=== PATIENT | female | born 1945 | race Caucasian/White ===

== ENCOUNTER 2024-01-31 09:19 | Emergency (ER) | payer MEDICARE, OTHER, SELFPAY ==
[2024-01-31 09:26] VITALS: BP 161/81; PULSE 62; RESP 18; TEMP 36.7; O2SAT 97; BMI 40.0
--- NOTE | 2024-01-31 09:43 | CRLHL7_ITS ---
For Patients: As a result of the Century Cures Act, medical imaging exams and procedure reports are released immediately into your electronic medical record. You may view this report before your referring provider. If you have questions, please contact your health care provider. Indication: Lateral hip pain. Technique: AP pelvis and 2 view(s) of the left hip. Comparison: None available. 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 Visualized hardware is intact. Left hip alignment is anatomic. No evidence of hardware complication. There is mild osseous irregularity at the greater trochanters without definite displaced fracture identified. Moderate degenerative changes of the pubic symphysis and sacroiliac joints. Severe lower lumbar degenerative disc disease. Partial sacralization of the right L5 transverse process. Impression: 1. No definite fracture identified. 2. Osseous irregularity of the greater trochanters is favored to be postoperative; however, comparison with prior postoperative imaging would be beneficial to determine stability of this finding. 3. Severe lower lumbar degenerative disc disease. Dictated by Florinda Chau MD @ 01/31/2024 10:35:03 AM (Electronically Signed)
--- NOTE | 2024-01-31 11:11 | ED_ITS ---
HPI - General Adult General Date Seen: 01/31/24 Chief complaint: Extremity Pain/Injury, Lower Stated complaint: LT leg pain Time Seen by Provider: 01/31/24 09:34 Source: patient Mode of arrival: ambulatory Limitations: no limitations History of Present Illness HPI narrative: Patient is a 78-year-old female presenting for left hip pain. She states the pain started this morning in starts in her left lateral hip and goes down to her knee. Denies having this kind of pain before but does states she has a history of pain around this area. She had a hip replacement done 2 years ago through [facility] and had to do physical therapy after that due to muscle weakness. She denies any injuries. She was also concerned because she has a recent tooth infection and was concerning could be in her hip to. States all pain is on the lateral aspect in is no groin pain. Denies fevers, chills, weakness. Has been able to ambulate. Pain is slightly improved so for this morning. Related Data Home Medications ?Medication ?Instructions ?Recorded ?Confirmed amitriptyline 25 mg tablet 25 mg PO QPM 01/31/24 01/31/24 ergocalciferol (vitamin D2) 1,250 1,250 mcg PO 01/31/24 mcg (50,000 unit) capsule levothyroxine 137 mcg tablet 137 mcg PO DAILY 01/31/24 01/31/24 lisinopril 10 1 tab PO DAILY 01/31/24 01/31/24 mg-hydrochlorothiazide 12.5 mg tablet metformin 1,000 mg tablet 1,000 mg PO BID 01/31/24 01/31/24 naproxen 500 mg tablet 500 mg PO BID PRN moderate pain 01/31/24 01/31/24 omeprazole 20 mg capsule,delayed 20 mg PO QPM 01/31/24 01/31/24 release Allergies Allergy/AdvReac Type Severity Reaction Status Date / Time doxycycline Allergy Verified 01/31/24 09:29 erythromycin base Allergy Verified 01/31/24 09:29 morphine Allergy Verified 01/31/24 09:29 Review of Systems Narrative: Pertinent systems reviewed and were negative unless stated in HPI PFSH PFSH Social History Smoking Status: Never smoker Do you use any of these nicotine containing products: None How often do you have a drink containing alcohol: never How often do you have six or more drinks on one occasion: Never AUDIT-C Alcohol total score: 0 Non-prescribed substance use: denies use service: No Exam Narrative: Exam Narrative: Const: Well-nourished, Well-developed, in mild distress Eyes: PERRL, no conjunctival injection, and symmetrical lids HENT: Atraumatic external nose and ears. Moist mucous membranes. MSK:Extremities w/o deformity, Normal Active ROM, tenderness all down the lateral aspect of the left leg. No groin tenderness, no posterior hip tenderness. Skin: Warm, Dry. No rashes or lesions. Neuro: Normal Muscle tone, No focal neurological deficits. Psych: Awake, Alert, & Oriented x3. Appropriate mood and affect. Const: Vital Signs, click to edit/add: Vital Signs - 24 hr 01/31/24 09:26 Temperature 98.1 F Pulse Rate [Right Pulse Oximeter] 62 Respiratory Rate 18 Blood Pressure [Ri ght Upper Arm] 161/81 H Pulse Oximetry 97 Oxygen Delivery Me thod Room Air Course Vital Signs Vital signs: Initial Vital Signs Temperature 98.1 F 01/31/24 09:26 Temperature Source Temporal Artery Scan 01/31/24 09:26 Pulse Rate 62 01/31/24 09:26 Respiratory Rate 18 01/31/24 09:26 Blood Pressure 161/81 H 01/31/24 09:26 Blood Pressure Mean 107 H 01/31/24 09:26 Blood Pressure Position Sitting 01/31/24 09:26 Pulse Oximetry 97 01/31/24 09:26 Oxygen Delivery Method Room Air 01/31/24 09:26 Vital Signs Temperature 98.1 F 01/31/24 09:26 Pulse Rate 62 01/31/24 09:26 Respiratory Rate 18 01/31/24 09:26 Blood Pressure 161/81 H 01/31/24 09:26 Pulse Oximetry 97 01/31/24 09:26 Oxygen Delivery Method Room Air 01/31/24 09:26 Temperature 98.1 F 01/31/24 09:26 Pulse Rate 62 01/31/24 09:26 Respiratory Rate 18 01/31/24 09:26 Blood Pressure 161/81 H 01/31/24 09:26 Pulse Oximetry 97 01/31/24 09:26 Oxygen Delivery Method Room Air 01/31/24 09:26 Medical Decision Making MDM Narrative Medical decision making narrative: Patient is a 78-year-old female presenting for lateral left thigh and hip pain. Since there is no specific pinpoint area of tenderness over the bursa, bursitis seems less likely. Considering his entire anterior lateral aspect of the leg this is likely ordered tensor fascial reyna syndrome. I will do an x-ray to better evaluate. Seems very unlikely to be in kind any hip joint issue as the pains all lateral and superficial. X-ray reviewed by myself and the radiologist just social os is irregular the greater trochanter is likely postoperative. Unable to compare to previous images. Patient is doing well at this time though and does states she is allowed to take ibuprofen home so I will inform her to take Tylenol and ibuprofen for pain and have close follow-up with her surgeon. She states she is agreeable to this plan. Imaging Data Left hip x-ray: Radiologist's impression: 1. No definite fracture identified. 2. Osseous irregularity of the greater trochanters is favored to be postoperative; however, comparison with prior postoperative imaging would be beneficial to determine stability of this finding. 3. Severe lower lumbar degenerative disc disease. 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 There likely refer you for physical therapy and stretching exercises. Take Tylenol and ibuprofen for pain. Ibuprofen specifically, along with other NSAIDs, well I believe help the most due to her anti-inflammatory effect. Return to emergency department for any new or worsening symptoms. Prescriptions: No Action levothyroxine 137 mcg tablet 137 mcg PO DAILY amitriptyline 25 mg tablet 25 mg PO QPM metformin 1,000 mg tablet 1,000 mg PO BID omeprazole 20 mg capsule,delayed release(DR/EC) 20 mg PO QPM ergocalciferol (vitamin D2) 1,250 mcg (50,000 unit) capsule 1,250 mcg PO lisinopril-hydrochlorothiazide 10-12.5 mg tablet 1 tab PO DAILY naproxen 500 mg tablet 500 mg PO BID PRN (Reason: moderate pain) Follow Up/Referrals: Herb Herman MD [Primary Care Provider] - Stand Alone Forms: [employer] Info Instructions
== END 2024-01-31 11:24 | disposition home or self-care (01) ==
PROVIDERS: Emergency Provider Student in an Organized Health Care Education/Training Program; PCP Family Medicine
DX: M76.32 Iliotibial band syndrome, left leg (principal)
CPT/HCPCS: 73502; 99282; 99283

== ENCOUNTER 2024-02-02 10:13 | Outpatient (REF) | payer MEDICARE, OTHER, SELFPAY ==
[2024-02-02 10:52] LABS: Basophils Absolute Auto 0.04 K/uL (0.00-0.30); Basophils Percent Auto 0.5 % (0.0-3.0); Eosinophils Absolute Auto 0.28 K/uL (0.00-0.50); Eosinophils Percent Auto 3.4 % (0.0-7.0); Hematocrit 41.1 % (33.0-51.0); Hemoglobin* 13.2 gm/dL (12.0-16.0); Immature Granulocytes Abs Auto 0.01 K/uL (0.00-0.30); Immature Granulocytes Pct Auto 0.1 %; Lymphocytes Absolute Auto 1.93 K/uL (0.90-2.90); Lymphocytes Percent Auto 23.3 % (20-44); Mean Corpuscular HGB Conc 32 gm/dL (32-36); Mean Corpuscular Hemoglobin 31 pg (26-34); Mean Corpuscular Volume 95 fL (80-100); Monocytes Percent Auto 6.1 % (0.0-11.0); Neutrophils Absolute Auto 5.53 K/uL (1.7-7.0); Neutrophils Percent Auto 66.6 % (42.0-72.0); Platelet Count* 160 K/uL (140-440); RDW Coefficient of Variation % 12.5 % (11.5-15.5); Red Blood Count 4.32 m/uL (4.00-5.20)
[2024-02-02 11:00] LABS: Slide Review Reflex No
[2024-02-02 11:19] LABS: C Reactive Protein* 0.6 mg/dL (0.5-1.0)
[2024-02-02 11:44] LABS: Erythrocyte SedimentationRate* 26 mm/hr (2-20)
== END 2024-02-02 10:14 | disposition home or self-care (01) ==
LOC: NPINS 10:13
PROVIDERS: PCP Family Medicine; Visit Provider Physician Assistant
DX: M25.559 Pain in unspecified hip (principal)
CPT/HCPCS: 85025; 85651; 86140

== ENCOUNTER 2024-10-02 10:00 | Observation (INO) | payer MEDICARE, OTHER, SELFPAY ==
--- OUTSIDE RECORDS SUMMARY | 2024-09-10 | XMS_ITS | Encounter Summary ---
Author Organization [facility] Address [address] [place] [address]. [place] [address] Care Team Providers Care Archives Technician Name Role Phone Herb Herman MD Primary Care Provider [phone] Herb Herman MD Unavailable Trent Qureshi MD Unavailable [phone] Encounter Details Date Type Department Care Team (Late st Contact Info) Description 09/10/2024 Ancillary Procedure [facility] External Imaging [address] [place] [phone] Non-Fv Credentialed Provider, Radiology Social History Tobacco [...] any clubs o r organizations such as pentecostalism groups, unions, fraternal or athletic groups, or [...] Answer Date Recorded PHQ-2 Score 0 05/02/2024 [facility] [...] in an abandoned building, in an overnight usp, or couch-surfing.) Yes 04/25/2023 Are you worried [...] AM CDT Legal Sex Female 3:11 AM COLLECTION ADVISOR Gender Identity Female 01/16/2019 8:38 AM CDT Sexual Orientation Choose not to disclose 2021 11:32 AM COLLECTION ADVISOR 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 file documented as of this encounter Plan of Treatment Upcoming Encounters Date Type Department Care Team (Late st Contact Info) Description 10/08/2024 1:30 PM CDT Therapy Visit [address] [phone] Sammy Villa MD [address] [place] [phone] Christopher Ge, PT 10/16/2024 9:20 AM CDT Therapy Visit [address] [phone] Sammy Villa MD [address] [place] [phone] Christopher Ge, PT 10/22/2024 11:40 AM CDT Therapy Visit [address] [phone] Sammy Villa MD [address] [place] [phone] Christopher Ge, PT documented as of this encounter Procedures Procedure [...] Total Score: 0 05/02/19 25 10:13 AM COLLECTION ADVISOR documented as of this encounter Care Teams Archives Technician Relationship Specialty [place] [address] [place] [address] PCP - General Family Medicine 12/24/20 [place] [address] [place] [address] Assigned PCP 01/04/21 Trent Qureshi MD [facility] [address] [place] [address] Orthopaedic Surgery 09/16/21 documented as of this encounter
--- OUTSIDE RECORDS SUMMARY | 2024-09-10 00:05 | XMS_ITS | Encounter Summary ---
Author Organization [place] Address [address] [place] [address]. [place] [address] Care Team Providers Care Residential Caregiver Name Role Phone Herb Herman MD Primary Care Provider [phone] Herb Herman MD Unavailable Trent Qureshi MD Unavailable [phone] Encounter Details Date Type Department Care Team (Late st Contact Info) Description 09/10/2024 12:05 AM CDT Ancillary Procedure [facility] External Imaging [address] [place] [phone] Non-Fv Credentialed Provider, Radiology Social History Tobacco [...] often do you attend chur ch or congregational services? 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 file documented as of this encounter Plan of Treatment Upcoming Encounters Date Type Department Care Team (Late st Contact Info) Description 10/08/2024 1:30 PM CDT Therapy Visit [address] [phone] Sammy Villa MD [address] [place] [id number] Christopher Ge, PT 10/16/2024 9:20 AM CDT Therapy Visit [address] [phone] Sammy Villa MD [address] [place] [address] Christopher Ge, PT 10/22/2024 11:40 AM CDT Therapy Visit [address] [phone] Sammy Villa MD [address] [place] [address] Christopher Ge PT documented as of this encounter Procedures Procedure Name Priority Date/Time Associated Diagnosis Comments XR EXTERNAL IMAGING SPINE Routine 09/10/2024 12:05 AM CDT documented in this encounter Results * XR External Imaging Spine (09/10/2024 12:05 AM CDT) Narrative Service Account, Ob Benny - 09/13/2024 12:24 PM CDT Images were [...] Total Score: 0 05/02/19 25 10:13 AM PAPER BAG MAKER documented as of this encounter Care Teams Residential Caregiver Relationship Specialty [place] [address] [place] [address] PCP - General Family Medicine 12/24/20 [place] [address] [place] [address] Assigned PCP 01/04/21 Trent Qureshi MD [facility] [address] [place] [address] Orthopaedic Surgery 09/16/21 documented as of this encounter
--- OUTSIDE RECORDS SUMMARY | 2024-09-19 14:20 | XMS_ITS | Encounter Summary ---
Author Organization [place] Address [address] [facility] [place] [address] Care Team Providers Care Barrel Handler Name Role Phone Herb Herman MD Primary Care Provider [phone] Herb Herman MD Unavailable Trent Qureshi MD Unavailable [phone] Reason for Referral * Consultation (Routine: Next available opening) - Pending Review Specialty Diagnoses / Procedures Referred By Contac t Referred To Contact Diagnoses Lumbar stenosis with neurogenic claudication Sammy Villa MD [address] [address] Phone: tel: fax: Referral ID Status Reason Start Date Expiration Date V isits Requested Visits Authorized [id number] Pending Review 09/19/2024 09/19/2025 1 1 Question Answer Referral Type: Procedure Procedure: Epidural (Advanced imaging required in the last 3 years) Location: Lumbar Injection Type: Interlaminar ARTHUR Level: L3-4 Has the patient had a CT or MRI of the area of concern within the last 12 months? Yes Patient Scheduling Instructions: Our [facility] Orthopedic Trolley Wire Installer team will contact you via phone, text, email or MyChart within 2 business days to help you schedule your appointment, or you may contact the Trolley Wire Installer Team at . Additional Information: L3-4 or L4-5 ARTHUR Comments Please be aware that coverage of these services is subject to the terms and limitations of your health insurance plan. Call member services at your health plan with any benefit or coverage questions. Our [facility] Orthopedic Trolley Wire Installer team will contact you via phone, text, email or MyChart within 2 business days to help you schedule your appointment, or you may contact the Trolley Wire Installer Team at . * Rehab Therapy Physical Therapy (Routine: Next available opening) - Pending Review Specialty Diagnoses / Procedures Referred By Ambreen allen Referred To Contact Diagnoses Lumbar stenosis with neurogenic claudication Sammy Villa MD [address] [facility] [address] [place] [address] Phone: tel: fax: Referral ID Status Reason Start Date Expiration Date V isits Requested Visits Authorized [id number] Pending Review 09/19/2024 09/19/2025 1 1 Question Answer Course of Action: Evaluation and Treatment Specialty Services: Per Associated Diagnosis Patient Scheduling Instructions: [facility] will call you to coordinate your care as prescribed by your provider. If you don't hear from a correspondence representative within 2 business days, please call . Comments Please be aware that coverage of these services is subject to the terms and limitations of your health insurance plan. Call member services at your health plan with any benefit or coverage questions. [facility] will call you to coordinate your care as prescribed by your provider. If you don't hear from a correspondence representative within 2 business days, please call . Reason for Visit * Reason Comments Consult Low back pain * Consultation (Routine: Next available opening) - Closed Specialty Diagnoses / Procedures Referred By Contac t Referred To Contact Orthopedics Diagnoses Low back pain Douglas Hernandez MD [facility] [address] [facility] [address] [place] [address] Phone: tel: fax: Referral ID Status Reason Start Date Expiration Date Visits Re quested Visits Authorized [id number] Closed 09/11/2024 09/11/2025 1 1 Encounter Details Date Type Department Care Team (Late st Contact Info) Description 09/19/2024 2:20 PM CDT Office Visit [facility] [place] [address] [facility] [address] [place] [phone] Douglas Hernandez MD [facility] [address] [place], [place] [address] Sammy Villa MD [address] [facility] [address] [facility] [address] [place], [place] [address] Lumbar stenosis with neurogenic claudication (Primary Dx); [...] How often do you attend chur or taoism services? More than 4 times per year 06/08/2021 Do you belong to any clubs o r organizations such as baptist groups, unions, fraternal or athletic groups, or [...] Answer Date Recorded PHQ-2 Score 0 05/02/2024 [place] [employer] Occupat ional Health - Occupational Stress [...] in an abandoned building, in an overnight residential, or couch-surfing.) Yes 04/25/2023 Are you worried [...] AM CDT Legal Sex Female 3:11 AM GOLF BALL MARKER Gender Identity Female 01/16/2019 8:38 AM CDT Sexual Orientation Choose not to disclose 2021 11:32 AM GOLF BALL MARKER Occupation Industry Job Start Date Job End [...] if symptoms persist after this timeframe. Our [facility] Trolley Wire Installer team will contact you via phone, text, email or MyChart within 2 business days to help you schedule your appointment, or you may contact the Trolley Wire Installer Team at . Order placed for physical therapy. You can call the phone number highlighted in the order to schedule your appointment. Please call our clinic if symptoms persist after your course of physical therapy. If you have not heard from the scheduling office within 2 business days, please call [phone] for [facility], for [place] and [phone] [facility]. Please call us if you have any further questions or concerns. [facility] documented in this encounter [...] Due to statin intolerance vitamin D2 (ERGOCALCIFEROL) 41730 units (1250 mcg) capsule TAKE ONE CAPSULE [...] Description 10/08/2024 1:30 PM CDT Therapy Visit [address] [phone] Sammy Villa MD [address] [address] Christopher Ge, PT 10/16/2024 9:20 AM CDT Therapy Visit [address] [address] Sammy Villa MD [address] [place] [address] Christopher Ge, PT 10/22/2024 11:40 AM CDT Therapy Visit [address] [phone] Sammy Villa MD [address] [place] [address] Christopher Ge, PT Scheduled Referrals Name Type Priority Associated Diagnoses Orde r Schedule Physical Therapy Trolley Wire Installer Referral Referral Routine: Next available opening Lumbar stenosis with neurogenic claudication Expected: 09/19/2024 (Approximate), Expires: 09/19/2025 Spine Trolley Wire Installer Referral Referral Routine: Next available opening Lumbar [...] Total Score: 0 05/02/19 25 10:13 AM GOLF BALL MARKER documented as of this encounter Care Teams Barrel Handler Relationship Specialty [place] [address] [place] [address] PCP - General Family Medicine 12/24/20 [place] [address] [facility] [place] [address] Assigned PCP 01/04/21 Trent Qureshi MD [facility] [address] [place] [address] Orthopaedic Surgery 09/16/21 documented as of this encounter
--- OUTSIDE RECORDS SUMMARY | 2024-09-26 10:15 | XMS_ITS | Encounter Summary ---
Author Organization [place] Address [facility] [place] [address] Care Team Providers Care Aircraft Engine Mechanic Name Role Phone Herb Herman MD Primary Care Provider [phone] Herb Herman MD Unavailable Trent Qureshi MD Unavailable [phone] Reason for Referral * Clinically Administered Medications (Routine) - Closed Specialty Diagnoses / Procedures Referred By Contac t Referred To Contact Diagnoses unknown [place] [address] [place] [address] Phone: tel: fax: Referral ID Status Reason Start Date Expiration Date Visits Re quested Visits Authorized [id number] Closed 09/26/2024 09/26/2025 1 1 Reason for Visit * Reason Comments Pain * Consultation (Routine: Next available opening) - Pending Review Specialty Diagnoses / Procedures Referred By Contac t Referred To Contact Diagnoses Lumbar stenosis with neurogenic claudication Sammy Villa MD [address] [facility] [address] [place] [address] Phone: tel: fax: Referral ID Status Reason Start Date Expiration Date V isits Requested Visits Authorized [id number] Pending Review 09/19/2024 09/19/2025 1 1 Encounter Details Date Type Department Care Team (Latest Contact Info) Description 09/26/2024 10:15 AM CDT Radiology Injection Office Visit [facility] [place] [address] [place] [address] [address] [place], [place] [address] Sammy Villa MD [address] [facility] [address] [place] [address] [place] [address] [place] [address] Lumbar radiculopathy (Primary Dx); Lumbar stenosis with [...] week 06/08/2021 How often do you attend [facility] or latter-day services? More than 4 times per year 06/08/2021 Do you belong to any clubs o r organizations such as faith groups, unions, fraternal or athletic groups, or [...] Answer Date Recorded PHQ-2 Score 0 05/02/2024 [facility] [place] of Occupat ional Health - Occupational Stress [...] in an abandoned building, in an overnight half-way, or couch-surfing.) Yes 04/25/2023 Are you worried [...] AM CDT Legal Sex Female 3:11 AM MEDICAL RECEPTION SPECIALIST Gender Identity Female 01/16/2019 8:38 AM CDT Sexual Orientation Choose not to disclose 2021 11:32 AM MEDICAL RECEPTION SPECIALIST Occupation Industry Job Start Date Job End [...] Velazquez RN - 09/26/2024 10:15 AM CDT [facility] Procedure Discharge Instructions Today [...] pain center line during work hours at [phone] on-call physician after hours at [phone]: -Fever over 100 degree F -Swelling, bleeding, [...] from the original note were not included. [facility] Pain Management Center - [...] the procedure. Diagnosis: Lumbar spondylosis; Lumbar radiculitis/radiculopathy Primary Therapist: Daniel Dunlap MD Anesthesia: none Indications: Angela [...] 7.1 MRI LUMBAR SPINE was done @ [facility] on 02/15/2024 and was reviewed - [...] any questions or NO to having a transit mixer driver Please complete laminated checklist and leave [...] oral steroids? NO Do you have a transit mixer driver? Yes Are you or ? Not Applicable Have you received any vaccinations in the last week? NO Vitals: B/P 172/78 Manual Recheck: B/P 148/68 Notify provider and RNs if systolic BP >170, diastolic BP >100, P >100 or O2 sats < 90% Mikala Staley MA [facility] * Ruma Velazquez [...] Yes Signature/Title: Ruma R Yelle, RN RN Sewer And Inspector [facility] [place] documented in this encounter Plan of Treatment Upcoming Encounters Date Type Department Care Team (Late st Contact Info) Description 10/08/2024 1:30 PM CDT Therapy Visit [address] [phone] Sammy Villa MD [address] [place] [address] Christopher Ge, PT 10/16/2024 9:20 AM CDT Therapy Visit [address] [address] Sammy Villa MD [address] [place] [address] Christopher Ge, PT 10/22/2024 11:40 AM CDT Therapy Visit [address] [address] Sammy Villa MD [address] [place] [address] Christopher Ge, PT documented as of this [...] from the original result were not included. [facility] Pain Management Center - [...] the procedure. Diagnosis: Lumbar spondylosis; Lumbar radiculitis/radiculopathy Primary Therapist: Daniel Dunlap MD Anesthesia: none Indications: Angela [...] evaluation. DANIEL DUNLAP MD Pain Management Daniel uDnlap MD IM PAIN MANAGEMENT ORDERABLES Final Result documented in [...] Depression Total Score: 0 05/02/19 10:13 AM MEDICAL RECEPTION SPECIALIST documented as of this encounter Care Teams Aircraft Engine Mechanic Relationship Specialty [place] [address] [place] [address] PCP - General Family Medicine 12/24/20 [place] [address] [place] [address] Assigned PCP 01/04/21 Trent Qureshi MD [facility] [address] [place] [address] Orthopaedic Surgery 09/16/21 documented as of this encounter
[2024-10-02] VITALS (24 sets, daily range): BP systolic 147–188; BP diastolic 60–76; PULSE 53–74; RESP 16–20; TEMP 36.3–37.1; O2SAT 96–99; BMI 39.1
--- NOTE | 2024-10-02 10:15 | CRLHL7_ITS ---
For Patients: As a result of the Century Cures Act, medical imaging exams and procedure reports are released immediately into your electronic medical record. You may view this report before your referring provider. If you have questions, please contact your health care provider. INDICATION: Lightheadedness. TECHNIQUE: Noncontrast CT of the head with multiplanar reconstruction utilizing bone and soft tissue algorithms. COMPARISON: None available. FINDINGS: No acute intracranial hemorrhage. The melgar-white matter interface is preserved. The ventricles are normal in size. No abnormal extra-axial fluid collection is identified. Normal calvarium and skull base. Unremarkable orbits. The paranasal sinuses and mastoid air cells are clear. IMPRESSION: No acute intracranial abnormality. Please note that all CT scans at this facility use dose modulation, iterative reconstruction, and/or weight-based dosing when appropriate to reduce radiation dose to as low as reasonably achievable. Dictated by Hao Petersen MD @ 10/02/2024 10:46:40 AM (Electronically Signed)
--- OUTSIDE RECORDS SUMMARY | 2024-10-02 10:33 | XMS_ITS | Encounter Summary ---
Author Organization [place] Address [address] [place] [address] Care Team Providers Care Interventional Tech Name Role Phone Daniel Plaza MD Primary Care Provider Daniel Plaza MD Unavailable Daniel Plaza MD Unavailable Stan Barnes MD Unavailable [phone] Herb Herman MD Primary Care Provider [phone] Herb Herman MD Unavailable Stan Barnes MD Unavailable [phone] Trent Qureshi MD Unavailable [phone] Encounter Details Date Type Department Care Team (Late st Contact Info) Description 06/23/2011 [facility] [place] Medical Advice [address] [address] Daniel Plaza MD [address] [place] [address] Social History Tobacco Use Types Packs/Day Years Used Date Smoking Tobacco: Never Smokeless Tobacco: Never Alcohol Use Standard Drinks/Week Comments No 0 (1 standard drink = 0.6 oz pur e alcohol) Comments No Sex and Gender Information Value Date Recorded Sex Assigned at Female 01/16/2019 8:38 AM CDT Legal Sex Female 3:11 AM EXPLOSIVE ORDNANCE DISPOSAL TECHNICIAN Gender Identity Female 01/16/2019 8:38 AM CDT Sexual Orientation Choose not to disclose 2021 11:32 AM EXPLOSIVE ORDNANCE DISPOSAL TECHNICIAN documented as of this encounter Plan of Treatment Upcoming Encounters Date Type Department Care Team (Late st Contact Info) Description 10/08/2024 1:30 PM CDT Therapy Visit [address] [address] Sammy Villa MD [address] [place] [address] Christopher Ge, PT 10/16/2024 9:20 AM CDT Therapy Visit [address] [address] Sammy Villa MD [address] [place] [address] Christopher Ge, PT 10/22/2024 11:40 AM CDT Therapy Visit [address] [address] Sammy Villa MD [address] [place] [address] Christopher Ge, PT documented as of this encounter Visit Diagnoses Not on filedocumented in this encounter Care Teams Interventional Tech Relationship Specialty Start Date End Date Daniel Plaza MD [address] [place] [phone] PCP - General 06/29/10 12/23/20 Daniel Plaza MD [address] [place] [phone] PCP - Assigned PCP 02/05/08 06/13/18 [place] [address] [place] [address] PCP - General Family Medicine 12/24/20 Daniel Plaza MD [address] [place] [phone] Assigned PCP 01/13/12 01/03/21 Stan Barnes MD [address] [place] [address] Assigned Surgical Provider 02/01/20 07/19/20 [place] [address] [place] [address] Assigned PCP 01/04/21 Stan Barnes MD [address] [place] [address] Assigned Surgical Provider 08/30/21 08/31/23 Trent Qureshi MD [facility] [address] [place] [address]405 Orthopaedic Surgery 09/16/21 documented as of this encounter
--- OUTSIDE RECORDS SUMMARY | 2024-10-02 10:33 | XMS_ITS | Encounter Summary ---
Author Organization [place] Address [address] [place] [address] Care Team Providers Care Spring Coiler Name Role Phone Daniel Torres MD Primary Care Provider Daniel Torres MD Unavailable Daniel Torres MD Unavailable Stan Barnes MD Unavailable [phone] Herb Herman MD Primary Care Provider Herb Herman MD Unavailable Stan Barnes MD Unavailable [phone] Trent Qureshi MD Unavailable [phone] Encounter Details Date Type Department Care Team (Late st Contact Info) Description 09/08/[address] [address] Daniel Torres MD [address] [place] [address] DJD ; HYPERLIPIDEMIA Social History Tobacco Use Types Packs/Day Years Used Date Smoking Tobacco: Never Alcohol Use Standard Drinks/Week Comments Yes 0 (1 standard drink = 0.6 oz pur e alcohol) social Comments No Sex and Gender Information Value Date Recorded Sex Assigned at Female 01/16/2019 8:38 AM CDT Legal Sex Female 3:11 AM PRINCIPAL CONSULTING ENGINEER Gender Identity Female 01/16/2019 8:38 AM CDT Sexual Orientation Choose not to disclose 2021 11:32 AM PRINCIPAL CONSULTING ENGINEER documented as of this encounter Miscellaneous Notes * Telephone Encounter - Vero Carr - 09/08/2007 2:01 PM [facility] Original authorizing provider: Savanna VILLALOBOS would like a refill of the following medications: SIMVASTATIN 80 MG OR TABS [DANIEL TORRES M.D.] CELEBREX 200 MG OR CAPS [DANIEL TORRES M.D.] Preferred pharmacy: [facility] Comment: I have requested my medications for the past two days. I have not received a response. With the weekend coming it sometimes takes longer for the pharmacy to fill the prescription. Please advise documented in this encounter Plan of Treatment Upcoming Encounters Date Type Department Care Team (Late st Contact Info) Description 10/08/2024 1:30 PM CDT Therapy Visit [address] [phone] Sammy Villa MD [address] [place] [address] Christopher Ge, PT 10/16/2024 9:20 AM CDT Therapy Visit [address] [address] Sammy Villa MD [address] [place] [address] Christopher Ge, PT 10/22/2024 11:40 AM CDT Therapy Visit [address] [phone] Sammy Villa MD 420 [facility] [address] [place], [place] [address] Christopher Ge, PT documented as of this encounter Visit Diagnoses Diagnosis DJD Generalized osteoarthrosis, unspecified site HYPERLIPIDEMIA Other and unspecified hyperlipidemia documented in this encounter Care Teams Spring Coiler Relationship Specialty Start Date End Date Daniel Torres MD [address] [place] [phone] PCP - General 06/29/10 12/23/20 Daniel Torres MD [address] [place] [phone] PCP - Assigned PCP 02/05/08 06/13/18 [place] [address] [place] [address] PCP - General Family Medicine 12/24/20 Daniel Torres MD [address] [place] [phone] Assigned PCP 01/13/12 01/03/21 Stan Barnes MD [address] [place] [address] Assigned Surgical Provider 02/01/20 07/19/20 [place] [address] [place] [address] Assigned PCP 01/04/21 Stan Barnes MD [address] [place] [address] Assigned Surgical Provider 08/30/21 08/31/23 Trent Qureshi MD [facility] [address] [place] [address] [phone] Orthopaedic Surgery 09/16/21 documented as of this encounter
--- OUTSIDE RECORDS SUMMARY | 2024-10-02 10:33 | XMS_ITS | Encounter Summary ---
Author Organization [place] Address [address] [place] [address] Care Team Providers Care Casting Associate Name Role Phone Daniel Plaza MD Primary Care Provider Daniel Plaza MD Unavailable [phone] Daniel Plaza MD Unavailable Stan Barnes MD Unavailable [phone] Herb Herman MD Primary Care Provider [phone] Herb Herman MD Unavailable Stan Barnes MD Unavailable [phone] Trent Stratton MD Unavailable [phone] Encounter Details Date Type Department Care Team (Late st Contact Info) Description 03/01/[address] [phone] Daniel Plaza MD [address] [place] [address] OP REPT (Primary Dx) Social History Tobacco Use Types Packs/Day Years Used Date Smoking Tobacco: Never Passive Smoke Exposure: Never Smokeless Tobacco: Never Alcohol Use Standard Drinks/Week Comments Never 0 (1 standard drink = 0.6 oz pur e alcohol) Comments No Sex and Gender Information Value Date Recorded Sex Assigned at Female 01/16/2019 8:38 AM CDT Legal Sex Female 3:11 AM POT OPERATOR Gender Identity Female 01/16/2019 8:38 AM CDT Sexual Orientation Choose not to disclose 2021 11:32 AM POT OPERATOR 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 POSTOPERATIVE DIAGNOSIS:Right knee degenerative joint disease. OPERATION :Right total knee arthroplasty. ANESTHESIA:Regional. COMPLICATIONS:None. HISTORY: Ms. Michael Lamar is a 57-year-old woman with right knee pain. Risks and alternatives were discussed with her, and she wished to proceed with the above-named procedure. All questions were answered, and consent was obtained. OPERATIVE COURSE: The patient was brought to the operating room where an anes thetic was placed. The right lower extremity was prepped and draped in the usual sterile fashion. I made a sharp incision straight anterior, and took a parapatellar median approach. I was not able to demario the patella. I therefore did a lateral release, and everted the patella. There was eburnated bone in the medial compartment. I went ahead and prepared the femoral side for a 65, and a 65 fit ni nicole. I prepared the tibia. I took 4 mm of bone from the medial side, which approximated 10 mm of b one from the lateral side. I made the cut. I preserved the PCL. I went ahead and performed trial re ductions. I liked a 67 baseplate the best. It came out into full extension with a 12, but was a lit tle bit tight as we flexed it. I therefore cemented my final components with a [address] I prepa red the patella. I initially measured a 20, and I cut it down to a 14, and placed a 31 button. I ce mented my final components with the [address]. I trialed a 12 and a 10, and I liked the 10 the bes t. It was stable in full extension, and easily flexed. I copiously irrigated. I placed a large franck in deeply. Ethibond was used in the medial parapatellar incision, 2-0 in the subcutaneous tissue, an d john in the skin. A bulky sterile dressing was applied. The patient tolerated the procedure we ll, and was returned to the recovery room in stable condition. All sponge and needle counts were correct at the end of the procedure. There were no known complications. TRENT STRATTON MD D: 06:24 MT: sb Document: [id number] [place], [place] Name: MICHAEL LAMAR OPERATIVE REPORT Page 2 of 2 LCN: [id number] DSC: [place], [place] Name: MICHAEL LAMAR MR#: : Procedure Date: [id number] 03/01/2003 Surgeon: TRENT STRATTON MD OPERATIVE REPORT Page 1 of 2 Electronically filed by Hu Porter 03/06/2003 10:43 AM documented in this encounter Plan of Treatment Upcoming Encounters Date Type Department Care Team (Late st Contact Info) Description 10/08/2024 1:30 PM CDT Therapy Visit [address] [address] Sammy Villa MD [address] [place] [address] Christopher Ge, PT 10/16/2024 9:20 AM CDT Therapy Visit [address] [address] Sammy Villa MD [address] [address] Christopher Ge, PT 10/22/2024 11:40 AM CDT Therapy Visit [facility] [address] [facility] [address] [place] [phone] Sammy Villa MD 420 [facility] 96 [place] [address] Christopher Ge, PT documented as of this encounter Visit Diagnoses Diagnosis OP REPT- Primary documented in this encounter Care Teams Casting Associate Relationship Specialty Start Date End Date Daniel Plaza MD [address] [place] [phone] PCP - General 06/29/10 12/23/20 Daniel Plaza MD [address] [place] [phone] PCP - Assigned PCP 02/05/08 06/13/18 [place] [address] [place] [address] PCP - General Family Medicine 12/24/20 aDniel Plaza MD [address] [place] [phone] Assigned PCP 01/13/12 01/03/21 Stan Barnes MD [address] [place] [address] Assigned Surgical Provider 02/01/20 07/19/20 [place] [address] [place] [address] Assigned PCP 01/04/21 Stan Barnes MD [address] [place] [address] 184375 Assigned Surgical Provider 08/30/21 08/31/23 Trent Stratton MD [facility] [address] [place] [address] 727355 Orthopaedic Surgery 09/16/21 documented as of this encounter
--- OUTSIDE RECORDS SUMMARY | 2024-10-02 10:33 | XMS_ITS | Encounter Summary ---
Author Organization [place] Address [address] [place] [address] Care Team Providers Care Senior Storage Engineer Name Role Phone Daniel Plaza MD Primary Care Provider Daniel Plaza MD Unavailable Daniel Plaza MD Unavailable Stan Barnes MD Unavailable [phone] Herb Herman MD Primary Care Provider Herb Herman MD Unavailable Stan Barnes MD Unavailable [phone] Trent Qureshi MD Unavailable [phone] Encounter Details Date Type Department Care Team (Late st Contact Info) Description 01/31/2006 [facility] [place] [address] [address] Daniel Plaza MD [address] [place] [phone] Social History Tobacco Use Types Packs/Day Years Used Date Smoking Tobacco: Never Alcohol Use Standard Drinks/Week Comments Yes 0 (1 standard drink = 0.6 oz pur e alcohol) social Comments No Sex and Gender Information Value Date Recorded Sex Assigned at Female 01/16/2019 8:38 AM CDT Legal Sex Female 3:11 AM DESIGN CENTER CONSULTANT Gender Identity Female 01/16/2019 8:38 AM CDT Sexual Orientation Choose not to disclose 2021 11:32 AM DESIGN CENTER CONSULTANT documented as of this encounter Plan of Treatment Upcoming Encounters Date Type Department Care Team (Late st Contact Info) Description 10/08/2024 1:30 PM CDT Therapy Visit [address] [address] Sammy Villa MD [address] [place] [address] Christopher Ge, PT 10/16/2024 9:20 AM CDT Therapy Visit [address] [address] Sammy Villa MD [address] [place] [address] Christopher Ge, PT 10/22/2024 11:40 AM CDT Therapy Visit [address] [address] Sammy Villa MD [address] [place] [address] Christopher Ge, PT documented as of this encounter Visit Diagnoses Not on filedocumented in this encounter Care Teams Senior Storage Engineer Relationship Specialty Start Date End Date Daniel Plaza MD [address] [place] [address] PCP - General 06/29/10 12/23/20 Daniel Plaza MD [address] [place] [phone] PCP - Assigned PCP 02/05/08 06/13/18 [place] [address] [place] [address] PCP - General Family Medicine 12/24/20 Daniel Plaza MD [address] [place] [phone] Assigned PCP 01/13/12 01/03/21 Stan Barnes MD [address] [place] [address] Assigned Surgical Provider 02/01/20 07/19/20 [place] [address] [place] [address] Assigned PCP 01/04/21 Stan Barnes MD [address] [place] [address] Assigned Surgical Provider 08/30/21 08/31/23 Trent Qureshi MD [facility] [address] [place] [address] 681105 Orthopaedic Surgery 09/16/21 documented as of this encounter
--- OUTSIDE RECORDS SUMMARY | 2024-10-02 10:33 | XMS_ITS | Encounter Summary ---
Author Organization [place] Address [address] [place] [address] Care Team Providers Care Used Equipment Sales Representative Name Role Phone Daniel Plaza MD Primary Care Provider Daniel Plaza MD Unavailable Daniel Plaza MD Unavailable [phone] Stan Barnes MD Unavailable [phone] Herb Herman MD Primary Care Provider [phone] Herb Herman MD Unavailable Stan Barnes MD Unavailable [phone] Trent Qureshi MD Unavailable [phone] Encounter Details Date Type Department Care Team (Latest Contact Info) Description 01/24/2016 [facility] [place] Medical Advice [address] [phone] Daniel Plaza MD [address] [place] [phone] Spinal stenosis of lumbar region with neurogenic claudication (Primary Dx) Social History Tobacco Use Types Packs/Day Years Used Date Smoking Tobacco: Never Smokeless Tobacco: Never Alcohol Use Standard Drinks/Week Comments No 0 (1 standard drink = 0.6 oz pur e alcohol) Comments No Sex and Gender Information Value Date Recorded Sex Assigned at Female 01/16/2019 8:38 AM CDT Legal Sex Female 3:11 AM BEZEL CUTTER Gender Identity Female 01/16/2019 8:38 AM CDT Sexual Orientation Choose not to disclose 2021 11:32 AM BEZEL CUTTER documented as of this encounter Plan of Treatment Upcoming Encounters Date Type Department Care Team (Late st Contact Info) Description 10/08/2024 1:30 PM CDT Therapy Visit [address] [phone] Sammy Villa MD [address] [address] Christopher Ge, PT 10/16/2024 9:20 AM CDT Therapy Visit [address] [address] Sammy Villa MD [address] [place] [address] Christopher Ge, PT 10/22/2024 11:40 AM CDT Therapy Visit [address] [address] Sammy Villa MD [address] [place] [address] Christopher Ge, PT documented as of this encounter Visit Diagnoses Diagnosis Spinal stenosis of lumbar region with neurogenic claudication- Primary Spinal stenosis, lumbar region, with neurogenic claudication documented in this encounter Additional Health Concerns Assessment Noted Time PHQ-9 Depression Total Score: 0 12/23/19 16 7:14 AM CDT documented as of this encounter Care Teams Used Equipment Sales Representative Relationship Specialty Start Date End Date Daniel Plaza MD [address] [place] [phone] PCP - General 06/29/10 12/23/20 Daniel Plaza MD [address] [place] [phone] PCP - Assigned PCP 02/05/08 06/13/18 [place] [address] [place] [address] PCP - General Family Medicine 12/24/20 Daniel Plaza MD [address] [place] [phone] Assigned PCP 01/13/12 01/03/21 Stan Barnes MD [address] [place] [address] Assigned Surgical Provider 02/01/20 07/19/20 [place] [address] [place] [address] Assigned PCP 01/04/21 Stan Barnes MD [address] [place] [address] Assigned Surgical Provider 08/30/21 08/31/23 Trent Qureshi MD [facility] [address] [place] [address] Orthopaedic Surgery 09/16/21 documented as of this encounter
--- OUTSIDE RECORDS SUMMARY | 2024-10-02 10:33 | XMS_ITS | Encounter Summary ---
Author Organization [place] Address [address] [place] [address] Care Team Providers Care Community Health Advisor Name Role Phone Daniel Plaza MD Primary Care Provider Daniel Plaza MD Unavailable [phone] Daniel Plaza MD Unavailable [phone] Stan Barnes MD Unavailable [phone] Herb Herman MD Primary Care Provider Herb Herman MD Unavailable Stan Barnes MD Unavailable [phone] Trent Qursehi MD Unavailable [phone] Encounter Details Date Type Department Care Team (Late st Contact Info) Description 03/01/2011 [facility] [address] [address] Rodolfo Cline Social History Tobacco Use Types Packs/Day Years Used Date Smoking Tobacco: Never Alcohol Use Standard Drinks/Week Comments No 0 (1 standard drink = 0.6 oz pur e alcohol) Comments No Sex and Gender Information Value Date Recorded Sex Assigned at Female 01/16/2019 8:38 AM CDT Legal Sex Female 3:11 AM COTTON HEADER Gender Identity Female 01/16/2019 8:38 AM CDT Sexual Orientation Choose not to disclose 2021 11:32 AM COTTON HEADER documented as of this encounter Plan of Treatment Upcoming Encounters Date Type Department Care Team (Late st Contact Info) Description 10/08/2024 1:30 PM CDT Therapy Visit [place] [phone] [address] [address] Sammy Villa MD [address] [address] Christopher Ge, PT 10/16/2024 9:20 AM CDT Therapy Visit [address] [address] Sammy Villa MD [address] [address] Christopher Ge, PT 10/22/2024 11:40 AM CDT Therapy Visit [address] [phone] Sammy Villa MD [address] [place] [address] Christopher Ge, PT documented as of this encounter Visit Diagnoses Not on filedocumented in this encounter Care Teams Community Health Advisor Relationship Specialty Start Date End Date Daniel Plaza MD [address] [place] [phone] PCP - General 06/29/10 12/23/20 Daniel Plaza MD [address] [place] [phone] PCP - Assigned PCP 02/05/08 06/13/18 [place] [address] [place] [address] PCP - General Family Medicine 12/24/20 Daniel Plaza MD [address] [place] [phone] Assigned PCP 01/13/12 01/03/21 Stan Barnes MD [address] [place] [address] Assigned Surgical Provider 02/01/20 07/19/20 [place] [address] [place] [address] Assigned PCP 01/04/21 Stan Barnes MD [address] [place] [address] Assigned Surgical Provider 08/30/21 08/31/23 Trent Qureshi MD [facility] [address] [place] [address] Orthopaedic Surgery 09/16/21 documented as of this encounter
--- OUTSIDE RECORDS SUMMARY | 2024-10-02 10:33 | XMS_ITS | Encounter Summary ---
Author Organization [place] Address [address] [place] [address] Care Team Providers Care Surgery Teacher Name Role Phone Daniel Plaza MD Primary Care Provider Daniel Plaza MD Unavailable Daniel Plaza MD Unavailable [phone] Stan Barnes MD Unavailable [phone] Herb Herman MD Primary Care Provider Herb Herman MD Unavailable Stan Barnes MD Unavailable [phone] Trent Qureshi MD Unavailable [phone] Encounter Details Date Type Department Care Team (Late st Contact Info) Description 05/18/2007 MyC Medical Advice [address] [phone] Daniel Plaza MD [address] [place] [phone] Social History Tobacco Use Types Packs/Day Years Used Date Smoking Tobacco: Never Alcohol Use Standard Drinks/Week Comments Yes 0 (1 standard drink = 0.6 oz pur e alcohol) social Comments No Sex and Gender Information Value Date Recorded Sex Assigned at Female 01/16/2019 8:38 AM CDT Legal Sex Female 3:11 AM SPORTS APPAREL INTERNSHIP Gender Identity Female 01/16/2019 8:38 AM CDT Sexual Orientation Choose not to disclose 2021 11:32 AM SPORTS APPAREL INTERNS[employer]IP documented as of this encounter Plan of Treatment Upcoming Encounters Date Type Department Care Team (Late st Contact Info) Description 10/08/2024 1:30 PM CDT Therapy Visit [address] [address] Sammy Villa MD [address] [place] [address] Christopher Ge, PT 10/16/2024 9:20 AM CDT Therapy Visit [address] [phone] Sammy Villa MD [address] [place] [address] Christopher Ge, PT 10/22/2024 11:40 AM CDT Therapy Visit [address] [address] Sammy Villa MD [address] [place] [address] Christopher Ge, PT documented as of this encounter Visit Diagnoses Not on filedocumented in this encounter Care Teams Surgery Teacher Relationship Specialty Start Date End Date Daniel Plaza MD [address] [place] [address] PCP - General 06/29/10 12/23/20 Daniel Plaza MD [address] [place] [phone] PCP - Assigned PCP 02/05/08 06/13/18 [place] [address] [place] [address] PCP - General Family Medicine 12/24/20 Daniel Plaza MD [address] [place] [phone] Assigned PCP 01/13/12 01/03/21 Stan Barnes MD [address] [place] [address] Assigned Surgical Provider 02/01/20 07/19/20 [place] [address] [place] [address] Assigned PCP 01/04/21 Stan Barnse MD [address] [place] [address] Assigned Surgical Provider 08/30/21 08/31/23 Trent Qureshi MD [facility] [address] [place] [address] 035555 Orthopaedic Surgery 09/16/21 documented as of this encounter
--- OUTSIDE RECORDS SUMMARY | 2024-10-02 10:33 | XMS_ITS | Encounter Summary ---
Author Organization [place] Address [address] [place] [address] Care Team Providers Care Stagecraft Teacher Name Role Phone Daniel Plaza MD Primary Care Provider Daniel Plaza MD Unavailable [phone] Daniel Plaza MD Unavailable [phone] Stan Barnes MD Unavailable [phone] Herb Herman MD Primary Care Provider Herb Herman MD Unavailable Stan Barnes MD Unavailable [phone] Trent Qureshi MD Unavailable [phone] Encounter Details Date Type Department Care Team (Late st Contact Info) Description 11/21/2001 Abstract M [address] [phone] Daniel Plaza MD [address] [place] [phone] Social History Tobacco Use Types Packs/Day Years Used Date Smoking Tobacco: Never Assessed Comments No Sex and Gender Information Value Date Recorded Sex Assigned at Female 01/16/2019 8:38 AM CDT Legal Sex Female 3:11 AM SHIELD CLEANER Gender Identity Female 01/16/2019 8:38 AM CDT Sexual Orientation Choose not to disclose 2021 11:32 AM SHIELD CLEANER documented as of this encounter Plan of Treatment Upcoming Encounters Date Type Department Care Team (Late st Contact Info) Description 10/08/2024 1:30 PM CDT Therapy Visit [address] [address] Sammy Villa MD [address] [place] [address] Christopher Ge, PT 10/16/2024 9:20 AM CDT Therapy Visit [address] [address] Sammy Villa MD [address] [place] [address] Christopher Ge, PT 10/22/2024 11:40 AM CDT Therapy Visit [address] [address] Sammy Villa MD [address] [place] [address] Christopher Ge, PT documented as of this encounter Visit Diagnoses Not on filedocumented in this encounter Care Teams Stagecraft Teacher Relationship Specialty Start Date End Date Daniel Plaza MD [address] [place] [phone] PCP - General 06/29/10 12/23/20 Daniel Plaza MD [address] [place] [phone] PCP - Assigned PCP 02/05/08 06/13/18 [place] [address] [place] [address] PCP - General Family Medicine 12/24/20 Daniel Plaza MD [address] [place] [phone] Assigned PCP 01/13/12 01/03/21 Stan Barnes MD [address] [place] [address] Assigned Surgical Provider 02/01/20 07/19/20 [place] [address] [place] [address] Assigned PCP 01/04/21 Stan Barnes MD [address] [place] [address] Assigned Surgical Provider 08/30/21 08/31/23 Trent Qureshi MD [facility] [address] [place] [address] Orthopaedic Surgery 09/16/21 documented as of this encounter
--- OUTSIDE RECORDS SUMMARY | 2024-10-02 10:33 | XMS_ITS | Encounter Summary ---
Author Organization [place] Address [address] [place] [address] Care Team Providers Care Cause Analyst Name Role Phone Daniel Plaza MD Primary Care Provider Daniel Plaza MD Unavailable Daniel Plaza MD Unavailable [phone] Stan Barnes MD Unavailable [phone] Herb Herman MD Primary Care Provider [phone] Herb Herman MD Unavailable Stan Barnes MD Unavailable [phone] Trent Qureshi MD Unavailable [phone] Encounter Details Date Type Department Care Team (Late st Contact Info) Description 11/28/2001 Abstract M [address] [phone] Daniel Plaza MD [address] [place] [phone] Social History Tobacco Use Types Packs/Day Years Used Date Smoking Tobacco: Never Assessed Comments No Sex and Gender Information Value Date Recorded Sex Assigned at Female 01/16/2019 8:38 AM CDT Legal Sex Female 3:11 AM ENGLISH LECTURER Gender Identity Female 01/16/2019 8:38 AM CDT Sexual Orientation Choose not to disclose 2021 11:32 AM ENGLISH LECTURER documented as of this encounter Plan of Treatment Upcoming Encounters Date Type Department Care Team (Late st Contact Info) Description 10/08/2024 1:30 PM CDT Therapy Visit [address] [address] Sammy Villa MD [address] [place] [address] Christopher Ge, PT 10/16/2024 9:20 AM CDT Therapy Visit [address] [address] Sammy Villa MD [address] [place] [address] Christopher Ge, PT 10/22/2024 11:40 AM CDT Therapy Visit [address] [address] Sammy Villa MD [address] [place] [address] Christopher Ge, PT documented as of this encounter Visit Diagnoses Not on filedocumented in this encounter Care Teams Cause Analyst Relationship Specialty Start Date End Date Daniel Plaza MD [address] [place] [phone] PCP - General 06/29/10 12/23/20 Dnaiel Plaza MD [address] [place] [phone] PCP - Assigned PCP 02/05/08 06/13/18 [place] [address] [place] [address] PCP - General Family Medicine 12/24/20 Daniel Plaza MD [address] [place] [phone] Assigned PCP 01/13/12 01/03/21 Stan Barnes MD [address] [place] [address] Assigned Surgical Provider 02/01/20 07/19/20 [place] [address] [place] [address] Assigned PCP 01/04/21 Stan Barnes MD [address] [place] [address] Assigned Surgical Provider 08/30/21 08/31/23 Trent Qureshi MD [facility] [address] [place] [address] Orthopaedic Surgery 09/16/21 documented as of this encounter
--- OUTSIDE RECORDS SUMMARY | 2024-10-02 10:34 | XMS_ITS | Encounter Summary ---
Author Organization [place] Address [address] [place] [address]. [place] [address] Care Team Providers Care Pusher Operator Name Role Phone Herb Herman MD Primary Care Provider [phone] Herb Herman MD Unavailable Stan Barnes MD Unavailable [phone] Trent Qureshi MD Unavailable [phone] Encounter Details Date Type Department Care Team (Late st Contact Info) Description 08/04/2021 MyC Medical Advice [facility] [phone] [place] [phone] [place] [address] [place] [address] Social History Tobacco Use Types Packs/Day Years [...] week 06/08/2021 How often do you attend [facility] or yarsani services? More than 4 times [...] more drinks on one occasion? Never 06/08/2021 Overall Financial Resource Strain (CARDIA) Answe r Date Recorded How hard is it for you to pa y for the very basics like food, housing, medical care, and heating? Not hard at all 06/08/2021 PHQ-2 Answer Date Recorded PHQ-2 Score 0 06/24/2021 [facility] - Occupational Stress Questionnaire Answer Date Recorded [...] exercise at this level? 0 min 06/08/2021 Hunger Vital Sign Answer Date Recorded Within the past 12 months, y ou worried that your food would run out before you got the money to buy more. Never true 06/08/19 22 Within the past 12 months, t he food you bought just didn't last and you didn't have money to get more. Never true 06/08/2021 [facility] - Transportation Answer Date Re corded In the past 12 months, has l ack of transportation kept you from medical appointments or from getting medications? No 05/13 In the past 12 months, has l ack of transportation kept you from meetings, work, or from getting things needed for daily living? No 06/08/2021 Housing Stability Vital Sign Answer Mehrdad e Recorded In the last 12 months, was t here a time when you were not able to pay the mortgage or rent on time? No 06/08/2021 In the last 12 months, how many places have you lived? 1 06/08/2021 In the last 12 months, was t here a time when you did not have a steady place to sleep or slept in a custodial (including now)? 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 No / Unsure 08/03/2021 10:29 AM CDT documented as of this encounter Miscellaneous Notes * Telephone Encounter - Julienne Riddle RN - 08/05/2021 7:16 AM CDT documented in this encounter Plan of Treatment Upcoming Encounters Date Type Department Care Team (Late st Contact Info) Description 10/08/2024 1:30 PM CDT Therapy Visit [facility] [address] [facility] [address] [place] [phone] Sammy Villa MD [address] [address] Christopher Ge, PT 10/16/2024 9:20 AM CDT Therapy Visit [facility] [address] [facility] [address] [place] [phone] Sammy Villa MD [address] [address] Christopher Ge, PT 10/22/2024 11:40 AM CDT Therapy Visit [facility] [address] [facility] [address] [place] [phone] Sammy Villa MD [address] [address] Christopher Ge, PT documented as of this encounter Visit Diagnoses Not on filedocumented in this encounter Additional Health Concerns Assessment Noted Time PHQ-9 Depression Total Score: 0 06/10/19 22 7:01 AM LACEWORKER documented as of this encounter Care Teams Pusher Operator Relationship Specialty [place] [address] [place] [address] PCP - General Family Medicine 12/24/20 [place] [address] [place] [address] Assigned PCP 01/04/21 Stan Barnes MD [address] [place] [address] Assigned Surgical Provider 08/30/21 08/31/23 Trent Qureshi MD [facility] [address] [place] [address] 918995 Orthopaedic Surgery 09/16/21 documented as of this encounter
--- OUTSIDE RECORDS SUMMARY | 2024-10-02 10:34 | XMS_ITS | Encounter Summary ---
Author Organization [place] Address [address] [place] [address]. [place] [address] Care Team Providers Care Monogram Operator Name Role Phone Herb Herman MD Primary Care Provider [phone] Herb Herman MD Unavailable Stan Barnes MD Unavailable [phone] Trent Qureshi MD Unavailable [phone] Reason for Visit * Reason Onset Date Comments MyChart Communication 07/14/2022 Encounter Details Date Type Department Care Team (Latest Contact Info) Description 07/14/2022 MyC Medical Advice [facility] [phone] [place] [phone] [place] [address] [place] [address] MyChart Communication Social History Tobacco Use Types Packs/Day Years [...] How often do you attend chur or evangelical services? More than 4 times per year 06/08/2021 Do you belong to any clubs o r organizations such as voodoo groups, unions, fraternal or athletic groups, or [...] PHQ-2 Answer Date Recorded PHQ-2 Score 0 03/08/2022 [facility] Occupat ional Health - Occupational [...] place to sleep or slept in a half-way (including now)? 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 Unable to assess 07/14/2022 6:25 PM CDT documented as of this encounter Miscellaneous Notes * Telephone Encounter - Maite Zelaya PA-C - 07/14/2022 11:30 AM CDT Will need an appointment to discuss. * Telephone Encounter - Diane Moreno RN - 07/14/2022 11:07 AM CDT See my chart do you want visit? Diane Moreno RN * Telephone Encounter - Virginia Bueno RN - 07/14/2022 10:04 AM CDT [employer] message sent to patient, reply requested. Virginia Bueno R.N. documented in this encounter Plan of Treatment Upcoming Encounters Date Type Department Care Team (Late st Contact Info) Description 10/08/2024 1:30 PM CDT Therapy Visit [address] [phone] Sammy Villa MD [address] [address] Christopher Ge, PT 10/16/2024 9:20 AM CDT Therapy Visit [address] [address] Sammy Villa MD [address] [place] [address] Christopher Ge, PT 10/22/2024 11:40 AM CDT Therapy Visit [address] [phone] Sammy Villa MD [address] [place] [address] Christopher Ge, PT documented as of this encounter Visit Diagnoses Not on filedocumented in this encounter Additional Health Concerns Assessment Noted Time PHQ-9 Depression Total Score: 0 03/08/20 22 10:26 AM LOG CHIPPER OPERATOR documented as of this encounter Care Teams Monogram Operator Relationship Specialty [place] [address] [place] [address] PCP - General Family Medicine 12/24/20 [place] [address] [place] [address] Assigned PCP 01/04/21 Stan Barnes MD [address] [place] [address] [phone] Assigned Surgical Provider 08/30/21 08/31/23 Trent Qureshi MD [facility] [address] [place] [address] Orthopaedic Surgery 09/16/21 documented as of this encounter
--- OUTSIDE RECORDS SUMMARY | 2024-10-02 10:34 | XMS_ITS | Encounter Summary ---
Author Organization [place] Address [address] [place] [address] Care Team Providers Care Rough And Truing Machine Operator Name Role Phone Herb Herman MD Primary Care Provider Herb Herman MD Unavailable Stan Barnes MD Unavailable [phone] Trent Qureshi MD Unavailable [phone] Encounter Details Date Type Department Care Team (Late st Contact Info) Description 07/16/2022 [facility] [address] [phone] Diane Moreno RN Social History Tobacco Use Types Packs/Day Years [...] often do you attend chur ch or restorationist services? More than 4 times per year [...] Answer Date Recorded PHQ-2 Score 0 03/08/2022 [facility] Occupat ional Health - Occupational Stress [...] place to sleep or slept in a alf (including now)? 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 Unable to assess 07/14/2022 6:25 PM CDT documented as of this encounter Miscellaneous Notes * Telephone Encounter - Diane Moreno RN - 07/16/2022 2:40 PM CDT Please review for RF looks like you have prescribed for her in the past DULoxetine (CYMBALTA) 60 MG capsule (Discontinued) 90 capsule 3 12/02/2021 03/08/2022 No Sig - Route: Take 1 capsule (60 mg) by mouth daily - Oral Patient not taking: Reported on 03/08/2022 Diane Moreno RN documented in this encounter Plan of Treatment Upcoming Encounters Date Type Department Care Team (Late st Contact Info) Description 10/08/2024 1:30 PM CDT Therapy Visit [facility] [address] [address] Sammy Villa MD [address] [place] [address] Christopher Ge, PT 10/16/2024 9:20 AM CDT Therapy Visit [facility] [address] [facility] [address] [place] [address] Sammy Villa MD [address] [address] Christopher Ge, PT 10/22/2024 11:40 AM CDT Therapy Visit [facility] [address] [facility] [address] [place] [phone] Sammy Villa MD [address] [address] Christopher Ge, PT documented as of this encounter Visit Diagnoses Not on filedocumented in this encounter Additional Health Concerns Assessment Noted Time PHQ-9 Depression Total Score: 0 03/08/20 22 10:26 AM CARPENTER ASSISTANT INSTALLER documented as of this encounter Care Teams Rough And Truing Machine Operator Relationship Specialty [place] [address] [place] [address] PCP - General Family Medicine 12/24/20 [place] [address] [place] [address] Assigned PCP 01/04/21 Stan Barnes MD [address] [place] [address] Assigned Surgical Provider 08/30/21 08/31/23 Trent Qureshi MD [facility] [address] [place] [address] Orthopaedic Surgery 09/16/21 documented as of this encounter
--- OUTSIDE RECORDS SUMMARY | 2024-10-02 10:34 | XMS_ITS | Encounter Summary ---
Author Organization [place] Address [address] [place] [address]. [place] [address] Care Team Providers Care Belling Machine Operator Name Role Phone Herb Herman MD Primary Care Provider [phone] Herb Herman MD Unavailable Stan Barnes MD Unavailable [phone] Trent Qureshi MD Unavailable [phone] Reason for Visit * Reason Onset Date Comments MyChart Communication 01/06/2023 Encounter Details Date Type Department Care Team (Latest Contact Info) Description 01/06/2023 MyC Medical Advice [facility] [address] [place] [phone] [place] [address] [place] [address] MyChart Communication Social History Tobacco [...] often do you attend chur ch or judaism services? More than 4 times per year 06/08/2021 Do you belong to any clubs o r organizations such as mormonism groups, unions, fraternal or athletic groups, or [...] PHQ-2 Answer Date Recorded PHQ-2 Score 0 08/02/2022 [facility] of Occupat ional Health - Occupational Stress [...] place to sleep or slept in a care home (including now)? 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 Amanda Dewey RN documented in this encounter Plan of Treatment Upcoming Encounters Date Type Department Care Team (Late st Contact Info) Description 10/08/2024 1:30 PM CDT Therapy Visit [facility] [address] [facility] [address] [place] [phone] Sammy Villa MD [address] [place] [address] Christopher Ge, PT 10/16/2024 9:20 AM CDT Therapy Visit [facility] [address] [facility] [address] [place] [phone] Sammy Villa MD [address] [address] Christopher Ge, PT 10/22/2024 11:40 AM CDT Therapy Visit [facility] [address] [facility] [address] [place] [phone] Sammy Villa MD [address] [address] Christopher Ge, PT documented as of this encounter Visit Diagnoses Not on filedocumented in this encounter Additional Health Concerns Assessment Noted Time PHQ-9 Depression Total Score: 1 08/03/19 23 1:10 PM CDT documented as of this encounter Care Teams Belling Machine Operator Relationship Specialty [place] [address] [place] [address] PCP - General Family Medicine 12/24/20 [place] [address] [place] [address] Assigned PCP 01/04/21 Stan Barnes MD [address] [place] [address] Assigned Surgical Provider 08/30/21 08/31/23 Trent Qureshi MD [facility] [address] [place] [address] 415005 Orthopaedic Surgery 09/16/21 documented as of this encounter
--- OUTSIDE RECORDS SUMMARY | 2024-10-02 10:34 | XMS_ITS | Encounter Summary ---
Author Organization [facility] Address [address] [place] [address]. [place] [address] Care Team Providers Care Kiss Setter Hand Name Role Phone Herb Herman MD Primary Care Provider [phone] Herb Herman MD Unavailable tSan Barnes MD Unavailable + [phone] Trent Qureshi MD Unavailable [phone] Encounter Details Date Type Department Care Team (Late st Contact Info) Description 08/10/2021 [facility] [address] [place] [address] [facility] Social History Tobacco Use Types Packs/Day Years [...] How often do you attend chur or sikhism services? More than 4 times per year 06/08/2021 Do you belong to any clubs o r organizations such as christian groups, unions, fraternal or athletic groups, or [...] Answer Date Recorded PHQ-2 Score 0 06/24/2021 [facility] [...] place to sleep or slept in a long-term (including now)? 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 No / Unsure 08/10/2021 10:50 AM CDT documented as of this encounter Plan of Treatment Upcoming Encounters Date Type Department Care Team (Late st Contact Info) Description 10/08/2024 1:30 PM CDT Therapy Visit [address] [phone] Sammy Villa MD [address] [place] [id number] Christopher Ge, PT 10/16/2024 9:20 AM CDT Therapy Visit [address] [phone] Sammy Villa MD [address] [place] [id number] Christopher Ge, PT 10/22/2024 11:40 AM CDT Therapy Visit [address] [address] Sammy Villa MD [address] [place] [id number] Christopher Ge PT documented as of this encounter Visit Diagnoses Not on filedocumented in this encounter Additional Health Concerns Assessment Noted Time PHQ-9 Depression Total Score: 0 06/10/19 22 7:01 AM DRYWALL WORKER documented as of this encounter Care Teams Kiss Setter Hand Relationship Specialty [place] [address] [place] [address] PCP - General Family Medicine 12/24/20 [place] [address] [place] [address] Assigned PCP 01/04/21 Stan Barnes MD [address] [place] [id number] Assigned Surgical Provider 08/30/21 08/31/23 Trent Qureshi MD [facility] [address] [place] [id number] Orthopaedic Surgery 09/16/21 documented as of this encounter
--- OUTSIDE RECORDS SUMMARY | 2024-10-02 10:34 | XMS_ITS | Clinical Summary ---
Author Organization [facility] Address [address] [place] [address] Care Team Providers Care Inspection Engineer Name Role Phone Herb Herman MD Primary Care Provider [phone] Herb Herman MD Unavailable Trent Qureshi MD Unavailable [phone] Allergies Active Allergy Reactions Criticality Noted Date Comments Atorvastatin 12/22/2015 myalgias Rosuvastatin 04/27/2013 myalgias Doxycycline GI Disturbance Medium 03/08/2022 vomiting Erythromycin 02/10/1996 stomach cramps Morphine Anaphylaxis High 03/11/2001 respiratory arrest PT TOLERATES OXYCODONE Niacin 09/23/2010 Hot flashes Piroxicam 11/29/2012 GI upset Pravastatin 06/05/2018 Myalgias Simvastatin 07/19/2016 muscle cramps, weakness in legs Medications STATIN NOT PRESCRIBED (INTENTIONAL)Neelam cations:Hyperlipi demia LDL goal <100 Due to statin intolerance 019 Active blood glucose monitoring (SOFTCLIX) lancetsIndication s:Type 2 diabetes mellitus without complication, without long-term current use of insulin (H) Use to test blood sugar 1 times daily. 100 each 3 020 Active acetaminophen (TYLENOL) 325 MG tabletIndications :Status post total replacement of left hip Take 2 tablets (650 mg) by mouth every 4 hours as needed for other (mild pain) 100 tablet 022 Active ketoconazole (NIZORAL) 2 % external shampooIndication s:Seborrheic dermatitis Apply topically daily as needed for itching or irritation 120 mL 024 Active blood glucose (ACCU-CHEK MILDRED PLUS) test stripIndications: Type 2 diabetes mellitus without complication, without long-term current use of insulin (H) USE TO TEST BLOOD GLUCOSE LEVELS ONCE DAILY. 100 strip 024 Active lisinopril-hydroc hlorothiazide (ZESTORETIC) 20-25 MG tabletIndications :Essential hypertension Take 1 tablet by mouth daily. 90 tablet 3 025 Active omeprazole (PRILOSEC) [address] capsuleIndication s:Subglottic stenosis Take 1 capsule (20 mg) by mouth daily. Take 20 mg by mouth prn 90 capsule 3 025 Active metFORMIN (GLUCOPHAGE) 1000 MG tabletIndications :Type 2 diabetes mellitus with diabetic neuropathy, without long-term current use of insulin (H) Take 1 tablet (1,000 mg) by mouth 2 times daily (with meals). 180 tablet 3 025 Active levothyroxine (SYNTHROID/LEVOTH ROID) 137 MCG tabletIndications :Acquired hypothyroidism Take 1 tablet (137 mcg) by mouth daily. 90 tablet 3 025 Active amitriptyline (ELAVIL) 25 MG tabletIndications :Insomnia, unspecified type Take 1 tablet (25 mg) by mouth at bedtime. 90 tablet 3 025 Active vitamin D2 (ERGOCALCIFEROL) 42942 units (1250 mcg) capsuleIndication s:Type 2 diabetes mellitus without complication, without long-term current use of insulin (H) TAKE ONE CAPSULE BY MOUTH WEEKLY ON WEDNESDAYS 12 capsule 3 025 Active naproxen (NAPROSYN) 500 MG tabletIndications :Arthritis Take 1 tablet (500 mg) by mouth 2 times daily (with meals). As needed for moderate pain 120 tablet 5 025 Active naproxen (NAPROSYN) 500 MG tabletIndications :Arthritis Take 1 tablet (500 mg) by mouth 2 times daily as needed for moderate pain 120 tablet 3 024 2024 Discontinued naproxen (NAPROSYN) 500 MG tabletIndications :Arthritis TAKE ONE TABLET BY MOUTH TWICE DAILY NEEDED FOR MODERATE PAIN 120 tablet 5 025 2024 Discontinued(R eorder (No AVS)) Hospital, Clinic, or Other Facility Administered Medication Ordered Dose Route Frequency Start Date End Date Status triamcinolone (KENALOG-40) injection 40 mgIndications:Lumbar radiculopathy 40 mg EP ONCE 09/26/2024 09/26/2024 Ended iohexol (OMNIPAQUE) 300 mg/mL injection 10 mL 10 mL EP ONCE 09/26/2024 09/26/2024 End ed Active Problems Patient Care Coordination No te Formatting of this note migh t be different from the original. 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 Vitamin D deficiency 04/30/2013 Herpes simplex virus (HSV) infection 11/30/2004 Overview (12/22/2015): R lower lip, recurrent Obesity, BMI > 40 02/21/2003 Hyperlipidemia LDL goal <100 02/21/2003 Essential hypertension 02/21/2003 Osteoarthritis involving multiple joints 003 Hypothyroidism Type 2 diabetes mellitus with diabetic neuropath y Lung disease Overview (11/07/2009): Restrictive component, likely due to patient's obesity Obstructive component noted October 2009 Neck mass Overview (11/24/2009): lexie-tracheal Subglottic stenosis Overview (11/29/2019): Dilated 11/2009, 09/19, 07/2016, 12/2018 Resolved Problems Problem Noted Date Diagnosed Date Resolved Date Bilateral low back pain with right-sided sciatica 01/08/2016 02/03/2016 Advanced directives, counseling/discussion 03/01/2011 09/26/2023 Overview (03/08/2011): Advance Directive Problem List Overview: Name Relationship Phone Primary Health Care Agent Alternative Health Care Agent Discussed advance care planning with patient; information given to patient to review. 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 11/05/2004 05/03/2023 Encounters Date Type Department Care Team Description 09/26/2024 10:15 AM CDT Radiology Injection Office Visit [facility] [address] [place] [address] Sammy Villa MD Burton, Annie L, MD Lumbar radiculopathy (Primary Dx); Lumbar stenosis with neurogenic claudication 09/26/2024 Travel 09/23/2024 Refill [facility] [address] [place] [address] [phone] Herb Herman MD Medication Refill 09/20/2024 Telephone [facility] [place] [address] [place] [address] [place] [phone] Pain Management Program, [facility] Procedure (L3-4 or L4-5 Interlaminar ARTHUR) 09/19/2024 2:20 PM CDT Office Visit [facility] [place] [address] [place] [address] [place] [address] [phone] Douglas Hernandez MD Helland, Logan C, MD Lumbar stenosis with neurogenic claudication (Primary Dx); Chronic bilateral low back pain with bilateral sciatica 09/19/2024 MyC Medical Advice [facility] [address], [address] [place] [phone] Ana Larsen RN 09/19/2024 Travel 09/19/2024 PRE VISIT [facility] [place] [address] [facility] [address] [place] [phone] Sammy Villa MD Previsit 09/11/2024 Transcribe Orders GENERIC EXTERNAL DATA DEPARTMENT Douglas Hernandez MD Low back pain (Primary Dx) 09/10/2024 12:05 AM CDT Ancillary Procedure [facility] External Imaging [facility] [place] [address] Non-Fv Credentialed Provider, Radiology 09/10/2024 Ancillary Procedure [facility] [address] [place] [phone] Non-Fv Credentialed Provider, Radiology 09/10/2024 Medical Correspondence [facility] Information Management [address] [facility] [address] [place] [address] Scan, Non-Provider from Last 3 Months Immunizations Immunization Administration Dates Next Due COVID-19 Bivalent 12+ (Pfizer) 03/08/2022 COVID-19 MONOVALENT 12+ (Pfizer) 02/11/2021,06/11,06/17/2020 COVID-19 Monovalent 12+ (Pfizer 2021) 07/13/2021 Flu, Unspecified 02/07/1995 Influenza (H1N1) 03/24/2009 Influenza (High Dose) Trival ent,PF (Fluzone) 01/24/2018,02/04/2017,12/22/2015,2014,01/21/2014,04/27/2013 Influenza (IIV3) PF 03/08/2011, 0,03/24/2009,2007,03/01/2007,01/19/2006,02/10/2005,1 04/23/2002,03/21/2002,02/22/2001, 999 Influenza (intradermal) 04/27/2012 Influenza Vaccine 65+ (Fluzone HD) 03/08/2022,,02/06/2020 Pneumo Conj 13-V (2010&after) 12/22/2015 Pneumococcal 23 valent 04/27/2013,2007,12/29/2005,1991 TDAP Vaccine (Adacel) 02/18/2010 Family History Medical History Relation Comments Alzheimer Disease Father C.A.D. Father CABG at 56 Coronary Artery Disease Father Heart Disease Father Cancer Mother liver CA 79 Osteoporosis Mother Other Cancer Mother Liver C.A.D. Paternal Grandfather Musculoskeletal Disorder Sister yang murguia Relation Status Comments Brother 1 Alive Brother 2 Alive Father Mother Paternal Grandfather [place] Sister Alive lashanda knee replace ments Son 1 Alive Son 2 Alive Social History Tobacco Use Types Packs/Day Years Used Date Smoking Tobacco: Never Passive Smoke Exposure: Never Smokeless Tobacco: Never Tobacco Cessation:Counseling Given: Not Answered Alcohol Use Standard Drinks/Week Comments Never 0 [...] How often do you attend chur or mormon services? 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 file Last Filed Vital Signs Vital Sign Reading Time Taken Comments Blood Pressure 142/76 09/26/2024 11:00 AM CDT Pulse 63 09/26/2024 11:00 AM CDT Temperature 36.4 C (97.6 F) 05/02/2024 11:00 AM NET MENDER Respiratory Rate 20 05/02/2024 11:00 AM NET MENDER Oxygen Saturation 97% 09/26/2024 11:00 AM CDT Inhaled Oxygen Concentration - - Weight 105.2 kg (232 lb) 09/19/2024 1:43 PM CDT Height 162.6 cm (5' 4) 09/19/2024 1:43 PM CDT Body Mass Index 39.82 09/19/2024 1:43 PM CDT Plan of Treatment Upcoming Encounters Date Type Department Care Team (Late st Contact Info) Description 10/08/2024 1:30 PM CDT Therapy Visit [address] [phone] Sammy Villa MD [address] [place] [address] Christopher Ge, PT 10/16/2024 9:20 AM CDT Therapy Visit [address] [phone] Sammy Villa MD [address] [place] [phone] Christopher Ge, PT 10/22/2024 11:40 AM CDT Therapy Visit [address] [phone] Sammy Villa MD [address] [facility] [address] [place], [place] [phone] Christopher Ge M, PT Health Maintenance Due Date Last Done Comments DEPRESSION ACTION PLAN 1945 URINALYSIS 10[birth year]18/1946 ZOSTER VACCINE (1 of 2) 10/18/1997 DTAP/TDAP/TD VACCINE (2 - Td or Tdap) 02/19/2020 02/18/2010 DEXA 07/21/2022 07/21/2017, 03/11, 07/27/2006, Additional history exists RSV VACCINE (1 - 1-dose 75+ series) 10/18/2022 HEMOGLOBIN 01/18/2023 01/18/2022, 10/0 12/2021, 01/16/2022, Additional history exists DIABETIC FOOT EXAM 08/03/2023 08/02/2022, 0 07/13/2021, 06/25/2020, Additional history exists COVID-19 VACCINE (2023- season) 2023 03/08/2022, 07/13/2021, 02/11/2021, Additional history exists EYE EXAM 03/11/2024 03/11/2023, 02/10, 02/04/2021, Additional history exists MEDICARE ANNUAL WELLNESS VISIT 05/02/2024 05/02/2023, 03/08/2022, 06/25/2020, Additional history exists ALT 07/31/2024 08/01/2023, 07/11, 06/08/2021, Additional history exists BMP 07/31/2024 08/01/2023, 04/12, 01/16/2022, Additional history exists CREATININE 07/31/2024 08/01/2023, 04/12, 01/17/2022, Additional history exists MICROALBUMIN 07/31/2024 08/01/2023, 02/10, 12/24/2020, Additional history exists A1C 10/30/2024 05/02/2024, 07/11, 05/02/2023, Additional history exists PHQ-9 10/30/2024 05/02/2024, 04/12, 08/02/2022, Additional history exists INFLUENZA VACCINE (Season Ended) 2024 03/08/2022, 12/24/2020, 02/06/2020, Additional history exists ANNUAL REVIEW OF HM ORDERS 05/02/202505/02, 05/02/2023, 11/24/2021, Additional history exists FALL RISK ASSESSMENT 05/02/2025 05/02/2024, 05/02/2023, 03/08/2022, Additional history exists TSH W/FREE T4 REFLEX 05/02/2025 05/02/2024, 08/01/2023, 08/02/2022, Additional history exists LIPID 08/02/2025 08/02/2022, 05/12, 11/20/2018, Additional history exists ADVANCE CARE PLANNING 05/03/2028 05/03/2023 , 03/08/2022, 11/24/2021, Additional history exists PNEUMOCOCCAL VACCINE 50+ YEARS Completed 12/22/2015, 04/27/2013, 02/05/2008, Additional history exists HEPATITIS C SCREENING Completed 09/23/2016 COLORECTAL CANCER SCREENING Discontinued FIT Discontinued 06/29/2023, 11/10, 12/05/2019, Additional history exists MAMMO SCREENING Discontinued 07/26/2023, 12/11, 01/25/2017, Additional history exists COLONOSCOPY Discontinued CT COLONOGRAPHY Discontinued FLEX SIG Discontinued HPV VACCINE Aged Out No longer eligi ble based on patient's age to complete this topic MENINGITIS VACCINE Aged Out No longer eligible based on patient's age to complete this topic sDNA (Cologuard) Discontinued Medical Devices Implanted Type Area Fraud Examiner Device Identifier Shelf Expiration Date Model / Serial / Lot Imp Scr Zim 6.5x30mm Acet Cup Self Tap [id number] - [id number] Implanted:Qty : 1 on 09/21/2021 by Anderson George MD at [facility] Metallic Hardware/Anc hor Right: Hip [employer] 06/19/[id number]- 30 / / [id number] Imp Scr Zim 6.5x30mm Acet Cup Self Tap [id number] - [id number] Implanted:Qty : 1 on 12/21/2021 by Anderson George MD at [facility] Metallic Hardware/Anc hor Left: Hip [employer] 06/19/[id number]- 30 / / [id number] Imp Shell Biom G7 Acetab Pps Billy Hole 52mm Sz E [id number] - [id number] Implanted:Qty : 1 on 09/21/2021 by Anderson George MD at [facility] Total Joint Component/In sert Right: Hip [employer] 07/10/2031 [id number] / / [id number] Liner Actb G7 E 36mm Lngvt Hip Strl Lum Lf [id number] - [id number] Implanted:Qty : 1 on 09/21/2021 by Anderson George MD at [facility] Total Joint Component/In sert Right: Hip [employer] 12/16/[id number] / / [id number] Imp Stem Femoral Biom Echo Std Offset [id number] - [id number] Implanted:Qty : 1 on 09/21/2021 by Anderson George MD at [facility] Total Joint Component/In sert Right: Hip [employer] 01/16/2031 [id number] / / [id number] Head Fem -3mm Ofst 36mm Hip Actb Mdlr Ty 1 Blx D -[id number] - [id number] Implanted:Qty : 1 on 09/21/2021 by Anderson George MD at [facility] Total Joint Component/In sert Right: Hip [employer] 06/23/2031 [id number] / / [id number] Imp Shell Biom G7 Acetab Pps Billy Hole 52mm Sz E [id number] - [id number] Implanted:Qty : 1 on 12/21/2021 by Anderson George MD at [facility] Total Joint Component/In sert Left: Hip [employer] 10/30/2031 [id number] / / [id number] Imp Stem Femoral Biom Echo Std Offset [id number] - [id number] Implanted:Qty : 1 on 12/21/2021 by Anderson George MD at [facility] Total Joint Component/In sert Left: Hip [employer] 08/25/2031 [id number] / / [id number] Liner Actb G7 E 36mm Lngvt Hip Strl Lum Lf [id number] - [id number] Implanted:Qty : 1 on 12/21/2021 by Anderson George MD at [facility] Total Joint Component/In sert Left: Hip [employer] 08/30/2026 / / [id number] Head Fem -3mm Ofst 36mm Hip Actb Mdlr Ty 1 Blx D [id number] - [id number] Implanted:Qty : 1 on 12/21/2021 by Anderson George MD at [facility] Total Joint Component/In sert Left: Hip [employer] 06/30/2031 [id number] / / [id number] Procedures Procedure Name Priority Date/Time Associated Diagnosis Comments PAIN CAUDAL EPIDURAL INJECTION Routine 09/26/2024 10:40 AM CDT Lumbar radiculopathy XR EXTERNAL IMAGING SPINE Routine 09/10/2024 12:05 AM CDT XR EXTERNAL IMAGING SPINE Routine 09/10/2024 12:00 AM CDT TSH WITH FREE T4 REFLEX Add-On 05/02/2024 11:07 AM NET MENDER Acquired hypothyroidism HEMOGLOBIN A1C Routine 05/02/2024 11:07 AM NET MENDER Type 2 diabetes mellitus with diabetic neuropathy, without long-term current use of insulin (H) ALBUMIN RANDOM URINE QUANTITATIVE Routine 08/01/2023 9:56 AM CDT Screening for condition BASIC METABOLIC PANEL Routine 08/01/2023 9:51 AM CDT Screening for condition ALT Routine 08/01/2023 9:51 AM CDT Hyperlipidemia LDL goal <100 MA SCREENING DIGITAL BILATERAL Routine 07/26/2023 11:38 AM CDT Visit for screening mammogram FECAL COLORECTAL CANCER SCREEN FIT Routine 06/29/2023 9:00 AM CDT Colon cancer screening EYE EXAM - HIM SCAN Routine 03/11/2023 LIPID REFLEX TO DIRECT LDL PANEL Routine 08/02/2022 1:42 PM CDT Type 2 diabetes mellitus with diabetic neuropathy, without long-term current use of insulin (H) HEMOGLOBIN Routine 01/18/2022 7:30 AM CDT DX HIP/PELVIS/SPINE W LAT FRACTION ANALYSIS Routine 07/21/2017 9:14 AM CDT Asymptomatic postmenopausal status HEPATITIS C SCREEN REFLEX TO HCV RNA QUANT AND GENOTYPE Routine 09/23/2016 6:20 PM CDT Need for hepatitis C screening test C FOOT EXAM Routine 04/27/2013 10:15 AM NET MENDER Type 2 diabetes, HbA1C goal < 7% (H) PHQ-9 DEPRESSION SCREENING ORDER Routine 03/08/2011 from Last 3 Months or Most Recently Relevant to Health Maintenance Results * PAIN Caudal Epidural Injection (09/26/2024 10:40 AM CDT) Anatomical Region Laterality Modality Radio Fluoroscop y Narrative 09/26/2024 10:53 AM CDT Table formatting from the original result was not included. Images from the original result were not included. [facility] - Procedure Note [...] the procedure. Diagnosis: Lumbar spondylosis; Lumbar radiculitis/radiculopathy Manager Of Organizational Development: Daniel Dunlap MD Anesthesia: none Indications: Angela [...] post-procedure evaluation. DANIEL DUNLAP MD Pain Management us Daniel Dunlap MD IMG PAIN MANAGEMENT ORDERABLES Final Result * XR External Imaging Spine (09/10/2024 12:05 AM CDT) Only the most recent of2 resultswithin the time period is included. Narrative Service Account, Baljit Zapata - 09/13/2024 12:24 PM CDT Images were obtained from an external facility. Click PACS Images hyperlink to view images. Textual results have been scanned into the media tab. Radiology Non-Fv Credentialed Provider IMG EXTER NAL IMAGING ORDERABLES Final Result * TSH with free T4 reflex (05/02/2024 11:07 AM NET MENDER) Pathologist [facility] TSH 1.54 0.30 - 4.20 uIU/mL 05/03/2024 11:22 AM NET MENDER [facility] Blood BLOOD SPECIMEN / Unknown Venipuncture / Unknown 05/02/2024 11:07 AM NET MENDER 05/02/2024 11:07 AM NET MENDER Herb Herman MD LAB - BLOOD ORDERABLES Final Res ult [facility] [address] [place], [place] [address] * (ABNORMAL) HEMOGLOBIN A1C (05/02/2024 11:07 AM NET MENDER) Estimated Average Glucose 157(H) <117 mg/dL 05/02/2024 11:12 AM NET MENDER LABORATORY Hemoglobin A1C 7.1(H) 0.0 - 5.6 % 05/02/2024 11:12 AM NET MENDER LABORATORY Comment: Normal <5.7% Prediabetes 5.7-6.4% Diabetes 6.5% or higher Note: Adopted from ADA consensus guidelines. Blood BLOOD SPECIMEN / Unknown Venipuncture / Unknown 05/02/2024 11:07 AM NET MENDER 05/02/2024 11:07 AM NET MENDER Herb Herman MD LAB - BLOOD ORDERABLES Final Res ult [facility] [address] [facility] (no room number, 1st floor of clinic) [place] [address], [facility] * Albumin Random Urine Quantitative with Creat Ratio (08/01/2023 9:56 AM CDT) Creatinine Urine mg/dL 167.0 mg/dL 08/01/2023 8:05 PM CDT [facility] Comment:The reference ranges have not been established in urine creatinine. The results should be integrated into the clinical context for interpretation. Albumin Urine mg/L 14.4 mg/L 2023 8:05 PM CDT [facility] Comment:The reference ranges have not been established in urine albumin. The results should be integrated into the clinical context for interpretation. Albumin Urine mg/g Cr 8.62 0.00 - 25.00 mg/g Cr 08/01/2023 8:05 PM CDT [facility] Comment: Microalbuminuria is defined as an albumin:creatinine ratio of 17 to 299 for males and 25 to 299 for females. A ratio of albumin:creatinine of 300 or higher is indicative of overt proteinuria. Due to biologic variability, positive results should be confirmed by a second, first-morning random or 24-hour timed urine specimen. If there is discrepancy, a third specimen is recommended. When 2 out of 3 results are in the microalbuminuria range, this is evidence for incipient nephropathy and warrants increased efforts at glucose control, blood pressure control, and institution of therapy with an qrujeiguasa-gvfblifsdg-qqviks (TIFFANY) inhibitor (if the patient can tolerate it). Urine MID-STREAM URINE SPECIMEN / Unknown Non-blood Collection / Unknown 08/01/2023 9:56 AM CDT 08/01/2023 9:56 AM CDT us Herb Herman MD LAB - URINE ORDERABLES Final Res ult [facility] [address] [place] [address], [place] * ALT (08/01/2023 9:51 AM CDT) ALT 12 0 - 50 U/L 08/01/2023 5:5 4 PM CDT [facility] Blood BLOOD SPECIMEN / Unknown Venipuncture / Unknown 08/01/2023 9:51 AM CDT 08/01/2023 9:51 AM CDT us Herb Herman MD LAB - BLOOD ORDERABLES Final Res ult [facility] [address] [place] [address] * (ABNORMAL) Basic metabolic panel (Ca, Cl, CO2, Creat, Gluc, K, Na, BUN) (08/01/2023 9:51 AM CDT) Pathologist [facility] Sodium 139 135 - 145 mmol/L 08/01/2023 5:54 PM CDT [facility] Comment:Reference intervals for this test were updated on 01/04/2023 to more accurately reflect our healthy population. There may be differences in the flagging of prior results with similar values performed with this method. Interpretation of those prior results can be made in the context of the updated reference intervals. Potassium 5.1 3.4 - 5.3 mmol/L 08/01/2023 5:54 PM CDT [facility] Chloride 104 98 - 107 mmol/L 08/01/2023 5:54 PM CDT [facility] Carbon Dioxide (CO2) 23 22 - 29 mmol/L 08/01/2023 5:54 PM CDT [facility] Anion Gap 12 7 - 15 mmol/L 08/01/2023 5:54 PM CDT [facility] Urea Nitrogen 24.7(H) 8.0 - 23.0 mg/dL 08/01/2023 5:54 PM CDT [facility] Creatinine 1.12(H) 0.51 - 0.95 mg/dL 08/01/2023 5:54 PM CDT [facility] GFR Estimate 51(L) >60 mL/min/1. 73m2 08/01/2023 5:54 PM CDT [facility] Calcium 9.3 8.8 - 10.2 mg/dL 08/01/2023 5:54 PM CDT [facility] Glucose 127(H) 70 - 99 mg/dL 08/01/2023 5:54 PM CDT [facility] Blood BLOOD SPECIMEN / Unknown Venipuncture / Unknown 08/01/2023 9:51 AM CDT 08/01/2023 9:51 AM CDT us Herb Herman MD LAB - BLOOD ORDERABLES Final Res ult [facility] [address] [phone] * MA Screening Digital Bilateral (07/26/2023 11:38 AM CDT) Anatomical Region Laterality Modality Breast Bilateral Mammography Impressions 07/26/2023 1:24 PM CDT IMPRESSION: ACR BI-RADS Category 1: Negative BREAST CANCER SCREENING RECOMMENDATION: Routine yearly mammography beginning at age 40 or as discussed with your provider. The results and recommendations of this examination will be communicated to the patient. Servando Mclean Narrative 07/26/2023 1:24 PM CDT BILATERAL FULL FIELD DIGITAL SCREENING MAMMOGRAM Performed on: 07/26/23 Compared to: 01/04/2020, 01/25/2017, 04/27/2013, and 03/08/2011 Technique: This study was evaluated with the assistance of Computer-Aided Detection. Findings: The breasts are almost entirely fatty. There is no radiographic evidence of malignancy. us Herb Herman MD IMG MAMMOGRAPHY ORDERABLES Final Result * Fecal colorectal cancer screen (FIT) (06/29/2023 9:00 AM CDT) Occult Blood Screen FIT Negative Negative 07/06/2023 10:59 AM CDT SPECIALTY CORE/PROT/END O Stool RECTAL CONTENTS / Unknown Non-blood Collection / Unknown 06/29/2023 9:00 AM CDT 07/05/2023 1:19 PM CDT us Herb Herman MD LAB - STOOLS ORDERABLES Final Re sult [facility] SPECIALTY CORE/PROT/ENDO UM Specialty Core/Prot/Endo [address] [facility] [address] Building, Room [address] [place] [address] * Eye Exam - HIM Scan (03/11/2023) RETINOPATHY UNKNOWN Narrative Christina JohnsonPop - 03/11/2023 See encounter dated 05/03/2023 Patient Reported OTHER Final Result * (ABNORMAL) Lipid panel reflex to direct LDL Non-fasting (08/02/2022 1:42 PM CDT) Cholesterol 266(H) <200 mg/dL 08/02/2022 5:36 PM CDT [facility] Triglycerides 247(H) <150 mg/dL 08/02/2022 5:36 PM CDT [facility] Direct Measure HDL 38(L) >=50 mg/dL 08/02/2022 5:36 PM CDT [facility] LDL Cholesterol Calculated 179(H) <=100 mg/dL 08/02/2022 5:36 PM CDT [facility] Non HDL Cholesterol 228(H) <130 mg/dL 08/02/2022 5:36 PM CDT [facility] Blood BLOOD SPECIMEN / Unknown Venipuncture / Unknown 08/02/2022 1:42 PM CDT 08/02/2022 1:46 PM CDT Narrative [facility] - 08/02/2022 5:36 PM CDT Cholesterol Desirable: <200 mg/dL Triglycerides Normal: Less than 150 mg/dL Borderline High: 150-199 mg/dL High: 200-499 mg/dL Very High: Greater than or equal to 500 mg/dL Direct Measure HDL Female: Greater than or equal to 50 mg/dL Male: Greater than or equal to 40 mg/dL LDL Cholesterol Desirable: <100mg/dL Above Desirable: 100-129 mg/dL Borderline High: 130-159 mg/dL High: 160-189 mg/dL Very High: >= 190 mg/dL Non HDL Cholesterol Desirable: 130 mg/dL Above Desirable: 130-159 mg/dL Borderline High: 160-189 mg/dL High: 190-219 mg/dL Very High: Greater than or equal to 220 mg/dL us Herb Herman MD LAB - BLOOD ORDERABLES Final Res ult [facility] [place] [facility] [address] [facility], [address] [place] [address], [facility] [phone] * (ABNORMAL) Hemoglobin (01/18/2022 7:30 AM CDT) Hemoglobin 10.0(L) 11.7 - 15.7 g/dL 01/18/2022 7:52 AM CDT LABORATORY Blood STRUCTURE OF LEFT UPPER LIMB / Unknown Venipuncture / Unknown 01/18/2022 7:30 AM CDT 01/18/2022 7:43 AM CDT Anderson George MD LAB - BLOOD ORDERABL ES Final Result LABORATORY [facility] [address] 1[address] floor, [address] [place] [address], [place] [phone] * DX Hip/Pelvis/Spine w Lat Fraction Kath (07/21/2017 9:14 AM CDT) Anatomical Region Laterality Modality Dexa Bone Mineral Den sity Narrative 07/25/2017 10:30 AM CDT BONE DENSITOMETRY [facility] [address] [place] [address] 07/21/2017 PATIENT: Angela Lamar CHART: [id number] : 1945 AGE: [age] year old SEX: female REFERRING PROVIDER: Daniel Plaza MD PROCEDURE: Bone density scanning was performed using DXA technology of the lumbar spine and hip. Scanning was performed on a Oxigene scanner. Reporting is completed in the form of a T-score. The T-score represents the standard deviation from peak bone mass based on a young healthy adult. REFERENCE T-SCORES: Normal -1.0 and greater Osteopenia Between -1.0 and -2.5 Osteoporosis -2.5 and less RISK FACTORS: Post-menopausal CURRENT TREATMENT: Vitamin D FINDINGS: Lumbar Spine (L1-L4) T-score: 4.6 Severe degenerative and/or osteosclerotic changes are present, falsely improving result. Left Femoral Neck T-score: 0.2 Right Femoral Neck T-score: 0.3 Lumbar (L1-L4) BMD: 1.768 Previous: 1.682 Total Hip Mean BMD: 1.154 Previous: 1.161 Comparison is made to another DXA performed on the same Oxigene machine on 03/24 and 07/16. LATERAL VERTEBRAL ASSESSMENT Procedure: Vertebral fracture assessment was performed in the lateral decubitus position using a Oxigene densitometer. Indications for VFA: none listed Confounding factors for VFA: Arthritis/degenerative disc disease. The LVA scan is interpretable from T7 to L4. VFA Findings: Using the semi-quantitative analysis of Nanda there was evidence of no spinal deformity VFA Impression: Angela Lamar has no vertebral fractures identified on the VFA. IMPRESSION Normal bone mineral density study Recommendations include ensuring adequate daily Calcium and Vitamin D intake Compared to previous bone densitometry performed on this patient, there is the suggestion of no significant change of the lumbar spine, and no significant change of the (total) hip. Daniel Plaza MD us Daniel Plaza MD IMG DEXA ORDERABLES Final Re sult * Hepatitis C Screen Reflex to HCV RNA Quant and Genotype (09/23/2016 6:20 PM CDT) Hepatitis C Antibody Nonreactive Assay performance characteristics have not been established for newborns, infants, and children NR [facility] Blood specimen (specimen) 09/23/2016 6:20 PM CDT 09/23/2016 6:21 PM CDT us Daniel Plaza MD LAB - BLOOD ORDERABLES Final Result [facility] [address] [place] [address] * PHQ-9 DEPRESSION SCREENING ORDER (03/08/2011) us Provider Abstract OTHER Final Result from Last 3 Months or Most Recently Relevant to Health Maintenance Insurance MEDICARE [employer] MEDICARE [employer] Advance Directives For more information, please contact: [phone] * Full Code (Latest Code Status on File) Date Activated Date Inactivated Comments 01/16/2022 4:39 PM 01/18/2022 3:15 PM All basic a nd advanced life-sustaining interventions are performed as appropriate Question Answer Comments Code status determined by: Discussion with patie nt/ legal decision maker * Full Code Date Activated Date Inactivated Comments 01/15/2022 8:08 PM 01/16/2022 4:39 PM All basic an d advanced life-sustaining interventions are performed as appropriate Question Answer Comments Code status determined by: Discussion with patie nt/ legal decision maker * Full Code Date Activated Date Inactivated Comments 12/21/2021 1:27 PM 12/22/2021 1:14 PM All basic an d advanced life-sustaining interventions are performed as appropriate Question Answer Comments Code status determined by: Unable to dis cuss and no AD/POLST on file; continue PREVIOUSLY ORDERED code status * Full Code Date Activated Date Inactivated Comments 09/21/2021 12:06 PM 09/22/2021 12:45 PM All basic and advanced life-sustaining interventions are performed as appropriate Question Answer Comments Code status determined by: Discussion with patie nt/ legal decision maker * Full Code Date Activated Date Inactivated Comments 06/25/2020 11:09 AM 08/03/2021 10:30 AM Question Answer Comments Code status determined by: Discussion with patie nt/legal decision maker Code status determined by: Discussion with patie nt/ legal decision maker Care Teams Inspection Engineer Relationship Specialty [place] [address] [facility] [place] [address] PCP - General Family Medicine 12/24/20 [place] [address] [place] [address] Assigned PCP 01/04/21 Trent Qureshi MD [facility] [address] [place] [address] Orthopaedic Surgery 09/16/21
--- OUTSIDE RECORDS SUMMARY | 2024-10-02 10:35 | XMS_ITS | Encounter Summary ---
Author Organization [place] Address [address] [place] [address]. [place] [address] Care Team Providers Care Sourcing Specialist Name Role Phone Herb Herman MD Primary Care Provider Herb Herman MD Unavailable Stan Barnes MD Unavailable [phone] Trent Qureshi MD Unavailable [phone] Encounter Details Date Type Department Care Team (Late st Contact Info) Description 05/09/2023 MyC Medical Advice [facility] [address] [address] Stan Barnes MD [address] [place] [address] Social History Tobacco Use Types Packs/Day Years [...] often do you attend chur ch or caodaism services? 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 file documented as of this encounter Plan of Treatment Upcoming Encounters Date Type Department Care Team (Late st Contact Info) Description 10/08/2024 1:30 PM CDT Therapy Visit [address] [address] Sammy Villa MD [address] [place] [address] Christopher Ge, PT 10/16/2024 9:20 AM CDT Therapy Visit [address] [address] Sammy Villa MD [address] [place] [address] Christopher Ge, PT 10/22/2024 11:40 AM CDT Therapy Visit [facility] [address] [facility] [address] [place] [phone] Sammy Villa MD 420 [facility] [address] [place] [address] Christopher Ge, PT documented as of this encounter Visit Diagnoses Not on filedocumented in this encounter Additional Health Concerns Assessment Noted Time PHQ-9 Depression Total Score: 0 05/02/19 10:52 AM RETURNS CLERK documented as of this encounter Care Teams Sourcing Specialist Relationship Specialty [place] [address] [place] [address] PCP - General Family Medicine 12/24/20 [place] [address] [place] [address] Assigned PCP 01/04/21 Stan Barnes MD [address] [place] [address] Assigned Surgical Provider 08/30/21 08/31/23 Trent Qureshi MD [facility] [address] [place] [address] Orthopaedic Surgery 09/16/21 documented as of this encounter
--- OUTSIDE RECORDS SUMMARY | 2024-10-02 10:35 | XMS_ITS | Encounter Summary ---
Author Organization [place] Address [address] [place] [address]. [place] [address] Care Team Providers Care Rn L And D Name Role Phone Herb Herman MD Primary Care Provider Herb Herman MD Unavailable Stan Barnes MD Unavailable [phone] Trent Qureshi MD Unavailable [phone] Encounter Details Date Type Department Care Team (Late st Contact Info) Description 07/16/2021 MyC Medical Advice [facility] [id number] [place] [address] [place] [address] [place] [address] Social History Tobacco Use Types [...] week 06/08/2021 How often do you attend [facility] or druze services? More than 4 times per year 06/08/2021 Do you belong to any clubs o r organizations such as roman catholic groups, unions, fraternal or athletic groups, or [...] Answer Date Recorded PHQ-2 Score 0 06/24/2021 [facility] of Occupat ional 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 No / Unsure 07/13/2021 10:21 AM CDT documented as of this encounter Plan of Treatment Upcoming Encounters Date Type Department Care Team (Late st Contact Info) Description 10/08/2024 1:30 PM CDT Therapy Visit [address] [address] Sammy Villa MD [address] [place] [address] Christopher Ge, PT 10/16/2024 9:20 AM CDT Therapy Visit [address] [address] Sammy Villa MD [address] [place] [address] Christopher Ge, PT 10/22/2024 11:40 AM CDT Therapy Visit [address] [phone] Sammy Villa MD 420 [facility] 96 [place], [place] [address] Christopher Ge PT documented as of this encounter Visit Diagnoses Not on filedocumented in this encounter Additional Health Concerns Assessment Noted Time PHQ-9 Depression Total Score: 0 06/10/19 22 7:01 AM CUSTOMER EXPERIENCE SPECIALIST documented as of this encounter Care Teams Rn L And D Relationship Specialty [place] [address] [place] [address] PCP - General Family Medicine 12/24/20 [place] [address] [place] [address] Assigned PCP 01/04/21 Stan Barnes MD [address] [place] [address] [id number] Assigned Surgical Provider 08/30/21 08/31/23 Trent Qureshi MD [facility] [address] [place] [address] [id number] Orthopaedic Surgery 09/16/21 documented as of this encounter
--- OUTSIDE RECORDS SUMMARY | 2024-10-02 10:35 | XMS_ITS | Encounter Summary ---
Author Organization [place] Address [address] [place] [address] Care Team Providers Care Server Administrator Name Role Phone Herb Herman MD Primary Care Provider [phone] Herb Herman MD Unavailable Trent Qureshi MD Unavailable [phone] Encounter Details Date Type Department Care Team (Latest Contact Info) Description 09/19/2024 Travel Social History Tobacco Use Types Packs/Day Years [...] any clubs o r organizations such as pentecostal groups, unions, fraternal or athletic groups, or [...] Answer Date Recorded PHQ-2 Score 0 05/02/2024 [facility] - Occupational Stress Questionnaire Answer Date [...] AM CDT Legal Sex Female 3:11 AM DATASTAGE ARCHITECT Gender Identity Female 01/16/2019 8:38 AM CDT Sexual Orientation Choose not to disclose 2021 11:32 AM DATASTAGE ARCHITECT 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 file documented as of this encounter Plan of Treatment Upcoming Encounters Date Type Department Care Team (Late st Contact Info) Description 10/08/2024 1:30 PM CDT Therapy Visit [address] [address] Sammy Villa MD [address] [place] [address] Christopher Ge, PT 10/16/2024 9:20 AM CDT Therapy Visit [address] [address] Sammy Villa MD [address] [place] [address] Christopher Ge, PT 10/22/2024 11:40 AM CDT Therapy Visit [address] [phone] Sammy Villa MD [address] [place] [address] Christopher Ge, PT documented as of this encounter Visit Diagnoses Not on filedocumented in this encounter Additional Health Concerns Assessment Noted Time PHQ-9 Depression Total Score: 0 05/02/19 25 10:13 AM DATASTAGE ARCHITECT documented as of this encounter Care Teams Server Administrator Relationship Specialty [place] [address] [place] [address] PCP - General Family Medicine 12/24/20 [place] [address] [place] [address] Assigned PCP 01/04/21 Trent Qureshi MD [facility] [place] [facility] [address] [place] [address] Orthopaedic Surgery 09/16/21 documented as of this encounter
--- OUTSIDE RECORDS SUMMARY | 2024-10-02 10:35 | XMS_ITS | Encounter Summary ---
Author Organization [place] Address [address] [place] [address]. [place] [address] Care Team Providers Care Crew Clerk Name Role Phone Herb Herman MD Primary Care Provider [phone] Herb Herman MD Unavailable Trent Qureshi MD Unavailable [phone] Encounter Details Date Type Department Care Team (Late st Contact Info) Description 09/19/2024 [facility] Medical Advice [facility] [address], [address] [place] [address] Ana Larsen RN Social History Tobacco Use Types Packs/Day [...] often do you attend chur ch or adventist services? More than 4 times per year [...] Answer Date Recorded PHQ-2 Score 0 05/02/2024 [facility] of Occupat ional Health - Occupational [...] Answer Date Recorded Do you have housing? 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 file documented as of this encounter Plan of Treatment Upcoming Encounters Date Type Department Care Team (Late st Contact Info) Description 10/08/2024 1:30 PM CDT Therapy Visit [address] [address] Sammy Villa MD [address] [place] [address] Christopher Ge, PT 10/16/2024 9:20 AM CDT Therapy Visit [address] [address] Sammy Villa MD [address] [place] [address] Christopher Ge, PT 10/22/2024 11:40 AM CDT Therapy Visit [address] [address] Sammy Villa MD [address] [place] [address] Christopher Ge PT documented as of this encounter Visit Diagnoses Not on filedocumented in this encounter Additional Health Concerns Assessment Noted Time PHQ-9 Depression Total Score: 0 05/02/19 25 10:13 AM FINANCIAL COMPLIANCE OFFICER documented as of this encounter Care Teams Crew Clerk Relationship Specialty [place] [address] [place] [address] PCP - General Family Medicine 12/24/20 [place] [address] [place] [address] Assigned PCP 01/04/21 Trent Qureshi MD [facility] [address] [place] [address] Orthopaedic Surgery 09/16/21 documented as of this encounter
--- OUTSIDE RECORDS SUMMARY | 2024-10-02 10:35 | XMS_ITS | Encounter Summary ---
Author Organization [place] Address [address] [place] [address]. [place] [address] Care Team Providers Care Manager In Home Name Role Phone Herb Herman MD Primary Care Provider [phone] Herb Herman MD Unavailable Stan Barnes MD Unavailable [phone] Trent Qureshi MD Unavailable [phone] Encounter Details Date Type Department Care Team (Late st Contact Info) Description 06/29/2021 MyC Medical Advice [facility] [address] [place] [address] [place] [address] [place] [address] Social History Tobacco Use Types [...] How often do you attend [facility] or anabaptism services? More than 4 times per year 06/08/2021 Do you belong to any clubs o r organizations such as taoism groups, unions, fraternal or athletic groups, or [...] Answer Date Recorded PHQ-2 Score 0 06/24/2021 [facility] of Occupat ional [facility] - Occupational Stress Questionnaire Answer Date [...] place to sleep or slept in a halfway (including now)? No 06/08/2021 Comments No Sex and Gender Information Value Date Recorded Sex Assigned at Female 01/16/2019 8:38 AM CDT Legal Sex Female 3:11 AM ADMITTING REPRESENTATIVE Gender Identity Female 01/16/2019 8:38 AM CDT Sexual Orientation Choose not to disclose 2021 11:32 AM ADMITTING REPRESENTATIVE COVID-19 Exposure Response Date Recorded In the last month, have you been in contact with someone who was confirmed or suspected to have Coronavirus / COVID-19? No / Unsure 06/24/2021 10:22 AM CDT documented as of this encounter Plan of Treatment Upcoming Encounters Date Type Department Care Team (Late st Contact Info) Description 10/08/2024 1:30 PM CDT Therapy Visit [address] [address] Sammy Villa MD [address] [place] [address] Christopher Ge, PT 10/16/2024 9:20 AM CDT Therapy Visit [address] [address] Sammy Villa MD [address] [place] [address] Christopher Ge, PT 10/22/2024 11:40 AM CDT Therapy Visit [address] [address] Sammy Villa MD 420 [facility] 96 [place], [place] [address] Christopher Ge, PT documented as of this encounter Visit Diagnoses Not on filedocumented in this encounter Additional Health Concerns Assessment Noted Time PHQ-9 Depression Total Score: 0 06/10/19 22 7:01 AM ADMITTING REPRESENTATIVE documented as of this encounter Care Teams Manager In Home Relationship Specialty [place] [address] [place] [address] PCP - General Family Medicine 12/24/20 [place] [address] [place] [address] Assigned PCP 01/04/21 Stan Barnes MD [address] [place] [address] Assigned Surgical Provider 08/30/21 08/31/23 Trent Qureshi MD [facility] [address] [place] [address] Orthopaedic Surgery 09/16/21 documented as of this encounter
--- OUTSIDE RECORDS SUMMARY | 2024-10-02 10:35 | XMS_ITS | Encounter Summary ---
Author Organization [place] Address [address] [place] [address] Care Team Providers Care Scene Painter Name Role Phone Daniel Plaza MD Primary Care Provider Daniel Plaza MD Unavailable [phone] Stan Barnes MD Unavailable [phone] Herb Hreman MD Primary Care Provider Herb Herman MD Unavailable Stan Barnes MD Unavailable [phone] Trent Qureshi MD Unavailable [phone] Encounter Details Date Type Department Care Team (Late st Contact Info) Description 12/21/2018 [facility] [address] [place] [address] Stan Barnes MD [address] [place] [address] Social History Tobacco Use Types Packs/Day Years Used Date Smoking Tobacco: Never Smokeless Tobacco: Never Alcohol Use Standard Drinks/Week Comments No 0 (1 standard drink = 0.6 oz pur e alcohol) PHQ-2 Answer Date Recorded PHQ-2 Score 0 04/18/2018 Comments No Sex and Gender Information Value Date Recorded Sex Assigned at Female 01/16/2019 8:38 AM CDT Legal Sex Female 3:11 AM BIOSECURITY OFFICER Gender Identity Female 01/16/2019 8:38 AM CDT Sexual Orientation Choose not to disclose 2021 11:32 AM BIOSECURITY OFFICER documented as of this encounter Plan of Treatment Upcoming Encounters Date Type Department Care Team (Late st Contact Info) Description 10/08/2024 1:30 PM CDT Therapy Visit [address] [address] Sammy Villa MD [address] [address] Christopher Ge, PT 10/16/2024 9:20 AM CDT Therapy Visit [address] [address] Sammy Villa MD [address] [address] Christopher Ge, PT 10/22/2024 11:40 AM CDT Therapy Visit [address] [address] Sammy Villa MD [address] [place] [address] Christopher Ge, PT documented as of this encounter Visit Diagnoses Not on filedocumented in this encounter Additional Health Concerns Assessment Noted Time PHQ-9 Depression Total Score: 0 11/24/19 19 11:34 AM CDT documented as of this encounter Care Teams Scene Painter Relationship Specialty Start Date End Date Daniel Plaza MD [address] [place] [phone] PCP - General 06/29/10 12/23/20 [place] [address] [place] [address] PCP - General Family Medicine 12/24/20 Daniel Plaza MD [address] [place] [phone] Assigned PCP 01/13/12 01/03/21 Stan Barnes MD [address] [place] [address] Assigned Surgical Provider 02/01/20 07/19/20 [place] [address] [place] [address] Assigned PCP 01/04/21 Stan Barnes MD [address] [place] [address] Assigned Surgical Provider 08/30/21 08/31/23 Trent Qureshi MD [facility] [address] [place] [address] Orthopaedic Surgery 09/16/21 documented as of this encounter
--- OUTSIDE RECORDS SUMMARY | 2024-10-02 10:35 | XMS_ITS | Encounter Summary ---
Author Organization [place] Address [address] [place] [address] Care Team Providers Care Real Estate Specialist Name Role Phone Daniel Plaza MD Primary Care Provider Daniel Plaza MD Unavailable Daniel Plaza MD Unavailable Stan Barnes MD Unavailable [phone] Herb Herman MD Primary Care Provider Herb Herman MD Unavailable Stan Barnes MD Unavailable [phone] Trent Qureshi MD Unavailable [phone] Encounter Details Date Type Department Care Team (Late st Contact Info) Description 04/28/2013 [facility] [place] [facility] [address] [address] Daniel Plaza MD [address] [place] [address] Social History Tobacco Use Types Packs/Day Years Used Date Smoking Tobacco: Never Smokeless Tobacco: Never Alcohol Use Standard Drinks/Week Comments No 0 (1 standard drink = 0.6 oz pur e alcohol) Comments No Sex and Gender Information Value Date Recorded Sex Assigned at Female 01/16/2019 8:38 AM CDT Legal Sex Female 3:[address] Gender Identity Female 01/16/2019 8:38 AM CDT Sexual Orientation Choose not to disclose 2021 11:[address] documented as of this encounter Plan of Treatment Upcoming Encounters Date Type Department Care Team (Late st Contact Info) Description 10/08/2024 1:30 PM CDT Therapy Visit [address] [address] Sammy Villa MD [address] [place] [address] Christopher Ge, PT 10/16/2024 9:20 AM CDT Therapy Visit [address] [address] Sammy Villa MD [address] [place] [address] Christopher Ge, PT 10/22/2024 11:40 AM CDT Therapy Visit [address] [address] Sammy Villa MD [address] [place] [address] Christopher Ge, PT documented as of this encounter Visit Diagnoses Not on filedocumented in this encounter Care Teams Real Estate Specialist Relationship Specialty Start Date End Date Daniel Plaza MD [address] [place] [address] PCP - General 06/29/10 12/23/20 Daniel Plaza MD [address] [place] [address] PCP - Assigned PCP 02/05/08 06/13/18 [place] [address] [place] [address] PCP - General Family Medicine 12/24/20 Daniel Plaza MD [address] [place] [address] Assigned PCP 01/13/12 01/03/21 Stan Barnes MD [address] [place] [address] Assigned Surgical Provider 02/01/20 07/19/20 [place] [address] [place] [address] Assigned PCP 01/04/21 Stan Barnes MD [address] [place] [address] Assigned Surgical Provider 08/30/21 08/31/23 Trent Qureshi MD [facility] [address] [place] [address] 033715 Orthopaedic Surgery 09/16/21 documented as of this encounter
--- OUTSIDE RECORDS SUMMARY | 2024-10-02 10:35 | XMS_ITS | Encounter Summary ---
Author Organization [place] Address [address] [place] [address]. [place] [address] Care Team Providers Care Roustabout Head Name Role Phone Herb Herman MD Primary Care Provider Herb Herman MD Unavailable Stan Barnes MD Unavailable [phone] Trent Qureshi MD Unavailable [phone] Reason for Visit * Reason Onset Date Comments Medication Request 07/13/2021 Encounter Details Date Type Department Care Team (Late st Contact Info) Description 07/13/[address] [facility] [id number] [place] [address] [place] [address] [place] [address] Medication Request Social History Tobacco Use Types Packs/Day Years [...] often do you attend chur ch or yazidism services? More than 4 times per year 06/08/2021 Do you belong to any clubs o r organizations such as tenriism groups, unions, fraternal or athletic groups, or [...] Answer Date Recorded PHQ-2 Score 0 06/24/2021 [facility] Occupat ional [facility] - Occupational [...] place to sleep or slept in a mcc (including now)? 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 No / Unsure 07/13/2021 10:21 AM CDT documented as of this encounter Miscellaneous Notes * Telephone Encounter - Herb Herman MD - 07/14/2021 10:23 AM CDT As this is a medication list on her allergy list, please inform patient if she has any difficulty breathing or notices any allergic reactions, she should stop the medication immediately and seek medical attention. Otherwise it is okay to take naproxen twice a day however if this becomes a routine for her recommend follow-up in 1 month for recheck of kidney function and discuss long-term use of NSAIDs. ZG * Telephone Encounter - Julienne Riddle RN - 07/13/2021 2:44 PM CDT Pt requesting Naproxen 500 MG tablet. Routing refill request to provider for review/approval because: Drug not active on patient's medication list Julienne Solitario RN documented in this encounter Plan of Treatment Upcoming Encounters Date Type Department Care Team (Late st Contact Info) Description 10/08/2024 1:30 PM CDT Therapy Visit [address] [address] Sammy Villa MD [address] [place] [address] Christopher Ge, PT 10/16/2024 9:20 AM CDT Therapy Visit [address] [address] Sammy Villa MD [address] [place] [address] Christopher Ge, PT 10/22/2024 11:40 AM CDT Therapy Visit [address] [address] Sammy Villa MD [address] [place] [address] Christopher Ge, PT documented as of this encounter Visit Diagnoses Diagnosis Other chronic pain- Primary documented in this encounter Additional Health Concerns Assessment Noted Time PHQ-9 Depression Total Score: 0 06/10/19 22 7:01 AM FRUIT CANNER documented as of this encounter Care Teams Roustabout Head Relationship Specialty [place] [address] [place] [address] PCP - General Family Medicine 12/24/20 [place] [address] [place] [address] Assigned PCP 01/04/21 Stan Barnes MD [address] [place] [address] Assigned Surgical Provider 08/30/21 08/31/23 Trent Qureshi MD [facility] [address] [place] [address] Orthopaedic Surgery 09/16/21 documented as of this encounter
--- OUTSIDE RECORDS SUMMARY | 2024-10-02 10:35 | XMS_ITS | Encounter Summary ---
Author Organization [place] Address [address] [place] [address] Care Team Providers Care Vp & General Counsel Name Role Phone Daniel Plaza MD Primary Care Provider Daniel Plaza MD Unavailable Daniel Plaza MD Unavailable [phone] Stan Barnes MD Unavailable [phone] Herb Herman MD Primary Care Provider [phone] Herb Herman MD Unavailable Stan Barnes MD Unavailable Trent Qureshi MD Unavailable [phone] Reason for Visit * Reason Onset Date Comments Sinus Problem 04/06/2017 Encounter Details Date Type Department Care Team (Late st Contact Info) Description 04/06/2017 [facility] Medical Advice [facility] [address] [address] Daniel Plaza MD [address] [address] Sinus Problem Social History Tobacco Use Types Packs/Day Years Used Date Smoking Tobacco: Never Smokeless Tobacco: Never Alcohol Use Standard Drinks/Week Comments No 0 (1 standard drink = 0.6 oz pur e alcohol) Comments No Sex and Gender Information Value Date Recorded Sex Assigned at Female 01/16/2019 8:38 AM CDT Legal Sex Female 3:11 AM SPOOL SANDER Gender Identity Female 01/16/2019 8:38 AM CDT Sexual Orientation Choose not to disclose 2021 11:32 AM SPOOL SANDER documented as of this encounter Plan of Treatment Upcoming Encounters Date Type Department Care Team (Late st Contact Info) Description 10/08/2024 1:30 PM CDT Therapy Visit [address] [address] Sammy Villa MD [address] [place] [address] Christopher Ge, PT 10/16/2024 9:20 AM CDT Therapy Visit [address] [address] Sammy Villa MD [address] [place] [address] Christopher Ge, PT 10/22/2024 11:40 AM CDT Therapy Visit [address] [address] Sammy Villa MD [address] [place] [address] Christopher Ge, PT documented as of this encounter Visit Diagnoses Diagnosis Acute sinusitis with symptoms > 10 days- Primary Acute sinusitis, unspecified documented in this encounter Additional Health Concerns Assessment Noted Time PHQ-9 Depression Total Score: 0 12/23/19 16 7:14 AM CDT documented as of this encounter Care Teams Vp & General Counsel Relationship Specialty Start Date End Date Daniel Plaza MD [address] [place] [address] PCP - General 06/29/10 12/23/20 Daniel Plaza MD [address] [place] [address] PCP - Assigned PCP 02/05/08 06/13/18 [place] [address] [place] [address] PCP - General Family Medicine 12/24/20 Daniel Plaza MD [address] [place] [phone] Assigned PCP 01/13/12 01/03/21 Stan Barnes MD [address] [place] [address] Assigned Surgical Provider 02/01/20 07/19/20 [place] [address] [place] [address] Assigned PCP 01/04/21 Stan Barnes MD [address] [place] [address] Assigned Surgical Provider 08/30/21 08/31/23 Trent Qureshi MD [facility] [address] [place] [address] Orthopaedic Surgery 09/16/21 documented as of this encounter
--- OUTSIDE RECORDS SUMMARY | 2024-10-02 10:35 | XMS_ITS | Encounter Summary ---
Author Organization [place] Address [address] [place] [address] Care Team Providers Care Self Pay Representative Name Role Phone Herb Herman MD Primary Care Provider [phone] Herb Herman MD Unavailable Trent Qureshi MD Unavailable [phone] Reason for Referral * Consultation (Routine: Next available opening) - Closed Specialty Diagnoses / Procedures Referred By Contac t Referred To Contact Orthopedics Diagnoses Low back pain oDuglas Hernandez MD [facility] [address] [facility] [address] [place] [address] Phone: tel: fax: Referral ID Status Reason Start Date Expiration Date Visits Re quested Visits Authorized [id number] Closed 09/11/2024 09/11/2025 1 1 Scheduling Instructions Evaluate severe lumbar spinal stenosis Question Answer Consult Type: Other Type: Per Protocol My Clinical Question Is: low back pain Scheduling Instructions: Our [facility] Orthopedic Installment Agent team will contact you via phone, text, email or MyChart within 2 business days to help you schedule your appointment, or you may contact the Installment Agent Team at . Comments [facility] External Fax Details Provider: Douglas Hernandez Affiliated with: [facility] Clinic Location: [place] Phone number: [phone] Fax number: [phone] [place] Patient: No Medical records received with referral? No, Referral only [facility] Orthopedic Installment Agent team will contact you via phone, text, email or MyChart within 2 business days to help you schedule your appointment, or you may contact the Installment Agent Team at . Encounter Details Date Type Department Care Team (Latest Contact Info) Description 09/11/2024 Transcribe Orders GENERIC EXTERNAL DATA DEPARTMENT Douglas Hernandez MD [facility] [address] [place] [address] [place] [address] Low back pain (Primary Dx) Social History Tobacco Use Types [...] How often do you attend chur or anabaptism services? 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 file documented as of this encounter Plan of Treatment Upcoming Encounters Date Type Department Care Team (Late st Contact Info) Description 10/08/2024 1:30 PM CDT Therapy Visit [address] [address] Sammy Villa MD [address] [place] [address] Christopher Ge, PT 10/16/2024 9:20 AM CDT Therapy Visit [address] [address] Sammy Villa MD [address] [place] [address] Christopher Ge, PT 10/22/2024 11:40 AM CDT Therapy Visit [address] [address] Sammy Villa MD [address] [place] [address] Christopher Ge, PT Scheduled Referrals Name Type Priority Associated Diagnoses Orde r Schedule Orthopedic Installment Agent Referral Referral Routine: Next available opening Low back pain Expected: 09/11/2024 (Approximate), Expires: 09/11/2025 documented as of this encounter Visit Diagnoses Diagnosis Low back pain- Primary Lumbago documented in this encounter Additional Health Concerns Assessment Noted Time PHQ-9 Depression Total Score: 0 05/02/19 25 10:13 AM DIRECTOR OF EVENT MARKETING documented as of this encounter Care Teams Self Pay Representative Relationship Specialty [place] [address] [place] [address] PCP - General Family Medicine 12/24/20 [place] [address] [facility] [place] [address] Assigned PCP 01/04/21 Trent Qureshi MD [facility] [address] [place] [address] Orthopaedic Surgery 09/16/21 documented as of this encounter
--- OUTSIDE RECORDS SUMMARY | 2024-10-02 10:35 | XMS_ITS | Encounter Summary ---
Author Organization [place] Address [address] [place] [address]. [place] [address] Care Team Providers Care Warehouse Operations Associate Name Role Phone Herb Herman MD Primary Care Provider Herb Herman MD Unavailable Trent Qureshi MD Unavailable [phone] Reason for Visit * Reason Comments Medication Refill Encounter Details Date Type Department Care Team (Late st Contact Info) Description 09/23/[address] [address] [place] [address] [place] [address] Medication Refill Social History Tobacco Use Types Packs/Day Years [...] 06/08/2021 How often do you attend [facility] or alevism services? 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 file documented as of this encounter Miscellaneous Notes * Addendum Note - Vanessa Gage, RN - 09/23/2024 10:34 AM CDTAddended by: VANESSA GAGE on: 09/24/2024 02:57 PM Modules accepted: Orders documented in this encounter Plan of Treatment Upcoming Encounters Date Type Department Care Team (Late st Contact Info) Description 10/08/2024 1:30 PM CDT [facility] [address] [facility] [address] [place] [address] Sammy Villa MD [address] [place] [address] Christopher Ge, PT 10/16/2024 9:20 AM CDT Therapy Visit [place] [id number] [facility] [address] [place] [address] Sammy Villa MD [address] [address] Christopher Ge, PT 10/22/2024 11:40 AM CDT Therapy [facility] [address] [facility] [address] [place] [address] Sammy Villa MD [address] [address] Christopher Ge, PT documented as of this encounter Visit Diagnoses Diagnosis Arthritis Arthropathy, unspecified, site unspecified documented in this encounter Additional Health Concerns Assessment Noted Time PHQ-9 Depression Total Score: 0 05/02/19 25 10:13 AM BUILDING CARPENTER documented as of this encounter Care Teams Warehouse Operations Associate Relationship Specialty [place] [address] [place] [address] PCP - General Family Medicine 12/24/20 [place] [address] [place] [address] Assigned PCP 01/04/21 Trent Qureshi MD [facility] [address] [place] [address] Orthopaedic Surgery 09/16/21 documented as of this encounter
--- OUTSIDE RECORDS SUMMARY | 2024-10-02 10:35 | XMS_ITS | Encounter Summary ---
Author Organization [place] Address [address] [place] [address] Care Team Providers Care Straw Hat Brusher Name Role Phone Daniel Plaza MD Primary Care Provider Daniel Plaza MD Unavailable [phone] Daniel Plaza MD Unavailable [phone] Stan Barnes MD Unavailable [phone] Herb Herman MD Primary Care Provider Herb Herman MD Unavailable Stan Barnes MD Unavailable Trent Qureshi MD Unavailable [phone] Reason for Visit * Reason Onset Date Comments Respiratory Problems 02/16/2008 Encounter Details Date Type Department Care Team (Latest Contact Info) Description 02/15/2008 [facility] [address] [address] Daniel Plaza MD [address] [address] Respiratory Problems Social History Tobacco Use Types Packs/Day Years Used Date Smoking Tobacco: Never Alcohol Use Standard Drinks/Week Comments Yes 0 (1 standard drink = 0.6 oz pur e alcohol) social Comments No Sex and Gender Information Value Date Recorded Sex Assigned at Female 01/16/2019 8:38 AM CDT Legal Sex Female 3:11 AM PLASTIC PRINTER Gender Identity Female 01/16/2019 8:38 AM CDT Sexual Orientation Choose not to disclose 2021 11:32 AM PLASTIC PRINTER documented as of this encounter Plan of Treatment Upcoming Encounters Date Type Department Care Team (Late st Contact Info) Description 10/08/2024 1:30 PM CDT Therapy Visit [address] [address] Sammy Villa MD [address] [address] Christopher Ge, PT 10/16/2024 9:20 AM CDT Therapy Visit [address] [address] Sammy Villa MD [address] [place] [address] Christopher Ge, PT 10/22/2024 11:40 AM CDT Therapy Visit [address] [address] Sammy Villa MD [address] [place] [address] Christopher Ge, PT documented as of this encounter Visit Diagnoses Not on filedocumented in this encounter Care Teams Straw Hat Brusher Relationship Specialty Start Date End Date Daniel Plaza MD [address], [place] [address] PCP - General 06/29/10 12/23/20 Daniel Plaza MD [address] [place] [address] PCP - Assigned PCP 02/05/08 06/13/18 [place] [address] [place] [address] PCP - General Family Medicine 12/24/20 Daniel Plaza MD [address] [place] [address] Assigned PCP 01/13/12 01/03/21 Stan Barnes MD [address] [place] [address] Assigned Surgical Provider 02/01/20 07/19/20 [place] [address] [place] [address] Assigned PCP 01/04/21 Stan Barnes MD [address] [place] [address] Assigned Surgical Provider 08/30/21 08/31/23 Trent Qureshi MD [facility] [address] [place] [address] Orthopaedic Surgery 09/16/21 documented as of this encounter
--- OUTSIDE RECORDS SUMMARY | 2024-10-02 10:35 | XMS_ITS | Encounter Summary ---
Author Organization [place] Address [address] [place] [address] Care Team Providers Care Set Up Mechanic Crown Assembly Machine Name Role Phone Herb Herman MD Primary Care Provider [phone] Herb Herman MD Unavailable Stan Barnes MD Unavailable [phone] Trent Qureshi MD Unavailable [phone] Encounter Details Date Type Department Care Team (Late st Contact Info) Description 06/27/2023 My[facility] Medical Advice [address] [address] Soraya Hutchinson CMA Social History Tobacco Use Types Packs/Day Years [...] How often do you attend chur or christianity services? 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 file documented as of this encounter Plan of Treatment Upcoming Encounters Date Type Department Care Team (Late st Contact Info) Description 10/08/2024 1:30 PM CDT Therapy Visit [address] [address] Sammy Villa MD [address] [place] [address] Christopher Ge, PT 10/16/2024 9:20 AM CDT Therapy Visit [address] [address] Sammy Villa MD [address] [place] [address] Christopher Ge, PT 10/22/2024 11:40 AM CDT Therapy Visit [address] [address] Sammy Villa MD 420 [facility] [address] [place], [place] [address] Christopher Ge, PT documented as of this encounter Visit Diagnoses Not on filedocumented in this encounter Additional Health Concerns Assessment Noted Time PHQ-9 Depression Total Score: 0 05/02/19 10:52 AM EDITOR DEPARTMENT documented as of this encounter Care Teams Set Up Mechanic Crown Assembly Machine Relationship Specialty [place] [address] [place] [address] PCP - General Family Medicine 12/24/20 [place] [address] [place] [address] Assigned PCP 01/04/21 Stan Barnes MD [address] [place] [address] Assigned Surgical Provider 08/30/21 08/31/23 Trent Qureshi MD [facility] [address] [place] [address] Orthopaedic Surgery 09/16/21 documented as of this encounter
--- OUTSIDE RECORDS SUMMARY | 2024-10-02 10:35 | XMS_ITS | Encounter Summary ---
Author Organization [facility] Address [address] [place] [address] Care Team Providers Care Fur Dry Cleaner Hand Name Role Phone Herb Herman MD Primary Care Provider [phone] Herb Herman MD Unavailable Stan Barnes MD Unavailable + [phone] Trent Qureshi MD Unavailable [phone] Encounter Details Date Type Department Care Team (Late st Contact Info) Description 04/18/2023 [facility] Medical Advice [address] [address] Brooke Barnes Social History Tobacco Use Types Packs/Day Years [...] How often do you attend chur or restorationism services? More than 4 times per year [...] Answer Date Recorded PHQ-2 Score 0 08/02/2022 [facility] of Occupat ional Health - [...] place to sleep or slept in a assisted (including now)? 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 file documented as of this encounter Plan of Treatment Upcoming Encounters Date Type Department Care Team (Late st Contact Info) Description 10/08/2024 1:30 PM CDT Therapy Visit [address] [address] Sammy Villa MD [address] [place] [address] Christopher Ge, PT 10/16/2024 9:20 AM CDT Therapy Visit [address] [address] Sammy Villa MD [address] [place] [address] Christopher Ge, PT 10/22/2024 11:40 AM CDT Therapy Visit [address] [address] Sammy Villa MD [address] [place] [address] Christopher Ge, PT documented as of this encounter Visit Diagnoses Not on filedocumented in this encounter Additional Health Concerns Assessment Noted Time PHQ-9 Depression Total Score: 1 08/03/19 23 1:10 PM CDT documented as of this encounter Care Teams Fur Dry Cleaner Hand Relationship Specialty [place] [address] [place] [address] PCP - General Family Medicine 12/24/20 [place] [address] [place] [address] Assigned PCP 01/04/21 Stan Barnes MD [address] [place] [address] Assigned Surgical Provider 08/30/21 08/31/23 Trent Qureshi MD [facility] [address] [place] [address] 581105 Orthopaedic Surgery 09/16/21 documented as of this encounter
--- OUTSIDE RECORDS SUMMARY | 2024-10-02 10:35 | XMS_ITS | Encounter Summary ---
Author Organization [facility] Address [address] [place] [address] Care Team Providers Care Bag End Sewer Name Role Phone Daniel Plaza MD Primary Care Provider Daniel Plaza MD Unavailable [phone] Daniel Plaza MD Unavailable Stan Barnes MD Unavailable [phone] Herb Herman MD Primary Care Provider Herb Herman MD Unavailable Stan Barnes MD Unavailable [phone] Trent Qureshi MD Unavailable [phone] Encounter Details Date Type Department Care Team (Late st Contact Info) Description 02/28/2008 [facility] Medical Advice [address] [address] Daniel Plaza MD [address] [place] [address] Social History Tobacco Use Types Packs/Day Years Used Date Smoking Tobacco: Never Alcohol Use Standard Drinks/Week Comments Yes 0 (1 standard drink = 0.6 oz pur e alcohol) social Comments No Sex and Gender Information Value Date Recorded Sex Assigned at Female 01/16/2019 8:38 AM CDT Legal Sex Female 3:11 AM HOME HEALTH CARE PROVIDER Gender Identity Female 01/16/2019 8:38 AM CDT Sexual Orientation Choose not to disclose 2021 11:32 AM HOME HEALTH CARE PROVIDER documented as of this encounter Plan of Treatment Upcoming Encounters Date Type Department Care Team (Late st Contact Info) Description 10/08/2024 1:30 PM CDT Therapy Visit [address] [address] Sammy Villa MD [address] [place] [address] Christopher Ge, PT 10/16/2024 9:20 AM CDT Therapy Visit [address] [address] Sammy Villa MD [address] [place] [address] Christopher Ge, PT 10/22/2024 11:40 AM CDT Therapy Visit [address] [address] Sammy Villa MD [address] [place] [address] Christopher Ge, PT documented as of this encounter Visit Diagnoses Not on filedocumented in this encounter Care Teams Bag End Sewer Relationship Specialty Start Date End Date Daniel Plaza MD [address] [place] [address] PCP - General 06/29/10 12/23/20 Daniel Plaza MD [address] [place] [address] PCP - Assigned PCP 02/05/08 06/13/18 [place] [address] [place] [address] PCP - General Family Medicine 12/24/20 Daniel Plaza MD [address] [place] [address] Assigned PCP 01/13/12 01/03/21 Stan Barnes MD [address] [place] [address] Assigned Surgical Provider 02/01/20 07/19/20 [place] [address] [place] [address] Assigned PCP 01/04/21 Stan Barnes MD [address] [place] [address] Assigned Surgical Provider 08/30/21 08/31/23 Trent Qureshi MD [facility] [address] [place] [address] 780395 Orthopaedic Surgery 09/16/21 documented as of this encounter
--- OUTSIDE RECORDS SUMMARY | 2024-10-02 10:35 | XMS_ITS | Encounter Summary ---
Author Organization [facility] Address [address] [place] [address] Care Team Providers Care Dental Laboratory Worker Name Role Phone Herb Herman MD Primary Care Provider Herb Herman MD Unavailable Trent Qureshi MD Unavailable [phone] Encounter Details Date Type Department Care Team (Late st Contact Info) Description 09/10/2024 Medical Correspondence [facility] Health Information Management [address] [facility] [address] [place] [address] Scan, Non-Provider Social History Tobacco Use Types Packs/Day Years [...] often do you attend chur ch or taoism services? 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 file documented as of this encounter Plan of Treatment Upcoming Encounters Date Type Department Care Team (Late st Contact Info) Description 10/08/2024 1:30 PM CDT Therapy Visit [address] [address] Sammy Villa MD [address] [place] [address] Christopher Ge, PT 10/16/2024 9:20 AM CDT Therapy Visit [address] [address] Sammy Villa MD [address] [place] [address] Christopher Ge, PT 10/22/2024 11:40 AM CDT Therapy Visit [address] [address] Sammy Villa MD [address] [place] [address] Christopher Ge PT documented as of this encounter Visit Diagnoses Not on filedocumented in this encounter Additional Health Concerns Assessment Noted Time PHQ-9 Depression Total Score: 0 05/02/19 25 10:13 AM RAIL DOWELING MACHINE OPERATOR documented as of this encounter Care Teams Dental Laboratory Worker Relationship Specialty [place] [address] [place] [address] PCP - General Family Medicine 12/24/20 [place] [address] [place] [address] Assigned PCP 01/04/21 Trent Qureshi MD [facility] [address] [place] [address] Orthopaedic Surgery 09/16/21 documented as of this encounter
--- OUTSIDE RECORDS SUMMARY | 2024-10-02 10:35 | XMS_ITS | Encounter Summary ---
Author Organization [facility] Address [address] [place] [address]. [place] [address] Care Team Providers Care Cable Television Line Technician Name Role Phone Herb Herman MD Primary Care Provider [phone] Herb Herman MD Unavailable Trent Qureshi MD Unavailable [phone] Reason for Visit * Reason Onset Date Comments Procedure 09/20/2024 L3-4 or L4-5 Int erlaminar ARTHUR Encounter Details Date Type Department Care Team (Late st Contact Info) Description 09/20/2024 [facility] Management [address] [place] [address] Pain Management Program, [facility] Procedure (L3-4 or L4-5 Interlaminar ARTHUR) Social History Tobacco Use Types Packs/Day Years [...] you attend [facility] or roman catholic services? More than 4 times per year 06/08/2021 Do you belong to any clubs o r organizations such as judaism groups, unions, fraternal or athletic groups, or [...] Answer Date Recorded PHQ-2 Score 0 05/02/2024 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 [facility] If choosing [facility] for location, please inform patient: [facility] is a Hospital based clinic. Before your visit, you should check with your insurance about how it covers the charges for facility services in a hospital-based clinic.?? Procedure ordered by Dr. Villa Procedure ordered? L3-4 or L4-5 Interlaminar ARTHUR Transforaminal Cervical ARTHUR - Send to [facility]) - No Community Site providers perform this procedure What insurance would patient like us to bill for this procedure? Medicare/Medica IF SCHEDULING IN [facility] PAIN OR SPINE PLEASE SCHEDULE AT LEAST 7-10 BUSINESS DAYS OUT SO A PA CAN BE OBTAINED Worker's comp or MVA (motor vehicle accident) -Any injection DO NOT SCHEDULE and route to Margarito Venegas. [facility] insurance - For ALL INJECTIONS DO NOT SCHEDULE and route to Marcy Lees. ALL BCBS, Humana and [employer] CIGNA - DO NOT SCHEDULE and route to Marcy BRIDGESA- ALL INJECTIONS- route to Marcy Lees Is patient scheduled at [facility]? No If YES, route every encounter to [facility] CARE NAVIGATION POOL [[phone]] Is an director of pupil personnel program needed? No Patient has a mobile lounge driver or operator home? (Review Grid) YES: ok Any chance of ? NO If YES, do NOT schedule and route to pool hand - Dr. Delgado route to PM&R Nurse [[id number]] Is patient actively being treated for cancer or immunocompromised? No If YES, do NOT schedule and route to pool hand/ Dr. Delgado's Team Does the patient have a bleeding or clotting disorder? No If YES, okay to schedule AND route to RN nurse / Dr. Delgado's Team (For any patients with platelet count <100, RN must forward to provider) Is patient taking any Blood Thinners OR Antiplatelet medication? No If hold needed, do NOT schedule, route to pool hand/ Dr. Delgado's Team Examples: Blood Thinners: (Coumadin, Warfarin, Jantoven, Pradaxa, Xarelto, Eliquis, Edoxaban, Enoxaparin, Lovenox, Heparin, Arixtra, Fondaparinux or Fragmin) Antiplatelet Medications: (Plavix, Brilinta or Effient) Is patient taking any aspirin products (includes: Aspirin 81 mg, Excedrin, and Fiorinal)? No. If yes route to pool hand/ Dr. Delgado's Team - Do not schedule Is patient taking any GLP-1 Antagonist (hold needed for sedation patients only) No (semaglutide (Ozempic, Wegovy), dulaglutide (Trulicity), exenatide ER (Bydureon), tirzepatide (Mounjaro), Liraglutide (Saxenda, Victoza), semaglutide (Rybelsus), Terzepatide (Zepbound) If YES, okay to schedule AND route to RN nurse / Dr. Delgado's Team Any allergies to contrast dye, iodine, shellfish, or numbing and steroid medications? No If YES, schedule and add allergy information to appointment notes AND route to the pool hand/ Dr. Delgado's Team If ARTHUR and Contrast Dye / Iodine Allergy? DO NOT SCHEDULE, route to pool hand/ Dr. Delgado's Team Allergies: Morphine, Doxycycline, Atorvastatin, Crestor [rosuvastatin], Erythromycin, Niacin, Piroxicam, Pravastatin, and Simvastatin Does patient have an active infection or treated for one within the past week? No Is patient currently taking any antibiotics or steroid medications? No For patients on chronic, preventative, or prophylactic antibiotics, procedures may be scheduled. For patients on antibiotics for active or recent infection, schedule 4 days after completed. For patients on steroid medications, schedule 4 days after completed. Has the patient had a flu shot or any other vaccinations within the past 7 days? No If yes, explain that for the vaccine to work best they need to: wait 1 week before and 1 week after getting any Vaccine wait 1 week before and 2 weeks after getting any Covid Vaccine If patient has concerns about the timing, send to [facility]/ Dr. Delgado's Team Does patient have an MRI/CT? YES: 02/15/2024 Include Date and Check Procedure Scheduling Grid to see if required. Was the MRI/CT done within the last 3 years? Yes If no route to [facility]/ Dr. Delgado's Team If yes, where was the MRI/CT done? [facility] Refer to PACS Transmissions list for approved external locations and route to [facility] High Priority/ Dr. Delgado's Team If MRI was not done at approved external location do NOT schedule and route to [facility]/ Dr. Delgado's Team If patient has an imaging disc, the injection MAY be scheduled but patient must bring disc to appt or appt will be cancelled. Is patient able to transfer to a procedure table with minimal or no assistance? Yes If no, do NOT schedule and route to [facility]/ Dr. Delgado's Team Procedure Specific Instructions: If celiac plexus block, informed patient NPO for 6 hours and that it is okay to take medications with sips of water, especially blood pressure medications Not Applicable If this is for a cervical procedure, informed patient that aspirin needs to be held for 6 days. NotApplicable Sedation, If Sedation is ordered for any procedure, patient must be NPO for 6 hours prior to procedure Not Applicable If IV needed: Do not schedule procedures requiring IV placement in the first appointment of the day or first appointment after lunch. Do NOT schedule at 0745, 0815 or 1245. Instructed patient to arrive 30 minutes early for IV start if required. (Check Procedure SchedulingGrid) Not Applicable Reminders: If you are started on any steroids or antibiotics between now and your appointment, you must contact us because the procedure may need to be cancelled. Yes As a reminder, receiving steroids can decrease your body's ability to fight infection. Would you still like to move forward with scheduling the injection? Yes IV Sedation is not provided for procedures. If oral anti-anxiety medication is needed, the patient should request this from their referring provider. Instruct patient to arrive as directed prior to the scheduled appointment time: If IV needed 30 minutes before appointment time For patients 85 or older we recommend having an adult stay w/ them for the remainder of the day. If the patient is Diabetic, remind them to bring their glucometer. Dr. Tapia Pt's - Imaging Orders Needed Please send all injections to transcribing machine mechanic Not Applicable Red Flags? Not Applicable Does the patient have any questions? NO Renetta Castano [facility] * Addendum Note - Destiny Velazquez RN - 09/20/2024 2:37 PM CDTAddended by: DESTINY VELAZQUEZ on: 09/21/2024 12:19 PM Modules accepted: Orders documented in this encounter Plan of Treatment Upcoming Encounters Date Type Department Care Team (Late st Contact Info) Description 10/08/2024 1:30 PM CDT Therapy Visit [address] [address] Sammy Villa MD [address] [place] [address] [phone] Christopher Ge, PT 10/16/2024 9:20 AM CDT Therapy Visit [address] [place] [address] Sammy Villa MD [address] [place] [address]842 Christopher Ge, PT 10/22/2024 11:40 AM CDT Therapy Visit [facility] [address] [facility] [address] [place] [address] Sammy Villa MD [address] [facility] [address] [place] [address] Christopher Ge, PT documented as of this encounter Visit Diagnoses Diagnosis Lumbar radiculopathy- Primary Thoracic or lumbosacral neuritis or radiculitis, unspecified documented in this encounter Additional Health Concerns Assessment Noted Time PHQ-9 Depression Total Score: 0 05/02/19 10:13 AM TUFTER documented as of this encounter Care Teams Cable Television Line Technician Relationship Specialty [place] [address] [place] [address] PCP - General Family Medicine 12/24/20 [place] [address] [place] [address] Assigned PCP 01/04/21 Trent Qureshi MD [facility] [address] [place] [address] Orthopaedic Surgery 09/16/21 documented as of this encounter
--- OUTSIDE RECORDS SUMMARY | 2024-10-02 10:35 | XMS_ITS | Encounter Summary ---
Author Organization [facility] Address [address] [place] [address] Care Team Providers Care Outdoor Adventure Leader Name Role Phone Herb Herman MD Primary Care Provider [phone] Herb Herman MD Unavailable Trent Qureshi MD Unavailable [phone] Reason for Visit * Reason Onset Date Comments Previsit 09/19/2024 Encounter Details Date Type Department Care Team (Late st Contact Info) Description 09/19/2024 PRE VISIT [facility] [address] [place] [address] Sammy Villa MD [address] [facility] [address] [place] [address] Previsit Social History Tobacco Use Types Packs/Day Years [...] week 06/08/2021 How often do you attend [facility] or orthodoxy services? 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 file documented as of this encounter Miscellaneous Notes * Telephone Encounter - Moshe Pace - 09/13/2024 10:38 AM CDT Action Action Taken Request sent to [facility] PATIENTS - NEW PROTOCOL PREVISIT RECORDS RECEVEIVED FROM: Referred by Douglas Hernandez MD REASON FOR VISIT: Low back pain PROVIDER: Daisy DATE OF APPT: 09/19/2024 NOTES (FOR ALL VISITS) STATUS DETAILS OFFICE NOTE from referring provider Referral in chart Notes scanned into chart OFFICE NOTE from other specialist DISCHARGE SUMMARY from hospital DISCHARGE REPORT from ER OPERATIVE REPORT EMG REPORT Injection Physical therapy PT last completed 06/22/2023 IMAGING (FOR ALL VISITS) STATUS DETAILS MRI (HEAD, NECK, SPINE) RECEIVED MR lumbar 02/2024 XRAY (SPINE) *NEUROSURGERY* received XR lumbar 09/10/2024 and 03/01/2024 CT (HEAD, NECK, SPINE) Does patient have C2C? Year last updated Action YES [x] 2012 Please update at appointment if outdated more than 5 years NO [] N/A Please complete C2C at appointment documented in this encounter Plan of Treatment Upcoming Encounters Date Type Department Care Team (Late st Contact Info) Description 10/08/2024 1:30 PM CDT Therapy Visit [address] [address] Sammy Villa MD [address] [address] Christopher Ge, PT 10/16/2024 9:20 AM CDT Therapy Visit [address] [address] Sammy Villa MD [address] [address] Christopher Ge, PT 10/22/2024 11:40 AM CDT Therapy Visit [address] [address] Sammy Villa MD [address] [place] [address] Christopher Ge, PT documented as of this encounter Visit Diagnoses Not on filedocumented in this encounter Additional Health Concerns Assessment Noted Time PHQ-9 Depression Total Score: 0 05/02/19 25 10:13 AM MANAGER EVENT documented as of this encounter Care Teams Outdoor Adventure Leader Relationship Specialty [place] [address] [place] [address] PCP - General Family Medicine 12/24/20 [place] [address] [place] [address] Assigned PCP 01/04/21 Trent Qureshi MD [facility] [address] [place] [address] Orthopaedic Surgery 09/16/21 documented as of this encounter
--- OUTSIDE RECORDS SUMMARY | 2024-10-02 10:35 | XMS_ITS | Encounter Summary ---
Author Organization [facility] Address [address] [place] [address] Care Team Providers Care Aboriginal Education Worker Coordinator Name Role Phone Herb Herman MD Primary Care Provider Herb Herman MD Unavailable Stan Barnes MD Unavailable [phone] Trent Qureshi MD Unavailable [phone] Encounter Details Date Type Department Care Team (Late st Contact Info) Description 07/23/2021 [facility] Medical Advice [address] [address] Brooke Barnes Social History Tobacco [...] any clubs o r organizations such as congregation groups, unions, fraternal or athletic groups, or [...] Answer Date Recorded PHQ-2 Score 0 06/24/2021 [facility] of Occupat ional Health - Occupational Stress [...] place to sleep or slept in a skilled nursing (including now)? No 06/08/2021 Comments No Sex and Gender Information Value Date Recorded Sex Assigned at Female 01/16/2019 8:38 AM CDT Legal Sex Female 3:11 AM TEAM ASSEMBLER Gender Identity Female 01/16/2019 8:38 AM CDT Sexual Orientation Choose not to disclose 2021 11:32 AM TEAM ASSEMBLER Occupation Industry Job Start Date Job End [...] Description 10/08/2024 1:30 PM CDT Therapy Visit [address] [address] Sammy Villa MD [address] [place] [address] [phone] Christopher Ge, PT 10/16/2024 9:20 AM CDT Therapy Visit [address] [address] Sammy Villa MD [address] [place] [address] Christopher Ge, PT 10/22/2024 11:40 AM CDT Therapy Visit [address] [address] Sammy Villa MD [address] [place] [address] Christopher Ge PT documented as of this encounter Visit Diagnoses Not on filedocumented in this encounter Additional Health Concerns Assessment Noted Time PHQ-9 Depression Total Score: 0 06/10/19 22 7:01 AM TEAM ASSEMBLER documented as of this encounter Care Teams Aboriginal Education Worker Coordinator Relationship Specialty [place] [address] [place] [address] PCP - General Family Medicine 12/24/20 [place] [address] [place] [address] Assigned PCP 01/04/21 Stan Barnes MD [address] [place] [address] Assigned Surgical Provider 08/30/21 08/31/23 Trent Qureshi MD [facility] [address] [place] [address] Orthopaedic Surgery 09/16/21 documented as of this encounter
--- OUTSIDE RECORDS SUMMARY | 2024-10-02 10:36 | XMS_ITS | Encounter Summary ---
Author Organization [facility] Address [address] [place] [address] Care Team Providers Care Electrician Helper Name Role Phone Daniel Plaza MD Primary Care Provider Daniel Plaza MD Unavailable [phone] Daniel Plaza MD Unavailable Stan Barnes MD Unavailable [phone] Herb Herman MD Primary Care Provider Herb Herman MD Unavailable Stan Barnes MD Unavailable [phone] Trent Qureshi MD Unavailable [phone] Encounter Details Date Type Department Care Team (Late st Contact Info) Description 01/09/2014 [facility] [place] [address] [address] Daniel Plaza MD [address] [place] [address] Social History Tobacco Use Types Packs/Day Years Used Date Smoking Tobacco: Never Smokeless Tobacco: Never Alcohol Use Standard Drinks/Week Comments No 0 (1 standard drink = 0.6 oz pur e alcohol) Comments No Sex and Gender Information Value Date Recorded Sex Assigned at Female 01/16/2019 8:38 AM CDT Legal Sex Female 3:11 AM PBX SUPERVISOR Gender Identity Female 01/16/2019 8:38 AM CDT Sexual Orientation Choose not to disclose 2021 11:32 AM PBX SUPERVISOR documented as of this encounter Plan of Treatment Upcoming Encounters Date Type Department Care Team (Late st Contact Info) Description 10/08/2024 1:30 PM CDT Therapy Visit [address] [address] Sammy Villa MD [address] [place] [address] Christopher Ge, PT 10/16/2024 9:20 AM CDT Therapy Visit [address] [address] Sammy Villa MD [address] [place] [address] Christopher Ge, PT 10/22/2024 11:40 AM CDT Therapy Visit [address] [address] Sammy Villa MD [address] [place] [address] Christopher Ge, PT documented as of this encounter Visit Diagnoses Not on filedocumented in this encounter Care Teams Electrician Helper Relationship Specialty Start Date End Date Daniel Plaza MD [address] [place] [address] PCP - General 06/29/10 12/23/20 Daniel Plaza MD [address] [place] [address] PCP - Assigned PCP 02/05/08 06/13/18 [place] [address] [place] [address] PCP - General Family Medicine 12/24/20 Daniel Plaza MD [address] [place] [address] Assigned PCP 01/13/12 01/03/21 Stan Barnes MD [address] [place] [address] Assigned Surgical Provider 02/01/20 07/19/20 [place] [address] [place] [address] Assigned PCP 01/04/21 Stan Barnes MD [address] [place] [address] Assigned Surgical Provider 08/30/21 08/31/23 Trent Qureshi MD [facility] [address] [place] [address] 769045 Orthopaedic Surgery 09/16/21 documented as of this encounter
--- OUTSIDE RECORDS SUMMARY | 2024-10-02 10:36 | XMS_ITS | Encounter Summary ---
Author Organization [facility] Address [address] [place] [address] Care Team Providers Care Stock Counter Name Role Phone Herb Herman MD Primary Care Provider [phone] Herb Herman MD Unavailable Stan Barnes MD Unavailable [phone] Trent Qureshi MD Unavailable [phone] Encounter Details Date Type Department Care Team (Late st Contact Info) Description 09/15/2021 Psychiatric Only [facility] [address] [place] [address] Manny Petersen MD [address] [place], [place] [id number] Encounter for laboratory testing for COVID-19 virus Social History Tobacco Use Types Packs/Day Years [...] week 06/08/2021 How often do you attend [facility] or roman catholic services? More than [...] PHQ-2 Answer Date Recorded PHQ-2 Score 0 09/15/2021 [facility] - Occupational Stress Questionnaire Answer [...] place to sleep or slept in a fdc (including now)? 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 No / Unsure 09/17/2021 11:05 AM CDT documented as of this encounter Plan of Treatment Upcoming Encounters Date Type Department Care Team (Late st Contact Info) Description 10/08/2024 1:30 PM CDT Therapy Visit [address] [address] Sammy Villa MD [address] [place] [address] Christopher Ge, PT 10/16/2024 9:20 AM CDT Therapy Visit [address] [address] Sammy Villa MD [address] [place] [address] Christopher Ge, PT 10/22/2024 11:40 AM CDT Therapy Visit [facility] [address] [facility] [address] [place] [phone] Sammy Villa MD [address] [facility] 96 [place], [place] 8[address] Christopher Ge, PT documented as of this encounter Results * Asymptomatic COVID-19 Virus (Coronavirus) by PCR Nose (09/17/2021 11:08 AM CDT) SARS CoV2 PCR Negative Negative, Testing sent to reference lab. Results will be returned via unsolicited result 09/18/2021 11:15 AM CDT [facility] Comment:NEGATIVE: SARS-CoV-2 (COVID-19) RNA not detected, presumed negative. Swab NASAL STRUCTURE / Unknown Non-blood Collection / Unknown 09/17/2021 11:08 AM CDT 09/17/2021 11:08 AM CDT Narrative [facility] - 09/18/2021 11:15 AM CDT Testing was performed using the balbina SARS-CoV-2 assay on the balbina 6800 System. This test should be ordered for the detection of SARS-CoV-2 in individuals who meet SARS-CoV-2 clinical and/or epidemiological criteria. Test performance is unknown in asymptomatic patients. This test is for in vitro diagnostic use under the FDA EUA for laboratories certified under CLIA to perform high and/or moderate complexity testing. This test has not been FDA cleared or approved. A negative result does not rule out the presence of PCR inhibitors in the specimen or target RNA in concentration below the limit of detection for the assay. The possibility of a false negative should be considered if the patient's recent exposure or clinical presentation suggests COVID-19. This test was validated by the [facility]. This laboratory is certified under the Clinical Laboratory Improvement Amendments of 1988 (CLIA-88) as qualified to perform high and/or moderate complexity laboratory testing. Manny Petersen MD LAB - MICRO GENERAL ORDERABLES F inal Result [facility] Inf. Diseases Diag. Lab [address] [facility], Room [address] [place] [id number] [phone] documented in this encounter Visit Diagnoses Diagnosis Encounter for laboratory testing for COVID-19 virus documented in this encounter Additional Health Concerns Assessment Noted Time PHQ-9 Depression Total Score: 1 08/23/19 22 7:03 AM CDT documented as of this encounter Care Teams Stock Counter Relationship Specialty [place] [address] [place] [address] PCP - General Family Medicine 12/24/20 [place] [address] [place] [address] Assigned PCP 01/04/21 Stan Barnes MD [address] [place] [address] Assigned Surgical Provider 08/30/21 08/31/23 Trent Qureshi MD [facility] [address] [place] [address] Orthopaedic Surgery 09/16/21 documented as of this encounter
--- OUTSIDE RECORDS SUMMARY | 2024-10-02 10:36 | XMS_ITS | Encounter Summary ---
Author Organization [facility] Address [address] [place] [address] Care Team Providers Care Yard Worker Name Role Phone Daniel Plaza MD Primary Care Provider Daniel Plaza MD Unavailable [phone] Daniel Plaza MD Unavailable Stan Barnes MD Unavailable [phone] Herb Herman MD Primary Care Provider Herb Herman MD Unavailable Stan Barnes MD Unavailable [phone] Trent Qureshi MD Unavailable [phone] Encounter Details Date Type Department Care Team (Late st Contact Info) Description 10/30/2014 [facility] [place] Medical Advice [address] [address] Daniel Plaza MD [address] [place] [address] Social History Tobacco Use Types Packs/Day Years Used Date Smoking Tobacco: Never Smokeless Tobacco: Never Alcohol Use Standard Drinks/Week Comments No 0 (1 standard drink = 0.6 oz pur e alcohol) Comments No Sex and Gender Information Value Date Recorded Sex Assigned at Female 01/16/2019 8:38 AM CDT Legal Sex Female 3:11 AM SENIOR SEARCH MARKETING ANALYST Gender Identity Female 01/16/2019 8:38 AM CDT Sexual Orientation Choose not to disclose 2021 11:32 AM SENIOR SEARCH MARKETING ANALYST documented as of this encounter Plan of Treatment Upcoming Encounters Date Type Department Care Team (Late st Contact Info) Description 10/08/2024 1:30 PM CDT Therapy Visit [address] [address] Sammy Villa MD [address] [place] [address] Christopher Ge, PT 10/16/2024 9:20 AM CDT Therapy Visit [address] [address] Sammy Villa MD [address] [place] [address] Christopher Ge, PT 10/22/2024 11:40 AM CDT Therapy Visit [address] [address] Sammy Villa MD [address] [place] [address] Christopher Ge, PT documented as of this encounter Visit Diagnoses Not on filedocumented in this encounter Care Teams Yard Worker Relationship Specialty Start Date End Date Daniel Plaza MD [address] [place] [phone] PCP - General 06/29/10 12/23/20 Daniel Plaza MD [address] [place] [phone] PCP - Assigned PCP 02/05/08 06/13/18 [place] [address] [place] [address] PCP - General Family Medicine 12/24/20 Daniel Plaza MD [address] [place] [phone] Assigned PCP 01/13/12 01/03/21 Stan Barnes MD [address] [place] [address] Assigned Surgical Provider 02/01/20 07/19/20 [place] [address] [place] [address] Assigned PCP 01/04/21 Stan Barnes MD [address] [place] [address] Assigned Surgical Provider 08/30/21 08/31/23 Trent Qureshi MD [facility] [address] [place] [address] 091435 Orthopaedic Surgery 09/16/21 documented as of this encounter
--- OUTSIDE RECORDS SUMMARY | 2024-10-02 10:36 | XMS_ITS | Encounter Summary ---
Author Organization [facility] Address [address] [place] [address]41 Care Team Providers Care Fisheries Manager Name Role Phone Herb Herman MD Primary Care Provider Herb Herman MD Unavailable Stan Barnes MD Unavailable [phone] Trent Qureshi MD Unavailable [phone] Reason for Visit * Reason Comments Medication Refill Encounter Details Date Type Department Care Team (Late st Contact Info) Description 01/28/[address] [address] Daniel Plaza MD [address] [place] [address] Medication Refill Social History Tobacco Use Types Packs/Day Years Used Date Smoking Tobacco: Never Smokeless Tobacco: Never Alcohol Use Standard Drinks/Week Comments No 0 (1 standard drink = 0.6 oz pur e alcohol) PHQ-2 Answer Date Recorded PHQ-2 Score 0 12/24/2020 Comments No Sex and Gender Information Value Date Recorded Sex Assigned at Female 01/16/2019 8:38 AM CDT Legal Sex Female 3:11 AM REGIONAL ENVIRONMENTAL MANAGER Gender Identity Female 01/16/2019 8:38 AM CDT Sexual Orientation Choose not to disclose 2021 11:32 AM REGIONAL ENVIRONMENTAL MANAGER documented as of this encounter Miscellaneous Notes * Telephone Encounter - Herb Herman MD - 01/28/2021 12:37 PM CDT Patient was switched from separate tablets of lisinopril and hydrochlorothiazide to a combination pill called Zestoretic which contains both medications already. Thank you, Herb Herman MD * Telephone Encounter - Alivia Dhaliwal RN - 01/28/2021 10:24 AM CDT Routing refill request to provider for review/approval because: Drug not active on patient's medication list Alivia Dhaliwal RN documented in this encounter Plan of Treatment Upcoming Encounters Date Type Department Care Team (Late st Contact Info) Description 10/08/2024 1:30 PM CDT Therapy Visit [address] [address] Sammy Villa MD [address] [place] [address] Christopher Ge, PT 10/16/2024 9:20 AM CDT Therapy Visit [address] [address] Sammy Villa MD [address] [place] [address] Christopher Ge, PT 10/22/2024 11:40 AM CDT Therapy Visit [address] [address] Sammy Villa MD [address] [place] [address] [place] [address] Christopher Ge, PT documented as of this encounter Visit Diagnoses Diagnosis Edema, unspecified type Essential hypertension Unspecified essential hypertension Type 2 diabetes mellitus without complication, without long-term current use of insulin (H) documented in this encounter Additional Health Concerns Assessment Noted Time PHQ-9 Depression Total Score: 0 12/26/19 21 7:02 AM CDT documented as of this encounter Care Teams Fisheries Manager Relationship Specialty [place] [address] [place] [address] PCP - General Family Medicine 12/24/20 [place] [address] [place] [address] Assigned PCP 01/04/21 Stna Barnes MD [address] [place] [address] 615295 Assigned Surgical Provider 08/30/21 08/31/23 Trent Qureshi MD [facility] [address] [place] [address] 695415 Orthopaedic Surgery 09/16/21 documented as of this encounter
--- OUTSIDE RECORDS SUMMARY | 2024-10-02 10:36 | XMS_ITS | Encounter Summary ---
Author Organization [facility] Address [address] [place] [address]. [place] [address] Care Team Providers Care Clinical Pharmacy Technician Name Role Phone Herb Herman MD Primary Care Provider [phone] Herb Herman MD Unavailable Stan Barnes MD Unavailable [phone] Trent Qureshi MD Unavailable [phone] Encounter Details Date Type Department Care Team (Late st Contact Info) Description 09/23/2021 [facility] [address] 4[address] [place] [address] [facility] Social History Tobacco Use Types Packs/Day Years [...] How often do you attend chur or yazidism services? More than 4 times [...] [facility] - [...] place to sleep or slept in a fci (including now)? 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 No / Unsure 09/21/2021 6:17 AM CDT documented as of this encounter Plan of Treatment Upcoming Encounters Date Type Department Care Team (Late st Contact Info) Description 10/08/2024 1:30 PM CDT Therapy Visit [address] [address] Sammy Villa MD [address] [place] [address] Christopher Ge, PT 10/16/2024 9:20 AM CDT Therapy Visit [address] [address] Sammy Villa MD [address] [place] [address] Christopher Ge, PT 10/22/2024 11:40 AM CDT Therapy Visit [address] [address] Sammy Villa MD [address] [place] [address] Christopher Ge PT documented as of this encounter Visit Diagnoses Not on filedocumented in this encounter Additional Health Concerns Assessment Noted Time PHQ-9 Depression Total Score: 1 08/23/19 22 7:03 AM CDT documented as of this encounter Care Teams Clinical Pharmacy Technician Relationship Specialty [place] [address] [place] [address] PCP - General Family Medicine 12/24/20 [place] [address] [place] [address] Assigned PCP 01/04/21 Stan Barnes MD [address] [place] [address] Assigned Surgical Provider 08/30/21 08/31/23 Trent Qureshi MD [facility] [address] [place] [address] Orthopaedic Surgery 09/16/21 documented as of this encounter
--- OUTSIDE RECORDS SUMMARY | 2024-10-02 10:36 | XMS_ITS | Encounter Summary ---
Author Organization [facility] Address [address] [place] [address] Care Team Providers Care Senior Firewall Engineer Name Role Phone Daniel Plaza MD Primary Care Provider Daniel Plaza MD Unavailable Daniel Plaza MD Unavailable [phone] Stan Barnes MD Unavailable [phone] Herb Herman MD Primary Care Provider [phone] Herb Herman MD Unavailable Stan Barnes MD Unavailable [phone] Trent Qureshi MD Unavailable [phone] Encounter Details Date Type Department Care Team (Late st Contact Info) Description 10/30/2014 [facility] Advice [address] [address] Daniel Plaza MD [address] [place] [address] Social History Tobacco Use Types Packs/Day Years Used Date Smoking Tobacco: Never Smokeless Tobacco: Never Alcohol Use Standard Drinks/Week Comments No 0 (1 standard drink = 0.6 oz pur e alcohol) Comments No Sex and Gender Information Value Date Recorded Sex Assigned at Female 01/16/2019 8:38 AM CDT Legal Sex Female 3:11 AM CHINESE LANGUAGE PROFESSOR Gender Identity Female 01/16/2019 8:38 AM CDT Sexual Orientation Choose not to disclose 2021 11:32 AM CHINESE LANGUAGE PROFESSOR documented as of this encounter Miscellaneous Notes * Telephone Encounter - Daniel Plaza MD - 10/31/2014 4:13 PM CDT See message - 1:30 pm is when I can see her... * Telephone Encounter - Moshe Pace - 10/31/2014 1:19 PM CDT The patient stated she would wait till Tuesday morning to see if you could fit her in that afternon * Telephone Encounter - Daniel Plaza MD - 10/30/2014 1:39 PM CDT FYI, please assist in getting an appointment documented in this encounter Plan of Treatment Upcoming Encounters Date Type Department Care Team (Late st Contact Info) Description 10/08/2024 1:30 PM CDT Therapy Visit [address] [place] [address] Sammy Villa MD [address] [place] [address]115 Christopher Ge, PT 10/16/2024 9:20 AM CDT Therapy Visit [address] [place] [address] Sammy Villa MD [address] [place] [address] 854785 Christopher Ge, PT 10/22/2024 11:40 AM CDT Therapy Visit [facility] [address] [facility] [address] [place] [address] Sammy Villa MD [address] [facility] [address] [place] [address] Christopher Ge, PT documented as of this encounter Visit Diagnoses Not on filedocumented in this encounter Care Teams Senior Firewall Engineer Relationship Specialty Start Date End Date Daniel Plaza MD [address] [place] [phone] PCP - General 06/29/10 12/23/20 Daniel Plaza MD [address] [place] [phone] PCP - Assigned PCP 02/05/08 06/13/18 [place] [address] [place] [address] PCP - General Family Medicine 12/24/20 Daniel Plaza MD [address] [place] [address] Assigned PCP 01/13/12 01/03/21 Stan Barnes MD 909 [place] [address] Assigned Surgical Provider 02/01/20 07/19/20 [place] [address] [place] [address] Assigned PCP 01/04/21 Stan Barnes MD [address] [place] [address] Assigned Surgical Provider 08/30/21 08/31/23 Trent Qureshi MD [facility] [address] [place] [address] Orthopaedic Surgery 09/16/21 documented as of this encounter
--- OUTSIDE RECORDS SUMMARY | 2024-10-02 10:36 | XMS_ITS | Encounter Summary ---
Author Organization [facility] Address [address] [place] [address] Care Team Providers Care Military Logistics Specialist Name Role Phone Daniel Plaza MD Primary Care Provider Daniel Plaza MD Unavailable Daniel Plaza MD Unavailable [phone] Stan Barnes MD Unavailable [phone] Herb Herman MD Primary Care Provider [phone] Herb Herman MD Unavailable Stan Barnes MD Unavailable [phone] Trent Qureshi MD Unavailable [phone] Encounter Details Date Type Department Care Team (Late st Contact Info) Description 12/24/2013 [facility] Advice [address] [address] Daniel Plaza MD [address] [place] [address] Social History Tobacco Use Types Packs/Day Years Used Date Smoking Tobacco: Never Smokeless Tobacco: Never Alcohol Use Standard Drinks/Week Comments No 0 (1 standard drink = 0.6 oz pur e alcohol) Comments No Sex and Gender Information Value Date Recorded Sex Assigned at Female 01/16/2019 8:38 AM CDT Legal Sex Female 3:11 AM EARLY CHILDHOOD ASSOCIATE Gender Identity Female 01/16/2019 8:38 AM CDT Sexual Orientation Choose not to disclose 2021 11:32 AM EARLY CHILDHOOD ASSOCIATE documented as of this encounter Plan of Treatment Upcoming Encounters Date Type Department Care Team (Late st Contact Info) Description 10/08/2024 1:30 PM CDT Therapy Visit [address] [address] Sammy Villa MD [address] [place] [address] Christopher Ge, PT 10/16/2024 9:20 AM CDT Therapy Visit [address] [address] Sammy Villa MD [address] [place] [address] Christopher Ge, PT 10/22/2024 11:40 AM CDT Therapy Visit [address] [address] Sammy Villa MD [address] [place] [address] Christopher Ge, PT documented as of this encounter Visit Diagnoses Not on filedocumented in this encounter Care Teams Military Logistics Specialist Relationship Specialty Start Date End Date Daniel Plaza MD [address] [place] [address] PCP - General 06/29/10 12/23/20 Daniel Plaza MD [address] [place] [address] PCP - Assigned PCP 02/05/08 06/13/18 [place] [address] [place] [address] PCP - General Family Medicine 12/24/20 Daniel Plaza MD [address] [place] [address] Assigned PCP 01/13/12 01/03/21 Stan Barnes MD [address] [place] [address] Assigned Surgical Provider 02/01/20 07/19/20 [place] [address] [place] [address] Assigned PCP 01/04/21 Stan Barnes MD [address] [place] [address] Assigned Surgical Provider 08/30/21 08/31/23 Trent Qureshi MD [facility] [address] [place] [address] 725715 Orthopaedic Surgery 09/16/21 documented as of this encounter
--- OUTSIDE RECORDS SUMMARY | 2024-10-02 10:36 | XMS_ITS | Encounter Summary ---
Author Organization [facility] Address [address] [place] [address] Care Team Providers Care Leach Tank Tender Name Role Phone Daniel Plaza MD Primary Care Provider Daniel Plaza MD Unavailable Daniel Plaza MD Unavailable [phone] Stan Barnes MD Unavailable [phone] Herb Herman MD Primary Care Provider Herb Herman MD Unavailable Stan Barnes MD Unavailable [phone] Trent Qureshi MD Unavailable [phone] Encounter Details Date Type Department Care Team (Late st Contact Info) Description 07/25/2012 My[facility] Medical Advice [address] [address] Daniel Plaza MD [address] [place] [address] Social History Tobacco Use Types Packs/Day Years Used Date Smoking Tobacco: Never Smokeless Tobacco: Never Alcohol Use Standard Drinks/Week Comments No 0 (1 standard drink = 0.6 oz pur e alcohol) Comments No Sex and Gender Information Value Date Recorded Sex Assigned at Female 01/16/2019 8:38 AM CDT Legal Sex Female 3:11 AM DISTRIBUTION COORDINATOR Gender Identity Female 01/16/2019 8:38 AM CDT Sexual Orientation Choose not to disclose 2021 11:32 AM DISTRIBUTION COORDINATOR documented as of this encounter Plan of Treatment Upcoming Encounters Date Type Department Care Team (Late st Contact Info) Description 10/08/2024 1:30 PM CDT Therapy Visit [address] [address] Sammy Villa MD [address] [place] [address] Christopher Ge, PT 10/16/2024 9:20 AM CDT Therapy Visit [address] [address] Sammy Villa MD [address] [place] [address] Christopher Ge, PT 10/22/2024 11:40 AM CDT Therapy Visit [address] [address] Sammy Villa MD [address] [place] [address] Christopher Ge, PT documented as of this encounter Visit Diagnoses Not on filedocumented in this encounter Care Teams Leach Tank Tender Relationship Specialty Start Date End Date Daniel Plaza MD [address] [place] [address] PCP - General 06/29/10 12/23/20 Daniel Plaza MD [address] [place] [address] PCP - Assigned PCP 02/05/08 06/13/18 [place] [address] [place] [address] PCP - General Family Medicine 12/24/20 Daniel Plaza MD [address] [place] [address] Assigned PCP 01/13/12 01/03/21 Stan Barnes MD [address] [place] [address] Assigned Surgical Provider 02/01/20 07/19/20 [place] [address] [place] [address] Assigned PCP 01/04/21 Stan Barnes MD [address] [place] [address] Assigned Surgical Provider 08/30/21 08/31/23 Trent Qureshi MD [facility] [address] [place] [address] 825525 Orthopaedic Surgery 09/16/21 documented as of this encounter
--- OUTSIDE RECORDS SUMMARY | 2024-10-02 10:36 | XMS_ITS | Encounter Summary ---
Author Organization [facility] Address [address] [place] [address]. [place] [address] Care Team Providers Care Machine Presser Name Role Phone Herb Herman MD Primary Care Provider Herb Herman MD Unavailable Stan Barnes MD Unavailable [phone] Trent Qureshi MD Unavailable [phone] Encounter Details Date Type Department Care Team (Late st Contact Info) Description 06/22/2022 MyC Medical Advice [facility] [address] [place] [address] [place] [address] [place] [address] Social History Tobacco Use Types [...] week 06/08/2021 How often do you attend [facility] or hindu services? More than 4 times per year 06/08/2021 Do you belong to any clubs o r organizations such as alevism groups, unions, fraternal or athletic groups, or [...] Answer Date Recorded PHQ-2 Score 0 03/08/2022 [facility] - Occupational Stress Questionnaire Answer [...] in a assisted (including now)? 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 file documented as of this encounter Plan of Treatment Upcoming Encounters Date Type Department Care Team (Late st Contact Info) Description 10/08/2024 1:30 PM CDT Therapy Visit [address] [address] Sammy Villa MD [address] [place] [address] Christopher Ge, PT 10/16/2024 9:20 AM CDT Therapy Visit [address] [address] Sammy Villa MD [address] [place] [address] Christopher Ge, PT 10/22/2024 11:40 AM CDT Therapy Visit [address] [address] Sammy Villa MD [address] [place] [address] Christopher Ge, PT documented as of this encounter Visit Diagnoses Not on filedocumented in this encounter Additional Health Concerns Assessment Noted Time PHQ-9 Depression Total Score: 0 03/08/20 22 10:26 AM STEWARDESS SUPERVISOR documented as of this encounter Care Teams Machine Presser Relationship Specialty [place] [address] [place] [address] PCP - General Family Medicine 12/24/20 [place] [address] [place] [address] Assigned PCP 01/04/21 Stan Barnes MD [address] [place] [address] 369665 Assigned Surgical Provider 08/30/21 08/31/23 Trent Qureshi MD [facility] [address] [place] [address] 520425 Orthopaedic Surgery 09/16/21 documented as of this encounter
--- OUTSIDE RECORDS SUMMARY | 2024-10-02 10:36 | XMS_ITS | Encounter Summary ---
Author Organization [place] Address [address] [place] [address] Care Team Providers Care Cattle Dealer Name Role Phone Herb Herman MD Primary Care Provider [phone] Herb Herman MD Unavailable Trent Qureshi MD Unavailable [phone] Encounter Details Date Type Department Care Team (Latest Contact Info) Description 09/26/2024 Travel Social History Tobacco Use Types Packs/Day [...] often do you attend chur ch or christian services? More than 4 times per year 06/08/2021 Do you belong to any clubs o r organizations such as protestant groups, unions, fraternal or athletic groups, or [...] Answer Date Recorded PHQ-2 Score 0 05/02/2024 [facility] - Occupational Stress Questionnaire Answer [...] in an abandoned building, in an overnight mcfp, or couch-surfing.) Yes 04/25/2023 Are you worried [...] AM CDT Legal Sex Female 3:11 AM SATELLITE INSTALLATION TECHNICIAN Gender Identity Female 01/16/2019 8:38 AM CDT Sexual Orientation Choose not to disclose 2021 11:32 AM SATELLITE INSTALLATION TECHNICIAN 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 file documented as of this encounter Plan of Treatment Upcoming Encounters Date Type Department Care Team (Late st Contact Info) Description 10/08/2024 1:30 PM CDT Therapy Visit [address] [address] Sammy Villa MD [address] [place] [address] Christopher Ge, PT 10/16/2024 9:20 AM CDT Therapy Visit [address] [address] Sammy Villa MD [address] [place] [address] Christopher Ge, PT 10/22/2024 11:40 AM CDT Therapy Visit [address] [address] Sammy Villa MD [address] [place] [address] Christopher Ge, PT documented as of this encounter Visit Diagnoses Not on filedocumented in this encounter Additional Health Concerns Assessment Noted Time PHQ-9 Depression Total Score: 0 05/02/19 25 10:13 AM SATELLITE INSTALLATION TECHNICIAN documented as of this encounter Care Teams Cattle Dealer Relationship Specialty [place] [address] [place] [address] PCP - General Family Medicine 12/24/20 [place] [address] [place] [address] Assigned PCP 01/04/21 Trent Qureshi MD [facility] [address] [place] [address] Orthopaedic Surgery 09/16/21 documented as of this encounter
--- OUTSIDE RECORDS SUMMARY | 2024-10-02 10:36 | XMS_ITS | Encounter Summary ---
Author Organization [facility] Address [address] [place] [address] Care Team Providers Care Advertising Account Representative Name Role Phone Herb Herman MD Primary Care Provider [phone] Herb Herman MD Unavailable Trent Qureshi MD Unavailable [phone] Reason for Visit * Reason Onset Date Comments MyChart Communication 03/30/2024 Encounter Details Date Type Department Care Team (Latest Contact Info) Description 03/30/2024 [facility] [address] [place] [address] [place] [address] [place] [address] MyChart Communication Social History Tobacco [...] week 06/08/2021 How often do you attend [facility] or catholic services? 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 file documented as of this encounter Plan of Treatment Upcoming Encounters Date Type Department Care Team (Late st Contact Info) Description 10/08/2024 1:30 PM CDT Therapy Visit [address] [address] Sammy Villa MD [address] [place] [address] Christopher Ge, PT 10/16/2024 9:20 AM CDT Therapy Visit [address] [address] Sammy Villa MD [address] [place] [address] Christopher Ge, PT 10/22/2024 11:40 AM CDT Therapy Visit [facility] [address] [facility] [address] [place] [address] Sammy Villa MD [address] 057565 Christopher Ge, PT documented as of this encounter Visit Diagnoses Not on filedocumented in this encounter Additional Health Concerns Assessment Noted Time PHQ-9 Depression Total Score: 0 05/02/19 24 10:52 AM DRYWALL PROFESSIONAL documented as of this encounter Care Teams Advertising Account Representative Relationship Specialty [place] [address] [place] [address] PCP - General Family Medicine 12/24/20 [place] [address] [place] [address] Assigned PCP 01/04/21 Trent Qureshi MD [facility] [address] [place] [address] 060255 Orthopaedic Surgery 09/16/21 documented as of this encounter
--- OUTSIDE RECORDS SUMMARY | 2024-10-02 10:36 | XMS_ITS | Encounter Summary ---
Author Organization [facility] Address [address] [place] [address] Care Team Providers Care State Highway Police Officer Name Role Phone Herb Herman MD Primary Care Provider [phone] Herb Herman MD Unavailable Trent Qurehsi MD Unavailable [phone] Encounter Details Date Type Department Care Team (Late st Contact Info) Description 02/20/2024 [facility] [address] [address] Brooke Barnes Social History Tobacco [...] often do you attend chur ch or sikhism services? 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 file documented as of this encounter Plan of Treatment Upcoming Encounters Date Type Department Care Team (Late st Contact Info) Description 10/08/2024 1:30 PM CDT Therapy Visit [address] [address] Sammy Villa MD [address] [place] [address] 769055 Christopher Ge, PT 10/16/2024 9:20 AM CDT Therapy Visit [address] [address] Sammy Villa MD [address] [place] [address] Christopher Ge, PT 10/22/2024 11:40 AM CDT Therapy Visit [address] [address] Sammy Villa MD [address] [place] [address] Christopher Ge PT documented as of this encounter Visit Diagnoses Not on filedocumented in this encounter Additional Health Concerns Assessment Noted Time PHQ-9 Depression Total Score: 0 05/02/19 24 10:52 AM FLAT CLOTHIER documented as of this encounter Care Teams State Highway Police Officer Relationship Specialty [place] [address] [place] [address] PCP - General Family Medicine 12/24/20 [place] [address] [place] [address] Assigned PCP 01/04/21 Trent Qureshi MD [facility] [address] [place] [address] Orthopaedic Surgery 09/16/21 documented as of this encounter
--- OUTSIDE RECORDS SUMMARY | 2024-10-02 10:36 | XMS_ITS | Encounter Summary ---
Author Organization [facility] Address [address] [place] [address] Care Team Providers Care Piercer Name Role Phone Herb Herman MD Primary Care Provider Herb Herman MD Unavailable Stan Barnes MD Unavailable [phone] Trent Qureshi MD Unavailable [phone] Encounter Details Date Type Department Care Team (Late st Contact Info) Description 12/23/2021 [facility] Medical Advice [address] [address] Brooke Barnes Social History Tobacco [...] often do you attend chur ch or anabaptist services? More than 4 times per year [...] PHQ-2 Answer Date Recorded PHQ-2 Score 0 11/24/2021 [facility] of Occupat ional Health - Occupational Stress [...] place to sleep or slept in a [place] facility (including now)? 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 No / Unsure 12/21/2021 7:17 AM CDT documented as of this encounter Plan of Treatment Upcoming Encounters Date Type Department Care Team (Late st Contact Info) Description 10/08/2024 1:30 PM CDT Therapy Visit [address] [address] Sammy Villa MD [address] [place] [address] Christopher Ge, PT 10/16/2024 9:20 AM CDT Therapy Visit [address] [address] Sammy Villa MD [address] [address] Christopher Ge, PT 10/22/2024 11:40 AM CDT Therapy Visit [address] [address] Sammy Villa MD [address] [place] [address] Christopher Ge PT documented as of this encounter Visit Diagnoses Not on filedocumented in this encounter Additional Health Concerns Assessment Noted Time PHQ-9 Depression Total Score: 1 08/23/19 22 7:03 AM CDT documented as of this encounter Care Teams Piercer Relationship Specialty [place] [address] [place] [address] PCP - General Family Medicine 12/24/20 [place] [address] [place] [address] Assigned PCP 01/04/21 Stan Barnes MD [address] [place] [address] Assigned Surgical Provider 08/30/21 08/31/23 Trent Qureshi MD [facility] [address] [place] [address] Orthopaedic Surgery 09/16/21 documented as of this encounter
--- OUTSIDE RECORDS SUMMARY | 2024-10-02 10:36 | XMS_ITS | Encounter Summary ---
Author Organization [facility] Address [address] [place] [address] Care Team Providers Care Field Clinical Engineer Name Role Phone Daniel Plaza MD Primary Care Provider [phone] Daniel Plaza MD Unavailable [phone] Herb Herman MD Primary Care Provider Herb Herman MD Unavailable Stan Barnes MD Unavailable [phone] Trent Qureshi MD Unavailable [phone] Encounter Details Date Type Department Care Team (Late st Contact Info) Description 10/15/2020 My[facility] Medical Advice [address] [address] Yvonne Zavala Social History Tobacco Use Types Packs/Day Years Used Date Smoking Tobacco: Never Smokeless Tobacco: Never Alcohol Use Standard Drinks/Week Comments No 0 (1 standard drink = 0.6 oz pur e alcohol) PHQ-2 Answer Date Recorded PHQ-2 Score 0 06/25/2020 Comments No Sex and Gender Information Value Date Recorded Sex Assigned at Female 01/16/2019 8:38 AM CDT Legal Sex Female 3:11 AM SCAFFOLD BUILDER Gender Identity Female 01/16/2019 8:38 AM CDT Sexual Orientation Choose not to disclose 2021 11:32 AM SCAFFOLD BUILDER documented as of this encounter Plan of Treatment Upcoming Encounters Date Type Department Care Team (Late st Contact Info) Description 10/08/2024 1:30 PM CDT Therapy Visit [address] [address] Sammy Villa MD [address] [place] [address] Christopher Ge, PT 10/16/2024 9:20 AM CDT Therapy Visit [address] [phone] Sammy Villa MD [address] [place] [address] Christopher Ge, PT 10/22/2024 11:40 AM CDT Therapy Visit [address] [address] Sammy Villa MD [address] [place] [address] Christopher Ge, PT documented as of this encounter Visit Diagnoses Not on filedocumented in this encounter Additional Health Concerns Assessment Noted Time PHQ-9 Depression Total Score: 1 06/26/19 21 11:29 AM CDT documented as of this encounter Care Teams Field Clinical Engineer Relationship Specialty Start Date End Date Daniel Plaza MD [address], [place] [address] PCP - General 06/29/10 12/23/20 [place] [address] [place] [address] PCP - General Family Medicine 12/24/20 Daniel Plaza MD [address] [place] [address] Assigned PCP 01/13/12 01/03/21 [place] [address] [place] [place], [place] 7349244 Assigned PCP 01/04/21 Stan Barnes MD [address] [place], [place] 062305 Assigned Surgical Provider 08/30/21 08/31/23 Trent Qureshi MD [facility] [address] 444765 Orthopaedic Surgery 09/16/21 documented as of this encounter
--- OUTSIDE RECORDS SUMMARY | 2024-10-02 10:36 | XMS_ITS | Encounter Summary ---
Author Organization [facility] Address [address] [place] [address]. [place] [address] Care Team Providers Care Catering Service Manager Name Role Phone Herb Herman MD Primary Care Provider [phone] Herb Herman MD Unavailable Trent Qureshi MD Unavailable [phone] Encounter Details Date Type Department Care Team (Late st Contact Info) Description 05/16/2024 [facility] Adv[facility] [address] [place] [address] [place] [address] [place] [address] Social History Tobacco Use Types [...] How often do you attend [facility] or pentecostalism services? 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 file documented as of this encounter Plan of Treatment Upcoming Encounters Date Type Department Care Team (Late st Contact Info) Description 10/08/2024 1:30 PM CDT Therapy Visit [address] [address] Sammy Villa MD [address] [place] [address] Christopher Ge, PT 10/16/2024 9:20 AM CDT Therapy Visit [address] [address] Sammy Villa MD [address] [place] [address] Christopher Ge, PT 10/22/2024 11:40 AM CDT Therapy Visit [address] [phone] Sammy Villa MD 420 [facility] [address] [place], [place] 571095 Christopher Ge, PT documented as of this encounter Visit Diagnoses Not on filedocumented in this encounter Additional Health Concerns Assessment Noted Time PHQ-9 Depression Total Score: 0 05/02/19 25 10:13 AM INTERPERSONAL COMMUNICATIONS PROFESSOR documented as of this encounter Care Teams Catering Service Manager Relationship Specialty [place] [address] [place] [address] PCP - General Family Medicine 12/24/20 [place] [address] [place], [place] 1873244 Assigned PCP 01/04/21 Trent Qureshi MD [facility] [address] [place] [address] 350535 Orthopaedic Surgery 09/16/21 documented as of this encounter
--- OUTSIDE RECORDS SUMMARY | 2024-10-02 10:36 | XMS_ITS | Encounter Summary ---
Author Organization [facility] Address [address] [place] [address] Care Team Providers Care Hotel Night Auditor Name Role Phone Daniel Plaza MD Primary Care Provider Daniel Plaza MD Unavailable [phone] Daniel Plaza MD Unavailable [phone] Stan Barnes MD Unavailable [phone] Herb Herman MD Primary Care Provider Herb Herman MD Unavailable Stan Barnes MD Unavailable Trent Qureshi MD Unavailable [phone] Reason for Visit * Reason Onset Date Comments Medication Request 04/22/2015 Encounter Details Date Type Department Care Team (Late st Contact Info) Description 04/22/2015 [facility] [address] [address] Daniel Plaza MD [address] [address] Medication Request Social History Tobacco Use Types Packs/Day Years Used Date Smoking Tobacco: Never Smokeless Tobacco: Never Alcohol Use Standard Drinks/Week Comments No 0 (1 standard drink = 0.6 oz pur e alcohol) Comments No Sex and Gender Information Value Date Recorded Sex Assigned at Female 01/16/2019 8:38 AM CDT Legal Sex Female 3:11 AM LEATHER GOODS MAKER Gender Identity Female 01/16/2019 8:38 AM CDT Sexual Orientation Choose not to disclose 2021 11:32 AM LEATHER GOODS MAKER documented as of this encounter Plan of Treatment Upcoming Encounters Date Type Department Care Team (Late st Contact Info) Description 10/08/2024 1:30 PM CDT Therapy Visit [address] [address] Sammy Villa MD [address] [place] [address] 557585 Christopher Ge, PT 10/16/2024 9:20 AM CDT Therapy Visit [address] [address] Sammy Villa MD [address] [place] [address] 198385 Christopher Ge, PT 10/22/2024 11:40 AM CDT Therapy Visit [address] [address] Sammy Villa MD [address] [place] [address] Christopher Ge, PT documented as of this encounter Visit Diagnoses Diagnosis Edema, unspecified edema- Primary documented in this encounter Care Teams Hotel Night Auditor Relationship Specialty Start Date End Date Daniel Plaza MD [address] [place] [address] PCP - General 06/29/10 12/23/20 Daniel Plaza MD [address] [place] [address] PCP - Assigned PCP 02/05/08 06/13/18 [place] [address] [place] [address] PCP - General Family Medicine 12/24/20 Daniel Plaza MD [address] [place] [phone] Assigned PCP 01/13/12 01/03/21 Stan Barnes MD [address] [place] [address] Assigned Surgical Provider 02/01/20 07/19/20 [place] [address] [place] [address] Assigned PCP 01/04/21 Stan Barnes MD [address] [place] [address] Assigned Surgical Provider 08/30/21 08/31/23 Trent Qureshi MD [facility] [address] [place] [address] Orthopaedic Surgery 09/16/21 documented as of this encounter
--- OUTSIDE RECORDS SUMMARY | 2024-10-02 10:36 | XMS_ITS | Encounter Summary ---
Author Organization [place] Address [address] [place] [address]. [place] [address] Care Team Providers Care Dress Operator Name Role Phone Herb Herman MD Primary Care Provider Herb Herman MD Unavailable Trent Qureshi MD Unavailable [phone] Encounter Details Date Type Department Care Team (Late st Contact Info) Description 03/31/2024 [facility] Medical Advice [facility] [id number] [place] [address] [place] [address] [place] [address] Social History Tobacco Use Types [...] week 06/08/2021 How often do you attend [facility] or baptism services? 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 file documented as of this encounter Plan of Treatment Upcoming Encounters Date Type Department Care Team (Late st Contact Info) Description 10/08/2024 1:30 PM CDT Therapy Visit [address] [phone] Sammy Villa MD [address] [place] [address] Christopher Ge, PT 10/16/2024 9:20 AM CDT Therapy Visit [address] [phone] Sammy Villa MD [address] [place] [address] Christopher Ge, PT 10/22/2024 11:40 AM CDT Therapy Visit [address] [phone] Sammy Villa MD [address] [facility] [address] [place], [place] [phone] Christopher Ge, PT documented as of this encounter Visit Diagnoses Not on filedocumented in this encounter Additional Health Concerns Assessment Noted Time PHQ-9 Depression Total Score: 0 05/02/19 24 10:52 AM HAT BRIM AND CROWN LAMINATING OPERATOR documented as of this encounter Care Teams Dress Operator Relationship Specialty [place] [address] [place] [address] PCP - General Family Medicine 12/24/20 [place] [address] [place], [place] [id number] Assigned PCP 01/04/21 Trent Qureshi MD [facility] [address] [place] [address] [phone] Orthopaedic Surgery 09/16/21 documented as of this encounter
--- OUTSIDE RECORDS SUMMARY | 2024-10-02 10:36 | XMS_ITS | Encounter Summary ---
Author Organization [place] Address [address] [place] [address] Care Team Providers Care Park Aide Name Role Phone Daniel Plaza MD Primary Care Provider Daniel Plaza MD Unavailable [phone] Daniel Plaza MD Unavailable [phone] Stan Barnes MD Unavailable [phone] Herb Herman MD Primary Care Provider Herb Herman MD Unavailable Stan Barnes MD Unavailable [phone] Trent Qureshi MD Unavailable [phone] Reason for Visit * Reason Onset Date Comments Thyroid Disease 07/23/2014 Encounter Details Date Type Department Care Team (Late st Contact Info) Description 07/23/2014 [facility] [address] [phone] Daniel Plaza MD [address] [address] Thyroid Disease Social History Tobacco Use Types Packs/Day Years Used Date Smoking Tobacco: Never Smokeless Tobacco: Never Alcohol Use Standard Drinks/Week Comments No 0 (1 standard drink = 0.6 oz pur e alcohol) Comments No Sex and Gender Information Value Date Recorded Sex Assigned at Female 01/16/2019 8:38 AM CDT Legal Sex Female 3:11 AM SEISMOLOGY TECHNICAL OFFICER Gender Identity Female 01/16/2019 8:38 AM CDT Sexual Orientation Choose not to disclose 2021 11:32 AM SEISMOLOGY TECHNICAL OFFICER documented as of this encounter Plan of Treatment Upcoming Encounters Date Type Department Care Team (Late st Contact Info) Description 10/08/2024 1:30 PM CDT Therapy Visit [address] [phone] Sammy Villa MD [address] [place] [place] [phone] Christopher Ge, PT 10/16/2024 9:20 AM CDT Therapy Visit [address] [phone] Sammy Villa MD [address] [place] [place] [phone] Christopher Ge, PT 10/22/2024 11:40 AM CDT Therapy Visit [address] [phone] Sammy Villa MD [address] [place] [place] [address] Christopher Ge, PT documented as of this encounter Visit Diagnoses Diagnosis MONTSERRAT'S THYROIDITIS- Primary Unspecified hypothyroidism documented in this encounter Care Teams Park Aide Relationship Specialty Start Date End Date Daniel Plaza MD [address] [place] [phone] PCP - General 06/29/10 12/23/20 Daniel Plaza MD [address] [place] [phone] PCP - Assigned PCP 02/05/08 06/13/18 [place] [address] [place] [address] PCP - General Family Medicine 12/24/20 Daniel Plaza MD [address] [place] [phone] Assigned PCP 01/13/12 01/03/21 Stan Barnes MD [address] [place] [address] Assigned Surgical Provider 02/01/20 07/19/20 [place] [address] [place] [address] Assigned PCP 01/04/21 Stan Barnes MD [address] [place] [address] Assigned Surgical Provider 08/30/21 08/31/23 Trent Qureshi MD [facility] [address] [place] [address] Orthopaedic Surgery 09/16/21 documented as of this encounter
--- OUTSIDE RECORDS SUMMARY | 2024-10-02 10:36 | XMS_ITS | Encounter Summary ---
Author Organization [place] Address [address] [place] [address] Care Team Providers Care Senior Partner Name Role Phone Herb Herman MD Primary Care Provider [phone] Herb Herman MD Unavailable Trent Qureshi MD Unavailable [phone] Encounter Details Date Type Department Care Team (Late st Contact Info) Description 02/21/2024 [facility] Medical Advice [address] [address] Rama Roche MA Social History Tobacco Use Types Packs/Day Years [...] often do you attend chur ch or yazidi services? 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 file documented as of this encounter Plan of Treatment Upcoming Encounters Date Type Department Care Team (Late st Contact Info) Description 10/08/2024 1:30 PM CDT Therapy Visit [address] [phone] Sammy Villa MD [address] [place] [address] Christopher Ge, PT 10/16/2024 9:20 AM CDT Therapy Visit [address] [address] Sammy Villa MD [address] [place] [address] Christopher Ge, PT 10/22/2024 11:40 AM CDT Therapy Visit [address] [address] Sammy Villa MD [address] [place] [address] Christopher Ge PT documented as of this encounter Visit Diagnoses Not on filedocumented in this encounter Additional Health Concerns Assessment Noted Time PHQ-9 Depression Total Score: 0 05/02/19 24 10:52 AM TELEPHONE SERVICE ADVISER documented as of this encounter Care Teams Senior Partner Relationship Specialty [place] [address] [place] [address] PCP - General Family Medicine 12/24/20 [place] [address] [place] [address] Assigned PCP 01/04/21 Trent Qureshi MD [facility] [address] [place] [address] Orthopaedic Surgery 09/16/21 documented as of this encounter
--- OUTSIDE RECORDS SUMMARY | 2024-10-02 10:36 | XMS_ITS | Encounter Summary ---
Author Organization [place] Address [address] [place] [address]. [place] [address] Care Team Providers Care Circulation Worker Name Role Phone Herb Herman MD Primary Care Provider [phone] Herb Herman MD Unavailable Stan Barnes MD Unavailable + [phone] Trent Qureshi MD Unavailable [phone] Encounter Details Date Type Department Care Team (Late st Contact Info) Description 08/27/2021 [facility] Medical Advice [facility] OR [address] [place] [address] Rachelle Mai RN Social History Tobacco Use Types Packs/Day [...] often do you attend chur ch or islam services? More than 4 times per year 06/08/2021 Do you belong to any clubs o r organizations such as yazdanism groups, unions, fraternal or athletic groups, or [...] PHQ-2 Answer Date Recorded PHQ-2 Score 0 08/25/2021 [facility] - Occupational Stress [...] place to sleep or slept in a detention (including now)? 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 No / Unsure 08/28/2021 7:27 AM CDT documented as of this encounter Plan of Treatment Upcoming Encounters Date Type Department Care Team (Late st Contact Info) Description 10/08/2024 1:30 PM CDT Therapy Visit [address] [phone] Sammy Villa MD [address] [place] [address] Christopher Ge, PT 10/16/2024 9:20 AM CDT Therapy Visit [address] [address] Sammy Villa MD [address] [place] [address] Christopher Ge, PT 10/22/2024 11:40 AM CDT Therapy Visit [address] [address] Sammy Villa MD [address] [place], [place] [phone] Christopher Ge PT documented as of this encounter Visit Diagnoses Not on filedocumented in this encounter Additional Health Concerns Assessment Noted Time PHQ-9 Depression Total Score: 1 08/23/19 22 7:03 AM CDT documented as of this encounter Care Teams Circulation Worker Relationship Specialty [place] [address] [place] [address] PCP - General Family Medicine 12/24/20 [place] [address] [place] [address] Assigned PCP 01/04/21 Stan Barnes MD [address] [place] [address] Assigned Surgical Provider 08/30/21 08/31/23 Trent Qureshi MD [facility] [address] [place] [address] Orthopaedic Surgery 09/16/21 documented as of this encounter
--- NOTE | 2024-10-02 10:43 | ED.NEUROSD ---
HPI - Neuro Symptoms/Deficit General Date Seen: 10/02/24 <Esdras Bright MD - Last Filed: 10/02/24 15:56> Chief Complaint: Neuro Symptoms/Altered Deficit <Esdras Bright MD - Last Filed: 10/02/24 15:56> Stated Complaint: feeling very light headed <Esdras Bright MD - Last Filed: 10/02/24 15:56> Time Seen by Provider: 10/02/24 10:14 <Esdras Bright MD - Last Filed: 10/02/24 15:56> Source: patient <Esdras Bright MD - Last Filed: 10/02/24 15:56> Mode of arrival: ambulatory <Esdras Bright MD - Last Filed: 10/02/24 15:56> Limitations: no limitations <Esdras Bright MD - Last Filed: 10/02/24 15:56> History of Present Illness HPI Narrative: Patient is a 78-year-old female who presents here for evaluation of 2 specific episodes, yesterday she had an episode of slurred speech, the lasted approximately 10 minutes, she was out at a [employer] function when this occurred. This lasted approximately 1-2 minutes, and then she was fine, there is no residual symptoms after this, this morning she was on the phone with her sister, at 9:00 a.m. and approximately 10 minutes where she was slurring her speech. This was also not related to any other symptoms with this such as visual changes headache, inability to word fine, weakness in her hands or feet, gait abnormalities, she is now back to normal. She did feel slightly lightheaded this morning, and yesterday, but attributed this to the heat yesterday she is otherwise healthy with no previous history of any CVAs. Does have a history of hypertension, type 2 diabetes. Ate normally this morning. She underwent what sounds like an epidural injection a few days ago in her back, she wonders if it is related to this. <Esdras Bright MD - Last Filed: 10/02/24 15:56> Location: speech and dysarthria <Esdras Bright MD - Last Filed: 10/02/24 15:56> History of same: Yes <Esdras Bright MD - Last Filed: 10/02/24 15:56> Severity: moderate <Esdras Bright MD - Last Filed: 10/02/24 15:56> Quality: improving <Esdras Bright MD - Last Filed: 10/02/24 15:56> Relieving factors: none <Esdras Bright MD - Last Filed: 10/02/24 15:56> Exacerbating factors: none <Esdras Bright MD - Last Filed: 10/02/24 15:56> Context: sudden onset <Esdras Birght MD - Last Filed: 10/02/24 15:56> On Anticoagulants: No <Esdras Bright MD - Last Filed: 10/02/24 15:56> Associated symptoms: denies other symptoms <Esdras Bright MD - Last Filed: 10/02/24 15:56> Treatments Prior to Arrival: none <Esdras Bright MD - Last Filed: 10/02/24 15:56> Related Data Home Medications: Home Medications ?Medication ?Instructions ?Recorded ?Confirmed amitriptyline 25 mg tablet 25 mg PO QPM 01/31/24 10/02/24 ergocalciferol (vitamin D2) 1,250 1,250 mcg PO .every week 01/31/24 10/02/24 mcg (50,000 unit) capsule levothyroxine 137 mcg tablet 137 mcg PO DAILY 01/31/24 10/02/24 lisinopril 10 1 tab PO DAILY 01/31/24 10/02/24 mg-hydrochlorothiazide 12.5 mg tablet metformin 1,000 mg tablet 1,000 mg PO BID 01/31/24 10/02/24 naproxen 500 mg tablet 500 mg PO BID PRN moderate pain 01/31/24 10/02/24 omeprazole 20 mg capsule,delayed 20 mg PO QPM 01/31/24 10/02/24 release <Esdras Bright MD - Last Filed: 10/02/24 15:56> Allergies/Adverse Reactions: Allergies Allergy/AdvReac Type Severity Reaction Status Date / Time doxycycline Allergy Verified 10/02/24 10:05 erythromycin base Allergy Verified 10/02/24 10:05 morphine Allergy Verified 10/02/24 10:05 <Esdras Bright MD - Last Filed: 10/02/24 15:56> Review of Systems Status of ROS: Reports: 10 or more systems reviewed and unremarkable except as noted in History and below <Esdras Bright MD - Last Filed: 10/02/24 15:56> [facility] Social History: Social History Smoking Status: Never smoker Do you use any of these nicotine containing products: None How often do you have a drink containing alcohol: never How often do you have six or more drinks on one occasion: Never AUDIT-C Alcohol total score: 0 Non-prescribed substance use: denies use service: No <Esdras Bright MD - Last Filed: 10/02/24 15:56> Exam Narrative: Exam Narrative: On examination in room 1 she is in no apparent distress alert oriented x3 with a GCS is 15/15. Speaking to me eloquent Nicole and normal, person place and time, patient able to ryhme normally. Pupils equal round reactive to light, no significant visual field cut notable. Little bit of nystagmus 2 beats to the left, TMs normal oropharynx normal, neck is supple chest is good air entry bilateral with no wheezing crackles noted heart sounds are normal fingers nose testing normal right-hand dominant. 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 NIH screen is 0. Carotid upstrokes equal bilaterally, JVP flat no meningismus chest is good air entry bilaterally no wheezing crackles noted heart sounds are normal, abdomen is soft and obese there is no guarding no organomegaly bowel sounds normal L-spine T-spine and C-spine all palpate normal. <Esdras Bright MD - Last Filed: 10/02/24 15:56> Const: Vital Signs, click to edit/add: Vital Signs - 24 hr 10/02/24 10:08 10/02/24 10:15 10/02/24 10:52 Temperature 97.4 F L Pulse Rate 62 Pulse Rate [Pulse Oximeter] 74 Respiratory Rate 18 Blood Pressure Blood Pressure [Ri ght Upper Arm] 176/76 H Pulse Oximetry 98 98 97 Oxygen Delivery Me thod Room Air 10/02/24 11:00 10/02/24 11:02 10/02/24 11:03 Temperature Pulse Rate 56 L 58 L 55 L Pulse Rate [Pulse Oximeter] Respiratory Rate 16 Blood Pressure 147/60 H Blood Pressure [Ri ght Upper Arm] Pulse Oximetry 98 99 98 Oxygen Delivery Me thod 10/02/24 11:15 10/02/24 11:30 10/02/24 11:32 Temperature Pulse Rate 58 L 53 L 58 L Pulse Rate [Pulse Oximeter] Respiratory Rate Blood Pressure 149/75 H Blood Pressure [Ri ght Upper Arm] Pulse Oximetry 96 98 99 Oxygen Delivery Me thod 10/02/24 11:45 10/02/24 12:00 10/02/24 12:02 Temperature Pulse Rate 54 L 53 L 53 L Pulse Rate [Pulse Oximeter] Respiratory Rate Blood Pressure 153/71 H Blood Pressure [Ri ght Upper Arm] Pulse Oximetry 98 96 98 Oxygen Delivery Me thod 10/02/24 12:26 10/02/24 12:30 10/02/24 12:33 Temperature Pulse Rate 73 61 61 Pulse Rate [Pulse Oximeter] Respiratory Rate Blood Pressure 165/70 H Blood Pressure [Ri ght Upper Arm] Pulse Oximetry 97 98 99 Oxygen Delivery Me thod 10/02/24 12:45 10/02/24 13:00 10/02/24 13:02 Temperature Pulse Rate 58 L 57 L 59 L Pulse Rate [Pulse Oximeter] Respiratory Rate Blood Pressure 152/70 H Blood Pressure [Ri ght Upper Arm] Pulse Oximetry 98 98 99 Oxygen Delivery Me thod 10/02/24 13:15 10/02/24 17:17 Temperature Pulse Rate 58 L 68 Pulse Rate [Pulse Oximeter] Respiratory Rate 16 Blood Pressure 188/68 H Blood Pressure [Ri ght Upper Arm] Pulse Oximetry 98 98 Oxygen Delivery Me thod Room Air <Esdras Bright MD - Last Filed: 10/02/24 15:56> Vital Signs, click to edit/add: Vital Signs - 24 hr 10/02/24 10:08 10/02/24 10:15 10/02/24 10:52 Temperature 97.4 F L Pulse Rate 62 Pulse Rate [Pulse Oximeter] 74 Respiratory Rate 18 Blood Pressure Blood Pressure [Ri ght Upper Arm] 176/76 H Pulse Oximetry 98 98 97 Oxygen Delivery Me thod Room Air 10/02/24 11:00 10/02/24 11:02 10/02/24 11:03 Temperature Pulse Rate 56 L 58 L 55 L Pulse Rate [Pulse Oximeter] Respiratory Rate 16 Blood Pressure 147/60 H Blood Pressure [Ri ght Upper Arm] Pulse Oximetry 98 99 98 Oxygen Delivery Me thod 10/02/24 11:15 10/02/24 11:30 10/02/24 11:32 Temperature Pulse Rate 58 L 53 L 58 L Pulse Rate [Pulse Oximeter] Respiratory Rate Blood Pressure 149/75 H Blood Pressure [Ri ght Upper Arm] Pulse Oximetry 96 98 99 Oxygen Delivery Me thod 10/02/24 11:45 10/02/24 12:00 10/02/24 12:02 Temperature Pulse Rate 54 L 53 L 53 L Pulse Rate [Pulse Oximeter] Respiratory Rate Blood Pressure 153/71 H Blood Pressure [Ri ght Upper Arm] Pulse Oximetry 98 96 98 Oxygen Delivery Me thod 10/02/24 12:26 10/02/24 12:30 10/02/24 12:33 Temperature Pulse Rate 73 61 61 Pulse Rate [Pulse Oximeter] Respiratory Rate Blood Pressure 165/70 H Blood Pressure [Ri ght Upper Arm] Pulse Oximetry 97 98 99 Oxygen Delivery Me thod 10/02/24 12:45 10/02/24 13:00 10/02/24 13:02 Temperature Pulse Rate 58 L 57 L 59 L Pulse Rate [Pulse Oximeter] Respiratory Rate Blood Pressure 152/70 H Blood Pressure [Ri ght Upper Arm] Pulse Oximetry 98 98 99 Oxygen Delivery Me thod 10/02/24 13:15 10/02/24 17:17 Temperature Pulse Rate 58 L 68 Pulse Rate [Pulse Oximeter] Respiratory Rate 16 Blood Pressure 188/68 H Blood Pressure [Ri ght Upper Arm] Pulse Oximetry 98 98 Oxygen Delivery Me thod Room Air <Warren Calvin MD - Last Filed: 10/02/24 18:18> Documenting provider has reviewed patient's vital signs: yes <Esdras Bright MD - Last Filed: 10/02/24 15:56> Course Reevaluation(s) Time of Reevaluation #1: 13:50 <Esdras Bright MD - Last Filed: 10/02/24 15:56> Reevaluation #1: Patient remains symptom free, I did speak to stroke neurologist Elda, he suggested MRI, I will also get an echo, to complete the workup. Be given aspirin earlier. If workup is negative we will continue on aspirin as an outpatient with follow-up with primary care. We will get an echo, and along with an MRI, I will sign over the oncoming partner, if these fail this show a significant lesions suggestive of stroke, I do believe this is TIA, she will need to stay hydrated, take aspirin 81 mg a day, follow-up with primary care is suggested, maximize blood pressure, and diabetes care <Esdras Bright MD - Last Filed: 10/02/24 15:56> Time of Reevaluation #2: 15:56 <Esdras Bright MD - Last Filed: 10/02/24 15:56> Reevaluation #2: Patient is signed out to for final disposition, and disposition related to the MRI of her head. <Esdras Bright MD - Last Filed: 10/02/24 15:56> Vital Signs Vital signs: Initial Vital Signs Temperature 97.4 F L 10/02/24 10:08 Temperature Source Temporal Artery Scan 10/02/24 10:08 Pulse Rate 74 10/02/24 10:08 Respiratory Rate 18 10/02/24 10:08 Blood Pressure 176/76 H 10/02/24 10:08 Blood Pressure Mean 109 H 10/02/24 10:08 Pulse Oximetry 98 10/02/24 10:08 Oxygen Delivery Method Room Air 10/02/24 10:08 Vital Signs Temperature 97.4 F L 10/02/24 10:08 Pulse Rate 74 10/02/24 10:08 Respiratory Rate 18 10/02/24 10:08 Blood Pressure 176/76 H 10/02/24 10:08 Pulse Oximetry 98 10/02/24 10:08 Oxygen Delivery Method Room Air 10/02/24 10:08 Temperature 97.4 F L 10/02/24 10:08 Pulse Rate 68 10/02/24 17:17 Respiratory Rate 16 10/02/24 17:17 Blood Pressure 188/68 H 10/02/24 17:17 Pulse Oximetry 98 10/02/24 17:17 Oxygen Delivery Method Room Air 10/02/24 17:17 <Esdras Bright MD - Last Filed: 10/02/24 15:56> Initial Vital Signs Temperature 97.4 F L 10/02/24 10:08 Temperature Source Temporal Artery Scan 10/02/24 10:08 Pulse Rate 74 10/02/24 10:08 Respiratory Rate 18 10/02/24 10:08 Blood Pressure 176/76 H 10/02/24 10:08 Blood Pressure Mean 109 H 10/02/24 10:08 Pulse Oximetry 98 10/02/24 10:08 Oxygen Delivery Method Room Air 10/02/24 10:08 Vital Signs Temperature 97.4 F L 10/02/24 10:08 Pulse Rate 74 10/02/24 10:08 Respiratory Rate 18 10/02/24 10:08 Blood Pressure 176/76 H 10/02/24 10:08 Pulse Oximetry 98 10/02/24 10:08 Oxygen Delivery Method Room Air 10/02/24 10:08 Temperature 97.4 F L 10/02/24 10:08 Pulse Rate 68 10/02/24 17:17 Respiratory Rate 16 10/02/24 17:17 Blood Pressure 188/68 H 10/02/24 17:17 Pulse Oximetry 98 10/02/24 17:17 Oxygen Delivery Method Room Air 10/02/24 17:17 <Warren Calvin MD - Last Filed: 10/02/24 18:18> Medications Administered Medications: Discontinued Medications Generic Name Dose Route Start Last Admin Trade Name Freq PRN Reason Stop Dose Admin Acetaminophen 1,000 mg 10/02/24 13:46 10/02/24 13:51 Acetaminophen 500 Mg Tablet PO 10/02/24 13:47 1,000 mg ONCE ONE Administration Aspirin 324 mg 10/02/24 10:51 10/02/24 11:11 Aspirin 81 Mg Tab.Chew PO 10/02/24 10:52 324 mg ONCE ONE Administration Sodium Chloride 1,000 mls @ 1,000 mls/hr 10/02/24 10:15 10/02/24 12:15 0.9 % Sodium Chloride 1000 Ml IV 10/02/24 11:14 Infused .Q1H EDEL Infusion <Esdras Bright MD - Last Filed: 10/02/24 15:56> Discontinued Medications Generic Name Dose Route Start Last Admin Trade Name Freq PRN Reason Stop Dose Admin Acetaminophen 1,000 mg 10/02/24 13:46 10/02/24 13:51 Acetaminophen 500 Mg Tablet PO 10/02/24 13:47 1,000 mg ONCE ONE Administration Aspirin 324 mg 10/02/24 10:51 10/02/24 11:11 Aspirin 81 Mg Tab.Chew PO 10/02/24 10:52 324 mg ONCE ONE Administration Sodium Chloride 1,000 mls @ 1,000 mls/hr 10/02/24 10:15 10/02/24 12:15 0.9 % Sodium Chloride 1000 Ml IV 10/02/24 11:14 Infused .Q1H EDEL Infusion <Warren Calvin MD - Last Filed: 10/02/24 18:18> MDM - Neuro Symptoms/Deficit MDM Narrative Medical decision making narrative: Life-threatening differential diagnosis considered include stroke, coronary artery disease, pneumonia, and heart failure. Other differential diagnosis include but are not limited to electrolyte imbalances, anemia, medication reactions, and urinary tract infection Wonder more about a TIA as a cause, the fact is this could be crescendo given she has had 2. We will get a head CT, blood test, give her some fluids, then I will likely do a workup for the TIAs. Including CTA, and possibly an MRI. <Esdras Bright MD - Last Filed: 10/02/24 15:56> Life-threatening differential diagnosis considered include stroke, coronary artery disease, pneumonia, and heart failure. Other differential diagnosis include but are not limited to electrolyte imbalances, anemia, medication reactions, and urinary tract infection Wonder more about a TIA as a cause, the fact is this could be crescendo given she has had 2. We will get a head CT, blood test, give her some fluids, then I will likely do a workup for the TIAs. Including CTA, and possibly an MRI. MRI returns with evidence of several small acute and subacute infarcts. I did speak with Dr. Siddiqui from Neurology who states that a full neuro evaluation can occur tomorrow. The patient will be admitted into the hospital and Dr. Griffith is the accepting physician here. For now she will be anticoagulated with a full strength aspirin daily. <Warren Calvin MD - Last Filed: 10/02/24 18:18> Medical Records Attestation: I reviewed the patient's medical records. <Esdras Bright MD - Last Filed: 10/02/24 15:56> Lab Data Attestation: I reviewed the patient's lab results. <Esdras Bright MD - Last Filed: 10/02/24 15:56> Labs: Lab Results 10/02/24 10/02/24 10/02/24 Range/Units 10:15 10:38 12:25 WBC 11.08 H (4.50-11.00) K/uL RBC 4.14 (4.00-5.20) m/uL Hgb 13.3 (12.0-16.0) gm/dL Hct 41.3 (33.0-51.0) % MCV 100 (80-100) fL MCH 32 (26-34) pg MCHC 32 (32-36) gm/dL RDW Coeff of Arun 12.2 (11.5-15.5) % Plt Count 298 (140-440) K/uL Neut % (Auto) 73.0 H (42.0-72.0) % Lymph % (Auto) 19.0 L (20-44) % [place] % (Auto) 6.3 (0.0-11.0) % Eos % (Auto) 1.1 (0.0-7.0) % Baso % (Auto) 0.3 (0.0-3.0) % Neut # (Auto) 8.10 H (1.7-7.0) K/uL Lymph # (Auto) 2.10 (0.90-2.90) K/uL [place] # (Auto) 0.70 (0.00-0.90) K/UL Eos # (Auto) 0.10 (0.00-0.50) K/uL Baso # (Auto) 0.00 (0.00-0.30) K/uL Abs Immat Gran (auto) 0.00 (0.00-0.30) K/uL Imm/Tot Granulo (auto) 0.3 % INR 1.05 (0.91-1.10) APTT 26 (23-33) Seconds D-Dimer Quant (PE/DVT) 0.54 H (0.00-0.50) ug/ml Sodium 138 (135-149) mmol/L Potassium 5.3 H (3.6-5.1) mmol/L Chloride 109 (96-114) mmol/L Carbon Dioxide 21 (20-32) mmol/L Anion Gap 8 (7-15) mEq/L BUN 33 H (7-30) mg/dL Creatinine 1.2 (0.5-1.5) mg/dL Estimated Creat Clear 34.44 Estimated GFR 47 ml/min Glucose 150 H (60-115) mg/dL Calcium 9.9 (8.4-10.6) mg/dL C-Reactive Protein < 0.5 L (0.5-1.0) mg/dL Urine Color Yellow (Yellow) Urine Appearance Clear (Clear) Urine pH 5.5 (5.0-8.5) Ur Specific [place] <= 1.005 (1.000-1.030) Urine Protein Negative (Negative) Urine Glucose (UA) Negative (Negative) Urine Ketones Negative (Negative) Urine Blood Negative (Negative) Urine Nitrite Negative (Negative) Urine Bilirubin Negative (Negative) Urine Urobilinogen 0.2 (0.2-1.0) Ur Leukocyte Esterase Trace A (Negative) Urine RBC 0-2 (0-2) Urine WBC 2-5 (0-5) Ur Squamous Epith Cells Few (None-Few) Urine Bacteria Few A (None) POC Troponin I 0.00 L (0.01-0.04) ng/ml <Esdras Bright MD - Last Filed: 10/02/24 15:56> Lab Results 10/02/24 10/02/24 10/02/24 Range/Units 10:15 10:38 12:25 WBC 11.08 H (4.50-11.00) K/uL RBC 4.14 (4.00-5.20) m/uL Hgb 13.3 (12.0-16.0) gm/dL Hct 41.3 (33.0-51.0) % MCV 100 (80-100) fL MCH 32 (26-34) pg MCHC 32 (32-36) gm/dL RDW Coeff of Arun 12.2 (11.5-15.5) % Plt Count 298 (140-440) K/uL Neut % (Auto) 73.0 H (42.0-72.0) % Lymph % (Auto) 19.0 L (20-44) % [place] % (Auto) 6.3 (0.0-11.0) % Eos % (Auto) 1.1 (0.0-7.0) % Baso % (Auto) 0.3 (0.0-3.0) % Neut # (Auto) 8.10 H (1.7-7.0) K/uL Lymph # (Auto) 2.10 (0.90-2.90) K/uL [place] # (Auto) 0.70 (0.00-0.90) K/UL Eos # (Auto) 0.10 (0.00-0.50) K/uL Baso # (Auto) 0.00 (0.00-0.30) K/uL Abs Immat Gran (auto) 0.00 (0.00-0.30) K/uL Imm/Tot Granulo (auto) 0.3 % INR 1.05 (0.91-1.10) APTT 26 (23-33) Seconds D-Dimer Quant (PE/DVT) 0.54 H (0.00-0.50) ug/ml Sodium 138 (135-149) mmol/L Potassium 5.3 H (3.6-5.1) mmol/L Chloride 109 (96-114) mmol/L Carbon Dioxide 21 (20-32) mmol/L Anion Gap 8 (7-15) mEq/L BUN 33 H (7-30) mg/dL Creatinine 1.2 (0.5-1.5) mg/dL Estimated Creat Clear 34.44 Estimated GFR 47 ml/min Glucose 150 H (60-115) mg/dL Calcium 9.9 (8.4-10.6) mg/dL C-Reactive Protein < 0.5 L (0.5-1.0) mg/dL Urine Color Yellow (Yellow) Urine Appearance Clear (Clear) Urine pH 5.5 (5.0-8.5) Ur Specific [place] <= 1.005 (1.000-1.030) Urine Protein Negative (Negative) Urine Glucose (UA) Negative (Negative) Urine Ketones Negative (Negative) Urine Blood Negative (Negative) Urine Nitrite Negative (Negative) Urine Bilirubin Negative (Negative) Urine Urobilinogen 0.2 (0.2-1.0) Ur Leukocyte Esterase Trace A (Negative) Urine RBC 0-2 (0-2) Urine WBC 2-5 (0-5) Ur Squamous Epith Cells Few (None-Few) Urine Bacteria Few A (None) POC Troponin I 0.00 L (0.01-0.04) ng/ml <Warren Calvin MD - Last Filed: 10/02/24 18:18> Imaging Data CT scan - head: Radiologist's impression: [place] [address] Diagnostic Imaging Report Patient: Angela Lamar MR#: [id number] : 1945 Acct:[id number] Loc: ED Service Date: 10/02/[address]: Ordering Physician: Esdras Bright M.D. Date of Service: 10/02/24 Procedure(s): CT head/brain wo con Accession Number(s): [id number] cc: Herb Herman M.D.; Esdras Bright M.D.~ For Patients: As a result of the Cures Act, medical imaging exams and procedure reports are released immediately into your electronic medical record. You may view this report before your referring provider. If you have questions, please contact your health care provider. INDICATION: Lightheadedness. TECHNIQUE: Noncontrast CT of the head with multiplanar reconstruction utilizing bone and soft tissue algorithms. COMPARISON: None available. FINDINGS: No acute intracranial hemorrhage. The melgar-white matter interface is preserved. The ventricles are normal in size. No abnormal extra-axial fluid collection is identified. Normal calvarium and skull base. Unremarkable orbits. The paranasal sinuses and mastoid air cells are clear. IMPRESSION: No acute intracranial abnormality. Please note that all CT scans at this facility use dose modulation, iterative reconstruction, and/or weight-based dosing when appropriate to reduce radiation dose to as low as reasonably achievable. Dictated by Hao Petersen MD @ 10/02/2024 10:46:40 AM (Electronically Signed) <Esdras Bright MD - Last Filed: 10/02/24 15:56> MRI - head: Radiologist's impression: 1. Small acute to early subacute infarctions within the left guerin radiata, left basal ganglia, left cerebellar hemisphere. 2. Chronic lacunar infarctions right cerebellar hemisphere. 3. Mild chronic microvascular ischemic changes and diffuse cerebral volume loss. <Warren Calvin MD - Last Filed: 10/02/24 18:18> ECG Data Attestation: I personally reviewed and interpreted this ECG as follows: <Esdras Bright MD - Last Filed: 10/02/24 15:56> ECG interpretation date: 10/02/24 <Esdras Bright MD - Last Filed: 10/02/24 15:56> Prior ECG tracings: not available for review <Esdras Bright MD - Last Filed: 10/02/24 15:56> Interpretation: EKG shows sinus bradycardia, with a right bundle-branch block configuration, ventricular rate 59, QRS is 138, QT is 434 and QTC is 429. Impression: Abnormal EKG with sinus bradycardia, right bundle branch block configuration no old EKG compared to <Esdras Bright MD - Last Filed: 10/02/24 15:56> Discharge Plan Discharge Clinical Impression: Cerebrovascular accident <Esdras Bright MD - Last Filed: 10/02/24 15:56> Patient Disposition: Admitted As Observation <Esdras Bright MD - Last Filed: 10/02/24 15:56> Condition: Unchanged <Esdras Bright MD - Last Filed: 10/02/24 15:56>
[2024-10-02 10:49] LABS: Basophils Percent Auto 0.3 % (0.0-3.0); Eosinophils Percent Auto 1.1 % (0.0-7.0); Hematocrit 41.3 % (33.0-51.0); Hemoglobin* 13.3 gm/dL (12.0-16.0); Immature Granulocytes Pct Auto 0.3 %; Mean Corpuscular HGB Conc 32 gm/dL (32-36); Mean Corpuscular Hemoglobin 32 pg (26-34); Mean Corpuscular Volume 100 fL (80-100); Monocytes Percent Auto 6.3 % (0.0-11.0); Platelet Count* 298 K/uL (140-440); RDW Coefficient of Variation % 12.2 % (11.5-15.5); Red Blood Count 4.14 m/uL (4.00-5.20); White Blood Count* 11.08 K/uL (4.50-11.00)
[2024-10-02 10:56] LABS: Slide Review Reflex No
[2024-10-02] MEDS: 0.9 % SODIUM CHLORIDE 1000 ml 1,000 ML IV (11:11)
[2024-10-02] MEDS: ASPIRIN 81 MG TAB.CHEW 324 MG PO (11:11)
[2024-10-02 11:22] LABS: Chloride* 109 mmol/L (96-114); Potassium* 5.3 mmol/L (3.6-5.1); Sodium* 138 mmol/L (135-149)
[2024-10-02 11:24] LABS: INR 1.05 (0.91-1.10); Prothrombin Time 14.5 Seconds
[2024-10-02 11:25] LABS: Blood Urea Nitrogen* 33 mg/dL (7-30); Creatinine* 1.2 mg/dL (0.5-1.5); Est. Creatinine Clearance* 34.44; Estimated Glomerular Filt Rate 47 ml/min; Partial Thromboplastin Time* 26 Seconds (23-33)
[2024-10-02 11:26] LABS: Anion Gap 8 mEq/L (7-15); Calcium* 9.9 mg/dL (8.4-10.6); Carbon Dioxide* 21 mmol/L (20-32); Glucose* 150 mg/dL (60-115)
[2024-10-02 11:34] LABS: C Reactive Protein* < 0.5 mg/dL (0.5-1.0)
[2024-10-02 11:37] LABS: D Dimer Quantitative* 0.54 ug/ml (0.00-0.50)
--- NOTE | 2024-10-02 11:37 | CRLHL7_ITS ---
For Patients: As a result of the Century Cures Act, medical imaging exams and procedure reports are released immediately into your electronic medical record. You may view this report before your referring provider. If you have questions, please contact your health care provider. CLINICAL HISTORY: Acute neurological deficit. TECHNIQUE: Standard helical CT image acquisition through the head following the administration of intravenous contrast was performed. 3D and MIP reconstructions were performed at a separate workstation and permanently archived. COMPARISON: None available. FINDINGS: No intracranial proximal large vessel occlusion. 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 No evidence of cerebral aneurysm. No findings to suggest an arterial-venous shunting lesion. The major dural venous sinuses and deep venous system are patent. 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 Please note that all CT scans at this facility use dose modulation, iterative reconstruction, and/or weight-based dosing when appropriate to reduce radiation dose to as low as reasonably achievable. Dictated by Efren Alcaraz MD @ 10/03/2024 9:24:34 AM (Electronically Signed)
--- NOTE | 2024-10-02 11:37 | CRLHL7_ITS ---
For Patients: As a result of the Century Cures Act, medical imaging exams and procedure reports are released immediately into your electronic medical record. You may view this report before your referring provider. If you have questions, please contact your health care provider. INDICATION: Acute neurological deficit. COMPARISON: None available. TECHNIQUE: CTA neck with contrast bolus tracking, 3D angiographic rendering using maximum intensity projection (MIP) and images permanently archived. FINDINGS: The origins of the great vessels are patent. There is no significant carotid artery stenosis or dissection. There is no significant vertebral artery stenosis or dissection. IMPRESSION: Patent cervical arterial vasculature without hemodynamically significant stenosis. Please note that all CT scans at this facility use dose modulation, iterative reconstruction, and/or weight-based dosing when appropriate to reduce radiation dose to as low as reasonably achievable. Dictated by Efren Alcaraz MD @ 10/03/2024 9:23:18 AM (Electronically Signed)
[2024-10-02 12:33] LABS: Appearance Urine Clear (Clear); Bilirubin Urine Negative (Negative); Blood Urine Negative (Negative); Color Urine Yellow (Yellow); Glucose Urine Negative (Negative); Ketones Urine Negative (Negative); Leukocyte Esterase Urine Trace (Negative); Nitrite Urine Negative (Negative); Protein Urine Negative (Negative); Specific Gravity Urine <= 1.005 (1.000-1.030); Urobilinogen Urine 0.2 (0.2-1.0); pH Urine 5.5 (5.0-8.5)
[2024-10-02 12:43] LABS: Bacteria Urine Few; RBC Urine 0-2 (0-2); Squamous Epithelial Cell Urine Few (None-Few)
--- NOTE | 2024-10-02 13:36 | CRLHL7_ITS ---
For Patients: As a result of the Cures Act, medical imaging exams and procedure reports are released immediately into your electronic medical record. You may view this report before your referring provider. If you have questions, please contact your health care provider. Indication: Dizziness. Technique: Multiplanar multisequence noncontrast MR images of the brain. Comparison: CT brain 10/02/2024. Findings: Small foci of diffusion restriction and mild FLAIR hyperintensity within the left guerin radiata, left basal ganglia, and left cerebellar hemisphere, compatible with acute to early subacute infarctions. Mild diffuse cerebral volume loss. No mass effect or midline shift. Scattered FLAIR hyperintensities in the supratentorial white matter and thai, typical for mild chronic microvascular ischemic changes. Chronic lacunar infarctions in the right cerebellar hemisphere. No intracranial hemorrhage or pathologic extra-axial fluid collection. The major arterial flow voids of the skull base are preserved. Globes are symmetric. Mild paranasal sinus mucosal thickening. Trace right mastoid fluid. Impression: 1. Small acute to early subacute infarctions within the left guerin radiata, left basal ganglia, left cerebellar hemisphere. 2. Chronic lacunar infarctions right cerebellar hemisphere. 3. Mild chronic microvascular ischemic changes and diffuse cerebral volume loss. Dictated by Star Dominguez MD @ 10/02/2024 4:51:23 PM (Electronically Signed)
[2024-10-02] MEDS: ACETAMINOPHEN 500 MG TABLET 1000 MG PO (13:51)
--- NOTE | 2024-10-02 17:49 | ED.NURSE ---
Harish neuro paged to review MRI results.
[2024-10-02] MEDS: KETOROLAC 15 MG/ML inj IVP (18:22)
--- NOTE | 2024-10-02 19:55 | PM.IMHP1 ---
Assessment and Plan Assessment and plan (1) Cerebrovascular accident: Problem comment: -two transient 1-2 minute episodes of garbled speech, 1 on 09/30/2024 and 1 on 10/02/2024, with complete resolution of symptoms -MRI of the brain on 10/02/2024: 1. Small acute to early subacute infarctions within the left guerin radiata, left basal ganglia, left cerebellar hemisphere. 2. Chronic lacunar infarctions right cerebellar hemisphere. 3. Mild chronic microvascular ischemic changes and diffuse cerebral volume loss. -has not been on aspirin previously. Started on aspirin 325 mg once daily on 10/02/2024 per recommendation from stroke neurologist -history of intolerability to atorvastatin and rosuvastatin. As such starting patient on a low dose of rosuvastatin 5 mg once daily at this time. Check lipid panel on the morning of 10/03/2024 -allow for permissive hypertension for now -continue with glucose management efforts. Recheck hemoglobin A1c in the morning of 10/03/2024. QID ACHS glucose monitoring while in hospital with sliding scale insulin. -telemetry while in hospital. -echocardiogram while in hospital -physical therapy, occupational therapy, and speech pathology to assess -dietitian consultation -stroke Neurology to reassess on 10/03/2024 Status: Acute Plan 1. Reviewed impression, plans, recommendation with patient 2. Answered patient's questions are satisfaction 3. Patient agreeable with above stated plans and recommendations Total Time Spent Total Time Spent: 70 minutes Hospitalist- H&P: HPI History of Present Illness Date Seen: 10/02/24 Chief complaint: feeling very light headed Narrative: Angela Lamar is a 78 year old woman who presented to the [facility] Emergency Department around 10:00 a.m. today for assessment of a transient 1-2 minute episode of garbled speech that occurred around 9:00 a.m. this morning while she was speaking with her sister via telephone. She indicates she had a similar episode the day prior while attending a confucianism festival, again she had garbled speech lasting 1-2 minutes which subsequently resolved. Denied any other associated symptoms. Denied motor changes. Denied visual or sensory changes. No headaches. Acknowledges long-standing difficulties with balance which was not any better or worse during these episodes. Longstanding hypertension and diabetes mellitus type 2 which are medically manage. Last hemoglobin A1c in April of 2024 was 7.1. Indicates her blood sugars at home typically ranged from 100-120. Does not take aspirin or any lipid controlling medications. Takes her medications as prescribed. Review of Systems Status of ROS: Reports: 6 or more systems reviewed and unremarkable except as noted in History and below Narrative: Intentional weight loss of 15 lb since April 2024. Again, has unsteady gait. Over the last few years her unsteady gait has been compounded by symptomatic lumbar spinal stenosis and pain associated there with. Working with the neurosurgeon and pain specialist, and has received corticosteroid injections for this in the past. Also states has spinal stenosis for which she has also received corticosteroid injections. Has residual numbness of right digits 1 2 and 3 in association with her cervical spinal stenosis. Previously enjoyed gardening. For the last year it has been more difficult for her to carry out desired activities due to bilateral lower extremity discomfort associated with lumbar spinal stenosis. Now utilizes a cane to help decrease the leg pain and to give herself of greater sense of balance. Does not carry out any exercises for exercise sake. Did sustain an unprovoked fall on weekend this year and struck the back of her head and never had that assessed. Has not had any residual complications from that as best as she can tell. No other falls. No other trauma or injuries. Denies blood loss of any sort. Denies angina or anginal equivalent, syncope or near syncope, nausea vomiting, palpitations or fluttering, cough or dyspnea, edema, constipation or diarrhea, dysuria, urgency, frequency, hematuria. Acknowledges long-standing bilateral lower extremity numbness. No recent fevers, rigors, diaphoresis, or any other illness. Follows with her primary care transport nurse, Dr. Herman, [facility]. Designates her as her spokesperson to make healthcare decisions for her should she not be able to speak on her own behalf. Requests full resuscitation in the event of cardiopulmonary demise. Does not want to be kept alive in a persistent vegetative state. 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 Lives with her . She has been for 53 years. They have 2 sons and 2 granddaughters. Is active in her bertin. Medical Decision Making Medical Decision Making Code Status: Full resuscitation efforts During This Stay, Who Would You Like To Make Decisions For You In The Event You Are Unable To Make Them For Yourself?: , Madhu. 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 (12/22/15) ?F32.5 - Major depressive disorder, single episode, in full remission (ICD-10) Poor balance (05/20/23) ?R26.89 - Other abnormalities of gait and mobility (ICD-10) Spinal stenosis of lumbar region with neurogenic claudication (03/20/15) ?M48.062 - Spinal stenosis, lumbar region with neurogenic claudication (ICD-10) Lumbar radiculopathy ?M54.16 - Radiculopathy, lumbar region (ICD-10) Lumbosacral radiculitis ?M54.17 - Radiculopathy, lumbosacral region (ICD-10) Lumbar spondylosis ?M47.816 - Spondylosis without myelopathy or radiculopathy, lumbar region (ICD-10) Obesity (BMI 30-39.9) ?E66.9 - Obesity, unspecified (ICD-10) Chronic kidney disease, stage 3a ?N18.31 - Chronic kidney disease, stage 3a (ICD-10) Insomnia ?G47.00 - Insomnia, unspecified (ICD-10) Acquired hypothyroidism ?E03.9 - Hypothyroidism, unspecified (ICD-10) 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 - Stenosis of larynx (ICD-10) Diabetes mellitus type 2, controlled ?E11.9 - Type 2 diabetes mellitus without complications (ICD-10) Vitamin D deficiency ?E55.9 - Vitamin D deficiency, unspecified (ICD-10) Essential hypertension ?I10 - Essential (primary) hypertension (ICD-10) Surgical History S/P total hip arthroplasty (09/21/21) ?Z96.649 - Presence of unspecified artificial hip joint (ICD-10) Social History Smoking Status: Never smoker Do you use any of these nicotine containing products: None How often do you have a drink containing alcohol: never How often do you have six or more drinks on one occasion: Never AUDIT-C Alcohol total score: 0 Non-prescribed substance use: denies use service: No Meds Home Medications and Allergies Home Medications ?Medication ?Instructions ?Recorded ?Confirmed ?Type amitriptyline 25 mg tablet 25 mg PO QPM 01/31/24 10/02/24 History ergocalciferol (vitamin D2) 1,250 1,250 mcg PO .every week 01/31/24 10/02/24 History mcg (50,000 unit) capsule levothyroxine 137 mcg tablet 137 mcg PO DAILY 01/31/24 10/02/24 History lisinopril 10 1 tab PO DAILY 01/31/24 10/02/24 History mg-hydrochlorothiazide 12.5 mg tablet metformin 1,000 mg tablet 1,000 mg PO BID 01/31/24 10/02/24 History naproxen 500 mg tablet 500 mg PO BID PRN moderate pain 01/31/24 10/02/24 History omeprazole 20 mg capsule,delayed 20 mg PO QPM 01/31/24 10/02/24 History release Allergies Allergy/AdvReac Type Severity Reaction Status Date / Time doxycycline Allergy Verified 10/02/24 10:05 erythromycin base Allergy Verified 10/02/24 10:05 morphine Allergy Verified 10/02/24 10:05 Exam Narrative: Exam Narrative: Examined patient in her hospital room. Appears comfortable and in no acute distress. Vision and hearing are adequate. Alert and oriented x4. Articulate without any apparent disturbance in her speech ability. Cranial nerves 3-12 are grossly normal. Independent with transfer, station, gait. Normal rapid alternating movements of both upper extremities. Normal [id number] testing. Strength testing symmetric and normal in upper and lower extremities. Negative Babinski bilaterally. No carotid bruits. No JVD. No head neck lymphadenopathy. Lungs clear to auscultation. Heart tones with regular rhythm, normal S1-S2 without murmur, gallop, rub. PMI not laterally displaced. Abdomen with active bowel sounds, soft, nontender. No organomegaly or masses. No rebound or guarding. Extremities without edema. Const: Vital Signs, click to edit/add: Vital Signs - 24 hr 10/02/24 10:08 10/02/24 10:15 10/02/24 10:52 Temperature 97.4 F L Pulse Rate 62 Pulse Rate [Pulse Oximeter] 74 Respiratory Rate 18 Blood Pressure Blood Pressure [Ri ght Upper Arm] 176/76 H Pulse Oximetry 98 98 97 Oxygen Delivery Me thod Room Air 10/02/24 11:00 10/02/24 11:02 10/02/24 11:03 Temperature Pulse Rate 56 L 58 L 55 L Pulse Rate [Pulse Oximeter] Respiratory Rate 16 Blood Pressure 147/60 H Blood Pressure [Ri ght Upper Arm] Pulse Oximetry 98 99 98 Oxygen Delivery Me thod 10/02/24 11:15 10/02/24 11:30 10/02/24 11:32 Temperature Pulse Rate 58 L 53 L 58 L Pulse Rate [Pulse Oximeter] Respiratory Rate Blood Pressure 149/75 H Blood Pressure [Ri ght Upper Arm] Pulse Oximetry 96 98 99 Oxygen Delivery Me thod 10/02/24 11:45 10/02/24 12:00 10/02/24 12:02 Temperature Pulse Rate 54 L 53 L 53 L Pulse Rate [Pulse Oximeter] Respiratory Rate Blood Pressure 153/71 H Blood Pressure [Ri ght Upper Arm] Pulse Oximetry 98 96 98 Oxygen Delivery Me thod 10/02/24 12:26 10/02/24 12:30 10/02/24 12:33 Temperature Pulse Rate 73 61 61 Pulse Rate [Pulse Oximeter] Respiratory Rate Blood Pressure 165/70 H Blood Pressure [Ri ght Upper Arm] Pulse Oximetry 97 98 99 Oxygen Delivery Me thod 10/02/24 12:45 10/02/24 13:00 10/02/24 13:02 Temperature Pulse Rate 58 L 57 L 59 L Pulse Rate [Pulse Oximeter] Respiratory Rate Blood Pressure 152/70 H Blood Pressure [Ri ght Upper Arm] Pulse Oximetry 98 98 99 Oxygen Delivery Me thod 10/02/24 13:15 10/02/24 17:17 Temperature Pulse Rate 58 L 68 Pulse Rate [Pulse Oximeter] Respiratory Rate 16 Blood Pressure 188/68 H Blood Pressure [Ri ght Upper Arm] Pulse Oximetry 98 98 Oxygen Delivery Me thod Room Air Hospitalist - H&P: Result Labs Labs: Short CBC 10/02/24 Range/Units 10:38 WBC 11.08 H (4.50-11.00) K/uL Hgb 13.3 (12.0-16.0) gm/dL Hct 41.3 (33.0-51.0) % Plt Count 298 (140-440) K/uL BMP 10/02/24 10:38 Sodium 138 Potassium 5.3 H Chloride 109 Carbon Dioxide 21 BUN 33 H Creatinine 1.2 Glucose 150 H Calcium 9.9 Urine 10/02/24 Range/Units 12:25 Urine Color Yellow (Yellow) Urine Appearance Clear (Clear) Urine pH 5.5 (5.0-8.5) Ur Specific [place] <= 1.005 (1.000-1.030) Urine Protein Negative (Negative) Urine Glucose (UA) Negative (Negative) Imaging CT scan - head: Attestation: I have reviewed the pertinent imaging results. Radiologist's impression: No acute intracranial abnormalities MR Brain: Attestation: I have reviewed the pertinent imaging results. Radiologist's impression: Impression: 1. Small acute to early subacute infarctions within the left guerin radiata, left basal ganglia, left cerebellar hemisphere. 2. Chronic lacunar infarctions right cerebellar hemisphere. 3. Mild chronic microvascular ischemic changes and diffuse cerebral volume loss.
[2024-10-02] MEDS: ACETAMINOPHEN 325 MG TABLET 650 MG PO (21:32)
[2024-10-02] MEDS: METFORMIN 1,000 MG TABLET 1000 MG PO (21:32)
[2024-10-02] MEDS: ROSUVASTATIN CALCIUM 10 MG TABLET 5 MG PO (21:33)
[2024-10-02] MEDS: SODIUM CHLORIDE 0.9 % (FLUSH) 10 ML SYRINGE 5 ML IVF (21:34)
[2024-10-03 02:42] VITALS: BP 145/80; PULSE 54; RESP 16; TEMP 36.6; O2SAT 94
[2024-10-03] MEDS: TRAMADOL HCL 50 MG TABLET PO ×2 (04:38→10:53)
[2024-10-03 06:13] LABS: Hematocrit 37.1 % (33.0-51.0); Hemoglobin* 12.2 gm/dL (12.0-16.0); Mean Corpuscular HGB Conc 33 gm/dL (32-36); Mean Corpuscular Hemoglobin 33 pg (26-34); Mean Corpuscular Volume 99 fL (80-100); Platelet Count* 270 K/uL (140-440); Red Blood Count 3.75 m/uL (4.00-5.20); White Blood Count* 10.53 K/uL (4.50-11.00)
[2024-10-03 06:15] LABS: Slide Review Reflex No
[2024-10-03 06:26] LABS: Chloride* 109 mmol/L (96-114); Sodium* 138 mmol/L (135-149)
[2024-10-03 06:27] LABS: Potassium* 5.3 mmol/L (3.6-5.1)
[2024-10-03 06:29] LABS: Blood Urea Nitrogen* 25 mg/dL (7-30); Creatinine* 0.9 mg/dL (0.5-1.5); Est. Creatinine Clearance* 41.33; Estimated Glomerular Filt Rate 66 ml/min
[2024-10-03] MEDS: LEVOTHYROXINE 112 MCG TABLET PO (06:29)
[2024-10-03] MEDS: LEVOTHYROXINE 25 MCG TABLET PO (06:29)
[2024-10-03 06:30] LABS: Anion Gap 6 mEq/L (7-15); Calcium* 9.7 mg/dL (8.4-10.6); Carbon Dioxide* 23 mmol/L (20-32); Cholesterol* 197 mg/dL (90-199); Glucose* 98 mg/dL (60-115); Hemoglobin A1C* 6.6 % (0-5.6); Phosphorus* 3.4 mg/dL (2.5-4.5); Triglycerides* 155 mg/dL (40-149)
[2024-10-03 06:31] LABS: HDL Cholesterol* 32 mg/dL (>=50); LDL Cholesterol Calculated 134 mg/dL (<100); Magnesium* 1.5 mg/dL (1.5-2.6)
[2024-10-03 06:35] LABS: C Reactive Protein* < 0.5 mg/dL (0.5-1.0)
[2024-10-03 07:00] VITALS: BP 168/80; PULSE 69; RESP 20; TEMP 36.7; O2SAT 96
[2024-10-03 07:00] LABS: Thyroid Stimulating Hormone* 0.114 uIU/mL (0.270-4.20)
--- NOTE | 2024-10-03 07:21 | PC.NURSE ---
Patient was using the toilet with one of our floor assistants when I went in for my initial assessment. They were able to produce a moderate amount of normal urine. They walked stand by assist without a walker. However they were significantly nauseous and produced a large amount of vomit at this time. Brown and green in coloration with visible bits of whole food. One time dose of anti nausea medication given by my preceptor soon after followed by PRN pain medication. Chest on the right side described as burning and piercing in pain quality.?Pain medication given PRN overnight several times. Dressing of the chest in place and not removed. No signs of drainage. Two ZORAIDA drains are exiting from under this dressing and are being emptied and stripped every two hours. Around 10 to 5 milliliters of red, serosanguineous fluid every two hours. Vitally they have been stable since shift start although hypotensive. Feet were covered with compression devices most of the night but they requested them removed after midnight for comfort. At time of shift change the patient appeared to be in a stable state of health.?
[2024-10-03 07:34] VITALS: PULSE 64
--- NOTE | 2024-10-03 07:42 | P.DS_ITS ---
DS: Providers Provider Date Seen: 10/03/24 Date of admission: 10/02/24 18:46 Primary care physician: Herb Herman MD Admitting Clinician: Nael Griffith MD Consults: 10/02/24 20:15 Consult to Nutrition [CONS] Routine Comment: Reason for consult:: Miscellaneous Comment: stroke, DM, HTN, HLD Consult to Occupational Therapy [CONS] Routine Comment: Reason(s) for OT Consult:: Evaluate and Treat Any Restrictions?:: No Restrictions Consult to Physical Therapy [CONS] Routine Comment: Reason(s) for PT Consult:: Evaluate and Treat Any Restrictions?:: No Restrictions Consult to Speech Therapy [CONS] Routine Comment: Reason(s) for Speech Consult:: Speaking Difficulty Attending Physician on discharge: Saumya Ward [facility] Date of Discharge: 10/03/24 DS: Diagnosis Discharge Diagnosis (1) Cerebrovascular accident: Status: Acute Problem details: -two transient 1-2 minute episodes of garbled speech, 1 on 09/30/2024 and 1 on 10/02/2024, with complete resolution of symptoms -MRI of the brain on 10/02/2024: 1. Small acute to early subacute infarctions within the left guerin radiata, left basal ganglia, left cerebellar hemisphere. 2. Chronic lacunar infarctions right cerebellar hemisphere. 3. Mild chronic microvascular ischemic changes and diffuse cerebral volume loss. -has not been on aspirin previously. Started on aspirin 325 mg once daily on 10/02/2024 per recommendation from stroke neurologist -history of intolerability to atorvastatin and rosuvastatin. As such starting patient on a low dose of rosuvastatin 5 mg once daily at this time. Check lipid panel on the morning of 10/03/2024 -allow for permissive hypertension for now -continue with glucose management efforts. Recheck hemoglobin A1c in the morning of 10/03/2024. QID ACHS glucose monitoring while in hospital with sliding scale insulin. -telemetry while in hospital. -echocardiogram while in hospital -physical therapy, occupational therapy, and speech pathology to assess -dietitian consultation -stroke Neurology to reassess on 10/03/2024 10/03/2024: Day of discharge No events overnight reported, no new or worsening symptoms Hemoglobin A1c 6.6 Triglycerides 155, cholesterol 197, LDL 134, HDL 32 TSH 0.114 Speech and OT have completed their assessments, no recommendations for ongoing outpatient therapies. Patient declined PT assessment. Echocardiogram 10/02/2024 Final Impressions: 1. Normal left ventricular size, normal wall thickness, normal global systolic function, calculated EF of 72 %. 2. Right ventricular cavity size is mildly enlarged, global systolic RV function is normal. 3. 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 4. The mitral valve is normal, mild to moderate mitral regurgitation. 5. Tricuspid valve is normal, moderate-severe tricuspid regurgitation. 6. Elevated estimated pulmonary pressures by tricuspid regurgitation velocity and right atrial pressure (45 mmHg plus RAP). Comparison There are no prior studies on this patient for comparison purposes. Following reassessment, discussed with tele neurology, Dr. Soares. Recommending continuing aspirin 81 mg daily, recommending Zio patch on discharge, continue on rosuvastatin as no significant adverse reactions overnight (continue to monitor), weight management (consider decreasing amitriptyline or other medication alternative), normotensive blood pressure management, glucose management in setting of diabetes mellitus. Outpatient follow-up in stroke clinic 1 month (2) Spinal stenosis of lumbar region with neurogenic claudication: Status: Acute Problem details: Chronic, followed by PCP and Neurosurgery Scheduled for outpatient PT this coming Tuesday, 10/08, encouraged not to miss this Currently on amitriptyline, per Neurology, consider lowering this dose or using other medication as this could be interfering with her weight loss goals (3) Diabetes mellitus type 2, controlled: Status: Acute Problem details: Hemoglobin A1c 6.6, previously 7.1 in April 2024 Continue home medications, diabetic diet, weight loss goals (4) Acquired hypothyroidism: Status: Acute Problem details: TSH 0.114, previously 1.April. T3/T4 pending on day of discharge. Recommend repeat TSH with PCP and defer medication changes pending these results. (5) Essential hypertension: Status: Acute Problem details: Continue home medications (6) Hyperlipidemia: Status: Acute Problem details: While patient reports sensitivities to all statins, seemingly tolerated low- dose rosuvastatin overnight. Encouraged to continue with this with close outpatient follow-up with PCP. If unable to tolerate, neurology recommending ezetimibe DS: Summary Hospital Course Hospital Course: Course of care and details as noted above. Patient with episodes of dysarthria, completely resolved, MRI showing embolic strokes (3-for in the left cerebral hemisphere, 1 in the left cerebellum), admitted overnight for observation and further workup. Tele neurology has re- evaluated providing recommendations as above. Patient is discharged with a Zio patch in place. Has been started on aspirin 81 mg and rosuvastatin 5 mg. Will need outpatient follow-up with PCP, recheck TSH, T3/T4. Will need outpatient follow-up in stroke clinic in 1 month. In hopes of continuing weight loss, in anticipation of upcoming spinal surgeries, neurology recommending decreasing dose of amitriptyline or considering other medication alternatives. Remainder of chronic medical comorbidities were monitored and managed with home medications. Status at Discharge Cognitive/behavioral status at discharge: Back to baseline. Functional status at discharge: independent ambulation Overall status at discharge: patient is back to baseline Time Spent with Patient Time attestation: Total time spent providing and/or coordinating discharge services: Time spent: Greater than 30 minutes Exam Narrative: Exam Narrative: PHYSICAL EXAM General: Pleasant, conversant, NAD Cardiovascular: RRR Pulmonary: No dyspnea Neurological: Alert, answering questions appropriately, no focal findings Skin: Warm, dry. Const: Vital Signs, click to edit/add: Vital Signs - 24 hr 10/02/24 10:08 10/02/24 10:15 10/02/24 10:52 Temperature 97.4 F L Pulse Rate 62 Pulse Rate [Left P ulse Oximeter] Pulse Rate [Pulse Oximeter] 74 Respiratory Rate 18 Blood Pressure Blood Pressure [Le ft Arm] Blood Pressure [Ri ght Upper Arm] 176/76 H Pulse Oximetry 98 98 97 Oxygen Delivery Me thod Room Air 10/02/24 11:00 10/02/24 11:02 10/02/24 11:03 Temperature Pulse Rate 56 L 58 L 55 L Pulse Rate [Left P ulse Oximeter] Pulse Rate [Pulse Oximeter] Respiratory Rate 16 Blood Pressure 147/60 H Blood Pressure [Le ft Arm] Blood Pressure [Ri ght Upper Arm] Pulse Oximetry 98 99 98 Oxygen Delivery Me thod 10/02/24 11:15 10/02/24 11:30 10/02/24 11:32 Temperature Pulse Rate 58 L 53 L 58 L Pulse Rate [Left P ulse Oximeter] Pulse Rate [Pulse Oximeter] Respiratory Rate Blood Pressure 149/75 H Blood Pressure [Le ft Arm] Blood Pressure [Ri ght Upper Arm] Pulse Oximetry 96 98 99 Oxygen Delivery Me thod 10/02/24 11:45 10/02/24 12:00 10/02/24 12:02 Temperature Pulse Rate 54 L 53 L 53 L Pulse Rate [Left P ulse Oximeter] Pulse Rate [Pulse Oximeter] Respiratory Rate Blood Pressure 153/71 H Blood Pressure [Le ft Arm] Blood Pressure [Ri ght Upper Arm] Pulse Oximetry 98 96 98 Oxygen Delivery Me thod 10/02/24 12:26 10/02/24 12:30 10/02/24 12:33 Temperature Pulse Rate 73 61 61 Pulse Rate [Left P ulse Oximeter] Pulse Rate [Pulse Oximeter] Respiratory Rate Blood Pressure 165/70 H Blood Pressure [Le ft Arm] Blood Pressure [Ri ght Upper Arm] Pulse Oximetry 97 98 99 Oxygen Delivery Me od 10/02/24 12:45 10/02/24 13:00 10/02/24 13:02 Temperature Pulse Rate 58 L 57 L 59 L Pulse Rate [Left P ulse Oximeter] Pulse Rate [Pulse Oximeter] Respiratory Rate Blood Pressure 152/70 H Blood Pressure [Le ft Arm] Blood Pressure [Ri ght Upper Arm] Pulse Oximetry 98 98 99 Oxygen Delivery Me od 10/02/24 13:15 10/02/24 17:17 10/02/24 19:00 Temperature 98 F Pulse Rate 58 L 68 Pulse Rate [Left P ulse Oximeter] 70 Pulse Rate [Pulse Oximeter] Respiratory Rate 16 20 Blood Pressure 188/68 H Blood Pressure [Le ft Arm] 168/72 H Blood Pressure [Ri ght Upper Arm] Pulse Oximetry 98 98 99 Oxygen Delivery Me od Room Air Room Air 10/02/24 21:00 10/02/24 22:46 10/02/24 23:00 Temperature 98.8 F Pulse Rate 64 Pulse Rate [Left P ulse Oximeter] 63 Pulse Rate [Pulse Oximeter] Respiratory Rate 20 17 Blood Pressure Blood Pressure [Le ft Arm] 154/68 H Blood Pressure [Ri ght Upper Arm] Pulse Oximetry 99 96 Oxygen Delivery Me od Room Air Room Air 10/02/24 23:00 10/03/24 02:42 10/03/24 07:34 Temperature 98 F Pulse Rate 64 Pulse Rate [Left P ulse Oximeter] 54 L Pulse Rate [Pulse Oximeter] Respiratory Rate 16 Blood Pressure Blood Pressure [Le ft Arm] 145/80 H Blood Pressure [Ri ght Upper Arm] Pulse Oximetry 96 94 Oxygen Delivery Me thod Room Air Room Air DS: Data Data Completed and Pending Pending studies at discharge: T3/T4 Labs on day of discharge: Labs from last 24 hours 10/03/24 10/02/24 10/02/24 05:48 12:25 10:38 WBC 10.53 11.08 H RBC 3.75 L 4.14 Hgb 12.2 13.3 Hct 37.1 41.3 MCV 99 100 MCH 33 32 MCHC 33 32 RDW Coeff of Arun 12.2 Plt Count 270 298 Neut % (Auto) 73.0 H Lymph % (Auto) 19.0 L Antelope % (Auto) 6.3 Eos % (Auto) 1.1 Baso % (Auto) 0.3 Neut # (Auto) 8.10 H Lymph # (Auto) 2.10 Antelope # (Auto) 0.70 Eos # (Auto) 0.10 Baso # (Auto) 0.00 Abs Immat Gran (auto) 0.00 Imm/Tot Granulo (auto) 0.3 INR 1.05 APTT 26 D-Dimer Quant (PE/DVT) 0.54 H Sodium 138 138 Potassium 5.3 H 5.3 H Chloride 109 109 Carbon Dioxide 23 21 Anion Gap 6 L 8 BUN 25 33 H Creatinine 0.9 1.2 Estimated Creat Clear 41.33 34.44 Estimated GFR 66 47 Glucose 98 150 H Hemoglobin A1c 6.6 H Calcium 9.7 9.9 Phosphorus 3.4 Magnesium 1.5 C-Reactive Protein < 0.5 L < 0.5 L Triglycerides 155 H Cholesterol 197 LDL Cholesterol, Calc 134 H HDL Cholesterol 32 L TSH 0.114 L Urine Color Yellow Urine Appearance Clear Urine pH 5.5 Ur Specific [place] <= 1.005 Urine Protein Negative Urine Glucose (UA) Negative Urine Ketones Negative Urine Blood Negative Urine Nitrite Negative Urine Bilirubin Negative Urine Urobilinogen 0.2 Ur Leukocyte Esterase Trace A Urine RBC 0-2 Urine WBC 2-5 Ur Squamous Epith Cells Few Urine Bacteria Few A POC Troponin I 10/02/24 10:15 WBC RBC Hgb Hct MCV MCH MCHC RDW Coeff of Arun Plt Count Neut % (Auto) Lymph % (Auto) Antelope % (Auto) Eos % (Auto) Baso % (Auto) Neut # (Auto) Lymph # (Auto) Antelope # (Auto) Eos # (Auto) Baso # (Auto) Abs Immat Gran (auto) Imm/Tot Granulo (auto) INR APTT D-Dimer Quant (PE/DVT) Sodium Potassium Chloride Carbon Dioxide Anion Gap BUN Creatinine Estimated Creat Clear Estimated GFR Glucose Hemoglobin A1c Calcium Phosphorus Magnesium C-Reactive Protein Triglycerides Cholesterol LDL Cholesterol, Calc HDL Cholesterol TSH Urine Color Urine Appearance Urine pH Ur Specific [place] Urine Protein Urine Glucose (UA) Urine Ketones Urine Blood Urine Nitrite Urine Bilirubin Urine Urobilinogen Ur Leukocyte Esterase Urine RBC Urine WBC Ur Squamous Epith Cells Urine Bacteria POC Troponin I 0.00 L Preliminary micro results at discharge 10/02/24 12:25 Urine Culture - Preliminary Urine,Clean Catch Culture in Progress Imaging Echo: Attestation: I have reviewed the pertinent imaging results. Radiologist's impression: Final Impressions: 1. Normal left ventricular size, normal wall thickness, normal global systolic function, calculated EF of 72 %. 2. Right ventricular cavity size is mildly enlarged, global systolic RV function is normal. 3. 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 4. The mitral valve is normal, mild to moderate mitral regurgitation. 5. Tricuspid valve is normal, moderate-severe tricuspid regurgitation. 6. Elevated estimated pulmonary pressures by tricuspid regurgitation velocity and right atrial pressure (45 mmHg plus RAP). ? Comparison There are no prior studies on this patient for comparison purposes. CT scan - head: Attestation: I have reviewed the pertinent imaging results. Radiologist's impression: No acute intracranial hemorrhage. The melgar-white matter interface is preserved. The ventricles are normal in size. No abnormal extra-axial fluid collection is identified. Normal calvarium and skull base. Unremarkable orbits. The paranasal sinuses and mastoid air cells are clear. IMPRESSION: No acute intracranial abnormality. MRI - head: Attestation: I have reviewed the pertinent imaging results. Radiologist's impression: Small foci of diffusion restriction and mild FLAIR hyperintensity within the left guerin radiata, left basal ganglia, and left cerebellar hemisphere, compatible with acute to early subacute infarctions. Mild diffuse cerebral volume loss. No mass effect or midline shift. Scattered FLAIR hyperintensities in the supratentorial white matter and thai, typical for mild chronic microvascular ischemic changes. Chronic lacunar infarctions in the right cerebellar hemisphere. No intracranial hemorrhage or pathologic extra-axial fluid collection. The major arterial flow voids of the skull base are preserved. Globes are symmetric. Mild paranasal sinus mucosal thickening. Trace right mastoid fluid. Impression: 1. Small acute to early subacute infarctions within the left guerin radiata, left basal ganglia, left cerebellar hemisphere. 2. Chronic lacunar infarctions right cerebellar hemisphere. 3. Mild chronic microvascular ischemic changes and diffuse cerebral volume loss. CTA neck/head: Attestation: I have reviewed the pertinent imaging results. Radiologist's impression: CTA neck with contrast bolus tracking, 3D angiographic rendering using maximum intensity projection (MIP) and images permanently archived. FINDINGS: The origins of the great vessels are patent. There is no significant carotid artery stenosis or dissection. There is no significant vertebral artery stenosis or dissection. IMPRESSION: Patent cervical arterial vasculature without hemodynamically significant stenosis. Standard helical CT image acquisition through the head following the administration of intravenous contrast was performed. 3D and MIP reconstructions were performed at a separate workstation and permanently archived. COMPARISON: None available. FINDINGS: No intracranial proximal large vessel occlusion. 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 No evidence of cerebral aneurysm. No findings to suggest an arterial-venous shunting lesion. The major dural venous sinuses and deep venous system are patent. 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 Discharge Plan Discharge Disposition: Home, Self-Care Date of Admission: 10/02/24 18:46 Attending Provider on Discharge: Saumya Ward Primary Care Provider: Herb Herman Condition: Improved Anticipated Discharge Date/Time: 10/03/24 09:45 Discharge Medications: New rosuvastatin 10 mg Tablet 5 mg PO BEDTIME Qty: 30 0RF Rx Instructions: One half tablet po nightly aspirin 81 mg tablet 81 mg PO DAILY Qty: 90 0RF Continued levothyroxine 137 mcg tablet 137 mcg PO DAILY amitriptyline 25 mg tablet 25 mg PO QPM metformin 1,000 mg tablet 1,000 mg PO BID omeprazole 20 mg capsule,delayed release(DR/EC) 20 mg PO QPM ergocalciferol (vitamin D2) 1,250 mcg (50,000 unit) capsule 1,250 mcg PO .every week lisinopril-hydrochlorothiazide 10-12.5 mg tablet 1 tab PO DAILY naproxen 500 mg tablet 500 mg PO BID PRN (Reason: moderate pain) Discharge Orders: Discharge Order (Routine); Ordered 10/03/24 Ordered By: Saumya Ward Patient Education: Aspirin (By mouth), Rosuvastatin (By mouth), Zio (Home Heart Monitor) Additional Instructions: Continue aspirin 81 mg daily and rosuvastatin 5 mg daily. A Zio patch was placed prior to discharge, follow given instructions on returning this. You should schedule a follow-up appointment with your PCP in the next 5-7 days. You will need to schedule a follow-up appointment in the stroke clinic in 1 month. Activity Level: No Restrictions Discharge Diet: Diabetic Follow Up Appointments: Herb Herman MD [Primary Care Provider, Family Practice] Referral Note: Post hospital follow-up 5-7 days Forms: [employer] Info Instructions
[2024-10-03] MEDS: ASPIRIN EC 325 MG TABLET PO (08:42)
[2024-10-03] MEDS: METFORMIN 1,000 MG TABLET 1000 MG PO (08:42)
[2024-10-03] MEDS: SODIUM CHLORIDE 0.9 % (FLUSH) 10 ML SYRINGE 5 ML IVF (08:43)
--- NOTE | 2024-10-03 08:58 | REH.SLP ---
[employer] orders received, chart reviewed, spoke with RN who reports no swallowing or speech difficulties and met briefly with patient. Patient has no c/o any swallowing or speech changes. Oral motor WNL and patient able to drink consecutive sips of water via straw with no overt s/s of aspiration. No speech therapy indicated at this time. Will complete order.
[2024-10-03 09:45] VITALS: BMI 38.7
--- NOTE | 2024-10-03 10:50 | REH.OT ---
OT consult order received. In screening pt. she has no residual motor impairments that affect her ability to complete ADLs I at home. No formal OT assessment needed at this time. Pt. has OP PT scheduled next week for LBP and spinal stenosis affecting gait. Hospitalist was advised.
--- NOTE | 2024-10-03 11:02 | REH.PT ---
Orders received, pt refused PT evaluation.
[2024-10-03 11:19] LABS: Free T4 Free Thyroxine* 1.53 ng/dL (0.70-1.85)
--- NOTE | 2024-10-03 12:54 | PC.NURSE ---
Discharge - Pt alert, oriented, cooperative. Up with standby assistance and cane. Tolerating RA and regular diet/fluids. Pt reported pain in back, given medication per MAR with pt reporting improved comfort, however pt later reported nausea reportedly r/t medication given for pain. Pt reported nausea and emesis , refused pharmacological interventions. RN provided nonpharmacological interventions to improve nausea symptoms. Pt denied headache, dizziness, SOB. IV removed with catheter intact. Zio heart monitor applied to pt before discharge, education given with pt verbalizing understanding. D/C'd to home with spouse via wheelchair at approximately 1245.
--- NOTE | 2024-10-03 19:51 | PC.NURSE ---
Note submitted by myself on 10/02/24 is a description of events for a different patient than Angela Lamar, 10/18/1943. The following is the correct notation. -- This patient was admitted sometime before my shift start. When I saw her for my initial assessment she was alert and oriented, vitally stable, and without any symptoms of neurologic alteration. Speech was clear, face symmetrical, strength intact. Minor numbness and tingling of the hands and feet as her normal. Reading high blood sugar in the evening although the reading was after she ate. Refusing insulin.?She moves with a cane but has a notably unstable gait, favoring one foot over the other and with an odd movement of the legs. She describes this as her normal and that she does not use stairs as a result of it. Assessment of her lungs found expiatory rhonchi. No cough or sputum. Stable on room air. Refusing calf compression devices as they interrupt her ability to sleep. No edema of the legs or feet. Mentation normal. Red splotches on right lower leg that the patient reports as always being there. Patient did not seem to sleep at all overnight. PRN options had been discussed with her but not accepted. Appears in good spirits regardless. Telemetry has been showing a normal sinus rhythm that is bradycardic. Occasional PACs. At time of transfer of care the patient appeared in a stable state of health without neurologic alteration.?
[2024-10-05 02:22] LABS: Total T3 64 ng/dL (80-200)
== END 2024-10-03 12:45 | disposition home or self-care (01) ==
LOC: ED 18:18 → MEDSURG 18:46
PROVIDERS: Physician Assistant; Admitting Provider Internal Medicine; Emergency Provider Family Medicine; PCP Family Medicine; Visit Provider Internal Medicine
DX: I63.9 Cerebral infarction, unspecified (principal); R47.81 Slurred speech; M48.062 Spinal stenosis, lumbar region with neurogenic claudication; R26.89 Other abnormalities of gait and mobility; E11.22 Type 2 diabetes mellitus with diabetic chronic kidney disease; I12.9 Hypertensive chronic kidney disease with stage 1 through stage 4 chronic kidney disease, or unspecified chronic kidney disease; N18.31 Chronic kidney disease, stage 3a; Z79.84 Long term (current) use of oral hypoglycemic drugs; E03.9 Hypothyroidism, unspecified; E78.5 Hyperlipidemia, unspecified; K21.9 Gastro-esophageal reflux disease without esophagitis; F32.5 Major depressive disorder, single episode, in full remission; Z96.649 Presence of unspecified artificial hip joint
CPT/HCPCS: 36415; 70450; 70496; 70498; 70551; 80048; 80061; 81001; 82962; 83036; 83735; 84100; 84439; 84443; 84480; 84484; 85025; 85027; 85379; 85610; 85730; 86140; 87086; 93005; 93246; 93306; 94761; 96361; 96374; 99215; 99285; A9270; G0378; J1885; J7030; Q9967

== ENCOUNTER 2024-10-04 09:22 | Emergency (ER) | payer MEDICARE, OTHER, SELFPAY ==
--- OUTSIDE RECORDS SUMMARY | 2024-09-10 | XMS_ITS | Encounter Summary ---
Author Organization [facility] Address [address] [place] [address]. [place] [address] Care Team Providers Care Oracle E Business Developer Name Role Phone Herb Herman MD Primary Care Provider [phone] Herb Herman MD Unavailable Trent Qureshi MD Unavailable [phone] Encounter Details Date Type Department Care Team (Late st Contact Info) Description 09/10/2024 Ancillary Procedure [facility] Imaging [address] [place] [phone] Non-Fv Credentialed Provider, Radiology Social History Tobacco [...] often do you attend chur ch or yarsanism services? 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 file documented as of this encounter Plan of Treatment Upcoming Encounters Date Type Department Care Team (Late st Contact Info) Description 10/08/2024 3:30 PM CDT Office Visit [facility] [address] [place] [phone] [place] Herman [place] [id number] [place] [address] [phone] documented as of this encounter Procedures Procedure [...] Total Score: 0 05/02/19 25 10:13 AM SPEECH LANG PATH documented as of this encounter Care Teams Oracle E Business Developer Relationship Specialty [place] [address] [place] [address] PCP - General Family Medicine 12/24/20 [place] [address] [place] [address] Assigned PCP 01/04/21 Trent Qureshi MD [facility] [address] [place] [address] Orthopaedic Surgery 09/16/21 documented as of this encounter
--- OUTSIDE RECORDS SUMMARY | 2024-09-10 00:05 | XMS_ITS | Encounter Summary ---
Author Organization [facility] Address [address] [place] [address]. [place] [address] Care Team Providers Care Lawn Care Specialist Name Role Phone Herb Herman MD Primary Care Provider Herb Herman MD Unavailable Trent Qureshi MD Unavailable [phone] Encounter Details Date Type Department Care Team (Late st Contact Info) Description 09/10/2024 12:05 AM CDT Ancillary Procedure [facility] External Imaging [address] [place] [phone] Non-Fv Credentialed Provider, Radiology Social History Tobacco [...] often do you attend chur ch or amish services? 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 file documented as of this encounter Plan of Treatment Upcoming Encounters Date Type Department Care Team (Late st Contact Info) Description 10/08/2024 3:30 PM CDT Office Visit [address] [phone] Herb Herman MD [address] [place] [phone] documented as of this encounter Procedures Procedure Name Priority Date/Time Associated Diagnosis Comments XR EXTERNAL IMAGING SPINE Routine 09/10/2024 12:05 AM CDT documented in this encounter Results * XR External Imaging Spine (09/10/2024 12:05 AM CDT) Narrative Service Account, Ob Yumik - 09/13/2024 12:24 PM CDT Images were obtained from an [...] Total Score: 0 05/02/19 25 10:13 AM ELASTIC CUTTER documented as of this encounter Care Teams Lawn Care Specialist Relationship Specialty [place] [address] [facility] [place] [address] PCP - General Family Medicine 12/24/20 [place] [address] [place] [address] Assigned PCP 01/04/21 Trent Qureshi MD [facility] [address] [place] [address] Orthopaedic Surgery 09/16/21 documented as of this encounter
--- OUTSIDE RECORDS SUMMARY | 2024-09-19 14:20 | XMS_ITS | Encounter Summary ---
Author Organization [place] Address [address] [facility] [place] [address] Care Team Providers Care News Library Director Name Role Phone Herb Herman MD Primary Care Provider [phone] Herb Herman MD Unavailable Trent Qureshi MD Unavailable [phone] Reason for Referral * Consultation (Routine: Next available opening) - Pending Review Specialty Diagnoses / Procedures Referred By Contac t Referred To Contact Diagnoses Lumbar stenosis with neurogenic claudication Sammy Villa MD [address] [address] Phone: tel: fax: Referral ID Status Reason Start Date Expiration Date V isits Requested Visits Authorized [id number] Pending Review 09/19/2024 09/19/2025 1 1 Question Answer Referral Type: Procedure Procedure: Epidural (Advanced imaging required in the last 3 years) Location: Lumbar Injection Type: Interlaminar ARTHUR Level: L3-4 Has the patient had a CT or MRI of the area of concern within the last 12 months? Yes Patient Scheduling Instructions: Our [facility] Orthopedic Art Therapist team will contact you via phone, text, email or MyChart within 2 business days to help you schedule your appointment, or you may contact the Art Therapist Team at . Additional Information: L3-4 or L4-5 ARTHUR Comments Please be aware that coverage of these services is subject to the terms and limitations of your health insurance plan. Call member services at your health plan with any benefit or coverage questions. Our [facility] Orthopedic Art Therapist team will contact you via phone, text, email or MyChart within 2 business days to help you schedule your appointment, or you may contact the Art Therapist Team at . * Rehab Therapy Physical Therapy (Routine: Next available opening) - Pending Review Specialty Diagnoses / Procedures Referred By Ambreen allen Referred To Contact Diagnoses Lumbar stenosis with neurogenic claudication Sammy Villa MD [address] [facility] [address] [place] [address] Phone: tel: fax: Referral ID Status Reason Start Date Expiration Date V isits Requested Visits Authorized [id number] Pending Review 09/19/2024 09/19/2025 1 1 Question Answer Course of Action: Evaluation and Treatment Specialty Services: Per Associated Diagnosis Patient Scheduling Instructions: [facility] will call you to coordinate your care as prescribed by your provider. If you don't hear from a business development representative within 2 business days, please call . Comments Please be aware that coverage of these services is subject to the terms and limitations of your health insurance plan. Call member services at your health plan with any benefit or coverage questions. [facility] will call you to coordinate your care as prescribed by your provider. If you don't hear from a business development representative within 2 business days, please call . Reason for Visit * Reason Comments Consult Low back pain * Consultation (Routine: Next available opening) - Closed Specialty Diagnoses / Procedures Referred By Contac t Referred To Contact Orthopedics Diagnoses Low back pain Douglas Hernandez MD [facility] [address] [facility] [address] [place] [address] Phone: tel: fax: Referral ID Status Reason Start Date Expiration Date Visits Re quested Visits Authorized [id number] Closed 09/11/2024 09/11/2025 1 1 Encounter Details Date Type Department Care Team (Late st Contact Info) Description 09/19/2024 2:20 PM CDT Office Visit [facility] [place] [address] [facility] [address] [place] [phone] Douglas Hernandez MD [facility] [address] [place], [place] [address] Sammy Villa MD [address] [facility] [address] [facility] [address] [place], [place] [id number] Lumbar stenosis with neurogenic claudication (Primary Dx); [...] How often do you attend chur or buddhist services? More than 4 times per year 06/08/2021 Do you belong to any clubs o r organizations such as jew groups, unions, fraternal or athletic groups, or [...] Answer Date Recorded PHQ-2 Score 0 05/02/2024 [place] [employer] Occupat ional Health - Occupational Stress [...] in an abandoned building, in an overnight mcc, or couch-surfing.) Yes 04/25/2023 Are you worried [...] AM CDT Legal Sex Female 3:11 AM BOW MAKER CUSTOM Gender Identity Female 01/16/2019 8:38 AM CDT Sexual Orientation Choose not to disclose 2021 11:32 AM BOW MAKER CUSTOM Occupation Industry Job Start Date Job End [...] if symptoms persist after this timeframe. Our [facility] Orthopedic Art Therapist team will contact you via phone, text, email or MyChart within 2 business days to help you schedule your appointment, or you may contact the Art Therapist Team at . Order placed for physical therapy. You can call the phone number highlighted in the order to schedule your appointment. Please call our clinic if symptoms persist after your course of physical therapy. If you have not heard from the scheduling office within 2 business days, please call [phone] [facility], for [place] and [phone] [facility]. Please call us if you have any further questions or concerns. [facility] Neurosurgery Clinic documented in this encounter Progress [...] Due to statin intolerance vitamin D2 (ERGOCALCIFEROL) 09676 units (1250 mcg) capsule TAKE ONE CAPSULE [...] Robertson - 09/19/2024 2:20 PM CDT Angela Lamra is a 78 year old female who [...] CDT Office Visit [facility] [address] [place] [address] [place] [address] [place] [address] Scheduled Referrals Name Type Priority Associated Diagnoses Orde r Schedule Physical Therapy Art Therapist Referral Referral Routine: Next available opening Lumbar stenosis with neurogenic claudication Expected: 09/19/2024 (Approximate), Expires: 09/19/2025 Spine Art Therapist Referral Referral Routine: Next available opening Lumbar [...] Total Score: 0 05/02/19 25 10:13 AM BOW MAKER CUSTOM documented as of this encounter Care Teams News Library Director Relationship Specialty [place] [address] [place] [address] PCP - General Family Medicine 12/24/20 [place] [address] [place] [address] Assigned PCP 01/04/21 Trent Qureshi MD [facility] [address] [place] [address] Orthopaedic Surgery 09/16/21 documented as of this encounter
--- OUTSIDE RECORDS SUMMARY | 2024-09-26 10:15 | XMS_ITS | Encounter Summary ---
Author Organization [place] Address [facility] [place] [address] Care Team Providers Care Pulley Worker Name Role Phone Herb Herman MD Primary Care Provider [phone] Herb Herman MD Unavailable Trent Qureshi MD Unavailable [phone] Reason for Referral * Clinically Administered Medications (Routine) - Closed Specialty Diagnoses / Procedures Referred By Contac t Referred To Contact Diagnoses unknown [place] [address] [place] [address] Phone: tel: fax: Referral ID Status Reason Start Date Expiration Date Visits Re quested Visits Authorized [id number] Closed 09/26/2024 09/26/2025 1 1 Reason for Visit * Reason Comments Pain * Consultation (Routine: Next available opening) - Pending Review Specialty Diagnoses / Procedures Referred By Contac t Referred To Contact Diagnoses Lumbar stenosis with neurogenic claudication Sammy Villa MD [address] [facility] [address] [place] [address] Phone: tel: fax: Referral ID Status Reason Start Date Expiration Date V isits Requested Visits Authorized [id number] Pending Review 09/19/2024 09/19/2025 1 1 Encounter Details Date Type Department Care Team (Latest Contact Info) Description 09/26/2024 10:15 AM CDT Radiology Injection Office Visit [facility] [place] [address] [place] [address] [address] [place], [place] [address] Sammy Villa MD [address] [facility] [address] [place] [address] [place] [address] [place] [id number] Lumbar radiculopathy (Primary Dx); Lumbar stenosis with [...] week 06/08/2021 How often do you attend [facility] or moravian services? More than 4 times per year 06/08/2021 Do you belong to any clubs o r organizations such as lutheran groups, unions, fraternal or athletic groups, or [...] Answer Date Recorded PHQ-2 Score 0 05/02/2024 [facility] of Occupat ional Health - Occupational Stress [...] in an abandoned building, in an overnight skilled nursing, or couch-surfing.) Yes 04/25/2023 Are you worried [...] AM CDT Legal Sex Female 3:11 AM INVENTORY COORDINATOR Gender Identity Female 01/16/2019 8:38 AM CDT Sexual Orientation Choose not to disclose 2021 11:32 AM INVENTORY COORDINATOR Occupation Industry Job Start Date Job End [...] Velazquez RN - 09/26/2024 10:15 AM CDT [facility] Center Procedure Discharge Instructions [...] pain center line during work hours at [phone] on-call physician after hours at [phone]: -Fever over 100 degree F -Swelling, bleeding, [...] from the original note were not included. [facility] Management Center - Procedure Note Date [...] the procedure. Diagnosis: Lumbar spondylosis; Lumbar radiculitis/radiculopathy Scanning Coordinator: Daniel Dunlap MD Anesthesia: none Indications: Angela [...] 7.1 MRI LUMBAR SPINE was done @ [facility] on 02/15/2024 and was reviewed - [...] any questions or NO to having a certified driver examiner Please complete laminated checklist and leave on [...] oral steroids? NO Do you have a certified driver examiner? Yes Are you or ? Not Applicable Have you received any vaccinations in the last week? NO Vitals: B/P 172/78 Manual Recheck: B/P 148/68 Notify provider and RNs if systolic BP >170, diastolic BP >100, P >100 or O2 sats < 90% Mikala Staley MA [facility] Management Center * Ruma [...] Yes Signature/Title: Ruma R Yelle, RN RN Side Panel Hanger [facility] [place] documented in this encounter Plan of Treatment Upcoming Encounters Date Type Department Care Team (Late st Contact Info) Description 10/08/2024 3:30 PM CDT Office Visit [facility] [address] [place] [phone] Herb Herman MD [address] [place] [address] documented as of this encounter Procedures Procedure [...] from the original result were not included. [facility] - Procedure Note Date of Visit: [...] the procedure. Diagnosis: Lumbar spondylosis; Lumbar radiculitis/radiculopathy Scanning Coordinator: Daniel Dunlap MD Anesthesia: none Indications: Angela [...] DUNLAP MD Pain Management Daniel Dunlap MD [facility] PAIN MANAGEMENT ORDERABLES [...] Total Score: 0 05/02/19 25 10:13 AM INVENTORY COORDINATOR documented as of this encounter Care Teams Pulley Worker Relationship Specialty [place] [address] [place] [address] PCP - General Family Medicine 12/24/20 [place] [address] [place] [address] Assigned PCP 01/04/21 Trent Qureshi MD [facility] [address] [place] [address] Orthopaedic Surgery 09/16/21 documented as of this encounter
[2024-10-04 09:29] VITALS: BP 154/70; PULSE 80; RESP 14; TEMP 36.6; O2SAT 96; BMI 38.8
--- NOTE | 2024-10-04 09:44 | ED.GENADULT ---
HPI - General Adult General Date Seen: 10/04/24 Chief complaint: Neuro Symptoms/Altered Deficit Stated complaint: Thinks have a mini stroke Time Seen by Provider: 10/04/24 09:43 History of Present Illness HPI narrative: 78-year-old female presents to the ER today with probable TIA. She had about a 1 minute episode of dysarthria that happened about 9:00 a.m. this morning. At the time of presentation to the ER she is not having any ongoing neurologic deficits. She has a past medical history including hyperlipidemia, hypertension, type 2 diabetes, hypothyroidism, hip replacement, depression. Patient came to the ER 2 days ago on 10/02 after having had 2 episodes of dysarthria each lasting a few minutes. Workup in the ER showed white count of 11, hemoglobin 13.3, platelet count 298. D-dimer was 0.54 (age adjusted normal) INR was 1.05, PTT was 26, sodium 138, potassium 5.3, chloride 109, bicarb 21, BUN 33, creatinine 1.2, glucose 150. Urinalysis normal. CT head was normal. CT angiogram of her head showed moderate to severe stenosis of the proximal inferior trunk of the left middle cerebral artery CT angiogram of her neck showed patent cervical arterial vasculature without hemodynamically significant stenosis. MRI of her brain showed small acute to early subacute infarctions in the left guerin radiata, left basal ganglia, left cerebellar hemisphere. Chronic lacunar infarctions of the right cerebellar hemisphere. Mild chronic microvascular ischemic changes. Echocardiogram 10/02/2024 Final Impressions: 1. Normal left ventricular size, normal wall thickness, normal global systolic function, calculated EF of 72 %. 2. Right ventricular cavity size is mildly enlarged, global systolic RV function is normal. 3. 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 4. The mitral valve is normal, mild to moderate mitral regurgitation. 5. Tricuspid valve is normal, moderate-severe tricuspid regurgitation. 6. Elevated estimated pulmonary pressures by tricuspid regurgitation velocity and right atrial pressure (45 mmHg plus RAP). She was admitted for hospitalization. Started on aspirin 325 mg in the hospital and then discharged on aspirin 81 mg daily. She was put back on rosuvastatin. Recommend outpatient Zio patch. Concern was for possible embolic source of strokes. Patient reports that after taking 1 5 mg 2 stat yesterday she had a lot of GI upset and intolerance so her pharmacy would not even fill the statin for her. She is not going to take it. She has been doing well overnight last night since discharge but this morning she had a little episode with a palpitation discomfort in her left chest that lasted for a minute and then shortly after that developed a mild left frontal headache that came and went in a few seconds and then had another 1 or 2 minute episode of dysarthria where she was having trouble speaking. No other symptoms. No facial numbness. No numbness or weakness in her arms or legs. Her speech symptoms have not resolved and she is feeling back to normal. She came back to the ER because she was told to come back with any recurrent stroke symptoms. Related Data Home Medications ?Medication ?Instructions ?Recorded ?Confirmed amitriptyline 25 mg tablet 25 mg PO QPM 01/31/24 10/02/24 ergocalciferol (vitamin D2) 1,250 1,250 mcg PO .every week 01/31/24 10/02/24 mcg (50,000 unit) capsule levothyroxine 137 mcg tablet 137 mcg PO DAILY 01/31/24 10/02/24 lisinopril 10 1 tab PO DAILY 01/31/24 10/02/24 mg-hydrochlorothiazide 12.5 mg tablet metformin 1,000 mg tablet 1,000 mg PO BID 01/31/24 10/02/24 naproxen 500 mg tablet 500 mg PO BID PRN moderate pain 01/31/24 10/02/24 omeprazole 20 mg capsule,delayed 20 mg PO QPM 01/31/24 10/02/24 release Previous Rx's ?Medication ?Instructions ?Recorded aspirin 81 mg tablet 81 mg PO DAILY #90 tabs 10/03/24 rosuvastatin 10 mg tablet 5 mg (1/2 x 10 mg) PO BEDTIME #30 10/03/24 tabs clopidogrel 75 mg tablet 75 mg PO DAILY #30 tabs 10/04/24 ezetimibe 10 mg tablet (Zetia) 10 mg PO DAILY #30 tabs 10/04/24 Allergies Allergy/AdvReac Type Severity Reaction Status Date / Time doxycycline Allergy Verified 10/02/24 10:05 erythromycin base Allergy Verified 10/02/24 10:05 morphine Allergy Verified 10/02/24 10:05 [facility] Medical History (Updated 10/04/24 @ 12:26 by Saroj Pelletier MD) Hyperlipidemia ?E78.5 - Hyperlipidemia, unspecified (ICD-10) Major 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 (12/22/15) ?F32.5 - Major depressive disorder, single episode, in full remission (ICD-10) Poor balance (05/20/23) ?R26.89 - Other abnormalities of gait and mobility (ICD-10) Spinal stenosis of lumbar region with neurogenic claudication (03/20/15) ?M48.062 - Spinal stenosis, lumbar region with neurogenic claudication (ICD-10) Lumbar radiculopathy ?M54.16 - Radiculopathy, lumbar region (ICD-10) Lumbosacral radiculitis ?M54.17 - Radiculopathy, lumbosacral region (ICD-10) Lumbar spondylosis ?M47.816 - Spondylosis without myelopathy or radiculopathy, lumbar region (ICD-10) Obesity (BMI 30-39.9) ?E66.9 - Obesity, unspecified (ICD-10) Chronic kidney disease, stage 3a ?N18.31 - Chronic kidney disease, stage 3a (ICD-10) Insomnia ?G47.00 - Insomnia, unspecified (ICD-10) Acquired hypothyroidism ?E03.9 - Hypothyroidism, unspecified (ICD-10) 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 - Stenosis of larynx (ICD-10) Diabetes mellitus type 2, controlled ?E11.9 - Type 2 diabetes mellitus without complications (ICD-10) Vitamin D deficiency ?E55.9 - Vitamin D deficiency, unspecified (ICD-10) Essential hypertension ?I10 - Essential (primary) hypertension (ICD-10) Surgical History S/P total hip arthroplasty (09/21/21) ?Z96.649 - Presence of unspecified artificial hip joint (ICD-10) Social History What is your current living situation?: I presently have a place to live Problems where you live: no known problems Problems where you live details: NA In the past 12 months, utilities in danger of being shut off: no In past 12 months, lack of transportation kept you from medical appts, meetings, work, or getting things needed for daily living: no In the past 12 mos, have been you worried that your food would run out before you had money to buy more?: never true In the past 12 mos, the food you bought just didn't last and you didn't have money to buy more?: never true Highest level of school completed/degree received: Master's degree Smoking Status: Never smoker Do you use any of these nicotine containing products: None Second hand tobacco smoke exposure: No How often do you have a drink containing alcohol: never How often do you have six or more drinks on one occasion: Never AUDIT-C Alcohol total score: 0 Non-prescribed substance use: denies use Caffeine: Yes (Diet Pepsi, Daily) How often does anyone, including family, friends and others, physically hurt you: never How often does anyone, including family, friends and others, insult or talk down to you: never How often does anyone, including family, friends and others, threaten you with harm: never How often does anyone, including family, friends and others, scream or curse at you: never service: No Exam Narrative: Exam Narrative: Constitutional: Appears well-developed and well-nourished. Alert. Conversant. Non toxic. HENT: Head: Atraumatic. Nose: Nose normal. Mouth/Throat: Oral mucosa is clear and moist. no trismus. Pharynx normal. Tonsils symmetric. No tonsillar enlargement, erythema, or exudate. Eyes: Conjunctivae normal. EOM normal. Pupils equal, round, and reactive to light. No scleral icterus. Neck: Normal range of motion. Neck supple. No tracheal deviation present. Cardiovascular: Normal rate, regular rhythm. No gallop. No friction rub. No murmur heard. Symmetric radial artery pulses Pulmonary/Chest: Effort normal. No stridor. No respiratory distress. No wheezes. No rales. No rhonchi . No tenderness. Abdominal: Soft. No distension. No mass. No tenderness. No rebound. No guarding. Musculoskeletal: RUE: Normal range of motion. No tenderness. No deformity LUE: Normal range of motion. No tenderness. No deformity RLE: Normal range of motion. No edema. No tenderness. No deformity LLE: Normal range of motion. No edema. No tenderness. No deformity Neurological: Mental status normal. Attention normal. Alert and oriented x3. GCS 15. Memory normal. Speech fluent. Cognition normal. Cranial Nerves intact II-XII except I did not formally test gag or visual acuity. EOMI. Palate elevates symmetrically and tongue protrudes in the midline. Strength: 5/5 trapezius on the right and left 5/5 deltoid on the right and left 5/5 biceps on the right and left 5/5 triceps on the right and left 5/5 apple checker on the right and left 5/5 thumb opposition on the right and left 5/5 finger abduction on the right and left 5/5 hip flexors (L3) on the right and left 5/5 quadriceps (L4) on the right and left 5/5 tibialis anterior on the right and left 5/5 EHL (L5) on the right and left 5/5 gastrocnemius (S1) on the right and left 5/5 hamstring on the right and left Sensation intact to light touch in both upper extremities (C4-T1) Sensation intact to light touch in Both lower extremities (L4-S1). Finger to nose and coordination normal. Gait normal. She does use a cane to walk because of pre-existing spinal stenosis some low back pain.. Skin: Skin is warm and dry. No rash noted. No pallor. Normal capillary refill. Psychiatric: Normal mood. Normal affect. Very polite. 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 Const: Vital Signs, click to edit/add: Vital Signs - 24 hr 10/04/24 09:29 10/04/24 10:30 10/04/24 11:00 Temperature 97.8 F Pulse Rate 72 62 Pulse Rate [Pulse Oximeter] 80 Respiratory Rate 14 16 14 Blood Pressure 166/75 H 141/67 H Blood Pressure [Ri ght Upper Arm] 154/70 H Pulse Oximetry 96 Oxygen Delivery Me thod Room Air 10/04/24 11:30 10/04/24 12:00 Temperature Pulse Rate 64 63 Pulse Rate [Pulse Oximeter] Respiratory Rate 12 14 Blood Pressure 144/88 H 140/59 H Blood Pressure [Ri ght Upper Arm] Pulse Oximetry Oxygen Delivery Me thod Course Course ED Course: Patient arrived and was triaged and ER room 6. Since no stroke symptoms have resolved we did not make her stroke team activation but I did order a urgent noncontrast head CT and placed a phone consult with Stroke Neurology. On my initial evaluation she had no ongoing neurologic deficits. Symptoms suggestive for another TIA. Discussed the Stroke Neurology who was able to review the CT and feels that it is normal. No acute hemorrhage. Stroke Neurology recommends addition of Plavix with 300 mg load today and then 75 mg daily for 2 months for dual anti-platelet therapy and then after that discontinue Plavix and continue aspirin for life. Stroke neurology is not feel another MRI is necessary this morning as long as no further symptoms occur. Discussed with stroke neurology that symptoms are concerning for another TIA and with strict speech deficits these could be related to the abnormalities noted in the left MCA on her CT angiogram from recent hospitalization. No vascular surgery or stent intervention is feasible. Medical therapy with dual anti-platelet therapy and aggressive cholesterol control. Stroke Neurology recommend statins. Unfortunate the patient is completely intolerant and cannot take any statin. Also discussed that recent MRI showed several areas acute and subacute infarct. These are potentially embolic. Some of these would be outside the vascular territory of the left MCA which would suggest an alternative source such as a cardioembolic. ECHO showed normal bowels. Thus far cardiac workup in EKGs has shown sinus rhythm. She is wearing a Zio patch look for AFib. Stroke Neurology recommends against empiric anticoagulation with warfarin or Eliquis until/ unless AFib is definitively detected. He does want her to keep wearing the Zio patch. Vital Signs Vital signs: Initial Vital Signs Temperature 97.8 F 10/04/24 09:29 Temperature Source Temporal Artery Scan 10/04/24 09:29 Pulse Rate 80 10/04/24 09:29 Pulse Rhythm Regular 10/04/24 09:29 Respiratory Rate 14 10/04/24 09:29 Blood Pressure 154/70 H 10/04/24 09:29 Blood Pressure Mean 98 10/04/24 09:29 Blood Pressure Position Sitting 10/04/24 09:29 Pulse Oximetry 96 10/04/24 09:29 Oxygen Delivery Method Room Air 10/04/24 09:29 Vital Signs Temperature 97.8 F 10/04/24 09:29 Pulse Rate 80 10/04/24 09:29 Respiratory Rate 14 10/04/24 09:29 Blood Pressure 154/70 H 10/04/24 09:29 Pulse Oximetry 96 10/04/24 09:29 Oxygen Delivery Method Room Air 10/04/24 09:29 Temperature 97.8 F 10/04/24 09:29 Pulse Rate 63 10/04/24 12:00 Respiratory Rate 14 10/04/24 12:00 Blood Pressure 140/59 H 10/04/24 12:00 Pulse Oximetry 96 10/04/24 09:29 Oxygen Delivery Method Room Air 10/04/24 09:29 Medications Administered Medications: Generic Name Dose Route Start Last Admin Trade Name Freq PRN Reason Stop Dose Admin Aspirin 81 mg 10/05/24 09:00 10/04/24 11:15 Aspirin 81 Mg Tab.Chew PO 81 mg DAILY EDEL Administration Discontinued Medications Generic Name Dose Route Start Last Admin Trade Name Freq PRN Reason Stop Dose Admin Clopidogrel Bisulfate 300 mg 10/04/24 10:12 10/04/24 10:45 Clopidogrel 300 Mg Tablet PO 10/04/24 10:13 300 mg ONCE ONE Administration Medical Decision Making MDM Narrative Medical decision making narrative: Very 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 She had had 2 TIAs and was worked up here in the ER 2 days ago and admitted to the hospital overnight with MRI showing several small acute/subacute infarcts. Workup during hospitalization included workup for possible embolic sources of stroke. None was found. She is currently wearing a Zio patch and was discharged home with statin and aspirin. She came back to the ER today with another TIA. It is in discussion with Stroke Neurology, plan would be to add Plavix and continue dual anti-platelet therapy for 60 days. After that discontinue Plavix and continue aspirin for life. Plavix 75 mg daily for 1 month prescribed. She will follow-up with her PCP next Tuesday and get refills to make sure she gets the full 60 days. Discussed avoidance of NSAIDs and bleeding risk while on aspirin Plavix. Patient verbalizes understanding. Since she is intolerant of statins, stroke neurology recommends substitution Zetia. Prescription provided. Other workup including kidney function, electrolytes, EKG, troponin are normal. She did have 1 brief palpitations this morning. However has sinus rhythm monitor so far. Continue Zio patch surveillance to look to see if she is having paroxysmal AFib with stroke neurology advises against addition of Eliquis or warfarin for now. TIA and stroke precautions reviewed with the patient and her . Lab Data Labs: Lab Results 10/04/24 Range/Units 10:15 WBC 12.31 H (4.50-11.00) K/uL RBC 4.12 (4.00-5.20) m/uL Hgb 13.4 (12.0-16.0) gm/dL Hct 40.7 (33.0-51.0) % MCV 99 (80-100) fL MCH 33 (26-34) pg MCHC 33 (32-36) gm/dL RDW Coeff of Arun 12.0 (11.5-15.5) % Plt Count 288 (140-440) K/uL Neut % (Auto) 77.4 H (42.0-72.0) % Lymph % (Auto) 15.4 L (20-44) % [place] % (Auto) 6.1 (0.0-11.0) % Eos % (Auto) 0.7 (0.0-7.0) % Baso % (Auto) 0.2 (0.0-3.0) % Neut # (Auto) 9.50 H (1.7-7.0) K/uL Lymph # (Auto) 1.90 (0.90-2.90) K/uL [place] # (Auto) 0.80 (0.00-0.90) K/UL Eos # (Auto) 0.10 (0.00-0.50) K/uL Baso # (Auto) 0.00 (0.00-0.30) K/uL Abs Immat Gran (auto) 0.00 (0.00-0.30) K/uL Imm/Tot Granulo (auto) 0.2 % INR 1.30 H (0.91-1.10) Sodium 138 (135-149) mmol/L Potassium 4.9 (3.6-5.1) mmol/L Chloride 105 (96-114) mmol/L Carbon Dioxide 22 (20-32) mmol/L Anion Gap 11 (7-15) mEq/L BUN 24 (7-30) mg/dL Creatinine 1.0 (0.5-1.5) mg/dL Estimated Creat Clear 41.33 Estimated GFR 58 ml/min Glucose 143 H (60-115) mg/dL Calcium 10.0 (8.4-10.6) mg/dL Troponin I < 0.01 (0.01-0.04) ng/mL Imaging Data CT scan - head: Attestation: I have reviewed the pertinent imaging results. Radiologist's impression: IMPRESSION: 1. Subtle hypoattenuation within the left guerin radiata correlating with the acute infarcts seen on MRI dated 10/02/2024. The other areas of infarction are not well appreciated on CT. No mass effect or midline shift. ECG Data Attestation: I personally reviewed and interpreted this ECG as follows: Interpretation: Normal sinus rhythm Rate: 74 VA: 176 QRS axis: Right bundle-branch block. Normal QRS axis ST segment/T wave: No ST segment elevation or depression. Nonspecific T-wave inversions V1-V4 QTc: 435 Discharge Plan Discharge Clinical Impression: Brain TIA, Middle cerebral artery stenosis Patient Disposition: Home, Self-Care Condition: Stable Instructions: Transient Ischemic Attack (ED) Additional Instructions: As we discussed, please follow-up with your doctors at [place] on Tuesday for your recheck. Continue to do year Zio patch and make sure to follow-up on those test results. Please start on the extra medication (Plavix) and on the new cholesterol medication (Zetia). If you have any recurrent symptoms especially more stroke symptoms, please return to the ER right away. Prescriptions: New clopidogrel 75 mg tablet 75 mg PO DAILY Qty: 30 2RF ezetimibe [Zetia] 10 mg tablet 10 mg PO DAILY Qty: 30 0RF No Action levothyroxine 137 mcg tablet 137 mcg PO DAILY amitriptyline 25 mg tablet 25 mg PO QPM metformin 1,000 mg tablet 1,000 mg PO BID omeprazole 20 mg capsule,delayed release(DR/EC) 20 mg PO QPM ergocalciferol (vitamin D2) 1,250 mcg (50,000 unit) capsule 1,250 mcg PO .every week lisinopril-hydrochlorothiazide 10-12.5 mg tablet 1 tab PO DAILY naproxen 500 mg tablet 500 mg PO BID PRN (Reason: moderate pain) rosuvastatin 10 mg Tablet 5 mg PO BEDTIME Qty: 30 0RF Rx Instructions: One half tablet po nightly aspirin 81 mg tablet 81 mg PO DAILY Qty: 90 0RF Follow Up/Referrals: Herb Herman MD [Primary Care Provider, Family Practice] Stand Alone Forms: [employer] Info Instructions
--- NOTE | 2024-10-04 09:50 | CT_ITS ---
Patient: MICHAEL BA Facility:?[facility] Patient ID:?[id number] Site Patient ID:?[id number]. Site :?[id number] Study:?CT-Head w/o-10/04/2024 10:24:45 AM Ordering Physician:Sameer Kyle Final Report: INDICATION: Transient ischemic attack. TECHNIQUE: CT head without contrast. COMPARISON: 10/02/2024. MRI 10/02/2024. FINDINGS: Brain: Anterior cerebral atrophy is unchanged. Very subtle hypoattenuation within the left guerin radiata corresponding to the infarct seen on the prior MRI. The other areas of infarct within the left basal ganglia and left cerebellum are not well appreciated. No gross evidence of hemorrhage. No mass effect or midline shift. No hydrocephalus. Basilar cisterns are patent. Other: No displaced calvarial fracture. Visualized portions of the orbits, mastoids and paranasal sinuses are unremarkable. IMPRESSION: 1. Subtle hypoattenuation within the left guerin radiata correlating with the acute infarcts seen on MRI dated 10/02/2024. The other areas of infarction are not well appreciated on CT. No mass effect or midline shift. Please note that all CT scans at this facility use dose modulation, iterative reconstruction, and/or weight-based dosing when appropriate to reduce radiation dose to as low as reasonably achievable. Dictated by Raymond Jalloh MD @ 10/04/2024 10:40:21 AM Signed by:?Raymond Jalloh MD @10/04/2024 10:40:21 AM (Electronic Signature)
[2024-10-04 10:25] LABS: Basophils Percent Auto 0.2 % (0.0-3.0); Eosinophils Percent Auto 0.7 % (0.0-7.0); Hematocrit 40.7 % (33.0-51.0); Hemoglobin* 13.4 gm/dL (12.0-16.0); Immature Granulocytes Pct Auto 0.2 %; Lymphocytes Percent Auto 15.4 % (20-44); Mean Corpuscular HGB Conc 33 gm/dL (32-36); Mean Corpuscular Hemoglobin 33 pg (26-34); Mean Corpuscular Volume 99 fL (80-100); Monocytes Percent Auto 6.1 % (0.0-11.0); Neutrophils Percent Auto 77.4 % (42.0-72.0); Platelet Count* 288 K/uL (140-440); Red Blood Count 4.12 m/uL (4.00-5.20); White Blood Count* 12.31 K/uL (4.50-11.00)
[2024-10-04 10:30] VITALS: BP 166/75; PULSE 72; RESP 16
[2024-10-04 10:30] LABS: Slide Review Reflex No
[2024-10-04 10:42] LABS: Chloride* 105 mmol/L (96-114); Sodium* 138 mmol/L (135-149)
[2024-10-04 10:45] LABS: Anion Gap 11 mEq/L (7-15); Blood Urea Nitrogen* 24 mg/dL (7-30); Carbon Dioxide* 22 mmol/L (20-32); Est. Creatinine Clearance* 41.33; Estimated Glomerular Filt Rate 58 ml/min; Glucose* 143 mg/dL (60-115)
[2024-10-04] MEDS: CLOPIDOGREL 300 MG TABLET PO (10:45)
[2024-10-04 10:48] LABS: Prothrombin Time 17.2 Seconds
--- OUTSIDE RECORDS SUMMARY | 2024-10-04 10:50 | XMS_ITS | Encounter Summary ---
Author Organization [facility] Address [address] [place] [address] Care Team Providers Care Funds Development Director Name Role Phone Daniel Plaza MD Primary Care Provider Daniel Plaza MD Unavailable Daniel Plaza MD Unavailable [phone] Stan Barnes MD Unavailable [phone] Herb Herman MD Primary Care Provider [phone] Herb Herman MD Unavailable Stan Barnes MD Unavailable [phone] Trent Qureshi MD Unavailable [phone] Sammy Villa MD Unavailable Encounter Details Date Type Department Care Team (Late st Contact Info) Description 06/23/2011 MyC Medical Advice [facility] [address] [phone] Daniel Plaza MD [address] [phone] Social History Tobacco Use Types Packs/Day Years Used Date Smoking Tobacco: Never Smokeless Tobacco: Never Alcohol Use Standard Drinks/Week Comments No 0 (1 standard drink = 0.6 oz pur e alcohol) Comments No Sex and Gender Information Value Date Recorded Sex Assigned at Female 01/16/2019 8:38 AM CDT Legal Sex 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 Gender Identity Female 01/16/2019 8:38 AM CDT Sexual Orientation Choose not to disclose 2021 11:32 AM WEB CONSULTANT documented as of this encounter Plan of Treatment Upcoming Encounters Date Type Department Care Team (Late st Contact Info) Description 10/08/2024 3:30 PM CDT Office Visit [facility] [id number] [place] [phone] [place] [id number] [place] [id number] documented as of this encounter Visit Diagnoses Not on filedocumented in this encounter Care Teams Funds Development Director Relationship Specialty Start Date End Date Daniel Plaza MD [address] [place] [phone] PCP - General 06/29/10 12/23/20 Daniel Plaza MD [address] [place] [phone] PCP - Assigned PCP 02/05/08 06/13/18 [place] [address] [place] [address] PCP - General Family Medicine 12/24/20 Daniel Plaza MD [address] [place] [phone] Assigned PCP 01/13/12 01/03/21 Stan Barnes MD [address] [place] [address] Assigned Surgical Provider 02/01/20 07/19/20 [place] [address] [place] [address] Assigned PCP 01/04/21 Stan Barnes MD [address] [place] [phone] Assigned Surgical Provider 08/30/21 08/31/23 Trent Qureshi MD [facility] [address] [place] [address] Orthopaedic Surgery 09/16/21 Sammy Villa MD [address] [place] [address] [address] [place] [address] Assigned Neuroscience Provider 10/01/24 documented as of this encounter
--- OUTSIDE RECORDS SUMMARY | 2024-10-04 10:50 | XMS_ITS | Encounter Summary ---
Author Organization [facility] Address [address] [place] [address] Care Team Providers Care Manager Media Name Role Phone Daniel Plaza MD Primary Care Provider Daniel Plaza MD Unavailable Daniel Plaza MD Unavailable Stan Barnes MD Unavailable [phone] Herb Herman MD Primary Care Provider Herb Herman MD Unavailable Stan Barnes MD Unavailable [phone] Trent Qureshi MD Unavailable [phone] Sammy Villa MD Unavailable Encounter Details Date Type Department Care Team (Late st Contact Info) Description 11/21/2001 Abstract M [facility] [address] [address] Daniel Plaza MD [address] [phone] Social History Tobacco Use Types Packs/Day Years Used Date Smoking Tobacco: Never Assessed Comments No Sex and Gender Information Value Date Recorded Sex Assigned at Female 01/16/2019 8:38 AM CDT Legal 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 Gender Identity Female 01/16/2019 8:38 AM CDT Sexual Orientation Choose not to disclose 2021 11:32 AM BANK OPERATIONS OFFICER documented as of this encounter Plan of Treatment Upcoming Encounters Date Type Department Care Team (Late st Contact Info) Description 10/08/2024 3:30 PM CDT Office Visit [facility] [address] [place] [address] [place] [address] [place] [address] documented as of this encounter Visit Diagnoses Not on filedocumented in this encounter Care Teams Manager Media Relationship Specialty Start Date End Date Daniel Plaza MD [address] [place] [phone] PCP - General 06/29/10 12/23/20 Daniel Plaza MD [address] [place] [phone] PCP - Assigned PCP 02/05/08 06/13/18 [place] [address] [place] [address] PCP - General Family Medicine 12/24/20 Daniel Plaza MD [address] [place] [phone] Assigned PCP 01/13/12 01/03/21 tSan Barnes MD [address] [place] [address] Assigned Surgical Provider 02/01/20 07/19/20 [place] [address] [place] [address] Assigned PCP 01/04/21 Stan Barnes MD [address] [place] [address] [phone] Assigned Surgical Provider 08/30/21 08/31/23 Trent Qureshi MD [facility] [address] [place] [address] Orthopaedic Surgery 09/16/21 Sammy Villa MD [address] [place] [address] [phone] Assigned Neuroscience Provider 10/01/24 documented as of this encounter
--- OUTSIDE RECORDS SUMMARY | 2024-10-04 10:50 | XMS_ITS | Encounter Summary ---
Author Organization [place] Address [address] [place] [address] Care Team Providers Care Supervisor Rod Placing Name Role Phone Daniel Plaza MD Primary Care Provider [phone] Daniel Plaza MD Unavailable [phone] Daniel Plaza MD Unavailable Stan Barnes MD Unavailable [phone] Herb Herman MD Primary Care Provider Herb Herman MD Unavailable Stan Barnes MD Unavailable [phone] Trent Stratton MD Unavailable [phone] Sammy Villa MD Unavailable Encounter Details Date Type Department Care Team (Late st Contact Info) Description 03/01/2003 [facility] [address] [address] Daniel Plaza MD [address] [phone] OP REPT (Primary Dx) Social History Tobacco Use Types Packs/Day Years Used Date Smoking Tobacco: Never Passive Smoke Exposure: Never Smokeless Tobacco: Never Alcohol Use Standard Drinks/Week Comments Never 0 (1 standard drink = 0.6 oz pur e alcohol) Comments No Sex and Gender Information Value Date Recorded Sex Assigned at Female 01/16/2019 8:38 AM CDT Legal Sex Female 3:11 AM STUDENT NURSE Gender Identity Female 01/16/2019 8:38 AM CDT Sexual Orientation Choose not to disclose 2021 11:32 AM STUDENT NURSE 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 file documented as of this encounter Progress Notes * 03/01/2003 11:59 PM [id number] 00:00 Operative Report-[facility] TRENT STRATTON () [Entered: 00:00 Transcr iption ([facility])] 1st ASS'T: Alexander Gamble CST 2nd ASS'T: PREOPERATIVE DIAGNOSIS:Right knee deg enerative [...] STRATTON MD D: 06:24 MT: sb Document: [id number] [place], [place] Name: MICHAEL LAMAR OPERATIVE REPORT Page 2 of 2 LCN: 57 DSC: [place], [place] Name: MICHAEL LAMAR MR#: : Procedure Date: -98 1945 03/01/2003 Surgeon: TRENT STRATTON MD OPERATIVE REPORT Page 1 of 2 Electronically filed by Hu Porter 03/06/2003 10:43 AM documented in this encounter Plan of Treatment Upcoming Encounters Date Type Department Care Team (Late st Contact Info) Description 10/08/2024 3:30 PM CDT Office Visit [address] [phone] Herb Herman MD [address] [place] [address] documented as of this encounter Visit Diagnoses Diagnosis OP REPT- Primary documented in this encounter Care Teams Supervisor Rod Placing Relationship Specialty Start Date End Date Daniel Plaza MD [address] [place] [phone] PCP - General 06/29/10 12/23/20 Daniel Plaza MD [address] [place] [phone] PCP - Assigned PCP 02/05/08 06/13/18 [place] [address] [place] [address] PCP - General Family Medicine 12/24/20 Daniel Plaza MD [address] [place] [phone] Assigned PCP 01/13/12 01/03/21 Stan Barnes MD [address] [place] [address] Assigned Surgical Provider 02/01/20 07/19/20 [place] [address] [place] [address] Assigned PCP 01/04/21 Stan Barnes MD 909 [place] [address] Assigned Surgical Provider 08/30/21 08/31/23 Trent Stratton MD [facility] [address] [phone] Orthopaedic Surgery 09/16/21 Sammy Villa MD [address] [place] [address] Assigned Neuroscience Provider 10/01/24 documented as of this encounter
--- OUTSIDE RECORDS SUMMARY | 2024-10-04 10:50 | XMS_ITS | Encounter Summary ---
Author Organization [place] Address [address] [place] [address] Care Team Providers Care Sales And Marketing Representative Name Role Phone Daniel Plaza MD Primary Care Provider Daniel Plaza MD Unavailable [phone] Daniel Plaza MD Unavailable [phone] Stan Barnes MD Unavailable [phone] Herb Herman MD Primary Care Provider [phone] Herb Herman MD Unavailable Stan Barnes MD Unavailable [phone] Trent Qureshi MD Unavailable [phone] Sammy Villa MD Unavailable [phone] Encounter Details Date Type Department Care Team (Late st Contact Info) Description 05/18/2007 [facility] Medical Advice [facility] [address] [address] Daniel Plaza MD [address] [phone] Social History Tobacco Use Types Packs/Day Years Used Date Smoking Tobacco: Never Alcohol Use Standard Drinks/Week Comments Yes 0 (1 standard drink = 0.6 oz pur e alcohol) social Comments No Sex and Gender Information Value Date Recorded Sex Assigned at Female 01/16/2019 8:38 AM CDT Legal Sex Female 3:11 AM VEGETABLE WORKER Gender Identity Female 01/16/2019 8:38 AM CDT Sexual Orientation Choose not to disclose 2021 11:32 AM VEGETABLE WORKER documented as of this encounter Plan of Treatment Upcoming Encounters Date Type Department Care Team (Late st Contact Info) Description 10/08/2024 3:30 PM CDT Office Visit [facility] [address] [place] [phone] [place] [address] [place] [address] documented as of this encounter Visit Diagnoses Not on filedocumented in this encounter Care Teams Sales And Marketing Representative Relationship Specialty Start Date End Date Daniel Plaza MD [address] [place] [phone] PCP - General 06/29/10 12/23/20 Daniel Plaza MD [address] [place] [address] PCP - Assigned PCP 02/05/08 06/13/18 [place] [address] [place] [address] PCP - General Family Medicine 12/24/20 Daniel Plaza MD [address] [place] [phone] Assigned PCP 01/13/12 01/03/21 Stan Barnes MD 909 [place] [address] Assigned Surgical Provider 02/01/20 07/19/20 [place] [address] [place] [address] Assigned PCP 01/04/21 Stan Barnes MD [address] [place] [address] Assigned Surgical Provider 08/30/21 08/31/23 Trent Qureshi MD [facility] [address] [place] [address] Orthopaedic Surgery 09/16/21 Sammy Villa MD [address] [place] [address] Assigned Neuroscience Provider 10/01/24 documented as of this encounter
--- OUTSIDE RECORDS SUMMARY | 2024-10-04 10:50 | XMS_ITS | Encounter Summary ---
Author Organization [facility] Address [address] [place] [address] Care Team Providers Care Disposal Plant Operator Name Role Phone Daniel Torres MD Primary Care Provider Daniel Torres MD Unavailable Daniel Torres MD Unavailable [phone] Stan Barnes MD Unavailable [phone] Herb Herman MD Primary Care Provider [phone] Herb Herman MD Unavailable Stan Barnes MD Unavailable [phone] Trent Qureshi MD Unavailable [phone] Sammy Villa MD Unavailable [phone] Encounter Details Date Type Department Care Team (Late st Contact Info) Description 09/08/2007 [facility] [address] [address] Daniel Torres MD [address] [address] DJD ; HYPERLIPIDEMIA Social History Tobacco Use Types Packs/Day Years Used Date Smoking Tobacco: Never Alcohol Use Standard Drinks/Week Comments Yes 0 (1 standard drink = 0.6 oz pur e alcohol) social Comments No Sex and Gender Information Value Date Recorded Sex Assigned at Female 01/16/2019 8:38 AM CDT Legal Sex Female 3:11 AM GRINDING SUPERVISOR Gender Identity Female 01/16/2019 8:38 AM CDT Sexual Orientation Choose not to disclose 2021 11:32 AM GRINDING SUPERVISOR documented as of this encounter Miscellaneous Notes * Telephone Encounter - Vero Carr - 09/08/2007 2:01 PM [facility] Original authorizing provider: Savanna VILLALOBOS would like a refill of the following medications: SIMVASTATIN 80 MG OR TABS [DANIEL TORRES M.D.] CELEBREX 200 MG OR CAPS [DANIEL TORRES M.D.] Preferred pharmacy: [facility] Comment: I have requested my medications for the past two days. I have not received a response. With the weekend coming it sometimes takes longer for the pharmacy to fill the prescription. Please advise documented in this encounter Plan of Treatment Upcoming Encounters Date Type Department Care Team (Late st Contact Info) Description 10/08/2024 3:30 PM CDT Office Visit [address] [address] [place] [address] [place] [address] documented as of this encounter Visit Diagnoses Diagnosis DJD Generalized osteoarthrosis, unspecified site HYPERLIPIDEMIA Other and unspecified hyperlipidemia documented in this encounter Care Teams Disposal Plant Operator Relationship Specialty Start Date End Date Daniel Torres MD [address] [place] [phone] PCP - General 06/29/10 12/23/20 Daniel Torres MD [address] [phone] PCP - Assigned PCP 02/05/08 06/13/18 [place] [address] [place] [address] PCP - General Family Medicine 12/24/20 Daniel Torres MD [address] [place] [phone] Assigned PCP 01/13/12 01/03/21 Stan Barnes MD [address] [place] [address] Assigned Surgical Provider 02/01/20 07/19/20 [place] [address] [place] [address] Assigned PCP 01/04/21 Stan Barnes MD [address] [place] [address] Assigned Surgical Provider 08/30/21 08/31/23 Trent Qureshi MD [facility] [address] [address] Orthopaedic Surgery 09/16/21 Sammy Villa MD [address] [place] [address] 96 [place] [address] Assigned Neuroscience Provider 10/01/24 documented as of this encounter
--- OUTSIDE RECORDS SUMMARY | 2024-10-04 10:50 | XMS_ITS | Encounter Summary ---
Author Organization [facility] Address [address] [place] [address] Care Team Providers Care Commercial Loan Closer Name Role Phone Daniel Plaza MD Primary Care Provider Daniel Plaza MD Unavailable Daniel Plaza MD Unavailable Stan Barnes MD Unavailable [phone] Herb Herman MD Primary Care Provider Herb Herman MD Unavailable Stan Barnes MD Unavailable [phone] Trent Qureshi MD Unavailable [phone] Sammy Villa MD Unavailable [phone] Encounter Details Date Type Department Care Team (Late st Contact Info) Description 01/31/2006 [facility] [address] [address] Daniel Plaza MD [address] [phone] Social History Tobacco Use Types Packs/Day Years Used Date Smoking Tobacco: Never Alcohol Use Standard Drinks/Week Comments Yes 0 (1 standard drink = 0.6 oz pur e alcohol) social Comments No Sex and Gender Information Value Date Recorded Sex Assigned at Female 01/16/2019 8:38 AM CDT Legal Sex Female 3:11 AM CLAM TREADER Gender Identity Female 01/16/2019 8:38 AM CDT Sexual Orientation Choose not to disclose 2021 11:32 AM CLAM TREADER documented as of this encounter Plan of Treatment Upcoming Encounters Date Type Department Care Team (Late st Contact Info) Description 10/08/2024 3:30 PM CDT Office Visit [facility] [address] [place] [phone] [place] [address] [place] [address] documented as of this encounter Visit Diagnoses Not on filedocumented in this encounter Care Teams Commercial Loan Closer Relationship Specialty Start Date End Date Daniel Plaza MD [address] [place] [phone] PCP - General 06/29/10 12/23/20 Daniel Plaza MD [address] [place] [phone] PCP - Assigned PCP 02/05/08 06/13/18 [place] [address] [place] [address] PCP - General Family Medicine 12/24/20 Daniel Plaza MD [address] [place] [phone] Assigned PCP 01/13/12 01/03/21 Stan Barnes MD 909 [place] [address] Assigned Surgical Provider 02/01/20 07/19/20 [place] [address] [place] [address] Assigned PCP 01/04/21 Stan Barnes MD [address] [place] [address] Assigned Surgical Provider 08/30/21 08/31/23 Trent Qureshi MD [facility] [address] [place] [address] Orthopaedic Surgery 09/16/21 Sammy Villa MD [address] [place] [address] Assigned Neuroscience Provider 10/01/24 documented as of this encounter
--- OUTSIDE RECORDS SUMMARY | 2024-10-04 10:50 | XMS_ITS | Encounter Summary ---
Author Organization [facility] Address [address] [place] [address] Care Team Providers Care Cooking Show Host Name Role Phone Daniel Plaza MD Primary Care Provider Daniel Plaza MD Unavailable Daniel Plaza MD Unavailable Stan Barnes MD Unavailable [phone] Herb Herman MD Primary Care Provider Herb Herman MD Unavailable Stan Barnes MD Unavailable [phone] Trent Qureshi MD Unavailable [phone] Sammy Villa MD Unavailable Encounter Details Date Type Department Care Team (Latest Contact Info) Description 01/24/2016 [facility] [place] [facility] [address] [address] Daniel Plaza MD [address] [address] Spinal stenosis of lumbar region with [...] AM CDT Legal Sex Female 3:11 AM YARN POLISHING MACHINE OPERATOR Gender Identity Female 01/16/2019 8:38 AM CDT Sexual Orientation Choose not to disclose 2021 11:32 AM YARN POLISHING MACHINE OPERATOR documented as of this encounter Plan of Treatment Upcoming Encounters Date Type Department Care Team (Late st Contact Info) Description 10/08/2024 3:30 PM CDT Office Visit [facility] [address] [place] [phone] [place] [address] [place] [address] documented as of this encounter Visit Diagnoses Diagnosis Spinal stenosis of lumbar region with neurogenic claudication- Primary Spinal stenosis, lumbar region, with neurogenic claudication documented in this encounter Additional Health Concerns Assessment Noted Time PHQ-9 Depression Total Score: 0 12/23/19 16 7:14 AM CDT documented as of this encounter Care Teams Cooking Show Host Relationship Specialty Start Date End Date Daniel Plaza MD [address] [place] [address] PCP - General 06/29/10 12/23/20 Daniel Plaza MD [address] [place] [address] PCP - Assigned PCP 02/05/08 06/13/18 [place] [address] [place] [address] PCP - General Family Medicine 12/24/20 Daniel Plaza MD [address] [place] [phone] Assigned PCP 01/13/12 01/03/21 Stan Barnes MD [address] [place] [address] Assigned Surgical Provider 02/01/20 07/19/20 [place] [address] [place] [address] Assigned PCP 01/04/21 Stan Barnes MD [address] [place] [address] Assigned Surgical Provider 08/30/21 08/31/23 Trent Qureshi MD [facility] [address] [place] [address] Orthopaedic Surgery 09/16/21 Sammy Villa MD [address] [place] [address] 96 [place] [address] Assigned Neuroscience Provider 10/01/24 documented as of this encounter
--- OUTSIDE RECORDS SUMMARY | 2024-10-04 10:50 | XMS_ITS | Encounter Summary ---
Author Organization [facility] Address [address] [place] [address] Care Team Providers Care Safety Instructor Name Role Phone Daniel Plaza MD Primary Care Provider Daniel Plaza MD Unavailable [phone] Daniel Plaza MD Unavailable Stan Barnes MD Unavailable [phone] Herb Herman MD Primary Care Provider Herb Herman MD Unavailable Stan Barnes MD Unavailable [phone] Trent Qureshi MD Unavailable [phone] Sammy Villa MD Unavailable Encounter Details Date Type Department Care Team (Late st Contact Info) Description 11/28/2001 Abstract M [facility] [place] [facility] [address] [address] Daniel Plaza MD [address] [phone] Social History Tobacco Use Types Packs/Day Years Used Date Smoking Tobacco: Never Assessed Comments No Sex and Gender Information Value Date Recorded Sex Assigned at Female 01/16/2019 8:38 AM CDT Legal Sex Female 3:11 AM JUICE TESTER Gender Identity Female 01/16/2019 8:38 AM CDT Sexual Orientation Choose not to disclose 2021 11:32 AM JUICE TESTER documented as of this encounter Plan of Treatment Upcoming Encounters Date Type Department Care Team (Late st Contact Info) Description 10/08/2024 3:30 PM CDT Office Visit [facility] [address] [place] [address] [place] [address] [place] [address] documented as of this encounter Visit Diagnoses Not on filedocumented in this encounter Care Teams Safety Instructor Relationship Specialty Start Date End Date Daniel Plaza MD [address] [place] [phone] PCP - General 06/29/10 12/23/20 Daniel Plaza MD [address] [place] [phone] PCP - Assigned PCP 02/05/08 06/13/18 [place] [address] [place] [address] PCP - General Family Medicine 12/24/20 Daniel Plaza MD [address] [place] [phone] Assigned PCP 01/13/12 01/03/21 Stan Barnes MD [address] [place] [address] Assigned Surgical Provider 02/01/20 07/19/20 [place] [address] [place] [address] Assigned PCP 01/04/21 Stan Barnes MD [address] [place] [address] 194585 Assigned Surgical Provider 08/30/21 08/31/23 Trent Qureshi MD [facility] [address] [place] [address] Orthopaedic Surgery 09/16/21 Sammy Villa MD [address] [place] [address] 939195 Assigned Neuroscience Provider 10/01/24 documented as of this encounter
--- OUTSIDE RECORDS SUMMARY | 2024-10-04 10:50 | XMS_ITS | Encounter Summary ---
Author Organization [facility] Address [address] [place] [address] Care Team Providers Care Director Of Human Resources Name Role Phone Daniel Plaza MD Primary Care Provider Daniel Plaza MD Unavailable [phone] Daniel Plaza MD Unavailable [phone] Stan Barnes MD Unavailable Herb Herman MD Primary Care Provider Herb Herman MD Unavailable Stan Barnes MD Unavailable [phone] Trent Qureshi MD Unavailable [phone] Sammy Villa MD Unavailable [phone] Encounter Details Date Type Department Care Team (Late st Contact Info) Description 03/01/2011 [facility] [address] [address] Rodolfo Cline Social History Tobacco Use Types Packs/Day Years Used Date Smoking Tobacco: Never Alcohol Use Standard Drinks/Week Comments No 0 (1 standard drink = 0.6 oz pur e alcohol) Comments No Sex and Gender Information Value Date Recorded Sex Assigned at Female 01/16/2019 8:38 AM CDT Legal Sex Female 3:11 AM DELIVERY ROUTE DRIVER Gender Identity Female 01/16/2019 8:38 AM CDT Sexual Orientation Choose not to disclose 2021 11:32 AM DELIVERY ROUTE DRIVER documented as of this encounter Plan of Treatment Upcoming Encounters Date Type Department Care Team (Late st Contact Info) Description 10/08/2024 3:30 PM CDT Office Visit [facility] [address] [place] [address] [place] [address] [place] [address] documented as of this encounter Visit Diagnoses Not on filedocumented in this encounter Care Teams Director Of Human Resources Relationship Specialty Start Date End Date Daniel Plaza MD [address] [place] [phone] PCP - General 06/29/10 12/23/20 Daniel Plzaa MD [address] [place] [phone] PCP - Assigned PCP 02/05/08 06/13/18 [place] [address] [place] [address] PCP - General Family Medicine 12/24/20 Daniel Plaza MD [address] [place] [phone] Assigned PCP 01/13/12 01/03/21 Stan Barnes MD 9 [place] [address] Assigned Surgical Provider 02/01/20 07/19/20 [place] [address] [place] [address] Assigned PCP 01/04/21 Stan Barnes MD [address] [place] [address] 358095 Assigned Surgical Provider 08/30/21 08/31/23 Trent Qureshi MD [facility] [address] [place] [address] 875025 Orthopaedic Surgery 09/16/21 Sammy Villa MD 420 [facility] 96 [place], [place] 981155 Assigned Neuroscience Provider 10/01/24 documented as of this encounter
[2024-10-04 10:51] LABS: Potassium* 4.9 mmol/L (3.6-5.1)
--- OUTSIDE RECORDS SUMMARY | 2024-10-04 10:51 | XMS_ITS | Encounter Summary ---
Author Organization [place] Address [address] [place] [address]. [place] [address] Care Team Providers Care Embossing Toolsetter Name Role Phone Herb Herman MD Primary Care Provider Herb Herman MD Unavailable Stan Barnes MD Unavailable [phone] Trent Qureshi MD Unavailable [phone] Sammy Villa MD Unavailable Encounter Details Date Type Department Care Team (Late st Contact Info) Description 05/09/2023 MyC Medical Advice [facility] [address] [address] Stan Barnes MD [address] [place] [address] Social History Tobacco Use Types Packs/Day [...] How often do you attend chur or mandaeism services? More than 4 times per year 06/08/2021 Do you belong to any clubs o r organizations such as confucianism groups, unions, fraternal or athletic groups, or [...] Answer Date Recorded PHQ-2 Score 0 05/02/2023 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 file documented as of this encounter Plan of Treatment Upcoming Encounters Date Type Department Care Team (Late st Contact Info) Description 10/08/2024 3:30 PM CDT Office Visit [address] [address] [place] [id number] [place] [address] documented as of this encounter Visit Diagnoses Not on filedocumented in this encounter Additional Health Concerns Assessment Noted Time PHQ-9 Depression Total Score: 0 05/02/19 24 10:52 AM CUFF MAKER documented as of this encounter Care Teams Embossing Toolsetter Relationship Specialty Start [place] Herman [place] [id number] [place] [address] [id number] PCP - General Family Medicine 12/24/20 [place] [address] [place] [address] Assigned PCP 01/04/21 Stan Barnes MD [address] [place] [address] [id number] Assigned Surgical Provider 08/30/21 08/31/23 Trent Qureshi MD [facility] [address] [place] [address] 600885 Orthopaedic Surgery 09/16/21 Sammy Villa MD 420 [facility] 96 [place], [place] [address] Assigned Neuroscience Provider 10/01/24 documented as of this encounter
--- OUTSIDE RECORDS SUMMARY | 2024-10-04 10:51 | XMS_ITS | Encounter Summary ---
Author Organization [place] Address [address] [place] [address] Care Team Providers Care Inspector Semiconductor Wafer Name Role Phone Herb Herman MD Primary Care Provider Herb Herman MD Unavailable Stan Barnes MD Unavailable [phone] Trent Qureshi MD Unavailable [phone] Sammy Villa MD Unavailable [phone] Encounter Details Date Type Department Care Team (Late st Contact Info) Description 07/23/2021 MyC Medical Advice [address] [address] Brooke Barnes Social History Tobacco [...] How often do you attend chur or yarsani services? More than 4 times per year 06/08/2021 Do you belong to any clubs o r organizations such as sabianist groups, unions, fraternal or athletic groups, or [...] Answer Date Recorded PHQ-2 Score 0 06/24/2021 [facility] ional [facility] - Occupational Stress Questionnaire Answer Date Recorded [...] AM CDT Legal Sex Female 3:11 AM GAME TESTER Gender Identity Female 01/16/2019 8:38 AM CDT Sexual Orientation Choose not to disclose 2021 11:32 AM GAME TESTER Occupation Industry Job Start Date Job End [...] Description 10/08/2024 3:30 PM CDT Office Visit [facility] [address] [place] [address] [place] [address] [place] [address] documented as of this encounter Visit Diagnoses Not on filedocumented in this encounter Additional Health Concerns Assessment Noted Time PHQ-9 Depression Total Score: 0 06/10/19 22 7:01 AM GAME TESTER documented as of this encounter Care Teams Inspector Semiconductor Wafer Relationship Specialty [place] [address] [place] [address] PCP - General Family Medicine 12/24/20 [place] [address] [place] [address] Assigned PCP 01/04/21 Stan Barnes MD 909 [place], [place] 519165 Assigned Surgical Provider 08/30/21 08/31/23 Trent Qureshi MD [facility] [address] [place] [address] 877865 Orthopaedic Surgery 09/16/21 Sammy Villa MD 420 [facility] 96 [place], [place] 644[address] Assigned Neuroscience Provider 10/01/24 documented as of this encounter
--- OUTSIDE RECORDS SUMMARY | 2024-10-04 10:51 | XMS_ITS | Encounter Summary ---
Author Organization [place] Address [facility] [place] [address] Care Team Providers Care Rehab Director Name Role Phone Herb Herman MD Primary Care Provider Herb Herman MD Unavailable Stan Barnes MD Unavailable [phone] Trent Qureshi MD Unavailable [phone] Sammy Villa MD Unavailable [phone] Encounter Details Date Type Department Care Team (Late st Contact Info) Description 08/04/2021 MyC Medical Advice [facility] [address] [place] [address] [place] [address] [place] [address] Social History Tobacco Use Types [...] often do you attend chur ch or lutheran services? More than 4 times per year 06/08/2021 Do you belong to any clubs o r organizations such as christianity groups, unions, fraternal or athletic groups, or [...] Answer Date Recorded PHQ-2 Score 0 06/24/2021 [facility] of Occupat ional Health - Occupational [...] place to sleep or slept in a fpc (including now)? No 06/08/2021 Comments No Sex and Gender Information Value Date Recorded Sex Assigned at Female 01/16/2019 8:38 AM CDT Legal Sex Female 3:11 AM SUPERVISOR SCREEN PRINTING Gender Identity Female 01/16/2019 8:38 AM CDT Sexual Orientation Choose not to disclose 2021 11:32 AM SUPERVISOR SCREEN PRINTING Occupation Industry Job Start Date Job End [...] Description 10/08/2024 3:30 PM CDT Office Visit [facility] [address] [place] [address] [place] [address] [place] [address] documented as of this encounter Visit Diagnoses Not on filedocumented in this encounter Additional Health Concerns Assessment Noted Time PHQ-9 Depression Total Score: 0 06/10/19 22 7:01 AM SUPERVISOR SCREEN PRINTING documented as of this encounter Care Teams Rehab Director Relationship Specialty [place] [address] [place] [address] PCP - General Family Medicine 12/24/20 [place] [address] [place] [address] Assigned PCP 01/04/21 Stan Barnes MD [address] [place] [address] [id number] Assigned Surgical Provider 08/30/21 08/31/23 Trent Qureshi MD [facility] [address] [place] [address] Orthopaedic Surgery 09/16/21 Sammy Villa MD [address] [place] [address] 96 [place], [place] 407995 Assigned Neuroscience Provider 10/01/24 documented as of this encounter
--- OUTSIDE RECORDS SUMMARY | 2024-10-04 10:51 | XMS_ITS | Encounter Summary ---
Author Organization [place] Address [address] [place] [address]. [place] [address] Care Team Providers Care Cartridge Feeder Name Role Phone Herb Herman MD Primary Care Provider [phone] Herb Herman MD Unavailable Stan Barnes MD Unavailable + [phone] Trent Qureshi MD Unavailable [phone] Sammy Villa MD Unavailable [phone] Encounter Details Date Type Department Care Team (Late st Contact Info) Description 08/10/2021 [facility] Medical Adv[facility] [address] 4[address] [place] [address] Rodolfo Cline Social History Tobacco Use Types [...] week 06/08/2021 How often do you attend [facility] or amish services? More than 4 times [...] Answer Date Recorded PHQ-2 Score 0 06/24/2021 [facility]at ional [facility] - Occupational Stress Questionnaire Answer [...] place to sleep or slept in a senior care (including now)? No 06/08/2021 Comments No Sex and Gender Information Value Date Recorded Sex Assigned at Female 01/16/2019 8:38 AM CDT Legal Sex Female 3:11 AM GAS TURBINE MECHANIC Gender Identity Female 01/16/2019 8:38 AM CDT Sexual Orientation Choose not to disclose 2021 11:32 AM GAS TURBINE MECHANIC Occupation Industry Job Start Date Job End [...] 10/08/2024 3:30 PM CDT Office Visit [facility] [address] [place] [address] [place] [address] [place] [address] documented as of this encounter Visit Diagnoses Not on filedocumented in this encounter Additional Health Concerns Assessment Noted Time PHQ-9 Depression Total Score: 0 06/10/19 22 7:01 AM GAS TURBINE MECHANIC documented as of this encounter Care Teams Cartridge Feeder Relationship Specialty [place] [address] [place], [place] [id number] PCP - General Family Medicine 12/24/20 [place] [address] [place] [address] Assigned PCP 01/04/21 Stan Barnes MD [address] [place] [address] 030275 Assigned Surgical Provider 08/30/21 08/31/23 Trent Qureshi MD [facility] [address] [place] [address] 928855 Orthopaedic Surgery 09/16/21 Sammy Villa MD 420 [facility] 96 [place] [address] Assigned Neuroscience Provider 10/01/24 documented as of this encounter
--- OUTSIDE RECORDS SUMMARY | 2024-10-04 10:51 | XMS_ITS | Encounter Summary ---
Author Organization [place] Address [address] [place] [address] Care Team Providers Care Photographic Laboratory Technician Name Role Phone Daniel Plaza MD Primary Care Provider Daniel Plaza MD Unavailable Daniel Plaza MD Unavailable Stan Barnes MD Unavailable [phone] Herb Herman MD Primary Care Provider [phone] Herb Herman MD Unavailable Stan Barnes MD Unavailable [phone] Trent Qureshi MD Unavailable [phone] Sammy Villa MD Unavailable [phone] Reason for Visit * Reason Onset Date Comments Sinus Problem 04/06/2017 Encounter Details Date Type Department Care Team (Late st Contact Info) Description 04/06/[address] [facility] [address] [address] Daniel Plaza MD [address] [address] Sinus Problem Social History Tobacco Use Types Packs/Day Years Used Date Smoking Tobacco: Never Smokeless Tobacco: Never Alcohol Use Standard Drinks/Week Comments No 0 (1 standard drink = 0.6 oz pur e alcohol) Comments No Sex and Gender Information Value Date Recorded Sex Assigned at Female 01/16/2019 8:38 AM CDT Legal Sex Female 3:11 AM BRICK MASON Gender Identity Female 01/16/2019 8:38 AM CDT Sexual Orientation Choose not to disclose 2021 11:32 AM BRICK MASON documented as of this encounter Plan of Treatment Upcoming Encounters Date Type Department Care Team (Late st Contact Info) Description 10/08/2024 3:30 PM CDT Office Visit [facility] [address] [place] [address] [place] [address] [place] [address] documented as of this encounter Visit Diagnoses Diagnosis Acute sinusitis with symptoms > 10 days- Primary Acute sinusitis, unspecified documented in this encounter Additional Health Concerns Assessment Noted Time PHQ-9 Depression Total Score: 0 12/23/19 16 7:14 AM CDT documented as of this encounter Care Teams Photographic Laboratory Technician Relationship Specialty Start Date End Date Daniel Plaza MD [address] [place] [address] PCP - General 06/29/10 12/23/20 Daniel Plaza MD [address] [place] [address] PCP - Assigned PCP 02/05/08 06/13/18 Herb Herman [place] [address] [place] [address] PCP - General Family Medicine 12/24/20 Daniel Plaza MD [address] [place] [phone] Assigned PCP 01/13/12 01/03/21 Stan Barnes MD [address] [place] [address] Assigned Surgical Provider 02/01/20 07/19/20 [place] [address] [place] [address] Assigned PCP 01/04/21 Stan Barnes MD [address] [place] [address] Assigned Surgical Provider 08/30/21 08/31/23 Trent Qureshi MD [facility] [address] [place] [address] Orthopaedic Surgery 09/16/21 Sammy Villa MD [address] [place] [address] 96 [place] [address] Assigned Neuroscience Provider 10/01/24 documented as of this encounter
--- OUTSIDE RECORDS SUMMARY | 2024-10-04 10:51 | XMS_ITS | Encounter Summary ---
Author Organization [place] Address [address] [place] [address] Care Team Providers Care Production Recovery Operator Name Role Phone Herb Herman MD Primary Care Provider Herb Herman MD Unavailable Stan Barnes MD Unavailable + [phone] Trent Qureshi MD Unavailable [phone] Sammy Villa MD Unavailable [phone] Encounter Details Date Type Department Care Team (Late st Contact Info) Description 06/27/2023 MyC Medical Advice [address] [address] Soraya Hutchinsno CMA Social History Tobacco Use Types Packs/Day [...] week 06/08/2021 How often do you attend [facility] [place] or adventist services? 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 file documented as of this encounter Plan of Treatment Upcoming Encounters Date Type Department Care Team (Late st Contact Info) Description 10/08/2024 3:30 PM CDT Office Visit [address] [address] [place] [address] [place] [address] documented as of this encounter Visit Diagnoses Not on filedocumented in this encounter Additional Health Concerns Assessment Noted Time PHQ-9 Depression Total Score: 0 05/02/19 24 10:52 AM BUSINESS MANAGER documented as of this encounter Care Teams Production Recovery Operator Relationship Specialty [place] [address] [place] [address] PCP - General Family Medicine 12/24/20 [place] [address] [place] [address] Assigned PCP 01/04/21 Stan Barnes MD [address] [place] [address] Assigned Surgical Provider 08/30/21 08/31/23 Trent Qureshi MD [facility] [address] [place] [address] Orthopaedic Surgery 09/16/21 Sammy Villa MD [address] [place] [address] 96 [place] [address] Assigned Neuroscience Provider 10/01/24 documented as of this encounter
--- OUTSIDE RECORDS SUMMARY | 2024-10-04 10:51 | XMS_ITS | Encounter Summary ---
Author Organization [place] Address [address] [place] [address] Care Team Providers Care Professional Employer Consultant Name Role Phone Herb Herman MD Primary Care Provider [phone] Herb Heramn MD Unavailable Trent Qureshi MD Unavailable [phone] Encounter Details Date Type Department Care Team (Late st Contact Info) Description 09/10/2024 Medical Correspondence [facility] Health Information Management [address] [facility] [address] [place] [address] Scan, Non-Provider Social History Tobacco Use Types [...] often do you attend chur ch or pentecostal services? 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 file documented as of this encounter Plan of Treatment Upcoming Encounters Date Type Department Care Team (Late st Contact Info) Description 10/08/2024 3:30 PM CDT Office Visit [facility] [address] [place] [address] [place] [address] [place] [address] documented as of this encounter Visit Diagnoses Not on filedocumented in this encounter Additional Health Concerns Assessment Noted Time PHQ-9 Depression Total Score: 0 05/02/19 25 10:13 AM POWER CHECKER documented as of this encounter Care Teams Professional Employer Consultant Relationship Specialty [place] [address] [place] [address] PCP - General Family Medicine 12/24/20 [place] [address] [place] [address] Assigned PCP 01/04/21 Trent Qureshi MD [facility] [address] [place] [address] Orthopaedic Surgery 09/16/21 documented as of this encounter
--- OUTSIDE RECORDS SUMMARY | 2024-10-04 10:51 | XMS_ITS | Encounter Summary ---
Author Organization [place] Address [address] [place] [address] Care Team Providers Care Hoop Coiler Name Role Phone Herb Herman MD Primary Care Provider [phone] Herb Herman MD Unavailable Trent Qureshi MD Unavailable [phone] Reason for Referral * Consultation (Routine: Next available opening) - Closed Specialty Diagnoses / Procedures Referred By Contac t Referred To Contact Orthopedics Diagnoses Low back pain Douglas Hernandez MD [facility] [address] [facility] [address] [place] [address] Phone: tel: fax: Referral ID Status Reason Start Date Expiration Date Visits Re quested Visits Authorized [id number] Closed 09/11/2024 09/11/2025 1 1 Scheduling Instructions Evaluate severe lumbar spinal stenosis Question Answer Consult Type: Other Type: Per Protocol My Clinical Question Is: low back pain Scheduling Instructions: Our [facility] Orthopedic Spine Nurse team will contact you via phone, text, email or MyChart within 2 business days to help you schedule your appointment, or you may contact the Spine Nurse Team at . Comments [facility] External Fax Details Provider: Douglas Hernandez Affiliated with: [facility] Clinic Location: [place] Phone number: [phone] Fax number: [phone] [place] Patient: No Medical records received with referral? No, Referral only Our [facility] Orthopedic Spine Nurse team will contact you via phone, text, email or MyChart within 2 business days to help you schedule your appointment, or you may contact the Spine Nurse Team at . Encounter Details Date Type Department Care Team (Latest Contact Info) Description 09/11/2024 Transcribe Orders GENERIC EXTERNAL DATA DEPARTMENT Douglas Hernandez MD [facility] [address] [place] [address] [place] [address] Low back pain (Primary Dx) Social History [...] Answer Date Recorded PHQ-2 Score 0 05/02/2024 [facility] of Occupat ional Health - Occupational Stress [...] AM CDT Legal Sex Female 3:11 AM ASSOCIATE FACULTY Gender Identity Female 01/16/2019 8:38 AM CDT Sexual Orientation Choose not to disclose 2021 11:32 AM ASSOCIATE FACULTY 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 [address] [place] [address] [place] [address] [place] [address] Scheduled Referrals Name Type Priority Associated Diagnoses Orde r Schedule Orthopedic Spine Nurse Referral Referral Routine: Next available opening Low back pain Expected: 09/11/2024 (Approximate), Expires: 09/11/2025 documented as of this encounter Visit Diagnoses Diagnosis Low back pain- Primary Lumbago documented in this encounter Additional Health Concerns Assessment Noted Time PHQ-9 Depression Total Score: 0 05/02/19 25 10:13 AM ASSOCIATE FACULTY documented as of this encounter Care Teams Hoop Coiler Relationship Specialty [place] [address] [place] [address] PCP - General Family Medicine 12/24/20 [place] [address] [place] [address] Assigned PCP 01/04/21 Trent Qureshi MD [facility] [address] [place] [address] Orthopaedic Surgery 09/16/21 documented as of this encounter
--- OUTSIDE RECORDS SUMMARY | 2024-10-04 10:51 | XMS_ITS | Encounter Summary ---
Author Organization [place] Address [facility] [place] [address] Care Team Providers Care E Mail System Administrator Name Role Phone Herb Herman MD Primary Care Provider Herb Herman MD Unavailable Stan Barnes MD Unavailable [phone] Trent Qureshi MD Unavailable [phone] Sammy Villa MD Unavailable Encounter Details Date Type Department Care Team (Late st Contact Info) Description 07/16/2021 MyC Medical Advice [facility] [address] [place] [address] [place] [address] [place] [address] Social History Tobacco Use Types [...] often do you attend chur ch or sabianist services? More than 4 times per year [...] Answer Date Recorded PHQ-2 Score 0 06/24/2021 [facility] of Occupat ional Health [...] AM CDT Legal Sex Female 3:11 AM LIFE SCIENCE RESEARCH ASSISTANT Gender Identity Female 01/16/2019 8:38 AM CDT Sexual Orientation Choose not to disclose 2021 11:32 AM LIFE SCIENCE RESEARCH ASSISTANT Occupation Industry Job Start Date Job End [...] Description 10/08/2024 3:30 PM CDT Office Visit [address] [address] [place]b Herman [place] [id number] [place] [address] documented as of this encounter Visit Diagnoses Not on filedocumented in this encounter Additional Health Concerns Assessment Noted Time PHQ-9 Depression Total Score: 0 06/10/19 22 7:01 AM LIFE SCIENCE RESEARCH ASSISTANT documented as of this encounter Care Teams E Mail System Administrator Relationship Specialty [place] [address] [place] [address] PCP - General Family Medicine 12/24/20 [place] [address] [place] [address] Assigned PCP 01/04/21 Stan Barnes MD [address] [place] [address] Assigned Surgical Provider 08/30/21 08/31/23 Trent Qureshi MD [facility] [address] [place] [address] Orthopaedic Surgery 09/16/21 Sammy Villa MD [address] [facility] 96 [place] [address] Assigned Neuroscience Provider 10/01/24 documented as of this encounter
--- OUTSIDE RECORDS SUMMARY | 2024-10-04 10:51 | XMS_ITS | Encounter Summary ---
Author Organization [place] Address [facility] [place] [address] Care Team Providers Care Senior Dot Net Developer Name Role Phone Herb Herman MD Primary Care Provider [phone] Herb Herman MD Unavailable Stan Barnes MD Unavailable [phone] Trent Qureshi MD Unavailable [phone] Sammy Villa MD Unavailable Reason for Visit * Reason Onset Date Comments MyChart Communication 07/14/2022 Encounter Details Date Type Department Care Team (Latest Contact Info) Description 07/14/2022 MyC Medical Advice [facility] [id number] [place] [phone] [place] [address] [place] [address] MyChart Communication Social History Tobacco [...] How often do you attend chur or judaism services? More than 4 times [...] Answer Date Recorded PHQ-2 Score 0 03/08/2022 [facility] - Occupational Stress Questionnaire Answer Date [...] place to sleep or slept in a residential (including now)? No 06/08/2021 Comments No Sex and Gender Information Value Date Recorded Sex Assigned at Female 01/16/2019 8:38 AM CDT Legal Sex Female 3:11 AM UNIT CONTROL CLERK Gender Identity Female 01/16/2019 8:38 AM CDT Sexual Orientation Choose not to disclose 2021 11:32 AM UNIT CONTROL CLERK Occupation Industry Job Start Date Job [...] Bueno RN - 07/14/2022 10:04 AM CDT Miew message sent to patient, reply requested. Virginia Bueno R.N. documented in this encounter Plan of Treatment Upcoming Encounters Date Type Department Care Team (Late st Contact Info) Description 10/08/2024 3:30 PM CDT Office Visit [facility] [address] [place] [address] [place] [address] [place] [address] documented as of this encounter Visit Diagnoses Not on filedocumented in this encounter Additional Health Concerns Assessment Noted Time PHQ-9 Depression Total Score: 0 03/08/20 10:26 AM UNIT CONTROL CLERK documented as of this encounter Care Teams Senior Dot Net Developer Relationship Specialty [place] [address] [place] [address] PCP - General Family Medicine 12/24/20 [place] [address] [place] [address] Assigned PCP 01/04/21 Stan Barnes MD [address] [place] [address] Assigned Surgical Provider 08/30/21 08/31/23 Trent Qureshi MD [facility] [address] [place] [address] Orthopaedic Surgery 09/16/21 Sammy Villa MD [address] [place] [address] Assigned Neuroscience Provider 10/01/24 documented as of this encounter
--- OUTSIDE RECORDS SUMMARY | 2024-10-04 10:51 | XMS_ITS | Encounter Summary ---
Author Organization [place] Address [address] [place] [address] Care Team Providers Care Finance Clerk Name Role Phone Herb Herman MD Primary Care Provider Herb Herman MD Unavailable Stan Barnes MD Unavailable + [phone] Trent Qureshi MD Unavailable [phone] Sammy Villa MD Unavailable [phone] Encounter Details Date Type Department Care Team (Late st Contact Info) Description 07/16/2022 [facility] [place] [address] [address] Diane Moreno RN Social History [...] How often do you attend chur or religion services? More than 4 times per year 06/08/2021 Do you belong to any clubs o r organizations such as religious groups, unions, fraternal or athletic groups, or [...] Answer Date Recorded PHQ-2 Score 0 03/08/2022 [facility] of Occupat ional [facility] - Occupational Stress Questionnaire Answer Date [...] place to sleep or slept in a penitentiary (including now)? No 06/08/2021 Comments No Sex and Gender Information Value Date Recorded Sex Assigned at Female 01/16/2019 8:38 AM CDT Legal Sex Female 3:11 AM IN SERVICE EDUCATOR Gender Identity Female 01/16/2019 8:38 AM CDT Sexual Orientation Choose not to disclose 2021 11:32 AM IN SERVICE EDUCATOR Occupation Industry Job Start Date Job End [...] Description 10/08/2024 3:30 PM CDT Office Visit [facility] [address] [place] [address] [place] [address] [place] [address] documented as of this encounter Visit Diagnoses Not on filedocumented in this encounter Additional Health Concerns Assessment Noted Time PHQ-9 Depression Total Score: 0 03/08/20 22 10:26 AM IN SERVICE EDUCATOR documented as of this encounter Care Teams Finance Clerk Relationship Specialty [place] [address] [place] [address] PCP - General Family Medicine 12/24/20 [place] [address] [place] [address] Assigned PCP 01/04/21 Stan Barnes MD [address] [place] [address] Assigned Surgical Provider 08/30/21 08/31/23 Trent Qureshi MD [facility] [address] [place] [address] Orthopaedic Surgery 09/16/21 Sammy Villa MD [address] [place] [address] Assigned Neuroscience Provider 10/01/24 documented as of this encounter
--- OUTSIDE RECORDS SUMMARY | 2024-10-04 10:51 | XMS_ITS | Encounter Summary ---
Author Organization [place] Address [address] [place] [address] Care Team Providers Care Doll Maker Name Role Phone Herb Herman MD Primary Care Provider Herb Herman MD Unavailable Stan Barnes MD Unavailable + [phone] Trent Qureshi MD Unavailable [phone] Sammy Villa MD Unavailable [phone] Encounter Details Date Type Department Care Team (Late st Contact Info) Description 04/18/2023 MyC Medical Advice [address] [address] Brooke Barnes Social History Tobacco [...] week 06/08/2021 How often do you attend [facility] or mandaen services? More than 4 times per year 06/08/2021 Do you belong to any clubs o r organizations such as yazidism groups, unions, fraternal or athletic groups, or [...] Answer Date Recorded PHQ-2 Score 0 08/02/2022 [facility]at ional Health - [...] in a detention (including now)? 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 file documented as of this encounter Plan of Treatment Upcoming Encounters Date Type Department Care Team (Late st Contact Info) Description 10/08/2024 3:30 PM CDT Office Visit [address] [address] Herb Herman MD [address] [place] [address] documented as of this encounter Visit Diagnoses Not on filedocumented in this encounter Additional Health Concerns Assessment Noted Time PHQ-9 Depression Total Score: 1 08/03/19 23 1:10 PM CDT documented as of this encounter Care Teams Doll Maker Relationship Specialty [place] [address] [place] [address] PCP - General Family Medicine 12/24/20 [place] [address] [place] [address] Assigned PCP 01/04/21 Stan Barnes MD [address] [place] [address] Assigned Surgical Provider 08/30/21 08/31/23 Trent Qureshi MD [facility] [address] [address] Orthopaedic Surgery 09/16/21 Sammy Villa MD [address] [place] [address] 96 [place] [address] Assigned Neuroscience Provider 10/01/24 documented as of this encounter
--- OUTSIDE RECORDS SUMMARY | 2024-10-04 10:51 | XMS_ITS | Encounter Summary ---
Author Organization [place] Address [address] [place] [address] Care Team Providers Care Burglar Alarm Superintendent Name Role Phone Daniel Plaza MD Primary Care Provider Daniel Plaza MD Unavailable [phone] Daniel Plaza MD Unavailable Stan Barnes MD Unavailable [phone] Herb Herman MD Primary Care Provider [phone] Herb Herman MD Unavailable Stan Barnes MD Unavailable [phone] Trent Qureshi MD Unavailable [phone] Sammy Villa MD Unavailable Encounter Details Date Type Department Care Team (Late st Contact Info) Description 04/28/2013 MyC Medical Advice [facility] [address] [address] Daniel Plaza MD [address] [phone] Social History Tobacco Use Types Packs/Day Years Used Date Smoking Tobacco: Never Smokeless Tobacco: Never Alcohol Use Standard Drinks/Week Comments No 0 (1 standard drink = 0.6 oz pur e alcohol) Comments No Sex and Gender Information Value Date Recorded Sex Assigned at Female 01/16/2019 8:38 AM CDT Legal Sex Female 3:11 AM BLACKSMITH HAMMER OPERATOR Gender Identity Female 01/16/2019 8:38 AM CDT Sexual Orientation Choose not to disclose 2021 11:32 AM BLACKSMITH HAMMER OPERATOR documented as of this encounter Plan of Treatment Upcoming Encounters Date Type Department Care Team (Late st Contact Info) Description 10/08/2024 3:30 PM CDT Office Visit [facility] [address] [place] [phone] [place] [id number] [place] [address] documented as of this encounter Visit Diagnoses Not on filedocumented in this encounter Care Teams Burglar Alarm Superintendent Relationship Specialty Start Date End Date Daniel Plaza MD [address] [place] [phone] PCP - General 06/29/10 12/23/20 Daniel Plaza MD [address] [place] [phone] PCP - Assigned PCP 02/05/08 06/13/18 [place] [address] [place] [address] PCP - General Family Medicine 12/24/20 Daniel Plaza MD [address] [place] [phone] Assigned PCP 01/13/12 01/03/21 Stan Barnes MD [address] [place] [address] Assigned Surgical Provider 02/01/20 07/19/20 [place] [address] [place] [address] Assigned PCP 01/04/21 Stan Barnes MD [address] [place] [address] Assigned Surgical Provider 08/30/21 08/31/23 Trent Qureshi MD [facility] [address] [place] [address] Orthopaedic Surgery 09/16/21 Sammy Villa MD [address] [place] [address] [address] [place] [address] Assigned Neuroscience Provider 10/01/24 documented as of this encounter
--- OUTSIDE RECORDS SUMMARY | 2024-10-04 10:51 | XMS_ITS | Encounter Summary ---
Author Organization [place] Address [address] [place] [address]. [place] [address] Care Team Providers Care Tying Machine Operator Name Role Phone Herb Herman MD Primary Care Provider Herb Herman MD Unavailable Stan Barnes MD Unavailable [phone] Trent Qureshi MD Unavailable [phone] Sammy Villa MD Unavailable [phone] Reason for Visit * Reason Onset Date Comments Medication Request 07/13/2021 Encounter Details Date Type Department Care Team (Late st Contact Info) Description 07/13/2021 MyC Medical Advice [facility] [address] [place] [phone] [place] [id number] [place] [address] Medication Request Social History Tobacco Use [...] Answer Date Recorded PHQ-2 Score 0 06/24/2021 [facility] Occupat ional Health [...] AM CDT Legal Sex Female 3:11 AM PICKLING DRUM OPERATOR Gender Identity Female 01/16/2019 8:38 AM CDT Sexual Orientation Choose not to disclose 2021 11:32 AM PICKLING DRUM OPERATOR Occupation Industry Job Start Date Job [...] PM CDT Office Visit [facility] [address] [place] [phone] [place] [address] [place] [address] documented as of this encounter Visit Diagnoses Diagnosis Other chronic pain- Primary documented in this encounter Additional Health Concerns Assessment Noted Time PHQ-9 Depression Total Score: 0 06/10/19 22 7:01 AM PICKLING DRUM OPERATOR documented as of this encounter Care Teams Tying Machine Operator Relationship Specialty [place] [address] [place] [address] PCP - General Family Medicine 12/24/20 [place] [address] [place] [address] Assigned PCP 01/04/21 Stan Barnes MD [address] [place] [address] Assigned Surgical Provider 08/30/21 08/31/23 Trent Qureshi MD [facility] [address] [place] [address] Orthopaedic Surgery 09/16/21 Sammy Villa MD [address] [place] [address] Assigned Neuroscience Provider 10/01/24 documented as of this encounter
--- OUTSIDE RECORDS SUMMARY | 2024-10-04 10:51 | XMS_ITS | Clinical Summary ---
Author Organization [place] Address [address] [place] [address] Care Team Providers Care Fruit And Vegetable Parer Name Role Phone Herb Herman MD Primary Care Provider [phone] Herb Herman MD Unavailable Trent Qureshi MD Unavailable [phone] [facility] Unavailable Allergies Active Allergy Reactions Criticality Noted Date [...] tablet 3 025 Active vitamin D2 (ERGOCALCIFEROL) 15482 units (1250 mcg) capsuleIndication s:Type 2 diabetes [...] (01/02/2016): Seen incidentally on CT done at [facility] Major 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 6 Spinal [...] to review. 03/01/2011 Full code 03/08/2011 Health Detention 12/15/2010 09/26/2023 Overview (07/17/2012): X DX V65.8 REPLACED WITH 10487 [facility] (07/17/2012) Major 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 11/05/2004 05/03/2023 Encounters Date Type Department Care Team Description 09/26/2024 10:15 AM CDT Radiology Injection Office Visit [facility] [address] [place] [phone] Sammy Villa MD Burton, Annie L, MD Lumbar radiculopathy (Primary Dx); Lumbar stenosis with neurogenic claudication 09/26/2024 Travel 09/23/2024 Refill [facility] [address] [place] [address] Herb Herman MD Medication Refill 09/20/2024 Telephone [facility] [address] [place] [address] 239777 Pain Management Program, [facility] Procedure (L3-4 or L4-5 Interlaminar ARTHUR) 09/19/2024 2:20 PM CDT Office Visit [facility] [address] [facility] [address] [place] [phone] Douglas Hernandez MD Helland, Logan C, MD Lumbar stenosis with neurogenic claudication (Primary Dx); Chronic bilateral low back pain with bilateral sciatica 09/19/2024 MyC Medical Advice [facility] [address] [place] [address], [address] [place] [address] Ana Larsen RN 09/19/2024 Travel 09/19/2024 PRE VISIT [facility] [place] [address] [facility] [address] [place] [phone] Sammy Villa MD Previsit 09/11/2024 Transcribe Orders GENERIC EXTERNAL DATA DEPARTMENT Douglas Hernandez MD Low back pain (Primary Dx) 09/10/2024 12:05 AM CDT Ancillary Procedure [facility] External Imaging [address] [place] [phone] Non-Fv Credentialed Provider, Radiology 09/10/2024 Ancillary Procedure [facility] [address] [place] [phone] Non-Fv Credentialed Provider, Radiology 09/10/2024 Medical Correspondence [facility] Information Management [address] [facility] [address] [place] [address] Scan, Non-Provider from Last 3 Months Immunizations [...] Brother 2 Alive Father Mother Paternal Grandfather [place] Sister Alive lashanda knee replace ments Son [...] week 06/08/2021 How often do you attend [facility] or sabianist services? 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 file Last Filed Vital Signs Vital Sign Reading Time Taken Comments Blood Pressure 142/76 09/26/2024 11:00 AM CDT Pulse 63 09/26/2024 11:00 AM CDT Temperature 36.4 C (97.6 F) 05/02/2024 11:00 AM FOOD SERVICE CLERK Respiratory Rate 20 05/02/2024 11:00 AM FOOD SERVICE CLERK Oxygen Saturation 97% 09/26/2024 11:00 AM CDT Inhaled Oxygen Concentration - - Weight 105.2 kg (232 lb) 09/19/2024 1:43 PM CDT Height 162.6 cm (5' 4) 09/19/2024 1:43 PM CDT Body Mass Index 39.82 09/19/2024 1:43 PM CDT Plan of Treatment Upcoming Encounters Date Type Department Care Team (Late st Contact Info) Description 10/08/2024 3:30 PM CDT Office Visit [address] [address] [place] [address] [place], [place] [phone] Health Maintenance Due Date Last Done Comments DEPRESSION ACTION PLAN 1945 URINALYSIS 10/18/1946 ZOSTER VACCINE (1 of 2) 10/18/1997 DTAP/TDAP/TD VACCINE (2 - Td or Tdap) 02/19/2020 02/18/2010 DEXA 07/21/2022 07/21/2017, 03/11, 07/27/2006, Additional history exists RSV VACCINE (1 - 1-dose 75+ series) 10/18/2022 HEMOGLOBIN 01/18/2023 01/18/2022, 1012/2021, 01/16/2022, Additional history exists DIABETIC FOOT EXAM 08/03/2023 08/02/2022, 0 07/13/2021, 06/25/2020, Additional history exists COVID-19 VACCINE ( season) 2023 03/08/2022, 07/13/2021, 02/11/2021, Additional history [...] (Cologuard) Discontinued Medical Devices Implanted Type Area Manager Night Device Identifier Shelf Expiration Date Model / Serial / Lot Imp Scr Zim 6.5x30mm Acet Cup Self Tap [id number] - [id number] Implanted:Qty : 1 on 09/21/2021 by Anderson George MD at [facility] Metallic Hardware/Anc hor Right: Hip [employer] 06/19/203165-5139-553- 30 / / [id number] Imp Scr Zim 6.5x30mm Acet Cup Self Tap [id number] - [id number] Implanted:Qty : 1 on 12/21/2021 by Anderson George MD at [facility] Metallic Hardware/Anc hor Left: Hip [employer] 06/19/203159-7868-788- 30 / / [id number] Imp Shell Biom G7 Acetab Pps Billy Hole 52mm Sz E [id number] - [id number] Implanted:Qty : 1 on 09/21/2021 by Anderson George MD at [facility] Total Joint Component/In sert Right: Hip [employer] 07/10/2031 [id number] / / [id number] Liner Actb G7 E 36mm Lngvt Hip Strl Lum Lf [id number] - [id number] Implanted:Qty : 1 on 09/21/2021 by Anderson George MD at [facility] Total Joint Component/In sert Right: Hip [employer] 12/16/[id number] / / [id number] Imp Stem Femoral Biom Echo Std Offset [id number] - [id number] Implanted:Qty : 1 on 09/21/2021 by Anderson George MD at [facility] Total Joint Component/In sert Right: Hip [employer] 01/16/2031 [id number] / / [id number] Head Fem -3mm Ofst 36mm Hip Actb Mdhemal Ty 1 Blx D [id number] - [id number] Implanted:Qty : 1 on 09/21/2021 by Anderson George MD at [facility] Total Joint Component/In sert Right: Hip [employer] 06/23/2031 [id number] / / [id number] Imp Shell Biom G7 Acetab Pps Billy Hole 52mm Sz E [id number] - [id number] Implanted:Qty : 1 on 12/21/2021 by Anderson George MD at [facility] Total Joint Component/In sert Left: Hip [employer] 10/30/2031 [id number] / / [id number] Imp Stem Femoral Biom Echo Std Offset [id number] - [id number] Implanted:Qty : 1 on 12/21/2021 by Anderson George MD at [facility] Total Joint Component/In sert Left: Hip [employer] 08/25/2031 [id number] / / [id number] Liner Actb G7 E 36mm Lngvt Hip Strl Lum Lf [id number] - [id number] Implanted:Qty : 1 on 12/21/2021 by Anderson George MD at [facility] Total Joint Component/In sert Left: Hip [employer] 08/30/2026 [id number] / / [id number] Head Fem -3mm Ofst 36mm Hip Actb Mdlr Ty 1 Blx D [id number] - [id number] Implanted:Qty : 1 on 12/21/2021 by Anderson George MD at [facility] Total Joint Component/In sert Left: Hip [employer] 06/30/2031 [id number] / / [id number] Procedures Procedure Name Priority Date/Time Associated Diagnosis Comments PAIN CAUDAL EPIDURAL INJECTION Routine 09/26/2024 10:40 AM CDT Lumbar radiculopathy XR EXTERNAL IMAGING SPINE Routine 09/10/2024 12:05 AM CDT XR EXTERNAL IMAGING SPINE Routine 09/10/2024 12:00 AM CDT TSH WITH FREE T4 REFLEX Add-On 05/02/2024 11:07 AM FOOD SERVICE CLERK Acquired hypothyroidism HEMOGLOBIN A1C Routine 05/02/2024 11:07 AM FOOD SERVICE CLERK Type 2 diabetes mellitus with diabetic neuropathy, [...] C FOOT EXAM Routine 04/27/2013 10:15 AM FOOD SERVICE CLERK Type 2 diabetes, HbA1C goal < 7% [...] from the original result were not included. [facility] - Procedure Note [...] the procedure. Diagnosis: Lumbar spondylosis; Lumbar radiculitis/radiculopathy Safety Net Maker: Daniel Otto MD Anesthesia: none Indications: Angela Lamar is [...] 7.1 MRI LUMBAR SPINE was done @ [facility] on 02/15/2024 and was reviewed - [...] in 2 weeks for post-procedure evaluation. DANIEL OTTO MD Pain Management Daniel Otto MD IMG PAIN MANAGEMENT ORDERABLES Final Result * XR External Imaging Spine (09/10/2024 12:05 AM CDT) Only the most recent of2 resultswithin the time period is included. Narrative Service Account, Ob Benny - 09/13/2024 12:24 PM CDT Images were obtained from an external facility. Click PACS Images hyperlink to view images. Textual results have been scanned into the media tab. Radiology Non-Fv Credentialed Provider IMG EXTER NAL IMAGING ORDERABLES Final Result * TSH with free T4 reflex (05/02/2024 11:07 AM FOOD SERVICE CLERK) TSH 1.54 0.30 - 4.20 uIU/mL 05/03/2024 11:22 AM FOOD SERVICE CLERK [facility] Blood BLOOD SPECIMEN / Unknown Venipuncture / Unknown 05/02/2024 11:07 AM FOOD SERVICE CLERK 05/02/2024 11:07 AM FOOD SERVICE CLERK Herb Herman MD LAB - BLOOD ORDERABLES Final Res ult Performing Organization Address City/[facility]/ZIP Co de Phone Number [facility] [address] [place] [address], [facility] * (ABNORMAL) HEMOGLOBIN A1C (05/02/2024 11:07 AM FOOD SERVICE CLERK) Estimated Average Glucose 157(H) <117 mg/dL 05/02/2024 11:12 AM FOOD SERVICE CLERK LABORATORY Hemoglobin A1C 7.1(H) 0.0 - 5.6 % 05/02/2024 11:12 AM [facility] Comment: Normal <5.7% Prediabetes 5.7-6.4% Diabetes 6.5% or higher Note: Adopted from ADA consensus guidelines. Blood BLOOD SPECIMEN / Unknown Venipuncture / Unknown 05/02/2024 11:07 AM FOOD SERVICE CLERK 05/02/2024 11:07 AM FOOD SERVICE CLERK Herb Herman MD LAB - BLOOD ORDERABLES Final Res ult Performing Organization Address City/[facility] Co de Phone Number LABORATORY [facility] [address] [facility] (no room number, 1st floor of clinic) [place] [address], [facility] * Albumin Random Urine Quantitative with Creat [...] 25.00 mg/g Cr 08/01/2023 8:05 PM CDT U LABORATORY Comment: Microalbuminuria is defined as an [...] control, and institution of therapy with an zesbgknzgnj-emfooadmsh-pllwes (TIFFANY) inhibitor (if the patient can tolerate it). Urine MID-STREAM URINE SPECIMEN / Unknown Non-blood Collection / Unknown 08/01/2023 9:56 AM CDT 08/01/2023 9:56 AM CDT Herb Herman MD LAB - URINE ORDERABLES Final Res ult Performing Organization Address City/[facility]/ZIP Co de Phone Number LABORATORY [facility] [place] [facility] [address] [facility], [address] * ALT (08/01/2023 9:51 AM CDT) Pathologist [facility] ALT 12 0 - 50 U/L 08/01/2023 5:5 4 PM CDT U LABORATORY Blood BLOOD SPECIMEN / Unknown Venipuncture / Unknown 08/01/2023 9:51 AM CDT 08/01/2023 9:51 AM CDT us Herb Herman MD LAB - BLOOD ORDERABLES Final Res ult LABORATORY [facility] [place] [facility] [address] [facility], [address] * (ABNORMAL) Basic metabolic panel (Ca, Cl, CO2, Creat, Gluc, K, Na, BUN) (08/01/2023 9:51 AM CDT) Sodium 139 135 - 145 mmol/L 08/01/2023 [...] BLOOD ORDERABLES Final Res ult UU LABORATORY [facility] [place] [facility] [address] [facility] [address] [facility], [address] [place] [address], [facility] * MA Screening Digital Bilateral (07/26/2023 11:38 [...] There is no radiographic evidence of malignancy. Herb Herman MD IMG MAMMOGRAPHY ORDERABLES Final Result * Fecal colorectal cancer screen (FIT) (06/29/2023 9:00 AM CDT) Occult Blood Screen FIT Negative Negative 07/06/2023 10:59 AM CDT [facility] CORE/PROT/END O Stool RECTAL CONTENTS / Unknown Non-blood Collection / Unknown 06/29/2023 9:00 AM CDT 07/05/2023 1:19 PM CDT Herb Herman MD LAB - STOOLS ORDERABLES Final Re sult [facility] CORE/PROT/ENDO [facility] Special[facility] Core/Prot/Endo [address] [facility], [address] * Eye Exam - HIM Scan (03/11/2023) RETINOPATHY UNKNOWN Narrative Christina Johnson - 03/11/2023 See encounter dated 05/03/2023 us Patient Reported OTHER Final Result * (ABNORMAL) [...] BLOOD ORDERABLES Final Res ult UU LABORATORY [facility] [place] [facility] [address] [facility], [address] [place] [address], [facility] [phone] * (ABNORMAL) Hemoglobin (01/18/2022 7:30 AM CDT) Hemoglobin 10.0(L) 11.7 - 15.7 g/dL 01/18/2022 7:52 AM CDT LABORATORY Blood STRUCTURE OF LEFT UPPER LIMB / Unknown Venipuncture / Unknown 01/18/2022 7:30 AM CDT 01/18/2022 7:43 AM CDT us Anderson George MD LAB - BLOOD ORDERABL ES Final Result LABORATORY [facility] [address] 1st floor, [address], [place] [address], [facility] [phone] * DX Hip/Pelvis/Spine w Lat Fraction Kath (07/21/2017 9:14 AM CDT) Anatomical Region Laterality Modality Dexa Bone Mineral Den sity Narrative 07/25/2017 10:30 AM CDT BONE DENSITOMETRY [address] [address] 07/21/2017 PATIENT: Angela Lamar CHART: [id number] : 1945 AGE: [age] year old SEX: female REFERRING PROVIDER: Daniel Plaza MD PROCEDURE: Bone density scanning was performed using DXA technology of the lumbar spine and hip. Scanning was performed on a [employer] scanner. Reporting is completed in the form [...] to another DXA performed on the same [employer] machine on 03/24 and 07/16. LATERAL VERTEBRAL ASSESSMENT Procedure: Vertebral fracture assessment was performed in the lateral decubitus position using a eoSemiigy densitometer. Indications for VFA: none listed Confounding factors for VFA: Arthritis/degenerative disc disease. The LVA scan is interpretable from T7 to L4. VFA Findings: Using the semi-quantitative analysis of Genant there was evidence of no spinal deformity [...] established for newborns, infants, and children NR [facility] Blood specimen (specimen) 09/23/2016 6:20 PM CDT 09/23/2016 6:21 PM CDT us Daniel Plaza MD LAB - BLOOD ORDERABLES Final Result [facility] [address] [place] [address] * PHQ-9 DEPRESSION SCREENING ORDER (03/08/2011) us Provider Abstract OTHER Final Result from Last 3 Months or Most Recently Relevant to Health Maintenance Insurance MEDICARE MEDICA PRIME SOLUTION MEDICARE MEDICA PRIME Spinal Integration Advance Directives For more information, please contact: [phone] * Full Code (Latest Code Status on [...] patie nt/ legal decision maker Care Teams Fruit And Vegetable Parer Relationship Specialty [place] [address] [place] [address] PCP - General Family Medicine 12/24/20 [place] [address] [place] [address] Assigned PCP 01/04/21 Trent Qureshi MD [facility] [address] [place] [address] Orthopaedic Surgery 09/16/21 Sammy Villa MD [address] [place] [address] Assigned Neuroscience Provider 10/01/24
--- OUTSIDE RECORDS SUMMARY | 2024-10-04 10:51 | XMS_ITS | Encounter Summary ---
Author Organization [place] Address [facility] [place] [address] Care Team Providers Care Financial Recruiter Name Role Phone Herb Herman MD Primary Care Provider [phone] Herb Herman MD Unavailable Stan Barnes MD Unavailable [phone] Trent Qureshi MD Unavailable [phone] Sammy Villa MD Unavailable Reason for Visit * Reason Onset Date Comments MyChart Communication 01/06/2023 Encounter Details Date Type Department Care Team (Latest Contact Info) Description 01/06/2023 MyC Medical Advice [facility] [address] [place] [address] [place] [address] [place] [address] MyChart Communication Social History Tobacco [...] Answer Date Recorded PHQ-2 Score 0 08/02/2022 [facility] of Occupat ional Health - Occupational Stress [...] in a half-way (including now)? No 06/08/2021 Adolescent Education Answer Date Record ed Getting School Help Needed Not on file 01/04 Comments No Sex and Gender Information Value Date Recorded Sex Assigned at Female 01/16/2019 8:38 AM CDT Legal Sex Female 3:11 AM ON SITE COORDINATOR Gender Identity Female 01/16/2019 8:38 AM CDT Sexual Orientation Choose not to disclose 2021 11:32 AM ON SITE COORDINATOR Occupation Industry Job Start Date Job [...] Description 10/08/2024 3:30 PM CDT Office Visit [facility] [address] [place] [address] [place] [address] [place] [address] documented as of this encounter Visit Diagnoses Not on filedocumented in this encounter Additional Health Concerns Assessment Noted Time PHQ-9 Depression Total Score: 1 08/03/19 23 1:10 PM CDT documented as of this encounter Care Teams Financial Recruiter Relationship Specialty [place] [address] [place] [address] PCP - General Family Medicine 12/24/20 [place] [address] [place] [address] Assigned PCP 01/04/21 Stan Barnes MD [address] [place] [address] [id number] Assigned Surgical Provider 08/30/21 08/31/23 Trent Qureshi MD [facility] [address] [place] [address] [id number] Orthopaedic Surgery 09/16/21 Sammy Villa MD [address] [place] [address] [address] [place], [place] 3[address] Assigned Neuroscience Provider 10/01/24 documented as of this encounter
--- OUTSIDE RECORDS SUMMARY | 2024-10-04 10:51 | XMS_ITS | Encounter Summary ---
Author Organization [place] Address [facility] [place] [address] Care Team Providers Care Medical Records Coordinator Name Role Phone Herb Herman MD Primary Care Provider Herb Herman MD Unavailable Stan Barnes MD Unavailable [phone] Trent Qureshi MD Unavailable [phone] Sammy Villa MD Unavailable [phone] Encounter Details Date Type Department Care Team (Late st Contact Info) Description 06/29/2021 MyC Medical Advice [facility] [address] [place] [address] [place] [address] [place] [address] Social History Tobacco Use Types [...] often do you attend chur ch or baptist services? More than 4 times per year [...] Answer Date Recorded PHQ-2 Score 0 06/24/2021 [facility] of Occupat ional Health - [...] place to sleep or slept in a snf (including now)? No 06/08/2021 Comments No Sex and Gender Information Value Date Recorded Sex Assigned at Female 01/16/2019 8:38 AM CDT Legal Sex Female 3:11 AM RIBBON WINDER Gender Identity Female 01/16/2019 8:38 AM CDT Sexual Orientation Choose not to disclose 2021 11:32 AM RIBBON WINDER COVID-19 Exposure Response Date Recorded In the last month, have you been in contact with someone who was confirmed or suspected to have Coronavirus / COVID-19? No / Unsure 06/24/2021 10:22 AM CDT documented as of this encounter Plan of Treatment Upcoming Encounters Date Type Department Care Team (Late st Contact Info) Description 10/08/2024 3:30 PM CDT Office Visit [address] [address] [place] [address] [place] [address] documented as of this encounter Visit Diagnoses Not on filedocumented in this encounter Additional Health Concerns Assessment Noted Time PHQ-9 Depression Total Score: 0 06/10/19 22 7:01 AM RIBBON WINDER documented as of this encounter Care Teams Medical Records Coordinator Relationship Specialty [place] [address] [place] [address] PCP - General Family Medicine 12/24/20 [place] [address] [place] [address] Assigned PCP 01/04/21 Stan Barnes MD [address] [place] [address] Assigned Surgical Provider 08/30/21 08/31/23 Trent Qureshi MD [facility] [address] [place] [address] Orthopaedic Surgery 09/16/21 Sammy Villa MD [address] [place] [address] [address] [place] [address] Assigned Neuroscience Provider 10/01/24 documented as of this encounter
--- OUTSIDE RECORDS SUMMARY | 2024-10-04 10:52 | XMS_ITS | Encounter Summary ---
Author Organization [facility] Address [address] [place] [address]. [place] [address] Care Team Providers Care It Infrastructure Architect Name Role Phone Herb Herman MD Primary Care Provider [phone] Herb Herman MD Unavailable Trent Qureshi MD Unavailable [phone] Reason for Visit * Reason Onset Date Comments Procedure 09/20/2024 L3-4 or L4-5 Int erlaminar ARTHUR Encounter Details Date Type Department Care Team (Late st Contact Info) Description 09/20/2024 [facility] [address] [place] [address] Pain Management Program, [facility] [...] How often do you attend [facility] or mormon services? 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 [facility] If choosing [facility] for location, please inform patient: [facility] is a Hospital based clinic. Before your visit, you should check with your insurance about how it covers the charges for facility services in a hospital-based clinic.?? Procedure ordered by Dr. Villa Procedure ordered? L3-4 or L4-5 Interlaminar ARTHUR Transforaminal Cervical ARTHUR - Send to [facility] ([email or web address] - No Community Site providers perform this procedure What insurance would patient like us to bill for this procedure? Medicare/Medica IF SCHEDULING IN [place] [facility] PLEASE SCHEDULE AT LEAST [...] to Marcy Lees Is patient scheduled at [facility]? No If YES, route every encounter to [facility] CARE NAVIGATION POOL [[phone]] Is an childcare center director needed? No Patient has a pile driver operator helper home? (Review Grid) YES: ok Any chance of ? NO If YES, do NOT schedule and route to optimization manager - Dr. Delgado route to PM&R Nurse [[id number]] Is patient actively being treated for cancer or immunocompromised? No If YES, do NOT schedule and route to optimization manager/ Dr. Delgado's Team Does the patient have a bleeding or clotting disorder? No If YES, okay to schedule AND route to RN nurse / Dr. Delgado's Team (For any patients with platelet count <100, RN must forward to provider) Is patient taking any Blood Thinners OR Antiplatelet medication? No If hold needed, do NOT schedule, route to optimization manager/ Dr. Delgado's Team Examples: Blood Thinners: (Coumadin, Warfarin, Jantoven, Pradaxa, Xarelto, Eliquis, Edoxaban, Enoxaparin, Lovenox, Heparin, Arixtra, Fondaparinux or Fragmin) Antiplatelet Medications: (Plavix, Brilinta or Effient) Is patient taking any aspirin products (includes: Aspirin 81 mg, Excedrin, and Fiorinal)? No. If yes route to optimization manager/ Dr. Delgado's Team - Do not schedule [...] to appointment notes AND route to the optimization manager/ Dr. Delgado's Team If ARTHUR and Contrast Dye / Iodine Allergy? DO NOT SCHEDULE, route to optimization manager/ Dr. Delgado's Team Allergies: Morphine, Doxycycline, Atorvastatin, [...] Orders Needed Please send all injections to project manager interior design Not Applicable Red Flags? Not Applicable Does the patient have any questions? NO Renetta Cast[facility] * Addendum Note - Dsetiny Velazquez RN - 09/20/2024 2:37 PM CDTAddended by: DESTINY VELAZQUEZ on: 09/21/2024 12:19 PM Modules accepted: Orders documented in this encounter Plan of Treatment Upcoming Encounters Date Type Department Care Team (Late st Contact Info) Description 10/08/2024 3:30 PM CDT Office Visit [facility] [phone] [place] [address] [place] [address] [place] [address] documented as of this encounter Visit Diagnoses Diagnosis Lumbar radiculopathy- Primary Thoracic or lumbosacral neuritis or radiculitis, unspecified documented in this encounter Additional Health Concerns Assessment Noted Time PHQ-9 Depression Total Score: 0 05/02/19 25 10:13 AM MINES INSPECTOR documented as of this encounter Care Teams It Infrastructure Architect Relationship Specialty [place] [address] [place] [address] PCP - General Family Medicine 12/24/20 [place] [address] [place] [address] Assigned PCP 01/04/21 Trent Qureshi MD [facility] [address] [place] [address] Orthopaedic Surgery 09/16/21 documented as of this encounter
--- OUTSIDE RECORDS SUMMARY | 2024-10-04 10:52 | XMS_ITS | Encounter Summary ---
Author Organization [facility] Address [address] [place] [address] Care Team Providers Care Manager Retail Sales Name Role Phone Daniel Plaza MD Primary Care Provider Daniel Plaza MD Unavailable [phone] Daniel Plaza MD Unavailable Stan Barnes MD Unavailable [phone] Herb Herman MD Primary Care Provider [phone] Herb Herman MD Unavailable Stan Barnes MD Unavailable [phone] Trent Qureshi MD Unavailable [phone] Sammy Villa MD Unavailable Reason for Visit * Reason Onset Date Comments Respiratory Problems 02/16/2008 Encounter Details Date Type Department Care Team (Latest Contact Info) Description 02/15/2008 MyC Medical Advice [facility] [address] [address] Daniel Plaza MD [address] [address] Respiratory Problems Social History Tobacco Use Types Packs/Day Years Used Date Smoking Tobacco: Never Alcohol Use Standard Drinks/Week Comments Yes 0 (1 standard drink = 0.6 oz pur e alcohol) social Comments No Sex and Gender Information Value Date Recorded Sex Assigned at Female 01/16/2019 8:38 AM CDT Legal Sex Female 3:11 AM ROUTER OPERATOR RADIAL Gender Identity Female 01/16/2019 8:38 AM CDT Sexual Orientation Choose not to disclose 2021 11:32 AM ROUTER OPERATOR RADIAL documented as of this encounter Plan of Treatment Upcoming Encounters Date Type Department Care Team (Late st Contact Info) Description 10/08/2024 3:30 PM CDT Office Visit [facility] [address] [place] [phone] [place] [address] [place] [address] documented as of this encounter Visit Diagnoses Not on filedocumented in this encounter Care Teams Manager Retail Sales Relationship Specialty Start Date End Date Daniel Plaza MD [address] [place] [phone] PCP - General 06/29/10 12/23/20 Daniel Plaza MD [address] [place] [phone] PCP - Assigned PCP 02/05/08 06/13/18 [place] [address] [place] [address] PCP - General Family Medicine 12/24/20 Daniel Plaza MD [address] [place] [phone] Assigned PCP 01/13/12 01/03/21 Stan Barnes MD [address] [place] [address] Assigned Surgical Provider 02/01/20 07/19/20 [place] [address] [place] [address] Assigned PCP 01/04/21 Stan Barnes MD [address] [place] [address] Assigned Surgical Provider 08/30/21 08/31/23 Trent Qureshi MD [facility] [address] [place] [address] Orthopaedic Surgery 09/16/21 Sammy Villa MD [address] [place] [address] Assigned Neuroscience Provider 10/01/24 documented as of this encounter
--- OUTSIDE RECORDS SUMMARY | 2024-10-04 10:52 | XMS_ITS | Encounter Summary ---
Author Organization [facility] Address [address] [place] [address] Care Team Providers Care Tobacco Sample Puller Name Role Phone Herb Herman MD Primary Care Provider [phone] Herb Herman MD Unavailable Trent Qureshi MD Unavailable [phone] Reason for Visit * Reason Onset Date Comments Previsit 09/19/2024 Encounter Details Date Type Department Care Team (Late st Contact Info) Description 09/19/2024 PRE VISIT [facility] [address] [place] [address] Sammy Villa MD [address] [facility] [address] [place] [address] Previsit Social History Tobacco Use [...] week 06/08/2021 How often do you attend [facility] or congregational services? More than 4 times [...] Answer Date Recorded PHQ-2 Score 0 05/02/2024 [facility] - Occupational [...] in an abandoned building, in an overnight snf, or couch-surfing.) Yes 04/25/2023 Are you worried [...] AM CDT Legal Sex Female 3:11 AM LICENSED CLINICAL SOCIAL WORKER Gender Identity Female 01/16/2019 8:38 AM CDT Sexual Orientation Choose not to disclose 2021 11:32 AM LICENSED CLINICAL SOCIAL WORKER Occupation Industry Job Start Date Job [...] Description 10/08/2024 3:30 PM CDT Office Visit [facility] [address] [place] [address] [place] [address] [place] [address] documented as of this encounter Visit Diagnoses Not on filedocumented in this encounter Additional Health Concerns Assessment Noted Time PHQ-9 Depression Total Score: 0 05/02/19 25 10:13 AM LICENSED CLINICAL SOCIAL WORKER documented as of this encounter Care Teams Tobacco Sample Puller Relationship Specialty [place] [address] [place] [address] PCP - General Family Medicine 12/24/20 [place] [address] [place] [address] Assigned PCP 01/04/21 Trent Qureshi MD [facility] [address] [place] [address] Orthopaedic Surgery 09/16/21 documented as of this encounter
--- OUTSIDE RECORDS SUMMARY | 2024-10-04 10:52 | XMS_ITS | Encounter Summary ---
Author Organization [facility] Address [facility] [place] [address] Care Team Providers Care Agency Cashier Name Role Phone Herb Herman MD Primary Care Provider [phone] Herb Herman MD Unavailable Trent Qureshi MD Unavailable [phone] Sammy Villa MD Unavailable [phone] Reason for Visit * Reason Onset Date Comments MyChart Communication 03/30/2024 Encounter Details Date Type Department Care Team (Latest Contact Info) Description 03/30/2024 MyC Medical Advice [facility] [address] [place] [address] [place] [address] [place] [address] MyChart Communication Social History Tobacco [...] Answer Date Recorded PHQ-2 Score 0 05/02/2023 [facility] - Occupational Stress Questionnaire Answer Date [...] Legal Sex Female 3:11 AM DIRECTOR OF MEDICARE Gender Identity Female 01/16/2019 8:38 AM CDT Sexual Orientation Choose not to disclose 2021 11:32 AM DIRECTOR OF MEDICARE 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 file documented as of this encounter Plan of Treatment Upcoming Encounters Date Type Department Care Team (Late st Contact Info) Description 10/08/2024 3:30 PM CDT Office Visit [address] [address] [place] [address] [place] [address] documented as of this encounter Visit Diagnoses Not on filedocumented in this encounter Additional Health Concerns Assessment Noted Time PHQ-9 Depression Total Score: 0 05/02/19 24 10:52 AM DIRECTOR OF MEDICARE documented as of this encounter Care Teams Agency Cashier Relationship Specialty Start Date [place] Herb Herman [place] [address] [place] [address] PCP - General Family Medicine 12/24/20 [place] [address] [place] [address] Assigned PCP 01/04/21 Trent Qureshi MD [facility] [address] [place] [address] Orthopaedic Surgery 09/16/21 Sammy Villa MD [address] [place] [address] 96 [place], [place] [phone] Assigned Neuroscience Provider 10/01/24 documented as of this encounter
--- OUTSIDE RECORDS SUMMARY | 2024-10-04 10:52 | XMS_ITS | Encounter Summary ---
Author Organization [facility] Address [address] [place] [address] Care Team Providers Care Cad Detailer Name Role Phone Herb Herman MD Primary Care Provider Herb Herman MD Unavailable Trent Qureshi MD Unavailable [phone] Encounter Details Date Type Department Care [...] often do you attend chur ch or temple services? 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 file documented as of this encounter Plan of Treatment Upcoming Encounters Date Type Department Care Team (Late st Contact Info) Description 10/08/2024 3:30 PM CDT Office Visit [facility] [address] [place] [address] [place] [address] [place] [address] documented as of this encounter Visit Diagnoses Not on filedocumented in this encounter Additional Health Concerns Assessment Noted Time PHQ-9 Depression Total Score: 0 05/02/19 25 10:13 AM ATOMIC SPECTROSCOPIST documented as of this encounter Care Teams Cad Detailer Relationship Specialty [place] [address] [place] [address] PCP - General Family Medicine 12/24/20 [place] [address] [place] [address] Assigned PCP 01/04/21 Trent Qureshi MD [facility] [address] [place] [address] Orthopaedic Surgery 09/16/21 documented as of this encounter
--- OUTSIDE RECORDS SUMMARY | 2024-10-04 10:52 | XMS_ITS | Encounter Summary ---
Author Organization [place] Address [address] [place] [address] Care Team Providers Care Line Construction Supervisor Name Role Phone Daniel Plaza MD Primary Care Provider Daniel Plaza MD Unavailable Daniel Plaza MD Unavailable Stan Barnes MD Unavailable [phone] Herb Herman MD Primary Care Provider [phone] Herb Herman MD Unavailable Stan Barnes MD Unavailable [phone] Trent Qureshi MD Unavailable [phone] Sammy Villa MD Unavailable [phone] Encounter Details Date Type Department Care Team (Late st Contact Info) Description 01/09/2014 [facility] Medical Advice [facility] [address] [address] Daniel Plaza MD [address] [phone] Social History Tobacco Use Types Packs/Day Years Used Date Smoking Tobacco: Never Smokeless Tobacco: Never Alcohol Use Standard Drinks/Week Comments No 0 (1 standard drink = 0.6 oz pur e alcohol) Comments No Sex and Gender Information Value Date Recorded Sex Assigned at Female 01/16/2019 8:38 AM CDT Legal Sex Female 3:11 AM MANAGER FIELD SERVICE Gender Identity Female 01/16/2019 8:38 AM CDT Sexual Orientation Choose not to disclose 2021 11:32 AM MANAGER FIELD SERVICE documented as of this encounter Plan of Treatment Upcoming Encounters Date Type Department Care Team (Late st Contact Info) Description 10/08/2024 3:30 PM CDT Office Visit [facility] [address] [place] [address] [place] [address] [place] [address] documented as of this encounter Visit Diagnoses Not on filedocumented in this encounter Care Teams Line Construction Supervisor Relationship Specialty Start Date End Date Daniel Plaza MD [address] [place] [phone] PCP - General 06/29/10 12/23/20 Daniel Plaza MD [address] [place] [address] PCP - Assigned PCP 02/05/08 06/13/18 [place] [address] [place] [address] PCP - General Family Medicine 12/24/20 Daniel Plaza MD [address] [place] [phone] Assigned PCP 01/13/12 01/03/21 Stan Barnes MD [address] [place] [address] Assigned Surgical Provider 02/01/20 07/19/20 [place] [address] [place] [address] Assigned PCP 01/04/21 Stan Barnes MD [address] [place] [address] Assigned Surgical Provider 08/30/21 08/31/23 Trent Qureshi MD [facility] [address] [place] [address] Orthopaedic Surgery 09/16/21 Sammy Villa MD [address] [place] [address] 96 [place] [address] Assigned Neuroscience Provider 10/01/24 documented as of this encounter
--- OUTSIDE RECORDS SUMMARY | 2024-10-04 10:52 | XMS_ITS | Encounter Summary ---
Author Organization [facility] Address [address] [place] [address] Care Team Providers Care Electronics Instructor Name Role Phone Daniel Plaza MD Primary Care Provider Daniel Plaza MD Unavailable [phone] Daniel Plaza MD Unavailable [phone] Stan Barnes MD Unavailable [phone] Herb Herman MD Primary Care Provider [phone] Herb Herman MD Unavailable Stan Barnes MD Unavailable [phone] Trent Qureshi MD Unavailable [phone] Sammy Villa MD Unavailable Encounter Details Date Type Department Care Team (Late st Contact Info) Description 07/25/2012 MyC Medical Advice [facility] [address] [address] Daniel Plaza MD [address] [phone] Social History Tobacco Use Types Packs/Day Years Used Date Smoking Tobacco: Never Smokeless Tobacco: Never Alcohol Use Standard Drinks/Week Comments No 0 (1 standard drink = 0.6 oz pur e alcohol) Comments No Sex and Gender Information Value Date Recorded Sex Assigned at Female 01/16/2019 8:38 AM CDT Legal Sex Female 3:11 AM ECOMMERCE MARKETING MANAGER Gender Identity Female 01/16/2019 8:38 AM CDT Sexual Orientation Choose not to disclose 2021 11:32 AM ECOMMERCE MARKETING MANAGER documented as of this encounter Plan of Treatment Upcoming Encounters Date Type Department Care Team (Late st Contact Info) Description 10/08/2024 3:30 PM CDT Office Visit [facility] [address] [place] [address] [place] [address] [place] [address] documented as of this encounter Visit Diagnoses Not on filedocumented in this encounter Care Teams Electronics Instructor Relationship Specialty Start Date End Date Daniel Plaza MD [address] [place] [address] PCP - General 06/29/10 12/23/20 Daniel Plaza MD [address] [place] [address] PCP - Assigned PCP 02/05/08 06/13/18 [place] [address] [place] [address] PCP - General Family Medicine 12/24/20 Daniel Plaza MD [address] [place] [phone] Assigned PCP 01/13/12 01/03/21 Stan Barnes MD [address] [place] [address] Assigned Surgical Provider 02/01/20 07/19/20 [place] [address] [place] [address] Assigned PCP 01/04/21 Stan Barnes MD [address] [place] [address] Assigned Surgical Provider 08/30/21 08/31/23 Trent Qureshi MD [facility] [address] [place] [address] Orthopaedic Surgery 09/16/21 Sammy Villa MD [address] [place] [address] 96 [place] [address] Assigned Neuroscience Provider 10/01/24 documented as of this encounter
--- OUTSIDE RECORDS SUMMARY | 2024-10-04 10:52 | XMS_ITS | Encounter Summary ---
Author Organization [facility] Address [address] [place] [address] Care Team Providers Care Foundry Tender Name Role Phone Daniel Plaza MD Primary Care Provider [phone] Daniel Plaza MD Unavailable [phone] Herb Herman MD Primary Care Provider Herb Herman MD Unavailable Stan Barnes MD Unavailable Trent Qureshi MD Unavailable [phone] Sammy Villa MD Unavailable [phone] Encounter Details Date Type Department Care Team (Late st Contact Info) Description 10/15/2020 MyC Medical Advice [address] [address] Yvonne Zavala Social History Tobacco [...] CDT Legal Sex Female 3:11 AM MEDICAL INFORMATION OFFICER Gender Identity Female 01/16/2019 8:38 AM CDT Sexual Orientation Choose not to disclose 2021 11:32 AM MEDICAL INFORMATION OFFICER documented as of this encounter Plan of Treatment Upcoming Encounters Date Type Department Care Team (Late st Contact Info) Description 10/08/2024 3:30 PM CDT Office Visit [facility] [address] [place] [address] [place] [address] [place] [address] documented as of this encounter Visit Diagnoses Not on filedocumented in this encounter Additional Health Concerns Assessment Noted Time PHQ-9 Depression Total Score: 1 06/26/19 11:29 AM CDT documented as of this encounter Care Teams Foundry Tender Relationship Specialty Start Date End Date Daniel Plaza MD [address] [place] [phone] PCP - General 06/29/10 12/23/20 Herb Herman MD [address] [place] [address] PCP - General Family Medicine 12/24/20 Daniel Plaza MD [address] [place] [phone] Assigned PCP 01/13/12 01/03/21 [place] [address] [place] [address] Assigned PCP 01/04/21 Stan Barnes MD [address] [place] [address] Assigned Surgical Provider 08/30/21 08/31/23 Trent Qureshi MD [facility] [address] [place] [address]3345 Orthopaedic Surgery 09/16/21 Sammy Vlila MD [address] [place] [address] 96 [place], [place] [phone] Assigned Neuroscience Provider 10/01/24 documented as of this encounter
--- OUTSIDE RECORDS SUMMARY | 2024-10-04 10:52 | XMS_ITS | Encounter Summary ---
Author Organization [facility] Address [address] [place] [address] Care Team Providers Care Formstone Fitter Name Role Phone Herb Herman MD Primary Care Provider Herb Herman MD Unavailable Trent Qureshi MD Unavailable [phone] Sammy Villa MD Unavailable Encounter Details Date Type Department Care Team (Late st Contact Info) Description 02/21/2024 [facility] Medical Advice [address] [address] Rama Roche MA Social History [...] How often do you attend chur or sabianism services? 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 file documented as of this encounter Plan of Treatment Upcoming Encounters Date Type Department Care Team (Late st Contact Info) Description 10/08/2024 3:30 PM CDT Office Visit [address] [phone] Herb Herman [place] [id number] [place] [address] documented as of this encounter Visit Diagnoses Not on filedocumented in this encounter Additional Health Concerns Assessment Noted Time PHQ-9 Depression Total Score: 0 05/02/19 24 10:52 AM CANDLE CUTTER documented as of this encounter Care Teams Formstone Fitter Relationship Specialty [place] [address] [place] [address] PCP - General Family Medicine 12/24/20 [place] [address] [place] [address] Assigned PCP 01/04/21 Trent Qureshi MD [facility] [address] [place] [address] Orthopaedic Surgery 09/16/21 Sammy Villa MD [address] [place] [address]14[address] Assigned Neuroscience Provider 10/01/24 documented as of this encounter
--- OUTSIDE RECORDS SUMMARY | 2024-10-04 10:52 | XMS_ITS | Encounter Summary ---
Author Organization [place] Address [address] [place] [address]. [place] [address] Care Team Providers Care Valve Technician Name Role Phone Herb Herman MD Primary Care Provider [phone] Herb Herman MD Unavailable Trent Qureshi MD Unavailable [phone] Sammy Villa MD Unavailable [phone] Encounter Details Date Type Department Care Team (Late st Contact Info) Description 03/31/2024 MyC Medical Advice [facility] [id number] [place] [address] [place] [address] [place] [address] Social History Tobacco Use Types [...] do you attend [facility] or adventist services? 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 file documented as of this encounter Plan of Treatment Upcoming Encounters Date Type Department Care Team (Late st Contact Info) Description 10/08/2024 3:30 PM CDT Office Visit [address] [address] [place] [address] [place], [place] [id number] documented as of this encounter Visit Diagnoses Not on filedocumented in this encounter Additional Health Concerns Assessment Noted Time PHQ-9 Depression Total Score: 0 05/02/19 24 10:52 AM TAX COMPLIANCE OFFICER documented as of this encounter Care Teams Valve Technician Relationship Specialty [place] [address] [place] [address] PCP - General Family Medicine 12/24/20 [place] [address] [place] [address] Assigned PCP 01/04/21 Trent Qureshi MD [facility] [address] [place] [address] 006295 Orthopaedic Surgery 09/16/21 Sammy Villa MD [address] [place] [address] 638255 Assigned Neuroscience Provider 10/01/24 documented as of this encounter
--- OUTSIDE RECORDS SUMMARY | 2024-10-04 10:52 | XMS_ITS | Encounter Summary ---
Author Organization [place] Address [address] [place] [address] Care Team Providers Care Health Policy Analyst Name Role Phone Daniel Plaza MD Primary Care Provider Daniel Plaza MD Unavailable [phone] Daniel Plaza MD Unavailable Stan Barnes MD Unavailable [phone] Herb Herman MD Primary Care Provider Herb Herman MD Unavailable Stan Barnes MD Unavailable [phone] Trent Qureshi MD Unavailable [phone] Sammy Villa MD Unavailable Encounter Details Date Type Department Care Team (Late st Contact Info) Description 12/24/2013 MyC Medical Advice [facility] [address] [address] Daniel Plaza MD [address] [phone] Social History Tobacco Use Types Packs/Day Years Used Date Smoking Tobacco: Never Smokeless Tobacco: Never Alcohol Use Standard Drinks/Week Comments No 0 (1 standard drink = 0.6 oz pur e alcohol) Comments No Sex and Gender Information Value Date Recorded Sex Assigned at Female 01/16/2019 8:38 AM CDT Legal Sex Female 3:11 AM AUTHORIZATION MANAGER Gender Identity Female 01/16/2019 8:38 AM CDT Sexual Orientation Choose not to disclose 2021 11:32 AM AUTHORIZATION MANAGER documented as of this encounter Plan of Treatment Upcoming Encounters Date Type Department Care Team (Late st Contact Info) Description 10/08/2024 3:30 PM CDT Office Visit [facility] [address] [place] [phone] [place] [address] [place] [address] documented as of this encounter Visit Diagnoses Not on filedocumented in this encounter Care Teams Health Policy Analyst Relationship Specialty Start Date End Date Daniel Plaza MD [address] [place] [phone] PCP - General 06/29/10 12/23/20 Daniel Plaza MD [address] [place] [address] PCP - Assigned PCP 02/05/08 06/13/18 [place] [address] [place] [address] PCP - General Family Medicine 12/24/20 Daniel Plaza MD [address] [place] [address] Assigned PCP 01/13/12 01/03/21 Stan Barnes MD [address] [place] [address] Assigned Surgical Provider 02/01/20 07/19/20 [place] [address] [place] [address] Assigned PCP 01/04/21 Stan Barnes MD [address] [place] [address] Assigned Surgical Provider 08/30/21 08/31/23 Trent Qureshi MD [facility] [address] [place] [address] Orthopaedic Surgery 09/16/21 Sammy Villa MD [address] [place] [address] 96 [place] [address] Assigned Neuroscience Provider 10/01/24 documented as of this encounter
--- OUTSIDE RECORDS SUMMARY | 2024-10-04 10:52 | XMS_ITS | Encounter Summary ---
Author Organization [place] Address [address] [place] [address] Care Team Providers Care Shot Tube Machine Tender Name Role Phone Daniel Plaza MD Primary Care Provider Daniel Plaza MD Unavailable [phone] Daniel Plaza MD Unavailable [phone] Stan Barnes MD Unavailable [phone] Herb Herman MD Primary Care Provider [phone] Herb Herman MD Unavailable Stan Barnes MD Unavailable [phone] Trent Qureshi MD Unavailable [phone] Sammy Villa MD Unavailable Reason for Visit * Reason Onset Date Comments Thyroid Disease 07/23/2014 Encounter Details Date Type Department Care Team (Late st Contact Info) Description 07/23/2014 [facility] Medical Advice [facility] [address] [address] Daniel Plaza MD [address] [address] Thyroid Disease Social History Tobacco Use Types Packs/Day Years Used Date Smoking Tobacco: Never Smokeless Tobacco: Never Alcohol Use Standard Drinks/Week Comments No 0 (1 standard drink = 0.6 oz pur e alcohol) Comments No Sex and Gender Information Value Date Recorded Sex Assigned at Female 01/16/2019 8:38 AM CDT Legal Sex Female 3:11 AM TESTER SEMICONDUCTOR PACKAGES Gender Identity Female 01/16/2019 8:38 AM CDT Sexual Orientation Choose not to disclose 2021 11:32 AM TESTER SEMICONDUCTOR PACKAGES documented as of this encounter Plan of Treatment Upcoming Encounters Date Type Department Care Team (Late st Contact Info) Description 10/08/2024 3:30 PM CDT Office Visit [facility] [address] [place] [phone] [place] [address] [place] [address] documented as of this encounter Visit Diagnoses Diagnosis MONTSERRAT'S THYROIDITIS- Primary Unspecified hypothyroidism documented in this encounter Care Teams Shot Tube Machine Tender Relationship Specialty Start Date End Date Daniel Plaza MD [address] [place] [address] PCP - General 06/29/10 12/23/20 Daniel Plaza MD [address] [place] [address] PCP - Assigned PCP 02/05/08 06/13/18 [place] [address] [place] [address] PCP - General Family Medicine 12/24/20 Daniel Plaza MD [address] [place] [phone] Assigned PCP 01/13/12 01/03/21 Stan Barnes MD [address] [place] [address] Assigned Surgical Provider 02/01/20 07/19/20 [place] [address] [place] [address] Assigned PCP 01/04/21 Stan Barnes MD [address] [place] [address] Assigned Surgical Provider 08/30/21 08/31/23 Trent Qureshi MD [facility] [address] [place] [address] [phone] Orthopaedic Surgery 09/16/21 Sammy Villa MD [address] [place] [address] Assigned Neuroscience Provider 10/01/24 documented as of this encounter
--- OUTSIDE RECORDS SUMMARY | 2024-10-04 10:52 | XMS_ITS | Encounter Summary ---
Author Organization [place] Address [address] [place] [address] Care Team Providers Care Fisher Swordfish Name Role Phone Herb Herman MD Primary Care Provider Herb Herman MD Unavailable Stan Barnes MD Unavailable [phone] Trent Qureshi MD Unavailable [phone] Sammy Villa MD Unavailable Encounter Details Date Type Department Care Team (Late st Contact Info) Description 09/15/2021 Orders Only [facility] [address] [place] [address] Manny Petersen MD [address] [place], [place] [id number] Encounter for laboratory testing for COVID-19 virus [...] often do you attend chur ch or restorationism services? More than 4 times [...] Answer Date Recorded PHQ-2 Score 0 09/15/2021 [facility]at [facility] - Occupational Stress [...] place to sleep or slept in a intermediate (including now)? No 06/08/2021 Comments No Sex and Gender Information Value Date Recorded Sex Assigned at Female 01/16/2019 8:38 AM CDT Legal Sex Female 3:11 AM HEEL BLACKER Gender Identity Female 01/16/2019 8:38 AM CDT Sexual Orientation Choose not to disclose 2021 11:32 AM HEEL BLACKER Occupation Industry Job Start Date Job End [...] Description 10/08/2024 3:30 PM CDT Office Visit [address] [phone] Herb Herman MD [address] [place] [address] documented as of this encounter Results * [...] CDT 09/17/2021 11:08 AM CDT Narrative [facility] - 09/18/2021 11:15 AM CDT Testing [...] COVID-19. This test was validated by the [facility] Infectious Diseases Diagnostic [facility]. This laboratory is certified under the Clinical Laboratory Improvement Amendments of 1988 (CLIA-88) as qualified to perform high and/or moderate complexity laboratory testing. Manny Petersen MD LAB - MICRO GENERAL ORDERABLES F inal Result [facility] Inf. Diseases Diag. Lab [address] [facility], Room [address] [place] [phone] [phone] documented in this encounter Visit Diagnoses Diagnosis Encounter for laboratory testing for COVID-19 virus documented in this encounter Additional Health Concerns Assessment Noted Time PHQ-9 Depression Total Score: 1 08/23/19 22 7:03 AM CDT documented as of this encounter Care Teams Fisher Swordfish Relationship Specialty [place] [address] [place] [address] PCP - General Family Medicine 12/24/20 [place] [address] [place] [address] Assigned PCP 01/04/21 [place] Barnes MD [address] [place] [address] [phone] Assigned Surgical Provider 08/30/21 08/31/23 Trent Qureshi MD [facility] [address] [place] [address]135 Orthopaedic Surgery 09/16/21 Sammy Villa MD 420 [facility] 96 [place] [address] Assigned Neuroscience Provider 10/01/24 documented as of this encounter
--- OUTSIDE RECORDS SUMMARY | 2024-10-04 10:52 | XMS_ITS | Encounter Summary ---
Author Organization [place] Address [address] [place] [address] Care Team Providers Care Ice Carver Name Role Phone Daniel Plaza MD Primary Care Provider Daniel Plaza MD Unavailable [phone] Stan Barnes MD Unavailable [phone] Herb Herman MD Primary Care Provider Herb Herman MD Unavailable Stan Barnes MD Unavailable [phone] Trent Qureshi MD Unavailable [phone] Sammy Villa MD Unavailable Encounter Details Date Type Department Care Team (Late st Contact Info) Description 12/21/2018 [facility] [address] [place] [address] [address] [place] [address] Stan Barnes MD [address] [place] [address] Social History Tobacco Use Types Packs/Day Years Used Date Smoking Tobacco: Never Smokeless Tobacco: Never Alcohol Use Standard Drinks/Week Comments No 0 (1 standard drink = 0.6 oz pur e alcohol) PHQ-2 Answer Date Recorded PHQ-2 Score 0 04/18/2018 Comments No Sex and Gender Information Value Date Recorded Sex Assigned at Female 01/16/2019 8:38 AM CDT Legal Sex Female 3:11 AM EYELET RIVETER Gender Identity Female 01/16/2019 8:38 AM CDT Sexual Orientation Choose not to disclose 2021 11:32 AM EYELET RIVETER documented as of this encounter Plan of Treatment Upcoming Encounters Date Type Department Care Team (Late st Contact Info) Description 10/08/2024 3:30 PM CDT Office Visit [facility] [address] [place] [address] [place] [address] [place] [address] documented as of this encounter Visit Diagnoses Not on filedocumented in this encounter Additional Health Concerns Assessment Noted Time PHQ-9 Depression Total Score: 0 11/24/19 19 11:34 AM CDT documented as of this encounter Care Teams Ice Carver Relationship Specialty Start Date End Date Daniel Plaza MD [address] [place] [phone] PCP - General 06/29/10 12/23/20 [place] [address] [place] [address] PCP - General Family Medicine 12/24/20 Daniel Plaza MD [address] [place] [phone] Assigned PCP 01/13/12 01/03/21 Stan Barnes MD 9 [place] [address] Assigned Surgical Provider 02/01/20 07/19/20 [place] [address] [place] [address] Assigned PCP 01/04/21 Stan Barnes MD [address] [place] [address] 490855 Assigned Surgical Provider 08/30/21 08/31/23 Trent Qureshi MD [facility] [address] [place] [address] Orthopaedic Surgery 09/16/21 Sammy Villa MD 420 [facility] 96 [place], [place] 7129[address] Assigned Neuroscience Provider 10/01/24 documented as of this encounter
--- OUTSIDE RECORDS SUMMARY | 2024-10-04 10:52 | XMS_ITS | Encounter Summary ---
Author Organization [place] Address [address] [place] [address] Care Team Providers Care Candy Separator Hard Name Role Phone Herb Herman MD Primary Care Provider Herb Herman MD Unavailable Stan Barnes MD Unavailable [phone] Trent Qureshi MD Unavailable [phone] Sammy Villa MD Unavailable Reason for Visit * Reason Comments Medication Refill Encounter Details Date Type Department Care Team (Late st Contact Info) Description 01/28/[address] [phone] Daniel Plaza MD [address] [place] [phone] Medication Refill Social History Tobacco Use Types Packs/Day Years Used Date Smoking Tobacco: Never Smokeless Tobacco: Never Alcohol Use Standard Drinks/Week Comments No 0 (1 standard drink = 0.6 oz pur e alcohol) PHQ-2 Answer Date Recorded PHQ-2 Score 0 12/24/2020 Comments No Sex and Gender Information Value Date Recorded Sex Assigned at Female 01/16/2019 8:38 AM CDT Legal Sex Female 3:11 AM BOLT LOADER Gender Identity Female 01/16/2019 8:38 AM CDT Sexual Orientation Choose not to disclose 2021 11:32 AM BOLT LOADER documented as of this encounter Miscellaneous Notes * Telephone Encounter - Herb Herman MD - 01/28/2021 12:37 PM CDT Patient was switched from separate tablets of lisinopril and hydrochlorothiazide to a combination pill called Zestoretic which contains both medications already. Thank you, Herb Herman MD * Telephone Encounter - Alivai Dhaliwal RN - 01/28/2021 10:24 AM CDT Routing refill request to provider for review/approval because: Drug not active on patient's medication list Alivia Dhaliwal RN documented in this encounter Plan of Treatment Upcoming Encounters Date Type Department Care Team (Late st Contact Info) Description 10/08/2024 3:30 PM CDT Office Visit [facility] [address] [place] [phone] Herb Herman [place] [address] [place] [address] documented as of this encounter Visit Diagnoses Diagnosis Edema, unspecified type Essential hypertension Unspecified essential hypertension Type 2 diabetes mellitus without complication, without long-term current use of insulin (H) documented in this encounter Additional Health Concerns Assessment Noted Time PHQ-9 Depression Total Score: 0 12/26/19 21 7:02 AM CDT documented as of this encounter Care Teams Candy Separator Hard Relationship Specialty [place] [address] [place] [address] PCP - General Family Medicine 12/24/20 [place] [address] [place] [address] Assigned PCP 01/04/21 Stan Barnes MD [address] [place] [address] Assigned Surgical Provider 08/30/21 08/31/23 Trent Qureshi MD [facility] [address] [place] [address] Orthopaedic Surgery 09/16/21 Sammy Villa MD [address] [place] [address] 96 [place] [address] Assigned Neuroscience Provider 10/01/24 documented as of this encounter
--- OUTSIDE RECORDS SUMMARY | 2024-10-04 10:52 | XMS_ITS | Encounter Summary ---
Author Organization [place] Address [address] [place] [address]. [place] [address] Care Team Providers Care Rail Bender Name Role Phone Herb Herman MD Primary Care Provider Herb Herman MD Unavailable Stan Barnes MD Unavailable [phone] Trent Qureshi MD Unavailable [phone] Sammy Villa MD Unavailable [phone] Encounter Details Date Type Department Care Team (Late st Contact Info) Description 09/23/2021 [facility] [address] 4th [place] [address] [place] Social History Tobacco Use Types Packs/Day Years [...] often do you attend [facility] or [facility] services? More than 4 times per year [...] Answer Date Recorded PHQ-2 Score 0 09/15/2021 [facility] - Occupational Stress Questionnaire Answer Date [...] place to sleep or slept in a jail (including now)? No 06/08/2021 Comments No Sex and Gender Information Value Date Recorded Sex Assigned at Female 01/16/2019 8:38 AM CDT Legal Sex Female 3:11 AM BOOK JOGGER Gender Identity Female 01/16/2019 8:38 AM CDT Sexual Orientation Choose not to disclose 2021 11:32 AM BOOK JOGGER Occupation Industry Job Start Date Job End [...] Description 10/08/2024 3:30 PM CDT Office Visit [address] [phone] [place] [address] [place] [address] documented as of this encounter Visit Diagnoses Not on filedocumented in this encounter Additional Health Concerns Assessment Noted Time PHQ-9 Depression Total Score: 1 08/23/19 22 7:03 AM CDT documented as of this encounter Care Teams Rail Bender Relationship Specialty [place] [address] [place] [address] PCP - General Family Medicine 12/24/20 [place] [address] [place] [address] Assigned PCP 01/04/21 Stan Barnes MD [address] [place] [address] 425845 Assigned Surgical Provider 08/30/21 08/31/23 Trent Qureshi MD [facility] [address] [place] [address]205 Orthopaedic Surgery 09/16/21 Sammy Villa MD 420 [facility] 96 [place] [address] Assigned Neuroscience Provider 10/01/24 documented as of this encounter
--- OUTSIDE RECORDS SUMMARY | 2024-10-04 10:52 | XMS_ITS | Encounter Summary ---
Author Organization [place] Address [address] [place] [address] Care Team Providers Care Loan Services Professional Name Role Phone Herb Herman MD Primary Care Provider [phone] Herb Herman MD Unavailable Trent Qureshi MD Unavailable [phone] Encounter Details Date Type Department Care [...] often do you attend chur ch or restoration services? 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 file documented as of this encounter Plan of Treatment Upcoming Encounters Date Type Department Care Team (Late st Contact Info) Description 10/08/2024 3:30 PM CDT Office Visit [facility] [address] [place] [phone] [place] [address] [place] [address] documented as of this encounter Visit Diagnoses Not on filedocumented in this encounter Additional Health Concerns Assessment Noted Time PHQ-9 Depression Total Score: 0 05/02/19 25 10:13 AM WARP STARTER documented as of this encounter Care Teams Loan Services Professional Relationship Specialty [place] [address] [place] [address] PCP - General Family Medicine 12/24/20 [place] [address] [place] [address] Assigned PCP 01/04/21 Trent Qureshi MD [facility] [address] [place] [address] Orthopaedic Surgery 09/16/21 documented as of this encounter
--- OUTSIDE RECORDS SUMMARY | 2024-10-04 10:52 | XMS_ITS | Encounter Summary ---
Author Organization [place] Address [address] [place] [address] Care Team Providers Care Sliver Machine Operator Name Role Phone Daniel Plaza MD Primary Care Provider [phone] Daniel Plaza MD Unavailable Daniel Plaza MD Unavailable [phone] Stan Barnes MD Unavailable [phone] Herb Herman MD Primary Care Provider Herb Herman MD Unavailable Stan Barnes MD Unavailable [phone] Trent Qureshi MD Unavailable [phone] Sammy Villa MD Unavailable Encounter Details Date Type Department Care Team (Late st Contact Info) Description 02/28/2008 MyC Medical Advice [facility] [address] [address] Daniel Plaza MD [address] [phone] Social History Tobacco Use Types Packs/Day Years Used Date Smoking Tobacco: Never Alcohol Use Standard Drinks/Week Comments Yes 0 (1 standard drink = 0.6 oz pur e alcohol) social Comments No Sex and Gender Information Value Date Recorded Sex Assigned at Female 01/16/2019 8:38 AM CDT Legal Sex Female 3:11 AM HARDENING MACHINE OPERATOR Gender Identity Female 01/16/2019 8:38 AM CDT Sexual Orientation Choose not to disclose 2021 11:32 AM HARDENING MACHINE OPERATOR documented as of this encounter Plan of Treatment Upcoming Encounters Date Type Department Care Team (Late st Contact Info) Description 10/08/2024 3:30 PM CDT Office Visit [facility] [address] [place] [phone] [place] [id number] [place] [address] documented as of this encounter Visit Diagnoses Not on filedocumented in this encounter Care Teams Sliver Machine Operator Relationship Specialty Start Date End Date Daniel Plaza MD [address] [place] [address] PCP - General 06/29/10 12/23/20 Daniel Plaza MD [address] [place] [address] PCP - Assigned PCP 02/05/08 06/13/18 [place] [address] [place] [address] PCP - General Family Medicine 12/24/20 Daniel Plaza MD [address] [place] [phone] Assigned PCP 01/13/12 01/03/21 Stan Barnes MD [address] [place] [address] Assigned Surgical Provider 02/01/20 07/19/20 [place] [address] [place] [address] Assigned PCP 01/04/21 Stan Barnes MD [address] [place] [address] Assigned Surgical Provider 08/30/21 08/31/[address] [facility] [address] [place] [address] Orthopaedic Surgery 09/16/21 Sammy Villa MD [address] [place] [address] Assigned Neuroscience Provider 10/01/24 documented as of this encounter
--- OUTSIDE RECORDS SUMMARY | 2024-10-04 10:52 | XMS_ITS | Encounter Summary ---
Author Organization [place] Address [address] [place] [address] Care Team Providers Care Poultry Feed Supervisor Name Role Phone Herb Herman MD Primary Care Provider Herb Herman MD Unavailable Stan Barnes MD Unavailable + [phone] Trent Qureshi MD Unavailable [phone] Sammy Villa MD Unavailable [phone] Encounter Details Date Type Department Care Team (Late st Contact Info) Description 12/23/2021 [facility] Medical Advice [address] [address] Brooke Barnes Social History Tobacco [...] How often do you attend chur or orthodox services? More than 4 times per year [...] Answer Date Recorded PHQ-2 Score 0 11/24/2021 [facility] Occupat ional [facility] - Occupational Stress Questionnaire Answer [...] CDT Legal Sex Female 3:11 AM MANAGER INFRASTRUCTURE Gender Identity Female 01/16/2019 8:38 AM CDT Sexual Orientation Choose not to disclose 2021 11:32 AM MANAGER INFRASTRUCTURE Occupation Industry Job Start Date Job End [...] Description 10/08/2024 3:30 PM CDT Office Visit [facility] [address] [place] [phone] [place] [address] [place] [address] documented as of this encounter Visit Diagnoses Not on filedocumented in this encounter Additional Health Concerns Assessment Noted Time PHQ-9 Depression Total Score: 1 08/23/19 22 7:03 AM CDT documented as of this encounter Care Teams Poultry Feed Supervisor Relationship Specialty [place] [address] [place] [address] PCP - General Family Medicine 12/24/20 [place] [address] [place] [address] Assigned PCP 01/04/21 Stan Barnes MD [address] [place] [address] 829975 Assigned Surgical Provider 08/30/21 08/31/23 Trent Qureshi MD [facility] [address] [place] [address] 520575 Orthopaedic Surgery 09/16/21 Sammy Villa MD [address] [place] [address] 96 [place] [address] Assigned Neuroscience Provider 10/01/24 documented as of this encounter
--- OUTSIDE RECORDS SUMMARY | 2024-10-04 10:52 | XMS_ITS | Encounter Summary ---
Author Organization [facility] Address [address] [place] [address]. [place] [address] Care Team Providers Care Russian Language Instructor Name Role Phone Herb Herman MD Primary Care Provider [phone] Herb Herman MD Unavailable Stan Barnes MD Unavailable + [phone] Trent Qureshi MD Unavailable [phone] Sammy Villa MD Unavailable [phone] Encounter Details Date Type Department Care Team (Late st Contact Info) Description 08/27/2021 My[facility] Medical Advice [address] 5th [place] [address] Rachelle Mai RN Social History [...] How often do you attend chur or denominational services? More than 4 times per year [...] Answer Date Recorded PHQ-2 Score 0 08/25/2021 [facility] of Occupat ional [facility] - Occupational Stress Questionnaire Answer Date Recorded [...] to sleep or slept in a senior living (including now)? No 06/08/2021 Comments No Sex and Gender Information Value Date Recorded Sex Assigned at Female 01/16/2019 8:38 AM CDT Legal Sex Female 3:11 AM INTERNET DEVELOPER Gender Identity Female 01/16/2019 8:38 AM CDT Sexual Orientation Choose not to disclose 2021 11:32 AM INTERNET DEVELOPER Occupation Industry Job Start Date Job End [...] Description 10/08/2024 3:30 PM CDT Office Visit [address] [address] [place] [id number] [place] [address] [id number] documented as of this encounter Visit Diagnoses Not on filedocumented in this encounter Additional Health Concerns Assessment Noted Time PHQ-9 Depression Total Score: 1 08/23/19 22 7:03 AM CDT documented as of this encounter Care Teams Russian Language Instructor Relationship Specialty [place] [address] [place], [place] [phone] PCP - General Family Medicine 12/24/20 [place] [address] [place] [address] Assigned PCP 01/04/21 Stan Barnes MD [address] [place] [address] [phone] Assigned Surgical Provider 08/30/21 08/31/23 Trent Qureshi MD [facility] [address] [place] [address] [id number] Orthopaedic Surgery 09/16/21 Sammy Villa MD [address] [facility] 96 [place] [address] Assigned Neuroscience Provider 10/01/24 documented as of this encounter
--- OUTSIDE RECORDS SUMMARY | 2024-10-04 10:52 | XMS_ITS | Encounter Summary ---
Author Organization [facility] Address [address] [place] [address] Care Team Providers Care Sales Ledger Administrator Name Role Phone Daniel Plaza MD Primary Care Provider [phone] Daniel Plaza MD Unavailable [phone] Daniel Plaza MD Unavailable [phone] Stan Barnes MD Unavailable [phone] Herb Herman MD Primary Care Provider [phone] Herb Herman MD Unavailable Stan Barnes MD Unavailable [phone] Trent Qureshi MD Unavailable [phone] Sammy Villa MD Unavailable Reason for Visit * Reason Onset Date Comments Medication Request 04/22/2015 Encounter Details Date Type Department Care Team (Late st Contact Info) Description 04/22/2015 [facility] Medical Advice [facility] [address] [address] Daniel Plaza MD [address] [address] Medication Request Social History Tobacco Use Types Packs/Day Years Used Date Smoking Tobacco: Never Smokeless Tobacco: Never Alcohol Use Standard Drinks/Week Comments No 0 (1 standard drink = 0.6 oz pur e alcohol) Comments No Sex and Gender Information Value Date Recorded Sex Assigned at Female 01/16/2019 8:38 AM CDT Legal Sex Female 3:11 AM RADIO NEWS WRITER Gender Identity Female 01/16/2019 8:38 AM CDT Sexual Orientation Choose not to disclose 2021 11:32 AM RADIO NEWS WRITER documented as of this encounter Plan of Treatment Upcoming Encounters Date Type Department Care Team (Late st Contact Info) Description 10/08/2024 3:30 PM CDT Office Visit [facility] [address] [place] [phone] [place] [address] [place] [address] documented as of this encounter Visit Diagnoses Diagnosis Edema, unspecified edema- Primary documented in this encounter Care Teams Sales Ledger Administrator Relationship Specialty Start Date End Date Daniel Plaza MD [address] [place] [phone] PCP - General 06/29/10 12/23/20 Daniel Plaza MD [address] [place] [phone] PCP - Assigned PCP 02/05/08 06/13/18 [place] [address] [place] [address] PCP - General Family Medicine 12/24/20 Daniel Plaza MD [address] [place] [address] Assigned PCP 01/13/12 01/03/21 Stan Barnes MD [address] [place] [address] Assigned Surgical Provider 02/01/20 07/19/20 [place] [address] [place] [address] Assigned PCP 01/04/21 Stan Barnes MD [address] [place] [address] Assigned Surgical Provider 08/30/21 08/31/23 Trent Qureshi MD [facility] [address] [place] [address] Orthopaedic Surgery 09/16/21 Sammy Villa MD [address] [place] [address] Assigned Neuroscience Provider 10/01/24 documented as of this encounter
--- OUTSIDE RECORDS SUMMARY | 2024-10-04 10:52 | XMS_ITS | Encounter Summary ---
Author Organization [facility] Address [address] [place] [address] Care Team Providers Care Environmental Law Professor Name Role Phone Daniel Plaza MD Primary Care Provider Daniel Plaza MD Unavailable [phone] Daniel Plaza MD Unavailable Stan Barnes MD Unavailable [phone] Herb Herman MD Primary Care Provider Herb Herman MD Unavailable Stan Barnes MD Unavailable [phone] Trent Qureshi MD Unavailable [phone] Sammy Villa MD Unavailable Encounter Details Date Type Department Care Team (Late st Contact Info) Description 10/30/2014 MyC Medical Advice [facility] [address] [address] Daniel Plaza MD [address] [phone] Social History Tobacco Use Types Packs/Day Years Used Date Smoking Tobacco: Never Smokeless Tobacco: Never Alcohol Use Standard Drinks/Week Comments No 0 (1 standard drink = 0.6 oz pur e alcohol) Comments No Sex and Gender Information Value Date Recorded Sex Assigned at Female 01/16/2019 8:38 AM CDT Legal Sex Female 3:11 AM MUD JACK OPERATOR Gender Identity Female 01/16/2019 8:38 AM CDT Sexual Orientation Choose not to disclose 2021 11:32 AM MUD JACK OPERATOR documented as of this encounter Miscellaneous Notes [...] CDT Office Visit [facility] [address] [place] [phone] Herb Herman [place] [address] [place] [address] documented as of this encounter Visit Diagnoses Not on filedocumented in this encounter Care Teams Environmental Law Professor Relationship Specialty Start Date End Date Daniel Plaza MD [address] [phone] PCP - General 06/29/10 12/23/20 Daniel Plaza MD [address] [place] [address] PCP - Assigned PCP 02/05/08 06/13/18 [place] [address] [place] [address] PCP - General Family Medicine 12/24/20 Daniel Plaza MD [address] [place] [address] Assigned PCP 01/13/12 01/03/21 Stan Barnes MD [address] [place] [address] Assigned Surgical Provider 02/01/20 07/19/20 [place] [address] [place] [address] Assigned PCP 01/04/21 Stan Barnes MD [address] [place] [address] Assigned Surgical Provider 08/30/21 08/31/23 Trent Qureshi MD [facility] [address] [place] [address] Orthopaedic Surgery 09/16/21 Sammy Villa MD [address] [place] [address] Assigned Neuroscience Provider 10/01/24 documented as of this encounter
--- OUTSIDE RECORDS SUMMARY | 2024-10-04 10:52 | XMS_ITS | Encounter Summary ---
Author Organization [facility] Address [address] [place] [address] Care Team Providers Care Crosscutter Rolled Glass Name Role Phone Daniel Plaza MD Primary Care Provider Daniel Plaza MD Unavailable [phone] Daniel Plaza MD Unavailable Stan Barnes MD Unavailable [phone] Herb Herman MD Primary Care Provider Herb Herman MD Unavailable Stan Barnes MD Unavailable [phone] Trent Qureshi MD Unavailable [phone] Sammy Villa MD Unavailable Encounter Details Date Type Department Care Team (Late st Contact Info) Description 10/30/2014 MyC Medical Advice [facility] [address] [address] Daniel Plaza MD [address] [phone] Social History Tobacco Use Types Packs/Day Years Used Date Smoking Tobacco: Never Smokeless Tobacco: Never Alcohol Use Standard Drinks/Week Comments No 0 (1 standard drink = 0.6 oz pur e alcohol) Comments No Sex and Gender Information Value Date Recorded Sex Assigned at Female 01/16/2019 8:38 AM CDT Legal Sex Female 3:11 AM ELEVATOR OPERATOR SERVICE Gender Identity Female 01/16/2019 8:38 AM CDT Sexual Orientation Choose not to disclose 2021 11:32 AM ELEVATOR OPERATOR SERVICE documented as of this encounter Plan of Treatment Upcoming Encounters Date Type Department Care Team (Late st Contact Info) Description 10/08/2024 3:30 PM CDT Office Visit [facility] [address] [place] [phone] [place]b Herman [place] [address] [place] [address] documented as of this encounter Visit Diagnoses Not on filedocumented in this encounter Care Teams Crosscutter Rolled Glass Relationship Specialty Start Date End Date Daniel Plaza MD [address] [place] [phone] PCP - General 06/29/10 12/23/20 Daniel Plaza MD [address] [place] [phone] PCP - Assigned PCP 02/05/08 06/13/18 [place] [address] [place] [address] PCP - General Family Medicine 12/24/20 Daniel Plaza MD [address] [place] [phone] Assigned PCP 01/13/12 01/03/21 Stan Barnes MD [address] [place] [address] Assigned Surgical Provider 02/01/20 07/19/20 [place] [address] [place] [address] Assigned PCP 01/04/21 Stan Barnes MD [address] [place] [address] Assigned Surgical Provider 08/30/21 08/31/23 Trent Qureshi MD [facility] [address] [place] [address] Orthopaedic Surgery 09/16/21 Sammy Villa MD [address] [place] [address] 96 [place] [address] Assigned Neuroscience Provider 10/01/24 documented as of this encounter
--- OUTSIDE RECORDS SUMMARY | 2024-10-04 10:52 | XMS_ITS | Encounter Summary ---
Author Organization [facility] Address [address] [place] [address]. [place] [address] Care Team Providers Care Tie Bucker Name Role Phone Herb Herman MD Primary Care Provider Herb Herman MD Unavailable Trent Qureshi MD Unavailable [phone] Reason for Visit * Reason Comments Medication Refill Encounter Details Date Type Department Care Team (Late st Contact Info) Description 09/23/[address] [address] [place] [address] [place] [address] Medication Refill Social History Tobacco [...] 06/08/2021 How often do you attend [facility] or zoroastrian services? 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 file documented as of this encounter Miscellaneous Notes * Addendum Note - Vanessa Gage RN - 09/23/2024 10:34 AM CDTAddended by: VANESSA GAGE on: 09/24/2024 02:57 PM Modules accepted: Orders documented in this encounter Plan of Treatment Upcoming Encounters Date Type Department Care Team (Late st Contact Info) Description 10/08/2024 3:30 PM CDT Office Visit [facility] [address] [place] [address] [place] [address] [place] [address] documented as of this encounter Visit Diagnoses Diagnosis Arthritis Arthropathy, unspecified, site unspecified documented in this encounter Additional Health Concerns Assessment Noted Time PHQ-9 Depression Total Score: 0 05/02/19 25 10:13 AM HEAD TENNIS COACH documented as of this encounter Care Teams Tie Bucker Relationship Specialty [place] [address] [place] [address] PCP - General Family Medicine 12/24/20 [place] [address] [place] [address] Assigned PCP 01/04/21 Trent Qureshi MD [facility] [address] [place] [address] Orthopaedic Surgery 09/16/21 documented as of this encounter
--- OUTSIDE RECORDS SUMMARY | 2024-10-04 10:52 | XMS_ITS | Encounter Summary ---
Author Organization [facility] Address [address] [place] [address] Care Team Providers Care Risk Management Consultant Name Role Phone Herb Herman MD Primary Care Provider Herb Herman MD Unavailable Trent Qureshi MD Unavailable [phone] Sammy Villa MD Unavailable Encounter Details Date Type Department Care Team (Late st Contact Info) Description 02/20/2024 [facility] Medical Advice [address] [address] Brooke Barnes Social History Tobacco [...] Date Recorded PHQ-2 Score 0 05/02/2023 [facility] of Occupat [...] AM CDT Legal Sex Female 3:11 AM CARPENTER/LABOR Gender Identity Female 01/16/2019 8:38 AM CDT Sexual Orientation Choose not to disclose 2021 11:32 AM CARPENTER/LABOR 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 file documented as of this encounter Plan of Treatment Upcoming Encounters Date Type Department Care Team (Late st Contact Info) Description 10/08/2024 3:30 PM CDT Office Visit [address] [phone] [place] [address] [place] [address] documented as of this encounter Visit Diagnoses Not on filedocumented in this encounter Additional Health Concerns Assessment Noted Time PHQ-9 Depression Total Score: 0 05/02/19 24 10:52 AM CARPENTER/LABOR documented as of this encounter Care Teams Risk Management Consultant Relationship Specialty [place] [address] [place] [address] PCP - General Family Medicine 12/24/20 [place] [address] [place] [address] Assigned PCP 01/04/21 Trent Qureshi MD [facility] [address] [place] [address] 656155 Orthopaedic Surgery 09/16/21 Sammy Villa MD [address] [place] [address] 96 [place], [place] 985745 Assigned Neuroscience Provider 10/01/24 documented as of this encounter
--- OUTSIDE RECORDS SUMMARY | 2024-10-04 10:52 | XMS_ITS | Encounter Summary ---
Author Organization [facility] Address [address] [place] [address]. [place] [address] Care Team Providers Care Fleet Driver Name Role Phone Herb Herman MD Primary Care Provider Herb Herman MD Unavailable Trent Qureshi MD Unavailable [phone] Sammy Villa MD Unavailable [phone] Encounter Details Date Type Department Care Team (Late st Contact Info) Description 05/16/2024 MyC Medical Advice [facility] [address] [place] [address] Herb Herman [place] [id number] [place] [address] Social History Tobacco Use Types Packs/Day [...] week 06/08/2021 How often do you attend [facility] or faith services? 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 file documented as of this encounter Plan of Treatment Upcoming Encounters Date Type Department Care Team (Late st Contact Info) Description 10/08/2024 3:30 PM CDT Office Visit [address] [phone] [place] [address] [place] [address] documented as of this encounter Visit Diagnoses Not on filedocumented in this encounter Additional Health Concerns Assessment Noted Time PHQ-9 Depression Total Score: 0 05/02/19 25 10:13 AM MANAGER REGIONAL SALES documented as of this encounter Care Teams Fleet Driver Relationship Specialty [place] [address] [place] [address] PCP - General Family Medicine 12/24/20 [place] [address] [place] [address] Assigned PCP 01/04/21 Trent Qureshi MD [facility] [address] [place] [address] 880635 Orthopaedic Surgery 09/16/21 Sammy Villa MD [address] [place] [address] 946165 Assigned Neuroscience Provider 10/01/24 documented as of this encounter
--- OUTSIDE RECORDS SUMMARY | 2024-10-04 10:52 | XMS_ITS | Encounter Summary ---
Author Organization [facility] Address [address] [place] [address]. [place] [address] Care Team Providers Care Oracle Fusion Middleware Developer Name Role Phone Herb Herman MD Primary Care Provider [phone] Herb Herman MD Unavailable Trent Qureshi MD Unavailable [phone] Sammy Villa MD Unavailable [phone] Encounter Details Date Type Department Care Team (Late st Contact Info) Description 09/19/2024 [facility] Medical Advice [facility] [address], [address] [place] [phone] Ana Larsen, IRENE Social History Tobacco Use Types Packs/Day Years [...] Date Recorded PHQ-2 Score 0 05/02/2024 [facility] of Occupat ional Health - Occupational Stress [...] AM CDT Legal Sex Female 3:11 AM PASSENGER SERVICE MANAGER Gender Identity Female 01/16/2019 8:38 AM CDT Sexual Orientation Choose not to disclose 2021 11:32 AM PASSENGER SERVICE MANAGER 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 file documented as of this encounter Plan of Treatment Upcoming Encounters Date Type Department Care Team (Late st Contact Info) Description 10/08/2024 3:30 PM CDT Office Visit [facility] [address] [place] [phone] [place] [address] [place] [address] documented as of this encounter Visit Diagnoses Not on filedocumented in this encounter Additional Health Concerns Assessment Noted Time PHQ-9 Depression Total Score: 0 05/02/19 25 10:13 AM PASSENGER SERVICE MANAGER documented as of this encounter Care Teams Oracle Fusion Middleware Developer Relationship Specialty [place] [address] [place] [address] PCP - General Family Medicine 12/24/20 [place] [address] [place] [address] Assigned PCP 01/04/21 Trent Qureshi MD [facility] [address] [place] [address] 477885 Orthopaedic Surgery 09/16/21 Sammy Villa MD [address] [place] [address] 371425 Assigned Neuroscience Provider 10/01/24 documented as of this encounter
--- OUTSIDE RECORDS SUMMARY | 2024-10-04 10:53 | XMS_ITS | Encounter Summary ---
Author Organization [place] Address [facility] [place] [address] Care Team Providers Care Rubber Cutter And Shape Carver Name Role Phone Herb Herman MD Primary Care Provider [phone] Herb Herman MD Unavailable Stan Barnes MD Unavailable [phone] Trent Qureshi MD Unavailable [phone] Sammy Villa MD Unavailable Encounter Details Date Type Department Care Team (Late st Contact Info) Description 06/22/2022 MyC Medical Advice [facility] [address] [place] [address] [place] [address] [place] [address] Social History Tobacco Use Types [...] often do you attend chur ch or bahai services? 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 file documented as of this encounter Plan of Treatment Upcoming Encounters Date Type Department Care Team (Late st Contact Info) Description 10/08/2024 3:30 PM CDT Office Visit [facility] [address] [place] [phone] Herb Herman [place] [phone] [place] [address] documented as of this encounter Visit Diagnoses Not on filedocumented in this encounter Additional Health Concerns Assessment Noted Time PHQ-9 Depression Total Score: 0 03/08/20 22 10:26 AM EMAIL MARKETING SPECIALIST documented as of this encounter Care Teams Rubber Cutter And Shape Carver Relationship Specialty [place] [address] [place] [address] PCP - General Family Medicine 12/24/20 [place] [address] [place] [address] Assigned PCP 01/04/21 Stan Barnes MD [address] [place] [address] Assigned Surgical Provider 08/30/21 08/31/23 Trent Qureshi MD [facility] [address] [id number] Orthopaedic Surgery 09/16/21 Sammy Villa MD [address] [facility] 96 [place], [place] 124415 Assigned Neuroscience Provider 10/01/24 documented as of this encounter
[2024-10-04 11:00] VITALS: BP 141/67; PULSE 62; RESP 14
[2024-10-04 11:01] LABS: Troponin I* < 0.01 ng/mL (0.01-0.04)
[2024-10-04] MEDS: ASPIRIN 81 MG TAB.CHEW PO (11:15)
[2024-10-04 11:30] VITALS: BP 144/88; PULSE 64; RESP 12
[2024-10-04 12:00] VITALS: BP 140/59; PULSE 63; RESP 14
== END 2024-10-04 12:38 | disposition home or self-care (01) ==
PROVIDERS: Emergency Provider Emergency Medicine; PCP Family Medicine
DX: G45.9 Transient cerebral ischemic attack, unspecified (principal); I66.09 Occlusion and stenosis of unspecified middle cerebral artery; I10 Essential (primary) hypertension; E11.9 Type 2 diabetes mellitus without complications; E03.9 Hypothyroidism, unspecified; Z79.899 Other long term (current) drug therapy; Z79.84 Long term (current) use of oral hypoglycemic drugs
CPT/HCPCS: 36415; 70450; 80048; 84484; 85025; 85610; 93005; 99283; 99284; 99285; A9270

== ENCOUNTER 2024-10-05 11:36 | Emergency (ER) | payer MEDICARE, OTHER, SELFPAY ==
--- OUTSIDE RECORDS SUMMARY | 2024-09-10 | XMS_ITS | Encounter Summary ---
Author Organization [facility] Address [address] [place] [address]. [place] [address] Care Team Providers Care Valet Cashier Name Role Phone Herb Herman MD Primary Care Provider [phone] Herb Herman MD Unavailable Trent Qureshi MD Unavailable [phone] Encounter Details Date Type Department Care Team (Late st Contact Info) Description 09/10/2024 Ancillary Procedure [facility] Imaging [address] [place] [phone] Non-Fv Credentialed Provider, Radiology Social History Tobacco [...] often do you attend chur ch or alevism services? 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 file documented as of this encounter Plan of Treatment Upcoming Encounters Date Type Department Care Team (Late st Contact Info) Description 10/08/2024 3:30 PM CDT Office Visit [facility] [address] [place] [phone] [place] Herman [place] [id number] [place] [address] [phone] documented as of this encounter Procedures Procedure [...] Total Score: 0 05/02/19 25 10:13 AM CREAM BEATER documented as of this encounter Care Teams Valet Cashier Relationship Specialty [place] [address] [place] [address] PCP - General Family Medicine 12/24/20 [place] [address] [place] [address] Assigned PCP 01/04/21 Trent Qureshi MD [facility] [address] [place] [address] Orthopaedic Surgery 09/16/21 documented as of this encounter
--- OUTSIDE RECORDS SUMMARY | 2024-09-10 00:05 | XMS_ITS | Encounter Summary ---
Author Organization [place] Address [address] [place] [address]. [place] [address] Care Team Providers Care Painter Chassis Name Role Phone Herb Herman MD Primary Care Provider [phone] Herb Herman MD Unavailable Trent Qureshi MD Unavailable [phone] Encounter Details Date Type Department Care Team (Late st Contact Info) Description 09/10/2024 12:05 AM CDT Ancillary Procedure [facility] External Imaging [address] [place] [phone] Non-Fv Credentialed Provider, Radiology Social History Tobacco [...] often do you attend chur ch or anglican services? 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 file documented as of this encounter Plan of Treatment Upcoming Encounters Date Type Department Care Team (Late st Contact Info) Description 10/08/2024 3:30 PM CDT Office Visit [address] [phone] Herb Herman MD [address] [place] [address] documented as of this encounter Procedures Procedure [...] Total Score: 0 05/02/19 25 10:13 AM CAMBERING MACHINE OPERATOR documented as of this encounter Care Teams Painter Chassis Relationship Specialty [place] [address] [facility] [place] [address] PCP - General Family Medicine 12/24/20 [place] [address] [place] [address] Assigned PCP 01/04/21 Trent Qureshi MD [facility] [address] [place] [address] Orthopaedic Surgery 09/16/21 documented as of this encounter
--- OUTSIDE RECORDS SUMMARY | 2024-09-19 14:20 | XMS_ITS | Encounter Summary ---
Author Organization [place] Address [address] [facility] [place] [address] Care Team Providers Care B Operator Name Role Phone Herb Herman MD Primary Care Provider [phone] Herb Herman MD Unavailable Trent Qureshi MD Unavailable [phone] Reason for Referral * Consultation (Routine: Next available opening) - Pending Review Specialty Diagnoses / Procedures Referred By Contac t Referred To Contact Diagnoses Lumbar stenosis with neurogenic claudication Sammy Villa MD [address] [address] Phone: tel: fax: Referral ID Status Reason Start Date Expiration Date V isits Requested Visits Authorized [id number] Pending Review 09/19/2024 09/19/2025 1 1 Question Answer Referral Type: Procedure Procedure: Epidural (Advanced imaging required in the last 3 years) Location: Lumbar Injection Type: Interlaminar ARTHUR Level: L3-4 Has the patient had a CT or MRI of the area of concern within the last 12 months? Yes Patient Scheduling Instructions: Our [facility] Orthopedic Tank Wagon Operator team will contact you via phone, text, email or MyChart within 2 business days to help you schedule your appointment, or you may contact the Tank Wagon Operator Team at . Additional Information: L3-4 or L4-5 ARTHUR Comments Please be aware that coverage of these services is subject to the terms and limitations of your health insurance plan. Call member services at your health plan with any benefit or coverage questions. Our [facility] Orthopedic Tank Wagon Operator team will contact you via phone, text, email or MyChart within 2 business days to help you schedule your appointment, or you may contact the Tank Wagon Operator Team at . * Rehab Therapy Physical Therapy (Routine: Next available opening) - Pending Review Specialty Diagnoses / Procedures Referred By Ambreen allen Referred To Contact Diagnoses Lumbar stenosis with neurogenic claudication Sammy Villa MD 420 [facility] [address] [place] [address] Phone: tel: fax: Referral ID Status Reason Start Date Expiration Date V isits Requested Visits Authorized [id number] Pending Review 09/19/2024 09/19/2025 1 1 Question Answer Course of Action: Evaluation and Treatment Specialty Services: Per Associated Diagnosis Patient Scheduling Instructions: [facility] will call you to coordinate your care as prescribed by your provider. If you don't hear from a insurance claim representative within 2 business days, please call . Comments Please be aware that coverage of these services is subject to the terms and limitations of your health insurance plan. Call member services at your health plan with any benefit or coverage questions. [facility] will call you to coordinate your care as prescribed by your provider. If you don't hear from a insurance claim representative within 2 business days, please call . Reason for Visit * Reason Comments Consult Low back pain * Consultation (Routine: Next available opening) - Closed Specialty Diagnoses / Procedures Referred By Contac t Referred To Contact Orthopedics Diagnoses Low back pain Douglas Hernandez MD [facility] [address] [facility] [address] [place] [address] Phone: tel: fax: Referral ID Status Reason Start Date Expiration Date Visits Re quested Visits Authorized [id number] Closed 09/11/2024 09/11/2025 1 1 Encounter Details Date Type Department Care Team (Late st Contact Info) Description 09/19/2024 2:20 PM CDT Office Visit [facility] [place] [address] [place] [phone] Douglas Hernandez MD [facility] [address] [place], [place] [phone] Sammy Villa MD [address] [facility] [address] [facility] [address] [place], [place] [address] Lumbar stenosis with neurogenic claudication (Primary Dx); [...] How often do you attend chur or jehovah's witness services? More than 4 times per year 06/08/2021 Do you belong to any clubs o r organizations such as denominational groups, unions, fraternal or athletic groups, or [...] Answer Date Recorded PHQ-2 Score 0 05/02/2024 [place] [employer] Occupat ional Health - Occupational Stress [...] AM CDT Legal Sex Female 3:11 AM CAUSTIC MIXER Gender Identity Female 01/16/2019 8:38 AM CDT Sexual Orientation Choose not to disclose 2021 11:32 AM CAUSTIC MIXER Occupation Industry Job Start Date Job End [...] if symptoms persist after this timeframe. Our [facility] Orthopedic Tank Wagon Operator team will contact you via phone, text, email or MyChart within 2 business days to help you schedule your appointment, or you may contact the Tank Wagon Operator Team at . Order placed for physical therapy. You can call the phone number highlighted in the order to schedule your appointment. Please call our clinic if symptoms persist after your course of physical therapy. If you have not heard from the scheduling office within 2 business days, please call [phone] for [facility], for [place] and [phone] for [facility]. Please call us if you have any further questions or concerns. [facility] documented in this encounter Progress [...] Due to statin intolerance vitamin D2 (ERGOCALCIFEROL) 13089 units (1250 mcg) capsule TAKE ONE CAPSULE [...] documented in this encounter Plan of Treatment Upcoming Encounters Date Type Department Care Team (Late st Contact Info) Description 10/08/2024 3:30 PM CDT Office Visit [facility] [address] [place] [address] [place] [address] [place] [address] Scheduled Referrals Name Type Priority Associated Diagnoses Orde r Schedule Physical Therapy Tank Wagon Operator Referral Referral Routine: Next available opening Lumbar stenosis with neurogenic claudication Expected: 09/19/2024 (Approximate), Expires: 09/19/2025 Spine Tank Wagon Operator Referral Referral Routine: Next available opening Lumbar [...] Total Score: 0 05/02/19 25 10:13 AM CAUSTIC MIXER documented as of this encounter Care Teams B Operator Relationship Specialty [place] [address] [place] [address] PCP - General Family Medicine 12/24/20 [place] [address] [place] [address] Assigned PCP 01/04/21 Trent Qureshi MD [facility] [address] [place] [id number] Orthopaedic Surgery 09/16/21 documented as of this encounter
--- OUTSIDE RECORDS SUMMARY | 2024-09-26 10:15 | XMS_ITS | Encounter Summary ---
Author Organization [place] Address [facility] [place] [address] Care Team Providers Care White Shoe Examiner Name Role Phone Herb Herman MD Primary Care Provider [phone] Herb Herman MD Unavailable Trent Qureshi MD Unavailable [phone] Reason for Referral * Clinically Administered Medications (Routine) - Closed Specialty Diagnoses / Procedures Referred By Contac t Referred To Contact Diagnoses unknown [place] [address] [place] [address] Phone: tel: fax: Referral ID Status Reason Start Date Expiration Date Visits Re quested Visits Authorized [id number] Closed 09/26/2024 09/26/2025 1 1 Reason for Visit * Reason Comments Pain * Consultation (Routine: Next available opening) - Pending Review Specialty Diagnoses / Procedures Referred By Contac t Referred To Contact Diagnoses Lumbar stenosis with neurogenic claudication Sammy Villa MD [address] [facility] [address] [place] [address] Phone: tel: fax: Referral ID Status Reason Start Date Expiration Date V isits Requested Visits Authorized [id number] Pending Review 09/19/2024 09/19/2025 1 1 Encounter Details Date Type Department Care Team (Latest Contact Info) Description 09/26/2024 10:15 AM CDT Radiology Injection Office Visit [facility] Management [place] [address] [place] [address] [address] [place], [place] [address] Sammy Villa MD [address] [facility] [address] [place] [address] [place] [address] [place] [address] Lumbar radiculopathy (Primary Dx); Lumbar stenosis with [...] How often do you attend [facility] or cheondoism services? More than 4 times per year 06/08/2021 Do you belong to any clubs o r organizations such as bahai groups, unions, fraternal or athletic groups, or [...] Answer Date Recorded PHQ-2 Score 0 05/02/2024 [facility] of Occupat ional Health - Occupational Stress [...] in an abandoned building, in an overnight long term, or couch-surfing.) Yes 04/25/2023 Are you worried [...] AM CDT Legal Sex Female 3:11 AM RETAIL ANALYST Gender Identity Female 01/16/2019 8:38 AM CDT Sexual Orientation Choose not to disclose 2021 11:32 AM RETAIL ANALYST Occupation Industry Job Start Date Job End [...] Velazquez RN - 09/26/2024 10:15 AM CDT [facility] Pain Center Procedure Discharge Instructions [...] pain center line during work hours at [phone] on-call physician after hours at [phone]: -Fever over 100 degree F -Swelling, bleeding, [...] from the original note were not included. [facility] Pain Management Center - Procedure Note [...] the procedure. Diagnosis: Lumbar spondylosis; Lumbar radiculitis/radiculopathy Sales Leader: Daniel Dunlap MD Anesthesia: none Indications: Angela [...] 7.1 MRI LUMBAR SPINE was done @ [facility] on 02/15/2024 and was reviewed - [...] any questions or NO to having a carrier driver Please complete laminated checklist and leave [...] oral steroids? NO Do you have a carrier driver? Yes Are you or ? Not Applicable Have you received any vaccinations in the last week? NO Vitals: B/P 172/78 Manual Recheck: B/P 148/68 Notify provider and RNs if systolic BP >170, diastolic BP >100, P >100 or O2 sats < 90% Mikala Staley MA [facility] Management Center * Ruma [...] Yes Signature/Title: Ruma R Yelle, RN RN Box Printing Machine Operator [facility] [place] documented in this encounter Plan of Treatment Upcoming Encounters Date Type Department Care Team (Late st Contact Info) Description 10/08/2024 3:30 PM CDT Office Visit [facility] [address] [place] [phone] Herb Herman MD [address] [place] [address] documented as of this encounter Procedures Procedure [...] from the original result were not included. [facility] - Procedure Note Date of Visit: [...] the procedure. Diagnosis: Lumbar spondylosis; Lumbar radiculitis/radiculopathy Sales Leader: Daniel Dunlap MD Anesthesia: none Indications: Angela [...] DUNLAP MD Pain Management Daniel Dunlap MD [facility] [place] PAIN MANAGEMENT ORDERABLES [...] Total Score: 0 05/02/19 25 10:13 AM RETAIL ANALYST documented as of this encounter Care Teams White Shoe Examiner Relationship Specialty [place] [address] [place] [address] PCP - General Family Medicine 12/24/20 [place] [address] [place] [address] Assigned PCP 01/04/21 Trent Qureshi MD [facility] [address] [place] [address] Orthopaedic Surgery 09/16/21 documented as of this encounter
[2024-10-05 11:44] VITALS: BP 127/74; PULSE 74; RESP 18; TEMP 36.2; O2SAT 97; BMI 38.8
--- NOTE | 2024-10-05 12:21 | ED.GENADULT ---
HPI - General Adult General Date Seen: 10/05/24 Chief complaint: Neuro Symptoms/Altered Deficit Stated complaint: possible stroke Time Seen by Provider: 10/05/24 11:42 History of Present Illness [facility] narrative: Patient is a 78-year-old who was seen here initially on October 02 and diagnosed with acute stroke, hospitalist at that time and had a workup that showed an unremarkable echo in terms of her valves, an MRI as follows:Impression: 1. Small acute to early subacute infarctions within the left guerin radiata, left basal ganglia, left cerebellar hemisphere. 2. Chronic lacunar infarctions right cerebellar hemisphere. 3. Mild chronic microvascular ischemic changes and diffuse cerebral volume loss. No obvious atrial fibrillation noted, she was sent home on a ZIO patch. Initially maintained on aspirin. Return here yesterday with a brief episode of recurrent dysarthria, self limited. Head and noncontrast head CT which was unremarkable, Neurology was consulted, and she was sent home on Plavix. She did not tolerate initial statin and was discharged yesterday on CD a. She comes in today saying that when she left her yesterday she felt ?great, on waking this morning at 7:00 a.m. she says that she felt poorly again noting that her speech was off, she says that it is difficult to get words out, her says that he is having a difficult time understanding her, and she says that she is needing to use her walker instead of her usual cane. She does have underlying spinal stenosis and some balance and gait problems due to that, but she says she is having more trouble walking due to problems with use of her right leg today. She says that it feels numb up to the right knee. She says she always has numbness in her feet. She notes that she had a couple episodes of nonbloody diarrhea today. She denies any other new symptoms such as fevers, vomiting, palpitations, fainting, headache. She does note that she had a brief episode of left-sided chest pain earlier which is now resolved. Related Data Home Medications ?Medication ?Instructions ?Recorded ?Confirmed amitriptyline 25 mg tablet 25 mg PO QPM 01/31/24 10/05/24 ergocalciferol (vitamin D2) 1,250 1,250 mcg PO .every week 01/31/24 10/05/24 mcg (50,000 unit) capsule levothyroxine 137 mcg tablet 137 mcg PO DAILY 01/31/24 10/05/24 lisinopril 10 1 tab PO DAILY 01/31/24 10/05/24 mg-hydrochlorothiazide 12.5 mg tablet metformin 1,000 mg tablet 1,000 mg PO BID 01/31/24 10/05/24 naproxen 500 mg tablet 500 mg PO BID PRN moderate pain 01/31/24 10/05/24 omeprazole 20 mg capsule,delayed 20 mg PO QPM 01/31/24 10/05/24 release Previous Rx's ?Medication ?Instructions ?Recorded aspirin 81 mg tablet 81 mg PO DAILY #90 tabs 10/03/24 rosuvastatin 10 mg tablet 5 mg (1/2 x 10 mg) PO BEDTIME #30 10/03/24 tabs clopidogrel 75 mg tablet 75 mg PO DAILY #30 tabs 10/04/24 ezetimibe 10 mg tablet (Zetia) 10 mg PO DAILY #30 tabs 10/04/24 Allergies Allergy/AdvReac Type Severity Reaction Status Date / Time doxycycline Allergy Verified 10/05/24 11:44 erythromycin base Allergy Verified 10/05/24 11:44 morphine Allergy Verified 10/05/24 11:44 Review of Systems Status of ROS: Reports: 10 or more systems reviewed and unremarkable except as noted in History and below [facility] Medical History (Updated 10/05/24 @ 16:43 by Ami Aguilera MD) Hyperlipidemia ?E78.5 - Hyperlipidemia, unspecified (ICD-10) Major 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 (12/22/15) ?F32.5 - Major depressive disorder, single episode, in full remission (ICD-10) Poor balance (05/20/23) ?R26.89 - Other abnormalities of gait and mobility (ICD-10) Spinal stenosis of lumbar region with neurogenic claudication (03/20/15) ?M48.062 - Spinal stenosis, lumbar region with neurogenic claudication (ICD-10) Lumbar radiculopathy ?M54.16 - Radiculopathy, lumbar region (ICD-10) Lumbosacral radiculitis ?M54.17 - Radiculopathy, lumbosacral region (ICD-10) Lumbar spondylosis ?M47.816 - Spondylosis without myelopathy or radiculopathy, lumbar region (ICD-10) Obesity (BMI 30-39.9) ?E66.9 - Obesity, unspecified (ICD-10) Chronic kidney disease, stage 3a ?N18.31 - Chronic kidney disease, stage 3a (ICD-10) Insomnia ?G47.00 - Insomnia, unspecified (ICD-10) Acquired hypothyroidism ?E03.9 - Hypothyroidism, unspecified (ICD-10) 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 - Stenosis of larynx (ICD-10) Diabetes mellitus type 2, controlled ?E11.9 - Type 2 diabetes mellitus without complications (ICD-10) Vitamin D deficiency ?E55.9 - Vitamin D deficiency, unspecified (ICD-10) Essential hypertension ?I10 - Essential (primary) hypertension (ICD-10) Surgical History S/P total hip arthroplasty (09/21/21) ?Z96.649 - Presence of unspecified artificial hip joint (ICD-10) Social History What is your current living situation?: I presently have a place to live Problems where you live: no known problems Problems where you live details: NA In the past 12 months, utilities in danger of being shut off: no In past 12 months, lack of transportation kept you from medical appts, meetings, work, or getting things needed for daily living: no In the past 12 mos, have been you worried that your food would run out before you had money to buy more?: never true In the past 12 mos, the food you bought just didn't last and you didn't have money to buy more?: never true Highest level of school completed/degree received: Master's degree Smoking Status: Never smoker Do you use any of these nicotine containing products: None Second hand tobacco smoke exposure: No How often do you have a drink containing alcohol: never How often do you have six or more drinks on one occasion: Never AUDIT-C Alcohol total score: 0 Non-prescribed substance use: denies use Caffeine: Yes (Diet Pepsi, Daily) How often does anyone, including family, friends and others, physically hurt you: never How often does anyone, including family, friends and others, insult or talk down to you: never How often does anyone, including family, friends and others, threaten you with harm: never How often does anyone, including family, friends and others, scream or curse at you: never service: No Exam Narrative: Exam Narrative: Vital signs as noted above. In general, an alert, nontoxic elderly woman. Head: Normocephalic, atraumatic. Eyes: Pupils are equal reactive. Extraocular movements are full. Conjunctivae are normal. ENT: Mucous membranes are moist. Throat is normal. Neck: Supple without lymphadenopathy. Heart: Regular rate and rhythm. No murmur or rub. Lungs: Clear bilaterally. No increased work of breathing, crackles or wheezes. Abdomen: Soft and nontender. No organomegaly. Extremities: Well perfused. No edema. No calf tenderness. Pulses intact. Neurologic: Patient is alert and oriented to person and place. Speech is fluent, I do not note any dysarthria or aphasia. Face is symmetric, intact bilateral facial movement. Moves all extremities equally, strength is 5 of 5 in bilateral upper and lower extremities. Chronic decreased sensation in her feet, otherwise sensation is intact to light touch. Cerebellar function is intact by finger-nose testing, heel-mccormack testing not assessed. She is able to stand from sitting without difficulty. She had difficulty walking will holding onto my hands due to problems moving her right leg. I do not know how much of this is chronic in how much is potentially new. Affect: Normal. Skin: Warm and dry. Well perfused. Const: Vital Signs, click to edit/add: Vital Signs - 24 hr 10/05/24 11:44 10/05/24 14:13 10/05/24 16:35 Temperature 97.2 F L 97.2 F L 97.8 F Pulse Rate [Right Pulse Oximeter] 74 74 66 Respiratory Rate 18 18 18 Blood Pressure [Le ft Upper Arm] 127/74 134/85 151/54 H Pulse Oximetry 97 97 96 Oxygen Delivery Me thod Room Air Room Air Room Air Course Course ED Course: Following my initial conversation and evaluation, I did page Neurology and spoke with the neurologist who has been involved with her care both during her original stroke as well as yesterday, so he is very familiar with her. We discussed her presentation today, and the potential benefits of doing another MRI of the brain today. He felt that if she had evidence of new strokes, even without clear evidence of atrial fibrillation, that he would recommend switching to full anticoagulation at that point, and so we did decide to do a repeat MRI of the brain. In the meantime she had an EKG which showed a ventricular rate of 70, normal sinus rhythm, right bundle branch block, no other acute findings. She had a CBC and a metabolic panel, these were notable for a mildly elevated white blood cell count of 13, of unclear significance, CO2 of 19. Blood sugar of 130, magnesium slightly low 1.5. Point of care troponin 0. I gave her 500 mL of normal saline and a g of magnesium. I reviewed her MRI, I did not see any obvious new areas of infarct, the area of infarct near the left basal ganglia looks somewhat larger than it did on the . The radiology read is of interval increased size of cytotoxic edema associated with this area of infarct, the left cerebellar acute and sub acute infarct looks stable and there is mild chronic ischemic microvascular disease. They do not note any acute new infarcts. Discussed briefly again with Neurology, he would recommend holding any antihypertensives, primary care follow-up, but does feel that this increased edema is likely why she had more difficulty today. I reviewed all this with her, discussed that she may notice that her symptoms wax and wane a little bit, she is scheduled to severe primary doctor on Tuesday, few days from now. Will go ahead and discharge her home, discussed holding her blood pressure medicines, continuing the medicines that were prescribed yesterday including CT a and Plavix. Discussed that if she notices some waxing and waning of the same symptoms that she was here with over the past couple of days I do not think she needs to come back for that. However if she has new/different neurologic symptoms I would want her to return. She is comfortable with that plan. Vital Signs Vital signs: Initial Vital Signs Temperature 97.2 F L 10/05/24 11:44 Temperature Source Temporal Artery Scan 10/05/24 11:44 Pulse Rate 74 10/05/24 11:44 Respiratory Rate 18 10/05/24 11:44 Blood Pressure 127/74 10/05/24 11:44 Blood Pressure Mean 91 10/05/24 11:44 Blood Pressure Position Supine 10/05/24 11:44 Pulse Oximetry 97 10/05/24 11:44 Oxygen Delivery Method Room Air 10/05/24 11:44 Vital Signs Temperature 97.2 F L 10/05/24 11:44 Pulse Rate 74 10/05/24 11:44 Respiratory Rate 18 10/05/24 11:44 Blood Pressure 127/74 10/05/24 11:44 Pulse Oximetry 97 10/05/24 11:44 Oxygen Delivery Method Room Air 10/05/24 11:44 Temperature 97.8 F 10/05/24 16:35 Pulse Rate 66 10/05/24 16:35 Respiratory Rate 18 10/05/24 16:35 Blood Pressure 151/54 H 10/05/24 16:35 Pulse Oximetry 96 10/05/24 16:35 Oxygen Delivery Method Room Air 10/05/24 16:35 Medications Administered Medications: Discontinued Medications Generic Name Dose Route Start Last Admin Trade Name Freq PRN Reason Stop Dose Admin Sodium Chloride 500 mls @ 500 mls/hr 10/05/24 15:51 10/05/24 16:22 0.9 % Sodium Chloride 500 Ml IV 10/05/24 16:50 500 mls/hr .Q1H ONE Administration Magnesium Sulfate/Dextrose 1 gm in 100 mls @ 100 mls/hr 10/05/24 15:52 10/05/24 16:20 Magnesium Sulf 1 G/100 Ml IVPB 10/05/24 16:51 100 mls/hr ONCE ONE Administration Medical Decision Making Lab Data Lab results reviewed: Yes I reviewed the patient's lab results Labs: Lab Results 10/05/24 10/05/24 Range/Units 12:26 12:50 WBC 13.09 H (4.50-11.00) K/uL RBC 4.25 (4.00-5.20) m/uL Hgb 13.7 (12.0-16.0) gm/dL Hct 41.7 (33.0-51.0) % MCV 98 (80-100) fL MCH 32 (26-34) pg MCHC 33 (32-36) gm/dL RDW Coeff of Arun 12.2 (11.5-15.5) % Plt Count 278 (140-440) K/uL Neut % (Auto) 78.1 H (42.0-72.0) % Lymph % (Auto) 14.7 L (20-44) % [place] % (Auto) 6.3 (0.0-11.0) % Eos % (Auto) 0.5 (0.0-7.0) % Baso % (Auto) 0.2 (0.0-3.0) % Neut # (Auto) 10.20 H (1.7-7.0) K/uL Lymph # (Auto) 1.90 (0.90-2.90) K/uL [place] # (Auto) 0.80 (0.00-0.90) K/UL Eos # (Auto) 0.10 (0.00-0.50) K/uL Baso # (Auto) 0.00 (0.00-0.30) K/uL Abs Immat Gran (auto) 0.00 (0.00-0.30) K/uL Imm/Tot Granulo (auto) 0.2 % Sodium 138 (135-149) mmol/L Potassium 4.7 (3.6-5.1) mmol/L Chloride 106 (96-114) mmol/L Carbon Dioxide 19 L (20-32) mmol/L Anion Gap 13 (7-15) mEq/L BUN 28 (7-30) mg/dL Creatinine 1.1 (0.5-1.5) mg/dL Estimated Creat Clear 37.57 Estimated GFR 52 ml/min Glucose 130 H (60-115) mg/dL Calcium 10.2 (8.4-10.6) mg/dL Magnesium 1.5 (1.5-2.6) mg/dL POC Troponin I 0.00 L (0.01-0.04) ng/ml Imaging Data MR Brain: Attestation: I have reviewed the pertinent imaging results. Radiologist's impression: Facility: [facility] Site . Site : 1945 Study: MRI-Head W/O-10/05/2024 2:27:25 PM Ordering Physician: Willy Mueller Final Report: Indication: Recent stroke. Technique: Multiplanar, multisequence MRI of the brain was performed without intravenous contrast. Comparison: None relevant available. Findings: The corpus callosum, pituitary gland and clivus appear intact. Mild degenerative change visualized upper cervical spine. Interval increase in size of restricted diffusion involving the left basal ganglia and guerin radiata. For reference the left basal ganglia component now measures up to 12 mm, previously 10 mm. There is corresponding T2 FLAIR hyperintensity which is also more pronounced in the interval. Stable small left cerebellar acute/subacute infarct measuring 5 mm. The ventricles are proportionate to the cerebral sulci. The 4th ventricle appears midline. The basal cisterns appear patent. No abnormal extra-axial fluid collection identified. Mild parenchymal volume loss. Mild scattered T2 FLAIR hyperintense foci within the subcortical and periventricular white matter, favored to represent chronic ischemic microvascular disease. There is no intracranial mass, abnormal mass-effect or midline shift identified. Major intracranial vascular flow voids appear grossly intact. Both globes are preserved. Impression: 1. Interval increased size of cytotoxic edema associated with left basal ganglia and guerin radiata infarcts. 2. Stable small left cerebellar acute/subacute infarct. 3. Mild chronic ischemic microvascular disease. Discharge Plan Discharge Clinical Impression: Cerebrovascular accident Qualifiers: CVA mechanism: embolism Patient Disposition: Home, Self-Care Condition: Improved Instructions: Stroke (DC) Additional Instructions: As discussed, the symptoms from your recent stroke may wax and wane over the next few days to several weeks. Your MRI today does not show any evidence of new strokes, but there is a little bit of swelling around your previous strokes that is likely contributing to your symptoms feeling a little worse today. Please follow-up with your primary doctor as planned. Hold any blood pressure medications until then. If you have new/different neurologic symptoms, you should return to the emergency department right away. Continue taking the medications that were prescribed yesterday. Prescriptions: No Action levothyroxine 137 mcg tablet 137 mcg PO DAILY amitriptyline 25 mg tablet 25 mg PO QPM metformin 1,000 mg tablet 1,000 mg PO BID omeprazole 20 mg capsule,delayed release(DR/EC) 20 mg PO QPM ergocalciferol (vitamin D2) 1,250 mcg (50,000 unit) capsule 1,250 mcg PO .every week lisinopril-hydrochlorothiazide 10-12.5 mg tablet 1 tab PO DAILY naproxen 500 mg tablet 500 mg PO BID PRN (Reason: moderate pain) rosuvastatin 10 mg Tablet 5 mg PO BEDTIME Qty: 30 0RF Rx Instructions: One half tablet po nightly aspirin 81 mg tablet 81 mg PO DAILY Qty: 90 0RF clopidogrel 75 mg tablet 75 mg PO DAILY Qty: 30 2RF ezetimibe [Zetia] 10 mg tablet 10 mg PO DAILY Qty: 30 0RF Follow Up/Referrals: Herb Herman MD [Primary Care Provider, Family Practice] Stand Alone Forms: [employer] Info Instructions
--- NOTE | 2024-10-05 12:35 | CRLHL7_ITS ---
For Patients: As a result of the Century Cures Act, medical imaging exams and procedure reports are released immediately into your electronic medical record. You may view this report before your referring provider. If you have questions, please contact your health care provider. Indication: Recent stroke. Technique: Multiplanar, multisequence MRI of the brain was performed without intravenous contrast. Comparison: None relevant available. Findings: The corpus callosum, pituitary gland and clivus appear intact. Mild degenerative change visualized upper cervical spine. Interval increase in size of restricted diffusion involving the left basal ganglia and guerin radiata. For reference the left basal ganglia component now measures up to 12 mm, previously 10 mm. There is corresponding T2 FLAIR hyperintensity which is also more pronounced in the interval. Stable small left cerebellar acute/subacute infarct measuring 5 mm. The ventricles are proportionate to the cerebral sulci. The 4th ventricle appears midline. The basal cisterns appear patent. No abnormal extra-axial fluid collection identified. Mild parenchymal volume loss. Mild scattered T2 FLAIR hyperintense foci within the subcortical and periventricular white matter, favored to represent chronic ischemic microvascular disease. There is no intracranial mass, abnormal mass-effect or midline shift identified. Major intracranial vascular flow voids appear grossly intact. Both globes are preserved. Impression: 1. Interval increased size of cytotoxic edema associated with left basal ganglia and guerin radiata infarcts. 2. Stable small left cerebellar acute/subacute infarct. 3. Mild chronic ischemic microvascular disease. Dictated by Chaitanya Marcano MD @ 10/05/2024 2:50:21 PM (Electronically Signed)
[2024-10-05 13:03] LABS: Basophils Percent Auto 0.2 % (0.0-3.0); Eosinophils Percent Auto 0.5 % (0.0-7.0); Hematocrit 41.7 % (33.0-51.0); Hemoglobin* 13.7 gm/dL (12.0-16.0); Immature Granulocytes Pct Auto 0.2 %; Lymphocytes Percent Auto 14.7 % (20-44); Mean Corpuscular HGB Conc 33 gm/dL (32-36); Mean Corpuscular Hemoglobin 32 pg (26-34); Mean Corpuscular Volume 98 fL (80-100); Monocytes Percent Auto 6.3 % (0.0-11.0); Neutrophils Percent Auto 78.1 % (42.0-72.0); Platelet Count* 278 K/uL (140-440); RDW Coefficient of Variation % 12.2 % (11.5-15.5); Red Blood Count 4.25 m/uL (4.00-5.20); White Blood Count* 13.09 K/uL (4.50-11.00)
[2024-10-05 13:13] LABS: Slide Review Reflex No
[2024-10-05 13:20] LABS: Chloride* 106 mmol/L (96-114); Sodium* 138 mmol/L (135-149)
--- OUTSIDE RECORDS SUMMARY | 2024-10-05 13:20 | XMS_ITS | Encounter Summary ---
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 Name Role Phone Daniel Plaza MD Primary Care Provider [phone] Daniel Plaza MD Unavailable [phone] Daniel Plaza MD Unavailable Stan Barnes MD Unavailable [phone] Herb Herman MD Primary Care Provider Herb Herman MD Unavailable Stan Barnes MD Unavailable [phone] Trent Qureshi MD Unavailable [phone] Sammy Villa MD Unavailable [phone] Encounter Details Date Type Department Care Team (Late st Contact Info) Description 11/28/2001 Abstract M [facility] [address] [address] Daniel Plaza MD [address] [phone] Social History Tobacco Use Types Packs/Day Years Used Date Smoking Tobacco: Never Assessed Comments No Sex and Gender Information Value Date Recorded Sex Assigned at Female 01/16/2019 8:38 AM CDT Legal 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 Gender Identity Female 01/16/2019 8:38 AM CDT Sexual Orientation Choose not to disclose 2021 11:32 AM PREPARER documented as of this encounter Plan of Treatment Upcoming Encounters Date Type Department Care Team (Late st Contact Info) Description 10/08/2024 3:30 PM CDT Office Visit [facility] [address] [place] [address] [place] [address] [place] [address] documented as of this encounter Visit Diagnoses Not on filedocumented in this encounter Care Teams Incinerator Plant Laborer Relationship Specialty Start Date End Date Daniel Plaza MD [address] [place] [phone] PCP - General 06/29/10 12/23/20 Daniel Plaza MD [address] [place] [phone] PCP - Assigned PCP 02/05/08 06/13/18 [place] [address] [place] [address] PCP - General Family Medicine 12/24/20 Daniel Plaza MD [address] [place] [phone] Assigned PCP 01/13/12 01/03/21 Stan Barnes MD [address] [place] [id number] Assigned Surgical Provider 02/01/20 07/19/20 [place] [address] [place] [address] Assigned PCP 01/04/21 Stan Barnes MD [address] [place] [address] [id number] Assigned Surgical Provider 08/30/21 08/31/23 Trent Qureshi MD [facility] [address] [place] [address] Orthopaedic Surgery 09/16/21 Sammy Villa MD [address] [place] [address] [phone] Assigned Neuroscience Provider 10/01/24 documented as of this encounter
--- OUTSIDE RECORDS SUMMARY | 2024-10-05 13:20 | XMS_ITS | Encounter Summary ---
Author Organization [facility] Address [address] [place] [address] Care Team Providers Care Facilities Assistant Name Role Phone Daniel Plaza MD Primary Care Provider Daniel Plaza MD Unavailable Daniel Plaza MD Unavailable Stan Barnes MD Unavailable [phone] Herb Herman MD Primary Care Provider [phone] Herb Herman MD Unavailable Stan Barnes MD Unavailable [phone] Trent Qureshi MD Unavailable [phone] Sammy Villa MD Unavailable Encounter Details Date Type Department Care Team (Late st Contact Info) Description 11/21/2001 Abstract M [facility] [address] [address] Daniel Plaza MD [address] [phone] Social History Tobacco Use Types Packs/Day Years Used Date Smoking Tobacco: Never Assessed Comments No Sex and Gender Information Value Date Recorded Sex Assigned at Female 01/16/2019 8:38 AM CDT Legal 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 Gender Identity Female 01/16/2019 8:38 AM CDT Sexual Orientation Choose not to disclose 2021 11:32 AM SPLITTER MACHINE documented as of this encounter Plan of Treatment Upcoming Encounters Date Type Department Care Team (Late st Contact Info) Description 10/08/2024 3:30 PM CDT Office Visit [facility] [address] [place] [phone] [place] [address] [place] [address] documented as of this encounter Visit Diagnoses Not on filedocumented in this encounter Care Teams Facilities Assistant Relationship Specialty Start Date End Date Daniel Plaza MD [address] [place] [phone] PCP - General 06/29/10 12/23/20 Daniel Plaza MD [address] [place] [phone] PCP - Assigned PCP 02/05/08 06/13/18 [place] [address] [place] [address] PCP - General Family Medicine 12/24/20 Daniel Plaza MD [address] [place] [phone] Assigned PCP 01/13/12 01/03/21 Stan Barnes MD [address] [place] [address] Assigned Surgical Provider 02/01/20 07/19/20 [place] [address] [place] [address] Assigned PCP 01/04/21 Stan Barnes MD [address] [place] [address] [id number] Assigned Surgical Provider 08/30/21 08/31/23 Trent Qureshi MD [facility] [address] [place] [address] Orthopaedic Surgery 09/16/21 Sammy Villa MD [address] [place] [address] [phone] Assigned Neuroscience Provider 10/01/24 documented as of this encounter
--- OUTSIDE RECORDS SUMMARY | 2024-10-05 13:20 | XMS_ITS | Encounter Summary ---
Author Organization [place] Address [address] [place] [address] Care Team Providers Care Cigar Packer Name Role Phone Daniel Plaza MD Primary Care Provider Daniel Plaza MD Unavailable [phone] Daniel Plaza MD Unavailable [phone] Stan Barnes MD Unavailable Herb Herman MD Primary Care Provider [phone] Herb Herman MD Unavailable Stan Barnes MD Unavailable + [phone] Trent Qureshi MD Unavailable [phone] Sammy Villa MD Unavailable [phone] Encounter Details Date Type Department Care Team (Late st Contact Info) Description 03/01/2011 [facility] [address] [address] Rodolfo Cline Social History Tobacco Use Types Packs/Day Years Used Date Smoking Tobacco: Never Alcohol Use Standard Drinks/Week Comments No 0 (1 standard drink = 0.6 oz pur e alcohol) Comments No Sex and Gender Information Value Date Recorded Sex Assigned at Female 01/16/2019 8:38 AM CDT Legal Sex Female 3:11 AM PIERCER OPERATOR Gender Identity Female 01/16/2019 8:38 AM CDT Sexual Orientation Choose not to disclose 2021 11:32 AM PIERCER OPERATOR documented as of this encounter Plan of Treatment Upcoming Encounters Date Type Department Care Team (Late st Contact Info) Description 10/08/2024 3:30 PM CDT Office Visit [facility] [address] [place] [address] [place] [address] [place] [address] documented as of this encounter Visit Diagnoses Not on filedocumented in this encounter Care Teams Cigar Packer Relationship Specialty Start Date End Date Daniel Plaza MD [address] [place] [address] PCP - General 06/29/10 12/23/20 Daniel Plaza MD [address] [place] [phone] PCP - Assigned PCP 02/05/08 06/13/18 [place] [address] [place] [address] PCP - General Family Medicine 12/24/20 Daniel Plaza MD [address] [place] [phone] Assigned PCP 01/13/12 01/03/21 Stan Barnes MD 9 [place] [address] Assigned Surgical Provider 02/01/20 07/19/20 [place] [address] [place] [address] Assigned PCP 01/04/21 Stan Barnes MD [address] [place] [address] 372275 Assigned Surgical Provider 08/30/21 08/31/23 Trent Qureshi MD [facility] [address] [place] [address] 490625 Orthopaedic Surgery 09/16/21 Sammy Villa MD 420 [facility] 96 [place], [place] [address] Assigned Neuroscience Provider 10/01/24 documented as of this encounter
--- OUTSIDE RECORDS SUMMARY | 2024-10-05 13:20 | XMS_ITS | Encounter Summary ---
Author Organization [place] Address [address] [place] [address] Care Team Providers Care Community Relations Advisor Name Role Phone Daniel Plaza MD Primary Care Provider Daniel Plaza MD Unavailable Daniel Plaza MD Unavailable Stan Barnes MD Unavailable [phone] Herb Herman MD Primary Care Provider [phone] Herb Herman MD Unavailable Stan Barnes MD Unavailable [phone] Trent Qureshi MD Unavailable [phone] Sammy Villa MD Unavailable Encounter Details Date Type Department Care Team (Late st Contact Info) Description 05/18/2007 [facility] Medical Advice [facility] [address] [address] Daniel Plaza MD [address] [phone] Social History Tobacco Use Types Packs/Day Years Used Date Smoking Tobacco: Never Alcohol Use Standard Drinks/Week Comments Yes 0 (1 standard drink = 0.6 oz pur e alcohol) social Comments No Sex and Gender Information Value Date Recorded Sex Assigned at Female 01/16/2019 8:38 AM CDT Legal Sex Female 3:11 AM RN ORTHOPEDIC Gender Identity Female 01/16/2019 8:38 AM CDT Sexual Orientation Choose not to disclose 2021 11:32 AM RN ORTHOPEDIC documented as of this encounter Plan of Treatment Upcoming Encounters Date Type Department Care Team (Late st Contact Info) Description 10/08/2024 3:30 PM CDT Office Visit [facility] [address] [place] [address] [place] [address] [place] [address] documented as of this encounter Visit Diagnoses Not on filedocumented in this encounter Care Teams Community Relations Advisor Relationship Specialty Start Date End Date Daniel Plaza MD [address] [place] [address] PCP - General 06/29/10 12/23/20 Daniel Plaza MD [address] [place] [address] PCP - Assigned PCP 02/05/08 06/13/18 [place] [address] [place] [address] PCP - General Family Medicine 12/24/20 Daniel Plaza MD [address] [place] [phone] Assigned PCP 01/13/12 01/03/21 Stan Barnes MD 909 [place] [address] Assigned Surgical Provider 02/01/20 07/19/20 [place] [address] [place] [address] Assigned PCP 01/04/21 Stan Barnes MD [address] [place] [address] Assigned Surgical Provider 08/30/21 08/31/23 Trent Qureshi MD [facility] [address] [place] [address] Orthopaedic Surgery 09/16/21 Smamy Villa MD [address] [place] [address] Assigned Neuroscience Provider 10/01/24 documented as of this encounter
--- OUTSIDE RECORDS SUMMARY | 2024-10-05 13:20 | XMS_ITS | Encounter Summary ---
Author Organization [place] Address [address] [place] [address] Care Team Providers Care Drawing Instructor Name Role Phone Daniel Torres MD Primary Care Provider Daniel Torres MD Unavailable [phone] Daniel Torres MD Unavailable Stan Barnes MD Unavailable [phone] Herb Herman MD Primary Care Provider Herb Herman MD Unavailable Stan Barnes MD Unavailable [phone] Trent Qureshi MD Unavailable [phone] Sammy Villa MD Unavailable [phone] Encounter Details Date Type Department Care Team (Late st Contact Info) Description 09/08/2007 [facility] [address] [address] Daniel Torres MD [address] [address] DJD ; HYPERLIPIDEMIA Social History Tobacco Use Types Packs/Day Years Used Date Smoking Tobacco: Never Alcohol Use Standard Drinks/Week Comments Yes 0 (1 standard drink = 0.6 oz pur e alcohol) social Comments No Sex and Gender Information Value Date Recorded Sex Assigned at Female 01/16/2019 8:38 AM CDT Legal Sex Female 3:11 AM PEDIATRIC REGISTERED NURSE Gender Identity Female 01/16/2019 8:38 AM CDT Sexual Orientation Choose not to disclose 2021 11:32 AM PEDIATRIC REGISTERED NURSE documented as of this encounter Miscellaneous Notes * Telephone Encounter - Vero Carr - 09/08/2007 2:01 PM CDTMessage from [facility]: Original authorizing provider: Savanna VILLALOBOS would like a refill of the following medications: SIMVASTATIN 80 MG OR TABS [DANIEL TORRES M.D.] CELEBREX 200 MG OR CAPS [DANIEL TORRES M.D.] Preferred pharmacy: [facility] Comment: I have requested my medications for the past two days. I have not received a response. With the weekend coming it sometimes takes longer for the pharmacy to fill the prescription. Please advise documented in this encounter Plan of Treatment Upcoming Encounters Date Type Department Care Team (Late st Contact Info) Description 10/08/2024 3:30 PM CDT Office Visit [address] [address] [place]b Herman [place] [address] [place] [address] documented as of this encounter Visit Diagnoses Diagnosis DJD Generalized osteoarthrosis, unspecified site HYPERLIPIDEMIA Other and unspecified hyperlipidemia documented in this encounter Care Teams Drawing Instructor Relationship Specialty Start Date End Date Daniel Torres MD [address] [place] [phone] PCP - General 06/29/10 12/23/20 Daniel Torres MD [address] [address] PCP - Assigned PCP 02/05/08 06/13/18 [place] [address] [place] [address] PCP - General Family Medicine 12/24/20 Daniel Torres MD [address] [place] [phone] Assigned PCP 01/13/12 01/03/21 Stan Barnes MD [address] [place] [address] Assigned Surgical Provider 02/01/20 07/19/20 [place] [address] [place] [address] Assigned PCP 01/04/21 Stan Barnes MD [address] [place] [address] Assigned Surgical Provider 08/30/21 08/31/23 Trent Qureshi MD [facility] [address] [address] Orthopaedic Surgery 09/16/21 Sammy Villa MD [address] [place] [address] 96 [place] [address] Assigned Neuroscience Provider 10/01/24 documented as of this encounter
--- OUTSIDE RECORDS SUMMARY | 2024-10-05 13:20 | XMS_ITS | Encounter Summary ---
Author Organization [place] Address [address] [place] [address] Care Team Providers Care Neurodiagnostic Tech Name Role Phone Daniel Plaza MD Primary Care Provider Daniel Plaza MD Unavailable Daniel Plaza MD Unavailable Stan Barnes MD Unavailable [phone] Herb Herman MD Primary Care Provider [phone] Herb Herman MD Unavailable Stan Barnes MD Unavailable [phone] Trent Qureshi MD Unavailable [phone] Sammy Villa MD Unavailable [phone] Encounter Details Date Type Department Care Team (Late st Contact Info) Description 01/31/2006 [facility] [address] [address] Daniel Plaza MD [address] [phone] Social History Tobacco Use Types Packs/Day Years Used Date Smoking Tobacco: Never Alcohol Use Standard Drinks/Week Comments Yes 0 (1 standard drink = 0.6 oz pur e alcohol) social Comments No Sex and Gender Information Value Date Recorded Sex Assigned at Female 01/16/2019 8:38 AM CDT Legal Sex Female 3:11 AM VICE PRESIDENT TAX Gender Identity Female 01/16/2019 8:38 AM CDT Sexual Orientation Choose not to disclose 2021 11:32 AM VICE PRESIDENT TAX documented as of this encounter Plan of Treatment Upcoming Encounters Date Type Department Care Team (Late st Contact Info) Description 10/08/2024 3:30 PM CDT Office Visit [facility] [address] [place] [address] [place] [address] [place] [address] documented as of this encounter Visit Diagnoses Not on filedocumented in this encounter Care Teams Neurodiagnostic Tech Relationship Specialty Start Date End Date Daniel Plaza MD [address] [place] [phone] PCP - General 06/29/10 12/23/20 Daniel Plaza MD [address] [place] [phone] PCP - Assigned PCP 02/05/08 06/13/18 [place] [address] [place] [address] PCP - General Family Medicine 12/24/20 Daniel Plaza MD [address] [place] [phone] Assigned PCP 01/13/12 01/03/21 Stan Barnes MD 909 [place] [address] Assigned Surgical Provider 02/01/20 07/19/20 [place] [address] [place] [address] Assigned PCP 01/04/21 Stan Barnes MD [address] [place] [address] Assigned Surgical Provider 08/30/21 08/31/23 Trent Qureshi MD [facility] [address] [place] [address] Orthopaedic Surgery 09/16/21 Sammy Villa MD [address] [place] [address] Assigned Neuroscience Provider 10/01/24 documented as of this encounter
--- OUTSIDE RECORDS SUMMARY | 2024-10-05 13:20 | XMS_ITS | Encounter Summary ---
Author Organization [place] Address [address] [place] [address] Care Team Providers Care Sleeve Tailor Name Role Phone Daniel Plaza MD Primary Care Provider Daniel Plaza MD Unavailable Daniel Plaza MD Unavailable Stan Barnes MD Unavailable [phone] Herb Herman MD Primary Care Provider Herb Herman MD Unavailable Stan Barnes MD Unavailable [phone] Trent Qureshi MD Unavailable [phone] Sammy Villa MD Unavailable [phone] Encounter Details Date Type Department Care Team (Late st Contact Info) Description 06/23/2011 MyC Medical Advice [facility] [address] [address] Daniel Plaza MD [address] [phone] Social History Tobacco Use Types Packs/Day Years Used Date Smoking Tobacco: Never Smokeless Tobacco: Never Alcohol Use Standard Drinks/Week Comments No 0 (1 standard drink = 0.6 oz pur e alcohol) Comments No Sex and Gender Information Value Date Recorded Sex Assigned at Female 01/16/2019 8:38 AM CDT Legal Sex Female 3:11 AM SLICING MACHINE FEEDER Gender Identity Female 01/16/2019 8:38 AM CDT Sexual Orientation Choose not to disclose 2021 11:32 AM SLICING MACHINE FEEDER documented as of this encounter Plan of Treatment Upcoming Encounters Date Type Department Care Team (Late st Contact Info) Description 10/08/2024 3:30 PM CDT Office Visit [facility] [address] [place] [address] [place] [address] [place] [address] documented as of this encounter Visit Diagnoses Not on filedocumented in this encounter Care Teams Sleeve Tailor Relationship Specialty Start Date End Date Daniel Plaza MD [address] [place] [address] PCP - General 06/29/10 12/23/20 Daniel Plaza MD [address] [place] [address] PCP - Assigned PCP 02/05/08 06/13/18 [place] [address] [place] [address] PCP - General Family Medicine 12/24/20 Daniel Plaza MD [address] [place] [address] Assigned PCP 01/13/12 01/03/21 Stan Barnes MD [address] [place] [address] Assigned Surgical Provider 02/01/20 07/19/20 [place] [address] [place] [address] Assigned PCP 01/04/21 Stan Barnes MD [address] [place] [address] Assigned Surgical Provider 08/30/21 08/31/23 Trent Qureshi MD [facility] [address] [place] [address] Orthopaedic Surgery 09/16/21 Sammy Villa MD [address] [place] [address] 96 [place] [address] Assigned Neuroscience Provider 10/01/24 documented as of this encounter
--- OUTSIDE RECORDS SUMMARY | 2024-10-05 13:20 | XMS_ITS | Encounter Summary ---
Author Organization [place] Address [address] [place] [address] Care Team Providers Care White Goods Appliance Tech Name Role Phone Daniel Plaza MD Primary Care Provider Daniel Plaza MD Unavailable Daniel Plaza MD Unavailable Stan Barnes MD Unavailable [phone] Herb Herman MD Primary Care Provider Herb Herman MD Unavailable Stan Barnes MD Unavailable [phone] Trent Qureshi MD Unavailable [phone] Sammy Villa MD Unavailable [phone] Encounter Details Date Type Department Care Team (Latest Contact Info) Description 01/24/2016 [facility] [address] [address] Daniel Plaza MD [address] [address] Spinal stenosis of lumbar region [...] AM CDT Legal Sex Female 3:11 AM STRAND GALVANIZER Gender Identity Female 01/16/2019 8:38 AM CDT Sexual Orientation Choose not to disclose 2021 11:32 AM STRAND GALVANIZER documented as of this encounter Plan of Treatment Upcoming Encounters Date Type Department Care Team (Late st Contact Info) Description 10/08/2024 3:30 PM CDT Office Visit [facility] [address] [place] [phone] [place] [address] [place] [address] documented as of this encounter Visit Diagnoses Diagnosis Spinal stenosis of lumbar region with neurogenic claudication- Primary Spinal stenosis, lumbar region, with neurogenic claudication documented in this encounter Additional Health Concerns Assessment Noted Time PHQ-9 Depression Total Score: 0 12/23/19 16 7:14 AM CDT documented as of this encounter Care Teams White Goods Appliance Tech Relationship Specialty Start Date End Date Daniel Plaza MD [address] [place] [phone] PCP - General 06/29/10 12/23/20 Daniel Plaza MD [address] [place] [address] PCP - Assigned PCP 02/05/08 06/13/18 [place] [address] [place] [address] PCP - General Family Medicine 12/24/20 Daniel Plaza MD [address] [place] [phone] Assigned PCP 01/13/12 01/03/21 Stan Barnes MD [address] [place] [address] Assigned Surgical Provider 02/01/20 07/19/20 [place] [address] [place] [address] Assigned PCP 01/04/21 Stan Barnes MD [address] [place] [address] Assigned Surgical Provider 08/30/21 08/31/23 Trent Qureshi MD [facility] [address] [place] [address] Orthopaedic Surgery 09/16/21 Sammy Villa MD [address] [place] [address] 96 [place] [address] Assigned Neuroscience Provider 10/01/24 documented as of this encounter
--- OUTSIDE RECORDS SUMMARY | 2024-10-05 13:20 | XMS_ITS | Encounter Summary ---
Author Organization [place] Address [address] [place] [address] Care Team Providers Care Appliance Installer Name Role Phone Daniel Plaza MD Primary Care Provider [phone] Daniel Plaza MD Unavailable [phone] Daniel Plaza MD Unavailable Stan Barnes MD Unavailable [phone] Herb Herman MD Primary Care Provider [phone] Herb Herman MD Unavailable Stan Barnes MD Unavailable [phone] Trent Stratton MD Unavailable [phone] Sammy Villa MD Unavailable Encounter Details Date Type Department Care Team (Late st Contact Info) Description 03/01/2003 [facility] [address] [address] Daniel Plaza MD [address] [phone] OP REPT (Primary Dx) Social History Tobacco Use Types Packs/Day Years Used Date Smoking Tobacco: Never Passive Smoke Exposure: Never Smokeless Tobacco: Never Alcohol Use Standard Drinks/Week Comments Never 0 (1 standard drink = 0.6 oz pur e alcohol) Comments No Sex and Gender Information Value Date Recorded Sex Assigned at Female 01/16/2019 8:38 AM CDT Legal Sex Female 3:11 AM COATING OPERATOR Gender Identity Female 01/16/2019 8:38 AM CDT Sexual Orientation Choose not to disclose 2021 11:32 AM COATING OPERATOR 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 file documented as of this encounter Progress Notes * 03/01/2003 11:59 PM [id number] 00:00 Operative Report-[facility] TRENT STRATTON () [Entered: 00:00 Transcr iption ([facility])] 1st ASS'T: Alexander Gamble CST 2nd [...] STRATTON MD D: 06:24 MT: sb Document: [id number] [place], [place] Name: MICHAEL LAMAR OPERATIVE REPORT Page 2 of 2 LCN: 57 DSC: [place], [place] Name: MICHAEL LAMAR MR#: : Procedure Date: -98 1945 03/01/2003 Surgeon: TRENT STRATTON MD OPERATIVE REPORT Page 1 of 2 Electronically filed by Hu Porter 03/06/2003 10:43 AM documented in this encounter Plan of Treatment Upcoming Encounters Date Type Department Care Team (Late st Contact Info) Description 10/08/2024 3:30 PM CDT Office Visit [address] [phone] Herb Herman MD [address] [place] [address] documented as of this encounter Visit Diagnoses Diagnosis OP REPT- Primary documented in this encounter Care Teams Appliance Installer Relationship Specialty Start Date End Date Daniel Plaza MD [address] [place] [phone] PCP - General 06/29/10 12/23/20 Daniel Plaza MD [address] [place] [address] PCP - Assigned PCP 02/05/08 06/13/18 [place] [address] [place] [address] PCP - General Family Medicine 12/24/20 Daniel Plaza MD [address] [place] [address] Assigned PCP 01/13/12 01/03/21 Stan Barnes MD [address] [place] [address] Assigned Surgical Provider 02/01/20 07/19/20 [place] [address] [place] [address] Assigned PCP 01/04/21 Stan Barnes MD 909 [place] [address] Assigned Surgical Provider 08/30/21 08/31/23 Trent Stratton MD [facility] [address] 772875 Orthopaedic Surgery 09/16/21 Sammy Villa MD [address] [place] [address] Assigned Neuroscience Provider 10/01/24 documented as of this encounter
[2024-10-05 13:21] LABS: Potassium* 4.7 mmol/L (3.6-5.1)
--- OUTSIDE RECORDS SUMMARY | 2024-10-05 13:22 | XMS_ITS | Encounter Summary ---
Author Organization [place] Address [address] [place] [address] Care Team Providers Care Cow Buyer Name Role Phone Herb Herman MD Primary Care Provider Herb Herman MD Unavailable Stan Barnes MD Unavailable [phone] Trent Qureshi MD Unavailable [phone] Sammy Villa MD Unavailable [phone] Encounter Details Date Type Department Care Team (Late st Contact Info) Description 07/23/2021 MyC Medical Advice [address] [address] Brooke Barnes Social History Tobacco [...] How often do you attend chur or holiness services? More than 4 times per year 06/08/2021 Do you belong to any clubs o r organizations such as jehovah's witness groups, unions, fraternal or athletic groups, or [...] 0 06/24/2021 [facility] - Occupational Stress Questionnaire Answer Date [...] place to sleep or slept in a usp (including now)? No 06/08/2021 Comments No Sex and Gender Information Value Date Recorded Sex Assigned at Female 01/16/2019 8:38 AM CDT Legal Sex Female 3:11 AM SENIOR PROJECT ACCOUNTANT Gender Identity Female 01/16/2019 8:38 AM CDT Sexual Orientation Choose not to disclose 2021 11:32 AM SENIOR PROJECT ACCOUNTANT Occupation Industry Job Start Date Job End [...] Description 10/08/2024 3:30 PM CDT Office Visit [facility] [address] [place] [phone] [place] [address] [place] [address] documented as of this encounter Visit Diagnoses Not on filedocumented in this encounter Additional Health Concerns Assessment Noted Time PHQ-9 Depression Total Score: 0 06/10/19 22 7:01 AM SENIOR PROJECT ACCOUNTANT documented as of this encounter Care Teams Cow Buyer Relationship Specialty [place] [address] [place] [address] PCP - General Family Medicine 12/24/20 [place] [address] [place] [address] Assigned PCP 01/04/21 Stan Barnes MD 909 [place], [place] 521125 Assigned Surgical Provider 08/30/21 08/31/23 Trent Qureshi MD [facility] [address] [place] [address] 369745 Orthopaedic Surgery 09/16/21 Sammy Villa MD [address] [facility] 96 [place], [place] [address] Assigned Neuroscience Provider 10/01/24 documented as of this encounter
--- OUTSIDE RECORDS SUMMARY | 2024-10-05 13:22 | XMS_ITS | Clinical Summary ---
Author Organization [facility] Address [address] [place] [address] Care Team Providers Care Manager Pmo Name Role Phone Herb Herman MD Primary Care Provider [phone] Herb Herman MD Unavailable Trent Qureshi MD Unavailable [phone] [facility] Unavailable [phone] Allergies Active Allergy Reactions Criticality Noted Date [...] tablet 3 025 Active vitamin D2 (ERGOCALCIFEROL) 82398 units (1250 mcg) capsuleIndication s:Type 2 diabetes [...] (01/02/2016): Seen incidentally on CT done at [facility] Major 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 6 Spinal [...] to review. 03/01/2011 Full code 03/08/2011 [facility] 12/15/2010 09/26/2023 Overview (07/17/2012): X DX V65.8 REPLACED WITH [facility] (07/17/2012) Major 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 11/05/2004 05/03/2023 Encounters Date Type Department Care Team Description 09/26/2024 10:15 AM CDT Radiology Injection Office Visit [facility] [address] [place] [address] Sammy Villa MD Burton, Annie L, MD Lumbar radiculopathy (Primary Dx); Lumbar stenosis with neurogenic claudication 09/26/2024 Travel 09/23/2024 Refill [facility] [address] [place] [address] Herb Herman MD Medication Refill 09/20/2024 Telephone [facility] [address] [place] [phone] Pain Management Program, [facility] Procedure (L3-4 or L4-5 Interlaminar ARTHUR) 09/19/2024 2:20 PM CDT Office Visit [facility] [address] [facility] [address] [place] [phone] Douglas Hernandez MD Helland, Logan C, MD Lumbar stenosis with neurogenic claudication (Primary Dx); Chronic bilateral low back pain with bilateral sciatica 09/19/2024 MyC Medical Advice [facility] [place] [facility] [address] [place] [address], [address] [place] [address] Ana Larsen RN 09/19/2024 Travel 09/19/2024 PRE VISIT [facility] [place] [address] [facility] [address] [place] [phone] Sammy Villa MD Previsit 09/11/2024 Transcribe Orders GENERIC EXTERNAL DATA DEPARTMENT Douglas Hernandez MD Low back pain (Primary Dx) 09/10/2024 12:05 AM CDT Ancillary Procedure [facility] [address] [place] [phone] Non-Fv Credentialed Provider, Radiology 09/10/2024 Ancillary Procedure [facility] [address] [place] [phone] Non-Fv Credentialed Provider, Radiology 09/10/2024 Medical Correspondence [facility] Information Management [address] [facility] [address] [place] [address] Scan, Non-Provider from Last 3 Months Immunizations [...] Brother 2 Alive Father Mother Paternal Grandfather DC Sister Alive lashanda knee replace ments Son [...] 06/08/2021 How often do you attend [facility] or latter-day services? 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 file Last Filed Vital Signs Vital Sign Reading Time Taken Comments Blood Pressure 142/76 09/26/2024 11:00 AM CDT Pulse 63 09/26/2024 11:00 AM CDT Temperature 36.4 C (97.6 F) 05/02/2024 11:00 AM ROVING TELLER Respiratory Rate 20 05/02/2024 11:00 AM ROVING TELLER Oxygen Saturation 97% 09/26/2024 11:00 AM CDT Inhaled Oxygen Concentration - - Weight 105.2 kg (232 lb) 09/19/2024 1:43 PM CDT Height 162.6 cm (5' 4) 09/19/2024 1:43 PM CDT Body Mass Index 39.82 09/19/2024 1:43 PM CDT Plan of Treatment Upcoming Encounters Date Type Department Care Team (Late st Contact Info) Description 10/08/2024 3:30 PM CDT Office Visit [address] [address] [place] [address] [place], [place] [phone] Health Maintenance Due Date Last Done Comments [...] (Cologuard) Discontinued Medical Devices Implanted Type Area Corporate Security Officer Device Identifier Shelf Expiration Date Model / Serial / Lot Imp Scr Zim 6.5x30mm Acet Cup Self Tap [id number] - [id number] Implanted:Qty : 1 on 09/21/2021 by Anderson George MD at [facility] Metallic Hardware/Anc hor Right: Hip [employer] 06/19/203179-1449-871- 30 / / [id number] Imp Scr Zim 6.5x30mm Acet Cup Self Tap [id number] - [id number] Implanted:Qty : 1 on 12/21/2021 by Anderson George MD at [facility] Metallic Hardware/Anc hor Left: Hip [employer] 06/19/203197-7052-358- 30 / / [id number] Imp Shell Biom G7 Acetab Pps Billy Hole 52mm Sz E [id number] - [id number] Implanted:Qty : 1 on 09/21/2021 by Anderson George MD at [facility] Total Joint Component/In sert Right: Hip [employer] 07/10/2031 [id number] / / [id number] Liner Actb G7 E 36mm Lngvt Hip Strl Lum Lf [id number] - [id number] Implanted:Qty : 1 on 09/21/2021 by Anderson George MD at [facility] Total Joint Component/In sert Right: Hip [employer] 12/16/[id number] / / [id number] Imp Stem Femoral Biom Echo Std Offset [id number] - [id number] Implanted:Qty : 1 on 09/21/2021 by Anderson George MD at [facility] Total Joint Component/In sert Right: Hip [employer] 01/16/2031 [id number] / / [id number] Head Fem -3mm Ofst 36mm Hip Actb Mdhemal Ty 1 Blx D [id number] - [id number] Implanted:Qty : 1 on 09/21/2021 by Anderson George MD at [facility] Total Joint Component/In sert Right: Hip [employer] 06/23/2031 [id number] / / [id number] Imp Shell Biom G7 Acetab Pps Billy Hole 52mm Sz E [id number] - [id number] Implanted:Qty : 1 on 12/21/2021 by Anderson George MD at [facility] Total Joint Component/In sert Left: Hip [employer] 10/30/2031 [id number] / / [id number] Imp Stem Femoral Biom Echo Std Offset [id number] - [id number] Implanted:Qty : 1 on 12/21/2021 by Anderson George MD at [facility] Total Joint Component/In sert Left: Hip [employer] 08/25/2031 [id number] / / [id number] Liner Actb G7 E 36mm Lngvt Hip Strl Lum Lf [id number] - [id number] Implanted:Qty : 1 on 12/21/2021 by Anderson George MD at [facility] Total Joint Component/In sert Left: Hip [employer] 08/30/2026 [id number] / / [id number] Head Fem -3mm Ofst 36mm Hip Actb Mdhemal Ty 1 Blx D [id number] - [id number] Implanted:Qty : 1 on 12/21/2021 by Anderson George MD at [facility] Total Joint Component/In sert Left: Hip [employer] 06/30/2031 [id number] / / [id number] Procedures Procedure Name Priority Date/Time Associated Diagnosis Comments MRI IMAGING - HIM SCAN 10/02/2024 12:[address] IMAGING - HIM SCAN 10/02/2024 12:00 AM CDT PAIN CAUDAL EPIDURAL INJECTION Routine 09/26/2024 10:40 AM CDT Lumbar radiculopathy XR EXTERNAL IMAGING SPINE Routine 09/10/2024 12:05 AM CDT XR EXTERNAL IMAGING SPINE Routine 09/10/2024 12:00 AM CDT TSH WITH FREE T4 REFLEX Add-On 05/02/2024 11:07 AM ROVING TELLER Acquired hypothyroidism HEMOGLOBIN A1C Routine 05/02/2024 11:07 AM ROVING TELLER Type 2 diabetes mellitus with diabetic neuropathy, [...] C FOOT EXAM Routine 04/27/2013 10:15 AM ROVING TELLER Type 2 diabetes, HbA1C goal < 7% (H) PHQ-9 DEPRESSION SCREENING ORDER Routine 03/08/2011 from Last 3 Months or Most Recently Relevant to Health Maintenance Results * MRI Imaging - HIM Scan (10/02/2024 12:00 AM CDT) Anatomical Region Laterality Modality Other 10/02/2024 us Provider Outside IMG MRI ORDERABLES Final Result * CT Imaging - HIM Scan (10/02/2024 12:00 AM CDT) Anatomical Region Laterality Modality Computed Tomogra phy 10/02/2024 us Provider Outside IMG CT ORDERABLES Final Result * PAIN Caudal Epidural Injection (09/26/2024 10:40 AM CDT) Anatomical Region Laterality Modality Radio Fluoroscop y Narrative 09/26/2024 10:53 AM CDT Table formatting from the original result was not included. Images from the original result were not included. [facility] - Procedure [...] the procedure. Diagnosis: Lumbar spondylosis; Lumbar radiculitis/radiculopathy Barrel Line Operator: Daniel Dunlap MD Anesthesia: none Indications: Angela [...] 7.1 MRI LUMBAR SPINE was done @ [facility] on 02/15/2024 and was reviewed - I [...] DUNLAP MD Pain Management Daniel Dunlap MD [facility] [place] ORDERABLES Final Result * XR [...] with free T4 reflex (05/02/2024 11:07 AM ROVING TELLER) Pathologist [facility] TSH 1.54 0.30 - 4.20 uIU/mL 05/03/2024 11:22 AM ROVING TELLER [facility] Blood BLOOD SPECIMEN / Unknown Venipuncture / Unknown 05/02/2024 11:07 AM ROVING TELLER 05/02/2024 11:07 AM ROVING TELLER Herb Herman MD LAB - BLOOD ORDERABLES Final Res ult [facility] [address] [facility] [place], [place] [address] * (ABNORMAL) HEMOGLOBIN A1C (05/02/2024 11:07 AM ROVING TELLER) Estimated Average Glucose 157(H) <117 mg/dL 05/02/2024 11:12 AM [facility] Hemoglobin A1C 7.1(H) 0.0 - 5.6 % 05/02/2024 11:12 AM ROVING TELLER LABORATORY Comment: Normal <5.7% Prediabetes 5.7-6.4% Diabetes 6.5% or higher Note: Adopted from ADA consensus guidelines. Blood BLOOD SPECIMEN / Unknown Venipuncture / Unknown 05/02/2024 11:07 AM ROVING TELLER 05/02/2024 11:07 AM ROVING TELLER Herb Herman MD LAB - BLOOD ORDERABLES Final Res ult LABORATORY [facility] [address] [facility] Lab (no room number, 1st floor of clinic) [place] [address], [place] * Albumin Random Urine Quantitative with Creat [...] control, and institution of therapy with an bhnrwywbfqc-ypjligfuqy-izuclq (TIFFANY) inhibitor (if the patient can tolerate it). Urine MID-STREAM URINE SPECIMEN / Unknown Non-blood Collection / Unknown 08/01/2023 9:56 AM CDT 08/01/2023 9:56 AM CDT us Herb Herman MD LAB - URINE ORDERABLES Final Res ult [facility] [address] [facility], [address] [place] [address], [place] * ALT (08/01/2023 9:51 AM CDT) ALT 12 0 - 50 U/L 08/01/2023 5:5 4 PM CDT [facility] Blood BLOOD SPECIMEN / Unknown Venipuncture / Unknown 08/01/2023 9:51 AM CDT 08/01/2023 9:51 AM CDT us Herb Herman MD LAB - BLOOD ORDERABLES Final Res ult [facility] LABORATORY [facility] Core Lab [address] [facility], [address] [place] [address] * (ABNORMAL) Basic metabolic panel (Ca, Cl, [...] 9:51 AM CDT 08/01/2023 9:51 AM CDT Herb Herman MD LAB - BLOOD ORDERABLES Final Res ult [facility] [address] [facility] [address] Building, [address] [place] [address] * MA Screening Digital Bilateral (07/26/2023 11:38 [...] cancer screen (FIT) (06/29/2023 9:00 AM CDT) [facility] Signature Occult Blood Screen FIT Negative Negative 07/06/2023 10:59 AM CDT SPECIALTY CORE/PROT/END O Stool RECTAL CONTENTS / Unknown Non-blood Collection / Unknown 06/29/2023 9:00 AM CDT 07/05/2023 1:19 PM CDT Herb Herman MD LAB - STOOLS ORDERABLES Final Re sult [facility] SPECIALTY CORE/PROT/ENDO [facility] Specialty Core/Prot/Endo [address], [address] [place] [address] * Eye Exam - HIM Scan (03/11/2023) [...] BLOOD ORDERABLES Final Res ult [facility] LABORATORY [facility] [address] [facility] [address] Building, [address] [place] [address], [place] [phone] * (ABNORMAL) Hemoglobin (01/18/2022 7:30 AM CDT) Hemoglobin 10.0(L) 11.7 - 15.7 g/dL 01/18/2022 7:52 AM CDT LABORATORY Blood STRUCTURE OF LEFT UPPER LIMB / Unknown Venipuncture / Unknown 01/18/2022 7:30 AM CDT 01/18/2022 7:43 AM CDT Anderson George MD LAB - BLOOD ORDERABL ES Final Result LABORATORY [facility] [address] 1[address] floor, [address] [place] [address], [place] [phone] * DX Hip/Pelvis/Spine w Lat Fraction Kath (07/21/2017 9:14 AM CDT) Anatomical Region Laterality Modality Dexa Bone Mineral Den sity Narrative 07/25/2017 10:30 AM CDT BONE DENSITOMETRY [facility] [address] [address] 07/21/2017 PATIENT: Angela Lamar CHART: [id number] : 1945 AGE: [age] year old SEX: female REFERRING PROVIDER: Daniel Plaza MD PROCEDURE: Bone density scanning was performed using DXA technology of the lumbar spine and hip. Scanning was performed on a [employer] scanner. Reporting is completed in the form [...] to another DXA performed on the same [employer] machine on 03/24 and 07/16. LATERAL VERTEBRAL ASSESSMENT Procedure: Vertebral fracture assessment was performed in the lateral decubitus position using a TRDataigLast 2 Left densitometer. Indications for VFA: none listed Confounding [...] established for newborns, infants, and children NR [facility] Blood specimen (specimen) 09/23/2016 6:20 PM CDT 09/23/2016 6:21 PM CDT us Daniel Plaza MD LAB - BLOOD ORDERABLES Final Result [facility] [address] [place] [address] * PHQ-9 DEPRESSION SCREENING ORDER (03/08/2011) us Provider Abstract OTHER Final Result from Last 3 Months or Most Recently Relevant to Health Maintenance Insurance MEDICARE [employer] Advance Directives For more information, please contact: [phone] * Full Code (Latest Code Status on [...] patie nt/ legal decision maker Care Teams Manager Pmo Relationship Specialty Start Date End [place] [address] [place] [address] PCP - General Family Medicine 12/24/20 [place] [address] [place], [place] [phone] Assigned PCP 01/04/21 Trent Qureshi MD [facility] [address] [place] [address]145 Orthopaedic Surgery 09/16/21 Sammy Villa MD [address] [facility] [address] [place] [address] Assigned Neuroscience Provider 10/01/24
--- OUTSIDE RECORDS SUMMARY | 2024-10-05 13:22 | XMS_ITS | Encounter Summary ---
Author Organization [facility] Address Critical access hospital0 [facility] [place] [address] Care Team Providers Care Community Recreation Programmer Name Role Phone Herb Herman MD Primary Care Provider [phone] Herb Herman MD Unavailable Stan Barnes MD Unavailable [phone] Trent Qureshi MD Unavailable [phone] Sammy Villa MD Unavailable Encounter Details Date Type Department Care Team (Late st Contact Info) Description 08/04/2021 MyC Medical Advice [facility] [address] [place] [address] [place] [address] [place] [address] Social History Tobacco Use Types [...] Answer Date Recorded PHQ-2 Score 0 06/24/2021 [facility] of Occupat ional Health - Occupational [...] place to sleep or slept in a chcf (including now)? No 06/08/2021 Comments No Sex and Gender Information Value Date Recorded Sex Assigned at Female 01/16/2019 8:38 AM CDT Legal Sex Female 3:11 AM MACHINE MAINTENANCE TECHNICIAN Gender Identity Female 01/16/2019 8:38 AM CDT Sexual Orientation Choose not to disclose 2021 11:32 AM MACHINE MAINTENANCE TECHNICIAN Occupation Industry Job Start Date Job [...] PM CDT Office Visit [facility] [address] [place] [address] [place] [address] [place] [address] documented as of this encounter Visit Diagnoses Not on filedocumented in this encounter Additional Health Concerns Assessment Noted Time PHQ-9 Depression Total Score: 0 06/10/19 22 7:01 AM MACHINE MAINTENANCE TECHNICIAN documented as of this encounter Care Teams Community Recreation Programmer Relationship Specialty [place] [address] [place] [address] PCP - General Family Medicine 12/24/20 [place] [address] [place] [address] Assigned PCP 01/04/21 Stan Barnes MD [address] [place] [address]6555 Assigned Surgical Provider 08/30/21 08/31/23 Trent Qureshi MD [facility] [address] [place] [address] Orthopaedic Surgery 09/16/21 Sammy Villa MD [address] [place] [address] 96 [place], [place] [address] Assigned Neuroscience Provider 10/01/24 documented as of this encounter
--- OUTSIDE RECORDS SUMMARY | 2024-10-05 13:22 | XMS_ITS | Encounter Summary ---
Author Organization [facility] Address [address] [place] [address] Care Team Providers Care Fuel Truck Driver Name Role Phone Herb Herman MD Primary Care Provider Herb Herman MD Unavailable Stan Barnes MD Unavailable [phone] Trent Qureshi MD Unavailable [phone] Sammy Villa MD Unavailable [phone] Encounter Details Date Type Department Care Team (Late st Contact Info) Description 04/18/2023 MyC Medical Advice [address] [address] Brooke Barnes Social History Tobacco [...] 06/08/2021 How often do you attend [facility] or hindu services? More than 4 [...] Answer Date Recorded PHQ-2 Score 0 08/02/2022 [facility] of Occupat ional Health - [...] place to sleep or slept in a longterm (including now)? 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 file documented as of this encounter Plan of Treatment Upcoming Encounters Date Type Department Care Team (Late st Contact Info) Description 10/08/2024 3:30 PM CDT Office Visit [address] [address] Herb Herman MD [address] [place] [address] documented as of this encounter Visit Diagnoses Not on filedocumented in this encounter Additional Health Concerns Assessment Noted Time PHQ-9 Depression Total Score: 1 08/03/19 23 1:10 PM CDT documented as of this encounter Care Teams Fuel Truck Driver Relationship Specialty [place] [address] [place] [address] PCP - General Family Medicine 12/24/20 [place] [address] [place] [address] Assigned PCP 01/04/21 Stan Barnes MD [address] [place] [address] Assigned Surgical Provider 08/30/21 08/31/23 Trent Qureshi MD [facility] [address] [address] Orthopaedic Surgery 09/16/21 Sammy Villa MD [address] [place] [address] 96 [place] [address] Assigned Neuroscience Provider 10/01/24 documented as of this encounter
--- OUTSIDE RECORDS SUMMARY | 2024-10-05 13:22 | XMS_ITS | Encounter Summary ---
Author Organization [place] Address [facility] [place] [address] Care Team Providers Care Restaurant Team Member Name Role Phone Herb Herman MD Primary Care Provider [phone] Herb Herman MD Unavailable Stan Barnes MD Unavailable [phone] Trent Qureshi MD Unavailable [phone] Sammy Villa MD Unavailable Encounter Details Date Type Department Care Team (Late st Contact Info) Description 06/29/2021 MyC Medical Advice [facility] [address] [place] [address] [place] [address] [place] [address] Social History Tobacco Use Types [...] often do you attend chur ch or rastafari services? More than 4 times per year 06/08/2021 Do you belong to any clubs o r organizations such as yarsanism groups, unions, fraternal or athletic groups, or [...] Answer Date Recorded PHQ-2 Score 0 06/24/2021 [facility] of Occupat ional [...] AM CDT Legal Sex Female 3:11 AM BINDERY LEADPERSON Gender Identity Female 01/16/2019 8:38 AM CDT Sexual Orientation Choose not to disclose 2021 11:32 AM BINDERY LEADPERSON COVID-19 Exposure Response Date Recorded In the last month, have you been in contact with someone who was confirmed or suspected to have Coronavirus / COVID-19? No / Unsure 06/24/2021 10:22 AM CDT documented as of this encounter Plan of Treatment Upcoming Encounters Date Type Department Care Team (Late st Contact Info) Description 10/08/2024 3:30 PM CDT Office Visit [address] [address] [place] [address] [place] [address] documented as of this encounter Visit Diagnoses Not on filedocumented in this encounter Additional Health Concerns Assessment Noted Time PHQ-9 Depression Total Score: 0 06/10/19 22 7:01 AM BINDERY LEADPERSON documented as of this encounter Care Teams Restaurant Team Member Relationship Specialty [place] [address] [place] [address] PCP - General Family Medicine 12/24/20 [place] [address] [place] [address] Assigned PCP 01/04/21 Stan Barnes MD [address] [place] [address] Assigned Surgical Provider 08/30/21 08/31/23 Trent Qureshi MD [facility] [address] [place] [address] Orthopaedic Surgery 09/16/21 Sammy Villa MD [address] [place] [address] 96 [place] [address] Assigned Neuroscience Provider 10/01/24 documented as of this encounter
--- OUTSIDE RECORDS SUMMARY | 2024-10-05 13:22 | XMS_ITS | Encounter Summary ---
Author Organization [place] Address [facility] [place] [address] Care Team Providers Care Dress Operator Name Role Phone Herb Herman MD Primary Care Provider Herb Herman MD Unavailable Stan Barnes MD Unavailable [phone] Trent Qureshi MD Unavailable [phone] Sammy Villa MD Unavailable Encounter Details Date Type Department Care Team (Late st Contact Info) Description 07/16/2021 MyC Medical Advice [facility] [address] [place] [address] [place] [address] [place] [address] Social History Tobacco Use Types [...] often do you attend chur ch or latter-day services? More than 4 times per year 06/08/2021 Do you belong to any clubs o r organizations such as anabaptist groups, unions, fraternal or athletic groups, or [...] Answer Date Recorded PHQ-2 Score 0 06/24/2021 [facility] of Occupat ional Health [...] place to sleep or slept in a correction (including now)? No 06/08/2021 Comments No Sex and Gender Information Value Date Recorded Sex Assigned at Female 01/16/2019 8:38 AM CDT Legal Sex Female 3:11 AM SUPERVISOR OPEN HEARTH STOCKYARD Gender Identity Female 01/16/2019 8:38 AM CDT Sexual Orientation Choose not to disclose 2021 11:32 AM SUPERVISOR OPEN HEARTH STOCKYARD Occupation Industry Job Start Date Job End [...] Description 10/08/2024 3:30 PM CDT Office Visit [address] [address] [place] [id number] [place] [address] documented as of this encounter Visit Diagnoses Not on filedocumented in this encounter Additional Health Concerns Assessment Noted Time PHQ-9 Depression Total Score: 0 06/10/19 22 7:01 AM SUPERVISOR OPEN HEARTH STOCKYARD documented as of this encounter Care Teams Dress Operator Relationship Specialty [place] [address] [place] [address] PCP - General Family Medicine 12/24/20 [place] [address] [place] [address] Assigned PCP 01/04/21 Stan Barnes MD [address] [place] [address] Assigned Surgical Provider 08/30/21 08/31/23 Trent Qureshi MD [facility] [address] [place] [address] Orthopaedic Surgery 09/16/21 Sammy Villa MD 420 [facility] 96 [place] [address] Assigned Neuroscience Provider 10/01/24 documented as of this encounter
--- OUTSIDE RECORDS SUMMARY | 2024-10-05 13:22 | XMS_ITS | Encounter Summary ---
Author Organization [place] Address [address] [place] [address]. [place] [address] Care Team Providers Care Agency Sales Representative Name Role Phone Herb Herman MD Primary Care Provider Herb Herman MD Unavailable Stan Barnes MD Unavailable + [phone] Trent Qureshi MD Unavailable [phone] Sammy Villa MD Unavailable [phone] Encounter Details Date Type Department Care Team (Late st Contact Info) Description 08/10/2021 [facility] Medical Advice [facility] [address] 4th [place] [address] Rodolfo Cline Social History Tobacco [...] do you attend [facility] or shinto services? More than 4 times per year [...] Answer Date Recorded PHQ-2 Score 0 06/24/2021 [facility] of Occupat ional [facility] - Occupational Stress Questionnaire Answer Date [...] AM CDT Legal Sex Female 3:11 AM ARTS EDUCATION TEACHER Gender Identity Female 01/16/2019 8:38 AM CDT Sexual Orientation Choose not to disclose 2021 11:32 AM ARTS EDUCATION TEACHER Occupation Industry Job Start Date Job [...] Description 10/08/2024 3:30 PM CDT Office Visit [facility] [address] [place] [address] [place] [address] [place] [address] documented as of this encounter Visit Diagnoses Not on filedocumented in this encounter Additional Health Concerns Assessment Noted Time PHQ-9 Depression Total Score: 0 06/10/19 22 7:01 AM ARTS EDUCATION TEACHER documented as of this encounter Care Teams Agency Sales Representative Relationship Specialty [place] [address] [place], [place] 0296244 PCP - General Family Medicine 12/24/20 [place] [address] [place] [address] Assigned PCP 01/04/21 Stan Barnes MD [address] [place] [address] 606225 Assigned Surgical Provider 08/30/21 08/31/23 Trent Qureshi MD [facility] [address] [place] [address] 096635 Orthopaedic Surgery 09/16/21 Sammy Villa MD 420 [facility] 96 [place] [address] Assigned Neuroscience Provider 10/01/24 documented as of this encounter
--- OUTSIDE RECORDS SUMMARY | 2024-10-05 13:22 | XMS_ITS | Encounter Summary ---
Author Organization [place] Address [address] [place] [address]. [place] [address] Care Team Providers Care Well Reactivator Operator Name Role Phone Herb Herman MD Primary Care Provider Herb Herman MD Unavailable Stan Barnes MD Unavailable [phone] Trent Qureshi MD Unavailable [phone] Sammy Villa MD Unavailable [phone] Encounter Details Date Type Department Care Team (Late st Contact Info) Description 05/09/2023 MyC Medical Advice [facility] [address] [address] Stan Barnes MD [address] [place] [address] Social History Tobacco Use Types Packs/Day [...] How often do you attend chur or zoroastrian services? 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 file documented as of this encounter Plan of Treatment Upcoming Encounters Date Type Department Care Team (Late st Contact Info) Description 10/08/2024 3:30 PM CDT Office Visit [address] [address] [place]b Herman [place] [address] [place] [address] documented as of this encounter Visit Diagnoses Not on filedocumented in this encounter Additional Health Concerns Assessment Noted Time PHQ-9 Depression Total Score: 0 05/02/19 24 10:52 AM DANCE INSTRUCTOR documented as of this encounter Care Teams Well Reactivator Operator Relationship Specialty Start Date [place] Herb Herman [place] [id number] [place] [address] [id number] PCP - General Family Medicine 12/24/20 [place] [address] [place] [address] Assigned PCP 01/04/21 Stan Barnes MD [address] [place] [address] 528685 Assigned Surgical Provider 08/30/21 08/31/23 Trent Qureshi MD [facility] [address] [place] [address] 934575 Orthopaedic Surgery 09/16/21 Sammy Villa MD 420 [facility] 96 [place], [place] 5359[address] Assigned Neuroscience Provider 10/01/24 documented as of this encounter
--- OUTSIDE RECORDS SUMMARY | 2024-10-05 13:22 | XMS_ITS | Encounter Summary ---
Author Organization [place] Address [facility] [place] [address] Care Team Providers Care Trigonometry Teacher Name Role Phone Herb Herman MD Primary Care Provider [phone] Herb Herman MD Unavailable Stan Barnes MD Unavailable [phone] Trent Qureshi MD Unavailable [phone] Sammy Villa MD Unavailable Reason for Visit * Reason Onset Date Comments MyChart Communication 01/06/2023 Encounter Details Date Type Department Care Team (Latest Contact Info) Description 01/06/2023 MyC Medical Advice [facility] [address] [place] [address] [place] [address] [place] [address] MyChart Communication Social History Tobacco [...] How often do you attend chur or mu-ism services? More than 4 times per year 06/08/2021 Do you belong to any clubs o r organizations such as presybeterian groups, unions, fraternal or athletic groups, or [...] Answer Date Recorded PHQ-2 Score 0 08/02/2022 [facility] of Occupat ional Health - Occupational Stress [...] in a halfway (including now)? No 06/08/2021 Adolescent Education Answer Date Record ed Getting School Help Needed Not on file 01/04 Comments No Sex and Gender Information Value Date Recorded Sex Assigned at Female 01/16/2019 8:38 AM CDT Legal Sex Female 3:11 AM SENIOR PRODUCT CONSULTANT Gender Identity Female 01/16/2019 8:38 AM CDT Sexual Orientation Choose not to disclose 2021 11:32 AM SENIOR PRODUCT CONSULTANT Occupation Industry Job Start Date Job End [...] Office Visit [facility] [address] [place] [address] [place] [address] [place] [address] documented as of this encounter Visit Diagnoses Not on filedocumented in this encounter Additional Health Concerns Assessment Noted Time PHQ-9 Depression Total Score: 1 08/03/19 23 1:10 PM CDT documented as of this encounter Care Teams Trigonometry Teacher Relationship Specialty [place] [address] [place] [address] PCP - General Family Medicine 12/24/20 [place] [address] [place] [address] Assigned PCP 01/04/21 Stan Barnes MD [address] [place] [address] 306835 Assigned Surgical Provider 08/30/21 08/31/23 Trent Qureshi MD [facility] [address] [place] [address] 308605 Orthopaedic Surgery 09/16/21 Sammy Villa MD [address] [place] [address] 96 [place], [place] 220085 Assigned Neuroscience Provider 10/01/24 documented as of this encounter
--- OUTSIDE RECORDS SUMMARY | 2024-10-05 13:22 | XMS_ITS | Encounter Summary ---
Author Organization [place] Address [address] [place] [address] Care Team Providers Care Sanitarian Name Role Phone Herb Herman MD Primary Care Provider [phone] Herb Herman MD Unavailable Stan Barnes MD Unavailable + [phone] Trent Qureshi MD Unavailable [phone] Sammy Villa MD Unavailable [phone] Encounter Details Date Type Department Care Team (Late st Contact Info) Description 07/16/2022 [facility] Medical Advice [address] [address] Diane Moreno RN Social History [...] How often do you attend chur or moravian services? More than 4 times [...] Answer Date Recorded PHQ-2 Score 0 03/08/2022 [facility] of Occupat ional [facility] - Occupational Stress Questionnaire Answer Date Recorded [...] AM CDT Legal Sex Female 3:11 AM NOCTURNIST PHYSICIAN Gender Identity Female 01/16/2019 8:38 AM CDT Sexual Orientation Choose not to disclose 2021 11:32 AM NOCTURNIST PHYSICIAN Occupation Industry Job Start Date Job End [...] PM CDT Office Visit [facility] [address] [place] [address] [place] [address] [place] [address] documented as of this encounter Visit Diagnoses Not on filedocumented in this encounter Additional Health Concerns Assessment Noted Time PHQ-9 Depression Total Score: 0 03/08/20 22 10:26 AM NOCTURNIST PHYSICIAN documented as of this encounter Care Teams Sanitarian Relationship Specialty [place] [address] [place] [address] PCP - General Family Medicine 12/24/20 [place] [address] [place] [address] Assigned PCP 01/04/21 Stan Barnes MD [address] [place] [address] Assigned Surgical Provider 08/30/21 08/31/23 Trent Qureshi MD [facility] [address] [place] [address] Orthopaedic Surgery 09/16/21 Sammy Villa MD [address] [place] [address] Assigned Neuroscience Provider 10/01/24 documented as of this encounter
--- OUTSIDE RECORDS SUMMARY | 2024-10-05 13:22 | XMS_ITS | Encounter Summary ---
Author Organization [place] Address [address] [place] [address] Care Team Providers Care Mechanical Lead Name Role Phone Herb Herman MD Primary Care Provider Herb Herman MD Unavailable Stan Barnes MD Unavailable + [phone] Trent Qureshi MD Unavailable [phone] Sammy Villa MD Unavailable [phone] Encounter Details Date Type Department Care Team (Late st Contact Info) Description 06/27/2023 MyC Medical Advice [address] [address] Soraya Hutchinson CMA Social History [...] attend [facility] or christianity services? More than 4 times [...] 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 file documented as of this encounter Plan of Treatment Upcoming Encounters Date Type Department Care Team (Late st Contact Info) Description 10/08/2024 3:30 PM CDT Office Visit [address] [address] [place] [address] [place] [address] documented as of this encounter Visit Diagnoses Not on filedocumented in this encounter Additional Health Concerns Assessment Noted Time PHQ-9 Depression Total Score: 0 05/02/19 24 10:52 AM FAMILY SERVICES ASSISTANT documented as of this encounter Care Teams Mechanical Lead Relationship Specialty [place] [address] [place] [address] PCP - General Family Medicine 12/24/20 [place] [address] [place] [address] Assigned PCP 01/04/21 Stan Barnes MD [address] [place] [address] Assigned Surgical Provider 08/30/21 08/31/23 Trent Qureshi MD [facility] [address] [place] [place] [address] Orthopaedic Surgery 09/16/21 Sammy Villa MD [address] [place] [address] 96 [place] [address] Assigned Neuroscience Provider 10/01/24 documented as of this encounter
--- OUTSIDE RECORDS SUMMARY | 2024-10-05 13:22 | XMS_ITS | Encounter Summary ---
Author Organization [place] Address [address] [place] [address]. [place] [address] Care Team Providers Care Billboard Installer Name Role Phone Herb Herman MD Primary Care Provider [phone] Herb Herman MD Unavailable Stan Barnes MD Unavailable [phone] Trent Qureshi MD Unavailable [phone] Sammy Villa MD Unavailable Reason for Visit * Reason Onset Date Comments Medication Request 07/13/2021 Encounter Details Date Type Department Care Team (Late st Contact Info) Description 07/13/2021 MyC Medical Advice [facility] [address] [place] [address] [place]b Herman [place] [address] [place] [address] Medication Request Social History Tobacco Use [...] often do you attend chur ch or buddhism services? More than 4 times per year [...] Answer Date Recorded PHQ-2 Score 0 06/24/2021 [facility] of Occupat ional Health - Occupational [...] place to sleep or slept in a mcfp (including now)? No 06/08/2021 Comments No Sex and Gender Information Value Date Recorded Sex Assigned at Female 01/16/2019 8:38 AM CDT Legal Sex Female 3:11 AM SCRAPE GATHERER Gender Identity Female 01/16/2019 8:38 AM CDT Sexual Orientation Choose not to disclose 2021 11:32 AM SCRAPE GATHERER Occupation Industry Job Start Date Job End [...] Description 10/08/2024 3:30 PM CDT Office Visit [facility] [address] [place] [address] [place] [address] [place] [address] documented as of this encounter Visit Diagnoses Diagnosis Other chronic pain- Primary documented in this encounter Additional Health Concerns Assessment Noted Time PHQ-9 Depression Total Score: 0 06/10/19 22 7:01 AM SCRAPE GATHERER documented as of this encounter Care Teams Billboard Installer Relationship Specialty [place] [address] [place] [address] PCP - General Family Medicine 12/24/20 [place] [address] [place] [address] Assigned PCP 01/04/21 Stan Barnes MD [address] [place] [address] Assigned Surgical Provider 08/30/21 08/31/23 Trent Qureshi MD [facility] [address] [place] [address] 745305 Orthopaedic Surgery 09/16/21 Sammy Villa MD [address] [place] [address] Assigned Neuroscience Provider 10/01/24 documented as of this encounter
--- OUTSIDE RECORDS SUMMARY | 2024-10-05 13:22 | XMS_ITS | Encounter Summary ---
Author Organization [place] Address [facility] [place] [address] Care Team Providers Care Military Equipment Specialist Name Role Phone Herb Herman MD Primary Care Provider Herb Herman MD Unavailable Stan Barnes MD Unavailable [phone] Trent Qureshi MD Unavailable [phone] Sammy Villa MD Unavailable Reason for Visit * Reason Onset Date Comments MyChart Communication 07/14/2022 Encounter Details Date Type Department Care Team (Latest Contact Info) Description 07/14/2022 MyC Medical Advice [facility] [address] [place] [address] [place] [address] [place] [address] MyChart Communication Social History Tobacco [...] How often do you attend chur or gnosticism services? More than 4 times per year [...] Answer Date Recorded PHQ-2 Score 0 03/08/2022 [facility] of Occupat ional [facility] - Occupational Stress Questionnaire Answer [...] place to sleep or slept in a long term (including now)? No 06/08/2021 Comments No Sex and Gender Information Value Date Recorded Sex Assigned at Female 01/16/2019 8:38 AM CDT Legal Sex Female 3:11 AM FIRE ALARM REPAIRER Gender Identity Female 01/16/2019 8:38 AM CDT Sexual Orientation Choose not to disclose 2021 11:32 AM FIRE ALARM REPAIRER Occupation Industry Job Start Date Job End [...] Bueno RN - 07/14/2022 10:04 AM CDT [place] FFT message sent to patient, reply requested. Virginia Bueno R.N. documented in this encounter Plan of Treatment Upcoming Encounters Date Type Department Care Team (Late st Contact Info) Description 10/08/2024 3:30 PM CDT Office Visit [facility] [address] [place] [address] [place] [address] [place] [address] documented as of this encounter Visit Diagnoses Not on filedocumented in this encounter Additional Health Concerns Assessment Noted Time PHQ-9 Depression Total Score: 0 03/08/20 10:26 AM FIRE ALARM REPAIRER documented as of this encounter Care Teams Military Equipment Specialist Relationship Specialty [place] [address] [place] [address] PCP - General Family Medicine 12/24/20 [place] [address] [place] [address] Assigned PCP 01/04/21 Stan Barnes MD [address] [place] [address] 128025 Assigned Surgical Provider 08/30/21 08/31/23 Trent Qureshi MD [facility] [address] [place] [address] 856325 Orthopaedic Surgery 09/16/21 Sammy Villa MD [address] [place] [address] Assigned Neuroscience Provider 10/01/24 documented as of this encounter
--- OUTSIDE RECORDS SUMMARY | 2024-10-05 13:22 | XMS_ITS | Encounter Summary ---
Author Organization [place] Address [address] [place] [address] Care Team Providers Care Oim Consultant Name Role Phone Daniel Plaza MD Primary Care Provider [phone] Daniel Plaza MD Unavailable Daniel Plaza MD Unavailable [phone] Stan Barnes MD Unavailable [phone] Herb Herman MD Primary Care Provider Herb Herman MD Unavailable Stan Barnes MD Unavailable [phone] Trent Qureshi MD Unavailable [phone] Sammy Villa MD Unavailable Reason for Visit * Reason Onset Date Comments Sinus Problem 04/06/2017 Encounter Details Date Type Department Care Team (Late st Contact Info) Description 04/06/2017 MyC Medical Advice [facility] [address] [address] Daniel Plaza MD [address] [address] Sinus Problem Social History Tobacco Use Types Packs/Day Years Used Date Smoking Tobacco: Never Smokeless Tobacco: Never Alcohol Use Standard Drinks/Week Comments No 0 (1 standard drink = 0.6 oz pur e alcohol) Comments No Sex and Gender Information Value Date Recorded Sex Assigned at Female 01/16/2019 8:38 AM CDT Legal Sex Female 3:11 AM TIME ANALYSIS CLERK Gender Identity Female 01/16/2019 8:38 AM CDT Sexual Orientation Choose not to disclose 2021 11:32 AM TIME ANALYSIS CLERK documented as of this encounter Plan of Treatment Upcoming Encounters Date Type Department Care Team (Late st Contact Info) Description 10/08/2024 3:30 PM CDT Office Visit [facility] [address] [place] [address] [place] [address] [place] [address] documented as of this encounter Visit Diagnoses Diagnosis Acute sinusitis with symptoms > 10 days- Primary Acute sinusitis, unspecified documented in this encounter Additional Health Concerns Assessment Noted Time PHQ-9 Depression Total Score: 0 12/23/19 16 7:14 AM CDT documented as of this encounter Care Teams Oim Consultant Relationship Specialty Start Date End Date Daniel Plaza MD [address] [place] [address] PCP - General 06/29/10 12/23/20 Daniel Plaza MD [address] [place] [address] PCP - Assigned PCP 02/05/08 06/13/18 Herb Herman [place] [id number] [place] [address] PCP - General Family Medicine 12/24/20 Daniel Plaza MD [address] [place] [phone] Assigned PCP 01/13/12 01/03/21 Stan Barnes MD [address] [place] [address] Assigned Surgical Provider 02/01/20 07/19/20 [place] [address] [place] [address] Assigned PCP 01/04/21 Stan Barnes MD [address] [place] [address] Assigned Surgical Provider 08/30/21 08/31/23 Trent Qureshi MD [facility] [address] [place] [address] Orthopaedic Surgery 09/16/21 Sammy Villa MD [address] [place] [address] 96 [place] [address] Assigned Neuroscience Provider 10/01/24 documented as of this encounter
[2024-10-05 13:23] LABS: Blood Urea Nitrogen* 28 mg/dL (7-30); Creatinine* 1.1 mg/dL (0.5-1.5); Est. Creatinine Clearance* 37.57; Estimated Glomerular Filt Rate 52 ml/min
--- OUTSIDE RECORDS SUMMARY | 2024-10-05 13:23 | XMS_ITS | Encounter Summary ---
Author Organization [place] [facility] [place] [facility] Address [address] [place] [address] Care Team Providers Care Rail Switch Operator Name Role Phone Herb Herman MD Primary Care Provider Herb Herman MD Unavailable Stan Barnes MD Unavailable [phone] Trent Qureshi MD Unavailable [phone] Sammy Villa MD Unavailable Encounter Details Date Type Department Care Team (Late st Contact Info) Description 09/15/2021 Orders Only [facility] [address] [place] [address] Manny Petersen MD [address] [place], [place] [phone] Encounter for laboratory testing for COVID-19 virus [...] any clubs o r organizations such as zoroastrian groups, unions, fraternal or athletic groups, or [...] Answer Date Recorded PHQ-2 Score 0 09/15/2021 [facility] Occupat ional Health - Occupational Stress [...] AM CDT Legal Sex Female 3:11 AM DIESEL ENGINE II PIPE FITTER Gender Identity Female 01/16/2019 8:38 AM CDT Sexual Orientation Choose not to disclose 2021 11:32 AM DIESEL ENGINE II PIPE FITTER Occupation Industry Job Start Date Job End [...] Description 10/08/2024 3:30 PM CDT Office Visit [address] [phone] Herb Herman MD [address] [place] [address] documented as of this encounter Results * [...] COVID-19. This test was validated by the [facility]. This laboratory is certified under the Clinical Laboratory Improvement Amendments of 1988 (CLIA-88) as qualified to perform high and/or moderate complexity laboratory testing. Manny Petersen MD LAB - MICRO GENERAL ORDERABLES F inal Result [facility] Inf. Diseases Diag. Lab [address] [facility], Room D297 [place] [phone] [phone] documented in this encounter Visit Diagnoses Diagnosis Encounter for laboratory testing for COVID-19 virus documented in this encounter Additional Health Concerns Assessment Noted Time PHQ-9 Depression Total Score: 1 08/23/19 22 7:03 AM CDT documented as of this encounter Care Teams Rail Switch Operator Relationship Specialty [place] [address] [place] [address] PCP - General Family Medicine 12/24/20 [place] [address] [place] [address] Assigned PCP 01/04/21 Stan Barnes MD [address] [place] [address] [id number] Assigned Surgical Provider 08/30/21 08/31/23 Trent Qureshi MD [facility] [address] [place] [address] 250045 Orthopaedic Surgery 09/16/21 Sammy Villa MD [address] [facility] 96 [place] [address] Assigned Neuroscience Provider 10/01/24 documented as of this encounter
--- OUTSIDE RECORDS SUMMARY | 2024-10-05 13:23 | XMS_ITS | Encounter Summary ---
Author Organization [place] Address [address] [place] [address]. [place] [address] Care Team Providers Care Wheel Lacer And Truer Name Role Phone Herb Herman MD Primary Care Provider [phone] Herb Herman MD Unavailable Stan Barnes MD Unavailable [phone] Trent Qureshi MD Unavailable [phone] Sammy Villa MD Unavailable [phone] Encounter Details Date Type Department Care Team (Late st Contact Info) Description 08/27/2021 My[facility] Medical Advice [address] 5th [place] [address] Rachelle Mai RN Social History [...] any clubs o r organizations such as samaritan groups, unions, fraternal or athletic groups, or [...] Answer Date Recorded PHQ-2 Score 0 08/25/2021 [facility]at ional [facility] - Occupational Stress Questionnaire Answer [...] a care home (including now)? No 06/08/2021 Comments No Sex and Gender Information Value Date Recorded Sex Assigned at Female 01/16/2019 8:38 AM CDT Legal Sex Female 3:11 AM MOTOR VEHICLE ASSEMBLY SUPERVISOR Gender Identity Female 01/16/2019 8:38 AM CDT Sexual Orientation Choose not to disclose 2021 11:32 AM MOTOR VEHICLE ASSEMBLY SUPERVISOR Occupation Industry Job Start Date Job [...] Description 10/08/2024 3:30 PM CDT Office Visit [address] [address] [place] [id number] [place] [address] [phone] documented as of this encounter Visit Diagnoses Not on filedocumented in this encounter Additional Health Concerns Assessment Noted Time PHQ-9 Depression Total Score: 1 08/23/19 22 7:03 AM CDT documented as of this encounter Care Teams Wheel Lacer And Truer Relationship Specialty [place] [address] [place], [place] [phone] PCP - General Family Medicine 12/24/20 [place] [address] [place] [address] Assigned PCP 01/04/21 Stan Barnes MD [address] [place] [address] 146365 Assigned Surgical Provider 08/30/21 08/31/23 Trent Qureshi MD [facility] [address] [place] [address] 817625 Orthopaedic Surgery 09/16/21 Sammy Villa MD [address] [facility] 96 [place] [address] Assigned Neuroscience Provider 10/01/24 documented as of this encounter
--- OUTSIDE RECORDS SUMMARY | 2024-10-05 13:23 | XMS_ITS | Encounter Summary ---
Author Organization [place] Address [address] [place] [address] Care Team Providers Care Tool Supervisor Name Role Phone Herb Herman MD Primary Care Provider [phone] Herb Herman MD Unavailable Trent Qureshi MD Unavailable [phone] Reason for Visit * Reason Onset Date Comments Previsit 09/19/2024 Encounter Details Date Type Department Care Team (Late st Contact Info) Description 09/19/2024 PRE VISIT [facility] [address] [place] [address] Sammy Villa MD 420 [facility] 96 [place] [address] Previsit Social History Tobacco Use [...] week 06/08/2021 How often do you attend [facility] or latter day services? More than 4 times per year 06/08/2021 Do you belong to any clubs o r organizations such as orthodoxy groups, unions, fraternal or athletic groups, or [...] Answer Date Recorded PHQ-2 Score 0 05/02/2024 [facility] of Occupat ional Health - [...] AM CDT Legal Sex Female 3:11 AM FITTER HAND Gender Identity Female 01/16/2019 8:38 AM CDT Sexual Orientation Choose not to disclose 2021 11:32 AM FITTER HAND Occupation Industry Job Start Date Job End [...] Description 10/08/2024 3:30 PM CDT Office Visit [facility] [address] [place] [address] [place] [address] [place] [address] documented as of this encounter Visit Diagnoses Not on filedocumented in this encounter Additional Health Concerns Assessment Noted Time PHQ-9 Depression Total Score: 0 05/02/19 25 10:13 AM FITTER HAND documented as of this encounter Care Teams Tool Supervisor Relationship Specialty [place] [address] [place] [address] PCP - General Family Medicine 12/24/20 [place] [address] [place] [address] Assigned PCP 01/04/21 Trent Qureshi MD [facility] [address] [place] [address] Orthopaedic Surgery 09/16/21 documented as of this encounter
--- OUTSIDE RECORDS SUMMARY | 2024-10-05 13:23 | XMS_ITS | Encounter Summary ---
Author Organization [place] Address [address] [place] [address]. [place] [address] Care Team Providers Care Ski Tow Operator Name Role Phone Herb Herman MD Primary Care Provider [phone] Herb Herman MD Unavailable Trent Qureshi MD Unavailable [phone] Reason for Visit * Reason Onset Date Comments Procedure 09/20/2024 L3-4 or L4-5 Int erlaminar ARTHUR Encounter Details Date Type Department Care Team (Late st Contact Info) Description 09/20/2024 [facility] [address] [place] [address] Pain Management Program, [facility] Procedure (L3-4 or L4-5 Interlaminar [...] How often do you attend [facility] or synagogue services? 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 [facility] If choosing [facility] for location, please inform patient: [facility] is a Hospital based clinic. Before your visit, you should check with your insurance about how it covers the charges for facility services in a hospital-based clinic.?? Procedure ordered by Dr. Villa Procedure ordered? L3-4 or L4-5 Interlaminar ARTHUR Transforaminal Cervical ARTHUR - Send to [facility] - No Community Site providers perform this procedure What insurance would patient like us to bill for this procedure? Medicare/Medica IF SCHEDULING IN [place] PAIN OR SPINE PLEASE SCHEDULE AT LEAST [...] to Marcy Lees Is patient scheduled at [facility]? No If YES, route every encounter to [facility] CARE NAVIGATION POOL [[phone]] Is an full time staff interpreter needed? No Patient has a trackless trolley driver home? (Review Grid) YES: ok Any chance of ? NO If YES, do NOT schedule and route to barrel lapper - Dr. Delgado route to PM&R Nurse [[id number]] Is patient actively being treated for cancer or immunocompromised? No If YES, do NOT schedule and route to barrel lapper/ Dr. Delgado's Team Does the patient have a bleeding or clotting disorder? No If YES, okay to schedule AND route to RN nurse / Dr. Delgado's Team (For any patients with platelet count <100, RN must forward to provider) Is patient taking any Blood Thinners OR Antiplatelet medication? No If hold needed, do NOT schedule, route to barrel lapper/ Dr. Delgado's Team Examples: Blood Thinners: (Coumadin, Warfarin, Jantoven, Pradaxa, Xarelto, Eliquis, Edoxaban, Enoxaparin, Lovenox, Heparin, Arixtra, Fondaparinux or Fragmin) Antiplatelet Medications: (Plavix, Brilinta or Effient) Is patient taking any aspirin products (includes: Aspirin 81 mg, Excedrin, and Fiorinal)? No. If yes route to barrel lapper/ Dr. Delgado's Team - Do not schedule [...] to appointment notes AND route to the barrel lapper/ Dr. Delgado's Team If ARTHUR and Contrast Dye / Iodine Allergy? DO NOT SCHEDULE, route to barrel lapper/ Dr. Delgado's Team Allergies: Morphine, Doxycycline, Atorvastatin, [...] Orders Needed Please send all injections to turbine blade assembler Not Applicable Red Flags? Not Applicable Does the patient have any questions? NO Renetta Castano [facility] * Addendum Note - Destiny Velazquez RN - 09/20/2024 2:37 PM CDTAddended by: DESTINY VELAZQUEZ on: 09/21/2024 12:19 PM Modules accepted: Orders documented in this encounter Plan of Treatment Upcoming Encounters Date Type Department Care Team (Late st Contact Info) Description 10/08/2024 3:30 PM CDT Office Visit [facility] [address] [place] [address] [place] [address] [place] [address] documented as of this encounter Visit Diagnoses Diagnosis Lumbar radiculopathy- Primary Thoracic or lumbosacral neuritis or radiculitis, unspecified documented in this encounter Additional Health Concerns Assessment Noted Time PHQ-9 Depression Total Score: 0 05/02/19 25 10:13 AM MIXING TUMBLER OPERATOR documented as of this encounter Care Teams Ski Tow Operator Relationship Specialty [place] [address] [place] [address] PCP - General Family Medicine 12/24/20 [place] [address] [place] [address] Assigned PCP 01/04/21 Trent Qureshi MD [facility] [address] [place] [address] Orthopaedic Surgery 09/16/21 documented as of this encounter
--- OUTSIDE RECORDS SUMMARY | 2024-10-05 13:23 | XMS_ITS | Encounter Summary ---
Author Organization [place] Address [address] [place] [address] Care Team Providers Care Straddle Bug Name Role Phone Daniel Plaza MD Primary Care Provider [phone] Daniel Plaza MD Unavailable Daniel Plaza MD Unavailable [phone] Stan Barnes MD Unavailable [phone] Herb Herman MD Primary Care Provider Herb Herman MD Unavailable Stan Barnes MD Unavailable [phone] Trent Qureshi MD Unavailable [phone] Sammy Villa MD Unavailable [phone] Encounter Details Date Type Department Care Team (Late st Contact Info) Description 04/28/2013 MyC Medical Advice [facility] [address] [address] Daniel Plaza MD [address] [phone] Social History Tobacco Use Types Packs/Day Years Used Date Smoking Tobacco: Never Smokeless Tobacco: Never Alcohol Use Standard Drinks/Week Comments No 0 (1 standard drink = 0.6 oz pur e alcohol) Comments No Sex and Gender Information Value Date Recorded Sex Assigned at Female 01/16/2019 8:38 AM CDT Legal Sex Female 3:11 AM KNIFE SHARPENER Gender Identity Female 01/16/2019 8:38 AM CDT Sexual Orientation Choose not to disclose 2021 11:32 AM KNIFE SHARPENER documented as of this encounter Plan of Treatment Upcoming Encounters Date Type Department Care Team (Late st Contact Info) Description 10/08/2024 3:30 PM CDT Office Visit [facility] [address] [place] [address] [place] [address] [place] [address] documented as of this encounter Visit Diagnoses Not on filedocumented in this encounter Care Teams Straddle Bug Relationship Specialty Start Date End Date Daniel Plaza MD [address] [place] [address] PCP - General 06/29/10 12/23/20 Daniel Plaza MD [address] [place] [address] PCP - Assigned PCP 02/05/08 06/13/18 [place] [address] [place] [address] PCP - General Family Medicine 12/24/20 Daniel Plaza MD [address] [place] [address] Assigned PCP 01/13/12 01/03/21 Stan Barnes MD [address] [place] [address] Assigned Surgical Provider 02/01/20 07/19/20 [place] [address] [place] [address] Assigned PCP 01/04/21 Stan Barnes MD [address] [place] [address] Assigned Surgical Provider 08/30/21 08/31/23 Trent Qureshi MD [facility] [address] [place] [address] Orthopaedic Surgery 09/16/21 Sammy Villa MD [address] [place] [address] 96 [place] [address] Assigned Neuroscience Provider 10/01/24 documented as of this encounter
--- OUTSIDE RECORDS SUMMARY | 2024-10-05 13:23 | XMS_ITS | Encounter Summary ---
Author Organization [place] Address [address] [place] [address] Care Team Providers Care Sensitizer Name Role Phone Herb Herman MD Primary Care Provider [phone] Herb Herman MD Unavailable Trent Qureshi MD Unavailable [phone] Encounter Details Date Type Department Care [...] Answer Date Recorded PHQ-2 Score 0 05/02/2024 [facility] - Occupational Stress Questionnaire Answer [...] AM CDT Legal Sex Female 3:11 AM QUALITY CONTROL TESTER Gender Identity Female 01/16/2019 8:38 AM CDT Sexual Orientation Choose not to disclose 2021 11:32 AM QUALITY CONTROL TESTER 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 file documented as of this encounter Plan of Treatment Upcoming Encounters Date Type Department Care Team (Late st Contact Info) Description 10/08/2024 3:30 PM CDT Office Visit [facility] [address] [place] [address] [place] [address] [place] [address] documented as of this encounter Visit Diagnoses Not on filedocumented in this encounter Additional Health Concerns Assessment Noted Time PHQ-9 Depression Total Score: 0 05/02/19 25 10:13 AM QUALITY CONTROL TESTER documented as of this encounter Care Teams Sensitizer Relationship Specialty [place] [address] [place] [address] PCP - General Family Medicine 12/24/20 [place] [address] [place] [address] Assigned PCP 01/04/21 Trent Qureshi MD [facility] [address] [place] [address] Orthopaedic Surgery 09/16/21 documented as of this encounter
--- OUTSIDE RECORDS SUMMARY | 2024-10-05 13:23 | XMS_ITS | Encounter Summary ---
Author Organization [place] Address [address] [place] [address] Care Team Providers Care Addiction Psychiatrist Name Role Phone Herb Herman MD Primary Care Provider Herb Herman MD Unavailable Trent Qureshi MD Unavailable [phone] Sammy Villa MD Unavailable Encounter Details Date Type Department Care Team (Late st Contact Info) Description 02/20/2024 [facility] Medical Advice [address] [address] Brooke Barnes Social History Tobacco [...] often do you attend chur ch or confucianist services? 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 file documented as of this encounter Plan of Treatment Upcoming Encounters Date Type Department Care Team (Late st Contact Info) Description 10/08/2024 3:30 PM CDT Office Visit [address] [address] [place] [address] [place] [address] documented as of this encounter Visit Diagnoses Not on filedocumented in this encounter Additional Health Concerns Assessment Noted Time PHQ-9 Depression Total Score: 0 05/02/19 24 10:52 AM JUTE BAG SEWER documented as of this encounter Care Teams Addiction Psychiatrist Relationship Specialty [place] [address] [place] [address] PCP - General Family Medicine 12/24/20 [place] [address] [place] [address] Assigned PCP 01/04/21 Trent Qureshi MD [facility] [address] [place] [address] 229415 Orthopaedic Surgery 09/16/21 Sammy Villa MD [address] [place] [address] 96 [place], [place] 124775 Assigned Neuroscience Provider 10/01/24 documented as of this encounter
--- OUTSIDE RECORDS SUMMARY | 2024-10-05 13:23 | XMS_ITS | Encounter Summary ---
Author Organization [place] Address [address] [place] [address] Care Team Providers Care Tool And Fixture Repairer Name Role Phone Daniel Plaza MD Primary Care Provider Daniel Plaza MD Unavailable [phone] Daniel Plaza MD Unavailable Stan Barnes MD Unavailable [phone] Herb Herman MD Primary Care Provider Herb Herman MD Unavailable Stan Barnes MD Unavailable [phone] Trent Qureshi MD Unavailable [phone] Sammy Villa MD Unavailable [phone] Encounter Details Date Type Department Care Team (Late st Contact Info) Description 12/24/2013 MyC Medical Advice [facility] [address] [address] Daniel Plaza MD [address] [phone] Social History Tobacco Use Types Packs/Day Years Used Date Smoking Tobacco: Never Smokeless Tobacco: Never Alcohol Use Standard Drinks/Week Comments No 0 (1 standard drink = 0.6 oz pur e alcohol) Comments No Sex and Gender Information Value Date Recorded Sex Assigned at Female 01/16/2019 8:38 AM CDT Legal Sex Female 3:11 AM MANAGER PAYER Gender Identity Female 01/16/2019 8:38 AM CDT Sexual Orientation Choose not to disclose 2021 11:32 AM MANAGER PAYER documented as of this encounter Plan of Treatment Upcoming Encounters Date Type Department Care Team (Late st Contact Info) Description 10/08/2024 3:30 PM CDT Office Visit [facility] [address] [place] [phone] [place] [address] [place] [address] documented as of this encounter Visit Diagnoses Not on filedocumented in this encounter Care Teams Tool And Fixture Repairer Relationship Specialty Start Date End Date Daniel Plaza MD [address] [place] [address] PCP - General 06/29/10 12/23/20 Daniel Plaza MD [address] [place] [address] PCP - Assigned PCP 02/05/08 06/13/18 [place] [address] [place] [address] PCP - General Family Medicine 12/24/20 Daniel Plaza MD [address] [place] [address] Assigned PCP 01/13/12 01/03/21 Stan Barnes MD [address] [place] [address] Assigned Surgical Provider 02/01/20 07/19/20 [place] [address] [place] [address] Assigned PCP 01/04/21 Stan Barnes MD [address] [place] [address] Assigned Surgical Provider 08/30/21 08/31/23 Trent Qureshi MD [facility] [address] [place] [address] Orthopaedic Surgery 09/16/21 Sammy Villa MD [address] [place] [address] 96 [place] [address] Assigned Neuroscience Provider 10/01/24 documented as of this encounter
--- OUTSIDE RECORDS SUMMARY | 2024-10-05 13:23 | XMS_ITS | Encounter Summary ---
Author Organization [place] Address [address] [place] [address] Care Team Providers Care Blood Donor Recruiter Supervisor Name Role Phone Daniel Plaza MD Primary Care Provider Daniel Plaza MD Unavailable [phone] Daniel Plaza MD Unavailable [phone] Stan Barnes MD Unavailable [phone] Herb Herman MD Primary Care Provider Herb Herman MD Unavailable Stan Barnes MD Unavailable [phone] Trent Qureshi MD Unavailable [phone] Sammy Villa MD Unavailable Encounter Details Date Type Department Care Team (Late st Contact Info) Description 02/28/2008 MyC Medical Advice [facility] [address] [address] Daniel Plaza MD [address] [phone] Social History Tobacco Use Types Packs/Day Years Used Date Smoking Tobacco: Never Alcohol Use Standard Drinks/Week Comments Yes 0 (1 standard drink = 0.6 oz pur e alcohol) social Comments No Sex and Gender Information Value Date Recorded Sex Assigned at Female 01/16/2019 8:38 AM CDT Legal Sex Female 3:11 AM EDI ANALYST Gender Identity Female 01/16/2019 8:38 AM CDT Sexual Orientation Choose not to disclose 2021 11:32 AM EDI ANALYST documented as of this encounter Plan of Treatment Upcoming Encounters Date Type Department Care Team (Late st Contact Info) Description 10/08/2024 3:30 PM CDT Office Visit [facility] [address] [place] [phone] [place] Herman [place] [address] [place] [address] documented as of this encounter Visit Diagnoses Not on filedocumented in this encounter Care Teams Blood Donor Recruiter Supervisor Relationship Specialty Start Date End Date Daniel Plaza MD [address] [place] [address] PCP - General 06/29/10 12/23/20 Daniel Plaza MD [address] [place] [address] PCP - Assigned PCP 02/05/08 06/13/18 [place] [address] [place] [address] PCP - General Family Medicine 12/24/20 Daniel Plaza MD [address] [place] [address] Assigned PCP 01/13/12 01/03/21 Stan Barnes MD 9[address] [place] [address] Assigned Surgical Provider 02/01/20 07/19/20 [place] [address] [place] [address] Assigned PCP 01/04/21 Stan Barnes MD [address] [place] [address] Assigned Surgical Provider 08/30/21 08/31/23 Trent Qureshi MD [facility] [address] [place] [address] Orthopaedic Surgery 09/16/21 Sammy Villa MD [address] [place] [address] Assigned Neuroscience Provider 10/01/24 documented as of this encounter
--- OUTSIDE RECORDS SUMMARY | 2024-10-05 13:23 | XMS_ITS | Encounter Summary ---
Author Organization [place] Address [address] [place] [address] Care Team Providers Care Manager Equipment Name Role Phone Herb Herman MD Primary Care Provider [phone] Herb Herman MD Unavailable Trent Qureshi MD Unavailable [phone] Reason for Referral * Consultation (Routine: Next available opening) - Closed Specialty Diagnoses / Procedures Referred By Contac t Referred To Contact Orthopedics Diagnoses Low back pain Douglas Hernandez MD [facility] [address] [facility] [address] [place] [address] Phone: tel: fax: Referral ID Status Reason Start Date Expiration Date Visits Re quested Visits Authorized [id number] Closed 09/11/2024 09/11/2025 1 1 Scheduling Instructions Evaluate severe lumbar spinal stenosis Question Answer Consult Type: Other Type: Per Protocol My Clinical Question Is: low back pain Scheduling Instructions: [facility] Orthopedic Special Projects Coordinator team will contact you via phone, text, email or MyChart within 2 business days to help you schedule your appointment, or you may contact the Special Projects Coordinator Team at . Comments [facility]U External Fax Details Provider: Douglas Hernandez Affiliated with: [facility] Clinic Location: [place] Phone number: [phone] Fax number: [phone] [place] Patient: No Medical records received with referral? No, Referral only [facility] Orthopedic Special Projects Coordinator team will contact you via phone, text, email or MyChart within 2 business days to help you schedule your appointment, or you may contact the Special Projects Coordinator Team at . Encounter Details Date Type Department Care Team (Latest Contact Info) Description 09/11/2024 Transcribe Orders GENERIC EXTERNAL DATA DEPARTMENT Douglas Hernandez MD [facility] [address] [place] [address] [place] [address] Low back pain (Primary Dx) Social History [...] any clubs o r organizations such as sikh groups, unions, fraternal or athletic groups, or [...] Date Recorded PHQ-2 Score 0 05/02/2024 [facility] of Occupat ional Health - Occupational Stress [...] in an abandoned building, in an overnight care home, or couch-surfing.) Yes 04/25/2023 Are you [...] AM CDT Legal Sex Female 3:11 AM ROLL ICER MACHINE Gender Identity Female 01/16/2019 8:38 AM CDT Sexual Orientation Choose not to disclose 2021 11:32 AM ROLL ICER MACHINE 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 file documented as of this encounter Plan of Treatment Upcoming Encounters Date Type Department Care Team (Late st Contact Info) Description 10/08/2024 3:30 PM CDT Office Visit [facility] [address] [place] [address] [place] [address] [place] [address] Scheduled Referrals Name Type Priority Associated Diagnoses Orde r Schedule Orthopedic Special Projects Coordinator Referral Referral Routine: Next available opening Low back pain Expected: 09/11/2024 (Approximate), Expires: 09/11/2025 documented as of this encounter Visit Diagnoses Diagnosis Low back pain- Primary Lumbago documented in this encounter Additional Health Concerns Assessment Noted Time PHQ-9 Depression Total Score: 0 05/02/19 25 10:13 AM ROLL ICER MACHINE documented as of this encounter Care Teams Manager Equipment Relationship Specialty [place] [address] [place] [address] PCP - General Family Medicine 12/24/20 [place] [address] [place] [address] Assigned PCP 01/04/21 Trent Qureshi MD [facility] [address] [place] [address] Orthopaedic Surgery 09/16/21 documented as of this encounter
--- OUTSIDE RECORDS SUMMARY | 2024-10-05 13:23 | XMS_ITS | Encounter Summary ---
Author Organization [place] Address [address] [place] [address] Care Team Providers Care Escalator Constructor Name Role Phone Herb Herman MD Primary Care Provider [phone] Herb Herman MD Unavailable Trent Qureshi MD Unavailable [phone] Encounter Details Date Type Department Care Team (Late st Contact Info) Description 09/10/2024 Medical Correspondence [facility] Health Information Management [address] [facility] [address] [place] [address] Scan, Non-Provider Social History Tobacco Use Types [...] often do you attend chur ch or mandaeism services? 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 file documented as of this encounter Plan of Treatment Upcoming Encounters Date Type Department Care Team (Late st Contact Info) Description 10/08/2024 3:30 PM CDT Office Visit [facility] [id number] [place] [address] [place] [address] [place] [address] documented as of this encounter Visit Diagnoses Not on filedocumented in this encounter Additional Health Concerns Assessment Noted Time PHQ-9 Depression Total Score: 0 05/02/19 25 10:13 AM SALES PROMOTER documented as of this encounter Care Teams Escalator Constructor Relationship Specialty [place] [address] [place] [address] PCP - General Family Medicine 12/24/20 [place] [address] [place] [address] Assigned PCP 01/04/21 Trent Qureshi MD [facility] [address] [place] [address] Orthopaedic Surgery 09/16/21 documented as of this encounter
--- OUTSIDE RECORDS SUMMARY | 2024-10-05 13:23 | XMS_ITS | Encounter Summary ---
Author Organization [place] Address [address] [place] [address] Care Team Providers Care Feeder Loader Name Role Phone Herb Herman MD Primary Care Provider [phone] Herb Herman MD Unavailable Trent Qureshi MD Unavailable [phone] Encounter Details Date Type Department Care [...] often do you attend chur ch or jainism services? 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 file documented as of this encounter Plan of Treatment Upcoming Encounters Date Type Department Care Team (Late st Contact Info) Description 10/08/2024 3:30 PM CDT Office Visit [facility] [address] [place] [address] [place] [address] [place] [address] documented as of this encounter Visit Diagnoses Not on filedocumented in this encounter Additional Health Concerns Assessment Noted Time PHQ-9 Depression Total Score: 0 05/02/19 25 10:13 AM BATTALION CHIEF documented as of this encounter Care Teams Feeder Loader Relationship Specialty [place] [address] [place] [address] PCP - General Family Medicine 12/24/20 [place] [address] [place] [address] Assigned PCP 01/04/21 Trent Qureshi MD [facility] [address] [place] [address] Orthopaedic Surgery 09/16/21 documented as of this encounter
--- OUTSIDE RECORDS SUMMARY | 2024-10-05 13:23 | XMS_ITS | Encounter Summary ---
Author Organization [place] Address [address] [place] [address] Care Team Providers Care Health Safety Coordinator Name Role Phone Daniel Plaza MD Primary Care Provider Daniel Plaza MD Unavailable [phone] Daniel Plaza MD Unavailable Stan Barnes MD Unavailable [phone] Herb Herman MD Primary Care Provider Herb Herman MD Unavailable Stan Barnes MD Unavailable [phone] Trent Qureshi MD Unavailable [phone] Sammy Villa MD Unavailable [phone] Reason for Visit * Reason Onset Date Comments Respiratory Problems 02/16/2008 Encounter Details Date Type Department Care Team (Latest Contact Info) Description 02/15/2008 MyC Medical Advice [facility] [address] [address] Daniel Plaza MD [address] [address] Respiratory Problems Social History Tobacco Use Types Packs/Day Years Used Date Smoking Tobacco: Never Alcohol Use Standard Drinks/Week Comments Yes 0 (1 standard drink = 0.6 oz pur e alcohol) social Comments No Sex and Gender Information Value Date Recorded Sex Assigned at Female 01/16/2019 8:38 AM CDT Legal Sex Female 3:11 AM HOSPITAL SECRETARY Gender Identity Female 01/16/2019 8:38 AM CDT Sexual Orientation Choose not to disclose 2021 11:32 AM HOSPITAL SECRETARY documented as of this encounter Plan of Treatment Upcoming Encounters Date Type Department Care Team (Late st Contact Info) Description 10/08/2024 3:30 PM CDT Office Visit [facility] [address] [place] [phone] [place] [address] [place] [address] documented as of this encounter Visit Diagnoses Not on filedocumented in this encounter Care Teams Health Safety Coordinator Relationship Specialty Start Date End Date Daniel Plaza MD [address] [place] [address] PCP - General 06/29/10 12/23/20 Daniel Plaza MD [address] [place] [address] PCP - Assigned PCP 02/05/08 06/13/18 [place] [address] [place] [address] PCP - General Family Medicine 12/24/20 Daniel Plaza MD [address] [place] [phone] Assigned PCP 01/13/12 01/03/21 Stan Barnes MD [address] [place] [address] Assigned Surgical Provider 02/01/20 07/19/20 [place] [address] [place] [address] Assigned PCP 01/04/21 Stan Barnes MD [address] [place] [address] Assigned Surgical Provider 08/30/21 08/31/23 Trent Qureshi MD [facility] [address] [place] [address] Orthopaedic Surgery 09/16/21 Sammy Villa MD [address] [place] [address] Assigned Neuroscience Provider 10/01/24 documented as of this encounter
--- OUTSIDE RECORDS SUMMARY | 2024-10-05 13:23 | XMS_ITS | Encounter Summary ---
Author Organization [facility] Address [address] [place] [address] Care Team Providers Care Backroom Associate Name Role Phone Daniel Plaza MD Primary Care Provider Daniel Plaza MD Unavailable [phone] Stan Barnes MD Unavailable [phone] Herb Herman MD Primary Care Provider Herb Herman MD Unavailable Stan Barnes MD Unavailable [phone] Trent Qureshi MD Unavailable [phone] Sammy Villa MD Unavailable Encounter Details Date Type Department Care Team (Late st Contact Info) Description 12/21/2018 [facility] [address] [place] [address] [address] [place] [address] Stan Barnes MD [address] [place] [address] Social History Tobacco Use Types Packs/Day Years Used Date Smoking Tobacco: Never Smokeless Tobacco: Never Alcohol Use Standard Drinks/Week Comments No 0 (1 standard drink = 0.6 oz pur e alcohol) PHQ-2 Answer Date Recorded PHQ-2 Score 0 04/18/2018 Comments No Sex and Gender Information Value Date Recorded Sex Assigned at Female 01/16/2019 8:38 AM CDT Legal Sex Female 3:11 AM MALTED MILK MIXER Gender Identity Female 01/16/2019 8:38 AM CDT Sexual Orientation Choose not to disclose 2021 11:32 AM MALTED MILK MIXER documented as of this encounter Plan of Treatment Upcoming Encounters Date Type Department Care Team (Late st Contact Info) Description 10/08/2024 3:30 PM CDT Office Visit [facility] [address] [place] [address] [place] [address] [place] [address] documented as of this encounter Visit Diagnoses Not on filedocumented in this encounter Additional Health Concerns Assessment Noted Time PHQ-9 Depression Total Score: 0 11/24/19 19 11:34 AM CDT documented as of this encounter Care Teams Backroom Associate Relationship Specialty Start Date End Date Daniel Plaza MD [address] [place] [phone] PCP - General 06/29/10 12/23/20 [place] [address] [place] [address] PCP - General Family Medicine 12/24/20 Daniel Plaza MD [address] [place] [phone] Assigned PCP 01/13/12 01/03/21 Stan Barnes MD 9 [place] [address] Assigned Surgical Provider 02/01/20 07/19/20 [place] [address] [place] [address] Assigned PCP 01/04/21 Stan Barnes MD [address] [place] [address] 075825 Assigned Surgical Provider 08/30/21 08/31/23 Trent Qureshi MD [facility] [address] [place] [address] [id number] Orthopaedic Surgery 09/16/21 Sammy Villa MD [address] [facility] [address] [place], [place] [address] Assigned Neuroscience Provider 10/01/24 documented as of this encounter
--- OUTSIDE RECORDS SUMMARY | 2024-10-05 13:23 | XMS_ITS | Encounter Summary ---
Author Organization [place] Address [address] [place] [address]. [place] [address] Care Team Providers Care Foot Orthopedist Name Role Phone Herb Herman MD Primary Care Provider [phone] Herb Herman MD Unavailable Trent Qureshi MD Unavailable [phone] Sammy Villa MD Unavailable [phone] Encounter Details Date Type Department Care Team (Late st Contact Info) Description 09/19/2024 [facility] Medical Advice [facility] Neurology [address], [address] [place] [phone] Ana Larsen, IRENE Social History Tobacco [...] Answer Date Recorded PHQ-2 Score 0 05/02/2024 [facility] of Occupat ional Health - Occupational Stress [...] AM CDT Legal Sex Female 3:11 AM PHONE MANAGER Gender Identity Female 01/16/2019 8:38 AM CDT Sexual Orientation Choose not to disclose 2021 11:32 AM PHONE MANAGER 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 file documented as of this encounter Plan of Treatment Upcoming Encounters Date Type Department Care Team (Late st Contact Info) Description 10/08/2024 3:30 PM CDT Office Visit [facility] [address] [place] [phone] [place] [address] [place] [address] documented as of this encounter Visit Diagnoses Not on filedocumented in this encounter Additional Health Concerns Assessment Noted Time PHQ-9 Depression Total Score: 0 05/02/19 25 10:13 AM PHONE MANAGER documented as of this encounter Care Teams Foot Orthopedist Relationship Specialty [place] [address] [place] [address] PCP - General Family Medicine 12/24/20 [place] [address] [place] [address] Assigned PCP 01/04/21 Trent Qureshi MD [facility] [address] [place] [id number] Orthopaedic Surgery 09/16/21 Sammy Villa MD [address] [place] [address] 939895 Assigned Neuroscience Provider 10/01/24 documented as of this encounter
--- OUTSIDE RECORDS SUMMARY | 2024-10-05 13:23 | XMS_ITS | Encounter Summary ---
Author Organization [place] Address [address] [place] [address]. [place] [address] Care Team Providers Care Pipe Fitter Helper Name Role Phone Herb Herman MD Primary Care Provider Herb Herman MD Unavailable Trent Qureshi MD Unavailable [phone] Reason for Visit * Reason Comments Medication Refill Encounter Details Date Type Department Care Team (Late st Contact Info) Description 09/23/[address] [address] [place] [address] [place] [address] Medication Refill Social History Tobacco [...] How often do you attend [facility] or moravian services? More than 4 times [...] Answer Date Recorded PHQ-2 Score 0 05/02/2024 [facility] of Occupat ional Health - Occupational Stress [...] AM CDT Legal Sex Female 3:11 AM CHEMIST WATER PURIFICATION Gender Identity Female 01/16/2019 8:38 AM CDT Sexual Orientation Choose not to disclose 2021 11:32 AM CHEMIST WATER PURIFICATION Occupation Industry Job Start Date Job End [...] PM CDT Office Visit [facility] [address] [place] [address] [place] [address] [place] [address] documented as of this encounter Visit Diagnoses Diagnosis Arthritis Arthropathy, unspecified, site unspecified documented in this encounter Additional Health Concerns Assessment Noted Time PHQ-9 Depression Total Score: 0 05/02/19 25 10:13 AM CHEMIST WATER PURIFICATION documented as of this encounter Care Teams Pipe Fitter Helper Relationship Specialty [place] [address] [place] [address] PCP - General Family Medicine 12/24/20 [place] [address] [place] [address] Assigned PCP 01/04/21 Trent Qureshi MD [facility] [address] [place] [address] Orthopaedic Surgery 09/16/21 documented as of this encounter
--- OUTSIDE RECORDS SUMMARY | 2024-10-05 13:23 | XMS_ITS | Encounter Summary ---
Author Organization [place] Address [address] [place] [address] Care Team Providers Care Finance Associate Name Role Phone Herb Herman MD Primary Care Provider Herb Herman MD Unavailable Trent Qureshi MD Unavailable [phone] Sammy Villa MD Unavailable Encounter Details Date Type Department Care Team (Late st Contact Info) Description 02/21/2024 [facility] Medical Advice [address] [address] Rama Roche MA Social History [...] Answer Date Recorded PHQ-2 Score 0 05/02/2023 [facility] of Occupat ional Health - Occupational [...] AM CDT Legal Sex Female 3:11 AM CONCRETE MIXER TRUCK DRIVER Gender Identity Female 01/16/2019 8:38 AM CDT Sexual Orientation Choose not to disclose 2021 11:32 AM CONCRETE MIXER TRUCK DRIVER 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 file documented as of this encounter Plan of Treatment Upcoming Encounters Date Type Department Care Team (Late st Contact Info) Description 10/08/2024 3:30 PM CDT Office Visit [address] [address] [place] [address] [place] [address] documented as of this encounter Visit Diagnoses Not on filedocumented in this encounter Additional Health Concerns Assessment Noted Time PHQ-9 Depression Total Score: 0 05/02/19 24 10:52 AM CONCRETE MIXER TRUCK DRIVER documented as of this encounter Care Teams Finance Associate Relationship Specialty [place] [address] [place] [address] PCP - General Family Medicine 12/24/20 [place] [address] [place] [address] Assigned PCP 01/04/21 Trent Qureshi MD [facility] [address] [place] [address] 210575 Orthopaedic Surgery 09/16/21 Sammy Villa MD [address] [place] [address] Assigned Neuroscience Provider 10/01/24 documented as of this encounter
[2024-10-05 13:24] LABS: Anion Gap 13 mEq/L (7-15); Calcium* 10.2 mg/dL (8.4-10.6); Carbon Dioxide* 19 mmol/L (20-32); Glucose* 130 mg/dL (60-115); Magnesium* 1.5 mg/dL (1.5-2.6)
--- OUTSIDE RECORDS SUMMARY | 2024-10-05 13:24 | XMS_ITS | Encounter Summary ---
Author Organization [place] Address [facility] [place] [address] Care Team Providers Care Senior Data Modeler Name Role Phone Herb Herman MD Primary Care Provider Herb Herman MD Unavailable Trent Qureshi MD Unavailable [phone] Sammy Villa MD Unavailable Reason for Visit * Reason Onset Date Comments MyChart Communication 03/30/2024 Encounter Details Date Type Department Care Team (Latest Contact Info) Description 03/30/2024 MyC Medical Advice [facility] [address] [place] [address] [place] [address] [place] [address] MyChart Communication Social History Tobacco [...] often do you attend chur ch or anabaptism services? 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 file documented as of this encounter Plan of Treatment Upcoming Encounters Date Type Department Care Team (Late st Contact Info) Description 10/08/2024 3:30 PM CDT Office Visit [address] [address] [place] [address] [place] [address] documented as of this encounter Visit Diagnoses Not on filedocumented in this encounter Additional Health Concerns Assessment Noted Time PHQ-9 Depression Total Score: 0 05/02/19 24 10:52 AM CAR SEAT MAKER documented as of this encounter Care Teams Senior Data Modeler Relationship Specialty Start Date [place] Herb Herman [place] [address] [place] [address] PCP - General Family Medicine 12/24/20 [place] [address] [place] [address] Assigned PCP 01/04/21 Trent Qureshi MD [facility] [address] [place] [address] Orthopaedic Surgery 09/16/21 Sammy Villa MD [address] [place] [address] 96 [place], [place] [phone] Assigned Neuroscience Provider 10/01/24 documented as of this encounter
--- OUTSIDE RECORDS SUMMARY | 2024-10-05 13:24 | XMS_ITS | Encounter Summary ---
Author Organization [facility] Address [address] [place] [address] Care Team Providers Care Sales Promoter Name Role Phone Daniel Plaza MD Primary Care Provider Daniel Plaza MD Unavailable [phone] Daniel Plaza MD Unavailable [phone] Stan Barnse MD Unavailable [phone] Herb Herman MD Primary Care Provider Herb Herman MD Unavailable Stan Barnes MD Unavailable [phone] Trent Qureshi MD Unavailable [phone] Sammy Villa MD Unavailable Reason for Visit * Reason Onset Date Comments Medication Request 04/22/2015 Encounter Details Date Type Department Care Team (Late st Contact Info) Description 04/22/2015 [facility] Medical Advice [facility] [address] [address] Daniel Plaza MD [address] [address] Medication Request Social History Tobacco Use Types Packs/Day Years Used Date Smoking Tobacco: Never Smokeless Tobacco: Never Alcohol Use Standard Drinks/Week Comments No 0 (1 standard drink = 0.6 oz pur e alcohol) Comments No Sex and Gender Information Value Date Recorded Sex Assigned at Female 01/16/2019 8:38 AM CDT Legal Sex Female 3:11 AM THREAD SPOOLER Gender Identity Female 01/16/2019 8:38 AM CDT Sexual Orientation Choose not to disclose 2021 11:32 AM THREAD SPOOLER documented as of this encounter Plan of Treatment Upcoming Encounters Date Type Department Care Team (Late st Contact Info) Description 10/08/2024 3:30 PM CDT Office Visit [facility] [address] [place] [phone] [place] [address] [place] [address] documented as of this encounter Visit Diagnoses Diagnosis Edema, unspecified edema- Primary documented in this encounter Care Teams Sales Promoter Relationship Specialty Start Date End Date Daniel Plaza MD [address] [place] [address] PCP - General 06/29/10 12/23/20 Daniel Plaza MD [address] [place] [phone] PCP - Assigned PCP 02/05/08 06/13/18 [place] [address] [place] [address] PCP - General Family Medicine 12/24/20 Daniel Plaza MD [address] [place] [phone] Assigned PCP 01/13/12 01/03/21 Stan Barnes MD [address] [place] [address] Assigned Surgical Provider 02/01/20 07/19/20 [place] [address] [place] [address] Assigned PCP 01/04/21 Stan Barnes MD [address] [place] [address] Assigned Surgical Provider 08/30/21 08/31/23 Trent Qureshi MD [facility] [address] [place] [address] Orthopaedic Surgery 09/16/21 Sammy Villa MD [address] [place] [address] Assigned Neuroscience Provider 10/01/24 documented as of this encounter
--- OUTSIDE RECORDS SUMMARY | 2024-10-05 13:24 | XMS_ITS | Encounter Summary ---
Author Organization [facility] Address [address] [place] [address] Care Team Providers Care Front Office Manager Name Role Phone Daniel Plaza MD Primary Care Provider Daniel Plaza MD Unavailable Daniel Plaza MD Unavailable Stan Barnes MD Unavailable [phone] Herb Herman MD Primary Care Provider [phone] Herb Herman MD Unavailable Stan Barnes MD Unavailable [phone] Trent Qureshi MD Unavailable [phone] Sammy Villa MD Unavailable [phone] Encounter Details Date Type Department Care Team (Late st Contact Info) Description 10/30/2014 [facility] Medical Advice [facility] [address] [address] Daniel Plaza MD [address] [phone] Social History Tobacco Use Types Packs/Day Years Used Date Smoking Tobacco: Never Smokeless Tobacco: Never Alcohol Use Standard Drinks/Week Comments No 0 (1 standard drink = 0.6 oz pur e alcohol) Comments No Sex and Gender Information Value Date Recorded Sex Assigned at Female 01/16/2019 8:38 AM CDT Legal Sex Female 3:11 AM WOOD PLANER Gender Identity Female 01/16/2019 8:38 AM CDT Sexual Orientation Choose not to disclose 2021 11:32 AM WOOD PLANER documented as of this encounter Plan of Treatment Upcoming Encounters Date Type Department Care Team (Late st Contact Info) Description 10/08/2024 3:30 PM CDT Office Visit [facility] [address] [place] [address] [place] [address] [place] [address] documented as of this encounter Visit Diagnoses Not on filedocumented in this encounter Care Teams Front Office Manager Relationship Specialty Start Date End Date Daniel Plaza MD [address] [place] [phone] PCP - General 06/29/10 12/23/20 Daniel Plaza MD [address] [place] [phone] PCP - Assigned PCP 02/05/08 06/13/18 [place] [address] [place] [address] PCP - General Family Medicine 12/24/20 Daniel Plaza MD [address] [place] [phone] Assigned PCP 01/13/12 01/03/21 Stan Barnes MD [address] [place] [address] Assigned Surgical Provider 02/01/20 07/19/20 [place] [address] [place] [address] Assigned PCP 01/04/21 Stan Barnes MD [address] [place] [address] Assigned Surgical Provider 08/30/21 08/31/23 Trent Qureshi MD [facility] [address] [place] [address] Orthopaedic Surgery 09/16/21 Sammy Villa MD [address] [place] [address] 96 [place] [address] Assigned Neuroscience Provider 10/01/24 documented as of this encounter
--- OUTSIDE RECORDS SUMMARY | 2024-10-05 13:24 | XMS_ITS | Encounter Summary ---
Author Organization [facility] Address [address] [place] [address] Care Team Providers Care Renal Social Worker Name Role Phone Daniel Plaza MD Primary Care Provider Daniel Plaza MD Unavailable Daniel Plaza MD Unavailable Stan Barnes MD Unavailable [phone] Herb Herman MD Primary Care Provider Herb Herman MD Unavailable Stan Barnes MD Unavailable [phone] Trent Qureshi MD Unavailable [phone] Sammy Villa MD Unavailable Encounter Details Date Type Department Care Team (Late st Contact Info) Description 10/30/2014 My[facility] Medical Advice [facility] [address] [address] Daniel Plaza MD [address] [phone] Social History Tobacco Use Types Packs/Day Years Used Date Smoking Tobacco: Never Smokeless Tobacco: Never Alcohol Use Standard Drinks/Week Comments No 0 (1 standard drink = 0.6 oz pur e alcohol) Comments No Sex and Gender Information Value Date Recorded Sex Assigned at Female 01/16/2019 8:38 AM CDT Legal Sex Female 3:11 AM MOTORBIKE COURIER Gender Identity Female 01/16/2019 8:38 AM CDT Sexual Orientation Choose not to disclose 2021 11:32 AM MOTORBIKE COURIER documented as of this encounter Miscellaneous Notes [...] Office Visit [facility] [address] [place] [phone] [place] [address] [place] [address] documented as of this encounter Visit Diagnoses Not on filedocumented in this encounter Care Teams Renal Social Worker Relationship Specialty Start Date End Date Daniel Plaza MD [address], [place] [phone] PCP - General 06/29/10 12/23/20 Daniel Plaza MD [address] [place] [address] PCP - Assigned PCP 02/05/08 06/13/18 [place] [address] [place] [address] PCP - General Family Medicine 12/24/20 Daniel Plaza MD [address] [place] [phone] Assigned PCP 01/13/12 01/03/21 Stan Barnes MD [address] [place] [address] Assigned Surgical Provider 02/01/20 07/19/20 [place] [address] [place] [address] Assigned PCP 01/04/21 Stan Barnes MD [address] [place] [address] Assigned Surgical Provider 08/30/21 08/31/23 Trent Qureshi MD [facility] [address] [place] [address] Orthopaedic Surgery 09/16/21 Sammy Villa MD [address] [place] [address] Assigned Neuroscience Provider 10/01/24 documented as of this encounter
--- OUTSIDE RECORDS SUMMARY | 2024-10-05 13:24 | XMS_ITS | Encounter Summary ---
Author Organization [facility] Address [address] [place] [address] Care Team Providers Care Fiction And Nonfiction Writer Prose Name Role Phone Herb Herman MD Primary Care Provider Herb Herman MD Unavailable Stan Barnes MD Unavailable [phone] Trent Qureshi MD Unavailable [phone] Sammy Villa MD Unavailable [phone] Encounter Details Date Type Department Care Team (Late st Contact Info) Description 12/23/2021 My[facility] Medical Advice [address] [address] Brooke Barnes Social History Tobacco [...] How often do you attend chur or muslim services? More than 4 times per year 06/08/2021 Do you belong to any clubs o r organizations such as baptism groups, unions, fraternal or athletic groups, or [...] Answer Date Recorded PHQ-2 Score 0 11/24/2021 [facility]at ional [facility] - Occupational Stress Questionnaire Answer Date [...] AM CDT Legal Sex Female 3:11 AM MICRO COMPUTER DATA PROCESSOR Gender Identity Female 01/16/2019 8:38 AM CDT Sexual Orientation Choose not to disclose 2021 11:32 AM MICRO COMPUTER DATA PROCESSOR Occupation Industry Job Start Date Job End [...] PM CDT Office Visit [facility] [address] [place] [phone] [place] [address] [place] [address] documented as of this encounter Visit Diagnoses Not on filedocumented in this encounter Additional Health Concerns Assessment Noted Time PHQ-9 Depression Total Score: 1 08/23/19 22 7:03 AM CDT documented as of this encounter Care Teams Fiction And Nonfiction Writer Prose Relationship Specialty [place] [address] [place] [address] PCP - General Family Medicine 12/24/20 [place] [address] [place] [address] Assigned PCP 01/04/21 Stan Barnes MD [address] [place] [address] 230595 Assigned Surgical Provider 08/30/21 08/31/23 Trent Qureshi MD [facility] [address] [place] [address] 888915 Orthopaedic Surgery 09/16/21 Sammy Villa MD [address] [place] [address] 96 [place] [address] Assigned Neuroscience Provider 10/01/24 documented as of this encounter
--- OUTSIDE RECORDS SUMMARY | 2024-10-05 13:24 | XMS_ITS | Encounter Summary ---
Author Organization [facility] Address [address] [place] [address]. [place] [address] Care Team Providers Care Reverse Engineer Name Role Phone Herb Herman MD Primary Care Provider Herb Herman MD Unavailable Stan Barnes MD Unavailable [phone] Trent Qureshi MD Unavailable [phone] Sammy Villa MD Unavailable [phone] Encounter Details Date Type Department Care Team (Late st Contact Info) Description 09/23/2021 [facility] [address] 4th [place] [address] [facility] Social History Tobacco Use Types Packs/Day Years [...] How often do you attend [facility] or pentecostalism services? More than 4 times per year 06/08/2021 Do you belong to any clubs o r organizations such as religion groups, unions, fraternal or athletic groups, or [...] Answer Date Recorded PHQ-2 Score 0 09/15/2021 [facility] of Occupat ional [facility] - Occupational Stress Questionnaire Answer Date Recorded [...] AM CDT Legal Sex Female 3:11 AM BANQUET ATTENDANT Gender Identity Female 01/16/2019 8:38 AM CDT Sexual Orientation Choose not to disclose 2021 11:32 AM BANQUET ATTENDANT Occupation Industry Job Start Date Job [...] Description 10/08/2024 3:30 PM CDT Office Visit [address] [phone] [place] [address] [place] [address] documented as of this encounter Visit Diagnoses Not on filedocumented in this encounter Additional Health Concerns Assessment Noted Time PHQ-9 Depression Total Score: 1 08/23/19 22 7:03 AM CDT documented as of this encounter Care Teams Reverse Engineer Relationship Specialty [place] [address] [place] [address] PCP - General Family Medicine 12/24/20 [place] [address] [place] [address] Assigned PCP 01/04/21 Stan Barnes MD [address] [place] [address] 043015 Assigned Surgical Provider 08/30/21 08/31/23 Trent Qureshi MD [facility] [address] [place] [address] 012185 Orthopaedic Surgery 09/16/21 Sammy Villa MD 420 [facility] 96 [place] [address] Assigned Neuroscience Provider 10/01/24 documented as of this encounter
--- OUTSIDE RECORDS SUMMARY | 2024-10-05 13:24 | XMS_ITS | Encounter Summary ---
Author Organization [facility] Address [address] [place] [address]. [place] [address] Care Team Providers Care Zinc Miner Name Role Phone Herb Herman MD Primary Care Provider Herb Herman MD Unavailable Trent Qureshi MD Unavailable [phone] Sammy Villa MD Unavailable Encounter Details Date Type Department Care Team (Late st Contact Info) Description 05/16/2024 MyC Medical Advice [facility] [address] [place] [address] [place] [address] [place] [address] Social History Tobacco Use Types [...] week 06/08/2021 How often do you attend [facility] or hinduism services? 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 file documented as of this encounter Plan of Treatment Upcoming Encounters Date Type Department Care Team (Late st Contact Info) Description 10/08/2024 3:30 PM CDT Office Visit [address] [phone] [place] [address] [place] [address] documented as of this encounter Visit Diagnoses Not on filedocumented in this encounter Additional Health Concerns Assessment Noted Time PHQ-9 Depression Total Score: 0 05/02/19 25 10:13 AM BRICKMASON documented as of this encounter Care Teams Zinc Miner Relationship Specialty [place] [address] [place] [address] PCP - General Family Medicine 12/24/20 [place] [address] [place] [address] Assigned PCP 01/04/21 Trent Qureshi MD [facility] [address] [place] [address] 738195 Orthopaedic Surgery 09/16/21 Sammy Villa MD [address] [place] [address] 237645 Assigned Neuroscience Provider 10/01/24 documented as of this encounter
--- OUTSIDE RECORDS SUMMARY | 2024-10-05 13:24 | XMS_ITS | Encounter Summary ---
Author Organization [facility] Address [address] [place] [address] Care Team Providers Care Toeing Stockings Name Role Phone Daniel Plaza MD Primary Care Provider Daniel Plaza MD Unavailable [phone] Daniel Plaza MD Unavailable Stan Barnes MD Unavailable [phone] Herb Herman MD Primary Care Provider [phone] Herb Herman MD Unavailable Stan Barnes MD Unavailable [phone] Trent Qureshi MD Unavailable [phone] Sammy Villa MD Unavailable Reason for Visit * Reason Onset Date Comments Thyroid Disease 07/23/2014 Encounter Details Date Type Department Care Team (Late st Contact Info) Description 07/23/2014 [facility] Advice [facility] [address] [address] Daniel Plaza MD [address] [address] Thyroid Disease Social History Tobacco Use Types Packs/Day Years Used Date Smoking Tobacco: Never Smokeless Tobacco: Never Alcohol Use Standard Drinks/Week Comments No 0 (1 standard drink = 0.6 oz pur e alcohol) Comments No Sex and Gender Information Value Date Recorded Sex Assigned at Female 01/16/2019 8:38 AM CDT Legal Sex Female 3:11 AM COIN MACHINE ASSEMBLER Gender Identity Female 01/16/2019 8:38 AM CDT Sexual Orientation Choose not to disclose 2021 11:32 AM COIN MACHINE ASSEMBLER documented as of this encounter Plan of Treatment Upcoming Encounters Date Type Department Care Team (Late st Contact Info) Description 10/08/2024 3:30 PM CDT Office Visit [facility] [address] [place] [phone] [place] [address] [place] [address] documented as of this encounter Visit Diagnoses Diagnosis MONTSERRAT'S THYROIDITIS- Primary Unspecified hypothyroidism documented in this encounter Care Teams Toeing Stockings Relationship Specialty Start Date End Date Daniel Plaza MD [address] [place] [phone] PCP - General 06/29/10 12/23/20 Daniel Plaza MD [address] [place] [address] PCP - Assigned PCP 02/05/08 06/13/18 [place] [address] [place] [address] PCP - General Family Medicine 12/24/20 Daniel Plaza MD [address] [place] [phone] Assigned PCP 01/13/12 01/03/21 Stan Barnes MD [address] [place] [address] Assigned Surgical Provider 02/01/20 07/19/20 [place] [address] [place] [address] Assigned PCP 01/04/21 Stan Barnes MD [address] [place] [address] Assigned Surgical Provider 08/30/21 08/31/23 Trent Qureshi MD [facility] [address] [place] [address] 561265 Orthopaedic Surgery 09/16/21 Sammy Villa MD [address] [place] [address] Assigned Neuroscience Provider 10/01/24 documented as of this encounter
--- OUTSIDE RECORDS SUMMARY | 2024-10-05 13:24 | XMS_ITS | Encounter Summary ---
Author Organization [facility] Address [address] [place] [address]. [place] [address] Care Team Providers Care Teaching Fellow Name Role Phone Herb Herman MD Primary Care Provider Herb Herman MD Unavailable Trent Qureshi MD Unavailable [phone] Sammy Villa MD Unavailable [phone] Encounter Details Date Type Department Care Team (Late st Contact Info) Description 03/31/2024 MyC Medical Advice [facility] [address] [place] [address] [place] [address] [place] [address] Social History Tobacco Use Types [...] week 06/08/2021 How often do you attend [facility] or zoroastrianism services? More than 4 times per year [...] Date Recorded PHQ-2 Score 0 05/02/2023 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 file documented as of this encounter Plan of Treatment Upcoming Encounters Date Type Department Care Team (Late st Contact Info) Description 10/08/2024 3:30 PM CDT Office Visit [address] [phone] [place] [address] [place], [place] 3013544 documented as of this encounter Visit Diagnoses Not on filedocumented in this encounter Additional Health Concerns Assessment Noted Time PHQ-9 Depression Total Score: 0 05/02/19 24 10:52 AM CREDIT NEGOTIATOR documented as of this encounter Care Teams Teaching Fellow Relationship Specialty [place] [address] [place] [address] PCP - General Family Medicine 12/24/20 [place] [address] [place] [address] Assigned PCP 01/04/21 Trent Qureshi MD [facility] [address] [place] [address] [phone] Orthopaedic Surgery 09/16/21 Sammy Villa MD [address] [place] [address] 343045 Assigned Neuroscience Provider 10/01/24 documented as of this encounter
--- OUTSIDE RECORDS SUMMARY | 2024-10-05 13:24 | XMS_ITS | Encounter Summary ---
Author Organization [facility] Address [address] [place] [address] Care Team Providers Care Crm Campaign Manager Name Role Phone Daniel Plaza MD Primary Care Provider [phone] Daniel Plaza MD Unavailable [phone] Herb Herman MD Primary Care Provider Herb Herman MD Unavailable Stan Barnes MD Unavailable Trent Qureshi MD Unavailable [phone] Sammy Villa MD Unavailable [phone] Encounter Details Date Type Department Care Team (Late st Contact Info) Description 10/15/2020 MyC Medical Advice [address] [address] Yvonne Zavala Social History Tobacco [...] AM CDT Legal Sex Female 3:11 AM SOLE SCRAPER Gender Identity Female 01/16/2019 8:38 AM CDT Sexual Orientation Choose not to disclose 2021 11:32 AM SOLE SCRAPER documented as of this encounter Plan of Treatment Upcoming Encounters Date Type Department Care Team (Late st Contact Info) Description 10/08/2024 3:30 PM CDT Office Visit [facility] [address] [place] [address] [place] [address] [place] [address] documented as of this encounter Visit Diagnoses Not on filedocumented in this encounter Additional Health Concerns Assessment Noted Time PHQ-9 Depression Total Score: 1 06/26/19 11:29 AM CDT documented as of this encounter Care Teams Crm Campaign Manager Relationship Specialty Start Date End Date Daniel Plaza MD [address] [place] [phone] PCP - General 06/29/10 12/23/20 Herb Herman MD [address] [place] [address] PCP - General Family Medicine 12/24/20 Daniel Plaza MD [address] [place] [phone] Assigned PCP 01/13/12 01/03/21 [place] [address] [place] [address] Assigned PCP 01/04/21 Stan Barnes MD [address] [place] [address] Assigned Surgical Provider 08/30/21 08/31/23 Trent Qureshi MD [facility] [address] [place] [address] [phone] Orthopaedic Surgery 09/16/21 Sammy Villa MD [address] [place] [address] 96 [place], [place] [phone] Assigned Neuroscience Provider 10/01/24 documented as of this encounter
--- OUTSIDE RECORDS SUMMARY | 2024-10-05 13:24 | XMS_ITS | Encounter Summary ---
Author Organization [place] Address [address] [place] [address] Care Team Providers Care Anaesthesiologist Name Role Phone Daniel Plaza MD Primary Care Provider [phone] Daniel Plaza MD Unavailable Daniel Plaza MD Unavailable Stan Barnes MD Unavailable [phone] Herb Herman MD Primary Care Provider Herb Herman MD Unavailable Stan Barnes MD Unavailable [phone] Trent Qureshi MD Unavailable [phone] Sammy Villa MD Unavailable Encounter Details Date Type Department Care Team (Late st Contact Info) Description 01/09/2014 [facility] [address] [address] Daniel Plaza MD [address] [phone] Social History Tobacco Use Types Packs/Day Years Used Date Smoking Tobacco: Never Smokeless Tobacco: Never Alcohol Use Standard Drinks/Week Comments No 0 (1 standard drink = 0.6 oz pur e alcohol) Comments No Sex and Gender Information Value Date Recorded Sex Assigned at Female 01/16/2019 8:38 AM CDT Legal Sex Female 3:11 AM STRIPE MATCHER Gender Identity Female 01/16/2019 8:38 AM CDT Sexual Orientation Choose not to disclose 2021 11:32 AM STRIPE MATCHER documented as of this encounter Plan of Treatment Upcoming Encounters Date Type Department Care Team (Late st Contact Info) Description 10/08/2024 3:30 PM CDT Office Visit [facility] [address] [place] [phone] Herb Herman [place] [id number] [place] [address] documented as of this encounter Visit Diagnoses Not on filedocumented in this encounter Care Teams Anaesthesiologist Relationship Specialty Start Date End Date Daniel Plaza MD [address] [place] [phone] PCP - General 06/29/10 12/23/20 Daniel Plaza MD [address] [place] [phone] PCP - Assigned PCP 02/05/08 06/13/18 [place] [address] [place] [address] PCP - General Family Medicine 12/24/20 Daniel Plaza MD [address] [place] [phone] Assigned PCP 01/13/12 01/03/21 Stan Barnes MD [address] [place] [address] Assigned Surgical Provider 02/01/20 07/19/20 [place] [address] [place] [address] Assigned PCP 01/04/21 Stan Barnes MD [address] [place] [address] Assigned Surgical Provider 08/30/21 08/31/23 Trent Qureshi MD [facility] [address] [place] [address] Orthopaedic Surgery 09/16/21 Sammy Villa MD [address] [place] [address] 96 [place] [address] Assigned Neuroscience Provider 10/01/24 documented as of this encounter
--- OUTSIDE RECORDS SUMMARY | 2024-10-05 13:24 | XMS_ITS | Encounter Summary ---
Author Organization [place] Address [facility] [place] [address] Care Team Providers Care Farmworker Name Role Phone Herb Herman MD Primary Care Provider Herb Herman MD Unavailable Stan Barnes MD Unavailable [phone] Trent Qureshi MD Unavailable [phone] Sammy Villa MD Unavailable Encounter Details Date Type Department Care Team (Late st Contact Info) Description 06/22/2022 MyC Medical Advice [facility] [address] [place] [phone] [place] [address] [place] [address] Social History Tobacco Use Types [...] Answer Date Recorded PHQ-2 Score 0 03/08/2022 [facility] - Occupational [...] AM CDT Legal Sex Female 3:11 AM PRAWN TRAWLER HAND Gender Identity Female 01/16/2019 8:38 AM CDT Sexual Orientation Choose not to disclose 2021 11:32 AM PRAWN TRAWLER HAND 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 file documented as of this encounter Plan of Treatment Upcoming Encounters Date Type Department Care Team (Late st Contact Info) Description 10/08/2024 3:30 PM CDT Office Visit [facility] [address] [place] [phone] Herb Herman MD [id number] [place] [address] documented as of this encounter Visit Diagnoses Not on filedocumented in this encounter Additional Health Concerns Assessment Noted Time PHQ-9 Depression Total Score: 0 03/08/20 22 10:26 AM PRAWN TRAWLER HAND documented as of this encounter Care Teams Farmworker Relationship Specialty [place] [address] [place] [address] PCP - General Family Medicine 12/24/20 [place] [address] [place] [address] Assigned PCP 01/04/21 Stan Barnes MD [address] [place] [address] Assigned Surgical Provider 08/30/21 08/31/23 Trent Qureshi MD [facility] [address] [id number] Orthopaedic Surgery 09/16/21 Sammy Villa MD [address] [facility] 96 [place], [place] [address] Assigned Neuroscience Provider 10/01/24 documented as of this encounter
--- OUTSIDE RECORDS SUMMARY | 2024-10-05 13:24 | XMS_ITS | Encounter Summary ---
Author Organization [place] Address [address] [place] [address] Care Team Providers Care Sanitation Worker Hosing Machinery Name Role Phone Herb Herman MD Primary Care Provider Herb Herman MD Unavailable Stan Barnes MD Unavailable [phone] Trent Qureshi MD Unavailable [phone] Sammy Villa MD Unavailable Reason for Visit * Reason Comments Medication Refill Encounter Details Date Type Department Care Team (Late st Contact Info) Description 01/28/[address] [phone] Daniel Plaza MD [address] [place] [phone] Medication Refill Social History Tobacco Use Types Packs/Day Years Used Date Smoking Tobacco: Never Smokeless Tobacco: Never Alcohol Use Standard Drinks/Week Comments No 0 (1 standard drink = 0.6 oz pur e alcohol) PHQ-2 Answer Date Recorded PHQ-2 Score 0 12/24/2020 Comments No Sex and Gender Information Value Date Recorded Sex Assigned at Female 01/16/2019 8:38 AM CDT Legal Sex Female 3:11 AM CERTIFIED ACTIVITIES DIRECTOR Gender Identity Female 01/16/2019 8:38 AM CDT Sexual Orientation Choose not to disclose 2021 11:32 AM CERTIFIED ACTIVITIES DIRECTOR documented as of this encounter Miscellaneous Notes [...] CDT Office Visit [facility] [address] [place] [phone] [place] Herman [place] [id number] [place] [address] documented as of this encounter Visit Diagnoses Diagnosis Edema, unspecified type Essential hypertension Unspecified essential hypertension Type 2 diabetes mellitus without complication, without long-term current use of insulin (H) documented in this encounter Additional Health Concerns Assessment Noted Time PHQ-9 Depression Total Score: 0 12/26/19 21 7:02 AM CDT documented as of this encounter Care Teams Sanitation Worker Hosing Machinery Relationship Specialty [place] [address] [place] [address] PCP - General Family Medicine 12/24/20 [place] [address] [place] [address] Assigned PCP 01/04/21 Stan Barnes MD [address] [place] [address] Assigned Surgical Provider 08/30/21 08/31/23 Trent Qureshi MD [facility] [address] [place] [address] Orthopaedic Surgery 09/16/21 Sammy Villa MD [address] [place] [address] 96 [place] [address] Assigned Neuroscience Provider 10/01/24 documented as of this encounter
--- OUTSIDE RECORDS SUMMARY | 2024-10-05 13:24 | XMS_ITS | Encounter Summary ---
Author Organization [place] Address [address] [place] [address] Care Team Providers Care Form Tamper Name Role Phone Daniel Plaza MD Primary Care Provider Daniel Plaza MD Unavailable Daniel Plaza MD Unavailable Stan Barnes MD Unavailable [phone] Herb Herman MD Primary Care Provider [phone] Herb Herman MD Unavailable Stan Barnes MD Unavailable [phone] Trent Qureshi MD Unavailable [phone] Sammy Villa MD Unavailable Encounter Details Date Type Department Care Team (Late st Contact Info) Description 07/25/2012 MyC Medical Advice [facility] [address] [phone] Daniel Plaza MD [address] [phone] Social History Tobacco Use Types Packs/Day Years Used Date Smoking Tobacco: Never Smokeless Tobacco: Never Alcohol Use Standard Drinks/Week Comments No 0 (1 standard drink = 0.6 oz pur e alcohol) Comments No Sex and Gender Information Value Date Recorded Sex Assigned at Female 01/16/2019 8:38 AM CDT Legal Sex Female 3:11 AM PLATEN DRIER OPERATOR Gender Identity Female 01/16/2019 8:38 AM CDT Sexual Orientation Choose not to disclose 2021 11:32 AM PLATEN DRIER OPERATOR documented as of this encounter Plan of Treatment Upcoming Encounters Date Type Department Care Team (Late st Contact Info) Description 10/08/2024 3:30 PM CDT Office Visit [facility] [address] [place] [phone] [place] Herman [place] [phone] [place] [address] documented as of this encounter Visit Diagnoses Not on filedocumented in this encounter Care Teams Form Tamper Relationship Specialty Start Date End Date Daniel Plaza MD [address] [place] [phone] PCP - General 06/29/10 12/23/20 Daniel Plaza MD [address] [place] [address] PCP - Assigned PCP 02/05/08 06/13/18 [place] [address] [place] [address] PCP - General Family Medicine 12/24/20 Daniel Plaza MD [address] [place] [address] Assigned PCP 01/13/12 01/03/21 Stan Barnes MD [address] [place] [address] Assigned Surgical Provider 02/01/20 07/19/20 [place] [address] [place] [address] Assigned PCP 01/04/21 Stan Barnes MD [address] [place] [address] Assigned Surgical Provider 08/30/21 08/31/23 Trent Qureshi MD [facility] [address] [place] [address] Orthopaedic Surgery 09/16/21 Sammy Villa MD [address] [place] [address] 96 [place] [address] Assigned Neuroscience Provider 10/01/24 documented as of this encounter
[2024-10-05 14:13] VITALS: BP 134/85; PULSE 74; RESP 18; TEMP 36.2; O2SAT 97
[2024-10-05] MEDS: MAGNESIUM SULF 1 G/100 ML 1 GM/100 ML PIGGYBACK IVPB (16:20)
[2024-10-05] MEDS: 0.9 % SODIUM CHLORIDE 500 ML 500 ML IV (16:22)
[2024-10-05 16:35] VITALS: BP 151/54; PULSE 66; RESP 18; TEMP 36.6; O2SAT 96
== END 2024-10-05 17:41 | disposition home or self-care (01) ==
PROVIDERS: Emergency Provider Emergency Medicine; PCP Family Medicine
DX: I63.9 Cerebral infarction, unspecified (principal); R47.1 Dysarthria and anarthria
CPT/HCPCS: 36415; 70551; 80048; 83735; 84484; 85025; 93005; 96365; 99284; 99285; J3475; J7030

== ENCOUNTER 2024-10-20 02:35 | Emergency (ER) | payer MEDICARE, OTHER, SELFPAY ==
--- OUTSIDE RECORDS SUMMARY | 2024-09-10 | XMS_ITS | Encounter Summary ---
Author Organization [facility] Address [address] [place] [address]. [place] [address] Care Team Providers Care Leasing Agent Name Role Phone Herb Herman MD Primary Care Provider [phone] Herb Herman MD Unavailable Trent Qureshi MD Unavailable [phone] Encounter Details Date Type Department Care Team (Late st Contact Info) Description 09/10/2024 Ancillary Procedure [facility] Imaging [address] [place] [phone] Non-Fv Credentialed Provider, Radiology Social History Tobacco Use Types Packs/Day Years Used Date Smoking Tobacco: Never Passive Smoke Exposure: Never Smokeless Tobacco: Never Alcohol Use Standard Drinks/Week Comments Never 0 (1 standard drink = 0.6 oz pur e alcohol) Social Connection and Isolat ion Panel [NHANES] Answer Date Recorded In a typical week, how many times do you talk on the phone with family, friends, or neighbors? More than three times a week 06/08/2021 How often do you get togethe r with friends or relatives? Three times a week 06/08/2021 How often do you attend chur ch or yarsani services? More than 4 times per year 06/08/2021 Do you belong to any clubs o r organizations such as evangelical groups, unions, fraternal or athletic groups, or school groups? No 06/08/2021 Attends Club or Organization Meetings Not on ella e 06/08/2021 Are you , , di vorced, , never , or living with a partner? 06/08/2021 AUDIT-C Answer Date Recorded Q1: How often do you have a drink containing alc ohol? Never 06/08/2021 Q2: How many drinks containi ng alcohol do you have on a typical day when you are drinking? Patient declined 06/08/2021 Q3: How often do you have si x or more drinks on one occasion? Never 06/08/2021 PHQ-2 Answer Date Recorded PHQ-2 Score 0 05/02/2024 [facility] - Occupational Stress Questionnaire Answer Date Recorded Do you feel stress - tense, restless, nervous, or anxious, or unable to sleep at night because your mind is troubled all the time - these days? Not at all 06/08/2021 Exercise Vital Sign Answer Date Recorde d On average, how many days pe r week do you engage in moderate to strenuous exercise (like a brisk walk)? 0 days 06/08/2021 On average, how many minutes do you engage in exercise at this level? 0 min 06/08/2021 Adolescent Education Answer Date Record ed Getting School Help Needed Not on file 01/04 Food Insecurity Answer Date Recorded Within the past 12 months, d id you worry that your food would run out before you got money to buy more? No 04/25/2023 Within the past 12 months, d id the food you bought just not last and you didn t have money to get more? No 04/25/2023 Housing Stability Answer Date Recorded Do you have housing? (Loy g is defined as stable permanent housing and does not include staying outside in a car, in a tent, in an abandoned building, in an overnight longterm, or couch-surfing.) Yes 04/25/2023 Are you worried about losing your housing? No 04/25/2023 Financial Resource Strain Answer Date R ecorded Within the past 12 months, h ave you or your family members you live with been unable to get utilities (heat, electricity) when it was really needed? Yes 04/25/2023 Transportation Needs Answer Date Record ed Within the past 12 months, h as lack of transportation kept you from medical appointments, getting your medicines, non-medical meetings or appointments, work, or from getting things that you need? No 04/25/2023 Interpersonal Safety Answer Date Record ed Do you feel physically and e motionally safe where you currently live? Yes 05/02/2023 Within the past 12 months, h ave you been hit, slapped, kicked or otherwise physically hurt by someone? No 05/02/2023 Within the past 12 months, h ave you been humiliated or emotionally abused in other ways by your partner or ex-partner? 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 file documented as of this encounter Plan of Treatment Upcoming Encounters Date Type Department Care Team (Late st Contact Info) Description 11/14/2024 10:30 AM CDT Office Visit [facility] [address] [place] [phone] [place] [id number] [place] [address] [phone] documented as of this encounter Procedures Procedure Name Priority Date/Time Associated Diagnosis Comments XR EXTERNAL IMAGING SPINE Routine 09/10/2024 12:00 AM CDT documented in this encounter Results * XR External Imaging Spine (09/10/2024 12:00 AM CDT) Narrative Service Account, Ob Benny - 09/13/2024 12:23 PM CDT Images were obtained from an external facility. Click PACS Images hyperlink to view images. Textual results have been scanned into the media tab. us Radiology Non-Fv Credentialed Provider IMG EXTER NAL IMAGING ORDERABLES Final Result documented in this encounter Visit Diagnoses Not on filedocumented in this encounter Additional Health Concerns Assessment Noted Time PHQ-9 Depression Total Score: 0 05/02/19 25 10:13 AM RIGGING SLINGER documented as of this encounter Care Teams Leasing Agent Relationship Specialty [place] [address] [place] [address] PCP - General Family Medicine 12/24/20 [place] [address] [place] [address] Assigned PCP 01/04/21 Trent Qureshi MD [facility] [address] [place] [address] Orthopaedic Surgery 09/16/21 documented as of this encounter
--- OUTSIDE RECORDS SUMMARY | 2024-09-10 00:05 | XMS_ITS | Encounter Summary ---
Author Organization [place] Address [address] [place] [address]. [place] [address] Care Team Providers Care Medical Claims Manager Name Role Phone Herb Herman MD Primary Care Provider [phone] Herb Herman MD Unavailable Trent Qureshi MD Unavailable [phone] Encounter Details Date Type Department Care Team (Late st Contact Info) Description 09/10/2024 12:05 AM CDT Ancillary Procedure [facility] External Imaging [address] [place] [phone] Non-Fv Credentialed Provider, Radiology Social History Tobacco [...] often do you attend chur ch or yazdanism services? 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 file documented as of this encounter Plan of Treatment Upcoming Encounters Date Type Department Care Team (Late st Contact Info) Description 11/14/2024 10:30 AM CDT Office Visit [address] [phone] Herb Herman MD [address] [place] [address] [phone] documented as of this encounter Procedures Procedure [...] Total Score: 0 05/02/19 25 10:13 AM GRAPHIC DESIGN TEACHER documented as of this encounter Care Teams Medical Claims Manager Relationship Specialty [place] [address] [address] [place] [address] PCP - General Family Medicine 12/24/20 [place] [address] [place] [address] Assigned PCP 01/04/21 Trent Qureshi MD [facility] [address] [place] [address] Orthopaedic Surgery 09/16/21 documented as of this encounter
--- OUTSIDE RECORDS SUMMARY | 2024-09-19 14:20 | XMS_ITS | Encounter Summary ---
Author Organization [place] Address [address] [facility] [place] [address] Care Team Providers Care Coal Carrier Name Role Phone Herb Herman MD Primary Care Provider [phone] Herb Herman MD Unavailable Trent Qureshi MD Unavailable [phone] Reason for Referral * Consultation (Routine: Next available opening) - Pending Review Specialty Diagnoses / Procedures Referred By Contac t Referred To Contact Diagnoses Lumbar stenosis with neurogenic claudication Sammy Villa MD [address] [address] Phone: tel: fax: Referral ID Status Reason Start Date Expiration Date V isits Requested Visits Authorized [id number] Pending Review 09/19/2024 09/19/2025 1 1 Question Answer Referral Type: Procedure Procedure: Epidural (Advanced imaging required in the last 3 years) Location: Lumbar Injection Type: Interlaminar ARTHUR Level: L3-4 Has the patient had a CT or MRI of the area of concern within the last 12 months? Yes Patient Scheduling Instructions: Our [facility] Orthopedic Wire Machine Cutter team will contact you via phone, text, email or MyChart within 2 business days to help you schedule your appointment, or you may contact the Wire Machine Cutter Team at . Additional Information: L3-4 or L4-5 ARTHUR Comments Please be aware that coverage of these services is subject to the terms and limitations of your health insurance plan. Call member services at your health plan with any benefit or coverage questions. Our [facility] Orthopedic Wire Machine Cutter team will contact you via phone, text, email or MyChart within 2 business days to help you schedule your appointment, or you may contact the Wire Machine Cutter Team at . * Rehab Therapy Physical Therapy (Routine: Next available opening) - Pending Review Specialty Diagnoses / Procedures Referred By Ambreen allen Referred To Contact Diagnoses Lumbar stenosis with neurogenic claudication Sammy Villa MD [address] [facility] [address] [place] [address] Phone: tel: fax: Referral ID Status Reason Start Date Expiration Date V isits Requested Visits Authorized [id number] Pending Review 09/19/2024 09/19/2025 1 1 Question Answer Course of Action: Evaluation and Treatment Specialty Services: Per Associated Diagnosis Patient Scheduling Instructions: [facility] will call you to coordinate your care as prescribed by your provider. If you don't hear from a client account representative within 2 business days, please call . Comments Please be aware that coverage of these services is subject to the terms and limitations of your health insurance plan. Call member services at your health plan with any benefit or coverage questions. [facility] will call you to coordinate your care as prescribed by your provider. If you don't hear from a client account representative within 2 business days, please call . Reason for Visit * Reason Comments Consult Low back pain * Consultation (Routine: Next available opening) - Closed Specialty Diagnoses / Procedures Referred By Contac t Referred To Contact Orthopedics Diagnoses Low back pain Douglas Hernandez MD [facility] [address] [facility] [address] [place] [address] Phone: tel: fax: Referral ID Status Reason Start Date Expiration Date Visits Re quested Visits Authorized [id number] Closed 09/11/2024 09/11/2025 1 1 Encounter Details Date Type Department Care Team (Late st Contact Info) Description 09/19/2024 2:20 PM CDT Office Visit [facility] [place] [address] [facility] [address] [place] [phone] Douglas Hernandez MD [facility] [address] [place], [place] [phone] Sammy Villa MD [address] [facility] [address] [facility] [address] [place], [place] [phone] Lumbar stenosis with neurogenic claudication (Primary Dx); [...] How often do you attend chur or church services? 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 Our [facility] Orthopedic Wire Machine Cutter team will contact you via phone, text, email or MyChart within 2 business days to help you schedule your appointment, or you may contact the Wire Machine Cutter Team at . Order placed for physical therapy. You can call the phone number highlighted in the order to schedule your appointment. Please call our clinic if symptoms persist after your course of physical therapy. If you have not heard from the scheduling office within 2 business days, please call [phone] for [facility], for [place] and [phone] for [facility]. Please call us if you have any further questions or concerns. [facility] Neurosurgery Clinic documented in this [...] Due to statin intolerance vitamin D2 (ERGOCALCIFEROL) 58708 units (1250 mcg) capsule TAKE ONE CAPSULE [...] Description 11/14/2024 10:30 AM CDT Office Visit [facility] [address] [place] [address] [place] [address] [place] [address] Scheduled Referrals Name Type Priority Associated Diagnoses Orde r Schedule Physical Therapy Wire Machine Cutter Referral Referral Routine: Next available opening Lumbar stenosis with neurogenic claudication Expected: 09/19/2024 (Approximate), Expires: 09/19/2025 Spine Wire Machine Cutter Referral Referral Routine: Next available opening Lumbar [...] Total Score: 0 05/02/19 25 10:13 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
--- OUTSIDE RECORDS SUMMARY | 2024-09-26 10:15 | XMS_ITS | Encounter Summary ---
Author Organization [place] Address [facility] [place] [address] Care Team Providers Care Plastic Design Applier Name Role Phone Herb Herman MD Primary Care Provider [phone] Herb Herman MD Unavailable Trent Qureshi MD Unavailable [phone] Reason for Referral * Clinically Administered Medications (Routine) - Closed Specialty Diagnoses / Procedures Referred By Contac t Referred To Contact Diagnoses unknown [place] [address] [place] [address] Phone: tel: fax: Referral ID Status Reason Start Date Expiration Date Visits Re quested Visits Authorized [id number] Closed 09/26/2024 09/26/2025 1 1 Reason for Visit * Reason Comments Pain * Consultation (Routine: Next available opening) - Pending Review Specialty Diagnoses / Procedures Referred By Contac t Referred To Contact Diagnoses Lumbar stenosis with neurogenic claudication Sammy Villa MD [address] [facility] [address] [place] [address] Phone: tel: fax: Referral ID Status Reason Start Date Expiration Date V isits Requested Visits Authorized [id number] Pending Review 09/19/2024 09/19/2025 1 1 Encounter Details Date Type Department Care Team (Latest Contact Info) Description 09/26/2024 10:15 AM CDT Radiology Injection Office Visit [facility] Pain Management [place] [address] [place] [address] [address] [place], [place] [address] Sammy Villa MD [address] [facility] [address] [place] [address] [place] [address] [place] [address] Lumbar radiculopathy (Primary Dx); Lumbar stenosis with [...] week 06/08/2021 How often do you attend [facility] or church services? More than 4 times [...] Answer Date Recorded PHQ-2 Score 0 05/02/2024 [facility] of Occupat ional Health - Occupational Stress [...] AM CDT Legal Sex Female 3:11 AM DIETARY AIDE Gender Identity Female 01/16/2019 8:38 AM CDT Sexual Orientation Choose not to disclose 2021 11:32 AM DIETARY AIDE Occupation Industry Job Start Date Job End [...] Velazquez RN - 09/26/2024 10:15 AM CDT [facility] Procedure Discharge Instructions Today you [...] pain center line during work hours at [phone] on-call physician after hours at [phone]: -Fever over 100 degree F -Swelling, bleeding, [...] from the original note were not included. [facility] - Procedure Note Date [...] the procedure. Diagnosis: Lumbar spondylosis; Lumbar radiculitis/radiculopathy Forest Examiner: Daniel Dunlap MD Anesthesia: none Indications: Angela [...] 7.1 MRI LUMBAR SPINE was done @ [facility] on 02/15/2024 and was reviewed - I [...] any questions or NO to having a motor coach driver Please complete laminated checklist and leave [...] oral steroids? NO Do you have a motor coach driver? Yes Are you or ? Not Applicable Have you received any vaccinations in the last week? NO Vitals: B/P 172/78 Manual Recheck: B/P 148/68 Notify provider and RNs if systolic BP >170, diastolic BP >100, P >100 or O2 sats < 90% Mikala Staley MA [facility] * Ruma Velazquez RN [...] Yes Signature/Title: Ruma R Yelle, RN RN Corporate Consultant [facility] [place] documented in this encounter Plan of Treatment Upcoming Encounters Date Type Department Care Team (Late st Contact Info) Description 11/14/2024 10:30 AM CDT Office Visit [facility] [address] [place] [phone] [place] [address] [place] [address] documented as of this encounter Procedures Procedure [...] from the original result were not included. [facility] - Procedure Note Date of Visit: 09/26/2024 [...] the procedure. Diagnosis: Lumbar spondylosis; Lumbar radiculitis/radiculopathy Forest Examiner: Daniel Dunlap MD Anesthesia: none Indications: Angela [...] DUNLAP MD Pain Management Daniel Dunlap MD [facility] [place] PAIN MANAGEMENT ORDERABLES Final Result documented in [...] Total Score: 0 05/02/19 25 10:13 AM DIETARY AIDE documented as of this encounter Care Teams Plastic Design Applier Relationship Specialty [place] [address] [place] [address] PCP - General Family Medicine 12/24/20 [place] [address] [place] [address] Assigned PCP 01/04/21 Trent Qureshi MD [facility] [address] [place] [address] Orthopaedic Surgery 09/16/21 documented as of this encounter
--- OUTSIDE RECORDS SUMMARY | 2024-10-08 15:30 | XMS_ITS | Encounter Summary ---
Author Organization [place] Address [address] [facility] [place] [address] Care Team Providers Care Digital Business Analyst Name Role Phone Herb Herman MD Primary Care Provider [phone] Herb Herman MD Unavailable Trent Qureshi MD Unavailable [phone] Sammy Villa MD Unavailable Reason for Referral * Consultation (Priority: 1-2 Weeks) - Pending Review Specialty Diagnoses / Procedures Referred By Ambreen allen Referred To Contact Diagnoses TIA (transient ischemic [place]) [place] [address] [place] [address] Phone: tel: fax: [facility] [address] [place] [address] Phone: tel: fax: Referral ID Status Reason Start Date Expiration Date V isits Requested Visits Authorized [id number] Pending Review 10/08/2024 10/08/2025 1 1 Question Answer Reason for Referral: Stroke Patient Scheduling Instructions: [facility] will call you to coordinate your care as prescribed by your provider. If you don't hear from a employer relations representative within 2 business days, please call . Additional Information: series of TIA; was in [facility] Comments Please be aware that coverage of these services is subject to the terms and limitations of your health insurance plan. Call member services at your health plan with any benefit or coverage questions. [facility] will call you to coordinate your care as prescribed by your provider. If you don't hear from a employer relations representative within 2 business days, please call . Reason for Visit * Reason Comments Hospital F/U Encounter Details Date Type Department Care Team (Late st Contact Info) Description 10/08/2024 3:30 PM CDT Office Visit [address] [phone] [place] [address] [place] [address] TIA (transient ischemic attack) (Primary Dx); Chronic kidney disease, stage 3a (H); Hyperlipidemia LDL goal <100; Essential hypertension; Adjustment disorder with anxious mood Social History Tobacco Use Types Packs/Day Years [...] 06/08/2021 PHQ-2 Answer Date Recorded PHQ-2 Score 6 10/08/2024 [facility]ational Stress Questionnaire Answer Date [...] AM CDT Legal Sex Female 3:11 AM MIGRATION SPECIALIST Gender Identity Female 01/16/2019 8:38 AM CDT Sexual Orientation Choose not to disclose 2021 11:32 AM MIGRATION SPECIALIST 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 * TIA (Transient Ischemic Attack) (Turkmen) documented in this encounter Progress Notes * Herb Herman MD - 10/08/2024 3:30 PM CDT Images from the original note were not included. Assessment & Plan TIA (transient ischemic attack) Patient sustained a suspected TIA, she continues to have some deficits in the right upper extremity, overall benign neurologic exam. She has not yet started her hypertensive medications as she was undergoing permissive hypertension and we plan to start her in a stepwise fashion, recommend starting lisinopril 20 mg in a week that consider starting the hydrochlorothiazide after. She was previously on Zestoretic 20-25 mg daily. She was also started on Zetia and Plavix, she was unable to tolerate statins. Recommend she establish does not follow-up with neurology. - Adult Neurology Operations Professional Referral Chronic kidney disease, stage 3a (H) Hyperlipidemia LDL goal <100 Essential hypertension Management as per above - lisinopril (ZESTRIL) 20 MG tablet Dispense: 30 tablet; Refill: 1 Adjustment disorder with anxious mood Acute problem, likely related problem #1, start trazodone nightly. - traZODone (DESYREL) 50 MG tablet Dispense: 30 tablet; Refill: 2 MED REC REQUIRED Post Medication Reconciliation Status: Discharge medications reconciled and changed, see notes/orders Subjective Angela is a 78 year old, presenting for the following health issues: Hospital F/U 10/08/2024 3:05 PM Additional Questions Roomed by Ki Reese Accompanied by [facility] Hospital Follow-up Visit: Hospital/[facility]/IP Rehab Facility: [facility] Date of Admission: 10-02-24 Date of Discharge: 10-04-24 Reason(s) for Admission: 4 mini strokes Do you have any other stressors you would like to discuss with your provider? No Problems taking medications regularly: None Medication changes since discharge: holding lisinopril Problems adhering to non-medication therapy: None Summary of hospitalization: CareEverywhere information obtained and reviewed Diagnostic Tests/Treatments reviewed. Follow up needed: neurology Other Healthcare Providers Involved in Patient???s Care: None Update since discharge: stable. Plan of care communicated with patient and family Follow-up with TIA, continues to have some numbness tingling and weakness of the right upper extremity, she is fearful of future outcomes based on these mini strokes. She is accompanied by her Rojas today. Objective BP (!) 159/80 (BP Location: Right arm, Patient Position: Chair, Cuff Size: Adult Large) Pulse 79 Temp 98.9 ??F (37.2 ??C) (Oral) Resp 16 Ht 1.626 m (5' 4) LMP 02/21/2002 SpO2 98% No BMI 39.82 kg/m?? Body mass index is 39.82 kg/m??. Physical Exam Vitals reviewed. Constitutional: Appearance: She is not ill-appearing. Eyes: Extraocular Movements: Extraocular movements intact. Pupils: Pupils are equal, round, and reactive to light. Cardiovascular: Rate and Rhythm: Normal rate and regular rhythm. Pulmonary: Effort: Pulmonary effort is normal. Breath sounds: Normal breath sounds. Neurological: Comments: No dysmetria, no dysdiadochokinesis. Psychiatric: Comments: Fearful, anxious Signed Electronically by: Hebr Herman MD documented in this encounter Plan of Treatment Upcoming Encounters Date Type Department Care Team (Late st Contact Info) Description 11/14/2024 10:30 AM CDT Office Visit [facility] [address] [place] [phone] [place] [address] [place] [address] Scheduled Referrals Name Type Priority Associated Diagnoses Orde r Schedule Adult Neurology Operations Professional Referral Referral Priority: 1-2 Weeks TIA (transient ischemic attack) Expected: 10/08/2024 (Approximate), Expires: 10/08/2025 documented as of this encounter Visit Diagnoses Diagnosis TIA (transient ischemic attack)- Primary Unspecified transient cerebral ischemia Chronic kidney disease, stage 3a (H) Hyperlipidemia LDL goal <100 Other and unspecified hyperlipidemia Essential hypertension Unspecified essential hypertension Adjustment disorder with anxious mood Adjustment disorder with anxiety documented in this encounter Additional Health Concerns Assessment Noted Time PHQ-9 Depression Total Score: 22 025 3:11 PM CDT documented as of this encounter Care Teams Digital Business Analyst Relationship Specialty [place] [address] [place] [address] PCP - General Family Medicine 12/24/20 [place] [address] [place] [address] Assigned PCP 01/04/21 Trent Qureshi MD [facility] [address] [place] [address] Orthopaedic Surgery 09/16/21 Sammy Villa MD [address] [place] [address] Assigned Neuroscience Provider 10/01/24 documented as of this encounter
--- OUTSIDE RECORDS SUMMARY | 2024-10-18 14:00 | XMS_ITS | Encounter Summary ---
Author Organization [facility] Address [address] [place] [address] Care Team Providers Care Biller Name Role Phone Herb Herman MD Primary Care Provider [phone] Reason for Referral * PT/OT/ST (Routine) - Authorized Specialty Diagnoses / Procedures Referred By Ambreen allen Referred To Contact Occupational Therapy Diagnoses Right hand weakness Right hand paresthesia Felisha Perez APRN, CNP [address] [place] [address] Phone: tel: fax: Referral ID Status Reason Start Date Expiration Date Visits Requested Visits Authorized [id number] Authorized Specialty Services Required 10/18/2024 1 1 Comments Right hand numbness/weakness, difficulty w. iADL, writing, eval/treat. * Consultation (Routine) - Authorized Specialty Diagnoses / Procedures Referred By Ambreen allen Referred To Contact Physical Therapy Diagnoses Abnormality of gait and mobility History of multiple strokes Felisha Perez APRN, CNP [address] [place] [address] Phone: tel: fax: Referral ID Status Reason Start Date Expiration Date Visits Requested Visits Authorized [id number] Authorized Specialty Services Required 10/18/2024 1 1 [...] APRN, CNP [address] [place] [address] Phone: tel: fax: Referral ID Status Reason Start Date Expiration Date Visits Requested Visits Authorized [id number] Authorized Specialty Services Required 10/18/2024 1 1 Comments Stroke, fluctuating speech changes * (Routine) - Open Specialty Diagnoses / Procedures Referred By Ambreen allen Referred To Contact Diagnoses Speech disturbance, unspecified type History of multiple strokes Procedures MRI BRAIN W/O CON Efren Elena MD [address] [place] [address] Phone: tel: fax: Referral ID Status Reason Start Date Expiration Date Visits Re quested Visits Authorized [id number] Open 01/04/2025 1 1 * (Routine) - Open Specialty Diagnoses / Procedures Referred By Ambreen allen Referred To Contact Diagnoses Speech disturbance, unspecified type History of multiple strokes Procedures ZIO MONITOR REGISTRATION Felisha Perez APRN, CNP [address] [place] [address] Phone: tel: fax: Referral ID Status Reason Start Date Expiration Date Visits Re quested Visits Authorized [id number] Open 10/18/2024 1 1 * (Routine) - Open Specialty Diagnoses / Procedures Referred By Ambreen allen Referred To Contact Diagnoses Speech disturbance, unspecified type History of multiple strokes Procedures ZIO MONITOR REGISTRATION Felisha Perez APRN, CNP [address] [place] [address] Phone: tel: fax: Referral ID Status Reason Start Date Expiration Date Visits Re quested Visits Authorized [id number] Open 10/18/2024 1 1 Reason for Visit * Reason Comments Consultation Stroke Encounter Details Date Type Department Care Team (Late st Contact Info) Description 10/18/2024 2:00 PM CDT Office Visit [facility] [address] [place] [phone] Felisha Perez APRN, CNP [address] [place] [id number] Speech disturbance, unspecified type (Primary Dx); Abnormality [...] from the original note were not included. [facility] [address] [place] [address], [address] [place] [address] Neurology Initial Note / Consultation Assessment and Plan: #. Multiple Stroke -- initial sx: garbled speech -- exam: unsteady gait, positive romberg, right hand weakness/altered sensation -- risk factors: HLD, CKD, HTN, elevated BMI, DM -- [facility] records not able to be obtained [...] her primary care provider is at [facility] until November. No prior occurrences of [...] Resource Strain: High Risk (04/25/2023) Received from [employer] Financial Resource Strain Within the past 12 months, have you or your family members you live with been unable to get utilities (heat, electricity) when it was really needed?: Yes Food Insecurity: Low Risk (04/25/2023) Received from [employer] Food Insecurity Within the past 12 months, did you worry that your food would run out before you got money to buy more?: No Within the past 12 months, did the food you bought just not last and you didn???t have money to getmore?: No Transportation Needs: Low Risk (04/25/2023) Received from [employer] Transportation Needs Within the past 12 months, has lack of transportation kept you from medical appointments, getting your medicines, non-medical meetings or appointments, work, or from getting things that you need?: No Physical Activity: Inactive (06/08/2021) Received from [employer] Exercise Vital Sign Days of Exercise per Week: 0 days Minutes of Exercise per Session: 0 min Stress: No Stress Concern Present (06/08/2021) Received from [employer] [place] of Occupational Health - Occupational Stress Questionnaire Feeling of Stress : Not at all Social Connections: Moderately Integrated (06/08/2021) Received from [employer] Social Connection and Isolation Panel [NHANES] Frequency of Communication with Friends and Family: More than three times a week Frequency of Social Gatherings with Friends and Family: Three times a week Attends Buddhism Services: More than 4 times per year Active Member of Clubs or Organizations: No Attends Club or Organization Meetings: Not on file Marital Status: Intimate Partner Violence: Low Risk (05/02/2023) Received from [employer] Interpersonal Safety Do you feel physically and emotionally safe where you currently live?: Yes Within the past 12 months, have you been hit, slapped, kicked or otherwise physically hurt by someone?: No Within the past 12 months, have you been humiliated or emotionally abused in other ways by your partner or ex-partner?: No Housing Stability: Low Risk (04/25/2023) Received from [employer] Housing Stability Do you have housing? (Housing is defined as stable permanent housing and does not include staying outside in a car, in a tent, in an abandoned building, in an overnight senior living, or couch-surfing.): Yes Are you worried about [...] hypertension documented in this encounter Care Teams Biller Relationship Specialty [place] [address] [place] [address] PCP - General Family Medicine - 10/18/24 documented as of this encounter
--- OUTSIDE RECORDS SUMMARY | 2024-10-20 02:38 | XMS_ITS | Encounter Summary ---
Author Organization [facility] Address [address] [place] [address] Care Team Providers Care Structural Steel Erector Name Role Phone Daniel Plaza MD Primary Care Provider Daniel Plaza MD Unavailable [phone] Daniel Plaza MD Unavailable Stan Barnes MD Unavailable [phone] Herb Herman MD Primary Care Provider Herb Herman MD Unavailable Stan Barnes MD Unavailable [phone] Trent Qureshi MD Unavailable [phone] Sammy Villa MD Unavailable Encounter Details Date Type Department Care Team (Late st Contact Info) Description 11/28/[address] 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 [address] [place] [address] [place] [address] [place] [address] documented as of this encounter Visit Diagnoses Not on filedocumented in this encounter Care Teams Structural Steel Erector Relationship Specialty Start Date End Date Daniel Plaza MD [address] [place] [phone] PCP - General 06/29/10 12/23/20 Daniel Plaza MD [address] [place] [phone] PCP - Assigned PCP 02/05/08 06/13/18 [place] [address] [place] [address] PCP - General Family Medicine 12/24/20 Daniel Plaza MD [address] [place] [phone] Assigned PCP 01/13/12 01/03/21 Stan Barnes MD [address] [place] [address] Assigned Surgical Provider 02/01/20 07/19/20 [place] [address] [place] [address] Assigned PCP 01/04/21 Stan Barnes MD [address] [place] [id number] Assigned Surgical Provider 08/30/21 08/31/23 Trent Qureshi MD [facility] [address] [place] [address] Orthopaedic Surgery 09/16/21 Sammy Villa MD [address] [place] [id number] Assigned Neuroscience Provider 10/01/24 documented as of this encounter
--- OUTSIDE RECORDS SUMMARY | 2024-10-20 02:38 | XMS_ITS | Encounter Summary ---
Author Organization [place] Address [address] [place] [address] Care Team Providers Care Recreational Vehicle Resort Manager Name Role Phone Daniel Plaza MD Primary Care Provider Daniel Plaza MD Unavailable [phone] Daniel Plzaa MD Unavailable [phone] Stan Barnes MD Unavailable [phone] Herb Herman MD Primary Care Provider Herb Herman MD Unavailable Stan Barnes MD Unavailable [phone] Trent Qureshi MD Unavailable [phone] Sammy Villa MD Unavailable Encounter Details Date Type Department Care Team (Latest Contact Info) Description 01/24/2016 [facility] [address] [address] Daniel Plaza MD [address] [address] Spinal stenosis of lumbar region [...] AM CDT Legal Sex Female 3:11 AM STOCK AND STATION AGENT Gender Identity Female 01/16/2019 8:38 AM CDT Sexual Orientation Choose not to disclose 2021 11:32 AM STOCK AND STATION AGENT documented as of this encounter Plan of Treatment Upcoming Encounters Date Type Department Care Team (Late st Contact Info) Description 11/14/2024 10:30 AM CDT Office Visit [facility] [address] [place] [phone] [place] [id number] [place] [address] documented as of this encounter Visit Diagnoses Diagnosis Spinal stenosis of lumbar region with neurogenic claudication- Primary Spinal stenosis, lumbar region, with neurogenic claudication documented in this encounter Additional Health Concerns Assessment Noted Time PHQ-9 Depression Total Score: 0 12/23/19 16 7:14 AM CDT documented as of this encounter Care Teams Recreational Vehicle Resort Manager Relationship Specialty Start Date End Date Daniel Plaza MD [address] [place] [phone] PCP - General 06/29/10 12/23/20 Daniel Plaza MD [address] [place] [phone] PCP - Assigned PCP 02/05/08 06/13/18 [place] [address] [place] [address] PCP - General Family Medicine 12/24/20 Daniel Plaza MD [address] [place] [phone] Assigned PCP 01/13/12 01/03/21 Stan Barnes MD [address] [place] [address] Assigned Surgical Provider 02/01/20 07/19/20 [place] [address] [place] [address] Assigned PCP 01/04/21 Stan Barnes MD [address] [place] [address] Assigned Surgical Provider 08/30/21 08/31/23 Trent Qureshi MD [facility] [address] [place] [address] Orthopaedic Surgery 09/16/21 Sammy Villa MD [address] [place] [address] 96 [place] [address] Assigned Neuroscience Provider 10/01/24 documented as of this encounter
--- OUTSIDE RECORDS SUMMARY | 2024-10-20 02:38 | XMS_ITS | Encounter Summary ---
Author Organization [place] Address [address] [place] [address] Care Team Providers Care Helium Arc Welder Name Role Phone Daniel Plaza MD Primary Care Provider Daniel Plaza MD Unavailable [phone] Daniel Plaza MD Unavailable [phone] Stan Barnes MD Unavailable Herb Herman MD Primary Care Provider [phone] Herb Herman MD Unavailable Stan Barnes MD Unavailable + [phone] Trent Qureshi MD Unavailable [phone] Sammy Villa MD Unavailable [phone] Encounter Details Date Type Department Care Team (Late st Contact Info) Description 03/01/2011 [facility] [address] [address] Rodolfo Cline Social History Tobacco Use Types Packs/Day Years Used Date Smoking Tobacco: Never Alcohol Use Standard Drinks/Week Comments No 0 (1 standard drink = 0.6 oz pur e alcohol) Comments No Sex and Gender Information Value Date Recorded Sex Assigned at Female 01/16/2019 8:38 AM CDT Legal Sex Female 3:11 AM REGIONAL TELECOMMUNICATIONS SPECIALIST Gender Identity Female 01/16/2019 8:38 AM CDT Sexual Orientation Choose not to disclose 2021 11:32 AM REGIONAL TELECOMMUNICATIONS SPECIALIST documented as of this encounter Plan of Treatment Upcoming Encounters Date Type Department Care Team (Late st Contact Info) Description 11/14/2024 10:30 AM CDT Office Visit [facility] [address] [place] [address] [place] [address] [place] [address] documented as of this encounter Visit Diagnoses Not on filedocumented in this encounter Care Teams Helium Arc Welder Relationship Specialty Start Date End Date Daniel Plaza MD [address] [place] [phone] PCP - General 06/29/10 12/23/20 Daniel Plaza MD [address] [place] [phone] PCP - Assigned PCP 02/05/08 06/13/18 [place] [address] [place] [address] PCP - General Family Medicine 12/24/20 Daniel Plaza MD [address] [place] [phone] Assigned PCP 01/13/12 01/03/21 Stan Barnes MD 9 [place] [address] Assigned Surgical Provider 02/01/20 07/19/20 [place] [address] [place] [address] Assigned PCP 01/04/21 Stan Barnes MD [address] [place] [address]225 Assigned Surgical Provider 08/30/21 08/31/23 Trent Qureshi MD [facility] [address] [place] [address] Orthopaedic Surgery 09/16/21 Sammy Villa MD 420 [facility] 96 [place], [place] 7[address] Assigned Neuroscience Provider 10/01/24 documented as of this encounter
--- OUTSIDE RECORDS SUMMARY | 2024-10-20 02:38 | XMS_ITS | Encounter Summary ---
Author Organization [place] Address [address] [place] [address] Care Team Providers Care Admission Liaison Name Role Phone Daniel Torres MD Primary Care Provider [phone] Daniel Torres MD Unavailable Daniel Torres MD Unavailable [phone] Stan Barnes MD Unavailable [phone] Herb Herman MD Primary Care Provider Herb Herman MD Unavailable Stan Barnes MD Unavailable [phone] Trent Qureshi MD Unavailable [phone] Sammy Villa MD Unavailable [phone] Encounter Details Date Type Department Care Team (Late st Contact Info) Description 09/08/2007 [facility] [address] [address] Daniel Torres MD [address] [address] DJD ; HYPERLIPIDEMIA Social History Tobacco Use Types Packs/Day Years Used Date Smoking Tobacco: Never Alcohol Use Standard Drinks/Week Comments Yes 0 (1 standard drink = 0.6 oz pur e alcohol) social Comments No Sex and Gender Information Value Date Recorded Sex Assigned at Female 01/16/2019 8:38 AM CDT Legal Sex Female 3:11 AM WASTEWATER PROJECT MANAGER Gender Identity Female 01/16/2019 8:38 AM CDT Sexual Orientation Choose not to disclose 2021 11:32 AM WASTEWATER PROJECT MANAGER documented as of this encounter Miscellaneous Notes * Telephone Encounter - Vero Carr - 09/08/2007 2:01 PM CDTMessage from [facility]: Original authorizing provider: Savanna VILLALOBOS would like a refill of the following medications: SIMVASTATIN 80 MG OR TABS [DANIEL TORRES M.D.] CELEBREX 200 MG OR CAPS [DANIEL TORRES M.D.] Preferred pharmacy: [facility] Comment: I have requested my medications for the past two days. I have not received a response. With the weekend coming it sometimes takes longer for the pharmacy to fill the prescription. Please advise documented in this encounter Plan of Treatment Upcoming Encounters Date Type Department Care Team (Late st Contact Info) Description 11/14/2024 10:30 AM CDT Office Visit [address] [address] [place] [address] [place] [address] documented as of this encounter Visit Diagnoses Diagnosis DJD Generalized osteoarthrosis, unspecified site HYPERLIPIDEMIA Other and unspecified hyperlipidemia documented in this encounter Care Teams Admission Liaison Relationship Specialty Start Date End Date Daniel Torres MD [address] [place] [phone] PCP - General 06/29/10 12/23/20 Daniel Torres MD [address] [address] PCP - Assigned PCP 02/05/08 06/13/18 [place] [address] [place] [address] PCP - General Family Medicine 12/24/20 Daniel Torres MD [address] [place] [address] Assigned PCP 01/13/12 01/03/21 Stan Barnes MD [address] [place] [address] Assigned Surgical Provider 02/01/20 07/19/20 [place] [address] [place] [address] Assigned PCP 01/04/21 Stan Barnes MD [address] [place] [address] Assigned Surgical Provider 08/30/21 08/31/[address] [facility] [address] [address] Orthopaedic Surgery 09/16/21 Sammy Villa MD [address] [place] [address] 96 [place] [address] Assigned Neuroscience Provider 10/01/24 documented as of this encounter
--- OUTSIDE RECORDS SUMMARY | 2024-10-20 02:38 | XMS_ITS | Encounter Summary ---
Author Organization [place] Address [address] [place] [address] Care Team Providers Care Call Center Support Consultant Name Role Phone Daniel Plaza MD Primary Care Provider Daniel Plaza MD Unavailable [phone] Daniel Plaza MD Unavailable [phone] Stan Barnes MD Unavailable [phone] Herb Herman MD Primary Care Provider [phone] Herb Herman MD Unavailable Stan Barnes MD Unavailable [phone] Trent Qureshi MD Unavailable [phone] Sammy Villa MD Unavailable [phone] Encounter Details Date Type Department Care Team (Late st Contact Info) Description 05/18/2007 [facility] Medical Advice [facility] [address] [address] Daniel Plaza MD [address] [phone] Social History Tobacco Use Types Packs/Day Years Used Date Smoking Tobacco: Never Alcohol Use Standard Drinks/Week Comments Yes 0 (1 standard drink = 0.6 oz pur e alcohol) social Comments No Sex and Gender Information Value Date Recorded Sex Assigned at Female 01/16/2019 8:38 AM CDT Legal Sex Female 3:11 AM OBSTETRICS GYNECOLOGY MD Gender Identity Female 01/16/2019 8:38 AM CDT Sexual Orientation Choose not to disclose 2021 11:32 AM OBSTETRICS GYNECOLOGY MD documented as of this encounter Plan of Treatment Upcoming Encounters Date Type Department Care Team (Late st Contact Info) Description 11/14/2024 10:30 AM CDT Office Visit [facility] [address] [place] [address] [place] [address] [place] [address] documented as of this encounter Visit Diagnoses Not on filedocumented in this encounter Care Teams Call Center Support Consultant Relationship Specialty Start Date End Date Daniel Plaza MD [address] [place] [phone] PCP - General 06/29/10 12/23/20 Daniel Plaza MD [address] [place] [phone] PCP - Assigned PCP 02/05/08 06/13/18 [place] [address] [place] [address] PCP - General Family Medicine 12/24/20 Daniel Plaza MD [address] [place] [address] Assigned PCP 01/13/12 01/03/21 Stan Barnes MD 909 [place] [address] Assigned Surgical Provider 02/01/20 07/19/20 [place] [address] [place] [address] Assigned PCP 01/04/21 Stan Barnes MD [address] [place] [address] Assigned Surgical Provider 08/30/21 08/31/23 Trent Qureshi MD [facility] [address] [place] [address] Orthopaedic Surgery 09/16/21 Sammy Villa MD [address] [place] [address] Assigned Neuroscience Provider 10/01/24 documented as of this encounter
--- OUTSIDE RECORDS SUMMARY | 2024-10-20 02:38 | XMS_ITS | Encounter Summary ---
Author Organization [place] Address [address] [place] [address] Care Team Providers Care Oyster Preparer Name Role Phone Daniel Plaza MD Primary Care Provider Daniel Plaza MD Unavailable Daniel Plaza MD Unavailable Stan Barnes MD Unavailable [phone] Herb Herman MD Primary Care Provider [phone] Herb Herman MD Unavailable Stan Barnes MD Unavailable [phone] Trent Qureshi MD Unavailable [phone] Sammy Villa MD Unavailable Encounter Details Date Type Department Care Team (Late st Contact Info) Description 11/21/2001 [facility] [address] [address] Daniel Plaza MD [address] [phone] Social History Tobacco Use Types Packs/Day Years Used Date Smoking Tobacco: Never Assessed Comments No Sex and Gender Information Value Date Recorded Sex Assigned at Female 01/16/2019 8:38 AM CDT Legal Sex Female 3:11 AM PRESIDENT + PUBLISHER Gender Identity Female 01/16/2019 8:38 AM CDT Sexual Orientation Choose not to disclose 2021 11:32 AM PRESIDENT + PUBLISHER documented as of this encounter Plan of Treatment Upcoming Encounters Date Type Department Care Team (Late st Contact Info) Description 11/14/2024 10:30 AM CDT Office Visit [facility] [address] [place] [address] [place] [address] [place] [address] documented as of this encounter Visit Diagnoses Not on filedocumented in this encounter Care Teams Oyster Preparer Relationship Specialty Start Date End Date Daniel Plaza MD [address] [place] [phone] PCP - General 06/29/10 12/23/20 Daniel Plaza MD [address] [place] [phone] PCP - Assigned PCP 02/05/08 06/13/18 [place] [address] [place] [address] PCP - General Family Medicine 12/24/20 Daniel Plaza MD [address] [place] [phone] Assigned PCP 01/13/12 01/03/21 Stan Barnes MD [address] [place] [address] Assigned Surgical Provider 02/01/20 07/19/20 [place] [address] [place] [address] Assigned PCP 01/04/21 Stan Barnes MD [address] [place] [address] 298925 Assigned Surgical Provider 08/30/21 08/31/23 Trent Qureshi MD [facility] [address] [place] [address] Orthopaedic Surgery 09/16/21 Sammy Villa MD [address] [place] [address] 327295 Assigned Neuroscience Provider 10/01/24 documented as of this encounter
--- OUTSIDE RECORDS SUMMARY | 2024-10-20 02:38 | XMS_ITS | Encounter Summary ---
Author Organization [place] Address [address] [place] [address] Care Team Providers Care Gravure Printing Machinist Name Role Phone Daniel Plaza MD Primary Care Provider Daniel Plaza MD Unavailable Daniel Plaza MD Unavailable Stan Barnes MD Unavailable [phone] Herb Herman MD Primary Care Provider [phone] Hebr Herman MD Unavailable Stan Barnes MD Unavailable [phone] Trent Qureshi MD Unavailable [phone] Sammy Villa MD Unavailable Encounter Details Date Type Department Care Team (Late st Contact Info) Description 06/23/2011 [facility] Medical Advice [facility] [address] [address] Daniel Plaza MD [address] [phone] Social History Tobacco Use Types Packs/Day Years Used Date Smoking Tobacco: Never Smokeless Tobacco: Never Alcohol Use Standard Drinks/Week Comments No 0 (1 standard drink = 0.6 oz pur e alcohol) Comments No Sex and Gender Information Value Date Recorded Sex Assigned at Female 01/16/2019 8:38 AM CDT Legal Sex Female 3:11 AM HOME MANAGEMENT SUPERVISOR Gender Identity Female 01/16/2019 8:38 AM CDT Sexual Orientation Choose not to disclose 2021 11:32 AM HOME MANAGEMENT SUPERVISOR documented as of this encounter Plan of Treatment Upcoming Encounters Date Type Department Care Team (Late st Contact Info) Description 11/14/2024 10:30 AM CDT Office Visit [facility] [address] [place] [phone] [place] [address] [place] [address] documented as of this encounter Visit Diagnoses Not on filedocumented in this encounter Care Teams Gravure Printing Machinist Relationship Specialty Start Date End Date Daniel Plaza MD [address] [place] [address] PCP - General 06/29/10 12/23/20 Daniel Plaza MD [address] [place] [address] PCP - Assigned PCP 02/05/08 06/13/18 [place] [address] [place] [address] PCP - General Family Medicine 12/24/20 Daniel Plaza MD [address] [place] [phone] Assigned PCP 01/13/12 01/03/21 Stan Barnes MD [address] [place] [address] Assigned Surgical Provider 02/01/20 07/19/20 [place] [address] [place] [address] Assigned PCP 01/04/21 Stan Barnes MD [address] [place] [address] Assigned Surgical Provider 08/30/21 08/31/23 Trnet Qureshi MD [facility] [address] [place] [address] Orthopaedic Surgery 09/16/21 Sammy Villa MD [address] [place] [address] 96 [place] [address] Assigned Neuroscience Provider 10/01/24 documented as of this encounter
--- OUTSIDE RECORDS SUMMARY | 2024-10-20 02:38 | XMS_ITS | Encounter Summary ---
Author Organization [place] Address [address] [place] [address] Care Team Providers Care Assisted Living Executive Director Name Role Phone Daniel Plaza MD Primary Care Provider [phone] Daniel Plaza MD Unavailable [phone] Daniel Plaza MD Unavailable [phone] Stan Barnes MD Unavailable [phone] Herb Herman MD Primary Care Provider [phone] Herb Herman MD Unavailable Stan Barnes MD Unavailable [phone] Trent Qureshi MD Unavailable [phone] Sammy Villa MD Unavailable [phone] Encounter Details Date Type Department Care Team (Late st Contact Info) Description 01/31/2006 My[facility] Medical Advice [facility] [address] [address] Daniel Plaza MD [address] [phone] Social History Tobacco Use Types Packs/Day Years Used Date Smoking Tobacco: Never Alcohol Use Standard Drinks/Week Comments Yes 0 (1 standard drink = 0.6 oz pur e alcohol) social Comments No Sex and Gender Information Value Date Recorded Sex Assigned at Female 01/16/2019 8:38 AM CDT Legal Sex Female 3:11 AM CHANNEL DEVELOPMENT DIRECTOR Gender Identity Female 01/16/2019 8:38 AM CDT Sexual Orientation Choose not to disclose 2021 11:32 AM CHANNEL DEVELOPMENT DIRECTOR documented as of this encounter Plan of Treatment Upcoming Encounters Date Type Department Care Team (Late st Contact Info) Description 11/14/2024 10:30 AM CDT Office Visit [facility] [address] [place] [address] [place] [address] [place] [address] documented as of this encounter Visit Diagnoses Not on filedocumented in this encounter Care Teams Assisted Living Executive Director Relationship Specialty Start Date End Date Daniel Plaza MD [address] [place] [phone] PCP - General 06/29/10 12/23/20 Daniel Plaza MD [address] [place] [phone] PCP - Assigned PCP 02/05/08 06/13/18 [place] [address] [place] [address] PCP - General Family Medicine 12/24/20 Daniel Plaza MD [address] [place] [phone] Assigned PCP 01/13/12 01/03/21 Stan Barnes MD 909 [place] [address] Assigned Surgical Provider 02/01/20 07/19/20 [place] [address] [place] [address] Assigned PCP 01/04/21 Stan Barnes MD [address] [place] [address] Assigned Surgical Provider 08/30/21 08/31/23 Trent Qureshi MD [facility] [address] [place] [address] Orthopaedic Surgery 09/16/21 Sammy Villa MD [address] [place] [address] Assigned Neuroscience Provider 10/01/24 documented as of this encounter
--- OUTSIDE RECORDS SUMMARY | 2024-10-20 02:38 | XMS_ITS | Encounter Summary ---
Author Organization [place] Address [address] [place] [address] Care Team Providers Care Plant Puller Name Role Phone Daniel Plaza MD Primary Care Provider [phone] Daniel Plaza MD Unavailable Daniel Plaza MD Unavailable Stan Barnes MD Unavailable [phone] Herb Herman MD Primary Care Provider Herb Herman MD Unavailable Stan Barnes MD Unavailable [phone] Trent Stratton MD Unavailable [phone] Sammy Villa MD Unavailable [phone] Encounter Details Date Type Department Care Team (Late st Contact Info) Description 03/01/2003 [facility] [address] [address] Daniel Plaza MD [address] [phone] OP REPT (Primary Dx) Social History Tobacco Use Types Packs/Day Years Used Date Smoking Tobacco: Never Passive Smoke Exposure: Never Smokeless Tobacco: Never Alcohol Use Standard Drinks/Week Comments Never 0 (1 standard drink = 0.6 oz pur e alcohol) Comments No Sex and Gender Information Value Date Recorded Sex Assigned at Female 01/16/2019 8:38 AM CDT Legal Sex Female 3:11 AM CHAIR CANER Gender Identity Female 01/16/2019 8:38 AM CDT Sexual Orientation Choose not to disclose 2021 11:32 AM CHAIR 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 file documented as of this encounter Progress Notes * 03/01/2003 11:59 PM [id number] 00:00 Operative Report-[facility] TRENT STRATTON () [Entered: 00:00 Transcr iption ([facility])] 1st ASS'T: Alexander Gamble CST 2nd [...] STRATTON MD D: 06:24 MT: sb Document: [id number] [place], [place] Name: MICHAEL LAMAR OPERATIVE REPORT Page 2 of 2 LCN: 57 DSC: [place], [place] Name: MICHAEL LAMAR MR#: : Procedure Date: -98 1945 03/01/2003 Surgeon: TRENT STRATTON MD OPERATIVE REPORT Page 1 of 2 Electronically filed by Hu Porter 03/06/2003 10:43 AM documented in this encounter Plan of Treatment Upcoming Encounters Date Type Department Care Team (Late st Contact Info) Description 11/14/2024 10:30 AM CDT Office Visit [address] [phone] Herb Herman MD [address] [place] [address] documented as of this encounter Visit Diagnoses Diagnosis OP REPT- Primary documented in this encounter Care Teams Plant Puller Relationship Specialty Start Date End Date Daniel Plaza MD [address], [place] [phone] PCP - General 06/29/10 12/23/20 Daniel Plaza MD [address] [place] [phone] PCP - Assigned PCP 02/05/08 06/13/18 [place] [address] [place] [address] PCP - General Family Medicine 12/24/20 Daniel Plaza MD [address] [place] [phone] Assigned PCP 01/13/12 01/03/21 Stan Barnes MD [address] [place] [address] Assigned Surgical Provider 02/01/20 07/19/20 [place] [address] [place] [address] Assigned PCP 01/04/21 Stan Barnes MD 909 [place] [address] Assigned Surgical Provider 08/30/21 08/31/23 Trent Stratton MD [facility] [address] 3678[address] Orthopaedic Surgery 09/16/21 Sammy Villa MD [address] [place] [address] Assigned Neuroscience Provider 10/01/24 documented as of this encounter
--- OUTSIDE RECORDS SUMMARY | 2024-10-20 02:39 | XMS_ITS | Clinical Summary ---
Author Organization [facility] Address [address] [place] [address] Care Team Providers Care Retail Loss Prevention Officer Name Role Phone Herb Herman MD Primary Care Provider Herb Herman MD Unavailable Trent Qureshi MD Unavailable [phone] [facility] Unavailable Allergies Active Allergy Reactions [...] <100 Due to statin intolerance 019 Active Additional Information Patient not taking.Reported on 10/08/2024 blood glucose monitoring (SOFTCLIX) lancetsIndication s:Type 2 [...] LEVELS ONCE DAILY. 100 strip 024 Active omeprazole (PRILOSEC) [address] capsuleIndication [...] tablet 3 025 Active vitamin D2 (ERGOCALCIFEROL) 36727 units (1250 mcg) capsuleIndication s:Type 2 diabetes mellitus without complication, without long-term current use of insulin (H) TAKE ONE CAPSULE BY MOUTH WEEKLY ON WEDNESDAYS 12 capsule 3 025 Active lisinopril (ZESTRIL) 20 MG tabletIndications :Essential hypertension Take 1 tablet (20 mg) by mouth daily. 30 tablet 1 025 Active traZODone (DESYREL) 50 MG tabletIndications :Adjustment disorder with anxious mood Take 1 tablet (50 mg) by mouth at bedtime. 30 tablet 2 025 Active clopidogrel (PLAVIX) 75 MG tablet Take 1 tablet by mouth daily. 025 Active ezetimibe (ZETIA) 10 MG tablet Take 1 tablet by mouth daily. 025 Active naproxen (NAPROSYN) 500 MG tabletIndications :Arthritis Take 1 tablet (500 mg) by mouth 2 times daily as needed for moderate pain 120 tablet 3 024 2024 Discontinued lisinopril-hydroc hlorothiazide (ZESTORETIC) 20-25 MG tabletIndications :Essential hypertension Take 1 tablet by mouth daily. 90 tablet 3 025 2024 Discontinued naproxen (NAPROSYN) 500 MG tabletIndications :Arthritis TAKE ONE TABLET BY MOUTH TWICE DAILY NEEDED FOR MODERATE PAIN 120 tablet 5 025 2024 Discontinued(R eorder (No AVS)) naproxen (NAPROSYN) 500 MG tabletIndications :Arthritis Take 1 tablet (500 mg) by mouth 2 times daily (with meals). As needed for moderate pain 120 tablet 5 025 2024 Discontinued Hospital, Clinic, or Other Facility Administered Medication [...] (01/02/2016): Seen incidentally on CT done at [facility] Major 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 6 Spinal [...] to review. 03/01/2011 Full code 03/08/2011 Health Correction 12/15/2010 09/26/2023 Overview (07/17/2012): X DX V65.8 REPLACED WITH 27638 HEALTH [facility] (07/17/2012) Major 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 11/05/2004 05/03/2023 Encounters Date Type Department Care Team Description 10/08/2024 3:30 PM CDT Office Visit [address] [address] Herb Herman MD TIA (transient ischemic attack) (Primary Dx); Chronic kidney disease, stage 3a (H); Hyperlipidemia LDL goal <100; Essential hypertension; Adjustment disorder with anxious mood 10/08/2024 Travel 09/26/2024 10:15 AM CDT Radiology Injection Office Visit [facility] [address] [place] [address] Sammy Villa MD Burton, Annie L, MD Lumbar radiculopathy (Primary Dx); Lumbar stenosis with neurogenic claudication 09/26/2024 Travel 09/23/[address] [phone] Herb Herman MD Medication Refill 09/20/2024 Telephone [facility] [address] [place] [address] [facility] Procedure (L3-4 or L4-5 Interlaminar ARTHUR) 09/19/2024 2:20 PM CDT Office Visit [facility] Neurosurgery [address] [place] [phone] Douglas Hernandez MD Helland, Logan C, MD Lumbar stenosis with neurogenic claudication (Primary Dx); Chronic bilateral low back pain with bilateral sciatica 09/19/2024 MyC Medical Advice [facility]rology [facility] [address], [address] [place] [address] [phone] Ana Larsen RN 09/19/2024 Travel 09/19/2024 PRE VISIT [facility] Neurosurgery [address] [place] [phone] Sammy Villa MD Previsit 09/11/2024 Transcribe Orders GENERIC EXTERNAL DATA DEPARTMENT Douglas Hernandez MD Low back pain (Primary Dx) 09/10/2024 12:05 AM CDT Ancillary Procedure [facility] External Imaging [address] [place] [phone] Non- Credentialed Provider, Radiology 09/10/2024 Ancillary Procedure [facility] [address] [place] [phone] Non-Fv Credentialed Provider, Radiology 09/10/2024 Medical Correspondence [facility] Information Management [address] [place] [address] Scan, Non-Provider from Last 3 Months Immunizations [...] Liver C.A.D. Paternal Grandfather Musculoskeletal Disorder Sister fibromrl algia Relation Status Comments Brother 1 Alive Brother 2 Alive Father Mother Paternal Grandfather NE Sister Alive lashadna knee replace ments Son 1 Alive Son [...] How often do you attend chur or spiritism services? More than 4 times per year [...] Answer Date Recorded PHQ-2 Score 6 10/08/2024 [facility] - [...] Date Recorded Do you have housing? (Loy burgess is defined as stable permanent housing and [...] AM CDT Legal Sex Female 3:11 AM FIELD EVIDENCE TECHNICIAN Gender Identity Female 01/16/2019 8:38 AM CDT Sexual Orientation Choose not to disclose 2021 11:32 AM FIELD EVIDENCE TECHNICIAN Occupation Industry Job Start Date Job [...] PM CDT Height 162.6 cm (5' 4) 10/08/2024 3:11 PM CDT Body Mass Index 39.82 09/19/2024 1:43 PM CDT Plan of Treatment Upcoming Encounters Date Type Department Care Team (Late st Contact Info) Description 11/14/2024 10:30 AM CDT Office Visit [facility] [address] [place] [phone] [place] [address] [place] [address] Health Maintenance Due Date Last Done Comments DEPRESSION ACTION PLAN 1945 URINALYSIS 10/18/1946 ZOSTER VACCINE (1 of 2) 10/18/1997 DTAP/TDAP/TD VACCINE (2 - Td or Tdap) 02/19/2020 02/18/2010 DEXA 07/21/2022 07/21/2017, 03/11, 07/27/2006, Additional history exists RSV VACCINE (1 - 1-dose 75+ series) 10/18/2022 HEMOGLOBIN 01/18/2023 01/18/2022, 12/2021, 01/16/2022, Additional history exists DIABETIC FOOT [...] 10/30/2024 05/02/2024, 07/11, 05/02/2023, Additional history exists INFLUENZA VACCINE (#1) 2024 , 12/24/2020, 02/06/2020, Additional history exists PHQ-9 04/09/2025 10/08/2024, 04/12, 05/02/2023, Additional history exists ANNUAL REVIEW OF HM [...] (Cologuard) Discontinued Medical Devices Implanted Type Area Manufacturing Controller Device Identifier Shelf Expiration Date Model / Serial / Lot Imp Scr Zim 6.5x30mm Acet Cup Self Tap [id number] - [id number] Implanted:Qty : 1 on 09/21/2021 by Anderson George MD at [facility] Metallic Hardware/Anc hor Right: Hip [employer] 06/19/203108-1691-300- 30 / / [id number] Imp Scr Zim 6.5x30mm Acet Cup Self Tap [id number] [phone] - [id number] Implanted:Qty : 1 on 12/21/2021 by Anderson George MD at [facility] Metallic Hardware/Anc hor Left: Hip [employer] 06/19/203131-9238-262- 30 / / [id number] Imp Shell Biom G7 Acetab Pps Billy Hole 52mm Sz E [id number] - [id number] Implanted:Qty : 1 on 09/21/2021 by Anderson George MD at [facility] Total Joint Component/In sert Right: Hip [employer] 07/10/[id number] / / [id number] Liner Actb G7 E 36mm Lngvt Hip Strl Lum Lf [id number] - [id number] Implanted:Qty : 1 on 09/21/2021 by Anderson George MD at [facility] Total Joint Component/In sert Right: Hip [employer] 12/16/[id number] / / [id number] Imp Stem Femoral Biom Echo Std Offset [id number] - [id number] Implanted:Qty : 1 on 09/21/2021 by Anderson George MD at [facility] Total Joint Component/In sert Right: Hip [employer] 01/16/2031 [id number] / / [id number] Head Fem -3mm Ofst 36mm Hip Actb Mdlr Ty 1 Blx D [id number] - [id number] Implanted:Qty : 1 on 09/21/2021 by Anderson George MD at [facility] Total Joint Component/In sert Right: Hip [employer] 06/23/2031 [id number] / / [id number] Imp Shell Biom G7 Acetab Pps Billy Hole 52mm Sz E [id number] - [id number] Implanted:Qty : 1 on 12/21/2021 by Anderson George MD at [facility] Total Joint Component/In sert Left: Hip [employer] 10/30/2031 [id number] / / [id number] Imp Stem Femoral Biom Echo Std Offset [id number] - [id number] Implanted:Qty : 1 on 12/21/2021 by Anderson George MD at [facility] Total Joint Component/In sert Left: Hip [employer] 08/25/2031 [id number] / / [id number] Liner Actb G7 E 36mm Lngvt Hip Strl Lum Lf [id number] - [id number] Implanted:Qty : 1 on 12/21/2021 by Anderson George MD at [facility] Total Joint Component/In sert Left: Hip [employer] 08/30/[id number] / / [id number] Head Fem -3mm Ofst 36mm Hip Actb Dusty Ty 1 Blx D [id number] - [id number] Implanted:Qty : 1 on 12/21/2021 by Anderson George MD at [facility] Total Joint Component/In sert Left: Hip [employer] 06/30/2031 [id number] / / [id number] Procedures Procedure Name Priority Date/Time Associated Diagnosis Comments MRI IMAGING - HIM SCAN 10/05/2024 12:[address] IMAGING - HIM SCAN 10/02/2024 12:00 AM CDT MRI IMAGING - HIM SCAN 10/02/2024 12:[address] IMAGING - HIM SCAN 10/02/2024 12:00 AM CDT PAIN CAUDAL EPIDURAL INJECTION Routine 09/26/2024 10:40 AM CDT Lumbar radiculopathy XR EXTERNAL IMAGING SPINE Routine 09/10/2024 12:05 AM CDT XR EXTERNAL IMAGING SPINE Routine 09/10/2024 12:00 AM CDT TSH WITH FREE T4 REFLEX Add-On 05/02/2024 11:07 AM FIELD EVIDENCE TECHNICIAN Acquired hypothyroidism HEMOGLOBIN A1C Routine 05/02/2024 11:07 AM FIELD EVIDENCE TECHNICIAN Type 2 diabetes mellitus with diabetic neuropathy, [...] C FOOT EXAM Routine 04/27/2013 10:15 AM FIELD EVIDENCE TECHNICIAN Type 2 diabetes, HbA1C goal < 7% (H) PHQ-9 DEPRESSION SCREENING ORDER Routine 03/08/2011 from Last 3 Months or Most Recently Relevant to Health Maintenance Results * MRI Imaging - HIM Scan (10/05/2024 12:00 AM CDT) Only the most recent of2 resultswithin the time period is included. Anatomical Region Laterality Modality Other 10/05/2024 us Provider Outside IMG MRI ORDERABLES Final Result * CT Imaging - HIM Scan (10/02/2024 12:00 AM CDT) Only the most recent of2 resultswithin the time period is included. Anatomical Region Laterality Modality Computed Tomogra phy 10/02/2024 us Provider Outside IM CT ORDERABLES Final Result * PAIN Caudal Epidural Injection (09/26/2024 10:40 AM CDT) Anatomical Region Laterality Modality Radio Fluoroscop y Narrative 09/26/2024 10:53 AM CDT Table formatting from the original result was not included. Images from the original result were not included. [facility] - Procedure [...] the procedure. Diagnosis: Lumbar spondylosis; Lumbar radiculitis/radiculopathy Cooler Worker: Daniel Otto MD Anesthesia: none Indications: Angela [...] She was able to have a caudal ARTUHR in the past but it was not [...] with free T4 reflex (05/02/2024 11:07 AM FIELD EVIDENCE TECHNICIAN) TSH 1.54 0.30 - 4.20 uIU/mL 05/03/2024 11:22 AM FIELD EVIDENCE TECHNICIAN [facility] Blood BLOOD SPECIMEN / Unknown Venipuncture / Unknown 05/02/2024 11:07 AM FIELD EVIDENCE TECHNICIAN 05/02/2024 11:07 AM FIELD EVIDENCE TECHNICIAN Herb Herman MD LAB - BLOOD ORDERABLES Final Res ult Performing Organization Address [facility]/ZIP Co de Phone Number [facility] [address] [place] [address], [facility] * (ABNORMAL) HEMOGLOBIN A1C (05/02/2024 11:07 AM FIELD EVIDENCE TECHNICIAN) Estimated Average Glucose 157(H) <117 mg/dL 05/02/2024 11:12 AM FIELD EVIDENCE TECHNICIAN LABORATORY Hemoglobin A1C 7.1(H) 0.0 - 5.6 % 05/02/2024 11:12 AM FIELD EVIDENCE TECHNICIAN LABORATORY Comment: Normal <5.7% Prediabetes 5.7-6.4% Diabetes 6.5% or higher Note: Adopted from ADA consensus guidelines. Blood BLOOD SPECIMEN / Unknown Venipuncture / Unknown 05/02/2024 11:07 AM FIELD EVIDENCE TECHNICIAN 05/02/2024 11:07 AM FIELD EVIDENCE TECHNICIAN Herb Herman MD LAB - BLOOD ORDERABLES Final Res ult Performing Organization Address City/[facility]/ZIP Co de Phone Number LABORATORY [facility] [address] [facility] (no room number, 1st floor of clinic) [place] [address], [facility] * Albumin Random Urine Quantitative [...] control, and institution of therapy with an coxxfxnteel-otkuhwdwzu-hijmpn (TIFFANY) inhibitor (if the patient can tolerate it). Urine MID-STREAM URINE SPECIMEN / Unknown Non-blood Collection / Unknown 08/01/2023 9:56 AM CDT 08/01/2023 9:56 AM CDT Herb Herman MD LAB - URINE ORDERABLES Final Res ult U LABORATORY [facility] [address] [facility], [address] * ALT (08/01/2023 9:51 AM CDT) [facility] ALT 12 0 - 50 U/L 08/01/2023 5:5 4 PM CDT [facility] LABORATORY Blood BLOOD SPECIMEN / Unknown Venipuncture / Unknown 08/01/2023 9:51 AM CDT 08/01/2023 9:51 AM CDT Herb Herman MD LAB - BLOOD ORDERABLES Final Res ult LABORATORY [facility] [address] [facility], [address] * (ABNORMAL) Basic metabolic panel (Ca, [...] BLOOD ORDERABLES Final Res ult UU LABORATORY [facility] [address] [facility], [address] [place] [address], [facility] * MA Screening Digital Bilateral (07/26/2023 11:38 AM CDT) Anatomical Region Laterality Modality Breast Bilateral Mammography Impressions 07/26/2023 1:24 PM CDT IMPRESSION: ACR BI-RADS Category 1: Negative BREAST CANCER SCREENING RECOMMENDATION: Routine yearly mammography beginning at age 40 or as discussed with your provider. The results and recommendations of this examination will be communicated to the patient. Servando Pfeiffer Vinay Narrative 07/26/2023 1:24 PM CDT BILATERAL FULL [...] UM SPECIALTY CORE/PROT/ENDO UM Specialty Core/Prot/Endo [address] [facility], [address] * Eye Exam - HIM Scan [...] BLOOD ORDERABLES Final Res ult UU LABORATORY [facility] [address] [facility], [address] [place] [address], [facility] [phone] * (ABNORMAL) Hemoglobin (01/18/2022 7:30 AM CDT) Hemoglobin 10.0(L) 11.7 - 15.7 g/dL 01/18/2022 7:52 AM CDT LABORATORY Blood STRUCTURE OF LEFT UPPER LIMB / Unknown Venipuncture / Unknown 01/18/2022 7:30 AM CDT 01/18/2022 7:43 AM CDT Anderson George MD LAB - BLOOD ORDERABL ES Final Result LABORATORY [facility] [address] floor, [address] [place] [address], [facility] [phone] * DX Hip/Pelvis/Spine w Lat Fraction Kath (07/21/2017 9:14 AM CDT) Anatomical Region Laterality Modality Dexa Bone Mineral Den sity Narrative 07/25/2017 10:30 AM CDT BONE DENSITOMETRY [place] [address] [place] [address] 07/21/2017 PATIENT: Angela Lmaar CHART: [id number] : 1945 AGE: [age] year old SEX: female REFERRING PROVIDER: Daniel Plaza MD PROCEDURE: Bone density scanning was performed using DXA technology of the lumbar spine and hip. Scanning was performed on a [employer] scanner. Reporting is completed in the form [...] to another DXA performed on the same [employer] machine on 03/24 and 07/16. LATERAL VERTEBRAL ASSESSMENT Procedure: Vertebral fracture assessment was performed in the lateral decubitus position using a GunosyigTelerivet densitometer. Indications for VFA: none listed Confounding factors for VFA: Arthritis/degenerative disc disease. The LVA scan is interpretable from T7 to L4. VFA Findings: Using the semi-quantitative analysis of Gensebastián there was evidence of no spinal deformity [...] established for newborns, infants, and children NR [facility] Blood specimen (specimen) 09/23/2016 6:20 PM CDT 09/23/2016 6:21 PM CDT us Daniel Plaza MD LAB - BLOOD ORDERABLES Final Result [facility] [address] [place] [address] * PHQ-9 DEPRESSION SCREENING ORDER (03/08/2011) us Provider Abstract OTHER Final Result from Last 3 Months or Most Recently Relevant to Health Maintenance Insurance MEDICARE MEDICA PRIME SOLUTION [place] [id number] MEDICARE MEDICA PRIME SOLUTION Advance Directives For more information, please contact: [phone] * Full Code (Latest Code Status on [...] patie nt/ legal decision maker Care Teams Retail Loss Prevention Officer Relationship Specialty [place] [address] [place] [address] PCP - General Family Medicine 12/24/20 [place] [address] [place] [address] Assigned PCP 01/04/21 Trent Qureshi MD [facility] [address] [place] [address] Orthopaedic Surgery 09/16/21 Sammy Villa MD [address] [place] [address] [id number] Assigned Neuroscience Provider 10/01/24
--- OUTSIDE RECORDS SUMMARY | 2024-10-20 02:39 | XMS_ITS | Encounter Summary ---
Author Organization [facility] Address [facility] [place] [address] Care Team Providers Care Asset Accountant Name Role Phone Herb Herman MD Primary Care Provider Herb Herman MD Unavailable Stan Barnes MD Unavailable [phone] Trent Qureshi MD Unavailable [phone] Sammy Villa MD Unavailable Reason for Visit * Reason Onset Date Comments MyChart Communication 07/14/2022 Encounter Details Date Type Department Care Team (Latest Contact Info) Description 07/14/[address] [facility] [address] [place] [phone] [place] [address] [place] [address] MyChart Communication Social History Tobacco [...] How often do you attend chur or sabianist services? More than 4 times [...] Answer Date Recorded PHQ-2 Score 0 03/08/2022 [facility] Occupat ional [facility] - Occupational Stress Questionnaire Answer Date [...] AM CDT Legal Sex Female 3:11 AM STONE SPLITTER Gender Identity Female 01/16/2019 8:38 AM CDT Sexual Orientation Choose not to disclose 2021 11:32 AM STONE SPLITTER Occupation Industry Job Start Date Job End [...] Bueno RN - 07/14/2022 10:04 AM CDT Sitedesk message sent to patient, reply requested. Virginia Bueno R.N. documented in this encounter Plan of Treatment Upcoming Encounters Date Type Department Care Team (Late st Contact Info) Description 11/14/2024 10:30 AM CDT Office Visit [facility] [address] [place] [address] [place] [address] [place] [address] documented as of this encounter Visit Diagnoses Not on filedocumented in this encounter Additional Health Concerns Assessment Noted Time PHQ-9 Depression Total Score: 0 03/08/20 10:26 AM STONE SPLITTER documented as of this encounter Care Teams Asset Accountant Relationship Specialty [place] [address] [place] [address] PCP - General Family Medicine 12/24/20 [place] [address] [place] [address] Assigned PCP 01/04/21 Stan Barnes MD [address] [place] [address] [id number] Assigned Surgical Provider 08/30/21 08/31/23 Trent Qureshi MD [facility] [address] [place] [address] [id number] Orthopaedic Surgery 09/16/21 Sammy Villa MD [address] [place] [address] Assigned Neuroscience Provider 10/01/24 documented as of this encounter
--- OUTSIDE RECORDS SUMMARY | 2024-10-20 02:39 | XMS_ITS | Encounter Summary ---
Author Organization [place] Address [facility] [place] [address] Care Team Providers Care Launching Pad Mechanic Name Role Phone Herb Herman MD Primary Care Provider Herb Herman MD Unavailable Stan Barnes MD Unavailable [phone] Trent Qureshi MD Unavailable [phone] Sammy Villa MD Unavailable Encounter Details Date Type Department Care Team (Late st Contact Info) Description 08/04/2021 MyC Medical Advice [facility] [address] [place] [phone] [place] [address] [place] [address] Social History Tobacco Use Types [...] often do you attend chur ch or nondenominational services? More than 4 times per year 06/08/2021 Do you belong to any clubs o r organizations such as buddhist groups, unions, fraternal or athletic groups, or [...] Answer Date Recorded PHQ-2 Score 0 06/24/2021 [facility] Occupat ional Health - [...] AM CDT Legal Sex Female 3:11 AM VACUUM SPINDLE SANDER Gender Identity Female 01/16/2019 8:38 AM CDT Sexual Orientation Choose not to disclose 2021 11:32 AM VACUUM SPINDLE SANDER Occupation Industry Job Start Date Job End [...] CDT Office Visit [facility] [address] [place] [address] [place] [address] [place] [address] documented as of this encounter Visit Diagnoses Not on filedocumented in this encounter Additional Health Concerns Assessment Noted Time PHQ-9 Depression Total Score: 0 06/10/19 22 7:01 AM VACUUM SPINDLE SANDER documented as of this encounter Care Teams Launching Pad Mechanic Relationship Specialty [place] [address] [place] [address] PCP - General Family Medicine 12/24/20 [place] [address] [place] [address] Assigned PCP 01/04/21 Stan Barnes MD [address] [place] [address] [phone] Assigned Surgical Provider 08/30/21 08/31/23 Trent Qureshi MD [facility] [address] [place] [phone] Orthopaedic Surgery 09/16/21 Sammy Villa MD [address] [place] [address] [address] [place], [place] 395195 Assigned Neuroscience Provider 10/01/24 documented as of this encounter
--- OUTSIDE RECORDS SUMMARY | 2024-10-20 02:39 | XMS_ITS | Encounter Summary ---
Author Organization [place] Address [address] [place] [address]. [place] [address] Care Team Providers Care Route Agent Name Role Phone Herb Herman MD Primary Care Provider Herb Herman MD Unavailable Stan Barnes MD Unavailable [phone] Trent Qureshi MD Unavailable [phone] Sammy Villa MD Unavailable [phone] Encounter Details Date Type Department Care Team (Late st Contact Info) Description 08/10/2021 [facility] Medical Advice [facility] [address] 4th [place] [address] [place] Social History Tobacco Use Types Packs/Day Years [...] week 06/08/2021 How often do you attend [facility] or restorationist services? More than 4 times [...] 06/24/2021 [facility] Occupat ional [facility] [...] CDT Legal Sex Female 3:11 AM MANAGER MILITARY Gender Identity Female 01/16/2019 8:38 AM CDT Sexual Orientation Choose not to disclose 2021 11:32 AM MANAGER MILITARY Occupation Industry Job Start Date Job End [...] Description 11/14/2024 10:30 AM CDT Office Visit [facility] [address] [place] [phone] [place] [address] [place] [address] documented as of this encounter Visit Diagnoses Not on filedocumented in this encounter Additional Health Concerns Assessment Noted Time PHQ-9 Depression Total Score: 0 06/10/19 22 7:01 AM MANAGER MILITARY documented as of this encounter Care Teams Route Agent Relationship Specialty [place] [address] [place], [place] [phone] PCP - General Family Medicine 12/24/20 [place] [address] [place] [address] Assigned PCP 01/04/21 Stan Barnes MD [address] [place] [address] [id number] Assigned Surgical Provider 08/30/21 08/31/23 Trent Qureshi MD [facility] [address] [place] [address] [phone] Orthopaedic Surgery 09/16/21 Sammy Villa MD [address] [facility] 96 [place] [address] Assigned Neuroscience Provider 10/01/24 documented as of this encounter
--- OUTSIDE RECORDS SUMMARY | 2024-10-20 02:39 | XMS_ITS | Encounter Summary ---
Author Organization [place] Address [facility] [place] [address] Care Team Providers Care Rn Gastroenterology Name Role Phone Herb Herman MD Primary Care Provider Herb Herman MD Unavailable Stan Barnes MD Unavailable [phone] Trent Qureshi MD Unavailable [phone] Sammy Villa MD Unavailable Encounter Details Date Type Department Care Team (Late st Contact Info) Description 06/29/2021 MyC Medical Advice [facility] [address] [place] [address] [place] [address] [place] [address] Social History Tobacco Use Types [...] any clubs o r organizations such as amish groups, unions, fraternal or athletic groups, or [...] Answer Date Recorded PHQ-2 Score 0 06/24/2021 [facility] - Occupational [...] AM CDT Legal Sex Female 3:11 AM FOREST NURSERY WORKER Gender Identity Female 01/16/2019 8:38 AM CDT Sexual Orientation Choose not to disclose 2021 11:32 AM FOREST NURSERY WORKER COVID-19 Exposure Response Date Recorded In the last month, have you been in contact with someone who was confirmed or suspected to have Coronavirus / COVID-19? No / Unsure 06/24/2021 10:22 AM CDT documented as of this encounter Plan of Treatment Upcoming Encounters Date Type Department Care Team (Late st Contact Info) Description 11/14/2024 10:30 AM CDT Office Visit [address] [address] [place] [address] [place] [address] documented as of this encounter Visit Diagnoses Not on filedocumented in this encounter Additional Health Concerns Assessment Noted Time PHQ-9 Depression Total Score: 0 06/10/19 22 7:01 AM FOREST NURSERY WORKER documented as of this encounter Care Teams Rn Gastroenterology Relationship Specialty [place] [address] [place] [address] PCP - General Family Medicine 12/24/20 [place] [address] [place] [address] Assigned PCP 01/04/21 Stan Barnes MD [address] [place] [address] Assigned Surgical Provider 08/30/21 08/31/23 Trent Qureshi MD [facility] [address] [place] [address] Orthopaedic Surgery 09/16/21 Sammy Villa MD [address] [place] [address] 96 [place] [address] Assigned Neuroscience Provider 10/01/24 documented as of this encounter
--- OUTSIDE RECORDS SUMMARY | 2024-10-20 02:39 | XMS_ITS | Encounter Summary ---
Author Organization [place] Address [address] [place] [address] Care Team Providers Care Sewing Line Baler Name Role Phone Daniel Plaza MD Primary Care Provider Daniel Plaza MD Unavailable Daniel Plaza MD Unavailable Stan Barnes MD Unavailable [phone] Herb Herman MD Primary Care Provider Herb Herman MD Unavailable Stan Barnes MD Unavailable [phone] Trent Qureshi MD Unavailable [phone] Sammy Villa MD Unavailable [phone] Reason for Visit * Reason Onset Date Comments Sinus Problem 04/06/2017 Encounter Details Date Type Department Care Team (Late st Contact Info) Description 04/06/2017 MyC Medical Advice [facility] [address] [address] Daniel Plaza MD [address] [address] Sinus Problem Social History Tobacco Use Types Packs/Day Years Used Date Smoking Tobacco: Never Smokeless Tobacco: Never Alcohol Use Standard Drinks/Week Comments No 0 (1 standard drink = 0.6 oz pur e alcohol) Comments No Sex and Gender Information Value Date Recorded Sex Assigned at Female 01/16/2019 8:38 AM CDT Legal Sex Female 3:11 AM CARDIOVASCULAR RADIOLOGIC TECHNOLOGIST Gender Identity Female 01/16/2019 8:38 AM CDT Sexual Orientation Choose not to disclose 2021 11:32 AM CARDIOVASCULAR RADIOLOGIC TECHNOLOGIST documented as of this encounter Plan of Treatment Upcoming Encounters Date Type Department Care Team (Late st Contact Info) Description 11/14/2024 10:30 AM CDT Office Visit [facility] [address] [place] [address] [place] [address] [place] [address] documented as of this encounter Visit Diagnoses Diagnosis Acute sinusitis with symptoms > 10 days- Primary Acute sinusitis, unspecified documented in this encounter Additional Health Concerns Assessment Noted Time PHQ-9 Depression Total Score: 0 12/23/19 16 7:14 AM CDT documented as of this encounter Care Teams Sewing Line Baler Relationship Specialty Start Date End Date Daniel Plaza MD [address] [place] [address] PCP - General 06/29/10 12/23/20 Daniel Plaza MD [address] [place] [address] PCP - Assigned PCP 02/05/08 06/13/18 [place] [address] [place] [address] PCP - General Family Medicine 12/24/20 Daniel Plaza MD [address] [place] [phone] Assigned PCP 01/13/12 01/03/21 Stan Barnes MD [address] [place] [address] Assigned Surgical Provider 02/01/20 07/19/20 [place] [address] [place] [address] Assigned PCP 01/04/21 Stan Barnes MD [address] [place] [address] Assigned Surgical Provider 08/30/21 08/31/23 Trent Qureshi MD [facility] [address] [place] [address] Orthopaedic Surgery 09/16/21 Sammy Villa MD [address] [place] [address] 96 [place] [address] Assigned Neuroscience Provider 10/01/24 documented as of this encounter
--- OUTSIDE RECORDS SUMMARY | 2024-10-20 02:39 | XMS_ITS | Encounter Summary ---
Author Organization [place] Address [address] [place] [address] Care Team Providers Care Shelf Filler Name Role Phone Herb Herman MD Primary Care Provider [phone] Herb Herman MD Unavailable Trent Qureshi MD Unavailable [phone] Sammy Villa MD Unavailable [phone] Encounter Details Date Type Department Care Team (Latest Contact Info) Description 10/08/2024 Travel Social History Tobacco Use Types Packs/Day [...] any clubs o r organizations such as sikhism groups, unions, fraternal or athletic groups, or [...] Answer Date Recorded PHQ-2 Score 6 10/08/2024 [facility] - Occupational Stress Questionnaire [...] AM CDT Legal Sex Female 3:11 AM DROP HAMMER SET UP OPERATOR Gender Identity Female 01/16/2019 8:38 AM CDT Sexual Orientation Choose not to disclose 2021 11:32 AM DROP HAMMER SET UP OPERATOR 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 file documented as of this encounter Plan of Treatment Upcoming Encounters Date Type Department Care Team (Late st Contact Info) Description 11/14/2024 10:30 AM CDT Office Visit [address] [address] [place] [id number] [place] [address] documented as of this encounter Visit Diagnoses Not on filedocumented in this encounter Additional Health Concerns Assessment Noted Time PHQ-9 Depression Total Score: 22 10/08/2 025 3:11 PM CDT documented as of this encounter Care Teams Shelf Filler Relationship Specialty [place] [address] [place] [address] PCP - General Family Medicine 12/24/20 [place] [address] [place] [address] Assigned PCP 01/04/21 Trent Qureshi MD [facility] [address] [place] [address] Orthopaedic Surgery 09/16/21 Sammy Villa MD [address] [place] [address] 96 [place], [place] [address] Assigned Neuroscience Provider 10/01/24 documented as of this encounter
--- OUTSIDE RECORDS SUMMARY | 2024-10-20 02:39 | XMS_ITS | Encounter Summary ---
Author Organization [place] Address [address] [place] [address] Care Team Providers Care Building Materials Sales Attendant Name Role Phone Herb Herman MD Primary Care Provider [phone] Herb Herman MD Unavailable Stan Barnes MD Unavailable [phone] Trent Qureshi MD Unavailable [phone] Sammy Villa MD Unavailable [phone] Encounter Details Date Type Department Care Team (Late st Contact Info) Description 06/27/2023 MyC Medical Advice [address] [address] Soraya Hutchinson CMA Social History [...] week 06/08/2021 How often do you attend [facility] or hindu services? 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 file documented as of this encounter Plan of Treatment Upcoming Encounters Date Type Department Care Team (Late st Contact Info) Description 11/14/2024 10:30 AM CDT Office Visit [address] [address] [place] [address] [place] [address] documented as of this encounter Visit Diagnoses Not on filedocumented in this encounter Additional Health Concerns Assessment Noted Time PHQ-9 Depression Total Score: 0 05/02/19 24 10:52 AM FINGERNAIL TECHNICIAN documented as of this encounter Care Teams Building Materials Sales Attendant Relationship Specialty [place] [address] [place] [address] PCP - General Family Medicine 12/24/20 [place] [address] [place] [address] Assigned PCP 01/04/21 Stan Barnes MD [address] [place] [address] Assigned Surgical Provider 08/30/21 08/31/23 Trent Qureshi MD [facility] [address] [place] [address] Orthopaedic Surgery 09/16/21 Sammy Villa MD [address] [place] [address] 96 [place] [address] Assigned Neuroscience Provider 10/01/24 documented as of this encounter
--- OUTSIDE RECORDS SUMMARY | 2024-10-20 02:39 | XMS_ITS | Encounter Summary ---
Author Organization [place] Address [address] [place] [address] Care Team Providers Care Malt Specifications Control Assistant Name Role Phone Herb Herman MD Primary Care Provider Herb Herman MD Unavailable Stan Barnes MD Unavailable [phone] Trent Qureshi MD Unavailable [phone] Sammy Villa MD Unavailable [phone] Encounter Details Date Type Department Care Team (Late st Contact Info) Description 07/16/2022 [facility] [place] [place] Medical Advice [address] [address] Diane Moreno RN Social History [...] How often do you attend chur or scientology services? More than 4 times per year [...] Answer Date Recorded PHQ-2 Score 0 03/08/2022 [facility] Occupat ional [facility] - Occupational Stress Questionnaire Answer Date [...] place to sleep or slept in a group home (including now)? No 06/08/2021 Comments No Sex and Gender Information Value Date Recorded Sex Assigned at Female 01/16/2019 8:38 AM CDT Legal Sex Female 3:11 AM WHEELAGE CLERK Gender Identity Female 01/16/2019 8:38 AM CDT Sexual Orientation Choose not to disclose 2021 11:32 AM WHEELAGE CLERK Occupation Industry Job Start Date Job [...] Description 11/14/2024 10:30 AM CDT Office Visit [facility] [address] [place] [address] [place] [address] [place] [address] documented as of this encounter Visit Diagnoses Not on filedocumented in this encounter Additional Health Concerns Assessment Noted Time PHQ-9 Depression Total Score: 0 03/08/20 22 10:26 AM WHEELAGE CLERK documented as of this encounter Care Teams Malt Specifications Control Assistant Relationship Specialty [place] [address] [place] [address] PCP - General Family Medicine 12/24/20 [place] [address] [place] [address] Assigned PCP 01/04/21 Stan Barnes MD [address] [place] [address] Assigned Surgical Provider 08/30/21 08/31/23 Trent Qureshi MD [facility] [address] [place] [address] Orthopaedic Surgery 09/16/21 Sammy Villa MD [address] [place] [address] Assigned Neuroscience Provider 10/01/24 documented as of this encounter
--- OUTSIDE RECORDS SUMMARY | 2024-10-20 02:39 | XMS_ITS | Encounter Summary ---
Author Organization [place] Address [facility] [place] [address] Care Team Providers Care Staining Machine Operator Name Role Phone Herb Herman MD Primary Care Provider Herb Herman MD Unavailable Stan Barnes MD Unavailable [phone] Trent Qureshi MD Unavailable [phone] Sammy Villa MD Unavailable [phone] Reason for Visit * Reason Onset Date Comments MyChart Communication 01/06/2023 Encounter Details Date Type Department Care Team (Latest Contact Info) Description 01/06/2023 MyC Medical Advice [facility] [address] [place] [address] [place] [address] [place] [address] MyChart Communication Social History Tobacco [...] How often do you attend chur or samaritan services? More than 4 times per year 06/08/2021 Do you belong to any clubs o r organizations such as jewish groups, unions, fraternal or athletic groups, or [...] Answer Date Recorded PHQ-2 Score 0 08/02/2022 [facility] of Occupat ional Health - Occupational Stress [...] place to sleep or slept in a nursing home (including now)? No 06/08/2021 Adolescent Education Answer Date Record ed Getting School Help Needed Not on file 01/04 Comments No Sex and Gender Information Value Date Recorded Sex Assigned at Female 01/16/2019 8:38 AM CDT Legal Sex Female 3:11 AM APPLICATION ARCHITECT Gender Identity Female 01/16/2019 8:38 AM CDT Sexual Orientation Choose not to disclose 2021 11:32 AM APPLICATION ARCHITECT Occupation Industry Job Start Date Job [...] AM CDT Office Visit [facility] [address] [place] [address] [place] [address] [place] [address] documented as of this encounter Visit Diagnoses Not on filedocumented in this encounter Additional Health Concerns Assessment Noted Time PHQ-9 Depression Total Score: 1 08/03/19 23 1:10 PM CDT documented as of this encounter Care Teams Staining Machine Operator Relationship Specialty [place] [address] [place] [address] PCP - General Family Medicine 12/24/20 [place] [address] [place] [address] Assigned PCP 01/04/21 Stan Barnes MD [address] [place] [address] Assigned Surgical Provider 08/30/21 08/31/23 Trent Qureshi MD [facility] [address] [place] [address] 748625 Orthopaedic Surgery 09/16/21 Sammy Villa MD [address] [place] [address] 96 [place], [place] 328585 Assigned Neuroscience Provider 10/01/24 documented as of this encounter
--- OUTSIDE RECORDS SUMMARY | 2024-10-20 02:40 | XMS_ITS | Encounter Summary ---
Author Organization [place] Address [address] [place] [address] Care Team Providers Care Dumper Central Concrete Mixing Plant Name Role Phone Daniel Plaza MD Primary Care Provider Daniel Plaza MD Unavailable [phone] Daniel Plaza MD Unavailable Stan Barnes MD Unavailable [phone] Herb Herman MD Primary Care Provider [phone] Herb Herman MD Unavailable Stan Barnes MD Unavailable [phone] Trent Qureshi MD Unavailable [phone] Sammy Villa MD Unavailable Reason for Visit * Reason Onset Date Comments Respiratory Problems 02/16/2008 Encounter Details Date Type Department Care Team (Latest Contact Info) Description 02/15/2008 MyC Medical Advice [facility] [address] [address] Daniel Plaza MD [address] [address] Respiratory Problems Social History Tobacco Use Types Packs/Day Years Used Date Smoking Tobacco: Never Alcohol Use Standard Drinks/Week Comments Yes 0 (1 standard drink = 0.6 oz pur e alcohol) social Comments No Sex and Gender Information Value Date Recorded Sex Assigned at Female 01/16/2019 8:38 AM CDT Legal Sex Female 3:11 AM TRACK LAMINATING MACHINE TENDER Gender Identity Female 01/16/2019 8:38 AM CDT Sexual Orientation Choose not to disclose 2021 11:32 AM TRACK LAMINATING MACHINE TENDER documented as of this encounter Plan of Treatment Upcoming Encounters Date Type Department Care Team (Late st Contact Info) Description 11/14/2024 10:30 AM CDT Office Visit [facility] [address] [place] [address] [place] [address] [place] [address] documented as of this encounter Visit Diagnoses Not on filedocumented in this encounter Care Teams Dumper [employer] Mixing [employer] Relationship Specialty Start Date End Date Daniel Plaza MD [address] [place] [address] PCP - General 06/29/10 12/23/20 Daniel Plaza MD [address] [place] [address] PCP - Assigned PCP 02/05/08 06/13/18 [place] [address] [place] [address] PCP - General Family Medicine 12/24/20 Daniel Plaza MD [address] [place] [address] Assigned PCP 01/13/12 01/03/21 Stan Barnes MD [address] [place] [address] Assigned Surgical Provider 02/01/20 07/19/20 [place] [address] [place] [address] Assigned PCP 01/04/21 Stan Barnes MD [address] [place] [address] Assigned Surgical Provider 08/30/21 08/31/23 Trent Qureshi MD [facility] [address] [place] [address] Orthopaedic Surgery 09/16/21 Sammy Villa MD [address] [place] [address] Assigned Neuroscience Provider 10/01/24 documented as of this encounter
--- OUTSIDE RECORDS SUMMARY | 2024-10-20 02:40 | XMS_ITS | Encounter Summary ---
Author Organization [place] Address [address] [place] [address]. [place] [address] Care Team Providers Care Hide Examiner Name Role Phone Herb Herman MD Primary Care Provider Herb Herman MD Unavailable Trent Qureshi MD Unavailable [phone] Sammy Villa MD Unavailable [phone] Reason for Visit * Reason Onset Date Comments MyChart Communication 03/30/2024 Encounter Details Date Type Department Care Team (Latest Contact Info) Description 03/30/2024 MyC Medical Advice [facility] [place] [address] [place] [address] [place] [address] [place] [address] MyChart Communication Social History Tobacco [...] often do you attend chur ch or advent services? 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 file documented as of this encounter Plan of Treatment Upcoming Encounters Date Type Department Care Team (Late st Contact Info) Description 11/14/2024 10:30 AM CDT Office Visit [address] [address] [place] [address] [place] [address] documented as of this encounter Visit Diagnoses Not on filedocumented in this encounter Additional Health Concerns Assessment Noted Time PHQ-9 Depression Total Score: 0 05/02/19 24 10:52 AM CLINICAL LAW PROFESSOR documented as of this encounter Care Teams Hide Examiner Relationship Specialty Start [place]b [place] [address] [place] [address] PCP - General Family Medicine 12/24/20 [place] [address] [place] [address] Assigned PCP 01/04/21 Trent Qureshi MD [facility] [address] [place] [address] Orthopaedic Surgery 09/16/21 Sammy Villa MD [address] [place] [address] 96 [place], [place] [id number] Assigned Neuroscience Provider 10/01/24 documented as of this encounter
--- OUTSIDE RECORDS SUMMARY | 2024-10-20 02:40 | XMS_ITS | Encounter Summary ---
Author Organization [place] Address [address] [place] [address] Care Team Providers Care Hydrometallurgical Engineer Name Role Phone Herb Herman MD Primary Care Provider [phone] Herb Herman MD Unavailable Stan Barnes MD Unavailable [phone] Trent Qureshi MD Unavailable [phone] Sammy Villa MD Unavailable [phone] Encounter Details Date Type Department Care Team (Late st Contact Info) Description 09/15/2021 Orders Only [facility] [address] [place] [address] Manny Petersen MD [address] [place], [place] [id number] Encounter for laboratory testing for COVID-19 virus [...] often do you attend chur ch or presybeterian services? More than 4 times per year [...] Answer Date Recorded PHQ-2 Score 0 09/15/2021 [facility] of Occupat ional [...] AM CDT Legal Sex Female 3:11 AM OPERATIONS SUPERVISOR CHEMICAL CLEANING Gender Identity Female 01/16/2019 8:38 AM CDT Sexual Orientation Choose not to disclose 2021 11:32 AM OPERATIONS SUPERVISOR CHEMICAL CLEANING Occupation Industry Job Start Date Job End [...] Description 11/14/2024 10:30 AM CDT Office Visit [facility] [address] [place] [phone] Herb Herman MD [address] [place] [address] documented as of this encounter Results * [...] COVID-19. This test was validated by the [facility]. This laboratory is certified under the Clinical Laboratory Improvement Amendments of 1988 (CLIA-88) as qualified to perform high and/or moderate complexity laboratory testing. Manny Petersen MD LAB - MICRO GENERAL ORDERABLES F inal Result [facility] Inf. Diseases Diag. Lab [address] [facility], Room [address] [place] [phone] [phone] documented in this encounter Visit Diagnoses Diagnosis Encounter for laboratory testing for COVID-19 virus documented in this encounter Additional Health Concerns Assessment Noted Time PHQ-9 Depression Total Score: 1 08/23/19 22 7:03 AM CDT documented as of this encounter Care Teams Hydrometallurgical Engineer Relationship Specialty [place] [address] [place] [address] PCP - General Family Medicine 12/24/20 [place] [address] [place] [address] Assigned PCP 01/04/21 Stan Barnes MD [address] [place] [address] 484025 Assigned Surgical Provider 08/30/21 08/31/23 Trent Qureshi MD [facility] [address] [place] [address]13155 Orthopaedic Surgery 09/16/21 Sammy Villa MD [address] [facility] 96 [place] [address] Assigned Neuroscience Provider 10/01/24 documented as of this encounter
--- OUTSIDE RECORDS SUMMARY | 2024-10-20 02:40 | XMS_ITS | Encounter Summary ---
Author Organization [place] Address [address] [place] [address] Care Team Providers Care Conversion Developer Name Role Phone Herb Herman MD Primary Care Provider Herb Herman MD Unavailable Trent Qureshi MD Unavailable [phone] Sammy Villa MD Unavailable Encounter Details Date Type Department Care Team (Late st Contact Info) Description 02/20/2024 [facility] Medical Advice [address] [address] Brooke Barnes Social History Tobacco [...] often do you attend chur ch or jew services? 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 file documented as of this encounter Plan of Treatment Upcoming Encounters Date Type Department Care Team (Late st Contact Info) Description 11/14/2024 10:30 AM CDT Office Visit [address] [address] [place] [address] [place] [address] documented as of this encounter Visit Diagnoses Not on filedocumented in this encounter Additional Health Concerns Assessment Noted Time PHQ-9 Depression Total Score: 0 05/02/19 24 10:52 AM TRAINING DEVELOPER documented as of this encounter Care Teams Conversion Developer Relationship Specialty [place] [address] [place] [address] PCP - General Family Medicine 12/24/20 [place] [address] [place] [address] Assigned PCP 01/04/21 Trent Qureshi MD [facility] [address] [place] [address] [id number] Orthopaedic Surgery 09/16/21 Sammy Villa MD [address] [place] [address] 96 [place], [place] 720945 Assigned Neuroscience Provider 10/01/24 documented as of this encounter
--- OUTSIDE RECORDS SUMMARY | 2024-10-20 02:40 | XMS_ITS | Clinical Summary ---
Author Organization [facility] Address [address] [place] [address] Care Team Providers Care Doughnut Icer Machine Name Role Phone Herb Herman MD Primary Care Provider Allergies Active Allergy Reactions Criticality Noted Date Comments Atorvastatin 12/22/2015 myalgias Doxycycline Nausea Medium 03/08/2022 vomiting Erythromycin 02/10/1996 stomach cramps Morphine Anaphylaxis High 03/11/2001 respiratory arrest PT TOLERATES OXYCODONE Niacin 09/23/2010 Hot flashes Piroxicam 11/29/2012 GI upset Pravastatin 06/05/2018 Myalgias Rosuvastatin 04/27/2013 myalgias Simvastatin 07/19/2016 muscle cramps, weakness in legs Medications amitriptyline (ELAVIL) 25 mg oral tablet Take 1 tablet (25 mg) by mouth Daily. 5 Active amoxicillin (AMOXIL) 500 mg oral capsule TAKE 4 TABLETS by mouth 1 HOUR BEFORE DENTAL APPOINTMENT.* 5 Active levothyroxine (SYNTHROID) 137 mcg oral tablet Take 1 tablet (137 mcg) by mouth Daily. 5 Active metFORMIN (GLUCOPHAGE) 1,000 mg oral tablet Take 1 tablet (1,000 mg) by mouth twice a day. 5 Active ergocalciferol (VITAMIN D2) 1,250 mcg (50,000 unit) oral capsule TAKE ONE CAPSULE BY MOUTH WEEKLY ON Wednesdays 5 Active omeprazole (PRILOSEC) 20 mg oral delayed release capsule TAKE ONE CAPSULE BY MOUTH ONE TIME DAILY as needed.* 5 Active traZODone (DESYREL) 50 mg oral tablet Take 1 tablet (50 mg) by mouth Daily. 5 Active clopidogrel (PLAVIX) 75 mg oral tablet Take 1 tablet (75 mg) by mouth Daily. 5 Active ezetimibe (ZETIA) 10 mg oral tablet Take 1 tablet (10 mg) by mouth Daily. 5 Active lisinopriL-hydr ochlorothiazide (ZESTORETIC) 20-25 mg oral tablet TAKE ONE TABLET BY MOUTH ONE TIME DAILY* 5 Active blood sugar diagnostic Strip testing strips USE TO TEST BLOOD GLUCOSE LEVELS ONCE DAILY. 4 Active aspirin 81 mg oral enteric coated tablet Take 1 tablet (81 mg) by mouth once daily. 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/18/2024): R lower lip, recurrent Essential hypertension 02/21/2003 Hyperlipidemia LDL goal <100 02/21/2003 Primary osteoarthritis involving multiple joints 02/21/2003 Encounters Date Type Department Care Team Description 10/18/2024 2:00 PM CDT Office Visit [facility] [address] [place] [address] Felisha Perez, REVERSE UNIT OPERATOR, SAUSAGE WRAPPER Speech disturbance, unspecified type (Primary Dx); Abnormality of gait and mobility; History of multiple strokes; Right hand weakness; Right hand paresthesia; Essential hypertension from Last 3 Months Social History Tobacco Use Types Packs/Day Years [...] PM CDT Sexual Orientation Not on file Last Filed Vital Signs Vital Sign Reading Time Taken Comments Blood Pressure - - Pulse - - Temperature - - Respiratory Rate - - Oxygen Saturation - - Inhaled Oxygen Concentration - - Weight 99.3 kg (219 lb) 10/18/2024 2:09 PM CDT Height 162.6 cm (5' 4) 10/18/2024 2:09 PM CDT Body Mass Index 37.59 10/18/2024 2:09 PM CDT Plan of Treatment Health Maintenance Due Date Last Done Comments Colonoscopy 1945 Eye Exam 1945 Hepatitis C Screening 1945 Osteoporosis Screening 1945 Depression Follow-Up (PHQ-9) 10/18/1948 Yearly Review of HCD 10/18/1997 Zoster Vaccine (1 of 2) 10/18/1997 Medicare Wellness Visit 04/27/2014 04/27/2013 Adult Tetanus Booster 02/19/2020 02/18/2010 RSV Vaccines (1 - 1-dose 75+ series) 10/18/2022 COVID-19 Vaccine ( season) 2023 03/08/2022, 07/13/2021, 02/11/2021, Additional history exists Creatinine 07/31/2024 08/01/2023 HgbA1C 10/30/2024 05/02/2024 Influenza Vaccine (#1) 2024 2, 12/24/2020, 02/06/2020, Additional history exists Thyroid-Stimulating Hormone (TSH) 05/02/2025 05/02/2024 Pneumococcal 50+ Years Completed 6, 04/27/2013, 02/05/2008, Additional history exists Meningococcal B Vaccine Aged Out No l onger eligible based on patient's age to complete this topic Insurance W-21 Care Teams Doughnut Icer Machine Relationship Specialty [place] [address] [place] [address] PCP - General Family Medicine - 10/18/24
--- OUTSIDE RECORDS SUMMARY | 2024-10-20 02:40 | XMS_ITS | Encounter Summary ---
Author Organization [place] Address [address] [place] [address]. [place] [address] Care Team Providers Care Manager Photo Name Role Phone Herb Herman MD Primary Care Provider Herb Herman MD Unavailable Stan Barnes MD Unavailable [phone] Trent Qureshi MD Unavailable [phone] Sammy Villa MD Unavailable Encounter Details Date Type Department Care Team (Late st Contact Info) Description 05/09/2023 MyC Medical Advice [facility] [address] [address] Stan Barnes MD [address] [place] [address] Social History Tobacco Use Types Packs/Day [...] How often do you attend chur or alevism services? 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 file documented as of this encounter Plan of Treatment Upcoming Encounters Date Type Department Care Team (Late st Contact Info) Description 11/14/2024 10:30 AM CDT Office Visit [address] [address] [place] [address] [place] [address] documented as of this encounter Visit Diagnoses Not on filedocumented in this encounter Additional Health Concerns Assessment Noted Time PHQ-9 Depression Total Score: 0 05/02/19 24 10:52 AM CANVAS CUTTER HAND documented as of this encounter Care Teams Manager Photo Relationship Specialty Start Date [place] [id number] [place] [address] [id number] PCP - General Family Medicine 12/24/20 [place] [address] [place] [address] Assigned PCP 01/04/21 Stan Barnes MD [address] [place] [address]5055 Assigned Surgical Provider 08/30/21 08/31/23 Trent Qureshi MD [facility] [address] [place] [address] [id number] Orthopaedic Surgery 09/16/21 Sammy Villa MD 420 [facility] 96 [place], [place] [address] Assigned Neuroscience Provider 10/01/24 documented as of this encounter
--- OUTSIDE RECORDS SUMMARY | 2024-10-20 02:40 | XMS_ITS | Encounter Summary ---
Author Organization [place] Address [address] [place] [address] Care Team Providers Care Animal Rescuer Name Role Phone Herb Herman MD Primary Care Provider [phone] Herb Herman MD Unavailable Trent Qureshi MD Unavailable [phone] Encounter Details Date Type Department Care [...] any clubs o r organizations such as adventism groups, unions, fraternal or athletic groups, or [...] Answer Date Recorded PHQ-2 Score 0 05/02/2024 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 file documented as of this encounter Plan of Treatment Upcoming Encounters Date Type Department Care Team (Late st Contact Info) Description 11/14/2024 10:30 AM CDT Office Visit [facility] [address] [place] [phone] [place] [address] [place] [address] documented as of this encounter Visit Diagnoses Not on filedocumented in this encounter Additional Health Concerns Assessment Noted Time PHQ-9 Depression Total Score: 0 05/02/19 25 10:13 AM RECRUITMENT CONSULTANT documented as of this encounter Care Teams Animal Rescuer Relationship Specialty [place] [address] [place] [address] PCP - General Family Medicine 12/24/20 [place] [address] [place] [address] Assigned PCP 01/04/21 Trent Qureshi MD [facility] [address] [place] [address] Orthopaedic Surgery 09/16/21 documented as of this encounter
--- OUTSIDE RECORDS SUMMARY | 2024-10-20 02:40 | XMS_ITS | Encounter Summary ---
Author Organization [facility] Address [address] [place] [address] Care Team Providers Care Date Night Sitter Name Role Phone Daniel Plaza MD Primary Care Provider [phone] Daniel Plaza MD Unavailable Daniel Plaza MD Unavailable Stan Barnes MD Unavailable [phone] Herb Herman MD Primary Care Provider Herb Herman MD Unavailable Stan Barnes MD Unavailable [phone] Trent Qureshi MD Unavailable [phone] Sammy Villa MD Unavailable Encounter Details Date Type Department Care Team (Late st Contact Info) Description 02/28/2008 MyC Medical Advice [facility] [address] [address] Daniel Plaza MD [address] [phone] Social History Tobacco Use Types Packs/Day Years Used Date Smoking Tobacco: Never Alcohol Use Standard Drinks/Week Comments Yes 0 (1 standard drink = 0.6 oz pur e alcohol) social Comments No Sex and Gender Information Value Date Recorded Sex Assigned at Female 01/16/2019 8:38 AM CDT Legal Sex Female 3:11 AM MICA INSPECTOR Gender Identity Female 01/16/2019 8:38 AM CDT Sexual Orientation Choose not to disclose 2021 11:32 AM MICA INSPECTOR documented as of this encounter Plan of Treatment Upcoming Encounters Date Type Department Care Team (Late st Contact Info) Description 11/14/2024 10:30 AM CDT Office Visit [facility] [address] [place] [phone] [place] Herman [place] [address] [place] [address] documented as of this encounter Visit Diagnoses Not on filedocumented in this encounter Care Teams Date Night Sitter Relationship Specialty Start Date End Date Daniel Plaza MD [address] [place] [address] PCP - General 06/29/10 12/23/20 Daniel Plaza MD [address] [place] [address] PCP - Assigned PCP 02/05/08 06/13/18 [place] [address] [place] [address] PCP - General Family Medicine 12/24/20 Daniel Plaza MD [address] [place] [phone] Assigned PCP 01/13/12 01/03/21 Stan Barnes MD [address] [place] [address] Assigned Surgical Provider 02/01/20 07/19/20 [place] [address] [place] [address] Assigned PCP 01/04/21 Stan Barnes MD [address] [place] [address] Assigned Surgical Provider 08/30/21 08/31/23 Trent Qureshi MD [facility] [address] [place] [address] Orthopaedic Surgery 09/16/21 Sammy Villa MD [address] [place] [address] Assigned Neuroscience Provider 10/01/24 documented as of this encounter
--- OUTSIDE RECORDS SUMMARY | 2024-10-20 02:40 | XMS_ITS | Encounter Summary ---
Author Organization [place] Address [address] [place] [address] Care Team Providers Care Label Sewer Name Role Phone Herb Herman MD Primary Care Provider [phone] Herb Herman MD Unavailable Trent Qureshi MD Unavailable [phone] Reason for Visit * Reason Onset Date Comments Previsit 09/19/2024 Encounter Details Date Type Department Care Team (Late st Contact Info) Description 09/19/2024 PRE VISIT [facility] [address] [place] [address] Sammy Villa MD 420 [facility] 96 [place] [address] Previsit Social History Tobacco Use [...] often do you attend [facility] or gnosticist services? More than 4 times per year 06/08/2021 Do you belong to any clubs o r organizations such as druze groups, unions, fraternal or athletic groups, or [...] AM CDT Legal Sex Female 3:11 AM ENGINEERING TECHNICAL WRITER Gender Identity Female 01/16/2019 8:38 AM CDT Sexual Orientation Choose not to disclose 2021 11:32 AM ENGINEERING TECHNICAL WRITER Occupation Industry Job Start Date Job End [...] Description 11/14/2024 10:30 AM CDT Office Visit [facility] [address] [place] [address] [place] [address] [place] [address] documented as of this encounter Visit Diagnoses Not on filedocumented in this encounter Additional Health Concerns Assessment Noted Time PHQ-9 Depression Total Score: 0 05/02/19 25 10:13 AM ENGINEERING TECHNICAL WRITER documented as of this encounter Care Teams Label Sewer Relationship Specialty [place] [address] [place] [address] PCP - General Family Medicine 12/24/20 [place] [address] [place] [address] Assigned PCP 01/04/21 Trent Qureshi MD [facility] [address] [place] [address] Orthopaedic Surgery 09/16/21 documented as of this encounter
--- OUTSIDE RECORDS SUMMARY | 2024-10-20 02:40 | XMS_ITS | Encounter Summary ---
Author Organization [facility] Address [address] [place] [address]. [place] [address] Care Team Providers Care Movable Bulkhead Installer Name Role Phone Herb Herman MD Primary Care Provider [phone] Herb Herman MD Unavailable Trent Qureshi MD Unavailable [phone] Reason for Visit * Reason Onset Date Comments Procedure 09/20/2024 L3-4 or L4-5 Int erlaminar ARTHUR Encounter Details Date Type Department Care Team (Late st Contact Info) Description 09/20/2024 [facility] Pain Management [address] [place] [address] Pain Management Program, [facility] Procedure (L3-4 or L4-5 Interlaminar ARTHUR) Social [...] week 06/08/2021 How often do you attend [facility] or mormon services? 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 [facility] If choosing [facility] for location, please inform patient: [facility] is a Hospital based clinic. Before your visit, you should check with your insurance about how it covers the charges for facility services in a hospital-based clinic.?? Procedure ordered by Dr. Villa Procedure ordered? L3-4 or L4-5 Interlaminar ARTHUR Transforaminal Cervical ARTHUR - Send to [facility] - No Community Site providers perform this procedure What insurance would patient like us to bill for this procedure? Medicare/Medica IF SCHEDULING IN [place] PAIN OR SPINE PLEASE SCHEDULE AT LEAST [...] to Marcy Lees Is patient scheduled at [facility]? No If YES, route every encounter to [facility] CARE NAVIGATION POOL [[phone]] Is an engineering faculty member needed? No Patient has a wheat combine driver home? (Review Grid) YES: ok Any chance of ? NO If YES, do NOT schedule and route to spooler operator automatic - Dr. Delgado route to PM&R Nurse [[id number]] Is patient actively being treated for cancer or immunocompromised? No If YES, do NOT schedule and route to spooler operator automatic/ Dr. Delgado's Team Does the patient have a bleeding or clotting disorder? No If YES, okay to schedule AND route to RN nurse / Dr. Delgado's Team (For any patients with platelet count <100, RN must forward to provider) Is patient taking any Blood Thinners OR Antiplatelet medication? No If hold needed, do NOT schedule, route to spooler operator automatic/ Dr. Delgado's Team Examples: Blood Thinners: (Coumadin, Warfarin, Jantoven, Pradaxa, Xarelto, Eliquis, Edoxaban, Enoxaparin, Lovenox, Heparin, Arixtra, Fondaparinux or Fragmin) Antiplatelet Medications: (Plavix, Brilinta or Effient) Is patient taking any aspirin products (includes: Aspirin 81 mg, Excedrin, and Fiorinal)? No. If yes route to spooler operator automatic/ Dr. Delgado's Team - Do not schedule [...] to appointment notes AND route to the spooler operator automatic/ Dr. Delgado's Team If ARTHUR and Contrast Dye / Iodine Allergy? DO NOT SCHEDULE, route to spooler operator automatic/ Dr. Delgado's Team Allergies: Morphine, Doxycycline, Atorvastatin, [...] Orders Needed Please send all injections to layup worker Not Applicable Red Flags? Not Applicable Does the patient have any questions? NO Renetta Castano [facility] * Addendum Note - Destiny Velazquez RN - 09/20/2024 2:37 PM CDTAddended by: DESTINY VELAZQUEZ on: 09/21/2024 12:19 PM Modules accepted: Orders documented in this encounter Plan of Treatment Upcoming Encounters Date Type Department Care Team (Late st Contact Info) Description 11/14/2024 10:30 AM CDT Office Visit [facility] [address] [place] [phone] [place] [address] [place] [address] documented as of this encounter Visit Diagnoses Diagnosis Lumbar radiculopathy- Primary Thoracic or lumbosacral neuritis or radiculitis, unspecified documented in this encounter Additional Health Concerns Assessment Noted Time PHQ-9 Depression Total Score: 0 05/02/19 25 10:13 AM LINE ASSEMBLY UTILITY WORKER documented as of this encounter Care Teams Movable Bulkhead Installer Relationship Specialty [place] [address] [place] [address] PCP - General Family Medicine 12/24/20 [place] [address] [place] [address] Assigned PCP 01/04/21 Trent Qureshi MD [facility] [address] [place] [address] Orthopaedic Surgery 09/16/21 documented as of this encounter
--- OUTSIDE RECORDS SUMMARY | 2024-10-20 02:40 | XMS_ITS | Encounter Summary ---
Author Organization [facility] Address [address] [place] [address]. [place] [address] Care Team Providers Care Building Mover Name Role Phone Herb Herman MD Primary Care Provider [phone] Herb Herman MD Unavailable Stan Barnes MD Unavailable [phone] Trent Qureshi MD Unavailable [phone] Sammy Villa MD Unavailable [phone] Encounter Details Date Type Department Care Team (Late st Contact Info) Description 08/27/2021 MyC Medical Advice [address] 5[address] [place] [address] Rachelle Mai RN Social History [...] How often do you attend chur or latter-day services? More than 4 times [...] Answer Date Recorded PHQ-2 Score 0 08/25/2021 [facility] - Occupational Stress Questionnaire Answer [...] a nursing home (including now)? No 06/08/2021 Comments No Sex and Gender Information Value Date Recorded Sex Assigned at Female 01/16/2019 8:38 AM CDT Legal Sex Female 3:11 AM EDUCATION MANAGER Gender Identity Female 01/16/2019 8:38 AM CDT Sexual Orientation Choose not to disclose 2021 11:32 AM EDUCATION MANAGER Occupation Industry Job Start Date Job [...] AM CDT Office Visit [facility] [address] [place] [address] [place] Herman [place] [address] [place] [address] [phone] documented as of this encounter Visit Diagnoses Not on filedocumented in this encounter Additional Health Concerns Assessment Noted Time PHQ-9 Depression Total Score: 1 08/23/19 22 7:03 AM CDT documented as of this encounter Care Teams Building Mover Relationship Specialty [place] [address] [place], [place] [phone] PCP - General Family Medicine 12/24/20 [place] [address] [place] [address] Assigned PCP 01/04/21 Stan Barnes MD [address] [place] [phone] Assigned Surgical Provider 08/30/21 08/31/23 Trent Qureshi MD [facility] [address] [place] [address] 873605 Orthopaedic Surgery 09/16/21 Sammy Villa MD 420 [facility] 96 [place] [address] Assigned Neuroscience Provider 10/01/24 documented as of this encounter
--- OUTSIDE RECORDS SUMMARY | 2024-10-20 02:40 | XMS_ITS | Encounter Summary ---
Author Organization [facility] Address [address] [place] [address] Care Team Providers Care Geospatial Applications Developer Name Role Phone Herb Herman MD Primary Care Provider [phone] Herb Herman MD Unavailable Trent Qureshi MD Unavailable [phone] Encounter Details Date Type Department Care [...] often do you attend chur ch or jain services? 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 file documented as of this encounter Plan of Treatment Upcoming Encounters Date Type Department Care Team (Late st Contact Info) Description 11/14/2024 10:30 AM CDT Office Visit [facility] [address] [place] [address] [place] [address] [place] [address] documented as of this encounter Visit Diagnoses Not on filedocumented in this encounter Additional Health Concerns Assessment Noted Time PHQ-9 Depression Total Score: 0 05/02/19 25 10:13 AM COTTON TIER documented as of this encounter Care Teams Geospatial Applications Developer Relationship Specialty [place] [address] [place] [address] PCP - General Family Medicine 12/24/20 [place] [address] [place] [address] Assigned PCP 01/04/21 [place] Qureshi MD [facility] [address] [place] [address] Orthopaedic Surgery 09/16/21 documented as of this encounter
--- OUTSIDE RECORDS SUMMARY | 2024-10-20 02:40 | XMS_ITS | Encounter Summary ---
Author Organization [facility] Address [address] [place] [address] Care Team Providers Care Crop Picker Name Role Phone Herb Herman MD Primary Care Provider [phone] Herb Herman MD Unavailable Trent Qureshi MD Unavailable [phone] Reason for Referral * Consultation (Routine: Next available opening) - Closed Specialty Diagnoses / Procedures Referred By Contac t Referred To Contact Orthopedics Diagnoses Low back pain Douglas Hernandez MD [facility] [address] [facility] [address] [place] [address] Phone: tel: fax: Referral ID Status Reason Start Date Expiration Date Visits Re quested Visits Authorized [id number] Closed 09/11/2024 09/11/2025 1 1 Scheduling Instructions Evaluate severe lumbar spinal stenosis Question Answer Consult Type: Other Type: Per Protocol My Clinical Question Is: low back pain Scheduling Instructions: [facility] team will contact you via phone, text, email or MyChart within 2 business days to help you schedule your appointment, or you may contact the [facility] [facility] Team at . Comments [facility] External Fax Details Provider: Douglas Hernandez Affiliated with: [facility] Clinic Location: [place] Phone number: [phone] Fax number: [phone] CT Patient: No Medical records received with referral? No, Referral only [facility] team will contact you via phone, text, email or MyChart within 2 business days to help you schedule your appointment, or you may contact the [facility] [facility] Team at . Encounter Details Date Type Department Care Team (Latest Contact Info) Description 09/11/2024 Transcribe Orders GENERIC EXTERNAL DATA DEPARTMENT Douglas Hernandez MD [facility] [address] [place] [address] [place] [address] Low back pain (Primary Dx) Social History [...] Answer Date Recorded PHQ-2 Score 0 05/02/2024 [facility] [place] of Occupat ional Health - Occupational Stress [...] AM CDT Legal Sex Female 3:11 AM FORMS BUILDER Gender Identity Female 01/16/2019 8:38 AM CDT Sexual Orientation Choose not to disclose 2021 11:32 AM FORMS BUILDER 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 file documented as of this encounter Plan of Treatment Upcoming Encounters Date Type Department Care Team (Late st Contact Info) Description 11/14/2024 10:30 AM CDT Office Visit [facility] [address] [place] [address] [place] [address] [place] [address] Scheduled Referrals Name Type Priority Associated Diagnoses Orde r Schedule Orthopedic [facility] Referral Referral Routine: Next available opening Low back pain Expected: 09/11/2024 (Approximate), Expires: 09/11/2025 documented as of this encounter Visit Diagnoses Diagnosis Low back pain- Primary Lumbago documented in this encounter Additional Health Concerns Assessment Noted Time PHQ-9 Depression Total Score: 0 05/02/19 25 10:13 AM FORMS BUILDER documented as of this encounter Care Teams Crop Picker Relationship Specialty [place] [address] [place] [address] PCP - General Family Medicine 12/24/20 [place] [address] [place] [address] Assigned PCP 01/04/21 [place] Qureshi MD [facility] [address] [place] [address] Orthopaedic Surgery 09/16/21 documented as of this encounter
--- OUTSIDE RECORDS SUMMARY | 2024-10-20 02:40 | XMS_ITS | Encounter Summary ---
Author Organization [facility] Address [address] [place] [address] Care Team Providers Care Display Coordinator Name Role Phone Daniel Plzaa MD Primary Care Provider Daniel Plaza MD Unavailable Daniel Plaza MD Unavailable Stan Barnes MD Unavailable [phone] Herb Herman MD Primary Care Provider Herb Herman MD Unavailable Stan Barnes MD Unavailable [phone] Trent Qureshi MD Unavailable [phone] Sammy Villa MD Unavailable Encounter Details Date Type Department Care Team (Late st Contact Info) Description 04/28/2013 MyC Medical Advice [facility] [address] [address] Daniel Plaza MD [address] [phone] Social History Tobacco Use Types Packs/Day Years Used Date Smoking Tobacco: Never Smokeless Tobacco: Never Alcohol Use Standard Drinks/Week Comments No 0 (1 standard drink = 0.6 oz pur e alcohol) Comments No Sex and Gender Information Value Date Recorded Sex Assigned at Female 01/16/2019 8:38 AM CDT Legal Sex Female 3:11 AM UNISHEAR OPERATOR Gender Identity Female 01/16/2019 8:38 AM CDT Sexual Orientation Choose not to disclose 2021 11:32 AM UNISHEAR OPERATOR documented as of this encounter Plan of Treatment Upcoming Encounters Date Type Department Care Team (Late st Contact Info) Description 11/14/2024 10:30 AM CDT Office Visit [facility] [address] [place] [phone] [place] [address] [place] [address] documented as of this encounter Visit Diagnoses Not on filedocumented in this encounter Care Teams Display Coordinator Relationship Specialty Start Date End Date Danile Plaza MD [address] [place] [address] PCP - General 06/29/10 12/23/20 Daniel Plaza MD [address] [place] [address] PCP - Assigned PCP 02/05/08 06/13/18 [place] [address] [place] [address] PCP - General Family Medicine 12/24/20 Daniel Plaza MD [address] [place] [phone] Assigned PCP 01/13/12 01/03/21 Stan Barnes MD [address] [place] [address] Assigned Surgical Provider 02/01/20 07/19/20 [place] [address] [place] [address] Assigned PCP 01/04/21 Stan Barnes MD [address] [place] [address] Assigned Surgical Provider 08/30/21 08/31/23 Trent Qureshi MD [facility] [address] [place] [address] Orthopaedic Surgery 09/16/21 Sammy Villa MD [address] [place] [address] 96 [place] [address] Assigned Neuroscience Provider 10/01/24 documented as of this encounter
--- OUTSIDE RECORDS SUMMARY | 2024-10-20 02:40 | XMS_ITS | Encounter Summary ---
Author Organization [facility] Address [address] [place] [address]. [place] [address] Care Team Providers Care Other Sports Official Name Role Phone Herb Herman MD Primary Care Provider [phone] Herb Herman MD Unavailable Trent Qureshi MD Unavailable [phone] Sammy Villa MD Unavailable [phone] Encounter Details Date Type Department Care Team (Late st Contact Info) Description 09/19/2024 [facility] Medical Advice [facility] Neurology [address], [address] [place] [phone] Ana Larsen, IRENE Social History Tobacco [...] any clubs o r organizations such as islam groups, unions, fraternal or athletic groups, or [...] Answer Date Recorded PHQ-2 Score 0 05/02/2024 [facility] [place] of Occupat ional Health - Occupational Stress [...] AM CDT Legal Sex Female 3:11 AM SOCK FOLDER Gender Identity Female 01/16/2019 8:38 AM CDT Sexual Orientation Choose not to disclose 2021 11:32 AM SOCK FOLDER 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 file documented as of this encounter Plan of Treatment Upcoming Encounters Date Type Department Care Team (Late st Contact Info) Description 11/14/2024 10:30 AM CDT Office Visit [facility] [address] [place] [phone] [place] [address] [place] [address] documented as of this encounter Visit Diagnoses Not on filedocumented in this encounter Additional Health Concerns Assessment Noted Time PHQ-9 Depression Total Score: 0 05/02/19 25 10:13 AM SOCK FOLDER documented as of this encounter Care Teams Other Sports Official Relationship Specialty [place] [address] [place] [address] PCP - General Family Medicine 12/24/20 [place] [address] [place] [address] Assigned PCP 01/04/21 [place] Qureshi MD [facility] [address] [place] [address]79[address] Orthopaedic Surgery 09/16/21 Sammy Villa MD [address] [place] [address]23[address] Assigned Neuroscience Provider 10/01/24 documented as of this encounter
--- OUTSIDE RECORDS SUMMARY | 2024-10-20 02:40 | XMS_ITS | Encounter Summary ---
Author Organization [facility] Address [address] [place] [address]. [place] [address] Care Team Providers Care Vegetable Thinner Name Role Phone Herb Herman MD Primary Care Provider Herb Herman MD Unavailable Trent Qureshi MD Unavailable [phone] Reason for Visit * Reason Comments Medication Refill Encounter Details Date Type Department Care Team (Late st Contact Info) Description 09/23/[address] [address] [place] [address] [place] [address] Medication Refill Social History Tobacco [...] week 06/08/2021 How often do you attend [facility] or sikh services? More than 4 times per year [...] Answer Date Recorded PHQ-2 Score 0 05/02/2024 [facility] of Occupat ional [...] AM CDT Legal Sex Female 3:11 AM CONVEYOR FEEDER Gender Identity Female 01/16/2019 8:38 AM CDT Sexual Orientation Choose not to disclose 2021 11:32 AM CONVEYOR FEEDER Occupation Industry Job Start Date Job End [...] 11/14/2024 10:30 AM CDT Office Visit [facility] [address] [place] [address] [place] [address] [place] [address] documented as of this encounter Visit Diagnoses Diagnosis Arthritis Arthropathy, unspecified, site unspecified documented in this encounter Additional Health Concerns Assessment Noted Time PHQ-9 Depression Total Score: 0 05/02/19 25 10:13 AM CONVEYOR FEEDER documented as of this encounter Care Teams Vegetable Thinner Relationship Specialty [place] [address] [place] [address] PCP - General Family Medicine 12/24/20 [place] [address] [place] [address] Assigned PCP 01/04/21 Trent Qureshi MD [facility] [address] [place] [address] Orthopaedic Surgery 09/16/21 documented as of this encounter
--- OUTSIDE RECORDS SUMMARY | 2024-10-20 02:40 | XMS_ITS | Encounter Summary ---
Author Organization [facility] Address [address] [place] [address] Care Team Providers Care Ornamental Metal Erector Name Role Phone Danile Plaza MD Primary Care Provider Daniel Plaza MD Unavailable Daniel Plaza MD Unavailable Stan Barnes MD Unavailable [phone] Herb Herman MD Primary Care Provider Herb Herman MD Unavailable Stan Barnes MD Unavailable [phone] Trent Qureshi MD Unavailable [phone] Sammy Villa MD Unavailable Encounter Details Date Type Department Care Team (Late st Contact Info) Description 12/24/2013 MyC Medical Advice [facility] [address] [address] Daniel Plaza MD [address] [phone] Social History Tobacco Use Types Packs/Day Years Used Date Smoking Tobacco: Never Smokeless Tobacco: Never Alcohol Use Standard Drinks/Week Comments No 0 (1 standard drink = 0.6 oz pur e alcohol) Comments No Sex and Gender Information Value Date Recorded Sex Assigned at Female 01/16/2019 8:38 AM CDT Legal Sex Female 3:11 AM PROBATE PARALEGAL Gender Identity Female 01/16/2019 8:38 AM CDT Sexual Orientation Choose not to disclose 2021 11:32 AM PROBATE PARALEGAL documented as of this encounter Plan of Treatment Upcoming Encounters Date Type Department Care Team (Late st Contact Info) Description 11/14/2024 10:30 AM CDT Office Visit [facility] [address] [place] [phone] [place] [address] [place] [address] documented as of this encounter Visit Diagnoses Not on filedocumented in this encounter Care Teams Ornamental Metal Erector Relationship Specialty Start Date End Date Daniel Plaza MD [address] [place] [address] PCP - General 06/29/10 12/23/20 Daniel Plaza MD [address] [place] [address] PCP - Assigned PCP 02/05/08 06/13/18 [place] [address] [place] [address] PCP - General Family Medicine 12/24/20 Daniel Plaza MD [address] [place] [address] Assigned PCP 01/13/12 01/03/21 Stan Barnes MD [address] [place] [address] Assigned Surgical Provider 02/01/20 07/19/20 [place] [address] [place] [address] Assigned PCP 01/04/21 Stan Barnes MD [address] [place] [address] Assigned Surgical Provider 08/30/21 08/31/23 [place] Qureshi MD [facility] [address] [place] [address] Orthopaedic Surgery 09/16/21 Sammy Villa MD [address] [place] [address] 96 [place] [address] Assigned Neuroscience Provider 10/01/24 documented as of this encounter
--- OUTSIDE RECORDS SUMMARY | 2024-10-20 02:40 | XMS_ITS | Encounter Summary ---
Author Organization [facility] Address [address] [place] [address]. [place] [address] Care Team Providers Care Rotary Surface Grinder Name Role Phone Herb Herman MD Primary Care Provider Herb Herman MD Unavailable Stan Barnes MD Unavailable [phone] Trent Qureshi MD Unavailable [phone] Sammy Villa MD Unavailable [phone] Reason for Visit * Reason Onset Date Comments Medication Request 07/13/2021 Encounter Details Date Type Department Care Team (Late st Contact Info) Description 07/13/2021 MyC Medical Advice [facility] [address] [place] [address] [place]b Herman [place] [address] [place] [address] Medication Request Social History Tobacco Use [...] often do you attend chur ch or denominational services? More than 4 times per year 06/08/2021 Do you belong to any clubs o r organizations such as rastafarian groups, unions, fraternal or athletic groups, or [...] AM CDT Legal Sex Female 3:11 AM TENTERING MACHINE FEEDER Gender Identity Female 01/16/2019 8:38 AM CDT Sexual Orientation Choose not to disclose 2021 11:32 AM TENTERING MACHINE FEEDER Occupation Industry Job Start Date Job [...] Office Visit [facility] [address] [place] [address] [place] [address] [place] [address] documented as of this encounter Visit Diagnoses Diagnosis Other chronic pain- Primary documented in this encounter Additional Health Concerns Assessment Noted Time PHQ-9 Depression Total Score: 0 06/10/19 22 7:01 AM TENTERING MACHINE FEEDER documented as of this encounter Care Teams Rotary Surface Grinder Relationship Specialty [place] [address] [place] [address] PCP - General Family Medicine 12/24/20 [place] [address] [place] [address] Assigned PCP 01/04/21 Stan Barnes MD [address] [place] [address] Assigned Surgical Provider 08/30/21 08/31/23 Trent Qureshi MD [facility] [address] [place] [address] Orthopaedic Surgery 09/16/21 Sammy Villa MD [address] [place] [address] Assigned Neuroscience Provider 10/01/24 documented as of this encounter
--- OUTSIDE RECORDS SUMMARY | 2024-10-20 02:40 | XMS_ITS | Encounter Summary ---
Author Organization [place] Address [address] [place] [address] Care Team Providers Care Apparel Designer Name Role Phone Herb Herman MD Primary Care Provider Herb Heramn MD Unavailable Trent Qureshi MD Unavailable [phone] Sammy Villa MD Unavailable [phone] Encounter Details Date Type Department Care Team (Late st Contact Info) Description 02/21/2024 [facility] Adv[facility] [address] [address] Rama Roche MA Social History [...] How often do you attend chur or congregational services? 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 file documented as of this encounter Plan of Treatment Upcoming Encounters Date Type Department Care Team (Late st Contact Info) Description 11/14/2024 10:30 AM CDT Office Visit [address] [phone] Herb Herman [place] [address] [place] [address] documented as of this encounter Visit Diagnoses Not on filedocumented in this encounter Additional Health Concerns Assessment Noted Time PHQ-9 Depression Total Score: 0 05/02/19 24 10:52 AM QUOTE CLERK documented as of this encounter Care Teams Apparel Designer Relationship Specialty [place] [address] [place] [address] PCP - General Family Medicine 12/24/20 [place] [address] [place] [address] Assigned PCP 01/04/21 Trent Qureshi MD [facility] [place] [facility] [address] [place] [address] Orthopaedic Surgery 09/16/21 Sammy Villa MD [address] [place] [address] 779105 Assigned Neuroscience Provider 10/01/24 documented as of this encounter
--- OUTSIDE RECORDS SUMMARY | 2024-10-20 02:40 | XMS_ITS | Encounter Summary ---
Author Organization [place] Address [address] [place] [address]. [place] [address] Care Team Providers Care Tamping Machine Operator Road Forms Name Role Phone Herb Herman MD Primary Care Provider [phone] Herb Herman MD Unavailable Stan Barnes MD Unavailable [phone] Trent Qureshi MD Unavailable [phone] Sammy Villa MD Unavailable Encounter Details Date Type Department Care Team (Late st Contact Info) Description 07/16/2021 MyC Medical Advice [facility] [address] [place] [address] [place] [address] [place] [address] Social History Tobacco Use Types [...] often do you attend chur ch or sabianism services? More than 4 times [...] Answer Date Recorded PHQ-2 Score 0 06/24/2021 [facility] of Occupat ional Health - Occupational [...] CDT Legal Sex Female 3:11 AM BUSINESS CONTINUITY COORDINATOR Gender Identity Female 01/16/2019 8:38 AM CDT Sexual Orientation Choose not to disclose 2021 11:32 AM BUSINESS CONTINUITY COORDINATOR Occupation Industry Job Start Date Job [...] Description 11/14/2024 10:30 AM CDT Office Visit [address] [address] Herb Herman [place] [address] [place] [address] documented as of this encounter Visit Diagnoses Not on filedocumented in this encounter Additional Health Concerns Assessment Noted Time PHQ-9 Depression Total Score: 0 06/10/19 22 7:01 AM BUSINESS CONTINUITY COORDINATOR documented as of this encounter Care Teams Tamping Machine Operator Road Forms Relationship Specialty [place] [address] [place] [address] PCP - General Family Medicine 12/24/20 [place] [address] [place] [address] Assigned PCP 01/04/21 Stan Barnes MD [address] [place] [address] Assigned Surgical Provider 08/30/21 08/31/23 Trent Qureshi MD [facility] [address] [place] [address] Orthopaedic Surgery 09/16/21 Sammy Villa MD [address] [facility] 96 [place] [address] Assigned Neuroscience Provider 10/01/24 documented as of this encounter
--- OUTSIDE RECORDS SUMMARY | 2024-10-20 02:40 | XMS_ITS | Referral Summary ---
Author Organization [facility] Address [address] [place] [address] Care Team Providers Care Accounting Assistant Name Role Phone Herb Herman MD Primary Care Provider [phone] Encounters Date Type Department Care Team Description 10/18/2024 2:00 PM CDT Office Visit [facility] [address] [place] [address] Felisha Perez APRN, NIKKIE Speech disturbance, unspecified type (Primary Dx); Abnormality of gait and mobility; History of multiple strokes; Right hand weakness; Right hand paresthesia; Essential hypertension from Last 3 Months Allergies Active Allergy Reactions Criticality Noted Date [...] (10/18/2024): Seen incidentally on CT done at [facility] Major depression 12/22/2015 Spinal stenosis of lumbar re gion with neurogenic claudication 03/20/2015 Overview (10/18/2024): MRI 10/2014 showed central stenosis from T12-L3, severe at L2-3 Failed gabapentin, lyrica too costly. 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
--- OUTSIDE RECORDS SUMMARY | 2024-10-20 02:40 | XMS_ITS | Encounter Summary ---
Author Organization [place] Address [address] [place] [address] Care Team Providers Care Tax Consultant Name Role Phone Herb Herman MD Primary Care Provider Herb Herman MD Unavailable Stan Barnes MD Unavailable + [phone] Trent Qureshi MD Unavailable [phone] Sammy Villa MD Unavailable [phone] Encounter Details Date Type Department Care Team (Late st Contact Info) Description 07/23/2021 MyC Medical Advice [address] [address] Brooke Barnes Social History Tobacco [...] How often do you attend chur or jainism services? More than 4 times [...] Answer Date Recorded PHQ-2 Score 0 06/24/2021 [facility] Occupat ional [facility] - Occupational Stress Questionnaire Answer Date [...] AM CDT Legal Sex Female 3:11 AM CORPORATE COUNSELOR Gender Identity Female 01/16/2019 8:38 AM CDT Sexual Orientation Choose not to disclose 2021 11:32 AM CORPORATE COUNSELOR Occupation Industry Job Start Date Job End [...] Description 11/14/2024 10:30 AM CDT Office Visit [facility] [address] [place] [phone] [place] [address] [place] [address] documented as of this encounter Visit Diagnoses Not on filedocumented in this encounter Additional Health Concerns Assessment Noted Time PHQ-9 Depression Total Score: 0 06/10/19 22 7:01 AM CORPORATE COUNSELOR documented as of this encounter Care Teams Tax Consultant Relationship Specialty [place] [address] [place] [address] PCP - General Family Medicine 12/24/20 [place] [address] [place] [address] Assigned PCP 01/04/21 Stan Barnes MD 909 [place], [place] 434945 Assigned Surgical Provider 08/30/21 08/31/23 Trent Qureshi MD [facility] [address] [place] [address] 052735 Orthopaedic Surgery 09/16/21 Sammy Villa MD 420 [facility] 96 [place], [place] 252715 Assigned Neuroscience Provider 10/01/24 documented as of this encounter
--- OUTSIDE RECORDS SUMMARY | 2024-10-20 02:40 | XMS_ITS | Encounter Summary ---
Author Organization [place] Address [address] [place] [address] Care Team Providers Care Retail Sales Manager Name Role Phone Herb Herman MD Primary Care Provider [phone] Herb Herman MD Unavailable Trent Qureshi MD Unavailable [phone] Encounter Details Date Type Department Care Team (Late st Contact Info) Description 09/10/2024 Medical Correspondence [facility] Health Information Management [address] [facility] [address] [place] [address] Scan, Non-Provider Social History Tobacco Use Types [...] often do you attend chur ch or muslim services? More than 4 times [...] Date Recorded PHQ-2 Score 0 05/02/2024 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 [address] [place] [phone] [place] [address] [place] [address] documented as of this encounter Visit Diagnoses Not on filedocumented in this encounter Additional Health Concerns Assessment Noted Time PHQ-9 Depression Total Score: 0 05/02/19 25 10:13 AM BILLET ASSEMBLER documented as of this encounter Care Teams Retail Sales Manager Relationship Specialty [place] [address] [place] [address] PCP - General Family Medicine 12/24/20 [place] [address] [place] [address] Assigned PCP 01/04/21 Trent Qureshi MD [facility] [address] [place] [address] Orthopaedic Surgery 09/16/21 documented as of this encounter
--- OUTSIDE RECORDS SUMMARY | 2024-10-20 02:40 | XMS_ITS | Encounter Summary ---
Author Organization [place] Address [address] [place] [address] Care Team Providers Care High School Music Instructor Name Role Phone Herb Herman MD Primary Care Provider [phone] Herb Herman MD Unavailable Stan Barnes MD Unavailable + [phone] Trent Qureshi MD Unavailable [phone] Sammy Villa MD Unavailable [phone] Encounter Details Date Type Department Care Team (Late st Contact Info) Description 04/18/2023 MyC Medical Advice [address] [address] Brooke Barnes Social History Tobacco [...] week 06/08/2021 How often do you attend [facility] or jain services? More than 4 times [...] Answer Date Recorded PHQ-2 Score 0 08/02/2022 [facility] of Occupat ional Health [...] in a long-term (including now)? 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 file documented as of this encounter Plan of Treatment Upcoming Encounters Date Type Department Care Team (Late st Contact Info) Description 11/14/2024 10:30 AM CDT Office Visit [address] [address] [place] [address] [place] [address] documented as of this encounter Visit Diagnoses Not on filedocumented in this encounter Additional Health Concerns Assessment Noted Time PHQ-9 Depression Total Score: 1 08/03/19 23 1:10 PM CDT documented as of this encounter Care Teams High School Music Instructor Relationship Specialty [place] [address] [place] [address] PCP - General Family Medicine 12/24/20 [place] [address] [place] [address] Assigned PCP 01/04/21 Stan Barnes MD [address] [place] [address] Assigned Surgical Provider 08/30/21 08/31/23 Trent Qureshi MD [facility] [address] [address] Orthopaedic Surgery 09/16/21 Sammy Villa MD [address] [place] [address] 96 [place] [address] Assigned Neuroscience Provider 10/01/24 documented as of this encounter
--- OUTSIDE RECORDS SUMMARY | 2024-10-20 02:40 | XMS_ITS | Encounter Summary ---
Author Organization [place] Address [address] [place] [address] Care Team Providers Care Machine Shop Specialist Name Role Phone Daniel Plaza MD Primary Care Provider Daniel Plaza MD Unavailable [phone] Stan Barnes MD Unavailable [phone] Herb Herman MD Primary Care Provider Herb Herman MD Unavailable Stan Barnes MD Unavailable [phone] Trent Qureshi MD Unavailable [phone] Sammy Villa MD Unavailable Encounter Details Date Type Department Care Team (Late st Contact Info) Description 12/21/2018 [facility] [address] [place] [address] [address] [place] [address] Stan Barnes MD [address] [place] [address] Social History Tobacco Use Types Packs/Day Years Used Date Smoking Tobacco: Never Smokeless Tobacco: Never Alcohol Use Standard Drinks/Week Comments No 0 (1 standard drink = 0.6 oz pur e alcohol) PHQ-2 Answer Date Recorded PHQ-2 Score 0 04/18/2018 Comments No Sex and Gender Information Value Date Recorded Sex Assigned at Female 01/16/2019 8:38 AM CDT Legal Sex Female 3:11 AM CHILD NUTRITION DIRECTOR Gender Identity Female 01/16/2019 8:38 AM CDT Sexual Orientation Choose not to disclose 2021 11:32 AM CHILD NUTRITION DIRECTOR documented as of this encounter Plan of Treatment Upcoming Encounters Date Type Department Care Team (Late st Contact Info) Description 11/14/2024 10:30 AM CDT Office Visit [facility] [address] [place] [address] [place] [address] [place] [address] documented as of this encounter Visit Diagnoses Not on filedocumented in this encounter Additional Health Concerns Assessment Noted Time PHQ-9 Depression Total Score: 0 11/24/19 19 11:34 AM CDT documented as of this encounter Care Teams Machine Shop Specialist Relationship Specialty Start Date End Date Daniel Plaza MD [address] [place] [phone] PCP - General 06/29/10 12/23/20 [place] [address] [place] [address] PCP - General Family Medicine 12/24/20 Daniel Plaza MD [address] [place] [phone] Assigned PCP 01/13/12 01/03/21 Stan Barnes MD 9 [place] [address] Assigned Surgical Provider 02/01/20 07/19/20 [place] [address] [place] [address] Assigned PCP 01/04/21 Stan Barnes MD [address] [place] [address] 695085 Assigned Surgical Provider 08/30/21 08/31/23 Trent Qureshi MD [facility] [address] [place] [address] 810805 Orthopaedic Surgery 09/16/21 Sammy Villa MD 420 [facility] 96 [place], [place] 311875 Assigned Neuroscience Provider 10/01/24 documented as of this encounter
[2024-10-20 02:41] VITALS: BP 119/54; PULSE 81; RESP 18; TEMP 36.7; O2SAT 99; BMI 36.9
--- OUTSIDE RECORDS SUMMARY | 2024-10-20 02:41 | XMS_ITS | Encounter Summary ---
Author Organization [place] Address [address] [place] [address] Care Team Providers Care Bindery Operator Name Role Phone Herb Herman MD Primary Care Provider Herb Herman MD Unavailable Stan Barnes MD Unavailable [phone] Trent Qureshi MD Unavailable [phone] Sammy Villa MD Unavailable [phone] Reason for Visit * Reason Comments Medication Refill Encounter Details Date Type Department Care Team (Late st Contact Info) Description 01/28/[address] [phone] Daniel Plaza MD [address] [place] [phone] Medication Refill Social History Tobacco Use Types Packs/Day Years Used Date Smoking Tobacco: Never Smokeless Tobacco: Never Alcohol Use Standard Drinks/Week Comments No 0 (1 standard drink = 0.6 oz pur e alcohol) PHQ-2 Answer Date Recorded PHQ-2 Score 0 12/24/2020 Comments No Sex and Gender Information Value Date Recorded Sex Assigned at Female 01/16/2019 8:38 AM CDT Legal Sex Female 3:11 AM CASTING AND LOCKER ROOM SERVICER Gender Identity Female 01/16/2019 8:38 AM CDT Sexual Orientation Choose not to disclose 2021 11:32 AM CASTING AND LOCKER ROOM SERVICER documented as of this encounter Miscellaneous Notes [...] Description 11/14/2024 10:30 AM CDT Office Visit [facility] [address] [place] [phone] [place] Herman [place] [address] [place] [address] documented as of this encounter Visit Diagnoses Diagnosis Edema, unspecified type Essential hypertension Unspecified essential hypertension Type 2 diabetes mellitus without complication, without long-term current use of insulin (H) documented in this encounter Additional Health Concerns Assessment Noted Time PHQ-9 Depression Total Score: 0 12/26/19 21 7:02 AM CDT documented as of this encounter Care Teams Bindery Operator Relationship Specialty [place] [address] [place] [address] PCP - General Family Medicine 12/24/20 [place] [address] [place] [address] Assigned PCP 01/04/21 Stan Barnes MD [address] [place] [address] Assigned Surgical Provider 08/30/21 08/31/23 Trent Qureshi MD [facility] [address] [place] [address] Orthopaedic Surgery 09/16/21 Sammy Villa MD [address] [place] [address] 96 [place] [address] Assigned Neuroscience Provider 10/01/24 documented as of this encounter
--- OUTSIDE RECORDS SUMMARY | 2024-10-20 02:41 | XMS_ITS | Encounter Summary ---
Author Organization [place] Address [address] [place] [address]. [place] [address] Care Team Providers Care Transportation Solutions Manager Name Role Phone Herb Herman MD Primary Care Provider [phone] Herb Herman MD Unavailable Stan Barnes MD Unavailable [phone] Trent Qureshi MD Unavailable [phone] Sammy Villa MD Unavailable [phone] Encounter Details Date Type Department Care Team (Late st Contact Info) Description 09/23/2021 [facility] [address] 4[address] [place] [address] Son [place] Social History Tobacco Use Types Packs/Day Years [...] week 06/08/2021 How often do you attend [facility] or taoism services? More than 4 times [...] Answer Date Recorded PHQ-2 Score 0 09/15/2021 [facility] of Occupat ional [facility] - Occupational Stress Questionnaire Answer [...] AM CDT Legal Sex Female 3:11 AM HEAVY TRUCK DRIVER Gender Identity Female 01/16/2019 8:38 AM CDT Sexual Orientation Choose not to disclose 2021 11:32 AM HEAVY TRUCK DRIVER Occupation Industry Job Start Date [...] 10:30 AM CDT Office Visit [facility] [address] [place] [phone] [place] [address] [place] [address] documented as of this encounter Visit Diagnoses Not on filedocumented in this encounter Additional Health Concerns Assessment Noted Time PHQ-9 Depression Total Score: 1 08/23/19 22 7:03 AM CDT documented as of this encounter Care Teams Transportation Solutions Manager Relationship Specialty [place] [address] [place] [address] PCP - General Family Medicine 12/24/20 [place] [address] [place] [address] Assigned PCP 01/04/21 Stan Barnes MD [address] [place] [address] 943075 Assigned Surgical Provider 08/30/21 08/31/23 Trent Qureshi MD [facility] [address] [place] [address] 546945 Orthopaedic Surgery 09/16/21 Sammy Villa MD 420 [facility] 96 [place] [address] Assigned Neuroscience Provider 10/01/24 documented as of this encounter
--- OUTSIDE RECORDS SUMMARY | 2024-10-20 02:41 | XMS_ITS | Encounter Summary ---
Author Organization [place] Address [address] [place] [address] Care Team Providers Care Library Clerk Talking Books Name Role Phone Daniel Plaza MD Primary Care Provider Daniel Plaza MD Unavailable [phone] Daniel Plaza MD Unavailable Stan Barnes MD Unavailable [phone] Herb Herman MD Primary Care Provider [phone] Herb Herman MD Unavailable Stan Barnes MD Unavailable [phone] Trent Qureshi MD Unavailable [phone] Sammy Villa MD Unavailable Encounter Details Date Type Department Care Team (Late st Contact Info) Description 10/30/2014 MyC Medical Advice [facility] [address] [address] Daniel Plaza MD [address] [phone] Social History Tobacco Use Types Packs/Day Years Used Date Smoking Tobacco: Never Smokeless Tobacco: Never Alcohol Use Standard Drinks/Week Comments No 0 (1 standard drink = 0.6 oz pur e alcohol) Comments No Sex and Gender Information Value Date Recorded Sex Assigned at Female 01/16/2019 8:38 AM CDT Legal Sex Female 3:11 AM OVEREDGE MACHINE OPERATOR Gender Identity Female 01/16/2019 8:38 AM CDT Sexual Orientation Choose not to disclose 2021 11:32 AM OVEREDGE MACHINE OPERATOR documented as of this encounter Miscellaneous [...] Description 11/14/2024 10:30 AM CDT Office Visit [facility] [address] [place] [phone] [place] [address] [place] [address] documented as of this encounter Visit Diagnoses Not on filedocumented in this encounter Care Teams Library Clerk Talking Books Relationship Specialty Start Date End Date Daniel Plaaz MD [address] [place] [phone] PCP - General 06/29/10 12/23/20 Daniel Plaza MD [address] [place] [phone] PCP - Assigned PCP 02/05/08 06/13/18 [place] [address] [place] [address] PCP - General Family Medicine 12/24/20 Daniel Plaza MD [address] [place] [phone] Assigned PCP 01/13/12 01/03/21 Stan Barnes MD [address] [place] [address] Assigned Surgical Provider 02/01/20 07/19/20 [place] [address] [place] [address] Assigned PCP 01/04/21 Stan Barnes MD [address] [place] [address] Assigned Surgical Provider 08/30/21 08/31/23 Trent Qureshi MD [facility] [address] [place] [address] Orthopaedic Surgery 09/16/21 Sammy Villa MD [address] [place] [address] Assigned Neuroscience Provider 10/01/24 documented as of this encounter
--- OUTSIDE RECORDS SUMMARY | 2024-10-20 02:41 | XMS_ITS | Encounter Summary ---
Author Organization [place] Address [facility] [place] [address] Care Team Providers Care Emergency Room Physician Name Role Phone Herb Herman MD Primary Care Provider Herb Herman MD Unavailable Stan Barnes MD Unavailable [phone] Trent Qureshi MD Unavailable [phone] Sammy Villa MD Unavailable [phone] Encounter Details Date Type Department Care Team (Late st Contact Info) Description 06/22/2022 MyC Medical Advice [facility] [address] [place] [phone] [place] [address] [place] [address] Social History Tobacco Use [...] often do you attend chur ch or baptism services? 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 file documented as of this encounter Plan of Treatment Upcoming Encounters Date Type Department Care Team (Late st Contact Info) Description 11/14/2024 10:30 AM CDT Office Visit [facility] [address] [place] [phone] [place]b [place] [address] [place] [address] documented as of this encounter Visit Diagnoses Not on filedocumented in this encounter Additional Health Concerns Assessment Noted Time PHQ-9 Depression Total Score: 0 03/08/20 22 10:26 AM POLARITY TESTER documented as of this encounter Care Teams Emergency Room Physician Relationship Specialty [place] [address] [place] [address] PCP - General Family Medicine 12/24/20 [place] [address] [place] [address] Assigned PCP 01/04/21 Stan Barnes MD [address] [place] [address] Assigned Surgical Provider 08/30/21 08/31/23 Trent Qureshi MD [facility] [address] 119915 Orthopaedic Surgery 09/16/21 Sammy Villa MD 420 [facility] 96 [place], [place] [address]275 Assigned Neuroscience Provider 10/01/24 documented as of this encounter
--- OUTSIDE RECORDS SUMMARY | 2024-10-20 02:41 | XMS_ITS | Encounter Summary ---
Author Organization [place] Address [address] [place] [address] Care Team Providers Care Health Insurance Agent Name Role Phone Daniel Plaza MD Primary Care Provider Daniel Plaza MD Unavailable Daniel Plaza MD Unavailable Stan Barnes MD Unavailable [phone] Herb Herman MD Primary Care Provider Herb Herman MD Unavailable Stan Barnes MD Unavailable [phone] Trent Qureshi MD Unavailable [phone] Sammy Villa MD Unavailable Encounter Details Date Type Department Care Team (Late st Contact Info) Description 10/30/2014 MyC Medical Advice [facility] [address] [address] Daniel Plaza MD [address] [phone] Social History Tobacco Use Types Packs/Day Years Used Date Smoking Tobacco: Never Smokeless Tobacco: Never Alcohol Use Standard Drinks/Week Comments No 0 (1 standard drink = 0.6 oz pur e alcohol) Comments No Sex and Gender Information Value Date Recorded Sex Assigned at Female 01/16/2019 8:38 AM CDT Legal Sex Female 3:11 AM BARREL PLANER Gender Identity Female 01/16/2019 8:38 AM CDT Sexual Orientation Choose not to disclose 2021 11:32 AM BARREL PLANER documented as of this encounter Plan of Treatment Upcoming Encounters Date Type Department Care Team (Late st Contact Info) Description 11/14/2024 10:30 AM CDT Office Visit [facility] [address] [place] [phone] [place] Herman [place] [address] [place] [address] documented as of this encounter Visit Diagnoses Not on filedocumented in this encounter Care Teams Health Insurance Agent Relationship Specialty Start Date End Date Daniel Plaza MD [address] [place] [phone] PCP - General 06/29/10 12/23/20 Daniel Plaza MD [address] [place] [phone] PCP - Assigned PCP 02/05/08 06/13/18 [place] [address] [place] [address] PCP - General Family Medicine 12/24/20 Daniel Plaza MD [address] [place] [phone] Assigned PCP 01/13/12 01/03/21 Stan Barnes MD [address] [place] [address] Assigned Surgical Provider 02/01/20 07/19/20 [place] [address] [place] [address] Assigned PCP 01/04/21 Stan Barnes MD [address] [place] [address] Assigned Surgical Provider 08/30/21 08/31/23 Trent Qureshi MD [facility] [address] [place] [address] Orthopaedic Surgery 09/16/21 Sammy Villa MD [address] [place] [address] 96 [place] [address] Assigned Neuroscience Provider 10/01/24 documented as of this encounter
--- OUTSIDE RECORDS SUMMARY | 2024-10-20 02:41 | XMS_ITS | Encounter Summary ---
Author Organization [place] Address [address] [place] [address] Care Team Providers Care Unit Reactor Operator Name Role Phone Daniel Plaza MD Primary Care Provider Daniel Plaza MD Unavailable [phone] Daniel Plaza MD Unavailable [phone] Stan Barnes MD Unavailable [phone] Herb Herman MD Primary Care Provider Herb Herman MD Unavailable Stan Barnes MD Unavailable [phone] Trent Qureshi MD Unavailable [phone] Sammy Villa MD Unavailable [phone] Reason for Visit * Reason Onset Date Comments Medication Request 04/22/2015 Encounter Details Date Type Department Care Team (Late st Contact Info) Description 04/22/2015 [facility] [place] [facility] [address] [address] Daniel Plaza MD [address] [address] Medication Request Social History Tobacco Use Types Packs/Day Years Used Date Smoking Tobacco: Never Smokeless Tobacco: Never Alcohol Use Standard Drinks/Week Comments No 0 (1 standard drink = 0.6 oz pur e alcohol) Comments No Sex and Gender Information Value Date Recorded Sex Assigned at Female 01/16/2019 8:38 AM CDT Legal Sex Female 3:11 AM KELP GATHERER Gender Identity Female 01/16/2019 8:38 AM CDT Sexual Orientation Choose not to disclose 2021 11:32 AM KELP GATHERER documented as of this encounter Plan of Treatment Upcoming Encounters Date Type Department Care Team (Late st Contact Info) Description 11/14/2024 10:30 AM CDT Office Visit [facility] [address] [place] [address] [place] [address] [place] [address] documented as of this encounter Visit Diagnoses Diagnosis Edema, unspecified edema- Primary documented in this encounter Care Teams Unit Reactor Operator Relationship Specialty Start Date End Date Daniel Plaza MD [address] [place] [phone] PCP - General 06/29/10 12/23/20 Daniel Plaza MD [address] [place] [phone] PCP - Assigned PCP 02/05/08 06/13/18 [place] [address] [place] [address] PCP - General Family Medicine 12/24/20 Daniel Plaza MD [address] [place] [phone] Assigned PCP 01/13/12 01/03/21 Stan Barnes MD [address] [place] [address] Assigned Surgical Provider 02/01/20 07/19/20 [place] [address] [place] [address] Assigned PCP 01/04/21 Stan Barnes MD [address] [place] [address] Assigned Surgical Provider 08/30/21 08/31/23 Trent Qureshi MD [facility] [address] [place] [address] Orthopaedic Surgery 09/16/21 Sammy Villa MD [address] [place] [address] Assigned Neuroscience Provider 10/01/24 documented as of this encounter
--- OUTSIDE RECORDS SUMMARY | 2024-10-20 02:41 | XMS_ITS | Encounter Summary ---
Author Organization [place] Address [address] [place] [address]. [place] [address] Care Team Providers Care Banjo Repair Person Name Role Phone Herb Herman MD Primary Care Provider Herb Herman MD Unavailable Trent Qureshi MD Unavailable [phone] Sammy Villa MD Unavailable Encounter Details Date Type Department Care Team (Late st Contact Info) Description 03/31/2024 My[facility] Medical Advice [facility] [address] [place] [address] [place] [address] [place] [address] Social History Tobacco Use Types [...] 06/08/2021 How often do you attend [facility] or yazdanism services? More than 4 times per year 06/08/2021 Do you belong to any clubs o r organizations such as confucianist groups, unions, fraternal or athletic groups, or [...] Date Recorded PHQ-2 Score 0 05/02/2023 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 file documented as of this encounter Plan of Treatment Upcoming Encounters Date Type Department Care Team (Late st Contact Info) Description 11/14/2024 10:30 AM CDT Office Visit [address] [address] [place] [address] [place], [place] [id number] documented as of this encounter Visit Diagnoses Not on filedocumented in this encounter Additional Health Concerns Assessment Noted Time PHQ-9 Depression Total Score: 0 05/02/19 24 10:52 AM STOCKLAYER documented as of this encounter Care Teams Banjo Repair Person Relationship Specialty [place] [address] [place] [address] PCP - General Family Medicine 12/24/20 [place] [address] [place] [address] Assigned PCP 01/04/21 Trent Qureshi MD [facility] [address] [place] [address] [id number] Orthopaedic Surgery 09/16/21 Sammy Villa MD [address] [place] [address] 646995 Assigned Neuroscience Provider 10/01/24 documented as of this encounter
--- OUTSIDE RECORDS SUMMARY | 2024-10-20 02:41 | XMS_ITS | Encounter Summary ---
Author Organization [place] Address [address] [place] [address] Care Team Providers Care Shirt Presser Name Role Phone Daniel Plaza MD Primary Care Provider [phone] Daniel Plaza MD Unavailable Daniel Plaza MD Unavailable [phone] Stan Barnes MD Unavailable [phone] Herb Herman MD Primary Care Provider Herb Herman MD Unavailable Stan Barnes MD Unavailable [phone] Trent Qureshi MD Unavailable [phone] Sammy Villa MD Unavailable Encounter Details Date Type Department Care Team (Late st Contact Info) Description 07/25/2012 My[facility] Medical Advice [facility] [address] [address] Daniel Plaza MD [address] [phone] Social History Tobacco Use Types Packs/Day Years Used Date Smoking Tobacco: Never Smokeless Tobacco: Never Alcohol Use Standard Drinks/Week Comments No 0 (1 standard drink = 0.6 oz pur e alcohol) Comments No Sex and Gender Information Value Date Recorded Sex Assigned at Female 01/16/2019 8:38 AM CDT Legal Sex Female 3:11 AM SHIPPING SPECIALIST Gender Identity Female 01/16/2019 8:38 AM CDT Sexual Orientation Choose not to disclose 2021 11:32 AM SHIPPING SPECIALIST documented as of this encounter Plan of Treatment Upcoming Encounters Date Type Department Care Team (Late st Contact Info) Description 11/14/2024 10:30 AM CDT Office Visit [facility] [address] [place] [phone] [place] [id number] [place] [address] documented as of this encounter Visit Diagnoses Not on filedocumented in this encounter Care Teams Shirt Presser Relationship Specialty Start Date End Date Daniel Plaza MD [address] [place] [phone] PCP - General 06/29/10 12/23/20 Daniel Plaza MD [address] [place] [address] PCP - Assigned PCP 02/05/08 06/13/18 [place] [address] [place] [address] PCP - General Family Medicine 12/24/20 Daniel Plaza MD [address] [place] [phone] Assigned PCP 01/13/12 01/03/21 Stan Barnes MD [address] [place] [address] Assigned Surgical Provider 02/01/20 07/19/20 [place] [address] [place] [address] Assigned PCP 01/04/21 Stan Barnes MD [address] [place] [address] Assigned Surgical Provider 08/30/21 08/31/23 Trent Qureshi MD [facility] [address] [place] [address] Orthopaedic Surgery 09/16/21 Sammy Villa MD [address] [place] [address] 96 [place] [address] Assigned Neuroscience Provider 10/01/24 documented as of this encounter
--- OUTSIDE RECORDS SUMMARY | 2024-10-20 02:41 | XMS_ITS | Encounter Summary ---
Author Organization [place] Address [address] [place] [address] Care Team Providers Care Guest Service Manager Name Role Phone Daniel Plaza MD Primary Care Provider Daniel Plaza MD Unavailable [phone] Daniel Plaza MD Unavailable Stan Barnes MD Unavailable [phone] Herb Herman MD Primary Care Provider Herb Herman MD Unavailable Stan Barnes MD Unavailable [phone] Trent Qureshi MD Unavailable [phone] Sammy Villa MD Unavailable Encounter Details Date Type Department Care Team (Late st Contact Info) Description 01/09/2014 [facility] [place] [facility] [address] [address] Daniel Plaza MD [address] [phone] Social History Tobacco Use Types Packs/Day Years Used Date Smoking Tobacco: Never Smokeless Tobacco: Never Alcohol Use Standard Drinks/Week Comments No 0 (1 standard drink = 0.6 oz pur e alcohol) Comments No Sex and Gender Information Value Date Recorded Sex Assigned at Female 01/16/2019 8:38 AM CDT Legal Sex Female 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 Gender Identity Female 01/16/2019 8:38 AM CDT Sexual Orientation Choose not to disclose 2021 11:32 AM BOX 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 documented as of this encounter Plan of Treatment Upcoming Encounters Date Type Department Care Team (Late st Contact Info) Description 11/14/2024 10:30 AM CDT Office Visit [facility] [address] [place] [phone] [place] [address] [place] [address] documented as of this encounter Visit Diagnoses Not on filedocumented in this encounter Care Teams Guest Service Manager Relationship Specialty Start Date End Date Daniel Plaza MD [address] [place] [phone] PCP - General 06/29/10 12/23/20 Daniel Plaza MD [address] [place] [phone] PCP - Assigned PCP 02/05/08 06/13/18 [place] [address] [place] [address] PCP - General Family Medicine 12/24/20 Daniel Plaza MD [address] [place] [phone] Assigned PCP 01/13/12 01/03/21 Stan Barnes MD [address] [place] [address] Assigned Surgical Provider 02/01/20 07/19/20 [place] [address] [place] [address] Assigned PCP 01/04/21 Stan Barnes MD [address] [place] [address] Assigned Surgical Provider 08/30/21 08/31/23 Trent Qureshi MD [facility] [address] [place] [address] Orthopaedic Surgery 09/16/21 Sammy Villa MD [address] [place] [address] 96 [place] [address] Assigned Neuroscience Provider 10/01/24 documented as of this encounter
--- OUTSIDE RECORDS SUMMARY | 2024-10-20 02:41 | XMS_ITS | Encounter Summary ---
Author Organization [place] Address [address] [place] [address] Care Team Providers Care Coal Trimmer Machine Operator Name Role Phone Daniel Plaza MD Primary Care Provider [phone] Daniel Plaza MD Unavailable [phone] Herb Herman MD Primary Care Provider Herb Herman MD Unavailable Stan Barnes MD Unavailable Trent Qureshi MD Unavailable [phone] Sammy Villa MD Unavailable [phone] Encounter Details Date Type Department Care Team (Late st Contact Info) Description 10/15/2020 My[facility] Medical Advice [address] [address] Yvonne Zavala Social History Tobacco [...] AM CDT Legal Sex Female 3:11 AM BIOINFORMATICS ASSISTANT Gender Identity Female 01/16/2019 8:38 AM CDT Sexual Orientation Choose not to disclose 2021 11:32 AM BIOINFORMATICS ASSISTANT documented as of this encounter Plan of Treatment Upcoming Encounters Date Type Department Care Team (Late st Contact Info) Description 11/14/2024 10:30 AM CDT Office Visit [facility] [address] [place] [address] [place] [address] [place] [address] documented as of this encounter Visit Diagnoses Not on filedocumented in this encounter Additional Health Concerns Assessment Noted Time PHQ-9 Depression Total Score: 1 06/26/19 11:29 AM CDT documented as of this encounter Care Teams Coal Trimmer Machine Operator Relationship Specialty Start Date End Date Daniel Plaza MD [address] [place] [phone] PCP - General 06/29/10 12/23/20 Herb Herman MD [address] [place] [address] PCP - General Family Medicine 12/24/20 Daniel Plaza MD [address] [place] [phone] Assigned PCP 01/13/12 01/03/21 [place] [address] [place] [address] Assigned PCP 01/04/21 Stan Barnes MD [address] [place] [address] Assigned Surgical Provider 08/30/21 08/31/23 Trent Qureshi MD [facility] [address] [place] [address] 818235 Orthopaedic Surgery 09/16/21 Sammy Villa MD [address] [place] [address] 96 [place], [place] [id number] Assigned Neuroscience Provider 10/01/24 documented as of this encounter
--- OUTSIDE RECORDS SUMMARY | 2024-10-20 02:41 | XMS_ITS | Encounter Summary ---
Author Organization [place] Address [address] [place] [address]. [place] [address] Care Team Providers Care Director Of Planning Name Role Phone Herb Herman MD Primary Care Provider Herb Herman MD Unavailable Trent Qureshi MD Unavailable [phone] Sammy Villa MD Unavailable Encounter Details Date Type Department Care Team (Late st Contact Info) Description 05/16/2024 MyC Medical Advice [facility] [phone] [place] [address] [place]b [place] [address] [place] [address] Social History Tobacco Use Types Packs/Day [...] you attend [facility] or pentecostal services? 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 file documented as of this encounter Plan of Treatment Upcoming Encounters Date Type Department Care Team (Late st Contact Info) Description 11/14/2024 10:30 AM CDT Office Visit [address] [address] [place] [address] [place], [place] 87120[address] documented as of this encounter Visit Diagnoses Not on filedocumented in this encounter Additional Health Concerns Assessment Noted Time PHQ-9 Depression Total Score: 0 05/02/19 25 10:13 AM CUSTOMS HOUSE BROKER documented as of this encounter Care Teams Director Of Planning Relationship Specialty [place] [address] [place] [address] PCP - General Family Medicine 12/24/20 [place] [address] [place] [address] Assigned PCP 01/04/21 Trent Qureshi MD [facility] [address] [place] [address] 047945 Orthopaedic Surgery 09/16/21 Sammy Villa MD [address] [place] [address] 604655 Assigned Neuroscience Provider 10/01/24 documented as of this encounter
--- OUTSIDE RECORDS SUMMARY | 2024-10-20 02:41 | XMS_ITS | Encounter Summary ---
Author Organization [place] Address [address] [place] [address] Care Team Providers Care Studio Operator Name Role Phone Daniel Plaza MD Primary Care Provider Daniel Plaza MD Unavailable [phone] Daniel Plaza MD Unavailable Stan Barnes MD Unavailable [phone] Herb Herman MD Primary Care Provider Herb Herman MD Unavailable Stan Barnes MD Unavailable [phone] Trent Qureshi MD Unavailable [phone] Sammy Villa MD Unavailable [phone] Reason for Visit * Reason Onset Date Comments Thyroid Disease 07/23/2014 Encounter Details Date Type Department Care Team (Late st Contact Info) Description 07/23/2014 [facility] [address] [address] Daniel Plaza MD [address] [phone] Thyroid Disease Social History Tobacco Use Types Packs/Day Years Used Date Smoking Tobacco: Never Smokeless Tobacco: Never Alcohol Use Standard Drinks/Week Comments No 0 (1 standard drink = 0.6 oz pur e alcohol) Comments No Sex and Gender Information Value Date Recorded Sex Assigned at Female 01/16/2019 8:38 AM CDT Legal Sex Female 3:11 AM POWDER LOADER Gender Identity Female 01/16/2019 8:38 AM CDT Sexual Orientation Choose not to disclose 2021 11:32 AM POWDER LOADER documented as of this encounter Plan of Treatment Upcoming Encounters Date Type Department Care Team (Late st Contact Info) Description 11/14/2024 10:30 AM CDT Office Visit [facility] [address] [place] [address] [place] [address] [place] [address] documented as of this encounter Visit Diagnoses Diagnosis MONTSERRAT'S THYROIDITIS- Primary Unspecified hypothyroidism documented in this encounter Care Teams Studio Operator Relationship Specialty Start Date End Date Daniel Plaza MD [address] [place] [phone] PCP - General 06/29/10 12/23/20 Daniel Plaza MD [address] [place] [address] PCP - Assigned PCP 02/05/08 06/13/18 [place] [address] [place] [address] PCP - General Family Medicine 12/24/20 Daniel Plaza MD [address] [place] [phone] Assigned PCP 01/13/12 01/03/21 Stan Barnes MD [address] [place] [address] Assigned Surgical Provider 02/01/20 07/19/20 [place] [address] [place] [address] Assigned PCP 01/04/21 Stan Barnes MD [address] [place] [address] Assigned Surgical Provider 08/30/21 08/31/23 Trent Qureshi MD [facility] [address] [place] [address] 613275 Orthopaedic Surgery 09/16/21 Sammy Villa MD [address] [place] [address] Assigned Neuroscience Provider 10/01/24 documented as of this encounter
--- OUTSIDE RECORDS SUMMARY | 2024-10-20 02:41 | XMS_ITS | Encounter Summary ---
Author Organization [place] Address [address] [place] [address] Care Team Providers Care Traveling Representative Name Role Phone Herb Herman MD Primary Care Provider Herb Herman MD Unavailable Stan Barnes MD Unavailable [phone] Trent Qureshi MD Unavailable [phone] Sammy Villa MD Unavailable [phone] Encounter Details Date Type Department Care Team (Late st Contact Info) Description 12/23/2021 MyC Medical Advice [facility] [address] [place] [phone] Brooke Barnes Social History Tobacco Use [...] How often do you attend chur or protestant services? More than 4 times per year [...] Answer Date Recorded PHQ-2 Score 0 11/24/2021 [facility] of Occupat ional [facility] - Occupational Stress Questionnaire Answer Date [...] CDT Legal Sex Female 3:11 AM SALES ENGAGEMENT MANAGER Gender Identity Female 01/16/2019 8:38 AM CDT Sexual Orientation Choose not to disclose 2021 11:32 AM SALES ENGAGEMENT MANAGER Occupation Industry Job Start Date Job [...] Description 11/14/2024 10:30 AM CDT Office Visit [facility] [address] [place] [phone] [place] [address] [place] [address] documented as of this encounter Visit Diagnoses Not on filedocumented in this encounter Additional Health Concerns Assessment Noted Time PHQ-9 Depression Total Score: 1 08/23/19 22 7:03 AM CDT documented as of this encounter Care Teams Traveling Representative Relationship Specialty [place] [address] [place] [address] PCP - General Family Medicine 12/24/20 [place] [address] [place] [address] Assigned PCP 01/04/21 Stan Barnes MD [address] [place] [address] [phone] Assigned Surgical Provider 08/30/21 08/31/23 Trent Qureshi MD [facility] [address] [place] [address] 799235 Orthopaedic Surgery 09/16/21 Sammy Villa MD [address] [place] [address] 96 [place] [address] Assigned Neuroscience Provider 10/01/24 documented as of this encounter
--- NOTE | 2024-10-20 02:47 | ED.GENADULT ---
HPI - General Adult General Chief complaint: Extremity Pain/Injury, Lower Stated complaint: r leg pain Time Seen by Provider: 10/20/24 02:46 History of Present Illness HPI narrative: Patient is a 79-year-old woman with a history of spinal stenosis who presents with right-sided lower extremity radiculopathy. This is acute on chronic situation. She has no bowel or bladder symptoms no fevers no chills. She has had no change in her sensorium although she recently had some TIAs and was recently started on aspirin plus Plavix. She has no recent injuries. She has mild diabetes but no symptoms of hyperglycemia. Symptoms have been present for last 2-3 nights but seems to be worse today and she is unable to get some rest. Related Data Home Medications ?Medication ?Instructions ?Recorded ?Confirmed amitriptyline 25 mg tablet 25 mg PO QPM 01/31/24 10/20/24 ergocalciferol (vitamin D2) 1,250 1,250 mcg PO .every week 01/31/24 10/20/24 mcg (50,000 unit) capsule levothyroxine 137 mcg tablet 137 mcg PO DAILY 01/31/24 10/20/24 metformin 1,000 mg tablet 1,000 mg PO BID 01/31/24 10/20/24 naproxen 500 mg tablet 500 mg PO BID PRN moderate pain 01/31/24 10/20/24 omeprazole 20 mg capsule,delayed 20 mg PO QPM 01/31/24 10/20/24 release lisinopril 20 1 tab PO DAILY 10/20/24 10/20/24 mg-hydrochlorothiazide 25 mg tablet trazodone 50 mg tablet 50 mg PO QPM 10/20/24 10/20/24 Previous Rx's ?Medication ?Instructions ?Recorded aspirin 81 mg tablet 81 mg PO DAILY #90 tabs 10/03/24 clopidogrel 75 mg tablet 75 mg PO DAILY #30 tabs 10/04/24 ezetimibe 10 mg tablet (Zetia) 10 mg PO DAILY #30 tabs 10/04/24 Allergies Allergy/AdvReac Type Severity Reaction Status Date / Time atorvastatin Allergy Unknown Verified 10/20/24 02:45 niacin Allergy Unknown Verified 10/20/24 02:45 piroxicam Allergy Unknown Verified 10/20/24 02:45 pravastatin Allergy Unknown Verified 10/20/24 02:45 rosuvastatin Allergy Unknown Verified 10/20/24 02:45 simvastatin Allergy Unknown Verified 10/20/24 02:45 doxycycline Allergy Verified 10/20/24 02:45 erythromycin base Allergy Verified 10/20/24 02:45 morphine Allergy Verified 10/20/24 02:45 Review of Systems Status of ROS: Reports: 10 or more systems reviewed and unremarkable except as noted in History and below [facility] Medical History Hyperlipidemia ?E78.5 - Hyperlipidemia, unspecified (ICD-10) Major 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 (12/22/15) ?F32.5 - Major depressive disorder, single episode, in full remission (ICD-10) Poor balance (05/20/23) ?R26.89 - Other abnormalities of gait and mobility (ICD-10) Spinal stenosis of lumbar region with neurogenic claudication (03/20/15) ?M48.062 - Spinal stenosis, lumbar region with neurogenic claudication (ICD-10) Lumbar radiculopathy ?M54.16 - Radiculopathy, lumbar region (ICD-10) Lumbosacral radiculitis ?M54.17 - Radiculopathy, lumbosacral region (ICD-10) Lumbar spondylosis ?M47.816 - Spondylosis without myelopathy or radiculopathy, lumbar region (ICD-10) Obesity (BMI 30-39.9) ?E66.9 - Obesity, unspecified (ICD-10) Chronic kidney disease, stage 3a ?N18.31 - Chronic kidney disease, stage 3a (ICD-10) Insomnia ?G47.00 - Insomnia, unspecified (ICD-10) Acquired hypothyroidism ?E03.9 - Hypothyroidism, unspecified (ICD-10) 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 - Stenosis of larynx (ICD-10) Diabetes mellitus type 2, controlled ?E11.9 - Type 2 diabetes mellitus without complications (ICD-10) Vitamin D deficiency ?E55.9 - Vitamin D deficiency, unspecified (ICD-10) Essential hypertension ?I10 - Essential (primary) hypertension (ICD-10) Surgical History S/P total hip arthroplasty (09/21/21) ?Z96.649 - Presence of unspecified artificial hip joint (ICD-10) Social History What is your current living situation?: I presently have a place to live Problems where you live: no known problems Problems where you live details: NA In the past 12 months, utilities in danger of being shut off: no In past 12 months, lack of transportation kept you from medical appts, meetings, work, or getting things needed for daily living: no In the past 12 mos, have been you worried that your food would run out before you had money to buy more?: never true In the past 12 mos, the food you bought just didn't last and you didn't have money to buy more?: never true Highest level of school completed/degree received: Master's degree Smoking Status: Never smoker Do you use any of these nicotine containing products: None Second hand tobacco smoke exposure: No How often do you have a drink containing alcohol: never How often do you have six or more drinks on one occasion: Never AUDIT-C Alcohol total score: 0 Non-prescribed substance use: denies use Caffeine: Yes (Diet Pepsi, Daily) How often does anyone, including family, friends and others, physically hurt you: never How often does anyone, including family, friends and others, insult or talk down to you: never How often does anyone, including family, friends and others, threaten you with harm: never How often does anyone, including family, friends and others, scream or curse at you: never service: No Exam Narrative: Exam Narrative: EXAM GENERAL: Patient appears comfortable and well. EYES: No scleral icterus. LYMPH: No supraclavicular or cervical lymphadenopathy. SKIN: Visible skin seen during exam normal or with benign process only. EXT: No dependent lower extremity pedal edema. HEART: Regular rate and rhythm with no murmurs, rubs, or gallops. LUNGS: Clear to auscultation bilaterally with no crackles or wheezes. ABD: Soft, non tender, non distended. PSYCH: Good eye contact, speech is not pressured. Neurologic cranial nerves 2-12 grossly intact no focal defects. Const: Vital Signs, click to edit/add: Vital Signs - 24 hr 10/20/24 02:41 Temperature 98.0 F Pulse Rate [Right Pulse Oximeter] 81 Respiratory Rate 18 Blood Pressure [Ri ght Upper Arm] 119/54 L Pulse Oximetry 99 Oxygen Delivery Me thod Room Air Course Course ED Course: Patient seen and examined. A a do not believe we need imaging. I did treat her with Toradol 30 mg well as a 5 day course of prednisone and Vicodin 1-2 every 4-6 as needed. Will venous diet activity as tolerated follow-up with her primary physician as needed. Vital Signs Vital signs: Initial Vital Signs Temperature 98.0 F 10/20/24 02:41 Temperature Source Temporal Artery Scan 10/20/24 02:41 Pulse Rate 81 10/20/24 02:41 Respiratory Rate 18 10/20/24 02:41 Blood Pressure 119/54 L 10/20/24 02:41 Blood Pressure Mean 75 10/20/24 02:41 Blood Pressure Position Sitting 10/20/24 02:41 Pulse Oximetry 99 10/20/24 02:41 Oxygen Delivery Method Room Air 10/20/24 02:41 Vital Signs Temperature 98.0 F 10/20/24 02:41 Pulse Rate 81 10/20/24 02:41 Respiratory Rate 18 10/20/24 02:41 Blood Pressure 119/54 L 10/20/24 02:41 Pulse Oximetry 99 10/20/24 02:41 Oxygen Delivery Method Room Air 10/20/24 02:41 Temperature 98.0 F 10/20/24 02:41 Pulse Rate 81 10/20/24 02:41 Respiratory Rate 18 10/20/24 02:41 Blood Pressure 119/54 L 10/20/24 02:41 Pulse Oximetry 99 10/20/24 02:41 Oxygen Delivery Method Room Air 10/20/24 02:41 Discharge Plan Discharge Clinical Impression: Sciatica Patient Disposition: Home, Self-Care Condition: Stable Instructions: Sciatica (ED) Additional Instructions: [place] as directed Prednisone as directed Tylenol Ice Rest Follow-up by phone next week on as needed basis. Activity Level: No Restrictions Discharge Diet: Regular Prescriptions: No Action trazodone 50 mg tablet 50 mg PO QPM lisinopril-hydrochlorothiazide 20-25 mg tablet 1 tab PO DAILY levothyroxine 137 mcg tablet 137 mcg PO DAILY amitriptyline 25 mg tablet 25 mg PO QPM metformin 1,000 mg tablet 1,000 mg PO BID omeprazole 20 mg capsule,delayed release(DR/EC) 20 mg PO QPM ergocalciferol (vitamin D2) 1,250 mcg (50,000 unit) capsule 1,250 mcg PO .every week naproxen 500 mg tablet 500 mg PO BID PRN (Reason: moderate pain) aspirin 81 mg tablet 81 mg PO DAILY Qty: 90 0RF clopidogrel 75 mg tablet 75 mg PO DAILY Qty: 30 2RF ezetimibe [Zetia] 10 mg tablet 10 mg PO DAILY Qty: 30 0RF Follow Up/Referrals: Herb Herman MD [Primary Care Provider, Family Practice] Stand Alone Forms: [facility] Info Instructions
[2024-10-20 02:53] VITALS: TEMP 36.7
[2024-10-20 02:57] VITALS: BP 124/65; PULSE 85; RESP 18; TEMP 36.7; O2SAT 99
== END 2024-10-20 03:05 | disposition home or self-care (01) ==
PROVIDERS: Emergency Provider Internal Medicine; PCP Family Medicine
DX: M54.31 Sciatica, right side (principal); E11.9 Type 2 diabetes mellitus without complications; Z79.84 Long term (current) use of oral hypoglycemic drugs; Z79.899 Other long term (current) drug therapy
CPT/HCPCS: 96372; 99283; 99284; J1885

== ENCOUNTER 2024-10-26 04:09 | Outpatient (CLI) | payer MEDICARE, OTHER, SELFPAY | END 2024-10-26 04:10 | disposition home or self-care (01) | PROVIDERS: PCP Internal Medicine; Visit Provider Family Medicine | DX: R53.1 Weakness (principal) | CPT/HCPCS: A0425; A0429 ==

== ENCOUNTER 2024-10-26 04:56 | Emergency (ER) | payer MEDICARE, OTHER, SELFPAY ==
--- OUTSIDE RECORDS SUMMARY | 2024-09-19 14:20 | XMS_ITS | Encounter Summary ---
Author Organization [place] Address [facility] [place] [address] Care Team Providers Care Kiosk Sales Representative Name Role Phone Herb Herman MD Primary Care Provider [phone] Herb Herman MD Unavailable Trent Qureshi MD Unavailable [phone] Reason for Referral * Consultation (Routine: Next available opening) - Pending Review Specialty Diagnoses / Procedures Referred By Contac t Referred To Contact Diagnoses Lumbar stenosis with neurogenic claudication Sammy Villa MD [address] [address] Phone: tel: fax: Referral ID Status Reason Start Date Expiration Date V isits Requested Visits Authorized [id number] Pending Review 09/19/2024 09/19/2025 1 1 Question Answer Referral Type: Procedure Procedure: Epidural (Advanced imaging required in the last 3 years) Location: Lumbar Injection Type: Interlaminar ARTHUR Level: L3-4 Has the patient had a CT or MRI of the area of concern within the last 12 months? Yes Patient Scheduling Instructions: Our [facility] Orthopedic Chief I Dispatcher team will contact you via phone, text, email or MyChart within 2 business days to help you schedule your appointment, or you may contact the Chief I Dispatcher Team at . Additional Information: L3-4 or L4-5 ARTHUR Comments Please be aware that coverage of these services is subject to the terms and limitations of your health insurance plan. Call member services at your health plan with any benefit or coverage questions. Our [facility] Orthopedic Chief I Dispatcher team will contact you via phone, text, email or MyChart within 2 business days to help you schedule your appointment, or you may contact the Chief I Dispatcher Team at . * Rehab Therapy Physical Therapy (Routine: Next available opening) - Pending Review Specialty Diagnoses / Procedures Referred By Ambreen allen Referred To Contact Diagnoses Lumbar stenosis with neurogenic claudication Sammy Villa MD 420 [facility] [address] [place] [address] Phone: tel: fax: Referral ID Status Reason Start Date Expiration Date V isits Requested Visits Authorized [id number] Pending Review 09/19/2024 09/19/2025 1 1 Question Answer Course of Action: Evaluation and Treatment Specialty Services: Per Associated Diagnosis Patient Scheduling Instructions: [facility] will call you to coordinate your care as prescribed by your provider. If you don't hear from a tour sales representative within 2 business days, please call . Comments Please be aware that coverage of these services is subject to the terms and limitations of your health insurance plan. Call member services at your health plan with any benefit or coverage questions. [facility] will call you to coordinate your care as prescribed by your provider. If you don't hear from a tour sales representative within 2 business days, please call . Reason for Visit * Reason Comments Consult Low back pain * Consultation (Routine: Next available opening) - Closed Specialty Diagnoses / Procedures Referred By Contac t Referred To Contact Orthopedics Diagnoses Low back pain Douglas Hernandez MD [facility] [address] [facility] [address] [place] [address] Phone: tel: fax: Referral ID Status Reason Start Date Expiration Date Visits Re quested Visits Authorized [id number] Closed 09/11/2024 09/11/2025 1 1 Encounter Details Date Type Department Care Team (Late st Contact Info) Description 09/19/2024 2:20 PM CDT Office Visit [facility] [place] [address] [facility] [address] [place] [phone] Douglas Hernandez MD [facility] [address] [place], [place] [address] Sammy Villa MD [address] [facility] [address] [place], [place] [address] Lumbar stenosis with neurogenic claudication (Primary Dx); [...] How often do you attend chur or faith services? More than 4 times per year 06/08/2021 Do you belong to any clubs o r organizations such as taoist groups, unions, fraternal or athletic groups, or [...] Answer Date Recorded PHQ-2 Score 0 05/02/2024 [place] of Occupat ional Health - Occupational Stress [...] in an abandoned building, in an overnight senior living, or couch-surfing.) Yes 04/25/2023 Are you worried [...] AM CDT Legal Sex Female 3:11 AM POT HOLDER BINDER Gender Identity Female 01/16/2019 8:38 AM CDT Sexual Orientation Choose not to disclose 2021 11:32 AM POT HOLDER BINDER Occupation Industry Job Start Date Job End [...] if symptoms persist after this timeframe. Our [facility] Orthopedic Chief I Dispatcher team will contact you via phone, text, email or MyChart within 2 business days to help you schedule your appointment, or you may contact the Chief I Dispatcher Team at . Order placed for physical therapy. You can call the phone number highlighted in the order to schedule your appointment. Please call our clinic if symptoms persist after your course of physical therapy. If you have not heard from the scheduling office within 2 business days, please call [phone] for [facility], for [place] and [phone] for [facility]. Please call us if you have any further questions or concerns. [facility] documented in this encounter [...] Due to statin intolerance vitamin D2 (ERGOCALCIFEROL) 84930 units (1250 mcg) capsule TAKE ONE CAPSULE [...] Description 11/14/2024 10:30 AM CDT Office Visit [facility] [address] [place] [address] [place] [address] [place] [address] Scheduled Referrals Name Type Priority Associated Diagnoses Orde r Schedule Physical Therapy Chief I Dispatcher Referral Referral Routine: Next available opening Lumbar stenosis with neurogenic claudication Expected: 09/19/2024 (Approximate), Expires: 09/19/2025 Spine Chief I Dispatcher Referral Referral Routine: Next available opening Lumbar [...] Total Score: 0 05/02/19 25 10:13 AM POT HOLDER BINDER documented as of this encounter Care Teams Kiosk Sales Representative Relationship Specialty [place] [address] [place] [address] PCP - General Family Medicine 12/24/20 [place] [address] [place] [address] Assigned PCP 01/04/21 Trent Qureshi MD [facility] [address] [place] [address] Orthopaedic Surgery 09/16/21 documented as of this encounter
--- OUTSIDE RECORDS SUMMARY | 2024-09-26 10:15 | XMS_ITS | Encounter Summary ---
Author Organization [place] Address Formerly [facility] [place] [address] Care Team Providers Care Cobbler Mckay Name Role Phone Herb Herman MD Primary Care Provider [phone] Herb Herman MD Unavailable Trent Qureshi MD Unavailable [phone] Reason for Referral * Clinically Administered Medications (Routine) - Closed Specialty Diagnoses / Procedures Referred By Contac t Referred To Contact Diagnoses unknown [place] [address] [place] [address] Phone: tel: fax: Referral ID Status Reason Start Date Expiration Date Visits Re quested Visits Authorized [id number] Closed 09/26/2024 09/26/2025 1 1 Reason for Visit * Reason Comments Pain * Consultation (Routine: Next available opening) - Pending Review Specialty Diagnoses / Procedures Referred By Contac t Referred To Contact Diagnoses Lumbar stenosis with neurogenic claudication Sammy Villa MD [address] [facility] [address] [place] [address] Phone: tel: fax: Referral ID Status Reason Start Date Expiration Date V isits Requested Visits Authorized [id number] Pending Review 09/19/2024 09/19/2025 1 1 Encounter Details Date Type Department Care Team (Latest Contact Info) Description 09/26/2024 10:15 AM CDT Radiology Injection Office Visit [facility] [place] [id number] [place] [address] [address] [place], [place] [id number] Sammy Villa MD [address] [facility] [address] [place] [address] [place] [address] [place] [id number] Lumbar radiculopathy (Primary Dx); Lumbar stenosis with neurogenic claudication Social History Tobacco Use Types Packs/Day Years [...] week 06/08/2021 How often do you attend [facility] or [facility] services? More than 4 times per year 06/08/2021 Do you belong to any clubs o r organizations such as yarsani groups, unions, fraternal or athletic groups, or [...] Answer Date Recorded PHQ-2 Score 0 05/02/2024 [facility]at [facility] - Occupational Stress [...] Answer Date Recorded Do you have housing? 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 Daniel Dunlap Your procedure: Interlaminar Epidural steroid injection Medications used: Lidocaine (anesthetic) Kenalog (steroid) Omnipaque (contrast) If you were holding your blood thinning medication, please restart taking it: N/A Be cautious when walking as numbness and/or weakness in the legs may occur up to 6-8 hours after the procedure due to effect of the local anesthetic Do not drive for 6 hours. The effect of the local anesthetic could slow your reflexes. Avoid strenuous activity for the first 24 hours. You may resume your regular activities after that. You may shower, however avoid swimming, tub baths or hot tubs for 24 hours following your procedure You may have a mild to moderate increase in pain for several days following the injection. You may use ice packs for 10-15 minutes, 3 to 4 times a day at the injection site for comfort Do not use heat to painful areas for 6 to 8 hours. This will give the local anesthetic time to wearoff and prevent you from accidentally burning your skin. Unless you have been directed to avoid the use of anti-inflammatory medications (NSAIDS-ibuprofen, Aleve, Motrin), you may use these medications or Tylenol for pain control if needed. With diabetes, check your blood sugar more frequently than usual as your blood sugar may be higher than normal for 10-14 days following a steroid injection. Contact your doctor who manages your diabetes if your blood sugar is higher than usual Possible side effects of steroids that you may experience include flushing, elevated blood pressure, increased appetite, mild headaches and restlessness. All of these symptoms will get better with time. It may take up to 14 days for the steroid medication to start working although you may feel the effect as early as a few days after the procedure. Follow up with Dr. Villa in 2-3 weeks If you experience any of the following, call the pain center line during work hours at [phone] on-call physician after hours at [phone]: -Fever over 100 degree F -Swelling, bleeding, redness, drainage, warmth at the injection site -Progressive weakness or numbness in your legs or arms -Loss of bowel or bladder function -Unusual headache that is not relieved by Tylenol or your regular headache medication -Unusual new onset of pain that is not improving documented in this encounter Progress Notes * Daniel Dunlap MD - 09/26/2024 10:15 AM CDT Images from the original note were not included. [facility] - Procedure Note Date of Visit: 09/26/2024 Procedure performed: CAUDAL ARTHUR - Lumbar L3-4 and L4-5 interlaminar epidural steroid injections were attempted from multiple angles for over 45min and I was unable to enter the epidural space secondary to osteophytes/bone spurs/scar tissue? At that point decision was make to try a caudal epidural which I was able to do for her with her verbal consent to change the procedure. Diagnosis: Lumbar spondylosis; Lumbar radiculitis/radiculopathy President + Publisher: Daniel Dunlap MD Anesthesia: none Indications: Angela Lamar is a 78 year old female who is seen at the request of Dr. Villa for a lumbar epidural steroid injection. The patient describes low back pain with radiation into the posterior thighs and calves bilaterally. The patient has been exhibiting symptoms consistent with lumbar intraspinal inflammation and radiculopathy. Symptoms have been persistent, disabling, and intermittently severe. The patient reports minimal improvement with conservative treatment, including previous lumbar surgery in the past, PT and medications. She reports previous attempts many years ago to do ILESI's have been unsuccessful on multiple occasions. She was able to have a caudal ARTHUR in the past but it was not helpful for her pain at that time. However, her pain is now different then it was at that time. LABS: HgbA1c - 7.1 MRI LUMBAR SPINE was done @ [facility] on 02/15/2024 and was reviewed - I do not have the formal radiology read of the films as it states exam was aborted on the [facility] provider portal but was able to review the images. Allergies: Allergies Allergen Reactions Morphine Anaphylaxis respiratory arrest PT TOLERATES OXYCODONE Doxycycline GI Disturbance vomiting Atorvastatin myalgias Crestor [Rosuvastatin] myalgias Erythromycin stomach cramps Niacin Hot flashes Piroxicam GI upset Pravastatin Myalgias Simvastatin muscle cramps, weakness in legs Vitals: BP (!) 172/78 Pulse 74 LMP 02/21/2002 SpO2 95% Review of Systems: The patient denies recent fever, chills, illness, use of antibiotics or anticoagulants. All other 10-point review of systems negative. Procedure: The procedure and risks were explained, and informed written consent was obtained from the patient. Risks include but are not limited to: infection, bleeding, increased pain, and damage tosoft tissue, nerve, muscle, and vasculature structures. After getting informed consent, patient wasbrought into the procedure suite and was placed in a prone position on the procedure table. A Pausefor the Cause was performed. Patient was prepped and draped in sterile fashion. The L3-4 and 4-5 interspace was identified with use of fluoroscopy in AP view. A 25-gauge, 1.5 inchneedle was used to anesthetize the skin and subcutaneous tissue entry site with a total of 2 ml of 1% lidocaine. Under fluoroscopic visualization, a 20-gauge, 4.5 inch Tuohy epidural needle was slowly advanced towards the epidural space a few millimeters left of midline. Unfortunately, I was unableto pass the needle into the epidural space. At this point the procedure was aborted and the decision was made to try a caudal ARTHUR instead. A 22G 5 inch needle was advanced, guided with fluoroscopy in the lateral view, into the caudal space. After negative aspiration for heme and cerebrospinal fluid, a total of 1 mL of non-ionic contrastwas injected to confirm needle placement with 0 mL of contrast wasted. Epidurogram confirmed spreadwithin the posterior caudal epidural space. 1 ml of 40mg/ml of triamcinolone, 2 ml of 1% lidocaine,and 1 ml of preservative free saline was injected. The needle was removed. Images were saved to PACS. The patient tolerated the procedure well, and there was no evidence of procedural complications. Nonew sensory or motor deficits were noted following the procedure. The patient was stable and able to ambulate on discharge home. Post-procedure instructions were provided. Pre-procedure pain score: 7/10 in the back, 7/10 in the leg Post-procedure pain score: 1/10 in the back, 1/10 in the leg Assessment/Plan: Angela Lamar is a 78 year old female s/p CAUDAL epidural steroid injection today for lumbar spondylosis and radiculitis/radiculopathy. 1. Following today's procedure, the patient was advised to contact the Pain Management Center for any of the following: Fever, chills, or night sweats New onset of pain, numbness, or weakness Any questions/concerns regarding the procedure If unable to contact the Pain Center, the patient was instructed to go to a local Emergency Room for any complications. 2. Follow-up with the referring provider in 2 weeks for post-procedure evaluation. DANIEL DUNLAP MD Pain Management documented in this encounter Nursing Notes * Mikala Staley MA - 09/26/2024 10:15 AM CDT Pre-procedure Intake If YES to any questions or NO to having a delivery driver Please complete laminated checklist and leave on the computer keyboard for Provider, verbally inform provider if able. For SCS Trial, RFA's or any sedation procedure: Have you been fasting? NA If yes, for how long? Are you taking any any blood thinners such as Coumadin, Warfarin, Jantoven, Pradaxa Xarelto, Eliquis, Edoxaban, Enoxaparin, Lovenox, Heparin, Arixtra, Fondaparinux, or Fragmin? OR Antiplatelet medication such as Plavix, Brilinta, or Effient? No If yes, when did you take your last dose? Do you take aspirin? No If cervical procedure, have you held aspirin for 6 days? NA Is the Pt taking any GLP-1 Antagonist (hold needed for sedation patients only) (semaglutide (Ozempic, Wegovy), dulaglutide (Trulicity), exenatide ER (Bydureon), tirzepatide (Mounjaro), Liraglutide (Saxenda, Victoza), semaglutide (Rybelsus) NA If yes, when did you take your last dose? Do you have any allergies to contrast dye, iodine, steroid and/or numbing medications? NO Are you currently taking antibiotics or have an active infection? NO Have you had a fever/elevated temperature within the past week? NO Are you currently taking oral steroids? NO Do you have a delivery driver? Yes Are you or ? Not Applicable Have you received any vaccinations in the last week? NO Vitals: B/P 172/78 Manual Recheck: B/P 148/68 Notify provider and RNs if systolic BP >170, diastolic BP >100, P >100 or O2 sats < 90% Mikala Staley MA [facility] * Ruma Velazquez RN - 09/26/2024 10:15 AM CDT Discharge Information IV Discontiued Time: NA Amount of Fluid Infused: NA Discharge Criteria = When patient returns to baseline or as per MD order Consciousness: Pt is fully awake Circulation: BP +/- 20% of pre-procedure level Respiration: Patient is able to breathe deeply O2 Sat: Patient is able to maintain O2 Sat >92% on room air Activity: Moves 4 extremities on command Ambulation: Patient is able to stand and walk or stand and pivot into wheelchair Dressing: Clean/dry or No Dressing Notes: Discharge instructions and AVS given to patient Patient meets criteria for discharge? YES Admitted to PCU? No Responsible adult present to accompany patient home? Yes Signature/Title: Ruma R Yelle, RN RN Chief Sales Officer [facility] [place] documented in this encounter Plan of Treatment Upcoming Encounters Date Type Department Care Team (Late st Contact Info) Description 11/14/2024 10:30 AM CDT Office Visit [facility] [id number] [place] [phone] [place] [address] [place] [address] documented as of this encounter Procedures Procedure Name Priority Date/Time Associated Diagnosis Comments PAIN CAUDAL EPIDURAL INJECTION Routine 09/26/2024 10:40 AM CDT Lumbar radiculopathy documented in this encounter Results * PAIN Caudal Epidural Injection (09/26/2024 10:40 AM CDT) Anatomical Region Laterality Modality Radio Fluoroscop y Narrative 09/26/2024 10:53 AM CDT Table formatting from the original result was not included. Images from the original result were not included. [facility] - Procedure Note Date of Visit: 09/26/2024 Procedure performed: CAUDAL ARTHUR - Lumbar L3-4 and L4-5 interlaminar epidural steroid injections were attempted from multiple angles for over 45min and I was unable to enter the epidural space secondary to osteophytes/bone spurs/scar tissue? At that point decision was make to try a caudal epidural which I was able to do for her with her verbal consent to change the procedure. Diagnosis: Lumbar spondylosis; Lumbar radiculitis/radiculopathy President + Publisher: Daniel Dunlap MD Anesthesia: none Indications: Angela Lamar is a 78 year old female who is seen at the request of Dr. Villa for a lumbar epidural steroid injection. The patient describes low back pain with radiation into the posterior thighs and calves bilaterally. The patient has been exhibiting symptoms consistent with lumbar intraspinal inflammation and radiculopathy. Symptoms have been persistent, disabling, and intermittently severe. The patient reports minimal improvement with conservative treatment, including previous lumbar surgery in the past, PT and medications. She reports previous attempts many years ago to do ILESI's have been unsuccessful on multiple occasions. She was able to have a caudal ARTHUR in the past but it was not helpful for her pain at that time. However, her pain is now different then it was at that time. LABS: HgbA1c - 7.1 MRI LUMBAR SPINE was done @ [facility] on 02/15/2024 and was reviewed - I do not have the formal radiology read of the films as it states exam was aborted on the [facility] provider portal but was able to review the images. Allergies: Allergies Allergen Reactions Morphine Anaphylaxis respiratory arrest PT TOLERATES OXYCODONE Doxycycline GI Disturbance vomiting Atorvastatin myalgias Crestor [Rosuvastatin] myalgias Erythromycin stomach cramps Niacin Hot flashes Piroxicam GI upset Pravastatin Myalgias Simvastatin muscle cramps, weakness in legs Vitals: BP (!) 172/78 Pulse 74 LMP 02/21/2002 SpO2 95% Review of Systems: The patient denies recent fever, chills, illness, use of antibiotics or anticoagulants. All other 10-point review of systems negative. Procedure: The procedure and risks were explained, and informed written consent was obtained from the patient. Risks include but are not limited to: infection, bleeding, increased pain, and damage to soft tissue, nerve, muscle, and vasculature structures. After getting informed consent, patient was brought into the procedure suite and was placed in a prone position on the procedure table. A Pause for the Cause was performed. Patient was prepped and draped in sterile fashion. The L3-4 and 4-5 interspace was identified with use of fluoroscopy in AP view. A 25-gauge, 1.5 inch needle was used to anesthetize the skin and subcutaneous tissue entry site with a total of 2 ml of 1% lidocaine. Under fluoroscopic visualization, a 20-gauge, 4.5 inch Tuohy epidural needle was slowly advanced towards the epidural space a few millimeters left of midline. Unfortunately, I was unable to pass the needle into the epidural space. At this point the procedure was aborted and the decision was made to try a caudal ARTHUR instead. A 22G 5 inch needle was advanced, guided with fluoroscopy in the lateral view, into the caudal space. After negative aspiration for heme and cerebrospinal fluid, a total of 1 mL of non-ionic contrast was injected to confirm needle placement with 0 mL of contrast wasted. Epidurogram confirmed spread within the posterior caudal epidural space. 1 ml of 40mg/ml of triamcinolone, 2 ml of 1% lidocaine, and 1 ml of preservative free saline was injected. The needle was removed. Images were saved to PACS. The patient tolerated the procedure well, and there was no evidence of procedural complications. No new sensory or motor deficits were noted following the procedure. The patient was stable and able to ambulate on discharge home. Post-procedure instructions were provided. Pre-procedure pain score: 7/10 in the back, 7/10 in the leg Post-procedure pain score: 1/10 in the back, 1/10 in the leg Assessment/Plan: Angela Lamar is a 78 year old female s/p CAUDAL epidural steroid injection today for lumbar spondylosis and radiculitis/radiculopathy. 1. Following today's procedure, the patient was advised to contact the Pain Management Center for any of the following: Fever, chills, or night sweats New onset of pain, numbness, or weakness Any questions/concerns regarding the procedure If unable to contact the Pain Center, the patient was instructed to go to a local Emergency Room for any complications. 2. Follow-up with the referring provider in 2 weeks for post-procedure evaluation. DANIEL DUNLAP MD Pain Management Daniel Dunlap MD [facility] PAIN MANAGEMENT ORDERABLES Final Result documented in this encounter Visit Diagnoses Diagnosis Lumbar radiculopathy- Primary Thoracic or lumbosacral neuritis or radiculitis, unspecified Lumbar stenosis with neurogenic claudication Spinal stenosis, lumbar region, with neurogenic claudication documented in this encounter Administered Medications Inactive Administered Medications - up to 3 most recent administrations Medication Order MAR Action Action Date Dose Rate Site iohexol (OMNIPAQUE) 300 mg/mL injection 10 mL 10 mL, EPIDURAL, ONCE, On Tue09/26/24 at 1030, For 1 dose $Given by Other 09/26/2024 10:38 AM CDT 1 mL triamcinolone (KENALOG-40) injection 40 mg 40 mg, EPIDURAL, ONCE, On Tue09/26/24 at 1000, For 1 doseIndications:Lumbar radiculopathy $Given 09/26/2024 10:41 AM CDT 40 mg documented in this encounter Additional Health Concerns Assessment Noted Time PHQ-9 Depression Total Score: 0 05/02/19 25 10:13 AM DIGITAL LIBRARIAN documented as of this encounter Care Teams Cobbler Mckay Relationship Specialty [place] [address] [place] [address] PCP - General Family Medicine 12/24/20 [place] [address] [place] [address] Assigned PCP 01/04/21 Trent Qureshi MD [facility] [address] [place] [id number] Orthopaedic Surgery 09/16/21 documented as of this encounter
--- OUTSIDE RECORDS SUMMARY | 2024-10-08 15:30 | XMS_ITS | Encounter Summary ---
Author Organization [place] Address [address] [facility] [place] [address] Care Team Providers Care Role Player Name Role Phone Herb Herman MD Primary Care Provider [phone] Herb Herman MD Unavailable Trent Qureshi MD Unavailable [phone] Sammy Villa MD Unavailable [phone] Reason for Referral * Consultation (Priority: 1-2 Weeks) - Pending Review Specialty Diagnoses / Procedures Referred By Ambreen allen Referred To Contact Diagnoses TIA (transient ischemic attack) [place] [address] [place] [address] Phone: tel: fax: [facility] [address] [place] [address] Phone: tel: fax: Referral ID Status Reason Start Date Expiration Date V isits Requested Visits Authorized [id number] Pending Review 10/08/2024 10/08/2025 1 1 Question Answer Reason for Referral: Stroke Patient Scheduling Instructions: [facility] will call you to coordinate your care as prescribed by your provider. If you don't hear from a u.s. representative within 2 business days, please call . Additional Information: series of TIA; was in [facility] Comments Please be aware that coverage of these services is subject to the terms and limitations of your health insurance plan. Call member services at your health plan with any benefit or coverage questions. [facility] will call you to coordinate your care as prescribed by your provider. If you don't hear from a u.s. representative within 2 business days, please call . 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 * TIA (Transient Ischemic Attack) (Cook Islander) documented in this encounter Progress Notes * [...] not follow-up with neurology. - Adult Neurology American Sign Language Interpreter Referral Chronic kidney disease, stage 3a (H) [...] Questions Roomed by Ki Reese Accompanied by [facility] Hospital Follow-up Visit: [facility] Date of Admission: 10-02-24 Date of Discharge: [...] Psychiatric: Comments: Fearful, anxious Signed Electronically by: Herb Herman MD documented in this encounter Plan of Treatment Upcoming Encounters Date Type Department Care Team (Late st Contact Info) Description 11/14/2024 10:30 AM CDT Office Visit [facility] [address] [place] [phone] [place] [address] [place] [address] Scheduled Referrals Name Type Priority Associated Diagnoses Orde r Schedule Adult Neurology American Sign Language Interpreter Referral Referral Priority: 1-2 Weeks TIA (transient [...] documented as of this encounter Care Teams Role Player Relationship Specialty [place] [address] [place] [address] PCP - General Family Medicine 12/24/20 [place] [address] [place] [address] Assigned PCP 01/04/21 Trent Qureshi MD [facility] [address] [place] [address] Orthopaedic Surgery 09/16/21 Sammy Villa MD [address] [place] [address] Assigned Neuroscience Provider 10/01/24 documented as of this encounter
--- OUTSIDE RECORDS SUMMARY | 2024-10-18 14:00 | XMS_ITS | Encounter Summary ---
Author Organization [facility] Address [address] [place] [address] Care Team Providers Care Honey Grader And Blender Name Role Phone Herb Herman MD Primary Care Provider [phone] Reason for Referral * PT/OT/ST (Routine) - Authorized Specialty Diagnoses / Procedures Referred By Ambreen allen Referred To Contact Occupational Therapy Diagnoses Right hand weakness Right hand paresthesia Felisha Perez APRN, CNP [address] [place] [address] Phone: tel: fax: Referral ID Status Reason Start Date Expiration Date Visits Requested Visits Authorized [id number] Authorized Specialty Services Required 10/18/2024 1 1 Comments Right hand numbness/weakness, difficulty w. iADL, writing, eval/treat. * Consultation (Routine) - Authorized Specialty Diagnoses / Procedures Referred By Ambreen allen Referred To Contact Physical Therapy Diagnoses Abnormality of gait and mobility History of multiple strokes Felisha Perez APRN, CNP [address] [place] [address] Phone: tel: fax: Referral ID Status Reason Start Date Expiration Date Visits Requested Visits Authorized [id number] Authorized Specialty Services Required 10/18/2024 1 1 [...] APRN, CNP [address] [place] [address] Phone: tel: fax: Referral ID Status Reason Start Date Expiration Date Visits Requested Visits Authorized [id number] Authorized Specialty Services Required 10/18/2024 1 1 Comments Stroke, fluctuating speech changes * (Routine) - Open Specialty Diagnoses / Procedures Referred By Ambreen allen Referred To Contact Diagnoses Speech disturbance, unspecified type History of multiple strokes Procedures MRI BRAIN W/O CON Efren Elena MD [address] [place] [address] Phone: tel: fax: Referral ID Status Reason Start Date Expiration Date Visits Re quested Visits Authorized [id number] Open 01/04/2025 1 1 * (Routine) - Open Specialty Diagnoses / Procedures Referred By Ambreen allen Referred To Contact Diagnoses Speech disturbance, unspecified type History of multiple strokes Procedures ZIO MONITOR REGISTRATION Felisha Perez APRN, CNP [address] [place] [address] Phone: tel: fax: Referral ID Status Reason Start Date Expiration Date Visits Re quested Visits Authorized [id number] Open 10/18/2024 1 1 * (Routine) - Open Specialty Diagnoses / Procedures Referred By Ambreen allen Referred To Contact Diagnoses Speech disturbance, unspecified type History of multiple strokes Procedures ZIO MONITOR REGISTRATION Felisha Perez APRN, CNP [address] [place] [address] Phone: tel: fax: Referral ID Status Reason Start Date Expiration Date Visits Re quested Visits Authorized [id number] Open 10/18/2024 1 1 Reason for Visit * Reason Comments Consultation Stroke Encounter Details Date Type Department Care Team (Late st Contact Info) Description 10/18/2024 2:00 PM CDT Office Visit [facility] [address] [place] [phone] Felisha Perez APRN, CNP [address] [place] [address] Speech disturbance, unspecified type (Primary Dx); Abnormality [...] from the original note were not included. [facility] [address] [place] [address], [address] [place] [address] Neurology Initial Note / Consultation Assessment and Plan: #. Multiple Stroke -- initial sx: garbled speech -- exam: unsteady gait, positive romberg, right hand weakness/altered sensation -- risk factors: HLD, CKD, HTN, elevated BMI, DM -- [facility] records not able to be obtained prior [...] that her primary care provider is at [facility] until November. No prior occurrences of transient [...] Resource Strain: High Risk (04/25/2023) Received from [employer] Resource Strain Within the past 12 months, have you or your family members you live with been unable to get utilities (heat, electricity) when it was really needed?: Yes Food Insecurity: Low Risk (04/25/2023) Received from [employer] Food Insecurity Within the past 12 months, did you worry that your food would run out before you got money to buy more?: No Within the past 12 months, did the food you bought just not last and you didn???t have money to getmore?: No Transportation Needs: Low Risk (04/25/2023) Received from [employer] Transportation Needs Within the past 12 months, has lack of transportation kept you from medical appointments, getting your medicines, non-medical meetings or appointments, work, or from getting things that you need?: No Physical Activity: Inactive (06/08/2021) Received from [employer] Exercise Vital Sign Days of Exercise per Week: 0 days Minutes of Exercise per Session: 0 min Stress: No Stress Concern Present (06/08/2021) Received from [employer] [place] of Occupational Health - Occupational Stress Questionnaire Feeling of Stress : Not at all Social Connections: Moderately Integrated (06/08/2021) Received from [employer] Social Connection and Isolation Panel [NHANES] Frequency of Communication with Friends and Family: More than three times a week Frequency of Social Gatherings with Friends and Family: Three times a week Attends Orthodox Services: More than 4 times per year Active Member of Clubs or Organizations: No Attends Club or Organization Meetings: Not on file Marital Status: Intimate Partner Violence: Low Risk (05/02/2023) Received from [employer] Interpersonal Safety Do you feel physically and emotionally safe where you currently live?: Yes Within the past 12 months, have you been hit, slapped, kicked or otherwise physically hurt by someone?: No Within the past 12 months, have you been humiliated or emotionally abused in other ways by your partner or ex-partner?: No Housing Stability: Low Risk (04/25/2023) Received from [employer] Housing Stability Do you have housing? (Housing is defined as stable permanent housing and does not include staying outside in a car, in a tent, in an abandoned building, in an overnight long term, or couch-surfing.): Yes Are you worried about [...] hypertension documented in this encounter Care Teams Honey Grader And Blender Relationship Specialty [place] [address] [place] [address] PCP - General Family Medicine - 10/18/24 documented as of this encounter
--- OUTSIDE RECORDS SUMMARY | 2024-10-26 04:58 | XMS_ITS | Encounter Summary ---
Author Organization [place] Address [address] [place] [address] Care Team Providers Care Applied Computer Science Professor Name Role Phone Daniel Plaza MD Primary Care Provider [phone] Daniel Plaza MD Unavailable Daniel Plaza MD Unavailable Stan Barnes MD Unavailable [phone] Herb Herman MD Primary Care Provider [phone] Herb Herman MD Unavailable Stan Barnes MD Unavailable [phone] Trent Qureshi MD Unavailable [phone] Sammy Villa MD Unavailable Encounter Details Date Type Department Care Team (Late st Contact Info) Description 01/31/2006 MyC Medical Advice [facility] [address] [address] Daniel Plaza MD [address] [phone] Social History Tobacco Use Types Packs/Day Years Used Date Smoking Tobacco: Never Alcohol Use Standard Drinks/Week Comments Yes 0 (1 standard drink = 0.6 oz pur e alcohol) social Comments No Sex and Gender Information Value Date Recorded Sex Assigned at Female 01/16/2019 8:38 AM CDT Legal Sex Female 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 Gender Identity Female 01/16/2019 8:38 AM CDT Sexual Orientation Choose not to disclose 2021 11:32 AM FILM LABORATORY TECHNICIAN documented as of this encounter Plan of Treatment Upcoming Encounters Date Type Department Care Team (Late st Contact Info) Description 11/14/2024 10:30 AM CDT Office Visit [facility] [phone] [place] [phone] [place] [id number] [place] [address] documented as of this encounter Visit Diagnoses Not on filedocumented in this encounter Care Teams Applied Computer Science Professor Relationship Specialty Start Date End Date Daniel Plaza MD [address] [place] [phone] PCP - General 06/29/10 12/23/20 Daniel Plaza MD [address] [place] [address] PCP - Assigned PCP 02/05/08 06/13/18 [place] [address] [place] [address] PCP - General Family Medicine 12/24/20 Daniel Plaza MD [address] [place] [phone] Assigned PCP 01/13/12 01/03/21 Stan Barnes MD [address] [place] [address] Assigned Surgical Provider 02/01/20 07/19/20 [place] [address] [place] [address] Assigned PCP 01/04/21 Stan Barnes MD [address] [place] [address] Assigned Surgical Provider 08/30/21 08/31/23 Trent Qureshi MD [facility] [address] [place] [address] Orthopaedic Surgery 09/16/21 Smamy Villa MD [address] [place] [address] Assigned Neuroscience Provider 10/01/24 documented as of this encounter
--- OUTSIDE RECORDS SUMMARY | 2024-10-26 04:58 | XMS_ITS | Encounter Summary ---
Author Organization [place] Address [address] [place] [address] Care Team Providers Care Paleology Teacher Name Role Phone Daniel Plaza MD Primary Care Provider Daniel Plaza MD Unavailable Daniel Plaza MD Unavailable [phone] Stan Barnes MD Unavailable [phone] Herb Herman MD Primary Care Provider Herb Herman MD Unavailable Stan Barnes MD Unavailable [phone] Trent Qureshi MD Unavailable [phone] Sammy Villa MD Unavailable [phone] Encounter Details Date Type Department Care Team (Late st Contact Info) Description 05/18/2007 MyC Medical Advice [facility] [address] [address] Daniel Plaza MD [address] [phone] Social History Tobacco Use Types Packs/Day Years Used Date Smoking Tobacco: Never Alcohol Use Standard Drinks/Week Comments Yes 0 (1 standard drink = 0.6 oz pur e alcohol) social Comments No Sex and Gender Information Value Date Recorded Sex Assigned at Female 01/16/2019 8:38 AM CDT Legal Sex Female 3:11 AM DATA CONTROL CLERK SUPERVISOR Gender Identity Female 01/16/2019 8:38 AM CDT Sexual Orientation Choose not to disclose 2021 11:32 AM DATA CONTROL CLERK SUPERVISOR documented as of this encounter Plan of Treatment Upcoming Encounters Date Type Department Care Team (Late st Contact Info) Description 11/14/2024 10:30 AM CDT Office Visit [facility] [phone] [place] [phone] [place] [id number] [place] [address] documented as of this encounter Visit Diagnoses Not on filedocumented in this encounter Care Teams Paleology Teacher Relationship Specialty Start Date End Date Daniel Plaza MD [address] [place] [phone] PCP - General 06/29/10 12/23/20 Daniel Plaza MD [address] [place] [phone] PCP - Assigned PCP 02/05/08 06/13/18 [place] [address] [place] [address] PCP - General Family Medicine 12/24/20 Daniel Plaza MD [address] [place] [phone] Assigned PCP 01/13/12 01/03/21 Stan Barnes MD [address] [place] [address] Assigned Surgical Provider 02/01/20 07/19/20 [place] [address] [place] [address] Assigned PCP 01/04/21 Stan Barnes MD [address] [place] [address] Assigned Surgical Provider 08/30/21 08/31/23 Trent Qureshi MD [facility] [address] [place] [address] Orthopaedic Surgery 09/16/21 Sammy Villa MD [address] [place] [address] Assigned Neuroscience Provider 10/01/24 documented as of this encounter
--- OUTSIDE RECORDS SUMMARY | 2024-10-26 04:58 | XMS_ITS | Encounter Summary ---
Author Organization [place] Address [address] [place] [address] Care Team Providers Care Trench Shovel Operator Name Role Phone Daniel Torres MD Primary Care Provider [phone] Daniel Torres MD Unavailable Daniel Torres MD Unavailable [phone] Stan Barnes MD Unavailable [phone] Herb Herman MD Primary Care Provider [phone] Herb Herman MD Unavailable Stan Barnes MD Unavailable [phone] Trent Qureshi MD Unavailable [phone] Sammy Villa MD Unavailable Encounter Details Date Type Department Care Team (Late st Contact Info) Description 09/08/2007 [facility] [address] [phone] Daniel Torres MD [address] [phone] DJD ; HYPERLIPIDEMIA Social History Tobacco Use Types Packs/Day Years Used Date Smoking Tobacco: Never Alcohol Use Standard Drinks/Week Comments Yes 0 (1 standard drink = 0.6 oz pur e alcohol) social Comments No Sex and Gender Information Value Date Recorded Sex Assigned at Female 01/16/2019 8:38 AM CDT Legal Sex Female 3:11 AM LOADING DOCK HAND Gender Identity Female 01/16/2019 8:38 AM CDT Sexual Orientation Choose not to disclose 2021 11:32 AM LOADING DOCK HAND documented as of this encounter Miscellaneous Notes * Telephone Encounter - Vero Carr - 09/08/2007 2:01 PM CDT[facility]: Original authorizing provider: Savanna VILLALOBOS would like a refill of the following medications: SIMVASTATIN 80 MG OR TABS [DANIEL TORERS M.D.] CELEBREX 200 MG OR CAPS [DAINEL TORRES M.D.] Preferred pharmacy: [email or web address] Comment: I have requested my medications for the past two days. I have not received a response. With the weekend coming it sometimes takes longer for the pharmacy to fill the prescription. Please advise documented in this encounter Plan of Treatment Upcoming Encounters Date Type Department Care Team (Late st Contact Info) Description 11/14/2024 10:30 AM CDT Office Visit [address] [phone] [place]b Herman [place] [id number] [place] [address] documented as of this encounter Visit Diagnoses Diagnosis DJD Generalized osteoarthrosis, unspecified site HYPERLIPIDEMIA Other and unspecified hyperlipidemia documented in this encounter Care Teams Trench Shovel Operator Relationship Specialty Start Date End Date Daniel Torres MD [address] [place] [phone] PCP - General 06/29/10 12/23/20 Daniel Torres MD [address] [phone] PCP - Assigned PCP 02/05/08 06/13/18 [place] [address] [place] [address] PCP - General Family Medicine 12/24/20 Daniel Torres MD [address] [place] [phone] Assigned PCP 01/13/12 01/03/21 Stan Barnes MD [address] [place] [address] Assigned Surgical Provider 02/01/20 07/19/20 [place] [address] [place] [address] Assigned PCP 01/04/21 Stan Barnes MD [address] [place] [address] Assigned Surgical Provider 08/30/21 08/31/23 Trent Qureshi MD [facility] [address] [address] Orthopaedic Surgery 09/16/21 Sammy Villa MD [address] [place] [address] [address] [place] [address] Assigned Neuroscience Provider 10/01/24 documented as of this encounter
--- OUTSIDE RECORDS SUMMARY | 2024-10-26 04:58 | XMS_ITS | Encounter Summary ---
Author Organization [place] Address [address] [place] [address] Care Team Providers Care Commercial Finance Manager Name Role Phone Daniel Plaza MD Primary Care Provider Daniel Plaza MD Unavailable [phone] Daniel Plaza MD Unavailable [phone] Stan Barnes MD Unavailable [phone] Herb Herman MD Primary Care Provider Herb Herman MD Unavailable Stan Barnes MD Unavailable [phone] Trent Qureshi MD Unavailable [phone] Sammy Villa MD Unavailable Encounter Details Date Type Department Care Team (Late st Contact Info) Description 06/23/2011 MyC Medical Advice [facility] [address] [address] Daniel Plaza MD [address] [phone] Social History Tobacco Use Types Packs/Day Years Used Date Smoking Tobacco: Never Smokeless Tobacco: Never Alcohol Use Standard Drinks/Week Comments No 0 (1 standard drink = 0.6 oz pur e alcohol) Comments No Sex and Gender Information Value Date Recorded Sex Assigned at Female 01/16/2019 8:38 AM CDT Legal Sex Female 3:11 AM STERILE TECH Gender Identity Female 01/16/2019 8:38 AM CDT Sexual Orientation Choose not to disclose 2021 11:32 AM STERILE TECH documented as of this encounter Plan of Treatment Upcoming Encounters Date Type Department Care Team (Late st Contact Info) Description 11/14/2024 10:30 AM CDT Office Visit [facility] [address] [place] [phone] [place] Herman [place] [id number] [place] [address] documented as of this encounter Visit Diagnoses Not on filedocumented in this encounter Care Teams Commercial Finance Manager Relationship Specialty Start Date End Date Daniel Plaza MD [address] [place] [phone] PCP - General 06/29/10 12/23/20 Daniel Plaza MD [address] [place] [phone] PCP - Assigned PCP 02/05/08 06/13/18 [place] [address] [place] [address] PCP - General Family Medicine 12/24/20 Daniel Plaza MD [address] [place] [phone] Assigned PCP 01/13/12 01/03/21 Stan Barnes MD [address] [place] [address] Assigned Surgical Provider 02/01/20 07/19/20 [place] [address] [place] [address] Assigned PCP 01/04/21 Stan Barnes MD [address] [place] [address] Assigned Surgical Provider 08/30/21 08/31/23 Trent Qureshi MD [facility] [address] [place] [address] Orthopaedic Surgery 09/16/21 Sammy Villa MD [address] [place] [address] [address] [place] [address] Assigned Neuroscience Provider 10/01/24 documented as of this encounter
--- OUTSIDE RECORDS SUMMARY | 2024-10-26 04:58 | XMS_ITS | Encounter Summary ---
Author Organization [place] Address [address] [place] [address] Care Team Providers Care Anodic Treater Name Role Phone Daniel Plaza MD Primary Care Provider Daniel Plaza MD Unavailable Daniel Plaza MD Unavailable Stan Barnes MD Unavailable [phone] Herb Herman MD Primary Care Provider Herb Herman MD Unavailable Stan Barnes MD Unavailable [phone] Trent Qureshi MD Unavailable [phone] Sammy Villa MD Unavailable [phone] Encounter Details Date Type Department Care Team (Latest Contact Info) Description 01/24/[address] [facility] Medical Advice [facility] [address] [phone] Daniel Plaza MD [address] [phone] Spinal stenosis of lumbar region [...] AM CDT Legal Sex Female 3:11 AM VAT CLEANER Gender Identity Female 01/16/2019 8:38 AM CDT Sexual Orientation Choose not to disclose 2021 11:32 AM VAT CLEANER documented as of this encounter Plan of Treatment Upcoming Encounters Date Type Department Care Team (Late st Contact Info) Description 11/14/2024 10:30 AM CDT Office Visit [facility] [phone] [place] [phone] [place] [id number] [place] [address] documented as of this encounter Visit Diagnoses Diagnosis Spinal stenosis of lumbar region with neurogenic claudication- Primary Spinal stenosis, lumbar region, with neurogenic claudication documented in this encounter Additional Health Concerns Assessment Noted Time PHQ-9 Depression Total Score: 0 12/23/19 16 7:14 AM CDT documented as of this encounter Care Teams Anodic Treater Relationship Specialty Start Date End Date Daniel Plaza MD [address] [place] [phone] PCP - General 06/29/10 12/23/20 Daniel Plaza MD [address] [place] [phone] PCP - Assigned PCP 02/05/08 06/13/18 [place] [address] [place] [address] PCP - General Family Medicine 12/24/20 Daniel Plaza MD [address] [place] [phone] Assigned PCP 01/13/12 01/03/21 Stan Barnes MD [address] [place] [address] Assigned Surgical Provider 02/01/20 07/19/20 [place] [address] [place] [address] Assigned PCP 01/04/21 Stan Barnes MD [address] [place] [address] Assigned Surgical Provider 08/30/21 08/31/23 Trent Qureshi MD [facility] [address] [place] [address] Orthopaedic Surgery 09/16/21 Sammy Villa MD [address] [place] [address] [address] [place] [address] Assigned Neuroscience Provider 10/01/24 documented as of this encounter
--- OUTSIDE RECORDS SUMMARY | 2024-10-26 04:58 | XMS_ITS | Encounter Summary ---
Author Organization [place] Address [address] [place] [address] Care Team Providers Care Asbestos Surveyor Name Role Phone Daniel Plaza MD Primary Care Provider Daniel Plaza MD Unavailable Daniel Plaza MD Unavailable Stan Barnes MD Unavailable [phone] Herb Herman MD Primary Care Provider [phone] Herb Herman MD Unavailable Stan Barnes MD Unavailable [phone] Trent Qureshi MD Unavailable [phone] Sammy Villa MD Unavailable Encounter Details Date Type Department Care Team (Late st Contact Info) Description 11/21/2001 Abstract M [facility] [address] [address] Daniel Plaza MD [address] [phone] Social History Tobacco Use Types Packs/Day Years Used Date Smoking Tobacco: Never Assessed Comments No Sex and Gender Information Value Date Recorded Sex Assigned at Female 01/16/2019 8:38 AM CDT Legal Sex Female 3:11 AM PLANER SETTER Gender Identity Female 01/16/2019 8:38 AM CDT Sexual Orientation Choose not to disclose 2021 11:32 AM PLANER SETTER documented as of this encounter Plan of Treatment Upcoming Encounters Date Type Department Care Team (Late st Contact Info) Description 11/14/2024 10:30 AM CDT Office Visit [facility] [address] [place] [address] [place] [address] [place] [address] documented as of this encounter Visit Diagnoses Not on filedocumented in this encounter Care Teams Asbestos Surveyor Relationship Specialty Start Date End Date Daniel Plaza MD [address] [place] [phone] PCP - General 06/29/10 12/23/20 Daniel Plaza MD [address] [place] [phone] PCP - Assigned PCP 02/05/08 06/13/18 [place] [address] [place] [address] PCP - General Family Medicine 12/24/20 Daniel Plaza MD [address] [place] [phone] Assigned PCP 01/13/12 01/03/21 Satn Barnes MD [address] [place] [address] Assigned Surgical Provider 02/01/20 07/19/20 [place] [address] [place] [address] Assigned PCP 01/04/21 Stan Barnes MD [address] [place] [address] [id number] Assigned Surgical Provider 08/30/21 08/31/23 Trent Qureshi MD [facility] [address] [place] [address] Orthopaedic Surgery 09/16/21 Sammy Villa MD [address] [place] [address] 904335 Assigned Neuroscience Provider 10/01/24 documented as of this encounter
--- OUTSIDE RECORDS SUMMARY | 2024-10-26 04:58 | XMS_ITS | Encounter Summary ---
Author Organization [place] Address [address] [place] [address] Care Team Providers Care Seed Laboratory Technician Name Role Phone Daniel Plaza MD Primary Care Provider Daniel Plaza MD Unavailable Daniel Plaza MD Unavailable Stan Barnes MD Unavailable [phone] Herb Herman MD Primary Care Provider Herb Herman MD Unavailable Stan Barnes MD Unavailable [phone] Trent Stratton MD Unavailable [phone] Sammy Villa MD Unavailable Encounter Details Date Type Department Care Team (Late st Contact Info) Description 03/01/2003 [facility] [address] [address] Daniel Plaza MD [address] [phone] OP REPT (Primary Dx) Social History Tobacco Use Types Packs/Day Years Used Date Smoking Tobacco: Never Passive Smoke Exposure: Never Smokeless Tobacco: Never Alcohol Use Standard Drinks/Week Comments Never 0 (1 standard drink = 0.6 oz pur e alcohol) Comments No Sex and Gender Information Value Date Recorded Sex Assigned at Female 01/16/2019 8:38 AM CDT Legal Sex Female 3:11 AM SENIOR OFFICER Gender Identity Female 01/16/2019 8:38 AM CDT Sexual Orientation Choose not to disclose 2021 11:32 AM SENIOR OFFICER 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 file documented as of this encounter Progress Notes * 03/01/2003 11:59 PM [id number] 00:00 Operative Report-[facility] TRENT STRATTON () [Entered: 00:00 Transcr iption ([facility])] 1st ASS'T: Alexander Gamble CST 2nd [...] STRATTON MD D: 06:24 MT: sb Document: [id number] [place], [place] Name: MICHAEL LAMAR OPERATIVE REPORT Page 2 of 2 LCN: 57 DSC: [place], [place] Name: MICHAEL LAMAR MR#: : Procedure Date: -98 1945 03/01/2003 Surgeon: TRENT STRATTON MD OPERATIVE REPORT Page 1 of 2 Electronically filed by Hu Porter 03/06/2003 10:43 AM documented in this encounter Plan of Treatment Upcoming Encounters Date Type Department Care Team (Late st Contact Info) Description 11/14/2024 10:30 AM CDT Office Visit [address] [phone] Herb Herman MD [address] [place] [address] documented as of this encounter Visit Diagnoses Diagnosis OP REPT- Primary documented in this encounter Care Teams Seed Laboratory Technician Relationship Specialty Start Date End Date Daniel Plaza MD [address], [place] [phone] PCP - General 06/29/10 12/23/20 Daniel Plaza MD [address] [place] [phone] PCP - Assigned PCP 02/05/08 06/13/18 [place] [address] [place] [address] PCP - General Family Medicine 12/24/20 Daniel Plaza MD [address] [place] [phone] Assigned PCP 01/13/12 01/03/21 Stan Barnes MD [address] [place] [address] Assigned Surgical Provider 02/01/20 07/19/20 [place] [address] [place] [address] Assigned PCP 01/04/21 Stan Barnes MD 909 [place] [address] Assigned Surgical Provider 08/30/21 08/31/23 Trent Stratton MD [facility] [address] [phone] Orthopaedic Surgery 09/16/21 Sammy Villa MD [address] [place] [address] Assigned Neuroscience Provider 10/01/24 documented as of this encounter
--- OUTSIDE RECORDS SUMMARY | 2024-10-26 04:58 | XMS_ITS | Encounter Summary ---
Author Organization [place] Address [address] [place] [address]. [place] [address] Care Team Providers Care Electrical Products Engineer Name Role Phone Herb Herman MD Primary Care Provider [phone] Herb Herman MD Unavailable Trent Qureshi MD Unavailable [phone] Sammy Villa MD Unavailable [phone] Encounter Details Date Type Department Care Team (Late st Contact Info) Description 10/24/2024 [facility] Neurology [address], [address] [place] [address] Ana Larsen, IRENE Social History Tobacco [...] Answer Date Recorded PHQ-2 Score 6 10/08/2024 [facility] [place] of Occupat ional Health - Occupational Stress [...] AM CDT Legal Sex Female 3:11 AM HUMAN RESOURCES REPRESENTATIVE Gender Identity Female 01/16/2019 8:38 AM CDT Sexual Orientation Choose not to disclose 2021 11:32 AM HUMAN RESOURCES REPRESENTATIVE 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 file documented as of this encounter Plan of Treatment Upcoming Encounters Date Type Department Care Team (Late st Contact Info) Description 11/14/2024 10:30 AM CDT Office Visit [facility] [phone] [place] [address] [place] [address] [place] [address] documented as of this encounter Visit Diagnoses Not on filedocumented in this encounter Additional Health Concerns Assessment Noted Time PHQ-9 Depression Total Score: 22 10/08/ 025 3:11 PM CDT documented as of this encounter Care Teams Electrical Products Engineer Relationship Specialty [place] [address] [place] [address] PCP - General Family Medicine 12/24/20 [place] [address] [place] [address] Assigned PCP 01/04/21 Trent Qureshi MD [facility] [address] [place] [address] 864755 Orthopaedic Surgery 09/16/21 Sammy Villa MD 420 [facility] 96 [place], [place] [phone] Assigned Neuroscience Provider 10/01/24 documented as of this encounter
--- OUTSIDE RECORDS SUMMARY | 2024-10-26 04:58 | XMS_ITS | Encounter Summary ---
Author Organization [facility] Address [address] [place] [address] Care Team Providers Care Lockstitch Front Edge Tape Sewer Name Role Phone Daniel Plaza MD Primary Care Provider Daniel Plaza MD Unavailable Daniel Plaza MD Unavailable [phone] Stan Barnes MD Unavailable [phone] Herb Herman MD Primary Care Provider [phone] Herb Herman MD Unavailable Stan Barnes MD Unavailable [phone] Trent Qureshi MD Unavailable [phone] Sammy Villa MD Unavailable [phone] Encounter Details Date Type Department Care Team (Late st Contact Info) Description 11/28/2001 Abstract M [facility] [address] [address] Daniel Plaza MD [address] [phone] Social History Tobacco Use Types Packs/Day Years Used Date Smoking Tobacco: Never Assessed Comments No Sex and Gender Information Value Date Recorded Sex Assigned at Female 01/16/2019 8:38 AM CDT Legal Sex Female 3:11 AM HISTOTECHNOLOGIST SUPERVISOR Gender Identity Female 01/16/2019 8:38 AM CDT Sexual Orientation Choose not to disclose 2021 11:32 AM HISTOTECHNOLOGIST SUPERVISOR documented as of this encounter Plan of Treatment Upcoming Encounters Date Type Department Care Team (Late st Contact Info) Description 11/14/2024 10:30 AM CDT Office Visit [facility] [address] [place] [address] [place] [address] [place] [address] documented as of this encounter Visit Diagnoses Not on filedocumented in this encounter Care Teams Lockstitch Front Edge Tape Sewer Relationship Specialty Start Date End Date Daniel Plaza MD [address] [place] [phone] PCP - General 06/29/10 12/23/20 Daniel Plaza MD [address] [place] [phone] PCP - Assigned PCP 02/05/08 06/13/18 [place] [address] [place] [address] PCP - General Family Medicine 12/24/20 Daniel Plaza MD [address] [place] [phone] Assigned PCP 01/13/12 01/03/21 Stan Barnes MD [address] [place] [address] Assigned Surgical Provider 02/01/20 07/19/20 [place] [address] [place] [address] Assigned PCP 01/04/21 Stan Barnes MD [address] [place] [address] [phone] Assigned Surgical Provider 08/30/21 08/31/23 Trent Qureshi MD [facility] [address] [place] [address] Orthopaedic Surgery 09/16/21 Sammy Villa MD [address] [place] [address] [phone] Assigned Neuroscience Provider 10/01/24 documented as of this encounter
--- OUTSIDE RECORDS SUMMARY | 2024-10-26 04:58 | XMS_ITS | Encounter Summary ---
Author Organization [place] Address [address] [place] [address] Care Team Providers Care Towing Pilot Name Role Phone Daniel Plaza MD Primary Care Provider Daniel Plaza MD Unavailable [phone] Daniel Plaza MD Unavailable [phone] Stan Barnes MD Unavailable Herb Herman MD Primary Care Provider Herb Herman MD Unavailable Stan Barnes MD Unavailable [phone] Trent Qureshi MD Unavailable [phone] Sammy Villa MD Unavailable [phone] Encounter Details Date Type Department Care Team (Late st Contact Info) Description 03/01/2011 [facility] [address] [address] Rodolfo Cline Social History Tobacco Use Types Packs/Day Years Used Date Smoking Tobacco: Never Alcohol Use Standard Drinks/Week Comments No 0 (1 standard drink = 0.6 oz pur e alcohol) Comments No Sex and Gender Information Value Date Recorded Sex Assigned at Female 01/16/2019 8:38 AM CDT Legal Sex Female 3:11 AM ASSEMBLY LINE MACHINE OPERATOR Gender Identity Female 01/16/2019 8:38 AM CDT Sexual Orientation Choose not to disclose 2021 11:32 AM ASSEMBLY LINE MACHINE OPERATOR documented as of this encounter Plan of Treatment Upcoming Encounters Date Type Department Care Team (Late st Contact Info) Description 11/14/2024 10:30 AM CDT Office Visit [facility] [address] [place] [address] [place] [address] [place] [address] documented as of this encounter Visit Diagnoses Not on filedocumented in this encounter Care Teams Towing Pilot Relationship Specialty Start Date End Date Daniel Plaza MD [address] [place] [phone] PCP - General 06/29/10 12/23/20 Daniel Plaza MD [address] [place] [phone] PCP - Assigned PCP 02/05/08 06/13/18 [place] [address] [place] [address] PCP - General Family Medicine 12/24/20 Daniel Plaza MD [address] [place] [phone] Assigned PCP 01/13/12 01/03/21 Stan Barnes MD 9 [place] [address] Assigned Surgical Provider 02/01/20 07/19/20 [place] [address] [place] [address] Assigned PCP 01/04/21 Stan Barnes MD [address] [place] [address] [phone] Assigned Surgical Provider 08/30/21 08/31/[address] [facility] [address] [place] [address] 801165 Orthopaedic Surgery 09/16/21 Sammy Villa MD 420 [facility] 96 [place], [place] 643275 Assigned Neuroscience Provider 10/01/24 documented as of this encounter
--- OUTSIDE RECORDS SUMMARY | 2024-10-26 04:59 | XMS_ITS | Encounter Summary ---
Author Organization [place] Address [facility] [place] [address] Care Team Providers Care Spanish Literature Professor Name Role Phone Herb Herman MD Primary Care Provider [phone] Herb Herman MD Unavailable Stan Barnes MD Unavailable [phone] Trent Qureshi MD Unavailable [phone] Sammy Villa MD Unavailable [phone] Reason for Visit * Reason Onset Date Comments MyChart Communication 01/06/2023 Encounter Details Date Type Department Care Team (Latest Contact Info) Description 01/06/2023 MyC Medical Advice [facility] [address] [place] [address] [place] [address] [place] [address] MyChart Communication Social History Tobacco [...] How often do you attend chur or mosque services? More than 4 times per year 06/08/2021 Do you belong to any clubs o r organizations such as rastafari groups, unions, fraternal or athletic groups, or [...] Answer Date Recorded PHQ-2 Score 0 08/02/2022 [facility] [place] of Occupat ional Health - Occupational Stress [...] AM CDT Legal Sex Female 3:11 AM AFFILIATE MARKETING COORDINATOR Gender Identity Female 01/16/2019 8:38 AM CDT Sexual Orientation Choose not to disclose 2021 11:32 AM AFFILIATE MARKETING COORDINATOR Occupation Industry Job Start Date Job [...] Description 11/14/2024 10:30 AM CDT Office Visit [facility] [address] [place] [address] [place] [address] [place] [address] documented as of this encounter Visit Diagnoses Not on filedocumented in this encounter Additional Health Concerns Assessment Noted Time PHQ-9 Depression Total Score: 1 08/03/19 23 1:10 PM CDT documented as of this encounter Care Teams Spanish Literature Professor Relationship Specialty [place] [address] [place] [address] PCP - General Family Medicine 12/24/20 [place] [address] [place] [address] Assigned PCP 01/04/21 Stan Barnes MD [address] [place] [address] 012565 Assigned Surgical Provider 08/30/21 08/31/23 Trent Qureshi MD [facility] [address] [place] [address] 384295 Orthopaedic Surgery 09/16/21 Sammy Villa MD [address] [place] [address] 96 [place], [place] 084095 Assigned Neuroscience Provider 10/01/24 documented as of this encounter
--- OUTSIDE RECORDS SUMMARY | 2024-10-26 04:59 | XMS_ITS | Encounter Summary ---
Author Organization [employer] Address [address] [place] [address] Care Team Providers Care Benefits Representative Name Role Phone Herb Herman MD Primary Care Provider [phone] Herb Herman MD Unavailable Trent Qureshi MD Unavailable [phone] Sammy Villa MD Unavailable [phone] Encounter Details Date Type Department Care [...] Answer Date Recorded PHQ-2 Score 6 10/08/2024 [facility] - Occupational Stress Questionnaire [...] AM CDT Legal Sex Female 3:11 AM SLIP SHEETER Gender Identity Female 01/16/2019 8:38 AM CDT Sexual Orientation Choose not to disclose 2021 11:32 AM SLIP SHEETER 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 file documented as of this encounter Plan of Treatment Upcoming Encounters Date Type Department Care Team (Late st Contact Info) Description 11/14/2024 10:30 AM CDT Office Visit [address] [address] [place]b Herman [place] [address] [place] [address] documented as of this encounter Visit Diagnoses Not on filedocumented in this encounter Additional Health Concerns Assessment Noted Time PHQ-9 Depression Total Score: 22 10/08/2 025 3:11 PM CDT documented as of this encounter Care Teams Benefits Representative Relationship Specialty [place] [address] [place] [address] PCP - General Family Medicine 12/24/20 [place] [address] [place] [address] Assigned PCP 01/04/21 Trent Qureshi MD [facility] [address] [place] [address] Orthopaedic Surgery 09/16/21 Sammy Villa MD [address] [place] [address] 96 [place], [place] 482125 Assigned Neuroscience Provider 10/01/24 documented as of this encounter
--- OUTSIDE RECORDS SUMMARY | 2024-10-26 04:59 | XMS_ITS | Encounter Summary ---
Author Organization [place] Address [address] [place] [address] Care Team Providers Care Job Lithographer Name Role Phone Herb Herman MD Primary Care Provider Herb Herman MD Unavailable Stan Barnes MD Unavailable [phone] Trent Qureshi MD Unavailable [phone] Sammy Villa MD Unavailable [phone] Encounter Details Date Type Department Care Team (Late st Contact Info) Description 07/16/2022 [facility] Medical Advice [address] [address] Diane Moreno RN Social History [...] Answer Date Recorded PHQ-2 Score 0 03/08/2022 [facility] Occupat ional [facility] - Occupational Stress Questionnaire Answer Date [...] AM CDT Legal Sex Female 3:11 AM PI/SENIOR RESEARCH ASSOCIATE Gender Identity Female 01/16/2019 8:38 AM CDT Sexual Orientation Choose not to disclose 2021 11:32 AM PI/SENIOR RESEARCH ASSOCIATE Occupation Industry Job Start Date Job [...] Description 11/14/2024 10:30 AM CDT Office Visit [facility] [address] [place] [address] [place] [address] [place] [address] documented as of this encounter Visit Diagnoses Not on filedocumented in this encounter Additional Health Concerns Assessment Noted Time PHQ-9 Depression Total Score: 0 03/08/20 22 10:26 AM PI/SENIOR RESEARCH ASSOCIATE documented as of this encounter Care Teams Job Lithographer Relationship Specialty [place] [address] [place] [address] PCP - General Family Medicine 12/24/20 [place] [address] [place] [address] Assigned PCP 01/04/21 Stan Barnes MD [address] [place] [address] Assigned Surgical Provider 08/30/21 08/31/23 Trent Qureshi MD [facility] [address] [place] [address] Orthopaedic Surgery 09/16/21 Sammy Villa MD [address] [place] [address] Assigned Neuroscience Provider 10/01/24 documented as of this encounter
--- OUTSIDE RECORDS SUMMARY | 2024-10-26 04:59 | XMS_ITS | Encounter Summary ---
Author Organization [place] Address [facility] [place] [address] Care Team Providers Care Web Site Designer Name Role Phone Herb Herman MD Primary Care Provider Herb Herman MD Unavailable Stan Barnes MD Unavailable [phone] Trent Qureshi MD Unavailable [phone] Sammy Villa MD Unavailable [phone] Reason for Visit * Reason Onset Date Comments MyChart Communication 07/14/2022 Encounter Details Date Type Department Care Team (Latest Contact Info) Description 07/14/2022 MyC Medical Advice [facility] [address] [place] [address] [place] [address] [place] [address] MyChart Communication Social History Tobacco [...] How often do you attend chur or adventist services? More than 4 times [...] Answer Date Recorded PHQ-2 Score 0 03/08/2022 [facility] of Occupat ional [facility] - Occupational Stress Questionnaire Answer Date [...] AM CDT Legal Sex Female 3:11 AM PETROLEUM PRODUCTION ENGINEER Gender Identity Female 01/16/2019 8:38 AM CDT Sexual Orientation Choose not to disclose 2021 11:32 AM PETROLEUM PRODUCTION ENGINEER Occupation Industry Job Start Date Job End [...] Bueno RN - 07/14/2022 10:04 AM CDT TapTrack message sent to patient, reply requested. [place] Bueno R.N. documented in this encounter Plan of Treatment Upcoming Encounters Date Type Department Care Team (Late st Contact Info) Description 11/14/2024 10:30 AM CDT Office Visit [facility] [address] [place] [address] [place] [address] [place] [address] documented as of this encounter Visit Diagnoses Not on filedocumented in this encounter Additional Health Concerns Assessment Noted Time PHQ-9 Depression Total Score: 0 03/08/20 10:26 AM PETROLEUM PRODUCTION ENGINEER documented as of this encounter Care Teams Web Site Designer Relationship Specialty [place] [address] [place] [address] PCP - General Family Medicine 12/24/20 [place] [address] [place] [address] Assigned PCP 01/04/21 Stan Barnes MD [address] [place] [address] [id number] Assigned Surgical Provider 08/30/21 08/31/23 Trent Qureshi MD [facility] [address] [place] [address] 878935 Orthopaedic Surgery 09/16/21 Sammy Villa MD [address] [place] [address] Assigned Neuroscience Provider 10/01/24 documented as of this encounter
--- OUTSIDE RECORDS SUMMARY | 2024-10-26 05:00 | XMS_ITS | Encounter Summary ---
Author Organization [place] Address [address] [place] [address] Care Team Providers Care Soft Sugar Operator Head Name Role Phone Daniel Plaza MD Primary Care Provider Daniel Plaza MD Unavailable [phone] Stan Barnes MD Unavailable [phone] Herb Herman MD Primary Care Provider [phone] Herb Herman MD Unavailable Stan Barnes MD Unavailable [phone] Trent Qureshi MD Unavailable [phone] Sammy Villa MD Unavailable Encounter Details Date Type Department Care Team (Late st Contact Info) Description 12/21/2018 [facility] [address] [place] [address] 5th [place] [address] Stan Barnes MD [address] [place] [address] Social History Tobacco Use Types Packs/Day Years Used Date Smoking Tobacco: Never Smokeless Tobacco: Never Alcohol Use Standard Drinks/Week Comments No 0 (1 standard drink = 0.6 oz pur e alcohol) PHQ-2 Answer Date Recorded PHQ-2 Score 0 04/18/2018 Comments No Sex and Gender Information Value Date Recorded Sex Assigned at Female 01/16/2019 8:38 AM CDT Legal Sex Female 3:11 AM RETANNER Gender Identity Female 01/16/2019 8:38 AM CDT Sexual Orientation Choose not to disclose 2021 11:32 AM RETANNER documented as of this encounter Plan of Treatment Upcoming Encounters Date Type Department Care Team (Late st Contact Info) Description 11/14/2024 10:30 AM CDT Office Visit [facility] [address] [place] [address] [place] [address] [place] [address] documented as of this encounter Visit Diagnoses Not on filedocumented in this encounter Additional Health Concerns Assessment Noted Time PHQ-9 Depression Total Score: 0 11/24/19 19 11:34 AM CDT documented as of this encounter Care Teams Soft Sugar Operator Head Relationship Specialty Start Date End Date Daniel Plaza MD [address] [place] [phone] PCP - General 06/29/10 12/23/20 [place] [address] [place] [address] PCP - General Family Medicine 12/24/20 Daniel Plaza MD [address] [place] [phone] Assigned PCP 01/13/12 01/03/21 Stan Barnes MD 9 [place] [address] Assigned Surgical Provider 02/01/20 07/19/20 [place] [address] [place] [address] Assigned PCP 01/04/21 Stan Barnes MD [address] [place] [address] 037675 Assigned Surgical Provider 08/30/21 08/31/23 Trent Qureshi MD [facility] [address] [place] [address] 498315 Orthopaedic Surgery 09/16/21 Sammy Villa MD 420 [facility] 96 [place], [place] [address] Assigned Neuroscience Provider 10/01/24 documented as of this encounter
--- OUTSIDE RECORDS SUMMARY | 2024-10-26 05:00 | XMS_ITS | Encounter Summary ---
Author Organization [place] Address [address] [place] [address] Care Team Providers Care Library Media Specialist Name Role Phone Daniel Plaza MD Primary Care Provider Daniel Plaza MD Unavailable Daniel Plaza MD Unavailable [phone] Stan Barnes MD Unavailable [phone] Herb Herman MD Primary Care Provider Herb Herman MD Unavailable Stan Barnes MD Unavailable [phone] Trent Qureshi MD Unavailable [phone] Sammy Villa MD Unavailable [phone] Reason for Visit * Reason Onset Date Comments Sinus Problem 04/06/2017 Encounter Details Date Type Department Care Team (Late st Contact Info) Description 04/06/2017 MyC Medical Advice [facility] [address] [address] Daniel Plaza MD [address] [address] Sinus Problem Social History Tobacco Use Types Packs/Day Years Used Date Smoking Tobacco: Never Smokeless Tobacco: Never Alcohol Use Standard Drinks/Week Comments No 0 (1 standard drink = 0.6 oz pur e alcohol) Comments No Sex and Gender Information Value Date Recorded Sex Assigned at Female 01/16/2019 8:38 AM CDT Legal Sex Female 3:11 AM GO CART MECHANIC Gender Identity Female 01/16/2019 8:38 AM CDT Sexual Orientation Choose not to disclose 2021 11:32 AM GO CART MECHANIC documented as of this encounter Plan of Treatment Upcoming Encounters Date Type Department Care Team (Late st Contact Info) Description 11/14/2024 10:30 AM CDT Office Visit [facility] [address] [place] [address] [place] [address] [place] [address] documented as of this encounter Visit Diagnoses Diagnosis Acute sinusitis with symptoms > 10 days- Primary Acute sinusitis, unspecified documented in this encounter Additional Health Concerns Assessment Noted Time PHQ-9 Depression Total Score: 0 12/23/19 16 7:14 AM CDT documented as of this encounter Care Teams Library Media Specialist Relationship Specialty Start Date End Date Daniel Plaza MD [address] [place] [phone] PCP - General 06/29/10 12/23/20 Daniel Plaza MD [address] [place] [address] PCP - Assigned PCP 02/05/08 06/13/18 [place] [address] [place] [address] PCP - General Family Medicine 12/24/20 Daniel Plaza MD [address] [place] [phone] Assigned PCP 01/13/12 01/03/21 Stan Barnes MD [address] [place] [address] Assigned Surgical Provider 02/01/20 07/19/20 [place] [address] [place] [address] Assigned PCP 01/04/21 Stan Barnes MD [address] [place] [address] Assigned Surgical Provider 08/30/21 08/31/23 Trent Qureshi MD [facility] [address] [place] [address] Orthopaedic Surgery 09/16/21 Sammy Villa MD [address] [place] [address] 96 [place] [address] Assigned Neuroscience Provider 10/01/24 documented as of this encounter
--- OUTSIDE RECORDS SUMMARY | 2024-10-26 05:00 | XMS_ITS | Encounter Summary ---
Author Organization [place] Address [address] [place] [address]. [place] [address] Care Team Providers Care Fitness Assistant Name Role Phone Herb Herman MD Primary Care Provider Herb Herman MD Unavailable Trent Qureshi MD Unavailable [phone] Reason for Visit * Reason Onset Date Comments Procedure 09/20/2024 L3-4 or L4-5 Int erlaminar ARTHUR Encounter Details Date Type Department Care Team (Late st Contact Info) Description 09/20/2024 [facility] [address] [place] [address] Pain Management Program, [facility] Procedure (L3-4 or L4-5 Interlaminar ARTHUR) Social [...] week 06/08/2021 How often do you attend [facility] or adventism services? 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 [facility] If choosing [facility] for location, please inform patient: [facility] is a Hospital based clinic. Before your visit, you should check with your insurance about how it covers the charges for facility services in a hospital-based clinic.?? Procedure ordered by Dr. Villa Procedure ordered? L3-4 or L4-5 Interlaminar ARTHUR Transforaminal Cervical ARTHUR - Send to [facility] - No Community Site providers perform this procedure What insurance would patient like us to bill for this procedure? Medicare/Medica IF SCHEDULING IN [place] PAIN OR SPINE PLEASE SCHEDULE AT LEAST [...] to Marcy Lees Is patient scheduled at [facility]? No If YES, route every encounter to [facility] CARE NAVIGATION POOL [[phone]] Is an lang interpreter needed? No Patient has a straddle bug driver home? (Review Grid) YES: ok Any chance of ? NO If YES, do NOT schedule and route to pool player - Dr. Delgado route to PM&R Nurse [[id number]] Is patient actively being treated for cancer or immunocompromised? No If YES, do NOT schedule and route to pool player/ Dr. Delgado's Team Does the patient have a bleeding or clotting disorder? No If YES, okay to schedule AND route to RN nurse / Dr. Delgado's Team (For any patients with platelet count <100, RN must forward to provider) Is patient taking any Blood Thinners OR Antiplatelet medication? No If hold needed, do NOT schedule, route to pool player/ Dr. Delgado's Team Examples: Blood Thinners: (Coumadin, Warfarin, Jantoven, Pradaxa, Xarelto, Eliquis, Edoxaban, Enoxaparin, Lovenox, Heparin, Arixtra, Fondaparinux or Fragmin) Antiplatelet Medications: (Plavix, Brilinta or Effient) Is patient taking any aspirin products (includes: Aspirin 81 mg, Excedrin, and Fiorinal)? No. If yes route to pool player/ Dr. Delgado's Team - Do not schedule [...] appointment notes AND route to the pool player/ Dr. Delgado's Team If ARTHUR and Contrast Dye / Iodine Allergy? DO NOT SCHEDULE, route to pool player/ Dr. Delgado's Team Allergies: Morphine, Doxycycline, Atorvastatin, [...] Orders Needed Please send all injections to watch repair technician Not Applicable Red Flags? Not Applicable Does the patient have any questions? NO Renetta Castano [facility] * Addendum Note - Destiny Velazquez RN - 09/20/2024 2:37 PM CDTAddended by: DESTINY VELAZQUEZ on: 09/21/2024 12:19 PM Modules accepted: Orders documented in this encounter Plan of Treatment Upcoming Encounters Date Type Department Care Team (Late st Contact Info) Description 11/14/2024 10:30 AM CDT Office Visit [facility] [address] [place] [phone] [place] [address] [place] [address] documented as of this encounter Visit Diagnoses Diagnosis Lumbar radiculopathy- Primary Thoracic or lumbosacral neuritis or radiculitis, unspecified documented in this encounter Additional Health Concerns Assessment Noted Time PHQ-9 Depression Total Score: 0 05/02/19 25 10:13 AM HAND RIGGER documented as of this encounter Care Teams Fitness Assistant Relationship Specialty [place] [address] [place] [address] PCP - General Family Medicine 12/24/20 [place] [address] [place] [address] Assigned PCP 01/04/21 Trent Qureshi MD [facility] [address] [place] [address] Orthopaedic Surgery 09/16/21 documented as of this encounter
--- OUTSIDE RECORDS SUMMARY | 2024-10-26 05:00 | XMS_ITS | Encounter Summary ---
Author Organization [place] Address [address] [place] [address] Care Team Providers Care Under Cutting Machine Operator Name Role Phone Daniel Plaza MD Primary Care Provider Daniel Plaza MD Unavailable Daniel Plaza MD Unavailable [phone] Stan Barnes MD Unavailable [phone] Herb Herman MD Primary Care Provider [phone] Herb Herman MD Unavailable Stan Barnes MD Unavailable [phone] Trent Qureshi MD Unavailable [phone] Sammy Villa MD Unavailable Encounter Details Date Type Department Care Team (Late st Contact Info) Description 02/28/2008 MyC Medical Advice [facility] [address] [address] Daniel Plaza MD [address] [phone] Social History Tobacco Use Types Packs/Day Years Used Date Smoking Tobacco: Never Alcohol Use Standard Drinks/Week Comments Yes 0 (1 standard drink = 0.6 oz pur e alcohol) social Comments No Sex and Gender Information Value Date Recorded Sex Assigned at Female 01/16/2019 8:38 AM CDT Legal Sex Female 3:11 AM RELIGION DEPARTMENT CHAIR Gender Identity Female 01/16/2019 8:38 AM CDT Sexual Orientation Choose not to disclose 2021 11:32 AM RELIGION DEPARTMENT CHAIR documented as of this encounter Plan of Treatment Upcoming Encounters Date Type Department Care Team (Late st Contact Info) Description 11/14/2024 10:30 AM CDT Office Visit [facility] [address] [place] [address] [place] [address] [place] [address] documented as of this encounter Visit Diagnoses Not on filedocumented in this encounter Care Teams Under Cutting Machine Operator Relationship Specialty Start Date End Date aDniel Plaza MD [address] [place] [phone] PCP - General 06/29/10 12/23/20 Daniel Plaza MD [address] [place] [address] PCP - Assigned PCP 02/05/08 06/13/18 [place] [address] [place] [address] PCP - General Family Medicine 12/24/20 Daniel Plaza MD [address] [place] [phone] Assigned PCP 01/13/12 01/03/21 Stan Barnes MD 909 [place] [address] Assigned Surgical Provider 02/01/20 07/19/20 [place] [address] [place] [address] Assigned PCP 01/04/21 Stan Barnes MD [address] [place] [address] Assigned Surgical Provider 08/30/21 08/31/23 Trent Qureshi MD [facility] [address] [place] [address] Orthopaedic Surgery 09/16/21 Sammy Villa MD [address] [place] [address] Assigned Neuroscience Provider 10/01/24 documented as of this encounter
--- OUTSIDE RECORDS SUMMARY | 2024-10-26 05:00 | XMS_ITS | Encounter Summary ---
Author Organization [place] Address [address] [place] [address] Care Team Providers Care Grounds Maintenance Worker Name Role Phone Herb Herman MD Primary Care Provider Herb Herman MD Unavailable Stan Barnes MD Unavailable [phone] Trent Qureshi MD Unavailable [phone] Sammy Villa MD Unavailable [phone] Encounter Details Date Type Department Care Team (Late st Contact Info) Description 06/27/2023 MyC Medical Advice [address] [address] Soraya Hutchinson CMA Social History [...] How often do you attend [facility] or restorationist services? More than 4 [...] Recorded PHQ-2 Score 0 05/02/2023 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 file documented as of this encounter Plan of Treatment Upcoming Encounters Date Type Department Care Team (Late st Contact Info) Description 11/14/2024 10:30 AM CDT Office Visit [address] [address] [place] [address] [place] [address] documented as of this encounter Visit Diagnoses Not on filedocumented in this encounter Additional Health Concerns Assessment Noted Time PHQ-9 Depression Total Score: 0 05/02/19 24 10:52 AM TUBE BACKER documented as of this encounter Care Teams Grounds Maintenance Worker Relationship Specialty [place] [address] [place] [address] PCP - General Family Medicine 12/24/20 [place] [address] [place] [address] Assigned PCP 01/04/21 Stan Barnes MD [address] [place] [address] Assigned Surgical Provider 08/30/21 08/31/23 Trent Qureshi MD [facility] [address] [place] [address] Orthopaedic Surgery 09/16/21 Sammy Villa MD [address] [place] [address] 96 [place] [address] Assigned Neuroscience Provider 10/01/24 documented as of this encounter
--- OUTSIDE RECORDS SUMMARY | 2024-10-26 05:00 | XMS_ITS | Encounter Summary ---
Author Organization [place] Address [address] [place] [address]. [place] [address] Care Team Providers Care Burn Center Nurse Name Role Phone Herb Herman MD Primary Care Provider Herb Herman MD Unavailable Stan Barnes MD Unavailable [phone] Trent Qureshi MD Unavailable [phone] Sammy Villa MD Unavailable [phone] Encounter Details Date Type Department Care Team (Late st Contact Info) Description 06/29/2021 MyC Medical Advice [facility] [address] [place] [address] [place] [address] [place] [address] Social History Tobacco Use Types [...] often do you attend chur ch or religion services? More than 4 times [...] Answer Date Recorded PHQ-2 Score 0 06/24/2021 [facility] [...] AM CDT Legal Sex Female 3:11 AM CHIEF ENGINEERING DIVISION Gender Identity Female 01/16/2019 8:38 AM CDT Sexual Orientation Choose not to disclose 2021 11:32 AM CHIEF ENGINEERING DIVISION COVID-19 Exposure Response Date Recorded In the last month, have you been in contact with someone who was confirmed or suspected to have Coronavirus / COVID-19? No / Unsure 06/24/2021 10:22 AM CDT documented as of this encounter Plan of Treatment Upcoming Encounters Date Type Department Care Team (Late st Contact Info) Description 11/14/2024 10:30 AM CDT Office Visit [address] [address] [place] [address] [place] [address] documented as of this encounter Visit Diagnoses Not on filedocumented in this encounter Additional Health Concerns Assessment Noted Time PHQ-9 Depression Total Score: 0 06/10/19 22 7:01 AM CHIEF ENGINEERING DIVISION documented as of this encounter Care Teams Burn Center Nurse Relationship Specialty [place] [address] [place] [address] PCP - General Family Medicine 12/24/20 [place] [address] [place] [address] Assigned PCP 01/04/21 Stan Barnes MD [address] [place] [address] Assigned Surgical Provider 08/30/21 08/31/23 Trent Qureshi MD [facility] [address] [place] [address] Orthopaedic Surgery 09/16/21 Sammy Villa MD [address] [place] [address] 96 [place] [address] Assigned Neuroscience Provider 10/01/24 documented as of this encounter
--- OUTSIDE RECORDS SUMMARY | 2024-10-26 05:00 | XMS_ITS | Encounter Summary ---
Author Organization [place] Address [address] [place] [address]. [place] [address] Care Team Providers Care Engineering Group Manager Name Role Phone Herb Herman MD Primary Care Provider Herb Herman MD Unavailable Stan Barnes MD Unavailable [phone] Trent Qureshi MD Unavailable [phone] Sammy Villa MD Unavailable Reason for Visit * Reason Onset Date Comments Medication Request 07/13/2021 Encounter Details Date Type Department Care Team (Late st Contact Info) Description 07/13/2021 MyC Medical Advice [facility] [address] [place] [address] [place] [id number] [place] [address] Medication Request Social History Tobacco Use [...] Answer Date Recorded PHQ-2 Score 0 06/24/2021 [facility] - [...] AM CDT Legal Sex Female 3:11 AM WELDING TESTER Gender Identity Female 01/16/2019 8:38 AM CDT Sexual Orientation Choose not to disclose 2021 11:32 AM WELDING TESTER Occupation Industry Job Start Date Job [...] Description 11/14/2024 10:30 AM CDT Office Visit [facility] [address] [place] [address] [place] [address] [place] [address] documented as of this encounter Visit Diagnoses Diagnosis Other chronic pain- Primary documented in this encounter Additional Health Concerns Assessment Noted Time PHQ-9 Depression Total Score: 0 06/10/19 22 7:01 AM WELDING TESTER documented as of this encounter Care Teams Engineering Group Manager Relationship Specialty [place] [address] [place] [address] PCP - General Family Medicine 12/24/20 [place] [address] [place] [address] Assigned PCP 01/04/21 Stan Barnes MD [address] [place] [address] Assigned Surgical Provider 08/30/21 08/31/23 Trent Qureshi MD [facility] [address] [place] [address] 249045 Orthopaedic Surgery 09/16/21 Sammy Villa MD [address] [place] [address] Assigned Neuroscience Provider 10/01/24 documented as of this encounter
--- OUTSIDE RECORDS SUMMARY | 2024-10-26 05:00 | XMS_ITS | Encounter Summary ---
Author Organization [place] Address [address] [place] [address] Care Team Providers Care Mechanical Planner Name Role Phone Herb Herman MD Primary Care Provider [phone] Herb Herman MD Unavailable Stan Barnes MD Unavailable [phone] Trent Qureshi MD Unavailable [phone] Sammy Villa MD Unavailable [phone] Encounter Details Date Type Department Care Team (Late st Contact Info) Description 04/18/2023 MyC Medical Advice [address] [address] Brooke Barnes Social History Tobacco [...] 06/08/2021 How often do you attend [facility] or yazidi services? 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 file documented as of this encounter Plan of Treatment Upcoming Encounters Date Type Department Care Team (Late st Contact Info) Description 11/14/2024 10:30 AM CDT Office Visit [address] [address] [place] [address] [place] [address] documented as of this encounter Visit Diagnoses Not on filedocumented in this encounter Additional Health Concerns Assessment Noted Time PHQ-9 Depression Total Score: 1 08/03/19 23 1:10 PM CDT documented as of this encounter Care Teams Mechanical Planner Relationship Specialty [place] [address] [place] [address] PCP - General Family Medicine 12/24/20 [place] [address] [place] [address] Assigned PCP 01/04/21 Stan Barnes MD [address] [place] [address] Assigned Surgical Provider 08/30/21 08/31/23 Trent Qureshi MD [facility] [address] [address] Orthopaedic Surgery 09/16/21 Sammy Villa MD [address] [place] [address] 96 [place] [address] Assigned Neuroscience Provider 10/01/24 documented as of this encounter
--- OUTSIDE RECORDS SUMMARY | 2024-10-26 05:00 | XMS_ITS | Referral Summary ---
Author Organization [facility] Address [address] [place] [address] Care Team Providers Care Lead Simulation Modeling Engineer Name Role Phone Herb Herman MD Primary Care Provider [phone] Encounters Date Type Department Care Team Description 10/18/2024 2:00 PM CDT Office Visit [facility] [address] [place] [address] Felisha Perez APRN, NIKKIE Speech [...] (10/18/2024): Seen incidentally on CT done at [place] Major depression 12/22/2015 Spinal stenosis of lumbar [...] Plan of Treatment Not on file Insurance [employer] Care Teams Lead Simulation Modeling Engineer Relationship Specialty [place] [address] [place] [address] PCP - General Family Medicine - 10/18/24
--- OUTSIDE RECORDS SUMMARY | 2024-10-26 05:00 | XMS_ITS | Encounter Summary ---
Author Organization [place] Address [address] [place] [address]. [place] [address] Care Team Providers Care Crusher Machine Operator Name Role Phone Herb Herman MD Primary Care Provider Herb Herman MD Unavailable Trent Qureshi MD Unavailable [phone] Reason for Visit * Reason Comments Medication Refill Encounter Details Date Type Department Care Team (Late st Contact Info) Description 09/23/[address] [address] [place] [address] [place] [address] Medication Refill Social History Tobacco [...] week 06/08/2021 How often do you attend [facility] or confucianist services? More than 4 times per year 06/08/2021 Do you belong to any clubs o r organizations such as moravian groups, unions, fraternal or athletic groups, or [...] Answer Date Recorded PHQ-2 Score 0 05/02/2024 [facility] - Occupational [...] AM CDT Legal Sex Female 3:11 AM BLOOD BANK LABORATORY PROFESSIONAL Gender Identity Female 01/16/2019 8:38 AM CDT Sexual Orientation Choose not to disclose 2021 11:32 AM BLOOD BANK LABORATORY PROFESSIONAL Occupation Industry Job Start Date Job [...] CDT Office Visit [facility] [address] [place] [address] [place] [address] [place] [address] documented as of this encounter Visit Diagnoses Diagnosis Arthritis Arthropathy, unspecified, site unspecified documented in this encounter Additional Health Concerns Assessment Noted Time PHQ-9 Depression Total Score: 0 05/02/19 25 10:13 AM BLOOD BANK LABORATORY PROFESSIONAL documented as of this encounter Care Teams Crusher Machine Operator Relationship Specialty [place] [address] [place] [address] PCP - General Family Medicine 12/24/20 [place] [address] [place] [address] Assigned PCP 01/04/21 Trent Qureshi MD [facility] [address] [place] [address] Orthopaedic Surgery 09/16/21 documented as of this encounter
--- OUTSIDE RECORDS SUMMARY | 2024-10-26 05:00 | XMS_ITS | Encounter Summary ---
Author Organization [facility] Address [address] [place] [address]. [place] [address] Care Team Providers Care Passenger Service Representative Name Role Phone Herb Herman MD Primary Care Provider [phone] Herb Herman MD Unavailable Trent Qureshi MD Unavailable [phone] Sammy Villa MD Unavailable [phone] Encounter Details Date Type Department Care Team (Late st Contact Info) Description 09/19/2024 [facility] Medical Advice 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 file documented as of this encounter Plan of Treatment Upcoming Encounters Date Type Department Care Team (Late st Contact Info) Description 11/14/2024 10:30 AM CDT Office Visit [facility] [address] [place] [address] [place] [address] [place] [address] documented as of this encounter Visit Diagnoses Not on filedocumented in this encounter Additional Health Concerns Assessment Noted Time PHQ-9 Depression Total Score: 0 05/02/19 25 10:13 AM BACKGROUND INVESTIGATOR documented as of this encounter Care Teams Passenger Service Representative Relationship Specialty [place] [address] [place] [address] PCP - General Family Medicine 12/24/20 [place] [address] [place] [address] Assigned PCP 01/04/21 Trent Qureshi MD [facility] [address] [place] [id number] Orthopaedic Surgery 09/16/21 Sammy Villa MD [address] [place] [address] Assigned Neuroscience Provider 10/01/24 documented as of this encounter
--- OUTSIDE RECORDS SUMMARY | 2024-10-26 05:00 | XMS_ITS | Encounter Summary ---
Author Organization [facility] Address [address] [place] [address] Care Team Providers Care Rivet Machine Operator Name Role Phone Herb Herman MD Primary Care Provider [phone] Herb Herman MD Unavailable Trent Qureshi MD Unavailable [phone] Encounter Details Date Type Department Care Team (Late st Contact Info) Description 09/10/2024 Medical Correspondence [facility] Health Information Management [address] [place] [address] Scan, Non-Provider Social History Tobacco Use Types [...] CDT Legal Sex Female 3:11 AM MACHINE SNELLER Gender Identity Female 01/16/2019 8:38 AM CDT Sexual Orientation Choose not to disclose 2021 11:32 AM MACHINE SNELLER 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 file documented as of this encounter Plan of Treatment Upcoming Encounters Date Type Department Care Team (Late st Contact Info) Description 11/14/2024 10:30 AM CDT Office Visit [facility] [address] [place] [address] [place] [address] [place] [address] documented as of this encounter Visit Diagnoses Not on filedocumented in this encounter Additional Health Concerns Assessment Noted Time PHQ-9 Depression Total Score: 0 05/02/19 25 10:13 AM MACHINE SNELLER documented as of this encounter Care Teams Rivet Machine Operator Relationship Specialty [place] [address] [place] [address] PCP - General Family Medicine 12/24/20 [place] [address] [place] [address] Assigned PCP 01/04/21 Trent Qureshi MD [facility] [address] [place] [address] Orthopaedic Surgery 09/16/21 documented as of this encounter
--- OUTSIDE RECORDS SUMMARY | 2024-10-26 05:00 | XMS_ITS | Clinical Summary ---
Author Organization [place] Address [address] [place] [address] Care Team Providers Care Hook And Eye Machine Operator Name Role Phone Herb Herman MD Primary Care Provider [phone] Herb Herman MD Unavailable Trent Qureshi MD Unavailable [phone] [facility] Unavailable Allergies Active [...] tablet 3 025 Active vitamin D2 (ERGOCALCIFEROL) 94364 units (1250 mcg) capsuleIndication s:Type 2 diabetes [...] 1 tablet by mouth daily. 025 Active lisinopril-hydroc hlorothiazide (ZESTORETIC) 20-25 MG tabletIndications :Essential hypertension Take 1 tablet by mouth daily. 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 03/01/2011 Full code 03/08/2011 Health Custodial 12/15/2010 09/26/2023 Overview (07/17/2012): X DX V65.8 REPLACED WITH 83086 HEALTH JAIL (07/17/2012) Major 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 11/05/2004 05/03/2023 Encounters Date Type Department Care Team Description 10/24/2024 MyC Medical Advice [facility] Neurology [address], [address] [place] [address] Ana Larsen RN 10/08/2024 3:30 PM CDT Office Visit [facility] [address] [place] [address] Herb Herman MD TIA (transient ischemic attack) (Primary Dx); Chronic kidney disease, stage 3a (H); Hyperlipidemia LDL goal <100; Essential hypertension; Adjustment disorder with anxious mood 10/08/2024 Travel 09/26/2024 10:15 AM CDT Radiology Injection Office Visit [facility] [place] [address] [place] [address] [address] [place] [address] Sammy Villa MD Burton, Annie L, MD Lumbar radiculopathy (Primary Dx); Lumbar stenosis with neurogenic claudication 09/26/2024 Travel 09/23/2024 Refill [facility] [address] [place] [address] Herb Herman MD Medication Refill 09/20/2024 Telephone [facility] [place] [address] [facility] [address] [place] [address] Pain Management Program, [facility] Procedure (L3-4 or L4-5 Interlaminar ARTHUR) 09/19/2024 2:20 PM CDT Office Visit [facility] Neurosurgery [facility] [address] [place] [address] [address] [place] [phone] Douglas Hernandez MD Helland, Logan C, MD Lumbar stenosis with neurogenic claudication (Primary Dx); Chronic bilateral low back pain with bilateral sciatica 09/19/2024 MyC Medical Advice [facility] [address], [address] [place] [address] Ana Larsen RN 09/19/2024 Travel 09/19/2024 PRE VISIT [facility] Neurosurgery [facility] [address] [facility] [address] [place] [phone] Sammy Villa MD Previsit 09/11/2024 Transcribe Orders GENERIC EXTERNAL DATA DEPARTMENT Douglas Hernandez MD Low back pain (Primary Dx) 09/10/2024 12:05 AM CDT Ancillary Procedure [facility] External Imaging [address] [place] [phone] Non-Fv Credentialed Provider, Radiology 09/10/2024 Ancillary Procedure [facility] [address] [place] [phone] Non-Fv Credentialed Provider, Radiology 09/10/2024 Medical Correspondence [facility] Health Information Management [address] [place] [address] [address] [place] [address] Scan, Non-Provider from Last 3 Months Immunizations [...] Liver C.A.D. Paternal Grandfather Musculoskeletal Disorder Sister fibromy algia Relation Status Comments Brother 1 Alive Brother 2 Alive Father Mother Paternal Grandfather [place] Sister Alive lashanda knee replace ments Son [...] any clubs o r organizations such as adventist groups, unions, fraternal or athletic groups, or [...] Answer Date Recorded PHQ-2 Score 6 10/08/2024 [facility] Questionnaire Answer Date [...] AM CDT Legal Sex Female 3:11 AM EXCHANGE OPERATOR Gender Identity Female 01/16/2019 8:38 AM CDT Sexual Orientation Choose not to disclose 2021 11:32 AM EXCHANGE OPERATOR Occupation Industry Job Start Date Job [...] Description 11/14/2024 10:30 AM CDT Office Visit [facility] [address] [place] [phone] [place] [address] [place] [address] Health Maintenance Due Date Last Done Comments DEPRESSION ACTION PLAN 1945 URINALYSIS 10/18/1946 ZOSTER VACCINE (1 of 2) 10/18/1997 DTAP/TDAP/TD VACCINE (2 - Td or Tdap) 02/19/2020 02/18/2010 DEXA 07/21/2022 07/21/2017, 03/11, 07/27/2006, Additional history exists RSV VACCINE (1 - 1-dose 75+ series) 10/18/2022 HEMOGLOBIN 01/18/2023 01/18/2022, 10/12/2021, 01/16/2022, Additional history exists DIABETIC FOOT EXAM [...] (Cologuard) Discontinued Medical Devices Implanted Type Area Call Center Recruiter Device Identifier Shelf Expiration Date Model / Serial / Lot Imp Scr Zim 6.5x30mm Acet Cup Self Tap [id number] - [id number] Implanted:Qty : 1 on 09/21/2021 by Anderson George MD at [facility] Metallic Hardware/Anc hor Right: Hip [employer] 06/19/2031-065- 30 / / [id number] Imp Scr Zim 6.5x30mm Acet Cup Self Tap [id number] - [id number] Implanted:Qty : 1 on 12/21/2021 by Anderson George MD at [facility] Metallic Hardware/Anc hor Left: Hip [employer] 06/19/203102-9888-180- 30 / / [id number] Imp Shell Biom G7 Acetab Pps Billy Hole 52mm Sz E [id number] - [id number] Implanted:Qty : 1 on 09/21/2021 by Anderson George MD at [facility] Total Joint Component/In sert Right: Hip [employer] 07/10/2031 [id number] / / [id number] Liner Actb G7 E 36mm Lngvt Hip Strl Lum Lf [id number] - [id number] Implanted:Qty : 1 on 09/21/2021 by Anderson George MD at [facility] Total Joint Component/In sert Right: Hip [employer] 12/16/[id number] / / [id number] Imp Stem Femoral Biom Echo Std Offset [id number] - [id number] Implanted:Qty : 1 on 09/21/2021 by Anderson George MD at [facility] Total Joint Component/In sert Right: Hip [employer] 01/16/2031 [id number] / / [id number] Head Fem -3mm Ofst 36mm Hip Actb Mdlr Ty 1 Blx D -[id number] - [id number] Implanted:Qty : 1 on 09/21/2021 by Anderson George MD at [facility] Total Joint Component/In sert Right: Hip [employer] 06/23/2031 [id number] / / [id number] Imp Shell Biom G7 Acetab Pps Billy Hole 52mm Sz E [id number] - [id number] Implanted:Qty : 1 on 12/21/2021 by Anderson George MD at [facility] Total Joint Component/In sert Left: Hip [employer] 10/30/2031 [id number] / / [id number] Imp Stem Femoral Biom Echo Std Offset [id number] - [id number] Implanted:Qty : 1 on 12/21/2021 by Anderson George MD at [facility] Total Joint Component/In sert Left: Hip [employer] 08/25/2031 [id number] / / [id number] Liner Actb G7 E 36mm Lngvt Hip Strl Lum Lf [id number] - [id number] Implanted:Qty : 1 on 12/21/2021 by Andesron George MD at [facility] Total Joint Component/In sert Left: Hip [employer] 08/30/2026 / / [id number] Head Fem -3mm Ofst 36mm Hip Actb Mdlr Ty 1 Blx D [id number] - [id number] Implanted:Qty : 1 on 12/21/2021 by Anderson George MD at [facility] Total Joint Component/In sert Left: Hip [employer] 06/30/2031 [id number] / / [id number] Procedures Procedure Name Priority Date/Time Associated Diagnosis [...] FREE T4 REFLEX Add-On 05/02/2024 11:07 AM EXCHANGE OPERATOR Acquired hypothyroidism HEMOGLOBIN A1C Routine 05/02/2024 11:07 AM EXCHANGE OPERATOR Type 2 diabetes mellitus with diabetic neuropathy, [...] C FOOT EXAM Routine 04/27/2013 10:15 AM EXCHANGE OPERATOR Type 2 diabetes, HbA1C goal < 7% [...] from the original result were not included. [facility] - Procedure Note [...] the procedure. Diagnosis: Lumbar spondylosis; Lumbar radiculitis/radiculopathy Associate Producer: Daniel Otto MD Anesthesia: none Indications: Angela [...] 7.1 MRI LUMBAR SPINE was done @ [facility] on 02/15/2024 and was reviewed [...] with free T4 reflex (05/02/2024 11:07 AM EXCHANGE OPERATOR) TSH 1.54 0.30 - 4.20 uIU/mL 05/03/2024 11:22 AM EXCHANGE OPERATOR [facility] Blood BLOOD SPECIMEN / Unknown Venipuncture / Unknown 05/02/2024 11:07 AM EXCHANGE OPERATOR 05/02/2024 11:07 AM EXCHANGE OPERATOR Herb Herman MD LAB - BLOOD ORDERABLES Final Res ult [facility] [address] [place] [address], [facility] * (ABNORMAL) HEMOGLOBIN A1C (05/02/2024 11:07 AM EXCHANGE OPERATOR) Estimated Average Glucose 157(H) <117 mg/dL 05/02/2024 11:12 AM EXCHANGE OPERATOR LABORATORY Hemoglobin A1C 7.1(H) 0.0 - 5.6 % 05/02/2024 11:12 AM EXCHANGE OPERATOR [facility] Comment: Normal <5.7% Prediabetes 5.7-6.4% Diabetes 6.5% or higher Note: Adopted from ADA consensus guidelines. Blood BLOOD SPECIMEN / Unknown Venipuncture / Unknown 05/02/2024 11:07 AM EXCHANGE OPERATOR 05/02/2024 11:07 AM EXCHANGE OPERATOR Herb Herman MD LAB - BLOOD ORDERABLES Final Res ult LABORATORY [facility] [address] [facility] (no room number, 1st floor of clinic) [place] [address], [facility] * Albumin Random Urine Quantitative with [...] control, and institution of therapy with an zylrmltmakd-olpaeopbju-jocriw (TIFFANY) inhibitor (if the patient can tolerate it). Urine MID-STREAM URINE SPECIMEN / Unknown Non-blood Collection / Unknown 08/01/2023 9:56 AM CDT 08/01/2023 9:56 AM CDT us Herb Herman MD LAB - URINE ORDERABLES Final Res ult Performing Organization Address City/[facility]/ZIP Co de Phone Number U LABORATORY [facility] Lab [address] [facility], [address] * ALT (08/01/2023 9:51 AM CDT) ALT 12 0 - 50 U/L 08/01/2023 5:5 4 PM CDT [facility] LAB[facility]ORY Blood BLOOD SPECIMEN / Unknown Venipuncture / Unknown 08/01/2023 9:51 AM CDT 08/01/2023 9:51 AM CDT us Herb Herman MD LAB - BLOOD ORDERABLES Final Res ult Performing Organization Address City/[facility] de Phone Number LABORATORY [facility] Lab [address] [facility], [address] * (ABNORMAL) Basic metabolic panel (Ca, Cl, CO2, Creat, Gluc, K, Na, BUN) (08/01/2023 9:51 AM CDT) Sodium 139 135 - 145 mmol/L 08/01/2023 5:54 PM CDT U LABORATORY Comment:Reference intervals for this test were [...] BLOOD ORDERABLES Final Res ult [facility] LABORATORY [facility] Core Lab [address] [facility], [address] [place] [address], [facility] * MA Screening Digital Bilateral (07/26/2023 [...] cancer screen (FIT) (06/29/2023 9:00 AM CDT) [facility] Occult Blood Screen FIT Negative Negative 07/06/2023 10:59 AM CDT [facility] SPECIAL[facility] CORE/PROT/END O Stool RECTAL CONTENTS / Unknown Non-blood Collection / Unknown 06/29/2023 9:00 AM CDT 07/05/2023 1:19 PM CDT Herb Herman MD LAB - STOOLS ORDERABLES Final Re sult [facility] SPECIALTY CORE/PROT/ENDO [facility] Special[facility] Core/Prot/Endo [address] [facility] [address] [facility], [address] * Eye Exam - HIM Scan (03/11/2023) [facility] RETINOPATHY UNKNOWN Narrative Christina Johnson - 03/11/2023 See encounter dated 05/03/2023 us Patient Reported OTHER Final Result * (ABNORMAL) Lipid panel reflex to direct LDL Non-fasting (08/02/2022 1:42 PM CDT) [facility] Cholesterol 266(H) <200 mg/dL 08/02/2022 5:36 PM [...] Greater than or equal to 220 mg/dL Herb Herman MD LAB - BLOOD ORDERABLES Final Res ult Performing Organization Address City/State/[facility] Co de Phone Number UU LABORATORY [facility] Core Lab [address] [facility], [address] [phone] [phone] * (ABNORMAL) Hemoglobin (01/18/2022 7:30 AM CDT) Hemoglobin 10.0(L) 11.7 - 15.7 g/dL 01/18/2022 7:52 AM CDT LABORATORY Blood STRUCTURE OF LEFT UPPER LIMB / Unknown Venipuncture / Unknown 01/18/2022 7:30 AM CDT 01/18/2022 7:43 AM CDT Anderson George MD LAB - BLOOD ORDERABL ES Final Result LABORATORY [facility] Lab [address], [address] [place] [address], [facility] [phone] * DX Hip/Pelvis/Spine w Lat Fraction Kath (07/21/2017 9:14 AM CDT) Anatomical Region Laterality Modality Dexa Bone Mineral Den sity Narrative 07/25/2017 10:30 AM CDT [facility] [address], [place] [address] 07/21/2017 PATIENT: Angela Lamar CHART: [id number] : 1945 AGE: [age] year old SEX: female REFERRING PROVIDER: Daniel Plaza MD PROCEDURE: Bone density scanning was performed using DXA technology of the lumbar spine and hip. Scanning was performed on a sofatronic scanner. Reporting is completed in the form [...] to another DXA performed on the same sofatronic machine on 03/24 and 07/16. LATERAL VERTEBRAL ASSESSMENT Procedure: Vertebral fracture assessment was performed in the lateral decubitus position using a WiFi Railigy densitometer. Indications for VFA: none listed Confounding [...] established for newborns, infants, and children NR [facility] Blood specimen (specimen) 09/23/2016 6:20 PM CDT 09/23/2016 6:21 PM CDT us aDniel Plaza MD LAB - BLOOD ORDERABLES Final Result Performing Organization Address City/State/[facility] Co de Phone Number [facility] [address] [place] [address] * PHQ-9 DEPRESSION SCREENING ORDER (03/08/2011) us Provider Abstract OTHER Final Result from Last 3 Months or Most Recently Relevant to Health Maintenance Insurance MEDICARE DeepDyve MEDICARE [employer] Advance Directives For more information, please contact: [phone] * Full Code (Latest Code Status on File) Date Activated Date Inactivated Comments 01/16/2022 4:39 PM 01/18/2022 3:15 PM All basic a nd advanced life-sustaining interventions are performed as appropriate Question Answer Comments Code status determined by: Discussion with phil mir/ legal decision maker * Full Code Date [...] patie nt/ legal decision maker Care Teams Hook And Eye Machine Operator Relationship Specialty [place] [address] [place] [address] PCP - General Family Medicine 12/24/20 [place] [address] [place] [address] Assigned PCP 01/04/21 Trent Qureshi MD [facility] [address] [place] [id number] Orthopaedic Surgery 09/16/21 Sammy Villa MD [address] [place] [address] [address] [place] [address] Assigned Neuroscience Provider 10/01/24
--- OUTSIDE RECORDS SUMMARY | 2024-10-26 05:00 | XMS_ITS | Encounter Summary ---
Author Organization [facility] Address [address] [place] [address]. [place] [address] Care Team Providers Care Able Bodied Seaman Name Role Phone Hreb Herman MD Primary Care Provider Herb Herman MD Unavailable Stan Barnes MD Unavailable [phone] Trent Qureshi MD Unavailable [phone] Sammy Villa MD Unavailable Encounter Details Date Type Department Care Team (Late st Contact Info) Description 07/16/2021 MyC Medical Advice [facility] [address] [place] [address] [place] [address] [place] [address] Social History Tobacco Use Types [...] Answer Date Recorded PHQ-2 Score 0 06/24/2021 [facility] [...] AM CDT Legal Sex Female 3:11 AM CRM MARKETING MANAGER Gender Identity Female 01/16/2019 8:38 AM CDT Sexual Orientation Choose not to disclose 2021 11:32 AM CRM MARKETING MANAGER Occupation Industry Job Start Date Job [...] Description 11/14/2024 10:30 AM CDT Office Visit [address] [address] [place] Herman [place] [address] [place] [address] documented as of this encounter Visit Diagnoses Not on filedocumented in this encounter Additional Health Concerns Assessment Noted Time PHQ-9 Depression Total Score: 0 06/10/19 22 7:01 AM CRM MARKETING MANAGER documented as of this encounter Care Teams Able Bodied Seaman Relationship Specialty [place] [address] [place] [address] PCP - General Family Medicine 12/24/20 [place] [address] [place] [address] Assigned PCP 01/04/21 Stan Barnes MD [address] [place] [address] Assigned Surgical Provider 08/30/21 08/31/23 Trent Qureshi MD [facility] [address] [place] [address] Orthopaedic Surgery 09/16/21 Sammy Villa MD [address] [facility] [address] [place] [address] Assigned Neuroscience Provider 10/01/24 documented as of this encounter
--- OUTSIDE RECORDS SUMMARY | 2024-10-26 05:00 | XMS_ITS | Encounter Summary ---
Author Organization [place] Address [address] [place] [address] Care Team Providers Care Circuit Board Inspector Name Role Phone Herb Herman MD Primary Care Provider [phone] Herb Herman MD Unavailable Trent Qureshi MD Unavailable [phone] Encounter Details Date Type Department Care [...] often do you attend chur ch or quaker services? 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 file documented as of this encounter Plan of Treatment Upcoming Encounters Date Type Department Care Team (Late st Contact Info) Description 11/14/2024 10:30 AM CDT Office Visit [facility] [address] [place] [address] [place] [address] [place] [address] documented as of this encounter Visit Diagnoses Not on filedocumented in this encounter Additional Health Concerns Assessment Noted Time PHQ-9 Depression Total Score: 0 05/02/19 25 10:13 AM JORDAN WORKER documented as of this encounter Care Teams Circuit Board Inspector Relationship Specialty [place] [address] [place] [address] PCP - General Family Medicine 12/24/20 [place] [address] [place] [address] Assigned PCP 01/04/21 Trent Qureshi MD [facility] [address] [place] [address] Orthopaedic Surgery 09/16/21 documented as of this encounter
--- OUTSIDE RECORDS SUMMARY | 2024-10-26 05:00 | XMS_ITS | Encounter Summary ---
Author Organization [place] Address [address] [place] [address] Care Team Providers Care Insurance Sales Agent Name Role Phone Herb Herman MD Primary Care Provider Herb Herman MD Unavailable Stan Barnes MD Unavailable [phone] Trent Qureshi MD Unavailable [phone] Sammy Villa MD Unavailable [phone] Encounter Details Date Type Department Care Team (Late st Contact Info) Description 07/23/2021 MyC Medical Advice [address] [address] Brooke Barnes Social History Tobacco [...] How often do you attend chur or buddhism services? More than 4 times per year 06/08/2021 Do you belong to any clubs o r organizations such as synagogue groups, unions, fraternal or athletic groups, or [...] Answer Date Recorded PHQ-2 Score 0 06/24/2021 [facility] of Occupat ional [facility] - Occupational Stress Questionnaire Answer Date [...] AM CDT Legal Sex Female 3:11 AM C JAVA DEVELOPER Gender Identity Female 01/16/2019 8:38 AM CDT Sexual Orientation Choose not to disclose 2021 11:32 AM C JAVA DEVELOPER Occupation Industry Job Start Date Job [...] Description 11/14/2024 10:30 AM CDT Office Visit [facility] [address] [place] [phone] [place] [address] [place] [address] documented as of this encounter Visit Diagnoses Not on filedocumented in this encounter Additional Health Concerns Assessment Noted Time PHQ-9 Depression Total Score: 0 06/10/19 22 7:01 AM C JAVA DEVELOPER documented as of this encounter Care Teams Insurance Sales Agent Relationship Specialty [place] [address] [place] [address] PCP - General Family Medicine 12/24/20 [place] [address] [place] [address] Assigned PCP 01/04/21 Stan Barnes MD [address] [place], [place] 286585 Assigned Surgical Provider 08/30/21 08/31/23 Trent Qureshi MD [facility] [address] [place] [address] [id number] Orthopaedic Surgery 09/16/21 Sammy Villa MD 420 [facility] 96 [place], [place] 251925 Assigned Neuroscience Provider 10/01/24 documented as of this encounter
--- OUTSIDE RECORDS SUMMARY | 2024-10-26 05:00 | XMS_ITS | Encounter Summary ---
Author Organization [place] Address [address] [place] [address]. [place] [address] Care Team Providers Care Subsystems Engineer Name Role Phone Herb Herman MD Primary Care Provider Herb Herman MD Unavailable Stan Barnes MD Unavailable [phone] Trent Qureshi MD Unavailable [phone] Sammy Villa MD Unavailable Encounter Details Date Type Department Care Team (Late st Contact Info) Description 05/09/2023 MyC Medical Advice [facility] [address] [address] Stan Barnes MD [address] [place] [address] Social History Tobacco Use Types Packs/Day [...] How often do you attend chur or yarsanism services? 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 file documented as of this encounter Plan of Treatment Upcoming Encounters Date Type Department Care Team (Late st Contact Info) Description 11/14/2024 10:30 AM CDT Office Visit [address] [address] [place] [address] [place] [address] documented as of this encounter Visit Diagnoses Not on filedocumented in this encounter Additional Health Concerns Assessment Noted Time PHQ-9 Depression Total Score: 0 05/02/19 24 10:52 AM PRESSURE TESTER OPERATOR documented as of this encounter Care Teams Subsystems Engineer Relationship Specialty Start [place] [address] [place] [address] [id number] PCP - General Family Medicine 12/24/20 [place] [address] [place] [address] Assigned PCP 01/04/21 Stan Barnes MD [address] [place] [address] 435505 Assigned Surgical Provider 08/30/21 08/31/23 Trent Qureshi MD [facility] [address] [place] [address] [id number] Orthopaedic Surgery 09/16/21 Sammy Villa MD 420 [facility] 96 [place], [place] 885605 Assigned Neuroscience Provider 10/01/24 documented as of this encounter
--- OUTSIDE RECORDS SUMMARY | 2024-10-26 05:00 | XMS_ITS | Clinical Summary ---
Author Organization [facility] Address [address] [place] [address] Care Team Providers Care Standard Machine Stitcher Name Role Phone Herb Herman MD Primary Care Provider [phone] Allergies Active Allergy Reactions Criticality Noted Date [...] (10/18/2024): Seen incidentally on CT done at [facility] 12/22/2015 Spinal stenosis of lumbar re gion [...] Description 10/18/2024 2:00 PM CDT Office Visit [facility] [address] [place] [address] Felisha Perez, RN PROCEDURES, ORCHID HAND Speech disturbance, unspecified type (Primary Dx); Abnormality [...] patient's age to complete this topic Insurance Elastera Care Teams Standard Machine Stitcher Relationship Specialty [place] [address] [place] [address] PCP - General Family Medicine - 10/18/24
--- OUTSIDE RECORDS SUMMARY | 2024-10-26 05:00 | XMS_ITS | Encounter Summary ---
Author Organization [facility] Address [address] [place] [address] Care Team Providers Care Maintenance Mechanic 2Nd Shift Name Role Phone Herb Herman MD Primary Care Provider Herb Heramn MD Unavailable Trent Qureshi MD Unavailable [phone] Reason for Referral * Consultation (Routine: Next available opening) - Closed Specialty Diagnoses / Procedures Referred By Contac t Referred To Contact Orthopedics Diagnoses Low back pain Douglas Hernandez MD [facility] [address] [facility] [address] [place] [address] Phone: tel: fax: Referral ID Status Reason Start Date Expiration Date Visits Re quested Visits Authorized [id number] Closed 09/11/2024 09/11/2025 1 1 Scheduling Instructions Evaluate severe lumbar spinal stenosis Question Answer Consult Type: Other Type: Per Protocol My Clinical Question Is: low back pain Scheduling Instructions: [facility] Orthopedic Photographic Plate Maker team will contact you via phone, text, email or MyChart within 2 business days to help you schedule your appointment, or you may contact the Photographic Plate Maker Team at . Comments [facility] External Fax Details Provider: Douglas Hernandez Affiliated with: [facility] Clinic Location: [place] Phone number: [phone] Fax number: [phone] [place] Patient: No Medical records received with referral? No, Referral only [facility] Orthopedic Photographic Plate Maker team will contact you via phone, text, email or MyChart within 2 business days to help you schedule your appointment, or you may contact the Photographic Plate Maker Team at . 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 file documented as of this encounter Plan of Treatment Upcoming Encounters Date Type Department Care Team (Late st Contact Info) Description 11/14/2024 10:30 AM CDT Office Visit [facility] [address] [place] [address] [place] [address] [place] [address] Scheduled Referrals Name Type Priority Associated Diagnoses Orde r Schedule Orthopedic Photographic Plate Maker Referral Referral Routine: Next available opening Low back pain Expected: 09/11/2024 (Approximate), Expires: 09/11/2025 documented as of this encounter Visit Diagnoses Diagnosis Low back pain- Primary Lumbago documented in this encounter Additional Health Concerns Assessment Noted Time PHQ-9 Depression Total Score: 0 05/02/19 25 10:13 AM IMAGING ANALYST documented as of this encounter Care Teams Maintenance Mechanic 2Nd Shift Relationship Specialty [place] [address] [place] [address] PCP - General Family Medicine 12/24/20 [place] [address] [place] [address] Assigned PCP 01/04/21 Trent Qureshi MD [facility] [address] [place] [address] Orthopaedic Surgery 09/16/21 documented as of this encounter
--- OUTSIDE RECORDS SUMMARY | 2024-10-26 05:00 | XMS_ITS | Encounter Summary ---
Author Organization [facility] Address [address] [place] [address] Care Team Providers Care Buhr Dresser Name Role Phone Daniel Plaza MD Primary Care Provider Daniel Plaza MD Unavailable [phone] Daniel Plaza MD Unavailable [phone] Stan Barnes MD Unavailable [phone] Herb Herman MD Primary Care Provider [phone] Herb Herman MD Unavailable Stan Barnes MD Unavailable [phone] Trent Qureshi MD Unavailable [phone] Sammy Villa MD Unavailable Reason for Visit * Reason Onset Date Comments Respiratory Problems 02/16/2008 Encounter Details Date Type Department Care Team (Latest Contact Info) Description 02/15/2008 MyC Medical Advice [facility] [address] [address] Daniel Plaza MD [address] [address] Respiratory Problems Social History Tobacco Use Types Packs/Day Years Used Date Smoking Tobacco: Never Alcohol Use Standard Drinks/Week Comments Yes 0 (1 standard drink = 0.6 oz pur e alcohol) social Comments No Sex and Gender Information Value Date Recorded Sex Assigned at Female 01/16/2019 8:38 AM CDT Legal Sex Female 3:11 AM CABINET FINISHER Gender Identity Female 01/16/2019 8:38 AM CDT Sexual Orientation Choose not to disclose 2021 11:32 AM CABINET FINISHER documented as of this encounter Plan of Treatment Upcoming Encounters Date Type Department Care Team (Late st Contact Info) Description 11/14/2024 10:30 AM CDT Office Visit [facility] [address] [place] [address] [place] [address] [place] [address] documented as of this encounter Visit Diagnoses Not on filedocumented in this encounter Care Teams Buhr Dresser Relationship Specialty Start Date End Date Daniel Plaza MD [address] [place] [address] PCP - General 06/29/10 12/23/20 Daniel Plaza MD [address] [place] [address] PCP - Assigned PCP 02/05/08 06/13/18 [place] [address] [place] [address] PCP - General Family Medicine 12/24/20 Daniel Plaza MD [address] [place] [phone] Assigned PCP 01/13/12 01/03/21 Stan Barnes MD [address] [place] [address] Assigned Surgical Provider 02/01/20 07/19/20 [place] [address] [place] [address] Assigned PCP 01/04/21 Stan Barnes MD [address] [place] [address] Assigned Surgical Provider 08/30/21 08/31/23 Trent Qureshi MD [facility] [address] [place] [address] Orthopaedic Surgery 09/16/21 Sammy Villa MD [address] [place] [address] Assigned Neuroscience Provider 10/01/24 documented as of this encounter
--- OUTSIDE RECORDS SUMMARY | 2024-10-26 05:00 | XMS_ITS | Encounter Summary ---
Author Organization [facility] Address [address] [place] [address]. [place] [address] Care Team Providers Care Catering Convention Services Manager Name Role Phone Herb Herman MD Primary Care Provider Herb Herman MD Unavailable Stan Barnes MD Unavailable [phone] Trent Qureshi MD Unavailable [phone] Sammy Villa MD Unavailable [phone] Encounter Details Date Type Department Care Team (Late st Contact Info) Description 08/10/2021 [facility] [address] 4th [place] [address] Rodolfo Cline Social History Tobacco [...] 06/08/2021 How often do you attend [facility] or nondenominational services? More than 4 times [...] Recorded PHQ-2 Score 0 06/24/2021 [facility] of Occupat ional [facility] - Occupational Stress Questionnaire Answer Date [...] CDT Legal Sex Female 3:11 AM BRICK SETTER OPERATOR Gender Identity Female 01/16/2019 8:38 AM CDT Sexual Orientation Choose not to disclose 2021 11:32 AM BRICK SETTER OPERATOR Occupation Industry Job Start Date Job [...] AM CDT Office Visit [facility] [address] [place] [address] [place] [address] [place] [address] documented as of this encounter Visit Diagnoses Not on filedocumented in this encounter Additional Health Concerns Assessment Noted Time PHQ-9 Depression Total Score: 0 06/10/19 22 7:01 AM BRICK SETTER OPERATOR documented as of this encounter Care Teams Catering Convention Services Manager Relationship Specialty [place] [address] [place], [place] [phone] PCP - General Family Medicine 12/24/20 [place] [address] [place] [address] Assigned PCP 01/04/21 Stan Barnes MD [address] [place] [address] [phone] Assigned Surgical Provider 08/30/21 08/31/23 Trent Qureshi MD [facility] [address] [place] [address] 792205 Orthopaedic Surgery 09/16/21 Sammy Villa MD 420 [facility] 96 [place] [address] Assigned Neuroscience Provider 10/01/24 documented as of this encounter
--- OUTSIDE RECORDS SUMMARY | 2024-10-26 05:00 | XMS_ITS | Encounter Summary ---
Author Organization [place] Address [address] [place] [address]. [place] [address] Care Team Providers Care Legal Activity Adjudicator Name Role Phone Herb Herman MD Primary Care Provider Herb Herman MD Unavailable Stan Barnes MD Unavailable [phone] Trent Qureshi MD Unavailable [phone] Sammy Villa MD Unavailable Encounter Details Date Type Department Care Team (Late st Contact Info) Description 08/04/2021 MyC Medical Advice [facility] [address] [place] [address] [place] [address] [place] [address] Social History Tobacco Use Types [...] often do you attend chur ch or hoahaoism services? More than 4 times per year [...] in a longterm (including now)? No 06/08/2021 Comments No Sex and Gender Information Value Date Recorded Sex Assigned at Female 01/16/2019 8:38 AM CDT Legal Sex Female 3:11 AM WELL CONTROL INSTRUCTOR Gender Identity Female 01/16/2019 8:38 AM CDT Sexual Orientation Choose not to disclose 2021 11:32 AM WELL CONTROL INSTRUCTOR Occupation Industry Job Start Date Job [...] Description 11/14/2024 10:30 AM CDT Office Visit [facility] [address] [place] [address] [place] [address] [place] [address] documented as of this encounter Visit Diagnoses Not on filedocumented in this encounter Additional Health Concerns Assessment Noted Time PHQ-9 Depression Total Score: 0 06/10/19 22 7:01 AM WELL CONTROL INSTRUCTOR documented as of this encounter Care Teams Legal Activity Adjudicator Relationship Specialty [place] [address] [place] [address] PCP - General Family Medicine 12/24/20 [place] [address] [place] [address] Assigned PCP 01/04/21 Stan Barnes MD [address] [place] [address] 275005 Assigned Surgical Provider 08/30/21 08/31/23 Trent Qureshi MD [facility] [address] [place] [address] Orthopaedic Surgery 09/16/21 Sammy Villa MD [address] [place] [address] 96 [place], [place] 423895 Assigned Neuroscience Provider 10/01/24 documented as of this encounter
--- OUTSIDE RECORDS SUMMARY | 2024-10-26 05:00 | XMS_ITS | Encounter Summary ---
Author Organization [place] Address [address] [place] [address] Care Team Providers Care Master Ocean Yacht Name Role Phone Daniel Plaza MD Primary Care Provider Daniel Plaza MD Unavailable [phone] Daniel Plaza MD Unavailable [phone] Stan Barnes MD Unavailable [phone] Herb Herman MD Primary Care Provider [phone] Herb Herman MD Unavailable Stan Barnes MD Unavailable [phone] Trent Qureshi MD Unavailable [phone] Sammy Villa MD Unavailable Encounter Details Date Type Department Care Team (Late st Contact Info) Description 04/28/2013 MyC Medical Advice [facility] [address] [address] Daniel Plaza MD [address] [phone] Social History Tobacco Use Types Packs/Day Years Used Date Smoking Tobacco: Never Smokeless Tobacco: Never Alcohol Use Standard Drinks/Week Comments No 0 (1 standard drink = 0.6 oz pur e alcohol) Comments No Sex and Gender Information Value Date Recorded Sex Assigned at Female 01/16/2019 8:38 AM CDT Legal Sex Female 3:11 AM NATIONAL VAN TRUCK DRIVER Gender Identity Female 01/16/2019 8:38 AM CDT Sexual Orientation Choose not to disclose 2021 11:32 AM NATIONAL VAN TRUCK DRIVER documented as of this encounter Plan of Treatment Upcoming Encounters Date Type Department Care Team (Late st Contact Info) Description 11/14/2024 10:30 AM CDT Office Visit [facility] [address] [place] [phone] [place] [id number] [place] [address] documented as of this encounter Visit Diagnoses Not on filedocumented in this encounter Care Teams Master Ocean Yacht Relationship Specialty Start Date End Date Daniel Plaza MD [address] [place] [address] PCP - General 06/29/10 12/23/20 Daniel Plaza MD [address] [place] [address] PCP - Assigned PCP 02/05/08 06/13/18 [place] [address] [place] [address] PCP - General Family Medicine 12/24/20 Daniel Plaza MD [address] [place] [address] Assigned PCP 01/13/12 01/03/21 Stan Barnes MD [address] [place] [address] Assigned Surgical Provider 02/01/20 07/19/20 [place] [address] [place] [address] Assigned PCP 01/04/21 Stan Barnes MD [address] [place] [address] Assigned Surgical Provider 08/30/21 08/31/23 Trent Qureshi MD [facility] [address] [place] [address] Orthopaedic Surgery 09/16/21 Sammy Villa MD [address] [place] [address] 96 [place] [address] Assigned Neuroscience Provider 10/01/24 documented as of this encounter
--- OUTSIDE RECORDS SUMMARY | 2024-10-26 05:00 | XMS_ITS | Encounter Summary ---
Author Organization [facility] Address [address] [place] [address] Care Team Providers Care Worm Sorter Name Role Phone Herb Herman MD Primary Care Provider [phone] Herb Herman MD Unavailable Trent Qureshi MD Unavailable [phone] Reason for Visit * Reason Onset Date Comments Previsit 09/19/2024 Encounter Details Date Type Department Care Team (Late st Contact Info) Description 09/19/2024 PRE VISIT [facility] [address] [place] [address] Sammy Villa MD 420 [facility] 96 [place] [address] Previsit Social History Tobacco Use [...] often do you attend [facility] or mosque services? 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 file documented as of this encounter Miscellaneous Notes * Telephone Encounter - Moshe Pace - 09/13/2024 10:38 AM CDT Action Action Taken Request sent to O SPINE PATIENTS - NEW PROTOCOL PREVISIT RECORDS RECEVEIVED FROM: Referred by Dogulas Hernandez MD REASON FOR VISIT: Low back [...] AM CDT Office Visit [facility] [address] [place] [address] [place] [address] [place] [address] documented as of this encounter Visit Diagnoses Not on filedocumented in this encounter Additional Health Concerns Assessment Noted Time PHQ-9 Depression Total Score: 0 05/02/19 25 10:13 AM BUTTON BROACHER documented as of this encounter Care Teams Worm Sorter Relationship Specialty [place] [address] [place] [address] PCP - General Family Medicine 12/24/20 [place] [address] [place] [address] Assigned PCP 01/04/21 Trent Qureshi MD [facility] [address] [place] [address] Orthopaedic Surgery 09/16/21 documented as of this encounter
--- OUTSIDE RECORDS SUMMARY | 2024-10-26 05:01 | XMS_ITS | Encounter Summary ---
Author Organization [place] Address [address] [place] [address]. [place] [address] Care Team Providers Care Key Operator Name Role Phone Herb Herman MD Primary Care Provider Herb Herman MD Unavailable Trent Qureshi MD Unavailable [phone] Sammy Villa MD Unavailable [phone] Encounter Details Date Type Department Care Team (Late st Contact Info) Description 05/16/[address] [facility] [address] [place] [address] [place] [address] [place] [address] Social History Tobacco Use Types Packs/Day [...] How often do you attend [facility] or alevism services? 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 file documented as of this encounter Plan of Treatment Upcoming Encounters Date Type Department Care Team (Late st Contact Info) Description 11/14/2024 10:30 AM CDT Office Visit [address] [address] [place] [address] [place], [place] [phone] documented as of this encounter Visit Diagnoses Not on filedocumented in this encounter Additional Health Concerns Assessment Noted Time PHQ-9 Depression Total Score: 0 05/02/19 25 10:13 AM PRODUCTION PACKAGER documented as of this encounter Care Teams Key Operator Relationship Specialty [place] [address] [place] [address] PCP - General Family Medicine 12/24/20 [place] [address] [place] [address] Assigned PCP 01/04/21 Trent Qureshi MD [facility] [address] [place] [address] [id number] Orthopaedic Surgery 09/16/21 Sammy Villa MD [address] [place] [address] 118115 Assigned Neuroscience Provider 10/01/24 documented as of this encounter
--- OUTSIDE RECORDS SUMMARY | 2024-10-26 05:01 | XMS_ITS | Encounter Summary ---
Author Organization [place] Address [address] [place] [address]. [place] [address] Care Team Providers Care Administrative Services Specialist Name Role Phone Herb Herman MD Primary Care Provider Herb Herman MD Unavailable Stan Barnes MD Unavailable [phone] Trent Qureshi MD Unavailable [phone] Sammy Villa MD Unavailable [phone] Encounter Details Date Type Department Care Team (Late st Contact Info) Description 06/22/2022 MyC Medical Advice [facility] [address] [place] [address] [place] [address] [place] [address] Social History Tobacco Use Types [...] Answer Date Recorded PHQ-2 Score 0 03/08/2022 [facility] - [...] AM CDT Legal Sex Female 3:11 AM CONSUMER INSIGHT ANALYST Gender Identity Female 01/16/2019 8:38 AM CDT Sexual Orientation Choose not to disclose 2021 11:32 AM CONSUMER INSIGHT ANALYST 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 file documented as of this encounter Plan of Treatment Upcoming Encounters Date Type Department Care Team (Late st Contact Info) Description 11/14/2024 10:30 AM CDT Office Visit [facility] [address] [place] [phone] Herb Herman MD [address] [place] [address] documented as of this encounter Visit Diagnoses Not on filedocumented in this encounter Additional Health Concerns Assessment Noted Time PHQ-9 Depression Total Score: 0 03/08/20 22 10:26 AM CONSUMER INSIGHT ANALYST documented as of this encounter Care Teams Administrative Services Specialist Relationship Specialty [place] [address] [place] [address] PCP - General Family Medicine 12/24/20 [place] [address] [place] [address] Assigned PCP 01/04/21 Stan Barnes MD [address] [place] [address] Assigned Surgical Provider 08/30/21 08/31/23 Trent Qureshi MD [facility] [address] [address]278[address] Orthopaedic Surgery 09/16/21 Sammy Villa MD [address] [facility] 96 [place], [place] 447755 Assigned Neuroscience Provider 10/01/24 documented as of this encounter
--- OUTSIDE RECORDS SUMMARY | 2024-10-26 05:01 | XMS_ITS | Encounter Summary ---
Author Organization [facility] Address [address] [place] [address] Care Team Providers Care Stations Superintendent Name Role Phone Herb Herman MD Primary Care Provider Herb Herman MD Unavailable Trent Qureshi MD Unavailable [phone] Sammy Villa MD Unavailable Encounter Details Date Type Department Care Team (Late st Contact Info) Description 02/21/2024 [facility] Medical Advice [address] [address] Rama Roche MA Social History [...] AM CDT Legal Sex Female 3:11 AM PROGRAM DIRECTOR Gender Identity Female 01/16/2019 8:38 AM CDT Sexual Orientation Choose not to disclose 2021 11:32 AM PROGRAM DIRECTOR 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 file documented as of this encounter Plan of Treatment Upcoming Encounters Date Type Department Care Team (Late st Contact Info) Description 11/14/2024 10:30 AM CDT Office Visit [address] [phone] [place] Herman [place] [address] [place] [address] documented as of this encounter Visit Diagnoses Not on filedocumented in this encounter Additional Health Concerns Assessment Noted Time PHQ-9 Depression Total Score: 0 05/02/19 24 10:52 AM PROGRAM DIRECTOR documented as of this encounter Care Teams Stations Superintendent Relationship Specialty [place] [address] [place] [address] PCP - General Family Medicine 12/24/20 [place] [address] [place] [address] Assigned PCP 01/04/21 Trent Qureshi MD [facility] [address] [place] [address] [id number] Orthopaedic Surgery 09/16/21 Sammy Villa MD [address] [place] [address] 385985 Assigned Neuroscience Provider 10/01/24 documented as of this encounter
--- OUTSIDE RECORDS SUMMARY | 2024-10-26 05:01 | XMS_ITS | Encounter Summary ---
Author Organization [facility] Address [address] [place] [address] Care Team Providers Care Driller Helper Name Role Phone Daniel Plaza MD Primary Care Provider [phone] Daniel Plaza MD Unavailable Daniel Plaza MD Unavailable Stan Barnes MD Unavailable [phone] Herb Herman MD Primary Care Provider Herb Herman MD Unavailable Stan Barnes MD Unavailable [phone] Trent Qureshi MD Unavailable [phone] Sammy Villa MD Unavailable [phone] Encounter Details Date Type Department Care Team (Late st Contact Info) Description 12/24/2013 MyC Medical Advice [facility] [address] [address] Daniel Plaza MD [address] [phone] Social History Tobacco Use Types Packs/Day Years Used Date Smoking Tobacco: Never Smokeless Tobacco: Never Alcohol Use Standard Drinks/Week Comments No 0 (1 standard drink = 0.6 oz pur e alcohol) Comments No Sex and Gender Information Value Date Recorded Sex Assigned at Female 01/16/2019 8:38 AM CDT Legal Sex Female 3:11 AM TRIM CREW SUPERVISOR Gender Identity Female 01/16/2019 8:38 AM CDT Sexual Orientation Choose not to disclose 2021 11:32 AM TRIM CREW SUPERVISOR documented as of this encounter Plan of Treatment Upcoming Encounters Date Type Department Care Team (Late st Contact Info) Description 11/14/2024 10:30 AM CDT Office Visit [facility] [address] [place] [phone] [place]b Herman [place] [address] [place] [address] documented as of this encounter Visit Diagnoses Not on filedocumented in this encounter Care Teams Driller Helper Relationship Specialty Start Date End Date Daniel Plaza MD [address] [place] [address] PCP - General 06/29/10 12/23/20 Daniel Plaza MD [address] [place] [address] PCP - Assigned PCP 02/05/08 06/13/18 [place] [address] [place] [address] PCP - General Family Medicine 12/24/20 Daniel Plaza MD [address] [place] [address] Assigned PCP 01/13/12 01/03/21 Stan Barnes MD [address] [place] [address] Assigned Surgical Provider 02/01/20 07/19/20 [place] [address] [place] [address] Assigned PCP 01/04/21 Stan Barnes MD [address] [place] [address] Assigned Surgical Provider 08/30/21 08/31/23 Trent Qureshi MD [facility] [address] [place] [address] Orthopaedic Surgery 09/16/21 Sammy Villa MD [address] [place] [address] 96 [place] [address] Assigned Neuroscience Provider 10/01/24 documented as of this encounter
--- OUTSIDE RECORDS SUMMARY | 2024-10-26 05:01 | XMS_ITS | Encounter Summary ---
Author Organization [facility] Address [address] [place] [address] Care Team Providers Care Quality Control Technician Name Role Phone Herb Herman MD Primary Care Provider [phone] Herb Herman MD Unavailable Stan Barnes MD Unavailable [phone] Trent Qureshi MD Unavailable [phone] Sammy Villa MD Unavailable [phone] Reason for Visit * Reason Comments Medication Refill Encounter Details Date Type Department Care Team (Late st Contact Info) Description 01/28/[address] [phone] Daniel Plaza MD [address] [place] [phone] Medication Refill Social History Tobacco Use Types Packs/Day Years Used Date Smoking Tobacco: Never Smokeless Tobacco: Never Alcohol Use Standard Drinks/Week Comments No 0 (1 standard drink = 0.6 oz pur e alcohol) PHQ-2 Answer Date Recorded PHQ-2 Score 0 12/24/2020 Comments No Sex and Gender Information Value Date Recorded Sex Assigned at Female 01/16/2019 8:38 AM CDT Legal Sex Female 3:11 AM RESTAURANT HOURLY TEAM MEMBER Gender Identity Female 01/16/2019 8:38 AM CDT Sexual Orientation Choose not to disclose 2021 11:32 AM RESTAURANT HOURLY TEAM MEMBER documented as of this encounter Miscellaneous Notes [...] Description 11/14/2024 10:30 AM CDT Office Visit [facility] [address] [place] [phone] Herb Herman [place] [address] [place] [address] documented as of this encounter Visit Diagnoses Diagnosis Edema, unspecified type Essential hypertension Unspecified essential hypertension Type 2 diabetes mellitus without complication, without long-term current use of insulin (H) documented in this encounter Additional Health Concerns Assessment Noted Time PHQ-9 Depression Total Score: 0 12/26/19 21 7:02 AM CDT documented as of this encounter Care Teams Quality Control Technician Relationship Specialty [place] [address] [place] [address] PCP - General Family Medicine 12/24/20 [place] [address] [place] [address] Assigned PCP 01/04/21 Stan Barnes MD [address] [place] [address] Assigned Surgical Provider 08/30/21 08/31/23 Trent Qureshi MD [facility] [address] [place] [address] Orthopaedic Surgery 09/16/21 Sammy Villa MD [address] [place] [address] 96 [place] [address] Assigned Neuroscience Provider 10/01/24 documented as of this encounter
--- OUTSIDE RECORDS SUMMARY | 2024-10-26 05:01 | XMS_ITS | Encounter Summary ---
Author Organization [facility] Address [address] [place] [address] Care Team Providers Care Python Django Developer Name Role Phone Daniel Plaza MD Primary Care Provider Daniel Plaza MD Unavailable [phone] Daniel Plaza MD Unavailable Stan Barnes MD Unavailable [phone] Herb Herman MD Primary Care Provider [phone] Herb Herman MD Unavailable Stan Barnes MD Unavailable [phone] Trent Qureshi MD Unavailable [phone] Sammy Villa MD Unavailable Encounter Details Date Type Department Care Team (Late st Contact Info) Description 10/30/2014 MyC Medical Advice [facility] [address] [phone] Daniel Plaza MD [address] [phone] Social History Tobacco Use Types Packs/Day Years Used Date Smoking Tobacco: Never Smokeless Tobacco: Never Alcohol Use Standard Drinks/Week Comments No 0 (1 standard drink = 0.6 oz pur e alcohol) Comments No Sex and Gender Information Value Date Recorded Sex Assigned at Female 01/16/2019 8:38 AM CDT Legal Sex Female 3:11 AM LEVEL DESIGNER Gender Identity Female 01/16/2019 8:38 AM CDT Sexual Orientation Choose not to disclose 2021 11:32 AM LEVEL DESIGNER documented as of this encounter Miscellaneous Notes [...] Description 11/14/2024 10:30 AM CDT Office Visit [facility] [address] [place] [phone] Herb Herman [place] [address] [place] [address] documented as of this encounter Visit Diagnoses Not on filedocumented in this encounter Care Teams Python Django Developer Relationship Specialty Start Date End Date Daniel Plaza MD [address] [phone] PCP - General 06/29/10 12/23/20 Daniel Plaza MD [address] [place] [address] PCP - Assigned PCP 02/05/08 06/13/18 [place] [address] [place] [address] PCP - General Family Medicine 12/24/20 Daniel Plaza MD [address] [place] [address] Assigned PCP 01/13/12 01/03/21 Stan Barnes MD [address] [place] [address] Assigned Surgical Provider 02/01/20 07/19/20 [place] [address] [place] [address] Assigned PCP 01/04/21 Stan Barnes MD [address] [place] [address] Assigned Surgical Provider 08/30/21 08/31/23 Trent Qureshi MD [facility] [address] [place] [address] Orthopaedic Surgery 09/16/21 Sammy Villa MD [address] [place] [address] Assigned Neuroscience Provider 10/01/24 documented as of this encounter
--- OUTSIDE RECORDS SUMMARY | 2024-10-26 05:01 | XMS_ITS | Encounter Summary ---
Author Organization [facility] Address [address] [place] [address] Care Team Providers Care Brain Surgeon Name Role Phone Herb Herman MD Primary Care Provider Herb Herman MD Unavailable Stan Barnes MD Unavailable [phone] Trent Qureshi MD Unavailable [phone] Sammy Villa MD Unavailable [phone] Encounter Details Date Type Department Care Team (Late st Contact Info) Description 12/23/2021 MyC Medical Advice [facility] [address] [place] [phone] Brooke Barnes Social History Tobacco Use [...] Answer Date Recorded PHQ-2 Score 0 11/24/2021 [facility] - Occupational Stress Questionnaire Answer Date Recorded [...] AM CDT Legal Sex Female 3:11 AM HOG SCRAPER Gender Identity Female 01/16/2019 8:38 AM CDT Sexual Orientation Choose not to disclose 2021 11:32 AM HOG SCRAPER Occupation Industry Job Start Date Job End [...] Description 11/14/2024 10:30 AM CDT Office Visit [facility] [address] [place] [phone] [place] [address] [place] [address] documented as of this encounter Visit Diagnoses Not on filedocumented in this encounter Additional Health Concerns Assessment Noted Time PHQ-9 Depression Total Score: 1 08/23/19 22 7:03 AM CDT documented as of this encounter Care Teams Brain Surgeon Relationship Specialty [place] [address] [place] [address] PCP - General Family Medicine 12/24/20 [place] [address] [place] [address] Assigned PCP 01/04/21 Stan Barnes MD [address] [place] [address] 530755 Assigned Surgical Provider 08/30/21 08/31/23 Trent Qureshi MD [facility] [address] [place] [address] 264385 Orthopaedic Surgery 09/16/21 Sammy Villa MD [address] [place] [address] 96 [place] [address] Assigned Neuroscience Provider 10/01/24 documented as of this encounter
--- OUTSIDE RECORDS SUMMARY | 2024-10-26 05:01 | XMS_ITS | Encounter Summary ---
Author Organization [place] Address [address] [place] [address]. [place] [address] Care Team Providers Care Roll Finisher Name Role Phone Herb Herman MD Primary Care Provider [phone] Herb Herman MD Unavailable Stan Barnes MD Unavailable [phone] Trent Qureshi MD Unavailable [phone] Sammy Villa MD Unavailable [phone] Encounter Details Date Type Department Care Team (Late st Contact Info) Description 08/27/2021 MyC Medical Advice [address] 5[address] [place] [address] Rachelle Mai RN Social History [...] How often do you attend chur or restorationist services? More than 4 times [...] Answer Date Recorded PHQ-2 Score 0 08/25/2021 [facility] - Occupational Stress Questionnaire Answer Date Recorded [...] CDT Legal Sex Female 3:11 AM PASSENGER VESSEL CHEF Gender Identity Female 01/16/2019 8:38 AM CDT Sexual Orientation Choose not to disclose 2021 11:32 AM PASSENGER VESSEL CHEF Occupation Industry Job Start Date Job End [...] Description 11/14/2024 10:30 AM CDT Office Visit [facility] [address] [place] [phone] [place] Herman [place] [address] [place] [address] [phone] documented as of this encounter Visit Diagnoses Not on filedocumented in this encounter Additional Health Concerns Assessment Noted Time PHQ-9 Depression Total Score: 1 08/23/19 22 7:03 AM CDT documented as of this encounter Care Teams Roll Finisher Relationship Specialty [place] [address] [place], [place] [phone] PCP - General Family Medicine 12/24/20 [place] [address] [place] [address] Assigned PCP 01/04/21 Stan Barnes MD [address] [place] [address] 206865 Assigned Surgical Provider 08/30/21 08/31/23 Trent Qureshi MD [facility] [address] [place] [address] 003175 Orthopaedic Surgery 09/16/21 Sammy Villa MD 420 [facility] 96 [place] [address] Assigned Neuroscience Provider 10/01/24 documented as of this encounter
--- OUTSIDE RECORDS SUMMARY | 2024-10-26 05:01 | XMS_ITS | Encounter Summary ---
Author Organization [facility] Address [address] [place] [address] Care Team Providers Care Supervisor Force Adjustment Name Role Phone Daniel Plaza MD Primary Care Provider Daniel Plaza MD Unavailable Daniel Plaza MD Unavailable Stan Barnes MD Unavailable [phone] Herb Herman MD Primary Care Provider Herb Herman MD Unavailable Stan Barnes MD Unavailable [phone] Trent Qureshi MD Unavailable [phone] Sammy Villa MD Unavailable [phone] Encounter Details Date Type Department Care Team (Late st Contact Info) Description 07/25/2012 MyC Medical Advice [facility] [address] [address] Daniel Plaza MD [address] [phone] Social History Tobacco Use Types Packs/Day Years Used Date Smoking Tobacco: Never Smokeless Tobacco: Never Alcohol Use Standard Drinks/Week Comments No 0 (1 standard drink = 0.6 oz pur e alcohol) Comments No Sex and Gender Information Value Date Recorded Sex Assigned at Female 01/16/2019 8:38 AM CDT Legal Sex Female 3:11 AM CATHODE RAY TUBE SALVAGE PROCESSOR Gender Identity Female 01/16/2019 8:38 AM CDT Sexual Orientation Choose not to disclose 2021 11:32 AM CATHODE RAY TUBE SALVAGE PROCESSOR documented as of this encounter Plan of Treatment Upcoming Encounters Date Type Department Care Team (Late st Contact Info) Description 11/14/2024 10:30 AM CDT Office Visit [facility] [address] [place] [phone] Herb Herman [place] [address] [place] [address] documented as of this encounter Visit Diagnoses Not on filedocumented in this encounter Care Teams Supervisor Force Adjustment Relationship Specialty Start Date End Date Daniel Plaza MD [address] [place] [phone] PCP - General 06/29/10 12/23/20 Daniel Plaza MD [address] [place] [address] PCP - Assigned PCP 02/05/08 06/13/18 [place] [address] [place] [address] PCP - General Family Medicine 12/24/20 Daniel Plaza MD [address] [place] [phone] Assigned PCP 01/13/12 01/03/21 Stan Barnes MD [address] [place] [address] Assigned Surgical Provider 02/01/20 07/19/20 [place] [address] [place] [address] Assigned PCP 01/04/21 Stan Barnes MD [address] [place] [address] Assigned Surgical Provider 08/30/21 08/31/23 Trent Qureshi MD [facility] [address] [place] [address] Orthopaedic Surgery 09/16/21 Sammy Villa MD [address] [place] [address] 96 [place] [address] Assigned Neuroscience Provider 10/01/24 documented as of this encounter
--- OUTSIDE RECORDS SUMMARY | 2024-10-26 05:01 | XMS_ITS | Encounter Summary ---
Author Organization [facility] Address [address] [place] [address] Care Team Providers Care Auto Haulaway Driver Name Role Phone Herb Herman MD Primary Care Provider [phone] Herb Herman MD Unavailable Trent Qureshi MD Unavailable [phone] Sammy Villa MD Unavailable Encounter Details Date Type Department Care Team (Late st Contact Info) Description 02/20/2024 [facility] Medical Advice [address] [phone] Brooke Barnes Social History Tobacco [...] often do you attend chur ch or pentecostalism services? 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 file documented as of this encounter Plan of Treatment Upcoming Encounters Date Type Department Care Team (Late st Contact Info) Description 11/14/2024 10:30 AM CDT Office Visit [address] [phone] [place] [address] [place] [address] documented as of this encounter Visit Diagnoses Not on filedocumented in this encounter Additional Health Concerns Assessment Noted Time PHQ-9 Depression Total Score: 0 05/02/19 24 10:52 AM WALKING DRAGLINE OILER documented as of this encounter Care Teams Auto Haulaway Driver Relationship Specialty [place] [address] [place] [address] PCP - General Family Medicine 12/24/20 [place] [address] [place] [address] Assigned PCP 01/04/21 Trent Qureshi MD [facility] [address] [place] [address] [id number] Orthopaedic Surgery 09/16/21 Sammy Villa MD [address] [place] [address] 96 [place], [place] 225485 Assigned Neuroscience Provider 10/01/24 documented as of this encounter
--- OUTSIDE RECORDS SUMMARY | 2024-10-26 05:01 | XMS_ITS | Encounter Summary ---
Author Organization [place] Address [address] [place] [address]. [place] [address] Care Team Providers Care Banquet Stewardess Name Role Phone Herb Herman MD Primary Care Provider [phone] Herb Herman MD Unavailable Stan Barnes MD Unavailable [phone] Trent Qureshi MD Unavailable [phone] Sammy Villa MD Unavailable [phone] Encounter Details Date Type Department Care Team (Late st Contact Info) Description 09/23/2021 [facility] [address] 4th [place] [address] Son [place] Social History Tobacco Use Types Packs/Day Years [...] do you attend [facility] or jainism services? More than 4 times [...] Answer Date Recorded PHQ-2 Score 0 09/15/2021 [facility] - Occupational Stress Questionnaire Answer [...] CDT Legal Sex Female 3:11 AM HOG RAISER Gender Identity Female 01/16/2019 8:38 AM CDT Sexual Orientation Choose not to disclose 2021 11:32 AM HOG RAISER Occupation Industry Job Start Date Job End [...] Description 11/14/2024 10:30 AM CDT Office Visit [facility] [address] [place] [phone] [place] [address] [place] [address] documented as of this encounter Visit Diagnoses Not on filedocumented in this encounter Additional Health Concerns Assessment Noted Time PHQ-9 Depression Total Score: 1 08/23/19 22 7:03 AM CDT documented as of this encounter Care Teams Banquet Stewardess Relationship Specialty [place] [address] [place] [address] PCP - General Family Medicine 12/24/20 [place] [address] [place] [address] Assigned PCP 01/04/21 Stan Barnes MD [address] [place] [address] [phone] Assigned Surgical Provider 08/30/21 08/31/23 Trent Qureshi MD [facility] [address] [place] [address] [id number] Orthopaedic Surgery 09/16/21 Sammy Villa MD 420 [facility] 96 [place] [address] Assigned Neuroscience Provider 10/01/24 documented as of this encounter
--- OUTSIDE RECORDS SUMMARY | 2024-10-26 05:01 | XMS_ITS | Encounter Summary ---
Author Organization [place] Address [address] [place] [address] Care Team Providers Care Town Clerk Name Role Phone Herb Herman MD Primary Care Provider [phone] Herb Herman MD Unavailable Trent Qureshi MD Unavailable [phone] Encounter Details Date Type Department Care [...] often do you attend chur ch or orthodoxy services? 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 file documented as of this encounter Plan of Treatment Upcoming Encounters Date Type Department Care Team (Late st Contact Info) Description 11/14/2024 10:30 AM CDT Office Visit [facility] [address] [place] [address] [place] [address] [place] [address] documented as of this encounter Visit Diagnoses Not on filedocumented in this encounter Additional Health Concerns Assessment Noted Time PHQ-9 Depression Total Score: 0 05/02/19 25 10:13 AM WATER RESOURCES ENGINEER documented as of this encounter Care Teams Town Clerk Relationship Specialty [place] [address] [place] [address] PCP - General Family Medicine 12/24/20 [place] [address] [place] [address] Assigned PCP 01/04/21 Trent Qureshi MD [facility] [address] [place] [address] Orthopaedic Surgery 09/16/21 documented as of this encounter
--- OUTSIDE RECORDS SUMMARY | 2024-10-26 05:01 | XMS_ITS | Encounter Summary ---
Author Organization [place] Address [address] [place] [address]. [place] [address] Care Team Providers Care Environmental Field Services Technician Name Role Phone Herb Herman MD Primary Care Provider Herb Herman MD Unavailable Trent Qureshi MD Unavailable [phone] Sammy Villa MD Unavailable Reason for Visit * Reason Onset Date Comments MyChart Communication 03/30/2024 Encounter Details Date Type Department Care Team (Latest Contact Info) Description 03/30/2024 My[facility] Medical Advice [facility] [address] [place] [address] [place] [address] [place] [address] MyChart Communication Social History Tobacco [...] Answer Date Recorded PHQ-2 Score 0 05/02/2023 [facility] - Occupational Stress Questionnaire Answer [...] AM CDT Legal Sex Female 3:11 AM SHOE ASSOCIATE Gender Identity Female 01/16/2019 8:38 AM CDT Sexual Orientation Choose not to disclose 2021 11:32 AM SHOE ASSOCIATE 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 file documented as of this encounter Plan of Treatment Upcoming Encounters Date Type Department Care Team (Late st Contact Info) Description 11/14/2024 10:30 AM CDT Office Visit [address] [phone] [place] [address] [place] [address] documented as of this encounter Visit Diagnoses Not on filedocumented in this encounter Additional Health Concerns Assessment Noted Time PHQ-9 Depression Total Score: 0 05/02/19 24 10:52 AM SHOE ASSOCIATE documented as of this encounter Care Teams Environmental Field Services Technician Relationship Specialty Start Date [place]b [place] [address] [place] [address] PCP - General Family Medicine 12/24/20 [place] [address] [place] [address] Assigned PCP 01/04/21 Trent Qureshi MD [facility] [address] [place] [address] [phone] Orthopaedic Surgery 09/16/21 Sammy Villa MD [address] [place] [address] 96 [place], [place] [phone] Assigned Neuroscience Provider 10/01/24 documented as of this encounter
--- OUTSIDE RECORDS SUMMARY | 2024-10-26 05:01 | XMS_ITS | Encounter Summary ---
Author Organization [place] Address [address] [place] [address] Care Team Providers Care Vice President Payment Name Role Phone Daniel Plaza MD Primary Care Provider Daniel Plaza MD Unavailable [phone] Daniel Plaza MD Unavailable [phone] Stan Barnes MD Unavailable [phone] Herb Herman MD Primary Care Provider [phone] Herb Herman MD Unavailable Stan Barnes MD Unavailable [phone] Trent Qureshi MD Unavailable [phone] Sammy Villa MD Unavailable [phone] Reason for Visit * Reason Onset Date Comments Medication Request 04/22/2015 Encounter Details Date Type Department Care Team (Late st Contact Info) Description 04/22/2015 [facility] [place] [facility] [address] [address] Daniel Plaza MD [address] [address] Medication Request Social History Tobacco Use Types Packs/Day Years Used Date Smoking Tobacco: Never Smokeless Tobacco: Never Alcohol Use Standard Drinks/Week Comments No 0 (1 standard drink = 0.6 oz pur e alcohol) Comments No Sex and Gender Information Value Date Recorded Sex Assigned at Female 01/16/2019 8:38 AM CDT Legal Sex Female 3:11 AM REPLANTING MACHINE CREW Gender Identity Female 01/16/2019 8:38 AM CDT Sexual Orientation Choose not to disclose 2021 11:32 AM REPLANTING MACHINE CREW documented as of this encounter Plan of Treatment Upcoming Encounters Date Type Department Care Team (Late st Contact Info) Description 11/14/2024 10:30 AM CDT Office Visit [facility] [address] [place] [phone] [place] [address] [place] [address] documented as of this encounter Visit Diagnoses Diagnosis Edema, unspecified edema- Primary documented in this encounter Care Teams Vice President Payment Relationship Specialty Start Date End Date Daniel Plaza MD [address] [place] [phone] PCP - General 06/29/10 12/23/20 Daniel Plaza MD [address] [place] [phone] PCP - Assigned PCP 02/05/08 06/13/18 [place] [address] [place] [address] PCP - General Family Medicine 12/24/20 Daniel Plaza MD [address] [place] [phone] Assigned PCP 01/13/12 01/03/21 Stan Barnes MD [address] [place] [address] Assigned Surgical Provider 02/01/20 07/19/20 [place] [address] [place] [address] Assigned PCP 01/04/21 Stan Barnes MD [address] [place] [address] Assigned Surgical Provider 08/30/21 08/31/23 Trent Qureshi MD [facility] [address] [place] [address] Orthopaedic Surgery 09/16/21 Sammy Villa MD [address] [place] [address] Assigned Neuroscience Provider 10/01/24 documented as of this encounter
--- OUTSIDE RECORDS SUMMARY | 2024-10-26 05:01 | XMS_ITS | Encounter Summary ---
Author Organization [place] Address [address] [place] [address] Care Team Providers Care Electrical And Instrumentation Mechanic Name Role Phone Daniel Plaza MD Primary Care Provider [phone] Daniel Plaza MD Unavailable [phone] Herb Herman MD Primary Care Provider Herb Herman MD Unavailable Stan Barnes MD Unavailable Trent Qureshi MD Unavailable [phone] Sammy Villa MD Unavailable [phone] Encounter Details Date Type Department Care Team (Late st Contact Info) Description 10/15/2020 MyC Medical Advice [address] [address] Yvonne Zavala Social History Tobacco [...] AM CDT Legal Sex Female 3:11 AM COLOR SEPARATION PHOTOGRAPHER Gender Identity Female 01/16/2019 8:38 AM CDT Sexual Orientation Choose not to disclose 2021 11:32 AM COLOR SEPARATION PHOTOGRAPHER documented as of this encounter Plan of Treatment Upcoming Encounters Date Type Department Care Team (Late st Contact Info) Description 11/14/2024 10:30 AM CDT Office Visit [facility] [address] [place] [address] [place] [address] [place] [address] documented as of this encounter Visit Diagnoses Not on filedocumented in this encounter Additional Health Concerns Assessment Noted Time PHQ-9 Depression Total Score: 1 06/26/19 11:29 AM CDT documented as of this encounter Care Teams Electrical And Instrumentation Mechanic Relationship Specialty Start Date End Date Daniel Plaza MD [address] [place] [phone] PCP - General 06/29/10 12/23/20 Herb Herman MD [address] [place] [address] PCP - General Family Medicine 12/24/20 Daniel Plaza MD [address] [place] [phone] Assigned PCP 01/13/12 01/03/21 [place] [address] [place] [address] Assigned PCP 01/04/21 Stan Barnes MD [address] [place] [address] Assigned Surgical Provider 08/30/21 08/31/23 Trent Qureshi MD [facility] [address] [place] [address] 117985 Orthopaedic Surgery 09/16/21 Sammy Villa MD [address] [place] [address] 96 [place], [place] [phone] Assigned Neuroscience Provider 10/01/24 documented as of this encounter
--- OUTSIDE RECORDS SUMMARY | 2024-10-26 05:01 | XMS_ITS | Encounter Summary ---
Author Organization [place] Address [address] [place] [address] Care Team Providers Care Director Of Marketing Google Performance Ads Name Role Phone Daniel Plaza MD Primary Care Provider Daniel Plaza MD Unavailable [phone] Daniel Plaza MD Unavailable Stan Barnes MD Unavailable [phone] Herb Herman MD Primary Care Provider Herb Herman MD Unavailable Stan Barnes MD Unavailable [phone] Trent Qureshi MD Unavailable [phone] Sammy Villa MD Unavailable [phone] Encounter Details Date Type Department Care Team (Late st Contact Info) Description 10/30/2014 MyC Medical Advice [facility] [address] [address] Daniel Plaza MD [address] [phone] Social History Tobacco Use Types Packs/Day Years Used Date Smoking Tobacco: Never Smokeless Tobacco: Never Alcohol Use Standard Drinks/Week Comments No 0 (1 standard drink = 0.6 oz pur e alcohol) Comments No Sex and Gender Information Value Date Recorded Sex Assigned at Female 01/16/2019 8:38 AM CDT Legal Sex Female 3:11 AM BIOMEDICAL SPECIALIST Gender Identity Female 01/16/2019 8:38 AM CDT Sexual Orientation Choose not to disclose 2021 11:32 AM BIOMEDICAL SPECIALIST documented as of this encounter Plan of Treatment Upcoming Encounters Date Type Department Care Team (Late st Contact Info) Description 11/14/2024 10:30 AM CDT Office Visit [facility] [address] [place] [phone] [place] [address] [place] [address] documented as of this encounter Visit Diagnoses Not on filedocumented in this encounter Care Teams Director Of Marketing Google Performance Ads Relationship Specialty Start Date End Date Daniel Plaza MD [address] [place] [phone] PCP - General 06/29/10 12/23/20 Daniel Plaza MD [address] [place] [phone] PCP - Assigned PCP 02/05/08 06/13/18 [place] [address] [place] [address] PCP - General Family Medicine 12/24/20 Daniel Plaza MD [address] [place] [phone] Assigned PCP 01/13/12 01/03/21 Stan Barnes MD [address] [place] [address] Assigned Surgical Provider 02/01/20 07/19/20 [place] [address] [place] [address] Assigned PCP 01/04/21 Stan Barnes MD [address] [place] [address] Assigned Surgical Provider 08/30/21 08/31/23 Trent Qureshi MD [facility] [address] [place] [address] Orthopaedic Surgery 09/16/21 Sammy Villa MD [address] [place] [address] 96 [place] [address] Assigned Neuroscience Provider 10/01/24 documented as of this encounter
--- OUTSIDE RECORDS SUMMARY | 2024-10-26 05:01 | XMS_ITS | Encounter Summary ---
Author Organization [place] Address [address] [place] [address]. [place] [address] Care Team Providers Care Immunology Specialist Name Role Phone Herb Herman MD Primary Care Provider [phone] Herb Herman MD Unavailable Trent Qureshi MD Unavailable [phone] Sammy Villa MD Unavailable Encounter Details Date Type Department Care Team (Late st Contact Info) Description 03/31/2024 MyC Medical Advice [facility] [address] [place] [phone] [place] [address] [place] [address] Social History Tobacco Use Types [...] any clubs o r organizations such as nondenominational groups, unions, fraternal or athletic groups, or [...] Answer Date Recorded PHQ-2 Score 0 05/02/2023 [facility] - Occupational [...] AM CDT Legal Sex Female 3:11 AM WEIGHT INSPECTOR Gender Identity Female 01/16/2019 8:38 AM CDT Sexual Orientation Choose not to disclose 2021 11:32 AM WEIGHT INSPECTOR 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 file documented as of this encounter Plan of Treatment Upcoming Encounters Date Type Department Care Team (Late st Contact Info) Description 11/14/2024 10:30 AM CDT Office Visit [address] [phone] [place] [address] [place], [place] [phone] documented as of this encounter Visit Diagnoses Not on filedocumented in this encounter Additional Health Concerns Assessment Noted Time PHQ-9 Depression Total Score: 0 05/02/19 24 10:52 AM WEIGHT INSPECTOR documented as of this encounter Care Teams Immunology Specialist Relationship Specialty [place] [address] [place] [address] PCP - General Family Medicine 12/24/20 [place] [address] [place] [address] Assigned PCP 01/04/21 Trent Qureshi MD [facility] [address] [place] [address]1985 Orthopaedic Surgery 09/16/21 Sammy Villa MD [address] [place] [address] 201385 Assigned Neuroscience Provider 10/01/24 documented as of this encounter
--- OUTSIDE RECORDS SUMMARY | 2024-10-26 05:01 | XMS_ITS | Encounter Summary ---
Author Organization [place] Address [address] [place] [address] Care Team Providers Care Report Manager Name Role Phone Herb Herman MD Primary Care Provider [phone] Herb Herman MD Unavailable Stan Barnes MD Unavailable [phone] Trent Qureshi MD Unavailable [phone] Sammy Villa MD Unavailable Encounter Details Date Type Department Care Team (Late st Contact Info) Description 09/15/[address] [facility] [address] [place] [address] Manny Petersen MD [address] [place], [place] [phone] Encounter for laboratory testing for COVID-19 virus [...] often do you attend chur ch or voodoo services? More than 4 times [...] Answer Date Recorded PHQ-2 Score 0 09/15/2021 [facility] of Occupat [...] AM CDT Legal Sex Female 3:11 AM CYBER LEGAL ADVISOR Gender Identity Female 01/16/2019 8:38 AM CDT Sexual Orientation Choose not to disclose 2021 11:32 AM CYBER LEGAL ADVISOR Occupation Industry Job Start Date Job [...] AM CDT Office Visit [facility] [address] [place] [phone] Herb Herman MD [address] [place] [address] documented as of this encounter Results [...] COVID-19. This test was validated by the [facility] Infectious Diseases Diagnostic Laboratory. This laboratory is certified under the Clinical Laboratory Improvement Amendments of 1988 (CLIA-88) as qualified to perform high and/or moderate complexity laboratory testing. Manny Petersen MD LAB - MICRO GENERAL ORDERABLES F inal Result [facility] Inf. Diseases Diag. Lab [address] [facility], Room D297 [place] [id number] [phone] documented in this encounter Visit Diagnoses Diagnosis Encounter for laboratory testing for COVID-19 virus documented in this encounter Additional Health Concerns Assessment Noted Time PHQ-9 Depression Total Score: 1 08/23/19 22 7:03 AM CDT documented as of this encounter Care Teams Report Manager Relationship Specialty [place] [address] [place] [address] PCP - General Family Medicine 12/24/20 [place] [address] [place] [address] Assigned PCP 01/04/21 Stan Barnes MD [address] [place] [address] 815975 Assigned Surgical Provider 08/30/21 08/31/23 Trent Qureshi MD [facility] [address] [place] [address] 700255 Orthopaedic Surgery 09/16/21 Sammy Villa MD 420 [facility] 96 [place] [address] Assigned Neuroscience Provider 10/01/24 documented as of this encounter
--- OUTSIDE RECORDS SUMMARY | 2024-10-26 05:01 | XMS_ITS | Encounter Summary ---
Author Organization [place] Address [address] [place] [address] Care Team Providers Care Fish Roe Processor Name Role Phone Daniel Plaza MD Primary Care Provider Daniel Plaza MD Unavailable Daniel Plaza MD Unavailable Stan Barnes MD Unavailable [phone] Herb Herman MD Primary Care Provider Herb Herman MD Unavailable Stan Barnes MD Unavailable [phone] Trent Qureshi MD Unavailable [phone] Sammy Villa MD Unavailable [phone] Reason for Visit * Reason Onset Date Comments Thyroid Disease 07/23/2014 Encounter Details Date Type Department Care Team (Late st Contact Info) Description 07/23/2014 [facility] [address] [address] Daniel Plaza MD [address] [address] Thyroid Disease Social History Tobacco Use Types Packs/Day Years Used Date Smoking Tobacco: Never Smokeless Tobacco: Never Alcohol Use Standard Drinks/Week Comments No 0 (1 standard drink = 0.6 oz pur e alcohol) Comments No Sex and Gender Information Value Date Recorded Sex Assigned at Female 01/16/2019 8:38 AM CDT Legal Sex Female 3:11 AM BUS PERSON Gender Identity Female 01/16/2019 8:38 AM CDT Sexual Orientation Choose not to disclose 2021 11:32 AM BUS PERSON documented as of this encounter Plan of Treatment Upcoming Encounters Date Type Department Care Team (Late st Contact Info) Description 11/14/2024 10:30 AM CDT Office Visit [facility] [address] [place] [phone] [place] [address] [place] [address] documented as of this encounter Visit Diagnoses Diagnosis MONTSERRAT'S THYROIDITIS- Primary Unspecified hypothyroidism documented in this encounter Care Teams Fish Roe Processor Relationship Specialty Start Date End Date Daniel Plaza MD [address] [place] [phone] PCP - General 06/29/10 12/23/20 Daniel Plaza MD [address] [place] [phone] PCP - Assigned PCP 02/05/08 06/13/18 [place] [address] [place] [address] PCP - General Family Medicine 12/24/20 Daniel Plaza MD [address] [place] [phone] Assigned PCP 01/13/12 01/03/21 Stan Barnes MD [address] [place] [address] Assigned Surgical Provider 02/01/20 07/19/20 [place] [address] [place] [address] Assigned PCP 01/04/21 Stan Barnes MD [address] [place] [address] Assigned Surgical Provider 08/30/21 08/31/23 Trent Qureshi MD [facility] [address] [place] [address] 328315 Orthopaedic Surgery 09/16/21 Sammy Villa MD [address] [place] [address] Assigned Neuroscience Provider 10/01/24 documented as of this encounter
--- OUTSIDE RECORDS SUMMARY | 2024-10-26 05:01 | XMS_ITS | Encounter Summary ---
Author Organization [facility] Address [address] [place] [address] Care Team Providers Care Civil Service Clerk Name Role Phone Daniel Plaza MD Primary Care Provider Daniel Plaza MD Unavailable Daniel Plaza MD Unavailable Stan Barnes MD Unavailable [phone] Herb Herman MD Primary Care Provider Herb Herman MD Unavailable Stan Barnes MD Unavailable [phone] Trent Qureshi MD Unavailable [phone] Sammy Villa MD Unavailable Encounter Details Date Type Department Care Team (Late st Contact Info) Description 01/09/2014 [facility] Medical Advice [facility] [address] [address] Daniel Plaza MD [address] [phone] Social History Tobacco Use Types Packs/Day Years Used Date Smoking Tobacco: Never Smokeless Tobacco: Never Alcohol Use Standard Drinks/Week Comments No 0 (1 standard drink = 0.6 oz pur e alcohol) Comments No Sex and Gender Information Value Date Recorded Sex Assigned at Female 01/16/2019 8:38 AM CDT Legal Sex Female 3:11 AM BALLISTICS EXPERT Gender Identity Female 01/16/2019 8:38 AM CDT Sexual Orientation Choose not to disclose 2021 11:32 AM BALLISTICS EXPERT documented as of this encounter Plan of Treatment Upcoming Encounters Date Type Department Care Team (Late st Contact Info) Description 11/14/2024 10:30 AM CDT Office Visit [facility] [id number] [place] [phone] [place] [id number] [place] [address] documented as of this encounter Visit Diagnoses Not on filedocumented in this encounter Care Teams Civil Service Clerk Relationship Specialty Start Date End Date Daniel Plaza MD [address] [place] [phone] PCP - General 06/29/10 12/23/20 Daniel Plaza MD [address] [place] [phone] PCP - Assigned PCP 02/05/08 06/13/18 [place] [address] [place] [address] PCP - General Family Medicine 12/24/20 Daniel Plaza MD [address] [place] [phone] Assigned PCP 01/13/12 01/03/21 Stan Barnes MD [address] [place] [address] Assigned Surgical Provider 02/01/20 07/19/20 [place] [address] [place] [address] Assigned PCP 01/04/21 Stan Barnes MD [address] [place] [address] Assigned Surgical Provider 08/30/21 08/31/23 Trent Qureshi MD [facility] [address] [place] [address] Orthopaedic Surgery 09/16/21 Sammy Villa MD [address] [place] [address] [address] [place] [address] Assigned Neuroscience Provider 10/01/24 documented as of this encounter
[2024-10-26 05:02] VITALS: BP 126/84; PULSE 71; RESP 18; TEMP 36.7; O2SAT 99; BMI 37.4
[2024-10-26 06:29] VITALS: BP 118/78; PULSE 75; RESP 18; TEMP 36.7; O2SAT 99
[2024-10-26] MEDS: SENNOSIDES 1 TAB TABLET PO (06:44)
[2024-10-26] MEDS: CELECOXIB 200 MG CAPSULE PO (06:44)
[2024-10-26 06:52] VITALS: BP 118/78; PULSE 75; RESP 18; TEMP 36.7
--- NOTE | 2024-10-26 07:37 | ED.GENADULT ---
HPI - General Adult General Chief complaint: Fall/Minor Trauma Stated complaint: Fall Time Seen by Provider: 10/26/24 05:19 Source: patient Mode of arrival: ambulatory Limitations: no limitations History of Present Illness HPI narrative: 79-year-old female presents to the emergency department by EMS. Patient reports that her walker mechanism collapsed, causing her to fall forward. She did not hit her head, did not lose consciousness. Purely mechanical type fall and she is not noting pain different than her usual pain. She reports chronic neck pain and chronic radiculopathy pain in her lower back that radiates down her right leg. She reports that these improved after recent prednisone burst given in the ED. no fever, no vision changes, no new focal neurological changes. No difficulty moving her arms. She was able to pivot transfer without difficulty from the EMS cot to the bed which I observed. She also is able to pull herself up to sitting using the bed rails without difficulty. She notes no nausea and vomiting, no bloody stools, no chest pain or shortness of breath. She has not tried taking any new medications to help with her symptoms today. Reported to EMS that she ?just wanted to get checked out? Prior ED note with Dr. Ponce and recent prednisone reviewed. Home meds reviewed. I do notice piroxicam allergy on her list, she cannot recall the status or circumstances regarding that. She actually thinks it may be an error. She is very confident that she is allergic to all of the statins and the antibiotics as well as morphine that are listed. She certainly does not think it was an anaphylactic allergy to piroxicam. She is nonsmoker lives on the [facility]. ROS is notable for some mild ongoing constipation for which she tells me she took a laxative yesterday that has not given results, otherwise denies times 12 systems. She reports that she also has oxycodone to use for back pain at night which she does occasionally use. Related Data Home Medications ?Medication ?Instructions ?Recorded ?Confirmed amitriptyline 25 mg tablet 25 mg PO QPM 01/31/24 10/23/24 ergocalciferol (vitamin D2) 1,250 1,250 mcg PO .every week 01/31/24 10/23/24 mcg (50,000 unit) capsule levothyroxine 137 mcg tablet 137 mcg PO DAILY 01/31/24 10/23/24 metformin 1,000 mg tablet 1,000 mg PO BID 01/31/24 10/23/24 naproxen 500 mg tablet 500 mg PO BID PRN moderate pain 01/31/24 10/23/24 omeprazole 20 mg capsule,delayed 20 mg PO QPM 01/31/24 10/23/24 release lisinopril 20 1 tab PO DAILY 10/20/24 10/23/24 mg-hydrochlorothiazide 25 mg tablet prednisone 20 mg tablet 20 mg PO BID 10/23/24 10/23/24 Previous Rx's ?Medication ?Instructions ?Recorded aspirin 81 mg tablet 81 mg PO DAILY #90 tabs 10/03/24 clopidogrel 75 mg tablet 75 mg PO DAILY #30 tabs 10/04/24 ezetimibe 10 mg tablet (Zetia) 10 mg PO DAILY #90 tabs 10/23/24 hydrocodone 5 mg-acetaminophen 325 1 - 2 tab PO Q6-8H PRN pain #30 10/23/24 mg tablet tabs celecoxib 200 mg capsule (Celebrex) 200 mg PO DAILY #4 caps 10/26/24 Allergies Allergy/AdvReac Type Severity Reaction Status Date / Time atorvastatin Allergy Unknown Verified 10/26/24 05:04 niacin Allergy Unknown Verified 10/26/24 05:04 piroxicam Allergy Unknown Verified 10/26/24 05:04 pravastatin Allergy Unknown Verified 10/26/24 05:04 rosuvastatin Allergy Unknown Verified 10/26/24 05:04 simvastatin Allergy Unknown Verified 10/26/24 05:04 doxycycline Allergy Verified 10/26/24 05:04 erythromycin base Allergy Verified 10/26/24 05:04 morphine Allergy Verified 10/26/24 05:04 [facility] Medical History Hyperlipidemia ?E78.5 - Hyperlipidemia, unspecified (ICD-10) Major 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 (12/22/15) ?F32.5 - Major depressive disorder, single episode, in full remission (ICD-10) Poor balance (05/20/23) ?R26.89 - Other abnormalities of gait and mobility (ICD-10) Spinal stenosis of lumbar region with neurogenic claudication (03/20/15) ?M48.062 - Spinal stenosis, lumbar region with neurogenic claudication (ICD-10) Lumbar radiculopathy ?M54.16 - Radiculopathy, lumbar region (ICD-10) Lumbosacral radiculitis ?M54.17 - Radiculopathy, lumbosacral region (ICD-10) Lumbar spondylosis ?M47.816 - Spondylosis without myelopathy or radiculopathy, lumbar region (ICD-10) Obesity (BMI 30-39.9) ?E66.9 - Obesity, unspecified (ICD-10) Chronic kidney disease, stage 3a ?N18.31 - Chronic kidney disease, stage 3a (ICD-10) Insomnia ?G47.00 - Insomnia, unspecified (ICD-10) Acquired hypothyroidism ?E03.9 - Hypothyroidism, unspecified (ICD-10) 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 - Stenosis of larynx (ICD-10) Diabetes mellitus type 2, controlled ?E11.9 - Type 2 diabetes mellitus without complications (ICD-10) Vitamin D deficiency ?E55.9 - Vitamin D deficiency, unspecified (ICD-10) Essential hypertension ?I10 - Essential (primary) hypertension (ICD-10) Surgical History S/P total hip arthroplasty (09/21/21) ?Z96.649 - Presence of unspecified artificial hip joint (ICD-10) Social History What is your current living situation?: I presently have a place to live Problems where you live: no known problems Problems where you live details: NA In the past 12 months, utilities in danger of being shut off: no In past 12 months, lack of transportation kept you from medical appts, meetings, work, or getting things needed for daily living: no In the past 12 mos, have been you worried that your food would run out before you had money to buy more?: never true In the past 12 mos, the food you bought just didn't last and you didn't have money to buy more?: never true Highest level of school completed/degree received: Master's degree Smoking Status: Never smoker Do you use any of these nicotine containing products: None Second hand tobacco smoke exposure: No How often do you have a drink containing alcohol: never How often do you have six or more drinks on one occasion: Never AUDIT-C Alcohol total score: 0 Non-prescribed substance use: denies use Caffeine: Yes (Diet Pepsi, Daily) How often does anyone, including family, friends and others, physically hurt you: never How often does anyone, including family, friends and others, insult or talk down to you: never How often does anyone, including family, friends and others, threaten you with harm: never How often does anyone, including family, friends and others, scream or curse at you: never service: No Exam Const: Vital Signs, click to edit/add: Vital Signs - 24 hr 10/26/24 05:02 10/26/24 06:29 10/26/24 06:52 Temperature 98.0 F 98.0 F 98.0 F Pulse Rate [Right Pulse Oximeter] 71 75 75 Respiratory Rate 18 18 18 Blood Pressure [Ri ght Upper Arm] 126/84 118/78 118/78 Pulse Oximetry 99 99 Oxygen Delivery Me thod Room Air Room Air Documenting provider has reviewed patient's vital signs: yes Common normals: no apparent distress and alert General appearance: cooperative Other: Appears well nourished, well hydrated. Absolutely no bruising, broken skin or signs of any injury today. HENMT: Common normals: normocephalic, head/scalp atraumatic and oropharynx normal Head and scalp: normocephalic and atraumatic Mouth: oral and palatal mucosa normal Eye: Common normals: PERRL, EOMs intact bilaterally and conjunctivae normal General eye: normal appearance of both eyes Conjunctiva: conjunctiva(e) normal Pupil: PERRL Neck & C-Spine: Common normals: full ROM and no lymphadenopathy General: normal visual inspection Other: No point bony tenderness. There is certainly loss of typical cervical lordosis and forward head positioning, chronic appearing in nature. She has some mild paraspinal muscle tenderness bilaterally but no focal bony tenderness, step-offs or deformity. She has full range of motion of the C-spine. Chest: Common normals: inspection of chest normal and palpation of chest normal Resp: Common normals: normal respiratory effort, no use of accessory muscles and clear to auscultation bilaterally Effort & inspection: able to speak in complete sentences Auscultation: clear to auscultation bilaterally Cardio: Common normals: regular rate, regular rhythm, S1 normal heart sound, S2 normal heart sound and no murmurs Rate: regular rate Rhythm: regular rhythm Heart sounds: S1 normal and S2 normal GI: Common normals: Normal to inspection, nondistended, normoactive bowel sounds present, soft to palpation, non-tender, no hepatosplenomegaly and no masses Palpation: soft and no hepatosplenomegaly Extremity: Other: No deformity to the lower legs. Surgical scarring consistent with prior knee replacement. No bruising, no broken skin. No difficulty moving lower extremity. Neuro: Common normals: moves all extremities and no focal motor deficits Sensorium/orientation: alert Speech: speech normal Psych: Attitude: calm Activity/motor behavior: appropriate eye contact Insight: fair Judgement: fair Skin: Common normals: no rashes or lesions noted General skin exam: no rashes or lesions noted Course Course ED Course: 79-year-old female with mechanical type fall and no apparent injury. Counseled patient that she will probably have some aches and pains in relation to the fall. She will be given a dose of Celebrex and observed here in the ED. update: This was done and she tolerated the medicine without difficulty for an hour. Will give patient this medication to have at home to use once daily for the next 5 days if needed in case of flare of her osteoarthritic type pain. She may continue use of her nighttime oxycodone if needed and is counseled on Tylenol and other pain relieving methods. She should follow up with her primary care team if symptoms are not improving in a week. Alarm symptoms reviewed that would warrant ED presentation. We also discussed her constipation. She certainly is eating and drinking normally and her abdomen is not distended. For her convenience, she is given a dose of senna and MiraLax here in the ED and is counseled to continue her home laxative every 8 hours until she gets adequate results. Vital Signs Vital signs: Initial Vital Signs Temperature 98.0 F 10/26/24 05:02 Temperature Source Temporal Artery Scan 10/26/24 05:02 Pulse Rate 71 10/26/24 05:02 Respiratory Rate 18 10/26/24 05:02 Blood Pressure 126/84 10/26/24 05:02 Blood Pressure Mean 98 10/26/24 05:02 Blood Pressure Position Supine 10/26/24 05:02 Pulse Oximetry 99 10/26/24 05:02 Oxygen Delivery Method Room Air 10/26/24 05:02 Vital Signs Temperature 98.0 F 10/26/24 05:02 Pulse Rate 71 10/26/24 05:02 Respiratory Rate 18 10/26/24 05:02 Blood Pressure 126/84 10/26/24 05:02 Pulse Oximetry 99 10/26/24 05:02 Oxygen Delivery Method Room Air 10/26/24 05:02 Temperature 98.0 F 10/26/24 06:52 Pulse Rate 75 10/26/24 06:52 Respiratory Rate 18 10/26/24 06:52 Blood Pressure 118/78 10/26/24 06:52 Pulse Oximetry 99 10/26/24 06:29 Oxygen Delivery Method Room Air 10/26/24 06:29 Medications Administered Medications: Discontinued Medications Generic Name Dose Route Start Last Admin Trade Name Freq PRN Reason Stop Dose Admin Celecoxib 200 mg 10/26/24 06:13 10/26/24 06:44 Celecoxib 200 Mg Capsule PO 10/26/24 06:14 200 mg ONCE ONE Administration Polyethylene Glycol 17 gm 10/26/24 06:13 10/26/24 06:44 Polyethylene Glycol 3350 17 Gm Pack PO 10/26/24 06:14 17 gm ONCE ONE Administration Sennosides 1 tab 10/26/24 06:14 10/26/24 06:44 Sennosides 1 Tab Tablet PO 10/26/24 06:15 1 tab ONCE ONE Administration Discharge Plan Discharge Clinical Impression: Accident due to mechanical fall without injury Patient Disposition: Home w/ Parent or Adult Instructions: Fall Prevention for Older Adults (ED) Additional Instructions: As we discussed, there does not seem to be any serious injury from your mild stumbled today. I do suspect that you will be sore and achy for a few days. Because of this, I have recommended a short course of Celebrex, and anti-inflammatory pain medicine. It looks like you have tolerated prednisone without difficulty in the past. That can raise her blood sugar and cause some insomnia, therefore I would like to try sticking with a different NSAID. Your allergy list does say that you are allergic to piroxicam, but most people that do not tolerate that medicine will tolerate Celebrex if it was due to side effects. You do seem confident that it was not an anaphylactic allergy. Remember that you may also continue to use Tylenol 1000 mg 3 times daily and that you may continue to use her oxycodone for discomfort at night. Take the Celebrex once daily for the next 4 days, in the morning and hopefully things are back to normal by early next week. You may stop the Celebrex early if you find you no longer need it. If her symptoms last for more than 5 days, I would recommend re-evaluation from her primary care doctor. You were given a dose of MiraLax and a dose of senna here in the emergency room because you state that your bowels have not been moving well. I would recommend you repeat your laxative every 8 hours at home until your bowels move well. Your next dose would be due at around 3:00 p.m.. Activity Level: Activity as Tolerated Discharge Diet: Regular Prescriptions: New celecoxib [Celebrex] 200 mg capsule 200 mg PO DAILY Qty: 4 0RF Rx Instructions: Take once daily in the morning for neck sprain, 1st dose given in ED, next dose due 10/27 No Action prednisone 20 mg tablet 20 mg PO BID ezetimibe [Zetia] 10 mg tablet 10 mg PO DAILY Qty: 90 3RF hydrocodone-acetaminophen 5-325 mg tablet 1 - 2 tab PO Q6-8H PRN (Reason: pain) Qty: 30 0RF lisinopril-hydrochlorothiazide 20-25 mg tablet 1 tab PO DAILY levothyroxine 137 mcg tablet 137 mcg PO DAILY amitriptyline 25 mg tablet 25 mg PO QPM metformin 1,000 mg tablet 1,000 mg PO BID omeprazole 20 mg capsule,delayed release(DR/EC) 20 mg PO QPM ergocalciferol (vitamin D2) 1,250 mcg (50,000 unit) capsule 1,250 mcg PO .every week naproxen 500 mg tablet 500 mg PO BID PRN (Reason: moderate pain) aspirin 81 mg tablet 81 mg PO DAILY Qty: 90 0RF clopidogrel 75 mg tablet 75 mg PO DAILY Qty: 30 2RF Follow Up/Referrals: Herb Herman MD [Referring, Family Practice] Stand Alone Forms: [employer] Info Instructions
== END 2024-10-26 06:52 | disposition home or self-care (01) ==
PROVIDERS: Emergency Provider Family Medicine; PCP Internal Medicine
DX: M54.2 Cervicalgia (principal); W19.XXXA Unspecified fall, initial encounter
CPT/HCPCS: 99283; A9270

== ENCOUNTER 2024-11-02 09:16 | Emergency (ER) | payer MEDICARE, OTHER, SELFPAY ==
--- OUTSIDE RECORDS SUMMARY | 2024-09-19 14:20 | XMS_ITS | Encounter Summary ---
Author Organization [place] Address [facility]ly [facility] [place] [address] Care Team Providers Care Front Desk Supervisor Name Role Phone Herb Herman MD Primary Care Provider Herb Herman MD Unavailable Trent Qureshi MD Unavailable [phone] Reason for Referral * Consultation (Routine: Next available opening) - Pending Review Specialty Diagnoses / Procedures Referred By Contac t Referred To Contact Diagnoses Lumbar stenosis with neurogenic claudication Sammy Villa MD [address] [address] Phone: tel: fax: Referral ID Status Reason Start Date Expiration Date V isits Requested Visits Authorized [id number] Pending Review 09/19/2024 09/19/2025 1 1 Question Answer Referral Type: Procedure Procedure: Epidural (Advanced imaging required in the last 3 years) Location: Lumbar Injection Type: Interlaminar ARTHUR Level: L3-4 Has the patient had a CT or MRI of the area of concern within the last 12 months? Yes Patient Scheduling Instructions: Our [facility] Orthopedic Bulb Planter team will contact you via phone, text, email or MyChart within 2 business days to help you schedule your appointment, or you may contact the Bulb Planter Team at . Additional Information: L3-4 or L4-5 ARTHUR Comments Please be aware that coverage of these services is subject to the terms and limitations of your health insurance plan. Call member services at your health plan with any benefit or coverage questions. Our [facility]opedic Bulb Planter team will contact you via phone, text, email or MyChart within 2 business days to help you schedule your appointment, or you may contact the Bulb Planter Team at . * Rehab Therapy Physical Therapy (Routine: Next available opening) - Pending Review Specialty Diagnoses / Procedures Referred By Ambreen allen Referred To Contact Diagnoses Lumbar stenosis with neurogenic claudication Sammy Villa MD [address] [facility] [address] [place] [address] Phone: tel: fax: Referral ID Status Reason Start Date Expiration Date V isits Requested Visits Authorized [id number] Pending Review 09/19/2024 09/19/2025 1 1 Question Answer Course of Action: Evaluation and Treatment Specialty Services: Per Associated Diagnosis Patient Scheduling Instructions: [facility] will call you to coordinate your care as prescribed by your provider. If you don't hear from a chemical sales representative within 2 business days, please call . Comments Please be aware that coverage of these services is subject to the terms and limitations of your health insurance plan. Call member services at your health plan with any benefit or coverage questions. [facility] will call you to coordinate your care as prescribed by your provider. If you don't hear from a chemical sales representative within 2 business days, please call . Reason for Visit * Reason Comments Consult Low back pain * Consultation (Routine: Next available opening) - Closed Specialty Diagnoses / Procedures Referred By Contac t Referred To Contact Orthopedics Diagnoses Low back pain Douglsa Hernandez MD [facility] [address] [facility] [address] [place] [address] Phone: tel: fax: Referral ID Status Reason Start Date Expiration Date Visits Re quested Visits Authorized [id number] Closed 09/11/2024 09/11/2025 1 1 Encounter Details Date Type Department Care Team (Late st Contact Info) Description 09/19/2024 2:20 PM CDT Office Visit [facility] [place] [address] [facility] [address] [place] [phone] Douglas Hernandez MD [facility] [address] [place] [address] [place], [place] [address] Sammy Villa MD [address] [facility] [address] [place], [place] [address] Lumbar stenosis with neurogenic claudication (Primary Dx); Chronic bilateral low back pain with bilateral sciatica Social History Tobacco Use Types Packs/Day Years [...] 06/08/2021 How often do you attend chur or lutheran services? 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 file documented as of this encounter Last Filed Vital Signs Vital Sign Reading Time Taken Comments Blood Pressure 153/85 09/19/2024 1:50 PM CDT Pulse 76 09/19/2024 1:43 PM CDT Temperature - - Respiratory Rate - - Oxygen Saturation 98% 09/19/2024 1:43 PM CDT Inhaled Oxygen Concentration - - Weight 105.2 kg (232 lb) 09/19/2024 1:43 PM CDT Height 162.6 cm (5' 4) 09/19/2024 1:43 PM CDT Body Mass Index 39.82 09/19/2024 1:43 PM CDT documented in this encounter Patient Instructions * Patient Instructions* Ana Larsen RN - 09/19/2024 2:20 PM CDT Patient Next Steps: Order placed for epidural steroid injection The steroid can take 10-14 days to reach max effect Please call our clinic if symptoms persist after this timeframe. Our [facility] Bulb Planter team will contact you via phone, text, email or MyChart within 2 business days to help you schedule your appointment, or you may contact the Bulb Planter Team at . Order placed for physical therapy. You can call the phone number highlighted in the order to schedule your appointment. Please call our clinic if symptoms persist after your course of physical therapy. If you have not heard from the scheduling office within 2 business days, please call [phone] for [facility], for [place] and [phone] for [facility]. Please call us if you have any further questions or concerns. [facility] documented in this encounter Progress Notes * Sammy Villa MD - 09/19/2024 2:20 PM CDT HPI: 78-year-old female with longstanding low back pain rating into the bilateral lower extremities. Pain is worse with standing walking and somewhat relieved by sitting. She does note more difficulty with her balance over the last few months and is now using a cane for ambulation. She gets significant low back pain with worsening leg pain with ambulation. Pain affects both legs. She does note difficulty with bowel movements as the strain causes more pain. She denies any inability to void. She has done physical therapy a few years ago but nothing recently. She did recall an injection quite a few years ago in her low back but nothing recently once again. She does have neck pain radiating to her arm which is recently treated with a steroid injection which did help with the symptoms. She does note her lower extremity symptoms are worse than her upper extremity symptoms. Current Outpatient Medications Medication Sig Dispense Refill acetaminophen (TYLENOL) 325 MG tablet Take 2 tablets (650 mg) by mouth every 4 hours as needed for other (mild pain) 100 tablet 0 amitriptyline (ELAVIL) 25 MG tablet Take 1 tablet (25 mg) by mouth at bedtime. 90 tablet 3 blood glucose (ACCU-CHEK MILDRED PLUS) test strip USE TO TEST BLOOD GLUCOSE LEVELS ONCE DAILY. 100 strip 0 blood glucose monitoring (SOFTCLIX) lancets Use to test blood sugar 1 times daily. 100 each 3 ketoconazole (NIZORAL) 2 % external shampoo Apply topically daily as needed for itching or irritation 120 mL 0 levothyroxine (SYNTHROID/LEVOTHROID) 137 MCG tablet Take 1 tablet (137 mcg) by mouth daily. 90 tablet 3 lisinopril-hydrochlorothiazide (ZESTORETIC) 20-25 MG tablet Take 1 tablet by mouth daily. 90 tablet3 metFORMIN (GLUCOPHAGE) 1000 MG tablet Take 1 tablet (1,000 mg) by mouth 2 times daily (with meals).180 tablet 3 naproxen (NAPROSYN) 500 MG tablet Take 1 tablet (500 mg) by mouth 2 times daily as needed for moderate pain 120 tablet 3 omeprazole (PRILOSEC) [address] capsule Take 1 capsule (20 mg) by mouth daily. Take 20 mg by mouth prn 90 capsule 3 STATIN NOT PRESCRIBED (INTENTIONAL) Due to statin intolerance vitamin D2 (ERGOCALCIFEROL) 25663 units (1250 mcg) capsule TAKE ONE CAPSULE BY MOUTH WEEKLY ON WEDNESDAYS 12 capsule 3 No current facility-administered medications for this visit. Physical Exam: Vital signs: BP: (!) 153/85 Pulse: 76 SpO2: 98 % Height: 162.6 cm (5' 4) Weight: 105.2 kg (232 lb) Estimated body mass index is 39.82 kg/m?? as calculated from the following: Height as of this encounter: 1.626 m (5' 4). Weight as of this encounter: 105.2 kg (232 lb). She has full strength in her bilateral lower extremities. Sensation is intact to light touch throughout. Gait is normal. Results Reviewed: I personally viewed the images of an MRI of the lumbar spine. This shows L3-4 central canal stenosis severe due to bilateral facet impingement with bilateral foraminal stenosis present. There is alsovarying levels of foraminal stenosis throughout the rest of the lumbar spine. There is straightening of the lumbar spine in the lower segments which causes compensatory increase in the L3-4 segment. I personally reviewed scoliosis films showing the following parameters: LL 37* (L4-S1 16*) PI 59* PT 28* These numbers indicate a overall loss of lumbar lordosis most significantly from L4-S1 with a loss of about 25 degrees. Lumbar 1-4 does appear to be normal overall and lordosis. Assessment: 78-year-old female with low back pain and leg pain due to neurogenic claudication with lumbar stenosis. Plan: We discussed conservative and surgical management options going forward. Since it has been a coupleof years since her last physical therapy and she has not had any recent injections I would recommend going forward with these first before considering surgery. Surgery may however be necessary and this would necessitate an L3-4 fusion. We did discuss that this probably stems from a loss of lumbar lordosis in her lower lumbar segments and she would be at risk for revision surgery in the future. She has however not a great surgical candidate for a large lumbar surgery and therefore would only recommend operating at L3 3-4 as this is the primary symptomatic level. We did discuss losing weight would be beneficial to decreasing complication rate with surgery and she is almost at risk for not being eligible for surgery right now due to her weight. I did offer weight management clinic referral. If she does not improve with physical therapy and injections we will go forward with an L3-4 fusion decompression. We discussed risks and benefits in detail. Decompression surgery risks include but are not limited to neurologic injury to the spinal cord or nerves including pain weakness numbness or bowel or bladder control loss, spinal fluid leak potentially requiring further interventions, postoperative hematoma or infection, postoperative wound dehiscence or infection, adjacent segment degeneration or restenosis with new or reherniation of the intervertebral disc. Risks for posterior spinal fusion include but are not limited to neurologic injury including spinal cord or nerve injury which can lead to temporary or permanent deficits such as pain weakness or numbness. This can also lead tobowel or bladder control issues or balance issues as well. Also includes a possibility for CSF leak, postoperative hematoma or infection leading to spinal cord injury or nerve injury. There are also risks for hardware malplacement causing vascular and neurologic injury. Postoperative wound dehiscence. Adjacent segment disease in the future necessitating further surgeries. We discussed even in situations where surgery has no complications it is certainly possible for the patient to have worsening of his symptoms after surgery. Sammy Villa MD documented in this encounter Nursing Notes * Trinidad Robertson - 09/19/2024 2:20 PM CDT Angela Lamar is a 78 year old female who presents for: Chief Complaint Patient presents with Consult Low back pain Initial Vitals: BP (!) 153/85 Pulse 76 Ht 5' 4 (1.626 m) Wt 232 lb (105.2 kg) LMP 02/21/2002 SpO2 98% BMI 39.82 kg/m?? Estimated body mass index is 39.82 kg/m?? as calculated from the following: Height as of this encounter: 5' 4 (1.626 m). Weight as of this encounter: 232 lb (105.2 kg).. Body surface area is 2.18 meters squared. BP completed using cuff size: regular Severe Pain (9) Trinidad Robertson documented in this encounter Plan of Treatment Scheduled Referrals Name Type Priority Associated Diagnoses Orde r Schedule Physical Therapy Bulb Planter Referral Referral Routine: Next available opening Lumbar stenosis with neurogenic claudication Expected: 09/19/2024 (Approximate), Expires: 09/19/2025 Spine Bulb Planter Referral Referral Routine: Next available opening Lumbar stenosis with neurogenic claudication Expected: 09/19/2024 (Approximate), Expires: 09/19/2025 documented as of this encounter Visit Diagnoses Diagnosis Lumbar stenosis with neurogenic claudication- Primary Spinal stenosis, lumbar region, with neurogenic claudication Chronic bilateral low back pain with bilateral sciatica documented in this encounter Additional Health Concerns Assessment Noted Time PHQ-9 Depression Total Score: 0 05/02/19 25 10:13 AM GUEST RELATIONS EXECUTIVE documented as of this encounter Care Teams Front Desk Supervisor Relationship Specialty [place] [address] [place] [address] PCP - General Family Medicine 12/24/20 [place] [address] [place] [address] Assigned PCP 01/04/21 Trent Qureshi MD [facility] [address] [place] [address] Orthopaedic Surgery 09/16/21 documented as of this encounter
--- OUTSIDE RECORDS SUMMARY | 2024-09-26 10:15 | XMS_ITS | Encounter Summary ---
Author Organization [place] Address [facility] [place] [address] Care Team Providers Care Foil Spooler Name Role Phone Herb Herman MD Primary Care Provider [phone] Herb Herman MD Unavailable Trent Qureshi MD Unavailable [phone] Reason for Referral * Clinically Administered Medications (Routine) - Closed Specialty Diagnoses / Procedures Referred By Contac t Referred To Contact Diagnoses unknown [place] [address] [place] [address] Phone: tel: fax: Referral ID Status Reason Start Date Expiration Date Visits Re quested Visits Authorized [id number] Closed 09/26/2024 09/26/2025 1 1 Reason for Visit * Reason Comments Pain * Consultation (Routine: Next available opening) - Pending Review Specialty Diagnoses / Procedures Referred By Contac t Referred To Contact Diagnoses Lumbar stenosis with neurogenic claudication Sammy Villa MD [address] [facility] [address] [place] [address] Phone: tel: fax: Referral ID Status Reason Start Date Expiration Date V isits Requested Visits Authorized [id number] Pending Review 09/19/2024 09/19/2025 1 1 Encounter Details Date Type Department Care Team (Latest Contact Info) Description 09/26/2024 10:15 AM CDT Radiology Injection Office Visit [facility] [place] [address] [place] [address] [address] [place], [place] [address] Sammy Villa MD [address] [facility] [address] [place] [address] [place] [address] [place] [address] Lumbar radiculopathy (Primary Dx); Lumbar stenosis with [...] week 06/08/2021 How often do you attend [facility] or voodoo services? More than 4 times per year 06/08/2021 Do you belong to any clubs o r organizations such as caodaism groups, unions, fraternal or athletic groups, or [...] Answer Date Recorded PHQ-2 Score 0 05/02/2024 [facility] of Occupat ional Health - Occupational Stress [...] AM CDT Legal Sex Female 3:11 AM PRIVATE DETECTIVE Gender Identity Female 01/16/2019 8:38 AM CDT Sexual Orientation Choose not to disclose 2021 11:32 AM PRIVATE DETECTIVE Occupation Industry Job Start Date Job End [...] Velazquez RN - 09/26/2024 10:15 AM CDT [facility] Procedure Discharge Instructions Today [...] pain center line during work hours at [phone] on-call physician after hours at [phone]: -Fever over 100 degree F -Swelling, bleeding, [...] from the original note were not included. [facility] Pain Management Center - Procedure Note [...] the procedure. Diagnosis: Lumbar spondylosis; Lumbar radiculitis/radiculopathy Roller Engraver: Daniel Dunlap MD Anesthesia: none Indications: Angela [...] 7.1 MRI LUMBAR SPINE was done @ [facility] on 02/15/2024 and was reviewed - I [...] any questions or NO to having a taxi driver Please complete laminated checklist and leave [...] oral steroids? NO Do you have a taxi driver? Yes Are you or ? Not Applicable Have you received any vaccinations in the last week? NO Vitals: B/P 172/78 Manual Recheck: B/P 148/68 Notify provider and RNs if systolic BP >170, diastolic BP >100, P >100 or O2 sats < 90% Mikala Staley MA [facility] * Ruma Velazquez [...] Yes Signature/Title: Ruma R Yelle, RN RN Bin Worker [facility] [place] documented in this encounter Plan of Treatment Not on file documented as of this encounter Procedures Procedure [...] from the original result were not included. [facility] - Procedure Note Date of Visit: 09/26/2024 [...] the procedure. Diagnosis: Lumbar spondylosis; Lumbar radiculitis/radiculopathy Roller Engraver: Daniel Dunlap MD Anesthesia: none Indications: Angela [...] 7.1 MRI LUMBAR SPINE was done @ [facility] on 02/15/2024 and was reviewed - I [...] DUNLAP MD Pain Management Daniel Dunlap MD [facility] PAIN MANAGEMENT ORDERABLES Final Result documented in [...] Time PHQ-9 Depression Total Score: 0 05/02/19 10:13 AM PRIVATE DETECTIVE documented as of this encounter Care Teams Foil Spooler Relationship Specialty [place] [address] [place] [address] PCP - General Family Medicine 12/24/20 [place] [address] [place] [address] Assigned PCP 01/04/21 Trent Qureshi MD [facility] [address] [place] [address] Orthopaedic Surgery 09/16/21 documented as of this encounter
--- OUTSIDE RECORDS SUMMARY | 2024-10-08 15:30 | XMS_ITS | Encounter Summary ---
Author Organization [place] Address [address] [facility] [place] [address] Care Team Providers Care Bike Shop Manager Name Role Phone Herb Herman MD Primary Care Provider [phone] Herb Herman MD Unavailable Trent Qureshi MD Unavailable [phone] Sammy Villa MD Unavailable Reason for Referral * Consultation (Priority: 1-2 Weeks) - Pending Review Specialty Diagnoses / Procedures Referred By Ambreen allen Referred To Contact Diagnoses TIA (transient ischemic attack) [place] [address] [place] [address] Phone: tel: fax: [facility] [address] [place] [address] Phone: tel: fax: Referral ID Status Reason Start Date Expiration Date V isits Requested Visits Authorized [id number] Pending Review 10/08/2024 10/08/2025 1 1 Question Answer Reason for Referral: Stroke Patient Scheduling Instructions: [facility] will call you to coordinate your care as prescribed by your provider. If you don't hear from a wireless sales representative within 2 business days, please call . Additional Information: series of TIA; was in [facility] Comments Please be aware that coverage of these services is subject to the terms and limitations of your health insurance plan. Call member services at your health plan with any benefit or coverage questions. [facility] will call you to coordinate your care as prescribed by your provider. If you don't hear from a wireless sales representative within 2 business days, please call . Reason for Visit * Reason Comments Hospital F/U Encounter Details Date Type Department Care Team (Late st Contact Info) Description 10/08/2024 3:30 PM CDT Office Visit [address] [address] [place] [address] [place] [address] TIA (transient ischemic attack) (Primary [...] often do you attend chur ch or synagogue services? More than 4 times [...] Answer Date Recorded PHQ-2 Score 6 10/08/2024 [facility] - Occupational Stress Questionnaire Answer Date [...] AM CDT Legal Sex Female 3:11 AM [employer] Gender Identity Female 01/16/2019 8:38 AM CDT Sexual Orientation Choose not to disclose 2021 11:32 AM [employer] Occupation Industry Job Start Date Job End [...] Care Everywhere. * TIA (Transient Ischemic Attack) (Burkinan) documented in this encounter Progress Notes * [...] not follow-up with neurology. - Adult Neurology Certified Medical Technician Referral Chronic kidney disease, stage 3a (H) [...] Questions Roomed by Ki Reese Accompanied by [facility] Hospital Follow-up Visit: Hospital/Long-Term/IP Rehab Facility: [facility] Date of Admission: 10-02-24 Date of [...] Associated Diagnoses Orde r Schedule Adult Neurology Certified Medical Technician Referral Referral Priority: 1-2 Weeks TIA (transient [...] documented as of this encounter Care Teams Bike Shop Manager Relationship Specialty [place] [address] [place] [address] PCP - General Family Medicine 12/24/20 [place] [address] [place] [address] Assigned PCP 01/04/[address] [facility] [address] [place] [address] [id number] Orthopaedic Surgery 09/16/21 Sammy Villa MD [address] [place] [address] [id number] Assigned Neuroscience Provider 10/01/24 documented as of this encounter
--- OUTSIDE RECORDS SUMMARY | 2024-10-18 14:00 | XMS_ITS | Encounter Summary ---
Author Organization [facility] Address [address] [place] [address] Care Team Providers Care Sail Finisher Hand Name Role Phone Herb Herman MD Primary Care Provider [phone] Reason for Referral * PT/OT/ST (Routine) - Authorized Specialty Diagnoses / Procedures Referred By Ambreen allen Referred To Contact Occupational Therapy Diagnoses Right hand weakness Right hand paresthesia Felisha Perez APRN, CNP [address] [place] [address] Phone: tel: fax: Referral ID Status Reason Start Date Expiration Date Visits Requested Visits Authorized [id number] Authorized Specialty Services Required 10/18/2024 1 1 Comments Right hand numbness/weakness, difficulty w. iADL, writing, eval/treat. * Consultation (Routine) - Authorized Specialty Diagnoses / Procedures Referred By Ambreen allen Referred To Contact Physical Therapy Diagnoses Abnormality of gait and mobility History of multiple strokes Felisha Perez APRN, CNP [address] [place] [address] Phone: tel: fax: Referral ID Status Reason Start Date Expiration Date Visits Requested Visits Authorized [id number] Authorized Specialty Services Required 10/18/2024 1 1 [...] APRN, CNP [address] [place] [address] Phone: tel: fax: Referral ID Status Reason Start Date Expiration Date Visits Requested Visits Authorized [id number] Authorized Specialty Services Required 10/18/2024 1 1 Comments Stroke, fluctuating speech changes * (Routine) - Open Specialty Diagnoses / Procedures Referred By Ambreen allen Referred To Contact Diagnoses Speech disturbance, unspecified type History of multiple strokes Procedures MRI BRAIN W/O CON Efren Elena MD [address] [place] [address] Phone: tel: fax: Referral ID Status Reason Start Date Expiration Date Visits Re quested Visits Authorized [id number] Open 01/04/2025 1 1 * (Routine) - Open Specialty Diagnoses / Procedures Referred By Ambreen allen Referred To Contact Diagnoses Speech disturbance, unspecified type History of multiple strokes Procedures ZIO MONITOR REGISTRATION Felisha Perez APRN, CNP [address] [place] [address] Phone: tel: fax: Referral ID Status Reason Start Date Expiration Date Visits Re quested Visits Authorized [id number] Open 10/18/2024 1 1 * (Routine) - Open Specialty Diagnoses / Procedures Referred By Ambreen allen Referred To Contact Diagnoses Speech disturbance, unspecified type History of multiple strokes Procedures ZIO MONITOR REGISTRATION Felisha Perez APRN, CNP [address] [place] [address] Phone: tel: fax: Referral ID Status Reason Start Date Expiration Date Visits Re quested Visits Authorized [id number] Open 10/18/2024 1 1 Reason for Visit * Reason Comments Consultation Stroke Encounter Details Date Type Department Care Team (Late st Contact Info) Description 10/18/2024 2:00 PM CDT Office Visit [facility] [address] [place] [phone] Felisha Perez APRN, CNP [address] [place] [address] Speech disturbance, unspecified type (Primary Dx); Abnormality [...] from the original note were not included. [facility] [address] [place] [address], [address] [place] [address] Neurology Initial Note / Consultation Assessment and Plan: #. Multiple Stroke -- initial sx: garbled speech -- exam: unsteady gait, positive romberg, right hand weakness/altered sensation -- risk factors: HLD, CKD, HTN, elevated BMI, DM -- [facility] records not able to be obtained [...] that her primary care provider is at [facility] until November. No prior occurrences of [...] Resource Strain: High Risk (04/25/2023) Received from [employer] Financial Resource Strain Within the past 12 months, have you or your family members you live with been unable to get utilities (heat, electricity) when it was really needed?: Yes Food Insecurity: Low Risk (04/25/2023) Received from [employer] Food Insecurity Within the past 12 months, did you worry that your food would run out before you got money to buy more?: No Within the past 12 months, did the food you bought just not last and you didn???t have money to getmore?: No Transportation Needs: Low Risk (04/25/2023) Received from [employer] Transportation Needs Within the past 12 months, has lack of transportation kept you from medical appointments, getting your medicines, non-medical meetings or appointments, work, or from getting things that you need?: No Physical Activity: Inactive (06/08/2021) Received from [employer] Exercise Vital Sign Days of Exercise per Week: 0 days Minutes of Exercise per Session: 0 min Stress: No Stress Concern Present (06/08/2021) Received from [employer] [place] of Occupational Health - Occupational Stress Questionnaire Feeling of Stress : Not at all Social Connections: Moderately Integrated (06/08/2021) Received from [employer] Social Connection and Isolation Panel [NHANES] Frequency of Communication with Friends and Family: More than three times a week Frequency of Social Gatherings with Friends and Family: Three times a week Attends Anabaptism Services: More than 4 times per year Active Member of Clubs or Organizations: No Attends Club or Organization Meetings: Not on file Marital Status: Intimate Partner Violence: Low Risk (05/02/2023) Received from [employer] Interpersonal Safety Do you feel physically and emotionally safe where you currently live?: Yes Within the past 12 months, have you been hit, slapped, kicked or otherwise physically hurt by someone?: No Within the past 12 months, have you been humiliated or emotionally abused in other ways by your partner or ex-partner?: No Housing Stability: Low Risk (04/25/2023) Received from [employer] Housing Stability Do you have housing? (Housing is defined as stable permanent housing and does not include staying outside in a car, in a tent, in an abandoned building, in an overnight group home, or couch-surfing.): Yes Are you worried about [...] hypertension documented in this encounter Care Teams Sail Finisher Hand Relationship Specialty [place] [address] [place] [address] PCP - General Family Medicine - 10/18/24 documented as of this encounter
--- OUTSIDE RECORDS SUMMARY | 2024-11-02 09:17 | XMS_ITS | Encounter Summary ---
Author Organization [facility] Address [address] [place] [address] Care Team Providers Care Manager Unix Name Role Phone Daniel Plaza MD Primary Care Provider Daniel Plaza MD Unavailable [phone] Daniel Plaza MD Unavailable [phone] Stan Barnes MD Unavailable Herb Herman MD Primary Care Provider [phone] Hebr Herman MD Unavailable Stan Barnes MD Unavailable [phone] Trent Qureshi MD Unavailable [phone] Sammy Villa MD Unavailable [phone] Encounter Details Date Type Department Care Team (Late st Contact Info) Description 03/01/2011 [facility] [address] [address] Rodolfo Cline Social History Tobacco Use Types Packs/Day Years Used Date Smoking Tobacco: Never Alcohol Use Standard Drinks/Week Comments No 0 (1 standard drink = 0.6 oz pur e alcohol) Comments No Sex and Gender Information Value Date Recorded Sex Assigned at Female 01/16/2019 8:38 AM CDT Legal Sex Female 3:11 AM SUPPLEMENTAL NURSE Gender Identity Female 01/16/2019 8:38 AM CDT Sexual Orientation Choose not to disclose 2021 11:32 AM SUPPLEMENTAL NURSE documented as of this encounter Plan of Treatment Not on file documented as of this encounter Visit Diagnoses Not on filedocumented in this encounter Care Teams Manager Unix Relationship Specialty Start Date End Date Daniel Plaza MD [address] [place] [phone] PCP - General 06/29/10 12/23/20 Daniel Plaza MD [address] [place] [phone] PCP - Assigned PCP 02/05/08 06/13/18 [place] [address] [place] [address] PCP - General Family Medicine 12/24/20 Daniel Plaza MD [address] [place] [phone] Assigned PCP 01/13/12 01/03/21 Stan Barnes MD [address] [place] [address] Assigned Surgical Provider 02/01/20 07/19/20 [place] [address] [place] [address] Assigned PCP 01/04/21 Stan Barnes MD [address] [place] [address] [id number] Assigned Surgical Provider 08/30/21 08/31/23 Trent Qureshi MD [facility] [address] [place] [phone] Orthopaedic Surgery 09/16/21 Sammy Villa MD [address] [place] [address] [id number] Assigned Neuroscience Provider 10/01/24 documented as of this encounter
--- OUTSIDE RECORDS SUMMARY | 2024-11-02 09:17 | XMS_ITS | Encounter Summary ---
Author Organization [facility] Address [address] [place] [address] Care Team Providers Care Transplant Nurse Practitioner Name Role Phone Daniel Torres MD Primary Care Provider Daniel Torres MD Unavailable [phone] Daniel Torres MD Unavailable [phone] Stan Barnes MD Unavailable [phone] Herb Herman MD Primary Care Provider Herb Herman MD Unavailable Stan Barnes MD Unavailable [phone] Trent Qureshi MD Unavailable [phone] Sammy Villa MD Unavailable Encounter Details Date Type Department Care Team (Late st Contact Info) Description 09/08/2007 [facility] [address] [address] Daniel Torres MD [address] [address] DJD ; HYPERLIPIDEMIA Social History Tobacco Use Types Packs/Day Years Used Date Smoking Tobacco: Never Alcohol Use Standard Drinks/Week Comments Yes 0 (1 standard drink = 0.6 oz pur e alcohol) social Comments No Sex and Gender Information Value Date Recorded Sex Assigned at Female 01/16/2019 8:38 AM CDT Legal Sex Female 3:11 AM PULPER OPERATOR Gender Identity Female 01/16/2019 8:38 AM CDT Sexual Orientation Choose not to disclose 2021 11:32 AM PULPER OPERATOR documented as of this encounter Miscellaneous Notes * Telephone Encounter - Vero Carr - 09/08/2007 2:01 PM [facility] Original authorizing provider: Savanna VILLALOBOS would like a refill of the following medications: SIMVASTATIN 80 MG OR TABS [DANIEL TORRES M.D.] CELEBREX 200 MG OR CAPS [DANIEL TORRES M.D.] Preferred pharmacy: [facility] Comment: I have [...] hyperlipidemia documented in this encounter Care Teams Transplant Nurse Practitioner Relationship Specialty Start Date End Date Daniel Torres MD [address] [place] [phone] PCP - General 06/29/10 12/23/20 Daniel Torres MD [address] [place] [phone] PCP - Assigned PCP 02/05/08 06/13/18 [place] [address] [place] [address] PCP - General Family Medicine 12/24/20 Daniel Torres MD [address] [place] [phone] Assigned PCP 01/13/12 01/03/21 Stan Barnes MD [address] [place] [address] Assigned Surgical Provider 02/01/20 07/19/20 [place] [address] [place] [address] Assigned PCP 01/04/21 Stan Barnes MD [address] [place] [address] Assigned Surgical Provider 08/30/21 08/31/23 Trent Qureshi MD [facility] [address] [id number] Orthopaedic Surgery 09/16/21 Sammy Villa MD [address] [facility] [address] [place] [address] Assigned Neuroscience Provider 10/01/24 documented as of this encounter
--- OUTSIDE RECORDS SUMMARY | 2024-11-02 09:17 | XMS_ITS | Encounter Summary ---
Author Organization [facility] Address [address] [place] [address]. [place] [address] Care Team Providers Care Clinical Research Spec Name Role Phone Herb Herman MD Primary Care Provider [phone] Herb Herman MD Unavailable Trent Qureshi MD Unavailable [phone] Sammy Villa MD Unavailable [phone] Encounter Details Date Type Department Care Team (Late st Contact Info) Description 10/24/2024 [facility] [address], [address] [place] [address] Ana Larsen, IRENE Social History Tobacco [...] How often do you attend chur or adventism services? More than 4 times [...] Answer Date Recorded PHQ-2 Score 6 10/08/2024 [facility] [place] [facility] Occupat ional Health - Occupational Stress [...] AM CDT Legal Sex Female 3:11 AM PULLER OUT Gender Identity Female 01/16/2019 8:38 AM CDT Sexual Orientation Choose not to disclose 2021 11:32 AM PULLER OUT Occupation Industry Job Start Date Job End [...] as of this encounter Care Teams Clinical Research Spec Relationship Specialty [place] [address] [place] [address] PCP - General Family Medicine 12/24/20 [place] [address] [place] [address] Assigned PCP 01/04/21 Trent Qureshi MD [facility] [address] [place] [address] [id number] Orthopaedic Surgery 09/16/21 Sammy Villa MD [address] [place] [address] Assigned Neuroscience Provider 10/01/24 documented as of this encounter
--- OUTSIDE RECORDS SUMMARY | 2024-11-02 09:17 | XMS_ITS | Encounter Summary ---
Author Organization [place] Address [address] [place] [address] Care Team Providers Care Bulb Weeder Name Role Phone Herb Herman MD Primary Care Provider Herb Herman MD Unavailable Stan Barnes MD Unavailable + [phone] Trent Qureshi MD Unavailable [phone] Sammy Villa MD Unavailable [phone] Encounter Details Date Type Department Care Team (Late st Contact Info) Description 07/16/2022 [facility] Medical Advice [address] [address] Diane Moreno RN Social History [...] How often do you attend chur or congregation services? More than 4 times per year [...] Answer Date Recorded PHQ-2 Score 0 03/08/2022 [facility] Occupat [facility] - Occupational Stress Questionnaire Answer [...] AM CDT Legal Sex Female 3:11 AM DOOR LINER Gender Identity Female 01/16/2019 8:38 AM CDT Sexual Orientation Choose not to disclose 2021 11:32 AM DOOR LINER Occupation Industry Job Start Date Job End [...] Total Score: 0 03/08/20 22 10:26 AM DOOR LINER documented as of this encounter Care Teams Bulb Weeder Relationship Specialty [place] [address] [place] [address] PCP - General Family Medicine 12/24/20 [place] [address] [place] [address] Assigned PCP 01/04/21 Stan Barnes MD [address] [place] [address] 455495 Assigned Surgical Provider 08/30/21 08/31/23 Trent Qureshi MD [facility] [address] 247005 Orthopaedic Surgery 09/16/21 Sammy Villa MD 420 [facility] 96 [place], [place] [address] Assigned Neuroscience Provider 10/01/24 documented as of this encounter
--- OUTSIDE RECORDS SUMMARY | 2024-11-02 09:17 | XMS_ITS | Encounter Summary ---
Author Organization [place] Address [address] [place] [address] Care Team Providers Care Design Engineer Products Name Role Phone Daniel Plaza MD Primary Care Provider Daniel Plaza MD Unavailable Daniel Plaza MD Unavailable Stan Barnes MD Unavailable [phone] Herb Herman MD Primary Care Provider Herb Herman MD Unavailable Stan Barnes MD Unavailable [phone] Trent Qureshi MD Unavailable [phone] Sammy Villa MD Unavailable Encounter Details Date Type Department Care Team (Late st Contact Info) Description 11/21/2001 Abstract [facility] [address] [address] Daniel Plaza MD [address] [phone] Social History Tobacco Use Types Packs/Day Years Used Date Smoking Tobacco: Never Assessed Comments No Sex and Gender Information Value Date Recorded Sex Assigned at Female 01/16/2019 8:38 AM CDT Legal Sex Female 3:11 AM COOLER DELIVERER Gender Identity Female 01/16/2019 8:38 AM CDT Sexual Orientation Choose not to disclose 2021 11:32 AM COOLER DELIVERER documented as of this encounter Plan of Treatment Not on file documented as of this encounter Visit Diagnoses Not on filedocumented in this encounter Care Teams Design Engineer Products Relationship Specialty Start Date End Date Daniel Plaza MD [address] [place] [phone] PCP - General 06/29/10 12/23/20 Daniel Plaza MD [address] [place] [phone] PCP - Assigned PCP 02/05/08 06/13/18 [place] [address] [place] [address] PCP - General Family Medicine 12/24/20 Daniel Plaza MD [address] [place] [phone] Assigned PCP 01/13/12 01/03/21 Stan Barnes MD [address] [place] [address] Assigned Surgical Provider 02/01/20 07/19/20 [place] [address] [place] [address] Assigned PCP 01/04/21 Stan Barnes MD [address] [place] [address] Assigned Surgical Provider 08/30/21 08/31/23 Trent Qureshi MD [facility] [address] [place] [address] Orthopaedic Surgery 09/16/21 Sammy Villa MD [address] [place] [address] 96 [place] [address] Assigned Neuroscience Provider 10/01/24 documented as of this encounter
--- OUTSIDE RECORDS SUMMARY | 2024-11-02 09:17 | XMS_ITS | Encounter Summary ---
Author Organization [place] Address [address] [place] [address] Care Team Providers Care Hims Manager Name Role Phone Daniel Plaza MD Primary Care Provider Daniel Plaza MD Unavailable Daniel Plaza MD Unavailable Stan Barnes MD Unavailable [phone] Herb Herman MD Primary Care Provider [phone] Herb Herman MD Unavailable Stan Barnes MD Unavailable [phone] Trent Qureshi MD Unavailable [phone] Sammy Villa MD Unavailable Encounter Details Date Type Department Care Team (Late st Contact Info) Description 11/28/2001 Abstract M [facility] [address] [address] Daniel Plaza MD [address] [phone] Social History Tobacco Use Types Packs/Day Years Used Date Smoking Tobacco: Never Assessed Comments No Sex and Gender Information Value Date Recorded Sex Assigned at Female 01/16/2019 8:38 AM CDT Legal Sex Female 3:11 AM WATCH REPAIRER APPRENTICE Gender Identity Female 01/16/2019 8:38 AM CDT Sexual Orientation Choose not to disclose 2021 11:32 AM WATCH REPAIRER APPRENTICE documented as of this encounter Plan of Treatment Not on file documented as of this encounter Visit Diagnoses Not on filedocumented in this encounter Care Teams Hims Manager Relationship Specialty Start Date End Date Daniel Plaza MD [address] [place] [phone] PCP - General 06/29/10 12/23/20 Daniel Plaza MD [address] [place] [phone] PCP - Assigned PCP 02/05/08 06/13/18 [place] [address] [place] [address] PCP - General Family Medicine 12/24/20 Daniel Plaza MD [address] [place] [phone] Assigned PCP 01/13/12 01/03/21 Stan Barnes MD [address] [place] [address] Assigned Surgical Provider 02/01/20 07/19/20 [place] [address] [place] [address] Assigned PCP 01/04/21 Stan Barnes MD [address] [place] [address] Assigned Surgical Provider 08/30/21 08/31/23 Trent Qureshi MD [facility] [address] [place] [address] Orthopaedic Surgery 09/16/21 Sammy Villa MD [address] [place] [address] 96 [place] [address] Assigned Neuroscience Provider 10/01/24 documented as of this encounter
--- OUTSIDE RECORDS SUMMARY | 2024-11-02 09:17 | XMS_ITS | Encounter Summary ---
Author Organization [place] Address [facility] [place] [address] Care Team Providers Care Fisher Trawl Net Name Role Phone Herb Herman MD Primary Care Provider [phone] Herb Herman MD Unavailable Stan Barnes MD Unavailable [phone] Trent Qureshi MD Unavailable [phone] Sammy Villa MD Unavailable Reason for Visit * Reason Onset Date Comments MyChart Communication 07/14/2022 Encounter Details Date Type Department Care Team (Latest Contact Info) Description 07/14/2022 MyC Medical Advice [facility] [phone] [place] [address] [place] [address] [place] [address] MyChart Communication Social History Tobacco [...] How often do you attend chur or anabaptist services? More than 4 times [...] Answer Date Recorded PHQ-2 Score 0 03/08/2022 [facility] of Occupat ional [facility] - Occupational Stress Questionnaire Answer [...] AM CDT Legal Sex Female 3:11 AM CONVALESCENT SITTER Gender Identity Female 01/16/2019 8:38 AM CDT Sexual Orientation Choose not to disclose 2021 11:32 AM CONVALESCENT SITTER Occupation Industry Job Start Date Job End [...] Bueno RN - 07/14/2022 10:04 AM CDT [employer] message sent to patient, reply requested. Virginia Bueno R.N. documented in this encounter Plan of Treatment Not on file documented as of this encounter Visit Diagnoses Not on filedocumented in this encounter Additional Health Concerns Assessment Noted Time PHQ-9 Depression Total Score: 0 03/08/20 10:26 AM CONVALESCENT SITTER documented as of this encounter Care Teams Fisher Trawl Net Relationship Specialty [place] [address] [place] [address] PCP - General Family Medicine 12/24/20 [place] [address] [place] [address] Assigned PCP 01/04/21 Stan Barnes MD [address] [place] [address] Assigned Surgical Provider 08/30/21 08/31/23 Trent Qureshi MD [facility] [address] [place] [address] Orthopaedic Surgery 09/16/21 Sammy Villa MD [address] [place] [address] 222125 Assigned Neuroscience Provider 10/01/24 documented as of this encounter
--- OUTSIDE RECORDS SUMMARY | 2024-11-02 09:17 | XMS_ITS | Encounter Summary ---
Author Organization [place] Address [address] [place] [address] Care Team Providers Care Counter Former Name Role Phone Daniel Plaza MD Primary Care Provider Daniel Plaza MD Unavailable Daniel Plaza MD Unavailable Stan Barnes MD Unavailable [phone] Herb Herman MD Primary Care Provider Herb Herman MD Unavailable Stan Barnes MD Unavailable [phone] Trent Qureshi MD Unavailable [phone] Sammy Villa MD Unavailable Encounter Details Date Type Department Care Team (Late st Contact Info) Description 06/23/2011 MyC Medical Advice [facility] [address] [address] Daniel Plaza MD [address] [phone] Social History Tobacco Use Types Packs/Day Years Used Date Smoking Tobacco: Never Smokeless Tobacco: Never Alcohol Use Standard Drinks/Week Comments No 0 (1 standard drink = 0.6 oz pur e alcohol) Comments No Sex and Gender Information Value Date Recorded Sex Assigned at Female 01/16/2019 8:38 AM CDT Legal Sex Female 3:11 AM NEEDLE VALVE OPERATOR Gender Identity Female 01/16/2019 8:38 AM CDT Sexual Orientation Choose not to disclose 2021 11:32 AM NEEDLE VALVE OPERATOR documented as of this encounter Plan of Treatment Not on file documented as of this encounter Visit Diagnoses Not on filedocumented in this encounter Care Teams Counter Former Relationship Specialty Start Date End Date Daniel Plaza MD [address] [place] [phone] PCP - General 06/29/10 12/23/20 Daniel Plaza MD [address] [place] [phone] PCP - Assigned PCP 02/05/08 06/13/18 [place] [address] [place] [address] PCP - General Family Medicine 12/24/20 Daniel Plaza MD [address] [place] [phone] Assigned PCP 01/13/12 01/03/21 Stan Barnes MD [address] [place] [address] Assigned Surgical Provider 02/01/20 07/19/20 [place] [address] [place] [address] Assigned PCP 01/04/21 Stan Barnes MD [address] [place] [address] 528465 Assigned Surgical Provider 08/30/21 08/31/23 Trent Qureshi MD [facility] [address] [place] [address] 699415 Orthopaedic Surgery 09/16/21 Sammy Villa MD 420 [facility] 96 [place], [place] 226235 Assigned Neuroscience Provider 10/01/24 documented as of this encounter
--- OUTSIDE RECORDS SUMMARY | 2024-11-02 09:17 | XMS_ITS | Encounter Summary ---
Author Organization [place] Address [address] [place] [address] Care Team Providers Care Roller Shop Utility Worker Name Role Phone Herb Herman MD Primary Care Provider [phone] Herb Herman MD Unavailable Trent Qureshi MD Unavailable [phone] Sammy Villa MD Unavailable [phone] Encounter Details Date Type Department Care [...] Answer Date Recorded PHQ-2 Score 6 10/08/2024 [facility] - Occupational Stress Questionnaire [...] AM CDT Legal Sex Female 3:[address] Gender Identity Female 01/16/2019 8:38 AM CDT Sexual Orientation Choose not to disclose 2021 11:[address] 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 file documented as of this encounter Plan of Treatment Not on file documented as of this encounter Visit Diagnoses Not on filedocumented in this encounter Additional Health Concerns Assessment Noted Time PHQ-9 Depression Total Score: 025 3:11 PM CDT documented as of this encounter Care Teams Roller Shop Utility Worker Relationship Specialty [place] [address] [place] [address] PCP - General Family Medicine 12/24/20 [place] [address] [place] [address] Assigned PCP 01/04/21 Trent Qureshi MD [facility] [address] [place] [address] 074135 Orthopaedic Surgery 09/16/21 Sammy Villa MD [address] [place] [address] 96 [place] [address] Assigned Neuroscience Provider 10/01/24 documented as of this encounter
--- OUTSIDE RECORDS SUMMARY | 2024-11-02 09:17 | XMS_ITS | Encounter Summary ---
Author Organization [place] Address [address] [place] [address] Care Team Providers Care Eyelet Machine Operator Name Role Phone Daniel Plaza MD Primary Care Provider Daniel Plaza MD Unavailable Daniel Plaza MD Unavailable Stan Barnes MD Unavailable [phone] Herb Herman MD Primary Care Provider Herb Herman MD Unavailable Stan Barnes MD Unavailable [phone] Trent Stratton MD Unavailable [phone] Sammy Villa MD Unavailable Encounter Details Date Type Department Care Team (Late st Contact Info) Description 03/01/2003 [facility] [address] [address] Daniel Plaza MD [address] [phone] OP REPT (Primary Dx) Social History Tobacco Use Types Packs/Day Years Used Date Smoking Tobacco: Never Passive Smoke Exposure: Never Smokeless Tobacco: Never Alcohol Use Standard Drinks/Week Comments Never 0 (1 standard drink = 0.6 oz pur e alcohol) Comments No Sex and Gender Information Value Date Recorded Sex Assigned at Female 01/16/2019 8:38 AM CDT Legal Sex Female 3:11 AM ASSOCIATE DRAFTER Gender Identity Female 01/16/2019 8:38 AM CDT Sexual Orientation Choose not to disclose 2021 11:32 AM ASSOCIATE DRAFTER 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 file documented as of this encounter Progress Notes * 03/01/2003 11:59 PM [id number] 00:00 Operative Report-[facility] TRENT STRATTON () [Entered: [...] STRATTON MD D: 06:24 MT: sb Document: [id number] [place], [place] Name: CEFERINOAMILCARMICHAEL OPERATIVE REPORT Page 2 of 2 LCN: 57 DSC: [place], [place] Name: WILLIAMPARIS MICHAEL Saba MR#: : Procedure Date: -98 1945 03/01/2003 Surgeon: TRENT STRATTON MD OPERATIVE REPORT Page 1 of 2 Electronically filed by Hu Porter 03/06/2003 10:43 AM documented in this encounter Plan of Treatment Not on file documented as of this encounter Visit Diagnoses Diagnosis OP REPT- Primary documented in this encounter Care Teams Eyelet Machine Operator Relationship Specialty Start Date End Date Daniel Plaza MD [address] [place] [phone] PCP - General 06/29/10 12/23/20 Daniel Plaza MD [address] [place] [phone] PCP - Assigned PCP 02/05/08 06/13/18 [place] [address] [place] [address] PCP - General Family Medicine 12/24/20 Daniel Plaza MD 600 [address], [place] [address] Assigned PCP 01/13/12 01/03/21 Stan Barnes MD [address] [place] [address] Assigned Surgical Provider 02/01/20 07/19/20 [place] [address] [place] [address] Assigned PCP 01/04/21 Stan Barnes MD [address] [place] [address] Assigned Surgical Provider 08/30/21 08/31/23 Trent Stratton MD [facility] [address] [place] [address] Orthopaedic Surgery 09/16/21 Sammy Villa MD [address] [place] [address] Assigned Neuroscience Provider 10/01/24 documented as of this encounter
--- OUTSIDE RECORDS SUMMARY | 2024-11-02 09:17 | XMS_ITS | Encounter Summary ---
Author Organization [place] Address [address] [place] [address] Care Team Providers Care Blast Furnace Blower Name Role Phone Daniel Plaza MD Primary Care Provider [phone] Daniel Plaza MD Unavailable Daniel Plaza MD Unavailable Stan Barnes MD Unavailable [phone] Herb Herman MD Primary Care Provider Herb Herman MD Unavailable Stan Barnes MD Unavailable [phone] Trent Qureshi MD Unavailable [phone] Sammy Villa MD Unavailable Encounter Details Date Type Department Care Team (Latest Contact Info) Description 01/24/2016 [facility] [place] [facility] [address] [address] Daniel Plaza MD [address] [phone] Spinal stenosis of lumbar region [...] AM CDT Legal Sex Female 3:11 AM PASTE PLANT SUPERVISOR Gender Identity Female 01/16/2019 8:38 AM CDT Sexual Orientation Choose not to disclose 2021 11:32 AM PASTE PLANT SUPERVISOR documented as of this encounter Plan of Treatment Not on file documented as of this encounter Visit Diagnoses Diagnosis Spinal stenosis of lumbar region with neurogenic claudication- Primary Spinal stenosis, lumbar region, with neurogenic claudication documented in this encounter Additional Health Concerns Assessment Noted Time PHQ-9 Depression Total Score: 0 12/23/19 16 7:14 AM CDT documented as of this encounter Care Teams Blast Furnace Blower Relationship Specialty Start Date End Date Daniel Plaza MD [address] [place] [phone] PCP - General 06/29/10 12/23/20 Daniel Plaza MD [address] [place] [phone] PCP - Assigned PCP 02/05/08 06/13/18 [place] [address] [place] [address] PCP - General Family Medicine 12/24/20 Daniel Plaza MD [address] [place] [phone] Assigned PCP 01/13/12 01/03/21 Stan Barnes MD 9 [place] [address] Assigned Surgical Provider 02/01/20 07/19/20 [place] [address] [place] [address] Assigned PCP 01/04/21 Stan Barnes MD [address] [place] [address] 228605 Assigned Surgical Provider 08/30/21 08/31/23 Trent Qureshi MD [facility] [address] [place] [address] 584395 Orthopaedic Surgery 09/16/21 Sammy Villa MD [address] [place] [address] 96 [place], [place] 878145 Assigned Neuroscience Provider 10/01/24 documented as of this encounter
--- OUTSIDE RECORDS SUMMARY | 2024-11-02 09:17 | XMS_ITS | Encounter Summary ---
Author Organization [place] Address [address] [place] [address] Care Team Providers Care Coastal Tug Mate Name Role Phone Daniel Plaza MD Primary Care Provider [phone] Daniel Plaza MD Unavailable Daniel Plaza MD Unavailable [phone] Stan Barnes MD Unavailable [phone] Herb Herman MD Primary Care Provider Herb Herman MD Unavailable Stan Barnes MD Unavailable [phone] Trent Qureshi MD Unavailable [phone] Sammy Villa MD Unavailable Encounter Details Date Type Department Care Team (Late st Contact Info) Description 05/18/2007 MyC Medical Advice [facility] [address] [address] Daniel Plaza MD [address] [phone] Social History Tobacco Use Types Packs/Day Years Used Date Smoking Tobacco: Never Alcohol Use Standard Drinks/Week Comments Yes 0 (1 standard drink = 0.6 oz pur e alcohol) social Comments No Sex and Gender Information Value Date Recorded Sex Assigned at Female 01/16/2019 8:38 AM CDT Legal Sex Female 3:11 AM SIMULATION DEVELOPER Gender Identity Female 01/16/2019 8:38 AM CDT Sexual Orientation Choose not to disclose 2021 11:32 AM SIMULATION DEVELOPER documented as of this encounter Plan of Treatment Not on file documented as of this encounter Visit Diagnoses Not on filedocumented in this encounter Care Teams Coastal Tug Mate Relationship Specialty Start Date End Date Daniel Plaza MD [address] [place] [phone] PCP - General 06/29/10 12/23/20 Daniel Plaza MD [address] [place] [phone] PCP - Assigned PCP 02/05/08 06/13/18 [place] [address] [place] [address] PCP - General Family Medicine 12/24/20 Daniel Plaza MD [address] [place] [phone] Assigned PCP 01/13/12 01/03/21 Stan Barnes MD 9 [place] [address] Assigned Surgical Provider 02/01/20 07/19/20 [place] [address] [place] [address] Assigned PCP 01/04/21 Stan Barnes MD [address] [place] [address] Assigned Surgical Provider 08/30/21 08/31/23 Trent Qureshi MD [facility] [address] 331475 Orthopaedic Surgery 09/16/21 Sammy Villa MD 420 [facility] 96 [place] [address] Assigned Neuroscience Provider 10/01/24 documented as of this encounter
--- OUTSIDE RECORDS SUMMARY | 2024-11-02 09:17 | XMS_ITS | Encounter Summary ---
Author Organization [place] Address [address] [place] [address] Care Team Providers Care Bank Teller Name Role Phone Daniel Plaza MD Primary Care Provider Daniel Plaza MD Unavailable [phone] Daniel Plaza MD Unavailable Stan Barnes MD Unavailable [phone] Herb Herman MD Primary Care Provider [phone] Herb Herman MD Unavailable Stan Barnes MD Unavailable [phone] Trent Qureshi MD Unavailable [phone] Sammy Villa MD Unavailable Encounter Details Date Type Department Care Team (Late st Contact Info) Description 01/31/2006 [facility] Medical Advice [facility] [address] [address] Daniel Plaza MD [address] [phone] Social History Tobacco Use Types Packs/Day Years Used Date Smoking Tobacco: Never Alcohol Use Standard Drinks/Week Comments Yes 0 (1 standard drink = 0.6 oz pur e alcohol) social Comments No Sex and Gender Information Value Date Recorded Sex Assigned at Female 01/16/2019 8:38 AM CDT Legal Sex Female 3:11 AM REMANUFACTURING TECHNICIAN Gender Identity Female 01/16/2019 8:38 AM CDT Sexual Orientation Choose not to disclose 2021 11:32 AM REMANUFACTURING TECHNICIAN documented as of this encounter Plan of Treatment Not on file documented as of this encounter Visit Diagnoses Not on filedocumented in this encounter Care Teams Bank Teller Relationship Specialty Start Date End Date Daniel Plaza MD [address] [place] [phone] PCP - General 06/29/10 12/23/20 Daniel Plaza MD [address] [place] [phone] PCP - Assigned PCP 02/05/08 06/13/18 [place] [address] [place] [address] PCP - General Family Medicine 12/24/20 Daniel Plaza MD [address] [place] [phone] Assigned PCP 01/13/12 01/03/21 Stan Barnes MD 9 [place] [address] Assigned Surgical Provider 02/01/20 07/19/20 [place] [address] [place] [address] Assigned PCP 01/04/21 Stan Barnes MD [address] [place] [address] Assigned Surgical Provider 08/30/21 08/31/[address] [facility] [address] [phone] Orthopaedic Surgery 09/16/21 Sammy Villa MD 420 [facility] 96 [place] [address] Assigned Neuroscience Provider 10/01/24 documented as of this encounter
--- OUTSIDE RECORDS SUMMARY | 2024-11-02 09:17 | XMS_ITS | Encounter Summary ---
Author Organization [place] Address [facility] [place] [address] Care Team Providers Care Sand Car Worker Name Role Phone Herb Herman MD Primary Care Provider [phone] Herb Herman MD Unavailable Stan Barnes MD Unavailable [phone] Trent Qureshi MD Unavailable [phone] Sammy Villa MD Unavailable [phone] Reason for Visit * Reason Onset Date Comments MyChart Communication 01/06/2023 Encounter Details Date Type Department Care Team (Latest Contact Info) Description 01/06/2023 MyC Medical Advice [facility] [address] [place] [phone] [place] [address] [place] [address] MyChart Communication Social History Tobacco [...] How often do you attend chur or temple services? More than 4 times [...] Answer Date Recorded PHQ-2 Score 0 08/02/2022 [facility] [place] [facility] - Occupational Stress [...] AM CDT Legal Sex Female 3:11 AM CHEF & OWNER Gender Identity Female 01/16/2019 8:38 AM CDT Sexual Orientation Choose not to disclose 2021 11:32 AM CHEF & OWNER Occupation Industry Job Start Date Job End [...] documented as of this encounter Care Teams Sand Car Worker Relationship Specialty [place] [address] [place] [address] PCP - General Family Medicine 12/24/20 [place] [address] [place] [address] Assigned PCP 01/04/21 Stan Barnes MD [address] [place] [address] Assigned Surgical Provider 08/30/21 08/31/23 Trent Qureshi MD [facility] [address] [place] [address] Orthopaedic Surgery 09/16/21 Sammy Villa MD [address] [place] [address] Assigned Neuroscience Provider 10/01/24 documented as of this encounter
--- OUTSIDE RECORDS SUMMARY | 2024-11-02 09:18 | XMS_ITS | Encounter Summary ---
Author Organization [place] Address [facility] [place] [address] Care Team Providers Care Lockstitch Zipper Setter Name Role Phone Herb Herman MD Primary Care Provider [phone] Herb Herman MD Unavailable Stan Barnes MD Unavailable [phone] Trent Qureshi MD Unavailable [phone] Sammy Villa MD Unavailable [phone] Encounter Details Date Type Department Care Team (Late st Contact Info) Description 08/04/[address] [facility] [id number] [place] [phone] [place] [address] [place] [address] Social History Tobacco Use Types [...] often do you attend chur ch or zoroastrian services? More than 4 times per year 06/08/2021 Do you belong to any clubs o r organizations such as holiness groups, unions, fraternal or athletic groups, or [...] Date Recorded PHQ-2 Score 0 06/24/2021 [facility] [...] AM CDT Legal Sex Female 3:11 AM MACHINING ASSOCIATE Gender Identity Female 01/16/2019 8:38 AM CDT Sexual Orientation Choose not to disclose 2021 11:32 AM MACHINING ASSOCIATE Occupation Industry Job Start Date Job [...] Total Score: 0 06/10/19 22 7:01 AM MACHINING ASSOCIATE documented as of this encounter Care Teams Lockstitch Zipper Setter Relationship Specialty [place] [address] [place] [address] PCP - General Family Medicine 12/24/20 [place] [address] [place] [address] Assigned PCP 01/04/21 Stan Barnes MD [address] [place] [address] [id number] Assigned Surgical Provider 08/30/21 08/31/23 Trent Qureshi MD [facility] [address] [place] [address]015 Orthopaedic Surgery 09/16/21 Sammy Villa MD [address] [place] [address] [address] [place], [place] [address] Assigned Neuroscience Provider 10/01/24 documented as of this encounter
--- OUTSIDE RECORDS SUMMARY | 2024-11-02 09:18 | XMS_ITS | Encounter Summary ---
Author Organization [place] Address [address] [place] [address]. [place] [address] Care Team Providers Care Manager Insurance Name Role Phone Herb Herman MD Primary Care Provider Herb Herman MD Unavailable Stan Barnes MD Unavailable [phone] Trent Qureshi MD Unavailable [phone] Sammy Villa MD Unavailable Encounter Details Date Type Department Care Team (Late st Contact Info) Description 05/09/2023 MyC Medical Advice [facility] [address] [address] Stan Barnes MD [address] [place] [address] Social History Tobacco Use Types Packs/Day [...] Answer Date Recorded PHQ-2 Score 0 05/02/2023 [facility] - Occupational Stress Questionnaire [...] AM CDT Legal Sex Female 3:11 AM HELICOPTER MECHANIC Gender Identity Female 01/16/2019 8:38 AM CDT Sexual Orientation Choose not to disclose 2021 11:32 AM HELICOPTER MECHANIC 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 file documented as of this encounter Plan of Treatment Not on file documented as of this encounter Visit Diagnoses Not on filedocumented in this encounter Additional Health Concerns Assessment Noted Time PHQ-9 Depression Total Score: 0 05/02/19 24 10:52 AM HELICOPTER MECHANIC documented as of this encounter Care Teams Manager Insurance Relationship Specialty [place] [address] [place] [address] PCP - General Family Medicine 12/24/20 [place] [address] [place] [address] Assigned PCP 01/04/21 Stan Barnes MD [address] [place] [address] Assigned Surgical Provider 08/30/21 08/31/23 Trent Qureshi MD [facility] [address] [place] [address] [phone] Orthopaedic Surgery 09/16/21 Sammy Villa MD [address] [place] [address] [address] [place] [address] Assigned Neuroscience Provider 10/01/24 documented as of this encounter
--- OUTSIDE RECORDS SUMMARY | 2024-11-02 09:18 | XMS_ITS | Encounter Summary ---
Author Organization [place] Address [address] [place] [address] Care Team Providers Care Housekeeper Supervisor Name Role Phone Herb Herman MD Primary Care Provider Herb Herman MD Unavailable Stan Barnes MD Unavailable [phone] Trent Qureshi MD Unavailable [phone] Sammy Villa MD Unavailable [phone] Encounter Details Date Type Department Care Team (Late st Contact Info) Description 07/23/2021 MyC Medical Advice [address] [phone] Brooke Barnes Social History Tobacco [...] Answer Date Recorded PHQ-2 Score 0 06/24/2021 [facility] - Occupational Stress Questionnaire Answer Date [...] AM CDT Legal Sex Female 3:11 AM HARNESS PLACER Gender Identity Female 01/16/2019 8:38 AM CDT Sexual Orientation Choose not to disclose 2021 11:32 AM HARNESS PLACER Occupation Industry Job Start Date Job End [...] Total Score: 0 06/10/19 22 7:01 AM HARNESS PLACER documented as of this encounter Care Teams Housekeeper Supervisor Relationship Specialty [place] [address] [place] [address] PCP - General Family Medicine 12/24/20 [place] [address] [place] [address] Assigned PCP 01/04/21 Stan Barnes MD [address] [place] [address] Assigned Surgical Provider 08/30/21 08/31/23 Trent Qureshi MD [facility] [address] [place] [address] Orthopaedic Surgery 09/16/21 Sammy Villa MD [address] [place] [address] Assigned Neuroscience Provider 10/01/24 documented as of this encounter
--- OUTSIDE RECORDS SUMMARY | 2024-11-02 09:18 | XMS_ITS | Encounter Summary ---
Author Organization [place] Address [address] [place] [address]. [place] [address] Care Team Providers Care Automotive Sales Manager Name Role Phone Herb Herman MD Primary Care Provider [phone] Herb Herman MD Unavailable Stan Barnes MD Unavailable [phone] Trent Qureshi MD Unavailable [phone] Sammy Villa MD Unavailable [phone] Reason for Visit * Reason Onset Date Comments Medication Request 07/13/2021 Encounter Details Date Type Department Care Team (Late st Contact Info) Description 07/13/[address] [facility] [address] [place] [phone] [place] [id number] [place] [address] Medication Request Social History Tobacco Use [...] Answer Date Recorded PHQ-2 Score 0 06/24/2021 [facility] - [...] CDT Legal Sex Female 3:11 AM BUSINESS SUPPORT ASSISTANT Gender Identity Female 01/16/2019 8:38 AM CDT Sexual Orientation Choose not to disclose 2021 11:32 AM BUSINESS SUPPORT ASSISTANT Occupation Industry Job Start Date Job [...] Score: 0 06/10/19 22 7:01 AM BUSINESS SUPPORT ASSISTANT documented as of this encounter Care Teams Automotive Sales Manager Relationship Specialty [place] [address] [place] [address] PCP - General Family Medicine 12/24/20 [place] [address] [place] [address] Assigned PCP 01/04/21 Stan Barnes MD [address] [place] [address] Assigned Surgical Provider 08/30/21 08/31/23 Trent Qureshi MD [facility] [address] [place] [address] Orthopaedic Surgery 09/16/21 Sammy Villa MD [address] [place] [address] Assigned Neuroscience Provider 10/01/24 documented as of this encounter
--- OUTSIDE RECORDS SUMMARY | 2024-11-02 09:18 | XMS_ITS | Clinical Summary ---
Author Organization [facility] Address [address] [place] [address] Care Team Providers Care Marketing Operations Manager Name Role Phone Herb Herman MD Primary Care Provider Herb Herman MD Unavailable Trent Qureshi MD Unavailable [phone] [facility] bang MD Unavailable [phone] Allergies Active Allergy Reactions Criticality Noted [...] tablet 3 025 Active vitamin D2 (ERGOCALCIFEROL) 77940 units (1250 mcg) capsuleIndication s:Type 2 diabetes [...] pain 120 tablet 5 025 2024 Discontinued Active Problems Patient Care Coordination No te [...] (01/02/2016): Seen incidentally on CT done at [place] Major 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 6 Spinal [...] to review. 03/01/2011 Full code 03/08/2011 [facility] 12/15/2010 09/26/2023 Overview (07/17/2012): X DX V65.8 REPLACED WITH 36090 [facility] (07/17/2012) Major 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 11/05/2004 05/03/2023 Encounters Date Type Department Care Team Description 10/24/2024 MyC Medical Advice [facility] [address], [address] [place] [phone] Ana Larsen RN 10/08/2024 3:30 PM CDT Office Visit [address] [phone] Herb Herman MD TIA (transient ischemic attack) (Primary Dx); Chronic kidney disease, stage 3a (H); Hyperlipidemia LDL goal <100; Essential hypertension; Adjustment disorder with anxious mood 10/08/2024 Travel 09/26/2024 10:15 AM CDT Radiology Injection Office Visit [facility] [place] [address] [facility] [address] [place] [address] Sammy Villa MD Burton, Annie L, MD Lumbar radiculopathy (Primary Dx); Lumbar stenosis with neurogenic claudication 09/26/2024 Travel 09/23/[address] [address] Herb Herman MD Medication Refill 09/20/2024 Telephone [facility] [place] [address] [facility] [address] [place] [address] [facility] Procedure (L3-4 or L4-5 Interlaminar ARTHUR) 09/19/2024 2:20 PM CDT Office Visit [facility] [address] [facility] [address] [place] [phone] Douglas Hernandez MD Helland, Logan C, MD Lumbar stenosis with neurogenic claudication (Primary Dx); Chronic bilateral low back pain with bilateral sciatica 09/19/2024 MyC Medical Advice [facility] [address], [address] [place] [address] Ana Larsen RN 09/19/2024 Travel 09/19/2024 PRE VISIT [facility] [address] [place] [address] Sammy Villa MD Previsit 09/11/2024 Transcribe Orders GENERIC EXTERNAL DATA DEPARTMENT Douglas Hernandez MD Low back pain (Primary Dx) 09/10/2024 12:05 AM CDT Ancillary Procedure [facility] [address] [place] [phone] Non-Fv Credentialed Provider, Radiology 09/10/2024 Ancillary Procedure [facility] [address] [place] [phone] Non-Fv Credentialed Provider, Radiology 09/10/2024 Medical Correspondence [facility] Information Management [address] [place] [address] [address] [place] [address] Scan, Non-Provider from Last 3 Months Immunizations [...] Brother 2 Alive Father Mother Paternal Grandfather [place] Sister Alive lashanda knee replace ments Son [...] Answer Date Recorded PHQ-2 Score 6 10/08/2024 [facility] - Occupational Stress [...] CDT Legal Sex Female 3:11 AM COLOR STRAINER Gender Identity Female 01/16/2019 8:38 AM CDT Sexual Orientation Choose not to disclose 2021 11:32 AM COLOR STRAINER Occupation Industry Job Start Date Job End [...] 09/19/2024 1:43 PM CDT Plan of Treatment Health Maintenance [...] COLONOGRAPHY Discontinued FLEX SIG Discontinued HPV VACCINE (No Doses Required) Completed MENINGITIS VACCINE Aged Out No longer eligible based on patient's age to complete this topic sDNA (Cologuard) Discontinued Medical Devices Implanted Type Area Mobile Web Application Developer Device Identifier Shelf Expiration Date Model / Serial / Lot Imp Scr Zim 6.5x30mm Acet Cup Self Tap [id number] [phone] - [id number] Implanted:Qty : 1 on 09/21/2021 by Anderson George MD at [facility] Metallic Hardware/Anc hor Right: Hip [employer] 06/19/203140-8066-007- 30 / / [id number] Imp Scr Zim 6.5x30mm Acet Cup Self Tap [id number] [phone] - [id number] Implanted:Qty : 1 on 12/21/2021 by Anderson George MD at [facility] Metallic Hardware/Anc hor Left: Hip [employer] 06/19/203124-7690-977- 30 / / [id number] Imp Shell Biom G7 Acetab Pps Billy Hole 52mm Sz E [id number] - [id number] Implanted:Qty : 1 on 09/21/2021 by Anderson George MD at [facility] Total Joint Component/In sert Right: Hip [employer] 07/10/2031 [id number] / / [id number] Liner Actb G7 E 36mm Lngvt Hip Strl Lum Lf [id number] - [id number] Implanted:Qty : 1 on 09/21/2021 by Anderson George MD at [facility] Total Joint Component/In sert Right: Hip [employer] 12/16/[id number] / / [id number] Imp Stem Femoral Biom Echo Std Offset 63t226am [id number] - [id number] Implanted:Qty : 1 on 09/21/2021 by Anderson George MD at [facility] Total Joint Component/In sert Right: Hip [employer] 01/16/2031 [id number] / / [id number] Head Fem -3mm Ofst 36mm Hip Actb Mdlr Ty 1 Blx D [id number] - [id number] Implanted:Qty : 1 on 09/21/2021 by Anderson George MD at [facility] Total Joint Component/In sert Right: Hip [employer] 06/23/2031 650-0660 / / [id number] Imp Shell Biom G7 Acetab Pps Billy Hole 52mm Sz E [id number] - [id number] Implanted:Qty : 1 on 12/21/2021 by Anderson George MD at [facility] Total Joint Component/In sert Left: Hip [employer] 10/30/2031 [id number] / / [id number] Imp Stem Femoral Biom Echo Std Offset [id number] - [id number] Implanted:Qty : 1 on 12/21/2021 by Anderson George MD at [facility] Total Joint Component/In sert Left: Hip [employer] 08/25/2031 [id number] / / [id number] Liner Actb G7 E 36mm Lngvt Hip Strl Lum Lf [id number] - [id number] Implanted:Qty : 1 on 12/21/2021 by Anderson George MD at [facility] Total Joint Component/In sert Left: Hip [employer] 08/30/2026 [id number] / / [id number] Head Fem -3mm Ofst 36mm Hip Actb Mdlr Ty 1 Blx D 650-08096 - [id number] Implanted:Qty : 1 on 12/21/2021 by Anderson George MD at [facility] Total Joint Component/In sert Left: Hip [employer] 06/30/2031 [id number] / / [id number] Procedures Procedure Name Priority Date/Time Associated Diagnosis [...] FREE T4 REFLEX Add-On 05/02/2024 11:07 AM COLOR STRAINER Acquired hypothyroidism HEMOGLOBIN A1C Routine 05/02/2024 11:07 AM COLOR STRAINER Type 2 diabetes mellitus with diabetic neuropathy, [...] C FOOT EXAM Routine 04/27/2013 10:15 AM COLOR STRAINER Type 2 diabetes, HbA1C goal < 7% (H) PHQ-9 DEPRESSION SCREENING ORDER Routine 03/08/2011 from Last 3 Months or Most Recently Relevant to Health Maintenance Results * MRI Imaging - HIM Scan (10/05/2024 12:00 AM CDT) Only the most recent of2 resultswithin the time period is included. Anatomical Region Laterality Modality Other 10/05/2024 us Provider Outside [facility] MRI ORDERABLES Final Result * CT Imaging - HIM Scan (10/02/2024 12:00 AM CDT) Only the most recent of2 resultswithin the time period is included. Anatomical Region Laterality Modality Computed Tomogra phy 10/02/2024 us Provider Outside [facility] CT ORDERABLES Final Result * PAIN Caudal Epidural Injection (09/26/2024 10:40 AM CDT) Anatomical Region Laterality Modality Radio Fluoroscop y Narrative 09/26/2024 10:53 AM CDT Table formatting from the original result was not included. Images from the original result were not included. [facility] - Procedure [...] the procedure. Diagnosis: Lumbar spondylosis; Lumbar radiculitis/radiculopathy Card Lacer Jacquard: Daniel Dunlap MD Anesthesia: none Indications: Angela [...] 7.1 MRI LUMBAR SPINE was done @ [facility] on 02/15/2024 and was reviewed [...] evaluation. DANIEL DUNLAP MD Pain Management Daniel Dunalp MD IMG PAIN MANAGEMENT ORDERABLES Final Result * XR External Imaging Spine (09/10/2024 12:05 AM CDT) Only the most recent of2 resultswithin the time period is included. Narrative Service Account, Ob Stork - 09/13/2024 12:24 PM CDT Images were obtained from an external facility. Click PACS Images hyperlink to view images. Textual results have been scanned into the media tab. Radiology Non-Fv Credentialed Provider IMG EXTER NAL IMAGING ORDERABLES Final Result * TSH with free T4 reflex (05/02/2024 11:07 AM COLOR STRAINER) TSH 1.54 0.30 - 4.20 uIU/mL 05/03/2024 11:22 AM COLOR STRAINER [facility] Blood BLOOD SPECIMEN / Unknown Venipuncture / Unknown 05/02/2024 11:07 AM COLOR STRAINER 05/02/2024 11:07 AM COLOR STRAINER Herb Herman MD LAB - BLOOD ORDERABLES Final Res ult [facility] [address] [facility] [place] [address], [facility] * (ABNORMAL) HEMOGLOBIN A1C (05/02/2024 11:07 AM COLOR STRAINER) Estimated Average Glucose 157(H) <117 mg/dL 05/02/2024 11:12 AM [facility] Hemoglobin A1C 7.1(H) 0.0 - 5.6 % 05/02/2024 11:12 AM [facility] Comment: Normal <5.7% Prediabetes 5.7-6.4% Diabetes 6.5% or higher Note: Adopted from ADA consensus guidelines. Blood BLOOD SPECIMEN / Unknown Venipuncture / Unknown 05/02/2024 11:07 AM COLOR STRAINER 05/02/2024 11:07 AM COLOR STRAINER Herb Herman MD LAB - BLOOD ORDERABLES Final Res ult LABORATORY [facility] [address] [facility] Lab (no room number, 1st floor of clinic) [place] [address], [facility] * Albumin Random Urine Quantitative with Creat Ratio (08/01/2023 9:56 AM CDT) Pathologist [facility] Creatinine Urine mg/dL 167.0 mg/dL 08/01/2023 8:05 [...] control, and institution of therapy with an yjskeomhotg-qexovdhhkm-rngpeo (TIFFANY) inhibitor (if the patient can tolerate it). Urine MID-STREAM URINE SPECIMEN / Unknown Non-blood Collection / Unknown 08/01/2023 9:56 AM CDT 08/01/2023 9:56 AM CDT Herb Herman MD LAB - URINE ORDERABLES Final Res ult [facility] [place] [facility] [address] [facility], [address] [phone] * ALT (08/01/2023 9:51 AM CDT) [facility] ALT 12 0 - 50 U/L 08/01/2023 5:5 4 PM CDT [facility] Blood BLOOD SPECIMEN / Unknown Venipuncture / Unknown 08/01/2023 9:51 AM CDT 08/01/2023 9:51 AM CDT us Herb Herman MD LAB - BLOOD ORDERABLES Final Res ult [facility] [address] [facility], [address] [phone] * (ABNORMAL) Basic metabolic panel (Ca, Cl, CO2, Creat, Gluc, K, Na, BUN) (08/01/2023 9:51 AM CDT) [facility] Sodium 139 135 - 145 mmol/L 08/01/2023 [...] BLOOD ORDERABLES Final Res ult [facility] [place] [facility] [address] [facility], [address] [phone] * [place] Screening [...] cancer screen (FIT) (06/29/2023 9:00 AM CDT) [facility] Signature Occult Blood Screen FIT Negative Negative 07/06/2023 10:59 AM CDT SPECIALTY CORE/PROT/END O Stool RECTAL CONTENTS / Unknown Non-blood Collection / Unknown 06/29/2023 9:00 AM CDT 07/05/2023 1:19 PM CDT Herb Herman MD LAB - STOOLS ORDERABLES Final Re sult [facility] SPECIALTY CORE/PROT/ENDO [facility] Specialty Core/Prot/Endo [address], [address] [place] [address] * Eye Exam - HIM Scan (03/11/2023) RETINOPATHY UNKNOWN Narrative Johnson Christina L. - 03/11/2023 See encounter dated 05/03/2023 us [...] LAB - BLOOD ORDERABLES Final Res ult U LABORATORY [facility] [place] [facility] [address] [facility], [address] [place] [address], [facility] [phone] * (ABNORMAL) Hemoglobin (01/18/2022 7:30 AM CDT) [facility] Signature Hemoglobin 10.0(L) 11.7 - 15.7 g/dL 01/18/2022 7:52 AM CDT LABORATORY Blood STRUCTURE OF LEFT UPPER LIMB / Unknown Venipuncture / Unknown 01/18/2022 7:30 AM CDT 01/18/2022 7:43 AM CDT us Anderson George MD LAB - BLOOD ORDERABL ES Final Result LABORATORY [facility] [address] floor, [address] [place] [address], [place] [phone] * DX Hip/Pelvis/Spine w Lat Fraction Kath (07/21/2017 9:14 AM CDT) Anatomical Region Laterality Modality Dexa Bone Mineral Den sity Narrative 07/25/2017 10:30 AM CDT BONE DENSITOMETRY [facility] [address], [place] [address] 07/21/2017 PATIENT: Angela Lamar CHART: [id number] : 1945 AGE: [age] year old SEX: female REFERRING PROVIDER: Daniel Plaza MD PROCEDURE: Bone density scanning was performed using DXA technology of the lumbar spine and hip. Scanning was performed on a pocketfungames scanner. Reporting is completed in the form [...] to another DXA performed on the same pocketfungames machine on 03/24 and 07/16. LATERAL VERTEBRAL ASSESSMENT Procedure: Vertebral fracture assessment was performed in the lateral decubitus position using a pocketfungames densitometer. Indications for VFA: none listed Confounding [...] been established for newborns, infants, and children [facility] Blood specimen (specimen) 09/23/2016 6:20 PM CDT 09/23/2016 6:21 PM CDT us Daniel Plaza MD LAB - BLOOD ORDERABLES Final Result [address] [address] * PHQ-9 DEPRESSION SCREENING ORDER (03/08/2011) us Provider Abstract OTHER Final Result from Last 3 Months or Most Recently Relevant to Health Maintenance Insurance MEDICARE Rentalutions MEDICARE Rentalutions Advance Directives For more information, please contact: [phone] * Full Code (Latest Code Status on [...] patie nt/ legal decision maker Care Teams Marketing Operations Manager Relationship Specialty [place] [address] [place] [address] PCP - General Family Medicine 12/24/20 [place] [address] [place] [address] Assigned PCP 01/04/[address] [facility] [address] [place] [id number] Orthopaedic Surgery 09/16/21 Sammy Villa MD [address] [place] [address] [address] [place], [place] [phone] Assigned Neuroscience Provider 10/01/24
--- OUTSIDE RECORDS SUMMARY | 2024-11-02 09:18 | XMS_ITS | Encounter Summary ---
Author Organization [place] Address [address] [place] [address]. [place] [address] Care Team Providers Care Camp Housekeeper Name Role Phone Herb Herman MD Primary Care Provider Herb Herman MD Unavailable Trent Qureshi MD Unavailable [phone] Reason for Visit * Reason Comments Medication Refill Encounter Details Date Type Department Care Team (Late st Contact Info) Description 09/23/[address] [address] [place] [address] [place] [address] Medication Refill Social History Tobacco [...] do you attend [facility] or adventist services? More than 4 [...] Answer Date Recorded PHQ-2 Score 0 05/02/2024 [facility]at [facility] [...] CDT Legal Sex Female 3:11 AM REGIONAL DIRECTOR OF FINANCE Gender Identity Female 01/16/2019 8:38 AM CDT Sexual Orientation Choose not to disclose 2021 11:32 AM REGIONAL DIRECTOR OF FINANCE Occupation Industry Job Start Date Job End [...] Total Score: 0 05/02/19 25 10:13 AM REGIONAL DIRECTOR OF FINANCE documented as of this encounter Care Teams Camp Housekeeper Relationship Specialty [place] [address] [place] [address] PCP - General Family Medicine 12/24/20 [place] [address] [place] [address] Assigned PCP 01/04/21 Trent Qureshi MD [facility] [address] [place] [address] Orthopaedic Surgery 09/16/21 documented as of this encounter
--- OUTSIDE RECORDS SUMMARY | 2024-11-02 09:18 | XMS_ITS | Encounter Summary ---
Author Organization [facility] Address [address] [place] [address] Care Team Providers Care Sectional Belt Mold Assembler Name Role Phone Herb Herman MD Primary Care Provider [phone] Herb Herman MD Unavailable Stan Barnes MD Unavailable [phone] Trent Qureshi MD Unavailable [phone] Sammy Villa MD Unavailable [phone] Encounter Details Date Type Department Care Team (Late st Contact Info) Description 04/18/2023 MyC Medical Advice [address] [address] Brooke Barnes Social History Tobacco [...] 06/08/2021 How often do you attend [facility] or jewish services? More than 4 times per year [...] Answer Date Recorded PHQ-2 Score 0 08/02/2022 [facility] - Occupational [...] in a [facility] (including now)? No 06/08/2021 Adolescent Education Answer Date Record ed Getting School Help Needed Not on file 01/04 Comments No Sex and Gender Information Value Date Recorded Sex Assigned at Female 01/16/2019 8:38 AM CDT Legal Sex Female 3:11 AM CLINICAL DOCUMENT IMPROVEMENT EDUCATOR Gender Identity Female 01/16/2019 8:38 AM CDT Sexual Orientation Choose not to disclose 2021 11:32 AM CLINICAL DOCUMENT IMPROVEMENT EDUCATOR Occupation Industry Job Start Date Job [...] documented as of this encounter Care Teams Sectional Belt Mold Assembler Relationship Specialty [place] [address] [place] [address] PCP - General Family Medicine 12/24/20 [place] [address] [place] [address] Assigned PCP 01/04/21 Stan Barnes MD [address] [place] [address] Assigned Surgical Provider 08/30/21 08/31/23 Trent Qureshi MD [facility] [address] [place] [address] Orthopaedic Surgery 09/16/21 Sammy Villa MD [address] [place] [address] Assigned Neuroscience Provider 10/01/24 documented as of this encounter
--- OUTSIDE RECORDS SUMMARY | 2024-11-02 09:18 | XMS_ITS | Encounter Summary ---
Author Organization [place] Address [address] [place] [address] Care Team Providers Care Seaman Name Role Phone Herb Herman MD Primary Care Provider [phone] Herb Herman MD Unavailable Stan Barnes MD Unavailable + [phone] Trent Qureshi MD Unavailable [phone] Sammy Villa MD Unavailable [phone] Encounter Details Date Type Department Care Team (Late st Contact Info) Description 06/27/2023 MyC Medical Advice [address] [address] Soraya Hutchinson CMA Social History [...] do you attend [facility] or voodoo services? 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 file documented as of this encounter Plan of Treatment Not on file documented as of this encounter Visit Diagnoses Not on filedocumented in this encounter Additional Health Concerns Assessment Noted Time PHQ-9 Depression Total Score: 0 05/02/19 24 10:52 AM ON SITE PROPERTY MANAGER documented as of this encounter Care Teams Seaman Relationship Specialty [place] [address] [place] [address] PCP - General Family Medicine 12/24/20 [place] [address] [place] [address] Assigned PCP 01/04/21 Stan Barnes MD [address] [place] [address] Assigned Surgical Provider 08/30/21 08/31/23 Trent Qureshi MD [facility] [address] [id number] Orthopaedic Surgery 09/16/21 Sammy Villa MD [address] [place] [address] 96 [place], [place] [address] Assigned Neuroscience Provider 10/01/24 documented as of this encounter
--- OUTSIDE RECORDS SUMMARY | 2024-11-02 09:18 | XMS_ITS | Encounter Summary ---
Author Organization [facility] Address [address] [place] [address] Care Team Providers Care Ux Information Architect Name Role Phone Daniel Plaza MD Primary Care Provider Daniel Plaza MD Unavailable [phone] Daniel Plaza MD Unavailable Stan Barnes MD Unavailable [phone] Herb Herman MD Primary Care Provider [phone] Herb Herman MD Unavailable Stan Barnes MD Unavailable [phone] Trent Qureshi MD Unavailable [phone] Sammy Villa MD Unavailable Encounter Details Date Type Department Care Team (Late st Contact Info) Description 04/28/2013 MyC Medical Advice [facility] [address] [address] Daniel Plaza MD [address] [phone] Social History Tobacco Use Types Packs/Day Years Used Date Smoking Tobacco: Never Smokeless Tobacco: Never Alcohol Use Standard Drinks/Week Comments No 0 (1 standard drink = 0.6 oz pur e alcohol) Comments No Sex and Gender Information Value Date Recorded Sex Assigned at Female 01/16/2019 8:38 AM CDT Legal Sex Female 3:11 AM ACADEMIC SPECIALIST Gender Identity Female 01/16/2019 8:38 AM CDT Sexual Orientation Choose not to disclose 2021 11:32 AM ACADEMIC SPECIALIST documented as of this encounter Plan of Treatment Not on file documented as of this encounter Visit Diagnoses Not on filedocumented in this encounter Care Teams Ux Information Architect Relationship Specialty Start Date End Date Daniel Plaza MD [address] [place] [phone] PCP - General 06/29/10 12/23/20 Daniel Plaza MD [address] [place] [phone] PCP - Assigned PCP 02/05/08 06/13/18 [place] [address] [place] [address] PCP - General Family Medicine 12/24/20 Daniel Plaza MD [address] [place] [phone] Assigned PCP 01/13/12 01/03/21 Stan Barnes MD [address] [place] [address] Assigned Surgical Provider 02/01/20 07/19/20 [place] [address] [place] [address] Assigned PCP 01/04/21 Stan Barnes MD [address] [place] [address]22355 Assigned Surgical Provider 08/30/21 08/31/23 Trent Qureshi MD [facility] [address] [place] [id number] Orthopaedic Surgery 09/16/21 Sammy Villa MD [address] [facility] [address] [place], [place] [address] Assigned Neuroscience Provider 10/01/24 documented as of this encounter
--- OUTSIDE RECORDS SUMMARY | 2024-11-02 09:18 | XMS_ITS | Encounter Summary ---
Author Organization [place] Address [address] [place] [address] Care Team Providers Care Visual Artist Name Role Phone Daniel Plaza MD Primary Care Provider Daniel Plaza MD Unavailable [phone] Daniel Plaza MD Unavailable Stan Barnes MD Unavailable [phone] Herb Herman MD Primary Care Provider Herb Herman MD Unavailable Stan Barnes MD Unavailable [phone] Trent Qureshi MD Unavailable [phone] Sammy Villa MD Unavailable [phone] Reason for Visit * Reason Onset Date Comments Respiratory Problems 02/16/2008 Encounter Details Date Type Department Care Team (Latest Contact Info) Description 02/15/2008 MyC Medical Advice [facility] [address] [address] Daniel Plaza MD [address] [address] Respiratory Problems Social History Tobacco Use Types Packs/Day Years Used Date Smoking Tobacco: Never Alcohol Use Standard Drinks/Week Comments Yes 0 (1 standard drink = 0.6 oz pur e alcohol) social Comments No Sex and Gender Information Value Date Recorded Sex Assigned at Female 01/16/2019 8:38 AM CDT Legal Sex Female 3:11 AM SALES CLERK FOOD Gender Identity Female 01/16/2019 8:38 AM CDT Sexual Orientation Choose not to disclose 2021 11:32 AM SALES CLERK FOOD documented as of this encounter Plan of Treatment Not on file documented as of this encounter Visit Diagnoses Not on filedocumented in this encounter Care Teams Visual Artist Relationship Specialty Start Date End Date Daniel Plaza MD [address] [place] [phone] PCP - General 06/29/10 12/23/20 Daniel Plaza MD [address] [place] [phone] PCP - Assigned PCP 02/05/08 06/13/18 [place] [address] [place] [address] PCP - General Family Medicine 12/24/20 Daniel Plaza MD [address] [place] [phone] Assigned PCP 01/13/12 01/03/21 Stan Barnes MD 9 [place] [address] Assigned Surgical Provider 02/01/20 07/19/20 [place] [address] [place] [address] Assigned PCP 01/04/21 Stan Barnes MD [address] [place] [address] 914805 Assigned Surgical Provider 08/30/21 08/31/23 Trent Qureshi MD [facility] [address] [place] [address] [id number] Orthopaedic Surgery 09/16/21 Sammy Villa MD [address] [place] [address] 96 [place], [place] 425555 Assigned Neuroscience Provider 10/01/24 documented as of this encounter
--- OUTSIDE RECORDS SUMMARY | 2024-11-02 09:18 | XMS_ITS | Clinical Summary ---
Author Organization [facility] Address [address] [place] [address] Care Team Providers Care Toolroom Keeper Name Role Phone Herb Herman MD Primary Care Provider [phone] Allergies Active Allergy Reactions Criticality Noted Date [...] (10/18/2024): Seen incidentally on CT done at [facility] 12/22/2015 Spinal stenosis of lumbar re [...] Description 10/18/2024 2:00 PM CDT Office Visit [facility] [address] [place] [address] Felisha Perez, TIMBER WATCHMAN, STACKING MACHINE OPERATOR Speech disturbance, unspecified type (Primary Dx); Abnormality [...] patient's age to complete this topic Insurance [employer] Care Teams Toolroom Keeper Relationship Specialty [place] [address] [place] [address] PCP - General Family Medicine - 10/18/24
--- OUTSIDE RECORDS SUMMARY | 2024-11-02 09:18 | XMS_ITS | Encounter Summary ---
Author Organization [place] Address [address] [place] [address]. [place] [address] Care Team Providers Care Naval Engineer Name Role Phone Herb Herman MD Primary Care Provider [phone] Herb Herman MD Unavailable Trent Qureshi MD Unavailable [phone] Sammy Villa MD Unavailable [phone] Encounter Details Date Type Department Care Team (Late st Contact Info) Description 09/19/2024 [facility] Medical Advice [facility] [address], [address] [place] [address] Ana Larsen, IRENE Social History Tobacco [...] How often do you attend chur or catholic services? 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 file documented as of this encounter Plan of Treatment Not on file documented as of this encounter Visit Diagnoses Not on filedocumented in this encounter Additional Health Concerns Assessment Noted Time PHQ-9 Depression Total Score: 0 05/02/19 25 10:13 AM RAIL SPLITTER documented as of this encounter Care Teams Naval Engineer Relationship Specialty [place] [address] [place] [address] PCP - General Family Medicine 12/24/20 [place] [address] [place] [address] Assigned PCP 01/04/21 Trent Qureshi MD [facility] [address] [place] [address] 608755 Orthopaedic Surgery 09/16/21 Sammy Villa MD [address] [place] [address] Assigned Neuroscience Provider 10/01/24 documented as of this encounter
--- OUTSIDE RECORDS SUMMARY | 2024-11-02 09:18 | XMS_ITS | Encounter Summary ---
Author Organization [place] Address [address] [place] [address] Care Team Providers Care Automotive Sales Associate Name Role Phone Daniel Plaza MD Primary Care Provider Daniel Plaza MD Unavailable [phone] Daniel Plaza MD Unavailable [phone] Stan Barnes MD Unavailable [phone] Herb Herman MD Primary Care Provider [phone] Herb Herman MD Unavailable Stan Barnes MD Unavailable [phone] Trent Qureshi MD Unavailable [phone] Sammy Villa MD Unavailable Reason for Visit * Reason Onset Date Comments Sinus Problem 04/06/2017 Encounter Details Date Type Department Care Team (Late st Contact Info) Description 04/06/2017 MyC Medical Advice [facility] [address] [address] Daniel Plaza MD [address] [address] Sinus Problem Social History Tobacco Use Types Packs/Day Years Used Date Smoking Tobacco: Never Smokeless Tobacco: Never Alcohol Use Standard Drinks/Week Comments No 0 (1 standard drink = 0.6 oz pur e alcohol) Comments No Sex and Gender Information Value Date Recorded Sex Assigned at Female 01/16/2019 8:38 AM CDT Legal Sex Female 3:11 AM ALLIANCE CONSULTANT Gender Identity Female 01/16/2019 8:38 AM CDT Sexual Orientation Choose not to disclose 2021 11:32 AM ALLIANCE CONSULTANT documented as of this encounter Plan of Treatment Not on file documented as of this encounter Visit Diagnoses Diagnosis Acute sinusitis with symptoms > 10 days- Primary Acute sinusitis, unspecified documented in this encounter Additional Health Concerns Assessment Noted Time PHQ-9 Depression Total Score: 0 12/23/19 16 7:14 AM CDT documented as of this encounter Care Teams Automotive Sales Associate Relationship Specialty Start Date End Date Daniel Plaza MD [address] [place] [phone] PCP - General 06/29/10 12/23/20 Daniel Plaza MD [address] [place] [phone] PCP - Assigned PCP 02/05/08 06/13/18 [place] [address] [place] [address] PCP - General Family Medicine 12/24/20 Daniel Plaza MD [address] [place] [phone] Assigned PCP 01/13/12 01/03/21 Stan Barnes MD 9 [place] [address] Assigned Surgical Provider 02/01/20 07/19/20 [place] [address] [place] [address] Assigned PCP 01/04/21 Stan Barnes MD [address] [place] [address] [id number] Assigned Surgical Provider 08/30/21 08/31/23 Trent Qureshi MD [facility] [address] [place] [address] 583125 Orthopaedic Surgery 09/16/21 Sammy Villa MD [address] [place] [address] [address] [place], [place] 056815 Assigned Neuroscience Provider 10/01/24 documented as of this encounter
--- OUTSIDE RECORDS SUMMARY | 2024-11-02 09:18 | XMS_ITS | Encounter Summary ---
Author Organization [place] Address [address] [place] [address]. [place] [address] Care Team Providers Care Hazmat Tanker Driver Name Role Phone Herb Herman MD Primary Care Provider Herb Herman MD Unavailable Trent Qureshi MD Unavailable [phone] Reason for Visit * Reason Onset Date Comments Procedure 09/20/2024 L3-4 or L4-5 Int erlaminar ARTHUR Encounter Details Date Type Department Care Team (Late st Contact Info) Description 09/20/2024 [facility] [address] [place] [address] Pain Management Program, [facility] Procedure (L3-4 or L4-5 Interlaminar ARTHUR) [...] often do you attend [facility] or voodoo services? 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 [facility] If choosing [facility] for location, please inform patient: [facility] is a Hospital based clinic. Before your visit, you should check with your insurance about how it covers the charges for facility services in a hospital-based clinic.?? Procedure ordered by Dr. Villa Procedure ordered? L3-4 or L4-5 Interlaminar ARTHUR Transforaminal Cervical ARTHUR - Send to [facility] - No Community Site providers perform this procedure What insurance would patient like us to bill for this procedure? Medicare/Medica IF SCHEDULING IN [place] PA[place] OR SPINE PLEASE SCHEDULE AT LEAST [...] to Marcy Lees Is patient scheduled at [facility]? No If YES, route every encounter to [facility] CARE NAVIGATION POOL [[phone]] Is an imcu specialist needed? No Patient has a route salesman and driver home? (Review Grid) YES: ok Any chance of ? NO If YES, do NOT schedule and route to pool servicer - Dr. Delgado route to PM&R Nurse [[id number]] Is patient actively being treated for cancer or immunocompromised? No If YES, do NOT schedule and route to pool servicer/ Dr. Delgado's Team Does the patient have a bleeding or clotting disorder? No If YES, okay to schedule AND route to RN nurse / Dr. Delgado's Team (For any patients with platelet count <100, RN must forward to provider) Is patient taking any Blood Thinners OR Antiplatelet medication? No If hold needed, do NOT schedule, route to pool servicer/ Dr. Delgado's Team Examples: Blood Thinners: (Coumadin, Warfarin, Jantoven, Pradaxa, Xarelto, Eliquis, Edoxaban, Enoxaparin, Lovenox, Heparin, Arixtra, Fondaparinux or Fragmin) Antiplatelet Medications: (Plavix, Brilinta or Effient) Is patient taking any aspirin products (includes: Aspirin 81 mg, Excedrin, and Fiorinal)? No. If yes route to pool servicer/ Dr. Delgado's Team - Do not schedule [...] appointment notes AND route to the pool servicer/ Dr. Delgado's Team If ARTHUR and Contrast Dye / Iodine Allergy? DO NOT SCHEDULE, route to pool servicer/ Dr. Delgado's Team Allergies: Morphine, Doxycycline, Atorvastatin, [...] Orders Needed Please send all injections to [facility] Not Applicable Red Flags? Not Applicable Does the patient have any questions? NO Renetta Castano [facility] * Addendum Note - [...] Total Score: 0 05/02/19 25 10:13 AM SET UP MECHANIC COIL WINDING MACHINES documented as of this encounter Care Teams Hazmat Tanker Driver Relationship Specialty [place] [address] [facility] [place] [address] PCP - General Family Medicine 12/24/20 [place] [address] [place] [address] Assigned PCP 01/04/21 Trent Qureshi MD [facility] [address] [place] [address] Orthopaedic Surgery 09/16/21 documented as of this encounter
--- OUTSIDE RECORDS SUMMARY | 2024-11-02 09:18 | XMS_ITS | Encounter Summary ---
Author Organization [place] Address [address] [place] [address]. [place] [address] Care Team Providers Care International Recruiter Name Role Phone Herb Herman MD Primary Care Provider Herb Herman MD Unavailable Stan Barnes MD Unavailable [phone] Trent Qureshi MD Unavailable [phone] Sammy Villa MD Unavailable [phone] Encounter Details Date Type Department Care Team (Late st Contact Info) Description 08/10/2021 [facility] Medical Advice [facility] [address] 4[address] [place] [address] Rodolfo Cline Social History Tobacco [...] 06/08/2021 How often do you attend [facility] or taoism services? More than 4 times per year 06/08/2021 Do you belong to any clubs o r organizations such as hoahaoism groups, unions, fraternal or athletic groups, or [...] 06/24/2021 [facility] Occupat ional [facility] [...] AM CDT Legal Sex Female 3:11 AM SHEAR OPERATOR AUTOMATIC Gender Identity Female 01/16/2019 8:38 AM CDT Sexual Orientation Choose not to disclose 2021 11:32 AM SHEAR OPERATOR AUTOMATIC Occupation Industry Job Start Date Job End [...] Total Score: 0 06/10/19 22 7:01 AM SHEAR OPERATOR AUTOMATIC documented as of this encounter Care Teams International Recruiter Relationship Specialty [place] [address] [place] [address] PCP - General Family Medicine 12/24/20 [place] [address] [place] [address] Assigned PCP 01/04/21 Stan Barnes MD [address] [place] [address] Assigned Surgical Provider 08/30/21 08/31/23 Trent Qureshi MD [facility] [address] [address] Orthopaedic Surgery 09/16/21 Sammy Villa MD [address] [place] [address] 96 [place], [place] 595125 Assigned Neuroscience Provider 10/01/24 documented as of this encounter
--- OUTSIDE RECORDS SUMMARY | 2024-11-02 09:18 | XMS_ITS | Encounter Summary ---
Author Organization [place] Address [address] [place] [address]. [place] [address] Care Team Providers Care Evaporator Repairer Name Role Phone Herb Herman MD Primary Care Provider Herb Herman MD Unavailable Stan Barnes MD Unavailable [phone] Trent Qureshi MD Unavailable [phone] Sammy Villa MD Unavailable [phone] Encounter Details Date Type Department Care Team (Late st Contact Info) Description 07/16/2021 MyC Medical Advice [facility] [address] [place] [address] [place] [address] [place] [address] Social History Tobacco Use Types [...] often do you attend chur ch or latter day services? More than 4 [...] AM CDT Legal Sex Female 3:11 AM SHOT BLAST EQUIPMENT OPERATOR Gender Identity Female 01/16/2019 8:38 AM CDT Sexual Orientation Choose not to disclose 2021 11:32 AM SHOT BLAST EQUIPMENT OPERATOR Occupation Industry Job Start Date Job [...] Total Score: 0 06/10/19 22 7:01 AM SHOT BLAST EQUIPMENT OPERATOR documented as of this encounter Care Teams Evaporator Repairer Relationship Specialty [place] [address] [place] [address] PCP - General Family Medicine 12/24/20 [place] [address] [place] [address] Assigned PCP 01/04/21 Stan Barnes MD [address] [place] [address] Assigned Surgical Provider 5/22/22 5/22/24 Trent Qureshi MD [facility] [address] [place] [address] 288415 Orthopaedic Surgery 09/16/21 Sammy Villa MD [address] [place] [address] [id number] Assigned Neuroscience Provider 10/01/24 documented as of this encounter
--- OUTSIDE RECORDS SUMMARY | 2024-11-02 09:18 | XMS_ITS | Encounter Summary ---
Author Organization [place] Address [address] [place] [address] Care Team Providers Care Video Tape Editor Name Role Phone Daniel Plaza MD Primary Care Provider Daniel Plaza MD Unavailable Daniel Plaza MD Unavailable Stan Barnes MD Unavailable [phone] Herb Herman MD Primary Care Provider Herb Herman MD Unavailable Stan Barnes MD Unavailable [phone] Ternt Qureshi MD Unavailable [phone] Sammy Villa MD Unavailable Encounter Details Date Type Department Care Team (Late st Contact Info) Description 02/28/2008 MyC Medical Advice [facility] [address] [address] Daniel Plaza MD [address] [phone] Social History Tobacco Use Types Packs/Day Years Used Date Smoking Tobacco: Never Alcohol Use Standard Drinks/Week Comments Yes 0 (1 standard drink = 0.6 oz pur e alcohol) social Comments No Sex and Gender Information Value Date Recorded Sex Assigned at Female 01/16/2019 8:38 AM CDT Legal Sex Female 3:11 AM PROJECT DESIGNER Gender Identity Female 01/16/2019 8:38 AM CDT Sexual Orientation Choose not to disclose 2021 11:32 AM PROJECT DESIGNER documented as of this encounter Plan of Treatment Not on file documented as of this encounter Visit Diagnoses Not on filedocumented in this encounter Care Teams Video Tape Editor Relationship Specialty Start Date End Date Daneil Plaza MD [address] [place] [address] PCP - General 06/29/10 12/23/20 Daniel Plaza MD [address] [place] [phone] PCP - Assigned PCP 02/05/08 06/13/18 [place] [address] [place] [address] PCP - General Family Medicine 12/24/20 Daniel Plaza MD [address] [place] [phone] Assigned PCP 01/13/12 01/03/21 Stan Barnes MD 9 [place] [address] Assigned Surgical Provider 02/01/20 07/19/20 [place] [address] [place] [address] Assigned PCP 01/04/21 Stan Barnes MD [address] [place] [address] Assigned Surgical Provider 08/30/21 08/31/23 Trent Qureshi MD [facility] [address] [address] Orthopaedic Surgery 09/16/21 Sammy Villa MD 420 [facility] 96 [place] [address] Assigned Neuroscience Provider 10/01/24 documented as of this encounter
--- OUTSIDE RECORDS SUMMARY | 2024-11-02 09:18 | XMS_ITS | Encounter Summary ---
Author Organization [place] Address [address] [place] [address] Care Team Providers Care Buffing Wheel Operator Name Role Phone Herb Herman MD Primary Care Provider [phone] Herb Herman MD Unavailable Trent Qureshi MD Unavailable [phone] Reason for Visit * Reason Onset Date Comments Previsit 09/19/2024 Encounter Details Date Type Department Care Team (Late st Contact Info) Description 09/19/2024 PRE VISIT [facility] Neurosurgery Clinic [address] [place] [address] Sammy Villa MD 420 [facility] 96 [place] [address] Previsit Social History Tobacco Use [...] How often do you attend [facility] or temple services? More than 4 times [...] Date Recorded PHQ-2 Score 0 05/02/2024 [facility] of Occupat ional Health [...] AM CDT Legal Sex Female 3:11 AM BETTING AGENCY MANAGER Gender Identity Female 01/16/2019 8:38 AM CDT Sexual Orientation Choose not to disclose 2021 11:32 AM BETTING AGENCY MANAGER Occupation Industry Job Start Date Job [...] Total Score: 0 05/02/19 25 10:13 AM BETTING AGENCY MANAGER documented as of this encounter Care Teams Buffing Wheel Operator Relationship Specialty [place] [address] [place], [place] [id number] PCP - General Family Medicine 12/24/20 [place] [address] [place] [address] Assigned PCP 01/04/21 Trent Qureshi MD [facility] [address] [place] [address] Orthopaedic Surgery 09/16/21 documented as of this encounter
--- OUTSIDE RECORDS SUMMARY | 2024-11-02 09:18 | XMS_ITS | Encounter Summary ---
Author Organization [place] Address [facility] [place] [address] Care Team Providers Care Metals Analyst Name Role Phone Herb Herman MD Primary Care Provider [phone] Herb Herman MD Unavailable Stan Barnes MD Unavailable [phone] Trent Qureshi MD Unavailable [phone] Sammy Villa MD Unavailable Encounter Details Date Type Department Care Team (Late st Contact Info) Description 06/29/2021 MyC Medical Advice [facility] [address] [place] [address] [place] [address] [place] [address] Social History Tobacco Use Types [...] often do you attend chur ch or oriental orthodox services? More than 4 times per [...] 0 06/24/2021 [facility] Occupat ional [facility] - [...] AM CDT Legal Sex Female 3:11 AM ROOM CLERK Gender Identity Female 01/16/2019 8:38 AM CDT Sexual Orientation Choose not to disclose 2021 11:32 AM ROOM CLERK COVID-19 Exposure Response Date Recorded In the [...] Total Score: 0 06/10/19 22 7:01 AM ROOM CLERK documented as of this encounter Care Teams Metals Analyst Relationship Specialty [place] [address] [place] [address] PCP - General Family Medicine 12/24/20 [place] [address] [place] [address] Assigned PCP 01/04/21 Stan Barnes MD [address] [place] [address] Assigned Surgical Provider 08/30/21 08/31/23 Trent Qureshi MD [facility] [address] [id number] Orthopaedic Surgery 09/16/21 Sammy Villa MD [address] [place] [address] 96 [place], [place] [address] Assigned Neuroscience Provider 10/01/24 documented as of this encounter
--- OUTSIDE RECORDS SUMMARY | 2024-11-02 09:19 | XMS_ITS | Encounter Summary ---
Author Organization [place] Address [address] [place] [address] Care Team Providers Care Rotational Moulding Operator Name Role Phone Herb Herman MD Primary Care Provider [phone] Herb Herman MD Unavailable Trent Qureshi MD Unavailable [phone] Encounter Details Date Type Department Care [...] often do you attend chur ch or christianity services? 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 file documented as of this encounter Plan of Treatment Not on file documented as of this encounter Visit Diagnoses Not on filedocumented in this encounter Additional Health Concerns Assessment Noted Time PHQ-9 Depression Total Score: 0 05/02/19 25 10:13 AM GLASS PRESSER documented as of this encounter Care Teams Rotational Moulding Operator Relationship Specialty [place] [address] [place] [address] PCP - General Family Medicine 12/24/20 [place] [address] [place] [address] Assigned PCP 01/04/21 Trent Qureshi MD [facility] [address] [place] [address] Orthopaedic Surgery 09/16/21 documented as of this encounter
--- OUTSIDE RECORDS SUMMARY | 2024-11-02 09:19 | XMS_ITS | Encounter Summary ---
Author Organization [place] Address [address] [place] [address] Care Team Providers Care Economics Teacher Name Role Phone Daniel Plaza MD Primary Care Provider Daniel Plaza MD Unavailable Daniel Plaza MD Unavailable [phone] Stan Barnes MD Unavailable [phone] Herb Herman MD Primary Care Provider Herb Herman MD Unavailable Stan Barnes MD Unavailable [phone] Trent Qureshi MD Unavailable [phone] Sammy Villa MD Unavailable [phone] Encounter Details Date Type Department Care Team (Late st Contact Info) Description 10/30/2014 MyC Medical Advice [facility] [address] [address] Daniel Plaza MD [address] [phone] Social History Tobacco Use Types Packs/Day Years Used Date Smoking Tobacco: Never Smokeless Tobacco: Never Alcohol Use Standard Drinks/Week Comments No 0 (1 standard drink = 0.6 oz pur e alcohol) Comments No Sex and Gender Information Value Date Recorded Sex Assigned at Female 01/16/2019 8:38 AM CDT Legal Sex Female 3:11 AM RESPIRATORY MANAGER Gender Identity Female 01/16/2019 8:38 AM CDT Sexual Orientation Choose not to disclose 2021 11:32 AM RESPIRATORY MANAGER documented as of this encounter Plan of Treatment Not on file documented as of this encounter Visit Diagnoses Not on filedocumented in this encounter Care Teams Economics Teacher Relationship Specialty Start Date End Date Daniel Plaza MD [address] [place] [phone] PCP - General 06/29/10 12/23/20 Daniel Plaza MD [address] [place] [phone] PCP - Assigned PCP 02/05/08 06/13/18 [place] [address] [place] [address] PCP - General Family Medicine 12/24/20 Daniel Plaza MD [address] [place] [phone] Assigned PCP 01/13/12 01/03/21 Stan Barnes MD [address] [place] [address] Assigned Surgical Provider 02/01/20 07/19/20 [place] [address] [place] [address] Assigned PCP 01/04/21 Stan Barnes MD [address] [place] [address] 925285 Assigned Surgical Provider 08/30/21 08/31/23 Trent Qureshi MD [facility] [address] [place] [address] 964795 Orthopaedic Surgery 09/16/21 Sammy Villa MD 420 [facility] 96 [place], [place] 385555 Assigned Neuroscience Provider 10/01/24 documented as of this encounter
--- OUTSIDE RECORDS SUMMARY | 2024-11-02 09:19 | XMS_ITS | Encounter Summary ---
Author Organization [place] Address [address] [place] [address] Care Team Providers Care Spark Plug Tester Name Role Phone Herb Herman MD Primary Care Provider Herb Herman MD Unavailable Trent Qureshi MD Unavailable [phone] Sammy Villa MD Unavailable [phone] Encounter Details Date Type Department Care Team (Late st Contact Info) Description 02/20/2024 [facility] Medical Advice [address] [address] Brooke Barnes Social History Tobacco [...] Answer Date Recorded PHQ-2 Score 0 05/02/2023 [facility] Occupat ional Health - [...] AM CDT Legal Sex Female 3:11 AM DREDGE MECHANIC Gender Identity Female 01/16/2019 8:38 AM CDT Sexual Orientation Choose not to disclose 2021 11:32 AM DREDGE MECHANIC 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 file documented as of this encounter Plan of Treatment Not on file documented as of this encounter Visit Diagnoses Not on filedocumented in this encounter Additional Health Concerns Assessment Noted Time PHQ-9 Depression Total Score: 0 05/02/19 24 10:52 AM DREDGE MECHANIC documented as of this encounter Care Teams Spark Plug Tester Relationship Specialty [place] [address] [place] [address] PCP - General Family Medicine 12/24/20 [place] [address] [place] [address] Assigned PCP 01/04/21 Trent Qureshi MD [facility] [address] [place] [address] 196755 Orthopaedic Surgery 09/16/21 Sammy Villa MD [address] [place] [address] [id number] Assigned Neuroscience Provider 10/01/24 documented as of this encounter
--- OUTSIDE RECORDS SUMMARY | 2024-11-02 09:19 | XMS_ITS | Encounter Summary ---
Author Organization [place] Address [address] [place] [address] Care Team Providers Care Manager Discovery Name Role Phone Herb Herman MD Primary Care Provider Herb Herman MD Unavailable Trent Qureshi MD Unavailable [phone] Sammy Villa MD Unavailable Encounter Details Date Type Department Care Team (Late st Contact Info) Description 02/21/2024 [facility] Medical Advice [address] [address] Rama Roche [place] Social History [...] Answer Date Recorded PHQ-2 Score 0 05/02/2023 [facility] Occupat ional [facility] - Occupational [...] AM CDT Legal Sex Female 3:11 AM DOCUMENT REVIEW SPECIALIST Gender Identity Female 01/16/2019 8:38 AM CDT Sexual Orientation Choose not to disclose 2021 11:32 AM DOCUMENT REVIEW SPECIALIST 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 file documented as of this encounter Plan of Treatment Not on file documented as of this encounter Visit Diagnoses Not on filedocumented in this encounter Additional Health Concerns Assessment Noted Time PHQ-9 Depression Total Score: 0 05/02/19 24 10:52 AM DOCUMENT REVIEW SPECIALIST documented as of this encounter Care Teams Manager Discovery Relationship Specialty [place] [address] [place] [address] PCP - General Family Medicine 12/24/20 [place] [address] [place] [address] Assigned PCP 01/04/21 Trent Qureshi MD [facility] [address] [place] [address] 469825 Orthopaedic Surgery 09/16/21 Sammy Villa MD [address] [place] [address] [phone] Assigned Neuroscience Provider 10/01/24 documented as of this encounter
--- OUTSIDE RECORDS SUMMARY | 2024-11-02 09:19 | XMS_ITS | Encounter Summary ---
Author Organization [place] Address [address] [place] [address]. [place] [address] Care Team Providers Care Tunnel Inspector Name Role Phone Herb Herman MD Primary Care Provider [phone] Herb Herman MD Unavailable Trent Qureshi MD Unavailable [phone] Sammy Villa MD Unavailable [phone] Encounter Details Date Type Department Care Team (Late st Contact Info) Description 05/16/2024 MyC Medical Advice [facility] [address] [place] [address] [place] [address] [place] [address] Social History Tobacco Use Types Packs/Day [...] week 06/08/2021 How often do you attend [facility] or judaism services? 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 file documented as of this encounter Plan of Treatment Not on file documented as of this encounter Visit Diagnoses Not on filedocumented in this encounter Additional Health Concerns Assessment Noted Time PHQ-9 Depression Total Score: 0 05/02/19 25 10:13 AM SLIDE MACHINE TENDER documented as of this encounter Care Teams Tunnel Inspector Relationship Specialty [place] [address] [place] [address] PCP - General Family Medicine 12/24/20 [place] [address] [place] [address] Assigned PCP 01/04/21 Trent Qureshi MD [facility] [address] [place] [address] Orthopaedic Surgery 09/16/21 Sammy Villa MD [address] [place] [address] Assigned Neuroscience Provider 10/01/24 documented as of this encounter
--- OUTSIDE RECORDS SUMMARY | 2024-11-02 09:19 | XMS_ITS | Encounter Summary ---
Author Organization [place] Address [address] [place] [address] Care Team Providers Care Prop Worker Name Role Phone Daniel Plaza MD Primary Care Provider Daniel Plaza MD Unavailable [phone] Stan Barnes MD Unavailable [phone] Herb Herman MD Primary Care Provider Herb Herman MD Unavailable Stan Barnes MD Unavailable [phone] Trent Qureshi MD Unavailable [phone] Sammy Villa MD Unavailable [phone] Encounter Details Date Type Department Care Team (Late st Contact Info) Description 12/21/2018 [facility] [address] [place] [address] [address] [place] [address] Stan Barnes MD [address] [place] [address] Social History Tobacco Use Types Packs/Day Years Used Date Smoking Tobacco: Never Smokeless Tobacco: Never Alcohol Use Standard Drinks/Week Comments No 0 (1 standard drink = 0.6 oz pur e alcohol) PHQ-2 Answer Date Recorded PHQ-2 Score 0 04/18/2018 Comments No Sex and Gender Information Value Date Recorded Sex Assigned at Female 01/16/2019 8:38 AM CDT Legal Sex Female 3:11 AM FURNITURE FINISHER HELPER Gender Identity Female 01/16/2019 8:38 AM CDT Sexual Orientation Choose not to disclose 2021 11:32 AM FURNITURE FINISHER HELPER documented as of this encounter Plan of Treatment Not on file documented as of this encounter Visit Diagnoses Not on filedocumented in this encounter Additional Health Concerns Assessment Noted Time PHQ-9 Depression Total Score: 0 11/24/19 19 11:34 AM CDT documented as of this encounter Care Teams Prop Worker Relationship Specialty Start Date End Date Daniel Plaza MD [address] [place] [phone] PCP - General 06/29/10 12/23/20 [place] [address] [place] [address] PCP - General Family Medicine 12/24/20 Daniel Plaza MD [address] [place] [phone] Assigned PCP 01/13/12 01/03/21 Stan Barnes MD [address] [place] [address] Assigned Surgical Provider 02/01/20 07/19/20 [place] [address] [place] [address] Assigned PCP 01/04/21 Stan Barnes MD [address] [place] [address] 997605 Assigned Surgical Provider 08/30/21 08/31/23 Trent Qureshi MD [facility] [address] [place] [address] 669835 Orthopaedic Surgery 09/16/21 Sammy Villa MD [address] [place] [address] [phone] Assigned Neuroscience Provider 10/01/24 documented as of this encounter
--- OUTSIDE RECORDS SUMMARY | 2024-11-02 09:19 | XMS_ITS | Encounter Summary ---
Author Organization [place] Address [address] [place] [address]. [place] [address] Care Team Providers Care Cloth Printer Name Role Phone Herb Herman MD Primary Care Provider [phone] Herb Herman MD Unavailable Stan Barnes MD Unavailable [phone] Trent Qureshi MD Unavailable [phone] Sammy Villa MD Unavailable [phone] Encounter Details Date Type Department Care Team (Late st Contact Info) Description 09/23/2021 [facility] [address] 4th [place] [address] Son [place] Social History Tobacco Use Types Packs/Day Years [...] week 06/08/2021 How often do you attend [facility] or congregational services? More than 4 [...] Answer Date Recorded PHQ-2 Score 0 09/15/2021 [facility] Occupat ional [facility] - Occupational Stress Questionnaire Answer Date [...] AM CDT Legal Sex Female 3:11 AM CLINIC MD ASSOCIATE Gender Identity Female 01/16/2019 8:38 AM CDT Sexual Orientation Choose not to disclose 2021 11:32 AM CLINIC MD ASSOCIATE Occupation Industry Job Start Date Job [...] documented as of this encounter Care Teams Cloth Printer Relationship Specialty [place] [address] [place] [address] PCP - General Family Medicine 12/24/20 [place] [address] [place] [address] Assigned PCP 01/04/21 Stan Barnes MD [address] [place] [address] Assigned Surgical Provider 08/30/21 08/31/23 Trent Qureshi MD [facility] [address] [address] Orthopaedic Surgery 09/16/21 Sammy Villa MD [address] [place] [address] 96 [place], [place] 094585 Assigned Neuroscience Provider 10/01/24 documented as of this encounter
--- OUTSIDE RECORDS SUMMARY | 2024-11-02 09:19 | XMS_ITS | Encounter Summary ---
Author Organization [place] Address [address] [place] [address]. [place] [address] Care Team Providers Care Rotary Drum Tanner Name Role Phone Herb Herman MD Primary Care Provider [phone] Herb Herman MD Unavailable Trent Qureshi MD Unavailable [phone] Sammy Villa MD Unavailable Reason for Visit * Reason Onset Date Comments MyChart Communication 03/30/2024 Encounter Details Date Type Department Care Team (Latest Contact Info) Description 03/30/2024 MyC Medical Advice [facility] [address] [place] [address] [place] [address] [place] [address] MyChart Communication Social History Tobacco [...] often do you attend chur ch or cheondoism services? 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 file documented as of this encounter Plan of Treatment Not on file documented as of this encounter Visit Diagnoses Not on filedocumented in this encounter Additional Health Concerns Assessment Noted Time PHQ-9 Depression Total Score: 0 05/02/19 24 10:52 AM STRAINER TENDER documented as of this encounter Care Teams Rotary Drum Tanner Relationship Specialty [place] [address] [place] [address] PCP - General Family Medicine 12/24/20 [place] [address] [place] [address] Assigned PCP 01/04/21 Trent Qureshi MD [facility] [address] [place] [address] Orthopaedic Surgery 09/16/21 Sammy Villa MD [address] [place] [address] [phone] Assigned Neuroscience Provider 10/01/24 documented as of this encounter
--- OUTSIDE RECORDS SUMMARY | 2024-11-02 09:19 | XMS_ITS | Encounter Summary ---
Author Organization [place] Address [address] [place] [address] Care Team Providers Care Purchasing/Receiving Name Role Phone Herb Herman MD Primary Care Provider Herb Herman MD Unavailable Stan Barnes MD Unavailable [phone] Trent Qureshi MD Unavailable [phone] Sammy Villa MD Unavailable Reason for Visit * Reason Comments Medication Refill Encounter Details Date Type Department Care Team (Late st Contact Info) Description 01/28/[address] [phone] Daniel Plaza MD [address] [place] [phone] Medication Refill Social History Tobacco Use Types Packs/Day Years Used Date Smoking Tobacco: Never Smokeless Tobacco: Never Alcohol Use Standard Drinks/Week Comments No 0 (1 standard drink = 0.6 oz pur e alcohol) PHQ-2 Answer Date Recorded PHQ-2 Score 0 12/24/2020 Comments No Sex and Gender Information Value Date Recorded Sex Assigned at Female 01/16/2019 8:38 AM CDT Legal Sex Female 3:11 AM NATURE PHOTOGRAPHER Gender Identity Female 01/16/2019 8:38 AM CDT Sexual Orientation Choose not to disclose 2021 11:32 AM NATURE PHOTOGRAPHER documented as of this encounter Miscellaneous Notes [...] documented as of this encounter Care Teams Purchasing/Receiving Relationship Specialty [place] [address] [place] [address] PCP - General Family Medicine 12/24/20 [place] [address] [place] [address] Assigned PCP 01/04/21 Stan Barnes MD [address] [place] [address] Assigned Surgical Provider 08/30/21 08/31/[address] [facility] [address] [place] [address] Orthopaedic Surgery 09/16/21 Sammy Villa MD [address] [place] [address] 756245 Assigned Neuroscience Provider 10/01/24 documented as of this encounter
--- OUTSIDE RECORDS SUMMARY | 2024-11-02 09:19 | XMS_ITS | Encounter Summary ---
Author Organization [place] Address [address] [place] [address] Care Team Providers Care Launch Leader Name Role Phone Daniel Plaza MD Primary Care Provider Daniel Plaza MD Unavailable Daniel Plaza MD Unavailable Stan Barnes MD Unavailable [phone] Herb Herman MD Primary Care Provider [phone] Herb Herman MD Unavailable Stan Barnes MD Unavailable [phone] Trent Qureshi MD Unavailable [phone] Sammy Villa MD Unavailable Encounter Details Date Type Department Care Team (Late st Contact Info) Description 12/24/2013 MyC Medical Advice [facility] [address] [address] Daniel Plaza MD [address] [phone] Social History Tobacco Use Types Packs/Day Years Used Date Smoking Tobacco: Never Smokeless Tobacco: Never Alcohol Use Standard Drinks/Week Comments No 0 (1 standard drink = 0.6 oz pur e alcohol) Comments No Sex and Gender Information Value Date Recorded Sex Assigned at Female 01/16/2019 8:38 AM CDT Legal Sex Female 3:11 AM CRIMINALIST Gender Identity Female 01/16/2019 8:38 AM CDT Sexual Orientation Choose not to disclose 2021 11:32 AM CRIMINALIST documented as of this encounter Plan of Treatment Not on file documented as of this encounter Visit Diagnoses Not on filedocumented in this encounter Care Teams Launch Leader Relationship Specialty Start Date End Date Daniel Plaza MD [address] [place] [phone] PCP - General 06/29/10 12/23/20 Daniel Plaza MD [address] [place] [phone] PCP - Assigned PCP 02/05/08 06/13/18 [place] [address] [place] [address] PCP - General Family Medicine 12/24/20 Daniel Plaza MD [address] [place] [phone] Assigned PCP 01/13/12 01/03/21 Stan Barnes MD [address] [place] [address] Assigned Surgical Provider 02/01/20 07/19/20 [place] [address] [place] [address] Assigned PCP 01/04/21 Stan Barnes MD [address] [place] [address] 890265 Assigned Surgical Provider 08/30/21 08/31/23 Trent Qureshi MD [facility] [address] [place] [address] 330345 Orthopaedic Surgery 09/16/21 Sammy Villa MD 420 [facility] 96 [place], [place] 547075 Assigned Neuroscience Provider 10/01/24 documented as of this encounter
--- OUTSIDE RECORDS SUMMARY | 2024-11-02 09:19 | XMS_ITS | Encounter Summary ---
Author Organization [place] Address [address] [place] [address] Care Team Providers Care Finishing Lab Technician Name Role Phone Daniel Plaza MD Primary Care Provider Daniel Plaza MD Unavailable Daniel Plaza MD Unavailable Stan Barnes MD Unavailable [phone] Herb Herman MD Primary Care Provider Herb Herman MD Unavailable Stan Barnes MD Unavailable [phone] Trent Qureshi MD Unavailable [phone] Sammy Villa MD Unavailable Encounter Details Date Type Department Care Team (Late st Contact Info) Description 01/09/2014 [facility] [address] [address] Daniel Plaza MD [address] [phone] Social History Tobacco Use Types Packs/Day Years Used Date Smoking Tobacco: Never Smokeless Tobacco: Never Alcohol Use Standard Drinks/Week Comments No 0 (1 standard drink = 0.6 oz pur e alcohol) Comments No Sex and Gender Information Value Date Recorded Sex Assigned at Female 01/16/2019 8:38 AM CDT Legal Sex Female 3:11 AM MAJOR ASSEMBLER Gender Identity Female 01/16/2019 8:38 AM CDT Sexual Orientation Choose not to disclose 2021 11:32 AM MAJOR ASSEMBLER documented as of this encounter Plan of Treatment Not on file documented as of this encounter Visit Diagnoses Not on filedocumented in this encounter Care Teams Finishing Lab Technician Relationship Specialty Start Date End Date Daniel Plaza MD [address] [place] [phone] PCP - General 06/29/10 12/23/20 Daniel Plaza MD [address] [place] [phone] PCP - Assigned PCP 02/05/08 06/13/18 [place] [address] [place] [address] PCP - General Family Medicine 12/24/20 Daniel Plaza MD [address] [place] [phone] Assigned PCP 01/13/12 01/03/21 Stan Barnes MD [address] [place] [address] Assigned Surgical Provider 02/01/20 07/19/20 [place] [address] [place] [address] Assigned PCP 01/04/21 Stan Barnes MD [address] [place] [address] 711365 Assigned Surgical Provider 08/30/21 08/31/23 Trent Qureshi MD [facility] [address] [place] [address] 534985 Orthopaedic Surgery 09/16/21 Sammy Villa MD 420 [facility] 96 [place], [place] 140965 Assigned Neuroscience Provider 10/01/24 documented as of this encounter
--- OUTSIDE RECORDS SUMMARY | 2024-11-02 09:19 | XMS_ITS | Encounter Summary ---
Author Organization [place] Address [address] [place] [address]. [place] [address] Care Team Providers Care Bioprocess Engineer Name Role Phone Herb Herman MD Primary Care Provider [phone] Herb Herman MD Unavailable Stan Barnes MD Unavailable [phone] Trent Qureshi MD Unavailable [phone] Sammy Villa MD Unavailable [phone] Encounter Details Date Type Department Care Team (Late st Contact Info) Description 08/27/2021 MyC Medical Advice [address] 5th [place] [address] Rachelle Mai RN Social History [...] How often do you attend chur or episcopalian services? More than 4 times per year [...] Answer Date Recorded PHQ-2 Score 0 08/25/2021 [facility] of Occupat ional [facility] - Occupational Stress Questionnaire Answer [...] AM CDT Legal Sex Female 3:11 AM LAN MANAGER Gender Identity Female 01/16/2019 8:38 AM CDT Sexual Orientation Choose not to disclose 2021 11:32 AM LAN MANAGER Occupation Industry Job Start Date Job [...] documented as of this encounter Care Teams Bioprocess Engineer Relationship Specialty [place] [address] [place] [address] PCP - General Family Medicine 12/24/20 [place] [address] [place] [address] Assigned PCP 01/04/21 Stan Barnes MD [address] [place] [address] Assigned Surgical Provider 08/30/21 08/31/23 Trent Qureshi MD [facility] [address] [address] Orthopaedic Surgery 09/16/21 Sammy Villa MD [address] [place] [address] 96 [place], [place] 531405 Assigned Neuroscience Provider 10/01/24 documented as of this encounter
--- OUTSIDE RECORDS SUMMARY | 2024-11-02 09:19 | XMS_ITS | Encounter Summary ---
Author Organization [place] Address [address] [place] [address] Care Team Providers Care Sander Machine Name Role Phone Daniel Plaza MD Primary Care Provider Daniel Plaza MD Unavailable [phone] Daniel Plaza MD Unavailable [phone] Stan Barnes MD Unavailable [phone] Herb Herman MD Primary Care Provider [phone] Herb Herman MD Unavailable Stan Barnes MD Unavailable [phone] Trent Qureshi MD Unavailable [phone] Sammy Villa MD Unavailable [phone] Reason for Visit * Reason Onset Date Comments Thyroid Disease 07/23/2014 Encounter Details Date Type Department Care Team (Late st Contact Info) Description 07/23/2014 [facility] Medical Advice [facility] [address] [address] Daniel Plaza MD [address] [address] Thyroid Disease Social History Tobacco Use Types Packs/Day Years Used Date Smoking Tobacco: Never Smokeless Tobacco: Never Alcohol Use Standard Drinks/Week Comments No 0 (1 standard drink = 0.6 oz pur e alcohol) Comments No Sex and Gender Information Value Date Recorded Sex Assigned at Female 01/16/2019 8:38 AM CDT Legal Sex Female 3:11 AM FINANCIAL ASSISTANCE SPECIALIST Gender Identity Female 01/16/2019 8:38 AM CDT Sexual Orientation Choose not to disclose 2021 11:32 AM FINANCIAL ASSISTANCE SPECIALIST documented as of this encounter Plan of Treatment Not on file documented as of this encounter Visit Diagnoses Diagnosis MONTSERRAT'S THYROIDITIS- Primary Unspecified hypothyroidism documented in this encounter Care Teams Sander Machine Relationship Specialty Start Date End Date Daniel Plaza MD [address] [place] [address] PCP - General 06/29/10 12/23/20 Daniel Plaza MD [address] [place] [address] PCP - Assigned PCP 02/05/08 06/13/18 [place] [address] [place] [address] PCP - General Family Medicine 12/24/20 Daniel Plaza MD [address] [place] [phone] Assigned PCP 01/13/12 01/03/21 Stan Barnes MD 9 [place] [address] Assigned Surgical Provider 02/01/20 07/19/20 [place] [address] [place] [address] Assigned PCP 01/04/21 Stan Barnes MD [address] [place] [address] Assigned Surgical Provider 08/30/21 08/31/23 Trent Qureshi MD [facility] [address] [place] [address] Orthopaedic Surgery 09/16/21 Sammy Villa MD [address] [place] [address] 96 [place] [address] Assigned Neuroscience Provider 10/01/24 documented as of this encounter
--- OUTSIDE RECORDS SUMMARY | 2024-11-02 09:19 | XMS_ITS | Encounter Summary ---
Author Organization [place] Address [address] [place] [address] Care Team Providers Care Quality Assurance Coordinator Name Role Phone Daniel Plaza MD Primary Care Provider Daniel Plaza MD Unavailable [phone] Daniel Plaza MD Unavailable [phone] Stan Barnes MD Unavailable [phone] Herb Herman MD Primary Care Provider [phone] Herb Herman MD Unavailable Stan Barnes MD Unavailable [phone] Trent Qureshi MD Unavailable [phone] Sammy Villa MD Unavailable [phone] Reason for Visit * Reason Onset Date Comments Medication Request 04/22/2015 Encounter Details Date Type Department Care Team (Late st Contact Info) Description 04/22/2015 [facility] Medical Advice [facility] [address] [address] Daniel Plaza MD [address] [address] Medication Request Social History Tobacco Use Types Packs/Day Years Used Date Smoking Tobacco: Never Smokeless Tobacco: Never Alcohol Use Standard Drinks/Week Comments No 0 (1 standard drink = 0.6 oz pur e alcohol) Comments No Sex and Gender Information Value Date Recorded Sex Assigned at Female 01/16/2019 8:38 AM CDT Legal Sex Female 3:11 AM ENTEROSTOMAL NURSE Gender Identity Female 01/16/2019 8:38 AM CDT Sexual Orientation Choose not to disclose 2021 11:32 AM ENTEROSTOMAL NURSE documented as of this encounter Plan of Treatment Not on file documented as of this encounter Visit Diagnoses Diagnosis Edema, unspecified edema- Primary documented in this encounter Care Teams Quality Assurance Coordinator Relationship Specialty Start Date End Date Daniel Plaza MD [address] [place] [phone] PCP - General 06/29/10 12/23/20 Daniel Plaza MD [address] [place] [phone] PCP - Assigned PCP 02/05/08 06/13/18 [place] [address] [place] [address] PCP - General Family Medicine 12/24/20 Daniel Plaza MD [address] [place] [phone] Assigned PCP 01/13/12 01/03/21 Stan Barnes MD 9 [place] [address] Assigned Surgical Provider 02/01/20 07/19/20 [place] [address] [place] [address] Assigned PCP 01/04/21 Stan Barnes MD [address] [place] [address] Assigned Surgical Provider 08/30/21 08/31/23 Trent Qureshi MD [facility] [address] [place] [address] Orthopaedic Surgery 09/16/21 Sammy Villa MD [address] [place] [address] 96 [place] [address] Assigned Neuroscience Provider 10/01/24 documented as of this encounter
--- OUTSIDE RECORDS SUMMARY | 2024-11-02 09:19 | XMS_ITS | Encounter Summary ---
Author Organization [place] Address [address] [place] [address] Care Team Providers Care Hand Etcher Helper Name Role Phone Daniel Plaza MD Primary Care Provider Daniel Plaza MD Unavailable Daniel Plaza MD Unavailable Stan Barnes MD Unavailable [phone] Herb Herman MD Primary Care Provider Herb Herman MD Unavailable Stan Barnes MD Unavailable [phone] Trent Qureshi MD Unavailable [phone] Sammy Villa MD Unavailable Encounter Details Date Type Department Care Team (Late st Contact Info) Description 07/25/[address] [facility] [address] [address] Daniel Plaza MD [address] [phone] Social History Tobacco Use Types Packs/Day Years Used Date Smoking Tobacco: Never Smokeless Tobacco: Never Alcohol Use Standard Drinks/Week Comments No 0 (1 standard drink = 0.6 oz pur e alcohol) Comments No Sex and Gender Information Value Date Recorded Sex Assigned at Female 01/16/2019 8:38 AM CDT Legal Sex Female 3:11 AM FAMILY SERVICES WORKER Gender Identity Female 01/16/2019 8:38 AM CDT Sexual Orientation Choose not to disclose 2021 11:32 AM FAMILY SERVICES WORKER documented as of this encounter Plan of Treatment Not on file documented as of this encounter Visit Diagnoses Not on filedocumented in this encounter Care Teams Hand Etcher Helper Relationship Specialty Start Date End Date Daniel Plaza MD [address] [place] [phone] PCP - General 06/29/10 12/23/20 Daniel Plaza MD [address] [place] [phone] PCP - Assigned PCP 02/05/08 06/13/18 [place] [address] [place] [address] PCP - General Family Medicine 12/24/20 Daniel Plaza MD [address] [place] [phone] Assigned PCP 01/13/12 01/03/21 Stan Barnes MD [address] [place] [address] Assigned Surgical Provider 02/01/20 07/19/20 [place] [address] [place] [address] Assigned PCP 01/04/21 Stan Barnes MD [address] [place] [address] 989215 Assigned Surgical Provider 08/30/21 08/31/23 Trent Qureshi MD [facility] [address] [place] [address] 401425 Orthopaedic Surgery 09/16/21 Sammy Villa MD 420 [facility] 96 [place], [place] [address] Assigned Neuroscience Provider 10/01/24 documented as of this encounter
--- OUTSIDE RECORDS SUMMARY | 2024-11-02 09:19 | XMS_ITS | Encounter Summary ---
Author Organization [place] Address [address] [place] [address] Care Team Providers Care Motorcycle Builder Name Role Phone Herb Herman MD Primary Care Provider Herb Herman MD Unavailable Stan Barnes MD Unavailable [phone] Trent Qureshi MD Unavailable [phone] Sammy Villa MD Unavailable Encounter Details Date Type Department Care Team (Late st Contact Info) Description 09/15/2021 Orders Only [facility] [address] [place] [address] Manny Petersen MD [address] [place], [place] [phone] Encounter for laboratory testing for COVID-19 virus [...] Answer Date Recorded PHQ-2 Score 0 09/15/2021 [facility] [...] AM CDT Legal Sex Female 3:11 AM REMEDIATION PROJECT ENGINEER Gender Identity Female 01/16/2019 8:38 AM CDT Sexual Orientation Choose not to disclose 2021 11:32 AM REMEDIATION PROJECT ENGINEER Occupation Industry Job Start Date Job [...] on file documented as of this encounter Results * [...] the balbina SARS-CoV-2 assay on the balbina StepLeader0 System. This test should be ordered for [...] COVID-19. This test was validated by the [facility] Infectious Diseases Diagnostic Laboratory. This laboratory is certified under the Clinical Laboratory Improvement Amendments of 1988 (CLIA-88) as qualified to perform high and/or moderate complexity laboratory testing. Manny Petersen MD LAB - MICRO GENERAL ORDERABLES F inal Result [facility] Inf. Diseases Diag. Lab [address] [facility], Room D[address] [place] [id number] [phone] documented in this encounter Visit Diagnoses Diagnosis Encounter for laboratory testing for COVID-19 virus documented in this encounter Additional Health Concerns Assessment Noted Time PHQ-9 Depression Total Score: 1 08/23/19 22 7:03 AM CDT documented as of this encounter Care Teams Motorcycle Builder Relationship Specialty [place] [address] [place] [address] PCP - General Family Medicine 12/24/20 [place] [address] [place] [address] Assigned PCP 01/04/21 Stan Barnes MD 909 [place] [address] Assigned Surgical Provider 08/30/21 08/31/23 Trent Qureshi MD [facility] [address] [address] Orthopaedic Surgery 09/16/21 Sammy Villa MD [address] [place] [address] 96 [place], [place] 354575 Assigned Neuroscience Provider 10/01/24 documented as of this encounter
--- OUTSIDE RECORDS SUMMARY | 2024-11-02 09:19 | XMS_ITS | Encounter Summary ---
Author Organization [place] Address [address] [place] [address] Care Team Providers Care Air Export Agent Name Role Phone Herb Herman MD Primary Care Provider Herb Herman MD Unavailable Stan Barnes MD Unavailable [phone] Trent Qureshi MD Unavailable [phone] Sammy Villa MD Unavailable [phone] Encounter Details Date Type Department Care Team (Late st Contact Info) Description 12/23/2021 My[facility] Medical Advice [address] [address] Brooke Barnes Social History Tobacco [...] How often do you attend chur or hoahaoism services? More than 4 times [...] Answer Date Recorded PHQ-2 Score 0 11/24/2021 [facility] - Occupational Stress Questionnaire Answer Date [...] CDT Legal Sex Female 3:11 AM CLAM SHUCKER Gender Identity Female 01/16/2019 8:38 AM CDT Sexual Orientation Choose not to disclose 2021 11:32 AM CLAM SHUCKER Occupation Industry Job Start Date Job End [...] documented as of this encounter Care Teams Air Export Agent Relationship Specialty [place] [address] [place] [address] PCP - General Family Medicine 12/24/20 [place] [address] [place] [address] Assigned PCP 01/04/21 Stan Barnes MD [address] [place] [address] Assigned Surgical Provider 08/30/21 08/31/[address] [facility] [address] [place] [address] Orthopaedic Surgery 09/16/21 Sammy Villa MD [address] [place] [address] 96 [place], [place] 648885 Assigned Neuroscience Provider 10/01/24 documented as of this encounter
--- OUTSIDE RECORDS SUMMARY | 2024-11-02 09:19 | XMS_ITS | Encounter Summary ---
Author Organization [place] Address [address] [place] [address] Care Team Providers Care Bench Tool Maker Name Role Phone Herb Herman MD Primary Care Provider [phone] Herb Herman MD Unavailable Trent Qureshi MD Unavailable [phone] Encounter Details Date Type Department Care [...] often do you attend chur ch or sikh services? 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 file documented as of this encounter Plan of Treatment Not on file documented as of this encounter Visit Diagnoses Not on filedocumented in this encounter Additional Health Concerns Assessment Noted Time PHQ-9 Depression Total Score: 0 05/02/19 25 10:13 AM CHURCH OFFICIAL documented as of this encounter Care Teams Bench Tool Maker Relationship Specialty [place] [address] [place] [address] PCP - General Family Medicine 12/24/20 [place] [address] [place] [address] Assigned PCP 01/04/21 Trent Qureshi MD [facility] [address] [place] [address] Orthopaedic Surgery 09/16/21 documented as of this encounter
--- OUTSIDE RECORDS SUMMARY | 2024-11-02 09:19 | XMS_ITS | Encounter Summary ---
Author Organization [place] Address [address] [place] [address] Care Team Providers Care Pick And Shovel Worker Name Role Phone Daniel Plaza MD Primary Care Provider Daniel Plaza MD Unavailable Daniel Plaza MD Unavailable Stan Barnes MD Unavailable [phone] Herb Herman MD Primary Care Provider Herb Herman MD Unavailable Stan Barnes MD Unavailable [phone] Trent Qureshi MD Unavailable [phone] Sammy Villa MD Unavailable [phone] Encounter Details Date Type Department Care Team (Late st Contact Info) Description 10/30/2014 [facility] Medical Advice [facility] [address] [address] Daniel Plaza MD [address] [phone] Social History Tobacco Use Types Packs/Day Years Used Date Smoking Tobacco: Never Smokeless Tobacco: Never Alcohol Use Standard Drinks/Week Comments No 0 (1 standard drink = 0.6 oz pur e alcohol) Comments No Sex and Gender Information Value Date Recorded Sex Assigned at Female 01/16/2019 8:38 AM CDT Legal Sex Female 3:11 AM CUSHION WORKER Gender Identity Female 01/16/2019 8:38 AM CDT Sexual Orientation Choose not to disclose 2021 11:32 AM CUSHION WORKER documented as of this encounter Miscellaneous Notes [...] on filedocumented in this encounter Care Teams Pick And Shovel Worker Relationship Specialty Start Date End Date Daniel Plaza MD [address] [place] [phone] PCP - General 06/29/10 12/23/20 Daniel Plaza MD [address] [place] [phone] PCP - Assigned PCP 02/05/08 06/13/18 [place] [address] [place] [address] PCP - General Family Medicine 12/24/20 Daniel Plaza MD [address] [place] [address] Assigned PCP 01/13/12 01/03/21 Stan Barnes MD [address] [place] [address] Assigned Surgical Provider 02/01/20 07/19/20 [place] [address] [place] [address] Assigned PCP 01/04/21 Stan Barnes MD [address] [place] [address] Assigned Surgical Provider 08/30/21 08/31/23 Trent Qureshi MD [facility] [address] [place] [address] Orthopaedic Surgery 09/16/21 Sammy Villa MD [address] [place] [address] 96 [place], [place] 769715 Assigned Neuroscience Provider 10/01/24 documented as of this encounter
--- OUTSIDE RECORDS SUMMARY | 2024-11-02 09:19 | XMS_ITS | Encounter Summary ---
Author Organization [place] Address [address] [place] [address] Care Team Providers Care Stage Setting Painter Apprentice Name Role Phone Daniel Plaza MD Primary Care Provider [phone] Daniel Plaza MD Unavailable [phone] Herb Herman MD Primary Care Provider Herb Herman MD Unavailable Stan Barnes MD Unavailable Trent Qureshi MD Unavailable [phone] Sammy Villa MD Unavailable [phone] Encounter Details Date Type Department Care Team (Late st Contact Info) Description 10/15/2020 My[facility] Medical Advice [address] [address] Yvonne Zavala Social History Tobacco [...] AM CDT Legal Sex Female 3:11 AM LIGHT BULB TESTER Gender Identity Female 01/16/2019 8:38 AM CDT Sexual Orientation Choose not to disclose 2021 11:32 AM LIGHT BULB TESTER documented as of this encounter Plan of Treatment Not on file documented as of this encounter Visit Diagnoses Not on filedocumented in this encounter Additional Health Concerns Assessment Noted Time PHQ-9 Depression Total Score: 1 06/26/19 21 11:29 AM CDT documented as of this encounter Care Teams Stage Setting Painter Apprentice Relationship Specialty Start Date End Date Daniel Plaza MD [address] [place] [phone] PCP - General 06/29/10 12/23/20 [place] [address] [place] [address] PCP - General Family Medicine 12/24/20 Daniel Plaza MD [address] [phone] Assigned PCP 01/13/12 01/03/21 [place] [address] [place] [address] Assigned PCP 01/04/21 Stan Barnes MD [address] [place] [address] Assigned Surgical Provider 08/30/21 08/31/23 Trent Qureshi MD [facility] [address] [place] [address]155 Orthopaedic Surgery 09/16/21 Sammy Villa MD [address] [place] [place] [address] Assigned Neuroscience Provider 10/01/24 documented as of this encounter
--- OUTSIDE RECORDS SUMMARY | 2024-11-02 09:19 | XMS_ITS | Encounter Summary ---
Author Organization [place] Address [facility] [place] [address] Care Team Providers Care Project Engineer Chemicals Name Role Phone Herb Herman MD Primary Care Provider [phone] Herb Herman MD Unavailable Stan Barnes MD Unavailable [phone] Trent Qureshi MD Unavailable [phone] Sammy Villa MD Unavailable Encounter Details Date Type Department Care Team (Late st Contact Info) Description 06/22/[address] [facility] [address] [place] [address] [place] [address] [place] [address] Social History Tobacco Use Types [...] Date Recorded PHQ-2 Score 0 03/08/2022 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 file documented as of this encounter Plan of Treatment Not on file documented as of this encounter Visit Diagnoses Not on filedocumented in this encounter Additional Health Concerns Assessment Noted Time PHQ-9 Depression Total Score: 0 03/08/20 22 10:26 AM HIM CLERK documented as of this encounter Care Teams Project Engineer Chemicals Relationship Specialty [place] [address] [place] [address] PCP - General Family Medicine 12/24/20 [place] [address] [place] [address] Assigned PCP 01/04/21 Stan Barnes MD [address] [place] [address] 625415 Assigned Surgical Provider 08/30/21 08/31/23 Trent Qureshi MD [facility] [address] [place] [address] 871135 Orthopaedic Surgery 09/16/21 Sammy Villa MD [address] [place] [address] 629285 Assigned Neuroscience Provider 10/01/24 documented as of this encounter
--- OUTSIDE RECORDS SUMMARY | 2024-11-02 09:19 | XMS_ITS | Encounter Summary ---
Author Organization [place] Address [address] [place] [address]. [place] [address] Care Team Providers Care Fly Finisher Name Role Phone Herb Herman MD Primary Care Provider Herb Herman MD Unavailable Trent Qureshi MD Unavailable [phone] Sammy Villa MD Unavailable [phone] Encounter Details Date Type Department Care Team (Late st Contact Info) Description 03/31/2024 MyC Medical Advice [facility] [address] [place] [address] [place] [address] [place] [address] Social History Tobacco Use Types [...] How often do you attend [facility] or sabianist services? 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 file documented as of this encounter Plan of Treatment Not on file documented as of this encounter Visit Diagnoses Not on filedocumented in this encounter Additional Health Concerns Assessment Noted Time PHQ-9 Depression Total Score: 0 05/02/19 24 10:52 AM EMPLOYEE DEVELOPMENT SPECIALIST documented as of this encounter Care Teams Fly Finisher Relationship Specialty [place] [address] [place] [address] PCP - General Family Medicine 12/24/20 [place] [address] [place] [address] Assigned PCP 01/04/21 Trent Qureshi MD [facility] [address] [place] [address] Orthopaedic Surgery 09/16/21 Sammy Villa MD [address] [place] [address] Assigned Neuroscience Provider 10/01/24 documented as of this encounter
[2024-11-02 09:23] VITALS: BP 117/72; PULSE 85; RESP 16; TEMP 36.4; O2SAT 98; BMI 37.4
--- NOTE | 2024-11-02 09:42 | CRLHL7_ITS ---
For Patients: As a result of the 21st Century Cures Act, medical imaging exams and procedure reports are released immediately into your electronic medical record. You may view this report before your referring provider. If you have questions, please contact your health care provider. INDICATION: Abdominal pain COMPARISON: December 27, 2015 TECHNIQUE: CT examination of the abdomen and pelvis was performed following the uneventful intravenous administration of 107 cc of Isovue 370. Thin section axial images were obtained from the lung bases through the pubic symphysis. Oral contrast was not administered. Please note that all CT scans at this facility use dose modulation, iterative reconstruction, and/or weight-based dosing when appropriate to reduce radiation dose to as low as reasonably achievable. FINDINGS: LUNG BASES: Left lower lobe granuloma. Lung bases otherwise unremarkable.Heart size normal the lung bases. LIVER/BILIARY SYSTEM:Granulomatous calcifications of the liver. Steatosis. No focal mass. No biliary ductal dilation. The gallbladder is distended containing multiple stones. There may be wall thickening. Sonography is advised. ADRENALS: Normal KIDNEYS, URETERS and BLADDER:Normal-sized kidneys. Low-density lesions likely cysts. No obstructive uropathy. The bladder is poorly seen due to streak artifact but shows no evident abnormality. SPLEEN:Granulomatous calcifications PANCREAS: Appears normal. RETROPERITONEUM and MESENTERY: There is no mass, adenopathy or aortic aneurysm. Atherosclerotic vascular calcification GASTROINTESTINAL SYSTEM: There is no evidence of diverticulitis, colitis, mechanical obstruction, or appendicitis. The small bowel as visualized appears normal.Fecal retention. 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 However, there is thickening of the endometrium which could be neoplastic. Further evaluation is recommended. This could be by sonography. OSSEOUS STRUCTURES and ABDOMINAL WALL: There is an age-appropriate appearance of the osseous structures.No significant abdominal wall defect. OTHER: No free fluid or free air. IMPRESSION: 1. Distended gallbladder containing multiple stones. Questionable wall thickening. Recommend sonography for further evaluation. 2. Probable thickening of the endometrium. This could be neoplastic. Additional evaluation is recommended. Sonography would be the imaging study of choice. Item number next other nonacute appearing findings as above. Please note that all CT scans at this facility use dose modulation, iterative reconstruction, and/or weight-based dosing when appropriate to reduce radiation dose to as low as reasonably achievable. Dictated by Sergio Palmer MD @ 11/02/2024 10:41:34 AM (Electronically Signed)
--- NOTE | 2024-11-02 09:43 | ED.GENADULT ---
HPI - General Adult General Chief complaint: Constipation Stated complaint: Constipation Time Seen by Provider: 11/02/24 09:38 History of Present Illness HPI narrative: Patient is a 79-year-old woman well known to me was going through a very difficult time. She has had severe low back pain secondary to spinal stenosis and she has had a recent mechanical fall. She is on anti-inflammatories and unfortunately has become constipated. Patient is not passing any gas has not had a bowel movement for a week. She has had no nausea no vomiting no fevers no chills. Her pain is stable with no recent changes. Her level of activity is the same as she still gets around with a walker. Related Data Home Medications ?Medication ?Instructions ?Recorded ?Confirmed amitriptyline 25 mg tablet 25 mg PO QPM 01/31/24 10/23/24 ergocalciferol (vitamin D2) 1,250 1,250 mcg PO .every week 01/31/24 10/23/24 mcg (50,000 unit) capsule levothyroxine 137 mcg tablet 137 mcg PO DAILY 01/31/24 10/23/24 metformin 1,000 mg tablet 1,000 mg PO BID 01/31/24 10/23/24 naproxen 500 mg tablet 500 mg PO BID PRN moderate pain 01/31/24 10/23/24 omeprazole 20 mg capsule,delayed 20 mg PO QPM 01/31/24 10/23/24 release lisinopril 20 1 tab PO DAILY 10/20/24 10/23/24 mg-hydrochlorothiazide 25 mg tablet prednisone 20 mg tablet 20 mg PO BID 10/23/24 10/23/24 Previous Rx's ?Medication ?Instructions ?Recorded aspirin 81 mg tablet 81 mg PO DAILY #90 tabs 10/03/24 clopidogrel 75 mg tablet 75 mg PO DAILY #30 tabs 10/04/24 ezetimibe 10 mg tablet (Zetia) 10 mg PO DAILY #90 tabs 10/23/24 hydrocodone 5 mg-acetaminophen 325 1 - 2 tab PO Q6-8H PRN pain #30 10/23/24 mg tablet tabs celecoxib 200 mg capsule (Celebrex) 200 mg PO DAILY #4 caps 10/26/24 Allergies Allergy/AdvReac Type Severity Reaction Status Date / Time atorvastatin Allergy Unknown Verified 10/26/24 05:04 niacin Allergy Unknown Verified 10/26/24 05:04 piroxicam Allergy Unknown Verified 10/26/24 05:04 pravastatin Allergy Unknown Verified 10/26/24 05:04 rosuvastatin Allergy Unknown Verified 10/26/24 05:04 simvastatin Allergy Unknown Verified 10/26/24 05:04 doxycycline Allergy Verified 10/26/24 05:04 erythromycin base Allergy Verified 10/26/24 05:04 morphine Allergy Verified 10/26/24 05:04 Review of Systems Status of ROS: Reports: 10 or more systems reviewed and unremarkable except as noted in History and below [facility] Medical History Hyperlipidemia ?E78.5 - Hyperlipidemia, unspecified (ICD-10) Major 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 (12/22/15) ?F32.5 - Major depressive disorder, single episode, in full remission (ICD-10) Poor balance (05/20/23) ?R26.89 - Other abnormalities of gait and mobility (ICD-10) Spinal stenosis of lumbar region with neurogenic claudication (03/20/15) ?M48.062 - Spinal stenosis, lumbar region with neurogenic claudication (ICD-10) Lumbar radiculopathy ?M54.16 - Radiculopathy, lumbar region (ICD-10) Lumbosacral radiculitis ?M54.17 - Radiculopathy, lumbosacral region (ICD-10) Lumbar spondylosis ?M47.816 - Spondylosis without myelopathy or radiculopathy, lumbar region (ICD-10) Obesity (BMI 30-39.9) ?E66.9 - Obesity, unspecified (ICD-10) Chronic kidney disease, stage 3a ?N18.31 - Chronic kidney disease, stage 3a (ICD-10) Insomnia ?G47.00 - Insomnia, unspecified (ICD-10) Acquired hypothyroidism ?E03.9 - Hypothyroidism, unspecified (ICD-10) 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 - Stenosis of larynx (ICD-10) Diabetes mellitus type 2, controlled ?E11.9 - Type 2 diabetes mellitus without complications (ICD-10) Vitamin D deficiency ?E55.9 - Vitamin D deficiency, unspecified (ICD-10) Essential hypertension ?I10 - Essential (primary) hypertension (ICD-10) Surgical History S/P total hip arthroplasty (09/21/21) ?Z96.649 - Presence of unspecified artificial hip joint (ICD-10) Social History What is your current living situation?: I presently have a place to live Problems where you live: no known problems Problems where you live details: NA In the past 12 months, utilities in danger of being shut off: no In past 12 months, lack of transportation kept you from medical appts, meetings, work, or getting things needed for daily living: no In the past 12 mos, have been you worried that your food would run out before you had money to buy more?: never true In the past 12 mos, the food you bought just didn't last and you didn't have money to buy more?: never true Highest level of school completed/degree received: Master's degree Smoking Status: Never smoker Do you use any of these nicotine containing products: None Second hand tobacco smoke exposure: No How often do you have a drink containing alcohol: never How often do you have six or more drinks on one occasion: Never AUDIT-C Alcohol total score: 0 Non-prescribed substance use: denies use Caffeine: Yes (Diet Pepsi, Daily) How often does anyone, including family, friends and others, physically hurt you: never How often does anyone, including family, friends and others, insult or talk down to you: never How often does anyone, including family, friends and others, threaten you with harm: never How often does anyone, including family, friends and others, scream or curse at you: never service: No Exam Narrative: Exam Narrative: EXAM GENERAL: Patient appears comfortable and well. EYES: No scleral icterus. LYMPH: No supraclavicular or cervical lymphadenopathy. SKIN: Visible skin seen during exam normal or with benign process only. EXT: No dependent lower extremity pedal edema. HEART: Regular rate and rhythm with no murmurs, rubs, or gallops. LUNGS: Clear to auscultation bilaterally with no crackles or wheezes. ABD: Primarily soft with hypoactive bowel sounds throughout. PSYCH: Good eye contact, speech is not pressured. Const: Vital Signs, click to edit/add: Vital Signs - 24 hr 11/02/24 09:23 Temperature 97.5 F L Pulse Rate [Pulse Oximeter] 85 Respiratory Rate 16 Blood Pressure [Ri ght Upper Arm] 117/72 Pulse Oximetry 98 Oxygen Delivery Me thod Room Air Course Course ED Course: Will start with CBC comprehensive metabolic panel and CT abdomen pelvis. Will follow up based on those results and likely increase her bowel regiment which to this point has included MiraLax and Dulcolax. Vital Signs Vital signs: Initial Vital Signs Temperature 97.5 F L 11/02/24 09:23 Temperature Source Temporal Artery Scan 11/02/24 09:23 Pulse Rate 85 11/02/24 09:23 Respiratory Rate 16 11/02/24 09:23 Blood Pressure 117/72 11/02/24 09:23 Blood Pressure Mean 87 11/02/24 09:23 Pulse Oximetry 98 11/02/24 09:23 Oxygen Delivery Method Room Air 11/02/24 09:23 Vital Signs Temperature 97.5 F L 11/02/24 09:23 Pulse Rate 85 11/02/24 09:23 Respiratory Rate 16 11/02/24 09:23 Blood Pressure 117/72 11/02/24 09:23 Pulse Oximetry 98 11/02/24 09:23 Oxygen Delivery Method Room Air 11/02/24 09:23 Temperature 97.5 F L 11/02/24 09:23 Pulse Rate 85 11/02/24 09:23 Respiratory Rate 16 11/02/24 09:23 Blood Pressure 117/72 11/02/24 09:23 Pulse Oximetry 98 11/02/24 09:23 Oxygen Delivery Method Room Air 11/02/24 09:23 Medical Decision Making MDM Narrative Medical decision making narrative: Patient who has been having increased falls and chronic low back pain presents with constipation. Labs are reassuring. I did do CT in there is no signs of bowel obstruction. She does have questionable gallbladder wall thickening but has no right upper quadrant pain. She also has a possible endometrial finding. I am her primary care doctor and we will follow-up on these things in the office. Today we will treat her with magnesium citrate 10 oz daily until she feels better. She will follow-up me in the office next week and we can discuss things further. Lab Data Labs: Lab Results 11/02/24 11/02/24 Range/Units 09:42 10:05 WBC 11.76 H (4.50-11.00) K/uL RBC 3.93 L (4.00-5.20) m/uL Hgb 12.5 (12.0-16.0) gm/dL Hct 39.3 (33.0-51.0) % MCV 100 (80-100) fL MCH 32 (26-34) pg MCHC 32 (32-36) gm/dL RDW Coeff of Arun 12.8 (11.5-15.5) % Plt Count 300 (140-440) K/uL Neut % (Auto) 77.3 H (42.0-72.0) % Lymph % (Auto) 13.9 L (20-44) % Branch % (Auto) 7.0 (0.0-11.0) % Eos % (Auto) 1.0 (0.0-7.0) % Baso % (Auto) 0.5 (0.0-3.0) % Neut # (Auto) 9.10 H (1.7-7.0) K/uL Lymph # (Auto) 1.60 (0.90-2.90) K/uL Branch # (Auto) 0.80 (0.00-0.90) K/UL Eos # (Auto) 0.10 (0.00-0.50) K/uL Baso # (Auto) 0.10 (0.00-0.30) K/uL Abs Immat Gran (auto) 0.00 (0.00-0.30) K/uL Imm/Tot Granulo (auto) 0.3 % Sodium 133 L (135-149) mmol/L Potassium 5.2 H (3.6-5.1) mmol/L Chloride 104 (96-114) mmol/L Carbon Dioxide 24 (20-32) mmol/L Anion Gap 5 L (7-15) mEq/L BUN 42 H (7-30) mg/dL Creatinine 1.1 (0.5-1.5) mg/dL Estimated Creat Clear 36.98 Estimated GFR 52 ml/min Glucose 150 H (60-115) mg/dL Calcium 9.9 (8.4-10.6) mg/dL Total Bilirubin 0.5 (0.1-1.5) mg/dL AST 26 (12-35) U/L ALT 21 (4-35) U/L Alkaline Phosphatase 67 (40-150) U/L Total Protein 7.0 (6.0-8.3) g/dL Albumin 3.8 (3.3-5.0) g/dL Discharge Plan Discharge Clinical Impression: Constipation Patient Disposition: Home, Self-Care Condition: Stable Instructions: Constipation (ED) Additional Instructions: Magnesium citrate 10 oz daily. Glycerin suppository daily as needed Follow-up with Dr. Ponce next week. Activity Level: No Restrictions Discharge Diet: Regular Prescriptions: No Action prednisone 20 mg tablet 20 mg PO BID ezetimibe [Zetia] 10 mg tablet 10 mg PO DAILY Qty: 90 3RF hydrocodone-acetaminophen 5-325 mg tablet 1 - 2 tab PO Q6-8H PRN (Reason: pain) Qty: 30 0RF lisinopril-hydrochlorothiazide 20-25 mg tablet 1 tab PO DAILY levothyroxine 137 mcg tablet 137 mcg PO DAILY amitriptyline 25 mg tablet 25 mg PO QPM metformin 1,000 mg tablet 1,000 mg PO BID omeprazole 20 mg capsule,delayed release(DR/EC) 20 mg PO QPM ergocalciferol (vitamin D2) 1,250 mcg (50,000 unit) capsule 1,250 mcg PO .every week naproxen 500 mg tablet 500 mg PO BID PRN (Reason: moderate pain) aspirin 81 mg tablet 81 mg PO DAILY Qty: 90 0RF clopidogrel 75 mg tablet 75 mg PO DAILY Qty: 30 2RF celecoxib [Celebrex] 200 mg capsule 200 mg PO DAILY Qty: 4 0RF Rx Instructions: Take once daily in the morning for neck sprain, 1st dose given in ED, next dose due 10/27 Follow Up/Referrals: Miki Ponce MD [Primary Care Provider, Internal Medicine] Stand Alone Forms: [employer] Info Instructions
[2024-11-02 10:10] LABS: Hematocrit 39.3 % (33.0-51.0); Hemoglobin* 12.5 gm/dL (12.0-16.0); Immature Granulocytes Pct Auto 0.3 %; Mean Corpuscular HGB Conc 32 gm/dL (32-36); Mean Corpuscular Hemoglobin 32 pg (26-34); Mean Corpuscular Volume 100 fL (80-100); RDW Coefficient of Variation % 12.8 % (11.5-15.5); Red Blood Count 3.93 m/uL (4.00-5.20); White Blood Count* 11.76 K/uL (4.50-11.00)
[2024-11-02 10:13] LABS: Immature Granulocytes Abs Auto 0.00 K/uL (0.00-0.30); Lymphocytes Absolute Auto 1.60 K/uL (0.90-2.90); Slide Review Reflex No
[2024-11-02 10:27] LABS: Albumin* 3.8 g/dL (3.3-5.0); Chloride* 104 mmol/L (96-114); Potassium* 5.2 mmol/L (3.6-5.1); Sodium* 133 mmol/L (135-149)
[2024-11-02 10:29] LABS: Anion Gap 5 mEq/L (7-15); Bilirubin Total* 0.5 mg/dL (0.1-1.5); Blood Urea Nitrogen* 42 mg/dL (7-30); Carbon Dioxide* 24 mmol/L (20-32); Creatinine* 1.1 mg/dL (0.5-1.5); Est. Creatinine Clearance* 36.98; Estimated Glomerular Filt Rate 52 ml/min
[2024-11-02 10:30] LABS: Alanine Aminotransferase* 21 U/L (4-35); Alkaline Phosphatase* 67 U/L (40-150); Aspartate Amino Transferase* 26 U/L (12-35); Calcium* 9.9 mg/dL (8.4-10.6); Glucose* 150 mg/dL (60-115); Total Protein* 7.0 g/dL (6.0-8.3)
[2024-11-02] MEDS: MAGNESIUM CITRATE 300 ML SOLUTION PO (11:22)
== END 2024-11-02 11:40 | disposition home or self-care (01) ==
PROVIDERS: Emergency Provider Internal Medicine; PCP Internal Medicine
DX: K59.00 Constipation, unspecified (principal)
CPT/HCPCS: 36415; 74177; 80053; 85025; 99283; 99284; A9270; Q9967

== ENCOUNTER 2024-11-14 09:05 | Observation (INO) | payer MEDICARE, OTHER, SELFPAY ==
--- OUTSIDE RECORDS SUMMARY | 2024-10-08 15:30 | XMS_ITS | Encounter Summary ---
Author Organization [place] Address [address] [place] [address] Care Team Providers Care Hris Administrator Name Role Phone Herb Herman MD Primary Care Provider Herb Herman MD Unavailable Trent Qureshi MD Unavailable [phone] Sammy Villa MD Unavailable Reason for Referral * Consultation (Priority: 1-2 Weeks) - Pending Review Specialty Diagnoses / Procedures Referred By Ambreen allen Referred To Contact Diagnoses TIA (transient ischemic attack) [place] [address] [place] [address] Phone: tel: fax: [facility] [address] [place] [address] Phone: tel: fax: Referral ID Status Reason Start Date Expiration Date V isits Requested Visits Authorized [id number] Pending Review 10/08/2024 10/08/2025 1 1 Question Answer Reason for Referral: Stroke Patient Scheduling Instructions: [facility] will call you to coordinate your care as prescribed by your provider. If you don't hear from a senior patient account representative within 2 business days, please call . Additional Information: series of TIA; was in [facility] Comments Please be aware that coverage of these services is subject to the terms and limitations of your health insurance plan. Call member services at your health plan with any benefit or coverage questions. [facility] will call you to coordinate your care as prescribed by your provider. If you don't hear from a senior patient account representative within 2 business days, please call . Reason for Visit * Reason Comments Hospital F/U Encounter Details Date Type Department Care Team (Late st Contact Info) Description 10/08/2024 3:30 PM CDT Office Visit [address] [address] [place] [address] [place] [address] TIA (transient ischemic attack) (Primary [...] Answer Date Recorded PHQ-2 Score 6 10/08/2024 [facility] - Occupational Stress Questionnaire [...] CDT Legal Sex Female 3:11 AM [employer] Gender Identity Female 01/16/2019 8:38 AM CDT Sexual Orientation Choose not to disclose 2021 11:32 AM [employer] Occupation Industry Job Start Date Job End [...] Care Everywhere. * TIA (Transient Ischemic Attack) ([place] Konger) documented in this encounter Progress Notes * [...] not follow-up with neurology. - Adult Neurology Hot Mill Operator Referral Chronic kidney disease, stage 3a (H) [...] Questions Roomed by Ki Reese Accompanied by [facility] Hospital Follow-up Visit: Hospital/Usp/IP Rehab Facility: [facility] Date of Admission: 10-02-24 Date of [...] Associated Diagnoses Orde r Schedule Adult Neurology Hot Mill Operator Referral Referral Priority: 1-2 Weeks TIA (transient [...] documented as of this encounter Care Teams Hris Administrator Relationship Specialty [place] [address] [place] [address] PCP - General Family Medicine 12/24/20 [place] [address] [place] [address] Assigned PCP 01/04/21 Trent Qureshi MD [facility] [address] [place] [address] [phone] Orthopaedic Surgery 09/16/21 Sammy Villa MD [address] [place] [address] [phone] Assigned Neuroscience Provider 10/01/24 documented as of this encounter
--- OUTSIDE RECORDS SUMMARY | 2024-10-18 14:00 | XMS_ITS | Encounter Summary ---
Author Organization [facility] Address [address] [place] [address] Care Team Providers Care Hazardous Substances Scientist Name Role Phone Herb Herman MD Primary Care Provider [phone] Reason for Referral * PT/OT/ST (Routine) - Authorized Specialty Diagnoses / Procedures Referred By Ambreen allen Referred To Contact Occupational Therapy Diagnoses Right hand weakness Right hand paresthesia Felisha Perez APRN, CNP [address] [place] [address] Phone: tel: fax: Referral ID Status Reason Start Date Expiration Date Visits Requested Visits Authorized [id number] Authorized Specialty Services Required 10/18/2024 1 1 Comments Right hand numbness/weakness, difficulty w. iADL, writing, eval/treat. * Consultation (Routine) - Authorized Specialty Diagnoses / Procedures Referred By Ambreen allen Referred To Contact Physical Therapy Diagnoses Abnormality of gait and mobility History of multiple strokes Felisha Perez APRN, CNP [address] [place] [address] Phone: tel: fax: Referral ID Status Reason Start Date Expiration Date Visits Requested Visits Authorized [id number] Authorized Specialty Services Required 10/18/2024 1 1 Question Answer Service to provide Physical Therapy Referral reason Evaluate and Treat Comments Right leg weakness/ataxia, decreased mobility, post stroke eval/treat * PT/OT/ST (Routine) - Authorized Specialty Diagnoses / Procedures Referred By Ambreen allen Referred To Contact Speech Pathology Diagnoses Speech disturbance, unspecified type History of multiple strokes Felisha Perez APRN, CNP [address] [place] [address] Phone: tel: fax: Referral ID Status Reason Start Date Expiration Date Visits Requested Visits Authorized [id number] Authorized Specialty Services Required 10/18/2024 1 1 Comments Stroke, fluctuating speech changes * (Routine) - Open Specialty Diagnoses / Procedures Referred By Ambreen allen Referred To Contact Diagnoses Speech disturbance, unspecified type History of multiple strokes Procedures MRI BRAIN W/O CON Efren Elena MD [address] [place] [address] Phone: tel: fax: Referral ID Status Reason Start Date Expiration Date Visits Re quested Visits Authorized [id number] Open 01/04/2025 1 1 * (Routine) - Open Specialty Diagnoses / Procedures Referred By Ambreen allen Referred To Contact Diagnoses Speech disturbance, unspecified type History of multiple strokes Procedures ZIO MONITOR REGISTRATION Felisha Perez APRN, CNP [address] [place] [address] Phone: tel: fax: Referral ID Status Reason Start Date Expiration Date Visits Re quested Visits Authorized [id number] Open 10/18/2024 1 1 * (Routine) - Open Specialty Diagnoses / Procedures Referred By Ambreen allen Referred To Contact Diagnoses Speech disturbance, unspecified type History of multiple strokes Procedures ZIO MONITOR REGISTRATION Felisha Perez APRN, CNP [address] [place] [address] Phone: tel: fax: Referral ID Status Reason Start Date Expiration Date Visits Re quested Visits Authorized [id number] Open 10/18/2024 1 1 Reason for Visit * Reason Comments Consultation Stroke Encounter Details Date Type Department Care Team (Late st Contact Info) Description 10/18/2024 2:00 PM CDT Office Visit [facility] [address] [place] [id number] Felisha Perez APRN, CNP [address] [place] [id number] Speech disturbance, unspecified type (Primary Dx); Abnormality of gait and mobility; History of multiple strokes; Right hand weakness; Right hand paresthesia; Essential hypertension Social History Tobacco Use Types Packs/Day Years Used Date Smoking Tobacco: Never Passive Smoke Exposure: Never Smokeless Tobacco: Never Tobacco Cessation:Counseling Given: No Alcohol Use Standard Drinks/Week Comments Not Currently 0 (1 standard drink = 0.6 oz pur e alcohol) Comments Unknown Sex and Gender Information Value Date Recorded Sex Assigned at Not on file Legal Sex Female 12:43 PM CDT Gender Identity Female 10/15/2024 1:29 PM CDT Sexual Orientation Not on file documented as of this encounter Last Filed Vital Signs Vital Sign Reading Time Taken Comments Blood Pressure - - Pulse - - Temperature - - Respiratory Rate - - Oxygen Saturation - - Inhaled Oxygen Concentration - - Weight 99.3 kg (219 lb) 10/18/2024 2:09 PM CDT Height 162.6 cm (5' 4) 10/18/2024 2:09 PM CDT Body Mass Index 37.59 10/18/2024 2:09 PM CDT documented in this encounter Patient Instructions * Patient Instructions* Felisha Perez APRN, CNP - 10/18/2024 2:00 PM CDT - documented in this encounter Progress Notes * Felisha Perez APRN, CNP - 10/18/2024 2:00 PM CDT Images from the original note were not included. [facility] [address] [place] [address], [address] [place] [address] Neurology Initial Note / Consultation Assessment and Plan: #. Multiple Stroke -- initial sx: garbled speech -- exam: unsteady gait, positive romberg, right hand weakness/altered sensation -- risk factors: HLD, CKD, HTN, elevated BMI, DM -- [facility] records not able to be obtained prior to visit to review -- per pt obtained echo w/o acute concern, Hgb A1c 6.6, will request records & to eval for vessel imaging, lipid panel -- Continue dual antiplatelet therapy until completion of 90 days -- MRI 10/02: infarcts in L guerin radiata, left basal ganglia, L cerebellar hemisphere ----Repeat MRI in 3 months to reeval for evolution versus new infarct/bleed -- BP goal <130/80, LDL <70, lifestyle changes, recommended following up with PCP #. Diabetes -- Hgb A1c 7.1 04/2024, per pt in hospital 6.6 -- follow up w. PCP for further management, stroke risk factor #. Hypertension -- per chart review not controlled (05/02/24 PCP note) --changed to lisinopril-chlorothiazide -- goal <130/80, management per PCP #. Low back pain --management per pcp/clinic, could consider Cymbalta or lyrica -- role in gait/balance above I reviewed multiple previous chart documents and imaging studies for this encounter. The differential diagnosis, prognosis, pathophysiology, etiology, and treatment options, side effects and complications and the relative benefits of treatment options were discussed in detail with the patient and family. I will see the patient back in follow up in ~3 month . If I can provide any further information or answer any questions in the interim, the patient or family is welcome to contact me. Chief Complaint: Consultation and Stroke History of Present Illness: HPI: Angela Lamar is a 78 y.o. female who presents for a neurological consultation for evaluation of 3-4 strokes at the request of Herb Herman MD 10/18/24: Patient presents today accompanied by for posthospital stroke evaluation. Patientnotes that she had 3 of 4 TIAs. Last 1 being 03 October. She reports that affected her left side wherethe blood clot broke off causing a stroke. Her speech has been garbled ever since. Also notes tingling in her right upper extremity fingers with numbness in the digits 1-3. Was in the hospital October 02 for observation then again the , and the in the ER. Initial episodes of garbled speech only last 1 to 2 minutes in duration. Now fluctuating episodes of garbled/slurred speech. Endorses not being back to baseline. Also notes right leg discoordination. She feelslike the right leg movement is more difficult. And abnormalities in her gait and balance with poor mobility. She notes that her primary care provider is at [facility] until November. No prior occurrences of transient neurologic episodes such as above other than the right hand numbness tingling related to her known disc disease currently undergoing back injections through her Ortho provider. She denies any known history of atrial fibrillation. Notes that she has trouble sleeping through the night. denies loud snoring. Patient reports that she has lost 27 pounds intentionally since June 2024. Currently on both aspirin and Plavix since the stroke. She denies any blurry vision or double vision. Regular diet. Following her observation/hospital stay no therapies ordered. She feels like she is not at baseline. HPI and PMH was supplemented via EHR and Care everwhere review - 10/08/2024 family medicine provider note: TIA (transient ischemic attack) Patient sustained a [...] Plavix, she was unable to tolerate statins. Past Medical History: No past medical history on file. Past Surgical History: No past surgical history on file. Medications: Current Outpatient Medications: Medication Sig amitriptyline (ELAVIL) 25 mg oral tablet Take 1 tablet (25 mg) by mouth Daily. amoxicillin (AMOXIL) 500 mg oral capsule TAKE 4 TABLETS by mouth 1 HOUR BEFORE DENTAL APPOINTMENT.* aspirin 81 mg oral enteric coated tablet Take 1 tablet (81 mg) by mouth once daily. blood sugar diagnostic Strip testing strips USE TO TEST BLOOD GLUCOSE LEVELS ONCE DAILY. clopidogrel (PLAVIX) 75 mg oral tablet Take 1 tablet (75 mg) by mouth Daily. ergocalciferol (VITAMIN D2) 1,250 mcg (50,000 unit) oral capsule TAKE ONE CAPSULE BY MOUTH WEEKLY ON WEDNESDAYS ezetimibe (ZETIA) 10 mg oral tablet Take 1 tablet (10 mg) by mouth Daily. levothyroxine (SYNTHROID) 137 mcg oral tablet Take 1 tablet (137 mcg) by mouth Daily. lisinopriL-hydrochlorothiazide (ZESTORETIC) 20-25 mg oral tablet TAKE ONE TABLET BY MOUTH ONE TIME DAILY* metFORMIN (GLUCOPHAGE) 1,000 mg oral tablet Take 1 tablet (1,000 mg) by mouth twice a day. omeprazole (PRILOSEC) 20 mg oral delayed release capsule TAKE ONE CAPSULE BY MOUTH ONE TIME DAILY as needed.* traZODone (DESYREL) 50 mg oral tablet Take 1 tablet (50 mg) by mouth Daily. Allergy: Morphine, Doxycycline, Atorvastatin, Erythromycin, Niacin, Piroxicam, Pravastatin, Rosuvastatin, and Simvastatin Family History: No family history on file. Social History: Social History Socioeconomic History Marital status: Spouse name: Not on file Number of children: Not on file Years of education: Not on file Highest education level: Not on file Occupational History Not on file Tobacco Use Smoking status: Never Passive exposure: Never Smokeless tobacco: Never Substance and Sexual Activity Alcohol use: Not Currently Drug use: Never Sexual activity: Not on file Other Topics Concern Not on file Social History Narrative Not on file Social Drivers of Health Financial Resource Strain: High Risk (04/25/2023) Received from [facility] Financial Resource Strain Within the past 12 months, have you or your family members you live with been unable to get utilities (heat, electricity) when it was really needed?: Yes Food Insecurity: Low Risk (04/25/2023) Received from [facility] Food Insecurity Within the past 12 months, did you worry that your food would run out before you got money to buy more?: No Within the past 12 months, did the food you bought just not last and you didn???t have money to getmore?: No Transportation Needs: Low Risk (04/25/2023) Received from [facility] Transportation Needs Within the past 12 months, has lack of transportation kept you from medical appointments, getting your medicines, non-medical meetings or appointments, work, or from getting things that you need?: No Physical Activity: Inactive (06/08/2021) Received from [facility] Exercise Vital Sign Days of Exercise per Week: 0 days Minutes of Exercise per Session: 0 min Stress: No Stress Concern Present (06/08/2021) Received from [facility] [employer] - Occupational Stress Questionnaire Feeling of Stress : Not at all Social Connections: Moderately Integrated (06/08/2021) Received from [facility] Social Connection and Isolation Panel [NHANES] Frequency of Communication with Friends and Family: More than three times a week Frequency of Social Gatherings with Friends and Family: Three times a week Attends Buddhist Services: More than 4 times per year Active Member of Clubs or Organizations: No Attends Club or Organization Meetings: Not on file Marital Status: Intimate Partner Violence: Low Risk (05/02/2023) Received from [facility] Interpersonal Safety Do you feel physically and emotionally safe where you currently live?: Yes Within the past 12 months, have you been hit, slapped, kicked or otherwise physically hurt by someone?: No Within the past 12 months, have you been humiliated or emotionally abused in other ways by your partner or ex-partner?: No Housing Stability: Low Risk (04/25/2023) Received from [facility] Housing Stability Do you have housing? (Housing is defined as stable permanent housing and does not include staying outside in a car, in a tent, in an abandoned building, in an overnight detention, or couch-surfing.): Yes Are you worried about losing your housing?: No Review of System: A comprehensive review of 10 systems was performed and found to be negative except as described in this note CONSTITUTIONAL: negative for fever, chills, change in weight INTEGUMENTARY/SKIN: no rash or obvious new lesions ENT/MOUTH: no sore throat, new sinus pain or nasal drainage, no neck mass noted RESP: No pleuretic pain, No cough, no hemoptysis, No SOB CV: negative for chest pain, palpitations or peripheral edema GI: no nausea, vomiting, change in stools : no dysuria or hematuria MUSCULOSKELETAL: no joint effusion ENDOCRINE: no history of polyuria, polydyspsia or symptoms of thyroid dysfunction PSYCHIATRIC: no change in mood stable LYMPHATIC: no new lymphadenopathy HEME: no bleeding or easy bruisability NEURO: see HPI Physical Exam: Ht 5' 4 (1.626 m) Wt 99.3 kg (219 lb) BMI 37.59 kg/m?? GENERAL: The patient is alert, cooperative and well-groomed. Dressed appropriately for the situation and weather. In no apparent acute distress. HEENT: Head is atraumatic and normocephalic. Hearing is normal. Mucosa is intact. Sinus palpation is unremarkable. Neck is supple. Facial movement and facial sensation is normal. Temporal artery and temporomandibular joint palpation is unremarkable. LUNGS: No audible wheezing SKIN: No rash or lesions are noted. EXTREMITIES: No clubbing or cyanosis NEUROLOGIC EXAMINATION MENTAL STATUS: The patient is able to respond to simple commands and questions appropriately. Speech, orientation, memory, fund of knowledge, attention and concentration are normal. CRANIAL NERVES II THROUGH XII: II - XII are intact. EOM intact, no nystagmus. Tongue midline, without tremor or fasciculations. MOTOR EXAMINATION: Muscle tone and bulk are normal throughout, without wasting or fasciculations. Strength testing is unremarkable and upper and lower extremities Deltoid Right: 5/5 Left: 5/5 Biceps Right: 5/5 Left: 5/5 Triceps Right: 5/5 Left: 5/5 Digit Extensors Right: 5/5 Left: 5/5 Interosseus Right 4/5 Left: 5/5 Hip Flexion Right 5/5 Left: 5/5 Plantar flexion Right: 5/5 Left: 5/5 Dorsiflexion Right: 5/5 Left: 5/5 Eversion Right: 5/5 Left: 5/5 Inversion Right 5/5 Left: 5/5 DEEP TENDON REFLEXES: are normal and symmetric. SENSORY EXAMINATION: Sensation is intact and symmetric to vibration, touch and pin. No spinal sensory level is detected. CEREBELLAR EXAMINATION: No dysdiadochokinesis or dysmetria is noted, and coordination is normal. Romberg is positive. FTN intact BUE. GAIT: Abnormal, slow, reduced steppage. walks w. Walker. Data: ROUTINE LABS Component 05/02/24 08/01/23 05/02/23 08/02/22 01/15/22 06/08/21 Estimated Average Glucose 157 High -- -- -- -- -- Hemoglobin A1C 7.1 High 7.1 High 7 High 7.7 High 6.6 High 7.2 High Component 05/02/24 08/01/23 08/02/22 06/08/21 06/20/20 05/28/19 TSH 1.54 1.63 0.46 1.57 1.68 2.23 Cardiac: Neurophysiology: IMAGING: All imaging studies were reviewed personally MRI brain: 10/05/2024 1. Interval increase size of cytotoxic edema associated with left basal ganglia and guerin radiata infarcts. 2. Stable small left cerebellar acute/subacute infarct. 3. Mild chronic ischemic microvascular disease MRI brain 10/02/2024 1. Small acute to early subacute infarctions within the left guerin radiata, left basal ganglia, left cerebellar hemisphere. 2. Chronic lacunar infarctions right cerebellar hemisphere. 3. Mild chronic microvascular ischemic changes and diffuse cerebral volume loss. MIPS: Documentation of current mediations reviewed every visit 2. Does patient use tobacco? No 3. Gait is ataxic. Station: Able to stand with difficulty, Romberg's sign is positive 4. Does patient have Dementia? No I am the single focal point of care for a condition that requires longitudinal relationship and personalized care for condition(s) specified within this medical record. TIME: I spent 67 minutes on the date of the encounter with this patient consisting of activities before, during, and after the encounter including time spent: Preparing to see the patient including review of the chart, tests, and/or outside records. Reviewing and verifying information regarding the chief complaint and history already recorded by ancillary staff and/or the patient. Obtaining history and performing medically appropriate evaluation. Counseling the patient regarding the diagnosis, additional diagnostic considerations, possible diagnostic testing, and any potential options for therapy, including conservative/lifestyle measures andpharmacotherapy including risks/benefits, side effects, and adverse effects. I also counseled the patient on how to contact me with any questions or concerns, new or worsening symptoms. Ordering medications, tests, and/or procedures, and documenting in the chart. Due to the use of computer voice recognition in this documentation, there is a possibility of sound-alike errors that might be missed during proofreading. Felisha Perez APRN, CNP documented in this encounter Plan of Treatment Scheduled Orders Name Type Priority Associated Diagnoses Orde r Schedule ZIO MONITOR REGISTRATION EKG Routine Speech disturbance, unspecified type History of multiple strokes Ordered: 10/18/2024 ZIO MONITOR REGISTRATION EKG Routine Speech disturbance, unspecified type History of multiple strokes Ordered: 10/18/2024 MRI BRAIN W/O CON Imaging Routine Speech disturbance, unspecified type History of multiple strokes Expected: 01/04/2025, Expires: 10/18/2025 Scheduled Referrals Name Type Priority Associated Diagnoses Orde r Schedule REFERRAL SPEECH THERAPY Follow Up Routine Speech disturbance, unspecified type History of multiple strokes Ordered: 10/18/2024 REFERRAL PHYSICAL THERAPY Follow Up Routine Abnormality of gait and mobility History of multiple strokes Ordered: 10/18/2024 REFERRAL OCCUPATIONAL THERAPY Follow Up Routine Right hand weakness Right hand paresthesia Ordered: 10/18/2024 documented as of this encounter Visit Diagnoses Diagnosis Speech disturbance, unspecified type- Primary Abnormality of gait and mobility Abnormality of gait History of multiple strokes Right hand weakness Muscle weakness (generalized) Right hand paresthesia Disturbance of skin sensation Essential hypertension Unspecified essential hypertension documented in this encounter Care Teams Hazardous Substances Scientist Relationship Specialty [place] [id number] [place] [address] PCP - General Family Medicine - 10/18/24 documented as of this encounter
[2024-11-14] VITALS (12 sets, daily range): BP systolic 108–139; BP diastolic 42–82; PULSE 70–82; RESP 16–18; TEMP 35.9–36.8; O2SAT 94–100; BMI 36.6; BMI 37.0; BMI 37.1
--- NOTE | 2024-11-14 | CRLHL7_ITS ---
For Patients: As a result of the Century Cures Act, medical imaging exams and procedure reports are released immediately into your electronic medical record. You may view this report before your referring provider. If you have questions, please contact your health care provider. INDICATION: Right upper quadrant abdomen pain. TECHNIQUE: Ultrasound abdomen limited. Sonographic images of the right upper quadrant were obtained using melgar-scale and color Doppler images. COMPARISON: CT abdomen and pelvis 11/02/2024. FINDINGS: Gallbladder: Cholelithiasis. Normal wall thickness. No pericholecystic fluid. Negative sonographic Rivas`s sign Common bile duct: 5 mm. IMPRESSION: Cholelithiasis without evidence of cholecystitis. Dictated by Vicki Farah MD @ 11/14/2024 11:39:32 AM (Electronically Signed)
--- OUTSIDE RECORDS SUMMARY | 2024-11-14 09:09 | XMS_ITS | Encounter Summary ---
Author Organization [facility] Address [address] [place] [address]. [place] [address] Care Team Providers Care Marketing Planner Name Role Phone Herb Herman MD Primary Care Provider [phone] Herb Herman MD Unavailable Trent Qureshi MD Unavailable [phone] Sammy Villa MD Unavailable [phone] Encounter Details Date Type Department Care Team (Late st Contact Info) Description 10/24/2024 [facility] [place] [facility] Neurology [address], [address] [place] [phone] Ana Lasren, IRENE Social History Tobacco Use Types Packs/Day [...] How often do you attend chur or zoroastrianism services? More than 4 times [...] Answer Date Recorded PHQ-2 Score 6 10/08/2024 [facility] [place] [facility] - Occupational Stress [...] AM CDT Legal Sex Female 3:11 AM DRAMA THERAPIST Gender Identity Female 01/16/2019 8:38 AM CDT Sexual Orientation Choose not to disclose 2021 11:32 AM DRAMA THERAPIST Occupation Industry Job Start Date Job End [...] documented as of this encounter Care Teams Marketing Planner Relationship Specialty [place] [address] [place] [address] PCP - General Family Medicine 12/24/20 [place] [address] [place] [address] Assigned PCP 01/04/21 Trent Qureshi MD [facility] [address] [place] [address] [phone] Orthopaedic Surgery 09/16/21 Sammy Villa MD [address] [place] [address] Assigned Neuroscience Provider 10/01/24 documented as of this encounter
--- OUTSIDE RECORDS SUMMARY | 2024-11-14 09:09 | XMS_ITS | Encounter Summary ---
Author Organization [facility] Address [facility] [place] [address] Care Team Providers Care Silversmith Apprentice Name Role Phone Herb Herman MD Primary Care Provider Herb Herman MD Unavailable Stan Barnes MD Unavailable [phone] Trent Qureshi MD Unavailable [phone] Sammy Villa MD Unavailable Reason for Visit * Reason Onset Date Comments MyChart Communication 07/14/2022 Encounter Details Date Type Department Care Team (Latest Contact Info) Description 07/14/2022 MyC Medical Advice [facility] [id number] [place] [phone] [place] [address] [place] [address] MyChart Communication Social History Tobacco [...] Answer Date Recorded PHQ-2 Score 0 03/08/2022 [facility] - Occupational Stress Questionnaire Answer [...] AM CDT Legal Sex Female 3:11 AM CRIME SCENE ANALYST Gender Identity Female 01/16/2019 8:38 AM CDT Sexual Orientation Choose not to disclose 2021 11:32 AM CRIME SCENE ANALYST Occupation Industry Job Start Date Job [...] Bueno RN - 07/14/2022 10:04 AM CDT [employer] message sent to patient, reply requested. Virginia Bueno R.N. documented in this encounter Plan of Treatment Not on file documented as of this encounter Visit Diagnoses Not on filedocumented in this encounter Additional Health Concerns Assessment Noted Time PHQ-9 Depression Total Score: 0 03/08/20 10:26 AM CRIME SCENE ANALYST documented as of this encounter Care Teams Silversmith Apprentice Relationship Specialty [place] [address] [place] [address] PCP - General Family Medicine 12/24/20 [place] [address] [place] [address] Assigned PCP 01/04/21 Stan Barnes MD [address] [place] [address] Assigned Surgical Provider 08/30/21 08/31/23 Trent Qureshi MD [facility] [address] [place] [address] Orthopaedic Surgery 09/16/21 Sammy Villa MD [address] [place] [address] [phone] Assigned Neuroscience Provider 10/01/24 documented as of this encounter
--- OUTSIDE RECORDS SUMMARY | 2024-11-14 09:09 | XMS_ITS | Encounter Summary ---
Author Organization [facility] Address [address] [place] [address] Care Team Providers Care Marketing Program Coordinator Name Role Phone Daniel Plaza MD Primary Care Provider Daniel Plaza MD Unavailable [phone] Daniel Plaza MD Unavailable Stan Branes MD Unavailable [phone] Herb Herman MD Primary Care Provider [phone] Herb Herman MD Unavailable Stan Barnes MD Unavailable [phone] Trent Qureshi MD Unavailable [phone] Sammy Villa MD Unavailable [phone] Encounter Details Date Type Department Care Team (Late st Contact Info) Description 11/28/2001 Abstract [facility] [address] [phone] Daniel Plaza MD [address] [phone] Social History Tobacco Use Types Packs/Day Years Used Date Smoking Tobacco: Never Assessed Comments No Sex and Gender Information Value Date Recorded Sex Assigned at Female 01/16/2019 8:38 AM CDT Legal Sex Female 3:11 AM ELEMENTARY SUPERVISOR Gender Identity Female 01/16/2019 8:38 AM CDT Sexual Orientation Choose not to disclose 2021 11:32 AM ELEMENTARY SUPERVISOR documented as of this encounter Plan of Treatment Not on file documented as of this encounter Visit Diagnoses Not on filedocumented in this encounter Care Teams Marketing Program Coordinator Relationship Specialty Start Date End Date Daniel Plaza MD [address] [place] [phone] PCP - General 06/29/10 12/23/20 Daniel Plaza MD [address] [place] [phone] PCP - Assigned PCP 02/05/08 06/13/18 [place] [address] [place] [address] PCP - General Family Medicine 12/24/20 Daniel Plaza MD [address] [place] [phone] Assigned PCP 01/13/12 01/03/21 Stan Barnes MD [address] [place] [address] Assigned Surgical Provider 02/01/20 07/19/20 [place] [address] [place] [address] Assigned PCP 01/04/21 Stan Barnes MD [address] [place] [address] Assigned Surgical Provider 08/30/21 08/31/23 Trent Qureshi MD [facility] [address] [place] [address] Orthopaedic Surgery 09/16/21 Sammy Villa MD [address] [place] [address] [address] [place] [address] Assigned Neuroscience Provider 10/01/24 documented as of this encounter
--- OUTSIDE RECORDS SUMMARY | 2024-11-14 09:09 | XMS_ITS | Encounter Summary ---
Author Organization [facility] Address [address] [place] [address] Care Team Providers Care Machinist 2Nd Shift Name Role Phone Daniel Plaza MD Primary Care Provider Daniel Plaza MD Unavailable [phone] Daniel Plaza MD Unavailable Stan Barnes MD Unavailable [phone] Herb Hreman MD Primary Care Provider Herb Herman MD Unavailable Stan Barnes MD Unavailable [phone] Trent Qureshi MD Unavailable [phone] Sammy Villa MD Unavailable Encounter Details Date Type Department Care Team (Late st Contact Info) Description 06/23/2011 MyC Medical Advice [facility] [address] [phone] Daniel Plaza MD [address] [phone] Social History Tobacco Use Types Packs/Day Years Used Date Smoking Tobacco: Never Smokeless Tobacco: Never Alcohol Use Standard Drinks/Week Comments No 0 (1 standard drink = 0.6 oz pur e alcohol) Comments No Sex and Gender Information Value Date Recorded Sex Assigned at Female 01/16/2019 8:38 AM CDT Legal Sex Female 3:11 AM RUG WASHER Gender Identity Female 01/16/2019 8:38 AM CDT Sexual Orientation Choose not to disclose 2021 11:32 AM RUG WASHER documented as of this encounter Plan of Treatment Not on file documented as of this encounter Visit Diagnoses Not on filedocumented in this encounter Care Teams Machinist 2Nd Shift Relationship Specialty Start Date End Date Daniel Plaza MD [address] [place] [phone] PCP - General 06/29/10 12/23/20 Daniel Plaza MD [address] [place] [phone] PCP - Assigned PCP 02/05/08 06/13/18 [place] [address] [place] [address] PCP - General Family Medicine 12/24/20 Daniel Plaza MD [address] [place] [phone] Assigned PCP 01/13/12 01/03/21 Stan Barnes MD [address] [place] [address] Assigned Surgical Provider 02/01/20 07/19/20 [place] [address] [place] [address] Assigned PCP 01/04/21 Stan Barnes MD [address] [place] [address] [phone] Assigned Surgical Provider 08/30/21 08/31/23 Trent Qureshi MD [facility] [address] [place] [address] [phone] Orthopaedic Surgery 09/16/21 Sammy Villa MD [address] [facility] 96 [place], [place] [address] Assigned Neuroscience Provider 10/01/24 documented as of this encounter
--- OUTSIDE RECORDS SUMMARY | 2024-11-14 09:09 | XMS_ITS | Encounter Summary ---
Author Organization [facility] Address [address] [place] [address] Care Team Providers Care Ship Yard Electrical Person Name Role Phone Herb Herman MD Primary Care Provider [phone] Herb Herman MD Unavailable Trent Qureshi MD Unavailable [phone] Sammy Villa MD Unavailable [phone] Encounter Details Date Type Department Care [...] any clubs o r organizations such as jain groups, unions, fraternal or athletic groups, or [...] Answer Date Recorded PHQ-2 Score 6 10/08/2024 [facility] - Occupational Stress Questionnaire [...] CDT Legal Sex Female 3:11 AM ROLL SETTER Gender Identity Female 01/16/2019 8:38 AM CDT Sexual Orientation Choose not to disclose 2021 11:32 AM ROLL SETTER 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 file documented as of this encounter Plan of Treatment Not on file documented as of this encounter Visit Diagnoses Not on filedocumented in this encounter Additional Health Concerns Assessment Noted Time PHQ-9 Depression Total Score: 025 3:11 PM CDT documented as of this encounter Care Teams Ship Yard Electrical Person Relationship Specialty [place] [address] [place] [address] PCP - General Family Medicine 12/24/20 [place] [address] [place] [address] Assigned PCP 01/04/21 Trent Qureshi MD [facility] [address] [place] [id number] Orthopaedic Surgery 09/16/21 Sammy Villa MD [address] [place] [address] [address] [place] [address] Assigned Neuroscience Provider 10/01/24 documented as of this encounter
--- OUTSIDE RECORDS SUMMARY | 2024-11-14 09:09 | XMS_ITS | Encounter Summary ---
Author Organization [facility] Address [address] [place] [address] Care Team Providers Care Newspaper Photographer Name Role Phone Daniel Plaza MD Primary Care Provider Daniel Plaza MD Unavailable [phone] Daniel Plaza MD Unavailable [phone] Stan Barnes MD Unavailable [phone] Herb Herman MD Primary Care Provider [phone] Herb Herman MD Unavailable Stan Barnes MD Unavailable [phone] Trent Qureshi MD Unavailable [phone] Sammy Villa MD Unavailable Encounter Details Date Type Department Care Team (Late st Contact Info) Description 11/21/2001 [facility] [address] [address] Daniel Plaza MD [address] [phone] Social History Tobacco Use Types Packs/Day Years [...] on filedocumented in this encounter Care Teams Newspaper Photographer Relationship Specialty Start Date End Date Daniel Plaza MD [address] [place] [phone] PCP - General 06/29/10 12/23/20 Daniel Plaza MD [address] [place] [phone] PCP - Assigned PCP 02/05/08 06/13/18 [place] [address] [place] [address] PCP - General Family Medicine 12/24/20 Daniel Plaza MD [address] [place] [phone] Assigned PCP 01/13/12 01/03/21 Stan Barnes MD [address] [place] [address] Assigned Surgical Provider 02/01/20 07/19/20 [place] [address] [place] [address] Assigned PCP 01/04/21 Stan Barnes MD [address] [place] [address] Assigned Surgical Provider 08/30/21 08/31/23 Trent Qureshi MD [facility] [address] [place] [address] Orthopaedic Surgery 09/16/21 Sammy Villa MD [address] [place] [address] 96 [place] [address] Assigned Neuroscience Provider 10/01/24 documented as of this encounter
--- OUTSIDE RECORDS SUMMARY | 2024-11-14 09:09 | XMS_ITS | Encounter Summary ---
Author Organization [facility] Address [facility] [place] [address] Care Team Providers Care Salesperson Floor Coverings Name Role Phone Herb Herman MD Primary Care Provider [phone] Herb Herman MD Unavailable Stan Barnes MD Unavailable [phone] Trent Qureshi MD Unavailable [phone] Sammy Villa MD Unavailable Reason for Visit * Reason Onset Date Comments MyChart Communication 01/06/2023 Encounter Details Date Type Department Care Team (Latest Contact Info) Description 01/06/2023 MyC Medical Advice [facility] [id number] [place] [phone] [place] [address] [place] [address] MyChart Communication Social History Tobacco [...] Answer Date Recorded PHQ-2 Score 0 08/02/2022 [facility] Occup[facility] ional Health - Occupational Stress [...] in a [facility] (including now)? No 06/08/2021 Adolescent Education Answer Date Record ed Getting School Help Needed Not on file 01/04 Comments No Sex and Gender Information Value Date Recorded Sex Assigned at Female 01/16/2019 8:38 AM CDT Legal Sex Female 3:11 AM RN NEONATAL Gender Identity Female 01/16/2019 8:38 AM CDT Sexual Orientation Choose not to disclose 2021 11:32 AM RN NEONATAL Occupation Industry Job Start Date Job End [...] documented as of this encounter Care Teams Salesperson Floor Coverings Relationship Specialty [place] [address] [place] [address] PCP - General Family Medicine 12/24/20 [place] [address] [place] [address] Assigned PCP 01/04/21 Stan Barnes MD [address] [place] [address] Assigned Surgical Provider 08/30/21 08/31/23 Trent Qureshi MD [facility] [address] [place] [address] Orthopaedic Surgery 09/16/21 Sammy Villa MD [address] [place] [address] Assigned Neuroscience Provider 10/01/24 documented as of this encounter
--- OUTSIDE RECORDS SUMMARY | 2024-11-14 09:09 | XMS_ITS | Encounter Summary ---
Author Organization [place] Address [address] [place] [address] Care Team Providers Care Timing Inspector Name Role Phone Daniel Plaza MD Primary Care Provider Daniel Plaza MD Unavailable Daniel Plaza MD Unavailable Stan Barnes MD Unavailable [phone] Herb Herman MD Primary Care Provider Herb Herman MD Unavailable Stan Barnes MD Unavailable [phone] Trent Qureshi MD Unavailable [phone] Sammy Villa MD Unavailable [phone] Encounter Details Date Type Department Care Team (Latest Contact Info) Description 01/24/2016 [facility] [address] [phone] Daniel Plaza MD [address] [phone] Spinal stenosis of lumbar region [...] AM CDT Legal Sex Female 3:11 AM CITY ROUTEMAN Gender Identity Female 01/16/2019 8:38 AM CDT Sexual Orientation Choose not to disclose 2021 11:32 AM CITY ROUTEMAN documented as of this encounter Plan of Treatment Not on file documented as of this encounter Visit Diagnoses Diagnosis Spinal stenosis of lumbar region with neurogenic claudication- Primary Spinal stenosis, lumbar region, with neurogenic claudication documented in this encounter Additional Health Concerns Assessment Noted Time PHQ-9 Depression Total Score: 0 12/23/19 16 7:14 AM CDT documented as of this encounter Care Teams Timing Inspector Relationship Specialty Start Date End Date Daniel Plaza MD [address] [place] [phone] PCP - General 06/29/10 12/23/20 Daniel Plaza MD [address] [place] [phone] PCP - Assigned PCP 02/05/08 06/13/18 [place] [address] [place] [address] PCP - General Family Medicine 12/24/20 Daniel Plaza MD [address] [place] [phone] Assigned PCP 01/13/12 01/03/21 Stan Barnes MD [address] [place] [address] Assigned Surgical Provider 02/01/20 07/19/20 [place] [address] [place] [address] Assigned PCP 01/04/21 Stan Barnes MD [address] [place] [id number] Assigned Surgical Provider 08/30/21 08/31/23 Trent Qureshi MD [facility] [address] [place] [phone] Orthopaedic Surgery 09/16/21 Sammy Villa MD [address] [place] [address] 96 [place], [place] [phone] Assigned Neuroscience Provider 10/01/24 documented as of this encounter
--- OUTSIDE RECORDS SUMMARY | 2024-11-14 09:09 | XMS_ITS | Clinical Summary ---
Author Organization [place] Address [address] [place] [address] Care Team Providers Care Teacher Learning Disabled Name Role Phone Herb Herman MD Primary Care Provider [phone] Herb Herman MD Unavailable Trent Qureshi MD Unavailable [phone] [facility] Unavailable [phone] Allergies Active Allergy Reactions Criticality Noted Date Comments Atorvastatin 12/22/2015 myalgias Rosuvastatin 04/27/2013 myalgias Doxycycline GI Disturbance Medium 03/08/2022 vomiting Erythromycin 02/10/1996 stomach cramps Morphine Anaphylaxis High 03/11/2001 respiratory arrest PT TOLERATES OXYCODONE Niacin 09/23/2010 Hot flashes Piroxicam 11/29/2012 GI upset Pravastatin 06/05/2018 Myalgias Simvastatin 07/19/2016 muscle cramps, weakness in legs Medications STATIN NOT PRESCRIBED (INTENTIONAL)Indic ations:Hyperlipide aravind LDL goal <100 Due to statin intolerance 06/05/19 19 Active Additional Information Patient not taking.Reported on 10/08/2024 blood glucose monitoring (SOFTCLIX) lancetsIndications :Type 2 diabetes mellitus without complication, without long-term current use of insulin (H) Use to test blood sugar 1 times daily. 100 each 3 11/07/19 20 Active acetaminophen (TYLENOL) 325 MG tabletIndications: Status post total replacement of left hip Take 2 tablets (650 mg) by mouth every 4 hours as needed for other (mild pain) 100 tablet 12/22/19 22 Active ketoconazole (NIZORAL) 2 % external shampooIndications :Seborrheic dermatitis Apply topically daily as needed for itching or irritation 120 mL 05/09/19 24 Active blood glucose (ACCU-CHEK MILDRED PLUS) test stripIndications:T ype 2 diabetes mellitus without complication, without long-term current use of insulin (H) USE TO TEST BLOOD GLUCOSE LEVELS ONCE DAILY. 100 strip 03/12/20 24 Active omeprazole (PRILOSEC) [address] capsuleIndications :Subglottic stenosis Take 1 capsule (20 mg) by mouth daily. Take 20 mg by mouth prn 90 capsule 3 05/02/19 25 Active metFORMIN (GLUCOPHAGE) 1000 MG tabletIndications: Type 2 diabetes mellitus with diabetic neuropathy, without long-term current use of insulin (H) Take 1 tablet (1,000 mg) by mouth 2 times daily (with meals). 180 tablet 3 05/02/19 25 Active levothyroxine (SYNTHROID/LEVOTHR OID) 137 MCG tabletIndications: Acquired hypothyroidism Take 1 tablet (137 mcg) by mouth daily. 90 tablet 3 05/02/19 25 Active amitriptyline (ELAVIL) 25 MG tabletIndications: Insomnia, unspecified type Take 1 tablet (25 mg) by mouth at bedtime. 90 tablet 3 05/02/19 25 Active vitamin D2 (ERGOCALCIFEROL) 90978 units (1250 mcg) capsuleIndications :Type 2 diabetes mellitus without complication, without long-term current use of insulin (H) TAKE ONE CAPSULE BY MOUTH WEEKLY ON WEDNESDAYS 12 capsule 3 05/31/19 25 Active lisinopril (ZESTRIL) 20 MG tabletIndications: Essential hypertension Take 1 tablet (20 mg) by mouth daily. 30 tablet 1 10/16/19 25 Active traZODone (DESYREL) 50 MG tabletIndications: Adjustment disorder with anxious mood Take 1 tablet (50 mg) by mouth at bedtime. 30 tablet 2 10/09/19 25 Active clopidogrel (PLAVIX) 75 MG tablet Take 1 tablet by mouth daily. 10/05/19 25 Active ezetimibe (ZETIA) 10 MG tablet Take 1 tablet by mouth daily. 10/05/19 25 Active Active Problems Patient Care Coordination No te [...] (01/02/2016): Seen incidentally on CT done at [facility] Major 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 6 Spinal [...] to review. 03/01/2011 Full code 03/08/2011 [facility] 12/15/2010 09/26/2023 Overview (07/17/2012): X DX V65.8 REPLACED WITH 74504 HEALTH RETIREMENT (07/17/2012) Major 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 11/05/2004 05/03/2023 Encounters Date Type Department Care Team Description 10/24/2024 MyC Medical Advice [facility] Neurology [address], [address] [place] [phone] Ana Larsen RN 10/08/2024 3:30 PM CDT Office Visit [address] [phone] Herb Herman MD TIA (transient ischemic attack) (Primary Dx); Chronic kidney disease, stage 3a (H); Hyperlipidemia LDL goal <100; Essential hypertension; Adjustment disorder with anxious mood 10/08/2024 Travel 09/26/2024 10:15 AM CDT Radiology Injection Office Visit [facility] Pain Management [address] [place] [address] Sammy Villa MD Burton, Annie L, MD Lumbar radiculopathy (Primary Dx); Lumbar stenosis with neurogenic claudication 09/26/2024 Travel 09/23/[address] [phone] Herb Herman MD Medication Refill 09/20/2024 Telephone [facility] Pain Management [address] [place] [phone] Pain Management Program, [facility] Procedure (L3-4 or L4-5 Interlaminar ARTHUR) 09/19/2024 2:20 PM CDT Office Visit [facility] Neurosurgery [facility] [address] [place] [phone] Douglas Hernandez MD Helland, Logan C, MD Lumbar stenosis with neurogenic claudication (Primary Dx); Chronic bilateral low back pain with bilateral sciatica 09/19/2024 MyC Medical Advice [facility] Neurology Clinics [facility] [address] [facility] [facility], [address] [place] [address] Ana Larsen RN 09/19/2024 Travel 09/19/2024 PRE VISIT [facility] Neuro[facility] [place] [address] [facility] [address] [place] [address] Sammy Villa MD Previsit 09/11/2024 Transcribe Orders GENERIC EXTERNAL DATA DEPARTMENT Douglas Hernandez MD Low back pain (Primary Dx) 09/10/2024 12:05 AM CDT Ancillary Procedure [facility] External Imaging [address] [place] [phone] Non-Fv Credentialed Provider, Radiology 09/10/2024 Ancillary Procedure [facility] External Imaging [address] [place] [phone] Non-Fv Credentialed Provider, Radiology 09/10/2024 Medical Correspondence [facility] Information Management [address] [facility] [address] [place] [address] Scan, Non-Provider from Last 3 Months Immunizations [...] C.A.D. Paternal Grandfather Musculoskeletal Disorder Sister fibromrl feldmania Relation Status Comments Brother 1 Alive Brother 2 Alive Father Mother Paternal Grandfather VA Sister Alive lashanda knee replace ments Son [...] week 06/08/2021 How often do you attend [facility] or hindu services? More than 4 [...] Answer Date Recorded PHQ-2 Score 6 10/08/2024 [facility] [...] AM CDT Legal Sex Female 3:11 AM CAREER REPRESENTATIVE Gender Identity Female 01/16/2019 8:38 AM CDT Sexual Orientation Choose not to disclose 2021 11:32 AM CAREER REPRESENTATIVE Occupation Industry Job Start Date Job [...] (Cologuard) Discontinued Medical Devices Implanted Type Area Team Assembler Device Identifier Shelf Expiration Date Model / Serial / Lot Imp Scr Zim 6.5x30mm Acet Cup Self Tap [id number] - [id number] Implanted:Qty : 1 on 09/21/2021 by Anderson George MD at [facility] Metallic Hardware/Anc hor Right: Hip [employer] 06/19/203137-8160-311- 30 / / [id number] Imp Scr Zim 6.5x30mm Acet Cup Self Tap [id number] - [id number] Implanted:Qty : 1 on 12/21/2021 by Anderson George MD at [facility] Metallic Hardware/Anc hor Left: Hip [employer] 06/19/203101-5303-397- 30 / / [id number] Imp Shell Biom G7 Acetab Pps Billy Hole 52mm Sz E [id number] - [id number] Implanted:Qty : 1 on 09/21/2021 by Anderson George MD at [facility] Total Joint Component/In sert Right: Hip [employer] 07/10/[id number] / / [id number] Liner Actb G7 E 36mm Lngvt Hip Strl Lum Lf [id number] - [id number] Implanted:Qty : 1 on 09/21/2021 by Anderson George MD at [facility] Total Joint Component/In sert Right: Hip [employer] 12/16/[id number] / / [id number] Imp Stem Femoral Biom Echo Std Offset [id number] - [id number] Implanted:Qty : 1 on 09/21/2021 by Anderson George MD at [facility] Total Joint Component/In sert Right: Hip [employer] 01/16/2031 [id number] / / [id number] Head Fem -3mm Ofst 36mm Hip Actb Dusty Ty 1 Blx D [id number] - [id number] Implanted:Qty : 1 on 09/21/2021 by nAderson George MD at [facility] Total Joint Component/In sert Right: Hip [employer] 06/23/2031 [id number] / / [id number] Imp Shell Biom G7 Acetab Pps Billy Hole 52mm Sz E [id number] - [id number] Implanted:Qty : 1 on 12/21/2021 by Anderson George MD at [facility] Total Joint Component/In sert Left: Hip [employer] 10/30/2031 [id number] / / [id number] Imp Stem Femoral Biom Echo Std Offset [id number] - [id number] Implanted:Qty : 1 on 12/21/2021 by Anderson George MD at [facility] Total Joint Component/In sert Left: Hip [employer] 08/25/2031 [id number] / / [id number] Liner Actb G7 E 36mm Lngvt Hip Strl Lum Lf [id number] - [id number] Implanted:Qty : 1 on 12/21/2021 by Anderson George MD at [facility] Total Joint Component/In sert Left: Hip [employer] 08/30/[id number] / / [id number] Head Fem -3mm Ofst 36mm Hip Actb Dusty Ty 1 Blx D [id number] - [id number] Implanted:Qty : 1 on 12/21/2021 by Anderson George MD at [facility] Total Joint Component/In sert Left: Hip [employer] 06/30/2031 [id number] / / [id number] Procedures Procedure Name Priority Date/Time Associated Diagnosis [...] FREE T4 REFLEX Add-On 05/02/2024 11:07 AM CAREER REPRESENTATIVE Acquired hypothyroidism HEMOGLOBIN A1C Routine 05/02/2024 11:07 AM CAREER REPRESENTATIVE Type 2 diabetes mellitus with diabetic neuropathy, [...] C FOOT EXAM Routine 04/27/2013 10:15 AM CAREER REPRESENTATIVE Type 2 diabetes, HbA1C goal < 7% [...] from the original result were not included. [facility] - [...] the procedure. Diagnosis: Lumbar spondylosis; Lumbar radiculitis/radiculopathy Civil Cad Tech: Daniel Otto MD Anesthesia: none Indications: Angela [...] OTTO MD Pain Management Daniel Otto MD [facility] ORDERABLES Final Result * XR [...] with free T4 reflex (05/02/2024 11:07 AM CAREER REPRESENTATIVE) Pathologist [facility] TSH 1.54 0.30 - 4.20 uIU/mL 05/03/2024 11:22 AM CAREER REPRESENTATIVE [facility] Blood BLOOD SPECIMEN / Unknown Venipuncture / Unknown 05/02/2024 11:07 AM CAREER REPRESENTATIVE 05/02/2024 11:07 AM CAREER REPRESENTATIVE Herb Herman MD LAB - BLOOD ORDERABLES Final Res ult Performing Organization Address City/[facility]/ZIP Co de Phone Number [facility] [address] [facility] [place], [place] [address] * (ABNORMAL) HEMOGLOBIN A1C (05/02/2024 11:07 AM CAREER REPRESENTATIVE) Pathologist [facility] Estimated Average Glucose 157(H) <117 mg/dL 05/02/2024 11:12 AM [facility] Hemoglobin A1C 7.1(H) 0.0 - 5.6 % 05/02/2024 11:12 AM [facility] Comment: Normal <5.7% Prediabetes 5.7-6.4% Diabetes 6.5% or higher Note: Adopted from ADA consensus guidelines. Blood BLOOD SPECIMEN / Unknown Venipuncture / Unknown 05/02/2024 11:07 AM CAREER REPRESENTATIVE 05/02/2024 11:07 AM CAREER REPRESENTATIVE Herb Herman MD LAB - BLOOD ORDERABLES Final Res ult LABORATORY [facility] [address] [facility] (no room number, 1st floor of clinic) [place] [address], [facility] * Albumin Random Urine Quantitative with [...] control, and institution of therapy with an eotujgpkzzg-czxecbkvbx-tncgnj (TIFFANY) inhibitor (if the patient can tolerate it). Urine MID-STREAM URINE SPECIMEN / Unknown Non-blood Collection / Unknown 08/01/2023 9:56 AM CDT 08/01/2023 9:56 AM CDT us Herb Herman MD LAB - URINE ORDERABLES Final Res ult [facility] LABORATORY [facility] [place] [facility] [address] [facility], [address] [place] [address] * ALT (08/01/2023 9:51 AM CDT) ALT 12 0 - 50 U/L 08/01/2023 5:5 4 PM CDT [facility] LABORATORY Blood BLOOD SPECIMEN / Unknown Venipuncture / Unknown 08/01/2023 9:51 AM CDT 08/01/2023 9:51 AM CDT us Herb Herman MD LAB - BLOOD ORDERABLES Final Res ult [facility] LABORATORY [facility] [place] [facility] [address] [facility], [address] [phone] * (ABNORMAL) Basic metabolic panel (Ca, Cl, CO2, Creat, Gluc, K, Na, BUN) (08/01/2023 9:51 AM CDT) [facility] Sodium 139 135 - 145 mmol/L 08/01/2023 [...] BLOOD ORDERABLES Final Res ult U LABORATORY [facility] [place] [facility] [address] [facility] [address], [address] [address] * [place] Screening Digital Bilateral (07/26/2023 11:38 [...] cancer screen (FIT) (06/29/2023 9:00 AM CDT) [facility] Signature Occult Blood Screen FIT Negative Negative 07/06/2023 10:59 AM CDT [facility] SPECIAL[facility] CORE/PROT/END O Stool RECTAL CONTENTS / Unknown Non-blood Collection / Unknown 06/29/2023 9:00 AM CDT 07/05/2023 1:19 PM CDT Herb Herman MD LAB - STOOLS ORDERABLES Final Re sult [facility] SPECIALTY CORE/PROT/ENDO [facility] Special[facility] Core/Prot/Endo [address] [facility] [address], [address] [place] [address] * Eye Exam - HIM Scan (03/11/2023) RETINOPATHY UNKNOWN Narrative Christina Johnson - 03/11/2023 See encounter dated 05/03/2023 Patient [...] BLOOD ORDERABLES Final Res ult [facility] LABORATORY [facility] [place] [facility] [address] [facility] [address], [address] [place] [address], [facility] [phone] * (ABNORMAL) Hemoglobin (01/18/2022 7:30 AM CDT) Hemoglobin 10.0(L) 11.7 - 15.7 g/dL 01/18/2022 7:52 AM CDT LABORATORY Blood STRUCTURE OF LEFT UPPER LIMB / Unknown Venipuncture / Unknown 01/18/2022 7:30 AM CDT 01/18/2022 7:43 AM CDT Anderson George MD LAB - BLOOD ORDERABL ES Final Result LABORATORY [facility] Lab [address] 1st floor, [address] [place] [address], [facility] [phone] * DX Hip/Pelvis/Spine w Lat Fraction Kath (07/21/2017 9:14 AM CDT) Anatomical Region Laterality Modality Dexa Bone Mineral Den sity Narrative 07/25/2017 10:30 AM CDT BONE DENSITOMETRY [address] [address] 07/21/2017 PATIENT: Angela Lamar CHART: [id number] : 1945 AGE: [age] year old SEX: female REFERRING PROVIDER: Daniel Plaza MD PROCEDURE: Bone density scanning was performed using DXA technology of the lumbar spine and hip. Scanning was performed on a RV ID scanner. Reporting is completed in the form [...] to another DXA performed on the same [employer] machine on 03/24 and 07/16. LATERAL VERTEBRAL ASSESSMENT Procedure: Vertebral fracture assessment was performed in the lateral decubitus position using a [employer] Prodigy densitometer. Indications for VFA: none listed Confounding [...] established for newborns, infants, and children NR [facility] Blood specimen (specimen) 09/23/2016 6:20 PM CDT 09/23/2016 6:21 PM CDT us Daniel Plaza MD LAB - BLOOD ORDERABLES Final Result [facility] [address] [place] [address] * PHQ-9 DEPRESSION SCREENING ORDER (03/08/2011) us Provider Abstract OTHER Final Result from Last 3 Months or Most Recently Relevant to Health Maintenance Insurance MEDICARE MEDICA [employer] [place] [address] Advance Directives For more information, please contact: [phone] * Full Code (Latest Code Status on [...] patie nt/ legal decision maker Care Teams Teacher Learning Disabled Relationship Specialty [place] [address] [place] [address] PCP - General Family Medicine 12/24/20 [place] [address] [place] [address] Assigned PCP 01/04/21 Trent Qureshi MD [facility] [address] [place] [address] [phone] Orthopaedic Surgery 09/16/21 Sammy Villa MD [address] [place] [address] [address] [place], [place] 489645 Assigned Neuroscience Provider 10/01/24
--- OUTSIDE RECORDS SUMMARY | 2024-11-14 09:09 | XMS_ITS | Encounter Summary ---
Author Organization [place] Address [facility] [place] [address] Care Team Providers Care Mechanical Project Engineer Name Role Phone Herb Herman MD Primary Care Provider [phone] Herb Herman MD Unavailable Stan Barnes MD Unavailable [phone] Trent Qureshi MD Unavailable [phone] Sammy Villa MD Unavailable Encounter Details Date Type Department Care Team (Late st Contact Info) Description 08/04/2021 MyC Medical Advice [facility] [address] [place] [address] [place] [address] [place] [address] Social History Tobacco Use Types [...] Answer Date Recorded PHQ-2 Score 0 06/24/2021 [facility] Occup[facility] - [...] place to sleep or slept in a retirement (including now)? No 06/08/2021 Comments No Sex and Gender Information Value Date Recorded Sex Assigned at Female 01/16/2019 8:38 AM CDT Legal Sex Female 3:11 AM PERSONAL LINES AGENT Gender Identity Female 01/16/2019 8:38 AM CDT Sexual Orientation Choose not to disclose 2021 11:32 AM PERSONAL LINES AGENT Occupation Industry Job Start Date Job End [...] Total Score: 0 06/10/19 22 7:01 AM PERSONAL LINES AGENT documented as of this encounter Care Teams Mechanical Project Engineer Relationship Specialty [place] [address] [place] [address] PCP - General Family Medicine 12/24/20 [place] [address] [place] [address] Assigned PCP 01/04/21 Stan Barnes MD [address] [place] [address] [id number] Assigned Surgical Provider 08/30/21 08/31/23 Trent Qureshi MD [facility] [address] [place] [address] [phone] Orthopaedic Surgery 09/16/21 Sammy Villa MD [address] [place] [address] [address] [place], [place] 418[address] Assigned Neuroscience Provider 10/01/24 documented as of this encounter
--- OUTSIDE RECORDS SUMMARY | 2024-11-14 09:09 | XMS_ITS | Encounter Summary ---
Author Organization [place] Address [address] [place] [address] Care Team Providers Care Traffic Rate Computer Name Role Phone Daniel Plaza MD Primary Care Provider Daniel Plaza MD Unavailable [phone] Daniel Plaza MD Unavailable [phone] Stan Barnes MD Unavailable Herb Herman MD Primary Care Provider Herb Herman MD Unavailable Stan Barnes MD Unavailable [phone] Trent Qureshi MD Unavailable [phone] Sammy Villa MD Unavailable [phone] Encounter Details Date Type Department Care Team (Late st Contact Info) Description 03/01/2011 [facility] [address] [address] Rodolfo Cline Social History Tobacco Use Types Packs/Day Years Used Date Smoking Tobacco: Never Alcohol Use Standard Drinks/Week Comments No 0 (1 standard drink = 0.6 oz pur e alcohol) Comments No Sex and Gender Information Value Date Recorded Sex Assigned at Female 01/16/2019 8:38 AM CDT Legal Sex Female 3:11 AM MANAGER FEDERAL Gender Identity Female 01/16/2019 8:38 AM CDT Sexual Orientation Choose not to disclose 2021 11:32 AM MANAGER FEDERAL documented as of this encounter Plan of Treatment Not on file documented as of this encounter Visit Diagnoses Not on filedocumented in this encounter Care Teams Traffic Rate Computer Relationship Specialty Start Date End Date Daniel Plaza MD [address] [place] [phone] PCP - General 06/29/10 12/23/20 Daniel Plaza MD [address] [place] [phone] PCP - Assigned PCP 02/05/08 06/13/18 [place] [address] [place] [address] PCP - General Family Medicine 12/24/20 Daniel Plaza MD [address] [place] [phone] Assigned PCP 01/13/12 01/03/21 Stan Barnes MD [address] [place] [address] Assigned Surgical Provider 02/01/20 07/19/20 [place] [address] [place] [address] Assigned PCP 01/04/21 Stan Barnes MD [address] [place] [address] [phone] Assigned Surgical Provider 08/30/21 08/31/23 Trent Qureshi MD [facility] [address] [place] [address]355 Orthopaedic Surgery 09/16/21 Sammy Villa MD [address] [place] [address] [id number] Assigned Neuroscience Provider 10/01/24 documented as of this encounter
--- OUTSIDE RECORDS SUMMARY | 2024-11-14 09:09 | XMS_ITS | Encounter Summary ---
Author Organization [place] Address [address] [place] [address] Care Team Providers Care Screen Cutter And Trimmer Name Role Phone Herb Herman MD Primary Care Provider [phone] Herb Herman MD Unavailable Stan Barnes MD Unavailable [phone] Trent Qureshi MD Unavailable [phone] Sammy Villa MD Unavailable [phone] Encounter Details Date Type Department Care Team (Late st Contact Info) Description 07/16/2022 [facility] [address] [address] Diane Moreno RN Social History [...] Date Recorded PHQ-2 Score 0 03/08/2022 [facility] Occupat ional [facility] - Occupational Stress Questionnaire Answer Date Recorded [...] Total Score: 0 03/08/20 22 10:26 AM DRYWALL PROFESSIONAL documented as of this encounter Care Teams Screen Cutter And Trimmer Relationship Specialty [place] [address] [place] [address] PCP - General Family Medicine 12/24/20 [place] [address] [place] [address] Assigned PCP 01/04/21 Stan Barnes MD [address] [place] [address] [phone] Assigned Surgical Provider 08/30/21 08/31/23 Trent Qureshi MD [facility] [address] [address] Orthopaedic Surgery 09/16/21 Sammy Villa MD [address] [facility] [address] [place], [place] [address] Assigned Neuroscience Provider 10/01/24 documented as of this encounter
--- OUTSIDE RECORDS SUMMARY | 2024-11-14 09:09 | XMS_ITS | Encounter Summary ---
Author Organization [facility] Address [address] [place] [address] Care Team Providers Care Cast Associate Name Role Phone Daniel Plaza MD Primary Care Provider Daniel Plaza MD Unavailable Daniel Plaaz MD Unavailable [phone] Stan Barnes MD Unavailable [phone] Herb Herman MD Primary Care Provider [phone] Herb Herman MD Unavailable Stan Barnes MD Unavailable [phone] Trent Qureshi MD Unavailable [phone] Sammy Villa MD Unavailable Encounter Details Date Type Department Care Team (Late st Contact Info) Description 01/31/2006 [facility] Medical Advice [facility] [address] [address] Daniel Plaza MD [address] [phone] Social History Tobacco Use Types Packs/Day Years Used Date Smoking Tobacco: Never Alcohol Use Standard Drinks/Week Comments Yes 0 (1 standard drink = 0.6 oz pur e alcohol) social Comments No Sex and Gender Information Value Date Recorded Sex Assigned at Female 01/16/2019 8:38 AM CDT Legal Sex Female 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 Gender Identity Female 01/16/2019 8:38 AM CDT Sexual Orientation Choose not to disclose 2021 11:32 AM AMERICAN SIGN LANGUAGE TEACHER documented as of this encounter Plan of Treatment Not on file documented as of this encounter Visit Diagnoses Not on filedocumented in this encounter Care Teams Cast Associate Relationship Specialty Start Date End Date Daniel Plaza MD [address] [place] [address] PCP - General 06/29/10 12/23/20 Daniel Plaza MD [address] [place] [phone] PCP - Assigned PCP 02/05/08 06/13/18 [place] [address] [place] [address] PCP - General Family Medicine 12/24/20 Daniel Plaza MD [address] [place] [phone] Assigned PCP 01/13/12 01/03/21 Stan Barnes MD 9 [place] [address] Assigned Surgical Provider 02/01/20 07/19/20 [place] [address] [place] [address] Assigned PCP 01/04/21 Stan Barnes MD [address] [place] [address] Assigned Surgical Provider 08/30/21 08/31/23 Trent Qureshi MD [facility] [address] [phone] Orthopaedic Surgery 09/16/21 Sammy Villa MD 420 [facility] 96 [place] [address] Assigned Neuroscience Provider 10/01/24 documented as of this encounter
--- OUTSIDE RECORDS SUMMARY | 2024-11-14 09:09 | XMS_ITS | Encounter Summary ---
Author Organization [facility] Address [address] [place] [address] Care Team Providers Care Air Conditioning Mechanic Name Role Phone Daniel Plaza MD Primary Care Provider [phone] Daniel Plaza MD Unavailable [phone] Daniel Plaza MD Unavailable Stan Barnes MD Unavailable [phone] Herb Herman MD Primary Care Provider [phone] Herb Herman MD Unavailable Stan Barnes MD Unavailable [phone] Trent Qureshi MD Unavailable [phone] Sammy Villa MD Unavailable [phone] Encounter Details Date Type Department Care Team (Late st Contact Info) Description 05/18/2007 [facility] Medical Advice [facility] [address] [address] Daniel Plaza MD [address] [phone] Social History Tobacco Use Types Packs/Day Years Used Date Smoking Tobacco: Never Alcohol Use Standard Drinks/Week Comments Yes 0 (1 standard drink = 0.6 oz pur e alcohol) social Comments No Sex and Gender Information Value Date Recorded Sex Assigned at Female 01/16/2019 8:38 AM CDT Legal Sex Female 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 Gender Identity Female 01/16/2019 8:38 AM CDT Sexual Orientation Choose not to disclose 2021 11:32 AM IRON AND STEEL WORK SUPERVISOR documented as of this encounter Plan of Treatment Not on file documented as of this encounter Visit Diagnoses Not on filedocumented in this encounter Care Teams Air Conditioning Mechanic Relationship Specialty Start Date End Date Daniel Plaza MD [address] [place] [phone] PCP - General 06/29/10 12/23/20 Daniel Plaza MD [address] [place] [phone] PCP - Assigned PCP 02/05/08 06/13/18 [place] [address] [place] [address] PCP - General Family Medicine 12/24/20 Daniel Plaza MD [address] [place] [phone] Assigned PCP 01/13/12 01/03/21 Stan Barnes MD [address] [place] [address] Assigned Surgical Provider 02/01/20 07/19/20 [place] [address] [place] [address] Assigned PCP 01/04/21 Stan Barnes MD [address] [place] [address] Assigned Surgical Provider 08/30/21 08/31/23 Trent Qureshi MD [facility] [address] [phone] Orthopaedic Surgery 09/16/21 Sammy Villa MD 420 [facility] 96 [place] [address] Assigned Neuroscience Provider 10/01/24 documented as of this encounter
--- OUTSIDE RECORDS SUMMARY | 2024-11-14 09:09 | XMS_ITS | Encounter Summary ---
Author Organization [facility] Address [address] [place] [address] Care Team Providers Care Nail Cutter Name Role Phone Daniel Plaza MD Primary Care Provider Daniel Plaza MD Unavailable Daniel Plaza MD Unavailable Stan Barnes MD Unavailable [phone] Herb Herman MD Primary Care Provider Herb Herman MD Unavailable Stan Barnes MD Unavailable [phone] Tretn Stratton MD Unavailable [phone] Sammy Villa MD Unavailable Encounter Details Date Type Department Care Team (Late st Contact Info) Description 03/01/2003 [facility] [address] [address] Daniel Plaza MD [address] [phone] OP REPT (Primary Dx) Social History Tobacco Use Types Packs/Day Years Used Date Smoking Tobacco: Never Passive Smoke Exposure: Never Smokeless Tobacco: Never Alcohol Use Standard Drinks/Week Comments Never 0 (1 standard drink = 0.6 oz pur e alcohol) Comments No Sex and Gender Information Value Date Recorded Sex Assigned at Female 01/16/2019 8:38 AM CDT Legal Sex Female 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 Gender Identity Female 01/16/2019 8:38 AM CDT Sexual Orientation Choose not to disclose 2021 11:32 AM RIVETING MACHINE 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 file documented as of this encounter Progress Notes * 03/01/2003 11:59 PM [id number] 00:00 Operative Report-[facility] TRENT STRATTON () [Entered: 00:00 Transcr iption ([facility])] 1st ASS'T: Alexander Gamble CST 2nd [...] STRATTON MD D: 06:24 MT: sb Document: [id number] [place], [place] Name: CEFERINOAMILCARMICHAEL OPERATIVE REPORT Page 2 of 2 LCN: 55 DSC: [place], [place] Name: WILLIAMPARIS MICHAEL Saba MR#: : Procedure Date: [id number] 1945 03/01/2003 Surgeon: TRENT STRATTON MD OPERATIVE REPORT Page 1 of 2 Electronically filed by Hu Porter 03/06/2003 10:43 AM documented in this encounter Plan of Treatment Not on file documented as of this encounter Visit Diagnoses Diagnosis OP REPT- Primary documented in this encounter Care Teams Nail Cutter Relationship Specialty Start Date End Date Daniel Plaza MD [address] [place] [phone] PCP - General 06/29/10 12/23/20 Daniel Plaza MD [address] [place] [phone] PCP - Assigned PCP 02/05/08 06/13/18 [place] [address] [place] [address] PCP - General Family Medicine 12/24/20 Daniel Plaza MD 600 [address], [place] [phone] Assigned PCP 01/13/12 01/03/21 Stan Barnes MD [address] [place] [address] Assigned Surgical Provider 02/01/20 07/19/20 [place] [address] [place] [address] Assigned PCP 01/04/21 Stan Barnes MD [address] [place] [address] Assigned Surgical Provider 08/30/21 08/31/23 Trent Stratton MD [facility] [address] [place] [address] Orthopaedic Surgery 09/16/21 Sammy Villa MD [address] [place] [address] Assigned Neuroscience Provider 10/01/24 documented as of this encounter
--- OUTSIDE RECORDS SUMMARY | 2024-11-14 09:09 | XMS_ITS | Encounter Summary ---
Author Organization [facility] Address [address] [place] [address] Care Team Providers Care Coal Cutter Name Role Phone Daniel Torres MD Primary Care Provider [phone] Daniel Torres MD Unavailable [phone] Daniel Torres MD Unavailable [phone] Stan Barnes MD Unavailable [phone] Herb Herman MD Primary Care Provider Herb Herman MD Unavailable Stan Barnes MD Unavailable [phone] Trent Qureshi MD Unavailable [phone] Sammy Villa MD Unavailable Encounter Details Date Type Department Care Team (Late st Contact Info) Description 09/08/2007 [facility] [address] [address] Daniel Torres MD [address] [address] DJD ; HYPERLIPIDEMIA Social History Tobacco Use Types Packs/Day Years Used Date Smoking Tobacco: Never Alcohol Use Standard Drinks/Week Comments Yes 0 (1 standard drink = 0.6 oz pur e alcohol) social Comments No Sex and Gender Information Value Date Recorded Sex Assigned at Female 01/16/2019 8:38 AM CDT Legal Sex Female 3:11 AM CONTRACTS ANALYST Gender Identity Female 01/16/2019 8:38 AM CDT Sexual Orientation Choose not to disclose 2021 11:32 AM CONTRACTS ANALYST documented as of this encounter Miscellaneous Notes * Telephone Encounter - Vero Carr - 09/08/2007 2:01 PM [facility] Original authorizing provider: Savanna VILLALOBOS would like a refill of the following medications: SIMVASTATIN 80 MG OR TABS [DANIEL TORRES M.D.] CELEBREX 200 MG OR CAPS [DANIEL TORRES M.D.] Preferred pharmacy: [facility] Comment: I have [...] hyperlipidemia documented in this encounter Care Teams Coal Cutter Relationship Specialty Start Date End Date Daniel Torres MD [address] [place] [phone] PCP - General 06/29/10 12/23/20 Daniel Torres MD [address] [place] [phone] PCP - Assigned PCP 02/05/08 06/13/18 [place] [address] [place] [address] PCP - General Family Medicine 12/24/20 Daniel Torres MD [address] [place] [phone] Assigned PCP 01/13/12 01/03/21 Stan Barnes MD [address] [place] [address] Assigned Surgical Provider 02/01/20 07/19/20 [place] [address] [place] [address] Assigned PCP 01/04/21 Stan Barnes MD [address] [place] [address] Assigned Surgical Provider 08/30/21 08/31/23 Trent Qureshi MD [facility] [address] [address] Orthopaedic Surgery 09/16/21 Sammy Villa MD 420 [facility] 96 [place] [address] Assigned Neuroscience Provider 10/01/24 documented as of this encounter
--- OUTSIDE RECORDS SUMMARY | 2024-11-14 09:10 | XMS_ITS | Encounter Summary ---
Author Organization [facility] Address [address] [place] [address] Care Team Providers Care Business Planning Analyst Name Role Phone Herb Herman MD Primary Care Provider [phone] Herb Herman MD Unavailable Stan Barnes MD Unavailable [phone] Trent Qureshi MD Unavailable [phone] Sammy Villa MD Unavailable [phone] Encounter Details Date Type Department Care Team (Late st Contact Info) Description 07/23/2021 MyC Medical Advice [address] [address] Brooke Barnes Social History Tobacco [...] Answer Date Recorded PHQ-2 Score 0 06/24/2021 [facility] - Occupational Stress Questionnaire Answer [...] CDT Legal Sex Female 3:11 AM MEDICAL RECORD 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 Gender Identity Female 01/16/2019 8:38 AM CDT Sexual Orientation Choose not to disclose 2021 11:32 AM MEDICAL RECORD TECHNICIAN Occupation Industry Job Start Date Job [...] Total Score: 0 06/10/19 22 7:01 AM MEDICAL RECORD TECHNICIAN documented as of this encounter Care Teams Business Planning Analyst Relationship Specialty [place] [address] [place] [address] PCP - General Family Medicine 12/24/20 [place] [address] [place] [address] Assigned PCP 01/04/21 Stan Barnes MD [address] [place] [address] Assigned Surgical Provider 08/30/21 08/31/23 Trent Qureshi MD [facility] [address] [place] [address] Orthopaedic Surgery 09/16/21 Sammy Villa MD [address] [place] [address] Assigned Neuroscience Provider 10/01/24 documented as of this encounter
--- OUTSIDE RECORDS SUMMARY | 2024-11-14 09:10 | XMS_ITS | Encounter Summary ---
Author Organization [facility] Address [address] [place] [address]. [place] [address] Care Team Providers Care Vp Production Name Role Phone Herb Herman MD Primary Care Provider Herb Herman MD Unavailable Stan Barnes MD Unavailable [phone] Trent Qureshi MD Unavailable [phone] Sammy Villa MD Unavailable [phone] Encounter Details Date Type Department Care Team (Late st Contact Info) Description 09/23/2021 [facility] [address] 4th [place] [address] Son Roxie Social History Tobacco Use Types Packs/Day Years [...] How often do you attend [facility] or methodist services? 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 RADIOLOGIST Gender Identity Female 01/16/2019 8:38 AM CDT Sexual Orientation Choose not to disclose 2021 11:32 AM STAFF RADIOLOGIST Occupation Industry Job Start Date Job End [...] as of this encounter Care Teams Vp Production Relationship Specialty [place] [address] [place] [address] PCP - General Family Medicine 12/24/20 [place] [address] [place] [address] Assigned PCP 01/04/21 Stan Barnes MD [address] [place] [address] Assigned Surgical Provider 08/30/21 08/31/23 Trent Qureshi MD [facility] [address] [address] Orthopaedic Surgery 09/16/21 Sammy Villa MD [address] [place] [address] 96 [place], [place] 489725 Assigned Neuroscience Provider 10/01/24 documented as of this encounter
--- OUTSIDE RECORDS SUMMARY | 2024-11-14 09:10 | XMS_ITS | Encounter Summary ---
Author Organization [facility] [place] Address [address] [place] [address]. [place] [address] Care Team Providers Care Recruiter Manager Name Role Phone Herb Herman MD Primary Care Provider Herb Herman MD Unavailable Stan Barnes MD Unavailable [phone] Trent Qureshi MD Unavailable [phone] Sammy Villa MD Unavailable Encounter Details Date Type Department Care Team (Late st Contact Info) Description 05/09/2023 MyC Medical Advice [facility] [address] [address] Stan Barnes MD [address] [place] [address] Social History Tobacco Use Types Packs/Day [...] PHQ-2 Score 0 05/02/2023 [facility] Occupational Stress Questionnaire [...] CDT Legal Sex Female 3:11 AM FRUIT CUTTER Gender Identity Female 01/16/2019 8:38 AM CDT Sexual Orientation Choose not to disclose 2021 11:32 AM FRUIT CUTTER 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 file documented as of this encounter Plan of Treatment Not on file documented as of this encounter Visit Diagnoses Not on filedocumented in this encounter Additional Health Concerns Assessment Noted Time PHQ-9 Depression Total Score: 0 05/02/19 24 10:52 AM FRUIT CUTTER documented as of this encounter Care Teams Recruiter Manager Relationship Specialty [place] [address] [place] [address] PCP - General Family Medicine 12/24/20 [place] [address] [place] [address] Assigned PCP 01/04/21 Stan Barnes MD [address] [place] [address] Assigned Surgical Provider 08/30/21 08/31/23 Trent Qureshi MD [facility] [address] [place] [address]255 Orthopaedic Surgery 09/16/21 Sammy Villa MD [address] [place] [address] 96 [place] [address] Assigned Neuroscience Provider 10/01/24 documented as of this encounter
--- OUTSIDE RECORDS SUMMARY | 2024-11-14 09:10 | XMS_ITS | Encounter Summary ---
Author Organization [place] Address [address] [place] [address]. [place] [address] Care Team Providers Care Waterworks Pump Station Operator Name Role Phone Herb Herman MD Primary Care Provider [phone] Herb Herman MD Unavailable Trent Qureshi MD Unavailable [phone] Sammy Villa MD Unavailable [phone] Encounter Details Date Type Department Care Team (Late st Contact Info) Description 05/16/2024 MyC Medical Advice [facility] [address] [place] [address] [place] [id number] [place] [address] Social History Tobacco Use Types Packs/Day [...] week 06/08/2021 How often do you attend [facility] or islam services? 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 file documented as of this encounter Plan of Treatment Not on file documented as of this encounter Visit Diagnoses Not on filedocumented in this encounter Additional Health Concerns Assessment Noted Time PHQ-9 Depression Total Score: 0 05/02/19 25 10:13 AM CYBER FORENSICS ANALYST documented as of this encounter Care Teams Waterworks Pump Station Operator Relationship Specialty [place] [address] [place] [address] PCP - General Family Medicine 12/24/20 [place] [address] [place] [address] Assigned PCP 01/04/21 Trent Qureshi MD [facility] [address] [place] [address] Orthopaedic Surgery 09/16/21 Sammy Villa MD [address] [place] [address] Assigned Neuroscience Provider 10/01/24 documented as of this encounter
--- OUTSIDE RECORDS SUMMARY | 2024-11-14 09:10 | XMS_ITS | Encounter Summary ---
Author Organization [facility] Address [address] [place] [address] Care Team Providers Care Overhead Foreman Name Role Phone Daniel Plaza MD Primary Care Provider [phone] Daniel Plaza MD Unavailable [phone] Daniel Plaza MD Unavailable [phone] Stan Barnes MD Unavailable [phone] Herb Herman MD Primary Care Provider [phone] Herb Herman MD Unavailable Stan Barnes MD Unavailable [phone] Trent Qureshi MD Unavailable [phone] Sammy Villa MD Unavailable [phone] Reason for Visit * Reason Onset Date Comments Sinus Problem 04/06/2017 Encounter Details Date Type Department Care Team (Late st Contact Info) Description 04/06/2017 MyC Medical Advice [facility] [address] [address] Daniel Plaza MD [address] [address] Sinus Problem Social History Tobacco Use Types Packs/Day Years Used Date Smoking Tobacco: Never Smokeless Tobacco: Never Alcohol Use Standard Drinks/Week Comments No 0 (1 standard drink = 0.6 oz pur e alcohol) Comments No Sex and Gender Information Value Date Recorded Sex Assigned at Female 01/16/2019 8:38 AM CDT Legal Sex Female 3:11 AM 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 Gender Identity Female 01/16/2019 8:38 AM CDT Sexual Orientation Choose not to disclose 2021 11:32 AM 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 documented as of this encounter Plan of Treatment Not on file documented as of this encounter Visit Diagnoses Diagnosis Acute sinusitis with symptoms > 10 days- Primary Acute sinusitis, unspecified documented in this encounter Additional Health Concerns Assessment Noted Time PHQ-9 Depression Total Score: 0 12/23/19 16 7:14 AM CDT documented as of this encounter Care Teams Overhead Foreman Relationship Specialty Start Date End Date Daniel Plaza MD [address] [place] [address] PCP - General 06/29/10 12/23/20 Daniel lPaza MD [address] [place] [phone] PCP - Assigned PCP 02/05/08 06/13/18 [place] [address] [place] [address] PCP - General Family Medicine 12/24/20 Daniel Plaza MD [address] [place] [phone] Assigned PCP 01/13/12 01/03/21 Stan Barnes MD 9 [place] [address] Assigned Surgical Provider 02/01/20 07/19/20 [place] [address] [place] [address] Assigned PCP 01/04/21 Stan Barnes MD [address] [place] [address] 633655 Assigned Surgical Provider 08/30/21 08/31/23 Trent Qureshi MD [facility] [address] [place] [address] 071485 Orthopaedic Surgery 09/16/21 Sammy Villa MD [address] [place] [address] 96 [place], [place] 437765 Assigned Neuroscience Provider 10/01/24 documented as of this encounter
--- OUTSIDE RECORDS SUMMARY | 2024-11-14 09:10 | XMS_ITS | Encounter Summary ---
Author Organization [place] Address [address] [place] [address] Care Team Providers Care Patient Assessment Coordinator Name Role Phone Herb Herman MD Primary Care Provider [phone] Herb Herman MD Unavailable Trent Qureshi MD Unavailable [phone] Sammy Villa MD Unavailable Encounter Details Date Type Department Care Team (Late st Contact Info) Description 02/21/2024 [facility] Medical Advice [address] [address] Rama Roche MA Social History [...] Score 0 05/02/2023 [facility] of Occupat ional Health - Occupational [...] AM CDT Legal Sex Female 3:11 AM CONTROL VALVE MECHANIC Gender Identity Female 01/16/2019 8:38 AM CDT Sexual Orientation Choose not to disclose 2021 11:32 AM CONTROL VALVE MECHANIC 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 file documented as of this encounter Plan of Treatment Not on file documented as of this encounter Visit Diagnoses Not on filedocumented in this encounter Additional Health Concerns Assessment Noted Time PHQ-9 Depression Total Score: 0 05/02/19 24 10:52 AM CONTROL VALVE MECHANIC documented as of this encounter Care Teams Patient Assessment Coordinator Relationship Specialty [place] [address] [place] [address] PCP - General Family Medicine 12/24/20 [place] [address] [place] [address] Assigned PCP 01/04/21 Trent Qureshi MD [facility] [address] [place] [address] 835215 Orthopaedic Surgery 09/16/21 Sammy Villa MD [address] [place] [address] 300383 Assigned Neuroscience Provider 10/01/24 documented as of this encounter
--- OUTSIDE RECORDS SUMMARY | 2024-11-14 09:10 | XMS_ITS | Encounter Summary ---
Author Organization [place] Address [address] [place] [address] Care Team Providers Care Balance Bridge Inspector Name Role Phone Herb Herman MD Primary Care Provider [phone] Herb Herman MD Unavailable Stan Barnes MD Unavailable + [phone] Trent Qureshi MD Unavailable [phone] Sammy Villa MD Unavailable [phone] Encounter Details Date Type Department Care Team (Late st Contact Info) Description 04/18/2023 [facility] Medical Advice [address] [address] Brooke Barnes Social History Tobacco [...] week 06/08/2021 How often do you attend [facility] or jain services? More than 4 [...] Answer Date Recorded PHQ-2 Score 0 08/02/2022 [facility] of Occupat ional [...] in a alf (including now)? No 06/08/2021 Adolescent Education Answer Date Record ed Getting School Help Needed Not on file 01/04 Comments No Sex and Gender Information Value Date Recorded Sex Assigned at Female 01/16/2019 8:38 AM CDT Legal Sex Female 3:11 AM CHIPPER OPERATOR Gender Identity Female 01/16/2019 8:38 AM CDT Sexual Orientation Choose not to disclose 2021 11:32 AM CHIPPER OPERATOR Occupation Industry Job Start Date [...] documented as of this encounter Care Teams Balance Bridge Inspector Relationship Specialty [place] [address] [place] [address] PCP - General Family Medicine 12/24/20 [place] [address] [place] [address] Assigned PCP 01/04/21 Stan Barnes MD [address] [place] [address]109 Assigned Surgical Provider 08/30/21 08/31/23 Trent Qureshi MD [facility] [address] [place] [address] Orthopaedic Surgery 09/16/21 Sammy Villa MD [address] [place] [address] Assigned Neuroscience Provider 10/01/24 documented as of this encounter
--- OUTSIDE RECORDS SUMMARY | 2024-11-14 09:10 | XMS_ITS | Encounter Summary ---
Author Organization [place] Address [address] [place] [address] Care Team Providers Care Bioinformatics Scientist Name Role Phone Daniel Plaza MD Primary Care Provider Daniel Plaza MD Unavailable Daniel Plaza MD Unavailable [phone] Stan Barnes MD Unavailable [phone] Herb Herman MD Primary Care Provider [phone] Herb Herman MD Unavailable Stan Barnes MD Unavailable [phone] Trent Qureshi MD Unavailable [phone] Sammy Villa MD Unavailable Encounter Details Date Type Department Care Team (Late st Contact Info) Description 12/24/2013 MyC Medical Advice [facility] [address] [address] Daniel Plaza MD [address] [phone] Social History Tobacco Use Types Packs/Day Years Used Date Smoking Tobacco: Never Smokeless Tobacco: Never Alcohol Use Standard Drinks/Week Comments No 0 (1 standard drink = 0.6 oz pur e alcohol) Comments No Sex and Gender Information Value Date Recorded Sex Assigned at Female 01/16/2019 8:38 AM CDT Legal Sex Female 3:11 AM ACADEMIC INTERVENTIONIST Gender Identity Female 01/16/2019 8:38 AM CDT Sexual Orientation Choose not to disclose 2021 11:32 AM ACADEMIC INTERVENTIONIST documented as of this encounter Plan of Treatment Not on file documented as of this encounter Visit Diagnoses Not on filedocumented in this encounter Care Teams Bioinformatics Scientist Relationship Specialty Start Date End Date Daniel Plaza MD [address] [place] [phone] PCP - General 06/29/10 12/23/20 Daniel Plaza MD [address] [place] [phone] PCP - Assigned PCP 02/05/08 06/13/18 [place] [address] [place] [address] PCP - General Family Medicine 12/24/20 Daniel Plaza MD [address] [place] [phone] Assigned PCP 01/13/12 01/03/21 Stan Barnes MD [address] [place] [address] Assigned Surgical Provider 02/01/20 07/19/20 [place] [address] [place] [address] Assigned PCP 01/04/21 Stan Barnes MD [address] [place] [address] 294185 Assigned Surgical Provider 08/30/21 08/31/23 Trent Qureshi MD [facility] [address] [place] [address] 217815 Orthopaedic Surgery 09/16/21 Sammy Villa MD 420 [facility] 96 [place], [place] 150635 Assigned Neuroscience Provider 10/01/24 documented as of this encounter
--- OUTSIDE RECORDS SUMMARY | 2024-11-14 09:10 | XMS_ITS | Encounter Summary ---
Author Organization [place] Address [address] [place] [address]. [place] [address] Care Team Providers Care Tool And Machine Maintainer Name Role Phone Herb Herman MD Primary Care Provider [phone] Herb Herman MD Unavailable Trent Qureshi MD Unavailable [phone] Sammy Villa MD Unavailable [phone] Encounter Details Date Type Department Care Team (Late st Contact Info) Description 09/19/2024 [facility] Neurology [address], [address] [place] [address] Ana Larsen, IRENE Social History Tobacco [...] How often do you attend chur or jew services? 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 file documented as of this encounter Plan of Treatment Not on file documented as of this encounter Visit Diagnoses Not on filedocumented in this encounter Additional Health Concerns Assessment Noted Time PHQ-9 Depression Total Score: 0 05/02/19 25 10:13 AM INSPECTOR CLIP ON SUNGLASSES documented as of this encounter Care Teams Tool And Machine Maintainer Relationship Specialty [place] [address] [place] [address] PCP - General Family Medicine 12/24/20 [place] [address] [place] [address] Assigned PCP 01/04/21 Trent Qureshi MD [facility] [address] [place] [address] [phone] Orthopaedic Surgery 09/16/21 Sammy Villa MD [address] [place] [address] Assigned Neuroscience Provider 10/01/24 documented as of this encounter
--- OUTSIDE RECORDS SUMMARY | 2024-11-14 09:10 | XMS_ITS | Encounter Summary ---
Author Organization [place] Address [address] [place] [address] Care Team Providers Care 3D Designer Name Role Phone Herb Herman MD Primary Care Provider Herb Herman MD Unavailable Stan Barnes MD Unavailable [phone] Trent Qureshi MD Unavailable [phone] Sammy Villa MD Unavailable [phone] Reason for Visit * Reason Comments Medication Refill Encounter Details Date Type Department Care Team (Late st Contact Info) Description 01/28/[address] [phone] Daniel Plaza MD [address] [place] [phone] Medication Refill Social History Tobacco Use Types Packs/Day Years Used Date Smoking Tobacco: Never Smokeless Tobacco: Never Alcohol Use Standard Drinks/Week Comments No 0 (1 standard drink = 0.6 oz pur e alcohol) PHQ-2 Answer Date Recorded PHQ-2 Score 0 12/24/2020 Comments No Sex and Gender Information Value Date Recorded Sex Assigned at Female 01/16/2019 8:38 AM CDT Legal Sex Female 3:11 AM OIL AND GAS DRAFTER Gender Identity Female 01/16/2019 8:38 AM CDT Sexual Orientation Choose not to disclose 2021 11:32 AM OIL AND GAS DRAFTER documented as of this encounter Miscellaneous Notes [...] documented as of this encounter Care Teams 3D Designer Relationship Specialty [place] [address] [place] [address] PCP - General Family Medicine 12/24/20 [place] [address] [place] [address] Assigned PCP 01/04/21 Stan Barnes MD [address] [place] [address] Assigned Surgical Provider 08/30/21 08/31/23 Trent Qureshi MD [facility] [address] [place] [address] Orthopaedic Surgery 09/16/21 Sammy Villa MD [address] [place] [address] 995635 Assigned Neuroscience Provider 10/01/24 documented as of this encounter
--- OUTSIDE RECORDS SUMMARY | 2024-11-14 09:10 | XMS_ITS | Encounter Summary ---
Author Organization [place] Address [address] [place] [address] Care Team Providers Care Performance Test Architect Name Role Phone Daniel Plaza MD Primary Care Provider Daniel Plaza MD Unavailable Daniel Plaza MD Unavailable Stan Barnes MD Unavailable [phone] Herb Herman MD Primary Care Provider Herb Herman MD Unavailable Stan Barnes MD Unavailable [phone] Trent Qureshi MD Unavailable [phone] Sammy Villa MD Unavailable Encounter Details Date Type Department Care Team (Late st Contact Info) Description 04/28/2013 MyC Medical Advice [facility] [address] [address] Daniel Plaza MD [address] [phone] Social History Tobacco Use Types Packs/Day Years Used Date Smoking Tobacco: Never Smokeless Tobacco: Never Alcohol Use Standard Drinks/Week Comments No 0 (1 standard drink = 0.6 oz pur e alcohol) Comments No Sex and Gender Information Value Date Recorded Sex Assigned at Female 01/16/2019 8:38 AM CDT Legal Sex Female 3:11 AM SERVICE ADMINISTRATOR Gender Identity Female 01/16/2019 8:38 AM CDT Sexual Orientation Choose not to disclose 2021 11:32 AM SERVICE ADMINISTRATOR documented as of this encounter Plan of Treatment Not on file documented as of this encounter Visit Diagnoses Not on filedocumented in this encounter Care Teams Performance Test Architect Relationship Specialty Start Date End Date Daniel Plaza MD [address] [place] [phone] PCP - General 06/29/10 12/23/20 Daniel Plaza MD [address] [place] [phone] PCP - Assigned PCP 02/05/08 06/13/18 [place] [address] [place] [address] PCP - General Family Medicine 12/24/20 Daniel Plaza MD [address] [place] [phone] Assigned PCP 01/13/12 01/03/21 Stan Barnes MD [address] [place] [address] Assigned Surgical Provider 02/01/20 07/19/20 [place] [address] [place] [address] Assigned PCP 01/04/21 Stan Barnes MD [address] [place] [address] 069675 Assigned Surgical Provider 08/30/21 08/31/23 Trent Qureshi MD [facility] [address] [place] [address] 074435 Orthopaedic Surgery 09/16/21 Sammy Villa MD 420 [facility] 96 [place], [place] 493215 Assigned Neuroscience Provider 10/01/24 documented as of this encounter
--- OUTSIDE RECORDS SUMMARY | 2024-11-14 09:10 | XMS_ITS | Encounter Summary ---
Author Organization [place] Address [address] [place] [address]. [place] [address] Care Team Providers Care Csr Name Role Phone Herb Herman MD Primary Care Provider [phone] Herb Herman MD Unavailable Trent Qureshi MD Unavailable [phone] Sammy Villa MD Unavailable [phone] Encounter Details Date Type Department Care Team (Late st Contact Info) Description 03/31/2024 MyC Medical Advice [facility] [address] [place] [address] [place] [address] [place] [address] Social History Tobacco Use Types [...] you attend [facility] or alevism services? 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 file documented as of this encounter Plan of Treatment Not on file documented as of this encounter Visit Diagnoses Not on filedocumented in this encounter Additional Health Concerns Assessment Noted Time PHQ-9 Depression Total Score: 0 05/02/19 24 10:52 AM HEAD TURBINE OPERATOR documented as of this encounter Care Teams Csr Relationship Specialty [place] [address] [place] [address] PCP - General Family Medicine 12/24/20 [place] [address] [place] [address] Assigned PCP 01/04/21 Trent Qureshi MD [facility] [address] [place] [address] Orthopaedic Surgery 09/16/21 Sammy Villa MD [address] [place] [address] Assigned Neuroscience Provider 10/01/24 documented as of this encounter
--- OUTSIDE RECORDS SUMMARY | 2024-11-14 09:10 | XMS_ITS | Encounter Summary ---
Author Organization [place] Address [address] [place] [address] Care Team Providers Care Paper Rewinder Name Role Phone Daniel Plaza MD Primary Care Provider Daniel Plaza MD Unavailable Daniel Plaza MD Unavailable [phone] Stan Barnes MD Unavailable [phone] Herb Herman MD Primary Care Provider [phone] Herb Herman MD Unavailable Stan Barnes MD Unavailable [phone] Trent Qureshi MD Unavailable [phone] Sammy Villa MD Unavailable [phone] Encounter Details Date Type Department Care Team (Late st Contact Info) Description 07/25/2012 MyC Medical Advice [facility] [address] [address] Daniel Plaza MD [address] [phone] Social History Tobacco Use Types Packs/Day Years Used Date Smoking Tobacco: Never Smokeless Tobacco: Never Alcohol Use Standard Drinks/Week Comments No 0 (1 standard drink = 0.6 oz pur e alcohol) Comments No Sex and Gender Information Value Date Recorded Sex Assigned at Female 01/16/2019 8:38 AM CDT Legal Sex Female 3:11 AM FRETTED STRING INSTRUMENT REPAIRER Gender Identity Female 01/16/2019 8:38 AM CDT Sexual Orientation Choose not to disclose 2021 11:32 AM FRETTED STRING INSTRUMENT REPAIRER documented as of this encounter Plan of Treatment Not on file documented as of this encounter Visit Diagnoses Not on filedocumented in this encounter Care Teams Paper Rewinder Relationship Specialty Start Date End Date Daniel Plaza MD [address] [place] [phone] PCP - General 06/29/10 12/23/20 Daniel Plaza MD [address] [place] [phone] PCP - Assigned PCP 02/05/08 06/13/18 [place] [address] [place] [address] PCP - General Family Medicine 12/24/20 Daniel Plaza MD [address] [place] [phone] Assigned PCP 01/13/12 01/03/21 Stan Barnes MD [address] [place] [address] Assigned Surgical Provider 02/01/20 07/19/20 [place] [address] [place] [address] Assigned PCP 01/04/21 Stan Barnes MD [address] [place] [address] 277995 Assigned Surgical Provider 08/30/21 08/31/23 Trent Qureshi MD [facility] [address] [place] [address] 094345 Orthopaedic Surgery 09/16/21 Sammy Villa MD 420 [facility] 96 [place], [place] 899365 Assigned Neuroscience Provider 10/01/24 documented as of this encounter
--- OUTSIDE RECORDS SUMMARY | 2024-11-14 09:10 | XMS_ITS | Encounter Summary ---
Author Organization [place] Address [address] [place] [address]. [place] [address] Care Team Providers Care Lawn Service Worker Name Role Phone Herb Herman MD Primary Care Provider Herb Herman MD Unavailable Stan Barnes MD Unavailable [phone] Trent Qureshi MD Unavailable [phone] Sammy Villa MD Unavailable [phone] Encounter Details Date Type Department Care Team (Late st Contact Info) Description 08/10/2021 [facility] Medical Advice [facility] [address] 4th [place] [address] Rodolfo Cline Social History Tobacco [...] How often do you attend [facility] or pentecostal services? More than 4 [...] Date Recorded PHQ-2 Score 0 06/24/2021 [facility] of Occupat ional [facility] [...] CDT Legal Sex Female 3:11 AM TUBE TURNER Gender Identity Female 01/16/2019 8:38 AM CDT Sexual Orientation Choose not to disclose 2021 11:32 AM TUBE TURNER Occupation Industry Job Start Date Job End [...] Total Score: 0 06/10/19 22 7:01 AM TUBE TURNER documented as of this encounter Care Teams Lawn Service Worker Relationship Specialty [place] [address] [place] [address] PCP - General Family Medicine 12/24/20 [place] [address] [place] [address] Assigned PCP 01/04/21 Stan Barnes MD [address] [place] [address] Assigned Surgical Provider 08/30/21 08/31/23 Trent Qureshi MD [facility] [address] [address] Orthopaedic Surgery 09/16/21 Sammy Villa MD [address] [place] [address] 96 [place], [place] 207675 Assigned Neuroscience Provider 10/01/24 documented as of this encounter
--- OUTSIDE RECORDS SUMMARY | 2024-11-14 09:10 | XMS_ITS | Encounter Summary ---
Author Organization [place] Address [address] [place] [address] Care Team Providers Care Recovery Room Rn Name Role Phone Herb Herman MD Primary Care Provider Herb Herman MD Unavailable Stan Barnes MD Unavailable [phone] Trent Qureshi MD Unavailable [phone] Sammy Villa MD Unavailable Encounter Details Date Type Department Care Team (Late st Contact Info) Description 09/15/2021 Orders Only [facility] [address] [place] [address] Manny Petersen MD [address] [place], [place] [phone] Encounter for laboratory testing for COVID-19 virus [...] often do you attend chur ch or hinduism services? More than 4 times [...] Answer Date Recorded PHQ-2 Score 0 09/15/2021 [facility] of Occupat ional Health [...] AM CDT Legal Sex Female 3:11 AM SODA MAKER Gender Identity Female 01/16/2019 8:38 AM CDT Sexual Orientation Choose not to disclose 2021 11:32 AM SODA MAKER Occupation Industry Job Start Date Job [...] the balbina SARS-CoV-2 assay on the balbina [employer] System. This test should be ordered for [...] COVID-19. This test was validated by the [facility]. This laboratory is certified under the Clinical Laboratory Improvement Amendments of 1988 (CLIA-88) as qualified to perform high and/or moderate complexity laboratory testing. Manny Petersen MD LAB - MICRO GENERAL ORDERABLES F inal Result [facility] Inf. Diseases Diag. Lab 500 [facility], Room D297 [place] [phone] [phone] documented in this encounter Visit Diagnoses Diagnosis Encounter for laboratory testing for COVID-19 virus documented in this encounter Additional Health Concerns Assessment Noted Time PHQ-9 Depression Total Score: 1 08/23/19 22 7:03 AM CDT documented as of this encounter Care Teams Recovery Room Rn Relationship Specialty [place] [address] [place] [address] PCP - General Family Medicine 12/24/20 [place] [address] [place] [address] Assigned PCP 01/04/21 Stan Barnes MD 909 [place] [address] Assigned Surgical Provider 08/30/21 08/31/23 Trent Qureshi MD [facility] [address] [address] Orthopaedic Surgery 09/16/21 Sammy Villa MD [address] [place] [address] 96 [place], [place] 997325 Assigned Neuroscience Provider 10/01/24 documented as of this encounter
--- OUTSIDE RECORDS SUMMARY | 2024-11-14 09:10 | XMS_ITS | Encounter Summary ---
Author Organization [place] Address [address] [place] [address]. [place] [address] Care Team Providers Care Loan Manager Name Role Phone Herb Herman MD Primary Care Provider [phone] Herb Herman MD Unavailable Stan Barnes MD Unavailable [phone] Trent Qureshi MD Unavailable [phone] Sammy Villa MD Unavailable Encounter Details Date Type Department Care Team (Late st Contact Info) Description 07/16/2021 MyC Medical Advice [facility] [address] [place] [address] [place] [address] [place] [address] Social History Tobacco Use Types [...] Answer Date Recorded PHQ-2 Score 0 06/24/2021 [facility] of Occupat ional Health - Occupational [...] AM CDT Legal Sex Female 3:11 AM ELECTRONIC SYSTEM ENGINEER Gender Identity Female 01/16/2019 8:38 AM CDT Sexual Orientation Choose not to disclose 2021 11:32 AM ELECTRONIC SYSTEM ENGINEER Occupation Industry Job Start Date Job [...] Total Score: 0 06/10/19 22 7:01 AM ELECTRONIC SYSTEM ENGINEER documented as of this encounter Care Teams Loan Manager Relationship Specialty [place] [address] [place] [address] PCP - General Family Medicine 12/24/20 [place] [address] [place] [address] Assigned PCP 01/04/21 Stan Barnes MD [address] [place] [address] Assigned Surgical Provider 5/22/22 5/22/24 Trent Qureshi MD [facility] [address] [place] [address] 178415 Orthopaedic Surgery 09/16/21 Sammy Villa MD [address] [place] [address] [phone] Assigned Neuroscience Provider 10/01/24 documented as of this encounter
--- OUTSIDE RECORDS SUMMARY | 2024-11-14 09:10 | XMS_ITS | Encounter Summary ---
Author Organization [place] Address [facility] [place] [address] Care Team Providers Care Failure Analysis Engineer Name Role Phone Herb Herman MD Primary Care Provider Herb Herman MD Unavailable Stan Barnes MD Unavailable [phone] Trent Qureshi MD Unavailable [phone] Sammy Villa MD Unavailable Encounter Details Date Type Department Care Team (Late st Contact Info) Description 06/29/2021 MyC Medical Advice [facility] [address] [place] [address] [place] [address] [place] [address] Social History Tobacco Use Types [...] often do you attend chur ch or orthodox services? More than 4 times [...] Answer Date Recorded PHQ-2 Score 0 06/24/2021 [facility] of Occupat [...] AM CDT Legal Sex Female 3:11 AM PRE BILLING SPECIALIST Gender Identity Female 01/16/2019 8:38 AM CDT Sexual Orientation Choose not to disclose 2021 11:32 AM PRE BILLING SPECIALIST COVID-19 Exposure Response Date Recorded In the [...] Total Score: 0 06/10/19 22 7:01 AM PRE BILLING SPECIALIST documented as of this encounter Care Teams Failure Analysis Engineer Relationship Specialty [place] [address] [place] [address] PCP - General Family Medicine 12/24/20 [place] [address] [place] [address] Assigned PCP 01/04/21 Stan Barnes MD 909 [place] [address] Assigned Surgical Provider 08/30/21 08/31/23 Trent Qureshi MD [facility] [address] 49999[address] Orthopaedic Surgery 09/16/21 Sammy Villa MD [address] [place] [address] 96 [place], [place] 553635 Assigned Neuroscience Provider 10/01/24 documented as of this encounter
--- OUTSIDE RECORDS SUMMARY | 2024-11-14 09:10 | XMS_ITS | Encounter Summary ---
Author Organization [facility] Address [address] [place] [address]. [place] [address] Care Team Providers Care Can Vacuum Tester Name Role Phone Herb Herman MD Primary Care Provider Herb Herman MD Unavailable Stan Barnes MD Unavailable [phone] Trent Qureshi MD Unavailable [phone] Sammy Villa MD Unavailable Reason for Visit * Reason Onset Date Comments Medication Request 07/13/2021 Encounter Details Date Type Department Care Team (Late st Contact Info) Description 07/13/2021 MyC Medical Advice [facility] [address] [place] [address] [place] [id number] [place] [address] Medication Request Social History Tobacco Use [...] often do you attend chur ch or gnosticist services? More than 4 times [...] AM CDT Legal Sex Female 3:11 AM FANCY PACKER Gender Identity Female 01/16/2019 8:38 AM CDT Sexual Orientation Choose not to disclose 2021 11:32 AM FANCY PACKER Occupation Industry Job Start Date Job End [...] Total Score: 0 06/10/19 22 7:01 AM FANCY PACKER documented as of this encounter Care Teams Can Vacuum Tester Relationship Specialty [place] [address] [place] [address] PCP - General Family Medicine 12/24/20 [place] [address] [place] [address] Assigned PCP 01/04/21 Stan Barnes MD [address] [place] [address] Assigned Surgical Provider 08/30/21 08/31/23 Trent Qureshi MD [facility] [address] [place] [address] Orthopaedic Surgery 09/16/21 Sammy Villa MD [address] [place] [address] Assigned Neuroscience Provider 10/01/24 documented as of this encounter
--- OUTSIDE RECORDS SUMMARY | 2024-11-14 09:10 | XMS_ITS | Encounter Summary ---
Author Organization [place] Address [address] [place] [address] Care Team Providers Care Regional Agronomist Name Role Phone Herb Herman MD Primary Care Provider [phone] Herb Herman MD Unavailable Stan Barnes MD Unavailable + [phone] Trent Qureshi MD Unavailable [phone] Sammy Villa MD Unavailable [phone] Encounter Details Date Type Department Care Team (Late st Contact Info) Description 06/27/2023 MyC Medical Advice [address] [address] Soraya Hutchinson CMA Social History [...] often do you attend [facility] or scientology services? 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 file documented as of this encounter Plan of Treatment Not on file documented as of this encounter Visit Diagnoses Not on filedocumented in this encounter Additional Health Concerns Assessment Noted Time PHQ-9 Depression Total Score: 0 05/02/19 24 10:52 AM ASSISTANT BASKETBALL COACH documented as of this encounter Care Teams Regional Agronomist Relationship Specialty [place] [address] [place] [address] PCP - General Family Medicine 12/24/20 [place] [address] [place] [address] Assigned PCP 01/04/21 Stan Barnes MD 909 [place] [address] Assigned Surgical Provider 08/30/21 08/31/23 Trent Qureshi MD [facility] [address] [phone] Orthopaedic Surgery 09/16/21 Sammy Villa MD [address] [place] [address] 96 [place], [place] 677[address] Assigned Neuroscience Provider 10/01/24 documented as of this encounter
--- OUTSIDE RECORDS SUMMARY | 2024-11-14 09:10 | XMS_ITS | Encounter Summary ---
Author Organization [facility] Address [address] [place] [address] Care Team Providers Care Data Processor Name Role Phone Daniel Plaza MD Primary Care Provider Daniel Plaza MD Unavailable [phone] Daniel Plaza MD Unavailable Stan Barnes MD Unavailable [phone] Herb Herman MD Primary Care Provider [phone] Herb Herman MD Unavailable Stan Barnes MD Unavailable [phone] Trent Qureshi MD Unavailable [phone] Sammy Villa MD Unavailable Encounter Details Date Type Department Care Team (Late st Contact Info) Description 02/28/2008 MyC Medical Advice [facility] [address] [address] Daniel Plaza MD [address] [phone] Social History Tobacco Use Types Packs/Day Years Used Date Smoking Tobacco: Never Alcohol Use Standard Drinks/Week Comments Yes 0 (1 standard drink = 0.6 oz pur e alcohol) social Comments No Sex and Gender Information Value Date Recorded Sex Assigned at Female 01/16/2019 8:38 AM CDT Legal Sex Female 3:11 AM DOCUMENT CONTROL ASSOCIATE Gender Identity Female 01/16/2019 8:38 AM CDT Sexual Orientation Choose not to disclose 2021 11:32 AM DOCUMENT CONTROL ASSOCIATE documented as of this encounter Plan of Treatment Not on file documented as of this encounter Visit Diagnoses Not on filedocumented in this encounter Care Teams Data Processor Relationship Specialty Start Date End Date Daniel Plaza MD [address] [place] [phone] PCP - General 06/29/10 12/23/20 Daniel Plaza MD [address] [place] [phone] PCP - Assigned PCP 02/05/08 06/13/18 [place] [address] [place] [address] PCP - General Family Medicine 12/24/20 Daniel Plaza MD [address] [place] [phone] Assigned PCP 01/13/12 01/03/21 Stan Barnes MD 9 [place] [address] Assigned Surgical Provider 02/01/20 07/19/20 [place] [address] [place] [address] Assigned PCP 01/04/21 Stan Barnes MD [address] [place] [address] Assigned Surgical Provider 08/30/21 08/31/23 Trent Qureshi MD [facility] [address] 137[address] Orthopaedic Surgery 09/16/21 Sammy Villa MD 420 [facility] 96 [place] [address] Assigned Neuroscience Provider 10/01/24 documented as of this encounter
--- OUTSIDE RECORDS SUMMARY | 2024-11-14 09:10 | XMS_ITS | Encounter Summary ---
Author Organization [facility] [facility] Address [address] [place] [address] Care Team Providers Care Camp Assistant Name Role Phone Daniel Plaza MD Primary Care Provider Daniel Plaza MD Unavailable [phone] Daniel Plaza MD Unavailable [phone] Stan Barnes MD Unavailable [phone] Herb Herman MD Primary Care Provider Herb Herman MD Unavailable Stan Barnes MD Unavailable [phone] Trent Qureshi MD Unavailable [phone] Sammy Villa MD Unavailable Reason for Visit * Reason Onset Date Comments Medication Request 04/22/2015 Encounter Details Date Type Department Care Team (Late st Contact Info) Description 04/22/2015 [facility] Medical Advice [facility] [address] [address] Daniel Plaza MD [address] [address] Medication Request Social History Tobacco Use Types Packs/Day Years Used Date Smoking Tobacco: Never Smokeless Tobacco: Never Alcohol Use Standard Drinks/Week Comments No 0 (1 standard drink = 0.6 oz pur e alcohol) Comments No Sex and Gender Information Value Date Recorded Sex Assigned at Female 01/16/2019 8:38 AM CDT Legal Sex Female 3:11 AM MERCHANDISE EXAMINER Gender Identity Female 01/16/2019 8:38 AM CDT Sexual Orientation Choose not to disclose 2021 11:32 AM MERCHANDISE EXAMINER documented as of this encounter Plan of Treatment Not on file documented as of this encounter Visit Diagnoses Diagnosis Edema, unspecified edema- Primary documented in this encounter Care Teams Camp Assistant Relationship Specialty Start Date End Date Daniel Plaza MD [address] [place] [phone] PCP - General 06/29/10 12/23/20 Daniel Plaza MD [address] [place] [phone] PCP - Assigned PCP 02/05/08 06/13/18 [place] [address] [place] [address] PCP - General Family Medicine 12/24/20 Daniel Plaza MD [address] [place] [phone] Assigned PCP 01/13/12 01/03/21 Stan Barnes MD 9 [place] [address] Assigned Surgical Provider 02/01/20 07/19/20 [place] [address] [place] [address] Assigned PCP 01/04/21 Stan Barnes MD [address] [place] [address] Assigned Surgical Provider 08/30/21 08/31/23 Trent Qureshi MD [facility] [address] [place] [address] Orthopaedic Surgery 09/16/21 Sammy Villa MD [address] [place] [address] 96 [place] [address] Assigned Neuroscience Provider 10/01/24 documented as of this encounter
--- OUTSIDE RECORDS SUMMARY | 2024-11-14 09:10 | XMS_ITS | Clinical Summary ---
Author Organization [facility] Address [address] [place] [address] Care Team Providers Care Plant And Equipment Worker Name Role Phone Herb Herman MD Primary Care Provider [phone] Allergies Active Allergy Reactions Criticality Noted Date [...] (10/18/2024): Seen incidentally on CT done at [facility] 12/22/2015 Spinal stenosis of lumbar re gion [...] Visit [facility] [address] [place] [address] Felisha Perez, CUTTER HAND, SUPERCHARGER REPAIR SUPERVISOR Speech disturbance, unspecified type (Primary Dx); Abnormality [...] patient's age to complete this topic Insurance [employer] Care Teams Plant And Equipment Worker Relationship Specialty [place] [address] [place] [address] PCP - General Family Medicine - 10/18/24
--- OUTSIDE RECORDS SUMMARY | 2024-11-14 09:10 | XMS_ITS | Encounter Summary ---
Author Organization [facility] Address [address] [place] [address]. [place] [address] Care Team Providers Care Tire Wrapper Name Role Phone Herb Herman MD Primary Care Provider [phone] Herb Herman MD Unavailable Stan Barnes MD Unavailable [phone] Trent Qureshi MD Unavailable [phone] Sammy Villa MD Unavailable [phone] Encounter Details Date Type Department Care Team (Late st Contact Info) Description 08/27/2021 MyC Medical Advice [address] 5[address] [place] [address] Rachelle Mai RN Social History [...] How often do you attend chur or worship services? More than 4 times per year [...] Answer Date Recorded PHQ-2 Score 0 08/25/2021 [facility] [...] AM CDT Legal Sex Female 3:11 AM BROKERAGE MANAGER Gender Identity Female 01/16/2019 8:38 AM CDT Sexual Orientation Choose not to disclose 2021 11:32 AM BROKERAGE MANAGER Occupation Industry Job Start Date Job [...] documented as of this encounter Care Teams Tire Wrapper Relationship Specialty [place] [address] [place] [address] PCP - General Family Medicine 12/24/20 [place] [address] [place] [address] Assigned PCP 01/04/21 Stan Barnes MD [address] [place] [address] Assigned Surgical Provider 08/30/21 08/31/23 Trent Qureshi MD [facility] [address] [address] Orthopaedic Surgery 09/16/21 Sammy Villa MD [address] [place] [address] 96 [place], [place] 125575 Assigned Neuroscience Provider 10/01/24 documented as of this encounter
--- OUTSIDE RECORDS SUMMARY | 2024-11-14 09:10 | XMS_ITS | Encounter Summary ---
Author Organization [facility] Address [address] [place] [address] Care Team Providers Care Director Of Rehabilitative Services Name Role Phone Daniel Plaza MD Primary Care Provider Daniel Plaza MD Unavailable [phone] Daniel Plaza MD Unavailable [phone] Stan Barnes MD Unavailable [phone] Herb Herman MD Primary Care Provider [phone] Herb Herman MD Unavailable Stan Barnes MD Unavailable [phone] Trent Qureshi MD Unavailable [phone] Sammy Villa MD Unavailable Reason for Visit * Reason Onset Date Comments Respiratory Problems 02/16/2008 Encounter Details Date Type Department Care Team (Latest Contact Info) Description 02/15/2008 MyC Medical Advice [facility] [address] [address] Daniel Plaza MD [address] [address] Respiratory Problems Social History Tobacco Use Types Packs/Day Years Used Date Smoking Tobacco: Never Alcohol Use Standard Drinks/Week Comments Yes 0 (1 standard drink = 0.6 oz pur e alcohol) social Comments No Sex and Gender Information Value Date Recorded Sex Assigned at Female 01/16/2019 8:38 AM CDT Legal Sex Female 3:11 AM DETECTIVE SERGEANT Gender Identity Female 01/16/2019 8:38 AM CDT Sexual Orientation Choose not to disclose 2021 11:32 AM DETECTIVE SERGEANT documented as of this encounter Plan of Treatment Not on file documented as of this encounter Visit Diagnoses Not on filedocumented in this encounter Care Teams Director Of Rehabilitative Services Relationship Specialty Start Date End Date Daniel Plaza MD [address] [place] [phone] PCP - General 06/29/10 12/23/20 Daniel Plaza MD [address] [place] [phone] PCP - Assigned PCP 02/05/08 06/13/18 [place] [address] [place] [address] PCP - General Family Medicine 12/24/20 Daniel Plaza MD [address] [place] [phone] Assigned PCP 01/13/12 01/03/21 Stan Barnes MD [address] [place] [address] Assigned Surgical Provider 02/01/20 07/19/20 [place] [address] [place] [address] Assigned PCP 01/04/21 Stan Barnes MD [address] [place] [address] 294235 Assigned Surgical Provider 08/30/21 08/31/23 Trent Qureshi MD [facility] [address] [place] [address] 782365 Orthopaedic Surgery 09/16/21 Sammy Villa MD [address] [place] [address] 96 [place], [place] 928305 Assigned Neuroscience Provider 10/01/24 documented as of this encounter
--- OUTSIDE RECORDS SUMMARY | 2024-11-14 09:10 | XMS_ITS | Encounter Summary ---
Author Organization [facility] Address [address] [place] [address] Care Team Providers Care Innersole Maker Name Role Phone Daniel Plaza MD Primary Care Provider Daniel Plaza MD Unavailable [phone] Stan Barnes MD Unavailable [phone] Herb Herman MD Primary Care Provider [phone] Herb Herman MD Unavailable Stan Barnes MD Unavailable [phone] Trent Qureshi MD Unavailable [phone] Sammy Villa MD Unavailable Encounter Details Date Type Department Care Team (Late st Contact Info) Description 12/21/2018 [facility] [address] [place] [address] [address] [place] [address] Stan Barnes MD [address] [place] [address] Social History Tobacco Use Types Packs/Day Years Used Date Smoking Tobacco: Never Smokeless Tobacco: Never Alcohol Use Standard Drinks/Week Comments No 0 (1 standard drink = 0.6 oz pur e alcohol) PHQ-2 Answer Date Recorded PHQ-2 Score 0 04/18/2018 Comments No Sex and Gender Information Value Date Recorded Sex Assigned at Female 01/16/2019 8:38 AM CDT Legal Sex Female 3:11 AM ONCOLOGY COORDINATOR Gender Identity Female 01/16/2019 8:38 AM CDT Sexual Orientation Choose not to disclose 2021 11:32 AM ONCOLOGY COORDINATOR documented as of this encounter Plan of Treatment Not on file documented as of this encounter Visit Diagnoses Not on filedocumented in this encounter Additional Health Concerns Assessment Noted Time PHQ-9 Depression Total Score: 0 11/24/19 19 11:34 AM CDT documented as of this encounter Care Teams Innersole Maker Relationship Specialty Start Date End Date Daniel Plaza MD [address] [place] [phone] PCP - General 06/29/10 12/23/20 [place] [address] [place] [address] PCP - General Family Medicine 12/24/20 Daniel Plaza MD [address] [place] [phone] Assigned PCP 01/13/12 01/03/21 Stan Barnes MD [address] [place] [address] Assigned Surgical Provider 02/01/20 07/19/20 [place] [address] [place] [address] Assigned PCP 01/04/21 Stan Barnes MD [address] [place] [address] 015525 Assigned Surgical Provider 08/30/21 08/31/23 Trent Qureshi MD [facility] [address] [place] [address] 087965 Orthopaedic Surgery 09/16/21 Sammy Villa MD [address] [place] [address] [id number] Assigned Neuroscience Provider 10/01/24 documented as of this encounter
--- OUTSIDE RECORDS SUMMARY | 2024-11-14 09:10 | XMS_ITS | Encounter Summary ---
Author Organization [facility] Address [address] [place] [address] Care Team Providers Care Linotype Worker Name Role Phone Herb Herman MD Primary Care Provider Herb Herman MD Unavailable Trent Qureshi MD Unavailable [phone] Sammy Villa MD Unavailable Encounter Details Date Type Department Care Team (Late st Contact Info) Description 02/20/2024 [facility] Medical Advice [address] [address] Brooke Barnes Social History Tobacco [...] CDT Legal Sex Female 3:11 AM PLASTIC PRODUCTS SALES REPRESENTATIVE Gender Identity Female 01/16/2019 8:38 AM CDT Sexual Orientation Choose not to disclose 2021 11:32 AM PLASTIC PRODUCTS SALES REPRESENTATIVE 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 file documented as of this encounter Plan of Treatment Not on file documented as of this encounter Visit Diagnoses Not on filedocumented in this encounter Additional Health Concerns Assessment Noted Time PHQ-9 Depression Total Score: 0 05/02/19 24 10:52 AM PLASTIC PRODUCTS SALES REPRESENTATIVE documented as of this encounter Care Teams Linotype Worker Relationship Specialty [place] [address] [place] [address] PCP - General Family Medicine 12/24/20 [place] [address] [place] [address] Assigned PCP 01/04/21 Trent Qureshi MD [facility] [address] [place] [address] [phone] Orthopaedic Surgery 09/16/21 Sammy Villa MD [address] [place] [address] [phone] Assigned Neuroscience Provider 10/01/24 documented as of this encounter
--- OUTSIDE RECORDS SUMMARY | 2024-11-14 09:10 | XMS_ITS | Encounter Summary ---
Author Organization [place] Address [address] [place] [address]. [place] [address] Care Team Providers Care Substation Maintenance Technician Name Role Phone Herb Herman MD Primary Care Provider Herb Herman MD Unavailable Trent Qureshi MD Unavailable [phone] Sammy Villa MD Unavailable Reason for Visit * Reason Onset Date Comments MyChart Communication 03/30/2024 Encounter Details Date Type Department Care Team (Latest Contact Info) Description 03/30/2024 MyC Medical Advice [facility] [address] [place] [address] [place] [address] [place] [address] MyChart Communication Social History Tobacco [...] Answer Date Recorded PHQ-2 Score 0 05/02/2023 [facility] - Occupational Stress Questionnaire Answer [...] AM CDT Legal Sex Female 3:11 AM ENERGY RATER Gender Identity Female 01/16/2019 8:38 AM CDT Sexual Orientation Choose not to disclose 2021 11:32 AM ENERGY RATER 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 file documented as of this encounter Plan of Treatment Not on file documented as of this encounter Visit Diagnoses Not on filedocumented in this encounter Additional Health Concerns Assessment Noted Time PHQ-9 Depression Total Score: 0 05/02/19 24 10:52 AM ENERGY RATER documented as of this encounter Care Teams Substation Maintenance Technician Relationship Specialty [place] [address] [place] [address] PCP - General Family Medicine 12/24/20 [place] [address] [place] [address] Assigned PCP 01/04/21 Trent Qureshi MD [facility] [address] [place] [address] Orthopaedic Surgery 09/16/21 Sammy Villa MD [address] [place] [address] [phone] Assigned Neuroscience Provider 10/01/24 documented as of this encounter
--- OUTSIDE RECORDS SUMMARY | 2024-11-14 09:11 | XMS_ITS | Encounter Summary ---
Author Organization [place] [facility] Address [address] [place] [address] Care Team Providers Care Web Press Operator Name Role Phone Daniel Plaza MD Primary Care Provider Daniel Plaza MD Unavailable Daniel Plaza MD Unavailable [phone] Stan Barnes MD Unavailable [phone] Herb Herman MD Primary Care Provider Herb Herman MD Unavailable Stan Barnes MD Unavailable [phone] Trent Qureshi MD Unavailable [phone] Sammy Villa MD Unavailable [phone] Encounter Details Date Type Department Care Team (Late st Contact Info) Description 10/30/2014 MyC Medical Advice [facility] [address] [address] Daniel Plaza MD [address] [phone] Social History Tobacco Use Types Packs/Day Years Used Date Smoking Tobacco: Never Smokeless Tobacco: Never Alcohol Use Standard Drinks/Week Comments No 0 (1 standard drink = 0.6 oz pur e alcohol) Comments No Sex and Gender Information Value Date Recorded Sex Assigned at Female 01/16/2019 8:38 AM CDT Legal Sex Female 3:11 AM SANITATION TANK WASHER Gender Identity Female 01/16/2019 8:38 AM CDT Sexual Orientation Choose not to disclose 2021 11:32 AM SANITATION TANK WASHER documented as of this encounter Miscellaneous Notes [...] on filedocumented in this encounter Care Teams Web Press Operator Relationship Specialty Start Date End Date Daniel Plaza MD [address] [place] [phone] PCP - General 06/29/10 12/23/20 Daniel Plaza MD [address] [place] [phone] PCP - Assigned PCP 02/05/08 06/13/18 [place] [address] [place] [address] PCP - General Family Medicine 12/24/20 Daniel Plaza MD [address] [place] [address] Assigned PCP 01/13/12 01/03/21 Stan Barnes MD [address] [place] [address] Assigned Surgical Provider 02/01/20 07/19/20 [place] [address] [place] [address] Assigned PCP 01/04/21 Stan Barnes MD [address] [place] [address] Assigned Surgical Provider 08/30/21 08/31/23 Trent Qureshi MD [facility] [address] [place] [address] Orthopaedic Surgery 09/16/21 Sammy Villa MD [address] [place] [address] 96 [place], [place] 766665 Assigned Neuroscience Provider 10/01/24 documented as of this encounter
--- OUTSIDE RECORDS SUMMARY | 2024-11-14 09:11 | XMS_ITS | Encounter Summary ---
Author Organization [place] Address [address] [place] [address] Care Team Providers Care Sporting Goods Sales Manager Name Role Phone Herb Herman MD Primary Care Provider [phone] Herb Herman MD Unavailable Stan Barnes MD Unavailable + [phone] Trent Qureshi MD Unavailable [phone] Sammy Villa MD Unavailable [phone] Encounter Details Date Type Department Care Team (Late st Contact Info) Description 12/23/2021 [facility] Medical Advice [address] [address] Brooke Barnes Social History Tobacco [...] How often do you attend chur or christian services? More than 4 times [...] Answer Date Recorded PHQ-2 Score 0 11/24/2021 [facility] - Occupational Stress Questionnaire Answer Date [...] AM CDT Legal Sex Female 3:11 AM BOARD LINING MACHINE OPERATOR Gender Identity Female 01/16/2019 8:38 AM CDT Sexual Orientation Choose not to disclose 2021 11:32 AM BOARD LINING MACHINE OPERATOR Occupation Industry Job Start Date [...] documented as of this encounter Care Teams Sporting Goods Sales Manager Relationship Specialty [place] [address] [place] [address] PCP - General Family Medicine 12/24/20 [place] [address] [place] [address] Assigned PCP 01/04/21 Stan Barnes MD [address] [place] [address]887 Assigned Surgical Provider 08/30/21 08/31/23 Trent Qureshi MD [facility] [address] [place] [address] Orthopaedic Surgery 09/16/21 Sammy Villa MD [address] [place] [address] 96 [place], [place] 391615 Assigned Neuroscience Provider 10/01/24 documented as of this encounter
--- OUTSIDE RECORDS SUMMARY | 2024-11-14 09:11 | XMS_ITS | Encounter Summary ---
Author Organization [place] Address [address] [place] [address] Care Team Providers Care Etl Data Architect Name Role Phone Daniel Plaza MD Primary Care Provider Daniel Plaza MD Unavailable Daniel Plaza MD Unavailable Stan Barnes MD Unavailable [phone] Herb Herman MD Primary Care Provider Herb Herman MD Unavailable Stan Barnes MD Unavailable [phone] Trent Qureshi MD Unavailable [phone] Sammy Villa MD Unavailable [phone] Encounter Details Date Type Department Care Team (Late st Contact Info) Description 10/30/2014 My[facility] Medical Advice [facility] [address] [address] Daniel Plaza MD [address] [phone] Social History Tobacco Use Types Packs/Day Years Used Date Smoking Tobacco: Never Smokeless Tobacco: Never Alcohol Use Standard Drinks/Week Comments No 0 (1 standard drink = 0.6 oz pur e alcohol) Comments No Sex and Gender Information Value Date Recorded Sex Assigned at Female 01/16/2019 8:38 AM CDT Legal Sex Female 3:11 AM RESEARCH AND DEVELOPMENT SCIENTIST Gender Identity Female 01/16/2019 8:38 AM CDT Sexual Orientation Choose not to disclose 2021 11:32 AM RESEARCH AND DEVELOPMENT SCIENTIST documented as of this encounter Plan of Treatment Not on file documented as of this encounter Visit Diagnoses Not on filedocumented in this encounter Care Teams Etl Data Architect Relationship Specialty Start Date End Date Daniel Plaza MD [address] [place] [phone] PCP - General 06/29/10 12/23/20 Daniel Plaza MD [address] [place] [phone] PCP - Assigned PCP 02/05/08 06/13/18 [place] [address] [place] [address] PCP - General Family Medicine 12/24/20 Daniel Plaza MD [address] [place] [phone] Assigned PCP 01/13/12 01/03/21 Stan Barnes MD [address] [place] [address] Assigned Surgical Provider 02/01/20 07/19/20 [place] [address] [place] [address] Assigned PCP 01/04/21 Stan Barnes MD [address] [place] [address] [id number] Assigned Surgical Provider 08/30/21 08/31/23 Trent Qureshi MD [facility] [address] [place] [address] 955595 Orthopaedic Surgery 09/16/21 Sammy Villa MD [address] [facility] [address] [place], [place] 8217[address] Assigned Neuroscience Provider 10/01/24 documented as of this encounter
--- OUTSIDE RECORDS SUMMARY | 2024-11-14 09:11 | XMS_ITS | Encounter Summary ---
Author Organization [place] Address [address] [place] [address] Care Team Providers Care Pin Setter Name Role Phone Daniel Plaza MD Primary Care Provider [phone] Daniel Plaza MD Unavailable [phone] Herb Herman MD Primary Care Provider Herb Herman MD Unavailable Stan Barnes MD Unavailable Trent Qureshi MD Unavailable [phone] Sammy Villa MD Unavailable [phone] Encounter Details Date Type Department Care Team (Late st Contact Info) Description 10/15/2020 MyC Medical Advice [address] [address] Yvonne Zavala Social History Tobacco [...] CDT Legal Sex Female 3:11 AM ELECTRONIC BENCH TECHNICIAN Gender Identity Female 01/16/2019 8:38 AM CDT Sexual Orientation Choose not to disclose 2021 11:32 AM ELECTRONIC BENCH TECHNICIAN documented as of this encounter Plan of Treatment Not on file documented as of this encounter Visit Diagnoses Not on filedocumented in this encounter Additional Health Concerns Assessment Noted Time PHQ-9 Depression Total Score: 1 06/26/19 21 11:29 AM CDT documented as of this encounter Care Teams Pin Setter Relationship Specialty Start Date End Date Daniel Plaza MD [address] [place] [phone] PCP - General 06/29/10 12/23/20 [place] [address] [place] [address] PCP - General Family Medicine 12/24/20 Daniel Plaza MD [address] [phone] Assigned PCP 01/13/12 01/03/21 [place] [address] [place] [address] Assigned PCP 01/04/21 Stan Barnes MD [address] [place] [address] Assigned Surgical Provider 08/30/21 08/31/23 Trent Qureshi MD [facility] [address] [place] [address] 089425 Orthopaedic Surgery 09/16/21 Sammy Villa MD [address] [place] [address] Assigned Neuroscience Provider 10/01/24 documented as of this encounter
--- OUTSIDE RECORDS SUMMARY | 2024-11-14 09:11 | XMS_ITS | Encounter Summary ---
Author Organization [place] Address [facility] [place] [address] Care Team Providers Care Lace Paper Machine Operator Name Role Phone Herb Herman MD Primary Care Provider [phone] Herb Herman MD Unavailable Stan Barnes MD Unavailable [phone] Trent Qureshi MD Unavailable [phone] Sammy Villa MD Unavailable [phone] Encounter Details Date Type Department Care Team (Late st Contact Info) Description 06/22/2022 MyC Medical Advice [facility] [id number] [place] [address] [place] [address] [place] [address] Social History Tobacco Use Types [...] often do you attend chur ch or scientologist services? 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 file documented as of this encounter Plan of Treatment Not on file documented as of this encounter Visit Diagnoses Not on filedocumented in this encounter Additional Health Concerns Assessment Noted Time PHQ-9 Depression Total Score: 0 03/08/20 22 10:26 AM INK BLENDER documented as of this encounter Care Teams Lace Paper Machine Operator Relationship Specialty [place] [address] [place] [address] PCP - General Family Medicine 12/24/20 [place] [address] [place] [address] Assigned PCP 01/04/21 Stan Barnes MD [address] [place] [address] 743635 Assigned Surgical Provider 08/30/21 08/31/23 Trent Qureshi MD [facility] [address] [place] [address] 266235 Orthopaedic Surgery 09/16/21 Sammy Villa MD [address] [place] [address] 606255 Assigned Neuroscience Provider 10/01/24 documented as of this encounter
--- OUTSIDE RECORDS SUMMARY | 2024-11-14 09:11 | XMS_ITS | Encounter Summary ---
Author Organization [place] Address [address] [place] [address] Care Team Providers Care Shaker Tender Name Role Phone Daniel Plaza MD Primary Care Provider [phone] Daniel Plaza MD Unavailable Daniel Plaza MD Unavailable Stan Barnes MD Unavailable [phone] Herb Herman MD Primary Care Provider [phone] Herb Herman MD Unavailable Stan Barnes MD Unavailable [phone] Trent Qureshi MD Unavailable [phone] Sammy Villa MD Unavailable [phone] Encounter Details Date Type Department Care Team (Late st Contact Info) Description 01/09/2014 [facility] Medical Advice [facility] [address] [address] Daniel Plaza MD [address] [phone] Social History Tobacco Use Types Packs/Day Years Used Date Smoking Tobacco: Never Smokeless Tobacco: Never Alcohol Use Standard Drinks/Week Comments No 0 (1 standard drink = 0.6 oz pur e alcohol) Comments No Sex and Gender Information Value Date Recorded Sex Assigned at Female 01/16/2019 8:38 AM CDT Legal Sex Female 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 AM 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 CARETAKER Gender Identity Female 01/16/2019 8:38 AM CDT Sexual Orientation Choose not to disclose 2021 11:32 AM LAWN CARETAKER documented as of this encounter Plan of Treatment Not on file documented as of this encounter Visit Diagnoses Not on filedocumented in this encounter Care Teams Shaker Tender Relationship Specialty Start Date End Date Daniel Plaza MD [address] [place] [phone] PCP - General 06/29/10 12/23/20 Daniel Plaza MD [address] [place] [phone] PCP - Assigned PCP 02/05/08 06/13/18 [place] [address] [place] [address] PCP - General Family Medicine 12/24/20 Daniel Plaza MD [address] [place] [phone] Assigned PCP 01/13/12 01/03/21 Stan Barnes MD [address] [place] [address] Assigned Surgical Provider 02/01/20 07/19/20 [place] [address] [place] [address] Assigned PCP 01/04/21 Stan Barnes MD [address] [place] [address] 202045 Assigned Surgical Provider 08/30/21 08/31/23 Trent Qureshi MD [facility] [address] [place] [address] [phone] Orthopaedic Surgery 09/16/21 Sammy Villa MD 420 [facility] 96 [place], [place] 338485 Assigned Neuroscience Provider 10/01/24 documented as of this encounter
--- OUTSIDE RECORDS SUMMARY | 2024-11-14 09:11 | XMS_ITS | Encounter Summary ---
Author Organization [place] Address [address] [place] [address] Care Team Providers Care Vessel Slag Worker Name Role Phone Daniel Plaza MD Primary Care Provider Daniel Plaza MD Unavailable [phone] Daniel Plaza MD Unavailable Stan Barnes MD Unavailable [phone] Herb Herman MD Primary Care Provider Herb Herman MD Unavailable Stan Barnes MD Unavailable [phone] Trent Qureshi MD Unavailable [phone] Sammy Villa MD Unavailable [phone] Reason for Visit * Reason Onset Date Comments Thyroid Disease 07/23/2014 Encounter Details Date Type Department Care Team (Late st Contact Info) Description 07/23/2014 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 CRUSHING MILL OPERATOR Gender Identity Female 01/16/2019 8:38 AM CDT Sexual Orientation Choose not to disclose 2021 11:32 AM CRUSHING MILL OPERATOR documented as of this encounter Plan of Treatment Not on file documented as of this encounter Visit Diagnoses Diagnosis MONTSERRAT'S THYROIDITIS- Primary Unspecified hypothyroidism documented in this encounter Care Teams Vessel Slag Worker Relationship Specialty Start Date End Date Daniel Plaza MD [address] [place] [phone] PCP - General 06/29/10 12/23/20 Daniel Plaza MD [address] [place] [phone] PCP - Assigned PCP 02/05/08 06/13/18 [place] [address] [place] [address] PCP - General Family Medicine 12/24/20 Daniel Plaza MD [address] [place] [phone] Assigned PCP 01/13/12 01/03/21 Stan Barnes MD 9 [place] [address] Assigned Surgical Provider 02/01/20 07/19/20 [place] [address] [place] [address] Assigned PCP 01/04/21 Stan Barnes MD [address] [place] [address] Assigned Surgical Provider 08/30/21 08/31/23 Trent Qureshi MD [facility] [address] [place] [address] Orthopaedic Surgery 09/16/21 Sammy Villa MD [address] [place] [address] 96 [place] [address] Assigned Neuroscience Provider 10/01/24 documented as of this encounter
--- NOTE | 2024-11-14 09:30 | ED_ITS ---
HPI - General Adult General Time Seen by Provider: 09:30 Date Seen: 11/14/24 Chief complaint: Nausea/Vomiting Stated complaint: Nasua, no sleep or eating- low BP Time Seen by Provider: 11/14/24 09:29 Source: patient, RN notes reviewed and old records reviewed Mode of arrival: ambulatory Limitations: no limitations History of Present Illness HPI narrative: This 79-year-old female is coming in to the ER with nausea, some abdominal pain. She really has not felt well. Not noting fevers. Not really passing stool and was evaluated on November 02 for constipation. She notes a burning type pain sensation in her stomach but does not really have any sense any regurgitation or reflux. Did have a CT at that time. She notes she really can not eat anything without getting sick, did have some vomiting yesterday. She is still passing flatus. Her CT scan from November 02 showed distended gallbladder containing multiple stones, questionable wall thickening. Recommend sonography for further evaluation. Probable thickening of the endometrium. This could be neoplastic. Additional evaluation is recommended. She actually saw her primary provider Dr. Ponce in the ED that day, he planned on following up on these issues outpatient. She states she just really can not eat anything, anything solid makes her ill. She also feels like she has lost her taste. She is not sure it is in because of new medicines for recent stroke in September. She is on Zetia and Plavix for those. Related Data Home Medications ?Medication ?Instructions ?Recorded ?Confirmed amitriptyline 25 mg tablet 25 mg PO QPM 01/31/2411/07 ergocalciferol (vitamin D2) 1,250 1,250 mcg PO .every week 01/31/24 11/07/24 mcg (50,000 unit) capsule levothyroxine 137 mcg tablet 137 mcg PO DAILY 01/31/24 11/07/24 metformin 1,000 mg tablet 1,000 mg PO BID 01/31/24 omeprazole 20 mg capsule,delayed 20 mg PO QPM 01/31/24 11/07/24 release Previous Rx's ?Medication ?Instructions ?Recorded aspirin 81 mg tablet 81 mg PO DAILY #90 tabs 09/10 09/02 clopidogrel 75 mg tablet 75 mg PO DAILY #30 tabs 09/10 10/03 ezetimibe 10 mg tablet (Zetia) 10 mg PO DAILY #90 tabs 10/23/24 hydrocodone 5 mg-acetaminophen 325 1 - 2 tab PO Q6-8H PRN pain #30 10/23/24 mg tablet tabs furosemide 20 mg tablet (Lasix) 20 mg PO QAM #30 tabs 11/07/24 lisinopril 20 1 tab PO DAILY #90 tabs 07 0/25 mg-hydrochlorothiazide 25 mg tablet Allergies Allergy/AdvReac Type Severity Reaction Status Date / Time atorvastatin Allergy Unknown Verified 11/07/24 15:46 niacin Allergy Unknown Verified 11/07/24 15:46 piroxicam Allergy Unknown Verified 11/07/24 15:46 pravastatin Allergy Unknown Verified 11/07/24 15:46 rosuvastatin Allergy Unknown Verified 11/07/24 15:46 simvastatin Allergy Unknown Verified 11/07/24 15:46 doxycycline Allergy Verified 11/07/24 15:46 erythromycin base Allergy Verified 11/07/24 15:46 morphine Allergy Verified 11/07/24 15:46 Review of Systems Status of ROS: Reports: 6 or more systems reviewed and unremarkable except as noted in History and below [facility] Medical History Edema ?R60.9 - Edema, unspecified (ICD-10) Hyperlipidemia ?E78.5 - Hyperlipidemia, unspecified (ICD-10) Major 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 (12/22/15) ?F32.5 - Major depressive disorder, single episode, in full remission (ICD- 10) Poor balance (05/20/23) ?R26.89 - Other abnormalities of gait and mobility (ICD-10) Spinal stenosis of lumbar region with neurogenic claudication (03/20/15) ?M48.062 - Spinal stenosis, lumbar region with neurogenic claudication (ICD- 10) Lumbar radiculopathy ?M54.16 - Radiculopathy, lumbar region (ICD-10) Lumbosacral radiculitis ?M54.17 - Radiculopathy, lumbosacral region (ICD-10) Lumbar spondylosis ?M47.816 - Spondylosis without myelopathy or radiculopathy, lumbar region (ICD-10) Obesity (BMI 30-39.9) ?E66.9 - Obesity, unspecified (ICD-10) Chronic kidney disease, stage 3a ?N18.31 - Chronic kidney disease, stage 3a (ICD-10) Insomnia ?G47.00 - Insomnia, unspecified (ICD-10) Acquired hypothyroidism ?E03.9 - Hypothyroidism, unspecified (ICD-10) 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 - Stenosis of larynx (ICD-10) Diabetes mellitus type 2, controlled ?E11.9 - Type 2 diabetes mellitus without complications (ICD-10) Vitamin D deficiency ?E55.9 - Vitamin D deficiency, unspecified (ICD-10) Essential hypertension ?I10 - Essential (primary) hypertension (ICD-10) Surgical History S/P total hip arthroplasty (09/21/21) ?Z96.649 - Presence of unspecified artificial hip joint (ICD-10) Social History What is your current living situation?: I presently have a place to live Problems where you live: no known problems Problems where you live details: NA In the past 12 months, utilities in danger of being shut off: no In past 12 months, lack of transportation kept you from medical appts, meetings, work, or getting things needed for daily living: no In the past 12 mos, have been you worried that your food would run out before you had money to buy more?: never true In the past 12 mos, the food you bought just didn't last and you didn't have money to buy more?: never true Highest level of school completed/degree received: Master's degree Smoking Status: Never smoker Do you use any of these nicotine containing products: None Second hand tobacco smoke exposure: No How often do you have a drink containing alcohol: never How often do you have six or more drinks on one occasion: Never AUDIT-C Alcohol total score: 0 Non-prescribed substance use: denies use Caffeine: Yes (Diet Pepsi, Daily) How often does anyone, including family, friends and others, physically hurt you : never How often does anyone, including family, friends and others, insult or talk down to you: never How often does anyone, including family, friends and others, threaten you with harm: never How often does anyone, including family, friends and others, scream or curse at you: never service: No Exam Const: Vital Signs, click to edit/add: Vital Signs - 24 hr 11/14/24 09:17 11/14/24 11:53 11/14/24 11:54 Temperature 96.7 F L Pulse Rate 75 73 Pulse Rate [Pulse Oximeter] 73 Respiratory Rate 18 Blood Pressure 110/82 Blood Pressure [Ri ght Forearm] 110/49 L Pulse Oximetry 96 97 98 Oxygen Delivery Me thod Room Air 11/14/24 12:00 11/14/24 12:01 Temperature Pulse Rate 74 76 Pulse Rate [Pulse Oximeter] Respiratory Rate Blood Pressure 108/54 L Blood Pressure [Ri ght Forearm] Pulse Oximetry 98 100 Oxygen Delivery Me thod This 79-year-old female is alert, interactive, no apparent distress. She looks like she does not feel well. Sclera clear, conjugate gaze, symmetrical facial function. Her speech certainly is normal right now, no dysarthria. Lungs are clear, good air entry, no wheezing or crackles. CV regular rate and rhythm, no murmur, normal S1-S2, no S3-S4. Abdomen is obese but soft, nondistended, she complains of feeling bloated when I palpate her abdomen, there is maybe some m ild right upper quadrant tenderness more so than the rest of the abdomen. Her feeling is a sense of bloating when I palpate. I feel no organomegaly or masses. Patient did ambulate in on her own. Documenting provider has reviewed patient's vital signs: yes Course Course ED Course: Patient has had a complex recent history with recent cerebrovascular disease seemingly stable today. She does complain of taste issues, did review with them that we certainly should check a COVID test. It could be side effect of medications certainly. We did discuss the importance of her being on cholesterol medicine, aspirin and Plavix for future stroke reduction. We discussed that she is high risk for subsequent strokes. No embolic source has been found and thus neurology recommended continuing aspirin and Plavix. With her CT findings, I do have concerns that this could be her gallbladder. Will initiate an IV, give her some IV fluids and Zofran, get appropriate labs. We will do a limited right upper quadrant ultrasound looking at her gallbladder. May need to consider repeat CT imaging based on labs and ultrasound findings. Reevaluation(s) Time of Reevaluation #1: 12:10 Reevaluation #1: Updated patient on her ultrasound findings. She is feeling better after the fluids and the Zofran. She states she cannot eat anything now. She believes she can drink, will allow her clears. She feels if she ate anything solid that she would just gag and throw it back up. Consultations Consultation #1: Have spoken with Dr. Zavala from general surgery. We are going to run this case by a Neurology. She maybe high risk for anesthesia, need to see if she could potentially come off her Plavix. She does not think we need to repeat CT imaging of her abdomen. I will touch base with her once I have spoken with Neurology at [facility]. Will update patient on this. Time: 12:08 Consultation #2: Spoke with Stroke Neurology Dr. Murray at [facility]. We reviewed this patient's case, he did review her records. He stated her stroke was in the left basal ganglia, there was a stenotic vessel prior to this area with probable cholesterol plaque that cause the embolic stroke. He would recommend that she stay on aspirin but the Plavix could be stopped if needed. Typically the Plavix would be given for 3 months. He stated the literature really supports benefit in the 1st couple weeks with the dual anti-platelet agent with Plavix. As far as surgery, it is dependent. Stroke patients in general are considered to be at risk for up to 8 months but the 1st 3 months by the most worrisome. They recommend not doing elective procedures for the 1st 3 months if possible. The risk benefit needs to be considered for each patient. If she does end up needing surgery, he would recommend that she go in well hydrated, attempt to not have hypotension or her blood pressure going too low as it is a stenotic vessel that caused the CVA. He did bring up the possibility of post CVA parkinsonism, this is a possibility of the taste issue/loss of taste for her. We need to rule out other etiologies first but could be a consideration for loss of taste or taste alteration. Time: 12:45 Consultation #3: Did review this patient with hospitalist Dr. Marlow. She will accept the patient. Did talk to Dr. Zavala after talking to the hospitalist. She agrees with hospitalization, is not planning on any surgery unless it is 100% definitive her gallbladder. I think there is the possibility that it could be other issues causing symptoms, possible multifactorial. Hospitalist can consult her if needed. Time: 13:05 Vital Signs Vital signs: Initial Vital Signs Temperature 96.7 F L 11/14/24 09:17 Temperature Source Temporal Artery Scan 11/14/24 09:17 Pulse Rate 73 11/14/24 09:17 Respiratory Rate 18 11/14/24 09:17 Blood Pressure 110/49 L 11/14/24 09:17 Blood Pressure Mean 69 L 11/14/24 09:17 Pulse Oximetry 96 11/14/24 09:17 Oxygen Delivery Method Room Air 11/14/24 09:17 Vital Signs Temperature 96.7 F L 11/14/24 09:17 Pulse Rate 73 11/14/24 09:17 Respiratory Rate 18 11/14/24 09:17 Blood Pressure 110/49 L 11/14/24 09:17 Pulse Oximetry 96 11/14/24 09:17 Oxygen Delivery Method Room Air 11/14/24 09:17 Temperature 96.7 F L 11/14/24 09:17 Pulse Rate 76 11/14/24 12:01 Respiratory Rate 18 11/14/24 09:17 Blood Pressure 108/54 L 11/14/24 12:01 Pulse Oximetry 100 11/14/24 12:01 Oxygen Delivery Method Room Air 11/14/24 09:17 Medications Administered Medications: Discontinued Medications Generic Name Dose Route Start Last Admin Trade Name Freq PRN Reason Stop Dose Admin Sodium Chloride 1,000 mls @ 500 mls/hr 11/14/24 09:41 11/14/24 11:12 0.9 % Sodium Chloride 1000 Ml IV 11/14/24 11:40 500 mls/hr .Q2H EDEL Administration Ondansetron HCl 4 mg 11/14/24 09:39 11/14/24 10:09 Ondansetron 2 Mg/Ml Inj IVP 11/14/24 09:40 4 mg ONCE ONE Administration Medical Decision Making Lab Data Lab results reviewed: Yes I reviewed the patient's lab results Labs: Lab Results 11/14/24 11/14/24 Range/Units 10:00 10:05 WBC 8.93 (4.50-11.00) K/uL RBC 3.69 L (4.00-5.20) m/uL Hgb 12.0 (12.0-16.0) gm/dL Hct 37.1 (33.0-51.0) % MCV 101 H (80-100) fL MCH 33 (26-34) pg MCHC 32 (32-36) gm/dL RDW Coeff of Arun 12.9 (11.5-15.5) % Plt Count 305 (140-440) K/uL Neut % (Auto) 70.2 (42.0-72.0) % Lymph % (Auto) 16.3 L (20-44) % King % (Auto) 11.6 H (0.0-11.0) % Eos % (Auto) 1.1 (0.0-7.0) % Baso % (Auto) 0.2 (0.0-3.0) % Neut # (Auto) 6.26 (1.7-7.0) K/uL Lymph # (Auto) 1.50 (0.90-2.90) K/uL King # (Auto) 1.00 H (0.00-0.90) K/UL Eos # (Auto) 0.10 (0.00-0.50) K/uL Baso # (Auto) 0.02 (0.00-0.30) K/uL Abs Immat Gran (auto) 0.05 (0.00-0.30) K/uL Imm/Tot Granulo (auto) 0.6 % Sodium 131 L (135-149) mmol/L Potassium 5.0 (3.6-5.1) mmol/L Chloride 100 (96-114) mmol/L Carbon Dioxide 24 (20-32) mmol/L Anion Gap 7 (7-15) mEq/L BUN 57 H (7-30) mg/dL Creatinine 1.5 (0.5-1.5) mg/dL Estimated Creat Clear 27.12 Estimated GFR 36 ml/min Glucose 188 H (60-115) mg/dL Lactate 1.5 (0.5-1.9) mmol/L Calcium 9.5 (8.4-10.6) mg/dL Total Bilirubin 0.3 (0.1-1.5) mg/dL Direct Bilirubin 0.2 (0.0-0.5) mg/dL AST 24 (12-35) U/L ALT 17 (4-35) U/L Alkaline Phosphatase 62 (40-150) U/L C-Reactive Protein 0.5 (0.5-1.0) mg/dL Total Protein 6.9 (6.0-8.3) g/dL Albumin 3.8 (3.3-5.0) g/dL Lipase 485 H (23-300) U/L TSH 0.120 L (0.270-4.200) uIU/mL Free T4 1.66 (0.70-1.85) ng/dL SARS-CoV-2 (PCR) Negative SARS-CoV-2 (Negative) Imaging Data US - abdomen: Attestation: I have reviewed the pertinent imaging results. Radiologist's impression: Patient: MICHAEL BA Facility:?[facility] Patient ID:?[id number] Site Patient ID:?[id number]. Site :?[id number] Study:?US-Abdomen GALLBLADDER-11/14/2024 11:33:33 AM Ordering Physician:Demetris Mejia Final Report: INDICATION: Right upper quadrant abdomen pain. TECHNIQUE: Ultrasound abdomen limited. Sonographic images of the right upper quadrant were obtained using melgar-scale and color Doppler images. COMPARISON: CT abdomen and pelvis 11/02/2024. FINDINGS: Gallbladder: Cholelithiasis. Normal wall thickness. No pericholecystic fluid. Negative sonographic Rivas`s sign Common bile duct: 5 mm. IMPRESSION: Cholelithiasis without evidence of cholecystitis. Dictated by Vicki Farah MD @ 11/14/2024 11:39:32 AM (Electronic Signature) Discharge Plan Discharge Clinical Impression: Taste sense altered Nausea & vomiting Qualifiers: Vomiting type: unspecified Qualified Code(s): R11.2 - Nausea with vomiting, unspecified Cholelithiasis Qualifiers: Cholelithiasis location: gallbladder Cholecystitis presence: without cholecystitis Biliary obstruction: without biliary obstruction Qualified Code(s): K80.20 - Calculus of gallbladder without cholecystitis without obstruction Prescriptions: No Action prednisone 20 mg tablet 20 mg PO BID ezetimibe [Zetia] 10 mg tablet 10 mg PO DAILY Qty: 90 3RF hydrocodone-acetaminophen 5-325 mg tablet 1 - 2 tab PO Q6-8H PRN (Reason: pain) Qty: 30 0RF furosemide [Lasix] 20 mg tablet 20 mg PO QAM Qty: 30 0RF lisinopril-hydrochlorothiazide 20-25 mg tablet 1 tab PO DAILY Qty: 90 3RF levothyroxine 137 mcg tablet 137 mcg PO DAILY amitriptyline 25 mg tablet 25 mg PO QPM metformin 1,000 mg tablet 1,000 mg PO BID omeprazole 20 mg capsule,delayed release(DR/EC) 20 mg PO QPM ergocalciferol (vitamin D2) 1,250 mcg (50,000 unit) capsule 1,250 mcg PO .every week naproxen 500 mg tablet 500 mg PO BID PRN (Reason: moderate pain) aspirin 81 mg tablet 81 mg PO DAILY Qty: 90 0RF clopidogrel 75 mg tablet 75 mg PO DAILY Qty: 30 2RF celecoxib [Celebrex] 200 mg capsule 200 mg PO DAILY Qty: 4 0RF Rx Instructions: Take once daily in the morning for neck sprain, 1st dose given in ED, next dose due 10/27 Follow Up/Referrals: Miki Ponce MD [Primary Care Provider, Internal Medicine]
[2024-11-14] MEDS: ONDANSETRON 2 MG/ML inj 4 MG IVP ×2 (10:09→13:54)
[2024-11-14 10:13] LABS: Lactate* 1.5 mmol/L (0.5-1.9)
[2024-11-14 10:17] LABS: Hematocrit 37.1 % (33.0-51.0); Hemoglobin* 12.0 gm/dL (12.0-16.0); Immature Granulocytes Abs Auto 0.05 K/uL (0.00-0.30); Immature Granulocytes Pct Auto 0.6 %; Mean Corpuscular HGB Conc 32 gm/dL (32-36); Mean Corpuscular Hemoglobin 33 pg (26-34); Mean Corpuscular Volume 101 fL (80-100); RDW Coefficient of Variation % 12.9 % (11.5-15.5); Red Blood Count 3.69 m/uL (4.00-5.20); White Blood Count* 8.93 K/uL (4.50-11.00)
[2024-11-14 10:21] LABS: Lymphocytes Absolute Auto 1.50 K/uL (0.90-2.90); Slide Review Reflex No
[2024-11-14 10:35] LABS: Albumin* 3.8 g/dL (3.3-5.0); Chloride* 100 mmol/L (96-114); Sodium* 131 mmol/L (135-149)
[2024-11-14 10:36] LABS: Potassium* 5.0 mmol/L (3.6-5.1)
[2024-11-14 10:38] LABS: Blood Urea Nitrogen* 57 mg/dL (7-30); Creatinine* 1.5 mg/dL (0.5-1.5); Est. Creatinine Clearance* 27.12; Estimated Glomerular Filt Rate 36 ml/min
[2024-11-14 10:39] LABS: Alanine Aminotransferase* 17 U/L (4-35); Alkaline Phosphatase* 62 U/L (40-150); Anion Gap 7 mEq/L (7-15); Aspartate Amino Transferase* 24 U/L (12-35); Bilirubin Direct* 0.2 mg/dL (0.0-0.5); Bilirubin Total* 0.3 mg/dL (0.1-1.5); Calcium* 9.5 mg/dL (8.4-10.6); Carbon Dioxide* 24 mmol/L (20-32); Glucose* 188 mg/dL (60-115); Total Protein* 6.9 g/dL (6.0-8.3)
[2024-11-14 10:54] LABS: SARS PCR* Negative SARS-CoV-2 (Negative)
[2024-11-14 11:15] LABS: TSH With Reflex to FT4* 0.120 uIU/mL (0.270-4.200)
[2024-11-14 12:39] LABS: Free T4 Free Thyroxine* 1.66 ng/dL (0.70-1.85)
--- NOTE | 2024-11-14 17:02 | CRLHL7_ITS ---
For Patients: As a result of the Cures Act, medical imaging exams and procedure reports are released immediately into your electronic medical record. You may view this report before your referring provider. If you have questions, please contact your health care provider. INDICATION: Recent stroke, new ageusia. TECHNIQUE: Multisequence multiplanar MRI of the brain without the use of intravenous contrast. COMPARISON: MRI brain dated 10/05/2024. FINDINGS: Maturation of the now late subacute infarct within left basal ganglia and frontal centrum semiovale. Stable chronic cerebellar lacunar type infarcts. Similar scattered foci of T2 prolongation elsewhere within the supratentorial white matter typical of mild chronic small vessel ischemic changes. No evidence of recent or remote intracranial hemorrhage. The ventricles are unchanged in size. There is similar mild diffuse parenchymal volume loss. Flow voids of the larger intracranial arteries are preserved. Normal calvarial bone marrow signal intensity. Symmetric globes. Mild mucosal thickening within the ethmoid sinuses. IMPRESSION: 1. No acute intracranial abnormality. 2. Maturation of the now late subacute infarct within the left basal ganglia. 3. No evidence of recent or remote intracranial hemorrhage. 4. Similar mild diffuse parenchymal volume loss and chronic small vessel ischemic changes. 5. Stable chronic cerebellar lacunar type infarcts. Dictated by Hao Petersen MD @ 11/14/2024 6:52:11 PM (Electronically Signed)
[2024-11-14] MEDS: OMEPRAZOLE 20 MG CAPSULE DR PO (17:20)
[2024-11-14] MEDS: SODIUM CHLORIDE 0.9 % (FLUSH) 10 ML SYRINGE 5 ML IVF ×2 (17:20→21:06)
--- NOTE | 2024-11-14 18:41 | PC.NURSE ---
end of shift pt has been pleasant. she is drinking water and eating yogurt no nausea. she is weak and tired. no pain. SL was painful. we are placing a new SL. she is alert x4. she is able to make her needs known.
--- NOTE | 2024-11-14 20:20 | P.IMHP_ITS ---
Assessment and Plan Assessment and plan (1) Taste sense altered: Problem comment: - parageusia/hypogeusia/ageusia differential diagnosis: The timing, sudden onset, chronology of her symptom suggests this is a complication of her recent stroke. She has been on an TIFFANY-inhibitor for number of years, and this too has been associated with this symptom. No recent URI including SARS-CoV-2 negative status. Zinc deficiency, vitamin B12 deficiency, and iron deficiency consent times cause this symptom. No obvious oral or glossal lesions. While aging can sometimes cause this, her symptom onset was quite sudden making this an unlikely cause for her. - recommended we continue with her proton pump inhibitor use. Check Helicobacter pylori antigen. Also obtain an esophagogastroduodenoscopy. She is agreeable. Status: Acute (2) Cholelithiasis: Problem comment: - asymptomatic and likely not causative of her current presentation Status: Acute (3) Cerebrovascular accident: Problem comment: -two transient 1-2 minute episodes of garbled speech, 1 on 09/30/2024 and 1 on 10/02/2024, with complete resolution of symptoms -MRI of the brain on 10/02/2024: 1. Small acute to early subacute infarctions within the left guerin radiata, left basal ganglia, left cerebellar hemisphere. 2. Chronic lacunar infarctions right cerebellar hemisphere. 3. Mild chronic microvascular ischemic changes and diffuse cerebral volume loss. -has not been on aspirin previously. Started on aspirin 325 mg once daily on 10/02/2024 per recommendation from stroke neurologist -history of intolerability to atorvastatin and rosuvastatin. As such starting patient on a low dose of rosuvastatin 5 mg once daily at this time. Check lipid panel on the morning of 10/03/2024 -allow for permissive hypertension for now -continue with glucose management efforts. Recheck hemoglobin A1c in the morning of 10/03/2024. QID ACHS glucose monitoring while in hospital with sliding scale insulin. -telemetry while in hospital. -echocardiogram while in hospital -physical therapy, occupational therapy, and speech pathology to assess -dietitian consultation -stroke Neurology to reassess on 10/03/2024 10/03/2024: Day of discharge No events overnight reported, no new or worsening symptoms Hemoglobin A1c 6.6 Triglycerides 155, cholesterol 197, LDL 134, HDL 32 TSH 0.114 Speech and OT have completed their assessments, no recommendations for ongoing outpatient therapies. Patient declined PT assessment. Echocardiogram 10/02/2024 Final Impressions: 1. Normal left ventricular size, normal wall thickness, normal global systolic function, calculated EF of 72 %. 2. Right ventricular cavity size is mildly enlarged, global systolic RV function is normal. 3. 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 4. The mitral valve is normal, mild to moderate mitral regurgitation. 5. Tricuspid valve is normal, moderate-severe tricuspid regurgitation. 6. Elevated estimated pulmonary pressures by tricuspid regurgitation velocity and right atrial pressure (45 mmHg plus RAP). Comparison There are no prior studies on this patient for comparison purposes. Following reassessment, discussed with tele neurology, Dr. Soares. Recommending continuing aspirin 81 mg daily, recommending Zio patch on discharge, continue on rosuvastatin as no significant adverse reactions overnight (continue to monitor), weight management (consider decreasing amitriptyline or other medication alternative), normotensive blood pressure management, glucose zuri gement in setting of diabetes mellitus. Outpatient follow-up in stroke clinic 1 month - MRI of brain without contrast 11/14/2024: Maturation of the now late subacute infarct within left basal ganglia and frontal centrum semiovale. Stable chronic cerebellar lacunar type infarcts. Similar scattered foci of T2 prolongation elsewhere within the supratentorial white matter typical of mild chronic small vessel ischemic changes. No evidence of recent or remote intracranial hemorrhage. The ventricles are unchanged in size. There is similar mild diffuse parenchymal volume loss. Flow voids of the larger intracranial arteries are preserved. Normal calvarial bone marrow signal intensity. Symmetric globes. Mild mucosal thickening within the ethmoid sinuses. IMPRESSION: 1. No acute intracranial abnormality. 2. Maturation of the now late subacute infarct within the left basal ganglia. 3. No evidence of recent or remote intracranial hemorrhage. 4. Similar mild diffuse parenchymal volume loss and chronic small vessel ischemic changes. 5. Stable chronic cerebellar lacunar type infarcts. Status: Acute Plan 1. Reviewed impression, plans, recommendations with patient and her 2. Answered their questions to their satisfaction. 3. Continue with supportive efforts 4. They are agreeable with above stated plans and recommendations Total Time Spent Total Time Spent: 75 minutes Hospitalist- H&P: HPI History of Present Illness Date Seen: 11/14/24 Chief complaint: Nasua, no sleep or eating- low BP Narrative: Angela Lamar is a 79 year old woman presents to the emergency department complaining of not feeling well since leaving the hospital on 10/03/2024 when she was diagnosed with new stroke in left basal ganglia. She describes how she has not had her sense of taste since that last hospitalization. In association with this she is not interested in eating much. Has subsided on almond granola bars, [place] yogurt, Wallace instant breakfast vanilla flavor, sips of water and Sprite soda. When she tries to eat other foods she gets more nausea and develops retching. Denies zaid vomiting per se. Denies dysphagia or odynophagia. Denies hematemesis, melena. Acknowledges intermittent epigastric abdominal discomfort. Denies dysuria, urgency, frequenc y, hematuria. Denies diarrhea or constipation. Denies cardiopulmonary symptoms. For the most part her speech has been normal since discharge from the hospital. Notes that at time she has to slow down her speech in order to articulate what she wants to. No other focal motor neurologic deficits. Review of Systems Status of ROS: Reports: 6 or more systems reviewed and unremarkable except as noted in History and below Narrative: In her hospital stay from 10/02/2024 through 10/03/2024 she was started on the following new medications: ezetemibe (Zetia) 10 mg daily, Hydrocodone 5/325 acetaminophen 1 tab p.o. q.h.s., Furosemide 20 mg once daily, Aspirin 81 mg daily, Clopidogrel 75 mg p.o. once daily. With patient not feeling well she did stop amitriptyline 25 mg at bedtime which she has taken for years. Also she has stopped taking her metformin which she was taking a 1000 mg p.o. twice daily. She is no longer taking celecoxib or naproxen or any other nonsteroidal anti-inflammatory medication. Medical Decision Making Medical Decision Making Code Status: Full resuscitation in event of cardiopulmonary demise, but does not wish to be kept alive in a persistent vegetative state Has patient completed a Health Care Directive: No During This Stay, Who Would You Like To Make Decisions For You In The Event You Are Unable To Make Them For Yourself?: , Rojas, . [facility] Medical History Cerebrovascular accident ?I63.9 - Cerebral infarction, unspecified (ICD-10) Edema ?R60.9 - Edema, unspecified (ICD-10) Hyperlipidemia ?E78.5 - Hyperlipidemia, unspecified (ICD-10) Major 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 (12/22/15) ?F32.5 - Major depressive disorder, single episode, in full remission (ICD- 10) Poor balance (05/20/23) ?R26.89 - Other abnormalities of gait and mobility (ICD-10) Spinal stenosis of lumbar region with neurogenic claudication (03/20/15) ?M48.062 - Spinal stenosis, lumbar region with neurogenic claudication (ICD- 10) Lumbar radiculopathy ?M54.16 - Radiculopathy, lumbar region (ICD-10) Lumbosacral radiculitis ?M54.17 - Radiculopathy, lumbosacral region (ICD-10) Lumbar spondylosis ?M47.816 - Spondylosis without myelopathy or radiculopathy, lumbar region (ICD-10) Obesity (BMI 30-39.9) ?E66.9 - Obesity, unspecified (ICD-10) Chronic kidney disease, stage 3a ?N18.31 - Chronic kidney disease, stage 3a (ICD-10) Insomnia ?G47.00 - Insomnia, unspecified (ICD-10) Acquired hypothyroidism ?E03.9 - Hypothyroidism, unspecified (ICD-10) 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 - Stenosis of larynx (ICD-10) Diabetes mellitus type 2, controlled ?E11.9 - Type 2 diabetes mellitus without complications (ICD-10) Vitamin D deficiency ?E55.9 - Vitamin D deficiency, unspecified (ICD-10) Essential hypertension ?I10 - Essential (primary) hypertension (ICD-10) Surgical History S/P total hip arthroplasty (09/21/21) ?Z96.649 - Presence of unspecified artificial hip joint (ICD-10) Social History What is your current living situation?: I presently have a place to live Problems where you live: no known problems Problems where you live details: NA In the past 12 months, utilities in danger of being shut off: no In past 12 months, lack of transportation kept you from medical appts, meetings, work, or getting things needed for daily living: no In the past 12 mos, have been you worried that your food would run out before you had money to buy more?: never true In the past 12 mos, the food you bought just didn't last and you didn't have money to buy more?: never true Highest level of school completed/degree received: Master's degree Smoking Status: Never smoker Do you use any of these nicotine containing products: None Second hand tobacco smoke exposure: No How often do you have a drink containing alcohol: never How often do you have six or more drinks on one occasion: Never AUDIT-C Alcohol total score: 0 Non-prescribed substance use: denies use Caffeine: Yes (Diet Pepsi, Daily) How often does anyone, including family, friends and others, physically hurt you : never How often does anyone, including family, friends and others, insult or talk down to you: never How often does anyone, including family, friends and others, threaten you with harm: never How often does anyone, including family, friends and others, scream or curse at you: never service: No Meds Home Medications and Allergies Home Medications ?Medication ?Instructions ?Recorded ?Confirmed ?Type amitriptyline 25 mg tablet 25 mg PO QPM 01/31/2411/14 History ergocalciferol (vitamin D2) 1,250 1,250 mcg PO .every week 01/31/24 11/14/24 History mcg (50,000 unit) capsule levothyroxine 137 mcg tablet 137 mcg PO DAILY 01/31/24 11/14/24 History metformin 1,000 mg tablet 1,000 mg PO BID 01/31/2410/03 History omeprazole 20 mg capsule,delayed 20 mg PO QPM 01/31/24 11/14/24 History release aspirin 81 mg tablet 81 mg PO DAILY #90 tabs 09/1011/14/24 Rx clopidogrel 75 mg tablet 75 mg PO DAILY #30 tabs 09/1011/14/24 Rx ezetimibe 10 mg tablet (Zetia) 10 mg PO DAILY #90 tabs 10/23/24 11/14/24 Rx hydrocodone 5 mg-acetaminophen 325 1 - 2 tab PO Q6-8H PRN pain #30 10/23/24 11/14/24 Rx mg tablet tabs furosemide 20 mg tablet (Lasix) 20 mg PO QAM #30 tabs 11/07/24 11/14/24 Rx lisinopril 20 1 tab PO DAILY #90 tabs 10/1111/14/24 Rx mg-hydrochlorothiazide 25 mg tablet Allergies Allergy/AdvReac Type Severity Reaction Status Date / Time atorvastatin Allergy Unknown Verified 11/07/24 15:46 niacin Allergy Unknown Verified 11/07/24 15:46 piroxicam Allergy Unknown Verified 11/07/24 15:46 pravastatin Allergy Unknown Verified 11/07/24 15:46 rosuvastatin Allergy Unknown Verified 11/07/24 15:46 simvastatin Allergy Unknown Verified 11/07/24 15:46 doxycycline Allergy Verified 11/07/24 15:46 erythromycin base Allergy Verified 11/07/24 15:46 morphine Allergy Verified 11/07/24 15:46 Exam Narrative: Exam Narrative: I examined the patient in her hospital room. Appears comfortable in no acute distress. Laying in her bed with head of bed elevated at 60? and legs outstretched in front of her. Vision and hearing are adequate. Friendly, articulate, cooperative. Alert and oriented x3. Conjugate gaze. Cranial nerves 3-12 grossly normal. No icterus or jaundice. No petechiae or rashes. Neck is supple. No head neck lymphadenopathy. Lungs are clear to auscultation without wheezing, rhonchi, rales. Chest wall excursions are full. No CVA tenderness. Heart tones with regular rhythm, normal S1-S2, without gallop or rub. Grade 2/6 systolic murmur. PMI not laterally displaced. Abdomen with active bowel sounds, soft, nontender. Minimal subjective discomfort to palpation in epigastrium. No organomegaly or masses. Extremities without edema. No focal motor neurologic deficits. Const: Vital Signs, click to edit/add: Vital Signs - 24 hr 11/14/24 09:17 11/14/24 11:53 11/14/24 11:54 Temperature 96.7 F L Pulse Rate 75 73 Pulse Rate [Left R adial] Pulse Rate [Pulse Oximeter] 73 Respiratory Rate 18 Blood Pressure 110/82 Blood Pressure [Le ft Arm] Blood Pressure [Ri ght Forearm] 110/49 L Pulse Oximetry 96 97 98 Oxygen Delivery Me thod Room Air 11/14/24 12:00 11/14/24 12:01 11/14/24 13:50 Temperature Pulse Rate 74 76 73 Pulse Rate [Left R adial] Pulse Rate [Pulse Oximeter] Respiratory Rate Blood Pressure 108/54 L Blood Pressure [Le ft Arm] Blood Pressure [Ri ght Forearm] Pulse Oximetry 98 100 99 Oxygen Delivery Me thod 11/14/24 13:51 11/14/24 15:00 11/14/24 15:10 Temperature 97.6 F Pulse Rate 74 Pulse Rate [Left R adial] 82 Pulse Rate [Pulse Oximeter] Respiratory Rate 18 18 Blood Pressure 119/42 L Blood Pressure [Le ft Arm] 139/60 Blood Pressure [Ri ght Forearm] Pulse Oximetry 99 99 99 Oxygen Delivery Me thod Room Air Room Air Hospitalist - H&P: Result Labs Labs: Short CBC 11/14/24 Range/Units 10:00 WBC 8.93 (4.50-11.00) K/uL Hgb 12.0 (12.0-16.0) gm/dL Hct 37.1 (33.0-51.0) % Plt Count 305 (140-440) K/uL BMP 11/14/24 10:00 Sodium 131 L Potassium 5.0 Chloride 100 Carbon Dioxide 24 BUN 57 H Creatinine 1.5 Glucose 188 H Calcium 9.5 Liver Function 11/14/24 Range/Units 10:00 Total Bilirubin 0.3 (0.1-1.5) mg/dL Direct Bilirubin 0.2 (0.0-0.5) mg/dL AST 24 (12-35) U/L ALT 17 (4-35) U/L Alkaline Phosphatase 62 (40-150) U/L Albumin 3.8 (3.3-5.0) g/dL Imaging MR Brain: Attestation: I have reviewed the pertinent imaging results. Radiologist's impression: FINDINGS: Maturation of the now late subacute infarct within left basal ganglia and frontal centrum semiovale. Stable chronic cerebellar lacunar type infarcts. Similar scattered foci of T2 prolongation elsewhere within the supratentorial white matter typical of mild chronic small vessel ischemic changes. No evidence of recent or remote intracranial hemorrhage. The ventricles are unchanged in size. There is similar mild diffuse parenchymal volume loss. Flow voids of the larger intracranial arteries are preserved. Normal calvarial bone marrow signal intensity. Symmetric globes. Mild mucosal thickening within the ethmoid sinuses.
[2024-11-14] MEDS: AMITRIPTYLINE 25 MG TABLET PO (21:06)
[2024-11-14] MEDS: ACETAMINOPHEN 325 MG TABLET 650 MG PO (21:10)
[2024-11-14] MEDS: MELATONIN 3 MG TABLET PO (22:53)
[2024-11-14] MEDS: HYDROCODONE-ACETAMIN 5-325 MG 1 TAB PO (23:19)
[2024-11-15] MEDS: ACETAMINOPHEN 325 MG TABLET 650 MG PO (02:45)
[2024-11-15 02:48] VITALS: BP 140/62; PULSE 70; RESP 16; TEMP 36.5; O2SAT 97
[2024-11-15] MEDS: HYDROCODONE-ACETAMIN 5-325 MG 1 TAB PO (05:23)
[2024-11-15 06:41] LABS: Hematocrit 33.5 % (33.0-51.0); Hemoglobin* 10.8 gm/dL (12.0-16.0); Mean Corpuscular HGB Conc 32 gm/dL (32-36); Mean Corpuscular Hemoglobin 33 pg (26-34); Mean Corpuscular Volume 102 fL (80-100); Red Blood Count 3.30 m/uL (4.00-5.20); White Blood Count* 7.32 K/uL (4.50-11.00)
[2024-11-15] MEDS: LEVOTHYROXINE 25 MCG TABLET PO (06:41)
[2024-11-15] MEDS: LEVOTHYROXINE 112 MCG TABLET PO (06:41)
[2024-11-15 06:42] VITALS: BP 137/57; BP 142/65; BP 145/68; PULSE 64; PULSE 74; PULSE 86
[2024-11-15 06:45] LABS: Slide Review Reflex No
[2024-11-15 06:53] LABS: Chloride* 105 mmol/L (96-114)
[2024-11-15 06:54] LABS: Potassium* 5.0 mmol/L (3.6-5.1); Sodium* 134 mmol/L (135-149)
[2024-11-15 06:56] LABS: Blood Urea Nitrogen* 35 mg/dL (7-30); Creatinine* 1.0 mg/dL (0.5-1.5); Est. Creatinine Clearance* 40.68; Estimated Glomerular Filt Rate 58 ml/min
[2024-11-15 06:57] LABS: Anion Gap 5 mEq/L (7-15); Calcium* 9.3 mg/dL (8.4-10.6); Carbon Dioxide* 24 mmol/L (20-32); Glucose* 114 mg/dL (60-115)
--- NOTE | 2024-11-15 07:10 | PC.NURSE ---
End of shift: Pt pleasant, alert and oriented. VSS. 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 NPO at 0000 for imaging. FR 1999. Denies nausea. Pt in bed, appears to be resting, call light within reach.?
[2024-11-15 07:46] LABS: Vitamin B12* 434 pg/mL (243-894)
[2024-11-15 08:02] LABS: Iron* 44 ug/dL (37-170)
[2024-11-15 08:07] VITALS: BP 135/52; PULSE 70; PULSE 73; PULSE 82; RESP 16; TEMP 36.6; O2SAT 97; O2SAT 98
[2024-11-15 08:11] LABS: Percent Iron Saturation 15 % (20-50); Total Iron Binding Capacity 294 ug/dL (265-497)
--- NOTE | 2024-11-15 09:56 | CRLHL7_ITS ---
For Patients: As a result of the Cures Act, medical imaging exams and procedure reports are released immediately into your electronic medical record. You may view this report before your referring provider. If you have questions, please contact your health care provider. Indication: Constipation Technique: Abdomen 1 view Comparison: None Findings/Impression: Bowel: No definite evidence of obstruction. Minimal stool within the colon. Soft tissues: Calcified granuloma left lung. Bones: Status post bilateral hip replacements. Dictated by Osmani Tello MD @ 11/15/2024 10:33:54 AM (Electronically Signed)
[2024-11-15] MEDS: SODIUM CHLORIDE 0.9 % (FLUSH) 10 ML SYRINGE 5 ML IVF (09:58)
--- NOTE | 2024-11-15 10:46 | P.ANES_ITS ---
Anesthesia Charges Start Date/Time Anesthesia Start Date: 11/15/24 Anesthesia Start Time: 11:12 Stop Date/Time Anesthesia Stop Date: 11/15/24 Anesthesia Stop Time: 11:24 Summary Extremes of Age - Over 70 or under 1: MDA Coding CPT Codes CPT Codes: ANES UPR GI NDSC PX NOS - 80960 ([id number]) P4 - PT W/SEV SYS DIS THREAT LIFE, QK - BAR PORTER 2-4 CNCRNT ANES PROC, QX - SUPERINTENDENT PLANT SVC W/ MD MED DIRECTION Additional Codes: Summary - Extremes of Age - Over 70 or under 1: MDA ([id number])
--- NOTE | 2024-11-15 10:46 | W.ANESCHARGE ---
Anesthesia Charges Start Date/Time Anesthesia Start Date: 11/15/24 Anesthesia Start Time: 11:12 Stop Date/Time Anesthesia Stop Date: 11/15/24 Anesthesia Stop Time: 11:24 Summary Extremes of Age - Over 70 or under 1: MDA Coding CPT Codes CPT Codes: ANES UPR GI NDSC PX NOS - 83896 ([id number]) P4 - PT W/SEV SYS DIS THREAT LIFE, QK - RATTLING MACHINE TENDER 2-4 CNCRNT ANES PROC, QX - COMMERCIAL PROJECT MANAGER SVC W/ MD MED DIRECTION Additional Codes: Summary - Extremes of Age - Over 70 or under 1: MDA ([id number])
--- NOTE | 2024-11-15 11:28 | P.ANES_ITS ---
Anesthesia Charges Start Date/Time Anesthesia Start Date: 11/15/24 Anesthesia Start Time: 11:12 Stop Date/Time Anesthesia Stop Date: 11/15/24 Anesthesia Stop Time: 11:24 Summary Extremes of Age - Over 70 or under 1: GAS CUTTING MACHINE OPERATOR Coding CPT Codes CPT Codes: ANES UPR GI NDSC PX NOS - 93388 ([id number]) P4 - PT W/SEV SYS DIS THREAT LIFE, QK - TEMPERATURE LOGGING OPERATOR 2-4 CNCRNT ANES PROC, QX - GAS CUTTING MACHINE OPERATOR SVC W/ MD MED DIRECTION Additional Codes: Summary - Extremes of Age - Over 70 or under 1: GAS CUTTING MACHINE OPERATOR ([id number])
--- NOTE | 2024-11-15 11:28 | W.ANESCHARGE ---
Anesthesia Charges Start Date/Time Anesthesia Start Date: 11/15/24 Anesthesia Start Time: 11:12 Stop Date/Time Anesthesia Stop Date: 11/15/24 Anesthesia Stop Time: 11:24 Summary Extremes of Age - Over 70 or under 1: DIRECT SALES CONSULTANT Coding CPT Codes CPT Codes: ANES UPR GI NDSC PX NOS - 52828 ([id number]) P4 - PT W/SEV SYS DIS THREAT LIFE, QK - SANDING MACHINE OPERATOR 2-4 CNCRNT ANES PROC, QX - DIRECT SALES CONSULTANT SVC W/ MD MED DIRECTION Additional Codes: Summary - Extremes of Age - Over 70 or under 1: DIRECT SALES CONSULTANT ([id number])
[2024-11-15] MEDS: EZETIMIBE 10 MG TABLET PO (11:59)
[2024-11-15] MEDS: ASPIRIN 81 MG TABLET EC PO (11:59)
[2024-11-15] MEDS: FUROSEMIDE 20 MG TABLET PO ×2 (11:59)
--- NOTE | 2024-11-15 12:00 | PM.DS1 ---
DS: Providers Provider Date Seen: 11/15/24 Date of admission: 11/14/24 14:33 Primary care physician: Miki Ponce MD Admitting Clinician: Rebeca Marlow MD Consults: 11/14/24 17:02 Consult to Nutrition [CONS] Routine Comment: Reason for consult:: Miscellaneous Comment: ageusia/hypogeusia since stroke 1 month ago with decreased oral intake Attending Physician on discharge: Saumya Ward [facility] Date of Discharge: 11/15/24 DS: Diagnosis Discharge Diagnosis (1) Taste sense altered: Status: Acute Problem details: - parageusia/hypogeusia/ageusia differential diagnosis: The timing, sudden onset, chronology of her symptom suggests this is a complication of her recent stroke. She has been on an TIFFAYN-inhibitor for number of years, and this too has been associated with this symptom. No recent URI including SARS-CoV-2 negative status. Zinc deficiency, vitamin B12 deficiency, and iron deficiency consent times cause this symptom. No obvious oral or glossal lesions. While aging can sometimes cause this, her symptom onset was quite sudden making this an unlikely cause for her. - recommended we continue with her proton pump inhibitor use. Check Helicobacter pylori antigen. Also obtain an esophagogastroduodenoscopy. She is agreeable. Discussed with patient, taste perversion can occur following a stroke as well as can be a delayed adverse effect from medications such as omeprazole and Plavix (compounding effect). It may take time for this to improve. Could consider therapy/rehabilitation if this is available. Consider dietary consult - given decreased appetite, interest in food, weight loss. Understands she needs to remain on the medications as prescribed until appropriately discontinued. EGD today performed by Dr. Ponce without acute findings. Bx pending. Discussed with her PCP, Dr. Ponce, who will follow-up on this as well as discussed there may be a component of depression to consider as well. PCP will follow up on this. Consider outpatient GI consult. (2) Cholelithiasis: Status: Acute Problem details: - asymptomatic and likely not causative of her current presentation Patient reports this is chronic and has been present for years. Denies any episodes of colic. Abdominal pain/bloating most recently experienced has resolved. (3) Cerebrovascular accident: Status: Acute Problem details: -two transient 1-2 minute episodes of garbled speech, 1 on 09/30/2024 and 1 on 10/02/2024, with complete resolution of symptoms -MRI of the brain on 10/02/2024: 1. Small acute to early subacute infarctions within the left guerin radiata, left basal ganglia, left cerebellar hemisphere. 2. Chronic lacunar infarctions right cerebellar hemisphere. 3. Mild chronic microvascular ischemic changes and diffuse cerebral volume loss. -has not been on aspirin previously. Started on aspirin 325 mg once daily on 10/02/2024 per recommendation from stroke neurologist -history of intolerability to atorvastatin and rosuvastatin. As such starting patient on a low dose of rosuvastatin 5 mg once daily at this time. Check lipid panel on the morning of 10/03/2024 -allow for permissive hypertension for now -continue with glucose management efforts. Recheck hemoglobin A1c in the morning of 10/03/2024. QID ACHS glucose monitoring while in hospital with sliding scale insulin. -telemetry while in hospital. -echocardiogram while in hospital -physical therapy, occupational therapy, and speech pathology to assess -dietitian consultation -stroke Neurology to reassess on 10/03/2024 10/03/2024: Day of discharge No events overnight reported, no new or worsening symptoms Hemoglobin A1c 6.6 Triglycerides 155, cholesterol 197, LDL 134, HDL 32 TSH 0.114 Speech and OT have completed their assessments, no recommendations for ongoing outpatient therapies. Patient declined PT assessment. Echocardiogram 10/02/2024 Final Impressions: 1. Normal left ventricular size, normal wall thickness, normal global systolic function, calculated EF of 72 %. 2. Right ventricular cavity size is mildly enlarged, global systolic RV function is normal. 3. 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 4. The mitral valve is normal, mild to moderate mitral regurgitation. 5. Tricuspid valve is normal, moderate-severe tricuspid regurgitation. 6. Elevated estimated pulmonary pressures by tricuspid regurgitation velocity and right atrial pressure (45 mmHg plus RAP). Comparison There are no prior studies on this patient for comparison purposes. Following reassessment, discussed with tele neurology, Dr. Soares. Recommending continuing aspirin 81 mg daily, recommending Zio patch on discharge, continue on rosuvastatin as no significant adverse reactions overnight (continue to monitor), weight management (consider decreasing amitriptyline or other medication alternative), normotensive blood pressure management, glucose management in setting of diabetes mellitus. Outpatient follow-up in stroke clinic 1 month - MRI of brain without contrast 11/14/2024: Maturation of the now late subacute infarct within left basal ganglia and frontal centrum semiovale. Stable chronic cerebellar lacunar type infarcts. Similar scattered foci of T2 prolongation elsewhere within the supratentorial white matter typical of mild chronic small vessel ischemic changes. No evidence of recent or remote intracranial hemorrhage. The ventricles are unchanged in size. There is similar mild diffuse parenchymal volume loss. Flow voids of the larger intracranial arteries are preserved. Normal calvarial bone marrow signal intensity. Symmetric globes. Mild mucosal thickening within the ethmoid sinuses. IMPRESSION: 1. No acute intracranial abnormality. 2. Maturation of the now late subacute infarct within the left basal ganglia. 3. No evidence of recent or remote intracranial hemorrhage. 4. Similar mild diffuse parenchymal volume loss and chronic small vessel ischemic changes. 5. Stable chronic cerebellar lacunar type infarcts. (4) Bloated abdomen: Status: Resolved Problem details: Per patient, this was the reason for her presentation to the ED on 11/14/2024. This has resolved prior to discharge. She tells me she was seen by her PCP the end of October for constipation which was relieved with Mag citrate. She was started on MiraLax 4 days ago prior to onset of abdominal pain and bloating. Last BM was Tuesday. Likely the cause of her bloat and pain was this laxative. An abdominal x-ray this morning shows only minimal stool within the colon. Patient was advised to discontinue the MiraLax and is instead discharged with docusate sodium/stool softener. Encouraged daily bowel regimen, appropriate fluid intake, daily exercise. Discussed with PCP. DS: Summary Hospital Course Hospital Course: Course of care and details as noted above. As above, in regard to taste perversion, consider rehab/therapy if available, dietary consult. PCP will explore possible depression component. EGD biopsies pending. Consider GI consult. In regard to abdominal bloating, stop MiraLax. Encourage daily bowel regimen, stool softener. Remainder of chronic medical comorbidities were monitored and managed with home medications. Status at Discharge Overall status at discharge: patient is back to baseline Time Spent with Patient Time attestation: Total time spent providing and/or coordinating discharge services: Time spent: Greater than 30 minutes Exam Narrative: Exam Narrative: PHYSICAL EXAM General: Pleasant, conversant, NAD Cardiovascular: RRR Pulmonary: No dyspnea Neurological: Alert, answering questions appropriately Skin: Warm, dry. Const: Vital Signs, click to edit/add: Vital Signs - 24 hr 11/14/24 12:01 11/14/24 13:50 11/14/24 13:51 Temperature Pulse Rate 76 73 74 Pulse Rate [Left R adial] Pulse Rate [Pulse Oximeter] Pulse Rate [orthos tatic lying] Pulse Rate [orthos tatic sitting] Pulse Rate [orthos tatic standing] Respiratory Rate Blood Pressure 108/54 L 119/42 L Blood Pressure [Le ft Arm] Blood Pressure [or thostatic lying] Blood Pressure [or thostatic sitting] Blood Pressure [or thostatic standing ] Pulse Oximetry 100 99 99 Oxygen Delivery Me thod 11/14/24 15:00 11/14/24 15:10 11/14/24 20:00 Temperature 97.6 F 98.0 F Pulse Rate Pulse Rate [Left R adial] 82 Pulse Rate [Pulse Oximeter] 74 Pulse Rate [orthos tatic lying] Pulse Rate [orthos tatic sitting] Pulse Rate [orthos tatic standing] Respiratory Rate 18 18 16 Blood Pressure Blood Pressure [Le ft Arm] 139/60 136/55 L Blood Pressure [or thostatic lying] Blood Pressure [or thostatic sitting] Blood Pressure [or thostatic standing ] Pulse Oximetry 99 99 97 [facility] Room [facility] Room Air 11/14/24 22:45 11/14/24 23:00 11/14/24 23:00 Temperature 98.2 F Pulse Rate Pulse Rate [Left R adial] Pulse Rate [Pulse Oximeter] 70 70 Pulse Rate [orthos tatic lying] Pulse Rate [orthos tatic sitting] Pulse Rate [orthos tatic standing] Respiratory Rate 16 16 Blood Pressure Blood Pressure [Le ft Arm] 137/62 Blood Pressure [or thostatic lying] Blood Pressure [or thostatic sitting] Blood Pressure [or thostatic standing ] Pulse Oximetry 94 94 [facility] Room Air 11/15/24 02:48 11/15/24 06:42 11/15/24 08:07 Temperature 97.7 F Pulse Rate Pulse Rate [Left R adial] Pulse Rate [Pulse Oximeter] 70 Pulse Rate [orthos tatic lying] 64 Pulse Rate [orthos tatic sitting] 74 Pulse Rate [orthos tatic standing] 86 Respiratory Rate 16 16 Blood Pressure Blood Pressure [Le ft Arm] 140/62 H Blood Pressure [or thostatic lying] 137/57 L Blood Pressure [or thostatic sitting] 142/65 H Blood Pressure [or thostatic standing ] 145/68 H Pulse Oximetry 97 97 Oxygen Delivery Me thod Room Air Room Air 11/15/24 08:07 11/15/24 08:07 Temperature 97.9 F Pulse Rate Pulse Rate [Left R adial] 82 Pulse Rate [Pulse Oximeter] 70 73 Pulse Rate [orthos tatic lying] Pulse Rate [orthos tatic sitting] Pulse Rate [orthos tatic standing] Respiratory Rate 16 16 Blood Pressure Blood Pressure [Le ft Arm] 135/52 L Blood Pressure [or thostatic lying] Blood Pressure [or thostatic sitting] Blood Pressure [or thostatic standing ] Pulse Oximetry 98 Oxygen Delivery Me thod Room Air DS: Data Data Completed and Pending Labs on day of discharge: Labs from last 24 hours 11/15/24 11/14/24 06:19 10:00 WBC 7.32 RBC 3.30 L Hgb 10.8 L Hct 33.5 MCV 102 H MCH 33 MCHC 32 Plt Count 265 Sodium 134 L Potassium 5.0 Chloride 105 Carbon Dioxide 24 Anion Gap 5 L BUN 35 H Creatinine 1.0 Estimated Creat Clear 40.68 Estimated GFR 58 Glucose 114 Calcium 9.3 Phosphorus 3.5 Magnesium 2.0 Iron 44 TIBC 294 % Saturation 15 L C-Reactive Protein 1.6 H Lipase 298 Vitamin B12 434 Free T4 1.66 Plasma Zinc Pending Imaging Abdomen x-ray: Attestation: I have reviewed the pertinent imaging results. Radiologist's impression: Findings/Impression: Bowel: No definite evidence of obstruction. Minimal stool within the colon. Soft tissues: Calcified granuloma left lung. Bones: Status post bilateral hip replacements. MR Brain: Attestation: I have reviewed the pertinent imaging results. Radiologist's impression: Maturation of the now late subacute infarct within left basal ganglia and frontal centrum semiovale. Stable chronic cerebellar lacunar type infarcts. Similar scattered foci of T2 prolongation elsewhere within the supratentorial white matter typical of mild chronic small vessel ischemic changes. No evidence of recent or remote intracranial hemorrhage. The ventricles are unchanged in size. There is similar mild diffuse parenchymal volume loss. Flow voids of the larger intracranial arteries are preserved. Normal calvarial bone marrow signal intensity. Symmetric globes. Mild mucosal thickening within the ethmoid sinuses. IMPRESSION: 1. No acute intracranial abnormality. 2. Maturation of the now late subacute infarct within the left basal ganglia. 3. No evidence of recent or remote intracranial hemorrhage. 4. Similar mild diffuse parenchymal volume loss and chronic small vessel ischemic changes. 5. Stable chronic cerebellar lacunar type infarcts. Gallbladder ultrasound: Attestation: I have reviewed the pertinent imaging results. Radiologist's impression: Gallbladder: Cholelithiasis. Normal wall thickness. No pericholecystic fluid. Negative sonographic Rivas`s sign Common bile duct: 5 mm. IMPRESSION: Cholelithiasis without evidence of cholecystitis. Discharge Plan Discharge Disposition: Home, Self-Care Date of Admission: 11/14/24 14:33 Attending Provider on Discharge: Saumya Ward Primary Care Provider: Miki Ponce Condition: Improved Anticipated Discharge Date/Time: 11/15/24 11:45 Discharge Medications: New docusate sodium 50 mg capsule 50 mg PO BID Qty: 60 0RF Continued ezetimibe [Zetia] 10 mg tablet 10 mg PO DAILY Qty: 90 3RF hydrocodone-acetaminophen 5-325 mg tablet 1 - 2 tab PO Q6-8H PRN (Reason: pain) Qty: 30 0RF furosemide [Lasix] 20 mg tablet 20 mg PO QAM Qty: 30 0RF lisinopril-hydrochlorothiazide 20-25 mg tablet 1 tab PO DAILY Qty: 90 3RF levothyroxine 137 mcg tablet 137 mcg PO DAILY amitriptyline 25 mg tablet 25 mg PO QPM metformin 1,000 mg tablet 1,000 mg PO BID omeprazole 20 mg capsule,delayed release(DR/EC) 20 mg PO QPM ergocalciferol (vitamin D2) 1,250 mcg (50,000 unit) capsule 1,250 mcg PO .every week aspirin 81 mg tablet 81 mg PO DAILY Qty: 90 0RF clopidogrel 75 mg tablet 75 mg PO DAILY Qty: 30 2RF Discharge Orders: Discharge Order (Routine); Ordered 11/15/24 Ordered By: Saumya Ward Patient Education: Docusate (Into the rectum) Additional Instructions: Studies have shown that having a stroke can affect the way you taste and smell. This may improve over time or with rehabilitation. Also, both omeprazole and Plavix can cause a taste perversion. Studies have also shown that once Plavix is appropriately discontinued, this side effect may resolve. Your EGD did not show any acute findings. Biopsies were taken. You will follow-up with Dr. Ponce for these results. Continue to explore new foods which may be enjoyable to eat. Consider smaller more frequent meals as well. Discontinue taking MiraLax, which is a laxative. Instead, you will be discharged with a stool softener. This may lessen the bloat and discomfort. Continue to drink plenty of fluids and exercise (even small, frequent walks) daily. Dr. Ponce may consider a GI consult for you as well. Activity Level: No Restrictions and Activity as Tolerated Discharge Diet: Regular Follow Up Appointments: Miki Ponce MD [Primary Care Provider, Internal Medicine] - 11/21/24 12:45 pm Referral Note: [facility] for follow-up. Forms: [employer] Info Instructions Discharge Comments: Follow-up with Dr. Ponce next week as previously scheduled.
--- NOTE | 2024-11-15 12:17 | NUTR.NU ---
RDN with MD consult for ageusia/hypogeusia since stroke ~1 month ago and decreased oral intakes. Patient admitted with taste sense altered. Medical history includes, but not limited to cholelithiasis and CVA. RDN visited with patient in room today. Patient reports a decreased appetite for ~1 month and notes consuming almond granola bars, Sinhala yogurt, [place] Instant Breakfast vanilla flavor, water, and Sprite. Per glass blowing instructor, patient consumed 75% at dinner yesterday. Patient was NPO for breakfast today and ordered lunch right before visit. RDN provided nutrition tips for taste changes. Patient was accepting of education and verbalized understanding. Patient declined further education for decreased appetite at this time. RDN contact information was provided and patient was encouraged to call with questions. Current weight 215lbs, height 5ft 4in, and BMI 37.0 kg/m2. Weight history: 11/07/24 215lbs, 10/02/24 228lbs. Weight change likely related to fluid status and intentional per patient report. Patient is currently on Lasix. Patient reports no weight concerns at this time. RDN will continue to follow weight trends during hospitalization. Plan is for discharge home today. RDN will continue to follow prn.
[2024-11-16 13:02] LABS: Zinc, Serum/Plasma 69.3 ug/dL (60.0-120.0)
== END 2024-11-15 13:52 | disposition home or self-care (01) ==
LOC: ED 09:54 → MEDSURG 14:33
PROVIDERS: Internal Medicine; Admitting Provider Student in an Organized Health Care Education/Training Program; Emergency Provider Family Medicine; PCP Internal Medicine; Visit Provider Student in an Organized Health Care Education/Training Program
DX: R43.2 Parageusia (principal); K80.20 Calculus of gallbladder without cholecystitis without obstruction; Z86.73 Personal history of transient ischemic attack (TIA), and cerebral infarction without residual deficits
CPT/HCPCS: 00731; 36415; 43239; 70551; 74018; 76705; 80048; 80053; 82248; 82607; 83540; 83550; 83605; 83690; 83735; 84100; 84439; 84443; 84630; 85025; 85027; 86140; 87338; 87635; 88305; 96374; 96376; 99100; 99285; A9270; G0378; J2405; J2704; J7030

== ENCOUNTER 2024-11-29 15:13 | Outpatient (CLI) | payer MEDICARE, OTHER, SELFPAY | END 2024-11-29 15:14 | disposition home or self-care (01) | LOC: NFLDREF 15:14 | PROVIDERS: PCP Internal Medicine; Visit Provider Internal Medicine | DX: R60.0 Localized edema (principal) | CPT/HCPCS: 80048 ==

== ENCOUNTER 2024-12-03 04:54 | Emergency (ER) | payer MEDICARE, OTHER, SELFPAY ==
--- OUTSIDE RECORDS SUMMARY | 2024-12-03 04:57 | XMS_ITS | Encounter Summary ---
Author Organization [place] Address [address] [place] [id number] Care Team Providers Care Litigation Manager Name Role Phone Herb Herman MD Primary Care Provider Herb Herman MD Unavailable Stan Barnes MD Unavailable [phone] Trent Qureshi MD Unavailable [phone] Sammy Villa MD Unavailable [phone] Encounter Details Date Type Department Care Team (Late st Contact Info) Description 06/27/2023 [facility] Medical Advice [address] [id number] Soraya Hutchinson CMA Social History [...] often do you attend [facility] or rastafari services? 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 file documented as of this encounter Plan of Treatment Not on file documented as of this encounter Visit Diagnoses Not on filedocumented in this encounter Additional Health Concerns Assessment Noted Time PHQ-9 Depression Total Score: 0 05/02/19 24 10:52 AM STAFF RN documented as of this encounter Care Teams Litigation Manager Relationship Specialty [place] [address] [place] [address] PCP - General Family Medicine 12/24/20 [place] [address] [place] [address] Assigned PCP 01/04/21 Stan Barnes MD [address] [place] [address] Assigned Surgical Provider 08/30/21 08/31/23 Trent Qureshi MD [facility] [address] [id number] Orthopaedic Surgery 09/16/21 Sammy Villa MD [address] [place] [address] [address] [place], [place] [id number] Assigned Neuroscience Provider 10/01/24 documented as of this encounter
--- OUTSIDE RECORDS SUMMARY | 2024-12-03 04:57 | XMS_ITS | Encounter Summary ---
Author Organization [place] Address [address] [place] [address]. [place] [address] Care Team Providers Care Office Admin Name Role Phone Herb Herman MD Primary Care Provider [phone] Herb Herman MD Unavailable Trent Qureshi MD Unavailable [phone] Sammy Villa MD Unavailable Encounter Details Date Type Department Care Team (Late st Contact Info) Description 10/24/2024 [facility] Medical Advice [facility] [address], [address] [place] [id number] Ana Larsen, IRENE Social History Tobacco [...] How often do you attend chur or tenriism services? More than 4 times per year [...] Answer Date Recorded PHQ-2 Score 6 10/08/2024 [facility] [place] of Occupat ional Health - Occupational Stress [...] AM CDT Legal Sex Female 3:11 AM CHIP MUCKER Gender Identity Female 01/16/2019 8:38 AM CDT Sexual Orientation Choose not to disclose 2021 11:32 AM [employer] Occupation Industry Job Start Date Job End [...] documented as of this encounter Care Teams Office Admin Relationship Specialty [place] [address] [place] [address] PCP - General Family Medicine 12/24/20 [place] [address] [place] [address] Assigned PCP 01/04/21 Trent Qureshi MD [facility] [address] [place] [id number] Orthopaedic Surgery 09/16/21 Sammy Villa MD [address] [place] [id number] Assigned Neuroscience Provider 10/01/24 documented as of this encounter
--- OUTSIDE RECORDS SUMMARY | 2024-12-03 04:57 | XMS_ITS | Clinical Summary ---
Author Organization [facility] Address [address] [place] [address] Care Team Providers Care Field Irrigation Worker Name Role Phone Herb Herman MD Primary Care Provider Herb Herman MD Unavailable Trent Qureshi MD Unavailable [phone] [facility] MD Unavailable Allergies Active Allergy Reactions [...] 3 05/02/19 25 Active vitamin D2 (ERGOCALCIFEROL) 06353 units (1250 mcg) capsuleIndications :Type 2 diabetes [...] (01/02/2016): Seen incidentally on CT done at [place] Major 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 6 Spinal [...] to review. 03/01/2011 Full code 03/08/2011 [facility] 12/15/2010 09/26/2023 Overview (07/17/2012): X DX V65.8 REPLACED WITH 73342 HEALTH DETENTION (07/17/2012) Major 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 11/05/2004 05/03/2023 Encounters Date Type Department Care Team Description 10/24/2024 MyC Medical Advice [facility] Neurology [address], [address] [place] [phone] Ana Larsen RN 10/08/2024 3:30 PM CDT Office Visit [address] [phone] Herb Herman MD TIA (transient ischemic attack) (Primary Dx); Chronic kidney disease, stage 3a (H); Hyperlipidemia LDL goal <100; Essential hypertension; Adjustment disorder with anxious mood 10/08/2024 Travel 09/26/2024 10:15 AM CDT Radiology Injection Office Visit [facility] Pain Management [address] [place] [address] Sammy Villa MD Burton, Annie L, MD Lumbar radiculopathy (Primary Dx); Lumbar stenosis with neurogenic claudication 09/26/2024 Travel 09/23/[address] [phone] Herb Herman MD Medication Refill 09/20/2024 Telephone [facility] Pain Management [address] [place] [phone] Pain Management Program, [facility] Procedure (L3-4 or L4-5 Interlaminar ARTHUR) 09/19/2024 2:20 PM CDT Office Visit [facility] Neurosurgery Clinic [address] [place] [phone] Douglas Hernandez MD Helland, Logan C, MD Lumbar stenosis with neurogenic claudication (Primary Dx); Chronic bilateral low back pain with bilateral sciatica 09/19/2024 MyC Medical Advice [facility] Neurology Clinics [facility] [address] [facility], [address] [place] [address] Ana Larsen RN 09/19/2024 Travel 09/19/2024 PRE VISIT [facility] Neurosurgery [facility] [place] [address] [facility] [address] [place] [address] Sammy Villa MD Previsit 09/11/2024 Transcribe Orders GENERIC EXTERNAL DATA DEPARTMENT Douglas Hernandez MD Low back pain (Primary Dx) 09/10/2024 12:05 AM CDT Ancillary Procedure [facility] External Imaging [address] [place] [phone] Non-Fv Credentialed Provider, Radiology 09/10/2024 Ancillary Procedure [facility] External Imaging [address] [place] [phone] Non-Fv Credentialed Provider, Radiology 09/10/2024 Medical Correspondence [facility] Information Management [address] [facility] [address] [place] [address] Scan, Non-Provider from Last 3 Months Immunizations [...] Brother 2 Alive Father Mother Paternal Grandfather [place] Sister Alive lashanda knee replace ments Son [...] week 06/08/2021 How often do you attend [facility] or yazidi services? More than 4 times [...] Answer Date Recorded PHQ-2 Score 6 10/08/2024 [facility] [...] AM CDT Legal Sex Female 3:11 AM REGISTERED MIDWIFE Gender Identity Female 01/16/2019 8:38 AM CDT Sexual Orientation Choose not to disclose 2021 11:32 AM REGISTERED MIDWIFE Occupation Industry Job Start Date Job End [...] (Cologuard) Discontinued Medical Devices Implanted Type Area Double Bass Player Device Identifier Shelf Expiration Date Model / Serial / Lot Imp Scr Zim 6.5x30mm Acet Cup Self Tap [id number] - [id number] Implanted:Qty : 1 on 09/21/2021 by Anderson George MD at [facility] Metallic Hardware/Anc hor Right: Hip [employer] 06/19/203168-9411-358- 30 / / [id number] Imp Scr Zim 6.5x30mm Acet Cup Self Tap [id number] - [id number] Implanted:Qty : 1 on 12/21/2021 by Anderson George MD at [facility] Metallic Hardware/Anc hor Left: Hip [employer] 06/19/203191-4562-598- 30 / / [id number] Imp Shell Biom G7 Acetab Pps Billy Hole 52mm Sz E [id number] - [id number] Implanted:Qty : 1 on 09/21/2021 by Andesron George MD at [facility] Total Joint Component/In sert Right: Hip [employer] 07/10/[id number] / / [id number] Liner Actb G7 E 36mm Lngvt Hip Strl Lum Lf [id number] - [id number] Implanted:Qty : 1 on 09/21/2021 by Anderson George MD at [facility] Total Joint Component/In sert Right: Hip [employer] 12/16/[id number] / / [id number] Imp Stem Femoral Biom Echo Std Offset [id number] - [id number] Implanted:Qty : 1 on 09/21/2021 by Anderson George MD at [facility] Total Joint Component/In sert Right: Hip [employer] 01/16/2031 [id number] / / [id number] Head Fem -3mm Ofst 36mm Hip Actb Dusty Ty 1 Blx D [id number] - [id number] Implanted:Qty : 1 on 09/21/2021 by Anderson George MD at [facility] Total Joint Component/In sert Right: Hip [employer] 06/23/2031 650-0660 / / [id number] Imp Shell Biom G7 Acetab Pps Billy Hole 52mm Sz E [id number] - [id number] Implanted:Qty : 1 on 12/21/2021 by Anderson George MD at [facility] Total Joint Component/In sert Left: Hip [employer] 10/30/2031 [id number] / / [id number] Imp Stem Femoral Biom Echo Std Offset [id number] - [id number] Implanted:Qty : 1 on 12/21/2021 by Anderson George MD at [facility] Total Joint Component/In sert Left: Hip [employer] 08/25/2031 [id number] / / [id number] Liner Actb G7 E 36mm Lngvt Hip Strl Lum Lf [id number] - [id number] Implanted:Qty : 1 on 12/21/2021 by Anderson George MD at [facility] Total Joint Component/In sert Left: Hip [employer] 08/30/[id number] / / [id number] Head Fem -3mm Ofst 36mm Hip Actb Dusty Ty 1 Blx D [id number] - [id number] Implanted:Qty : 1 on 12/21/2021 by Anderson George MD at [facility] Total Joint Component/In sert Left: Hip [employer] 06/30/2031 650-0660 / / [id number] Procedures Procedure Name Priority Date/Time Associated Diagnosis [...] FREE T4 REFLEX Add-On 05/02/2024 11:07 AM REGISTERED MIDWIFE Acquired hypothyroidism HEMOGLOBIN A1C Routine 05/02/2024 11:07 AM REGISTERED MIDWIFE Type 2 diabetes mellitus with diabetic neuropathy, without long-term current use of insulin (H) ALBUMIN AND CREATININE WITH RATIO RANDOM URINE QUANTITATIVE Routine 08/01/2023 9:56 AM [...] C FOOT EXAM Routine 04/27/2013 10:15 AM REGISTERED MIDWIFE Type 2 diabetes, HbA1C goal < 7% [...] from the original result were not included. [facility] - [...] the procedure. Diagnosis: Lumbar spondylosis; Lumbar radiculitis/radiculopathy Environmental Engineering Manager: Daniel Otto MD Anesthesia: none Indications: Angela [...] OTTO MD Pain Management Daniel Otto MD [facility] PAIN MANAGEMENT ORDERABLES Final Result [...] with free T4 reflex (05/02/2024 11:07 AM REGISTERED MIDWIFE) Pathologist [facility] TSH 1.54 0.30 - 4.20 uIU/mL 05/03/2024 11:22 AM REGISTERED MIDWIFE [facility] Blood BLOOD SPECIMEN / Unknown Venipuncture / Unknown 05/02/2024 11:07 AM REGISTERED MIDWIFE 05/02/2024 11:07 AM REGISTERED MIDWIFE Herb Herman MD LAB - BLOOD ORDERABLES Final Res ult Performing Organization Address City/[facility]/ZIP Co de Phone Number [facility] [address] [facility] [place] [address], [facility] * (ABNORMAL) HEMOGLOBIN A1C (05/02/2024 11:07 AM REGISTERED MIDWIFE) Pathologist [facility] Estimated Average Glucose 157(H) <117 mg/dL 05/02/2024 11:12 AM [facility] Hemoglobin A1C 7.1(H) 0.0 - 5.6 % 05/02/2024 11:12 AM [facility] Comment: Normal <5.7% Prediabetes 5.7-6.4% Diabetes 6.5% or higher Note: Adopted from ADA consensus guidelines. Blood BLOOD SPECIMEN / Unknown Venipuncture / Unknown 05/02/2024 11:07 AM REGISTERED MIDWIFE 05/02/2024 11:07 AM REGISTERED MIDWIFE Herb Herman MD LAB - BLOOD ORDERABLES Final Res ult LABORATORY [facility] Lab [address] [facility] Lab (no room number, 1st floor of clinic) [place] [address], [place] * Albumin Random Urine Quantitative with Creat [...] control, and institution of therapy with an dgbhguubojr-uyxepwarbt-csefnd (TIFFANY) inhibitor (if the patient can tolerate it). Urine MID-STREAM URINE SPECIMEN / Unknown Non-blood Collection / Unknown 08/01/2023 9:56 AM CDT 08/01/2023 9:56 AM CDT us Herb Herman MD LAB - URINE ORDERABLES Final Res ult [facility] LABORAT[facility] Core Lab [address] [facility], [address] [place] [address], [facility] * ALT (08/01/2023 9:51 AM CDT) ALT 12 0 - 50 U/L 08/01/2023 5:5 4 PM CDT [facility] Blood BLOOD SPECIMEN / Unknown Venipuncture / Unknown 08/01/2023 9:51 AM CDT 08/01/2023 9:51 AM CDT us Herb Herman MD LAB - BLOOD ORDERABLES Final Res ult [facility] LABORATORY [facility] [address] [facility], [address] [phone] * (ABNORMAL) Basic metabolic panel (Ca, Cl, CO2, Creat, Gluc, K, Na, BUN) (08/01/2023 9:51 AM CDT) [facility] Sodium 139 135 - 145 mmol/L [...] BLOOD ORDERABLES Final Res ult [facility] LABORATORY [facility] [facility] [address] [facility] [address], [address] [phone] * MA Screening [...] UM SPECIALTY CORE/PROT/ENDO UM Specialty Core/Prot/Endo [address] [facility] [address], Room [address] [place] [address] * Eye Exam - HIM Scan (03/11/2023) [...] 1:42 PM CDT 08/02/2022 1:46 PM CDT [facility] LABORATORY - 08/02/2022 5:36 PM CDT [...] BLOOD ORDERABLES Final Res ult [facility] LABORATORY [facility] [place] [facility] [address] [facility] [address], [address] [place] [address], [facility] [phone] * (ABNORMAL) Hemoglobin (01/18/2022 7:30 AM CDT) Hemoglobin 10.0(L) 11.7 - 15.7 g/dL 01/18/2022 7:52 AM CDT LABORATORY Blood STRUCTURE OF LEFT UPPER LIMB / Unknown Venipuncture / Unknown 01/18/2022 7:30 AM CDT 01/18/2022 7:43 AM CDT Anderson George MD LAB - BLOOD ORDERABL ES Final Result Performing Organization Address City/[facility]/ZIP Co de Phone Number LABORATORY [facility] Acute Care Lab [address] 1[address] floor, [address] [place] [address], [facility] [phone] * DX Hip/Pelvis/Spine w Lat Fraction Kath (07/21/2017 9:14 AM CDT) Anatomical Region Laterality Modality Dexa Bone Mineral Den sity Narrative 07/25/2017 10:30 AM CDT BONE DENSITOMETRY [address] [address] 07/21/2017 PATIENT: Angela Lamar CHART: [id number] : 1945 AGE: [age] year old SEX: female REFERRING PROVIDER: Daniel Plaza MD PROCEDURE: Bone density scanning was performed using DXA technology of the lumbar spine and hip. Scanning was performed on a Surfkitchen scanner. Reporting is completed in the form [...] to another DXA performed on the same LQ3 Pharmaceuticalsigy machine on 03/24 and 07/16. LATERAL VERTEBRAL ASSESSMENT Procedure: Vertebral fracture assessment was performed in the lateral decubitus position using a Access Closure Prodigy densitometer. Indications for VFA: none listed [...] established for newborns, infants, and children NR [facility] Blood specimen (specimen) 09/23/2016 6:20 PM CDT 09/23/2016 6:21 PM CDT us Daniel Plaza MD LAB - BLOOD ORDERABLES Final Result [facility] [address] [place] [address] * PHQ-9 DEPRESSION SCREENING ORDER (03/08/2011) us Provider Abstract OTHER Final Result from Last 3 Months or Most Recently Relevant to Health Maintenance Insurance MEDICARE MEDICA [employer] MEDICARE [employer] PRIME SOLUTION Advance Directives For more information, please contact: [phone] * Full Code (Latest Code Status on [...] patie nt/ legal decision maker Care Teams Field Irrigation Worker Relationship Specialty [place] [address] [place] [address] PCP - General Family Medicine 12/24/20 [place] [address] [place] [address] Assigned PCP 01/04/21 Trent Qureshi MD [facility] [address] [place] [address] [phone] Orthopaedic Surgery 09/16/21 Sammy Villa MD [address] [place] [address] [phone] Assigned Neuroscience Provider 10/01/24
--- OUTSIDE RECORDS SUMMARY | 2024-12-03 04:57 | XMS_ITS | Encounter Summary ---
Author Organization [facility] Address [address] [place] [address] Care Team Providers Care Pipe Smoking Machine Operator Name Role Phone Daniel Plaza MD Primary Care Provider [phone] Daniel Plaza MD Unavailable Daniel Plaza MD Unavailable Stan Barnes MD Unavailable [phone] Herb Herman MD Primary Care Provider Herb Herman MD Unavailable Stan Barnes MD Unavailable [phone] Trent Qureshi MD Unavailable [phone] Sammy Villa MD Unavailable [phone] Encounter Details Date Type Department Care Team (Late st Contact Info) Description 01/31/2006 [facility] Medical Advice [facility] [address] [address] Daniel Plaza MD [address] [phone] Social History Tobacco Use Types Packs/Day Years Used Date Smoking Tobacco: Never Alcohol Use Standard Drinks/Week Comments Yes 0 (1 standard drink = 0.6 oz pur e alcohol) social Comments No Sex and Gender Information Value Date Recorded Sex Assigned at Female 01/16/2019 8:38 AM CDT Legal Sex Female 3:11 AM FISH TENDER Gender Identity Female 01/16/2019 8:38 AM CDT Sexual Orientation Choose not to disclose 2021 11:32 AM FISH TENDER documented as of this encounter Plan of Treatment Not on file documented as of this encounter Visit Diagnoses Not on filedocumented in this encounter Care Teams Pipe Smoking Machine Operator Relationship Specialty Start Date End Date Daniel Plaza MD [address] [place] [phone] PCP - General 06/29/10 12/23/20 Daniel Plaza MD [address] [place] [phone] PCP - Assigned PCP 02/05/08 06/13/18 [place] [address] [place] [address] PCP - General Family Medicine 12/24/20 Daniel Plaza MD [address] [place] [phone] Assigned PCP 01/13/12 01/03/21 Stan Barnes MD [address] [place] [address] Assigned Surgical Provider 02/01/20 07/19/20 [place] [address] [place] [address] Assigned PCP 01/04/21 Stan Barnes MD [address] [place] [address] Assigned Surgical Provider 08/30/21 08/31/23 Trent Qureshi MD [facility] [address] [phone] Orthopaedic Surgery 09/16/21 Sammy Villa MD [address] [facility] [address] [place] [address] Assigned Neuroscience Provider 10/01/24 documented as of this encounter
--- OUTSIDE RECORDS SUMMARY | 2024-12-03 04:57 | XMS_ITS | Encounter Summary ---
Author Organization [facility] Address [address] [place] [address] Care Team Providers Care Laboratory Equipment Cleaner Name Role Phone Daniel Torres MD Primary Care Provider Daniel Torres MD Unavailable [phone] Daniel Torres MD Unavailable Stan Barnes MD Unavailable [phone] Herb Herman MD Primary Care Provider Herb Herman MD Unavailable Stan Barnes MD Unavailable [phone] Trent Qureshi MD Unavailable [phone] Sammy Villa MD Unavailable [phone] Encounter Details Date Type Department Care Team (Late st Contact Info) Description 09/08/2007 Rajeev Charles [facility] [address] [address] Daniel Torres MD [address] [phone] DJD ; HYPERLIPIDEMIA Social History Tobacco Use Types Packs/Day Years Used Date Smoking Tobacco: Never Alcohol Use Standard Drinks/Week Comments Yes 0 (1 standard drink = 0.6 oz pur e alcohol) social Comments No Sex and Gender Information Value Date Recorded Sex Assigned at Female 01/16/2019 8:38 AM CDT Legal Sex Female 3:11 AM VIOLIN TEACHER Gender Identity Female 01/16/2019 8:38 AM CDT Sexual Orientation Choose not to disclose 2021 11:32 AM VIOLIN TEACHER documented as of this encounter Miscellaneous Notes * Telephone Encounter - Vero Carr - 09/08/2007 2:01 PM [facility] Original authorizing provider: Savanna VILLALOBOS would like a refill of the following medications: SIMVASTATIN 80 MG OR TABS [DANIEL TORRES M.D.] CELEBREX 200 MG OR CAPS [DANIEL TORRES M.D.] Preferred pharmacy: [facility] Comment: I have [...] hyperlipidemia documented in this encounter Care Teams Laboratory Equipment Cleaner Relationship Specialty Start Date End Date Daniel Torres MD [address] [place] [phone] PCP - General 06/29/10 12/23/20 Daniel Torres MD [address] [place] [phone] PCP - Assigned PCP 02/05/08 06/13/18 [place] [address] [place] [address] PCP - General Family Medicine 12/24/20 Daniel Torres MD [address] [place] [address] Assigned PCP 01/13/12 01/03/21 Stan Barnes MD [address] [place] [address] Assigned Surgical Provider 02/01/20 07/19/20 [place] [address] [place] [address] Assigned PCP 01/04/21 Stan Barnes MD [address] [place] [address] Assigned Surgical Provider 08/30/21 08/31/23 Trent Qureshi MD [facility] [address] [phone] Orthopaedic Surgery 09/16/21 Sammy Villa MD 420 [facility] [address] [place] [address] Assigned Neuroscience Provider 10/01/24 documented as of this encounter
--- OUTSIDE RECORDS SUMMARY | 2024-12-03 04:57 | XMS_ITS | Encounter Summary ---
Author Organization [facility] Address [address] [place] [address] Care Team Providers Care Farmer Cash Grain Name Role Phone Herb Herman MD Primary Care Provider [phone] Herb Herman MD Unavailable Stan Barnes MD Unavailable [phone] Trent Qureshi MD Unavailable [phone] Sammy Villa MD Unavailable [phone] Encounter Details Date Type Department Care Team (Late st Contact Info) Description 07/16/2022 [facility] Medical Advice [address] [address] Diane Moreno RN Social History [...] Answer Date Recorded PHQ-2 Score 0 03/08/2022 [facility] ional [facility] - Occupational Stress Questionnaire Answer Date [...] AM CDT Legal Sex Female 3:11 AM OCCUPATIONAL THER Gender Identity Female 01/16/2019 8:38 AM CDT Sexual Orientation Choose not to disclose 2021 11:32 AM OCCUPATIONAL THER Occupation Industry Job Start Date Job End [...] Oral Patient not taking: Reported on 03/08/2022 iDane Moreno RN documented in this encounter Plan of Treatment Not on file documented as of this encounter Visit Diagnoses Not on filedocumented in this encounter Additional Health Concerns Assessment Noted Time PHQ-9 Depression Total Score: 0 03/08/20 22 10:26 AM OCCUPATIONAL THER documented as of this encounter Care Teams Farmer Cash Grain Relationship Specialty [place] [address] [place] [address] PCP - General Family Medicine 12/24/20 [place] [address] [place] [address] Assigned PCP 01/04/21 Stan Barnes MD [address] [place] [address] 889205 Assigned Surgical Provider 08/30/21 08/31/23 Trent Qureshi MD [facility] [address] [address] Orthopaedic Surgery 09/16/21 Sammy Villa MD 420 [facility] 96 [place], [place] [phone] Assigned Neuroscience Provider 10/01/24 documented as of this encounter
--- OUTSIDE RECORDS SUMMARY | 2024-12-03 04:57 | XMS_ITS | Encounter Summary ---
Author Organization [facility] Address [address] [place] [address] Care Team Providers Care Avionics Manager Name Role Phone Daniel Plaza MD Primary Care Provider Daniel Plaza MD Unavailable [phone] Daniel Plaza MD Unavailable [phone] Stan Barnes MD Unavailable Herb Herman MD Primary Care Provider Herb Herman MD Unavailable Stan Barnes MD Unavailable [phone] Trent Qureshi MD Unavailable [phone] Sammy Villa MD Unavailable [phone] Encounter Details Date Type Department Care Team (Late st Contact Info) Description 03/01/2011 [facility] [address] [address] Rodolfo Cline Social History Tobacco Use Types Packs/Day Years Used Date Smoking Tobacco: Never Alcohol Use Standard Drinks/Week Comments No 0 (1 standard drink = 0.6 oz pur e alcohol) Comments No Sex and Gender Information Value Date Recorded Sex Assigned at Female 01/16/2019 8:38 AM CDT Legal Sex Female 3:11 AM SUPERVISOR BENZENE REFINING Gender Identity Female 01/16/2019 8:38 AM CDT Sexual Orientation Choose not to disclose 2021 11:32 AM SUPERVISOR BENZENE REFINING documented as of this encounter Plan of Treatment Not on file documented as of this encounter Visit Diagnoses Not on filedocumented in this encounter Care Teams Avionics Manager Relationship Specialty Start Date End Date Daniel Plaza MD [address] [place] [phone] PCP - General 06/29/10 12/23/20 Daniel Plaza MD [address] [place] [phone] PCP - Assigned PCP 02/05/08 06/13/18 [place] [address] [place] [address] PCP - General Family Medicine 12/24/20 Daniel Plaza MD [address] [place] [phone] Assigned PCP 01/13/12 01/03/21 Stan Barnes MD [address] [place] [address] Assigned Surgical Provider 02/01/20 07/19/20 [place] [address] [place] [address] Assigned PCP 01/04/21 Stan Barnes MD [address] [place] [address] 200575 Assigned Surgical Provider 08/30/21 08/31/23 Trent Qureshi MD [facility] [address] [place] [address] [phone] Orthopaedic Surgery 09/16/21 Sammy Villa MD [address] [place] [address] [phone] Assigned Neuroscience Provider 10/01/24 documented as of this encounter
--- OUTSIDE RECORDS SUMMARY | 2024-12-03 04:57 | XMS_ITS | Encounter Summary ---
Author Organization [place] Address [facility]ly [facility] [place] [address] Care Team Providers Care Quality Assurance Supervisor Name Role Phone Herb Herman MD Primary Care Provider Herb Herman MD Unavailable Stan Barnes MD Unavailable [phone] Trent Qureshi MD Unavailable [phone] Sammy Villa MD Unavailable Encounter Details Date Type Department Care Team (Late st Contact Info) Description 06/29/2021 MyC Medical Advice [facility] [address] [place] [address] [place] [address] [place] [address] Social History Tobacco Use Types [...] CDT Legal Sex Female 3:11 AM DELIVERY PERSON Gender Identity Female 01/16/2019 8:38 AM CDT Sexual Orientation Choose not to disclose 2021 11:32 AM DELIVERY PERSON COVID-19 Exposure Response Date Recorded In the [...] Total Score: 0 06/10/19 22 7:01 AM DELIVERY PERSON documented as of this encounter Care Teams Quality Assurance Supervisor Relationship Specialty [place] [address] [place] [address] PCP - General Family Medicine 12/24/20 [place] [address] [place] [address] Assigned PCP 01/04/21 Stan Barnes MD [address] [place] [address] Assigned Surgical Provider 08/30/21 08/31/23 Trent Qureshi MD [facility] [address] 174425 Orthopaedic Surgery 09/16/21 Sammy Villa MD [address] [place] [address] 96 [place], [place] 2[address]75 Assigned Neuroscience Provider 10/01/24 documented as of this encounter
--- OUTSIDE RECORDS SUMMARY | 2024-12-03 04:57 | XMS_ITS | Encounter Summary ---
Author Organization [place] Address [address] [place] [address] Care Team Providers Care Vp Business Development Name Role Phone Daniel Plaza MD Primary Care Provider [phone] Daniel Plaza MD Unavailable Daniel Plaza MD Unavailable Stan Barnes MD Unavailable [phone] Herb Herman MD Primary Care Provider Herb Herman MD Unavailable Stan Barnes MD Unavailable [phone] Trent Qureshi MD Unavailable [phone] Sammy Villa MD Unavailable Reason for Visit * Reason Onset Date Comments Sinus Problem 04/06/2017 Encounter Details Date Type Department Care Team (Late st Contact Info) Description 04/06/2017 MyC Medical Advice [facility] [address] [address] Daniel Plaza MD [address] [address] Sinus Problem Social History Tobacco Use Types Packs/Day Years Used Date Smoking Tobacco: Never Smokeless Tobacco: Never Alcohol Use Standard Drinks/Week Comments No 0 (1 standard drink = 0.6 oz pur e alcohol) Comments No Sex and Gender Information Value Date Recorded Sex Assigned at Female 01/16/2019 8:38 AM CDT Legal Sex Female 3:11 AM KISS SETTER HAND Gender Identity Female 01/16/2019 8:38 AM CDT Sexual Orientation Choose not to disclose 2021 11:32 AM KISS SETTER HAND documented as of this encounter Plan of Treatment Not on file documented as of this encounter Visit Diagnoses Diagnosis Acute sinusitis with symptoms > 10 days- Primary Acute sinusitis, unspecified documented in this encounter Additional Health Concerns Assessment Noted Time PHQ-9 Depression Total Score: 0 12/23/19 16 7:14 AM CDT documented as of this encounter Care Teams Vp Business Development Relationship Specialty Start Date End Date Daniel Plaza MD [address] [place] [address] PCP - General 06/29/10 12/23/20 Daniel Plaza MD [address] [place] [phone] PCP - Assigned PCP 02/05/08 06/13/18 [place] [address] [place] [address] PCP - General Family Medicine 12/24/20 Daniel Plaza MD [address] [place] [phone] Assigned PCP 01/13/12 01/03/21 Stan Barnes MD 9 [place] [address] Assigned Surgical Provider 02/01/20 07/19/20 [place] [address] [place] [address] Assigned PCP 01/04/21 Stan Barnes MD [address] [place] [address] 592165 Assigned Surgical Provider 08/30/21 08/31/23 Trent Qureshi MD [facility] [address] [place] [address] [id number] Orthopaedic Surgery 09/16/21 Sammy Villa MD [address] [place] [address] [address] [place], [place] 105395 Assigned Neuroscience Provider 10/01/24 documented as of this encounter
--- OUTSIDE RECORDS SUMMARY | 2024-12-03 04:57 | XMS_ITS | Clinical Summary ---
Author Organization [facility] Address [address] [place] [address] Care Team Providers Care Attending Physician Name Role Phone Herb Herman MD Primary Care Provider [phone] Allergies Active Allergy Reactions Criticality Noted Date [...] (10/18/2024): Seen incidentally on CT done at [facility] 12/22/2015 Spinal stenosis of lumbar re [...] Description 10/18/2024 2:00 PM CDT Office Visit [facility] [address] [place] [address] Felisha Perez, HOSPITAL SOCIAL WORKER, DRAPERY SEWER HAND Speech disturbance, unspecified type (Primary Dx); [...] patient's age to complete this topic Insurance [employer] Care Teams Attending Physician Relationship Specialty [place] [address] [place] [address] PCP - General Family Medicine - 10/18/24
--- OUTSIDE RECORDS SUMMARY | 2024-12-03 04:57 | XMS_ITS | Encounter Summary ---
Author Organization [facility] Address [address] [place] [address] Care Team Providers Care Shredder/Granulator Operator Name Role Phone Herb Herman MD Primary Care Provider Herb Herman MD Unavailable Stan Barnes MD Unavailable + [phone] Trent Qureshi MD Unavailable [phone] Sammy Villa MD Unavailable [phone] Encounter Details Date Type Department Care Team (Late st Contact Info) Description 07/23/2021 MyC Medical Advice [address] [address] Brooke Barnes Social History Tobacco [...] PHQ-2 Score 0 06/24/2021 [facility] of Occupat ional [facility] - Occupational Stress Questionnaire Answer Date [...] AM CDT Legal Sex Female 3:11 AM TETRYL SCREEN OPERATOR Gender Identity Female 01/16/2019 8:38 AM CDT Sexual Orientation Choose not to disclose 2021 11:32 AM TETRYL SCREEN OPERATOR Occupation Industry Job Start Date Job [...] Total Score: 0 06/10/19 22 7:01 AM TETRYL SCREEN OPERATOR documented as of this encounter Care Teams Shredder/Granulator Operator Relationship Specialty [place] [address] [place] [address] PCP - General Family Medicine 12/24/20 [place] [address] [place] [address] Assigned PCP 01/04/21 Stan Barnes MD [address] [place] [address] Assigned Surgical Provider 08/30/21 08/31/23 Trent Qureshi MD [facility] [address] [place] [address] Orthopaedic Surgery 09/16/21 Sammy Villa MD [address] [place] [address] Assigned Neuroscience Provider 10/01/24 documented as of this encounter
--- OUTSIDE RECORDS SUMMARY | 2024-12-03 04:57 | XMS_ITS | Encounter Summary ---
Author Organization [place] Address [address] [place] [address] Care Team Providers Care Beaver Trapper Name Role Phone Daniel Plaza MD Primary Care Provider [phone] Daniel Plaza MD Unavailable [phone] Daniel Plaza MD Unavailable Stan Barnes MD Unavailable [phone] Herb Herman MD Primary Care Provider Herb Herman MD Unavailable Stan Barnes MD Unavailable [phone] Trent Qureshi MD Unavailable [phone] Sammy Villa MD Unavailable Encounter Details Date Type Department Care Team (Late st Contact Info) Description 11/21/2001 Abstract M [facility] [address] [address] Daniel Plaza MD [address] [phone] Social History Tobacco Use Types Packs/Day Years Used Date Smoking Tobacco: Never Assessed Comments No Sex and Gender Information Value Date Recorded Sex Assigned at Female 01/16/2019 8:38 AM CDT Legal Sex Female 3:11 AM GEAR SETTER Gender Identity Female 01/16/2019 8:38 AM CDT Sexual Orientation Choose not to disclose 2021 11:32 AM GEAR SETTER documented as of this encounter Plan of Treatment Not on file documented as of this encounter Visit Diagnoses Not on filedocumented in this encounter Care Teams Beaver Trapper Relationship Specialty Start Date End Date Daniel Plaza MD [address] [place] [phone] PCP - General 06/29/10 12/23/20 Daniel Plaza MD [address] [place] [phone] PCP - Assigned PCP 02/05/08 06/13/18 [place] [address] [place] [address] PCP - General Family Medicine 12/24/20 Daniel Plaza MD [address] [place] [address] Assigned PCP 01/13/12 01/03/21 Stan Barnes MD [address] [place] [address] Assigned Surgical Provider 02/01/20 07/19/20 [place] [address] [place] [address] Assigned PCP 01/04/21 Stan Barnes MD [address] [place] [address] Assigned Surgical Provider 08/30/21 08/31/23 Trent Qureshi MD [facility] [address] [place] [address] Orthopaedic Surgery 09/16/21 Sammy Villa MD [address] [place] [address] 96 [place] [address] Assigned Neuroscience Provider 10/01/24 documented as of this encounter
--- OUTSIDE RECORDS SUMMARY | 2024-12-03 04:57 | XMS_ITS | Encounter Summary ---
Author Organization [facility] Address [address] [place] [address] Care Team Providers Care Start Up Specialist Name Role Phone eHrb Herman MD Primary Care Provider [phone] Herb Herman MD Unavailable Stan Barnes MD Unavailable + [phone] Trent Qureshi MD Unavailable [phone] Sammy Villa MD Unavailable [phone] Encounter Details Date Type Department Care Team (Late st Contact Info) Description 04/18/2023 MyC Medical Advice [address] [address] Brooke Barnes Social History Tobacco [...] you attend [employer] [facility] [employer]? More than 4 times [...] Answer Date Recorded PHQ-2 Score 0 08/02/2022 [facility] of Occupat ional Health - [...] CDT Legal Sex Female 3:11 AM FINANCIAL OFFICER Gender Identity Female 01/16/2019 8:38 AM CDT Sexual Orientation Choose not to disclose 2021 11:32 AM FINANCIAL OFFICER Occupation Industry Job Start Date Job [...] documented as of this encounter Care Teams Start Up Specialist Relationship Specialty [place] [address] [place] [address] PCP - General Family Medicine 12/24/20 [place] [address] [place] [address] Assigned PCP 01/04/21 Stan Barnes MD [address] [place] [address] Assigned Surgical Provider 08/30/21 08/31/23 Trent Qureshi MD [facility] [address] [place] [address] Orthopaedic Surgery 09/16/21 Sammy Villa MD [address] [place] [address] Assigned Neuroscience Provider 10/01/24 documented as of this encounter
--- OUTSIDE RECORDS SUMMARY | 2024-12-03 04:57 | XMS_ITS | Encounter Summary ---
Author Organization [place] Address [address] [place] [address] Care Team Providers Care Winemaker Name Role Phone Daniel Plaza MD Primary Care Provider Daniel Plaza MD Unavailable [phone] Daniel Plaza MD Unavailable Stan Barnes MD Unavailable [phone] Herb Herman MD Primary Care Provider [phone] Herb Herman MD Unavailable Stan Barnes MD Unavailable [phone] Trent Stratton MD Unavailable [phone] Sammy Villa MD Unavailable Encounter Details Date Type Department Care Team (Late st Contact Info) Description 03/01/2003 [facility][1] [address] [address] Daniel Plaza MD [address] [phone] OP REPT (Primary Dx) Social History Tobacco Use Types Packs/Day Years Used Date Smoking Tobacco: Never Passive Smoke Exposure: Never Smokeless Tobacco: Never Alcohol Use Standard Drinks/Week Comments Never 0 (1 standard drink = 0.6 oz pur e alcohol) Comments No Sex and Gender Information Value Date Recorded Sex Assigned at Female 01/16/2019 8:38 AM CDT Legal Sex Female 3:11 AM TUBE BUILDING MACHINE OPERATOR Gender Identity Female 01/16/2019 8:38 AM CDT Sexual Orientation Choose not to disclose 2021 11:32 AM TUBE BUILDING MACHINE OPERATOR 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 file documented as of this encounter Progress Notes * 03/01/2003 11:59 PM [id number] 00:00 Operative Report-FSH TRENT STRATTON () [Entered: 00:00 Transcr iption ([facility])] 1st ASS'T: Alexander Gamble CST 2nd [...] STRATTON MD D: 06:24 MT: sb Document: [id number] [place], [place] Name: CEFERINOAMILCARMICHAEL OPERATIVE REPORT Page 2 of 2 LCN: 57 DSC: [place], [place] Name: WILLIAMPARIS MICHAEL Saba MR#: : Procedure Date: -98 1945 03/01/2003 Surgeon: TRENT STRATTON MD OPERATIVE REPORT Page 1 of 2 Electronically filed by Hu Porter 03/06/2003 10:43 AM documented in this encounter Plan of Treatment Not on file documented as of this encounter Visit Diagnoses Diagnosis OP REPT- Primary documented in this encounter Care Teams Winemaker Relationship Specialty Start Date End Date Daniel Plaza MD [address] [place] [phone] PCP - General 06/29/10 12/23/20 Daniel Plaza MD [address] [place] [phone] PCP - Assigned PCP 02/05/08 06/13/18 [place] [address] [place] [address] PCP - General Family Medicine 12/24/20 Daniel Plaza MD [address] [phone] Assigned PCP 01/13/12 01/03/21 Stan Barnes MD [address] [place] [address] Assigned Surgical Provider 02/01/20 07/19/20 [place] [address] [place] [address] Assigned PCP 01/04/21 Stan Barnes MD [address] [place] [address] Assigned Surgical Provider 08/30/21 08/31/23 Trent Stratton MD [facility] [address] [place] [address] Orthopaedic Surgery 09/16/21 Sammy Villa MD [address] [place] [address] Assigned Neuroscience Provider 10/01/24 documented as of this encounter
--- OUTSIDE RECORDS SUMMARY | 2024-12-03 04:57 | XMS_ITS | Encounter Summary ---
Author Organization [place] Address [facility]0 [facility] [place] [address] Care Team Providers Care Carding Utility Tender Name Role Phone Herb Herman MD Primary Care Provider Herb Herman MD Unavailable Stan Barnes MD Unavailable [phone] Trent Qureshi MD Unavailable [phone] Sammy Villa MD Unavailable [phone] Encounter Details Date Type Department Care Team (Late st Contact Info) Description 08/04/2021 MyC Medical Advice [facility] [address] [place] [address] [place] [address] [place] [address] Social History Tobacco Use Types [...] Answer Date Recorded PHQ-2 Score 0 06/24/2021 [facility] of Occupat ional Health - [...] AM CDT Legal Sex Female 3:11 AM COAL GASIFICATION TECHNICIAN Gender Identity Female 01/16/2019 8:38 AM CDT Sexual Orientation Choose not to disclose 2021 11:32 AM COAL GASIFICATION TECHNICIAN Occupation Industry Job Start Date Job [...] Total Score: 0 06/10/19 22 7:01 AM COAL GASIFICATION TECHNICIAN documented as of this encounter Care Teams Carding Utility Tender Relationship Specialty [place] [address] [place] [address] PCP - General Family Medicine 12/24/20 [place] [address] [place] [address] Assigned PCP 01/04/21 Stan Barnes MD [address] [place] [address] 201335 Assigned Surgical Provider 08/30/21 08/31/23 Trent Qureshi MD [facility] [address] [place] [address]225 Orthopaedic Surgery 09/16/21 Sammy Villa MD [address] [place] [address] 96 [place], [place] [address] Assigned Neuroscience Provider 10/01/24 documented as of this encounter
--- OUTSIDE RECORDS SUMMARY | 2024-12-03 04:57 | XMS_ITS | Encounter Summary ---
Author Organization [place] Address [address] [place] [address] Care Team Providers Care Superintendent Greens Name Role Phone Daniel Plaza MD Primary Care Provider Daniel Plaza MD Unavailable Daniel Plaza MD Unavailable Stan Barnes MD Unavailable [phone] Herb Herman MD Primary Care Provider Herb Herman MD Unavailable Stan Barnes MD Unavailable [phone] Trent Qureshi MD Unavailable [phone] Sammy Villa MD Unavailable Encounter Details Date Type Department Care Team (Late st Contact Info) Description 11/28/2001 Abstract M [facility] [address] [address] Daniel Plaza MD [address] [phone] Social History Tobacco Use Types Packs/Day Years Used Date Smoking Tobacco: Never Assessed Comments No Sex and Gender Information Value Date Recorded Sex Assigned at Female 01/16/2019 8:38 AM CDT Legal Sex Female 3:11 AM TOURIST ADVISER Gender Identity Female 01/16/2019 8:38 AM CDT Sexual Orientation Choose not to disclose 2021 11:32 AM TOURIST ADVISER documented as of this encounter Plan of Treatment Not on file documented as of this encounter Visit Diagnoses Not on filedocumented in this encounter Care Teams Superintendent Greens Relationship Specialty Start Date End Date Daniel Plaza MD [address] [place] [phone] PCP - General 06/29/10 12/23/20 Daniel Plaza MD [address] [place] [address] PCP - Assigned PCP 02/05/08 06/13/18 [place] [address] [place] [address] PCP - General Family Medicine 12/24/20 Daniel Plaza MD [address] [place] [phone] Assigned PCP 01/13/12 01/03/21 Stan Barnes MD [address] [place] [address] Assigned Surgical Provider 02/01/20 07/19/20 [place] [address] [place] [address] Assigned PCP 01/04/21 Stan Barnes [place] [address] [place] [address] Assigned Surgical Provider 08/30/21 08/31/23 Trent Qureshi MD [facility] [address] [place] [address] Orthopaedic Surgery 09/16/21 Sammy Villa MD [address] [place] [address] 96 [place] [address] Assigned Neuroscience Provider 10/01/24 documented as of this encounter
--- OUTSIDE RECORDS SUMMARY | 2024-12-03 04:57 | XMS_ITS | Encounter Summary ---
Author Organization [place] Address [facility] [place] [address] Care Team Providers Care Respiratory Therapy Manager Name Role Phone Herb Herman MD Primary Care Provider Herb Herman MD Unavailable Stan Barnes MD Unavailable [phone] Trent Qureshi MD Unavailable [phone] Sammy Villa MD Unavailable Reason for Visit * Reason Onset Date Comments MyChart Communication 01/06/2023 Encounter Details Date Type Department Care Team (Latest Contact Info) Description 01/06/2023 MyC Medical Advice [facility] [address] [place] [address] [place] [address] [place] [address] MyChart Communication Social History Tobacco [...] How often do you attend chur or hindu services? More than 4 times [...] Answer Date Recorded PHQ-2 Score 0 08/02/2022 [facility] of Occupat ional Health - Occupational Stress [...] in a fci (including now)? No 06/08/2021 Adolescent Education Answer Date Record ed Getting School Help Needed Not on file 01/04 Comments No Sex and Gender Information Value Date Recorded Sex Assigned at Female 01/16/2019 8:38 AM CDT Legal Sex Female 3:11 AM SEISMOGRAPH RECORDER Gender Identity Female 01/16/2019 8:38 AM CDT Sexual Orientation Choose not to disclose 2021 11:32 AM SEISMOGRAPH RECORDER Occupation Industry Job Start Date Job End [...] documented as of this encounter Care Teams Respiratory Therapy Manager Relationship Specialty [place] [address] [place] [address] PCP - General Family Medicine 12/24/20 [place] [address] [place] [address] Assigned PCP 01/04/21 Stan Barnes MD [address] [place] [address] Assigned Surgical Provider 08/30/21 08/31/23 Trent Qureshi MD [facility] [address] [place] [address] Orthopaedic Surgery 09/16/21 Sammy Villa MD [address] [place] [address] Assigned Neuroscience Provider 10/01/24 documented as of this encounter
--- OUTSIDE RECORDS SUMMARY | 2024-12-03 04:57 | XMS_ITS | Encounter Summary ---
Author Organization [place] Address [facility] [place] [address] Care Team Providers Care Door Glass Installer Name Role Phone Herb Herman MD Primary Care Provider Herb Herman MD Unavailable Stan Barnes MD Unavailable [phone] Trent Qureshi MD Unavailable [phone] Sammy Villa MD Unavailable Reason for Visit * Reason Onset Date Comments MyChart Communication 07/14/2022 Encounter Details Date Type Department Care Team (Latest Contact Info) Description 07/14/2022 MyC Medical Advice [facility] [address] [place] [address] [place] [address] [place] [address] MyChart Communication Social History [...] How often do you attend chur or druze services? More than 4 times [...] Answer Date Recorded PHQ-2 Score 0 03/08/[address]22 [facility] of Occupat ional [facility] - Occupational Stress Questionnaire Answer [...] AM CDT Legal Sex Female 3:11 AM ALLOPATHIC DOCTOR Gender Identity Female 01/16/2019 8:38 AM CDT Sexual Orientation Choose not to disclose 2021 11:32 AM ALLOPATHIC DOCTOR Occupation Industry Job Start Date Job End [...] Bueno RN - 07/14/2022 10:04 AM CDT [employer] message sent to patient, reply requested. Virginia Bueno R.N. documented in this encounter Plan of Treatment Not on file documented as of this encounter Visit Diagnoses Not on filedocumented in this encounter Additional Health Concerns Assessment Noted Time PHQ-9 Depression Total Score: 0 03/08/20 10:26 AM ALLOPATHIC DOCTOR documented as of this encounter Care Teams Door Glass Installer Relationship Specialty [place] [address] [place] [address] PCP - General Family Medicine 12/24/20 [place] [address] [place] [address] Assigned PCP 01/04/21 Stan Barnes MD [address] [place] [address] Assigned Surgical Provider 08/30/21 08/31/23 Trent Qureshi MD [facility] [address] [place] [address] Orthopaedic Surgery 09/16/21 Sammy Villa MD [address] [place] [address] 686455 Assigned Neuroscience Provider 10/01/24 documented as of this encounter
--- OUTSIDE RECORDS SUMMARY | 2024-12-03 04:57 | XMS_ITS | Encounter Summary ---
Author Organization [facility] Address [address] [place] [address] Care Team Providers Care Comb Tender Name Role Phone Daniel Plaza MD Primary Care Provider Daniel Plaza MD Unavailable [phone] Daniel Plaza MD Unavailable Stan Barnes MD Unavailable [phone] Herb Herman MD Primary Care Provider [phone] Herb Herman MD Unavailable Stan Barnes MD Unavailable [phone] Trent Qureshi MD Unavailable [phone] Sammy Villa MD Unavailable Encounter Details Date Type Department Care Team (Latest Contact Info) Description 01/24/2016 [facility] Medical Advice [facility] [address] [address] Daniel Plaza MD [address] [address] Spinal stenosis of lumbar region [...] AM CDT Legal Sex Female 3:11 AM LIFTER DRIVER Gender Identity Female 01/16/2019 8:38 AM CDT Sexual Orientation Choose not to disclose 2021 11:32 AM LIFTER DRIVER documented as of this encounter Plan of Treatment Not on file documented as of this encounter Visit Diagnoses Diagnosis Spinal stenosis of lumbar region with neurogenic claudication- Primary Spinal stenosis, lumbar region, with neurogenic claudication documented in this encounter Additional Health Concerns Assessment Noted Time PHQ-9 Depression Total Score: 0 12/23/19 16 7:14 AM CDT documented as of this encounter Care Teams Comb Tender Relationship Specialty Start Date End Date Daniel Plaza MD [address] [place] [address] PCP - General 06/29/10 12/23/20 Daniel Plaza MD [address] [place] [phone] PCP - Assigned PCP 02/05/08 06/13/18 [place] [address] [place] [address] PCP - General Family Medicine 12/24/20 Daniel Plaza MD [address] [place] [phone] Assigned PCP 01/13/12 01/03/21 Stan Barnes MD 9 [place] [address] Assigned Surgical Provider 02/01/20 07/19/20 [place] [address] [place] [address] Assigned PCP 01/04/21 Stan Barnes MD [address] [place] [address] 570815 Assigned Surgical Provider 08/30/21 08/31/23 Trent Qureshi MD [facility] [address] [place] [address] 840505 Orthopaedic Surgery 09/16/21 Sammy Villa MD [address] [place] [address] 96 [place], [place] 716185 Assigned Neuroscience Provider 10/01/24 documented as of this encounter
--- OUTSIDE RECORDS SUMMARY | 2024-12-03 04:57 | XMS_ITS | Encounter Summary ---
Author Organization [facility] Address [address] [place] [address] Care Team Providers Care Continuous Mining Machine Company Miner Name Role Phone Daniel Plaza MD Primary Care Provider Daniel Plaza MD Unavailable Daniel Plaza MD Unavailable Stan Barnes MD Unavailable [phone] Herb Herman MD Primary Care Provider [phone] Herb Herman MD Unavailable Stan Barnes MD Unavailable [phone] Trent Qureshi MD Unavailable [phone] Sammy Villa MD Unavailable Encounter Details Date Type Department Care Team (Late st Contact Info) Description 06/23/2011 [facility] Medical Advice [facility] [address] [address] Daniel Plaza MD [address] [phone] Social History Tobacco Use Types Packs/Day Years Used Date Smoking Tobacco: Never Smokeless Tobacco: Never Alcohol Use Standard Drinks/Week Comments No 0 (1 standard drink = 0.6 oz pur e alcohol) Comments No Sex and Gender Information Value Date Recorded Sex Assigned at Female 01/16/2019 8:38 AM CDT Legal Sex Female 3:11 AM DOUGHNUT MAKER Gender Identity Female 01/16/2019 8:38 AM CDT Sexual Orientation Choose not to disclose 2021 11:32 AM DOUGHNUT MAKER documented as of this encounter Plan of Treatment Not on file documented as of this encounter Visit Diagnoses Not on filedocumented in this encounter Care Teams Continuous Mining Machine Company Miner Relationship Specialty Start Date End Date Daniel Plaza MD [address] [place] [address] PCP - General 06/29/10 12/23/20 Daniel Plaza MD [address] [place] [phone] PCP - Assigned PCP 02/05/08 06/13/18 [place] [address] [place] [address] PCP - General Family Medicine 12/24/20 Daniel Plaza MD [address] [place] [phone] Assigned PCP 01/13/12 01/03/21 Stan Barnes MD [address] [place] [address] Assigned Surgical Provider 02/01/20 07/19/20 [place] [address] [place] [address] Assigned PCP 01/04/21 Stan Barnes MD [address] [place] [address] 556105 Assigned Surgical Provider 08/30/21 08/31/23 Trent Qureshi MD [facility] [address] [place] [address] 655225 Orthopaedic Surgery 09/16/21 Sammy Villa MD 420 [facility] 96 [place], [place] 751735 Assigned Neuroscience Provider 10/01/24 documented as of this encounter
--- OUTSIDE RECORDS SUMMARY | 2024-12-03 04:57 | XMS_ITS | Encounter Summary ---
Author Organization [facility] Address [address] [place] [address]. [place] [address] Care Team Providers Care Application Systems Architect Name Role Phone Herb Herman MD Primary Care Provider [phone] Herb Herman MD Unavailable Stan Barnes MD Unavailable [phone] Trent Qureshi MD Unavailable [phone] Sammy Villa MD Unavailable [phone] Reason for Visit * Reason Onset Date Comments Medication Request 07/13/2021 Encounter Details Date Type Department Care Team (Late st Contact Info) Description 07/13/2021 MyC Medical Advice [facility] [address] [place] [address] [place] [id number] [place] [address] Medication Request Social History Tobacco Use [...] often do you attend chur ch or roman catholic services? More than 4 [...] Answer Date Recorded PHQ-2 Score 0 06/24/2021 [facility] [...] AM CDT Legal Sex Female 3:11 AM CONTRACTOR GENERAL ENGINEERING Gender Identity Female 01/16/2019 8:38 AM CDT Sexual Orientation Choose not to disclose 2021 11:32 AM CONTRACTOR GENERAL ENGINEERING Occupation Industry Job Start Date Job End [...] Total Score: 0 06/10/19 22 7:01 AM CONTRACTOR GENERAL ENGINEERING documented as of this encounter Care Teams Application Systems Architect Relationship Specialty [place] [address] [place] [address] PCP - General Family Medicine 12/24/20 [place] [address] [place] [address] Assigned PCP 01/04/21 Stan Barnes MD [address] [place] [address] Assigned Surgical Provider 08/30/21 08/31/23 Trent Qureshi MD [facility] [address] [place] [address] Orthopaedic Surgery 09/16/21 Sammy Villa MD [address] [place] [address] Assigned Neuroscience Provider 10/01/24 documented as of this encounter
--- OUTSIDE RECORDS SUMMARY | 2024-12-03 04:57 | XMS_ITS | Encounter Summary ---
Author Organization [facility] Address [address] [place] [address] Care Team Providers Care Slot Floor Attendant Name Role Phone Daniel Plaza MD Primary Care Provider Daniel Plaza MD Unavailable [phone] Daniel Plaza MD Unavailable Stan Barnes MD Unavailable [phone] Herb Herman MD Primary Care Provider [phone] Herb Herman MD Unavailable Stan Barnes MD Unavailable [phone] Trent Qureshi MD Unavailable [phone] Sammy Villa MD Unavailable [phone] Encounter Details Date Type Department Care Team (Late st Contact Info) Description 05/18/2007 MyC Medical Advice [facility] [address] [address] Daniel Plaza MD [address] [phone] Social History Tobacco Use Types Packs/Day Years Used Date Smoking Tobacco: Never Alcohol Use Standard Drinks/Week Comments Yes 0 (1 standard drink = 0.6 oz pur e alcohol) social Comments No Sex and Gender Information Value Date Recorded Sex Assigned at Female 01/16/2019 8:38 AM CDT Legal Sex Female 3:11 AM CLIENT ASSOCIATE Gender Identity Female 01/16/2019 8:38 AM CDT Sexual Orientation Choose not to disclose 2021 11:32 AM CLIENT ASSOCIATE documented as of this encounter Plan of Treatment Not on file documented as of this encounter Visit Diagnoses Not on filedocumented in this encounter Care Teams Slot Floor Attendant Relationship Specialty Start Date End Date Daniel Plaza MD [address] [place] [phone] PCP - General 06/29/10 12/23/20 Daniel Plaza MD [address] [place] [phone] PCP - Assigned PCP 02/05/08 06/13/18 [place] [address] [place] [address] PCP - General Family Medicine 12/24/20 Daniel Plaza MD [address] [place] [phone] Assigned PCP 01/13/12 01/03/21 Stan Barnes MD 9 [place] [address] Assigned Surgical Provider 02/01/20 07/19/20 [place] [address] [place] [address] Assigned PCP 01/04/21 Stan Barnes MD [address] [place] [address] Assigned Surgical Provider 08/30/21 08/31/23 Trent Qureshi MD [facility] [address] 956655 Orthopaedic Surgery 09/16/21 Sammy Villa MD 420 [facility] 96 [place] [address] Assigned Neuroscience Provider 10/01/24 documented as of this encounter
--- OUTSIDE RECORDS SUMMARY | 2024-12-03 04:57 | XMS_ITS | Encounter Summary ---
Author Organization [facility] Address [address] [place] [address]. [place] [address] Care Team Providers Care Grease And Tallow Pumper Name Role Phone Herb Herman MD Primary Care Provider [phone] Herb Herman MD Unavailable Stan Barnes MD Unavailable [phone] Trent Qureshi MD Unavailable [phone] Sammy Villa MD Unavailable [phone] Encounter Details Date Type Department Care Team (Late st Contact Info) Description 08/10/2021 [facility] [address] 4th [place] [address] Rodolfo Cline Social History Tobacco [...] week 06/08/2021 How often do you attend [facility] or anabaptism services? More than 4 times [...] Answer Date Recorded PHQ-2 Score 0 06/24/2021 [facility]at [facility] - Occupational Stress Questionnaire Answer Date [...] AM CDT Legal Sex Female 3:11 AM BROOMCORN SEEDER Gender Identity Female 01/16/2019 8:38 AM CDT Sexual Orientation Choose not to disclose 2021 11:32 AM BROOMCORN SEEDER Occupation Industry Job Start Date Job End [...] Total Score: 0 06/10/19 22 7:01 AM BROOMCORN SEEDER documented as of this encounter Care Teams Grease And Tallow Pumper Relationship Specialty [place] [address] [place] [address] PCP - General Family Medicine 12/24/20 [place] [address] [place] [address] Assigned PCP 01/04/21 Stan Barnes MD [address] [place] [address] Assigned Surgical Provider 08/30/21 08/31/23 Trent Qureshi MD [facility] [address] [address] Orthopaedic Surgery 09/16/21 Sammy Villa MD [address] [place] [address] 96 [place], [place] 740135 Assigned Neuroscience Provider 10/01/24 documented as of this encounter
--- OUTSIDE RECORDS SUMMARY | 2024-12-03 04:58 | XMS_ITS | Encounter Summary ---
Author Organization [facility] Address [address] [place] [address] Care Team Providers Care Stack Yield Engineer Name Role Phone Daniel Plaza MD Primary Care Provider [phone] Daniel Plaza MD Unavailable [phone] Herb Herman MD Primary Care Provider [phone] Herb Herman MD Unavailable Stan Barnes MD Unavailable Trent Qureshi MD Unavailable [phone] Sammy Villa MD Unavailable [phone] Encounter Details Date Type Department Care Team (Late st Contact Info) Description 10/15/2020 MyC Medical Advice [address] [address] Yvonne Zavala Social History Tobacco [...] CDT Legal Sex Female 3:11 AM HAT BINDER Gender Identity Female 01/16/2019 8:38 AM CDT Sexual Orientation Choose not to disclose 2021 11:32 AM HAT BINDER documented as of this encounter Plan of Treatment Not on file documented as of this encounter Visit Diagnoses Not on filedocumented in this encounter Additional Health Concerns Assessment Noted Time PHQ-9 Depression Total Score: 1 06/26/19 21 11:29 AM CDT documented as of this encounter Care Teams Stack Yield Engineer Relationship Specialty Start Date End Date Daniel Plaza MD [address] [place] [phone] PCP - General 06/29/10 12/23/20 [place] [address] [place] [address] PCP - General Family Medicine 12/24/20 Daniel Plaza MD [address] [phone] Assigned PCP 01/13/12 01/03/21 [place] [address] [place] [address] Assigned PCP 01/04/21 Stan Barnes MD [address] [place] [address] Assigned Surgical Provider 08/30/21 08/31/23 Trent Qureshi MD [facility] [address] [place] [address] 115825 Orthopaedic Surgery 09/16/21 Sammy Villa MD [address] [place] [address] Assigned Neuroscience Provider 10/01/24 documented as of this encounter
--- OUTSIDE RECORDS SUMMARY | 2024-12-03 04:58 | XMS_ITS | Encounter Summary ---
Author Organization [facility] Address [address] [place] [address]. [place] [address] Care Team Providers Care Consumer Relations Complaint Clerk Name Role Phone Herb Herman MD Primary Care Provider Herb Herman MD Unavailable Stan Barnes MD Unavailable [phone] Trent Qureshi MD Unavailable [phone] Sammy Villa MD Unavailable [phone] Encounter Details Date Type Department Care Team (Late st Contact Info) Description 09/23/2021 [facility] [address] 4th [place] [address] Son [facility] Social History Tobacco Use Types Packs/Day Years [...] you attend [facility] or mandaen services? More than 4 [...] Answer Date Recorded PHQ-2 Score 0 09/15/2021 [facility] of Occupat ional [facility] - Occupational Stress Questionnaire Answer Date Recorded [...] No 06/08/2021 Housing Stability Vital Sign Answer Emhrdad e Recorded In the last 12 months, [...] AM CDT Legal Sex Female 3:11 AM LAMP SHADE SEWER Gender Identity Female 01/16/2019 8:38 AM CDT Sexual Orientation Choose not to disclose 2021 11:32 AM LAMP SHADE SEWER Occupation Industry Job Start Date Job [...] documented as of this encounter Care Teams Consumer Relations Complaint Clerk Relationship Specialty [place] [address] [place] [address] PCP - General Family Medicine 12/24/20 [place] [address] [place] [address] Assigned PCP 01/04/21 Stan Barnes MD [address] [place] [address] Assigned Surgical Provider 08/30/21 08/31/23 Trent Qureshi MD [facility] [address] [address] Orthopaedic Surgery 09/16/21 Sammy Villa MD [address] [place] [address] 96 [place], [place] 243995 Assigned Neuroscience Provider 10/01/24 documented as of this encounter
--- OUTSIDE RECORDS SUMMARY | 2024-12-03 04:58 | XMS_ITS | Encounter Summary ---
Author Organization [facility] Address [address] [place] [address] Care Team Providers Care Five Piece Expansion Maker Hand Name Role Phone Daniel Plaza MD Primary Care Provider Daniel Plaza MD Unavailable [phone] Daniel Plaza MD Unavailable Stan Barnes MD Unavailable [phone] Herb Herman MD Primary Care Provider Herb Herman MD Unavailable Stan Barnes MD Unavailable [phone] Trent Qureshi MD Unavailable [phone] Sammy Villa MD Unavailable [phone] Encounter Details Date Type Department Care Team (Late st Contact Info) Description 10/30/2014 MyC Medical Advice [facility] [address] [address] Daniel Plaza MD [address] [phone] Social History Tobacco Use Types Packs/Day Years Used Date Smoking Tobacco: Never Smokeless Tobacco: Never Alcohol Use Standard Drinks/Week Comments No 0 (1 standard drink = 0.6 oz pur e alcohol) Comments No Sex and Gender Information Value Date Recorded Sex Assigned at Female 01/16/2019 8:38 AM CDT Legal Sex Female 3:11 AM SOCK LINER Gender Identity Female 01/16/2019 8:38 AM CDT Sexual Orientation Choose not to disclose 2021 11:32 AM SOCK LINER documented as of this encounter Miscellaneous Notes [...] on filedocumented in this encounter Care Teams Five Piece Expansion Maker Hand Relationship Specialty Start Date End Date Daniel Plaza MD [address] [place] [address] PCP - General 06/29/10 12/23/20 Daniel Plaza MD [address] [place] [address] PCP - Assigned PCP 02/05/08 06/13/18 [place] [address] [place] [address] PCP - General Family Medicine 12/24/20 Daniel Plaza MD [address] [place] [address] Assigned PCP 01/13/12 01/03/21 Stan Barnes MD [address] [place] [address] Assigned Surgical Provider 02/01/20 07/19/20 [place] [address] [place] [address] Assigned PCP 01/04/21 Stan Barnes MD [address] [place] [address] Assigned Surgical Provider 08/30/21 08/31/23 Trent Qureshi MD [facility] [address] [place] [address] Orthopaedic Surgery 09/16/21 Sammy Villa MD [address] [place] [address] 96 [place], [place] 549315 Assigned Neuroscience Provider 10/01/24 documented as of this encounter
--- OUTSIDE RECORDS SUMMARY | 2024-12-03 04:58 | XMS_ITS | Encounter Summary ---
Author Organization [facility] Address [address] [place] [address]. [place] [address] Care Team Providers Care Software Configuration Engineer Name Role Phone Herb Herman MD Primary Care Provider Herb Herman MD Unavailable Trent Qureshi MD Unavailable [phone] Sammy Villa MD Unavailable Reason for Visit * Reason Onset Date Comments MyChart Communication 03/30/2024 Encounter Details Date Type Department Care Team (Latest Contact Info) Description 03/30/2024 MyC Medical Advice [facility] [address] [place] [address] [place] [address] [place] [address] MyChart Communication Social History Tobacco [...] often do you attend chur ch or methodist services? 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 file documented as of this encounter Plan of Treatment Not on file documented as of this encounter Visit Diagnoses Not on filedocumented in this encounter Additional Health Concerns Assessment Noted Time PHQ-9 Depression Total Score: 0 05/02/19 24 10:52 AM DEAF INTERPRETER documented as of this encounter Care Teams Software Configuration Engineer Relationship Specialty [place] [address] [place] [address] PCP - General Family Medicine 12/24/20 [place] [address] [place] [address] Assigned PCP 01/04/21 Trent Qureshi MD [facility] [address] [place] [address] Orthopaedic Surgery 09/16/21 Sammy Villa MD [address] [place] [address] 443795 Assigned Neuroscience Provider 10/01/24 documented as of this encounter
--- OUTSIDE RECORDS SUMMARY | 2024-12-03 04:58 | XMS_ITS | Encounter Summary ---
Author Organization [place] Address [address] [place] [address]. [place] [address] Care Team Providers Care Bonus Clerk Name Role Phone Herb Herman MD Primary Care Provider Herb Herman MD Unavailable Stan Barnes MD Unavailable + [phone] Trent Qureshi MD Unavailable [phone] Sammy Villa MD Unavailable [phone] Encounter Details Date Type Department Care Team (Late st Contact Info) Description 08/27/2021 MyC Medical Advice [address] 5th [place] [address] Rachelle Mai RN Social History [...] How often do you attend chur or scientologist services? More than 4 times [...] 08/25/2021 [facility] Occupat ional [facility] - Occupational Stress Questionnaire Answer [...] CDT Legal Sex Female 3:11 AM PERSONAL INJURY ATTORNEY Gender Identity Female 01/16/2019 8:38 AM CDT Sexual Orientation Choose not to disclose 2021 11:32 AM PERSONAL INJURY ATTORNEY Occupation Industry Job Start Date Job End [...] documented as of this encounter Care Teams Bonus Clerk Relationship Specialty [place] [address] [place] [address] PCP - General Family Medicine 12/24/20 [place] [address] [place] [address] Assigned PCP 01/04/21 Stan Barnes MD [address] [place] [address] Assigned Surgical Provider 08/30/21 08/31/23 Trent Qureshi MD [facility] [address] [address] Orthopaedic Surgery 09/16/21 Sammy Villa MD [address] [place] [address] 96 [place], [place] 194875 Assigned Neuroscience Provider 10/01/24 documented as of this encounter
--- OUTSIDE RECORDS SUMMARY | 2024-12-03 04:58 | XMS_ITS | Encounter Summary ---
Author Organization [facility] Address [address] [place] [address] Care Team Providers Care Supervisor Calibration Name Role Phone Herb Herman MD Primary Care Provider [phone] Herb Herman MD Unavailable Stan Barnes MD Unavailable + [phone] Trent Qureshi MD Unavailable [phone] Sammy Villa MD Unavailable [phone] Encounter Details Date Type Department Care Team (Late st Contact Info) Description 12/23/2021 MyC Medical Advice [facility] [address] [place] [address] Brooke Barnes Social History Tobacco Use [...] Answer Date Recorded PHQ-2 Score 0 11/24/2021 [facility] of Occupat ional [facility] - Occupational Stress Questionnaire [...] AM CDT Legal Sex Female 3:11 AM WET MACHINE TENDER Gender Identity Female 01/16/2019 8:38 AM CDT Sexual Orientation Choose not to disclose 2021 11:32 AM WET MACHINE TENDER Occupation Industry Job Start Date [...] documented as of this encounter Care Teams Supervisor Calibration Relationship Specialty [place] [address] [place] [address] PCP - General Family Medicine 12/24/20 [place] [address] [place] [address] Assigned PCP 01/04/21 Stan Barnes MD [address] [place] [address] Assigned Surgical Provider 08/30/21 08/31/23 Trent Qureshi MD [facility] [address] [place] [address] Orthopaedic Surgery 09/16/21 Sammy Villa MD [address] [place] [address] 96 [place], [place] 318915 Assigned Neuroscience Provider 10/01/24 documented as of this encounter
--- OUTSIDE RECORDS SUMMARY | 2024-12-03 04:58 | XMS_ITS | Encounter Summary ---
Author Organization [place] Address [address] [place] [address] 31761 Care Team Providers Care Rice Farmer Name Role Phone Herb Herman MD Primary Care Provider Herb Herman MD Unavailable Stan Barnes MD Unavailable [phone] Trent Qureshi MD Unavailable [phone] Sammy Villa MD Unavailable Reason for Visit * Reason Comments Medication Refill Encounter Details Date Type Department Care Team (Late st Contact Info) Description 01/28/[address] [phone] Daniel Plaza MD [address] [place] [address] [phone] Medication Refill Social History Tobacco Use Types [...] Legal Sex Female 3:11 AM GOLF BALL INSPECTOR Gender Identity Female 01/16/2019 8:38 AM CDT Sexual Orientation Choose not to disclose 2021 11:32 AM GOLF BALL INSPECTOR documented as of this encounter Miscellaneous Notes [...] documented as of this encounter Care Teams Rice Farmer Relationship Specialty [place] [address] [place] [address] PCP - General Family Medicine 12/24/20 [place] [address] [place] [address] Assigned PCP 01/04/21 Stan Barnes MD [address] [place] [address] 11584 Assigned Surgical Provider 08/30/21 08/31/23 Trent Qureshi MD [facility] [address] [place] [address] 60852 Orthopaedic Surgery 09/16/21 Sammy Villa MD [address] [place] [address] [phone] Assigned Neuroscience Provider 10/01/24 documented as of this encounter
--- OUTSIDE RECORDS SUMMARY | 2024-12-03 04:58 | XMS_ITS | Encounter Summary ---
Author Organization [place] Address [address] [place] [address]86 Care Team Providers Care Wallpaper Scraper Name Role Phone Daniel Plaza MD Primary Care Provider [phone] Daniel Plaza MD Unavailable [phone] Daniel Plaza MD Unavailable Stan Barnes MD Unavailable [phone] Herb Herman MD Primary Care Provider Herb Herman MD Unavailable Stan Barnes MD Unavailable [phone] Trent Qureshi MD Unavailable [phone] Sammy Villa MD Unavailable Reason for Visit * Reason Onset Date Comments Respiratory Problems 02/16/2008 Encounter Details Date Type Department Care Team (Latest Contact Info) Description 02/15/2008 MyC Medical Advice [facility] [address] [address] Daniel Plaza MD [address] [address] Respiratory Problems Social History Tobacco Use Types Packs/Day Years Used Date Smoking Tobacco: Never Alcohol Use Standard Drinks/Week Comments Yes 0 (1 standard drink = 0.6 oz pur e alcohol) social Comments No Sex and Gender Information Value Date Recorded Sex Assigned at Female 01/16/2019 8:38 AM CDT Legal Sex Female 3:11 AM ELECTRICAL MANUFACTURING ENGINEER Gender Identity Female 01/16/2019 8:38 AM CDT Sexual Orientation Choose not to disclose 2021 11:32 AM ELECTRICAL MANUFACTURING ENGINEER documented as of this encounter Plan of Treatment Not on file documented as of this encounter Visit Diagnoses Not on filedocumented in this encounter Care Teams Wallpaper Scraper Relationship Specialty Start Date End Date Daniel Plaza MD [address] [place] [address] [phone] PCP - General 06/29/10 12/23/20 Daniel Plaza MD [address] [place] [address] [phone] PCP - Assigned PCP 02/05/08 06/13/18 [place] [address] [place] [address] PCP - General Family Medicine 12/24/20 Daniel Plaza MD [address] [place] [phone] Assigned PCP 01/13/12 01/03/21 Stan Barnes MD 9 [place] [address] Assigned Surgical Provider 02/01/20 07/19/20 [place] [address] [place] [address] Assigned PCP 01/04/21 Stan Barnes MD [address] [place] [address] 901955 Assigned Surgical Provider 08/30/21 08/31/23 Trent Qureshi MD [facility] [address] [place] [address] [phone] Orthopaedic Surgery 09/16/21 Sammy Villa MD [address] [place] [address] 96 [place], [place] 966995 Assigned Neuroscience Provider 10/01/24 documented as of this encounter
--- OUTSIDE RECORDS SUMMARY | 2024-12-03 04:58 | XMS_ITS | Encounter Summary ---
Author Organization [place] Address [address] [place] [address]. [place] [address] Care Team Providers Care Ship'S Electronic Warfare Officer Name Role Phone Herb Herman MD Primary Care Provider [phone] Herb Herman MD Unavailable Trent Qureshi MD Unavailable [phone] Sammy Villa MD Unavailable [phone] Encounter Details Date Type Department Care Team (Late st Contact Info) Description 09/19/2024 [facility] Medical Advice [facility] Neurology [address], [address] [place] [phone] Ana Larsen, IRENE Social History Tobacco [...] How often do you attend chur or cheondoism services? 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 file documented as of this encounter Plan of Treatment Not on file documented as of this encounter Visit Diagnoses Not on filedocumented in this encounter Additional Health Concerns Assessment Noted Time PHQ-9 Depression Total Score: 0 05/02/19 25 10:13 AM MANAGER CONFIGURATION documented as of this encounter Care Teams Ship'S Electronic Warfare Officer Relationship Specialty [place] [address] [place] [address] PCP - General Family Medicine 12/24/20 [place] [address] [place] [address] Assigned PCP 01/04/21 Trent Qureshi MD [facility] [address] [place] [address] [phone] Orthopaedic Surgery 09/16/21 Sammy Villa MD [address] [place] [place] [address] Assigned Neuroscience Provider 10/01/24 documented as of this encounter
--- OUTSIDE RECORDS SUMMARY | 2024-12-03 04:58 | XMS_ITS | Encounter Summary ---
Author Organization [place] Address [facility] [place] [address] Care Team Providers Care Coil Inspector Name Role Phone Herb Herman MD Primary Care Provider Herb Herman MD Unavailable Stan Barnes MD Unavailable [phone] Trent Qureshi MD Unavailable [phone] Sammy Villa MD Unavailable Encounter Details Date Type Department Care Team (Late st Contact Info) Description 06/22/2022 MyC Medical Advice [facility] [id number] [place] [address] [place] [address] [place] [address] Social History Tobacco Use Types [...] often do you attend chur ch or protestant services? 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 file documented as of this encounter Plan of Treatment Not on file documented as of this encounter Visit Diagnoses Not on filedocumented in this encounter Additional Health Concerns Assessment Noted Time PHQ-9 Depression Total Score: 0 03/08/20 22 10:26 AM HELP DESK AGENT documented as of this encounter Care Teams Coil Inspector Relationship Specialty [place] [address] [place] [address] PCP - General Family Medicine 12/24/20 [place] [address] [place] [address] Assigned PCP 01/04/21 Stan Barnes MD [address] [place] [address] [phone] Assigned Surgical Provider 08/30/21 08/31/23 Trent Qureshi MD [facility] [address] [place] [address] [phone] Orthopaedic Surgery 09/16/21 Sammy Villa MD [address] [place] [address] [phone] Assigned Neuroscience Provider 10/01/24 documented as of this encounter
--- OUTSIDE RECORDS SUMMARY | 2024-12-03 04:58 | XMS_ITS | Encounter Summary ---
Author Organization [place] Address [address] [place] [address] Care Team Providers Care Ambulatory Technologist Name Role Phone Daniel Plaza MD Primary Care Provider Daniel Plaaz MD Unavailable Daniel Plaza MD Unavailable Stan Barnes MD Unavailable [phone] Herb Herman MD Primary Care Provider Herb Herman MD Unavailable Stan Barnes MD Unavailable [phone] Trent Qureshi MD Unavailable [phone] Sammy Villa MD Unavailable [phone] Encounter Details Date Type Department Care Team (Late st Contact Info) Description 01/09/2014 [facility] Medical Advice [facility] [address] [address] Daniel Plaza MD [address] [phone] Social History Tobacco Use Types Packs/Day Years Used Date Smoking Tobacco: Never Smokeless Tobacco: Never Alcohol Use Standard Drinks/Week Comments No 0 (1 standard drink = 0.6 oz pur e alcohol) Comments No Sex and Gender Information Value Date Recorded Sex Assigned at Female 01/16/2019 8:38 AM CDT Legal Sex Female 3:11 AM PEDIATRIC ONCOLOGY NURSE Gender Identity Female 01/16/2019 8:38 AM CDT Sexual Orientation Choose not to disclose 2021 11:32 AM PEDIATRIC ONCOLOGY NURSE documented as of this encounter Plan of Treatment Not on file documented as of this encounter Visit Diagnoses Not on filedocumented in this encounter Care Teams Ambulatory Technologist Relationship Specialty Start Date End Date Daniel Plaza MD [address] [place] [address] PCP - General 06/29/10 12/23/20 Daniel Plaza MD [address] [place] [phone] PCP - Assigned PCP 02/05/08 06/13/18 [place] [address] [place] [address] PCP - General Family Medicine 12/24/20 Daniel Plaza MD [address] [place] [phone] Assigned PCP 01/13/12 01/03/21 Stan Barnes MD [address] [place] [address] 900[address] Assigned Surgical Provider 02/01/20 07/19/20 [place] [address] [place] [address] Assigned PCP 01/04/21 Stan Barnes MD [address] [place] [address] 474755 Assigned Surgical Provider 08/30/21 08/31/23 Trent Qureshi MD [facility] [address] [place] [address] 225745 Orthopaedic Surgery 09/16/21 Sammy Villa MD 420 [facility] 96 [place], [place] 757515 Assigned Neuroscience Provider 10/01/24 documented as of this encounter
--- OUTSIDE RECORDS SUMMARY | 2024-12-03 04:58 | XMS_ITS | Encounter Summary ---
Author Organization [place] Address [address] [place] [address] Care Team Providers Care Marketing Graphics Specialist Name Role Phone Daniel Plaza MD Primary Care Provider Daniel Plaza MD Unavailable [phone] Daniel Plaza MD Unavailable [phone] Stan Barnes MD Unavailable [phone] Herb Herman MD Primary Care Provider Herb Herman MD Unavailable Stan Barnes MD Unavailable [phone] Trent Qureshi MD Unavailable [phone] Sammy Villa MD Unavailable Encounter Details Date Type Department Care Team (Late st Contact Info) Description 07/25/2012 MyC Medical Advice [facility] [address] [address] Daniel Plaza MD [address] [phone] Social History Tobacco Use Types Packs/Day Years Used Date Smoking Tobacco: Never Smokeless Tobacco: Never Alcohol Use Standard Drinks/Week Comments No 0 (1 standard drink = 0.6 oz pur e alcohol) Comments No Sex and Gender Information Value Date Recorded Sex Assigned at Female 01/16/2019 8:38 AM CDT Legal Sex Female 3:11 AM GAS METER CHECKER Gender Identity Female 01/16/2019 8:38 AM CDT Sexual Orientation Choose not to disclose 2021 11:32 AM GAS METER CHECKER documented as of this encounter Plan of Treatment Not on file documented as of this encounter Visit Diagnoses Not on filedocumented in this encounter Care Teams Marketing Graphics Specialist Relationship Specialty Start Date End Date Daniel Plaza MD [address] [place] [phone] PCP - General 06/29/10 12/23/20 Daniel Plaza MD [address] [place] [address] [phone] PCP - Assigned PCP 02/05/08 06/13/18 [place] [address] [place] [address] PCP - General Family Medicine 12/24/20 Daniel Plaza MD [address] [place] [address] [phone] Assigned PCP 01/13/12 01/03/21 Stan Barnes MD [address] [place] [address] 95990 Assigned Surgical Provider 02/01/20 07/19/20 [place] [address] [place] [address] Assigned PCP 01/04/21 Stan Barnes MD [address] [place] [address] 675525 Assigned Surgical Provider 08/30/21 08/31/23 Trent Qureshi MD [facility] [address] [place] [address] 678695 Orthopaedic Surgery 09/16/21 Sammy Villa MD 420 [facility] 96 [place], [place] 154405 Assigned Neuroscience Provider 10/01/24 documented as of this encounter
--- OUTSIDE RECORDS SUMMARY | 2024-12-03 04:58 | XMS_ITS | Encounter Summary ---
Author Organization [place] Address [address] [place] [address]. [place] [address] Care Team Providers Care Supervisor Orchard Name Role Phone Herb Herman MD Primary Care Provider Herb Herman MD Unavailable Stan Barnes MD Unavailable [phone] Trent Qureshi MD Unavailable [phone] Sammy Villa MD Unavailable Encounter Details Date Type Department Care Team (Late st Contact Info) Description 05/09/[address] [facility] [address] [phone] Stan Barnes MD [address] [place] [address] Social History Tobacco Use Types Packs/Day [...] How often do you attend chur or gnosticist services? 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 file documented as of this encounter Plan of Treatment Not on file documented as of this encounter Visit Diagnoses Not on filedocumented in this encounter Additional Health Concerns Assessment Noted Time PHQ-9 Depression Total Score: 0 05/02/19 24 10:52 AM DEMONSTRATOR KNITTING documented as of this encounter Care Teams Supervisor Orchard Relationship Specialty [place] [address] [place] [address] PCP - General Family Medicine 12/24/20 [place] [address] [place] [address] Assigned PCP 01/04/21 Stan Barnes MD [address] [place] [address] Assigned Surgical Provider 08/30/21 08/31/23 Trent Qureshi MD [facility] [address] [place] [address] 727645 Orthopaedic Surgery 09/16/21 Sammy Villa MD [address] [place] [address] 96 [place] [address] Assigned Neuroscience Provider 10/01/24 documented as of this encounter
--- OUTSIDE RECORDS SUMMARY | 2024-12-03 04:58 | XMS_ITS | Encounter Summary ---
Author Organization [place] Address [address] [place] [address] Care Team Providers Care Credentialer Name Role Phone Daniel Plaza MD Primary Care Provider Daniel Plaza MD Unavailable [phone] Stan Barnes MD Unavailable [phone] Herb Herman MD Primary Care Provider Herb Herman MD Unavailable Stan Barnse MD Unavailable [phone] Trent Qureshi MD Unavailable [phone] Sammy Villa MD Unavailable [phone] Encounter Details Date Type Department Care Team (Late st Contact Info) Description 12/21/2018 [facility] [address] [place] [address] [address] [place] [address] Stan Barnes MD [address] [place] [address] Social History Tobacco Use Types Packs/Day Years Used Date Smoking Tobacco: Never Smokeless Tobacco: Never Alcohol Use Standard Drinks/Week Comments No 0 (1 standard drink = 0.6 oz pur e alcohol) PHQ-2 Answer Date Recorded PHQ-2 Score 0 04/18/2018 Comments No Sex and Gender Information Value Date Recorded Sex Assigned at Female 01/16/2019 8:38 AM CDT Legal Sex Female 3:11 AM DRAW OFF WORKER Gender Identity Female 01/16/2019 8:38 AM CDT Sexual Orientation Choose not to disclose 2021 11:32 AM DRAW OFF WORKER documented as of this encounter Plan of Treatment Not on file documented as of this encounter Visit Diagnoses Not on filedocumented in this encounter Additional Health Concerns Assessment Noted Time PHQ-9 Depression Total Score: 0 11/24/19 19 11:34 AM CDT documented as of this encounter Care Teams Credentialer Relationship Specialty Start Date End Date Daniel Plaza MD [address] [place] [phone] PCP - General 06/29/10 12/23/20 [place] [address] [place] [address] PCP - General Family Medicine 12/24/20 Daniel Plaza MD [address] [place] [phone] Assigned PCP 01/13/12 01/03/21 Stan Barnes MD [address] [place] [address] 24749 Assigned Surgical Provider 02/01/20 07/19/20 [place] [address] [place] [address] Assigned PCP 01/04/21 Stan Barnes MD [address] [place] [address] 423915 Assigned Surgical Provider 08/30/21 08/31/23 Trent Qureshi MD [facility] [address] [place] [address] [phone] Orthopaedic Surgery 09/16/21 Sammy Villa MD [address] [place] [address] [phone] Assigned Neuroscience Provider 10/01/24 documented as of this encounter
--- OUTSIDE RECORDS SUMMARY | 2024-12-03 04:58 | XMS_ITS | Encounter Summary ---
Author Organization [place] Address [address] [place] [address]. [place] [address] Care Team Providers Care Child Attendant Name Role Phone Herb Herman MD Primary Care Provider Herb Herman MD Unavailable Trent Qureshi MD Unavailable [phone] Sammy Villa MD Unavailable [phone] Encounter Details Date Type Department Care Team (Late st Contact Info) Description 03/31/2024 MyC Medical Advice [facility] [address] [place] [address] [place] [address] [place] [address] Social History Tobacco Use Types [...] do you attend [facility] or temple services? 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 file documented as of this encounter Plan of Treatment Not on file documented as of this encounter Visit Diagnoses Not on filedocumented in this encounter Additional Health Concerns Assessment Noted Time PHQ-9 Depression Total Score: 0 05/02/19 24 10:52 AM WOOD MACHINE CARVER documented as of this encounter Care Teams Child Attendant Relationship Specialty [place] [address] [place] [address] PCP - General Family Medicine 12/24/20 [place] [address] [place] [address] Assigned PCP 01/04/21 Trent Qureshi MD [facility] [address] [place] [address] Orthopaedic Surgery 09/16/21 Sammy Villa MD [address] [place] [address] Assigned Neuroscience Provider 10/01/24 documented as of this encounter
--- OUTSIDE RECORDS SUMMARY | 2024-12-03 04:58 | XMS_ITS | Encounter Summary ---
Author Organization [place] Address [facility] [place] [address] Care Team Providers Care Bootmaker Name Role Phone Herb Herman MD Primary Care Provider [phone] Herb Herman MD Unavailable Stan Barnes MD Unavailable [phone] Trent Qureshi MD Unavailable [phone] Sammy Villa MD Unavailable Encounter Details Date Type Department Care Team (Late st Contact Info) Description 07/16/2021 MyC Medical Advice [facility] [address] [place] [address] [place] [address] [place] [address] Social History Tobacco Use Types [...] Answer Date Recorded PHQ-2 Score 0 06/24/2021 [facility] of Occupat ional Health [...] AM CDT Legal Sex Female 3:11 AM PV INSTALLER TECH Gender Identity Female 01/16/2019 8:38 AM CDT Sexual Orientation Choose not to disclose 2021 11:32 AM PV INSTALLER TECH Occupation Industry Job Start Date Job [...] Total Score: 0 06/10/19 22 7:01 AM PV INSTALLER TECH documented as of this encounter Care Teams Bootmaker Relationship Specialty [place] [address] [place] [address] PCP - General Family Medicine 12/24/20 [place] [address] [place] [address] Assigned PCP 01/04/21 Stan Barnes MD [address] [place] [address] 34795 Assigned Surgical Provider 5/22/22 5/22/24 Trent Qureshi MD [facility] [address] [place] [address] 043135 Orthopaedic Surgery 09/16/21 Sammy Villa MD [address] [place] [address] [phone] Assigned Neuroscience Provider 10/01/24 documented as of this encounter
--- OUTSIDE RECORDS SUMMARY | 2024-12-03 04:58 | XMS_ITS | Encounter Summary ---
Author Organization [place] Address [address] [place] [address] Care Team Providers Care Plater Helper Name Role Phone Daniel Plaza MD Primary Care Provider Daniel Plaza MD Unavailable Daniel Plaza MD Unavailable Stan Barnes MD Unavailable [phone] Herb Herman MD Primary Care Provider [phone] Herb Herman MD Unavailable Stan Barnes MD Unavailable [phone] Trent Qureshi MD Unavailable [phone] Sammy Villa MD Unavailable [phone] Encounter Details Date Type Department Care Team (Late st Contact Info) Description 04/28/2013 MyC Medical Advice [facility] [address] [address] Daniel Plaza MD [address] [phone] Social History Tobacco Use Types Packs/Day Years Used Date Smoking Tobacco: Never Smokeless Tobacco: Never Alcohol Use Standard Drinks/Week Comments No 0 (1 standard drink = 0.6 oz pur e alcohol) Comments No Sex and Gender Information Value Date Recorded Sex Assigned at Female 01/16/2019 8:38 AM CDT Legal Sex Female 3:11 AM WEARING APPAREL PRESSER Gender Identity Female 01/16/2019 8:38 AM CDT Sexual Orientation Choose not to disclose 2021 11:32 AM WEARING APPAREL PRESSER documented as of this encounter Plan of Treatment Not on file documented as of this encounter Visit Diagnoses Not on filedocumented in this encounter Care Teams Plater Helper Relationship Specialty Start Date End Date Daniel Plaza MD [address] [place] [phone] PCP - General 06/29/10 12/23/20 Daniel Plaza MD [address] [place] [phone] PCP - Assigned PCP 02/05/08 06/13/18 [place] [address] [place] [address] PCP - General Family Medicine 12/24/20 Daniel Plaza MD [address] [place] [phone] Assigned PCP 01/13/12 01/03/21 Stan Barnes MD [address] [place] [address] Assigned Surgical Provider 02/01/20 07/19/20 [place] [address] [place] [address] Assigned PCP 01/04/21 Stan Barnes MD [address] [place] [address] 568125 Assigned Surgical Provider 08/30/21 08/31/23 Trent Qureshi MD [facility] [address] [place] [address] 405225 Orthopaedic Surgery 09/16/21 Sammy Villa MD 420 [facility] 96 [place], [place] 289925 Assigned Neuroscience Provider 10/01/24 documented as of this encounter
--- OUTSIDE RECORDS SUMMARY | 2024-12-03 04:58 | XMS_ITS | Encounter Summary ---
Author Organization [facility] Address [address] [place] [address] Care Team Providers Care Pipe Inspector Name Role Phone Herb Herman MD Primary Care Provider [phone] Herb Herman MD Unavailable Trent Qureshi MD Unavailable [phone] Sammy Villa MD Unavailable Encounter Details Date Type Department Care Team (Late st Contact Info) Description 02/20/2024 [facility] Medical Advice [address] [address] Brooke Barnes Social History Tobacco [...] Answer Date Recorded PHQ-2 Score 0 05/02/2023 [facility] - [...] AM CDT Legal Sex Female 3:11 AM CASH REGISTER OPERATOR Gender Identity Female 01/16/2019 8:38 AM CDT Sexual Orientation Choose not to disclose 2021 11:32 AM CASH REGISTER OPERATOR 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 file documented as of this encounter Plan of Treatment Not on file documented as of this encounter Visit Diagnoses Not on filedocumented in this encounter Additional Health Concerns Assessment Noted Time PHQ-9 Depression Total Score: 0 05/02/19 24 10:52 AM CASH REGISTER OPERATOR documented as of this encounter Care Teams Pipe Inspector Relationship Specialty [place] [address] [place] [address] PCP - General Family Medicine 12/24/20 [place] [address] [place] [address] Assigned PCP 01/04/21 Trent Qureshi MD [facility] [address] [place] [address] 254145 Orthopaedic Surgery 09/16/21 Sammy Villa MD [address] [place] [address] [phone] Assigned Neuroscience Provider 10/01/24 documented as of this encounter
--- OUTSIDE RECORDS SUMMARY | 2024-12-03 04:58 | XMS_ITS | Encounter Summary ---
Author Organization [employer] Address [address] [place] [address] Care Team Providers Care Mandarin Teacher Name Role Phone Daniel Plaza MD Primary Care Provider Daniel Plaza MD Unavailable Daniel Plaza MD Unavailable [phone] Stan Barnes MD Unavailable [phone] Herb Herman MD Primary Care Provider [phone] Herb Herman MD Unavailable Stan Barnes MD Unavailable [phone] Trent Qureshi MD Unavailable [phone] Sammy Villa MD Unavailable [phone] Reason for Visit * Reason Onset Date Comments Thyroid Disease 07/23/2014 Encounter Details Date Type Department Care Team (Late st Contact Info) Description 07/23/2014 [facility] Medical Advice [facility] [address] [address] Daniel Plaza MD [address] [address] Thyroid Disease Social History Tobacco Use Types Packs/Day Years Used Date Smoking Tobacco: Never Smokeless Tobacco: Never Alcohol Use Standard Drinks/Week Comments No 0 (1 standard drink = 0.6 oz pur e alcohol) Comments No Sex and Gender Information Value Date Recorded Sex Assigned at Female 01/16/2019 8:38 AM CDT Legal Sex Female 3:11 AM FLUME MAKER Gender Identity Female 01/16/2019 8:38 AM CDT Sexual Orientation Choose not to disclose 2021 11:32 AM FLUME MAKER documented as of this encounter Plan of Treatment Not on file documented as of this encounter Visit Diagnoses Diagnosis MONTSERRAT'S THYROIDITIS- Primary Unspecified hypothyroidism documented in this encounter Care Teams Mandarin Teacher Relationship Specialty Start Date End Date Daniel Plaza MD [address] [place] [phone] PCP - General 06/29/10 12/23/20 Daniel Plaza MD [address] [place] [phone] PCP - Assigned PCP 02/05/08 06/13/18 [place] [address] [place] [address] PCP - General Family Medicine 12/24/20 Daniel Plaza MD [address] [place] [phone] Assigned PCP 01/13/12 01/03/21 Stan Barnes MD 9 [place] [address] Assigned Surgical Provider 02/01/20 07/19/20 [place] [address] [place] [address] Assigned PCP 01/04/21 Stan Barnes MD [address] [place] [address] Assigned Surgical Provider 08/30/21 08/31/23 Trent Qureshi MD [facility] [address] [place] [address] Orthopaedic Surgery 09/16/21 Sammy Villa MD [address] [place] [address] 96 [place] [address] Assigned Neuroscience Provider 10/01/24 documented as of this encounter
--- OUTSIDE RECORDS SUMMARY | 2024-12-03 04:58 | XMS_ITS | Encounter Summary ---
Author Organization [facility] Address [address] [place] [address] Care Team Providers Care Entry Level Mechanical Engineer Name Role Phone Daniel Plaza MD Primary Care Provider Daniel Plaza MD Unavailable Daniel Plaza MD Unavailable [phone] Stan Barnes MD Unavailable [phone] Herb Herman MD Primary Care Provider Herb Herman MD Unavailable Stan Barnes MD Unavailable [phone] Trent Qureshi MD Unavailable [phone] Sammy Villa MD Unavailable Encounter Details Date Type Department Care Team (Late st Contact Info) Description 02/28/2008 [facility] Medical Advice [facility] [address] [address] Daniel Plaza MD [address] [phone] Social History Tobacco Use Types Packs/Day Years Used Date Smoking Tobacco: Never Alcohol Use Standard Drinks/Week Comments Yes 0 (1 standard drink = 0.6 oz pur e alcohol) social Comments No Sex and Gender Information Value Date Recorded Sex Assigned at Female 01/16/2019 8:38 AM CDT Legal Sex Female 3:11 AM GLOBAL ACCOUNT DIRECTOR Gender Identity Female 01/16/2019 8:38 AM CDT Sexual Orientation Choose not to disclose 2021 11:32 AM GLOBAL ACCOUNT DIRECTOR documented as of this encounter Plan of Treatment Not on file documented as of this encounter Visit Diagnoses Not on filedocumented in this encounter Care Teams Entry Level Mechanical Engineer Relationship Specialty Start Date End Date Daniel Plaza MD [address] [place] [phone] PCP - General 06/29/10 12/23/20 Daniel Plaza MD [address] [place] [phone] PCP - Assigned PCP 02/05/08 06/13/18 [place] [address] [place] [address] PCP - General Family Medicine 12/24/20 Daniel Plaza MD [address] [place] [phone] Assigned PCP 01/13/12 01/03/21 Stan Barnes MD 9 [place] [address] Assigned Surgical Provider 02/01/20 07/19/20 [place] [address] [place] [address] Assigned PCP 01/04/21 Stan Barnes MD [address] [place] [address] Assigned Surgical Provider 08/30/21 08/31/23 Trent Qureshi MD [facility] [address] [phone] Orthopaedic Surgery 09/16/21 Sammy Villa MD 420 [facility] 96 [place] [address] Assigned Neuroscience Provider 10/01/24 documented as of this encounter
--- OUTSIDE RECORDS SUMMARY | 2024-12-03 04:58 | XMS_ITS | Encounter Summary ---
Author Organization [facility] Address [address] [place] [address] Care Team Providers Care Hand Candy Molder Name Role Phone Herb Herman MD Primary Care Provider [phone] Herb Herman MD Unavailable Trent Qureshi MD Unavailable [phone] Sammy Villa MD Unavailable [phone] Encounter Details Date Type Department Care Team (Late st Contact Info) Description 02/21/2024 [facility] Medical Advice [address] [address] Rama Roche MA Social History [...] How often do you attend chur or oriental orthodox services? 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 file documented as of this encounter Plan of Treatment Not on file documented as of this encounter Visit Diagnoses Not on filedocumented in this encounter Additional Health Concerns Assessment Noted Time PHQ-9 Depression Total Score: 0 05/02/19 24 10:52 AM TERRITORY SERVICE REPRESENTATIVE documented as of this encounter Care Teams Hand Candy Molder Relationship Specialty [place] [address] [place] [address] PCP - General Family Medicine 12/24/20 [place] [address] [place] [address] Assigned PCP 01/04/21 Trent Qureshi MD [facility] [address] [place] [address] [phone] Orthopaedic Surgery 09/16/21 Sammy Villa MD [address] [place] [address] 549102 Assigned Neuroscience Provider 10/01/24 documented as of this encounter
--- OUTSIDE RECORDS SUMMARY | 2024-12-03 04:58 | XMS_ITS | Encounter Summary ---
Author Organization [facility] Address [address] [place] [address]. [place] [address] Care Team Providers Care Drilling And Production Superintendent Name Role Phone Herb Herman MD Primary Care Provider Herb Herman MD Unavailable Trent Qureshi MD Unavailable [phone] Sammy Villa MD Unavailable [phone] Encounter Details Date Type Department Care Team (Late st Contact Info) Description 05/16/2024 [facility] Medical Advice [facility] [address] [place] [address] [place] [phone] [place] [address] Social History Tobacco Use Types Packs/Day [...] you attend [facility] or bahai services? 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 file documented as of this encounter Plan of Treatment Not on file documented as of this encounter Visit Diagnoses Not on filedocumented in this encounter Additional Health Concerns Assessment Noted Time PHQ-9 Depression Total Score: 0 05/02/19 25 10:13 AM PROSTHETICS LAB TECHNICIAN documented as of this encounter Care Teams Drilling And Production Superintendent Relationship Specialty [place] [address] [place] [address] PCP - General Family Medicine 12/24/20 [place] [address] [place] [address] Assigned PCP 01/04/21 Trent Qureshi MD [facility] [address] [place] [address] Orthopaedic Surgery 09/16/21 Sammy Villa MD [address] [place] [address] Assigned Neuroscience Provider 10/01/24 documented as of this encounter
--- OUTSIDE RECORDS SUMMARY | 2024-12-03 04:58 | XMS_ITS | Encounter Summary ---
Author Organization [place] Address [address] [place] [address] Care Team Providers Care Nutritional Services Cook Name Role Phone Daniel Plaza MD Primary Care Provider Daniel Plaza MD Unavailable [phone] Daniel Plaza MD Unavailable [phone] Stan Barnes MD Unavailable [phone] Herb Herman MD Primary Care Provider Herb Herman MD Unavailable Stan Barnes MD Unavailable [phone] Trent Qureshi MD Unavailable [phone] Sammy Villa MD Unavailable Encounter Details Date Type Department Care Team (Late st Contact Info) Description 10/30/[address] 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 Gender Identity Female 01/16/2019 8:38 AM CDT Sexual Orientation Choose not to disclose 2021 11:32 AM KINDER TEACHER documented as of this encounter Plan of Treatment Not on file documented as of this encounter Visit Diagnoses Not on filedocumented in this encounter Care Teams Nutritional Services Cook Relationship Specialty Start Date End Date Daniel Plaza MD [address] [place] [phone] PCP - General 06/29/10 12/23/20 Daniel Plaza MD [address] [place] [phone] PCP - Assigned PCP 02/05/08 06/13/18 [place] [address] [place] [address] PCP - General Family Medicine 12/24/20 Daniel Plaza MD [address] [place] [phone] Assigned PCP 01/13/12 01/03/21 Stan Barnes MD [address] [place] [address] Assigned Surgical Provider 02/01/20 07/19/20 [place] [address] [place] [address] Assigned PCP 01/04/21 Stan Barnes MD [address] [place] [address] 786885 Assigned Surgical Provider 08/30/21 08/31/23 Trent Qureshi MD [facility] [address] [place] [address] 007185 Orthopaedic Surgery 09/16/21 Sammy Villa MD 420 [facility] 96 [place], [place] 765975 Assigned Neuroscience Provider 10/01/24 documented as of this encounter
--- OUTSIDE RECORDS SUMMARY | 2024-12-03 04:58 | XMS_ITS | Encounter Summary ---
Author Organization [facility] Address [address] [place] [address] Care Team Providers Care Ultimate Hoops Scoreboard Operator Name Role Phone Daniel Plaza MD Primary Care Provider Daniel Plaza MD Unavailable [phone] Daniel Plaza MD Unavailable [phone] Stan Barnes MD Unavailable [phone] Herb Herman MD Primary Care Provider Herb Herman MD Unavailable Stan Barnes MD Unavailable [phone] Trent Qureshi MD Unavailable [phone] Sammy Villa MD Unavailable [phone] Reason for Visit * Reason Onset Date Comments Medication Request 04/22/2015 Encounter Details Date Type Department Care Team (Late st Contact Info) Description 04/22/2015 [facility] [place] [facility] [address] [address] Daniel Plaza MD [address] [address] Medication Request Social History Tobacco Use Types Packs/Day Years Used Date Smoking Tobacco: Never Smokeless Tobacco: Never Alcohol Use Standard Drinks/Week Comments No 0 (1 standard drink = 0.6 oz pur e alcohol) Comments No Sex and Gender Information Value Date Recorded Sex Assigned at Female 01/16/2019 8:38 AM CDT 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 Gender Identity Female 01/16/2019 8:38 AM CDT Sexual Orientation Choose not to disclose 2021 11:32 AM SUBMARINE OPERATOR documented as of this encounter Plan of Treatment Not on file documented as of this encounter Visit Diagnoses Diagnosis Edema, unspecified edema- Primary documented in this encounter Care Teams Ultimate Hoops Scoreboard Operator Relationship Specialty Start Date End Date Daniel Plaza MD [address] [place] [phone] PCP - General 06/29/10 12/23/20 Daniel Plaza MD [address] [place] [phone] PCP - Assigned PCP 02/05/08 06/13/18 [place] [address] [place] [address] PCP - General Family Medicine 12/24/20 Daniel Plaza MD [address] [place] [phone] Assigned PCP 01/13/12 01/03/21 Stan Barnes MD 9 [place] [address] Assigned Surgical Provider 02/01/20 07/19/20 [place] [address] [place] [address] Assigned PCP 01/04/21 Stan Barnes MD [address] [place] [address] Assigned Surgical Provider 08/30/21 08/31/23 Trent Qureshi MD [facility] [address] [place] [address] Orthopaedic Surgery 09/16/21 Sammy Villa MD [address] [place] [address] 96 [place] [address] Assigned Neuroscience Provider 10/01/24 documented as of this encounter
--- OUTSIDE RECORDS SUMMARY | 2024-12-03 04:58 | XMS_ITS | Encounter Summary ---
Author Organization [facility] Address [address] [place] [address] Care Team Providers Care Systems Test Analyst Name Role Phone Daniel Plaza MD Primary Care Provider [phone] Daniel Plaza MD Unavailable [phone] Daniel Plaza MD Unavailable Stan Barnes MD Unavailable [phone] Herb Herman MD Primary Care Provider Herb Herman MD Unavailable Stan Barnes MD Unavailable [phone] Trent Qureshi MD Unavailable [phone] Sammy Villa MD Unavailable [phone] Encounter Details Date Type Department Care Team (Late st Contact Info) Description 12/24/2013 MyC Medical Advice [facility] [address] [address] Daniel Plaza MD [address] [phone] Social History Tobacco Use Types Packs/Day Years Used Date Smoking Tobacco: Never Smokeless Tobacco: Never Alcohol Use Standard Drinks/Week Comments No 0 (1 standard drink = 0.6 oz pur e alcohol) Comments No Sex and Gender Information Value Date Recorded Sex Assigned at Female 01/16/2019 8:38 AM CDT 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 Gender Identity Female 01/16/2019 8:38 AM CDT Sexual Orientation Choose not to disclose 2021 11:32 AM COLD STRIP ROLLER documented as of this encounter Plan of Treatment Not on file documented as of this encounter Visit Diagnoses Not on filedocumented in this encounter Care Teams Systems Test Analyst Relationship Specialty Start Date End Date Daniel Plaza MD [address] [place] [phone] PCP - General 06/29/10 12/23/20 Daniel Plaza MD [address] [place] [phone] PCP - Assigned PCP 02/05/08 06/13/18 [place] [address] [place] [address] PCP - General Family Medicine 12/24/20 Daniel Plaza MD [address] [place] [phone] Assigned PCP 01/13/12 01/03/21 Stan Barnes MD [address] [place] [address] Assigned Surgical Provider 02/01/20 07/19/20 [place] [address] [place] [address] Assigned PCP 01/04/21 Stan Barnes MD [address] [place] [address] 740535 Assigned Surgical Provider 08/30/21 08/31/23 Trent Qureshi MD [facility] [address] [place] [address] 238685 Orthopaedic Surgery 09/16/21 Smamy Villa MD 420 [facility] 96 [place], [place] 385015 Assigned Neuroscience Provider 10/01/24 documented as of this encounter
--- OUTSIDE RECORDS SUMMARY | 2024-12-03 04:58 | XMS_ITS | Encounter Summary ---
Author Organization [facility] Address [address] [place] [address] Care Team Providers Care Leader Writer Name Role Phone Herb Herman MD Primary Care Provider Herb Herman MD Unavailable Stan Barnes MD Unavailable [phone] Trent Qureshi MD Unavailable [phone] Sammy Villa MD Unavailable Encounter Details Date Type Department Care Team (Late st Contact Info) Description 09/15/2021 Orders Only [facility] [address] [place] [address] Manny Petersen MD [address] [place], [place] [phone] Encounter for laboratory testing for COVID-19 virus [...] 09/15/2021 [facility] Occupat [facility] - [...] AM CDT 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 This test should be ordered for [...] COVID-19. This test was validated by the [facility] Infectious Diseases Diagnostic [facility]. This laboratory is certified under the Clinical Laboratory Improvement Amendments of 1988 (CLIA-88) as qualified to perform high and/or moderate complexity laboratory testing. Manny Petersen MD LAB - MICRO GENERAL ORDERABLES F inal Result [facility] Inf. Diseases Di[facility]. Lab 500 [facility], Room D[address] [place] [id number] [phone] documented in this encounter Visit Diagnoses Diagnosis Encounter for laboratory testing for COVID-19 virus documented in this encounter Additional Health Concerns Assessment Noted Time PHQ-9 Depression Total Score: 1 08/23/19 22 7:03 AM CDT documented as of this encounter Care Teams Leader Writer Relationship Specialty [place] [address] [place] [address] PCP - General Family Medicine 12/24/20 [place] [address] [place] [address] Assigned PCP 01/04/21 Stan Barnes MD [address] [place] [address] Assigned Surgical Provider 08/30/21 08/31/[address] [facility] [address] [address] Orthopaedic Surgery 09/16/21 Sammy Villa MD [address] [place] [address] 96 [place], [place] 989835 Assigned Neuroscience Provider 10/01/24 documented as of this encounter
[2024-12-03 05:04] VITALS: BP 105/54; PULSE 91; RESP 18; TEMP 36.7; O2SAT 96; BMI 37.0
--- NOTE | 2024-12-03 05:28 | CRLHL7_ITS ---
For Patients: As a result of the Century Cures Act, medical imaging exams and procedure reports are released immediately into your electronic medical record. You may view this report before your referring provider. If you have questions, please contact your health care provider. INDICATION: Bilateral leg swelling COMPARISON: None. TECHNIQUE: Sood-scale, color, and duplex Doppler imaging of the bilateral lower extremity veins. Compression and augmentation attempted where anatomically and clinically feasible. FINDINGS: Laterality: Bilateral Examined veins: Common femoral, proximal deep femoral, superficial femoral, popliteal, peroneal, posterior tibial Proximal greater saphenous The examined veins are patent with normal grayscale appearance and normal compressibility where anatomically feasible. Normal color Doppler flow. Normal venous waveforms on duplex Doppler ultrasound with normal augmentation. IMPRESSION: No deep vein thrombosis in either lower extremity. Dictated by Rachelle Whaley MD @ 12/03/2024 7:22:20 AM (Electronically Signed)
--- NOTE | 2024-12-03 05:35 | ED.EXTPRO ---
HPI - Extremity Problem General Date Seen: 12/03/24 Chief complaint: Lower Extremity Swelling Stated complaint: swollen legs, sore on butt Time Seen by Provider: 12/03/24 05:12 Source: patient Mode of arrival: ambulatory Limitations: no limitations History of Present Illness HPI Narrative: Patient is a 79-year-old female who presents here with lower extremity edema, and swelling. She is on Lasix for this, was increased and now is decreased this dosage. She does not have any shortness of breath associated with this, she has no cough. She tells me she is not drinking a lot of fluids. She had echo done in the last couple months that showed a normal ejection fraction, her last creatinine done 2 days ago was 1.8. The swelling is symmetrical in both of her extremities, not him 1 more than the other. Also says she has a red spot on her butt. It hurts. No fevers no chills. MD Complaint: extremity swelling Related Data Home Medications ?Medication ?Instructions ?Recorded ?Confirmed amitriptyline 25 mg tablet 25 mg PO QPM 01/31/24 11/29/24 ergocalciferol (vitamin D2) 1,250 1,250 mcg PO .every week 01/31/24 11/29/24 mcg (50,000 unit) capsule levothyroxine 137 mcg tablet 137 mcg PO DAILY 01/31/24 11/29/24 metformin 1,000 mg tablet 1,000 mg PO BID 01/31/24 11/29/24 omeprazole 20 mg capsule,delayed 20 mg PO QPM 01/31/24 11/29/24 release furosemide 20 mg tablet (Lasix) 40 mg PO QAM 11/29/24 Previous Rx's ?Medication ?Instructions ?Recorded aspirin 81 mg tablet 81 mg PO DAILY #90 tabs 10/03/24 clopidogrel 75 mg tablet 75 mg PO DAILY #30 tabs 10/04/24 ezetimibe 10 mg tablet (Zetia) 10 mg PO DAILY #90 tabs 10/23/24 lisinopril 20 1 tab PO DAILY #90 tabs 11/07/24 mg-hydrochlorothiazide 25 mg tablet docusate sodium 50 mg capsule 50 mg PO BID #60 caps 11/15/24 hydrocodone 5 mg-acetaminophen 325 1 - 2 tab PO Q6-8H PRN pain #30 11/21/24 mg tablet tabs nystatin 100,000 unit/gram topical 1 applic topical BID #30 grams 12/03/24 cream Allergies Allergy/AdvReac Type Severity Reaction Status Date / Time atorvastatin Allergy Unknown Verified 11/29/24 14:51 niacin Allergy Unknown Verified 11/29/24 14:51 piroxicam Allergy Unknown Verified 11/29/24 14:51 pravastatin Allergy Unknown Verified 11/29/24 14:51 rosuvastatin Allergy Unknown Verified 11/29/24 14:51 simvastatin Allergy Unknown Verified 11/29/24 14:51 doxycycline Allergy Verified 11/29/24 14:51 erythromycin base Allergy Verified 11/29/24 14:51 morphine Allergy Verified 11/29/24 14:51 Review of Systems Status of ROS: Reports: 10 or more systems reviewed and unremarkable except as noted in History and below [facility] Medical History Cholelithiasis ?K80.20 - Calculus of gallbladder without cholecystitis without obstruction (ICD-10) Cerebrovascular accident ?I63.9 - Cerebral infarction, unspecified (ICD-10) Edema ?R60.9 - Edema, unspecified (ICD-10) Hyperlipidemia ?E78.5 - Hyperlipidemia, unspecified (ICD-10) Major 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 (12/22/15) ?F32.5 - Major depressive disorder, single episode, in full remission (ICD-10) Poor balance (05/20/23) ?R26.89 - Other abnormalities of gait and mobility (ICD-10) Spinal stenosis of lumbar region with neurogenic claudication (03/20/15) ?M48.062 - Spinal stenosis, lumbar region with neurogenic claudication (ICD-10) Lumbar radiculopathy ?M54.16 - Radiculopathy, lumbar region (ICD-10) Lumbosacral radiculitis ?M54.17 - Radiculopathy, lumbosacral region (ICD-10) Lumbar spondylosis ?M47.816 - Spondylosis without myelopathy or radiculopathy, lumbar region (ICD-10) Obesity (BMI 30-39.9) ?E66.9 - Obesity, unspecified (ICD-10) Chronic kidney disease, stage 3a ?N18.31 - Chronic kidney disease, stage 3a (ICD-10) Insomnia ?G47.00 - Insomnia, unspecified (ICD-10) Acquired hypothyroidism ?E03.9 - Hypothyroidism, unspecified (ICD-10) 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 - Stenosis of larynx (ICD-10) Diabetes mellitus type 2, controlled ?E11.9 - Type 2 diabetes mellitus without complications (ICD-10) Vitamin D deficiency ?E55.9 - Vitamin D deficiency, unspecified (ICD-10) Essential hypertension ?I10 - Essential (primary) hypertension (ICD-10) Surgical History S/P total hip arthroplasty (09/21/21) ?Z96.649 - Presence of unspecified artificial hip joint (ICD-10) Social History What is your current living situation?: I presently have a place to live Problems where you live: no known problems Problems where you live details: NA In the past 12 months, utilities in danger of being shut off: no In past 12 months, lack of transportation kept you from medical appts, meetings, work, or getting things needed for daily living: no In the past 12 mos, have been you worried that your food would run out before you had money to buy more?: never true In the past 12 mos, the food you bought just didn't last and you didn't have money to buy more?: never true Highest level of school completed/degree received: Master's degree Smoking Status: Never smoker Do you use any of these nicotine containing products: None Second hand tobacco smoke exposure: No How often do you have a drink containing alcohol: never How often do you have six or more drinks on one occasion: Never AUDIT-C Alcohol total score: 0 Non-prescribed substance use: denies use Caffeine: Yes (Diet Pepsi, Daily) How often does anyone, including family, friends and others, physically hurt you: never How often does anyone, including family, friends and others, insult or talk down to you: never How often does anyone, including family, friends and others, threaten you with harm: never How often does anyone, including family, friends and others, scream or curse at you: never service: No Exam Narrative: Exam Narrative: On examination she is talking normally in the room. She is able lie flat. Chest is good air entry bilaterally no wheezing crackles noted heart sounds are normal, her extremities bilaterally shows symmetrical 2+ pitting edema of the lower extremities. With the nurse Saniya present, she has yeast dermatitis of her gluteal folds. Const: Vital Signs, click to edit/add: Vital Signs - 24 hr 12/03/24 05:04 Temperature 98.1 F Pulse Rate [Pulse Oximeter] 91 Respiratory Rate 18 Blood Pressure [Le ft Upper Arm] 105/54 L Pulse Oximetry 96 Oxygen Delivery Me thod Room Air Documenting provider has reviewed patient's vital signs: yes Common normals: no apparent distress, oriented x3, alert and well nourished Nutritional appearance: obese Neuro: Common normals: oriented x3 Sensorium/orientation: alert Course Course ED Course: I discussed with the patient, by my review of her ultrasound is negative, will sign over my partner to review the final ultrasound results. I think using her compression stockings along with increasing the Lasix, she does have the chronic renal insufficiency. I did tried of text call her primary care physician, my partner will also do this. And follow-up will need to be done. In further workup for venous insufficiency. Her laboratory work was reassuring. Vital Signs Vital signs: Initial Vital Signs Temperature 98.1 F 12/03/24 05:04 Temperature Source Temporal Artery Scan 12/03/24 05:04 Pulse Rate 91 12/03/24 05:04 Respiratory Rate 18 12/03/24 05:04 Blood Pressure 105/54 L 12/03/24 05:04 Blood Pressure Mean 71 12/03/24 05:04 Blood Pressure Position Sitting 12/03/24 05:04 Pulse Oximetry 96 12/03/24 05:04 Oxygen Delivery Method Room Air 12/03/24 05:04 Vital Signs Temperature 98.1 F 12/03/24 05:04 Pulse Rate 91 12/03/24 05:04 Respiratory Rate 18 12/03/24 05:04 Blood Pressure 105/54 L 12/03/24 05:04 Pulse Oximetry 96 12/03/24 05:04 Oxygen Delivery Method Room Air 12/03/24 05:04 Temperature 98.1 F 12/03/24 05:04 Pulse Rate 91 12/03/24 05:04 Respiratory Rate 18 12/03/24 05:04 Blood Pressure 105/54 L 12/03/24 05:04 Pulse Oximetry 96 12/03/24 05:04 Oxygen Delivery Method Room Air 12/03/24 05:04 Medications Administered Medications: Generic Name Dose Route Start Last Admin Trade Name [place] PRN Reason Stop Dose Admin Nystatin 1 applic 12/03/24 09:00 12/03/24 05:54 Nystatin Cream 30 Gm TOPICAL 1 applic TID EDEL Administration MDM - Extremity (Nontraumatic) MDM Narrative Medical decision making narrative: We will rule out a blood clot, which I think is unlikely given the presentation but still. Is a would have to be bilateral. I will do some basic labs. We will get her some nystatin cream. Medical Records Attestation: I reviewed the patient's medical records. Lab Data Labs: Lab Results 12/03/24 Range/Units 05:45 Sodium 131 L (135-149) mmol/L Potassium 5.2 H (3.6-5.1) mmol/L Chloride 100 (96-114) mmol/L Carbon Dioxide 20 (20-32) mmol/L Anion Gap 11 (7-15) mEq/L BUN 112 H (7-30) mg/dL Creatinine 2.2 H (0.5-1.5) mg/dL Estimated Creat Clear 17.71 Estimated GFR 23 ml/min Glucose 144 H (60-115) mg/dL Calcium 10.1 (8.4-10.6) mg/dL NT-Pro-B Natriuret Pep 115 (See Note) pg/mL Imaging Data Venous ultrasound: Radiologist's impression: [place] [address] Diagnostic Imaging Report Patient: Angela Lamar MR#: [id number] : 1945 Acct:[id number] Loc: ED Service Date: 12/03/[address]: Ordering Physician: Esdras Bright M.D. Date of Service: 12/03/24 Procedure(s): US venous LE BI Accession Number(s): [id number] cc: Miki Ponce M.D.; Esdras Bright M.D.~ For Patients: As a result of the Cures Act, medical imaging exams and procedure reports are released immediately into your electronic medical record. You may view this report before your referring provider. If you have questions, please contact your health care provider. INDICATION: Bilateral leg swelling COMPARISON: None. TECHNIQUE: Sood-scale, color, and duplex Doppler imaging of the bilateral lower extremity veins. Compression and augmentation attempted where anatomically and clinically feasible. FINDINGS: Laterality: Bilateral Examined veins: Common femoral, proximal deep femoral, superficial femoral, popliteal, peroneal, posterior tibial Proximal greater saphenous The examined veins are patent with normal grayscale appearance and normal compressibility where anatomically feasible. Normal color Doppler flow. Normal venous waveforms on duplex Doppler ultrasound with normal augmentation. IMPRESSION: No deep vein thrombosis in either lower extremity. Dictated by Rachelle Whaley MD @ 12/03/2024 7:22:20 AM (Electronically Signed) Discharge Plan Discharge Clinical Impression: Edema, Yeast detected Patient Disposition: Home, Self-Care Condition: Stable Instructions: Leg Edema (ED), Edema (ED) Additional Instructions: home,rest and medications for the two problems. Cream and increase lasix to BID 40 mg, will need followup labs and maybe further workup for venous insuffiency. Use the cream as directed. Follow-up with your doctor within the week. Use your compression stockings, Activity Level: Light activity Prescriptions: New nystatin 100,000 unit/gram cream 1 applic topical BID Qty: 30 1RF No Action ezetimibe [Zetia] 10 mg tablet 10 mg PO DAILY Qty: 90 3RF hydrocodone-acetaminophen 5-325 mg tablet 1 - 2 tab PO Q6-8H PRN (Reason: pain) Qty: 30 0RF furosemide [Lasix] 20 mg tablet 40 mg PO QAM lisinopril-hydrochlorothiazide 20-25 mg tablet 1 tab PO DAILY Qty: 90 3RF docusate sodium 50 mg capsule 50 mg PO BID Qty: 60 0RF levothyroxine 137 mcg tablet 137 mcg PO DAILY amitriptyline 25 mg tablet 25 mg PO QPM metformin 1,000 mg tablet 1,000 mg PO BID omeprazole 20 mg capsule,delayed release(DR/EC) 20 mg PO QPM ergocalciferol (vitamin D2) 1,250 mcg (50,000 unit) capsule 1,250 mcg PO .every week aspirin 81 mg tablet 81 mg PO DAILY Qty: 90 0RF clopidogrel 75 mg tablet 75 mg PO DAILY Qty: 30 2RF Follow Up/Referrals: Miki Ponce MD [Primary Care Provider, Internal Medicine] Stand Alone Forms: [employer] Info Instructions
--- NOTE | 2024-12-03 05:40 | PC.NURSE ---
nursing-called to implementation project manager MD for buttock and lexie area exam. Able to assist with rolling noting a very excoriated area from top of coccyx to lexie area. Noted small amount of sero-sang drainage on underwear. Good pericare given with pt crying out because of pain. Nystatin cream applied with gauze to keep cheeks and new underwear provided. All cares explained. Pt states she has had a stroke with numbness in right hand of 3 fingers, needs back surgery and having a test this week to check her gallbladder.
[2024-12-03] MEDS: NYSTATIN CREAM 30 GM 1 APPLIC TOPICAL (05:54)
[2024-12-03 06:03] LABS: Chloride* 100 mmol/L (96-114); Potassium* 5.2 mmol/L (3.6-5.1); Sodium* 131 mmol/L (135-149)
[2024-12-03 06:06] LABS: Blood Urea Nitrogen* 112 mg/dL (7-30); Creatinine* 2.2 mg/dL (0.5-1.5); Est. Creatinine Clearance* 17.71; Estimated Glomerular Filt Rate 23 ml/min
[2024-12-03 06:07] LABS: Anion Gap 11 mEq/L (7-15); Calcium* 10.1 mg/dL (8.4-10.6); Carbon Dioxide* 20 mmol/L (20-32); Glucose* 144 mg/dL (60-115)
[2024-12-03 06:17] LABS: NT Pro B Type NatriureticPept* 115 pg/mL (See Note)
== END 2024-12-03 08:21 | disposition home or self-care (01) ==
PROVIDERS: Family Medicine; Emergency Provider Internal Medicine; PCP Internal Medicine
DX: R60.0 Localized edema (principal); B37.9 Candidiasis, unspecified; R14.0 Abdominal distension (gaseous)
CPT/HCPCS: 36415; 80048; 83880; 93970; 99284; A9270

== ENCOUNTER 2024-12-04 11:39 | Outpatient (CLI) | payer MEDICARE, OTHER, SELFPAY ==
--- NOTE | 2024-12-04 12:00 | CRLHL7_ITS ---
For Patients: As a result of the 21st Century Cures Act, medical imaging exams and procedure reports are released immediately into your electronic medical record. You may view this report before your referring provider. If you have questions, please contact your health care provider. INDICATION: 79-year-old woman with history of abdominal distension. TECHNIQUE: 7.7 MCi Tc 99m Mebrofenin were administered intravenously and serial static images were obtained over the anterior abdomen over 60 minutes, demonstrating radiotracer uptake within the gallbladder and demonstrating tracer exiting into the small bowel. Subsequently, 1.9 Micrograms cholecystokinin was administered intravenously and the anterior abdomen was serially imaged with static views for another 30 minutes. COMPARISON: Abdominal ultrasound 11/14/2024. FINDINGS: Initial 60 minutes images: There is normal radionuclide activity in the liver, common bile duct, gallbladder and small bowel. There is no evidence for cystic or common duct obstruction or intrinsic liver disease. After administration of cholecystokinin, minimal tracer is demonstrated exiting the gallbladder into the common bile duct and small bowel, with substantial residual tracer in the gallbladder. The gallbladder ejection fraction measures 10 %. Normal range for GB EF: Equal to or greater than 35%. IMPRESSION: 1. No evidence of cystic duct obstruction to support acute cholecystitis. No evidence of common bile duct obstruction. 2. Gallbladder ejection fraction measures 10 %, below normal limits. Findings are nonspecific, but can be seen with gallbladder dysfunction. Dictated by García Gresham MD @ 12/04/2024 7:24:05 PM (Electronically Signed)
== END 2024-12-04 11:40 | disposition home or self-care (01) ==
LOC: NM 11:40
PROVIDERS: PCP Internal Medicine; Visit Provider Internal Medicine
DX: R14.0 Abdominal distension (gaseous) (principal)
CPT/HCPCS: 78227; A9537; J2805

== ENCOUNTER 2024-12-05 13:57 | Inpatient (IN) | payer MEDICARE, OTHER, SELFPAY ==
[2024-12-05] VITALS (20 sets, daily range): BP systolic 72–137; BP diastolic 27–87; PULSE 72–90; RESP 12–20; TEMP 35.8–36.5; O2SAT 94–99; BMI 36.8; BMI 36.9
--- OUTSIDE RECORDS SUMMARY | 2024-12-05 14:00 | XMS_ITS | Encounter Summary ---
Author Organization [facility] Address [address] [place] [id number] Care Team Providers Care Wool Sorter Name Role Phone Daniel Torres MD Primary Care Provider Daniel Torres MD Unavailable Daniel Torres MD Unavailable Stan Barnes MD Unavailable [phone] Herb Herman MD Primary Care Provider [phone] Herb Herman MD Unavailable Stan Barnes MD Unavailable [phone] Trent Qureshi MD Unavailable [phone] Sammy Villa MD Unavailable Encounter Details Date Type Department Care Team (Late st Contact Info) Description 09/08/2007 [facility] [place] [facility] [address] [address] Daniel Torres MD [address] [phone] DJD ; HYPERLIPIDEMIA Social History Tobacco Use Types Packs/Day Years Used Date Smoking Tobacco: Never Alcohol Use Standard Drinks/Week Comments Yes 0 (1 standard drink = 0.6 oz pur e alcohol) social Comments No Sex and Gender Information Value Date Recorded Sex Assigned at Female 01/16/2019 8:38 AM CDT Legal Sex Female 3:11 AM SPECIAL PROJECTS MANAGER Gender Identity Female 01/16/2019 8:38 AM CDT Sexual Orientation Choose not to disclose 2021 11:32 AM SPECIAL PROJECTS MANAGER documented as of this encounter Miscellaneous Notes * Telephone Encounter - Vero Carr - 09/08/2007 2:01 PM [facility] Original authorizing provider: Savanna VILLALOBOS would like a refill of the following medications: SIMVASTATIN 80 MG OR TABS [DANIEL TORRES M.D.] CELEBREX 200 MG OR CAPS [DANIEL TORRES M.D.] Preferred pharmacy: [facility] Comment: I have [...] hyperlipidemia documented in this encounter Care Teams Wool Sorter Relationship Specialty Start Date End Date Daniel Torres MD [address] [place] [phone] PCP - General 06/29/10 12/23/20 Daniel Torres MD [address] [place] [phone] PCP - Assigned PCP 02/05/08 06/13/18 [place] [address] [place] [address] PCP - General Family Medicine 12/24/20 Daniel Torres MD [address] [place] [phone] Assigned PCP 01/13/12 01/03/21 Stan Barnes MD [address] [place] [address] Assigned Surgical Provider 02/01/20 07/19/20 [place] [address] [place] [address] Assigned PCP 01/04/21 Stan Barnes MD [address] [place] [address] Assigned Surgical Provider 08/30/21 08/31/23 Trent Qureshi MD [facility] [address] [id number] Orthopaedic Surgery 09/16/21 Sammy Villa MD [address] [facility] [address] [place] [address] Assigned Neuroscience Provider 10/01/24 documented as of this encounter
--- OUTSIDE RECORDS SUMMARY | 2024-12-05 14:00 | XMS_ITS | Encounter Summary ---
Author Organization [facility] Address [address] [place] [address] Care Team Providers Care Fast Food Shift Lead Name Role Phone Daniel Plaza MD Primary Care Provider Daniel Plaza MD Unavailable Daniel Plaza MD Unavailable [phone] Stan Barnes MD Unavailable [phone] Herb Herman MD Primary Care Provider Herb Herman MD Unavailable Stan Barnes MD Unavailable [phone] Trent Stratton MD Unavailable [phone] Sammy Villa MD Unavailable Encounter Details Date Type Department Care Team (Late st Contact Info) Description 03/01/2003 [facility] [address] [address] Daniel Plaza MD [address] [phone] OP REPT (Primary Dx) Social History Tobacco Use Types Packs/Day Years Used Date Smoking Tobacco: Never Passive Smoke Exposure: Never Smokeless Tobacco: Never Alcohol Use Standard Drinks/Week Comments Never 0 (1 standard drink = 0.6 oz pur e alcohol) Comments No Sex and Gender Information Value Date Recorded Sex Assigned at Female 01/16/2019 8:38 AM CDT Legal Sex Female 3:11 AM GROUNDS MAINTENANCE MANAGER Gender Identity Female 01/16/2019 8:38 AM CDT Sexual Orientation Choose not to disclose 2021 11:32 AM GROUNDS MAINTENANCE MANAGER 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 file documented as of this encounter Progress Notes * 03/01/2003 11:59 PM [id number] 00:00 Operative Report-[facility] TRENT STRATTON () [Entered: 00:00 Transcr iption ([facility])] 1st ASS'T: Alexander Gamble CST 2nd [...] STRATTON MD D: 06:24 MT: sb Document: [id number] [place], [place] Name: CEFERINOAMILCARMICHAEL OPERATIVE REPORT Page 2 of 2 LCN: 57 DSC: [place], [place] Name: WILLIAMPARIS MICHAEL Saba MR#: : Procedure Date: -98 1945 03/01/2003 Surgeon: TRENT STRATTON MD OPERATIVE REPORT Page 1 of 2 Electronically filed by Hu Porter 03/06/2003 10:43 AM documented in this encounter Plan of Treatment Not on file documented as of this encounter Visit Diagnoses Diagnosis OP REPT- Primary documented in this encounter Care Teams Fast Food Shift Lead Relationship Specialty Start Date End Date Daniel Plaza MD [address] [place] [phone] PCP - General 06/29/10 12/23/20 Daniel Plaza MD [address] [place] [phone] PCP - Assigned PCP 02/05/08 06/13/18 [place] [address] [place] [address] PCP - General Family Medicine 12/24/20 Daniel Plaza MD [address] [place] [phone] Assigned PCP 01/13/12 01/03/21 Stan Barnes MD [address] [place] [address] Assigned Surgical Provider 02/01/20 07/19/20 [place] [address] [place] [address] Assigned PCP 01/04/21 Stan Barnes MD [address] [place] [address] Assigned Surgical Provider 08/30/21 08/31/23 Trent Stratton MD [facility] [address] [place] [address] Orthopaedic Surgery 09/16/21 Sammy Villa MD [address] [place] [address] Assigned Neuroscience Provider 10/01/24 documented as of this encounter
--- OUTSIDE RECORDS SUMMARY | 2024-12-05 14:00 | XMS_ITS | Encounter Summary ---
Author Organization [facility] Address [address] [place] [address] Care Team Providers Care Home Health Care Respiratory Therapist Name Role Phone Daniel Plaza MD Primary Care Provider [phone] Daniel Plaza MD Unavailable [phone] Daniel Plaza MD Unavailable Stan Barnes MD Unavailable [phone] Herb Herman MD Primary Care Provider Herb Herman MD Unavailable Satn Barnes MD Unavailable [phone] Trent Qureshi MD Unavailable [phone] Sammy Villa MD Unavailable Encounter Details Date Type Department Care Team (Late st Contact Info) Description 06/23/2011 [facility] Medical Advice [facility] [address] [address] Daniel Plaza MD [address] [phone] Social History Tobacco Use Types Packs/Day Years Used Date Smoking Tobacco: Never Smokeless Tobacco: Never Alcohol Use Standard Drinks/Week Comments No 0 (1 standard drink = 0.6 oz pur e alcohol) Comments No Sex and Gender Information Value Date Recorded Sex Assigned at Female 01/16/2019 8:38 AM CDT Legal Sex Female 3:11 AM BLUEPRINT MACHINE OPERATOR Gender Identity Female 01/16/2019 8:38 AM CDT Sexual Orientation Choose not to disclose 2021 11:32 AM BLUEPRINT MACHINE OPERATOR documented as of this encounter Plan of Treatment Not on file documented as of this encounter Visit Diagnoses Not on filedocumented in this encounter Care Teams Home Health Care Respiratory Therapist Relationship Specialty Start Date End Date Daniel Plaza MD [address] [place] [phone] PCP - General 06/29/10 12/23/20 Daniel Plaza MD [address] [place] [phone] PCP - Assigned PCP 02/05/08 06/13/18 [place] [address] [place] [address] PCP - General Family Medicine 12/24/20 Daniel Plaza MD [address] [place] [phone] Assigned PCP 01/13/12 01/03/21 Stan Barnes MD [address] [place] [address] Assigned Surgical Provider 02/01/20 07/19/20 [place] [address] [place] [address] Assigned PCP 01/04/21 Stan Barnes MD [address] [place] [address] 757185 Assigned Surgical Provider 08/30/21 08/31/23 Trent Qureshi MD [facility] [address] [place] [address] Orthopaedic Surgery 09/16/21 Sammy Villa MD 420 [facility] [address] [place], [place] [address] Assigned Neuroscience Provider 10/01/24 documented as of this encounter
--- OUTSIDE RECORDS SUMMARY | 2024-12-05 14:00 | XMS_ITS | Encounter Summary ---
Author Organization [place] Address [facility] [place] [address] Care Team Providers Care Cardroom Drawing Runner Name Role Phone Herb Herman MD Primary Care Provider [phone] Herb Herman MD Unavailable Stan Barnes MD Unavailable [phone] Trent Qureshi MD Unavailable [phone] Sammy Villa MD Unavailable Reason for Visit * Reason Onset Date Comments MyChart Communication 07/14/2022 Encounter Details Date Type Department Care Team (Latest Contact Info) Description 07/14/2022 MyC Medical Advice [facility] [address] [place] [address] [place] [address] [place] [address] MyChart Communication Social History Tobacco [...] How often do you attend chur or latter day services? More than 4 [...] Answer Date Recorded PHQ-2 Score 0 03/08/2022 [facility] of Occupat ional [facility] - Occupational Stress Questionnaire Answer Date [...] CDT Legal Sex Female 3:11 AM CLIENT APPLICATION SUPPORT ENGINEER Gender Identity Female 01/16/2019 8:38 AM CDT Sexual Orientation Choose not to disclose 2021 11:32 AM CLIENT APPLICATION SUPPORT ENGINEER Occupation Industry Job Start Date Job [...] Bueno RN - 07/14/2022 10:04 AM CDT SwarmBuild message sent to patient, reply requested. Virginia Bueno R.N. documented in this encounter Plan of Treatment Not on file documented as of this encounter Visit Diagnoses Not on filedocumented in this encounter Additional Health Concerns Assessment Noted Time PHQ-9 Depression Total Score: 0 03/08/20 10:26 AM CLIENT APPLICATION SUPPORT ENGINEER documented as of this encounter Care Teams Cardroom Drawing Runner Relationship Specialty [place] [address] [place] [address] PCP - General Family Medicine 12/24/20 [place] [address] [place] [address] Assigned PCP 01/04/21 Stan Barnes MD [address] [place] [address] Assigned Surgical Provider 08/30/21 08/31/23 Trent Qureshi MD [facility] [address] [place] [address] Orthopaedic Surgery 09/16/21 Sammy Villa MD [address] [place] [address] 165035 Assigned Neuroscience Provider 10/01/24 documented as of this encounter
--- OUTSIDE RECORDS SUMMARY | 2024-12-05 14:00 | XMS_ITS | Encounter Summary ---
Author Organization [place] Address [address] [place] [address] Care Team Providers Care Conveyor Feeder Offbearer Name Role Phone Daniel Plaza MD Primary Care Provider Daniel Plaza MD Unavailable Daniel Plaza MD Unavailable Stan Barnes MD Unavailable [phone] Herb Herman MD Primary Care Provider Herb Herman MD Unavailable Stan Barnes MD Unavailable [phone] Trent Qureshi MD Unavailable [phone] Sammy Villa MD Unavailable Encounter Details Date Type Department Care Team (Late st Contact Info) Description 01/31/2006 [facility] [place] [facility] [address] [address] Daniel Plaza MD [address] [phone] Social History Tobacco Use Types Packs/Day Years Used Date Smoking Tobacco: Never Alcohol Use Standard Drinks/Week Comments Yes 0 (1 standard drink = 0.6 oz pur e alcohol) social Comments No Sex and Gender Information Value Date Recorded Sex Assigned at Female 01/16/2019 8:38 AM CDT Legal Sex Female 3:11 AM COMPUTER ANIMATOR Gender Identity Female 01/16/2019 8:38 AM CDT Sexual Orientation Choose not to disclose 2021 11:32 AM COMPUTER ANIMATOR documented as of this encounter Plan of Treatment Not on file documented as of this encounter Visit Diagnoses Not on filedocumented in this encounter Care Teams Conveyor Feeder Offbearer Relationship Specialty Start Date End Date Daniel Plaza MD [address] [place] [address] PCP - General 06/29/10 12/23/20 Daniel Plaza MD [address] [place] [phone] PCP - Assigned PCP 02/05/08 06/13/18 [place] [address] [place] [address] PCP - General Family Medicine 12/24/20 Daniel Plaza MD [address] [place] [phone] Assigned PCP 01/13/12 01/03/21 Stan Barnes MD 9 [place] [address] Assigned Surgical Provider 02/01/20 07/19/20 [place] [address] [place] [address] Assigned PCP 01/04/21 Stan Barnes MD [address] [place] [address] Assigned Surgical Provider 08/30/21 08/31/23 Trent Qureshi MD [facility] [address] 458435 Orthopaedic Surgery 09/16/21 Sammy Villa MD 420 [facility] 96 [place] [address] Assigned Neuroscience Provider 10/01/24 documented as of this encounter
--- OUTSIDE RECORDS SUMMARY | 2024-12-05 14:00 | XMS_ITS | Encounter Summary ---
Author Organization [place] Address [address] [place] [address] Care Team Providers Care Shuttle Fixer Name Role Phone Daniel Plaza MD Primary Care Provider Daniel Plaza MD Unavailable Daniel Plaza MD Unavailable Stan Barnes MD Unavailable [phone] Herb Herman MD Primary Care Provider [phone] Herb Herman MD Unavailable Stan Barnes MD Unavailable [phone] Trent Qureshi MD Unavailable [phone] Sammy Villa MD Unavailable Encounter Details Date Type Department Care Team (Latest Contact Info) Description 01/24/2016 [facility] [place] [address] [address] Daniel Plaza MD [address] [address] Spinal stenosis of lumbar region [...] AM CDT Legal Sex Female 3:11 AM CONCRETING SUPERVISOR Gender Identity Female 01/16/2019 8:38 AM CDT Sexual Orientation Choose not to disclose 2021 11:32 AM CONCRETING SUPERVISOR documented as of this encounter Plan of Treatment Not on file documented as of this encounter Visit Diagnoses Diagnosis Spinal stenosis of lumbar region with neurogenic claudication- Primary Spinal stenosis, lumbar region, with neurogenic claudication documented in this encounter Additional Health Concerns Assessment Noted Time PHQ-9 Depression Total Score: 0 12/23/19 16 7:14 AM CDT documented as of this encounter Care Teams Shuttle Fixer Relationship Specialty Start Date End Date Daniel Plaza MD [address] [place] [phone] PCP - General 06/29/10 12/23/20 Daniel Plaza MD [address] [place] [phone] PCP - Assigned PCP 02/05/08 06/13/18 [place] [address] [place] [address] PCP - General Family Medicine 12/24/20 Daniel Plaza MD [address] [place] [phone] Assigned PCP 01/13/12 01/03/21 Stan Barnes MD 9 [place] [address] Assigned Surgical Provider 02/01/20 07/19/20 [place] [address] [place] [address] Assigned PCP 01/04/21 Stan Barnes MD [address] [place] [address] 318045 Assigned Surgical Provider 08/30/21 08/31/23 Trent Qureshi MD [facility] [address] [place] [address] 865515 Orthopaedic Surgery 09/16/21 Sammy Villa MD [address] [place] [address] 96 [place], [place] 708795 Assigned Neuroscience Provider 10/01/24 documented as of this encounter
--- OUTSIDE RECORDS SUMMARY | 2024-12-05 14:00 | XMS_ITS | Encounter Summary ---
Author Organization [place] Address [address] [place] [address] Care Team Providers Care Clay Thrower Name Role Phone Daniel Plaza MD Primary Care Provider Daniel Plaza MD Unavailable Daniel Plaza MD Unavailable Stan Barnes MD Unavailable [phone] Herb Herman MD Primary Care Provider Herb Herman MD Unavailable Stan Barnes MD Unavailable [phone] Trent Qureshi MD Unavailable [phone] Sammy Villa MD Unavailable [phone] Encounter Details Date Type Department Care Team (Late st Contact Info) Description 11/28/2001 [facility] [address] [address] Daniel Plaza MD [address] [phone] Social History Tobacco Use Types Packs/Day Years Used Date Smoking Tobacco: Never Assessed Comments No Sex and Gender Information Value Date Recorded Sex Assigned at Female 01/16/2019 8:38 AM CDT Legal Sex Female 3:11 AM SUSTAINABLE LANDSCAPE ARCHITECT Gender Identity Female 01/16/2019 8:38 AM CDT Sexual Orientation Choose not to disclose 2021 11:32 AM SUSTAINABLE LANDSCAPE ARCHITECT documented as of this encounter Plan of Treatment Not on file documented as of this encounter Visit Diagnoses Not on filedocumented in this encounter Care Teams Clay Thrower Relationship Specialty Start Date End Date Daniel Plaza MD [address] [place] [phone] PCP - General 06/29/10 12/23/20 Daniel Plaza MD [address] [place] [address] PCP - Assigned PCP 02/05/08 06/13/18 [place] [address] [place] [address] PCP - General Family Medicine 12/24/20 Daniel Plaza MD [address] [place] [phone] Assigned PCP 01/13/12 01/03/21 Stan Barnes MD [address] [place] [address] Assigned Surgical Provider 02/01/20 07/19/20 [place] [address] [place] [address] Assigned PCP 01/04/21 Stan Barnes MD [address] [place] [address] Assigned Surgical Provider 08/30/21 08/31/23 Trent Qureshi MD [facility] [address] [place] [address] Orthopaedic Surgery 09/16/21 Sammy Villa MD [address] [place] [address] 96 [place] [address] Assigned Neuroscience Provider 10/01/24 documented as of this encounter
--- OUTSIDE RECORDS SUMMARY | 2024-12-05 14:00 | XMS_ITS | Encounter Summary ---
Author Organization [place] Address [address] [place] [address] Care Team Providers Care Chief Technical Officer Name Role Phone Herb Herman MD Primary Care Provider Herb Herman MD Unavailable Stan Barnes MD Unavailable + [phone] Trent Qureshi MD Unavailable [phone] Sammy Villa MD Unavailable [phone] Encounter Details Date Type Department Care Team (Late st Contact Info) Description 04/18/2023 MyC Medical Advice [address] [address] Brooke Barnes Social History Tobacco [...] you attend [facility] or zoroastrianism services? More than 4 [...] Answer Date Recorded PHQ-2 Score 0 08/02/2022 [facility] of Occupat ional Health - [...] AM CDT Legal Sex Female 3:11 AM RAILROAD PASSENGER AGENT Gender Identity Female 01/16/2019 8:38 AM CDT Sexual Orientation Choose not to disclose 2021 11:32 AM RAILROAD PASSENGER AGENT Occupation Industry Job Start Date Job [...] documented as of this encounter Care Teams Chief Technical Officer Relationship Specialty [place] [address] [place] [address] PCP - General Family Medicine 12/24/20 [place] [address] [place] [address] Assigned PCP 01/04/21 Stan Banres MD [address] [place] [address] Assigned Surgical Provider 08/30/21 08/31/23 Trent Qureshi MD [facility] [address] [place] [address] Orthopaedic Surgery 09/16/21 Sammy Villa MD [address] [place] [address] Assigned Neuroscience Provider 10/01/24 documented as of this encounter
--- OUTSIDE RECORDS SUMMARY | 2024-12-05 14:00 | XMS_ITS | Encounter Summary ---
Author Organization [place] Address [facility] [place] [address] Care Team Providers Care Switch Maker Name Role Phone Herb Herman MD Primary Care Provider [phone] Herb Herman MD Unavailable Stan Barnes MD Unavailable [phone] Trent Qureshi MD Unavailable [phone] Sammy Villa MD Unavailable [phone] Encounter Details Date Type Department Care Team (Late st Contact Info) Description 08/04/2021 MyC Medical Advice [facility] [address] [place] [address] [place] [address] [place] [address] Social History Tobacco Use Types [...] Answer Date Recorded PHQ-2 Score 0 06/24/2021 [facility] of Occupat ional [...] AM CDT Legal Sex Female 3:11 AM [facility] Gender Identity Female 01/16/2019 8:38 AM CDT Sexual Orientation Choose not to disclose 2021 11:32 AM [facility] Occupation Industry Job Start Date Job End [...] Total Score: 0 06/10/19 22 7:01 AM [facility] documented as of this encounter Care Teams Switch Maker Relationship Specialty [place] [address] [place] [address] PCP - General Family Medicine 12/24/20 [place] [address] [place] [address] Assigned PCP 01/04/21 Stan Barnes MD [address] [place] [address] 765575 Assigned Surgical Provider 08/30/21 08/31/23 Trent Qureshi MD [facility] [address] [place] [address] 648925 Orthopaedic Surgery 09/16/21 Sammy Villa MD [address] [place] [address] 96 [place], [place] 485285 Assigned Neuroscience Provider 10/01/24 documented as of this encounter
--- OUTSIDE RECORDS SUMMARY | 2024-12-05 14:00 | XMS_ITS | Encounter Summary ---
Author Organization [place] Address [address] [place] [address] Care Team Providers Care Project Management Analyst Name Role Phone Daniel Plaza MD Primary Care Provider Daniel Plaza MD Unavailable Daniel Plaza MD Unavailable Stan Barnes MD Unavailable [phone] Herb Herman MD Primary Care Provider Herb Herman MD Unavailable Stan Barnes MD Unavailable [phone] Trent Qureshi MD Unavailable [phone] Sammy Villa MD Unavailable [phone] Reason for Visit * Reason Onset Date Comments Sinus Problem 04/06/2017 Encounter Details Date Type Department Care Team (Late st Contact Info) Description 04/06/2017 MyC Medical Advice [facility] [address] [address] Daniel Plaza MD [address] [address] Sinus Problem Social History Tobacco Use Types Packs/Day Years Used Date Smoking Tobacco: Never Smokeless Tobacco: Never Alcohol Use Standard Drinks/Week Comments No 0 (1 standard drink = 0.6 oz pur e alcohol) Comments No Sex and Gender Information Value Date Recorded Sex Assigned at Female 01/16/2019 8:38 AM CDT Legal Sex Female 3:11 AM BARREL RIBS SOLDERER Gender Identity Female 01/16/2019 8:38 AM CDT Sexual Orientation Choose not to disclose 2021 11:32 AM BARREL RIBS SOLDERER documented as of this encounter Plan of Treatment Not on file documented as of this encounter Visit Diagnoses Diagnosis Acute sinusitis with symptoms > 10 days- Primary Acute sinusitis, unspecified documented in this encounter Additional Health Concerns Assessment Noted Time PHQ-9 Depression Total Score: 0 12/23/19 16 7:14 AM CDT documented as of this encounter Care Teams Project Management Analyst Relationship Specialty Start Date End Date Daniel Plaza MD [address] [place] [address] PCP - General 06/29/10 12/23/20 Daniel Plaza MD [address] [place] [phone] PCP - Assigned PCP 02/05/08 06/13/18 [place] [address] [place] [address] PCP - General Family Medicine 12/24/20 Daniel Plaza MD [address] [place] [phone] Assigned PCP 01/13/12 01/03/21 Stan Barnes MD 9 [place] [address] Assigned Surgical Provider 02/01/20 07/19/20 [place] [address] [place] [address] Assigned PCP 01/04/21 Stan Barnes MD [address] [place] [address] 764915 Assigned Surgical Provider 08/30/21 08/31/23 Trent Qureshi MD [facility] [address] [place] [address] 916155 Orthopaedic Surgery 09/16/21 Sammy Villa MD [address] [place] [address] 96 [place], [place] 471325 Assigned Neuroscience Provider 10/01/24 documented as of this encounter
--- OUTSIDE RECORDS SUMMARY | 2024-12-05 14:00 | XMS_ITS | Encounter Summary ---
Author Organization [place] Address [address] [place] [address] Care Team Providers Care Buffing Wheel Former Automatic Name Role Phone Herb Herman MD Primary Care Provider [phone] Herb Herman MD Unavailable Stan Barnes MD Unavailable + [phone] Trent Qureshi MD Unavailable [phone] Sammy Villa MD Unavailable [phone] Encounter Details Date Type Department Care Team (Late st Contact Info) Description 07/16/2022 [facility] [place] [address] [address] Diane Moreno RN Social History [...] [facility] of Occupat ional [facility] - Occupational Stress Questionnaire Answer Date Recorded [...] AM CDT Legal 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 Gender Identity Female 01/16/2019 8:38 AM CDT Sexual Orientation Choose not to disclose 2021 11:32 AM FAST FOOD DELIVERY DRIVER Occupation Industry Job Start Date Job [...] Total Score: 0 03/08/20 22 10:26 AM FAST FOOD DELIVERY DRIVER documented as of this encounter Care Teams Buffing Wheel Former Automatic Relationship Specialty [place] [address] [place] [address] PCP - General Family Medicine 12/24/20 [place] [address] [place] [address] Assigned PCP 01/04/21 Stan Barnes MD [address] [place] [address] [phone] Assigned Surgical Provider 08/30/21 08/31/23 Trent Qureshi MD [facility] [address] 758035 Orthopaedic Surgery 09/16/21 Sammy Villa MD 420 [facility] 96 [place], [place] 022[address] Assigned Neuroscience Provider 10/01/24 documented as of this encounter
--- OUTSIDE RECORDS SUMMARY | 2024-12-05 14:00 | XMS_ITS | Encounter Summary ---
Author Organization [place] Address [address] [place] [address] Care Team Providers Care Colorman Name Role Phone Herb Herman MD Primary Care Provider Herb Herman MD Unavailable Stan Barnes MD Unavailable + [phone] Trent Qureshi MD Unavailable [phone] Sammy Villa MD Unavailable [phone] Encounter Details Date Type Department Care Team (Late st Contact Info) Description 06/27/2023 MyC Medical Advice [address] [address] Soraya Hutchinson CMA Social History [...] often do you attend [facility] or worship services? 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 file documented as of this encounter Plan of Treatment Not on file documented as of this encounter Visit Diagnoses Not on filedocumented in this encounter Additional Health Concerns Assessment Noted Time PHQ-9 Depression Total Score: 0 05/02/19 24 10:52 AM INTERMEDIATE FRAME TENDER documented as of this encounter Care Teams Colorman Relationship Specialty [place] [address] [place] [address] PCP - General Family Medicine 12/24/20 [place] [address] [place] [address] Assigned PCP 01/04/21 Stan Barnes MD 909 [place] [address] Assigned Surgical Provider 08/30/21 08/31/23 Trent Qureshi MD [facility] [address] [address] Orthopaedic Surgery 09/16/21 Sammy Villa MD [address] [place] [address] 96 [place], [place] 106475 Assigned Neuroscience Provider 10/01/24 documented as of this encounter
--- OUTSIDE RECORDS SUMMARY | 2024-12-05 14:00 | XMS_ITS | Encounter Summary ---
Author Organization [place] Address [address] [place] [address] Care Team Providers Care Commissary Agent Name Role Phone Daniel Plaza MD Primary Care Provider Daniel Plaza MD Unavailable Daniel Plaza MD Unavailable [phone] Stan Barnes MD Unavailable [phone] Herb Herman MD Primary Care Provider Herb Herman MD Unavailable Stan Barnes MD Unavailable [phone] Trent Qureshi MD Unavailable [phone] Sammy Villa MD Unavailable Encounter Details Date Type Department Care Team (Late st Contact Info) Description 05/18/2007 MyC Medical Advice [facility] [address] [address] Daniel Plaza MD [address] [phone] Social History Tobacco Use Types Packs/Day Years Used Date Smoking Tobacco: Never Alcohol Use Standard Drinks/Week Comments Yes 0 (1 standard drink = 0.6 oz pur e alcohol) social Comments No Sex and Gender Information Value Date Recorded Sex Assigned at Female 01/16/2019 8:38 AM CDT Legal Sex Female 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 Gender Identity Female 01/16/2019 8:38 AM CDT Sexual Orientation Choose not to disclose 2021 11:32 AM SAFETY AND SECURITY OFFICER documented as of this encounter Plan of Treatment Not on file documented as of this encounter Visit Diagnoses Not on filedocumented in this encounter Care Teams Commissary Agent Relationship Specialty Start Date End Date Daniel Plaza MD [address] [place] [phone] PCP - General 06/29/10 12/23/20 Daniel Plaza MD [address] [place] [phone] PCP - Assigned PCP 02/05/08 06/13/18 [place] [address] [place] [address] PCP - General Family Medicine 12/24/20 Daniel Plaza MD [address] [place] [phone] Assigned PCP 01/13/12 01/03/21 Stan Barnes MD 9 [place] [address] Assigned Surgical Provider 02/01/20 07/19/20 [place] [address] [place] [address] Assigned PCP 01/04/21 Stan Barnes MD [address] [place] [address] Assigned Surgical Provider 08/30/21 08/31/23 Trent Qureshi MD [facility] [address] 1854[address] Orthopaedic Surgery 09/16/21 Sammy Villa MD 420 [facility] 96 [place] [address] Assigned Neuroscience Provider 10/01/24 documented as of this encounter
--- OUTSIDE RECORDS SUMMARY | 2024-12-05 14:00 | XMS_ITS | Encounter Summary ---
Author Organization [place] Address [address] [place] [address]. [place] [address] Care Team Providers Care Senior Java Programmer Name Role Phone Herb Herman MD Primary Care Provider [phone] Herb Herman MD Unavailable Trent Qureshi MD Unavailable [phone] Sammy Villa MD Unavailable Encounter Details Date Type Department Care Team (Late st Contact Info) Description 10/24/2024 [facility] [place] [address], [address] [place] [address] Ana Larsen, IRENE Social History Tobacco [...] Answer Date Recorded PHQ-2 Score 6 10/08/2024 [facility] of Occupat ional Health - Occupational Stress [...] AM CDT Legal Sex Female 3:11 AM MOUNTER SMOKING PIPE Gender Identity Female 01/16/2019 8:38 AM CDT Sexual Orientation Choose not to disclose 2021 11:32 AM MOUNTER SMOKING PIPE Occupation Industry Job Start Date Job End [...] as of this encounter Care Teams Senior Java Programmer Relationship Specialty [place] [address] [place] [address] PCP - General Family Medicine 12/24/20 [place] [address] [place] [address] Assigned PCP 01/04/21 Trent Qureshi MD [facility] [address] [place] [address] 779215 Orthopaedic Surgery 09/16/21 Sammy Villa MD [address] [place] [address] Assigned Neuroscience Provider 10/01/24 documented as of this encounter
--- OUTSIDE RECORDS SUMMARY | 2024-12-05 14:00 | XMS_ITS | Encounter Summary ---
Author Organization [facility] Address [address] [place] [address] Care Team Providers Care Dental Laboratory Technology Teacher Name Role Phone Daniel Plaza MD Primary Care Provider Daniel Plaza MD Unavailable Daniel Plaza MD Unavailable [phone] Stan Barnes MD Unavailable [phone] Herb Herman MD Primary Care Provider Herb Herman MD Unavailable Stan Barnes MD Unavailable [phone] Trent Qureshi MD Unavailable [phone] Sammy Villa MD Unavailable Encounter Details Date Type Department Care Team (Late st Contact Info) Description 11/21/2001 Abstract M [facility] [address] [address] Daniel Plaza MD [address] [phone] Social History Tobacco Use Types Packs/Day Years Used Date Smoking Tobacco: Never Assessed Comments No Sex and Gender Information Value Date Recorded Sex Assigned at Female 01/16/2019 8:38 AM CDT Legal 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 Gender Identity Female 01/16/2019 8:38 AM CDT Sexual Orientation Choose not to disclose 2021 11:32 AM MOLD MAINTENANCE TECHNICIAN documented as of this encounter Plan of Treatment Not on file documented as of this encounter Visit Diagnoses Not on filedocumented in this encounter Care Teams Dental Laboratory Technology Teacher Relationship Specialty Start Date End Date Daniel Plaza MD [address] [place] [address] PCP - General 06/29/10 12/23/20 Daniel Plaza MD [address] [place] [address] PCP - Assigned PCP 02/05/08 06/13/18 [place] [address] [place] [address] PCP - General Family Medicine 12/24/20 Daniel Plaza MD [address] [place] [address] Assigned PCP 01/13/12 01/03/21 Stan Barnes MD [address] [place] [address] Assigned Surgical Provider 02/01/20 07/19/20 [place] [address] [place] [address] Assigned PCP 01/04/21 Stan Barnes MD [address] [place] [address] Assigned Surgical Provider 08/30/21 08/31/23 Trent Qureshi MD [facility] [address] [place] [address] Orthopaedic Surgery 09/16/21 Sammy Villa MD [address] [place] [address] 96 [place] [address] Assigned Neuroscience Provider 10/01/24 documented as of this encounter
--- OUTSIDE RECORDS SUMMARY | 2024-12-05 14:00 | XMS_ITS | Encounter Summary ---
Author Organization [place] Address [address] [place] [address]. [place] [address] Care Team Providers Care Golf Club Weigher Name Role Phone Herb Herman MD Primary Care Provider Herb Herman MD Unavailable Stan Barnes MD Unavailable [phone] Trent Qureshi MD Unavailable [phone] Sammy Villa MD Unavailable [phone] Encounter Details Date Type Department Care Team (Late st Contact Info) Description 08/10/2021 [facility] Medical Advice [facility] [address] 4th [place] [address] Rodolfo Cline Social History Tobacco [...] do you attend [facility] or baptist services? More than 4 times [...] Answer Date Recorded PHQ-2 Score 0 06/24/2021 [facility] of Occupat ional [facility] - Occupational Stress Questionnaire Answer [...] CDT Legal Sex Female 3:11 AM MICA PATCHER Gender Identity Female 01/16/2019 8:38 AM CDT Sexual Orientation Choose not to disclose 2021 11:32 AM MICA PATCHER Occupation Industry Job Start Date Job End [...] Total Score: 0 06/10/19 22 7:01 AM MICA PATCHER documented as of this encounter Care Teams Golf Club Weigher Relationship Specialty [place] [address] [place] [address] PCP - General Family Medicine 12/24/20 [place] [address] [place] [address] Assigned PCP 01/04/21 Stan Barnes MD [address] [place] [address] Assigned Surgical Provider 08/30/21 08/31/23 Trent Qureshi MD [facility] [address] [address] Orthopaedic Surgery 09/16/21 Sammy Villa MD [address] [place] [address] 96 [place], [place] [address] Assigned Neuroscience Provider 10/01/24 documented as of this encounter
--- OUTSIDE RECORDS SUMMARY | 2024-12-05 14:00 | XMS_ITS | Encounter Summary ---
Author Organization [place] Address [address] [place] [address]. [place] [address] Care Team Providers Care Fish Checker Name Role Phone Herb Herman MD Primary Care Provider Herb Herman MD Unavailable Stan Barnes MD Unavailable [phone] Trent Qureshi MD Unavailable [phone] Sammy Villa MD Unavailable [phone] Reason for Visit * Reason Onset Date Comments Medication Request 07/13/2021 Encounter Details Date Type Department Care Team (Late st Contact Info) Description 07/13/2021 MyC Medical Advice [facility] [address] [place] [address] [place] [address] [place] [address] Medication Request Social History Tobacco Use [...] often do you attend chur ch or taoist services? More than 4 times per year [...] Date Recorded PHQ-2 Score 0 06/24/2021 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 MANAGER Gender Identity Female 01/16/2019 8:38 AM CDT Sexual Orientation Choose not to disclose 2021 11:32 AM HUMAN RESOURCES OPERATIONS MANAGER Occupation Industry Job Start Date Job [...] Total Score: 0 06/10/19 22 7:01 AM HUMAN RESOURCES OPERATIONS MANAGER documented as of this encounter Care Teams Fish Checker Relationship Specialty [place] [address] [place] [address] PCP - General Family Medicine 12/24/20 [place] [address] [place] [address] Assigned PCP 01/04/21 Stan Barnes MD [address] [place] [address] Assigned Surgical Provider 08/30/21 08/31/23 Trent Qureshi MD [facility] [address] [place] [address] Orthopaedic Surgery 09/16/21 Sammy Villa MD [address] [place] [address] Assigned Neuroscience Provider 10/01/24 documented as of this encounter
--- OUTSIDE RECORDS SUMMARY | 2024-12-05 14:00 | XMS_ITS | Encounter Summary ---
Author Organization [place] Address [facility] [place] [address] Care Team Providers Care Pharmacist Per Diem Name Role Phone Herb Herman MD Primary Care Provider Herb Herman MD Unavailable Stan Barnes MD Unavailable [phone] Trent Qureshi MD Unavailable [phone] Sammy Villa MD Unavailable Encounter Details Date Type Department Care Team (Late st Contact Info) Description 06/29/2021 MyC Medical Advice [facility] [id number] [place] [address] [place] [address] [place] [address] Social History Tobacco Use Types [...] Answer Date Recorded PHQ-2 Score 0 06/24/2021 [facility] of Occupat [...] AM CDT Legal Sex Female 3:11 AM CIO Gender Identity Female 01/16/2019 8:38 AM CDT Sexual Orientation Choose not to disclose 2021 11:32 AM CIO COVID-19 Exposure Response Date Recorded In the [...] Total Score: 0 06/10/19 22 7:01 AM CIO documented as of this encounter Care Teams Pharmacist Per Diem Relationship Specialty [place] [address] [place] [address] PCP - General Family Medicine 12/24/20 [place] [address] [place] [address] Assigned PCP 01/04/21 Stan Barnes MD 909 [place] [address] Assigned Surgical Provider 08/30/21 08/31/23 Trent Qureshi MD [facility] [address] [address] Orthopaedic Surgery 09/16/21 Sammy Villa MD [address] [place] [address] 96 [place], [place] [address] Assigned Neuroscience Provider 10/01/24 documented as of this encounter
--- OUTSIDE RECORDS SUMMARY | 2024-12-05 14:00 | XMS_ITS | Clinical Summary ---
Author Organization [place] Address [address] [place] [address] Care Team Providers Care Farm Mechanic Name Role Phone Herb Herman MD Primary Care Provider [phone] Herb Herman MD Unavailable Trent Qureshi MD Unavailable [phone] [facility] Unavailable [phone] Allergies Active Allergy Reactions Criticality Noted [...] 3 05/02/19 25 Active vitamin D2 (ERGOCALCIFEROL) 62556 units (1250 mcg) capsuleIndications :Type 2 diabetes [...] (01/02/2016): Seen incidentally on CT done at [place] Major 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 6 Spinal [...] to review. 03/01/2011 Full code 03/08/2011 Health Retirement 12/15/2010 09/26/2023 Overview (07/17/2012): X DX V65.8 REPLACED WITH 17658 HEALTH [facility] (07/17/2012) Major 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 11/05/2004 05/03/2023 Encounters Date Type Department Care Team Description 10/24/2024 MyC Medical Advice [facility] Neurology [address], [address] [place] [phone] Ana Larsen RN 10/08/2024 3:30 PM CDT Office Visit [address] [phone] Herb Herman MD TIA (transient ischemic attack) (Primary Dx); Chronic kidney disease, stage 3a (H); Hyperlipidemia LDL goal <100; Essential hypertension; Adjustment disorder with anxious mood 10/08/2024 Travel 09/26/2024 10:15 AM CDT Radiology Injection Office Visit [facility] Pain Management [address] [place] [address] Sammy Villa MD Burton, Annie L, MD Lumbar radiculopathy (Primary Dx); Lumbar stenosis with neurogenic claudication 09/26/2024 Travel 09/23/[address] [phone] Herb Herman MD Medication Refill 09/20/2024 Telephone [facility] [address] [place] [address] [phone] [facility] Procedure (L3-4 or L4-5 Interlaminar ARTHUR) 09/19/2024 2:20 PM CDT Office Visit [facility] [address] [place] [phone] Douglas Hernandez MD Helland, Logan C, MD Lumbar stenosis with neurogenic claudication (Primary Dx); Chronic bilateral low back pain with bilateral sciatica 09/19/2024 MyC Medical Advice [facility] Neurology Clinics [facility] [address] [facility], [address] [place] [address] Ana Larsen RN 09/19/2024 Travel 09/19/2024 PRE VISIT [facility] [place] [address] [facility] [address] [place] [address] Sammy Villa MD Previsit 09/11/2024 Transcribe Orders GENERIC EXTERNAL DATA DEPARTMENT Douglas Hernandez MD Low back pain (Primary Dx) 09/10/2024 12:05 AM CDT Ancillary Procedure [facility] External Imaging [address] [place] [phone] Non-Fv Credentialed Provider, Radiology 09/10/2024 Ancillary Procedure [facility] External Imaging [address] [place] [phone] Non-Fv Credentialed Provider, Radiology 09/10/2024 Medical Correspondence [facility] [address] [facility] [address] [place] [address] Scan, Non-Provider from Last 3 Months Immunizations [...] Brother 2 Alive Father Mother Paternal Grandfather [place] Sister Alive lashanda knee replace ments Son [...] How often do you attend [facility] or restorationist services? More than 4 times [...] Answer Date Recorded PHQ-2 Score 6 10/08/2024 [facility] of [...] CDT Legal Sex Female 3:11 AM RETAIL BANKING MANAGER Gender Identity Female 01/16/2019 8:38 AM CDT Sexual Orientation Choose not to disclose 2021 11:32 AM RETAIL BANKING MANAGER Occupation Industry Job Start Date Job [...] (Cologuard) Discontinued Medical Devices Implanted Type Area Boilermaker Helper Device Identifier Shelf Expiration Date Model / Serial / Lot Imp Scr Zim 6.5x30mm Acet Cup Self Tap [id number] - [id number] Implanted:Qty : 1 on 09/21/2021 by Anderson George MD at [facility] Metallic Hardware/Anc hor Right: Hip [employer] 06/19/203114-7426-999- 30 / / [id number] Imp Scr Zim 6.5x30mm Acet Cup Self Tap [id number] - [id number] Implanted:Qty : 1 on 12/21/2021 by Anderson George MD at [facility] Metallic Hardware/Anc hor Left: Hip [employer] 06/19/203150-2349-499- 30 / / [id number] Imp Shell Biom G7 Acetab Pps Billy Hole 52mm Sz E [id number] - [id number] Implanted:Qty : 1 on 09/21/2021 by Anderson George MD at [facility] Total Joint Component/In sert Right: Hip [employer] 07/10/[id number] / / [id number] Liner Actb G7 E 36mm Lngvt Hip Strl Lum Lf [id number] - [id number] Implanted:Qty : 1 on 09/21/2021 by Anderson George MD at [facility] Total Joint Component/In sert Right: Hip [employer] 12/16/2025200916277968 / / [id number] Imp Stem Femoral Biom Echo Std Offset [id number] - [id number] Implanted:Qty : 1 on 09/21/2021 by Anderson George MD at [facility] Total Joint Component/In sert Right: Hip [employer] 01/16/2031 [id number] / / [id number] Head Fem -3mm Ofst 36mm Hip Actb Dusty Ty 1 Blx D [id number] - [id number] Implanted:Qty : 1 on 09/21/2021 by Anderson George MD at [facility] Total Joint Component/In sert Right: Hip [employer] 06/23/2031 650-0660 / / [id number] Imp Shell Biom G7 Acetab Pps Billy Hole 52mm Sz E [id number] - [id number] Implanted:Qty : 1 on 12/21/2021 by Anderson George MD at [facility] Total Joint Component/In sert Left: Hip [employer] 10/30/2031 [id number] / / [id number] Imp Stem Femoral Biom Echo Std Offset [id number] - [id number] Implanted:Qty : 1 on 12/21/2021 by Anderson George MD at [facility] Total Joint Component/In sert Left: Hip [employer] 08/25/2031 [id number] / / [id number] Liner Actb G7 E 36mm Lngvt Hip Strl Lum Lf [id number] - [id number] Implanted:Qty : 1 on 12/21/2021 by Anderson George MD at [facility] Total Joint Component/In sert Left: Hip [employer] 08/30/[id number] / / [id number] Head Fem -3mm Ofst 36mm Hip Actb Dusty Ty 1 Blx D 650-45780 - [id number] Implanted:Qty : 1 on 12/21/2021 by Anderson George MD at [facility] Total Joint Component/In sert Left: Hip [employer] 06/30/2031 650-0660 / / [id number] Procedures Procedure Name Priority Date/Time Associated Diagnosis [...] FREE T4 REFLEX Add-On 05/02/2024 11:07 AM RETAIL BANKING MANAGER Acquired hypothyroidism HEMOGLOBIN A1C Routine 05/02/2024 11:07 AM RETAIL BANKING MANAGER Type 2 diabetes mellitus with diabetic neuropathy, [...] C FOOT EXAM Routine 04/27/2013 10:15 AM RETAIL BANKING MANAGER Type 2 diabetes, HbA1C goal < 7% [...] from the original result were not included. [facility] - Procedure Note Date [...] the procedure. Diagnosis: Lumbar spondylosis; Lumbar radiculitis/radiculopathy Mechanical Assembler: Daniel Otto MD Anesthesia: none Indications: Angela [...] in 2 weeks for post-procedure evaluation. DANIEL OTOT MD Pain Management Daniel Otto MD [facility] PAIN MANAGEMENT ORDERABLES Final [...] with free T4 reflex (05/02/2024 11:07 AM RETAIL BANKING MANAGER) Pathologist [facility] TSH 1.54 0.30 - 4.20 uIU/mL 05/03/2024 11:22 AM RETAIL BANKING MANAGER [facility] Blood BLOOD SPECIMEN / Unknown Venipuncture / Unknown 05/02/2024 11:07 AM RETAIL BANKING MANAGER 05/02/2024 11:07 AM RETAIL BANKING MANAGER Herb Herman MD LAB - BLOOD ORDERABLES Final Res ult Performing Organization Address City/[facility]/ZIP Co de Phone Number [facility] [address] [place] [address], [facility] * (ABNORMAL) HEMOGLOBIN A1C (05/02/2024 11:07 AM RETAIL BANKING MANAGER) Pathologist [facility] Estimated Average Glucose 157(H) <117 mg/dL 05/02/2024 11:12 AM [facility] Hemoglobin A1C 7.1(H) 0.0 - 5.6 % 05/02/2024 11:12 AM [facility] Comment: Normal <5.7% Prediabetes 5.7-6.4% Diabetes 6.5% or higher Note: Adopted from ADA consensus guidelines. Blood BLOOD SPECIMEN / Unknown Venipuncture / Unknown 05/02/2024 11:07 AM RETAIL BANKING MANAGER 05/02/2024 11:07 AM RETAIL BANKING MANAGER Herb Herman MD LAB - BLOOD ORDERABLES Final Res ult LABORATORY [facility] [address] [facility] Lab (no room number, 1st floor of clinic) [place] [address], [place] * Albumin Random Urine Quantitative with [...] control, and institution of therapy with an rjtzvwsjwsm-zwxmnwhsna-umqorx (TIFFANY) inhibitor (if the patient can tolerate it). Urine MID-STREAM URINE SPECIMEN / Unknown Non-blood Collection / Unknown 08/01/2023 9:56 AM CDT 08/01/2023 9:56 AM CDT us Herb Herman MD LAB - URINE ORDERABLES Final Res ult [facility] LAB[facility]AT[facility] Core Lab [address] [facility], [address] [place] [address], [facility] * ALT (08/01/2023 9:51 AM CDT) ALT 12 0 - 50 U/L 08/01/2023 5:5 4 PM CDT [facility] Blood BLOOD SPECIMEN / Unknown Venipuncture / Unknown 08/01/2023 9:51 AM CDT 08/01/2023 9:51 AM CDT us Herb Herman MD LAB - BLOOD ORDERABLES Final Res ult [facility] LABORATORY [facility] [place] Core Lab [address] [facility], [address] [phone] * (ABNORMAL) Basic metabolic panel (Ca, Cl, CO2, Creat, Gluc, K, Na, BUN) (08/01/2023 9:51 AM CDT) [facility] Sodium 139 135 - 145 mmol/L [...] BLOOD ORDERABLES Final Res ult [facility] LABORATORY [facility] [place] Core Lab [address] [facility] [address], [address] [address] * MA Screening Digital Bilateral (07/26/2023 [...] UM SPECIALTY CORE/PROT/ENDO UM Specialty Core/Prot/Endo [address] [facility] [address], Room [address] [place] [address] * Eye Exam - HIM Scan (03/11/2023) [...] 1:42 PM CDT 08/02/2022 1:46 PM CDT [facility] LABORATORY - 08/02/2022 5:36 PM CDT [...] BLOOD ORDERABLES Final Res ult [facility] LABORATORY [facility] [place] Core Lab [address] [facility] [address], [address] [place] [address], [facility] [phone] * (ABNORMAL) Hemoglobin (01/18/2022 7:30 AM CDT) Hemoglobin 10.0(L) 11.7 - 15.7 g/dL 01/18/2022 7:52 AM CDT LABORATORY Blood STRUCTURE OF LEFT UPPER LIMB / Unknown Venipuncture / Unknown 01/18/2022 7:30 AM CDT 01/18/2022 7:43 AM CDT Anderson George MD LAB - BLOOD ORDERABL ES Final Result Performing Organization Address City/[facility]/ZIP Co de Phone Number LABORATORY [facility] Acute Care Lab [address] 1st floor, [address] [place] [address], [facility] [phone] * DX Hip/Pelvis/Spine w Lat Fraction Kath (07/21/2017 9:14 AM CDT) Anatomical Region Laterality Modality Dexa Bone Mineral Den sity Narrative 07/25/2017 10:30 AM CDT BONE DENSITOMETRY [address] [address] 07/21/2017 PATIENT: Angela Lamar CHART: [id number] : 1945 AGE: [age] year old SEX: female REFERRING PROVIDER: Daniel Plaza MD PROCEDURE: Bone density scanning was performed using DXA technology of the lumbar spine and hip. Scanning was performed on a Likewise Software scanner. Reporting is completed in the form [...] to another DXA performed on the same Grazeigy machine on 03/24 and 07/16. LATERAL VERTEBRAL ASSESSMENT Procedure: Vertebral fracture assessment was performed in the lateral decubitus position using a Visualmarks Prodigy densitometer. Indications for VFA: none listed [...] established for newborns, infants, and children NR [facility] Blood specimen (specimen) 09/23/2016 6:20 PM CDT 09/23/2016 6:21 PM CDT us Daniel Plaza MD LAB - BLOOD ORDERABLES Final Result [facility] [address] [place] [address] * PHQ-9 DEPRESSION SCREENING ORDER (03/08/2011) us Provider Abstract OTHER Final Result from Last 3 Months or Most Recently Relevant to Health Maintenance Insurance MEDICARE MEDICA [employer] MEDICARE [employer] Advance Directives For more information, please contact: [phone] * Full Code (Latest Code Status on [...] patie nt/ legal decision maker Care Teams Farm Mechanic Relationship Specialty [place] [address] [place] [address] PCP - General Family Medicine 12/24/20 [place] [address] [place] [address] Assigned PCP 01/04/21 Trent Qureshi MD [facility] [address] [place] [address]505 Orthopaedic Surgery 09/16/21 Sammy Villa MD [address] [place] [address] [id number] Assigned Neuroscience Provider 10/01/24
--- OUTSIDE RECORDS SUMMARY | 2024-12-05 14:00 | XMS_ITS | Encounter Summary ---
Author Organization [place] Address [address] [place] [address] Care Team Providers Care Scales Inspector Name Role Phone Daniel Plaza MD Primary Care Provider [phone] Daniel Plaza MD Unavailable [phone] Daniel Plaza MD Unavailable [phone] Stan Barnes MD Unavailable Herb Herman MD Primary Care Provider [phone] Herb Herman MD Unavailable Stan Barnes MD Unavailable [phone] Trent Qureshi MD Unavailable [phone] Sammy Villa MD Unavailable [phone] Encounter Details Date Type Department Care Team (Late st Contact Info) Description 03/01/2011 [facility] [address] [address] Rodolfo Cline Social History Tobacco Use Types Packs/Day Years Used Date Smoking Tobacco: Never Alcohol Use Standard Drinks/Week Comments No 0 (1 standard drink = 0.6 oz pur e alcohol) Comments No Sex and Gender Information Value Date Recorded Sex Assigned at Female 01/16/2019 8:38 AM CDT Legal Sex Female 3:[address]ERING TEACHER Gender Identity Female 01/16/2019 8:38 AM CDT Sexual Orientation Choose not to disclose 2021 11:[address] ENG[address]ERING TEACHER documented as of this encounter Plan of Treatment Not on file documented as of this encounter Visit Diagnoses Not on filedocumented in this encounter Care Teams Scales Inspector Relationship Specialty Start Date End Date Daniel Plaza MD [address] [place] [phone] PCP - General 06/29/10 12/23/20 Daniel Plaza MD [address] [place] [phone] PCP - Assigned PCP 02/05/08 06/13/18 [place] [address] [place] [address] PCP - General Family Medicine 12/24/20 Daniel Plaza MD [address] [place] [phone] Assigned PCP 01/13/12 01/03/21 Stan Barnes MD [address] [place] [address] Assigned Surgical Provider 02/01/20 07/19/20 [place] [address] [place] [address] Assigned PCP 01/04/21 Stan Barnes MD [address] [place] [address] [phone] Assigned Surgical Provider 08/30/21 08/31/23 Trent Qureshi MD [facility] [address] [place] [address] [id number] Orthopaedic Surgery 09/16/21 Sammy Villa MD [address] [place] [address] [id number] Assigned Neuroscience Provider 10/01/24 documented as of this encounter
--- OUTSIDE RECORDS SUMMARY | 2024-12-05 14:00 | XMS_ITS | Encounter Summary ---
Author Organization [place] Address [facility] [place] [address] Care Team Providers Care Mold Finisher Name Role Phone Herb Herman MD Primary Care Provider [phone] Herb Herman MD Unavailable Stan Barnes MD Unavailable [phone] Trent Qureshi MD Unavailable [phone] Sammy Villa MD Unavailable [phone] Reason for Visit * Reason Onset Date Comments MyChart Communication 01/06/2023 Encounter Details Date Type Department Care Team (Latest Contact Info) Description 01/06/2023 MyC Medical Advice [facility] [address] [place] [address] [place] [address] [place] [address] MyChart Communication Social History Tobacco [...] any clubs o r organizations such as mormon groups, unions, fraternal or athletic groups, or [...] Answer Date Recorded PHQ-2 Score 0 08/02/2022 [facility] Occupat ional Health - Occupational Stress [...] CDT Legal Sex Female 3:11 AM PRINCIPAL SYSTEMS ARCHITECT Gender Identity Female 01/16/2019 8:38 AM CDT Sexual Orientation Choose not to disclose 2021 11:32 AM PRINCIPAL SYSTEMS ARCHITECT Occupation Industry Job Start Date Job [...] documented as of this encounter Care Teams Mold Finisher Relationship Specialty [place] [address] [place] [address] PCP - General Family Medicine 12/24/20 [place] [address] [place] [address] Assigned PCP 01/04/21 Stan Barnes MD [address] [place] [address] Assigned Surgical Provider 08/30/21 08/31/23 Trent Qureshi MD [facility] [address] [place] [address] Orthopaedic Surgery 09/16/21 Sammy Villa MD [address] [place] [address] Assigned Neuroscience Provider 10/01/24 documented as of this encounter
--- OUTSIDE RECORDS SUMMARY | 2024-12-05 14:01 | XMS_ITS | Encounter Summary ---
Author Organization [place] Address [address] [place] [address] Care Team Providers Care Supervisor [employer] Elements Name Role Phone Daniel Plaza MD Primary Care Provider [phone] Daniel Plaza MD Unavailable [phone] Stan Barnes MD Unavailable [phone] Herb Herman MD Primary Care Provider Herb Herman MD Unavailable Stan Barnes MD Unavailable [phone] Trent Qureshi MD Unavailable [phone] Sammy Villa MD Unavailable Encounter Details Date Type Department Care Team (Late st Contact Info) Description 12/21/2018 [facility] [address] [place] [address] [address] [place] [address] Stan Barnes MD [address] [place] [address] Social History Tobacco Use Types Packs/Day Years Used Date Smoking Tobacco: Never Smokeless Tobacco: Never Alcohol Use Standard Drinks/Week Comments No 0 (1 standard drink = 0.6 oz pur e alcohol) PHQ-2 Answer Date Recorded PHQ-2 Score 0 04/18/2018 Comments No Sex and Gender Information Value Date Recorded Sex Assigned at Female 01/16/2019 8:38 AM CDT Legal Sex Female 3:11 AM DISTRICT FIRE MANAGEMENT OFFICER Gender Identity Female 01/16/2019 8:38 AM CDT Sexual Orientation Choose not to disclose 2021 11:32 AM DISTRICT FIRE MANAGEMENT OFFICER documented as of this encounter Plan of Treatment Not on file documented as of this encounter Visit Diagnoses Not on filedocumented in this encounter Additional Health Concerns Assessment Noted Time PHQ-9 Depression Total Score: 0 11/24/19 19 11:34 AM CDT documented as of this encounter Care Teams Supervisor [employer] Relationship Specialty Start Date End Date Daniel Plaza MD [address] [place] [phone] PCP - General 06/29/10 12/23/20 [place] [address] [place] [address] PCP - General Family Medicine 12/24/20 Daniel Plaza MD [address] [place] [phone] Assigned PCP 01/13/12 01/03/21 Stan Barnes MD [address] [place] [address] Assigned Surgical Provider 02/01/20 07/19/20 [place] [address] [place] [address] Assigned PCP 01/04/21 Stan Barnes MD [address] [place] [address] 345145 Assigned Surgical Provider 08/30/21 08/31/23 Trent Qureshi MD [facility] [address] [place] [address] [phone] Orthopaedic Surgery 09/16/21 Sammy Villa MD [address] [place] [address] [phone] Assigned Neuroscience Provider 10/01/24 documented as of this encounter
--- OUTSIDE RECORDS SUMMARY | 2024-12-05 14:01 | XMS_ITS | Encounter Summary ---
Author Organization [place] Address [address] [place] [address] Care Team Providers Care Butadiene Converter Helper Name Role Phone Herb Herman MD Primary Care Provider [phone] Herb Herman MD Unavailable Trent Qureshi MD Unavailable [phone] Sammy Villa MD Unavailable [phone] Encounter Details Date Type Department Care Team (Late st Contact Info) Description 02/20/2024 [facility] Medical Advice [address] [address] Brooke Barnes Social History Tobacco [...] often do you attend chur ch or faith services? 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 file documented as of this encounter Plan of Treatment Not on file documented as of this encounter Visit Diagnoses Not on filedocumented in this encounter Additional Health Concerns Assessment Noted Time PHQ-9 Depression Total Score: 0 05/02/19 24 10:52 AM PSYCHOLOGY PHYSICIAN documented as of this encounter Care Teams Butadiene Converter Helper Relationship Specialty [place] [address] [place] [address] PCP - General Family Medicine 12/24/20 [place] [address] [place] [address] Assigned PCP 01/04/21 Trent Qureshi MD [facility] [address] [place] [address] [phone] Orthopaedic Surgery 09/16/21 Sammy Villa MD [address] [place] [address] [phone] Assigned Neuroscience Provider 10/01/24 documented as of this encounter
--- OUTSIDE RECORDS SUMMARY | 2024-12-05 14:01 | XMS_ITS | Encounter Summary ---
Author Organization [place] Address [address] [place] [address] Care Team Providers Care Soa Integration Developer Name Role Phone Daniel Plaza MD Primary Care Provider [phone] Daniel Plaza MD Unavailable Daniel Plaza MD Unavailable [phone] Stan Barnes MD Unavailable [phone] Herb Herman MD Primary Care Provider Herb Herman MD Unavailable Stan Barnes MD Unavailable [phone] Trent Qureshi MD Unavailable [phone] Sammy Villa MD Unavailable [phone] Encounter Details Date Type Department Care Team (Late st Contact Info) Description 12/24/2013 MyC Medical Advice [facility] [address] [address] Daniel Plaza MD [address] [phone] Social History Tobacco Use Types Packs/Day Years Used Date Smoking Tobacco: Never Smokeless Tobacco: Never Alcohol Use Standard Drinks/Week Comments No 0 (1 standard drink = 0.6 oz pur e alcohol) Comments No Sex and Gender Information Value Date Recorded Sex Assigned at Female 01/16/2019 8:38 AM CDT Legal Sex Female 3:11 AM ELECTRONICS COMPUTER MECHANIC Gender Identity Female 01/16/2019 8:38 AM CDT Sexual Orientation Choose not to disclose 2021 11:32 AM ELECTRONICS COMPUTER MECHANIC documented as of this encounter Plan of Treatment Not on file documented as of this encounter Visit Diagnoses Not on filedocumented in this encounter Care Teams Soa Integration Developer Relationship Specialty Start Date End Date Daniel Plaza MD [address] [place] [phone] PCP - General 06/29/10 12/23/20 Daniel Plaza MD [address] [place] [phone] PCP - Assigned PCP 02/05/08 06/13/18 [place] [address] [place] [address] PCP - General Family Medicine 12/24/20 Daniel Plaza MD [address] [place] [phone] Assigned PCP 01/13/12 01/03/21 Stan Barnes MD [address] [place] [address] Assigned Surgical Provider 02/01/20 07/19/20 [place] [address] [place] [address] Assigned PCP 01/04/21 Stan Barnes MD [address] [place] [address] [phone] Assigned Surgical Provider 08/30/21 08/31/[address] Qures[address] [facility] [address] [place] [address] [phone] Orthopaedic Surgery 09/16/21 Sammy Villa MD [address] [facility] 96 [place], [place] 790725 Assigned Neuroscience Provider 10/01/24 documented as of this encounter
--- OUTSIDE RECORDS SUMMARY | 2024-12-05 14:01 | XMS_ITS | Encounter Summary ---
Author Organization [place] Address [address] [place] [address] Care Team Providers Care Network Technical Analyst Name Role Phone Herb Herman MD Primary Care Provider Herb Herman MD Unavailable Stan Barnes MD Unavailable [phone] Trent Qureshi MD Unavailable [phone] Sammy Villa MD Unavailable Reason for Visit * Reason Comments Medication Refill Encounter Details Date Type Department Care Team (Late st Contact Info) Description 01/28/[address] [phone] Daniel Plaza MD [address] [place] [phone] Medication Refill Social History Tobacco Use Types [...] CDT Legal Sex Female 3:11 AM CARDIOVASCULAR RN Gender Identity Female 01/16/2019 8:38 AM CDT Sexual Orientation Choose not to disclose 2021 11:32 AM CARDIOVASCULAR RN documented as of this encounter Miscellaneous Notes [...] documented as of this encounter Care Teams Network Technical Analyst Relationship Specialty [place] [address] [place] [address] PCP - General Family Medicine 12/24/20 [place] [address] [place] [address] Assigned PCP 01/04/21 Stan Barnes MD [address] [place] [address] Assigned Surgical Provider 08/30/21 08/31/23 Trent Qureshi MD [facility] [address] [place] [address] Orthopaedic Surgery 09/16/21 Sammy Villa MD [address] [place] [address] [phone] Assigned Neuroscience Provider 10/01/24 documented as of this encounter
--- OUTSIDE RECORDS SUMMARY | 2024-12-05 14:01 | XMS_ITS | Encounter Summary ---
Author Organization [place] Address [address] [place] [address] Care Team Providers Care Air Crew Officer Name Role Phone Herb Herman MD Primary Care Provider Herb Herman MD Unavailable Stan Barnes MD Unavailable [phone] Trent Qureshi MD Unavailable [phone] Sammy Villa MD Unavailable [phone] Encounter Details Date Type Department Care Team (Late st Contact Info) Description 12/23/2021 MyC Medical Advice [facility] [address] [place] [phone] Brooke Barnes Social History Tobacco Use [...] Answer Date Recorded PHQ-2 Score 0 11/24/2021 [facility] of Occupat ional [facility] [...] AM CDT Legal Sex Female 3:11 AM JAVASCRIPT ENGINEER Gender Identity Female 01/16/2019 8:38 AM CDT Sexual Orientation Choose not to disclose 2021 11:32 AM JAVASCRIPT ENGINEER Occupation Industry Job Start Date Job [...] as of this encounter Care Teams Air Crew Officer Relationship Specialty [place] [address] [place] [address] PCP - General Family Medicine 12/24/20 [place] [address] [place] [address] Assigned PCP 01/04/21 Stan Barnes MD [address] [place] [address] Assigned Surgical Provider 08/30/21 08/31/23 Trent Qureshi MD [facility] [address] [place] [address] Orthopaedic Surgery 09/16/21 Sammy Villa MD [address] [place] [address] 96 [place], [place] [phone] Assigned Neuroscience Provider 10/01/24 documented as of this encounter
--- OUTSIDE RECORDS SUMMARY | 2024-12-05 14:01 | XMS_ITS | Encounter Summary ---
Author Organization [place] Address [address] [place] [address]. [place] [address] Care Team Providers Care Flower Picker Name Role Phone Herb Herman MD Primary Care Provider [phone] Herb Herman MD Unavailable Trent Qureshi MD Unavailable [phone] Sammy Villa MD Unavailable Encounter Details Date Type Department Care Team (Late st Contact Info) Description 03/31/2024 MyC Medical Advice [facility] [address] [place] [address] [place] [address] [place] [address] Social History Tobacco Use Types [...] attend [facility] or yazidism services? 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 file documented as of this encounter Plan of Treatment Not on file documented as of this encounter Visit Diagnoses Not on filedocumented in this encounter Additional Health Concerns Assessment Noted Time PHQ-9 Depression Total Score: 0 05/02/19 24 10:52 AM DIRECTOR HAIR documented as of this encounter Care Teams Flower Picker Relationship Specialty [place] [address] [place] [address] PCP - General Family Medicine 12/24/20 [place] [address] [place] [address] Assigned PCP 01/04/21 Trent Qureshi MD [facility] [address] [place] [address] Orthopaedic Surgery 09/16/21 Sammy Villa MD [address] [place] [address] Assigned Neuroscience Provider 10/01/24 documented as of this encounter
--- OUTSIDE RECORDS SUMMARY | 2024-12-05 14:01 | XMS_ITS | Encounter Summary ---
Author Organization [place] Address [address] [place] [address] Care Team Providers Care Adult Basic Education Instructor Name Role Phone Herb Herman MD Primary Care Provider Herb Herman MD Unavailable Trent Qureshi MD Unavailable [phone] Sammy Villa MD Unavailable Encounter Details Date Type Department Care Team (Late st Contact Info) Description 02/21/2024 [facility] Medical Advice [address] [phone] Rama Roche MA Social History [...] any clubs o r organizations such as sabianism groups, unions, fraternal or athletic groups, or [...] CDT Legal Sex Female 3:11 AM APPLICATION INTEGRATOR Gender Identity Female 01/16/2019 8:38 AM CDT Sexual Orientation Choose not to disclose 2021 11:32 AM APPLICATION INTEGRATOR 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 file documented as of this encounter Plan of Treatment Not on file documented as of this encounter Visit Diagnoses Not on filedocumented in this encounter Additional Health Concerns Assessment Noted Time PHQ-9 Depression Total Score: 0 05/02/19 24 10:52 AM APPLICATION INTEGRATOR documented as of this encounter Care Teams Adult Basic Education Instructor Relationship Specialty [place] [address] [place] [address] PCP - General Family Medicine 12/24/20 [place] [address] [place] [address] Assigned PCP 01/04/21 Trent Qureshi MD [facility] [address] [place] [address] [phone] Orthopaedic Surgery 09/16/21 Sammy Villa MD [address] [place] [address] [phone] Assigned Neuroscience Provider 10/01/24 documented as of this encounter
--- OUTSIDE RECORDS SUMMARY | 2024-12-05 14:01 | XMS_ITS | Encounter Summary ---
Author Organization [place] Address [facility] [place] [address] Care Team Providers Care Glue Mixer Name Role Phone Herb Herman MD Primary Care Provider [phone] Herb Herman MD Unavailable Trent Qureshi MD Unavailable [phone] Sammy Villa MD Unavailable Reason for Visit * Reason Onset Date Comments MyChart Communication 03/30/2024 Encounter Details Date Type Department Care Team (Latest Contact Info) Description 03/30/2024 MyC Medical Advice [facility] [address] [place] [address] [place] [address] [place] [address] MyChart Communication Social History Tobacco [...] often do you attend chur ch or zoroastrianism services? 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 file documented as of this encounter Plan of Treatment Not on file documented as of this encounter Visit Diagnoses Not on filedocumented in this encounter Additional Health Concerns Assessment Noted Time PHQ-9 Depression Total Score: 0 05/02/19 24 10:52 AM SUPERVISOR PLATE PASTING documented as of this encounter Care Teams Glue Mixer Relationship Specialty [place] [address] [place] [address] PCP - General Family Medicine 12/24/20 [place] [address] [place] [address] Assigned PCP 01/04/21 Trent Qureshi MD [facility] [address] [place] [address] Orthopaedic Surgery 09/16/21 Sammy Villa MD [address] [place] [address] [phone] Assigned Neuroscience Provider 10/01/24 documented as of this encounter
--- OUTSIDE RECORDS SUMMARY | 2024-12-05 14:01 | XMS_ITS | Encounter Summary ---
Author Organization [place] Address [address] [place] [address] Care Team Providers Care Model Builder Display Name Role Phone Daniel Plaza MD Primary Care Provider Daniel Plaza MD Unavailable [phone] Daniel Plaza MD Unavailable [phone] Stan Barnes MD Unavailable [phone] Herb Herman MD Primary Care Provider [phone] Herb Herman MD Unavailable Stan Barnes MD Unavailable [phone] Trent Qureshi MD Unavailable [phone] Sammy Villa MD Unavailable Reason for Visit * Reason Onset Date Comments Medication Request 04/22/2015 Encounter Details Date Type Department Care Team (Late st Contact Info) Description 04/22/2015 [facility] [place] [address] [address] Daniel Plaza MD [address] [phone] Medication Request Social History Tobacco Use Types Packs/Day Years Used Date Smoking Tobacco: Never Smokeless Tobacco: Never Alcohol Use Standard Drinks/Week Comments No 0 (1 standard drink = 0.6 oz pur e alcohol) Comments No Sex and Gender Information Value Date Recorded Sex Assigned at Female 01/16/2019 8:38 AM CDT Legal Sex Female 3:11 AM IT ACCOUNT MANAGER Gender Identity Female 01/16/2019 8:38 AM CDT Sexual Orientation Choose not to disclose 2021 11:32 AM IT ACCOUNT MANAGER documented as of this encounter Plan of Treatment Not on file documented as of this encounter Visit Diagnoses Diagnosis Edema, unspecified edema- Primary documented in this encounter Care Teams Model Builder Display Relationship Specialty Start Date End Date Daniel Plaza MD [address] [place] [phone] PCP - General 06/29/10 12/23/20 Daniel Plaza MD [address] [place] [phone] PCP - Assigned PCP 02/05/08 06/13/18 [place] [address] [place] [address] PCP - General Family Medicine 12/24/20 Daniel Plaza MD [address] [place] [phone] Assigned PCP 01/13/12 01/03/21 Stan Barnes MD 9 [place] [address] Assigned Surgical Provider 02/01/20 07/19/20 [place] [address] [place] [address] Assigned PCP 01/04/21 Stan Barnes MD [address] [place] [address] Assigned Surgical Provider 08/30/21 08/31/23 Trent Qureshi MD [facility] [address] [place] [address] Orthopaedic Surgery 09/16/21 Sammy Villa MD [address] [place] [address] 96 [place] [address] Assigned Neuroscience Provider 10/01/24 documented as of this encounter
--- OUTSIDE RECORDS SUMMARY | 2024-12-05 14:01 | XMS_ITS | Encounter Summary ---
Author Organization [place] Address [facility] [place] [address] Care Team Providers Care Personal Caregiver Name Role Phone Herb Herman MD Primary Care Provider [phone] Herb Herman MD Unavailable Stan Barnes MD Unavailable [phone] Trent Qureshi MD Unavailable [phone] Sammy Villa MD Unavailable Encounter Details Date Type Department Care Team (Late st Contact Info) Description 07/16/2021 MyC Medical Advice [facility] [address] [place] [address] [place] [address] [place] [address] Social History Tobacco Use Types [...] often do you attend chur ch or holiness services? More than 4 times [...] AM CDT Legal Sex Female 3:11 AM MULTIPLE DRUM SANDER HELPER Gender Identity Female 01/16/2019 8:38 AM CDT Sexual Orientation Choose not to disclose 2021 11:32 AM MULTIPLE DRUM SANDER HELPER Occupation Industry Job Start Date Job End [...] Total Score: 0 06/10/19 22 7:01 AM MULTIPLE DRUM SANDER HELPER documented as of this encounter Care Teams Personal Caregiver Relationship Specialty [place] [address] [place] [address] PCP - General Family Medicine 12/24/20 [place] [address] [place] [address] Assigned PCP 01/04/21 Stan Barnes MD [address] [place] [address] Assigned Surgical Provider 5/22/22 5/22/24 Trent Qureshi MD [facility] [address] [place] [address] [phone] Orthopaedic Surgery 09/16/21 Sammy Villa MD [address] [place] [address] [phone] Assigned Neuroscience Provider 10/01/24 documented as of this encounter
--- OUTSIDE RECORDS SUMMARY | 2024-12-05 14:01 | XMS_ITS | Encounter Summary ---
Author Organization [place] Address [address] [place] [address] Care Team Providers Care Chief Of Service Name Role Phone Herb Herman MD Primary Care Provider Herb Herman MD Unavailable Stan Barnes MD Unavailable [phone] Trent Qureshi MD Unavailable [phone] Sammy Villa MD Unavailable [phone] Encounter Details Date Type Department Care Team (Late st Contact Info) Description 09/15/2021 Orders Only [facility] [address] [place] [address] Manny Petersen MD [address] [place], [place] [id number] Encounter for laboratory testing for COVID-19 virus [...] Answer Date Recorded PHQ-2 Score 0 09/15/2021 [facility] Occupat ional Health - [...] AM CDT Legal Sex Female 3:11 AM CHANGER FIXER Gender Identity Female 01/16/2019 8:38 AM CDT Sexual Orientation Choose not to disclose 2021 11:32 AM CHANGER FIXER Occupation Industry Job Start Date Job End [...] the balbina SARS-CoV-2 assay on the balbina Proxible0 System. This test should be ordered for [...] COVID-19. This test was validated by the [facility]. This laboratory is certified under the Clinical Laboratory Improvement Amendments of 1988 (CLIA-88) as qualified to perform high and/or moderate complexity laboratory testing. Manny Petersen MD LAB - MICRO GENERAL ORDERABLES F inal Result [facility] Inf. Diseases Diag. Lab [address] [facility], Room D297 [place] [id number] [phone] documented in this encounter Visit Diagnoses Diagnosis Encounter for laboratory testing for COVID-19 virus documented in this encounter Additional Health Concerns Assessment Noted Time PHQ-9 Depression Total Score: 1 08/23/19 22 7:03 AM CDT documented as of this encounter Care Teams Chief Of Service Relationship Specialty [place] [address] [place] [address] PCP - General Family Medicine 12/24/20 [place] [address] [place] [address] Assigned PCP 01/04/21 Stan Barnes MD 909 [place] [address] Assigned Surgical Provider 08/30/21 08/31/23 Trent Qureshi MD [facility] [address] [address] Orthopaedic Surgery 09/16/21 Sammy Villa MD [address] [place] [address] 96 [place], [place] 3[address] Assigned Neuroscience Provider 10/01/24 documented as of this encounter
--- OUTSIDE RECORDS SUMMARY | 2024-12-05 14:01 | XMS_ITS | Encounter Summary ---
Author Organization [place] Address [address] [place] [address] Care Team Providers Care Industrial Therapist Name Role Phone Herb Herman MD Primary Care Provider Herb Herman MD Unavailable Stan Barnes MD Unavailable [phone] Trent Qureshi MD Unavailable [phone] Sammy Villa MD Unavailable [phone] Encounter Details Date Type Department Care Team (Late st Contact Info) Description 07/23/2021 MyC Medical Advice [address] [address] Brooke Barnes Social History Tobacco [...] Answer Date Recorded PHQ-2 Score 0 06/24/2021 [facility] of Occupat ional [facility] - Occupational Stress Questionnaire Answer Date [...] AM CDT Legal Sex Female 3:11 AM CHAPLAINCY Gender Identity Female 01/16/2019 8:38 AM CDT Sexual Orientation Choose not to disclose 2021 11:32 AM CHAPLAINCY Occupation Industry Job Start Date Job End [...] Total Score: 0 06/10/19 22 7:01 AM CHAPLAINCY documented as of this encounter Care Teams Industrial Therapist Relationship Specialty [place] [address] [place] [address] PCP - General Family Medicine 12/24/20 [place] [address] [place] [address] Assigned PCP 01/04/21 Stan Barnes MD [address] [place] [address] Assigned Surgical Provider 08/30/21 08/31/23 Trent Qureshi MD [facility] [address] [place] [address] Orthopaedic Surgery 09/16/21 Sammy Villa MD [address] [place] [address] Assigned Neuroscience Provider 10/01/24 documented as of this encounter
--- OUTSIDE RECORDS SUMMARY | 2024-12-05 14:01 | XMS_ITS | Encounter Summary ---
Author Organization [place] Address [address] [place] [address] Care Team Providers Care Kiln Stacker Name Role Phone Daniel Plaza MD Primary Care Provider [phone] Daniel Plaza MD Unavailable [phone] Daniel Plaza MD Unavailable [phone] Stan Barnes MD Unavailable [phone] Herb Herman MD Primary Care Provider Herb Herman MD Unavailable Stan Barnes MD Unavailable [phone] Trent Qureshi MD Unavailable [phone] Sammy Villa MD Unavailable Encounter Details Date Type Department Care Team (Late st Contact Info) Description 02/28/2008 MyC Medical Advice [facility] [address] [address] Daniel Plaza MD [address] [phone] Social History Tobacco Use Types Packs/Day Years Used Date Smoking Tobacco: Never Alcohol Use Standard Drinks/Week Comments Yes 0 (1 standard drink = 0.6 oz pur e alcohol) social Comments No Sex and Gender Information Value Date Recorded Sex Assigned at Female 01/16/2019 8:38 AM CDT Legal Sex Female 3:11 AM DATA COMPILER Gender Identity Female 01/16/2019 8:38 AM CDT Sexual Orientation Choose not to disclose 2021 11:32 AM DATA COMPILER documented as of this encounter Plan of Treatment Not on file documented as of this encounter Visit Diagnoses Not on filedocumented in this encounter Care Teams Kiln Stacker Relationship Specialty Start Date End Date Daniel Plaza MD [address] [place] [address] PCP - General 06/29/10 12/23/20 Daniel Plaza MD [address] [place] [phone] PCP - Assigned PCP 02/05/08 06/13/18 [place] [address] [place] [address] PCP - General Family Medicine 12/24/20 Daniel Plaza MD [address] [place] [address] Assigned PCP 01/13/12 01/03/21 Stan Barnes MD 9 [place] [address] Assigned Surgical Provider 02/01/20 07/19/20 [place] [address] [place] [address] Assigned PCP 01/04/21 Stan Barnes MD [address] [place] [address] Assigned Surgical Provider 08/30/21 08/31/23 Trent Qureshi MD [facility] [address] [id number] Orthopaedic Surgery 09/16/21 Sammy Villa MD 420 [facility] 96 [place] [address] Assigned Neuroscience Provider 10/01/24 documented as of this encounter
--- OUTSIDE RECORDS SUMMARY | 2024-12-05 14:01 | XMS_ITS | Clinical Summary ---
Author Organization [facility] Address [address] [place] [address] Care Team Providers Care Diving Supervisor Name Role Phone Herb Herman MD Primary Care Provider [phone] Allergies Active Allergy Reactions Criticality Noted Date [...] (10/18/2024): Seen incidentally on CT done at [facility] 12/22/2015 Spinal stenosis of lumbar re [...] Description 10/18/2024 2:00 PM CDT Office Visit [facility] [address] [place] [address] Felisha Perez, PORT CRANE OPERATOR, CAR WASH MANAGER Speech disturbance, unspecified type (Primary Dx); Abnormality [...] patient's age to complete this topic Insurance panpan Care Teams Diving Supervisor Relationship Specialty [place] [address] [place] [address] PCP - General Family Medicine - 10/18/24
--- OUTSIDE RECORDS SUMMARY | 2024-12-05 14:01 | XMS_ITS | Encounter Summary ---
Author Organization [place] Address [address] [place] [address]. [place] [address] Care Team Providers Care Rehab Consultant Name Role Phone Herb Herman MD Primary Care Provider [phone] Herb Herman MD Unavailable Stan Barnes MD Unavailable [phone] Trent Qureshi MD Unavailable [phone] Sammy Villa MD Unavailable Encounter Details Date Type Department Care Team (Late st Contact Info) Description 05/09/2023 MyC Medical Advice [facility] [address] [address] Stan Barnes MD [address] [place] [address] Social History Tobacco Use Types Packs/Day [...] 05/02/2023 [facility] - Occupational Stress Questionnaire Answer [...] AM CDT Legal Sex Female 3:11 AM FOUNDRY HELPER Gender Identity Female 01/16/2019 8:38 AM CDT Sexual Orientation Choose not to disclose 2021 11:32 AM FOUNDRY HELPER 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 file documented as of this encounter Plan of Treatment Not on file documented as of this encounter Visit Diagnoses Not on filedocumented in this encounter Additional Health Concerns Assessment Noted Time PHQ-9 Depression Total Score: 0 05/02/19 24 10:52 AM FOUNDRY HELPER documented as of this encounter Care Teams Rehab Consultant Relationship Specialty [place] [address] [place] [address] PCP - General Family Medicine 12/24/20 [place] [address] [place] [address] Assigned PCP 01/04/21 Stan Barnes MD [address] [place] [address] Assigned Surgical Provider 08/30/21 08/31/23 Trent Qureshi MD [facility] [address] [place] [address] 454035 Orthopaedic Surgery 09/16/21 Sammy Villa MD [address] [place] [address] 96 [place] [address] Assigned Neuroscience Provider 10/01/24 documented as of this encounter
--- OUTSIDE RECORDS SUMMARY | 2024-12-05 14:01 | XMS_ITS | Encounter Summary ---
Author Organization [place] Address [address] [place] [address] Care Team Providers Care Paper Reeler Name Role Phone Daniel Plaza MD Primary Care Provider Daniel Plaza MD Unavailable [phone] Daniel Plaza MD Unavailable Stan Barnes MD Unavailable [phone] Herb Herman MD Primary Care Provider Herb Herman MD Unavailable Stan Barnes MD Unavailable [phone] Trent Qureshi MD Unavailable [phone] Sammy Villa MD Unavailable [phone] Encounter Details Date Type Department Care Team (Late st Contact Info) Description 10/30/2014 MyC Medical Advice [facility] [address] [address] Daniel Plaza MD [address] [phone] Social History Tobacco Use Types Packs/Day Years Used Date Smoking Tobacco: Never Smokeless Tobacco: Never Alcohol Use Standard Drinks/Week Comments No 0 (1 standard drink = 0.6 oz pur e alcohol) Comments No Sex and Gender Information Value Date Recorded Sex Assigned at Female 01/16/2019 8:38 AM CDT Legal Sex Female 3:11 AM SMT MACHINE OPERATOR Gender Identity Female 01/16/2019 8:38 AM CDT Sexual Orientation Choose not to disclose 2021 11:32 AM SMT MACHINE OPERATOR documented as of this encounter Plan of Treatment Not on file documented as of this encounter Visit Diagnoses Not on filedocumented in this encounter Care Teams Paper Reeler Relationship Specialty Start Date End Date Daniel Plaza MD [address] [place] [address] PCP - General 06/29/10 12/23/20 Daniel Plaza MD [address] [place] [phone] PCP - Assigned PCP 02/05/08 06/13/18 [place] [address] [place] [address] PCP - General Family Medicine 12/24/20 Daniel Plaza MD [address] [place] [phone] Assigned PCP 01/13/12 01/03/21 Stan Barnes MD [address] [place] [address] Assigned Surgical Provider 02/01/20 07/19/20 [place] [address] [place] [address] Assigned PCP 01/04/21 Stan Barnes MD [address] [place] [address] Assigned Surgical Provider 08/30/21 08/31/23 Trent Qureshi MD [facility] [address] [place] [address]285 Orthopaedic Surgery 09/16/21 Sammy Villa MD 420 [facility] 96 [place], [place] 466415 Assigned Neuroscience Provider 10/01/24 documented as of this encounter
--- OUTSIDE RECORDS SUMMARY | 2024-12-05 14:01 | XMS_ITS | Encounter Summary ---
Author Organization [place] Address [address] [place] [address] Care Team Providers Care Clinical Medical Transcriptionist Name Role Phone Daniel Plaza MD Primary Care Provider Daniel Plaza MD Unavailable Daniel Plaza MD Unavailable Stan Barnes MD Unavailable [phone] Herb Herman MD Primary Care Provider Herb Herman MD Unavailable Stan Barnes MD Unavailable [phone] Trent Qureshi MD Unavailable [phone] Sammy Villa MD Unavailable [phone] Encounter Details Date Type Department Care Team (Late st Contact Info) Description 01/09/2014 [facility] Medical Advice [facility] [address] [address] Daniel Plaza MD [address] [phone] Social History Tobacco Use Types Packs/Day Years Used Date Smoking Tobacco: Never Smokeless Tobacco: Never Alcohol Use Standard Drinks/Week Comments No 0 (1 standard drink = 0.6 oz pur e alcohol) Comments No Sex and Gender Information Value Date Recorded Sex Assigned at Female 01/16/2019 8:38 AM CDT Legal Sex Female 3:11 AM TUBE MOUNTER Gender Identity Female 01/16/2019 8:38 AM CDT Sexual Orientation Choose not to disclose 2021 11:32 AM TUBE MOUNTER documented as of this encounter Plan of Treatment Not on file documented as of this encounter Visit Diagnoses Not on filedocumented in this encounter Care Teams Clinical Medical Transcriptionist Relationship Specialty Start Date End Date Daniel Plaza MD [address] [place] [address] PCP - General 06/29/10 12/23/20 Daniel Plaza MD [address] [place] [phone] PCP - Assigned PCP 02/05/08 06/13/18 [place] [address] [place] [address] PCP - General Family Medicine 12/24/20 Daniel Plaza MD [address] [place] [phone] Assigned PCP 01/13/12 01/03/21 Stan Barnes MD [address] [place] [address] Assigned Surgical Provider 02/01/20 07/19/20 [place] [address] [place] [address] Assigned PCP 01/04/21 Stan Barnes MD [address] [place] [address] 236975 Assigned Surgical Provider 08/30/21 08/31/23 Trent Qureshi MD [facility] [address] [place] [address] 973965 Orthopaedic Surgery 09/16/21 Sammy Villa MD 420 [facility] 96 [place], [place] 165725 Assigned Neuroscience Provider 10/01/24 documented as of this encounter
--- OUTSIDE RECORDS SUMMARY | 2024-12-05 14:01 | XMS_ITS | Encounter Summary ---
Author Organization [place] Address [address] [place] [address] Care Team Providers Care Technical Service Rep Name Role Phone Daniel Plaza MD Primary Care Provider [phone] Daniel Plaza MD Unavailable [phone] Herb Herman MD Primary Care Provider Herb Herman MD Unavailable Stan Barnes MD Unavailable Trent Qureshi MD Unavailable [phone] Sammy Villa MD Unavailable [phone] Encounter Details Date Type Department Care Team (Late st Contact Info) Description 10/15/2020 MyC Medical Advice [address] [address] Yvonne Zavala Social History Tobacco [...] AM CDT Legal Sex Female 3:11 AM PRODUCT DEVELOPMENT ASSISTANT Gender Identity Female 01/16/2019 8:38 AM CDT Sexual Orientation Choose not to disclose 2021 11:32 AM PRODUCT DEVELOPMENT ASSISTANT documented as of this encounter Plan of Treatment Not on file documented as of this encounter Visit Diagnoses Not on filedocumented in this encounter Additional Health Concerns Assessment Noted Time PHQ-9 Depression Total Score: 1 06/26/19 21 11:29 AM CDT documented as of this encounter Care Teams Technical Service Rep Relationship Specialty Start Date End Date Daniel Plaza MD [address] [place] [phone] PCP - General 06/29/10 12/23/20 [place] [address] [place] [address] PCP - General Family Medicine 12/24/20 Daniel Plaza MD [address] [phone] Assigned PCP 01/13/12 01/03/21 [place] [address] [place] [address] Assigned PCP 01/04/21 Stan Barnes MD [address] [place] [address] Assigned Surgical Provider 08/30/21 08/31/23 Trent Qureshi MD [facility] [address] [place] [address] 988215 Orthopaedic Surgery 09/16/21 Sammy Villa MD [address] [place] [address] Assigned Neuroscience Provider 10/01/24 documented as of this encounter
--- OUTSIDE RECORDS SUMMARY | 2024-12-05 14:01 | XMS_ITS | Encounter Summary ---
Author Organization [place] Address [address] [place] [address]. [place] [address] Care Team Providers Care Molding Press Operator Name Role Phone Herb Herman MD Primary Care Provider Herb Herman MD Unavailable Trent Qureshi MD Unavailable [phone] Sammy Villa MD Unavailable [phone] Encounter Details Date Type Department Care Team (Late st Contact Info) Description 05/16/2024 MyC Medical Advice [facility] [address] [place] [address] [place] [address] [place] [address] Social History Tobacco Use Types Packs/Day [...] How often do you attend [facility] or hoahaoism services? 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 file documented as of this encounter Plan of Treatment Not on file documented as of this encounter Visit Diagnoses Not on filedocumented in this encounter Additional Health Concerns Assessment Noted Time PHQ-9 Depression Total Score: 0 05/02/19 25 10:13 AM STICKER HAND documented as of this encounter Care Teams Molding Press Operator Relationship Specialty [place] [address] [place] [address] PCP - General Family Medicine 12/24/20 [place] [address] [place] [address] Assigned PCP 01/04/21 Trent Qureshi MD [facility] [address] [place] [address] Orthopaedic Surgery 09/16/21 Sammy Villa MD [address] [place] [address] Assigned Neuroscience Provider 10/01/24 documented as of this encounter
--- OUTSIDE RECORDS SUMMARY | 2024-12-05 14:01 | XMS_ITS | Encounter Summary ---
Author Organization [place] Address [address] [place] [address]. [place] [address] Care Team Providers Care Resource Engineer Name Role Phone Herb Herman MD Primary Care Provider [phone] Herb Herman MD Unavailable Trent Qureshi MD Unavailable [phone] Sammy Villa MD Unavailable [phone] Encounter Details Date Type Department Care Team (Late st Contact Info) Description 09/19/2024 [facility] Adv[facility] [address], [address] [place] [address] Ana Larsen, IRENE Social History Tobacco [...] How often do you attend chur or restoration services? 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 file documented as of this encounter Plan of Treatment Not on file documented as of this encounter Visit Diagnoses Not on filedocumented in this encounter Additional Health Concerns Assessment Noted Time PHQ-9 Depression Total Score: 0 05/02/19 25 10:13 AM TECHNICIAN SUPPORT ASSOCIATION documented as of this encounter Care Teams Resource Engineer Relationship Specialty [place] [address] [place] [address] PCP - General Family Medicine 12/24/20 [place] [address] [place] [address] Assigned PCP 01/04/21 Trent Qureshi MD [facility] [address] [place] [address] 730625 Orthopaedic Surgery 09/16/21 Sammy Villa MD [address] [place] [address] Assigned Neuroscience Provider 10/01/24 documented as of this encounter
--- OUTSIDE RECORDS SUMMARY | 2024-12-05 14:01 | XMS_ITS | Encounter Summary ---
Author Organization [place] Address [address] [place] [address] Care Team Providers Care Covering Machine Operator Helper Name Role Phone Daniel Plaza MD Primary Care Provider Daniel Plaza MD Unavailable [phone] Daniel Plaza MD Unavailable Stan Barnes MD Unavailable [phone] Herb Herman MD Primary Care Provider Herb Herman MD Unavailable Stan Barnes MD Unavailable [phone] Trent Qureshi MD Unavailable [phone] Sammy Villa MD Unavailable Reason for Visit * Reason Onset Date Comments Thyroid Disease 07/23/2014 Encounter Details Date Type Department Care Team (Late st Contact Info) Description 07/23/2014 [facility] Medical Advice [facility] [address] [address] Daniel Plaza MD [address] [address] Thyroid Disease Social History Tobacco Use Types Packs/Day Years Used Date Smoking Tobacco: Never Smokeless Tobacco: Never Alcohol Use Standard Drinks/Week Comments No 0 (1 standard drink = 0.6 oz pur e alcohol) Comments No Sex and Gender Information Value Date Recorded Sex Assigned at Female 01/16/2019 8:38 AM CDT Legal Sex Female 3:11 AM RIDE ASSEMBLY SUPERVISOR Gender Identity Female 01/16/2019 8:38 AM CDT Sexual Orientation Choose not to disclose 2021 11:32 AM RIDE ASSEMBLY SUPERVISOR documented as of this encounter Plan of Treatment Not on file documented as of this encounter Visit Diagnoses Diagnosis MONTSERRAT'S THYROIDITIS- Primary Unspecified hypothyroidism documented in this encounter Care Teams Covering Machine Operator Helper Relationship Specialty Start Date End Date Daniel Plaza MD [address] [place] [address] PCP - General 06/29/10 12/23/20 Daniel Plaza MD [address] [place] [address] PCP - Assigned PCP 02/05/08 06/13/18 [place] [address] [place] [address] PCP - General Family Medicine 12/24/20 Daniel Plaza MD [address] [place] [phone] Assigned PCP 01/13/12 01/03/21 Stan Barnes MD 9 [place] [address] Assigned Surgical Provider 02/01/20 07/19/20 [place] [address] [place] [address] Assigned PCP 01/04/21 Stan Barnes MD [address] [place] [address] Assigned Surgical Provider 08/30/21 08/31/23 Trent Qureshi MD [facility] [address] [place] [address] Orthopaedic Surgery 09/16/21 Sammy Villa MD [address] [place] [address] 96 [place] [address] Assigned Neuroscience Provider 10/01/24 documented as of this encounter
--- OUTSIDE RECORDS SUMMARY | 2024-12-05 14:01 | XMS_ITS | Encounter Summary ---
Author Organization [place] Address [address] [place] [address]. [place] [address] Care Team Providers Care Journeyman Pressman Name Role Phone Herb Herman MD Primary Care Provider [phone] Herb Herman MD Unavailable Stan Barnes MD Unavailable + [phone] Trent Qureshi MD Unavailable [phone] Sammy Villa MD Unavailable [phone] Encounter Details Date Type Department Care Team (Late st Contact Info) Description 08/27/2021 MyC Medical Advice [address] 5th [place] [address] Rachelle Mai RN Social History [...] How often do you attend chur or quaker services? More than 4 times [...] Answer Date Recorded PHQ-2 Score 0 08/25/2021 [facility] - Occupational Stress Questionnaire Answer [...] AM CDT Legal Sex Female 3:11 AM TILE HELPER Gender Identity Female 01/16/2019 8:38 AM CDT Sexual Orientation Choose not to disclose 2021 11:32 AM TILE HELPER Occupation Industry Job Start Date Job [...] documented as of this encounter Care Teams Journeyman Pressman Relationship Specialty [place] [address] [place] [address] PCP - General Family Medicine 12/24/20 [place] [address] [place] [address] Assigned PCP 01/04/21 Stan Barnes MD [address] [place] [address] Assigned Surgical Provider 08/30/21 08/31/23 Trent Qureshi MD [facility] [address] [address] Orthopaedic Surgery 09/16/21 Sammy Villa MD [address] [place] [address] 96 [place], [place] 38[address]85 Assigned Neuroscience Provider 10/01/24 documented as of this encounter
--- OUTSIDE RECORDS SUMMARY | 2024-12-05 14:01 | XMS_ITS | Encounter Summary ---
Author Organization [facility] Address [address] [place] [address] Care Team Providers Care Diversified Crops Supervisor Name Role Phone Daniel Plaza MD Primary Care Provider Daniel Plaza MD Unavailable [phone] Daniel Plaza MD Unavailable Stan Barnes MD Unavailable [phone] Herb Herman MD Primary Care Provider [phone] Herb Herman MD Unavailable Stan Branes MD Unavailable [phone] Trent Qureshi MD Unavailable [phone] Sammy Villa MD Unavailable Reason for Visit * Reason Onset Date Comments Respiratory Problems 02/16/2008 Encounter Details Date Type Department Care Team (Latest Contact Info) Description 02/15/2008 MyC Medical Advice [facility] [address] [address] Daniel Plaza MD [address] [address] Respiratory Problems Social History Tobacco Use Types Packs/Day Years Used Date Smoking Tobacco: Never Alcohol Use Standard Drinks/Week Comments Yes 0 (1 standard drink = 0.6 oz pur e alcohol) social Comments No Sex and Gender Information Value Date Recorded Sex Assigned at Female 01/16/2019 8:38 AM CDT Legal Sex Female 3:11 AM CONSTRUCTION COST ESTIMATOR Gender Identity Female 01/16/2019 8:38 AM CDT Sexual Orientation Choose not to disclose 2021 11:32 AM CONSTRUCTION COST ESTIMATOR documented as of this encounter Plan of Treatment Not on file documented as of this encounter Visit Diagnoses Not on filedocumented in this encounter Care Teams Diversified Crops Supervisor Relationship Specialty Start Date End Date Daniel Plaza MD [address] [place] [phone] PCP - General 06/29/10 12/23/20 Daniel Plaza MD [address] [place] [phone] PCP - Assigned PCP 02/05/08 06/13/18 [place] [address] [place] [address] PCP - General Family Medicine 12/24/20 Daniel Plaza MD [address] [place] [phone] Assigned PCP 01/13/12 01/03/21 Stan Barnes MD 9 [place] [address] Assigned Surgical Provider 02/01/20 07/19/20 [place] [address] [place] [address] Assigned PCP 01/04/21 Stan Barnes MD [address] [place] [address] [phone] Assigned Surgical Provider 08/30/21 08/31/23 Trent Qureshi MD [facility] [address] [place] [address]605 Orthopaedic Surgery 09/16/21 Sammy Villa MD [address] [place] [address] 96 [place], [place] [address]48[address] Assigned Neuroscience Provider 10/01/24 documented as of this encounter
--- OUTSIDE RECORDS SUMMARY | 2024-12-05 14:01 | XMS_ITS | Encounter Summary ---
Author Organization [place] Address [address] [place] [address] Care Team Providers Care Production Underwriter Name Role Phone Daniel Plaza MD Primary Care Provider [phone] Daniel Plaza MD Unavailable Daniel Plaza MD Unavailable Stan Barnes MD Unavailable [phone] Herb Herman MD Primary Care Provider Herb Herman MD Unavailable Stan Barnes MD Unavailable [phone] Trent Qureshi MD Unavailable [phone] Sammy Villa MD Unavailable [phone] Encounter Details Date Type Department Care Team (Late st Contact Info) Description 04/28/2013 MyC Medical Advice [facility] [address] [address] Daniel Plaza MD [address] [phone] Social History Tobacco Use Types Packs/Day Years Used Date Smoking Tobacco: Never Smokeless Tobacco: Never Alcohol Use Standard Drinks/Week Comments No 0 (1 standard drink = 0.6 oz pur e alcohol) Comments No Sex and Gender Information Value Date Recorded Sex Assigned at Female 01/16/2019 8:38 AM CDT Legal Sex Female 3:11 AM ORDNANCE HANDLER Gender Identity Female 01/16/2019 8:38 AM CDT Sexual Orientation Choose not to disclose 2021 11:32 AM ORDNANCE HANDLER documented as of this encounter Plan of Treatment Not on file documented as of this encounter Visit Diagnoses Not on filedocumented in this encounter Care Teams Production Underwriter Relationship Specialty Start Date End Date Daniel Plaza MD [address] [place] [phone] PCP - General 06/29/10 12/23/20 Daniel Plaza MD [address] [place] [phone] PCP - Assigned PCP 02/05/08 06/13/18 [place] [address] [place] [address] PCP - General Family Medicine 12/24/20 Daniel Plaza MD [address] [place] [phone] Assigned PCP 01/13/12 01/03/21 Stan Barnes MD [address] [place] [address] Assigned Surgical Provider 02/01/20 07/19/20 [place] [address] [place] [address] Assigned PCP 01/04/21 Stan Barnes MD [address] [place] [address] [phone] Assigned Surgical Provider 08/30/21 08/31/23 Trent Qureshi MD [facility] [address] [place] [phone] Orthopaedic Surgery 09/16/21 Sammy Villa MD 420 [facility] 96 [place], [place] 921385 Assigned Neuroscience Provider 10/01/24 documented as of this encounter
--- OUTSIDE RECORDS SUMMARY | 2024-12-05 14:01 | XMS_ITS | Encounter Summary ---
Author Organization [facility] Address [facility] [place] [address] Care Team Providers Care Correctional Facility Psychiatrist Name Role Phone Herb Herman MD Primary Care Provider Herb Herman MD Unavailable Stan Barnes MD Unavailable [phone] Trent Qureshi MD Unavailable [phone] Sammy Villa MD Unavailable Encounter Details Date Type Department Care Team (Late st Contact Info) Description 06/22/2022 MyC Medical Advice [facility] [address] [place] [address] [place] [address] [place] [address] Social History Tobacco Use Types [...] Answer Date Recorded PHQ-2 Score 0 03/08/2022 [facility]at [facility] [...] CDT Legal Sex Female 3:11 AM SPEECH AND LANGUAGE CLINICIAN Gender Identity Female 01/16/2019 8:38 AM CDT Sexual Orientation Choose not to disclose 2021 11:32 AM SPEECH AND LANGUAGE CLINICIAN 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 file documented as of this encounter Plan of Treatment Not on file documented as of this encounter Visit Diagnoses Not on filedocumented in this encounter Additional Health Concerns Assessment Noted Time PHQ-9 Depression Total Score: 0 03/08/20 22 10:26 AM SPEECH AND LANGUAGE CLINICIAN documented as of this encounter Care Teams Correctional Facility Psychiatrist Relationship Specialty [place] [address] [place] [address] PCP - General Family Medicine 12/24/20 [place] [address] [place] [address] Assigned PCP 01/04/21 Stan Barnes MD [address] [place] [address] [phone] Assigned Surgical Provider 08/30/21 08/31/23 Trent Qureshi MD [facility] [address] [place] [address] 357005 Orthopaedic Surgery 09/16/21 Sammy Villa MD [address] [place] [address] 990305 Assigned Neuroscience Provider 10/01/24 documented as of this encounter
--- OUTSIDE RECORDS SUMMARY | 2024-12-05 14:01 | XMS_ITS | Encounter Summary ---
Author Organization [facility] Address [address] [place] [address] Care Team Providers Care Assistant Editor Name Role Phone Daniel Plaza MD Primary Care Provider Daniel Plaza MD Unavailable Daniel Plaza MD Unavailable [phone] Stan Barnes MD Unavailable [phone] Herb Herman MD Primary Care Provider [phone] Herb Herman MD Unavailable Stan Barnes MD Unavailable [phone] Trent Qureshi MD Unavailable [phone] Sammy Villa MD Unavailable [phone] Encounter Details Date Type Department Care Team (Late st Contact Info) Description 10/30/2014 MyC Medical Advice [facility] [address] [address] Daniel Plaza MD [address] [phone] Social History Tobacco Use Types Packs/Day Years Used Date Smoking Tobacco: Never Smokeless Tobacco: Never Alcohol Use Standard Drinks/Week Comments No 0 (1 standard drink = 0.6 oz pur e alcohol) Comments No Sex and Gender Information Value Date Recorded Sex Assigned at Female 01/16/2019 8:38 AM CDT Legal Sex Female 3:11 AM FREEZER UNLOADER Gender Identity Female 01/16/2019 8:38 AM CDT Sexual Orientation Choose not to disclose 2021 11:32 AM FREEZER UNLOADER documented as of this encounter Miscellaneous Notes [...] on filedocumented in this encounter Care Teams Assistant Editor Relationship Specialty Start Date End Date Daniel Plaza MD [address] [place] [phone] PCP - General 06/29/10 12/23/20 Daniel Plaza MD [address] [place] [phone] PCP - Assigned PCP 02/05/08 06/13/18 [place] [address] [place] [address] PCP - General Family Medicine 12/24/20 Daniel Plaza MD [address] [place] [address] Assigned PCP 01/13/12 01/03/21 Stan Barnes MD [address] [place] [address] Assigned Surgical Provider 02/01/20 07/19/20 [place] [address] [place] [address] Assigned PCP 01/04/21 Stan Barnes MD [address] [place] [address] Assigned Surgical Provider 08/30/21 08/31/23 Trent Qureshi MD [facility] [address] [place] [address] Orthopaedic Surgery 09/16/21 Sammy Villa MD [address] [place] [address] 96 [place], [place] 699835 Assigned Neuroscience Provider 10/01/24 documented as of this encounter
--- OUTSIDE RECORDS SUMMARY | 2024-12-05 14:01 | XMS_ITS | Encounter Summary ---
Author Organization [facility] Address [address] [place] [address] Care Team Providers Care Executive Admin Name Role Phone Daniel Plaza MD Primary Care Provider Daniel Plaza MD Unavailable Daniel Plaza MD Unavailable Stan Barnes MD Unavailable [phone] Herb Herman MD Primary Care Provider Herb Herman MD Unavailable Stan Barnes MD Unavailable [phone] Trent Qureshi MD Unavailable [phone] Sammy Villa MD Unavailable Encounter Details Date Type Department Care Team (Late st Contact Info) Description 07/25/2012 MyC Medical Advice [facility] [address] [place] [address] [address] Daniel Plaza MD [address] [phone] Social History Tobacco Use Types Packs/Day Years Used Date Smoking Tobacco: Never Smokeless Tobacco: Never Alcohol Use Standard Drinks/Week Comments No 0 (1 standard drink = 0.6 oz pur e alcohol) Comments No Sex and Gender Information Value Date Recorded Sex Assigned at Female 01/16/2019 8:38 AM CDT Legal Sex Female 3:11 AM SAMPLE DYE MIXER Gender Identity Female 01/16/2019 8:38 AM CDT Sexual Orientation Choose not to disclose 2021 11:32 AM SAMPLE DYE MIXER documented as of this encounter Plan of Treatment Not on file documented as of this encounter Visit Diagnoses Not on filedocumented in this encounter Care Teams Executive Admin Relationship Specialty Start Date End Date Daniel Plaza MD [address] [place] [phone] PCP - General 06/29/10 12/23/20 Daniel Plaza MD [address] [place] [phone] PCP - Assigned PCP 02/05/08 06/13/18 [place] [address] [place] [address] PCP - General Family Medicine 12/24/20 Daniel Plaza MD [address] [place] [phone] Assigned PCP 01/13/12 01/03/21 Stan Barnes MD [address] [place] [address] Assigned Surgical Provider 02/01/20 07/19/20 [place] [address] [place] [address] Assigned PCP 01/04/21 Stan Barnes MD [address] [place] [address] 563215 Assigned Surgical Provider 08/30/21 08/31/23 Trent Qureshi MD [facility] [address] [place] [address] 103875 Orthopaedic Surgery 09/16/21 Sammy Villa MD 420 [facility] 96 [place], [place] 58[address]65 Assigned Neuroscience Provider 10/01/24 documented as of this encounter
--- OUTSIDE RECORDS SUMMARY | 2024-12-05 14:01 | XMS_ITS | Encounter Summary ---
Author Organization [place] Address [address] [place] [address]. [place] [address] Care Team Providers Care Equity Holder Name Role Phone Herb Herman MD Primary Care Provider Herb Herman MD Unavailable Stan Barnes MD Unavailable [phone] Trent Qureshi MD Unavailable [phone] Sammy Villa MD Unavailable [phone] Encounter Details Date Type Department Care Team (Late st Contact Info) Description 09/23/2021 [facility] [address] 4th [place] [address] [place] Social History Tobacco Use Types Packs/Day Years [...] health [facility] or orthodoxy services? More than 4 times [...] Answer Date Recorded PHQ-2 Score 0 09/15/2021 [facility] Occupat ional [facility] - Occupational Stress Questionnaire [...] CDT Legal Sex Female 3:11 AM HEAD PUMPER Gender Identity Female 01/16/2019 8:38 AM CDT Sexual Orientation Choose not to disclose 2021 11:32 AM HEAD PUMPER Occupation Industry Job Start Date Job End [...] documented as of this encounter Care Teams Equity Holder Relationship Specialty [place] [address] [place] [address] PCP - General Family Medicine 12/24/20 [place] [address] [place] [address] Assigned PCP 01/04/21 Stan Barnes MD [address] [place] [address] Assigned Surgical Provider 08/30/21 08/31/23 Trent Qureshi MD [facility] [address] [address] Orthopaedic Surgery 09/16/21 Sammy Villa MD [address] [place] [address] 96 [place], [place] 8[address] Assigned Neuroscience Provider 10/01/24 documented as of this encounter
--- NOTE | 2024-12-05 14:17 | ED_ITS ---
HPI - General Adult General Chief complaint: GI Bleed Stated complaint: bleeding, constipation, retaining water on ankles Time Seen by Provider: 12/05/24 14:16 History of Present Illness HPI narrative: Pt was seen here 2 days ago for similar symptoms. Legs are swollen still. Pt complains also of new/more bright red bleeding from her rectum, also trouble breathing. 79-year-old woman presenting to the emergency department with can discern of bright red bleeding from her blood. It does not sound like it has been a lot but has been present with her without stooling. She has continued to be constipated. Denies abdominal pain and is complaining of significant pain in her bum. Was seen in this facility 2 days ago for lower extremity edema and intertrigo which apparently has improved. Lidocaine helps with pain she said. History of renal insufficiency with last creatinine measured at 2.2 which was an increase from 821 and 1.8 Was increased on her Lasix again and given nystatin cream. Recommended to use her compression stockings. Echocardiogram from September 2024 with EF of 72% with out regional wall motion abnormality. Normal systolic function mildly enlarged right ventricle. Today also complaining of lightheadedness possibly over this last week. Like she seeing pinpoints of lights as well. And then pain increasing in her backside. She is more short of breath with exertion. Not necessarily when lying down. No chest pain. No fever but has felt chilled. History of CVA with residual right leg weakness I understand from what she is saying here today and intermittent slurring of speech or word-finding difficulties. Related Data Home Medications ?Medication ?Instructions ?Recorded ?Confirmed amitriptyline 25 mg tablet 25 mg PO QPM 01/31/2412/05 ergocalciferol (vitamin D2) 1,250 1,250 mcg PO WE 01/1012/05/24 mcg (50,000 unit) capsule levothyroxine 137 mcg tablet 137 mcg PO DAILY 01/31/24 12/05/24 metformin 1,000 mg tablet 1,000 mg PO BID 01/31/24 omeprazole 20 mg capsule,delayed 20 mg PO QPM 01/31/24 12/05/24 release furosemide 20 mg tablet (Lasix) 40 mg PO QAM 11/29/24 12/05/24 Previous Rx's ?Medication ?Instructions ?Recorded aspirin 81 mg tablet 81 mg PO DAILY #90 tabs 09/10 09/02 clopidogrel 75 mg tablet 75 mg PO DAILY #30 tabs 09/10 10/03 ezetimibe 10 mg tablet (Zetia) 10 mg PO DAILY #90 tabs 10/23/24 lisinopril 20 1 tab PO DAILY #90 tabs 10/11 0/25 mg-hydrochlorothiazide 25 mg tablet docusate sodium 50 mg capsule 50 mg PO BID #60 caps nystatin 100,000 unit/gram topical 1 applic topical BI D #30 grams 12/03/24 cream Allergies Allergy/AdvReac Type Severity Reaction Status Date / Time atorvastatin Allergy Unknown Verified 11/29/24 14:51 niacin Allergy Unknown Verified 11/29/24 14:51 piroxicam Allergy Unknown Verified 11/29/24 14:51 pravastatin Allergy Unknown Verified 11/29/24 14:51 rosuvastatin Allergy Unknown Verified 11/29/24 14:51 simvastatin Allergy Unknown Verified 11/29/24 14:51 doxycycline Allergy Verified 11/29/24 14:51 erythromycin base Allergy Verified 11/29/24 14:51 morphine Allergy Verified 11/29/24 14:51 Review of Systems Status of ROS: Reports: 6 or more systems reviewed and unremarkable except as noted in History and below [facility] Medical History (Updated 12/05/24 @ 20:41 by Tamika Johnson MD) Left hip postoperative wound infection (01/15/22) ?T81.49XA - Infection following a procedure, other surgical site, initial encounter (ICD-10) Cholelithiasis ?K80.20 - Calculus of gallbladder without cholecystitis without obstruction (ICD-10) Cerebrovascular accident ?I63.9 - Cerebral infarction, unspecified (ICD-10) Hyperlipidemia ?E78.5 - Hyperlipidemia, unspecified (ICD-10) Major 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 (12/22/15) ?F32.5 - Major depressive disorder, single episode, in full remission (ICD- 10) Spinal stenosis of lumbar region with neurogenic claudication (03/20/15) ?M48.062 - Spinal stenosis, lumbar region with neurogenic claudication (ICD- 10) Lumbar radiculopathy ?M54.16 - Radiculopathy, lumbar region (ICD-10) Lumbosacral radiculitis ?M54.17 - Radiculopathy, lumbosacral region (ICD-10) Lumbar spondylosis ?M47.816 - Spondylosis without myelopathy or radiculopathy, lumbar region (ICD-10) Obesity (BMI 30-39.9) ?E66.9 - Obesity, unspecified (ICD-10) Chronic kidney disease, stage 3a ?N18.31 - Chronic kidney disease, stage 3a (ICD-10) Insomnia ?G47.00 - Insomnia, unspecified (ICD-10) Acquired hypothyroidism ?E03.9 - Hypothyroidism, unspecified (ICD-10) 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 - Stenosis of larynx (ICD-10) Diabetes mellitus type 2, controlled ?E11.9 - Type 2 diabetes mellitus without complications (ICD-10) Vitamin D deficiency ?E55.9 - Vitamin D deficiency, unspecified (ICD-10) Essential hypertension ?I10 - Essential (primary) hypertension (ICD-10) Surgical History (Updated 12/05/24 @ 20:41 by Tamika Johnson MD) H/O bilateral hip replacements ?Z96.643 - Presence of artificial hip joint, bilateral (ICD-10) History of bilateral knee replacement ?Z96.653 - Presence of artificial knee joint, bilateral (ICD-10) S/P total hip arthroplasty (09/21/21) ?Z96.649 - Presence of unspecified artificial hip joint (ICD-10) Social History (Updated 12/05/24 @ 18:06 by Tamika Johnson MD) Narrative: 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 Lives with her . She has been for 53 years. They have 2 sons and 2 granddaughters. Is active in her bertin. What is your current living situation?: I presently have a place to live Problems where you live: no known problems Problems where you live details: NA In the past 12 months, utilities in danger of being shut off: no In past 12 months, lack of transportation kept you from medical appts, meetings, work, or getting things needed for daily living: no In the past 12 mos, have been you worried that your food would run out before you had money to buy more?: never true In the past 12 mos, the food you bought just didn't last and you didn't have money to buy more?: never true Highest level of school completed/degree received: Master's degree Smoking Status: Never smoker Do you use any of these nicotine containing products: None Second hand tobacco smoke exposure: No How often do you have a drink containing alcohol: never How often do you have six or more drinks on one occasion: Never AUDIT-C Alcohol total score: 0 Non-prescribed substance use: denies use Caffeine: Yes (Diet Pepsi, Daily) How often does anyone, including family, friends and others, physically hurt you : never How often does anyone, including family, friends and others, insult or talk down to you: never How often does anyone, including family, friends and others, threaten you with harm: never How often does anyone, including family, friends and others, scream or curse at you: never service: No Exam Narrative: Exam Narrative: Does appear uncomfortable. Subtly confused at times I think. Though answering questions clearly quickly. Mildly labored but not tachypneic in her breathing. Lungs are clear. Heart in regular rate in rhythm though with some ectopic beats I think. Abdomen is overweight and soft and moderately tender without peritoneal signs across the low abdomen. Underneath the pannus there is mild erythema but not markedly inflamed at this time. Extremities are well perfused. Lower extremities with 2+ pitting edema. No blistering or erythema. postoperative scars over the knees. Const: Vital Signs, click to edit/add: Vital Signs - 24 hr 12/05/24 14:11 12/05/24 14:34 12/05/24 14:35 Temperature 97 F L Pulse Rate 81 Pulse Rate [Left P ulse Oximeter] Pulse Rate [Pulse Oximeter] 90 Pulse Rate [orthos tatic lying Left] Pulse Rate [orthos tatic sitting Left ] Pulse Rate [orthos tatic standing Lef t] Respiratory Rate 20 Blood Pressure 86/34 L Blood Pressure [Ri ght Arm] Blood Pressure [Ri ght Upper Arm] 72/45 L Blood Pressure [or thostatic lying Ri ght Arm] Blood Pressure [or thostatic sitting Right Arm] Blood Pressure [or thostatic standing ] Pulse Oximetry 95 95 94 Oxygen Delivery Me thod Room Air 12/05/24 14:36 12/05/24 14:47 12/05/24 15:06 Temperature Pulse Rate 83 80 Pulse Rate [Left P ulse Oximeter] Pulse Rate [Pulse Oximeter] Pulse Rate [orthos tatic lying Left] Pulse Rate [orthos tatic sitting Left ] Pulse Rate [orthos tatic standing Lef t] Respiratory Rate 12 Blood Pressure 92/32 L 94/49 L Blood Pressure [Ri ght Arm] Blood Pressure [Ri ght Upper Arm] Blood Pressure [or thostatic lying Ri ght Arm] Blood Pressure [or thostatic sitting Right Arm] Blood Pressure [or thostatic standing ] Pulse Oximetry 94 97 Oxygen Delivery Il thod 12/05/24 15:16 12/05/24 15:31 12/05/24 16:07 Temperature Pulse Rate 79 88 77 Pulse Rate [Left P ulse Oximeter] Pulse Rate [Pulse Oximeter] Pulse Rate [orthos tatic lying Left] Pulse Rate [orthos tatic sitting Left ] Pulse Rate [orthos tatic standing Lef t] Respiratory Rate 14 14 12 Blood Pressure 97/34 L 105/50 L 93/27 L Blood Pressure [Ri ght Arm] Blood Pressure [Ri ght Upper Arm] Blood Pressure [or thostatic lying Ri ght Arm] Blood Pressure [or thostatic sitting Right Arm] Blood Pressure [or thostatic standing ] Pulse Oximetry 95 98 [facility]08 12/05/24 16:20 12/05/24 16:32 Temperature Pulse Rate 80 77 79 Pulse Rate [Left P ulse Oximeter] Pulse Rate [Pulse Oximeter] Pulse Rate [orthos tatic lying Left] Pulse Rate [orthos tatic sitting Left ] Pulse Rate [orthos tatic standing Lef t] Respiratory Rate 17 12 Blood Pressure 88/37 L 102/44 L Blood Pressure [Ri ght Arm] Blood Pressure [Ri ght Upper Arm] Blood Pressure [or thostatic lying Ri ght Arm] Blood Pressure [or thostatic sitting Right Arm] Blood Pressure [or thostatic standing ] Pulse Oximetry 98 98 98 Oxygen Delivery Il thod 12/05/24 16:47 12/05/24 17:02 12/05/24 17:17 Temperature 96.5 F L Pulse Rate 76 77 72 Pulse Rate [Left P ulse Oximeter] Pulse Rate [Pulse Oximeter] Pulse Rate [orthos tatic lying Left] Pulse Rate [orthos tatic sitting Left ] Pulse Rate [orthos tatic standing Lef t] Respiratory Rate 14 15 16 Blood Pressure 113/48 L 110/87 137/84 Blood Pressure [Ri ght Arm] Blood Pressure [Ri ght Upper Arm] Blood Pressure [or thostatic lying Ri ght Arm] Blood Pressure [or thostatic sitting Right Arm] Blood Pressure [or thostatic standing ] Pulse Oximetry 99 95 96 Oxygen Delivery Me thod 12/05/24 17:42 12/05/24 17:42 12/05/24 17:48 Temperature 96.9 F L 96.9 F L Pulse Rate 87 Pulse Rate [Left P ulse Oximeter] 82 82 Pulse Rate [Pulse Oximeter] Pulse Rate [orthos tatic lying Left] Pulse Rate [orthos tatic sitting Left ] Pulse Rate [orthos tatic standing Lef t] Respiratory Rate 20 20 Blood Pressure Blood Pressure [Ri ght Arm] 115/52 L 115/52 L Blood Pressure [Ri ght Upper Arm] Blood Pressure [or thostatic lying Ri ght Arm] Blood Pressure [or thostatic sitting Right Arm] Blood Pressure [or thostatic standing ] Pulse Oximetry 97 97 Oxygen Delivery Me thod Room Air Room Air 12/05/24 17:48 12/05/24 17:50 Temperature Pulse Rate Pulse Rate [Left P ulse Oximeter] Pulse Rate [Pulse Oximeter] Pulse Rate [orthos tatic lying Left] 82 Pulse Rate [orthos tatic sitting Left ] 79 Pulse Rate [orthos tatic standing Lef t] 90 Respiratory Rate 20 Blood Pressure Blood Pressure [Ri ght Arm] Blood Pressure [Ri ght Upper Arm] Blood Pressure [or thostatic lying Ri ght Arm] 115/52 L Blood Pressure [or thostatic sitting Right Arm] 115/46 L Blood Pressure [or thostatic standing ] 113/48 L Pulse Oximetry 97 Oxygen Delivery Me thod Room Air Documenting provider has reviewed patient's vital signs: yes Course Vital Signs Vital signs: Initial Vital Signs Temperature 97 F L 12/05/24 14:11 Temperature Source Temporal Artery Scan 12/05/24 14:11 Pulse Rate 90 12/05/24 14:11 Respiratory Rate 20 12/05/24 14:11 Blood Pressure 72/45 L 12/05/24 14:11 Blood Pressure Mean 54 L 12/05/24 14:11 Blood Pressure Position Sitting 12/05/24 14:11 Pulse Oximetry 95 12/05/24 14:11 Oxygen Delivery Method Room Air 12/05/24 14:11 Vital Signs Temperature 97 F L 12/05/24 14:11 Pulse Rate 90 12/05/24 14:11 Respiratory Rate 20 12/05/24 14:11 Blood Pressure 72/45 L 12/05/24 14:11 Pulse Oximetry 95 12/05/24 14:11 Oxygen Delivery Method Room Air 12/05/24 14:11 Temperature 97.7 F 12/06/24 02:24 Pulse Rate 86 12/06/24 07:00 Respiratory Rate 20 12/06/24 02:24 Blood Pressure 134/46 L 12/06/24 02:24 Pulse Oximetry 96 12/06/24 02:24 Oxygen Delivery Method Room Air 12/06/24 02:24 Medications Administered Medications: Generic Name Dose Route Start Last Admin Trade Name Freq PRN Reason Stop Dose Admin Acetaminophen 975 mg 12/05/24 17:42 12/06/24 03:30 Acetaminophen 325 Mg Tablet PO 975 mg Q6H PRN Administration Amitriptyline HCl 25 mg 12/05/24 21:00 12/05/24 21:17 Amitriptyline 25 Mg Tablet PO 25 mg HS EDEL Administration Aspirin 81 mg 12/06/24 09:00 12/06/24 08:38 Aspirin 81 Mg Tablet Ec PO 81 mg DAILY EDEL Administration Clopidogrel Bisulfate 75 mg 12/06/24 09:00 12/06/24 08:40 Clopidogrel 75 Mg Tablet PO 75 mg DAILY EDEL Administration Clotrimazole 1 applic 12/05/24 21:00 12/05/24 19:55 Clotrimazole 1 % Cream TOPICAL 1 applic TID EDEL Administration Ezetimibe 10 mg 12/06/24 09:00 12/06/24 08:39 Ezetimibe 10 Mg Tablet PO 10 mg DAILY EDEL Administration Hydrocortisone Sodium Succinate 50 mg 12/06/24 01:00 12/06/24 06:56 Hydrocortisone Sod Succinate 50 Mg/Ml Inj IVP 50 mg Q6H EDEL Administration Hydromorphone HCl 0.2 mg 12/06/24 08:41 12/06/24 08:50 Hydromorphone 0.5 Mg/0.5 Ml Inj IVP 0.2 mg Q2H PRN Administration Sodium Chloride 1,000 mls @ 125 mls/hr 12/05/24 20:07 12/06/24 04:19 0.9 % Sodium Chloride 1000 Ml IV 125 mls/hr .Q8H EDEL Administration Insulin Aspart 0 unit 12/05/24 21:00 12/06/24 08:35 Insulin Aspart 100 Unit/Ml SUBCUT Not Given ACHS [facility] Protocol Levothyroxine Sodium 112 mcg 12/06/24 07:00 12/06/24 06:55 Levothyroxine 112 Mcg Tablet PO 112 mcg On Hold: 12/06/24 07:00 DAILY@0700 EDEL Administration Levothyroxine Sodium 25 mcg 12/06/24 07:00 12/06/24 06:55 Levothyroxine 25 Mcg Tablet PO 25 mcg On Hold: 12/06/24 07:00 DAILY@0700 EDEL Administration Melatonin 6 mg 12/05/24 17:42 12/05/24 21:17 Melatonin 3 Mg Tablet PO 6 mg HS PRN Administration Omeprazole 20 mg 12/05/24 18:00 12/05/24 19:11 Omeprazole [address] PO 20 mg QPM EDEL Administration Sodium Chloride 5 ml 12/05/24 17:42 12/06/24 06:59 Sodium Chloride 0.9 % (Flush) 10 Ml Syringe IVF 5 ml .FLUSH PRN Administration Sodium Chloride 5 ml 12/05/24 21:00 12/05/24 19:44 Sodium Chloride 0.9 % (Flush) 10 Ml Syringe IVF 5 ml BID EDEL Administration Triamcinolone Acetonide 1 applic 12/05/24 21:00 12/05/24 19:55 Triamcinolone Acetonide Cream 0.1 % TOPICAL 1 applic TID EDEL Administration Discontinued Medications Generic Name Dose Route Start Last Admin Trade Name Freq PRN Reason Stop Dose Admin Albuterol 2.5 mg 12/05/24 20:05 12/05/24 20:32 Albuterol Sulfate 2.5 Mg/3 Ml Vial.Irma WALTON 12/05/24 20:06 2.5 mg ONCE ONE Administration Albuterol 1.25 mg 12/06/24 06:26 12/06/24 08:07 Albuterol Sulfate 1.25 Mg/3 Ml Vial.Irma WALTON 12/06/24 06:27 1.25 mg ONCE ONE Administration Bisacodyl 10 mg 12/05/24 17:42 12/05/24 19:27 Bisacodyl 10 Mg Supp.Rect MS 12/05/24 17:43 10 mg DAILY ONE Administration Dextrose 25 gm 12/05/24 20:04 12/05/24 20:30 Dextrose 50 % Syringe IVP 12/05/24 20:05 25 gm ONCE ONE Administration Dextrose 25 gm 12/06/24 06:24 12/06/24 07:29 Dextrose 50 % Syringe IVP 12/06/24 06:25 25 gm ONCE ONE Administration Hydrocortisone Sodium Succinate 100 mg 12/05/24 19:08 12/05/24 19:44 Hydrocortisone Sod Succinate 50 Mg/Ml Inj IVP 12/05/24 19:09 100 mg ONCE ONE Administration Sodium Chloride 1,000 mls @ 1,000 mls/hr 12/05/24 14:33 12/05/24 15:41 0.9 % Sodium Chloride 1000 Ml IV 12/05/24 15:32 Infused .Q1H ONE Infusion Sodium Chloride 1,000 mls @ 1,000 mls/hr 12/05/24 16:27 12/06/24 04:20 0.9 % Sodium Chloride 1000 Ml IV 12/05/24 17:26 Infused .Q1H ONE Infusion Calcium Gluconate/Sodium Chloride 1,000 mg in 50 mls @ 100 mls/hr 12/06/24 06:27 12/06/24 07:42 Calcium Gluc 1,000mg/50 Ml IVPB 12/06/24 06:56 100 mls/hr ONCE ONE Administration Insulin Human Regular 10 unit 12/05/24 20:04 12/05/24 20:30 Insulin Regular, Human 100 Unit/Ml Vial IVP 12/05/24 20:05 10 unit ONCE ONE Administration Insulin Human Regular 10 unit 12/06/24 06:26 12/06/24 07:37 Insulin Regular, Human 100 Unit/Ml Vial IVP 12/06/24 06:27 10 unit ONCE ONE Administration Lidocaine HCl 6 ml 12/05/24 16:28 12/05/24 16:33 Lidocaine Hcl 2 % Jelly (Top) Sterile TOPICAL 12/05/24 16:29 6 ml ONCE ONE Administration Polyethylene Glycol 17 gm 12/05/24 19:10 12/05/24 21:00 Polyethylene Glycol 3350 17 Gm Pack PO 08/27/25 19:11 17 gm ONCE ONE Administration Sodium Zirconium Cyclosilicate 10 gm 12/06/24 06:26 12/06/24 08:01 Sodium Zirconium Cyclosilicate 10 Gm PO 12/06/24 06:27 10 gm ONCE ONE Administration Medical Decision Making MDM Narrative Medical decision making narrative: Does arrive hypotensive with complaints of shortness of breath and lightheadedness in the setting of described lower GI bleed. Will place 2 IVs. Still need to quantify what degree of bleeding we are talking about here. Repeat blood pressure checks is still low 86/34. Has been ordered for L of normal saline bolus. Tentative hydration though seems to be primarily experiencing peripheral/lower extremity edema. Certainly might be septic. Blood cultures will also be obtained. Unclear source at this time. Blood pressure has improved slightly least in the systolic in to the low 90s. Initial EKG independently reviewed by me shows a sinus rhythm with some PAC. Rate of 82. Looks like a partial right bundle branch block similar to prior. With benefits counselor able to do anoscopy exam. She has marked inflammation and a little desquamation of the perineal area. Not exactly cellulitic but this might be a source of infection. Very sensitive. Some subtle stippling of blood. I do managed to place an anoscope. I do not see any evidence of blood on obtained stool. I do not see evidence of active bleeding internally at this time. Labs began to return. Point of care creatinine is elevated further at 2.8 -- baseline already above 2. Lab creatinine returns later at 2.5 Unclear how this might play in to sepsis picture.. Potassium is also elevated at 5.5 -- this does not appear to have created changes in her EKG. Both of these have been trending up on review of labs. Increasing renal insufficiency/failure possibly, partially due to Lasix/iatrogenic. Over-diuresis? This might also be contributing to hypotension. Normal lactate. Hemoglobin looks good. It might be that the blood that she has been seeing is oozing from the perineal area and the intertrigo that is present here. One-view chest x-ray independently reviewed by me looks to show some mild vascular congestion. No effusion. Radiology over-read below Study:?XRay-Extremity Right Portable-12/05/2024 3:16:10 PM Ordering Physician:Bianka Mattson Final Report: INDICATION: Exertional dyspnea COMPARISON: CT abdomen pelvis 11/02/2024 TECHNIQUE: 1 view chest radiograph. FINDINGS: Devices: None. Lung volumes are moderate. Calcified granuloma left lower lobe is unchanged. No focal consolidation. Prominent pulmonary vascular markings. No definite peripheral septal lines. No pleural effusion. No pneumothorax. No pneumomediastinum. Heart size is borderline enlarged for volumes and techniques.. Bones: No acute findings. IMPRESSION: Mild pulmonary vascular congestion without definite edema. Dictated by Rachelle Whaley MD @ 12/05/2024 3:21:02 PM Clearly has abdominal pain on exam. This might be simply related to const ipation. I think would be prudent CT image though in this setting. Will not be using IV contrast. Review of records shows some concern of potential endometrial neoplasm. Perhaps this is where bleeding is occurring? Chaperoned vaginal exam does not show any evidence of bleeding. Hyperemic though. Initiating another bolus of fluids. Blood pressure 88/37. No clear source of infection at this point other than possible cellulitis. No evidence of significant bleeding. Non contrasted CT of abdomen and pelvis independently reviewed by me does show significant colonic stool particularly in rectum. 4:40 p.m. - 2nd set of blood cultures now collected. Minimal fluid in on 2nd L and blood pressure 102/44 Radiology over-read of CT abdomen pelvis below INDICATION: LOWER ABD PAIN. HYPOTENSION, BLEEDING, CONSTIPATION, RETAINING WATER IN LEGS. TECHNIQUE: CT abdomen and pelvis without contrast. COMPARISON: CT abdomen pelvis dated 11/02/2024. FINDINGS: Lower chest: Unchanged few scattered pulmonary micro nodules and left lower lobe calcified granuloma. Noncontrast technique limits solid organ evaluation. Liver: Scattered calcified granulomata. Gallbladder and bile ducts: Redemonstrated cholelithiasis without discrete evidence of acute cholecystitis. No biliary dilatation. Pancreas: Unremarkable. No mass or inflammation. Spleen: Scattered calcified granulomata. Adrenal glands: Normal in size. No nodules. Kidneys: No hydroureteronephrosis. Renal cortical hypodensities are not well evaluated on this noncontrast examination. 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 GI tract: Prominent colonic stool burden, with a rectal stool ball that measures 6.6 cm in diameter. The bowel is otherwise normal in caliber without evidence of obstruction normal appendix. Vasculature: Abdominal aorta is normal in caliber. Lymph nodes: No lymphadenopathy. Peritoneum/Abdominal Wall: Rectus diastasis no sign of mass or infiltration. No free air or significant free fluid. Pelvis: The endometrial thickening noted on the prior contrast-enhanced CT abdomen pelvis is not well evaluated on this examination. Bones: Bilateral total hip arthroplasties. Multilevel degenerative changes throughout the visualized thoracolumbar spine with severe bony spinal canal stenosis at L2-3, similar to prior. IMPRESSION: 1. Prominent colonic stool burden, with a rectal stool ball that measures 6.6 cm in diameter, compatible with the reported history of constipation. 2. 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 Please note that all CT scans at this facility use dose modulation, iterative reconstruction, and/or weight-based dosing when appropriate to reduce radiation dose to as low as reasonably achievable. Dictated by Kentrell Diamond MD @ 12/05/2024 4:50:48 PM Confirmed with hospitalist for acceptance. Continuing to assess need for antibiotics. Will continue to carefully fluid resuscitate. Medical Records Medical records reviewed: Yes I reviewed the patient's medical records Lab Data Lab results reviewed: Yes I reviewed the patient's lab results Labs: Lab Results 12/05/24 12/05/24 12/05/24 Range/Units 14:30 14:30 14:33 WBC 9.12 (4.50-11.00) K/uL RBC 3.37 L (4.00-5.20) m/uL Hgb 11.2 L (12.0-16.0) gm/dL Hct 34.7 (33.0-51.0) % MCV 103 H (80-100) fL MCH 33 (26-34) pg MCHC 32 (32-36) gm/dL RDW Coeff of Arun 13.1 (11.5-15.5) % Plt Count 335 (140-440) K/uL Neut % (Auto) 77.2 H (42.0-72.0) % Lymph % (Auto) 12.3 L (20-44) % [place] % (Auto) 8.2 (0.0-11.0) % Eos % (Auto) 1.0 (0.0-7.0) % Baso % (Auto) 0.3 (0.0-3.0) % Neut # (Auto) 7.00 (1.7-7.0) K/uL Lymph # (Auto) 1.10 (0.90-2.90) K/uL [place] # (Auto) 0.70 (0.00-0.90) K/UL Eos # (Auto) 0.09 (0.00-0.50) K/uL Baso # (Auto) 0.03 (0.00-0.30) K/uL Abs Immat Gran (auto) 0.09 (0.00-0.30) K/uL Imm/Tot Granulo (auto) 1.0 % INR 1.24 H (0.91-1.10) APTT 30 (23-33) Seconds VBG pH 7.313 L (7.32-7.43) VBG pCO2 35 L (40-50) mmHG VBG pO2 62.9 H (25-47) mmHG VBG HCO3 18 L (21-28) mmol/L Sodium 134 L (135-149) mmol/L Potassium 5.5 H (3.6-5.1) mmol/L Chloride 106 (96-114) mmol/L Carbon Dioxide 16 L (20-32) mmol/L Anion Gap 12 (7-15) mEq/L BUN 117 H (7-30) mg/dL Creatinine 2.5 H (0.5-1.5) mg/dL Estimated Creat Clear 16.27 Estimated GFR 19 ml/min Glucose 174 H (60-115) mg/dL Lactate 1.5 (0.5-1.9) mmol/L Calcium 9.8 (8.4-10.6) mg/dL Total Bilirubin 0.4 (0.1-1.5) mg/dL Direct Bilirubin 0.3 (0.0-0.5) mg/dL AST 22 (12-35) U/L ALT 13 (4-35) U/L Alkaline Phosphatase 68 (40-150) U/L Troponin I < 0.01 (0.01-0.04) ng/mL C-Reactive Protein 3.7 H (0.5-1.0) mg/dL NT-Pro-B Natriuret Pep 162 (See Note) pg/mL Total Protein 7.7 (6.0-8.3) g/dL Albumin 3.9 (3.3-5.0) g/dL Procalcitonin 0.40 (<0.50) ng/mL Urine Color (Yellow) Urine Appearance (Clear) Urine pH (5.0-8.5) Ur Specific [place] (1.000-1.030) Urine Protein (Negative) Urine Glucose (UA) (Negative) Urine Ketones (Negative) Urine Blood (Negative) Urine Nitrite (Negative) Urine Bilirubin (Negative) Urine Urobilinogen (0.2-1.0) Ur Leukocyte Esterase (Negative) Urine RBC (0-2) Urine WBC (0-5) Ur Squamous Epith Cells (None-Few) Urine Bacteria (None) SARS-CoV-2 (PCR) (Negative) Influenza Type A (PCR) (Negative) Influenza Type B (PCR) (Negative) Lab Acknowledgement Test Added Test Added POC Creatinine (0.6-1.3) mg/dl Blood Type A Positive Antibody Screen NEGATIVE 12/05/24 12/05/24 12/05/24 Range/Units 14:58 15:18 15:30 WBC (4.50-11.00) K/uL RBC (4.00-5.20) m/uL Hgb (12.0-16.0) gm/dL Hct (33.0-51.0) % MCV (80-100) fL MCH (26-34) pg MCHC (32-36) gm/dL RDW Coeff of Arun (11.5-15.5) % Plt Count (140-440) K/uL Neut % (Auto) (42.0-72.0) % Lymph % (Auto) (20-44) % [place] % (Auto) (0.0-11.0) % Eos % (Auto) (0.0-7.0) % Baso % (Auto) (0.0-3.0) % Neut # (Auto) (1.7-7.0) K/uL Lymph # (Auto) (0.90-2.90) K/uL [place] # (Auto) (0.00-0.90) K/UL Eos # (Auto) (0.00-0.50) K/uL Baso # (Auto) (0.00-0.30) K/uL Abs Immat Gran (auto) (0.00-0.30) K/uL Imm/Tot Granulo (auto) % INR (0.91-1.10) APTT (23-33) Seconds VBG pH (7.32-7.43) VBG pCO2 (40-50) mmHG VBG pO2 (25-47) mmHG VBG HCO3 (21-28) mmol/L Sodium (135-149) mmol/L Potassium (3.6-5.1) mmol/L Chloride (96-114) mmol/L Carbon Dioxide (20-32) mmol/L Anion Gap (7-15) mEq/L BUN (7-30) mg/dL Creatinine (0.5-1.5) mg/dL Estimated Creat Clear Estimated GFR ml/min Glucose (60-115) mg/dL Lactate (0.5-1.9) mmol/L Calcium (8.4-10.6) mg/dL Total Bilirubin (0.1-1.5) mg/dL Direct Bilirubin (0.0-0.5) mg/dL AST (12-35) U/L ALT (4-35) U/L Alkaline Phosphatase (40-150) U/L Troponin I (0.01-0.04) ng/mL C-Reactive Protein (0.5-1.0) mg/dL NT-Pro-B Natriuret Pep (See Note) pg/mL Total Protein (6.0-8.3) g/dL Albumin (3.3-5.0) g/dL Procalcitonin (<0.50) ng/mL Urine Color Yellow (Yellow) Urine Appearance Clear (Clear) Urine pH 5.0 (5.0-8.5) Ur Specific [place] 1.010 (1.000-1.030) Urine Protein Negative (Negative) Urine Glucose (UA) Negative (Negative) Urine Ketones Negative (Negative) Urine Blood Negative (Negative) Urine Nitrite Negative (Negative) Urine Bilirubin Negative (Negative) Urine Urobilinogen 0.2 (0.2-1.0) Ur Leukocyte Esterase Negative (Negative) Urine RBC 0-2 (0-2) Urine WBC 0-2 (0-5) Ur Squamous Epith Cells Few (None-Few) Urine Bacteria None (None) SARS-CoV-2 (PCR) Negative SARS-CoV-2 (Negative) Influenza Type A (PCR) Negative PCR FLU A (Negative) Influenza Type B (PCR) Negative PCR FLU B (Negative) Lab Acknowledgement POC Creatinine 2.8 H (0.6-1.3) mg/dl Blood Type Antibody Screen 12/05/24 12/05/24 Range/Units 15:48 16:34 WBC (4.50-11.00) K/uL RBC (4.00-5.20) m/uL Hgb (12.0-16.0) gm/dL Hct (33.0-51.0) % MCV (80-100) fL MCH (26-34) pg MCHC (32-36) gm/dL RDW Coeff of Arun (11.5-15.5) % Plt Count (140-440) K/uL Neut % (Auto) (42.0-72.0) % Lymph % (Auto) (20-44) % [place] % (Auto) (0.0-11.0) % Eos % (Auto) (0.0-7.0) % Baso % (Auto) (0.0-3.0) % Neut # (Auto) (1.7-7.0) K/uL Lymph # (Auto) (0.90-2.90) K/uL [place] # (Auto) (0.00-0.90) K/UL Eos # (Auto) (0.00-0.50) K/uL Baso # (Auto) (0.00-0.30) K/uL Abs Immat Gran (auto) (0.00-0.30) K/uL Imm/Tot Granulo (auto) % INR (0.91-1.10) APTT (23-33) Seconds VBG pH (7.32-7.43) VBG pCO2 (40-50) mmHG VBG pO2 (25-47) mmHG VBG HCO3 (21-28) mmol/L Sodium (135-149) mmol/L Potassium (3.6-5.1) mmol/L Chloride (96-114) mmol/L Carbon Dioxide (20-32) mmol/L Anion Gap (7-15) mEq/L BUN (7-30) mg/dL Creatinine (0.5-1.5) mg/dL Estimated Creat Clear Estimated GFR ml/min Glucose (60-115) mg/dL Lactate (0.5-1.9) mmol/L Calcium (8.4-10.6) mg/dL Total Bilirubin (0.1-1.5) mg/dL Direct Bilirubin (0.0-0.5) mg/dL AST (12-35) U/L ALT (4-35) U/L Alkaline Phosphatase (40-150) U/L Troponin I (0.01-0.04) ng/mL C-Reactive Protein (0.5-1.0) mg/dL NT-Pro-B Natriuret Pep (See Note) pg/mL Total Protein (6.0-8.3) g/dL Albumin (3.3-5.0) g/dL Procalcitonin (<0.50) ng/mL Urine Color (Yellow) Urine Appearance (Clear) Urine pH (5.0-8.5) Ur Specific [place] (1.000-1.030) Urine Protein (Negative) Urine Glucose (UA) (Negative) Urine Ketones (Negative) Urine Blood (Negative) Urine Nitrite (Negative) Urine Bilirubin (Negative) Urine Urobilinogen (0.2-1.0) Ur Leukocyte Esterase (Negative) Urine RBC (0-2) Urine WBC (0-5) Ur Squamous Epith Cells (None-Few) Urine Bacteria (None) SARS-CoV-2 (PCR) (Negative) Influenza Type A (PCR) (Negative) Influenza Type B (PCR) (Negative) Lab Acknowledgement Test Added Test Added POC Creatinine (0.6-1.3) mg/dl Blood Type Antibody Screen Critical Care Time Critical Care Time Critical Care Time: Yes Attestation: The patient required my highest level preparedness to intervene emergently and I personally spent this critical care time directly and personally managing the patient. This critical care time included: Obtaining a history; Examining the patient; Pulse oximetry; Ordering and reviewing of studies; Arranging urgent treatment with development of a management plan; Evaluation of patients response to treatment; Frequent reassessment discussions with other providers. This critical care time was performed to assess and manage the high probability of imminent life-threatening deterioration that could result in multiorgan failure. It was exclusive of separate billable procedures and treating other patients and teaching time. Total Critical Care Time in Minutes: 90 Discharge Plan Discharge Clinical Impression: Acute hypotension, Acute kidney injury, Edema, peripheral, Hyperkalemia, Intertrigo, Obstipation Patient Disposition: Admitted As Inpatient Condition: Guarded Procedures ABG Interpretation ABG Results: 12/05/24 14:30 VBG pH 7.313 L VBG pCO2 35 L VBG pO2 62.9 H VBG HCO3 18 L
--- NOTE | 2024-12-05 14:53 | CRLHL7_ITS ---
For Patients: As a result of the Century Cures Act, medical imaging exams and procedure reports are released immediately into your electronic medical record. You may view this report before your referring provider. If you have questions, please contact your health care provider. INDICATION: Exertional dyspnea COMPARISON: CT abdomen pelvis 11/02/2024 TECHNIQUE: 1 view chest radiograph. FINDINGS: Devices: None. Lung volumes are moderate. Calcified granuloma left lower lobe is unchanged. No focal consolidation. Prominent pulmonary vascular markings. No definite peripheral septal lines. No pleural effusion. No pneumothorax. No pneumomediastinum. Heart size is borderline enlarged for volumes and techniques.. Bones: No acute findings. IMPRESSION: Mild pulmonary vascular congestion without definite edema. Dictated by Rachelle Whaley MD @ 12/05/2024 3:21:02 PM (Electronically Signed)
[2024-12-05 14:55] LABS: Hematocrit 34.7 % (33.0-51.0); Hemoglobin* 11.2 gm/dL (12.0-16.0); Immature Granulocytes Abs Auto 0.09 K/uL (0.00-0.30); Immature Granulocytes Pct Auto 1.0 %; Mean Corpuscular HGB Conc 32 gm/dL (32-36); Mean Corpuscular Hemoglobin 33 pg (26-34); Mean Corpuscular Volume 103 fL (80-100); RDW Coefficient of Variation % 13.1 % (11.5-15.5); Red Blood Count 3.37 m/uL (4.00-5.20); White Blood Count* 9.12 K/uL (4.50-11.00)
[2024-12-05 14:57] LABS: Albumin* 3.9 g/dL (3.3-5.0); Chloride* 106 mmol/L (96-114); Lymphocytes Absolute Auto 1.10 K/uL (0.90-2.90); Potassium* 5.5 mmol/L (3.6-5.1); Slide Review Reflex No; Sodium* 134 mmol/L (135-149)
[2024-12-05 14:58] LABS: Creatinine, Point-of-Care* 2.8 mg/dl (0.6-1.3)
[2024-12-05 15:01] LABS: Alanine Aminotransferase* 13 U/L (4-35); Alkaline Phosphatase* 68 U/L (40-150); Anion Gap 12 mEq/L (7-15); Aspartate Amino Transferase* 22 U/L (12-35); Bilirubin Direct* 0.3 mg/dL (0.0-0.5); Bilirubin Total* 0.4 mg/dL (0.1-1.5); Blood Urea Nitrogen* 117 mg/dL (7-30); Calcium* 9.8 mg/dL (8.4-10.6); Carbon Dioxide* 16 mmol/L (20-32); Creatinine* 2.5 mg/dL (0.5-1.5); Est. Creatinine Clearance* 16.27; Estimated Glomerular Filt Rate 19 ml/min; Glucose* 174 mg/dL (60-115); Total Protein* 7.7 g/dL (6.0-8.3)
[2024-12-05 15:04] LABS: Lactate* 1.5 mmol/L (0.5-1.9)
--- NOTE | 2024-12-05 15:07 | PC.NURSE ---
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
[2024-12-05 15:16] LABS: INR 1.24 (0.91-1.10); Prothrombin Time 16.5 Seconds
--- NOTE | 2024-12-05 15:20 | CRLHL7_ITS ---
For Patients: As a result of the Century Cures Act, medical imaging exams and procedure reports are released immediately into your electronic medical record. You may view this report before your referring provider. If you have questions, please contact your health care provider. INDICATION: LOWER ABD PAIN. HYPOTENSION, BLEEDING, CONSTIPATION, RETAINING WATER IN LEGS. TECHNIQUE: CT abdomen and pelvis without contrast. COMPARISON: CT abdomen pelvis dated 11/02/2024. FINDINGS: Lower chest: Unchanged few scattered pulmonary micro nodules and left lower lobe calcified granuloma. Noncontrast technique limits solid organ evaluation. Liver: Scattered calcified granulomata. Gallbladder and bile ducts: Redemonstrated cholelithiasis without discrete evidence of acute cholecystitis. No biliary dilatation. Pancreas: Unremarkable. No mass or inflammation. Spleen: Scattered calcified granulomata. Adrenal glands: Normal in size. No nodules. Kidneys: No hydroureteronephrosis. Renal cortical hypodensities are not well evaluated on this noncontrast examination. 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 GI tract: Prominent colonic stool burden, with a rectal stool ball that measures 6.6 cm in diameter. The bowel is otherwise normal in caliber without evidence of obstruction normal appendix. Vasculature: Abdominal aorta is normal in caliber. Lymph nodes: No lymphadenopathy. Peritoneum/Abdominal Wall: Rectus diastasis no sign of mass or infiltration. No free air or significant free fluid. Pelvis: The endometrial thickening noted on the prior contrast-enhanced CT abdomen pelvis is not well evaluated on this examination. Bones: Bilateral total hip arthroplasties. Multilevel degenerative changes throughout the visualized thoracolumbar spine with severe bony spinal canal stenosis at L2-3, similar to prior. IMPRESSION: 1. Prominent colonic stool burden, with a rectal stool ball that measures 6.6 cm in diameter, compatible with the reported history of constipation. 2. 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 Please note that all CT scans at this facility use dose modulation, iterative reconstruction, and/or weight-based dosing when appropriate to reduce radiation dose to as low as reasonably achievable. Dictated by Kentrell Diamond MD @ 12/05/2024 4:50:48 PM (Electronically Signed)
[2024-12-05 15:43] LABS: Procalcitonin* 0.40 ng/mL (<0.50)
[2024-12-05 15:46] LABS: Appearance Urine Clear (Clear)
[2024-12-05 16:07] LABS: HCO3 VBG 18 mmol/L (21-28); PCO2 VBG 35 mmHG (40-50); PO2 VBG 62.9 mmHG (25-47); pH VBG 7.313 (7.32-7.43)
[2024-12-05] MEDS: lidocaine HCL 2 % JELLY (TOP) STERILE 6 ML TOPICAL (16:33)
[2024-12-05 16:58] LABS: PCR FLU A Negative PCR FLU A (Negative); PCR FLU B Negative PCR FLU B (Negative); SARS PCR* Negative SARS-CoV-2 (Negative)
[2024-12-05 17:02] LABS: NT Pro B Type NatriureticPept* 162 pg/mL (See Note)
--- NOTE | 2024-12-05 17:41 | PM.IMHP1 ---
Assessment and Plan Assessment and plan (1) Acute adrenocortical insufficiency: Problem comment: -Given the hypotension, acidosis, low sodium, elevated potassium, mild anemia, anorexia/weight loss, fatigue/weakness, unsteady gait, abdominal pain - will treat presumptively with IV hydrocortisone. 100mg now, 50mg q6 hours. -confirm with cosyntropin stim test at a later point. -ordered baseline cortisol, ACTH and Renin. Status: Acute (2) Acute hypotension: Problem comment: low upon arrival to the ED low normal here (typically on antihypertensives) not orthostatic addressing a possible acute adrenal insufficiency as cause Status: Acute (3) Pulmonary HTN: Problem comment: -BNP and troponin are normal; mild edema on CXR. on room air. -may not be in exacerbation but likely a factor. Echo done September 2024 LV function 72% right ventral mildly enlerged, global function normal severe tricuspid regurg elevated filling pressures; 45+RAP Status: Acute (4) Acute kidney injury: Problem comment: 12/05/24: 117/2.5, baseline 0.9 with BUN 25 noted in September fluids, steroids for suspected adrenal issue - not in obvious heart failure Status: Acute (5) Hyperkalemia: Problem comment: -increasing despite fluids and DEVONTE improving -will give insulin w/dextrose chaser and albuterol nebulizer Status: Acute (6) Hyponatremia: Problem comment: noted, following Status: Acute (7) History of CVA (cerebrovascular accident): Problem comment: -September 2024. -on aspirin, plavix and ezetimibe -two transient 1-2 minute episodes of garbled speech, 1 on 09/30/2024 and 1 on 10/02/2024, with complete resolution of symptoms tele neurology, Dr. Soares. Recommending continuing aspirin 81 mg daily, zetia if not taking statin, recommending Zio patch on discharge, weight management (consider decreasing amitriptyline or other medication alternative), normotensive blood pressure management, glucose management in setting of diabetes mellitus. +plavix added at f/u ED for TIA the week after September discharge - MRI of brain without contrast 11/14/2024: Maturation of the now late subacute infarct within left basal ganglia and frontal centrum semiovale. Stable chronic cerebellar lacunar type infarcts. Status: Acute (8) Dysfunctional gallbladder: Problem comment: -known stones; EF 10% with symptoms -LFTS are normal -monitor but likely this can be addressed in coming weeks Status: Acute (9) Thickened endometrium: Problem comment: -this may be the cause of the bleeding she has seen -outpatient [facility] referral and close follow-up appropriate Status: Acute (10) Intertrigo: Problem comment: -topical antifungals/steroids/barrier cream Status: Acute (11) Obstipation: Problem comment: -rectal stool ball noted on CT - admitted 12/05/24 -suppository and miralax and fluids -monitor Status: Acute (12) Bloated abdomen: Problem comment: Per patient, this was the reason for her presentation to the ED on 11/14/2024. constipation continues, rectal stool ball on admission 12/05/24 Status: Resolved (13) Taste sense altered: Problem comment: -comprehensive workup with previous hospitalization. EGD, zinc levels all came back normal. symptoms/weight loss continue. could also be related to adrenal insufficiency. Status: Acute (14) Hyperlipidemia: Problem comment: intolerant of statins; on ezetimibe (post stroke) Status: Acute (15) Diabetes mellitus type 2, controlled: Problem comment: Hemoglobin A1c 6.3 - 6.6 hold metformin, SSI and accuchecks frequently given the hydrocortisone and hyperkalemia treatment (insulin and D50) Status: Acute (16) Acquired hypothyroidism: Problem comment: TSH suppressed with normal free T4 and low T3 as of 11/14/24 Status: Acute (17) Spinal stenosis of lumbar region with neurogenic claudication: Problem comment: Chronic, followed by PCP and Neurosurgery right leg worse than left on nightly amitriptyline 25mg Status: Acute (18) Essential hypertension: Problem comment: hold meds Status: Acute Hospitalist- H&P: HPI History of Present Illness Date Seen: 12/05/24 Chief complaint: bleeding, constipation, retaining water on ankles Narrative: ADMISSION HISTORY AND PHYSICAL - HOSPITALIST Chief Complaint: bleeding/constipation/retaining water on ankles w/further clarification: weakness/fatigue/no energy; excoriated skin on her bottom and current yeast infection, bright red blood in underwear, constipated. HPI: 79 y/o with a recent hx of a stroke (left basal ganglia and guerin radiata infarcts) presents to our ED with fatigue, weakness, BRB, and just feeling lousy/weak. 2-3 months of declining health - highlighted by 9 ER visits (two of which were overnight obs) and [address] Ponce. 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 in the setting of diabetes, HTN, obesity, hypothyroidism, GERD. She has never had heart issues other than HTN. she has never had CHF or DKA or HHS, no hx of cancer, no history of mental health disorder. Does not drink, smoke, vape or use recreational drugs. 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 Hypotension treated with fluids; no ACS identified, no Heart failure or sepsis identified. Handed off to the Hospitalist with hypotension, elevated potassium, worsening DEVONTE, possible bleeding Arrival to the floor: Hypotension resolved, not orthostatic, on room air, good historian with flat/slightly sad deposition. CODE STATUS: FULL CODE PCP: Dr. Wilks EMERGENCY CONTACT PLAN: [facility] Rel To Pat Cell I've updated the PFSH, medications and allergies in the Expanse tabs. INVESTIGATIONS: LABS/MICRO/ECG/IMAGING 137/84. Pulse 72. RR 16. Afebrile. O2 sat 96% on room air. She arrived at 2:00 p.m. this afternoon in the ED with a blood pressure of 72/45, 86/34, 92/32, slowly increasing until arrival to the floor 137/84. she is not orthostatic. Pulse 70s Respiratory rate 12 to 16, unlabored. Normal saturations on room air. Weight is 97.2 kilos. BMI is 37. Labs reveal: Normal white blood cell count 9.12. Hemoglobin is 11.2 down from a baseline of about 12-1/2 to 13-1/2. MCV 103. Normal platelets. INR is elevated both in September and on day of presentation 1.3-1.24 7.3, slightly acidotic. Bicarb is 16. Her sodium has been depressed since November 02 ranging 133-131. Currently 134. Potassium is 5.5 in his been hovering just about 5 since October. Her bicarb is the lowest it has been since earlier this summer at a 16. Her BUN is 117 and her creatinine is 2.5. This is markedly elevated from a previous baseline of 28 and 1.1 in September Her glucose is 174. Her lactate is normal. Liver enzymes, troponin = normal. BNP is normal. CRP is only mildly elevated at 3.7 and she has a normal procalcitonin. Notably her protein and albumin are also normal. Her UA is negative. Notably negative for protein. 2 blood cultures are pending Triple respiratory swab negative. Her noncontrast CT abdomen pelvis revealed: 1. Prominent colonic stool burden, with a rectal stool ball that measures 6.6 cm in diameter, compatible with the reported history of constipation. 2. 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 One-view chest x-ray in the ED showed: Lung volumes are moderate. Calcified granuloma left lower lobe is unchanged. No focal consolidation. Prominent pulmonary vascular markings. No definite peripheral septal lines. No pleural effusion. No pneumothorax. No pneumomediastinum. Heart size is borderline enlarged for volumes and techniques.. HIDA scan done and clinic this last week: 1. No evidence of cystic duct obstruction to support acute cholecystitis. No evidence of common bile duct obstruction. 2. Gallbladder ejection fraction measures 10 %, below normal limits. Findings are nonspecific, but can be seen with gallbladder dysfunction. Upper Endoscopy done by PCP (Kris) Normal RUQ u/s first week of november Cholelithiasis without evidence of cholecystitis. CT October [address] Abd/Pelvis 1. Distended gallbladder containing multiple stones. Questionable wall thickening. Recommend sonography for further evaluation. 2. Probable thickening of the endometrium. This could be neoplastic. Additional evaluation is recommended. Sonography would be the imaging study of choice. Item number next other nonacute appearing findings as above. Echo done September 2024 LV function 72% right ventral mildly enlerged, global function normal severe tricuspid regurg elevated filling pressures; 45+RAP REVIEW OF SYSTEMS: 12-point ROS completed with patient and negative unless otherwise stated in HPI or below. PHYSICAL EXAM: CONSTITUTIONAL: alert, tearful (school shooting this day in [facility] [facility] school), tired appearing. GENERAL: Well-developed and above ideal body weight, in no respiratory distress. VITAL SIGNS: see record. HEENT: Sclerae are anicteric. No petechiae. CARDIAC: rhythm is regular. There is no S3 or rub. No harsh murmurs. Extremities 2+ edema with symmetrical pulses. PULM: good air entry with no wheeze. NEURO: Speech is fluent. A brief neurologic exam is negative. SKIN: pannus: mild erythema PERINEUM: I did not repeat the vaginal exam from the ED; groin folds have mild erythema. posterior gluteal fold: excoriated and raw. not bleeding. PSYCHIATRIC: sad/flat. ADMIT TO MEDSURG: FLOOR CARE DVT: SCDs GI: PO intake, PPI Time spent: Today I spent 75 minutes seeing the patient, discussing the patient with ER staff, reviewing Expanse and EPIC notes/diagnostics, discussing the care plan with our care time that includes social work, PT/OT, pharmacy, RT, jail and documenting my impressions and plan in the medical record. MEDICAL NECESSITY FOR HOSPITALIZATION Anticipated midnights in the hospital: 2 Admitting diagnosis: DEVONTE, acute adrenal insufficiency (acute hypotension, hyperkalemia, hyponatremia), pulmonary HTN, hx of recent stroke Risk of morbidity and mortality: high Acuity is characterized as high and reflected in: worsening edema, kidney function, need for IV corticosteroids This patient will require hospital services as outlined in the assessment and plan in order to stabilize and be safely discharged to a lower level of care. Because of the risk and acuity as described above, this patient cannot be managed at a lower level of care. LENGTH OF STAY: 2 IP ? Anticipated LOS>2 midnights due to acuity of clinical presentation requiring inpatient level of care Medical Decision Making Medical Decision Making Has patient completed a Health Care Directive: No PFSH [facility] Medical History (Updated 12/05/24 @ 20:41 by Tamika Johnson MD) Left hip postoperative wound infection (01/15/22) ?T81.49XA - Infection following a procedure, other surgical site, initial encounter (ICD-10) Cholelithiasis ?K80.20 - Calculus of gallbladder without cholecystitis without obstruction (ICD-10) Cerebrovascular accident ?I63.9 - Cerebral infarction, unspecified (ICD-10) Hyperlipidemia ?E78.5 - Hyperlipidemia, unspecified (ICD-10) Major 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 (12/22/15) ?F32.5 - Major depressive disorder, single episode, in full remission (ICD-10) Spinal stenosis of lumbar region with neurogenic claudication (03/20/15) ?M48.062 - Spinal stenosis, lumbar region with neurogenic claudication (ICD-10) Lumbar radiculopathy ?M54.16 - Radiculopathy, lumbar region (ICD-10) Lumbosacral radiculitis ?M54.17 - Radiculopathy, lumbosacral region (ICD-10) Lumbar spondylosis ?M47.816 - Spondylosis without myelopathy or radiculopathy, lumbar region (ICD-10) Obesity (BMI 30-39.9) ?E66.9 - Obesity, unspecified (ICD-10) Chronic kidney disease, stage 3a ?N18.31 - Chronic kidney disease, stage 3a (ICD-10) Insomnia ?G47.00 - Insomnia, unspecified (ICD-10) Acquired hypothyroidism ?E03.9 - Hypothyroidism, unspecified (ICD-10) 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 - Stenosis of larynx (ICD-10) Diabetes mellitus type 2, controlled ?E11.9 - Type 2 diabetes mellitus without complications (ICD-10) Vitamin D deficiency ?E55.9 - Vitamin D deficiency, unspecified (ICD-10) Essential hypertension ?I10 - Essential (primary) hypertension (ICD-10) Surgical History (Updated 12/05/24 @ 20:41 by Tamika Johnson MD) H/O bilateral hip replacements ?Z96.643 - Presence of artificial hip joint, bilateral (ICD-10) History of bilateral knee replacement ?Z96.653 - Presence of artificial knee joint, bilateral (ICD-10) S/P total hip arthroplasty (09/21/21) ?Z96.649 - Presence of unspecified artificial hip joint (ICD-10) Social History (Updated 12/05/24 @ 18:06 by Tamika Johnson MD) Narrative: 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. Lives with her . She has been for 53 years. They have 2 sons and 2 granddaughters. Is active in her bertin. What is your current living situation?: I presently have a place to live Problems where you live: no known problems Problems where you live details: NA In the past 12 months, utilities in danger of being shut off: no In past 12 months, lack of transportation kept you from medical appts, meetings, work, or getting things needed for daily living: no In the past 12 mos, have been you worried that your food would run out before you had money to buy more?: never true In the past 12 mos, the food you bought just didn't last and you didn't have money to buy more?: never true Highest level of school completed/degree received: Master's degree Smoking Status: Never smoker Do you use any of these nicotine containing products: None Second hand tobacco smoke exposure: No How often do you have a drink containing alcohol: never How often do you have six or more drinks on one occasion: Never AUDIT-C Alcohol total score: 0 Non-prescribed substance use: denies use Caffeine: Yes (Diet Pepsi, Daily) How often does anyone, including family, friends and others, physically hurt you: never How often does anyone, including family, friends and others, insult or talk down to you: never How often does anyone, including family, friends and others, threaten you with harm: never How often does anyone, including family, friends and others, scream or curse at you: never service: No Meds Home Medications and Allergies Home Medications ?Medication ?Instructions ?Recorded ?Confirmed ?Type amitriptyline 25 mg tablet 25 mg PO QPM 01/31/24 12/05/24 History ergocalciferol (vitamin D2) 1,250 1,250 mcg PO WE 01/31/24 12/05/24 History mcg (50,000 unit) capsule levothyroxine 137 mcg tablet 137 mcg PO DAILY 01/31/24 12/05/24 History metformin 1,000 mg tablet 1,000 mg PO BID 01/31/24 12/05/24 History omeprazole 20 mg capsule,delayed 20 mg PO QPM 01/31/24 12/05/24 History release aspirin 81 mg tablet 81 mg PO DAILY #90 tabs 10/03/24 12/05/24 Rx clopidogrel 75 mg tablet 75 mg PO DAILY #30 tabs 10/04/24 12/05/24 Rx ezetimibe 10 mg tablet (Zetia) 10 mg PO DAILY #90 tabs 10/23/24 12/05/24 Rx lisinopril 20 1 tab PO DAILY #90 tabs 11/07/24 12/05/24 Rx mg-hydrochlorothiazide 25 mg tablet docusate sodium 50 mg capsule 50 mg PO BID #60 caps 11/15/24 12/05/24 Rx furosemide 20 mg tablet (Lasix) 40 mg PO QAM 11/29/24 12/05/24 History nystatin 100,000 unit/gram topical 1 applic topical BID #30 grams 12/03/24 12/05/24 Rx cream Allergies Allergy/AdvReac Type Severity Reaction Status Date / Time atorvastatin Allergy Unknown Verified 11/29/24 14:51 niacin Allergy Unknown Verified 11/29/24 14:51 piroxicam Allergy Unknown Verified 11/29/24 14:51 pravastatin Allergy Unknown Verified 11/29/24 14:51 rosuvastatin Allergy Unknown Verified 11/29/24 14:51 simvastatin Allergy Unknown Verified 11/29/24 14:51 doxycycline Allergy Verified 11/29/24 14:51 erythromycin base Allergy Verified 11/29/24 14:51 morphine Allergy Verified 11/29/24 14:51 Exam Const: Vital Signs, click to edit/add: Vital Signs - 24 hr 12/05/24 14:11 12/05/24 14:34 12/05/24 14:35 Temperature 97 F L Pulse Rate 81 Pulse Rate [Pulse Oximeter] 90 Respiratory Rate 20 Blood Pressure 86/34 L Blood Pressure [Ri ght Upper Arm] 72/45 L Pulse Oximetry 95 95 94 Oxygen Delivery Me thod Room Air 12/05/24 14:36 12/05/24 14:47 12/05/24 15:06 Temperature Pulse Rate 83 80 Pulse Rate [Pulse Oximeter] Respiratory Rate 12 Blood Pressure 92/32 L 94/49 L Blood Pressure [Ri ght Upper Arm] Pulse Oximetry 94 97 Oxygen Delivery Me thod 12/05/24 15:16 12/05/24 15:31 12/05/24 16:07 Temperature Pulse Rate 79 88 77 Pulse Rate [Pulse Oximeter] Respiratory Rate 14 14 12 Blood Pressure 97/34 L 105/50 L 93/27 L Blood Pressure [Ri ght Upper Arm] Pulse Oximetry 95 98 97 [facility] 12[facility] 16:08 12/05/24 16:20 12/05/24 16:32 Temperature Pulse Rate 80 77 79 Pulse Rate [Pulse Oximeter] Respiratory Rate 17 12 Blood Pressure 88/37 L 102/44 L Blood Pressure [Ri ght Upper Arm] Pulse Oximetry 98 98 98 [facility] 12/[facility]/24 16:47 12/05/24 17:02 12/05/24 17:17 Temperature 96.5 F L Pulse Rate 76 77 72 Pulse Rate [Pulse Oximeter] Respiratory Rate 14 15 16 Blood Pressure 113/48 L 110/87 137/84 Blood Pressure [Ri ght Upper Arm] Pulse Oximetry 99 95 96 Oxygen Delivery [facility] Hospitalist - H&P: Result Labs Labs: Short CBC 12/05/24 Range/Units 14:33 WBC 9.12 (4.50-11.00) K/uL Hgb 11.2 L (12.0-16.0) gm/dL Hct 34.7 (33.0-51.0) % Plt Count 335 (140-440) K/uL BMP 12/05/24 14:33 Sodium 134 L Potassium 5.5 H Chloride 106 Carbon Dioxide 16 L BUN 117 H Creatinine 2.5 H Glucose 174 H Calcium 9.8 Cardiac Enzymes 12/05/24 Range/Units 14:33 Troponin I < 0.01 (0.01-0.04) ng/mL Liver Function 12/05/24 Range/Units 14:33 Total Bilirubin 0.4 (0.1-1.5) mg/dL Direct Bilirubin 0.3 (0.0-0.5) mg/dL AST 22 (12-35) U/L ALT 13 (4-35) U/L Alkaline Phosphatase 68 (40-150) U/L Albumin 3.9 (3.3-5.0) g/dL Urine 12/05/24 Range/Units 15:30 Urine Color Yellow (Yellow) Urine Appearance Clear (Clear) Urine pH 5.0 (5.0-8.5) Ur Specific [place] 1.010 (1.000-1.030) Urine Protein Negative (Negative) Urine Glucose (UA) Negative (Negative)
--- NOTE | 2024-12-05 19:08 | PC.NURSE ---
End of shift (CCU3) Patient admitted for GI bleeding, difficulty breathing. Patient is afebrile, vitals are stable. She has several reddened skin areas (see wound assessment). IV of left AC.Patient is on community coordinator. Report given to next shift.
[2024-12-05] MEDS: OMEPRAZOLE 20 MG CAPSULE DR PO (19:11)
[2024-12-05 19:17] LABS: Hemoglobin* 10.6 gm/dL (12.0-16.0)
[2024-12-05 19:29] LABS: Chloride* 107 mmol/L (96-114); Sodium* 135 mmol/L (135-149)
[2024-12-05 19:30] LABS: Potassium* 5.7 mmol/L (3.6-5.1)
[2024-12-05 19:32] LABS: Blood Urea Nitrogen* 106 mg/dL (7-30); Creatinine* 2.0 mg/dL (0.5-1.5); Est. Creatinine Clearance* 20.34; Estimated Glomerular Filt Rate 25 ml/min
[2024-12-05 19:33] LABS: Anion Gap 6 mEq/L (7-15); Calcium* 9.4 mg/dL (8.4-10.6); Carbon Dioxide* 22 mmol/L (20-32); Glucose* 207 mg/dL (60-115)
[2024-12-05] MEDS: SODIUM CHLORIDE 0.9 % (FLUSH) 10 ML SYRINGE 5 ML IVF ×2 (19:44→20:48)
[2024-12-05] MEDS: HYDROCORTISONE SOD SUCCINATE 50 MG/ML inj 100 MG IVP (19:44)
[2024-12-05] MEDS: TRIAMCINOLONE ACETONIDE CREAM 0.1 % 1 APPLIC TOPICAL (19:55)
[2024-12-05] MEDS: CLOTRIMAZOLE 1 % CREAM 1 APPLIC TOPICAL (19:55)
[2024-12-05] MEDS: DEXTROSE 50 % SYRINGE IVP (20:30)
[2024-12-05] MEDS: INSULIN REGULAR, HUMAN 100 UNIT/ML VIAL 10 UNIT IVP (20:30)
[2024-12-05] MEDS: ALBUTEROL SULFATE 2.5 MG/3 ML VIAL.NEB NEB (20:32)
[2024-12-05] MEDS: MELATONIN 3 MG TABLET 6 MG PO (21:17)
[2024-12-05] MEDS: AMITRIPTYLINE 25 MG TABLET PO (21:17)
[2024-12-05] MEDS: ACETAMINOPHEN 325 MG TABLET 975 MG PO (21:25)
[2024-12-05 23:49] LABS: Chloride* 107 mmol/L (96-114)
[2024-12-05 23:50] LABS: Potassium* 5.6 mmol/L (3.6-5.1); Sodium* 135 mmol/L (135-149)
[2024-12-05 23:52] LABS: Blood Urea Nitrogen* 97 mg/dL (7-30); Creatinine* 1.8 mg/dL (0.5-1.5); Est. Creatinine Clearance* 22.60; Estimated Glomerular Filt Rate 29 ml/min
[2024-12-05 23:53] LABS: Anion Gap 10 mEq/L (7-15); Calcium* 9.3 mg/dL (8.4-10.6); Carbon Dioxide* 18 mmol/L (20-32); Glucose* 171 mg/dL (60-115)
[2024-12-06] VITALS (7 sets, daily range): BP systolic 119–134; BP diastolic 46–64; PULSE 70–98; RESP 16–22; TEMP 35.9–36.7; O2SAT 96–98
[2024-12-06] MEDS: HYDROCORTISONE SOD SUCCINATE 50 MG/ML inj IVP ×4 (01:21→20:28)
[2024-12-06] MEDS: ACETAMINOPHEN 325 MG TABLET 975 MG PO (03:30)
[2024-12-06 05:40] LABS: HCO3 VBG 21 mmol/L (21-28); PCO2 VBG 41 mmHG (40-50); PO2 VBG 31.5 mmHG (25-47); pH VBG 7.313 (7.32-7.43)
[2024-12-06 05:41] LABS: Hematocrit 36.4 % (33.0-51.0); Hemoglobin* 11.7 gm/dL (12.0-16.0); Immature Granulocytes Abs Auto 0.03 K/uL (0.00-0.30); Immature Granulocytes Pct Auto 0.3 %; Lymphocytes Absolute Auto 0.70 K/uL (0.90-2.90); Mean Corpuscular HGB Conc 32 gm/dL (32-36); Mean Corpuscular Hemoglobin 33 pg (26-34); Mean Corpuscular Volume 103 fL (80-100); RDW Coefficient of Variation % 13.1 % (11.5-15.5); Red Blood Count 3.55 m/uL (4.00-5.20); White Blood Count* 10.95 K/uL (4.50-11.00)
[2024-12-06 05:42] LABS: Slide Review Reflex No
[2024-12-06 06:02] LABS: Albumin* 3.8 g/dL (3.3-5.0); Chloride* 106 mmol/L (96-114); Sodium* 136 mmol/L (135-149)
[2024-12-06 06:04] LABS: Blood Urea Nitrogen* 92 mg/dL (7-30); Creatinine* 1.6 mg/dL (0.5-1.5); Est. Creatinine Clearance* 25.43; Estimated Glomerular Filt Rate 33 ml/min; Iron* 56 ug/dL (37-170)
[2024-12-06 06:05] LABS: Alkaline Phosphatase* 68 U/L (40-150); Bilirubin Direct* 0.3 mg/dL (0.0-0.5); Bilirubin Total* 0.4 mg/dL (0.1-1.5); Carbon Dioxide* 20 mmol/L (20-32); Creatine Kinase* 25 U/L (41-117); Total Protein* 7.3 g/dL (6.0-8.3)
[2024-12-06 06:06] LABS: Alanine Aminotransferase* 12 U/L (4-35); Anion Gap 10 mEq/L (7-15); Aspartate Amino Transferase* 23 U/L (12-35); Calcium* 9.9 mg/dL (8.4-10.6); Glucose* 205 mg/dL (60-115); Potassium* 6.1 mmol/L (3.6-5.1)
[2024-12-06 06:14] LABS: Percent Iron Saturation 20 % (20-50); Total Iron Binding Capacity 274 ug/dL (265-497)
[2024-12-06 06:29] LABS: NT Pro B Type NatriureticPept* 1680 pg/mL (See Note)
--- NOTE | 2024-12-06 06:33 | W.PM.CROSSCO ---
Subjective Subjective Principal diagnosis: Hyperkalemia Assessment and Plan Assessment and plan (1) Hyperkalemia: Problem comment: -increasing despite fluids and DEVONTE improving -will give insulin w/dextrose chaser and albuterol nebulizer Status: Acute Plan RN paged for critical lab of 6.1. Potassium was 5.7 before this. She is currently on IV fluids for DEVONTE. HAs been receiving suppository, enemas, and extensive bowel regiment for constipation. Plan - cont with cardiac monitoring - calcium [id number] IV - IV dextrose and Regular insulin - albuterol inhaler - Loekelma 10 mg - repeat potassium in 2 hours. - Discussed with RN. Pt was not seen or examine by telehospitalist.
[2024-12-06] MEDS: LEVOTHYROXINE 112 MCG TABLET PO (06:55)
[2024-12-06] MEDS: LEVOTHYROXINE 25 MCG TABLET PO (06:55)
[2024-12-06] MEDS: SODIUM CHLORIDE 0.9 % (FLUSH) 10 ML SYRINGE 5 ML IVF ×2 (06:59→10:25)
--- NOTE | 2024-12-06 07:25 | PC.NURSE ---
Pt is alert and oriented x3. Afebrile. Room air. Pt reports 6/10 pain in back and right leg, pain managed with PRN medications and AquaK pad. Pt?s right leg is a little more swollen than left leg, pedal pulses present and cap refill <3. This RN updated MD Johnson, no new orders given continue plan of care. Pt doesn?t recall when she last had a BM and reports having the urge to go but could not get it out. Pt given Miralax, suppository, and enema. Pt was unable to have solid BM, but pt had multiple liquid BMs throughout night. Pt had critical potassium 6.1, updated, MD ordered dextrose 50%, insulin, albuterol neb, and calcium gluconate, see MAR.
[2024-12-06] MEDS: DEXTROSE 50 % SYRINGE IVP (07:29)
[2024-12-06] MEDS: INSULIN REGULAR, HUMAN 100 UNIT/ML VIAL 10 UNIT IVP (07:37)
[2024-12-06] MEDS: CALCIUM GLUC 1,000MG/50 ML 1,000 MG/50 ML BAG 100 MG IVPB (07:42)
[2024-12-06] MEDS: SODIUM ZIRCONIUM CYCLOSILICATE 10 GM PO (08:01)
[2024-12-06] MEDS: ALBUTEROL SULFATE 1.25 MG/3 ML VIAL.NEB NEB (08:07)
--- NOTE | 2024-12-06 08:13 | P.IMPN_ITS ---
Assessment and Plan Assessment and plan (1) Hyperkalemia: Problem comment: - peaked at 6.1 on 12/06 - s/p calcium gluconate, insulin/D50, albuterol, given Lokelma 12/06 - improved to 5.3 after the above interventions - continue to follow Status: Acute (2) Acute hypotension: Problem comment: - possibly 2/2 adrenal insufficiency, does not appear to have any infectious process - low upon arrival to the ED 12/05, improved to 110-130s systolic on 12/06 - HOLDING home Lisinopril/HCTZ and Furosemide - not orthostatic Status: Acute (3) Acute kidney injury: Problem comment: - 12/05/24: Creatinine of 2.5, BUN of 117 (noted to be normal at 1.0/35 11/15/24) - ddx: prerenal (hypotension/TR), postrenal (severe constipation with + urinary retention, Loredo placed 12/06) intrarenal (iatrogenic - on Metformin/Lasix/TIFFANY) - receiving IV fluids, repeat TTE ordered, loredo in place to monitor stricts Is/Os Status: Acute (4) Acute adrenocortical insufficiency: Problem comment: - presumed on admission given hypotension, acidosis, hyponatremia/hyperkalemia, mild anemia, anorexia/weight loss, fatigue/weakness, unsteady gait, abdominal pain - 12/05: treating presumptively with IV hydrocortisone; 100mg x1 followed by 50mg q6 hours - confirm with cosyntropin stim test at a later point - ordered baseline cortisol, ACTH and Renin (pending 12/06) Status: Acute (5) Obstipation: Problem comment: - rectal stool ball noted on CT - admitted 12/05/24 - suppository, Miralax, enema, disimpaction, fluids Status: Acute (6) History of CVA (cerebrovascular accident): Problem comment: - September 2024 - on aspirin, Plavix and ezetimibe - two transient 1-2 minute episodes of garbled speech, 1 on 09/30/2024 and 1 on 10/02/2024, with complete resolution of symptoms - repeat MRI of brain 11/14/24: Maturation of the now late subacute infarct in L basal ganglia and frontal centrum semiovale. Stable chronic cerebellar lacunar type infarcts Status: Acute (7) Dysfunctional gallbladder: Problem comment: - known stones; EF 10% on HIDA scan, + symptoms - LFTS are normal, but does have elevated INR - continue to monitor, likely this can be addressed in coming weeks Status: Acute (8) Bloated abdomen: Problem comment: - noted intermittently for weeks, this was the reason for her presentation to the ED on 11/14/2024 - likely 2/2 constipation, gallbladder dysfunction also possibly contributing - nursing staff working on aggressive bowel regimen Status: Resolved (9) Acquired hypothyroidism: Problem comment: - TSH suppressed with normal free T4 on 12/06, T3 pending - 12/06: decrease Synthroid dosing (from 137mcg -> 112mcg; would possibly benefit from higher TSH given age), follow this as an outpatient Status: Acute (10) Diabetes mellitus type 2, controlled: Problem comment: - Hemoglobin A1c 6.3 - 6.6 - HOLDING metformin, treating with SSI, follow accuchecks frequently given the hydrocortisone and hyperkalemia treatment (insulin and D50) Status: Acute (11) Spinal stenosis of lumbar region with neurogenic claudication: Problem comment: - Chronic, followed by PCP and Neurosurgery, R>L - on nightly amitriptyline 25mg Status: Acute (12) Intertrigo: Problem comment: -topical antifungals/steroids/barrier cream Status: Acute (13) Thickened endometrium: Problem comment: - this may be the cause of the bleeding (rectal vs vaginal) she has seen - outpatient body engineer referral and close follow-up appropriate Status: Acute (14) Macrocytic anemia: Problem comment: - B12 normal, folate pending Status: Acute Plan - per above - ppx: Lovenox contraindicated in DEVONTE; treat with SCDs, home ASA/Plavix - continues to require inpatient management for her DEVONTE, presumed adrenal insufficiency, hyperkalemia Subjective Date Seen: 12/06/24 Interval history: Angela was admitted to the hospital on 12/05/24 for presumed adrenocortical insufficiency; presented to the ER with persistent weakness/fatigue, abdominal pain, severe constipation. In ER, also noted to have hyperkalemia, hyponatremia, DEVONTE (has bumped her creatinine from 1.0-->1.8 on 11/29/24, creatinine up to 2.5 on 12/05), metabolic acidosis, large stool ball on imaging. Recent medical history: - CVA (10/02/24, L guerin radiata, L basal ganglia, L cerebellar hemisphere) - abdominal bloating (reassuring RUQ ultrasound, HIDA scan with low EF of gallbladder at 10%) - LE edema - TTE performed at time of CVA: EF 72%, normal LV size/wall thickness, mildly enlarged RV size/normal fx, moderate to severe TR, mild to moderate MR, elevated pulmonary pressures (45mmHg) - Since admission, Angela has been treated with IV Hydrocortisone and IVFs, nursing staff has attempted enemas + manual disimpaction with minimal relief. Today, Potassium noted to be 6.1; telemetry remains reassuring. Received Calcium Gluconate, Insulin/D50, Lokelma, Albuterol. Also noted to have urinary retention this morning; Loredo has been placed with >1L returned. This morning, Angela feels tired and has persistent LE discomfort (chronic/baseline from her known spinal stenosis). She has no chest pain or dyspnea. She is working on passing her large stool ball. Exam Narrative: Exam Narrative: GEN: Alert and oriented, appears tired but nontoxic HEENT: EOMIs bilaterally, no scleral icterus CV: RRR, No concerning murmurs R: No wheezing, breathing comfortably, fine bibasilar rales Ext: 2+ pitting edema BLE up to mid-[place] Skin: Flat, lacy areas of hyperpigmentation of BLE, R>L. No other notable skin lesions on exposed skin (intertrigo not formally examined) Neuro: No focal deficits, no resting tremor Psych: Appropriate Const: Vital Signs, click to edit/add: Vital Signs - 24 hr 12/05/24 14:11 12/05/24 14:34 12/05/24 14:35 Temperature 97 F L Pulse Rate 81 Pulse Rate [Left P ulse Oximeter] Pulse Rate [Pulse Oximeter] 90 Pulse Rate [orthos tatic lying Left] Pulse Rate [orthos tatic sitting Left ] Pulse Rate [orthos tatic standing Lef t] Respiratory Rate 20 Blood Pressure 86/34 L Blood Pressure [Ri ght Arm] Blood Pressure [Ri ght Upper Arm] 72/45 L Blood Pressure [or thostatic lying Ri ght Arm] Blood Pressure [or thostatic sitting Right Arm] Blood Pressure [or thostatic standing ] Pulse Oximetry 95 95 94 Oxygen Delivery Me thod Room Air 12/05/24 14:36 12/05/24 14:47 12/05/24 15:06 Temperature Pulse Rate 83 80 Pulse Rate [Left P ulse Oximeter] Pulse Rate [Pulse Oximeter] Pulse Rate [orthos tatic lying Left] Pulse Rate [orthos tatic sitting Left ] Pulse Rate [orthos tatic standing Lef t] Respiratory Rate 12 Blood Pressure 92/32 L 94/49 L Blood Pressure [Ri ght Arm] Blood Pressure [Ri ght Upper Arm] Blood Pressure [or thostatic lying Ri ght Arm] Blood Pressure [or thostatic sitting Right Arm] Blood Pressure [or thostatic standing ] Pulse Oximetry 94 97 Oxygen Delivery Me thod 12/05/24 15:16 12/05/24 15:31 12/05/24 16:07 Temperature Pulse Rate 79 88 77 Pulse Rate [Left P ulse Oximeter] Pulse Rate [Pulse Oximeter] Pulse Rate [orthos tatic lying Left] Pulse Rate [orthos tatic sitting Left ] Pulse Rate [orthos tatic standing Lef t] Respiratory Rate 14 14 12 Blood Pressure 97/34 L 105/50 L 93/27 L Blood Pressure [Ri ght Arm] Blood Pressure [Ri ght Upper Arm] Blood Pressure [or thostatic lying Ri ght Arm] Blood Pressure [or thostatic sitting Right Arm] Blood Pressure [or thostatic standing ] Pulse Oximetry 95 98 97 Oxygen Delivery Wa thod 12/05/24 16:08 12/05/24 16:20 12/05/24 16:32 Temperature Pulse Rate 80 77 79 Pulse Rate [Left P ulse Oximeter] Pulse Rate [Pulse Oximeter] Pulse Rate [orthos tatic lying Left] Pulse Rate [orthos tatic sitting Left ] Pulse Rate [orthos tatic standing Lef t] Respiratory Rate 17 12 Blood Pressure 88/37 L 102/44 L Blood Pressure [Ri ght Arm] Blood Pressure [Ri ght Upper Arm] Blood Pressure [or thostatic lying Ri ght Arm] Blood Pressure [or thostatic sitting Right Arm] Blood Pressure [or thostatic standing ] Pulse Oximetry 98 98 98 Oxygen Delivery Me thod 12/05/24 16:47 12/05/24 17:02 12/05/24 17:17 Temperature 96.5 F L Pulse Rate 76 77 72 Pulse Rate [Left P ulse Oximeter] Pulse Rate [Pulse Oximeter] Pulse Rate [orthos tatic lying Left] Pulse Rate [orthos tatic sitting Left ] Pulse Rate [orthos tatic standing Lef t] Respiratory Rate 14 15 16 Blood Pressure 113/48 L 110/87 137/84 Blood Pressure [Ri ght Arm] Blood Pressure [Ri ght Upper Arm] Blood Pressure [or thostatic lying Ri ght Arm] Blood Pressure [or thostatic sitting Right Arm] Blood Pressure [or thostatic standing ] Pulse Oximetry 99 95 96 Oxygen Delivery Me thod 12/05/24 17:42 12/05/24 17:42 12/05/24 17:48 Temperature 96.9 F L 96.9 F L Pulse Rate 87 Pulse Rate [Left P ulse Oximeter] 82 82 Pulse Rate [Pulse Oximeter] Pulse Rate [orthos tatic lying Left] Pulse Rate [orthos tatic sitting Left ] Pulse Rate [orthos tatic standing Lef t] Respiratory Rate 20 20 Blood Pressure Blood Pressure [Ri ght Arm] 115/52 L 115/52 L Blood Pressure [Ri ght Upper Arm] Blood Pressure [or thostatic lying Ri ght Arm] Blood Pressure [or thostatic sitting Right Arm] Blood Pressure [or thostatic standing ] Pulse Oximetry 97 97 Oxygen Delivery Me thod Room Air Room Air 12/05/24 17:48 12/05/24 17:50 12/05/24 19:16 Temperature 97.4 F L Pulse Rate Pulse Rate [Left P ulse Oximeter] 86 Pulse Rate [Pulse Oximeter] Pulse Rate [orthos tatic lying Left] 82 Pulse Rate [orthos tatic sitting Left ] 79 Pulse Rate [orthos tatic standing Lef t] 90 Respiratory Rate 20 20 Blood Pressure Blood Pressure [Ri ght Arm] 117/60 Blood Pressure [Ri ght Upper Arm] Blood Pressure [or thostatic lying Ri ght Arm] 115/52 L Blood Pressure [or thostatic sitting Right Arm] 115/46 L Blood Pressure [or thostatic standing ] 113/48 L Pulse Oximetry 97 99 Oxygen Delivery Me thod Room Air Room Air 12/05/24 23:00 12/05/24 23:00 12/05/24 23:00 Temperature 97.7 F Pulse Rate 80 Pulse Rate [Left P ulse Oximeter] 87 87 Pulse Rate [Pulse Oximeter] Pulse Rate [orthos tatic lying Left] Pulse Rate [orthos tatic sitting Left ] Pulse Rate [orthos tatic standing Lef t] Respiratory Rate 18 Blood Pressure Blood Pressure [Ri ght Arm] 133/49 L Blood Pressure [Ri ght Upper Arm] Blood Pressure [or thostatic lying Ri ght Arm] Blood Pressure [or thostatic sitting Right Arm] Blood Pressure [or thostatic standing ] Pulse Oximetry 98 Oxygen Delivery Me thod Room Air 12/06/24 02:24 12/06/24 07:00 Temperature 97.7 F Pulse Rate 86 Pulse Rate [Left P ulse Oximeter] 82 Pulse Rate [Pulse Oximeter] Pulse Rate [orthos tatic lying Left] Pulse Rate [orthos tatic sitting Left ] Pulse Rate [orthos tatic standing Lef t] Respiratory Rate 20 Blood Pressure Blood Pressure [Ri ght Arm] 134/46 L Blood Pressure [Ri ght Upper Arm] Blood Pressure [or thostatic lying Ri ght Arm] Blood Pressure [or thostatic sitting Right Arm] Blood Pressure [or thostatic standing ] Pulse Oximetry 96 Oxygen Delivery Me thod Room Air Labs Labs: Laboratory Results - last 24 hr 12/05/24 12/05/24 12/05/24 14:30 14:30 14:33 WBC 9.12 RBC 3.37 L Hgb 11.2 L Hct 34.7 MCV 103 H MCH 33 MCHC 32 RDW Coeff of Arun 13.1 Plt Count 335 Neut % (Auto) 77.2 H Lymph % (Auto) 12.3 L [place] % (Auto) 8.2 Eos % (Auto) 1.0 Baso % (Auto) 0.3 Neut # (Auto) 7.00 Lymph # (Auto) 1.10 [place] # (Auto) 0.70 Eos # (Auto) 0.09 Baso # (Auto) 0.03 Abs Immat Gran (auto) 0.09 Imm/Tot Granulo (auto) 1.0 INR 1.24 H APTT 30 VBG pH 7.313 L VBG pCO2 35 L VBG pO2 62.9 H VBG HCO3 18 L Sodium 134 L Potassium 5.5 H Chloride 106 Carbon Dioxide 16 L Anion Gap 12 BUN 117 H Creatinine 2.5 H Estimated Creat Clear 16.27 Estimated GFR 19 Glucose 174 H Hemoglobin A1c Lactate 1.5 Uric Acid Calcium 9.8 Phosphorus Iron TIBC % Saturation Ferritin Total Bilirubin 0.4 Direct Bilirubin 0.3 AST 22 ALT 13 Alkaline Phosphatase 68 Total Creatine Kinase Troponin I < 0.01 C-Reactive Protein 3.7 H NT-Pro-B Natriuret Pep 162 Total Protein 7.7 Albumin 3.9 Lipase Procalcitonin 0.40 TSH Cortisol Urine Color Urine Appearance Urine pH Ur Specific [place] Urine Protein Urine Glucose (UA) Urine Ketones Urine Blood Urine Nitrite Urine Bilirubin Urine Urobilinogen Ur Leukocyte Esterase Urine RBC Urine WBC Ur Squamous Epith Cells Urine Bacteria SARS-CoV-2 (PCR) Influenza Type A (PCR) Influenza Type B (PCR) Lab Acknowledgement Test Added Test Added POC Creatinine Blood Type A Positive Antibody Screen NEGATIVE 12/05/24 12/05/24 12/05/24 14:58 15:18 15:30 WBC RBC Hgb Hct MCV MCH MCHC RDW Coeff of Arun Plt Count Neut % (Auto) Lymph % (Auto) [place] % (Auto) Eos % (Auto) Baso % (Auto) Neut # (Auto) Lymph # (Auto) [place] # (Auto) Eos # (Auto) Baso # (Auto) Abs Immat Gran (auto) Imm/Tot Granulo (auto) INR APTT VBG pH VBG pCO2 VBG pO2 VBG HCO3 Sodium Potassium Chloride Carbon Dioxide Anion Gap BUN Creatinine Estimated Creat Clear Estimated GFR Glucose Hemoglobin A1c Lactate Uric Acid Calcium Phosphorus Iron TIBC % Saturation Ferritin Total Bilirubin Direct Bilirubin AST ALT Alkaline Phosphatase Total Creatine Kinase Troponin I C-Reactive Protein NT-Pro-B Natriuret Pep Total Protein Albumin Lipase Procalcitonin TSH Cortisol Urine Color Yellow Urine Appearance Clear Urine pH 5.0 Ur Specific [place] 1.010 Urine Protein Negative Urine Glucose (UA) Negative Urine Ketones Negative Urine Blood Negative Urine Nitrite Negative Urine Bilirubin Negative Urine Urobilinogen 0.2 Ur Leukocyte Esterase Negative Urine RBC 0-2 Urine WBC 0-2 Ur Squamous Epith Cells Few Urine Bacteria None SARS-CoV-2 (PCR) Negative SARS-CoV-2 Influenza Type A (PCR) Negative PCR FLU A Influenza Type B (PCR) Negative PCR FLU B Lab Acknowledgement POC Creatinine 2.8 H Blood Type Antibody Screen 12/05/24 12/05/24 12/05/24 15:48 16:34 19:08 WBC RBC Hgb 10.6 L Hct MCV MCH MCHC RDW Coeff of Arun Plt Count Neut % (Auto) Lymph % (Auto) [place] % (Auto) Eos % (Auto) Baso % (Auto) Neut # (Auto) Lymph # (Auto) [place] # (Auto) Eos # (Auto) Baso # (Auto) Abs Immat Gran (auto) Imm/Tot Granulo (auto) INR APTT VBG pH VBG pCO2 VBG pO2 VBG HCO3 Sodium 135 Potassium 5.7 H Chloride 107 Carbon Dioxide 22 Anion Gap 6 L BUN 106 H Creatinine 2.0 H Estimated Creat Clear 20.34 Estimated GFR 25 Glucose 207 H Hemoglobin A1c 6.3 H Lactate Uric Acid Calcium 9.4 Phosphorus Iron TIBC % Saturation Ferritin Total Bilirubin Direct Bilirubin AST ALT Alkaline Phosphatase Total Creatine Kinase Troponin I < 0.01 C-Reactive Protein NT-Pro-B Natriuret Pep Total Protein Albumin Lipase Procalcitonin TSH Cortisol Cancelled Urine Color Urine Appearance Urine pH Ur Specific [place] Urine Protein Urine Glucose (UA) Urine Ketones Urine Blood Urine Nitrite Urine Bilirubin Urine Urobilinogen Ur Leukocyte Esterase Urine RBC Urine WBC Ur Squamous Epith Cells Urine Bacteria SARS-CoV-2 (PCR) Influenza Type A (PCR) Influenza Type B (PCR) Lab Acknowledgement Test Added Test Added POC Creatinine Blood Type Antibody Screen 12/05/24 12/05/24 12/06/24 19:10 23:25 05:28 WBC 10.95 RBC 3.55 L Hgb 11.7 L Hct 36.4 MCV 103 H MCH 33 MCHC 32 RDW Coeff of Arun 13.1 Plt Count 344 Neut % (Auto) 90.6 H Lymph % (Auto) 6.4 L [place] % (Auto) 2.4 Eos % (Auto) 0.1 Baso % (Auto) 0.2 Neut # (Auto) 9.90 H Lymph # (Auto) 0.70 L [place] # (Auto) 0.30 Eos # (Auto) 0.01 Baso # (Auto) 0.02 Abs Immat Gran (auto) 0.03 Imm/Tot Granulo (auto) 0.3 INR APTT VBG pH 7.313 L VBG pCO2 41 VBG pO2 31.5 VBG HCO3 21 Sodium 135 136 Potassium 5.6 H 6.1 H* Chloride 107 106 Carbon Dioxide 18 L 20 Anion Gap 10 10 BUN 97 H 92 H Creatinine 1.8 H 1.6 H Estimated Creat Clear 22.60 25.43 Estimated GFR 29 33 Glucose 171 H 205 H Hemoglobin A1c Lactate Uric Acid 10.4 H Calcium 9.3 9.9 Phosphorus 4.5 Iron 56 TIBC 274 % Saturation 20 Ferritin 183.0 Total Bilirubin 0.4 Direct Bilirubin 0.3 AST 23 ALT 12 Alkaline Phosphatase 68 Total Creatine Kinase 25 L Troponin I < 0.01 C-Reactive Protein 3.7 H NT-Pro-B Natriuret Pep 1680 H Total Protein 7.3 Albumin 3.8 Lipase 93 Procalcitonin TSH 0.048 L Cortisol Urine Color Urine Appearance Urine pH Ur Specific [place] Urine Protein Urine Glucose (UA) Urine Ketones Urine Blood Urine Nitrite Urine Bilirubin Urine Urobilinogen Ur Leukocyte Esterase Urine RBC Urine WBC Ur Squamous Epith Cells Urine Bacteria SARS-CoV-2 (PCR) Influenza Type A (PCR) Influenza Type B (PCR) Lab Acknowledgement Test Added POC Creatinine Blood Type Antibody Screen
--- NOTE | 2024-12-06 08:37 | REH.PT ---
Orders for PT eval and treat received. Hold PT for 24 hours per MD. Will reassess tomorrow.
--- NOTE | 2024-12-06 08:37 | REH.OT ---
OT: Order received, chart reviewed. Per MD, therapies to hold due to medical issues. Will check status tomorrow and eval when appropriate.
[2024-12-06] MEDS: ASPIRIN 81 MG TABLET EC PO (08:38)
[2024-12-06] MEDS: EZETIMIBE 10 MG TABLET PO (08:39)
[2024-12-06] MEDS: CLOPIDOGREL 75 MG TABLET PO (08:40)
[2024-12-06 08:45] LABS: Free T4 Free Thyroxine* 1.35 ng/dL (0.70-1.85)
[2024-12-06 10:15] LABS: Chloride* 109 mmol/L (96-114); Potassium* 5.3 mmol/L (3.6-5.1); Sodium* 136 mmol/L (135-149)
[2024-12-06 10:18] LABS: Anion Gap 7 mEq/L (7-15); Blood Urea Nitrogen* 83 mg/dL (7-30); Calcium* 9.5 mg/dL (8.4-10.6); Carbon Dioxide* 20 mmol/L (20-32); Creatinine* 1.4 mg/dL (0.5-1.5); Est. Creatinine Clearance* 29.06; Estimated Glomerular Filt Rate 39 ml/min; Glucose* 158 mg/dL (60-115)
[2024-12-06] MEDS: PERFLUTREN LIPID MICROSPHERES 2 ML VIAL IVP (13:19)
[2024-12-06] MEDS: DOCUSATE SODIUM/BENZOCAINE 5 ML ENEMA PR (14:53)
[2024-12-06 15:30] LABS: HCO3 VBG 21 mmol/L (21-28); PCO2 VBG 37 mmHG (40-50); PO2 VBG 37.7 mmHG (25-47); pH VBG 7.369 (7.32-7.43)
[2024-12-06] MEDS: TRIAMCINOLONE ACETONIDE CREAM 0.1 % 1 APPLIC TOPICAL ×2 (15:34→21:31)
[2024-12-06] MEDS: CLOTRIMAZOLE 1 % CREAM 1 APPLIC TOPICAL ×2 (15:34→21:31)
[2024-12-06 15:45] LABS: Chloride* 109 mmol/L (96-114)
[2024-12-06 15:46] LABS: Potassium* 4.9 mmol/L (3.6-5.1); Sodium* 134 mmol/L (135-149)
[2024-12-06 15:48] LABS: Blood Urea Nitrogen* 73 mg/dL (7-30); Creatinine* 1.2 mg/dL (0.5-1.5); Est. Creatinine Clearance* 33.90; Estimated Glomerular Filt Rate 47 ml/min
[2024-12-06 15:49] LABS: Anion Gap 4 mEq/L (7-15); Calcium* 9.2 mg/dL (8.4-10.6); Carbon Dioxide* 21 mmol/L (20-32); Glucose* 225 mg/dL (60-115)
--- NOTE | 2024-12-06 16:18 | W.PM.CROSSCO ---
Subjective Subjective Principal diagnosis: Hyperkalemia Interval history: Labs look much improved. discussed with general surgery regarding her rectal stool ball - Neri recommended and she will round on her tomorrow.
[2024-12-06] MEDS: PEG-3350 SODIUM CL/BICARB-KCL 4,000 ML SOLN 4000 ML PO (17:41)
[2024-12-06] MEDS: OMEPRAZOLE 20 MG CAPSULE DR PO (18:56)
--- NOTE | 2024-12-06 19:13 | PC.NURSE ---
End of shift Note (CCU2)? Patient has been very pleasant and cooperative throughout shift. She was admitted for severe constipation, rectal bleeding and bilateral pitting edema 3+. CTscan showed a stool burden of 6.5 cm. Patient has been having liquid stool BM, but large stool burden is still in place. Patient is currently preparing for stool removal in OR tomorrow?s morning ([facility]y). Attempt to digitally help with BM was mildly successful. Patient expresses anxiety about her current situation and tomorrow?s procedure.? ?
[2024-12-06] MEDS: AMITRIPTYLINE 25 MG TABLET PO (21:30)
[2024-12-06 22:49] LABS: Free T3 2.4 pg/mL (2.5-4.3)
[2024-12-06 23:06] LABS: Cortisol, Serum 7.5 ug/dL
[2024-12-07] VITALS (12 sets, daily range): BP systolic 120–147; BP diastolic 52–72; PULSE 57–86; RESP 16–18; TEMP 35.7–36.8; O2SAT 94–98; BMI 37.3
[2024-12-07] MEDS: HYDROCORTISONE SOD SUCCINATE 50 MG/ML inj IVP ×4 (02:08→18:27)
[2024-12-07 05:44] LABS: HCO3 VBG 23 mmol/L (21-28); PCO2 VBG 37 mmHG (40-50); PO2 VBG 45.1 mmHG (25-47); pH VBG 7.400 (7.32-7.43)
[2024-12-07 05:47] LABS: Hematocrit 31.2 % (33.0-51.0); Hemoglobin* 9.9 gm/dL (12.0-16.0); Immature Granulocytes Abs Auto 0.02 K/uL (0.00-0.30); Immature Granulocytes Pct Auto 0.3 %; Mean Corpuscular HGB Conc 32 gm/dL (32-36); Mean Corpuscular Hemoglobin 33 pg (26-34); Mean Corpuscular Volume 103 fL (80-100); RDW Coefficient of Variation % 13.4 % (11.5-15.5); Red Blood Count 3.03 m/uL (4.00-5.20); White Blood Count* 7.15 K/uL (4.50-11.00)
[2024-12-07 05:50] LABS: Lymphocytes Absolute Auto 0.80 K/uL (0.90-2.90); Slide Review Reflex No
[2024-12-07 06:30] LABS: Chloride* 109 mmol/L (96-114)
[2024-12-07 06:31] LABS: Albumin* 3.1 g/dL (3.3-5.0); Potassium* 4.8 mmol/L (3.6-5.1); Sodium* 136 mmol/L (135-149)
[2024-12-07 06:33] LABS: Alanine Aminotransferase* 10 U/L (4-35); Anion Gap 4 mEq/L (7-15); Aspartate Amino Transferase* 21 U/L (12-35); Blood Urea Nitrogen* 56 mg/dL (7-30); Carbon Dioxide* 23 mmol/L (20-32); Creatinine* 1.0 mg/dL (0.5-1.5); Est. Creatinine Clearance* 40.68; Estimated Glomerular Filt Rate 58 ml/min; INR 1.21 (0.91-1.10); Prothrombin Time 16.2 Seconds
[2024-12-07 06:34] LABS: Alkaline Phosphatase* 49 U/L (40-150); Bilirubin Total* 0.2 mg/dL (0.1-1.5); Calcium* 9.1 mg/dL (8.4-10.6); Gamma Glutamyl Transpeptidase* 50 U/L (8-55); Glucose* 160 mg/dL (60-115); Total Protein* 6.1 g/dL (6.0-8.3)
[2024-12-07] MEDS: LEVOTHYROXINE 112 MCG TABLET PO (07:27)
[2024-12-07] MEDS: CLOPIDOGREL 75 MG TABLET PO (08:53)
[2024-12-07] MEDS: EZETIMIBE 10 MG TABLET PO (08:54)
[2024-12-07] MEDS: SODIUM CHLORIDE 0.9 % (FLUSH) 10 ML SYRINGE 5 ML IVF ×2 (08:54→20:32)
[2024-12-07] MEDS: ASPIRIN 81 MG TABLET EC PO (08:54)
[2024-12-07] MEDS: CLOTRIMAZOLE 1 % CREAM 1 APPLIC TOPICAL ×3 (09:05→20:32)
[2024-12-07] MEDS: TRIAMCINOLONE ACETONIDE CREAM 0.1 % 1 APPLIC TOPICAL (09:05)
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
--- NOTE | 2024-12-07 10:26 | PM.GSCN ---
History of Present Illness Consult details Date Seen: 12/07/24 Consult date: 12/07/24 Narrative: Angela is a 79 year old female who presented to the hospital with weakness and swelling in her legs. She was found to have suspected acute adrenal cortical insufficiency. 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 When she presented, she complained of abdominal pain. CT scan was obtained which did not show any acute process other than a large rectal stool burden. She states that she does have intermittent constipation. After admission she was given enemas as well as MiraLax and suppositories. She did have some small bowel movements. On digital exam by nursing, a stool ball was palpable but unable to be removed given that the patient has significant perianal pain and discomfort from skin breakdown. She was given GoLYTELY yesterday. She states that she has had multiple bowel movements both Tuesday and . She states that yesterday she passed something that was golf ball-sized. [facility] Medical History (Updated 12/06/24 @ 11:44 by Jeanna Edward MD) Left hip postoperative wound infection (01/15/22) ?T81.49XA - Infection following a procedure, other surgical site, initial encounter (ICD-10) Cholelithiasis ?K80.20 - Calculus of gallbladder without cholecystitis without obstruction (ICD-10) Cerebrovascular accident ?I63.9 - Cerebral infarction, unspecified (ICD-10) Hyperlipidemia ?E78.5 - Hyperlipidemia, unspecified (ICD-10) Major 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 (12/22/15) ?F32.5 - Major depressive disorder, single episode, in full remission (ICD-10) Spinal stenosis of lumbar region with neurogenic claudication (03/20/15) ?M48.062 - Spinal stenosis, lumbar region with neurogenic claudication (ICD-10) Lumbar radiculopathy ?M54.16 - Radiculopathy, lumbar region (ICD-10) Lumbosacral radiculitis ?M54.17 - Radiculopathy, lumbosacral region (ICD-10) Lumbar spondylosis ?M47.816 - Spondylosis without myelopathy or radiculopathy, lumbar region (ICD-10) Obesity (BMI 30-39.9) ?E66.9 - Obesity, unspecified (ICD-10) Chronic kidney disease, stage 3a ?N18.31 - Chronic kidney disease, stage 3a (ICD-10) Insomnia ?G47.00 - Insomnia, unspecified (ICD-10) Acquired hypothyroidism ?E03.9 - Hypothyroidism, unspecified (ICD-10) 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 - Stenosis of larynx (ICD-10) Diabetes mellitus type 2, controlled ?E11.9 - Type 2 diabetes mellitus without complications (ICD-10) Vitamin D deficiency ?E55.9 - Vitamin D deficiency, unspecified (ICD-10) Essential hypertension ?I10 - Essential (primary) hypertension (ICD-10) Surgical History (Updated 12/05/24 @ 20:41 by Tamika Johnson MD) H/O bilateral hip replacements ?Z96.643 - Presence of artificial hip joint, bilateral (ICD-10) History of bilateral knee replacement ?Z96.653 - Presence of artificial knee joint, bilateral (ICD-10) S/P total hip arthroplasty (09/21/21) ?Z96.649 - Presence of unspecified artificial hip joint (ICD-10) Social History (Updated 12/05/24 @ 18:06 by Tamika Johnson MD) Narrative: 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 Lives with her . She has been for 53 years. They have 2 sons and 2 granddaughters. Is active in her bertin. What is your current living situation?: I presently have a place to live Problems where you live: no known problems Problems where you live details: NA In the past 12 months, utilities in danger of being shut off: no In past 12 months, lack of transportation kept you from medical appts, meetings, work, or getting things needed for daily living: no In the past 12 mos, have been you worried that your food would run out before you had money to buy more?: never true In the past 12 mos, the food you bought just didn't last and you didn't have money to buy more?: never true Highest level of school completed/degree received: Master's degree Smoking Status: Never smoker Do you use any of these nicotine containing products: None Second hand tobacco smoke exposure: No How often do you have a drink containing alcohol: never How often do you have six or more drinks on one occasion: Never AUDIT-C Alcohol total score: 0 Non-prescribed substance use: denies use Caffeine: Yes (Diet Pepsi, Daily) How often does anyone, including family, friends and others, physically hurt you: never How often does anyone, including family, friends and others, insult or talk down to you: never How often does anyone, including family, friends and others, threaten you with harm: never How often does anyone, including family, friends and others, scream or curse at you: never service: No Meds Home Medications and Allergies Home Medications ?Medication ?Instructions ?Recorded ?Confirmed ?Type amitriptyline 25 mg tablet 25 mg PO QPM 01/31/24 12/05/24 History ergocalciferol (vitamin D2) 1,250 1,250 mcg PO WE 01/31/24 12/05/24 History mcg (50,000 unit) capsule levothyroxine 137 mcg tablet 137 mcg PO DAILY 01/31/24 12/05/24 History metformin 1,000 mg tablet 1,000 mg PO BID 01/31/24 12/05/24 History omeprazole 20 mg capsule,delayed 20 mg PO QPM 01/31/24 12/05/24 History release aspirin 81 mg tablet 81 mg PO DAILY #90 tabs 10/03/24 12/05/24 Rx clopidogrel 75 mg tablet 75 mg PO DAILY #30 tabs 10/04/24 12/05/24 Rx ezetimibe 10 mg tablet (Zetia) 10 mg PO DAILY #90 tabs 10/23/24 12/05/24 Rx lisinopril 20 1 tab PO DAILY #90 tabs 11/07/24 12/05/24 Rx mg-hydrochlorothiazide 25 mg tablet docusate sodium 50 mg capsule 50 mg PO BID #60 caps 11/15/24 12/05/24 Rx furosemide 20 mg tablet (Lasix) 40 mg PO QAM 11/29/24 12/05/24 History nystatin 100,000 unit/gram topical 1 applic topical BID #30 grams 12/03/24 12/05/24 Rx cream Allergies Allergy/AdvReac Type Severity Reaction Status Date / Time atorvastatin Allergy Unknown Verified 11/29/24 14:51 niacin Allergy Unknown Verified 11/29/24 14:51 piroxicam Allergy Unknown Verified 11/29/24 14:51 pravastatin Allergy Unknown Verified 11/29/24 14:51 rosuvastatin Allergy Unknown Verified 11/29/24 14:51 simvastatin Allergy Unknown Verified 11/29/24 14:51 doxycycline Allergy Verified 11/29/24 14:51 erythromycin base Allergy Verified 11/29/24 14:51 morphine Allergy Verified 11/29/24 14:51 Exam Narrative: Exam Narrative: General: No acute distress CV: Regular rate Abdomen: Protuberant. Rectal exam: On external exam the patient has painful erythematous skin in her gluteal full as well as in the perianal region. On digital rectal exam there is no stool palpable. This does not change with abdominal pressure or with the patient bearing down. The stool in the perianal region is soft and smeary. Clotrimazole cream and zinc oxide barrier cream was applied to the reddened areas in the perianal skin after cleansing. Hopeless Const: Vital Signs, click to edit/add: Vital Signs - 24 hr 12/06/24 11:00 12/06/24 15:00 12/06/24 15:00 Temperature 96.6 F L 97.7 F Pulse Rate Pulse Rate [Left P ulse Oximeter] 98 87 87 Respiratory Rate 16 20 Blood Pressure [Ri ght Arm] 122/51 L 129/46 L Pulse Oximetry 98 96 Oxygen Delivery Me thod Room Air Room Air 12/06/24 15:00 12/06/24 19:00 12/06/24 22:37 Temperature 98.1 F Pulse Rate 73 Pulse Rate [Left P ulse Oximeter] 70 74 Respiratory Rate 18 18 Blood Pressure [Ri ght Arm] 121/50 L Pulse Oximetry 97 Oxygen Delivery Me thod Room Air 12/06/24 22:37 12/06/24 23:00 12/07/24 03:00 Temperature 98.1 F 98 F Pulse Rate 74 Pulse Rate [Left P ulse Oximeter] 74 86 Respiratory Rate 18 18 Blood Pressure [Ri ght Arm] 133/64 137/69 Pulse Oximetry 97 94 Oxygen Delivery Me thod Room Air Room Air 12/07/24 07:00 12/07/24 07:16 12/07/24 07:25 Temperature 97.2 F L Pulse Rate 67 Pulse Rate [Left P ulse Oximeter] 73 73 Respiratory Rate 16 16 Blood Pressure [Ri ght Arm] 120/52 L Pulse Oximetry 96 Oxygen Delivery Me thod Room Air Results Labs Labs: Abnormal lab results 12/05/24 12/06/24 12/07/24 Range/Units 19:08 15:20 05:31 RBC 3.03 L (4.00-5.20) m/uL Hgb 9.9 L (12.0-16.0) gm/dL Hct 31.2 L (33.0-51.0) % MCV 103 H (80-100) fL Neut % (Auto) 81.1 H (42.0-72.0) % Lymph % (Auto) 11.6 L (20-44) % Lymph # (Auto) 0.80 L (0.90-2.90) K/uL INR 1.21 H (0.91-1.10) VBG pCO2 37 L 37 L (40-50) mmHG Sodium 134 L (135-149) mmol/L Anion Gap 4 L 4 L (7-15) mEq/L BUN 73 H 56 H (7-30) mg/dL Glucose 225 H 160 H (60-115) mg/dL Uric Acid 9.3 H (2.2-8.4) mg/dL Albumin 3.1 L (3.3-5.0) g/dL Free T3 pg/dL 2.4 L (2.5-4.3) pg/mL Diabetes panel 12/06/24 12/07/24 Range/Units 15:20 05:31 Sodium 134 L 136 (135-149) mmol/L Potassium 4.9 4.8 (3.6-5.1) mmol/L Chloride 109 109 (96-114) mmol/L Carbon Dioxide 21 23 (20-32) mmol/L BUN 73 H 56 H (7-30) mg/dL Creatinine 1.2 1.0 (0.5-1.5) mg/dL Glucose 225 H 160 H (60-115) mg/dL Calcium 9.2 9.1 (8.4-10.6) mg/dL AST 21 (12-35) U/L ALT 10 (4-35) U/L Alkaline Phosphatase 49 (40-150) U/L Total Protein 6.1 (6.0-8.3) g/dL Albumin 3.1 L (3.3-5.0) g/dL Calcium panel 12/06/24 12/07/24 Range/Units 15:20 05:31 Calcium 9.2 9.1 (8.4-10.6) mg/dL Phosphorus 3.5 (2.5-4.5) mg/dL Albumin 3.1 L (3.3-5.0) g/dL Pituitary panel 12/05/24 12/06/24 12/07/24 Range/Units 19:08 15:20 05:31 Sodium 134 L 136 (135-149) mmol/L Potassium 4.9 4.8 (3.6-5.1) mmol/L Chloride 109 109 (96-114) mmol/L Carbon Dioxide 21 23 (20-32) mmol/L BUN 73 H 56 H (7-30) mg/dL Creatinine 1.2 1.0 (0.5-1.5) mg/dL Glucose 225 H 160 H (60-115) mg/dL Calcium 9.2 9.1 (8.4-10.6) mg/dL ACTH 10.3 (7.2-63.3) pg/mL Adrenal panel 12/05/24 12/06/24 12/07/24 Range/Units 19:08 15:20 05:31 Sodium 134 L 136 (135-149) mmol/L Potassium 4.9 4.8 (3.6-5.1) mmol/L Chloride 109 109 (96-114) mmol/L Carbon Dioxide 21 23 (20-32) mmol/L BUN 73 H 56 H (7-30) mg/dL Creatinine 1.2 1.0 (0.5-1.5) mg/dL Glucose 225 H 160 H (60-115) mg/dL Calcium 9.2 9.1 (8.4-10.6) mg/dL Total Bilirubin 0.2 (0.1-1.5) mg/dL AST 21 (12-35) U/L ALT 10 (4-35) U/L Alkaline Phosphatase 49 (40-150) U/L Total Protein 6.1 (6.0-8.3) g/dL Albumin 3.1 L (3.3-5.0) g/dL ACTH 10.3 (7.2-63.3) pg/mL All other labs normal. Progress Note:A&P Assessment and plan (1) Obstipation: Status: Acute Plan The patient is a 79-year-old female admitted with likely adrenal cortical insufficiency and multiple other comorbidities with obstipation and a stool ball noted on CT scan. Fortunately this seems to have resolved. She has had multiple bowel movements in the last 2 days. There is no stool in the rectal vault on rectal exam. -recommend clotrimazole and zinc oxide barrier cream to the perianal skin. -consider nystatin powder to the intertrigal folds in addition to InterDry. -recommend a bowel regimen with fiber supplements and MiraLax daily to avoid constipation.
--- NOTE | 2024-12-07 14:57 | PC.NURSE ---
Shift Summary: patient pleasant and cooperative. Up with one assist, walker and gait belt. Vitals stable and WNL. Patient agreeable to ambulate to BSC, worked with PT/OT today. Skin care performed by staff. Damon patent with clear yellow urine. Decreased appetite, encouraged to have ensure, had yogurt as a snack before lunch. Pain managed with positioning and PRN medication, see MAR. Passing gas, x1 smear of BM when up to BSC.
--- NOTE | 2024-12-07 15:11 | PC.SOCIAL ---
Physical therapy and occupational therapy both evaluated pt. today. Pt. is moving well but will benefit from therapy while in the hospital. Pt. has been going attending outpatient therapy and will continue with this at discharge. Pt. lives in her own home with her spouse and is independent except for help with compression socks. Pt. does not drive and she and her spouse share meal prep. Pt. is independent with bathing, dressing, and medications. student services rep will meet with pt. if there is any further discharge planning needs.
[2024-12-07 17:08] LABS: Folate, Serum 15.7 ng/mL (>=5.9)
[2024-12-07] MEDS: OMEPRAZOLE 20 MG CAPSULE DR PO (17:48)
[2024-12-07] MEDS: INSULIN ASPART 100 UNIT/ML SUBCUT (20:28)
[2024-12-07] MEDS: AMITRIPTYLINE 25 MG TABLET PO (20:32)
[2024-12-07] MEDS: NYSTATIN POWDER 1 APPLIC TOPICAL (20:33)
[2024-12-07] MEDS: ACETAMINOPHEN 325 MG TABLET 975 MG PO (21:17)
--- NOTE | 2024-12-07 22:42 | PC.NURSE ---
Patient ambulates with assist of one, gait belt, and walker. I removed lymphedema wraps at HS, bilat 2+ pitting edema at this time. Patient received wound care as ordered. she has NS @ 125 infusing Left forearm PIV. PIV in Left A/C patent, Damon is patent and draining clear light [place] urine. Patient stated decreased appetite, she did not order a meal but consumed 100% ensure supplement. Blood sugars completed as ordered, Patient has 2 units coverage at bedtime for a blood sugar of 226. Patient is alert and oriented and call light appropriate.
[2024-12-08] VITALS (8 sets, daily range): BP systolic 123–144; BP diastolic 44–73; PULSE 57–84; RESP 16–18; TEMP 36.2–36.4; O2SAT 95–98
[2024-12-08] MEDS: HYDROCORTISONE SOD SUCCINATE 50 MG/ML inj IVP ×2 (00:48→06:30)
[2024-12-08 06:11] LABS: Hematocrit 30.4 % (33.0-51.0); Hemoglobin* 9.7 gm/dL (12.0-16.0); Immature Granulocytes Abs Auto 0.04 K/uL (0.00-0.30); Immature Granulocytes Pct Auto 0.6 %; Mean Corpuscular HGB Conc 32 gm/dL (32-36); Mean Corpuscular Hemoglobin 33 pg (26-34); Mean Corpuscular Volume 104 fL (80-100); RDW Coefficient of Variation % 13.4 % (11.5-15.5); Red Blood Count 2.93 m/uL (4.00-5.20); White Blood Count* 7.02 K/uL (4.50-11.00)
[2024-12-08 06:12] LABS: Lymphocytes Absolute Auto 1.00 K/uL (0.90-2.90); Slide Review Reflex No
[2024-12-08 06:24] LABS: Chloride* 109 mmol/L (96-114)
[2024-12-08 06:25] LABS: Potassium* 4.4 mmol/L (3.6-5.1); Sodium* 136 mmol/L (135-149)
[2024-12-08 06:28] LABS: Anion Gap 5 mEq/L (7-15); Blood Urea Nitrogen* 45 mg/dL (7-30); Calcium* 8.9 mg/dL (8.4-10.6); Carbon Dioxide* 22 mmol/L (20-32); Creatinine* 0.9 mg/dL (0.5-1.5); Est. Creatinine Clearance* 40.68; Estimated Glomerular Filt Rate 66 ml/min; Glucose* 153 mg/dL (60-115)
[2024-12-08] MEDS: LEVOTHYROXINE 112 MCG TABLET PO (06:30)
[2024-12-08] MEDS: CLOPIDOGREL 75 MG TABLET PO (08:40)
[2024-12-08] MEDS: ASPIRIN 81 MG TABLET EC PO (08:40)
[2024-12-08] MEDS: NYSTATIN POWDER 1 APPLIC TOPICAL ×2 (08:40→20:26)
[2024-12-08] MEDS: CLOTRIMAZOLE 1 % CREAM 1 APPLIC TOPICAL ×3 (08:40→20:29)
[2024-12-08] MEDS: EZETIMIBE 10 MG TABLET PO (08:40)
[2024-12-08] MEDS: SODIUM CHLORIDE 0.9 % (FLUSH) 10 ML SYRINGE 5 ML IVF ×2 (08:41→20:27)
[2024-12-08] MEDS: FUROSEMIDE 20 MG TABLET 40 MG PO (09:42)
[2024-12-08] MEDS: HYDROCORTISONE 10 MG TABLET 5 MG PO (11:34)
--- NOTE | 2024-12-08 13:03 | PM.IMPN1 ---
Assessment and Plan Assessment and plan (1) Acute adrenocortical insufficiency: Problem comment: - presumed on admission given hypotension, acidosis, hyponatremia/hyperkalemia, mild anemia, anorexia/weight loss, fatigue/weakness, unsteady gait, abdominal pain - 12/05: treating presumptively with IV hydrocortisone; 100mg x1 followed by 50mg q6 hours - 12/07 ACTH was lower half of normal range (this was an evening draw); renin pending. Baseline cortisol level from evening of admission when hypotension was improving, still present - was 7.5, which is suspicious for adrenal insufficiency as this would be an insufficient stress response (I would expect it to be above 18). BPs and symptoms are improving, but remain borderline low. Continue one more day of IV steroids and transition to oral tomorrow if doing well. Based on depressive symptoms in a female, she may also benefit starting DHEA replacement as an outpatient. - 12/08 BP improving, now off IVF. Transition to oral hydrocortisone today: 10 mg in am, 5 mg at noon, 2.5 mg in evening. Monitor BP and symptoms overnight. Will need confirmatory testing as outpatient. If depressive symptoms remain, may need DHEA replacement added as outpatient. Status: Acute (2) Acute hypotension: Problem comment: - possibly 2/2 adrenal insufficiency, does not appear to have any infectious process - low upon arrival to the ED 12/05, improved to 110-130s systolic on 12/06 - HOLDING home Lisinopril/HCTZ and Furosemide - not orthostatic - 12/07 improving. BPs borderline low now. Continue to hold lisinopril/HCTZ and furosemide. Continue hydrocortisone IV for now. Monitor. - 12/08 improving. Stop IVF. Restart furosemide (for fluid retention). Transition to oral hydrocortisone. Monitor. Continue to hold lisinopril/HCTZ. Status: Acute (3) Dysfunctional gallbladder: Problem comment: - known stones; EF 10% on HIDA scan, + symptoms - LFTS are normal, but does have elevated INR - continue to monitor, likely this can be addressed in coming weeks Status: Acute (4) Acquired hypothyroidism: Problem comment: - TSH suppressed with normal free T4 on 12/06, T3 wnl. - 12/06: decrease Synthroid dosing (from 137mcg -> 112mcg; would possibly benefit from higher TSH given age), follow this as an outpatient Status: Acute (5) Diabetes mellitus type 2, controlled: Problem comment: - Hemoglobin A1c 6.3 - 6.6 - HOLDING metformin, treating with SSI, follow accuchecks frequently given the hydrocortisone and hyperkalemia treatment (insulin and D50) - 12/07 BG within inpatient goal, 130s-180s. - 12/08 BG 140-230s. Restart metformin. Monitor. Status: Chronic (6) Intertrigo: Problem comment: -topical antifungals/thick barrier cream -Dr. Zavala recommended holding off on topical steroids since patient is on oral steroids - 12/08 improving. Continue topical antifungal and thick barrier cream Status: Acute (7) Thickened endometrium: Problem comment: - this may be the cause of the bleeding (rectal vs vaginal) she has seen - outpatient textile knitter referral and close follow-up appropriate Status: Acute (8) Macrocytic anemia: Problem comment: - B12 normal, folate pending - 12/07 Hgb lower today, no indication for transfusion. No further bleeding seen. Monitor. - 12/08 Hgb stable. Monitor. Status: Acute (9) History of CVA (cerebrovascular accident): Problem comment: - September 2024 - on aspirin, Plavix and ezetimibe - two transient 1-2 minute episodes of garbled speech, 1 on 09/30/2024 and 1 on 10/02/2024, with complete resolution of symptoms - repeat MRI of brain 11/14/24: Maturation of the now late subacute infarct in L basal ganglia and frontal centrum semiovale. Stable chronic cerebellar lacunar type infarcts Status: Chronic (10) Spinal stenosis of lumbar region with neurogenic claudication: Problem comment: - Chronic, followed by PCP and Neurosurgery, R>L - on nightly amitriptyline 25mg Status: Chronic (11) Hyperkalemia: Problem comment: - peaked at 6.1 on 12/06 - s/p calcium gluconate, insulin/D50, albuterol, given Lokelma 12/06 - improved to 5.3 after the above interventions - 12/07 K is 4.8 today. Resolved. Status: Resolved (12) Obstipation: Problem comment: - rectal stool ball noted on CT - admitted 12/05/24 - suppository, Miralax, enema, disimpaction, fluids - 12/07 Multiple BMs. Resolving. D/c opioids. Use APAP, lidocaine patches, ice, heat for pain Status: Resolved (13) Acute kidney injury: Problem comment: - 12/05/24: Creatinine of 2.5, BUN of 117 (noted to be normal at 1.0/35 11/15/24) - ddx: prerenal (hypotension/TR), postrenal (severe constipation with + urinary retention, Loredo placed 12/06) intrarenal (iatrogenic - on Metformin/Lasix/TIFFANY) - receiving IV fluids, repeat TTE ordered, loredo in place to monitor stricts Is/Os - 12/07 Cr improved to baseline, 1. BUN also improving, now at 56. ECHO reassuring. - 12/08 Resolved. Status: Resolved Plan - per above - ppx: Lovenox contraindicated in DEVONTE; treat with SCDs, home ASA/Plavix - continues to require inpatient management for her DEVONTE, presumed adrenal insufficiency, hyperkalemia Total Time Spent Total Time Spent: Today I spent 50 minutes seeing the patient, reviewing [facility] and EPIC notes/diagnostics/labs, discussing the care plan with our care team that includes social work, PT/OT, pharmacy, RT, senior care and documenting my impressions and plan in the medical record. Subjective Time Seen by Provider: 09: Date Seen: 12/08/24 Interval history: Angela was able to talk with her and a few friends yesterday. She says she is feeling a bit better. The pain in her buttocks is better, but she wasn't able to sleep last night due to chronic leg pain and wonders if she could try a bit of the oxycodone again for that. She also had diarrhea this morning. Exam Narrative: Exam Narrative: General: No acute distress. Awake, alert, oriented. Sitting comfortably in the bed side chair. Ambulated to with walker and standby assist. No pallor. No jaundice. Oropharynx: Clear. Mucous membranes moist. Cardiovascular: Regular rate and rhythm. No murmurs, gallops, or rubs. Respiratory: Clear to auscultation bilaterally. No wheezes or crackles. Abdomen: Bowel sounds present. Soft, nondistended, nontender. Skin: Yeasty rash in gluteal fold, mildly radha erythema, appears to be improving from what was previously reported. Extremities: 2+ bilateral lower extremity edema. Const: Vital Signs, click to edit/add: Vital Signs - 24 hr 12/07/24 14:00 12/07/24 15:00 12/07/24 15:00 Temperature 98.2 F Pulse Rate 77 Pulse Rate [Left P ulse Oximeter] 78 Respiratory Rate 16 Blood Pressure [Ri ght Arm] Pulse Oximetry Oxygen Delivery Me thod 12/07/24 16:48 12/07/24 18:00 12/07/24 19:00 Temperature 97.2 F L 97.8 F Pulse Rate 77 Pulse Rate [Left P ulse Oximeter] 73 Respiratory Rate 16 16 Blood Pressure [Ri ght Arm] 147/72 H 132/54 L Pulse Oximetry 96 [facility] 12/07/24 23:00 12/07/24 23:39 12/08/24 02:56 Temperature 96.3 F L 97.1 F L Pulse Rate 57 L Pulse Rate [Left P ulse Oximeter] 63 75 Respiratory Rate 18 16 Blood Pressure [Ri ght Arm] 138/65 123/51 L Pulse Oximetry 94 97 [facility] Room Air 12/08/24 07:00 12/08/24 07:45 12/08/24 07:45 Temperature 97.4 F L Pulse Rate 69 Pulse Rate [Left P ulse Oximeter] 84 84 Respiratory Rate 18 18 Blood Pressure [Ri ght Arm] 144/73 H Pulse Oximetry 95 [facility] 12/08/24 11:30 Temperature 97.6 F Pulse Rate Pulse Rate [Left P ulse Oximeter] 61 Respiratory Rate 18 Blood Pressure [Ri ght Arm] 132/66 Pulse Oximetry 97 [facility] Labs Labs: Laboratory Results - last 24 hr 12/05/24 12/06/24 12/08/24 19:08 05:28 05:41 WBC 7.02 RBC 2.93 L Hgb 9.7 L Hct 30.4 L MCV 104 H MCH 33 MCHC 32 RDW Coeff of Arun 13.4 Plt Count 297 Neut % (Auto) 79.3 H Lymph % (Auto) 13.7 L [place] % (Auto) 6.3 Eos % (Auto) 0.0 Baso % (Auto) 0.1 Neut # (Auto) 5.60 Lymph # (Auto) 1.00 [place] # (Auto) 0.40 Eos # (Auto) 0.00 Baso # (Auto) 0.01 Abs Immat Gran (auto) 0.04 Imm/Tot Granulo (auto) 0.6 Sodium 136 Potassium 4.4 Chloride 109 Carbon Dioxide 22 Anion Gap 5 L BUN 45 H Creatinine 0.9 Estimated Creat Clear 40.68 Estimated GFR 66 Glucose 153 H Calcium 8.9 Renin Baseline 18.4 RBC Fol Jason for Serum 15.7
[2024-12-08] MEDS: ACETAMINOPHEN 325 MG TABLET 975 MG PO ×2 (13:49→21:08)
[2024-12-08] MEDS: OMEPRAZOLE 20 MG CAPSULE DR PO (18:00)
[2024-12-08] MEDS: HYDROCORTISONE 10 MG TABLET 2.5 MG PO (18:00)
--- NOTE | 2024-12-08 18:56 | PC.NURSE ---
End of Shift ([id number]): Patient pleasant and cooperative, A&O. VSS, afebrile. SpO2 maintained above 90% on RA. Patient reports pain in her right leg this shift, managed with PRN medication, see MAR. 1A with walker and gait belt. Tolerating regular diet, denies nausea. Pt did have 1 incontinent BM this shift. Damon catheter patent and draining. ?
[2024-12-08] MEDS: METFORMIN 1,000 MG TABLET 1000 MG PO (20:23)
[2024-12-08] MEDS: AMITRIPTYLINE 25 MG TABLET PO (20:24)
[2024-12-09 02:53] VITALS: BP 141/94; PULSE 73; RESP 20; TEMP 36.6; O2SAT 93
[2024-12-09 06:28] LABS: Hematocrit 32.5 % (33.0-51.0); Hemoglobin* 10.3 gm/dL (12.0-16.0); Immature Granulocytes Abs Auto 0.10 K/uL (0.00-0.30); Immature Granulocytes Pct Auto 1.0 %; Lymphocytes Absolute Auto 3.45 K/uL (0.90-2.90); Mean Corpuscular HGB Conc 32 gm/dL (32-36); Mean Corpuscular Hemoglobin 33 pg (26-34); Mean Corpuscular Volume 103 fL (80-100); RDW Coefficient of Variation % 13.3 % (11.5-15.5); Red Blood Count 3.15 m/uL (4.00-5.20); White Blood Count* 9.72 K/uL (4.50-11.00)
[2024-12-09] MEDS: HYDROCORTISONE 10 MG TABLET PO (06:33)
[2024-12-09] MEDS: LEVOTHYROXINE 112 MCG TABLET PO (06:34)
[2024-12-09 06:36] LABS: Slide Review Reflex No
--- NOTE | 2024-12-09 06:44 | PC.NURSE ---
End of shift report [id number]: VSS. Afebrile. Pt rates pain from a 0-9 in her right?leg, prn pain meds offered and given with relief. 2+ pitting edema on BLE and nonpitting edema noted on patients bilat hands. Pts hair was washed this shift. Pt ambulates SBA with GB and W. Damon is intact and patent. Pt is resting in bed, call light within reach.?
[2024-12-09 06:52] LABS: INR 1.21 (0.91-1.10); Prothrombin Time 16.2 Seconds
[2024-12-09 06:54] LABS: Chloride* 108 mmol/L (96-114); Potassium* 3.7 mmol/L (3.6-5.1); Sodium* 139 mmol/L (135-149)
[2024-12-09 06:57] LABS: Anion Gap 5 mEq/L (7-15); Blood Urea Nitrogen* 36 mg/dL (7-30); Calcium* 9.2 mg/dL (8.4-10.6); Carbon Dioxide* 26 mmol/L (20-32); Creatinine* 1.0 mg/dL (0.5-1.5); Est. Creatinine Clearance* 40.68; Estimated Glomerular Filt Rate 58 ml/min; Glucose* 92 mg/dL (60-115)
[2024-12-09 07:00] VITALS: PULSE 61; PULSE 65; RESP 16
[2024-12-09 07:40] VITALS: BP 139/63; PULSE 65; RESP 16; TEMP 36.1; O2SAT 95
[2024-12-09] MEDS: CLOPIDOGREL 75 MG TABLET PO (09:01)
[2024-12-09] MEDS: NYSTATIN POWDER 1 APPLIC TOPICAL (09:01)
[2024-12-09] MEDS: EZETIMIBE 10 MG TABLET PO (09:02)
[2024-12-09] MEDS: ASPIRIN 81 MG TABLET EC PO (09:02)
[2024-12-09] MEDS: FUROSEMIDE 20 MG TABLET 40 MG PO (09:02)
[2024-12-09] MEDS: METFORMIN 1,000 MG TABLET 1000 MG PO (09:03)
[2024-12-09] MEDS: CLOTRIMAZOLE 1 % CREAM 1 APPLIC TOPICAL (09:03)
[2024-12-09] MEDS: SODIUM CHLORIDE 0.9 % (FLUSH) 10 ML SYRINGE 5 ML IVF (09:03)
[2024-12-09] MEDS: ACETAMINOPHEN 325 MG TABLET 975 MG PO (10:17)
[2024-12-09 11:00] VITALS: BP 149/65; PULSE 64; RESP 18; TEMP 36.3; O2SAT 96
--- NOTE | 2024-12-09 11:42 | PM.DS1 ---
DS: Providers Provider Time Seen by Provider: 09:30 Date Seen: 12/09/24 Date of admission: 12/05/24 19:07 Primary care physician: Miki Ponce MD Admitting Clinician: Tamika Johnson MD Consults: 12/05/24 17:42 Consult to Nutrition [CONS] Routine Comment: Reason for consult:: Nutritional Consult Consult to Occupational Therapy [CONS] Routine Comment: Reason(s) for OT Consult:: Evaluate and Treat Any Restrictions?:: No Restrictions Consult to Physical Therapy [CONS] Routine Comment: Reason(s) for PT Consult:: Evaluate and Treat Any Restrictions?:: No Restrictions Attending Physician on discharge: Liane Rutledge MD Date of Discharge: 12/09/24 DS: Diagnosis Discharge Diagnosis (1) Acute adrenocortical insufficiency: Status: Acute Problem details: - presumed on admission given hypotension, acidosis, hyponatremia/hyperkalemia, mild anemia, anorexia/weight loss, fatigue/weakness, unsteady gait, abdominal pain - 12/05: treating presumptively with IV hydrocortisone; 100mg x1 followed by 50mg q6 hours - 12/07 ACTH was lower half of normal range (this was an evening draw); renin pending. Baseline cortisol level from evening of admission when hypotension was improving, still present - was 7.5, which is suspicious for adrenal insufficiency as this would be an insufficient stress response (I would expect it to be above 18). BPs and symptoms are improving, but remain borderline low. Continue one more day of IV steroids and transition to oral tomorrow if doing well. Based on depressive symptoms in a female, she may also benefit starting DHEA replacement as an outpatient. - 12/08 BP improving, now off IVF. Transition to oral hydrocortisone today: 10 mg in am, 5 mg at noon, 2.5 mg in evening. Monitor BP and symptoms overnight. Will need confirmatory testing as outpatient. If depressive symptoms remain, may need DHEA replacement added as outpatient. - 12/09 BP stable, mildly elevated. Renin activity elevated at 18.4 ng/mL/hr. Did well with transition to oral hydrocortisone. Keep current dose, f/u in clinic this week to see if further adjustment is needed. F/u with Endocrinology, will also need confirmatory ACTH stim testing. (2) Acute hypotension: Status: Acute Problem details: - possibly 2/2 adrenal insufficiency, does not appear to have any infectious process - low upon arrival to the ED 12/05, improved to 110-130s systolic on 12/06 - HOLDING home Lisinopril/HCTZ and Furosemide - not orthostatic - 12/07 improving. BPs borderline low now. Continue to hold lisinopril/HCTZ and furosemide. Continue hydrocortisone IV for now. Monitor. - 12/08 improving. Stop IVF. Restart furosemide (for fluid retention). Transition to oral hydrocortisone. Monitor. Continue to hold lisinopril/HCTZ. - 12/09 Resolved. Did well with resumption of furosemide. Continue to hold lisinopril/HCTZ. F/u with PCP. (3) Dysfunctional gallbladder: Status: Acute Problem details: - known stones; EF 10% on HIDA scan, + symptoms - LFTS are normal, but does have elevated INR - continue to monitor, likely this can be addressed in coming weeks (4) Acquired hypothyroidism: Status: Acute Problem details: - TSH suppressed with normal free T4 on 12/06, T3 wnl. - 12/06: decrease Synthroid dosing (from 137mcg -> 112mcg; would possibly benefit from higher TSH given age), follow this as an outpatient (5) Diabetes mellitus type 2, controlled: Status: Chronic Problem details: - Hemoglobin A1c 6.3 - 6.6 - HOLDING metformin, treating with SSI, follow accuchecks frequently given the hydrocortisone and hyperkalemia treatment (insulin and D50) - 12/07 BG within inpatient goal, 130s-180s. - 12/08 BG 140-230s. Restart metformin. Monitor. - 12/09 BG improved after restarting metformin. d/ch home on usual regimen. (6) Intertrigo: Status: Acute Problem details: -topical antifungals/thick barrier cream -Dr. Zavala recommended holding off on topical steroids since patient is on oral steroids - 12/08 improving. Continue topical antifungal and thick barrier cream (7) Thickened endometrium: Status: Acute Problem details: - this may be the cause of the bleeding (rectal vs vaginal) she has seen - outpatient blueprint developer referral and close follow-up appropriate (8) Macrocytic anemia: Status: Acute Problem details: - B12 normal, folate pending - 12/07 Hgb lower today, no indication for transfusion. No further bleeding seen. Monitor. - 12/08 Hgb stable. Monitor. - 12/09 Hgb stable/improving. B12, folate, Iron, TIBC, %saturation are wnl. May need further outpatient w/u including gyne referral for thickened endometrial stripe, colonoscopy (9) History of CVA (cerebrovascular accident): Status: Chronic Problem details: - September 2024 - on aspirin, Plavix and ezetimibe - two transient 1-2 minute episodes of garbled speech, 1 on 09/30/2024 and 1 on 10/02/2024, with complete resolution of symptoms - repeat MRI of brain 11/14/24: Maturation of the now late subacute infarct in L basal ganglia and frontal centrum semiovale. Stable chronic cerebellar lacunar type infarcts (10) Spinal stenosis of lumbar region with neurogenic claudication: Status: Chronic Problem details: - Chronic, followed by PCP and Neurosurgery, R>L - on nightly amitriptyline 25mg (11) Hyperkalemia: Status: Resolved Problem details: - peaked at 6.1 on 12/06 - s/p calcium gluconate, insulin/D50, albuterol, given Lokelma 12/06 - improved to 5.3 after the above interventions - 12/07 K is 4.8 today. Resolved. (12) Obstipation: Status: Resolved Problem details: - rectal stool ball noted on CT - admitted 12/05/24 - suppository, Miralax, enema, disimpaction, fluids - 12/07 Multiple BMs. Resolving. D/c opioids. Use APAP, lidocaine patches, ice, heat for pain (13) Acute kidney injury: Status: Resolved Problem details: - 12/05/24: Creatinine of 2.5, BUN of 117 (noted to be normal at 1.0/35 11/15/24) - ddx: prerenal (hypotension/TR), postrenal (severe constipation with + urinary retention, Loredo placed 12/06) intrarenal (iatrogenic - on Metformin/Lasix/TIFFANY) - receiving IV fluids, repeat TTE ordered, loredo in place to monitor stricts Is/Os - 12/07 Cr improved to baseline, 1. BUN also improving, now at 56. ECHO reassuring. - 12/08 Resolved. (14) Essential hypertension: Status: Acute Problem details: hold lisinopril/HCTZ until f/u with PCP. (15) Taste sense altered: Status: Acute Problem details: -comprehensive workup with previous hospitalization. EGD, zinc levels all came back normal. symptoms/weight loss continue. could also be related to adrenal insufficiency. Some improvement after initiating hydrocortisone. F/u with PCP. DS: Summary Hospital Course Hospital Course: NOTE TO PCP: Angela has a complicated set of diagnoses for which she will need mulidisciplinary outpatient follow up: I have set her up to see Endocrinology and Gynecology. When she follows up with you this week, please adjust hydrocortisone further if needed, consider further w/u for macrocytic anemia, TSH in one month, f/u dysfunctional gallbladder, and determine if lisinopril and hydrochlorothiazide should be resumed. Thank you. Per H&P: Chief complaint: bleeding, constipation, retaining water on ankles Narrative: ADMISSION HISTORY AND PHYSICAL - HOSPITALIST Chief Complaint: bleeding/constipation/retaining water on ankles w/further clarification: weakness/fatigue/no energy; excoriated skin on her bottom and current yeast infection, bright red blood in underwear, constipated. HPI: 79 y/o with a recent hx of a stroke (left basal ganglia and guerin radiata infarcts) presents to our ED with fatigue, weakness, BRB, and just feeling lousy/weak. 2-3 months of declining health - highlighted by 9 ER visits (two of which were overnight obs) and [address] Ponce. 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 in the setting of diabetes, HTN, obesity, hypothyroidism, GERD. She has never had heart issues other than HTN. she has never had CHF or DKA or HHS, no hx of cancer, no history of mental health disorder. Does not drink, smoke, vape or use recreational drugs. 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 Hypotension treated with fluids; no ACS identified, no Heart failure or sepsis identified. Handed off to the Hospitalist with hypotension, elevated potassium, worsening DEVONTE, possible bleeding Arrival to the floor: Hypotension resolved, not orthostatic, on room air, good historian with flat/slightly sad deposition. Angela was treated presumptively with IV hydrocortisone along with treatements for hyperkalemia, as above. Hypotension, DEVONTE, and hyperkalemia resolved. She was successfully transitioned to oral hydrocortisone and resumed her oral furosemide. I have continued to hold her lisinopril/HCTZ until she is seen by her PCP. Please see diagnoses above for further details. Time Spent with Patient Time attestation: Total time spent providing and/or coordinating discharge services: Today I spent 50 minutes seeing and discharging the patient, reviewing Expanse and EPIC notes/diagnostics/labs, discussing the care plan with our care team that includes social work, PT/OT, pharmacy, RT, fpc and documenting my impressions and plan in the medical record. Exam Narrative: Exam Narrative: General: No acute distress. Awake, alert, oriented. Sitting comfortably in the bed side chair. No pallor. No jaundice. Cardiovascular: Regular rate and rhythm. No murmurs, gallops, or rubs. Respiratory: Clear to auscultation bilaterally. No wheezes or crackles. Abdomen: Bowel sounds present. Soft, nondistended, nontender. Extremities: 1-2+ bilateral lower extremity edema. Const: Vital Signs, click to edit/add: Vital Signs - 24 hr 12/08/24 15:00 12/08/24 15:00 12/08/24 15:00 Temperature 97.6 F Pulse Rate 67 Pulse Rate [Left P ulse Oximeter] 64 64 Respiratory Rate 16 16 Blood Pressure [Ri ght Arm] 144/69 H Pulse Oximetry 98 Oxygen Delivery Me thod Room Air 12/08/24 19:00 12/08/24 19:49 12/08/24 23:00 Temperature 97.3 F L 97.6 F Pulse Rate Pulse Rate [Left P ulse Oximeter] 74 74 70 Respiratory Rate 18 18 16 Blood Pressure [Ri ght Arm] 136/56 L 126/44 L Pulse Oximetry 98 96 Oxygen Delivery Me thod Room Air Room Air 12/08/24 23:00 12/09/24 02:53 12/09/24 07:00 Temperature 97.8 F Pulse Rate 57 L 61 Pulse Rate [Left P ulse Oximeter] 73 Respiratory Rate 20 Blood Pressure [Ri ght Arm] 141/94 H Pulse Oximetry 93 Oxygen Delivery Me thod Room Air 12/09/24 07:00 12/09/24 07:40 12/09/24 11:00 Temperature 97.0 F L 97.4 F L Pulse Rate Pulse Rate [Left P ulse Oximeter] 65 65 64 Respiratory Rate 16 16 18 Blood Pressure [Ri ght Arm] 139/63 149/65 H Pulse Oximetry 95 96 Oxygen Delivery Me thod Room Air Room Air DS: Data Data Completed and Pending Completed studies during hospitalization: Blood cultures x2 from 12/05/2024, no growth after 72 hours. 12/05/2024 EKG: Sinus rhythm with premature atrial complexes and premature ventricular complexes or fusion complexes, 82 beats per minute, nonspecific intraventricular block. A 11/28/2024 echocardiogram: Normal left ventricular size, normal wall thickness, normal global systolic function, calculated EF of 69%. Echo contrast was administered to enhance visualization of all left ventricular segments. Right ventricular cavity size is normal, global systolic RV function is normal. Normal left atrium size. The aortic valve is normal, trileaflet and sclerotic, no stenosis and no regurgitation. The mitral valve is normal, mild mitral regurgitation. Tricuspid valve is normal, mild tricuspid regurgitation. No pericardial effusion. Ordering Physician: Srinivasan Joyce M.D. Date of Service: 12/05/24 Procedure(s): XR chest 1V portable Accession Number(s): [id number] cc: Miki Ponce M.D.; Srinivasan Joyce M.D.~ For Patients: As a result of the 21st Century Cures Act, medical imaging exams and procedure reports are released immediately into your electronic medical record. You may view this report before your referring provider. If you have questions, please contact your health care provider. INDICATION: Exertional dyspnea COMPARISON: CT abdomen pelvis 11/02/2024 TECHNIQUE: 1 view chest radiograph. FINDINGS: Devices: None. Lung volumes are moderate. Calcified granuloma left lower lobe is unchanged. No focal consolidation. Prominent pulmonary vascular markings. No definite peripheral septal lines. No pleural effusion. No pneumothorax. No pneumomediastinum. Heart size is borderline enlarged for volumes and techniques.. Bones: No acute findings. IMPRESSION: Mild pulmonary vascular congestion without definite edema. Dictated by Rachelle Whaley MD @ 12/05/2024 3:21:02 PM (Electronically Signed) Ordering Physician: Srinivasan Joyce M.D. Date of Service: 12/05/24 Procedure(s): CT abdomen pelvis wo con Accession Number(s): [id number] cc: Miki Ponce M.D.; Srinivasan Joyce M.D.~ For Patients: As a result of the Cures Act, medical imaging exams and procedure reports are released immediately into your electronic medical record. You may view this report before your referring provider. If you have questions, please contact your health care provider. INDICATION: LOWER ABD PAIN. HYPOTENSION, BLEEDING, CONSTIPATION, RETAINING WATER IN LEGS. TECHNIQUE: CT abdomen and pelvis without contrast. COMPARISON: CT abdomen pelvis dated 11/02/2024. FINDINGS: Lower chest: Unchanged few scattered pulmonary micro nodules and left lower lobe calcified granuloma. Noncontrast technique limits solid organ evaluation. Liver: Scattered calcified granulomata. Gallbladder and bile ducts: Redemonstrated cholelithiasis without discrete evidence of acute cholecystitis. No biliary dilatation. Pancreas: Unremarkable. No mass or inflammation. Spleen: Scattered calcified granulomata. Adrenal glands: Normal in size. No nodules. Kidneys: No hydroureteronephrosis. Renal cortical hypodensities are not well evaluated on this noncontrast examination. 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 GI tract: Prominent colonic stool burden, with a rectal stool ball that measures 6.6 cm in diameter. The bowel is otherwise normal in caliber without evidence of obstruction normal appendix. Vasculature: Abdominal aorta is normal in caliber. Lymph nodes: No lymphadenopathy. Peritoneum/Abdominal Wall: Rectus diastasis no sign of mass or infiltration. No free air or significant free fluid. Pelvis: The endometrial thickening noted on the prior contrast-enhanced CT abdomen pelvis is not well evaluated on this examination. Bones: Bilateral total hip arthroplasties. Multilevel degenerative changes throughout the visualized thoracolumbar spine with severe bony spinal canal stenosis at L2-3, similar to prior. IMPRESSION: 1. Prominent colonic stool burden, with a rectal stool ball that measures 6.6 cm in diameter, compatible with the reported history of constipation. 2. 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 Please note that all CT scans at this facility use dose modulation, iterative reconstruction, and/or weight-based dosing when appropriate to reduce radiation dose to as low as reasonably achievable. Dictated by Kentrell Diamond MD @ 12/05/2024 4:50:48 PM (Electronically Signed) Labs on day of discharge: Labs from last 24 hours 12/09/24 12/09/24 Unknown 06:15 WBC 9.72 RBC 3.15 L Hgb 10.3 L Hct 32.5 L MCV 103 H MCH 33 MCHC 32 RDW Coeff of Arun 13.3 Plt Count 321 Neut % (Auto) 53.8 Lymph % (Auto) 35.5 Coleman % (Auto) 8.3 Eos % (Auto) 1.2 Baso % (Auto) 0.2 Neut # (Auto) 5.22 Lymph # (Auto) 3.45 H Coleman # (Auto) 0.80 Eos # (Auto) 0.12 Baso # (Auto) 0.02 Abs Immat Gran (auto) 0.10 Imm/Tot Granulo (auto) 1.0 INR 1.21 H Sodium 139 Potassium 3.7 Chloride 108 Carbon Dioxide 26 Anion Gap 5 L BUN 36 H Creatinine 1.0 Estimated Creat Clear 40.68 Estimated GFR 58 Glucose 92 Calcium 9.2 Stl C. diff Tox B Gene Pending Stl C. diff [id number] Pending Preliminary micro results at discharge 12/05/24 16:40 Blood Culture - Preliminary Blood NO GROWTH AFTER 72 HOURS 12/05/24 14:55 Blood Culture - Preliminary Blood NO GROWTH AFTER 72 HOURS Discharge Plan Discharge Disposition: Home, Self-Care Date of Admission: 12/05/24 19:07 Attending Provider on Discharge: Liane Rutledge Primary Care Provider: Miki Ponce Condition: Guarded Anticipated Discharge Date/Time: 12/09/24 12:05 Discharge Medications: New clotrimazole 1 % Cream 1 applic topical TID Qty: 15 0RF levothyroxine 112 mcg Tablet 112 mcg PO DAILY@0700 Qty: 30 0RF hydrocortisone 5 mg tablet 5 mg PO QID Qty: 120 0RF Rx Instructions: 10 mg orally at 6 am, then 5 mg orally at noon, and 2.5 mg orally at 4 pm. lidocaine 5 % Adhesive Patch,Medicated 1 patch transdermal Q24H PRNQty: 30 0RF nystatin 100,000 unit/gram Powder 1 applic topical BID Qty: 30 0RF Rx Instructions: Apply to abdominal folds oxycodone 5 mg Tablet 2.5 mg PO HS PRNQty: 15 0RF Continued ezetimibe [Zetia] 10 mg tablet 10 mg PO DAILY Qty: 90 3RF furosemide [Lasix] 20 mg tablet 40 mg PO QAM Rx Instructions: 12/05/24, PATIENT TAKING 20 MG BID CURRENTLY, SHE SAYS IT HAS BEEN CHANGING PER MD ORDERS RECENTLY. docusate sodium 50 mg capsule 50 mg PO BID Qty: 60 0RF amitriptyline 25 mg tablet 25 mg PO QPM metformin 1,000 mg tablet 1,000 mg PO BID Rx Instructions: 12/05/24 PATIENT NOT CURRENTLY TAKING DUE TO LOSS OF APPETITE omeprazole 20 mg capsule,delayed release(DR/EC) 20 mg PO QPM ergocalciferol (vitamin D2) 1,250 mcg (50,000 unit) capsule 1,250 mcg PO WE aspirin 81 mg tablet 81 mg PO DAILY Qty: 90 0RF clopidogrel 75 mg tablet 75 mg PO DAILY Qty: 30 2RF Held lisinopril-hydrochlorothiazide 20-25 mg tablet 1 tab PO DAILY Qty: 90 3RF Hold Instructions: Resume on 12/10/24. Hold until seen by your PCP Discontinued nystatin 100,000 unit/gram cream 1 applic topical BID Qty: 30 1RF levothyroxine 137 mcg tablet 137 mcg PO DAILY Discharge Orders: Discharge Order (Routine); Ordered 12/09/24 Ordered By: Liane Rutlegde Patient Education: Levothyroxine (By mouth), Betamethasone/Clotrimazole (On the skin), Nystatin (On the skin), Lidocaine (On the skin), Oxycodone, Rapid Release (By mouth), Hydrocortisone (By mouth), Hypothyroidism (DC), [place] Disease (DC) Additional Instructions: Endocrinology 2-4 weeks. Gynecology 1-2 weeks. Outpatient OT for lymphedema wraps. Elevate legs 12 hours out of every 24. Try to stay active when not elevating legs. Activity Level: Activity as Tolerated and Use Walker Discharge Diet: 2 gm Sodium Follow Up Appointments: Miki Ponce MD [Primary Care Provider, Internal Medicine] - 12/12/24 8:00 am Referral Note: Forms: Patient Belongings, My[facility] Info Instructions
[2024-12-09 12:04] LABS: C.Difficile Negative (Negative); CDIFFEPI 027 PRESUMPTIVE NEGATIVE (Negative)
[2024-12-09] MEDS: HYDROCORTISONE 10 MG TABLET 5 MG PO (12:31)
--- NOTE | 2024-12-09 15:27 | PC.NURSE ---
Discharge: Patient pleasant and cooperative, A&O. VSS, afebrile. SpO2 maintained above 90% on RA. Patient reports pain in her right leg this shift, managed with PRN medication, see MAR. SBA with walker and gait belt. Tolerating regular diet. IV removed with tip intact. Discharge instructions provided, all questions answered. D/C to home with
== END 2024-12-09 14:30 | disposition home or self-care (01) | DRG 644 ==
LOC: ED 17:16 → MEDSURG 17:26
PROVIDERS: Family Medicine; Admitting Provider Family Medicine; Emergency Provider Family Medicine; PCP Internal Medicine; Visit Provider Family Medicine
DX: E27.40 Unspecified adrenocortical insufficiency (principal); E87.1 Hypo-osmolality and hyponatremia; N17.9 Acute kidney failure, unspecified; E87.5 Hyperkalemia; I95.9 Hypotension, unspecified; K59.00 Constipation, unspecified; L30.4 Erythema intertrigo; R43.9 Unspecified disturbances of smell and taste; I27.20 Pulmonary hypertension, unspecified; I69.328 Other speech and language deficits following cerebral infarction; I69.341 Monoplegia of lower limb following cerebral infarction affecting right dominant side; M48.062 Spinal stenosis, lumbar region with neurogenic claudication; Z79.84 Long term (current) use of oral hypoglycemic drugs; Z79.82 Long term (current) use of aspirin; E66.9 Obesity, unspecified; Z68.37 Body mass index [BMI] 37.0-37.9, adult; I12.9 Hypertensive chronic kidney disease with stage 1 through stage 4 chronic kidney disease, or unspecified chronic kidney disease; E11.22 Type 2 diabetes mellitus with diabetic chronic kidney disease; N18.31 Chronic kidney disease, stage 3a; D53.9 Nutritional anemia, unspecified; Z79.4 Long term (current) use of insulin; I08.1 Rheumatic disorders of both mitral and tricuspid valves; K80.20 Calculus of gallbladder without cholecystitis without obstruction; E03.9 Hypothyroidism, unspecified; E78.5 Hyperlipidemia, unspecified; R60.0 Localized edema; B37.9 Candidiasis, unspecified; R14.0 Abdominal distension (gaseous)
CPT/HCPCS: 36415; 71045; 74176; 78227; 80048; 80053; 80069; 80076; 81001; 82024; 82533; 82550; 82565; 82728; 82746; 82803; 82962; 82977; 83036; 83540; 83550; 83605; 83690; 83735; 83880; 84100; 84132; 84145; 84244; 84439; 84443; 84480; 84481; 84484; 84550; 85018; 85025; 85610; 85730; 86140; 86850; 86900; 86901; 87040; 87493; 87631; 93005; 93306; 93970; 94640; 94761; 97110; 97116; 97161; 97165; 97530; 97535; 99284; 99285; 99291; A9270; A9537; J0613; J1171; J1720; J1815; J2805; J7030; Q9957

== ENCOUNTER 2024-12-12 08:45 | Outpatient (CLI) | payer MEDICARE, OTHER, SELFPAY | END 2024-12-12 08:46 | disposition home or self-care (01) | LOC: NFLDREF 08:46 | PROVIDERS: PCP Internal Medicine; Visit Provider Internal Medicine | DX: E11.9 Type 2 diabetes mellitus without complications (principal) | CPT/HCPCS: 80048 ==

== ENCOUNTER 2025-01-23 08:21 | Outpatient (CLI) | payer MEDICARE, OTHER, SELFPAY | END 2025-01-23 08:22 | disposition home or self-care (01) | LOC: NFLDREF 08:22 | PROVIDERS: PCP Internal Medicine; Visit Provider Internal Medicine | DX: E11.9 Type 2 diabetes mellitus without complications (principal) | CPT/HCPCS: 80053 ==